=== PATIENT | female | born 1940 | race Caucasian/White ===

== ENCOUNTER 2016-04-27 00:31 | Inpatient (IN) | payer MEDICARE, BC ==
[2016-04-27 01:55] LABS: Anisocytosis Slight; Basophils % (A) 0 %; CH 21.6; CHCM 27.7; Eosinophils % (A) 0 %; HCT 22.9 % (34.0-46.0); HDW 3.64; Hypochromasia Marked; Luc # (Auto) 0.34; Luc % (Auto) 3; Lymphocytes # (A) 1.8 k/uL (1.0-4.8); Lymphocytes % (A) 13 %; MCH 22.4 pg (25.0-35.0); MCHC 28.7 g/dL (31.0-37.0); MCV 78.2 fL (80.0-100.0); Mean Platelet Volume 7.6; Microcytosis Slight; Monocytes # (A) 0.9 k/uL (0-1.0); Monocytes % (A) 7 %; Neutrophils # (A) 10.4 k/uL (1.3-7.7); Neutrophils % (A) 77 %; Poikilocytosis Slight; RBC 2.93 m/uL (3.80-5.40); RDW 16.9 % (11.5-15.5); WBC 13.5 k/uL (3.8-10.6); WBC (Perox) 13.64
[2016-04-27 02:03] LABS: HGB 6.6 gm/dL (11.4-16.0)
[2016-04-27 02:07] LABS: Calcium 8.1 mg/dL (8.4-10.2); Magnesium 1.7 mg/dL (1.6-2.3); Total Bilirubin 0.4 mg/dL (0.2-1.3); Total Protein 6.1 g/dL (6.3-8.2)
[2016-04-27 02:08] LABS: INR 1.9 (<1.1); Prothrombin Time 18.1 sec (9.0-12.0)
[2016-04-27 02:10] LABS: Partial Thromboplastin Time 21.7 sec (22.0-30.0)
[2016-04-27] MEDS ORDERED: NALOXONE 0.4 MG/ML 1 ML VIAL IV PRN (04:56)
[2016-04-27] MEDS ORDERED: ACETAMINOPHEN SUPPOSITORY 650 MG SUPP RECTAL PRN (04:56)
[2016-04-27] MEDS ORDERED: PHYTONADIONE ORAL 5 MG/5 ML ORAL.SYRG PO STA (05:03)
--- NOTE | 2016-04-27 05:03 | ED ---
SOB HPI - General Chief Complaint: Shortness of Breath Stated Complaint: low hemoglobin,ANISHA Time Seen by Provider: 04/27/16 00:47 Source: patient Mode of arrival: EMS Limitations: no limitations - History of Present Illness Initial Comments: This patient is 76-year-old woman who is transferred here from the [facility]. The patient had gone there earlier tonight to be evaluated for worsening shortness of breath and generalized fatigue. The patient had workup there that revealed the presence of some GI bleeding, significant anemia with hemoglobin 6.6, possibly of pneumonia. Patient was transferred here as there are no ICU beds available there. When I interview the patient she reports that she had been having some fevers and chills as well as shortness of breath. She denies chest pain which she did have an occasional nonproductive cough. The workup at the other hospital revealed the some leukocytosis with white count 17, 000, anemia with hemoglobin 6.1, and elevated INR 2.0, and lactic acidosis at 3.3. Case was reportedly discussed with her physician and she was transferred here to be admitted. Patient states that she feels minimally improved. Complaint: shortness of breath -: days(s) - Related Data Home Medications Medication Instructions Recorded Confirmed Atenolol [Tenormin] 25 mg PO DAILY 06/01/14 04/27/16 Benazepril HCl [Lotensin] 20 mg PO DAILY 06/01/14 04/27/16 Clopidogrel Bisulfate [Plavix] 75 mg PO DAILY 06/01/14 04/27/16 Insulin NPH Hum/Reg Insulin Hm 70 unit SQ HS 06/01/14 04/27/16 [NovoLIN 70-30 100 UNIT/ML VIAL] Insulin NPH Hum/Reg Insulin Hm 104 unit SQ AC-BRKFST 06/01/14 04/27/16 [NovoLIN 70-30 100 UNIT/ML VIAL] Simvastatin [Zocor] 20 mg PO DAILY 06/01/14 04/27/16 Verapamil HCl [Calan] 240 mg PO DAILY 06/01/14 04/27/16 Previous Rx's Medication Instructions Recorded Etodolac [Lodine] 400 mg PO BID #14 tablet 06/01/14 Allergies Allergy/AdvReac Type Severity Reaction Status Date / Time Penicillins Allergy Rash/Hives Verified 04/27/16 01:09 Review of Systems ROS Statement: Those systems with pertinent positive or pertinent negative responses have been documented in the HPI. ROS Other: All systems not noted in ROS Statement are negative. Constitutional: Reports: fever, chills ENT: Denies: throat pain Respiratory: Reports: cough, dyspnea. Denies: wheezes, hemoptysis Cardiovascular: Reports: dyspnea on exertion, edema. Denies: chest pain, palpitations, syncope Gastrointestinal: Reports: abdominal pain, melena. Denies: nausea, vomiting, diarrhea, constipation Genitourinary: Denies: dysuria, hematuria Musculoskeletal: Denies: back pain Skin: Denies: rash Neurological: Reports: weakness (Generalized). Denies: headache, numbness Hematological/Lymphatic: Denies: easy bleeding Past Medical History Past Medical History: Asthma, CVA/TIA, Diabetes Mellitus, Hyperlipidemia, Hypertension History of Any Multi-Drug Resistant Organisms: None Reported Past Surgical History: Back Surgery, Hysterectomy Additional Past Surgical History / Comment(s): cyst removed from breast Past Psychological History: No Psychological Hx Reported Smoking Status: Current every day smoker Past Alcohol Use History: None Reported Past Drug Use History: None Reported General Exam Limitations: no limitations General appearance: alert, in no apparent distress, obese Head exam: Present: atraumatic Eye exam: Present: normal appearance, other (Pallor). Absent: scleral icterus, conjunctival injection ENT exam: Present: mucous membranes dry Neck exam: Present: normal inspection Respiratory exam: Present: normal lung sounds bilaterally. Absent: respiratory distress, wheezes, rales, rhonchi Cardiovascular Exam: Present: regular rate, normal rhythm, normal heart sounds. Absent: systolic murmur, diastolic murmur, rubs, gallop GI/Abdominal exam: Present: soft. Absent: distended, tenderness, guarding, rebound, mass Extremities exam: Present: normal inspection, normal capillary refill, pedal edema. Absent: calf tenderness Back exam: Present: normal inspection. Absent: CVA tenderness (R), CVA tenderness (L) Neurological exam: Present: alert Skin exam: Present: warm, dry, intact, pallor. Absent: rash Course Vital Signs 04/27/16 04/27/16 04/27/16 00:35 02:45 03:00 Temperature 99.9 F H 98.7 F Pulse Rate 90 106 H 94 Pulse Rate [ Bilateral Radial] Respiratory 24 24 24 Rate Blood Pressure 138/65 122/49 109/53 Blood Pressure [Right Arm] O2 Sat by Pulse 97 97 96 Oximetry 04/27/16 04/27/16 04/27/16 04:03 04:18 04:33 Temperature 97.6 F 97.4 F L 97.5 F L Pulse Rate 86 92 93 Pulse Rate [ Bilateral Radial] Respiratory 20 24 22 Rate Blood Pressure 112/60 124/71 122/58 Blood Pressure [Right Arm] O2 Sat by Pulse 97 97 Oximetry 04/27/16 04/27/16 04/27/16 04:48 05:18 05:45 Temperature 97.4 F L 97.2 F L 97.7 F Pulse Rate 93 90 101 H Pulse Rate [ Bilateral Radial] Respiratory 22 22 22 Rate Blood Pressure 121/58 123/53 124/60 Blood Pressure [Right Arm] O2 Sat by Pulse 97 97 Oximetry 04/27/16 05:53 Temperature 97.5 F L Pulse Rate Pulse Rate [ 88 Bilateral Radial] Respiratory 16 Rate Blood Pressure Blood Pressure 147/63 [Right Arm] O2 Sat by Pulse 98 Oximetry Medical Decision Making - Medical Decision Making Patient 76-year-old woman transferred from outside hospital to be admitted for GI bleeding, anemia, and lactic acidosis. Case discussed with admitting physician as well as the professional nursing assistant on consultation. Patient to have transfusion. Also GI consultation and PPI. Given patient's GI bleed and anemia Coumadin held and vitamin K administered. - Lab Data Result diagrams: 04/27/16 01:40 04/27/16 01:40 Lab Results 04/27/16 04/27/16 04/27/16 Range/Units 01:40 01:40 01:40 WBC 13.5 H (3.8-10.6) k/uL RBC 2.93 L (3.80-5.40) m/uL Hgb 6.6 L* (11.4-16.0) gm/dL Hct 22.9 L (34.0-46.0) % MCV 78.2 L (80.0-100.0) fL MCH 22.4 L (25.0-35.0) pg MCHC 28.7 L (31.0-37.0) g/dL RDW 16.9 H (11.5-15.5) % Plt Count 279 (150-450) k/uL Neutrophils % 77 % Lymphocytes % 13 % Monocytes % 7 % Eosinophils % 0 % Basophils % 0 % Neutrophils # 10.4 H (1.3-7.7) k/uL Lymphocytes # 1.8 (1.0-4.8) k/uL Monocytes # 0.9 (0-1.0) k/uL Eosinophils # 0.0 (0-0.7) k/uL Basophils # 0.0 (0-0.2) k/uL Hypochromasia Marked Poikilocytosis Slight Anisocytosis Slight Microcytosis Slight PT (9.0-12.0) sec INR (<1.1) APTT (22.0-30.0) sec Sodium 139 (137-145) mmol/L Potassium 4.0 (3.5-5.1) mmol/L Chloride 99 (98-107) mmol/L Carbon Dioxide 28 (22-30) mmol/L Anion Gap 12 mmol/L BUN 20 H (7-17) mg/dL Creatinine 1.30 H (0.52-1.04) mg/dL Est GFR (MDRD) Af Amer 48 (>60 ml/min/1.73 sqM) Est GFR (MDRD) Non-Af 40 (>60 ml/min/1.73 sqM) Glucose 277 H (74-99) mg/dL Plasma Lactic Acid Good (0.7-2.0) mmol/L Calcium 8.1 L (8.4-10.2) mg/dL Magnesium 1.7 (1.6-2.3) mg/dL Total Bilirubin 0.4 (0.2-1.3) mg/dL AST 34 (14-36) U/L ALT 61 H (9-52) U/L Alkaline Phosphatase 67 (38-126) U/L Troponin I (0.000-0.034) ng/mL Total Protein 6.1 L (6.3-8.2) g/dL Albumin 3.1 L (3.5-5.0) g/dL Blood Type A Positive Blood Type Confirm Blood Type Recheck CABO Indicated Antibody Screen NEGATIVE Crossmatch See Detail Spec Expiration Date 04/30/2016 - 233904/27/16 04/27/16 04/27/16 Range/Units 01:40 01:40 01:40 WBC (3.8-10.6) k/uL RBC (3.80-5.40) m/uL Hgb (11.4-16.0) gm/dL Hct (34.0-46.0) % MCV (80.0-100.0) fL MCH (25.0-35.0) pg MCHC (31.0-37.0) g/dL RDW (11.5-15.5) % Plt Count (150-450) k/uL Neutrophils % % Lymphocytes % % Monocytes % % Eosinophils % % Basophils % % Neutrophils # (1.3-7.7) k/uL Lymphocytes # (1.0-4.8) k/uL Monocytes # (0-1.0) k/uL Eosinophils # (0-0.7) k/uL Basophils # (0-0.2) k/uL Hypochromasia Poikilocytosis Anisocytosis Microcytosis PT 18.1 H (9.0-12.0) sec INR 1.9 (<1.1) APTT 21.7 L (22.0-30.0) sec Sodium (137-145) mmol/L Potassium (3.5-5.1) mmol/L Chloride (98-107) mmol/L Carbon Dioxide (22-30) mmol/L Anion Gap mmol/L BUN (7-17) mg/dL Creatinine (0.52-1.04) mg/dL Est GFR (MDRD) Af Amer (>60 ml/min/1.73 sqM) Est GFR (MDRD) Non-Af (>60 ml/min/1.73 sqM) Glucose (74-99) mg/dL Plasma Lactic Acid Good 2.2 H* (0.7-2.0) mmol/L Calcium (8.4-10.2) mg/dL Magnesium (1.6-2.3) mg/dL Total Bilirubin (0.2-1.3) mg/dL AST (14-36) U/L ALT (9-52) U/L Alkaline Phosphatase (38-126) U/L Troponin I <0.012 (0.000-0.034) ng/mL Total Protein (6.3-8.2) g/dL Albumin (3.5-5.0) g/dL Blood Type Blood Type Confirm Blood Type Recheck Antibody Screen Crossmatch Spec Expiration Date 04/27/16 Range/Units 03:02 WBC (3.8-10.6) k/uL RBC (3.80-5.40) m/uL Hgb (11.4-16.0) gm/dL Hct (34.0-46.0) % MCV (80.0-100.0) fL MCH (25.0-35.0) pg MCHC (31.0-37.0) g/dL RDW (11.5-15.5) % Plt Count (150-450) k/uL Neutrophils % % Lymphocytes % % Monocytes % % Eosinophils % % Basophils % % Neutrophils # (1.3-7.7) k/uL Lymphocytes # (1.0-4.8) k/uL Monocytes # (0-1.0) k/uL Eosinophils # (0-0.7) k/uL Basophils # (0-0.2) k/uL Hypochromasia Poikilocytosis Anisocytosis Microcytosis PT (9.0-12.0) sec INR (<1.1) APTT (22.0-30.0) sec Sodium (137-145) mmol/L Potassium (3.5-5.1) mmol/L Chloride (98-107) mmol/L Carbon Dioxide (22-30) mmol/L Anion Gap mmol/L BUN (7-17) mg/dL Creatinine (0.52-1.04) mg/dL Est GFR (MDRD) Af Amer (>60 ml/min/1.73 sqM) Est GFR (MDRD) Non-Af (>60 ml/min/1.73 sqM) Glucose (74-99) mg/dL Plasma Lactic Acid Good (0.7-2.0) mmol/L Calcium (8.4-10.2) mg/dL Magnesium (1.6-2.3) mg/dL Total Bilirubin (0.2-1.3) mg/dL AST (14-36) U/L ALT (9-52) U/L Alkaline Phosphatase (38-126) U/L Troponin I (0.000-0.034) ng/mL Total Protein (6.3-8.2) g/dL Albumin (3.5-5.0) g/dL Blood Type Blood Type Confirm A Positive Blood Type Recheck Antibody Screen Crossmatch Spec Expiration Date - EKG Data -: EKG Interpreted by Me EKG shows normal: axis (Normal), intervals (Normal), QRS complexes (Low voltage QRS complex), ST-T waves When compared to previous EKG there are: other (EKG shows atrial fibrillation with a rate approximately 95 bpm) Disposition Clinical Impression: GI bleeding, Anemia, Lactic acidosis, Elevated INR Disposition: ADMITTED IP TO THIS HOSP Condition: Serious
[2016-04-27 06:06] LABS: Glucose,Whole Blood 222 mg/dL (75-99)
[2016-04-27] MEDS: INSULIN LISPRO (humaLOG) 300 UNIT/3 ML VIAL SQ SCH ×4 (07:03→20:17)
[2016-04-27] MEDS: SODIUM CHLORIDE 0.9% 1,000 ML IV SCH ×3 (07:03→20:17)
[2016-04-27 07:50] LABS: Appearance,Urine Clear (Clear); Bilirubin,Urine Negative (Negative); Glucose,Urine (UA) Negative (Negative); Ketones,Urine Negative (Negative); Leukocyte Esterase,Urine Negative (Negative); Nitrite,Urine Negative (Negative); Protein,Urine Trace (Negative); Specific Gravity,Urine 1.014 (1.001-1.035); UA Billing (MACRO vs. MICRO) CHEM; Urobilinogen,Urine <2.0 mg/dL (<2.0)
[2016-04-27 08:14] LABS: Anisocytosis Slight; CHCM 27.4; HCT 26.3 % (34.0-46.0); HDW 4.44; HGB 7.3 gm/dL (11.4-16.0); Hypochromasia Marked; MCH 22.4 pg (25.0-35.0); MCV 80.9 fL (80.0-100.0); Poikilocytosis Moderate; RBC 3.25 m/uL (3.80-5.40); RDW 16.1 % (11.5-15.5)
[2016-04-27 08:18] LABS: MCHC 27.7 g/dL (31.0-37.0)
[2016-04-27] MEDS ORDERED: LISINOPRIL 20 MG TAB PO SCH (09:00)
[2016-04-27] MEDS ORDERED: ATENOLOL 25 MG TAB PO SCH (09:00)
[2016-04-27] MEDS ORDERED: CLOPIDOGREL 75 MG TAB PO SCH (09:00)
[2016-04-27] MEDS ORDERED: VERAPAMIL SR 240 MG TABLET.ER PO SCH (09:00)
[2016-04-27] MEDS ORDERED: ATORVASTATIN 10 MG TAB PO SCH (09:00)
[2016-04-27] MEDS ORDERED: METOPROLOL SUCCINATE (ER) 100 MG TAB.ER.24H PO SCH (09:30)
--- NOTE | 2016-04-27 09:47 | P.CONS ---
History of Present Illness - Reason for Consult Consult date: 04/27/16 GI bleed anemia Requesting physician: Geoffrey Veliz - History of Present Illness 76-year-old female patient of Dr. Bland with a past medical history of diabetes mellitus, nicotine cigarette dependency, atrial fibrillation Coumadin monitoring , hyperlipidemia, hypertension, COPD O2 dependent 3 L, asthma, left hip stimulator, melanoma, and CVA/TIA. Presents with shortness of breath, mild mid sternal chest discomfort, and generalized fatigue with evidence of anemia hemoglobin 6.6. MCV 78. INR 1.9. BUN 20 creatinine 1.3. About 3 months ago she was advised to follow up with outpatient gastroenterology in regards to positive Hemoccult stool testing and anemia. She was recently evaluated at [facility] about 2 months ago in regards to anemia and underwent an EGD evaluation which she states was unremarkable. Last colonoscopy to her memory was about 4-5 years ago. She denies overt bleeding such as hematemesis, hematochezia, or melena. Denies excessive aspirin or NSAID usage. Intermittent lower crampy abdominal pain over the last few days with occasional dyspepsia. Upon review of previous medical records average hemoglobin range between 10-11 over the last 18 months. Review of Systems Constitutional: Denies fever, chills, sweats, weight gain, or loss. HEENT: Negative for migraines, blurred vision or loss, earaches, drainage, tinnitus, oral mucosal lesions, dysphagia, or odynophagia. CARDIAC: Atrial fibrillation. Cigarette dependency. Hyperlipidemia. Hypertension. Denies palpitations. Chest discomfort see HPI. RESPIRATORY: Asthma. COPD with home O2 dependent 3 L. shortness of breath see HPI, denies hemoptysis, cough, or sputum production. GI: See HPI for pertinent findings. : Negative for hematuria, urgency, frequency, polyuria, or dysuria. GYNc: Denies possibility of . Negative vaginal discharge. MUSCULOSKELETAL: Pain stimulator left hip. Negative for muscle aches, swelling , arthritis, and arthralgias. NEUROLOGIC: CVA-TIA.. ENDOCRINE: Negative for thyroid problems. SKIN: Melanoma 2. itching. PSYCHIATRIC: Negative history for depression and anxiety All systems: negative (See HPI) Past Medical History Past Medical History: Asthma, CVA/TIA, Diabetes Mellitus, Hyperlipidemia, Hypertension Additional Past Medical History / Comment(s): Afib. melanoma x 2. pain stimulator in L. hip. [place]IL[place] History of Any Multi-Drug Resistant Organisms: None Reported Past Surgical History: Back Surgery, Hysterectomy Additional Past Surgical History / Comment(s): cyst removed from breast Past Anesthesia/Blood Transfusion Reactions: No Reported Reaction Past Psychological History: No Psychological Hx Reported Smoking Status: Current every day smoker Past Alcohol Use History: None Reported Past Drug Use History: None Reported Medications and Allergies Home Medications Medication Instructions Recorded Confirmed Type ALPRAZolam [Xanax] 0.25 mg PO BID 04/27/16 04/27/16 History Albuterol Nebulized [Ventolin 2.5 mg INHALATION RT-QID 04/27/16 04/27/16 History Nebulized] Diltiazem Cd [Cardizem Cd] 240 mg PO DAILY 04/27/16 04/27/16 History Furosemide [Lasix] 20 mg PO PC-LUNCH 04/27/16 04/27/16 History Furosemide [Lasix] 40 mg PO DAILY 04/27/16 04/27/16 History Hydrocodone/Acetaminophen [Kennedy 1 tab PO BID PRN 04/27/16 04/27/16 History 10-325] Insulin Aspart [NovoLOG] 14 unit SQ AC-SUPPER 04/27/16 04/27/16 History Insulin Aspart [NovoLOG] 18 unit SQ AC-BID@0900,1300 04/27/16 04/27/16 History Insulin Detemir [Levemir] 23 unit SQ HS 04/27/16 04/27/16 History Insulin Detemir [Levemir] 53 unit SQ DAILY@0900 04/27/16 04/27/16 History Losartan Potassium [Cozaar] 50 mg PO HS 04/27/16 04/27/16 History Metoprolol Succinate [Toprol XL] 200 mg PO BID 04/27/16 04/27/16 History Montelukast Sodium [Singulair] 10 mg PO HS 04/27/16 04/27/16 History Pravastatin Sodium [Pravachol] 20 mg PO HS 04/27/16 04/27/16 History Warfarin Sodium [Coumadin] 2 mg PO HS 04/27/16 04/27/16 History Allergies Allergy/AdvReac Type Severity Reaction Status Date / Time Penicillins Allergy Rash/Hives Verified 04/27/16 01:09 Physical Exam Vitals: Vital Signs Temp Pulse Pulse Resp BP BP Pulse Ox 04/27/16 07:00 88 30 H 140/53 99 04/27/16 06:55 88 20 04/27/16 06:53 97.5 F L 97 20 140/53 04/27/16 06:50 103 H 28 H 140/53 98 04/27/16 06:40 90 18 140/53 98 04/27/16 06:30 88 21 147/63 98 04/27/16 06:20 100 27 H 147/63 99 04/27/16 06:10 147/63 96 04/27/16 06:04 116 H 04/27/16 05:53 97.5 F L 88 16 147/63 98 04/27/16 05:45 97.7 F 101 H 22 124/60 97 04/27/16 05:18 97.2 F L 90 22 123/53 Intake and Output 04/26/16 04/27/16 04/27/16 22:59 06:59 14:59 Intake Total 310 310 Output Total 125 Balance 310 185 Intake: Blood Product 310 310 Rc As-1 Unit 310 [id number] Output: Urine 125 Other: Weight 118.9 kg General appearance: The patient is alert, oriented, in no acute distress. HET: Head is normocephalic and atraumatic. Pupils are equal and reactive. Oropharynx is clear without lesions. Neck: Supple without lymphadenopathy. Trachea midline. Heart: S1 S2. . Lungs: No crackles or wheezes are heard. Diminished bilaterally bases. Abdomen: Soft, very mild bilateral lower abdominal discomfort upon palpation, nondistended with bowel sounds. No peritoneal signs. No palpable organomegaly or masses. Extremities: Normal skin color and turgor. No cyanosis, rash, ulceration, clubbing, or edema. Radial and pedal pulses are 2/4 bilaterally. Neurological: No focal deficits. Strength and sensation are grossly intact. Rectal: Nonthrombosed external tags. No palpable masses or visible blood on finger. Results CBC & Chem 7: 04/27/16 07:42 04/27/16 01:40 Labs: Abnormal Lab Results - Last 24 Hours (Table) 04/27/16 04/27/16 04/27/16 Range/Units 06:04 07:30 07:42 WBC 12.0 H (3.8-10.6) k/uL RBC 3.25 L (3.80-5.40) m/uL Hgb 7.3 L (11.4-16.0) gm/dL Hct 26.3 L (34.0-46.0) % MCH 22.4 L (25.0-35.0) pg MCHC 27.7 L (31.0-37.0) g/dL RDW 16.1 H (11.5-15.5) % POC Glucose (mg/dL) 222 H (75-99) mg/dL Urine Protein Trace H (Negative) Assessment and Plan (1) GI bleed Status: Acute (2) Symptomatic anemia Status: Acute (3) Acute blood loss anemia Narrative/Plan: Reported positive Hemoccult testing in the outpatient setting status post EGD evaluation 2 months ago at outside facility reported as normal. Status: Acute (4) COPD (chronic obstructive pulmonary disease) Status: Acute Plan: 1. Full liquid diet. Repeat PT/INR. Hemoccult testing. 2. We'll proceed with colonoscopy evaluation on , 04/29/2016 pending therapeutic INR. Possible capsule endoscopy based on colonoscopy findings. 3. Request pulmonary clearance for endoscopic evaluation. 4. Continue GI prophylaxis and monitoring of CBC. Thank you for this kind referral and the opportunity to participate in the care of your patient. This consultation was discussed with Dr. Mccarthy. The impression and plan of care have been directed as dictated.
--- NOTE | 2016-04-27 10:01 | XR ---
EXAMINATION TYPE: XR chest 1V portable DATE OF EXAM: 04/27/2016 9:55 AM COMPARISON: 04/26/2016 HISTORY: Shortness of breath TECHNIQUE: Single frontal view of the chest is obtained. FINDINGS: The heart is enlarged. Linear changes involving the lungs are suggestive of scar or atelec tasis. Atherosclerotic change of the aorta. No pneumothorax. Arthropathy of the right shoulder. Coars ened interstitium stable. Device overlying the thoracic spine noted. IMPRESSION: 1. Coarsened interstitium can be seen with chronic interstitial lung disease or pneumonitis. Mild jose ous congestion in the differential. 2. Stable cardiomegaly
[2016-04-27 10:10] LABS: Hemoglobin A1C 7.4 % (4.2-6.1)
[2016-04-27] MEDS ORDERED: Magnesium Replacement Protocol 1 EACH MISC MISCELLANE PRN (10:31)
[2016-04-27] MEDS ORDERED: Potassium Replacement Protocol 1 EACH MISC MISCELLANE PRN (10:31)
[2016-04-27] MEDS: PANTOPRAZOLE 40 MG/10 ML VIAL IV SCH (10:55)
--- NOTE | 2016-04-27 11:58 | P.CNPUL ---
History of Present Illness Consult date: 04/27/16 Requesting physician: Geoffrey Veliz Reason for consult: other (ICU management) Chief complaint: GI bleed and shortness of breath History of present illness: This is a 76-year-old female patient evaluated and examined today in the ICU. The patient was transferred to [facility] from [facility], due to no available ICU beds. The patient was worked up to have a GI bleed with significant anemia and possible pneumonia. The patient's lab at [facility] revealed hemoglobin was 6.1 and an INR of 2.0, lactic acid of 3.3. Upon arrival to [facility] her labs revealed a hemoglobin of 6.6 INR of 1.9 and a lactic acid of 2.2. The patient stated she had been having some subjective fevers, chills, intermittent nonproductive cough and shortness of breath. The patient has a past medical history of diabetes mellitus, nicotine cigarette dependency, atrial fibrillation with Coumadin, hyperlipidemia, hypertension, COPD, oxygen dependent of 3 L at home, asthma, melanoma, and CVA/ TIA. Upon examination the patient is sitting up in bed on 2 L of oxygen. She appears in no significant distress, she does state her coughing is significant and she takes albuterol updrafts at home which have just been restarted. She did receive 1 unit of packed red blood cells overnight and her repeat labs in the morning showed an improvement of her hemoglobin to 7.3. The patient is due for recheck of her labs at noon today. Review of Systems 14 point review of systems was completed and is negative other than what's noted in the HPI. Past Medical History Past Medical History: Asthma, CVA/TIA, Diabetes Mellitus, Hyperlipidemia, Hypertension Additional Past Medical History / Comment(s): Afib. melanoma x 2. pain stimulator in L. hip. [place] History of Any Multi-Drug Resistant Organisms: None Reported Past Surgical History: Back Surgery, Hysterectomy Additional Past Surgical History / Comment(s): cyst removed from breast Past Anesthesia/Blood Transfusion Reactions: No Reported Reaction Past Psychological History: No Psychological Hx Reported Smoking Status: Current every day smoker Past Alcohol Use History: None Reported Past Drug Use History: None Reported Medications and Allergies Home Medications Medication Instructions Recorded Confirmed Type ALPRAZolam [Xanax] 0.25 mg PO BID 04/27/16 04/27/16 History Albuterol Nebulized [Ventolin 2.5 mg INHALATION RT-QID 04/27/16 04/27/16 History Nebulized] Diltiazem Cd [Cardizem Cd] 240 mg PO DAILY 04/27/16 04/27/16 History Furosemide [Lasix] 20 mg PO PC-LUNCH 04/27/16 04/27/16 History Furosemide [Lasix] 40 mg PO DAILY 04/27/16 04/27/16 History Hydrocodone/Acetaminophen [[place] 1 tab PO BID PRN 04/27/16 04/27/16 History 10-325] Insulin Aspart [NovoLOG] 14 unit SQ AC-SUPPER 04/27/16 04/27/16 History Insulin Aspart [NovoLOG] 18 unit SQ AC-BID@0900,1300 04/27/16 04/27/16 History Insulin Detemir [Levemir] 23 unit SQ HS 04/27/16 04/27/16 History Insulin Detemir [Levemir] 53 unit SQ DAILY@0900 04/27/16 04/27/16 History Losartan Potassium [Cozaar] 50 mg PO HS 04/27/16 04/27/16 History Metoprolol Succinate [Toprol XL] 200 mg PO BID 04/27/16 04/27/16 History Montelukast Sodium [Singulair] 10 mg PO HS 04/27/16 04/27/16 History Pravastatin Sodium [Pravachol] 20 mg PO HS 04/27/16 04/27/16 History Warfarin Sodium [Coumadin] 2 mg PO HS 04/27/16 04/27/16 History Allergies Allergy/AdvReac Type Severity Reaction Status Date / Time Penicillins Allergy Rash/Hives Verified 04/27/16 01:09 Physical Exam Vitals: Vital Signs Temp Pulse Pulse Resp BP BP Pulse Ox 04/27/16 11:00 112 H 24 118/56 93 L 04/27/16 10:50 110 H 29 H 118/56 97 04/27/16 10:40 120 H 19 118/56 96 04/27/16 10:30 103 H 19 120/52 96 04/27/16 10:20 98 19 120/52 96 04/27/16 10:10 101 H 19 120/52 94 L 04/27/16 10:00 111 H 23 117/60 96 04/27/16 09:50 106 H 26 H 117/60 97 04/27/16 09:40 99 22 117/60 96 04/27/16 09:30 112 H 30 H 128/60 96 04/27/16 09:20 105 H 20 128/60 04/27/16 09:10 98 20 128/60 96 04/27/16 09:00 117 H 19 113/73 96 04/27/16 08:50 108 H 20 113/73 98 04/27/16 08:40 116 H 28 H 134/63 92 L 04/27/16 08:30 92 18 134/63 96 04/27/16 08:20 93 20 134/63 96 04/27/16 08:10 103 H 20 134/63 97 04/27/16 08:00 97.5 F L 93 24 130/69 93 L 04/27/16 07:50 106 H 23 130/69 96 04/27/16 07:40 98 19 130/69 97 04/27/16 07:30 93 19 119/51 96 04/27/16 07:20 82 19 119/51 97 04/27/16 07:10 95 24 119/51 94 L 04/27/16 07:00 88 30 H 140/53 99 04/27/16 06:55 88 20 04/27/16 06:53 97.5 F L 97 20 140/53 04/27/16 06:50 103 H 28 H 140/53 98 04/27/16 06:40 90 18 140/53 98 04/27/16 06:30 88 21 147/63 98 04/27/16 06:20 100 27 H 147/63 99 04/27/16 06:10 147/63 96 04/27/16 06:04 116 H 04/27/16 05:53 97.5 F L 88 16 147/63 98 04/27/16 05:45 97.7 F 101 H 22 124/60 97 04/27/16 05:18 97.2 F L 90 22 123/53 Intake and Output 04/26/16 04/27/16 04/27/16 22:59 06:59 14:59 Intake Total 310 510 Output Total 375 Balance 310 135 Intake: IV 200 Sodium Chloride 0.9% 1, 200 000 ml @ 125 mls/hr IV . Q8H [facility] Rx#:[id number] Blood Product 310 310 Rc As-1 Unit 310 [id number] Output: Urine 375 Other: Voiding Method Indwelling Catheter Weight 118.9 kg GENERAL EXAM: Alert, active, comfortable in no apparent distress. HEAD: Normocephalic. EYES: Normal reaction of pupils, equal size. NOSE: Clear with pink turbinates. THROAT: No erythema or exudates. NECK: No masses, no JVD. CHEST: No chest wall deformity. LUNGS: Equal air entry with wheezing and rhonchi noted throughout. CVS: S1 and S2 normal with no audible mumurs, regular rhythm. ABDOMEN: No hepatosplenomegaly, normal bowel sounds, no guarding or rigidity. EXTREMITIES: No edema noted, pedal pulses palpable. SKIN: No rashes CENTRAL NERVOUS SYSTEM: No focal deficits, tone is normal in all 4 extremities. Results - Laboratory Findings CBC and BMP: 04/27/16 07:42 04/27/16 01:40 PT/INR, D-dimer PT 18.1 sec (9.0-12.0) H 04/27/16 01:40 INR 1.9 (<1.1) 04/27/16 01:40 Abnormal lab findings: Abnormal Labs 04/27/16 04/27/16 04/27/16 06:04 07:30 07:42 WBC 12.0 H RBC 3.25 L Hgb 7.3 L Hct 26.3 L MCH 22.4 L MCHC 27.7 L RDW 16.1 H POC Glucose (mg/dL) 222 H Urine Protein Trace H Assessment and Plan Plan: Assessment GI bleed Symptomatic Anemia Acute blood loss anemia Lactic acidosis Elevated INR Acute exacerbation of COPD Obesity History of chronic moderate persistent asthma Diabetes mellitus Plan Medications have been reviewed and we will continue with current treatment. We will add budesonide to her aerosol bronchodilators. We will order a chest x- ray. Repeat labs to be drawn at noon. Continue to monitor for any active bleeding. Per staff the patient will undergo a lower endoscopy possibly on . The patient is hemodynamically stable, urine output is good.
[2016-04-27 12:19] LABS: INR 1.9 (<1.1)
[2016-04-27 12:31] LABS: Anisocytosis Slight; CH 22.3; CHCM 28.4; HCT 25.7 % (34.0-46.0); HDW 4.54; HGB 7.4 gm/dL (11.4-16.0); Hypochromasia Marked; MCH 22.8 pg (25.0-35.0); MCHC 28.9 g/dL (31.0-37.0); Mean Platelet Volume 8.5; Microcytosis Slight; Poikilocytosis Moderate; RBC 3.25 m/uL (3.80-5.40); RDW 16.7 % (11.5-15.5); WBC 11.6 k/uL (3.8-10.6)
[2016-04-27 12:56] LABS: Glucose,Whole Blood 227 mg/dL (75-99)
[2016-04-27] MEDS: ALBUTEROL NEBULIZED 2.5 MG/3 ML INHALATION PRN ×3 (13:00→19:14)
--- NOTE | 2016-04-27 16:20 | P.HPIM ---
History of Present Illness H&P Date: 04/27/16 Chief Complaint: Generalized weakness and shortness of breath This is a 76-year-old female with a very complex past medical history noted below who presented initially to an outside emergency room with generalized weakness and shortness of breath. Patient said that for the past couple of weeks she noted that her stool is been dark brown with no evidence of blood in it. She was also having some weakness for the past couple of days associated with shortness of breath. She described a nonproductive cough. She was evaluated in the emergency room and was found to have a fever of 102.0. Initial blood work showed hemoglobin of 6.6. X-ray was unremarkable. Urinalysis was negative. An influenza screen was negative. Patient remained hemodynamically stable. She was transferred to this hospital and was eventually admitted to the intensive care unit. She received 1 unit of blood this morning. She was seen and evaluated by the ferry captain and gastroenterology. Patient is doing fairly well right now. Review of Systems Review of system: 14 points review of systems were obtained and were negative except to what were mentioned in the HPI. Past Medical History Past Medical History: Asthma, CVA/TIA, Diabetes Mellitus, Hyperlipidemia, Hypertension Additional Past Medical History / Comment(s): Afib. melanoma x 2. pain stimulator in L. hip. [place] History of Any Multi-Drug Resistant Organisms: None Reported Past Surgical History: Back Surgery, Hysterectomy Additional Past Surgical History / Comment(s): cyst removed from breast Past Anesthesia/Blood Transfusion Reactions: No Reported Reaction Past Psychological History: No Psychological Hx Reported Smoking Status: Current every day smoker Past Alcohol Use History: None Reported Past Drug Use History: None Reported Medications and Allergies Home Medications Medication Instructions Recorded Confirmed Type ALPRAZolam [Xanax] 0.25 mg PO BID 04/27/16 04/27/16 History Albuterol Nebulized [Ventolin 2.5 mg INHALATION RT-QID 04/27/16 04/27/16 History Nebulized] Diltiazem Cd [Cardizem Cd] 240 mg PO DAILY 04/27/16 04/27/16 History Furosemide [Lasix] 20 mg PO PC-LUNCH 04/27/16 04/27/16 History Furosemide [Lasix] 40 mg PO DAILY 04/27/16 04/27/16 History Hydrocodone/Acetaminophen [[place] 1 tab PO BID PRN 04/27/16 04/27/16 History 10-325] Insulin Aspart [NovoLOG] 14 unit SQ AC-SUPPER 04/27/16 04/27/16 History Insulin Aspart [NovoLOG] 18 unit SQ AC-BID@0900,1300 04/27/16 04/27/16 History Insulin Detemir [Levemir] 23 unit SQ HS 04/27/16 04/27/16 History Insulin Detemir [Levemir] 53 unit SQ DAILY@0900 04/27/16 04/27/16 History Losartan Potassium [Cozaar] 50 mg PO HS 04/27/16 04/27/16 History Metoprolol Succinate [Toprol XL] 200 mg PO BID 04/27/16 04/27/16 History Montelukast Sodium [Singulair] 10 mg PO HS 04/27/16 04/27/16 History Pravastatin Sodium [Pravachol] 20 mg PO HS 04/27/16 04/27/16 History Warfarin Sodium [Coumadin] 2 mg PO HS 04/27/16 04/27/16 History Allergies Allergy/AdvReac Type Severity Reaction Status Date / Time Penicillins Allergy Rash/Hives Verified 04/27/16 01:09 Physical Exam Vitals: Vital Signs Temp Pulse Pulse Resp BP BP Pulse Ox 04/27/16 14:30 68 20 130/72 94 L 04/27/16 14:00 104 H 20 130/72 97 04/27/16 13:30 93 20 130/72 98 04/27/16 13:11 123 H 04/27/16 13:01 118 H 04/27/16 13:00 95 18 113/73 97 04/27/16 12:30 89 17 113/73 96 04/27/16 12:00 98.1 F 120 H 18 109/68 98 04/27/16 11:30 96 21 135/79 97 04/27/16 11:00 112 H 24 118/56 93 L 04/27/16 10:50 110 H 29 H 118/56 97 04/27/16 10:40 120 H 19 118/56 96 04/27/16 10:30 103 H 19 120/52 96 04/27/16 10:20 98 19 120/52 96 04/27/16 10:10 101 H 19 120/52 94 L 04/27/16 10:00 111 H 23 117/60 96 04/27/16 09:50 106 H 26 H 117/60 97 04/27/16 09:40 99 22 117/60 96 04/27/16 09:30 112 H 30 H 128/60 96 04/27/16 09:20 105 H 20 128/60 04/27/16 09:10 98 20 128/60 96 04/27/16 09:00 117 H 19 113/73 96 04/27/16 08:50 108 H 20 113/73 98 04/27/16 08:40 116 H 28 H 134/63 92 L 04/27/16 08:30 92 18 134/63 96 04/27/16 08:20 93 20 134/63 96 04/27/16 08:10 103 H 20 134/63 97 04/27/16 08:00 97.5 F L 93 24 130/69 93 L 04/27/16 07:50 106 H 23 130/69 96 04/27/16 07:40 98 19 130/69 97 04/27/16 07:30 93 19 119/51 96 04/27/16 07:20 82 19 119/51 97 04/27/16 07:10 95 24 119/51 94 L 04/27/16 07:00 88 30 H 140/53 99 04/27/16 06:55 88 20 04/27/16 06:53 97.5 F L 97 20 140/53 04/27/16 06:50 103 H 28 H 140/53 98 04/27/16 06:40 90 18 140/53 98 04/27/16 06:30 88 21 147/63 98 04/27/16 06:20 100 27 H 147/63 99 04/27/16 06:10 147/63 96 04/27/16 06:04 116 H 04/27/16 05:53 97.5 F L 88 16 147/63 98 04/27/16 05:45 97.7 F 101 H 22 124/60 97 04/27/16 05:18 97.2 F L 90 22 123/53 Intake and Output 04/27/16 04/27/16 04/27/16 06:59 14:59 22:59 Intake Total 310 660 Output Total 675 Balance 310 -15 Intake: IV 350 Sodium Chloride 0.9% 1, 350 000 ml @ 125 mls/hr IV . Q8H [facility] Rx#:[id number] Blood Product 310 310 Rc As-1 Unit 310 [id number] Output: Urine 675 Other: Voiding Method Indwelling Catheter Weight 118.9 kg 118.9 kg Patient Weight 04/28/16 06:59 Weight 118.9 kg General: The patient is awake and alert, in no distress, and does not appear acutely ill. Eye: extra-ocular movements are intact; there is normal conjunctiva bilaterally. . Neck: The neck is supple, there is no tenderness or JVD. Cardiovascular: Normal S1-S2, no S3-S4, no murmurs. Respiratory: Lungs are slightly diminished with very mild end expiratory wheezing Gastrointestinal: Abdomen is soft, nontender, nondistended, with no organomegaly. . Musculoskeletal: Normal ROM, no tenderness, There is no pedal edema. Neurological: There are no obvious motor or sensory deficits. Speech is normal. Skin: Skin is warm and dry and no rashes or lesions are noted. Results CBC & Chem 7: 04/27/16 12:00 04/27/16 01:40 Labs: Abnormal Lab Results - Last 24 Hours (Table) 04/27/16 04/27/16 04/27/16 Range/Units 06:04 07:30 07:42 WBC 12.0 H (3.8-10.6) k/uL RBC 3.25 L (3.80-5.40) m/uL Hgb 7.3 L (11.4-16.0) gm/dL Hct 26.3 L (34.0-46.0) % MCV (80.0-100.0) fL MCH 22.4 L (25.0-35.0) pg MCHC 27.7 L (31.0-37.0) g/dL RDW 16.1 H (11.5-15.5) % PT (9.0-12.0) sec POC Glucose (mg/dL) 222 H (75-99) mg/dL Urine Protein Trace H (Negative) 04/27/16 04/27/16 04/27/16 Range/Units 11:36 12:00 12:54 WBC 11.6 H (3.8-10.6) k/uL RBC 3.25 L (3.80-5.40) m/uL Hgb 7.4 L (11.4-16.0) gm/dL Hct 25.7 L (34.0-46.0) % MCV 79.0 L (80.0-100.0) fL MCH 22.8 L (25.0-35.0) pg MCHC 28.9 L (31.0-37.0) g/dL RDW 16.7 H (11.5-15.5) % PT 18.0 H (9.0-12.0) sec POC Glucose (mg/dL) 227 H (75-99) mg/dL Urine Protein (Negative) Microbiology - Last 24 Hours (Table) 04/27/16 07:30 Urine Culture - Preliminary Urine,Catheterized Thrombosis Risk Factor Assmnt - Choose All That Apply Any of the Below Risk Factors Present?: Yes Each Factor Represents 1 point: Abnormal pulmonary function (COPD), Medical pt on bed rest Other Risk Factors: Yes Each Risk Factor Represents 3 Points: Age 75 years or older Other congenital or acquired thrombophilia - If yes, enter type in comment: No Thrombosis Risk Factor Assessment Total Risk Factor Score: 5 Thrombosis Risk Factor Assessment Level: High Risk Assessment and Plan Plan: 1. Acute symptomatic anemia secondary to chronic blood loss and suspected lower GI bleed. Patient received 1 unit of PRBC. She had an EGD last month during her last hospitalization at [facility] that was unremarkable. She was seen and evaluated by gastroenterology. Plan for colonoscopy on . 2. Systemic inflammatory response syndrome with no evidence of underlying infection. We will continue to monitor closely. Continue supportive care. 3. Acute COPD exacerbation seen and evaluated by pulmonology. Continue bronchodilator and inhaled steroids 4. Paroxysmal atrial fibrillation on anticoagulation with Coumadin: Currently on hold awaiting further evaluation of underlying anemia 5. Essential hypertension: Blood pressure well-controlled Continue ICU monitoring. Supportive care. Repeat lab work in the morning. Hemoglobin appears stable. Transfuse as needed for hemoglobin below 7. Repeat lab work in the morning.
[2016-04-27] MEDS: HYDROcodone/APAP 10-325MG 1 EACH TAB PO PRN (16:56)
[2016-04-27 17:04] LABS: Glucose,Whole Blood 311 mg/dL (75-99)
[2016-04-27 17:04] LABS: Glucose,Whole Blood 318 mg/dL (75-99)
[2016-04-27] MEDS: BUDESONIDE 1 MG/2 ML NEBU INHALATION SCH (19:14)
[2016-04-27 20:13] LABS: Glucose,Whole Blood 304 mg/dL (75-99)
[2016-04-27] MEDS: PRAVASTATIN SODIUM 20 MG TAB PO SCH (20:17)
[2016-04-27] MEDS: ALPRAZolam 0.25 MG TAB PO SCH (20:17)
[2016-04-27] MEDS: INSULIN DETEMIR 100 UNIT/ML 10 ML VIAL SQ SCH (20:17)
[2016-04-27 20:43] LABS: Anisocytosis Slight; Basophils % (A) 0 %; CHCM 27.9; Eosinophils % (A) 0 %; HCT 24.4 % (34.0-46.0); HDW 4.55; Hypochromasia Marked; Luc # (Auto) 0.42; Luc % (Auto) 3; Lymphocytes # (A) 2.1 k/uL (1.0-4.8); Lymphocytes % (A) 17 %; MCH 22.5 pg (25.0-35.0); MCHC 28.4 g/dL (31.0-37.0); MCV 79.3 fL (80.0-100.0); Mean Platelet Volume 8.6; Microcytosis Slight; Monocytes # (A) 0.9 k/uL (0-1.0); Monocytes % (A) 7 %; Neutrophils # (A) 9.4 k/uL (1.3-7.7); Neutrophils % (A) 73 %; Poikilocytosis Moderate; RBC 3.07 m/uL (3.80-5.40); RDW 16.7 % (11.5-15.5); WBC 12.9 k/uL (3.8-10.6); WBC (Perox) 12.09
[2016-04-27 20:46] LABS: HGB 6.9 gm/dL (11.4-16.0)
[2016-04-28 04:59] LABS: Anisocytosis Slight; Basophils % (A) 0 %; CH 23.1; CHCM 28.6; Eosinophils % (A) 0 %; HDW 4.87; Hypochromasia Marked; Luc # (Auto) 0.33; Luc % (Auto) 3; Lymphocytes # (A) 1.6 k/uL (1.0-4.8); Lymphocytes % (A) 14 %; MCH 23.2 pg (25.0-35.0); MCHC 28.5 g/dL (31.0-37.0); MCV 81.2 fL (80.0-100.0); Mean Platelet Volume 8.4; Monocytes # (A) 0.7 k/uL (0-1.0); Monocytes % (A) 6 %; Neutrophils # (A) 8.4 k/uL (1.3-7.7); Neutrophils % (A) 76 %; Poikilocytosis Marked; RBC 3.45 m/uL (3.80-5.40); RDW 16.8 % (11.5-15.5); WBC 11.1 k/uL (3.8-10.6); WBC (Perox) 11.82
[2016-04-28 05:05] LABS: ALT 51 U/L (9-52); AST 18 U/L (14-36); Alkaline Phosphatase 67 U/L (38-126); Anion Gap 6 mmol/L; Blood Urea Nitrogen 12 mg/dL (7-17); Calcium 8.5 mg/dL (8.4-10.2); Carbon Dioxide 29 mmol/L (22-30); Chloride 103 mmol/L (98-107); Glucose 246 mg/dL (74-99); Magnesium 1.9 mg/dL (1.6-2.3); Non-African American GFR(MDRD) >60 (>60 ml/min/1.73 sqM); Phosphorous 3.6 mg/dL (2.5-4.5); Potassium 4.5 mmol/L (3.5-5.1); Sodium 138 mmol/L (137-145); Total Bilirubin 0.6 mg/dL (0.2-1.3); Total Protein 5.5 g/dL (6.3-8.2)
[2016-04-28 05:18] LABS: INR 1.5 (<1.1); Prothrombin Time 14.6 sec (9.0-12.0)
[2016-04-28] MEDS: MAGNESIUM SULFATE-D5W PMX 1 GM in DEXTROSE/WATER 1 100ML.BAG IVPB SCH ×2 (06:12→07:43)
[2016-04-28 07:25] LABS: Glucose,Whole Blood 292 mg/dL (75-99)
[2016-04-28] MEDS: INSULIN LISPRO (humaLOG) 300 UNIT/3 ML VIAL SQ SCH ×6 (07:39→21:25)
[2016-04-28] MEDS: DILTIAZEM CD 240 MG CAP.ER.24H PO SCH (07:44)
[2016-04-28] MEDS: PANTOPRAZOLE 40 MG/10 ML VIAL IV SCH (07:44)
[2016-04-28] MEDS: METOPROLOL SUCCINATE (ER) 100 MG TAB.ER.24H PO SCH (07:44)
[2016-04-28] MEDS: ALPRAZolam 0.25 MG TAB PO SCH (07:49)
[2016-04-28] MEDS: BUDESONIDE 1 MG/2 ML NEBU INHALATION SCH ×2 (07:56→21:05)
[2016-04-28] MEDS: ALBUTEROL NEBULIZED 2.5 MG/3 ML INHALATION PRN ×3 (07:56→21:05)
[2016-04-28] MEDS ORDERED: BISACODYL 5 MG TABLET.DR PO STA (08:52)
--- NOTE | 2016-04-28 08:55 | P.PN ---
Subjective Principal diagnosis: GI bleed anemia 76-year-old female with symptomatic anemia. No episodes of hematemesis hematochezia melena since admission. INR 1.5. Coumadin on hold. Recent outpatient Hemoccult testing positive. Recent EGD at outside facility 2 months ago unremarkable. Afebrile. Mild lower abdominal discomfort. Objective - Vital Signs Vital signs: Vital Signs Temp 98.1 F 04/28/16 08:00 Pulse 95 04/28/16 08:06 Resp 22 04/28/16 08:00 BP 139/72 04/28/16 08:00 Pulse Ox 100 04/28/16 08:00 Intake & Output 04/27/16 04/28/16 04/28/16 18:59 06:59 18:59 Intake Total 1410 1560 150 Output Total 1175 1000 80 Balance 235 560 70 Weight 118.9 kg 121.2 kg Intake: IV 600 600 50 Sodium Chloride 0.9% 1, 600 600 000 ml @ 125 mls/hr IV . Q8H [facility] Rx#:[id number] Sodium Chloride 0.9% 1, 50 000 ml @ 50 mls/hr IV . Q20H [facility] Rx#:[id number] Intake, IV Titration 100 100 Amount Magnesium Sulfate-D5w Pmx 100 100 1 gm In Dextrose/Water 1 100ml.bag @ 100 mls/hr IVPB Q1H [facility] Rx#: [id number] Oral 500 240 Blood Product 310 620 Rc As-1 Unit 310 [id number] Output: Urine 1175 1000 80 Other: Voiding Method Indwelling Catheter Indwelling Catheter Indwelling Catheter - Exam General appearance: The patient is alert, oriented, in no acute distress. HET: Head is normocephalic and atraumatic. Pupils are equal and reactive. Oropharynx is clear without lesions. Neck: Supple without lymphadenopathy. Trachea midline. Heart: S1 S2. Lungs: No diminished bases bilaterally heard. Abdomen: Soft, nontender, nondistended with bowel sounds. No peritoneal signs. No palpable organomegaly or masses. Extremities: Normal skin color and turgor. No cyanosis, rash, ulceration, clubbing, or edema. Radial and pedal pulses are 2/4 bilaterally. Neurological: No focal deficits. Strength and sensation are grossly intact. - Labs CBC & Chem 7: 04/28/16 04:32 03/08/17 04:32 Labs: Abnormal Lab Results - Last 24 Hours (Table) 04/27/16 04/27/16 04/27/16 Range/Units 11:36 12:00 12:54 WBC 11.6 H (3.8-10.6) k/uL RBC 3.25 L (3.80-5.40) m/uL Hgb 7.4 L (11.4-16.0) gm/dL Hct 25.7 L (34.0-46.0) % MCV 79.0 L (80.0-100.0) fL MCH 22.8 L (25.0-35.0) pg MCHC 28.9 L (31.0-37.0) g/dL RDW 16.7 H (11.5-15.5) % Neutrophils # (1.3-7.7) k/uL PT 18.0 H (9.0-12.0) sec Glucose (74-99) mg/dL POC Glucose (mg/dL) 227 H (75-99) mg/dL Total Protein (6.3-8.2) g/dL Albumin (3.5-5.0) g/dL 04/27/16 04/27/16 04/27/16 Range/Units 17:00 17:02 20:12 WBC (3.8-10.6) k/uL RBC (3.80-5.40) m/uL Hgb (11.4-16.0) gm/dL Hct (34.0-46.0) % MCV (80.0-100.0) fL MCH (25.0-35.0) pg MCHC (31.0-37.0) g/dL RDW (11.5-15.5) % Neutrophils # (1.3-7.7) k/uL PT (9.0-12.0) sec Glucose (74-99) mg/dL POC Glucose (mg/dL) 311 H 318 H 304 H (75-99) mg/dL Total Protein (6.3-8.2) g/dL Albumin (3.5-5.0) g/dL 04/27/16 04/28/16 04/28/16 Range/Units 20:13 04:32 04:32 WBC 12.9 H 11.1 H (3.8-10.6) k/uL RBC 3.07 L 3.45 L (3.80-5.40) m/uL Hgb 6.9 L* 8.0 L (11.4-16.0) gm/dL Hct 24.4 L 28.0 L (34.0-46.0) % MCV 79.3 L (80.0-100.0) fL MCH 22.5 L 23.2 L (25.0-35.0) pg MCHC 28.4 L 28.5 L (31.0-37.0) g/dL RDW 16.7 H 16.8 H (11.5-15.5) % Neutrophils # 9.4 H 8.4 H (1.3-7.7) k/uL PT 14.6 H (9.0-12.0) sec Glucose (74-99) mg/dL POC Glucose (mg/dL) (75-99) mg/dL Total Protein (6.3-8.2) g/dL Albumin (3.5-5.0) g/dL 04/28/16 04/28/16 Range/Units 04:32 07:23 WBC (3.8-10.6) k/uL RBC (3.80-5.40) m/uL Hgb (11.4-16.0) gm/dL Hct (34.0-46.0) % MCV (80.0-100.0) fL MCH (25.0-35.0) pg MCHC (31.0-37.0) g/dL RDW (11.5-15.5) % Neutrophils # (1.3-7.7) k/uL PT (9.0-12.0) sec Glucose 246 H (74-99) mg/dL POC Glucose (mg/dL) 292 H (75-99) mg/dL Total Protein 5.5 L (6.3-8.2) g/dL Albumin 2.7 L (3.5-5.0) g/dL Microbiology - Last 24 Hours (Table) 04/27/16 07:30 Urine Culture - Preliminary Urine,Catheterized Assessment and Plan (1) GI bleed Status: Acute (2) Symptomatic anemia Status: Acute (3) Acute blood loss anemia Narrative/Plan: Reported positive Hemoccult testing in the outpatient setting status post EGD evaluation 2 months ago at outside facility reported as normal. Status: Acute (4) COPD (chronic obstructive pulmonary disease) Status: Acute Plan: 1. Clear liquid diet. Nothing by mouth after midnight 2. We'll proceed with colonoscopy evaluation on , 04/29/2016. Possible capsule endoscopy based on colonoscopy findings. 3. Continue GI prophylaxis and monitoring of CBC. The book packer has discussed the risks, benefits and alternative therapies for the above-mentioned procedure and for both sedation/analgesia as well as necessary blood product administration, if indicated, as they pertain to this patient. The patient has indicated understanding and acceptance of the risks and procedures discussed. Assessment and plan of care discussed with Dr. Mccarthy
[2016-04-28 10:54] LABS: Anisocytosis Slight; CH 23.2; CHCM 28.5; HCT 29.4 % (34.0-46.0); HDW 4.82; HGB 8.3 gm/dL (11.4-16.0); Hypochromasia Marked; MCH 23.2 pg (25.0-35.0); MCHC 28.4 g/dL (31.0-37.0); MCV 81.9 fL (80.0-100.0); Mean Platelet Volume 8.7; Poikilocytosis Marked; RBC 3.59 m/uL (3.80-5.40); RDW 16.8 % (11.5-15.5); WBC 15.3 k/uL (3.8-10.6)
[2016-04-28 11:53] LABS: Glucose,Whole Blood 340 mg/dL (75-99)
[2016-04-28] MEDS: HYDROcodone/APAP 10-325MG 1 EACH TAB PO PRN ×2 (11:55→21:00)
--- NOTE | 2016-04-28 13:51 | P.PN ---
Subjective This is a 76-year-old female patient evaluated and examined today in the ICU. Patient initially had a hemoglobin of 6.1 and an INR of 2.0 lactic acid of 3.3 at [facility], the patient was then transferred to [facility]. Initial labs upon arrival were hemoglobin of 6.6, INR of 1.9, and a lactic acid of 2.2. The patient stated she had been having some subjective fevers at home with chills and intermittent nonproductive cough with shortness of breath. Since being here [facility] the patient has received 2 units of packed red blood cells for which she has responded well and today's labs reveal a hemoglobin of 8. The patient has never showed any evidence of an active bleed. The patient is supposed to undergo a colonoscopy procedure tomorrow 04/29/16. With a possible capsule endoscopy based on findings. Upon evaluation today the patient is resting up in bed in no distress. The patient is currently using 2 L of oxygen, she states she does have a productive cough with clear to white sputum. Patient states that the [employer] seem to be helping her significantly. The patient does have a diagnosis of obstructive sleep apnea and family has brought in her home BiPAP machine. Objective - Vital Signs Vital signs: Vital Signs Temp 98.1 F 04/28/16 08:00 Pulse 126 H 04/28/16 09:00 Resp 21 04/28/16 09:00 BP 124/52 04/28/16 09:00 Pulse Ox 94 L 04/28/16 09:00 Intake & Output 04/27/16 04/28/16 04/28/16 18:59 06:59 18:59 Intake Total 1410 1560 700 Output Total 1175 1000 160 Balance 235 560 540 Weight 118.9 kg 121.2 kg Intake: IV 600 600 100 Sodium Chloride 0.9% 1, 600 600 000 ml @ 125 mls/hr IV . Q8H SHARONDA Rx#:[id number] Sodium Chloride 0.9% 1, 100 000 ml @ 50 mls/hr IV . Q20H SHARONDA Rx#:[id number] Intake, IV Titration 100 100 Amount Magnesium Sulfate-D5w Pmx 100 100 1 gm In Dextrose/Water 1 100ml.bag @ 100 mls/hr IVPB Q1H SHARONDA Rx#: [id number] Oral 500 240 500 Blood Product 310 620 Rc As-1 Unit 310 [id number] Output: Urine 1175 1000 160 Other: Voiding Method Indwelling Catheter Indwelling Catheter Indwelling Catheter - Exam GENERAL EXAM: Alert, active, comfortable in no apparent distress. HEAD: Normocephalic. EYES: Normal reaction of pupils, equal size. NOSE: Clear with pink turbinates. THROAT: No erythema or exudates. NECK: No masses, no JVD. CHEST: No chest wall deformity. LUNGS: Equal air entry with no crackles, wheeze, rhonchi or dullness. Bases are diminished bilaterally CVS: S1 and S2 normal with no audible mumurs, regular rhythm. ABDOMEN: No hepatosplenomegaly, normal bowel sounds, no guarding or rigidity. EXTREMITIES: No edema noted, pedal pulses palpable. SKIN: No rashes CENTRAL NERVOUS SYSTEM: No focal deficits, tone is normal in all 4 extremities. - Labs CBC & Chem 7: 04/28/16 10:43 04/28/16 04:32 Labs: Abnormal Lab Results - Last 24 Hours (Table) 04/27/16 04/27/16 04/27/16 Range/Units 11:36 12:00 12:54 WBC 11.6 H (3.8-10.6) k/uL RBC 3.25 L (3.80-5.40) m/uL Hgb 7.4 L (11.4-16.0) gm/dL Hct 25.7 L (34.0-46.0) % MCV 79.0 L (80.0-100.0) fL MCH 22.8 L (25.0-35.0) pg MCHC 28.9 L (31.0-37.0) g/dL RDW 16.7 H (11.5-15.5) % Neutrophils # (1.3-7.7) k/uL PT 18.0 H (9.0-12.0) sec Glucose (74-99) mg/dL POC Glucose (mg/dL) 227 H (75-99) mg/dL Total Protein (6.3-8.2) g/dL Albumin (3.5-5.0) g/dL 04/27/16 04/27/16 04/27/16 Range/Units 17:00 17:02 20:12 WBC (3.8-10.6) k/uL RBC (3.80-5.40) m/uL Hgb (11.4-16.0) gm/dL Hct (34.0-46.0) % MCV (80.0-100.0) fL MCH (25.0-35.0) pg MCHC (31.0-37.0) g/dL RDW (11.5-15.5) % Neutrophils # (1.3-7.7) k/uL PT (9.0-12.0) sec Glucose (74-99) mg/dL POC Glucose (mg/dL) 311 H 318 H 304 H (75-99) mg/dL Total Protein (6.3-8.2) g/dL Albumin (3.5-5.0) g/dL 04/27/16 04/28/16 04/28/16 Range/Units 20:13 04:32 04:32 WBC 12.9 H 11.1 H (3.8-10.6) k/uL RBC 3.07 L 3.45 L (3.80-5.40) m/uL Hgb 6.9 L* 8.0 L (11.4-16.0) gm/dL Hct 24.4 L 28.0 L (34.0-46.0) % MCV 79.3 L (80.0-100.0) fL MCH 22.5 L 23.2 L (25.0-35.0) pg MCHC 28.4 L 28.5 L (31.0-37.0) g/dL RDW 16.7 H 16.8 H (11.5-15.5) % Neutrophils # 9.4 H 8.4 H (1.3-7.7) k/uL PT 14.6 H (9.0-12.0) sec Glucose (74-99) mg/dL POC Glucose (mg/dL) (75-99) mg/dL Total Protein (6.3-8.2) g/dL Albumin (3.5-5.0) g/dL 04/28/16 04/28/16 Range/Units 04:32 07:23 WBC (3.8-10.6) k/uL RBC (3.80-5.40) m/uL Hgb (11.4-16.0) gm/dL Hct (34.0-46.0) % MCV (80.0-100.0) fL MCH (25.0-35.0) pg MCHC (31.0-37.0) g/dL RDW (11.5-15.5) % Neutrophils # (1.3-7.7) k/uL PT (9.0-12.0) sec Glucose 246 H (74-99) mg/dL POC Glucose (mg/dL) 292 H (75-99) mg/dL Total Protein 5.5 L (6.3-8.2) g/dL Albumin 2.7 L (3.5-5.0) g/dL Microbiology - Last 24 Hours (Table) 04/27/16 07:30 Urine Culture - Preliminary Urine,Catheterized Assessment and Plan Plan: Assessment GI bleed Symptomatic Anemia Acute blood loss anemia Lactic acidosis sepsis Elevated INR Acute exacerbation of COPD Obesity History of chronic moderate persistent asthma Diabetes mellitus Obstructive sleep apnea Plan Medications have been reviewed and we will continue with current treatment. Patient to use home BiPAP at night. Chest x-ray reviewed, we will obtain a new chest x-ray tomorrow. We'll start the patient on Rocephin for sepsis. Continue with current nebulizer treatments. Continue to monitor for any active bleeding. Patient will undergo a lower endoscopy on . The patient is hemodynamically stable, urine output is good. We will continue to monitor labs and adjust treatment as necessary. I performed an examination of the patient and discussed their management with the nurse practitioner. I have reviewed the nurse practitioner's note and agree with the documented findings and plan of care.
[2016-04-28] MEDS ORDERED: PEG 3350-NA SULF,BICARB,CL/KCL 4,000 ML BOTTLE PO ONE (15:00)
[2016-04-28] MEDS: SODIUM CHLORIDE 0.9% 1,000 ML IV SCH (16:38)
--- NOTE | 2016-04-28 16:42 | P.PN ---
Subjective Patient is having worsening cough and now she said that her cough is productive of clear and yellowish sputum. No documented fever. Worsening leukocytosis. Objective - Vital Signs Vital signs: Vital Signs Temp 99.1 F 04/28/16 15:00 Pulse 100 04/28/16 15:00 Resp 24 04/28/16 15:13 BP 138/76 04/28/16 15:00 Pulse Ox 93 L 04/28/16 15:00 Intake & Output 04/27/16 04/28/16 04/28/16 18:59 06:59 18:59 Intake Total 1410 1560 1140 Output Total 1175 1000 685 Balance 235 560 455 Weight 118.9 kg 121.2 kg Intake: IV 600 600 300 Sodium Chloride 0.9% 1, 600 600 000 ml @ 125 mls/hr IV . Q8H SHARONDA Rx#:[id number] Sodium Chloride 0.9% 1, 300 000 ml @ 50 mls/hr IV . Q20H SHARONDA Rx#:[id number] Intake, IV Titration 100 100 Amount Magnesium Sulfate-D5w Pmx 100 100 1 gm In Dextrose/Water 1 100ml.bag @ 100 mls/hr IVPB Q1H SHARONDA Rx#: [id number] Oral 500 240 740 Blood Product 310 620 Rc As-1 Unit 310 [id number] Output: Urine 1175 1000 685 Other: Voiding Method Indwelling Catheter Indwelling Catheter Bedside Commode # Bowel Movements 0 - Exam General: The patient is awake and alert, in no distress Eye: there is normal conjunctiva bilaterally. Neck: The neck is supple, there is no JVD. Cardiovascular: Normal S1-S2, no S3-S4, no murmurs. Respiratory: Lungs clear to auscultation bilaterally Gastrointestinal: Abdomen is soft, nontender Musculoskeletal: There is no pedal edema. Neurological:. Speech is normal. Skin: Skin is warm and dry - Labs CBC & Chem 7: 04/28/16 10:43 04/28/16 04:32 Labs: Abnormal Lab Results - Last 24 Hours (Table) 04/27/16 04/27/16 04/27/16 Range/Units 17:00 17:02 20:12 WBC (3.8-10.6) k/uL RBC (3.80-5.40) m/uL Hgb (11.4-16.0) gm/dL Hct (34.0-46.0) % MCV (80.0-100.0) fL MCH (25.0-35.0) pg MCHC (31.0-37.0) g/dL RDW (11.5-15.5) % Neutrophils # (1.3-7.7) k/uL PT (9.0-12.0) sec Glucose (74-99) mg/dL POC Glucose (mg/dL) 311 H 318 H 304 H (75-99) mg/dL Total Protein (6.3-8.2) g/dL Albumin (3.5-5.0) g/dL 04/27/16 04/28/16 04/28/16 Range/Units 20:13 04:32 04:32 WBC 12.9 H 11.1 H (3.8-10.6) k/uL RBC 3.07 L 3.45 L (3.80-5.40) m/uL Hgb 6.9 L* 8.0 L (11.4-16.0) gm/dL Hct 24.4 L 28.0 L (34.0-46.0) % MCV 79.3 L (80.0-100.0) fL MCH 22.5 L 23.2 L (25.0-35.0) pg MCHC 28.4 L 28.5 L (31.0-37.0) g/dL RDW 16.7 H 16.8 H (11.5-15.5) % Neutrophils # 9.4 H 8.4 H (1.3-7.7) k/uL PT 14.6 H (9.0-12.0) sec Glucose (74-99) mg/dL POC Glucose (mg/dL) (75-99) mg/dL Total Protein (6.3-8.2) g/dL Albumin (3.5-5.0) g/dL 04/28/16 04/28/16 04/28/16 Range/Units 04:32 07:23 10:43 WBC 15.3 H (3.8-10.6) k/uL RBC 3.59 L (3.80-5.40) m/uL Hgb 8.3 L (11.4-16.0) gm/dL Hct 29.4 L (34.0-46.0) % MCV (80.0-100.0) fL MCH 23.2 L (25.0-35.0) pg MCHC 28.4 L (31.0-37.0) g/dL RDW 16.8 H (11.5-15.5) % Neutrophils # (1.3-7.7) k/uL PT (9.0-12.0) sec Glucose 246 H (74-99) mg/dL POC Glucose (mg/dL) 292 H (75-99) mg/dL Total Protein 5.5 L (6.3-8.2) g/dL Albumin 2.7 L (3.5-5.0) g/dL 04/28/16 Range/Units 11:51 WBC (3.8-10.6) k/uL RBC (3.80-5.40) m/uL Hgb (11.4-16.0) gm/dL Hct (34.0-46.0) % MCV (80.0-100.0) fL MCH (25.0-35.0) pg MCHC (31.0-37.0) g/dL RDW (11.5-15.5) % Neutrophils # (1.3-7.7) k/uL PT (9.0-12.0) sec Glucose (74-99) mg/dL POC Glucose (mg/dL) 340 H (75-99) mg/dL Total Protein (6.3-8.2) g/dL Albumin (3.5-5.0) g/dL Microbiology - Last 24 Hours (Table) 04/27/16 11:36 Blood Culture - Preliminary Blood No Growth after 24 hours 04/27/16 11:43 Blood Culture - Preliminary Blood No Growth after 24 hours 04/27/16 07:30 Urine Culture - Final Urine,Catheterized Assessment and Plan Plan: 1. Acute symptomatic anemia secondary to chronic blood loss and suspected lower GI bleed. Patient received 2 unit of PRBCs since admission. She had an EGD last month during her last hospitalization at [facility] that was unremarkable. She was seen and evaluated by gastroenterology. Plan for colonoscopy on . 2. Underlying pneumonia with sepsis on presentation: On IV ceftriaxone and azithromycin. Will finish a days course of antibiotic. May switch to oral Levaquin 500 mg daily when he clinically improving or prior to discharge to finish 8 days course total 3. Acute COPD exacerbation seen and evaluated by pulmonology. Continue bronchodilator and inhaled steroids 4. Paroxysmal atrial fibrillation on anticoagulation with Coumadin: Currently on hold awaiting further evaluation of underlying anemia 5. Essential hypertension: Blood pressure well-controlled Patient is stable to be transferred outside of the intensive care unit the [facility]. Repeat lab work in the morning. Transfuse as needed for hemoglobin below 7. Repeat lab work in the morning.
[2016-04-28 17:06] LABS: Glucose,Whole Blood 247 mg/dL (75-99)
[2016-04-28] MEDS: AZITHROMYCIN 500 MG in SODIUM CHLORIDE 0.9% 250 ML IVPB SCH (17:18)
[2016-04-28 21:01] LABS: Glucose,Whole Blood 230 mg/dL (75-99)
[2016-04-28] MEDS: PRAVASTATIN SODIUM 20 MG TAB PO SCH (21:21)
[2016-04-28] MEDS: INSULIN DETEMIR 100 UNIT/ML 10 ML VIAL SQ SCH (21:24)
[2016-04-29] MEDS: ALPRAZolam 0.25 MG TAB PO SCH ×3 (03:34→21:19)
[2016-04-29 06:44] LABS: Glucose,Whole Blood 208 mg/dL (75-99)
[2016-04-29] MEDS: ALBUTEROL NEBULIZED 2.5 MG/3 ML INHALATION PRN (06:55)
[2016-04-29] MEDS: BUDESONIDE 1 MG/2 ML NEBU INHALATION SCH ×2 (06:55→20:58)
[2016-04-29] MEDS: INSULIN LISPRO (humaLOG) 300 UNIT/3 ML VIAL SQ SCH ×7 (07:46→21:19)
[2016-04-29 08:15] LABS: Anisocytosis Slight; Basophils % (A) 0 %; CH 22.9; CHCM 27.3; Eosinophils % (A) 0 %; HCT 31.2 % (34.0-46.0); HDW 4.61; HGB 8.4 gm/dL (11.4-16.0); Hypochromasia Marked; Luc # (Auto) 0.34; Luc % (Auto) 2; Lymphocytes # (A) 1.5 k/uL (1.0-4.8); Lymphocytes % (A) 9 %; MCH 22.7 pg (25.0-35.0); Monocytes # (A) 0.8 k/uL (0-1.0); Monocytes % (A) 5 %; Neutrophils # (A) 13.2 k/uL (1.3-7.7); Neutrophils % (A) 83 %; Poikilocytosis Marked; RBC 3.72 m/uL (3.80-5.40); RDW 16.9 % (11.5-15.5); WBC 15.8 k/uL (3.8-10.6); WBC (Perox) 16.77
[2016-04-29 08:20] LABS: INR 1.4 (<1.1); Prothrombin Time 13.3 sec (9.0-12.0)
[2016-04-29 08:30] LABS: ALT 43 U/L (9-52); AST 22 U/L (14-36); Alkaline Phosphatase 72 U/L (38-126); Anion Gap 11 mmol/L; Blood Urea Nitrogen 11 mg/dL (7-17); Calcium 8.5 mg/dL (8.4-10.2); Carbon Dioxide 27 mmol/L (22-30); Chloride 102 mmol/L (98-107); Glucose 236 mg/dL (74-99); Magnesium 2.1 mg/dL (1.6-2.3); Non-African American GFR(MDRD) >60 (>60 ml/min/1.73 sqM); Phosphorous 3.7 mg/dL (2.5-4.5); Potassium 5.2 mmol/L (3.5-5.1); Sodium 140 mmol/L (137-145); Total Bilirubin 0.6 mg/dL (0.2-1.3); Total Protein 6.4 g/dL (6.3-8.2)
--- NOTE | 2016-04-29 09:00 | XR ---
EXAMINATION TYPE: XR chest 2V DATE OF EXAM: 04/29/2016 7:49 AM COMPARISON: 04/27/2016 HISTORY: Shortness of breath FINDINGS: There are bilateral pleural effusions with cardiomegaly and bibasilar infiltrate. There is a diffuse interstitial pattern. Metallic device overlying the thoracic spine. IMPRESSION: 1. Bilateral infiltrate and pleural effusion. Correlate for CHF versus pneumonia.
[2016-04-29] MEDS: AZITHROMYCIN 500 MG in SODIUM CHLORIDE 0.9% 250 ML IVPB SCH (09:05)
[2016-04-29] MEDS: PANTOPRAZOLE 40 MG/10 ML VIAL IV SCH (09:06)
[2016-04-29] MEDS: METOPROLOL SUCCINATE (ER) 100 MG TAB.ER.24H PO SCH ×2 (09:06→20:03)
[2016-04-29] MEDS: DILTIAZEM CD 240 MG CAP.ER.24H PO SCH (09:06)
[2016-04-29] MEDS: ACETAMINOPHEN TAB 325 MG TAB PO PRN (09:14)
[2016-04-29] MEDS: FUROSEMIDE 40 MG TAB PO SCH (10:49)
[2016-04-29] MEDS: INSULIN DETEMIR 100 UNIT/ML 10 ML VIAL SQ SCH ×2 (10:49→21:19)
[2016-04-29] MEDS: SODIUM CHLORIDE 0.9% 1,000 ML IV SCH (10:51)
--- NOTE | 2016-04-29 10:52 | P.PN ---
Subjective Principal diagnosis: GI bleed anemia 76-year-old female with symptomatic anemia. No episodes of GI bleeding. Incomplete bowel prep last night for colonoscopy scheduled today. Heart rate increased to 130s this morning. Objective - Vital Signs Vital signs: Vital Signs Temp 97.7 F 04/29/16 08:28 Pulse 136 H 04/29/16 08:28 Resp 24 04/29/16 08:28 BP 146/65 04/29/16 08:28 Pulse Ox 92 L 04/29/16 08:28 Intake & Output 04/28/16 04/29/16 04/29/16 18:59 06:59 18:59 Intake Total 1140 2500 Output Total 685 Balance 455 2500 Weight 119 kg Intake: IV 300 Sodium Chloride 0.9% 1, 300 000 ml @ 50 mls/hr IV . Q20H SHARONDA Rx#:[id number] Intake, IV Titration 100 Amount Magnesium Sulfate-D5w Pmx 100 1 gm In Dextrose/Water 1 100ml.bag @ 100 mls/hr IVPB Q1H SHARONDA Rx#: [id number] Oral 740 2500 Output: Urine 685 Other: Voiding Method Bedside Commode Bedside Commode # Voids 1 # Bowel Movements 0 1 - Exam General appearance: The patient is alert, oriented, in no acute distress. HET: Head is normocephalic and atraumatic. Pupils are equal and reactive. Oropharynx is clear without lesions. Neck: Supple without lymphadenopathy. Trachea midline. Heart: S1 S2. Lungs: No diminished bases bilaterally heard. Abdomen: Soft, nontender, nondistended with bowel sounds. No peritoneal signs. No palpable organomegaly or masses. Extremities: Normal skin color and turgor. No cyanosis, rash, ulceration, clubbing, or edema. Radial and pedal pulses are 2/4 bilaterally. Neurological: No focal deficits. Strength and sensation are grossly intact. - Labs CBC & Chem 7: 04/29/16 08:04 04/29/16 08:04 Labs: Abnormal Lab Results - Last 24 Hours (Table) 04/28/16 04/28/16 04/28/16 Range/Units 10:43 11:51 17:04 WBC 15.3 H (3.8-10.6) k/uL RBC 3.59 L (3.80-5.40) m/uL Hgb 8.3 L (11.4-16.0) gm/dL Hct 29.4 L (34.0-46.0) % MCH 23.2 L (25.0-35.0) pg MCHC 28.4 L (31.0-37.0) g/dL RDW 16.8 H (11.5-15.5) % Neutrophils # (1.3-7.7) k/uL PT (9.0-12.0) sec Potassium (3.5-5.1) mmol/L Glucose (74-99) mg/dL POC Glucose (mg/dL) 340 H 247 H (75-99) mg/dL Albumin (3.5-5.0) g/dL 04/28/16 04/29/16 04/29/16 Range/Units 20:37 06:43 08:04 WBC 15.8 H (3.8-10.6) k/uL RBC 3.72 L (3.80-5.40) m/uL Hgb 8.4 L (11.4-16.0) gm/dL Hct 31.2 L (34.0-46.0) % MCH 22.7 L (25.0-35.0) pg MCHC 27.0 L (31.0-37.0) g/dL RDW 16.9 H (11.5-15.5) % Neutrophils # 13.2 H (1.3-7.7) k/uL PT (9.0-12.0) sec Potassium (3.5-5.1) mmol/L Glucose (74-99) mg/dL POC Glucose (mg/dL) 230 H 208 H (75-99) mg/dL Albumin (3.5-5.0) g/dL 04/29/16 04/29/16 Range/Units 08:04 08:04 WBC (3.8-10.6) k/uL RBC (3.80-5.40) m/uL Hgb (11.4-16.0) gm/dL Hct (34.0-46.0) % MCH (25.0-35.0) pg MCHC (31.0-37.0) g/dL RDW (11.5-15.5) % Neutrophils # (1.3-7.7) k/uL PT 13.3 H (9.0-12.0) sec Potassium 5.2 H (3.5-5.1) mmol/L Glucose 236 H (74-99) mg/dL POC Glucose (mg/dL) (75-99) mg/dL Albumin 3.1 L (3.5-5.0) g/dL Microbiology - Last 24 Hours (Table) 04/27/16 11:36 Blood Culture - Preliminary Blood No Growth after 24 hours 04/27/16 11:43 Blood Culture - Preliminary Blood No Growth after 24 hours 04/27/16 07:30 Urine Culture - Final Urine,Catheterized Assessment and Plan (1) GI bleed Status: Acute (2) Symptomatic anemia Status: Acute (3) Acute blood loss anemia Status: Acute (4) COPD (chronic obstructive pulmonary disease) Status: Acute (5) Tachycardia Status: Acute Plan: 1. Colonoscopy postponed until tachycardia can be evaluated. Continue clear liquid diet. We'll attempt colonoscopy evaluation tomorrow based on clinical course today. Assessment and plan a care discussed with Dr. Mccarthy.
[2016-04-29] MEDS ORDERED: BISACODYL 5 MG TABLET.DR PO STA (11:06)
--- NOTE | 2016-04-29 11:36 | P.PN ---
Subjective This is a 76-year-old female patient evaluated and examined today in the ICU. Patient initially had a hemoglobin of 6.1 and an INR of 2.0 lactic acid of 3.3 at [facility], the patient was then transferred to [facility]. Initial labs upon arrival were hemoglobin of 6.6, INR of 1.9, and a lactic acid of 2.2. The patient stated she had been having some subjective fevers at home with chills and intermittent nonproductive cough with shortness of breath. Since being here [facility] the patient has received 2 units of packed red blood cells for which she has responded well and today's labs reveal a hemoglobin of 8. The patient has never showed any evidence of an active bleed. The patient is supposed to undergo a colonoscopy procedure tomorrow 04/29/16. With a possible capsule endoscopy based on findings. Upon evaluation today the patient is resting up in bed in no distress. The patient is currently using 2 L of oxygen, she states she does have a productive cough with clear to white sputum. Patient states that the [employer] seem to be helping her significantly. The patient does have a diagnosis of obstructive sleep apnea and family has brought in her home BiPAP machine. Objective - Vital Signs Vital signs: Vital Signs Temp 97.7 F 04/29/16 08:28 Pulse 136 H 04/29/16 08:28 Resp 24 04/29/16 08:28 BP 146/65 04/29/16 08:28 Pulse Ox 92 L 04/29/16 08:28 Intake & Output 04/28/16 04/29/16 04/29/16 18:59 06:59 18:59 Intake Total 1140 2500 Output Total 685 Balance 455 2500 Weight 119 kg Intake: IV 300 Sodium Chloride 0.9% 1, 300 000 ml @ 50 mls/hr IV . Q20H SHARONDA Rx#:[id number] Intake, IV Titration 100 Amount Magnesium Sulfate-D5w Pmx 100 1 gm In Dextrose/Water 1 100ml.bag @ 100 mls/hr IVPB Q1H SHARONDA Rx#: [id number] Oral 740 2500 Output: Urine 685 Other: Voiding Method Bedside Commode Bedside Commode # Voids 1 # Bowel Movements 0 1 - Exam GENERAL EXAM: Alert, active, comfortable in no apparent distress. HEAD: Normocephalic. EYES: Normal reaction of pupils, equal size. NOSE: Clear with pink turbinates. THROAT: No erythema or exudates. NECK: No masses, no JVD. CHEST: No chest wall deformity. LUNGS: Equal air entry. Bases with some crackles bilaterally CVS: S1 and S2 normal with no audible mumurs, regular rhythm. ABDOMEN: No hepatosplenomegaly, normal bowel sounds, no guarding or rigidity. EXTREMITIES: No edema noted, pedal pulses palpable. SKIN: No rashes CENTRAL NERVOUS SYSTEM: No focal deficits, tone is normal in all 4 extremities. - Labs CBC & Chem 7: 04/29/16 08:04 04/29/16 08:04 Labs: Abnormal Lab Results - Last 24 Hours (Table) 04/28/16 04/28/16 04/28/16 Range/Units 11:51 17:04 20:37 WBC (3.8-10.6) k/uL RBC (3.80-5.40) m/uL Hgb (11.4-16.0) gm/dL Hct (34.0-46.0) % MCH (25.0-35.0) pg MCHC (31.0-37.0) g/dL RDW (11.5-15.5) % Neutrophils # (1.3-7.7) k/uL PT (9.0-12.0) sec Potassium (3.5-5.1) mmol/L Glucose (74-99) mg/dL POC Glucose (mg/dL) 340 H 247 H 230 H (75-99) mg/dL Albumin (3.5-5.0) g/dL 04/29/16 04/29/16 04/29/16 Range/Units 06:43 08:04 08:04 WBC 15.8 H (3.8-10.6) k/uL RBC 3.72 L (3.80-5.40) m/uL Hgb 8.4 L (11.4-16.0) gm/dL Hct 31.2 L (34.0-46.0) % MCH 22.7 L (25.0-35.0) pg MCHC 27.0 L (31.0-37.0) g/dL RDW 16.9 H (11.5-15.5) % Neutrophils # 13.2 H (1.3-7.7) k/uL PT 13.3 H (9.0-12.0) sec Potassium (3.5-5.1) mmol/L Glucose (74-99) mg/dL POC Glucose (mg/dL) 208 H (75-99) mg/dL Albumin (3.5-5.0) g/dL 04/29/16 Range/Units 08:04 WBC (3.8-10.6) k/uL RBC (3.80-5.40) m/uL Hgb (11.4-16.0) gm/dL Hct (34.0-46.0) % MCH (25.0-35.0) pg MCHC (31.0-37.0) g/dL RDW (11.5-15.5) % Neutrophils # (1.3-7.7) k/uL PT (9.0-12.0) sec Potassium 5.2 H (3.5-5.1) mmol/L Glucose 236 H (74-99) mg/dL POC Glucose (mg/dL) (75-99) mg/dL Albumin 3.1 L (3.5-5.0) g/dL Microbiology - Last 24 Hours (Table) 04/27/16 11:36 Blood Culture - Preliminary Blood No Growth after 24 hours 04/27/16 11:43 Blood Culture - Preliminary Blood No Growth after 24 hours 04/27/16 07:30 Urine Culture - Final Urine,Catheterized Assessment and Plan Plan: Assessment GI bleed Symptomatic Anemia Acute blood loss anemia Lactic acidosis sepsis Elevated INR Acute exacerbation of COPD Obesity History of chronic moderate persistent asthma Diabetes mellitus Obstructive sleep apnea Plan Medications have been reviewed and we will continue with current treatment. Patient to use home BiPAP at night. Chest x-ray reviewed. One-time dose of Lasix 40 mg IV ordered. Continue with current nebulizer treatments. Continue to monitor for any active bleeding. Patient will undergo a colonoscopy tomorrow. The patient is hemodynamically stable, urine output is good. Decrease IV fluids to KVO. We will continue to monitor labs and adjust treatment as necessary. I performed an examination of the patient and discussed their management with the nurse practitioner. I have reviewed the nurse practitioner's note and agree with the documented findings and plan of care.
[2016-04-29] MEDS ORDERED: LEVALBUTEROL NEB (CONC) 1.25 MG/0.5 ML AMP INHALATION SCH (12:00)
[2016-04-29] MEDS: IPRATROPIUM 0.5 MG/2.5 ML NEBU INHALATION SCH ×3 (12:10→20:59)
[2016-04-29 12:11] LABS: Glucose,Whole Blood 241 mg/dL (75-99)
--- NOTE | 2016-04-29 12:36 | P.PN ---
Subjective Patient presented with generalized weakness and shortness of breath. She is being treated for pneumonia with sepsis. On IV antibiotics. She also was anemic with stool in the outpatient setting positive for Hemoccult blood. She was initially scheduled for colonoscopy today. However patient stools are still not clear. Also she has been tachycardic at times the heart rate all into the 150s. Medications have been adjusted. Albuterol was discontinued and patient was placed on Xopenex. Restarted her home dose of the metoprolol 200 mg twice a day. Pulmonary service gave patient a dose of IV Lasix. There was some evidence of fluid overload which may have contributed to her tachycardia as well. Chest x-ray shows bilateral infiltrate and pleural effusion. Correlate for CHF versus pneumonia. Objective - Vital Signs Vital signs: Vital Signs Temp 97.7 F 04/29/16 08:28 Pulse 92 04/29/16 12:10 Resp 24 04/29/16 08:28 BP 146/65 04/29/16 08:28 Pulse Ox 92 L 04/29/16 08:28 Intake & Output 04/28/16 04/29/16 04/29/16 18:59 06:59 18:59 Intake Total 1140 2500 Output Total 685 Balance 455 2500 Weight 119 kg Intake: IV 300 Sodium Chloride 0.9% 1, 300 000 ml @ 50 mls/hr IV . Q20H SHARONDA Rx#:[id number] Intake, IV Titration 100 Amount Magnesium Sulfate-D5w Pmx 100 1 gm In Dextrose/Water 1 100ml.bag @ 100 mls/hr IVPB Q1H SHARONDA Rx#: [id number] Oral 740 2500 Output: Urine 685 Other: Voiding Method Bedside Commode Bedside Commode # Voids 1 # Bowel Movements 0 1 - Exam Head normocephalic Neck supple Lungs crackles at bases Heart regular rate and rhythm S1-S2, no rub or gallop Abdomen is soft nontender nondistended positive bowel sounds no hepatosplenomegaly Extremities no edema Neuro alert and orientated to 3 - Labs CBC & Chem 7: 04/29/16 08:04 04/29/16 08:04 Labs: Abnormal Lab Results - Last 24 Hours (Table) 04/28/16 04/28/16 04/29/16 Range/Units 17:04 20:37 06:43 WBC (3.8-10.6) k/uL RBC (3.80-5.40) m/uL Hgb (11.4-16.0) gm/dL Hct (34.0-46.0) % MCH (25.0-35.0) pg MCHC (31.0-37.0) g/dL RDW (11.5-15.5) % Neutrophils # (1.3-7.7) k/uL PT (9.0-12.0) sec Potassium (3.5-5.1) mmol/L Glucose (74-99) mg/dL POC Glucose (mg/dL) 247 H 230 H 208 H (75-99) mg/dL Albumin (3.5-5.0) g/dL 04/29/16 04/29/16 04/29/16 Range/Units 08:04 08:04 08:04 WBC 15.8 H (3.8-10.6) k/uL RBC 3.72 L (3.80-5.40) m/uL Hgb 8.4 L (11.4-16.0) gm/dL Hct 31.2 L (34.0-46.0) % MCH 22.7 L (25.0-35.0) pg MCHC 27.0 L (31.0-37.0) g/dL RDW 16.9 H (11.5-15.5) % Neutrophils # 13.2 H (1.3-7.7) k/uL PT 13.3 H (9.0-12.0) sec Potassium 5.2 H (3.5-5.1) mmol/L Glucose 236 H (74-99) mg/dL POC Glucose (mg/dL) (75-99) mg/dL Albumin 3.1 L (3.5-5.0) g/dL 04/29/16 Range/Units 12:09 WBC (3.8-10.6) k/uL RBC (3.80-5.40) m/uL Hgb (11.4-16.0) gm/dL Hct (34.0-46.0) % MCH (25.0-35.0) pg MCHC (31.0-37.0) g/dL RDW (11.5-15.5) % Neutrophils # (1.3-7.7) k/uL PT (9.0-12.0) sec Potassium (3.5-5.1) mmol/L Glucose (74-99) mg/dL POC Glucose (mg/dL) 241 H (75-99) mg/dL Albumin (3.5-5.0) g/dL Microbiology - Last 24 Hours (Table) 04/27/16 11:36 Blood Culture - Preliminary Blood No Growth after 24 hours 04/27/16 11:43 Blood Culture - Preliminary Blood No Growth after 24 hours 04/27/16 07:30 Urine Culture - Final Urine,Catheterized Assessment and Plan Plan: 1. Acute symptomatic anemia secondary to chronic blood loss and suspected lower GI bleed. Patient received 2 unit of PRBCs since admission. She had an EGD last month during her last hospitalization at [facility] that was unremarkable. She was seen and evaluated by gastroenterology. Due to patient' s tachycardia and incomplete bowel prep. Patient is rescheduled for colonoscopy tomorrow 2. Underlying pneumonia with sepsis on presentation: On IV ceftriaxone and azithromycin. Will finish a days course of antibiotic. May switch to oral Levaquin 500 mg daily when he clinically improving or prior to discharge to finish 8 days course total 3. Acute COPD exacerbation seen and evaluated by pulmonology. Continue bronchodilator and inhaled steroids 4. Paroxysmal atrial fibrillation on anticoagulation with Coumadin: Currently on hold awaiting further evaluation of underlying anemia. A. fib with rapid ventricular rate. Patient has been tachycardic with heart rates in the 130s to 150s. Patient did receive her Cardizem. 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 5. 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 Diabetes mellitus insulin-dependent. Resume home insulin. Blood sugars have been in the 200s. 8. Fluid overload. Pulmonary service has ordered 1 dose of IV Lasix. We'll resume her Lasix 40 po daily
[2016-04-29] MEDS: HYDROcodone/APAP 10-325MG 1 EACH TAB PO PRN (15:02)
[2016-04-29] MEDS ORDERED: PEG 3350-NA SULF,BICARB,CL/KCL 4,000 ML BOTTLE PO ONE (16:00)
[2016-04-29] MEDS: LEVALBUTEROL NEB (CONC) 1.25 MG/0.5 ML AMP INHALATION SCH ×2 (16:19→20:59)
[2016-04-29] MEDS: MORPHINE SULFATE 2 MG/ML SYRINGE IVP PRN ×2 (16:48→21:58)
[2016-04-29 17:15] LABS: Glucose,Whole Blood 162 mg/dL (75-99)
--- NOTE | 2016-04-29 17:20 | US ---
EXAMINATION TYPE: US venous doppler duplex LE LT DATE OF EXAM: 04/29/2016 4:10 PM COMPARISON: 06/01/2014 CLINICAL HISTORY: rule out DVT. SIDE PERFORMED: VESSELS IMAGED: External Iliac Vein (EIV) Common Femoral Vein Deep Femoral Vein Greater Saphenous Vein * Femoral Vein Popliteal Vein Small Saphenous Vein * Proximal Calf Veins (* superficial vessels) TECHNOLOGIST IMPRESSION: Morbidly obese patient, technically difficult study. Left Leg: Appears negative for DVT. IMPRESSION: Normal exam. No evidence of deep venous thrombosis in the left leg. No change.
[2016-04-29] MEDS: PRAVASTATIN SODIUM 20 MG TAB PO SCH (20:03)
[2016-04-29] MEDS: MONTELUKAST 10 MG TAB PO SCH (20:03)
[2016-04-29] MEDS: LOSARTAN 50 MG TAB PO SCH (20:03)
[2016-04-29 21:32] LABS: Glucose,Whole Blood 140 mg/dL (75-99)
[2016-04-30] MEDS: ACETAMINOPHEN TAB 325 MG TAB PO PRN (00:50)
[2016-04-30] MEDS: MORPHINE SULFATE 2 MG/ML SYRINGE IVP PRN ×5 (02:46→21:25)
[2016-04-30] MEDS: BUDESONIDE 1 MG/2 ML NEBU INHALATION SCH ×2 (07:10→20:34)
[2016-04-30 07:11] LABS: Glucose,Whole Blood 82 mg/dL (75-99)
[2016-04-30] MEDS: LEVALBUTEROL NEB (CONC) 1.25 MG/0.5 ML AMP INHALATION SCH (07:11)
[2016-04-30] MEDS: IPRATROPIUM 0.5 MG/2.5 ML NEBU INHALATION SCH (07:11)
[2016-04-30] MEDS: INSULIN LISPRO (humaLOG) 300 UNIT/3 ML VIAL SQ SCH ×8 (07:50→20:53)
[2016-04-30] MEDS: AZITHROMYCIN 500 MG TAB PO SCH (08:05)
[2016-04-30] MEDS: FUROSEMIDE 40 MG TAB PO SCH (08:05)
[2016-04-30] MEDS: ALPRAZolam 0.25 MG TAB PO SCH ×2 (08:05→21:01)
[2016-04-30] MEDS: METOPROLOL SUCCINATE (ER) 100 MG TAB.ER.24H PO SCH ×2 (08:05→20:52)
[2016-04-30] MEDS: DILTIAZEM CD 240 MG CAP.ER.24H PO SCH (08:05)
[2016-04-30] MEDS: INSULIN DETEMIR 100 UNIT/ML 10 ML VIAL SQ SCH ×2 (08:06→21:01)
[2016-04-30] MEDS: PANTOPRAZOLE 40 MG/10 ML VIAL IV SCH (08:06)
--- NOTE | 2016-04-30 08:59 | P.PN ---
Subjective Principal diagnosis: GI bleed anemia 76-year-old female with symptomatic anemia. No episodes of GI bleeding. Incomplete bowel prep last night for colonoscopy scheduled today. Objective - Vital Signs Vital signs: Vital Signs Temp 96.9 F L 04/30/16 07:00 Pulse 90 04/30/16 07:21 Resp 20 04/30/16 07:00 BP 153/68 04/30/16 07:00 Pulse Ox 96 04/30/16 07:00 Intake & Output 04/29/16 04/30/16 04/30/16 18:59 06:59 18:59 Weight 118 kg Other: Voiding Method Bedside Commode Bedpan # Voids 4 2 # Bowel Movements 2 0 - Exam General appearance: The patient is alert, oriented, in no acute distress. HET: Head is normocephalic and atraumatic. Pupils are equal and reactive. Oropharynx is clear without lesions. Neck: Supple without lymphadenopathy. Trachea midline. Heart: S1 S2. Lungs: Expiratory wheezes. Bibasilar crackles. Abdomen: Soft, nontender, nondistended with bowel sounds. No peritoneal signs. No palpable organomegaly or masses. Extremities: Normal skin color and turgor. No cyanosis, rash, ulceration, clubbing, or edema. Radial and pedal pulses are 2/4 bilaterally. Neurological: No focal deficits. Strength and sensation are grossly intact. - Labs CBC & Chem 7: 04/29/16 08:04 04/29/16 08:04 Labs: Abnormal Lab Results - Last 24 Hours (Table) 04/29/16 04/29/16 04/29/16 Range/Units 12:09 17:13 21:12 POC Glucose (mg/dL) 241 H 162 H 140 H (75-99) mg/dL Microbiology - Last 24 Hours (Table) 04/27/16 11:36 Blood Culture - Preliminary Blood No Growth after 48 hours 04/27/16 11:43 Blood Culture - Preliminary Blood No Growth after 48 hours Assessment and Plan (1) GI bleed Status: Acute (2) Symptomatic anemia Status: Acute (3) Acute blood loss anemia Narrative/Plan: Reported positive Hemoccult testing in the outpatient setting status post EGD evaluation 2 months ago at outside facility reported as normal. Status: Acute (4) COPD (chronic obstructive pulmonary disease) Status: Acute (5) Tachycardia Status: Acute Plan: 1. Colonoscopy postponed secondary to incomplete prep. Continue clear liquid diet. We'll tentatively attempt colonoscopy evaluation tomorrow based on medicines evaluation/ clinical course today. Plan of care discussed with Tia RUSSO. Assessment and plan a care discussed with Dr. Mccarthy.
[2016-04-30 09:48] LABS: Anisocytosis Slight; Basophils % (A) 0 %; CH 22.9; CHCM 27.3; Eosinophils % (A) 0 %; HCT 28.1 % (34.0-46.0); HDW 4.39; HGB 7.8 gm/dL (11.4-16.0); Hypochromasia Marked; Luc # (Auto) 0.22; Luc % (Auto) 2; Lymphocytes # (A) 0.8 k/uL (1.0-4.8); Lymphocytes % (A) 8 %; MCH 23.2 pg (25.0-35.0); MCV 84.1 fL (80.0-100.0); Mean Platelet Volume 8.1; Monocytes # (A) 0.5 k/uL (0-1.0); Monocytes % (A) 4 %; Neutrophils # (A) 9.3 k/uL (1.3-7.7); Neutrophils % (A) 86 %; Poikilocytosis Moderate; RBC 3.34 m/uL (3.80-5.40); RDW 17.1 % (11.5-15.5); WBC 10.9 k/uL (3.8-10.6); WBC (Perox) 11.57
[2016-04-30] MEDS ORDERED: MAGNESIUM CITRATE 296 ML BOTTLE PO ONE (09:51)
[2016-04-30] MEDS ORDERED: BISACODYL 5 MG TABLET.DR PO STA (09:52)
[2016-04-30 09:54] LABS: INR 1.3 (<1.1); Prothrombin Time 13.1 sec (9.0-12.0)
[2016-04-30 10:05] LABS: ALT 37 U/L (9-52); AST 18 U/L (14-36); Alkaline Phosphatase 61 U/L (38-126); Anion Gap 12 mmol/L; Blood Urea Nitrogen 8 mg/dL (7-17); Calcium 8.4 mg/dL (8.4-10.2); Carbon Dioxide 27 mmol/L (22-30); Chloride 102 mmol/L (98-107); Glucose 79 mg/dL (74-99); MCHC 27.6 g/dL (31.0-37.0); Non-African American GFR(MDRD) >60 (>60 ml/min/1.73 sqM); Phosphorous 3.9 mg/dL (2.5-4.5); Potassium 4.2 mmol/L (3.5-5.1); Sodium 141 mmol/L (137-145); Total Bilirubin 0.4 mg/dL (0.2-1.3); Total Protein 6.1 g/dL (6.3-8.2)
[2016-04-30] MEDS ORDERED: FUROSEMIDE 10 MG/ML 2 ML VIAL IV ONE (10:05)
[2016-04-30] MEDS: SODIUM CHLORIDE 0.9% 1,000 ML IV SCH (10:34)
--- NOTE | 2016-04-30 11:13 | CONS ---
DATE OF CONSULTATION: CHIEF COMPLAINT: Atrial fibrillation with poorly controlled ventricular rate. Maria De Jesus is a 76-year-old lady with history of chronic atrial fibrillation who is admitted to hospital with severe anemia secondary to GI blood loss. She is currently being evaluated and worked up for the same. Her heart rate is poorly controlled for which Cardiology had been consulted. She denies chest pain or difficulty in breathing. Her predominant symptom was in the form of generalized weakness and shortness of breath. At the time of my evaluation this morning, her heart rate is around 100 beats per minute. She is on a large dose of metoprolol and also had been started on Cardizem CD. I am adding digoxin 0.25 mg daily. Past medical history is significant for asthma, CVA, diabetes, hypertension, dyslipidemia, and atrial fibrillation. She has back pain and has a pain stimulator. Past surgical history is significant for hysterectomy and back surgery. SOCIAL HISTORY: Significant for smoking. There is no history of EtOH abuse or drug abuse. Medications at home include Xanax Ventolin, Cardizem CD, Lasix, insulin, Cozaar, Toprol, Singulair, Pravachol and Coumadin. Patient is allergic to PENICILLIN. Family history is negative for premature coronary artery disease. Social history is significant for smoking. There is no history of EtOH abuse or drug abuse. REVIEW OF SYSTEMS: HEENT: Unremarkable. CARDIAC: As described above. RESPIRATORY: As described above. GI: As described above. GENITOURINARY: Negative. ALLERGY/IMMUNOLOGY: Negative. MUSCULOSKELETAL: Significant for arthritis. PSYCHOSOCIAL: Negative. ENDOCRINE: Negative. HEMATOLOGIC: Significant for anemia. DERMATOLOGY: Negative. CONSTITUTIONAL: Negative. On exam, comfortable at rest. Heart rate is elevated. There is no jugular venous distention. Carotid upstroke is normal. Chest exam reveals good air entry bilaterally. Heart exam reveals first and second heart sounds. Systolic murmur in the left lower sternal border. Abdomen is soft. Exam of extremities did not reveal any edema. Peripheral pulses are palpable. Labs show that the hemoglobin is 7.8, platelet count is 190. Creatinine is 0.6. INR is 1.3. ASSESSMENT: 1. Chronic atrial fibrillation with poorly controlled ventricular rate. 2. Severe anemia secondary to gastrointestinal blood loss. PLAN: Patient is not a candidate for anticoagulation at this time. Please hold the Coumadin and other anticoagulants until the GI issue is resolved and this can be readdressed as outpatient. The patient is at increased risk for stroke at this time. She understands it. Next her heart rate is poorly controlled on calcium channel blockers and beta blockers, I am adding digoxin to it. Thank you for allowing me to participate in the care of this pleasant lady.
[2016-04-30 11:46] LABS: Glucose,Whole Blood 217 mg/dL (75-99)
[2016-04-30] MEDS: methylPREDNISolone SOD SUCCI 40 MG/ML 1 ML VIAL IV SCH ×2 (12:01→16:21)
[2016-04-30] MEDS: DIGOXIN 250 MCG TAB PO SCH (12:01)
[2016-04-30] MEDS: IPRATROPIUM-ALBUTEROL 3 ML NEB INHALATION SCH ×3 (12:03→20:34)
--- NOTE | 2016-04-30 12:24 | P.PN ---
Subjective Patient presented with generalized weakness and shortness of breath. She is being treated for pneumonia with sepsis. On IV antibiotics. She also was anemic with stool in the outpatient setting positive for Hemoccult blood. She was initially scheduled for colonoscopy today. However patient stools are still not clear. Also she has been tachycardic at times the heart rate all into the 150s. Medications have been adjusted. Albuterol was discontinued and patient was placed on Xopenex. Restarted her home dose of the metoprolol 200 mg twice a day. Pulmonary service gave patient a dose of IV Lasix. There was some evidence of fluid overload which may have contributed to her tachycardia as well. Chest x-ray shows bilateral infiltrate and pleural effusion. Correlate for CHF versus pneumonia. 04/30/2016 patient was scheduled for colonoscopy today. However due to her worsening respiratory status and poor bowel prep colonoscopy is again canceled. It is technically scheduled for tomorrow. Patient has had some shortness of breath and more congestion in the lungs sounds like fluid overload. a dose of IV Lasix has been ordered. Yesterday she is also been complaining of left leg pain Doppler was negative for DVT. Patient evaluated by cardiology. They have added digoxin to help with better rate control. Patient denies any chest pain. Not reporting any significant shortness of breath. However now she is requiring 4 L of oxygen satting at 96%. Denies any nausea or vomiting. Denies any difficulty urinating. Objective - Vital Signs Vital signs: Vital Signs Temp 96.9 F L 04/30/16 07:00 Pulse 92 04/30/16 12:13 Resp 20 04/30/16 07:00 BP 153/68 04/30/16 07:00 Pulse Ox 96 04/30/16 07:00 Intake & Output 04/29/16 04/30/16 04/30/16 18:59 06:59 18:59 Weight 118 kg Other: Voiding Method Bedside Commode Bedpan Bedpan # Voids 4 2 # Bowel Movements 2 0 1 - Exam Head normocephalic Neck supple Lungs crackles at bases bilaterally Heart regular rate and rhythm S1-S2, no rub or gallop Abdomen is soft nontender nondistended positive bowel sounds no hepatosplenomegaly Extremities no edema Neuro alert and orientated to 3 - Labs CBC & Chem 7: 04/30/16 09:09 04/30/16 09:09 Labs: Abnormal Lab Results - Last 24 Hours (Table) 04/29/16 04/29/16 04/30/16 Range/Units 17:13 21:12 09:09 WBC 10.9 H (3.8-10.6) k/uL RBC 3.34 L (3.80-5.40) m/uL Hgb 7.8 L (11.4-16.0) gm/dL Hct 28.1 L (34.0-46.0) % MCH 23.2 L (25.0-35.0) pg MCHC 27.6 L (31.0-37.0) g/dL RDW 17.1 H (11.5-15.5) % Neutrophils # 9.3 H (1.3-7.7) k/uL Lymphocytes # 0.8 L (1.0-4.8) k/uL PT (9.0-12.0) sec POC Glucose (mg/dL) 162 H 140 H (75-99) mg/dL Total Protein (6.3-8.2) g/dL Albumin (3.5-5.0) g/dL 04/30/16 04/30/16 04/30/16 Range/Units 09:09 09:09 11:43 WBC (3.8-10.6) k/uL RBC (3.80-5.40) m/uL Hgb (11.4-16.0) gm/dL Hct (34.0-46.0) % MCH (25.0-35.0) pg MCHC (31.0-37.0) g/dL RDW (11.5-15.5) % Neutrophils # (1.3-7.7) k/uL Lymphocytes # (1.0-4.8) k/uL PT 13.1 H (9.0-12.0) sec POC Glucose (mg/dL) 217 H (75-99) mg/dL Total Protein 6.1 L (6.3-8.2) g/dL Albumin 2.9 L (3.5-5.0) g/dL Microbiology - Last 24 Hours (Table) 04/27/16 11:36 Blood Culture - Preliminary Blood No Growth after 48 hours 04/27/16 11:43 Blood Culture - Preliminary Blood No Growth after 48 hours Assessment and Plan Plan: 1. Acute symptomatic anemia secondary to chronic blood loss and suspected lower GI bleed. Patient received 2 unit of PRBCs since admission. She had an EGD last month during her last hospitalization at [facility] that was unremarkable. She was seen and evaluated by gastroenterology. Patient's colonoscopy he is scheduled again for tomorrow. Canceled today due to fluid overload and poor bowel prep. Patient will be rescheduled for colonoscopy tomorrow 2. Underlying pneumonia with sepsis on presentation: On IV ceftriaxone and azithromycin. Will finish a days course of antibiotic. May switch to oral Levaquin 500 mg daily when he clinically improving or prior to discharge to finish 8 days course total 3. Acute COPD exacerbation seen and evaluated by pulmonology. Continue bronchodilator and inhaled steroids. Patient had been having wheezing this morning as well. Could be related to some fluid overload as well as her COPD exacerbation pulmonate service has started patient on IV Solu-Medrol 4. Paroxysmal atrial fibrillation on anticoagulation with Coumadin: Currently on hold awaiting further evaluation of underlying anemia. Patient has been having episodes of atrial fibrillation with rapid ventricular response. Evaluated by cardiology. They've added digoxin to her regimen of medications. Appreciate their input 5. 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 Diabetes mellitus insulin-dependent. Continue home insulin. We'll change sliding scale to the steroid scale 8. Fluid overload will give patient another dose of IV Lasix.
--- NOTE | 2016-04-30 12:51 | P.PN ---
Subjective This is a 76-year-old female patient evaluated and examined today on the fourth floor Patient initially had a hemoglobin of 6.1 and an INR of 2.0 lactic acid of 3.3 at [facility], the patient was then transferred to [facility]. Initial labs upon arrival were hemoglobin of 6.6, INR of 1.9 , and a lactic acid of 2.2. The patient stated she had been having some subjective fevers at home with chills and intermittent nonproductive cough with shortness of breath. Since being here [facility] the patient has received 2 units of packed red blood cells for which she has responded well and today's labs reveal a hemoglobin of 8. The patient has never showed any evidence of an active bleed. Upon evaluation today the patient is resting up in bed in no distress. The patient is currently using 2 L of oxygen, she states she does have a productive cough with clear to white sputum. Patient states that the updrafts seem to be helping her significantly. The patient does have a diagnosis of obstructive sleep apnea and family has brought in her home BiPAP machine. The patient scheduled colonoscopy has been postponed again today due to worsening respiratory status. Patient had some shortness of breath and more congestion in the lungs and it sounded like a little bit of fluid overload. Patient received a 1 times dose of Lasix today as well as yesterday. Currently she is using 4 L of oxygen via nasal cannula. Objective - Vital Signs Vital signs: Vital Signs Temp 96.9 F L 04/30/16 07:00 Pulse 92 04/30/16 12:13 Resp 20 04/30/16 07:00 BP 153/68 04/30/16 07:00 Pulse Ox 96 04/30/16 07:00 Intake & Output 04/29/16 04/30/16 04/30/16 18:59 06:59 18:59 Weight 118 kg Other: Voiding Method Bedside Commode Bedpan Bedpan # Voids 4 2 # Bowel Movements 2 0 1 - Exam GENERAL EXAM: Alert, active, comfortable in no apparent distress. HEAD: Normocephalic. EYES: Normal reaction of pupils, equal size. NOSE: Clear with pink turbinates. THROAT: No erythema or exudates. NECK: No masses, no JVD. CHEST: No chest wall deformity. LUNGS: Equal air entry. Bases with some crackles bilaterally CVS: S1 and S2 normal with no audible mumurs, regular rhythm. ABDOMEN: No hepatosplenomegaly, normal bowel sounds, no guarding or rigidity. EXTREMITIES: No edema noted, pedal pulses palpable. SKIN: No rashes CENTRAL NERVOUS SYSTEM: No focal deficits, tone is normal in all 4 extremities. - Labs CBC & Chem 7: 04/30/16 09:09 04/30/16 09:09 Labs: Abnormal Lab Results - Last 24 Hours (Table) 04/29/16 04/29/16 04/30/16 Range/Units 17:13 21:12 09:09 WBC 10.9 H (3.8-10.6) k/uL RBC 3.34 L (3.80-5.40) m/uL Hgb 7.8 L (11.4-16.0) gm/dL Hct 28.1 L (34.0-46.0) % MCH 23.2 L (25.0-35.0) pg MCHC 27.6 L (31.0-37.0) g/dL RDW 17.1 H (11.5-15.5) % Neutrophils # 9.3 H (1.3-7.7) k/uL Lymphocytes # 0.8 L (1.0-4.8) k/uL PT (9.0-12.0) sec POC Glucose (mg/dL) 162 H 140 H (75-99) mg/dL Total Protein (6.3-8.2) g/dL Albumin (3.5-5.0) g/dL 04/30/16 04/30/16 04/30/16 Range/Units 09:09 09:09 11:43 WBC (3.8-10.6) k/uL RBC (3.80-5.40) m/uL Hgb (11.4-16.0) gm/dL Hct (34.0-46.0) % MCH (25.0-35.0) pg MCHC (31.0-37.0) g/dL RDW (11.5-15.5) % Neutrophils # (1.3-7.7) k/uL Lymphocytes # (1.0-4.8) k/uL PT 13.1 H (9.0-12.0) sec POC Glucose (mg/dL) 217 H (75-99) mg/dL Total Protein 6.1 L (6.3-8.2) g/dL Albumin 2.9 L (3.5-5.0) g/dL Microbiology - Last 24 Hours (Table) 04/27/16 11:36 Blood Culture - Preliminary Blood No Growth after 48 hours 04/27/16 11:43 Blood Culture - Preliminary Blood No Growth after 48 hours Assessment and Plan Plan: Assessment GI bleed Symptomatic Anemia Acute blood loss anemia Lactic acidosis sepsis Elevated INR Acute exacerbation of COPD Obesity History of chronic moderate persistent asthma Diabetes mellitus Obstructive sleep apnea Plan Medications have been reviewed and we will continue with current treatment. Patient to use home BiPAP at night. One-time dose of Lasix was ordered again today. Continue with current nebulizer treatments. Continue to monitor for any active bleeding. Patient will undergo a colonoscopy tomorrow. Urine output is good. Due to the faint wheeze we will put the patient back on IV steroids, and will reevaluate tomorrow. We will continue to monitor labs and adjust treatment as necessary. I performed an examination of the patient and discussed their management with the nurse practitioner. I have reviewed the nurse practitioner's note and agree with the documented findings and plan of care.
[2016-04-30] MEDS ORDERED: PEG 3350-NA SULF,BICARB,CL/KCL 4,000 ML BOTTLE PO ONE (15:00)
[2016-04-30] MEDS ORDERED: HEPARIN SODIUM,PORCINE 5,000 UNIT/ML 1 ML VIAL IV STA ×2 (16:01→23:57)
--- NOTE | 2016-04-30 16:09 | P.GSCN ---
History of Present Illness History of present illness: 76-year-old white female I was consulted with the left leg recurrent patient she is having the symptoms since yesterday there is mottling appearance noted of the left lower extremity patient admitted with a low hemoglobin history of A. fib and patient received 1 unit of blood patient has a acute COPD and low- grade fever history of hypertension diabetes On examination patient is very short of breath patient has moderate obesity Neck cyst supple no bruit appreciated chest examination chest has crackles bilateral vascular examination brachial radial pulses are present femorals are 1 + dorsal pedis 1+ on the right side of the left side femoral popliteal segment is not palpable there is no Doppler signal present at the foot the left foot is mottled patient has a patchy discoloration of the lower extremity Patient has ischemic leg left have discussed with the Dr. King patient couldn' t for colonoscopy she had an upper GI bleedingwasnotedIwilldiscusswiththefamilypatienthastobeanticoagulationwithhepari nandangiogram.Discussedwiththefamilyprognosisisguarded Past Medical History Past Medical History: Asthma, Heart Failure, CVA/TIA, Diabetes Mellitus, Hyperlipidemia, Hypertension Additional Past Medical History / Comment(s): Afib. melanoma x 2. pain stimulator in L. hip. [facility] [place] History of Any Multi-Drug Resistant Organisms: None Reported Past Surgical History: Back Surgery, Hysterectomy Additional Past Surgical History / Comment(s): cyst removed from breast Past Anesthesia/Blood Transfusion Reactions: No Reported Reaction Past Psychological History: No Psychological Hx Reported Smoking Status: Current every day smoker Past Alcohol Use History: None Reported Past Drug Use History: None Reported Medications and Allergies Home Medications Medication Instructions Recorded Confirmed Type ALPRAZolam [Xanax] 0.25 mg PO BID 04/27/16 04/27/16 History Albuterol Nebulized [Ventolin 2.5 mg INHALATION RT-QID 04/27/16 04/27/16 History Nebulized] Diltiazem Cd [Cardizem Cd] 240 mg PO DAILY 04/27/16 04/27/16 History Furosemide [Lasix] 20 mg PO PC-LUNCH 04/27/16 04/27/16 History Furosemide [Lasix] 40 mg PO DAILY 04/27/16 04/27/16 History Hydrocodone/Acetaminophen [[place] 1 tab PO BID PRN 04/27/16 04/27/16 History 10-325] Insulin Aspart [NovoLOG] 14 unit SQ AC-SUPPER 04/27/16 04/27/16 History Insulin Aspart [NovoLOG] 18 unit SQ AC-BID@0900,1300 04/27/16 04/27/16 History Insulin Detemir [Levemir] 23 unit SQ HS 04/27/16 04/27/16 History Insulin Detemir [Levemir] 53 unit SQ DAILY@0900 04/27/16 04/27/16 History Losartan Potassium [Cozaar] 50 mg PO HS 04/27/16 04/27/16 History Metoprolol Succinate [Toprol XL] 200 mg PO BID 04/27/16 04/27/16 History Montelukast Sodium [Singulair] 10 mg PO HS 04/27/16 04/27/16 History Pravastatin Sodium [Pravachol] 20 mg PO HS 04/27/16 04/27/16 History Warfarin Sodium [Coumadin] 2 mg PO HS 04/27/16 04/27/16 History Allergies Allergy/AdvReac Type Severity Reaction Status Date / Time Penicillins Allergy Rash/Hives Verified 04/27/16 01:09 Surgical - Exam Vital Signs Temp Pulse Resp BP Pulse Ox 99.9 F H 90 24 138/65 97 04/27/16 00:35 04/27/16 00:35 04/27/16 00:35 04/27/16 00:35 04/27/16 00:35 Results - Labs 04/30/16 09:09 04/30/16 09:09 Abnormal Lab Results - Last 24 Hours (Table) 04/29/16 04/29/16 04/30/16 Range/Units 17:13 21:12 09:09 WBC 10.9 H (3.8-10.6) k/uL RBC 3.34 L (3.80-5.40) m/uL Hgb 7.8 L (11.4-16.0) gm/dL Hct 28.1 L (34.0-46.0) % MCH 23.2 L (25.0-35.0) pg MCHC 27.6 L (31.0-37.0) g/dL RDW 17.1 H (11.5-15.5) % Neutrophils # 9.3 H (1.3-7.7) k/uL Lymphocytes # 0.8 L (1.0-4.8) k/uL PT (9.0-12.0) sec POC Glucose (mg/dL) 162 H 140 H (75-99) mg/dL Total Protein (6.3-8.2) g/dL Albumin (3.5-5.0) g/dL 04/30/16 04/30/16 04/30/16 Range/Units 09:09 09:09 11:43 WBC (3.8-10.6) k/uL RBC (3.80-5.40) m/uL Hgb (11.4-16.0) gm/dL Hct (34.0-46.0) % MCH (25.0-35.0) pg MCHC (31.0-37.0) g/dL RDW (11.5-15.5) % Neutrophils # (1.3-7.7) k/uL Lymphocytes # (1.0-4.8) k/uL PT 13.1 H (9.0-12.0) sec POC Glucose (mg/dL) 217 H (75-99) mg/dL Total Protein 6.1 L (6.3-8.2) g/dL Albumin 2.9 L (3.5-5.0) g/dL Microbiology - Last 24 Hours (Table) 04/27/16 11:36 Blood Culture - Preliminary Blood No Growth after 72 hours 04/27/16 11:43 Blood Culture - Preliminary Blood No Growth after 72 hours Diabetes panel 04/30/16 Range/Units 09:09 Sodium 141 (137-145) mmol/L Potassium 4.2 (3.5-5.1) mmol/L Chloride 102 (98-107) mmol/L Carbon Dioxide 27 (22-30) mmol/L BUN 8 (7-17) mg/dL Creatinine 0.62 (0.52-1.04) mg/dL Glucose 79 (74-99) mg/dL Calcium 8.4 (8.4-10.2) mg/dL AST 18 (14-36) U/L ALT 37 (9-52) U/L Alkaline Phosphatase 61 (38-126) U/L Total Protein 6.1 L (6.3-8.2) g/dL Albumin 2.9 L (3.5-5.0) g/dL Calcium panel 04/30/16 Range/Units 09:09 Calcium 8.4 (8.4-10.2) mg/dL Phosphorus 3.9 (2.5-4.5) mg/dL Albumin 2.9 L (3.5-5.0) g/dL Pituitary panel 04/30/16 Range/Units 09:09 Sodium 141 (137-145) mmol/L Potassium 4.2 (3.5-5.1) mmol/L Chloride 102 (98-107) mmol/L Carbon Dioxide 27 (22-30) mmol/L BUN 8 (7-17) mg/dL Creatinine 0.62 (0.52-1.04) mg/dL Glucose 79 (74-99) mg/dL Calcium 8.4 (8.4-10.2) mg/dL Adrenal panel 04/30/16 Range/Units 09:09 Sodium 141 (137-145) mmol/L Potassium 4.2 (3.5-5.1) mmol/L Chloride 102 (98-107) mmol/L Carbon Dioxide 27 (22-30) mmol/L BUN 8 (7-17) mg/dL Creatinine 0.62 (0.52-1.04) mg/dL Glucose 79 (74-99) mg/dL Calcium 8.4 (8.4-10.2) mg/dL Total Bilirubin 0.4 (0.2-1.3) mg/dL AST 18 (14-36) U/L ALT 37 (9-52) U/L Alkaline Phosphatase 61 (38-126) U/L Total Protein 6.1 L (6.3-8.2) g/dL Albumin 2.9 L (3.5-5.0) g/dL
[2016-04-30] MEDS: HEPARIN SODIUM,PORCINE/D5W PMX 25,000 UNIT in DEXTROSE/WATER 1 500ML.BAG IV SCH (16:20)
--- NOTE | 2016-04-30 16:34 | P.PN ---
Progress Note - Text 76-year-old white female, history of CHF, history of acute COPD, history of atrial fibrillation, history of low hemoglobin, history of 4 DVT bilateral in the past, patient has 5 left lower extremity cold feeling since yesterday today we saw patient had a total appearance of the left lower extremity with no Doppler signal present motor functions are 1+ patient has marked Tenderness Discussed with the daughter about surgical intervention family want conservative management contact daughter she was on went for once when she was at [place] she does not want to go for any major surgical intervention we will start her on heparin and we evaluated her and also does not want any major vascular procedure have discussed with her possibility of amputation and demarcates with you closely
[2016-04-30 17:55] LABS: Glucose,Whole Blood 109 mg/dL (75-99)
[2016-04-30] MEDS: LOSARTAN 50 MG TAB PO SCH (20:52)
[2016-04-30] MEDS: MONTELUKAST 10 MG TAB PO SCH (20:52)
[2016-04-30] MEDS: PRAVASTATIN SODIUM 20 MG TAB PO SCH (20:53)
[2016-04-30 20:57] LABS: Glucose,Whole Blood 213 mg/dL (75-99)
[2016-05-01] MEDS: methylPREDNISolone SOD SUCCI 40 MG/ML 1 ML VIAL IV SCH ×4 (01:15→23:00)
[2016-05-01 06:03] LABS: Anisocytosis Slight; Basophils # (A) 0.2 k/uL (0-0.2); Basophils % (A) 2 %; CH 23.1; CHCM 27.9; Eosinophils % (A) 0 %; HCT 28.1 % (34.0-46.0); HDW 4.08; HGB 7.9 gm/dL (11.4-16.0); Hypochromasia Marked; Luc # (Auto) 0.06; Luc % (Auto) 1; Lymphocytes # (A) 0.4 k/uL (1.0-4.8); Lymphocytes % (A) 4 %; MCH 23.4 pg (25.0-35.0); MCHC 28.2 g/dL (31.0-37.0); Mean Platelet Volume 9.2; Monocytes # (A) 0.2 k/uL (0-1.0); Monocytes % (A) 2 %; Neutrophils # (A) 10.8 k/uL (1.3-7.7); Neutrophils % (A) 92 %; Poikilocytosis Moderate; RBC 3.38 m/uL (3.80-5.40); RDW 17.5 % (11.5-15.5); WBC 11.7 k/uL (3.8-10.6); WBC (Perox) 12.02
[2016-05-01 06:15] LABS: INR 1.4 (<1.1); Partial Thromboplastin Time 46.2 sec (22.0-30.0); Prothrombin Time 13.3 sec (9.0-12.0)
[2016-05-01 06:17] LABS: ALT 44 U/L (9-52); AST 24 U/L (14-36); Alkaline Phosphatase 62 U/L (38-126); Anion Gap 10 mmol/L; Blood Urea Nitrogen 12 mg/dL (7-17); Calcium 8.3 mg/dL (8.4-10.2); Carbon Dioxide 28 mmol/L (22-30); Chloride 97 mmol/L (98-107); Glucose 318 mg/dL (74-99); Magnesium 2.3 mg/dL (1.6-2.3); Non-African American GFR(MDRD) >60 (>60 ml/min/1.73 sqM); Phosphorous 4.5 mg/dL (2.5-4.5); Potassium 4.7 mmol/L (3.5-5.1); Sodium 135 mmol/L (137-145); Total Bilirubin 0.6 mg/dL (0.2-1.3); Total Protein 6.1 g/dL (6.3-8.2)
[2016-05-01] MEDS: MORPHINE SULFATE 2 MG/ML SYRINGE IVP PRN ×2 (06:52→10:30)
[2016-05-01] MEDS: INSULIN LISPRO (humaLOG) 300 UNIT/3 ML VIAL SQ SCH ×7 (07:44→22:52)
[2016-05-01] MEDS: DIGOXIN 250 MCG TAB PO SCH (07:45)
[2016-05-01] MEDS: AZITHROMYCIN 500 MG TAB PO SCH (07:45)
[2016-05-01] MEDS: FUROSEMIDE 40 MG TAB PO SCH (07:46)
[2016-05-01] MEDS: DILTIAZEM CD 240 MG CAP.ER.24H PO SCH (07:46)
[2016-05-01] MEDS: METOPROLOL SUCCINATE (ER) 100 MG TAB.ER.24H PO SCH ×2 (07:46→21:18)
[2016-05-01] MEDS: PANTOPRAZOLE 40 MG/10 ML VIAL IV SCH (07:46)
[2016-05-01 07:53] LABS: Glucose,Whole Blood 341 mg/dL (75-99)
[2016-05-01] MEDS: INSULIN DETEMIR 100 UNIT/ML 10 ML VIAL SQ SCH ×2 (07:53→21:18)
[2016-05-01] MEDS: ALPRAZolam 0.25 MG TAB PO SCH ×2 (07:53→21:18)
[2016-05-01] MEDS: BUDESONIDE 1 MG/2 ML NEBU INHALATION SCH ×3 (09:32→20:02)
[2016-05-01] MEDS: IPRATROPIUM-ALBUTEROL 3 ML NEB INHALATION SCH ×5 (09:32→20:02)
[2016-05-01] MEDS ORDERED: RX INFO: IV CONTRAST WAS GIVEN 1 EACH MISC MISCELLANE PRN (09:41)
--- NOTE | 2016-05-01 09:53 | P.PN ---
Progress Note - Text 76-year-old white female, patient is extremely short of breath when she lays flat she desaturated patient was seen yesterday for ischemic leg we started her on heparin today the color of the leg is better than yesterday but no Doppler signal patient has a Doppler signal and posterior tibial femorals are not palpable there is no calf tenderness noted no GI bleed patient hemoglobin stable We had a long discussion with the family today they do not want any major surgical intervention we will continue with heparin and we will do baseline CT of the abdomen pelvis with reconstruction of both lower extremity follow with you thank you
[2016-05-01] MEDS: SODIUM CHLORIDE 0.9% 1,000 ML IV SCH (11:28)
[2016-05-01 12:05] LABS: Glucose,Whole Blood 349 mg/dL (75-99)
[2016-05-01] MEDS: HEPARIN SODIUM,PORCINE/D5W PMX 25,000 UNIT in DEXTROSE/WATER 1 500ML.BAG IV SCH ×2 (12:13→23:58)
[2016-05-01] MEDS ORDERED: FUROSEMIDE 10 MG/ML 4 ML VIAL IV STA (12:42)
--- NOTE | 2016-05-01 12:52 | P.PN ---
Subjective Principal diagnosis: Anemia Patient is a 76-year-old female with multiple medical problems currently admitted to medical floor. Patient has severe shortness of breath, she has evidence of pneumonia and acute exacerbation of chronic obstructive pulmonary disease and evidence of fluid overload she is followed by pulmonary she is maintained on IV antibiotic IV Lasix and IV steroids and inhaled bronchodilators he has been improving gradually. Patient has chronic anemia which has required red blood cell transfusion during this admission, she had an EGD which was unremarkable 2 month ago, we have been and able to proceed was colonoscopy due to her multiple comorbidities. Yesterday she developed a bluish discoloration with coldness of her left lower extremity, lower extremity Doppler was negative for DVT she was seen by Dr. García vascular surgeon she was started on IV heparin and her leg improved significantly. Objective - Vital Signs Vital signs: Vital Signs Temp 97.1 F L 05/01/16 07:00 Pulse 100 05/01/16 12:28 Resp 20 05/01/16 07:00 BP 134/75 05/01/16 07:00 Pulse Ox 92 L 05/01/16 07:00 Intake & Output 04/30/16 05/01/16 05/01/16 18:59 06:59 18:59 Intake Total 560 839.751 612.993 Balance 560 839.751 612.993 Weight 100.5 kg Intake: Intake, IV Titration 139.751 372.993 Amount Heparin Sodium,Porcine/ 139.751 372.993 D5w Pmx 25,000 unit In Dextrose/Water 1 500ml. bag @ 8.5 UNITS/KG/HR 20. 06 mls/hr IV .Q24H [facility] Rx #:[id number] Oral 560 700 240 Other: Voiding Method Bedpan Bedpan Bedpan # Voids 3 2 # Bowel Movements 5 2 - Exam HEENT head normocephalic and atraumatic Neck is supple no JVD no goiter no lymphadenopathy Chest exam was a scattered crackles bilaterally no wheezing Cardiac exam reveals regular heart sounds no gallops no murmurs Abdomen is soft nontender no organomegaly Extremity exam reveals no edema no cyanosis or clubbing - Labs CBC & Chem 7: 05/01/16 05:35 05/01/16 05:35 Labs: Abnormal Lab Results - Last 24 Hours (Table) 04/30/16 04/30/16 04/30/16 Range/Units 17:00 20:39 22:17 WBC (3.8-10.6) k/uL RBC (3.80-5.40) m/uL Hgb (11.4-16.0) gm/dL Hct (34.0-46.0) % MCH (25.0-35.0) pg MCHC (31.0-37.0) g/dL RDW (11.5-15.5) % Neutrophils # (1.3-7.7) k/uL Lymphocytes # (1.0-4.8) k/uL PT (9.0-12.0) sec APTT 30.4 H (22.0-30.0) sec Sodium (137-145) mmol/L Chloride (98-107) mmol/L Glucose (74-99) mg/dL POC Glucose (mg/dL) 109 H 213 H (75-99) mg/dL Calcium (8.4-10.2) mg/dL Total Protein (6.3-8.2) g/dL Albumin (3.5-5.0) g/dL 05/01/16 05/01/16 05/01/16 Range/Units 05:35 05:35 05:35 WBC 11.7 H (3.8-10.6) k/uL RBC 3.38 L (3.80-5.40) m/uL Hgb 7.9 L (11.4-16.0) gm/dL Hct 28.1 L (34.0-46.0) % MCH 23.4 L (25.0-35.0) pg MCHC 28.2 L (31.0-37.0) g/dL RDW 17.5 H (11.5-15.5) % Neutrophils # 10.8 H (1.3-7.7) k/uL Lymphocytes # 0.4 L (1.0-4.8) k/uL PT 13.3 H (9.0-12.0) sec APTT 46.2 H (22.0-30.0) sec Sodium 135 L (137-145) mmol/L Chloride 97 L (98-107) mmol/L Glucose 318 H (74-99) mg/dL POC Glucose (mg/dL) (75-99) mg/dL Calcium 8.3 L (8.4-10.2) mg/dL Total Protein 6.1 L (6.3-8.2) g/dL Albumin 3.0 L (3.5-5.0) g/dL 05/01/16 05/01/16 05/01/16 Range/Units 07:18 11:04 11:49 WBC (3.8-10.6) k/uL RBC (3.80-5.40) m/uL Hgb (11.4-16.0) gm/dL Hct (34.0-46.0) % MCH (25.0-35.0) pg MCHC (31.0-37.0) g/dL RDW (11.5-15.5) % Neutrophils # (1.3-7.7) k/uL Lymphocytes # (1.0-4.8) k/uL PT (9.0-12.0) sec APTT 42.8 H (22.0-30.0) sec Sodium (137-145) mmol/L Chloride (98-107) mmol/L Glucose (74-99) mg/dL POC Glucose (mg/dL) 341 H 349 H (75-99) mg/dL Calcium (8.4-10.2) mg/dL Total Protein (6.3-8.2) g/dL Albumin (3.5-5.0) g/dL Microbiology - Last 24 Hours (Table) 04/27/16 11:36 Blood Culture - Preliminary Blood No Growth after 72 hours 04/27/16 11:43 Blood Culture - Preliminary Blood No Growth after 72 hours Assessment and Plan Plan: 1. Acute symptomatic anemia secondary to chronic blood loss and suspected lower GI bleed. Patient received 2 unit of PRBCs since admission. She had an EGD last month during her last hospitalization at [facility] that was unremarkable. She was seen and evaluated by gastroenterology. Patient's colonoscopy he is scheduled again for tomorrow. Canceled today due to fluid overload and poor bowel prep. Patient will be rescheduled for colonoscopy tomorrow 2. Underlying pneumonia with sepsis on presentation, continue IV antibiotics 3. Acute COPD exacerbation seen and evaluated by pulmonology. Continue bronchodilator and inhaled steroids. Patient had been having wheezing this morning as well. Could be related to some fluid overload as well as her COPD exacerbation pulmonate service has started patient on IV Solu-Medrol 4. Paroxysmal atrial fibrillation on anticoagulation with Coumadin: Currently on hold awaiting further evaluation of underlying anemia. Patient has been having episodes of atrial fibrillation with rapid ventricular response. Evaluated by cardiology. They've added digoxin to her regimen of medications. Appreciate their input 5. 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 Diabetes mellitus insulin-dependent. Continue home insulin. We'll change sliding scale to the steroid scale 8. Fluid overload will give patient another dose of IV Lasix. 9. Anemia, will give 1 unit of RBCs monitor labs closely 10. 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 Family does not want any extensive surgical intervention, at this time his plan is to proceed with angiogram.
--- NOTE | 2016-05-01 13:12 | PN ---
DATE OF SERVICE: 05/01/2016 HISTORY OF PRESENT ILLNESS: The patient is a 76-year-old female who is admitted with problems with GI bleed, generalized weakness and shortness of breath, where she initially had been being treated with pneumonia and sepsis. The patient has had EGD since she has been here, which showed no bleed. She was to have a colonoscopy, was unable to complete prep due to problems with left lower extremity becoming mottled blue and cold and was seen by Vascular Surgery. She was started on heparin drip. She is seen today. She has had no active bleeding noted. Hemoglobin is 7.9 today. Leg is examined and is warm, appears to be a pulse up in the groin area. She does have a significant history also for atrial fibrillation where it has been controlled and she has been also seen by Cardiology. She has a significant medical history for asthma, CVA, diabetes mellitus, hypertension, dyslipidemia, and chronic back pain where she does have a pain stimulator. She was sent down to have a CT of the abdomen and extremities and unfortunately she was unable to get prep due to her IV. Plans are to attempt this again later today. She is denying any pain at this time. Lung sounds somewhat wet. She has no nausea, vomiting or diarrhea. Family is at bedside. Appears they want no surgical intervention for leg at this point. On physical examination, vital signs show temperature of 97.1, heart rate 97, respiratory rate 20, blood pressure is 134/75, oxygen saturation 92% on 5 L. Labs show WBC is 11.7, hemoglobin 7.9, hematocrit 28.1, platelets are 202. PT 13.3, INR 1.4, PTT 42.8. Sodium is 135, potassium 4.7, chloride 97, carbon dioxide 28, BUN 12, creatinine 0.6. Glucose is 349. Calcium 8.3, phosphorus is 4.5, magnesium 2.3, total bilirubin 0.6, AST is 24, ALT 44, alkaline phosphatase 62, total protein 6.1. Albumin is 3. Blood cultures have been negative. GENERAL: She is a 76-year-old female comfortable at this time. HEENT: Pupils are reactive. Mucous membranes somewhat dry. NECK: Short, supple, thick. LUNG SOUNDS: Rales heard bilaterally, mostly at the bases, somewhat coarse anteriorly. CARDIOVASCULAR: S1 and S2 is heard, irregular. ABDOMEN: Soft, obese. EXTREMITIES: No significant edema. Left foot slightly cooler than right. No palpable pulse felt though nursing staff states she does have pulse noted in groin area. NEUROLOGIC: She is awake, alert. IMPRESSION: 1. Gastrointestinal bleed on admission symptomatic. 2. Pneumonia. 3. Atrial fibrillation. 4. Sepsis. 5. Acute exacerbation of chronic obstructive pulmonary disease. 6. Hypertension. 7. Diabetes mellitus. 8. Left leg ischemia. PLAN: Continue with her medications as ordered, which have been reviewed. Continue with nebulizer treatments. Continue with antibiotics. Continue with heparin, which appears to be helping with left lower extremity ischemia. Continue to monitor for any GI bleed. Colonoscopy has been postponed. They are attempting to redo CAT scan of the abdomen and extremities. Continue with pain medicine as needed. Family states that they want no significant surgical intervention at this time. We will continue to follow patient closely with you and make further changes as necessary. She should have repeat labs in the morning and re-evaluate as needed for blood transfusion.
--- NOTE | 2016-05-01 16:24 | CT ---
EXAMINATION TYPE: CT angio abd aorta wo/w con DATE OF EXAM: 05/01/2016 3:54 PM COMPARISON: NONE HISTORY: Abnormal Doppler CT DLP: 3940 mGycm Automated exposure control for dose reduction was used. TECHNIQUE: Performed with IV Contrast, patient injected with 125 mL of Omnipaque 350. . FINDINGS: There are 3-D post processed images. There are bilateral pleural effusions and larger on the right side. There is basilar pulmonary infilt rate and atelectasis. Heart is enlarged. Abdominal aorta is atheromatous. There is patency of the sup erior mesenteric artery and the celiac artery. There is diffuse atherosclerotic plaque formation. Exa m is limited by metal artifact from the back surgery. There is contrast opacification of the common i nternal and external iliac arteries bilaterally. There is limited contrast opacification of the left femoral artery. There is normal contrast opacification of the right femoral artery. There appears to be complete occlusion of the left femoral artery. There is collateral flow and contrast opacification of the left tibial artery and the tibial artery trifurcation. Liver spleen pancreas appear normal. Bile ducts are not dilated. Kidneys show no hydronephrosis. Ther e is no retroperitoneal adenopathy. There is anterior and posterior tibial artery flow at the ankles. There is bilateral patency of the renal arteries. IMPRESSION: DIFFUSE ATHEROSCLEROTIC VASCULAR DISEASE. THERE IS EVIDENCE OF COMPLETE OCCLUSION OF THE LEFT FEMORAL ARTERY NEAR ITS ORIGIN WITH COLLATERAL FLOW RECONSTITUTING THE TIBIAL ARTERY BELOW THE KNEE. BILATERAL PLEURAL EFFUSIONS AND BASILAR ATELECTASIS APPEARS MUCH WORSE THAN THE RECENT CT SCAN FROM . CARDIOMEGALY. THERE IS SIGNIFICANT PLAQUE SEEN AT THE ORIGINS OF THE CELIAC ARTERY AND SUPER IOR MESENTERIC ARTERY AND THE LUMEN IS NOT WELL DEFINED.
[2016-05-01 17:16] LABS: Glucose,Whole Blood 394 mg/dL (75-99)
[2016-05-01] MEDS: PRAVASTATIN SODIUM 20 MG TAB PO SCH (21:18)
[2016-05-01] MEDS: LOSARTAN 50 MG TAB PO SCH (21:18)
[2016-05-01] MEDS: MONTELUKAST 10 MG TAB PO SCH (21:18)
[2016-05-01 21:22] LABS: Glucose,Whole Blood 350 mg/dL (75-99)
[2016-05-01] MEDS ORDERED: INSULIN LISPRO (humaLOG) 300 UNIT/3 ML VIAL SQ ONE (22:48)
[2016-05-01 22:53] LABS: Glucose,Whole Blood 336 mg/dL (75-99)
[2016-05-02 07:39] LABS: Glucose,Whole Blood 426 mg/dL (75-99)
[2016-05-02] MEDS: INSULIN LISPRO (humaLOG) 300 UNIT/3 ML VIAL SQ SCH ×8 (07:42→20:51)
[2016-05-02] MEDS: methylPREDNISolone SOD SUCCI 40 MG/ML 1 ML VIAL IV SCH ×2 (07:42→20:53)
[2016-05-02] MEDS: AZITHROMYCIN 500 MG TAB PO SCH (07:43)
[2016-05-02] MEDS: DILTIAZEM CD 240 MG CAP.ER.24H PO SCH (07:43)
[2016-05-02] MEDS: ALPRAZolam 0.25 MG TAB PO SCH ×2 (07:43→20:51)
[2016-05-02] MEDS: BUDESONIDE 1 MG/2 ML NEBU INHALATION SCH ×2 (07:43→20:27)
[2016-05-02] MEDS: IPRATROPIUM-ALBUTEROL 3 ML NEB INHALATION SCH ×4 (07:43→20:27)
[2016-05-02] MEDS: DIGOXIN 250 MCG TAB PO SCH (07:43)
[2016-05-02] MEDS: METOPROLOL SUCCINATE (ER) 100 MG TAB.ER.24H PO SCH ×2 (07:44→20:53)
[2016-05-02] MEDS: PANTOPRAZOLE 40 MG/10 ML VIAL IV SCH (07:44)
[2016-05-02] MEDS: FUROSEMIDE 40 MG TAB PO SCH (07:44)
[2016-05-02] MEDS: INSULIN DETEMIR 100 UNIT/ML 10 ML VIAL SQ SCH ×2 (07:44→21:03)
[2016-05-02 09:12] LABS: Anisocytosis Slight; CH 23.8; CHCM 27.7; HDW 4.15; HGB 9.2 gm/dL (11.4-16.0); Hypochromasia Marked; MCH 23.9 pg (25.0-35.0); MCV 85.9 fL (80.0-100.0); Mean Platelet Volume 9.3; Poikilocytosis Moderate; RBC 3.85 m/uL (3.80-5.40); RDW 17.3 % (11.5-15.5); WBC (Perox) 27.46
[2016-05-02 09:18] LABS: INR 1.3 (<1.1); Partial Thromboplastin Time 60.7 sec (22.0-30.0)
[2016-05-02 09:21] LABS: MCHC 27.8 g/dL (31.0-37.0)
[2016-05-02 09:23] LABS: ALT 30 U/L (9-52); AST 12 U/L (14-36); Alkaline Phosphatase 74 U/L (38-126); Anion Gap 15 mmol/L; Blood Urea Nitrogen 22 mg/dL (7-17); Calcium 8.8 mg/dL (8.4-10.2); Carbon Dioxide 27 mmol/L (22-30); Chloride 96 mmol/L (98-107); Glucose 434 mg/dL (74-99); Magnesium 2.3 mg/dL (1.6-2.3); Non-African American GFR(MDRD) >60 (>60 ml/min/1.73 sqM); Phosphorous 4.6 mg/dL (2.5-4.5); Potassium 4.7 mmol/L (3.5-5.1); Sodium 138 mmol/L (137-145); Total Bilirubin 0.4 mg/dL (0.2-1.3); Total Protein 6.6 g/dL (6.3-8.2); WBC 25.7 k/uL (3.8-10.6)
[2016-05-02] MEDS: HYDROcodone/APAP 10-325MG 1 EACH TAB PO PRN (10:07)
--- NOTE | 2016-05-02 10:57 | P.PN ---
Subjective Principal diagnosis: Anemia Patient is a 76-year-old female with multiple medical problems currently admitted to medical floor. Patient has severe shortness of breath, she has evidence of pneumonia and acute exacerbation of chronic obstructive pulmonary disease and evidence of fluid overload she is followed by pulmonary she is maintained on IV antibiotic IV Lasix and IV steroids and inhaled bronchodilators he has been improving gradually. Patient has chronic anemia which has required red blood cell transfusion during this admission, she had an EGD which was unremarkable 2 month ago, we have been and able to proceed was colonoscopy due to her multiple comorbidities. Yesterday she developed a bluish discoloration with coldness of her left lower extremity, lower extremity Doppler was negative for DVT she was seen by Dr. García vascular surgeon she was started on IV heparin and her leg improved significantly. Objective - Vital Signs Vital signs: Vital Signs Temp 97.7 F 05/02/16 07:00 Pulse 88 05/02/16 08:07 Resp 22 05/02/16 07:00 BP 156/72 05/02/16 07:00 Pulse Ox 90 L 05/02/16 07:00 Intake & Output 05/01/16 05/02/16 05/02/16 17:59 06:59 18:59 Intake Total 592.427 Balance 592.427 Weight Intake: Intake, IV Titration 352.427 Amount Heparin Sodium,Porcine/ 352.427 D5w Pmx 25,000 unit In Dextrose/Water 1 500ml. bag @ 8.5 UNITS/KG/HR 20. 06 mls/hr IV .Q24H [facility] Rx #:[id number] Oral 240 Blood Product Rc As-1 Unit [id number] Other: Voiding Method Bedpan # Voids 1 # Bowel Movements 1 - Exam HEENT head normocephalic and atraumatic Neck is supple no JVD no goiter no lymphadenopathy Chest exam was a scattered crackles bilaterally no wheezing Cardiac exam reveals regular heart sounds no gallops no murmurs Abdomen is soft nontender no organomegaly Extremity exam reveals no edema no cyanosis or clubbing - Labs CBC & Chem 7: 05/02/16 08:21 05/02/16 08:21 Labs: Abnormal Lab Results - Last 24 Hours (Table) 05/01/16 05/01/16 05/01/16 Range/Units 11:04 11:49 13:12 WBC (3.8-10.6) k/uL Hgb (11.4-16.0) gm/dL Hct (34.0-46.0) % MCH (25.0-35.0) pg MCHC (31.0-37.0) g/dL RDW (11.5-15.5) % PT (9.0-12.0) sec APTT 42.8 H (22.0-30.0) sec Chloride (98-107) mmol/L BUN (7-17) mg/dL Glucose (74-99) mg/dL POC Glucose (mg/dL) 349 H (75-99) mg/dL Phosphorus (2.5-4.5) mg/dL AST (14-36) U/L Albumin (3.5-5.0) g/dL Crossmatch See Detail 05/01/16 05/01/16 05/01/16 Range/Units 16:44 17:14 21:11 WBC (3.8-10.6) k/uL Hgb (11.4-16.0) gm/dL Hct (34.0-46.0) % MCH (25.0-35.0) pg MCHC (31.0-37.0) g/dL RDW (11.5-15.5) % PT (9.0-12.0) sec APTT 44.9 H (22.0-30.0) sec Chloride (98-107) mmol/L BUN (7-17) mg/dL Glucose (74-99) mg/dL POC Glucose (mg/dL) 394 H 350 H (75-99) mg/dL Phosphorus (2.5-4.5) mg/dL AST (14-36) U/L Albumin (3.5-5.0) g/dL Crossmatch 05/01/16 05/01/16 05/02/16 Range/Units 22:46 23:05 07:27 WBC (3.8-10.6) k/uL Hgb (11.4-16.0) gm/dL Hct (34.0-46.0) % MCH (25.0-35.0) pg MCHC (31.0-37.0) g/dL RDW (11.5-15.5) % PT (9.0-12.0) sec APTT 57.2 H (22.0-30.0) sec Chloride (98-107) mmol/L BUN (7-17) mg/dL Glucose (74-99) mg/dL POC Glucose (mg/dL) 336 H 426 H (75-99) mg/dL Phosphorus (2.5-4.5) mg/dL AST (14-36) U/L Albumin (3.5-5.0) g/dL Crossmatch 05/02/16 05/02/16 05/02/16 Range/Units 08:21 08:21 08:21 WBC 25.7 H* (3.8-10.6) k/uL Hgb 9.2 L (11.4-16.0) gm/dL Hct 33.0 L (34.0-46.0) % MCH 23.9 L (25.0-35.0) pg MCHC 27.8 L (31.0-37.0) g/dL RDW 17.3 H (11.5-15.5) % PT 13.0 H (9.0-12.0) sec APTT 60.7 H (22.0-30.0) sec Chloride 96 L (98-107) mmol/L BUN 22 H (7-17) mg/dL Glucose 434 H (74-99) mg/dL POC Glucose (mg/dL) (75-99) mg/dL Phosphorus 4.6 H (2.5-4.5) mg/dL AST 12 L (14-36) U/L Albumin 3.3 L (3.5-5.0) g/dL Crossmatch Microbiology - Last 24 Hours (Table) 04/27/16 11:36 Blood Culture - Preliminary Blood No Growth after 96 hours 04/27/16 11:43 Blood Culture - Preliminary Blood No Growth after 96 hours Assessment and Plan Plan: 1. Acute symptomatic anemia secondary to chronic blood loss and suspected lower GI bleed. Patient received 2 unit of PRBCs since admission. She had an EGD last month during her last hospitalization at [facility] that was unremarkable. She was seen and evaluated by gastroenterology. Patient's colonoscopy he is scheduled again for tomorrow. Canceled today due to fluid overload and poor bowel prep. Patient will be rescheduled for colonoscopy tomorrow 2. Underlying pneumonia with sepsis on presentation, continue IV antibiotics 3. Acute COPD exacerbation seen and evaluated by pulmonology. Continue bronchodilator and inhaled steroids. Patient had been having wheezing this morning as well. Could be related to some fluid overload as well as her COPD exacerbation pulmonate service has started patient on IV Solu-Medrol 4. Paroxysmal atrial fibrillation on anticoagulation with Coumadin: Currently on hold awaiting further evaluation of underlying anemia. Patient has been having episodes of atrial fibrillation with rapid ventricular response. Evaluated by cardiology. They've added digoxin to her regimen of medications. Appreciate their input 5. 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 Diabetes mellitus insulin-dependent. Continue home insulin. We'll change sliding scale to the steroid scale 8. Fluid overload will give patient another dose of IV Lasix. 9. Anemia, will give 1 unit of RBCs monitor labs closely 10. 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 Family does not want any extensive surgical intervention, at this time his plan is to proceed with angiogram. Input from Dr. García reviewed no surgical intervention planned at this time patient can be restarted on Coumadin.
[2016-05-02] MEDS: SODIUM CHLORIDE 0.9% 1,000 ML IV SCH (10:58)
[2016-05-02] MEDS: HEPARIN SODIUM,PORCINE/D5W PMX 25,000 UNIT in DEXTROSE/WATER 1 500ML.BAG IV SCH (11:30)
[2016-05-02 12:14] LABS: Glucose,Whole Blood 423 mg/dL (75-99)
[2016-05-02 12:15] LABS: Add Differential Manual Differential
[2016-05-02 12:16] LABS: Nucleated Red Blood Cells 0 /100 WBC (0-0); Total Cells Counted 100
[2016-05-02 12:17] LABS: Polychromasia Present; Toxic Vacuolation Present
[2016-05-02 12:18] LABS: Hypersegmented Neutrophils Present
[2016-05-02] MEDS ORDERED: FUROSEMIDE 10 MG/ML 4 ML VIAL IV STA (12:53)
--- NOTE | 2016-05-02 13:10 | PN ---
DATE OF SERVICE: 05/02/2016 HISTORY OF PRESENT ILLNESS: Patient is a 76-year-old female who came in with problems with GI bleed, shortness of breath and weakness and being treated also for sepsis with pneumonia. She did have an EGD, which showed no active bleeding and she initially was to have a colonoscopy where she was unable to complete prep due to problems with left lower extremity developing ischemia. Patient had been started on heparin drip. Her left lower extremity showed some mild improvement today per staff, but appears that she had been doing little bit better yesterday. To me her leg is a little bit more mottled and cooler, though staff states that it comes and goes as far as coldness and mottling. She does remain on Lasix and she would benefit from having colonoscopy to see if she is actively bleeding from anywhere since she most likely would not be a surgical candidate for removing clot which appears to be in femoral area and would continue with anticoagulant. She did receive a unit of packed red blood cells yesterday with Lasix afterwards. She still is short of breath without activity. She still has occasional cough. Her WBCs and glucose are both very elevated, will titrate her steroids down some. She denies any nausea, vomiting at this time. No chest pain. Her status was discussed with her in detail today. On physical examination, vital signs show temperature of 97.7, heart rate 88, respiratory rate 22, blood pressure is 156/72, oxygen saturation on 5 L is 90%. Labs show WBC of 25.7, hemoglobin 9.2, hematocrit 33, platelets are 239, PT 13, INR is 1.3, PTT is 60.7. Sodium is 138, potassium 4.7, chloride 96, CO2 of 27, BUN 22, creatinine is 0.85. Glucose is 423. Calcium is 8.8. Phosphorus is 4.6. Magnesium is 2.3. Total bilirubin 0.4, AST 12, ALT 38, alkaline phosphatase 74, total protein 6.6. Albumin is 3.3. Blood cultures are showing no growth. CT angio that was eventually able to be done yesterday showed diffuse atherosclerotic vascular disease with evidence of complete occlusion of left femoral artery near its origin with collateral flow reconstituting the tibial artery below the knee and bilateral pleural effusions and basilar atelectasis appears much worse than the recent CAT scan from 04/26/2016 with cardiomegaly and significant plaque seen as origins of the celiac artery and superior mesenteric artery in the lumen is not well defined. GENERAL: She is a 76-year-old female who appears short of breath without activity. HEENT: Pupils are reactive. Mucous membranes are very dry. Neck is short, supple, thick. Lung sounds are diminished with wheezes heard on expiration and rales. CARDIOVASCULAR: S1, S2 heard, irregular at times, distant. ABDOMEN: Soft, obese. EXTREMITIES: No edema. Left leg is slightly mottled and cool compared to right leg. NEUROLOGIC: She is easily awakened and alert. IMPRESSION: 1. Pneumonia on admission. 2. Bilateral pleural effusions, worsening. 3. Left ischemic leg with complete occlusion of left femoral artery. 4. Leukocytosis. 5. Diabetes mellitus, uncontrolled. 6. Gastrointestinal bleed, symptomatic on admission. 7. Atrial fibrillation. 8. Sepsis. 9. Acute exacerbation of chronic obstructive pulmonary disease. 10. Hypertension. PLAN: Patient's steroids will be adjusted. She needs repeat labs in the morning. Continue with heparin, continue to monitor for GI bleed. Patient's condition was explained to her again in detail and complications that she could have with any surgical intervention, though it is highly recommend that she still have a colonoscopy to see if she is bleeding anywhere and can be corrected. She has shown some improvement with heparin. Of note, she does have a at home, who is dying from cancer. She did state that all she wanted was to be able to get around to be able to help him. Continue with GI and DVT prophylaxis. Continue with oxygen to keep her sats 88% or better. Continue with antibiotics and nebulizer treatments as ordered. Continue with her Lasix as ordered. Will continue with supportive care. KEREN
[2016-05-02 17:36] LABS: Glucose,Whole Blood 310 mg/dL (75-99)
--- NOTE | 2016-05-02 19:10 | P.PN ---
Subjective Principal diagnosis: Anemia and suspected GI bleeding The patient is a 76-year-old female with anemia and suspected GI bleeding. She had an upper endoscopy around 2 months ago and we were in the process of preparing her for colonoscopy this admission. This is now on hold after she developed ischemic changes in her left foot which has improved while on IV heparin. The patient declined surgical intervention for her vascular disease. She is doing well with no abdominal complaints or overt bleeding at this time. Objective - Vital Signs Vital signs: Vital Signs Temp 97.2 F L 05/02/16 15:00 Pulse 84 05/02/16 16:26 Resp 22 05/02/16 15:00 BP 133/72 05/02/16 15:00 Pulse Ox 95 05/02/16 15:00 Intake & Output 05/02/16 05/02/16 05/03/16 06:59 18:59 06:59 Intake Total 675.027 Balance 675.027 Weight Intake: Intake, IV Titration 435.027 Amount Heparin Sodium,Porcine/ 435.027 D5w Pmx 25,000 unit In Dextrose/Water 1 500ml. bag @ 8.5 UNITS/KG/HR 20. 06 mls/hr IV .Q24H [facility] Rx #:[id number] Oral 240 Other: Voiding Method Bedpan # Voids 3 # Bowel Movements 1 - Exam General appearance: The patient is alert, oriented, in no acute distress. HET: Head is normocephalic and atraumatic. Pupils are equal and reactive. Oropharynx is clear without lesions. Neck: Supple without lymphadenopathy. Trachea midline. Heart: S1 S2. Lungs: Expiratory wheezes. Bibasilar crackles. Abdomen: Soft, nontender, nondistended with bowel sounds. No peritoneal signs. No palpable organomegaly or masses. Extremities: Normal skin color and turgor. No cyanosis, rash, ulceration, clubbing, or edema. Radial and pedal pulses are 2/4 bilaterally. Neurological: No focal deficits. Strength and sensation are grossly intact. - Labs CBC & Chem 7: 05/02/16 08:21 05/02/16 08:21 Labs: Abnormal Lab Results - Last 24 Hours (Table) 05/01/16 05/01/16 05/01/16 Range/Units 21:11 22:46 23:05 WBC (3.8-10.6) k/uL Hgb (11.4-16.0) gm/dL Hct (34.0-46.0) % MCH (25.0-35.0) pg MCHC (31.0-37.0) g/dL RDW (11.5-15.5) % Neutrophils # (Manual) (1.3-7.7) k/uL Lymphocytes # (Manual) (1.0-4.8) k/uL PT (9.0-12.0) sec APTT 57.2 H (22.0-30.0) sec Chloride (98-107) mmol/L BUN (7-17) mg/dL Glucose (74-99) mg/dL POC Glucose (mg/dL) 350 H 336 H (75-99) mg/dL Phosphorus (2.5-4.5) mg/dL AST (14-36) U/L Albumin (3.5-5.0) g/dL 05/02/16 05/02/16 05/02/16 Range/Units 07:27 08:21 08:21 WBC 25.7 H* (3.8-10.6) k/uL Hgb 9.2 L (11.4-16.0) gm/dL Hct 33.0 L (34.0-46.0) % MCH 23.9 L (25.0-35.0) pg MCHC 27.8 L (31.0-37.0) g/dL RDW 17.3 H (11.5-15.5) % Neutrophils # (Manual) 24.4 H (1.3-7.7) k/uL Lymphocytes # (Manual) 0.8 L (1.0-4.8) k/uL PT 13.0 H (9.0-12.0) sec APTT 60.7 H (22.0-30.0) sec Chloride (98-107) mmol/L BUN (7-17) mg/dL Glucose (74-99) mg/dL POC Glucose (mg/dL) 426 H (75-99) mg/dL Phosphorus (2.5-4.5) mg/dL AST (14-36) U/L Albumin (3.5-5.0) g/dL 05/02/16 05/02/16 05/02/16 Range/Units 08:21 12:12 17:34 WBC (3.8-10.6) k/uL Hgb (11.4-16.0) gm/dL Hct (34.0-46.0) % MCH (25.0-35.0) pg MCHC (31.0-37.0) g/dL RDW (11.5-15.5) % Neutrophils # (Manual) (1.3-7.7) k/uL Lymphocytes # (Manual) (1.0-4.8) k/uL PT (9.0-12.0) sec APTT (22.0-30.0) sec Chloride 96 L (98-107) mmol/L BUN 22 H (7-17) mg/dL Glucose 434 H (74-99) mg/dL POC Glucose (mg/dL) 423 H 310 H (75-99) mg/dL Phosphorus 4.6 H (2.5-4.5) mg/dL AST 12 L (14-36) U/L Albumin 3.3 L (3.5-5.0) g/dL Microbiology - Last 24 Hours (Table) 04/27/16 11:36 Blood Culture - Preliminary Blood No Growth after 120 hours 04/27/16 11:43 Blood Culture - Preliminary Blood No Growth after 120 hours Assessment and Plan Plan: Assessment and Plan (1) GI bleed Status: Acute (2) Symptomatic anemia Status: Acute (3) Acute blood loss anemia Narrative/Plan: Reported positive Hemoccult testing in the outpatient setting status post EGD evaluation 2 months ago at outside facility reported as normal. Status: Acute (4) COPD (chronic obstructive pulmonary disease) Status: Acute Plan: Will continue to follow up and monitor monitor closely with you. The patient is now on a regular diet and I have not restarted her colonoscopy prep at this time. I will discuss with you and Dr. García the optimal time of such evaluation.
[2016-05-02 20:29] LABS: Glucose,Whole Blood 313 mg/dL (75-99)
[2016-05-02] MEDS: LOSARTAN 50 MG TAB PO SCH (20:52)
[2016-05-02] MEDS: PRAVASTATIN SODIUM 20 MG TAB PO SCH (20:53)
[2016-05-02] MEDS: MONTELUKAST 10 MG TAB PO SCH (20:53)
[2016-05-03] MEDS: HEPARIN SODIUM,PORCINE/D5W PMX 25,000 UNIT in DEXTROSE/WATER 1 500ML.BAG IV SCH ×2 (00:46→23:38)
[2016-05-03 07:32] LABS: Glucose,Whole Blood 298 mg/dL (75-99)
[2016-05-03] MEDS: BUDESONIDE 1 MG/2 ML NEBU INHALATION SCH ×2 (08:18→20:31)
[2016-05-03] MEDS: IPRATROPIUM-ALBUTEROL 3 ML NEB INHALATION SCH ×4 (08:18→20:31)
[2016-05-03] MEDS: INSULIN LISPRO (humaLOG) 300 UNIT/3 ML VIAL SQ SCH ×5 (08:41→17:51)
[2016-05-03 09:14] LABS: CH 23.4; CHCM 27.3; HCT 33.6 % (34.0-46.0); HGB 9.3 gm/dL (11.4-16.0); MCH 23.6 pg (25.0-35.0); MCV 85.6 fL (80.0-100.0); RBC 3.93 m/uL (3.80-5.40); WBC 20.2 k/uL (3.8-10.6); WBC (Perox) 21.17
[2016-05-03 09:15] LABS: Anisocytosis Slight; Basophils % (A) 0 %; Eosinophils # (A) 0.1 k/uL (0-0.7); Eosinophils % (A) 0 %; Hypochromasia Marked; Luc # (Auto) 0.13; Luc % (Auto) 1; Lymphocytes # (A) 0.7 k/uL (1.0-4.8); Lymphocytes % (A) 4 %; Mean Platelet Volume 8.1; Monocytes # (A) 0.5 k/uL (0-1.0); Monocytes % (A) 3 %; Neutrophils # (A) 18.8 k/uL (1.3-7.7); Neutrophils % (A) 93 %; Poikilocytosis Moderate; RDW 16.8 % (11.5-15.5)
[2016-05-03 09:25] LABS: MCHC 27.5 g/dL (31.0-37.0)
[2016-05-03 09:50] LABS: ALT 34 U/L (9-52); AST 18 U/L (14-36); Alkaline Phosphatase 71 U/L (38-126); Anion Gap 12 mmol/L; Blood Urea Nitrogen 27 mg/dL (7-17); Calcium 9.2 mg/dL (8.4-10.2); Carbon Dioxide 30 mmol/L (22-30); Chloride 100 mmol/L (98-107); Glucose 289 mg/dL (74-99); Non-African American GFR(MDRD) >60 (>60 ml/min/1.73 sqM); Potassium 4.8 mmol/L (3.5-5.1); Sodium 142 mmol/L (137-145); Total Bilirubin 0.4 mg/dL (0.2-1.3); Total Protein 6.5 g/dL (6.3-8.2)
[2016-05-03] MEDS: ALPRAZolam 0.25 MG TAB PO SCH ×2 (10:49→21:31)
[2016-05-03] MEDS: AZITHROMYCIN 500 MG TAB PO SCH (10:56)
[2016-05-03] MEDS: DIGOXIN 250 MCG TAB PO SCH (10:56)
[2016-05-03] MEDS: methylPREDNISolone SOD SUCCI 40 MG/ML 1 ML VIAL IV SCH ×2 (10:57→21:32)
[2016-05-03] MEDS: PANTOPRAZOLE 40 MG/10 ML VIAL IV SCH (10:57)
[2016-05-03] MEDS: DILTIAZEM CD 240 MG CAP.ER.24H PO SCH (10:57)
[2016-05-03] MEDS: METOPROLOL SUCCINATE (ER) 100 MG TAB.ER.24H PO SCH ×2 (10:57→21:32)
[2016-05-03] MEDS: FUROSEMIDE 40 MG TAB PO SCH (10:57)
[2016-05-03] MEDS: HYDROcodone/APAP 10-325MG 1 EACH TAB PO PRN (11:06)
[2016-05-03] MEDS: INSULIN DETEMIR 100 UNIT/ML 10 ML VIAL SQ SCH (11:07)
[2016-05-03] MEDS: SODIUM CHLORIDE 0.9% 1,000 ML IV SCH (11:08)
--- NOTE | 2016-05-03 11:36 | P.PN ---
Progress Note - Text 76 old white female, patient was seen for ischemic of the left leg patient put on heparin she has history of COPD and patient is under the pulmonology patient had a CTA done which showed bilateral pleural effusion more on the right arm than on the left and she also has a marked atelectasis of both lungs he also has history of low hemoglobin and she is been transfused since patient had ischemic leg we put her on heparin today her of her leg feels much warmer than before there is a good capillary refill no Doppler signal noted CTA showed patient has a total occlusion of the femoral superficial femoral artery and popliteal artery reconstitutes discuss with radiology most likely is a chronic occlusion Patient is on nasal oxygen she has been using 3 pillows when she lays flat she desaturates discussed with the family she is high risk for major surgical intervention according to the patient she was on went for 2 months in the past and she does not want to be intubated and long-term ventilation we will discuss with travertine installer Dr. vargas in the meantime we will continue with heparin
--- NOTE | 2016-05-03 11:58 | ECHOF ---
Referral Reason:afib MEASUREMENTS -------- HEIGHT: 172.7 cm WEIGHT: 117.9 kg BP: RVIDd: 2.7 cm (< 3.3) IVSd: 1.1 cm (0.6 - 1.1) LVIDd: 5.2 cm (3.9 - 5.3) LVPWd: 1.6 cm (0.6 - 1.1) IVSs: 1.2 cm LVIDs: 4.3 cm LVPWs: 1.2 cm LA Diam: 5.0 cm (2.7 - 3.8) LAESV Index (A-L): 39.30 ml/m Ao Diam: 3.5 cm (2.0 - 3.7) AV Cusp: 1.4 cm (1.5 - 2.6) LA Diam: 5.5 cm (2.7 - 3.8) MV E Tin: 1.15 m/s MV DecT: 152 ms MV A Tin: 0.03 m/s MV E/A Ratio: 34.12 RAP: 5.00 mmHg RVSP: 35.32 mmHg FINDINGS -------- Atrial fibrillation. Morbid Obesity There is mild concentric left ventricular hypertrophy. Overall left ventricular systolic function is mild-moderately impaired with, an EF between 40 - 45 %. Septal Hypokinesis The right ventricle is normal in size. LA is moderately dilated 34-39 ml/m2 The right atrial size is normal. There is mild aortic valve sclerosis. There is no evidence of aortic regurgitation. Mild mitral annular calcification present. Mild mitral regurgitation is present. Mild tricuspid regurgitation present. There is no evidence of pulmonary hypertension. The right ventricular systolic pressure, as measured by Doppler, is 35.32mmHg. There is no pulmonic regurgitation present. The aortic root size is normal. Echo free space may represent effusion or a pericardial fat pad. CONCLUSIONS -------- 1. There is mild concentric left ventricular hypertrophy. 2. The right ventricular systolic pressure, as measured by Doppler, is 35.32mmHg. 3. Echo free space may represent effusion or a pericardial fat pad. 4. Overall left ventricular systolic function is mild-moderately impaired with, an EF between 40 - 45 %. 5. Septal Hypokinesis 6. LA is moderately dilated 34-39 ml/m2 7. There is mild aortic valve sclerosis. 8. Mild mitral annular calcification present. 9. Mild mitral regurgitation is present. 10. Mild tricuspid regurgitation present. 11. There is no evidence of pulmonary hypertension. GRINDER SET UP OPERATOR CENTERLESS: Connie Walter RDCS
[2016-05-03 12:16] LABS: Glucose,Whole Blood 322 mg/dL (75-99)
[2016-05-03] MEDS ORDERED: INSULIN REGULAR BOLUS (FROM DRIP BAG) IV ONE (13:26)
[2016-05-03 13:28] LABS: Glucose,Whole Blood 341 mg/dL (75-99)
[2016-05-03] MEDS: FUROSEMIDE 20 MG TAB PO SCH (13:35)
[2016-05-03] MEDS: INSULIN REGULAR 100 UNIT in SODIUM CHLORIDE 0.9% 100 ML IV SCH (14:01)
--- NOTE | 2016-05-03 14:04 | P.PN ---
Subjective Patient presented with generalized weakness and shortness of breath. She is being treated for pneumonia with sepsis. On IV antibiotics. She also was anemic with stool in the outpatient setting positive for Hemoccult blood. She was initially scheduled for colonoscopy today. However patient stools are still not clear. Also she has been tachycardic at times the heart rate all into the 150s. Medications have been adjusted. Albuterol was discontinued and patient was placed on Xopenex. Restarted her home dose of the metoprolol 200 mg twice a day. Pulmonary service gave patient a dose of IV Lasix. There was some evidence of fluid overload which may have contributed to her tachycardia as well. Chest x-ray shows bilateral infiltrate and pleural effusion. Correlate for CHF versus pneumonia. 04/30/2016 patient was scheduled for colonoscopy today. However due to her worsening respiratory status and poor bowel prep colonoscopy is again canceled. It is technically scheduled for tomorrow. Patient has had some shortness of breath and more congestion in the lungs sounds like fluid overload. a dose of IV Lasix has been ordered. Yesterday she is also been complaining of left leg pain Doppler was negative for DVT. Patient evaluated by cardiology. They have added digoxin to help with better rate control. Patient denies any chest pain. Not reporting any significant shortness of breath. However now she is requiring 4 L of oxygen satting at 96%. Denies any nausea or vomiting. Denies any difficulty urinating. 05/03/2016 patient is still not been able to have her colonoscopy. She's found have evidence of ischemia of the left leg with occlusion of the left femoral artery. She is currently on IV heparin and followed by vascular surgery. Patient is also been followed by GI service in regards to her anemia. Hemoglobin 9.3. Patient reports having shortness of breath still requiring about 5 L nasal cannula. She did receive another dose of IV Lasix yesterday for some fluid overload. Patient denies any chest pain. Denies any nausea or vomiting. Denies any difficulty with urinating. Objective - Vital Signs Vital signs: Vital Signs Temp 97.5 F L 05/03/16 07:00 Pulse 72 05/03/16 13:20 Resp 20 05/03/16 07:00 BP 140/84 05/03/16 07:00 Pulse Ox 94 L 05/03/16 07:00 Intake & Output 05/02/16 05/03/16 05/03/16 18:59 06:59 18:59 Intake Total 248.389 0231 444.663 Balance 416.004 4825 444.663 Weight 109 kg Intake: Intake, IV Titration 435.027 500 444.663 Amount Heparin Sodium,Porcine/ 435.027 500 444.663 D5w Pmx 25,000 unit In Dextrose/Water 1 500ml. bag @ 8.5 UNITS/KG/HR 20. 06 mls/hr IV .Q24H [facility] Rx #:[id number] Oral 240 675 Other: Voiding Method Bedpan # Voids 3 5 # Bowel Movements 1 1 - Exam Head normocephalic Neck supple Lungs few scattered wheezes bilaterally with some coarse breath sounds Heart regular rate and rhythm S1-S2, no rub or gallop Abdomen is soft nontender nondistended positive bowel sounds no hepatosplenomegaly Extremities no edema Neuro alert and orientated to 3 - Labs CBC & Chem 7: 05/03/16 08:47 05/03/16 08:47 Labs: Abnormal Lab Results - Last 24 Hours (Table) 05/02/16 05/02/16 05/03/16 Range/Units 17:34 20:16 07:31 WBC (3.8-10.6) k/uL Hgb (11.4-16.0) gm/dL Hct (34.0-46.0) % MCH (25.0-35.0) pg MCHC (31.0-37.0) g/dL RDW (11.5-15.5) % Neutrophils # (1.3-7.7) k/uL Lymphocytes # (1.0-4.8) k/uL APTT (22.0-30.0) sec BUN (7-17) mg/dL Glucose (74-99) mg/dL POC Glucose (mg/dL) 310 H 313 H 298 H (75-99) mg/dL Albumin (3.5-5.0) g/dL 05/03/16 05/03/16 05/03/16 Range/Units 08:47 08:47 08:47 WBC 20.2 H (3.8-10.6) k/uL Hgb 9.3 L (11.4-16.0) gm/dL Hct 33.6 L (34.0-46.0) % MCH 23.6 L (25.0-35.0) pg MCHC 27.5 L (31.0-37.0) g/dL RDW 16.8 H (11.5-15.5) % Neutrophils # 18.8 H (1.3-7.7) k/uL Lymphocytes # 0.7 L (1.0-4.8) k/uL APTT 74.9 H (22.0-30.0) sec BUN 27 H (7-17) mg/dL Glucose 289 H (74-99) mg/dL POC Glucose (mg/dL) (75-99) mg/dL Albumin 3.2 L (3.5-5.0) g/dL 05/03/16 05/03/16 Range/Units 12:15 13:27 WBC (3.8-10.6) k/uL Hgb (11.4-16.0) gm/dL Hct (34.0-46.0) % MCH (25.0-35.0) pg MCHC (31.0-37.0) g/dL RDW (11.5-15.5) % Neutrophils # (1.3-7.7) k/uL Lymphocytes # (1.0-4.8) k/uL APTT (22.0-30.0) sec BUN (7-17) mg/dL Glucose (74-99) mg/dL POC Glucose (mg/dL) 322 H 341 H (75-99) mg/dL Albumin (3.5-5.0) g/dL Microbiology - Last 24 Hours (Table) 04/27/16 11:36 Blood Culture - Preliminary Blood No Growth after 120 hours 04/27/16 11:43 Blood Culture - Preliminary Blood No Growth after 120 hours Assessment and Plan Plan: 1. Acute symptomatic anemia secondary to chronic blood loss and suspected lower GI bleed. Patient received 2 unit of PRBCs since admission. She had an EGD last month during her last hospitalization at [facility] that was unremarkable. She was seen and evaluated by gastroenterology. Colonoscopy has not been rescheduled at this point 2. Underlying pneumonia with sepsis on presentation: On IV ceftriaxone and azithromycin. Will finish a days course of antibiotic. May switch to oral Levaquin 500 mg daily when he clinically improving or prior to discharge to finish 8 days course total 3. Acute COPD exacerbation seen and evaluated by pulmonology. Continue bronchodilator and inhaled steroids. Continue IV Solu-Medrol 4. Paroxysmal atrial fibrillation on anticoagulation with Coumadin: Currently on hold awaiting further evaluation of underlying anemia. Patient has been having episodes of atrial fibrillation with rapid ventricular response. Evaluated by cardiology. They've added digoxin to her regimen of medications. Appreciate their input. Heart rate controlled 5. 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 Diabetes mellitus insulin-dependent. With hyperglycemia secondary to steroids. Blood sugars in the 300s. Start insulin drip. 8. Ischemic left leg: Currently on IV heparin. Followed by vascular service. CTA shows complete occlusion of the left femoral artery 9. Bilateral pleural effusions and basilar atelectasis: On CTA it appears worse than the CAT scan from 04/26/2016. Discussed case with pulmonary nurse practitioner. We'll order a chest x-ray and BNP level. Patient did receive 1 dose of IV Lasix yesterday. Patient is usually on Lasix 40 in the morning and 20 mg in the evening. Resume her Lasix 20 mg in the evening. she had not been receiving that dose.
[2016-05-03 14:51] LABS: Glucose,Whole Blood 332 mg/dL (75-99)
[2016-05-03 15:22] LABS: Glucose,Whole Blood 298 mg/dL (75-99)
--- NOTE | 2016-05-03 15:23 | CDI ---
In responding to this query, please exercise your independent professional judgment. The [facility] Coding Staff and Clinical Documentation Specialists appreciate your assistance in clarifying documentation, maintaining compliance with coding guidelines, accurately documenting patients condition and capturing severity of illness. The fact that a question is asked does not imply that any particular answer is desired or expected. Communication forms are a method of clarifying documentation and are not made part of the Legal Health Record. Thank you in advance for your clarification. Last Revision, April 2015 Sophie Soriano [address] [place] [address] Documentation Clarification Form Date: 05/03/2016 3:15:00 PM From: Kat Flores RN, CCDS Admit Date: 04/27/2016 4:56:00 AM Patient Name: Maria De Jesus Bui Visit Number: [id number] Dr. Elda Parrish Correlate for CHF vs. pneumonia is documented in multiple progress notes. History/Risk Factors: Asthma, DM, HTN, A-fib, Hyperlipidemia, smoker Clinical Indicators: VS/Pulse Ox: Temp 99.9, hr 90, RR 24, B/P 138/65, spo2 97% 3l NC BNP: not done 04/30/16 Echocardiogram Results: EF 40-45%, LA is moderately dilated CT Angio: cardiomegly, bilateral pleural effusions, bibasilar atelectasis Treatment: Lasix 40 mg PO QD, Lasix 20mg PO Noon QD, Lasix 40mg IVP x2, 20 mg IVP x1 Consults: Cardiology signed off In your professional opinion, can you please clarify the acuity and type of CHF if known? Acute Chronic Acute on Chronic AND Systolic Diastolic Systolic and Diastolic Cor Pulmonale (Right Sided HF w/ Pulmonary HTN) Unable to determine Other, please specify If known, please specify if Heart Failure is due to: Hypertension Rheumatic Fever Please document in your progress notes and discharge summary in order to capture severity of illness and risk of mortality. Include clinical findings that support your diagnosis. FYI: Press F11 to launch patient chart. Place X here if this finding has no clinical significance, is not applicable or if you are not able to provide any additional documentation. KEREN
[2016-05-03 15:50] LABS: Glucose,Whole Blood 264 mg/dL (75-99)
[2016-05-03 16:24] LABS: Glucose,Whole Blood 258 mg/dL (75-99)
[2016-05-03 16:46] LABS: Glucose,Whole Blood 232 mg/dL (75-99)
--- NOTE | 2016-05-03 18:22 | XR ---
EXAMINATION TYPE: XR chest 2V DATE OF EXAM: 05/03/2016 5:49 PM COMPARISON: Prior chest x-ray from 4 days earlier HISTORY: Bilateral pleural effusions progress study. TECHNIQUE: Frontal and lateral views of the chest are obtained. FINDINGS: There is cardiomegaly with small bilateral pleural effusions still present. Associated bib asilar atelectasis and/or infiltrate is noted. Degree of central vascular congestion is slightly impr lynda. No pneumothorax is seen bilaterally. Atherosclerotic thoracic aorta is redemonstrated. Spinal stimulator lower thoracic spine is redemonstrated IMPRESSION: Persistent cardiomegaly and small bilateral pleural effusions. Suspect CHF exacerbation. Some interval improvement in central vascular congestion is felt present.
[2016-05-03 19:05] LABS: Glucose,Whole Blood 225 mg/dL (75-99)
[2016-05-03 21:07] LABS: Glucose,Whole Blood 198 mg/dL (75-99)
[2016-05-03] MEDS: LOSARTAN 50 MG TAB PO SCH (21:32)
[2016-05-03] MEDS: PRAVASTATIN SODIUM 20 MG TAB PO SCH (21:33)
[2016-05-03] MEDS: MONTELUKAST 10 MG TAB PO SCH (21:33)
--- NOTE | 2016-05-03 22:04 | PN ---
DATE OF SERVICE: 05/03/2016 The patient was seen, evaluated and examined. She has been having issues of severe congestion and shortness of breath. She has been treated with IV heparin for deep venous thrombosis. Vascular Surgery is following for peripheral arterial disease as well. Patient has been on Xopenex breathing treatments The patient did respond to some diuretics in the past. Patient has significant femoral artery occlusion. She appears to be not a candidate for surgical intervention. She remains on 5 L normal saline. Has received Lasix as well. She is putting out urine. Her last set of vitals include blood pressure 140/84, respiratory rate is 20, pulse 72, temperature 98, sating 94%. HEENT: Unremarkable. NECK: Supple. LUNGS: Good air entry with inspiratory and expiratory crackles present. HEART: Regular rate and rhythm. ABDOMEN: Soft. NEUROLOGICAL EXAMINATION: Otherwise, awake and alert. CT angiogram performed 05/01/2016 revealed diffuse atherosclerotic vascular changes with evidence of complete occlusion of the left femoral artery, bilateral pleural effusion is seen with atelectasis, more so on the right side compared to the left side, some worsening compared to prior radiographic examination is seen. IMPRESSION: 1. Increased shortness of breath with component of fluid overload. Agree with diuresis. 2. Pneumonia. 3. Severe anemia related to GI bleed. 4. Chronic atrial fibrillation. 5. Severe chronic obstructive pulmonary disease, emphysema. Continue breathing treatments. 6. Peripheral arterial disease involving the left femoral artery with complete occlusion. PLAN: As above. Agree with diuresis. Continue breathing treatments. Repeat chest x-ray is pending, we will review it. Further recommendations pending. Continue broad-spectrum antibiotics.
[2016-05-03 22:58] LABS: Hemoglobin A1C 9.7 % (4.2-6.1)
[2016-05-03 23:21] LABS: Glucose,Whole Blood 181 mg/dL (75-99)
[2016-05-04 01:08] LABS: Glucose,Whole Blood 174 mg/dL (75-99)
[2016-05-04 02:58] LABS: Glucose,Whole Blood 135 mg/dL (75-99)
[2016-05-04 05:20] LABS: Glucose,Whole Blood 168 mg/dL (75-99)
[2016-05-04 06:43] LABS: Glucose,Whole Blood 137 mg/dL (75-99)
[2016-05-04] MEDS: IPRATROPIUM-ALBUTEROL 3 ML NEB INHALATION SCH ×5 (08:20→19:38)
[2016-05-04] MEDS: BUDESONIDE 1 MG/2 ML NEBU INHALATION SCH ×2 (08:20→19:38)
[2016-05-04 08:47] LABS: Anisocytosis Slight; Basophils % (A) 0 %; CH 23.9; CHCM 27.8; Eosinophils % (A) 0 %; HCT 33.2 % (34.0-46.0); HDW 3.97; Hypochromasia Marked; Luc % (Auto) 1; Lymphocytes # (A) 0.7 k/uL (1.0-4.8); Lymphocytes % (A) 4 %; MCH 23.3 pg (25.0-35.0); MCV 85.9 fL (80.0-100.0); Mean Platelet Volume 7.8; Monocytes # (A) 0.6 k/uL (0-1.0); Monocytes % (A) 3 %; Neutrophils # (A) 15.3 k/uL (1.3-7.7); Neutrophils % (A) 91 %; Poikilocytosis Slight; RBC 3.86 m/uL (3.80-5.40); RDW 16.9 % (11.5-15.5); WBC 16.9 k/uL (3.8-10.6); WBC (Perox) 18.27
[2016-05-04 08:58] LABS: MCHC 27.1 g/dL (31.0-37.0)
[2016-05-04] MEDS: INSULIN LISPRO (humaLOG) 300 UNIT/3 ML VIAL SQ SCH ×3 (08:58→18:21)
[2016-05-04 08:59] LABS: ALT 47 U/L (9-52); AST 35 U/L (14-36); Alkaline Phosphatase 63 U/L (38-126); Anion Gap 8 mmol/L; Blood Urea Nitrogen 29 mg/dL (7-17); Calcium 8.7 mg/dL (8.4-10.2); Carbon Dioxide 32 mmol/L (22-30); Chloride 103 mmol/L (98-107); Glucose 124 mg/dL (74-99); Non-African American GFR(MDRD) >60 (>60 ml/min/1.73 sqM); Potassium 4.4 mmol/L (3.5-5.1); Sodium 143 mmol/L (137-145); Total Bilirubin 0.4 mg/dL (0.2-1.3); Total Protein 6.1 g/dL (6.3-8.2)
[2016-05-04 10:12] LABS: Glucose,Whole Blood 212 mg/dL (75-99)
--- NOTE | 2016-05-04 10:17 | P.PN ---
Subjective Principal diagnosis: GI bleed anemia 76-year-old female admitted with symptomatic anemia. No episodes of GI bleeding since admission. Incomplete bowel prep last week for colonoscopy. Patient developed ischemic vascular changes to her left lower extremity last [place] evening secondary peripheral arterial disease left femoral artery occlusion. Colonoscopy has been postponed. Receiving intravenous heparin. Hemoglobin 9.0. PTT 74.9. Objective - Vital Signs Vital signs: Vital Signs Temp 97.1 F L 05/04/16 07:00 Pulse 76 05/04/16 08:35 Resp 24 05/04/16 07:00 BP 142/69 05/04/16 07:00 Pulse Ox 95 05/04/16 07:00 Intake & Output 05/03/16 05/04/16 05/04/16 18:59 06:59 18:59 Intake Total 550.468 6722.025 38.145 Balance 533.359 3875.025 38.145 Weight 105.5 kg Intake: Intake, IV Titration 546.830 16.025 38.145 Amount Heparin Sodium,Porcine/ 500.000 D5w Pmx 25,000 unit In Dextrose/Water 1 500ml. bag @ 8.5 UNITS/KG/HR 20. 06 mls/hr IV .Q24H [facility] Rx #:[id number] Insulin Regular 100 unit 46.830 16.025 38.145 In Sodium Chloride 0.9% 100 ml @ Titrate IV .Q0M [facility] Rx#:[id number] Oral 1095 Other: # Voids 1 1 1 - Exam General appearance: The patient is alert, oriented, in no acute distress. HET: Head is normocephalic and atraumatic. Pupils are equal and reactive. Oropharynx is clear without lesions. Neck: Supple without lymphadenopathy. Trachea midline. Heart: S1 S2. Lungs: Diminished bilaterally in bases. Abdomen: Soft, nontender, nondistended with bowel sounds. No peritoneal signs. No palpable organomegaly or masses. Extremities: No edema. Skin pink warm. Neurological: No focal deficits. Strength and sensation are grossly intact. - Labs CBC & Chem 7: 05/04/16 08:04 05/04/16 08:04 Labs: Abnormal Lab Results - Last 24 Hours (Table) 05/03/16 05/03/16 05/03/16 Range/Units 08:47 12:15 13:27 WBC (3.8-10.6) k/uL Hgb (11.4-16.0) gm/dL Hct (34.0-46.0) % MCH (25.0-35.0) pg MCHC (31.0-37.0) g/dL RDW (11.5-15.5) % Neutrophils # (1.3-7.7) k/uL Lymphocytes # (1.0-4.8) k/uL Carbon Dioxide (22-30) mmol/L BUN (7-17) mg/dL Glucose (74-99) mg/dL POC Glucose (mg/dL) 322 H 341 H (75-99) mg/dL Hemoglobin A1c 9.7 H (4.2-6.1) % Total Protein (6.3-8.2) g/dL Albumin (3.5-5.0) g/dL 05/03/16 05/03/16 05/03/16 Range/Units 14:49 15:16 15:48 WBC (3.8-10.6) k/uL Hgb (11.4-16.0) gm/dL Hct (34.0-46.0) % MCH (25.0-35.0) pg MCHC (31.0-37.0) g/dL RDW (11.5-15.5) % Neutrophils # (1.3-7.7) k/uL Lymphocytes # (1.0-4.8) k/uL Carbon Dioxide (22-30) mmol/L BUN (7-17) mg/dL Glucose (74-99) mg/dL POC Glucose (mg/dL) 332 H 298 H 264 H (75-99) mg/dL Hemoglobin A1c (4.2-6.1) % Total Protein (6.3-8.2) g/dL Albumin (3.5-5.0) g/dL 05/03/16 05/03/16 05/03/16 Range/Units 16:17 16:44 19:02 WBC (3.8-10.6) k/uL Hgb (11.4-16.0) gm/dL Hct (34.0-46.0) % MCH (25.0-35.0) pg MCHC (31.0-37.0) g/dL RDW (11.5-15.5) % Neutrophils # (1.3-7.7) k/uL Lymphocytes # (1.0-4.8) k/uL Carbon Dioxide (22-30) mmol/L BUN (7-17) mg/dL Glucose (74-99) mg/dL POC Glucose (mg/dL) 258 H 232 H 225 H (75-99) mg/dL Hemoglobin A1c (4.2-6.1) % Total Protein (6.3-8.2) g/dL Albumin (3.5-5.0) g/dL 05/03/16 05/03/16 05/04/16 Range/Units 20:58 23:11 01:04 WBC (3.8-10.6) k/uL Hgb (11.4-16.0) gm/dL Hct (34.0-46.0) % MCH (25.0-35.0) pg MCHC (31.0-37.0) g/dL RDW (11.5-15.5) % Neutrophils # (1.3-7.7) k/uL Lymphocytes # (1.0-4.8) k/uL Carbon Dioxide (22-30) mmol/L BUN (7-17) mg/dL Glucose (74-99) mg/dL POC Glucose (mg/dL) 198 H 181 H 174 H (75-99) mg/dL Hemoglobin A1c (4.2-6.1) % Total Protein (6.3-8.2) g/dL Albumin (3.5-5.0) g/dL 05/04/16 05/04/16 05/04/16 Range/Units 02:49 05:18 06:41 WBC (3.8-10.6) k/uL Hgb (11.4-16.0) gm/dL Hct (34.0-46.0) % MCH (25.0-35.0) pg MCHC (31.0-37.0) g/dL RDW (11.5-15.5) % Neutrophils # (1.3-7.7) k/uL Lymphocytes # (1.0-4.8) k/uL Carbon Dioxide (22-30) mmol/L BUN (7-17) mg/dL Glucose (74-99) mg/dL POC Glucose (mg/dL) 135 H 168 H 137 H (75-99) mg/dL Hemoglobin A1c (4.2-6.1) % Total Protein (6.3-8.2) g/dL Albumin (3.5-5.0) g/dL 05/04/16 05/04/16 Range/Units 08:04 08:04 WBC 16.9 H (3.8-10.6) k/uL Hgb 9.0 L (11.4-16.0) gm/dL Hct 33.2 L (34.0-46.0) % MCH 23.3 L (25.0-35.0) pg MCHC 27.1 L (31.0-37.0) g/dL RDW 16.9 H (11.5-15.5) % Neutrophils # 15.3 H (1.3-7.7) k/uL Lymphocytes # 0.7 L (1.0-4.8) k/uL Carbon Dioxide 32 H (22-30) mmol/L BUN 29 H (7-17) mg/dL Glucose 124 H (74-99) mg/dL POC Glucose (mg/dL) (75-99) mg/dL Hemoglobin A1c (4.2-6.1) % Total Protein 6.1 L (6.3-8.2) g/dL Albumin 2.9 L (3.5-5.0) g/dL Microbiology - Last 24 Hours (Table) 04/27/16 11:36 Blood Culture - Final Blood No Growth after 144 hours 04/27/16 11:43 Blood Culture - Final Blood No Growth after 144 hours Assessment and Plan (1) GI bleed Status: Acute (2) Symptomatic anemia Status: Acute (3) Acute blood loss anemia Narrative/Plan: Reported positive Hemoccult testing in the outpatient setting status post EGD evaluation 2 months ago at outside facility reported as normal. Status: Acute (4) COPD (chronic obstructive pulmonary disease) Status: Acute (5) Peripheral arterial occlusive disease Status: Chronic (6) Ischemia of left lower extremity Status: Acute Plan: 1. Colonoscopy has been postponed. Consideration for outpatient barium enema to rule out colonic neoplasm. Return to GI office in 1-[address] Mccarthy after discharge for reevaluation. Continue with intravenous heparin, restart anticoagulation as advised by vascular surgery. We'll follow as needed. Assessment and plan of care discussed with Dr. Cardona.
[2016-05-04] MEDS: INSULIN REGULAR 100 UNIT in SODIUM CHLORIDE 0.9% 100 ML IV SCH ×2 (10:39→20:30)
[2016-05-04] MEDS: FUROSEMIDE 40 MG TAB PO SCH (11:29)
[2016-05-04] MEDS: AZITHROMYCIN 500 MG TAB PO SCH (11:29)
[2016-05-04] MEDS: DILTIAZEM CD 240 MG CAP.ER.24H PO SCH (11:30)
[2016-05-04] MEDS: ALPRAZolam 0.25 MG TAB PO SCH (11:30)
[2016-05-04] MEDS: methylPREDNISolone SOD SUCCI 40 MG/ML 1 ML VIAL IV SCH ×2 (11:30→20:29)
[2016-05-04] MEDS: DIGOXIN 250 MCG TAB PO SCH (11:30)
[2016-05-04] MEDS: METOPROLOL SUCCINATE (ER) 100 MG TAB.ER.24H PO SCH ×2 (11:30→20:29)
[2016-05-04] MEDS: HYDROcodone/APAP 10-325MG 1 EACH TAB PO PRN ×2 (11:31→17:07)
[2016-05-04] MEDS: SODIUM CHLORIDE 0.9% 1,000 ML IV SCH (11:31)
[2016-05-04] MEDS: PANTOPRAZOLE 40 MG/10 ML VIAL IV SCH (11:31)
--- NOTE | 2016-05-04 11:56 | P.PN ---
Subjective This is a 76-year-old female patient evaluated and examined today on the fourth floor Patient initially had a hemoglobin of 6.1 and an INR of 2.0 lactic acid of 3.3 at [facility], the patient was then transferred to [facility]. Initial labs upon arrival were hemoglobin of 6.6, INR of 1.9 , and a lactic acid of 2.2. The patient stated she had been having some subjective fevers at home with chills and intermittent nonproductive cough with shortness of breath. Since being here [facility] the patient has received 2 units of packed red blood cells. The patient has never showed any evidence of an active bleed. Patient's colonoscopy has been postponed related to an incomplete bowel prep last week. The patient since then also developed ischemic vascular changes to her left lower extremity last Tuesday secondary to her peripheral ALLERGY re-disease and she has a left femoral artery occlusion. The patient is receiving IV heparin at this time. Upon evaluation today the patient is resting up in bed in no distress. The patient is currently using 5 L of oxygen, she states she does have a productive cough with clear to white sputum. Patient states that the updrafts seem to be helping her significantly. The patient does have a diagnosis of obstructive sleep apnea and family has brought in her home BiPAP machine. Objective - Vital Signs Vital signs: Vital Signs Temp 97.1 F L 05/04/16 07:00 Pulse 76 05/04/16 08:35 Resp 24 05/04/16 07:00 BP 142/69 05/04/16 07:00 Pulse Ox 95 05/04/16 07:00 Intake & Output 05/03/16 05/04/16 05/04/16 18:59 06:59 18:59 Intake Total 291.209 7130.025 493.822 Balance 515.821 8505.025 493.822 Weight 105.5 kg Intake: Intake, IV Titration 546.830 16.025 493.822 Amount Heparin Sodium,Porcine/ 500.000 455.677 D5w Pmx 25,000 unit In Dextrose/Water 1 500ml. bag @ 8.5 UNITS/KG/HR 20. 06 mls/hr IV .Q24H [facility] Rx #:[id number] Insulin Regular 100 unit 46.830 16.025 38.145 In Sodium Chloride 0.9% 100 ml @ Titrate IV .Q0M [facility] Rx#:[id number] Oral 1095 Other: # Voids 1 1 1 - Exam GENERAL EXAM: Alert, active, comfortable in no apparent distress. HEAD: Normocephalic. EYES: Normal reaction of pupils, equal size. NOSE: Clear with pink turbinates. THROAT: No erythema or exudates. NECK: No masses, no JVD. CHEST: No chest wall deformity. LUNGS: Lungs noted to the course. Wheezes noted bilaterally on inspiration and expiration. CVS: S1 and S2 normal with no audible mumurs, regular rhythm. ABDOMEN: No hepatosplenomegaly, normal bowel sounds, no guarding or rigidity. EXTREMITIES: No edema noted, pedal pulses palpable. SKIN: No rashes CENTRAL NERVOUS SYSTEM: No focal deficits, tone is normal in all 4 extremities. - Labs CBC & Chem 7: 05/04/16 08:04 05/04/16 08:04 Labs: Abnormal Lab Results - Last 24 Hours (Table) 05/03/16 05/03/16 05/03/16 Range/Units 08:47 12:15 13:27 WBC (3.8-10.6) k/uL Hgb (11.4-16.0) gm/dL Hct (34.0-46.0) % MCH (25.0-35.0) pg MCHC (31.0-37.0) g/dL RDW (11.5-15.5) % Neutrophils # (1.3-7.7) k/uL Lymphocytes # (1.0-4.8) k/uL APTT (22.0-30.0) sec Carbon Dioxide (22-30) mmol/L BUN (7-17) mg/dL Glucose (74-99) mg/dL POC Glucose (mg/dL) 322 H 341 H (75-99) mg/dL Hemoglobin A1c 9.7 H (4.2-6.1) % Total Protein (6.3-8.2) g/dL Albumin (3.5-5.0) g/dL 05/03/16 05/03/16 05/03/16 Range/Units 14:49 15:16 15:48 WBC (3.8-10.6) k/uL Hgb (11.4-16.0) gm/dL Hct (34.0-46.0) % MCH (25.0-35.0) pg MCHC (31.0-37.0) g/dL RDW (11.5-15.5) % Neutrophils # (1.3-7.7) k/uL Lymphocytes # (1.0-4.8) k/uL APTT (22.0-30.0) sec Carbon Dioxide (22-30) mmol/L BUN (7-17) mg/dL Glucose (74-99) mg/dL POC Glucose (mg/dL) 332 H 298 H 264 H (75-99) mg/dL Hemoglobin A1c (4.2-6.1) % Total Protein (6.3-8.2) g/dL Albumin (3.5-5.0) g/dL 05/03/16 05/03/16 05/03/16 Range/Units 16:17 16:44 19:02 WBC (3.8-10.6) k/uL Hgb (11.4-16.0) gm/dL Hct (34.0-46.0) % MCH (25.0-35.0) pg MCHC (31.0-37.0) g/dL RDW (11.5-15.5) % Neutrophils # (1.3-7.7) k/uL Lymphocytes # (1.0-4.8) k/uL APTT (22.0-30.0) sec Carbon Dioxide (22-30) mmol/L BUN (7-17) mg/dL Glucose (74-99) mg/dL POC Glucose (mg/dL) 258 H 232 H 225 H (75-99) mg/dL Hemoglobin A1c (4.2-6.1) % Total Protein (6.3-8.2) g/dL Albumin (3.5-5.0) g/dL 05/03/16 05/03/16 05/04/16 Range/Units 20:58 23:11 01:04 WBC (3.8-10.6) k/uL Hgb (11.4-16.0) gm/dL Hct (34.0-46.0) % MCH (25.0-35.0) pg MCHC (31.0-37.0) g/dL RDW (11.5-15.5) % Neutrophils # (1.3-7.7) k/uL Lymphocytes # (1.0-4.8) k/uL APTT (22.0-30.0) sec Carbon Dioxide (22-30) mmol/L BUN (7-17) mg/dL Glucose (74-99) mg/dL POC Glucose (mg/dL) 198 H 181 H 174 H (75-99) mg/dL Hemoglobin A1c (4.2-6.1) % Total Protein (6.3-8.2) g/dL Albumin (3.5-5.0) g/dL 05/04/16 05/04/16 05/04/16 Range/Units 02:49 05:18 06:41 WBC (3.8-10.6) k/uL Hgb (11.4-16.0) gm/dL Hct (34.0-46.0) % MCH (25.0-35.0) pg MCHC (31.0-37.0) g/dL RDW (11.5-15.5) % Neutrophils # (1.3-7.7) k/uL Lymphocytes # (1.0-4.8) k/uL APTT (22.0-30.0) sec Carbon Dioxide (22-30) mmol/L BUN (7-17) mg/dL Glucose (74-99) mg/dL POC Glucose (mg/dL) 135 H 168 H 137 H (75-99) mg/dL Hemoglobin A1c (4.2-6.1) % Total Protein (6.3-8.2) g/dL Albumin (3.5-5.0) g/dL 05/04/16 05/04/16 05/04/16 Range/Units 08:04 08:04 08:04 WBC 16.9 H (3.8-10.6) k/uL Hgb 9.0 L (11.4-16.0) gm/dL Hct 33.2 L (34.0-46.0) % MCH 23.3 L (25.0-35.0) pg MCHC 27.1 L (31.0-37.0) g/dL RDW 16.9 H (11.5-15.5) % Neutrophils # 15.3 H (1.3-7.7) k/uL Lymphocytes # 0.7 L (1.0-4.8) k/uL APTT 96.0 H* (22.0-30.0) sec Carbon Dioxide 32 H (22-30) mmol/L BUN 29 H (7-17) mg/dL Glucose 124 H (74-99) mg/dL POC Glucose (mg/dL) (75-99) mg/dL Hemoglobin A1c (4.2-6.1) % Total Protein 6.1 L (6.3-8.2) g/dL Albumin 2.9 L (3.5-5.0) g/dL 05/04/16 Range/Units 10:10 WBC (3.8-10.6) k/uL Hgb (11.4-16.0) gm/dL Hct (34.0-46.0) % MCH (25.0-35.0) pg MCHC (31.0-37.0) g/dL RDW (11.5-15.5) % Neutrophils # (1.3-7.7) k/uL Lymphocytes # (1.0-4.8) k/uL APTT (22.0-30.0) sec Carbon Dioxide (22-30) mmol/L BUN (7-17) mg/dL Glucose (74-99) mg/dL POC Glucose (mg/dL) 212 H (75-99) mg/dL Hemoglobin A1c (4.2-6.1) % Total Protein (6.3-8.2) g/dL Albumin (3.5-5.0) g/dL Microbiology - Last 24 Hours (Table) 04/27/16 11:36 Blood Culture - Final Blood No Growth after 144 hours 04/27/16 11:43 Blood Culture - Final Blood No Growth after 144 hours Assessment and Plan Plan: Assessment GI bleed Symptomatic Anemia Acute blood loss anemia Lactic acidosis sepsis Elevated INR Acute exacerbation of COPD Obesity History of chronic moderate persistent asthma Diabetes mellitus Obstructive sleep apnea Ischemic left leg Plan Medications have been reviewed and we will continue with current treatment. Patient to use home BiPAP at night. Continue with IV heparin. Continue with current nebulizer treatments. Continue to monitor for any active bleeding. Patient will undergo a colonoscopy possibly once heparin has been discontinued. Urine output is good. We will continue to monitor labs and adjust treatment as necessary. I performed an examination of the patient and discussed their management with the nurse practitioner. I have reviewed the nurse practitioner's note and agree with the documented findings and plan of care.
[2016-05-04 12:14] LABS: Glucose,Whole Blood 201 mg/dL (75-99)
[2016-05-04 14:06] LABS: Glucose,Whole Blood 172 mg/dL (75-99)
[2016-05-04] MEDS: FUROSEMIDE 20 MG TAB PO SCH (15:26)
[2016-05-04] MEDS: ALPRAZolam 0.25 MG TAB PO PRN ×2 (16:28→20:29)
--- NOTE | 2016-05-04 16:46 | P.PN ---
Progress Note - Text 76-year-old white female, history of GI bleed, history of heart failure, patient also has very shortness of breath patient is on oxygen 3 L x-ray showed a bilateral pleural effusions better than previous and some atelectasis was seen for left femoral artery occlusive disease we put her on heparin we have discussed about the major surgical intervention a cause of her respiratory issues we are waiting if she gets some improvement she may need to have a fem- pop have discussed with the family because of her lung status she may not able to tolerate this procedure and they understand patient was ventilator for 2 month about 2 years ago we will discuss with Shanell tomorrow and also with the family continue with heparin her leg is improving
[2016-05-04 17:01] LABS: Glucose,Whole Blood 228 mg/dL (75-99)
--- NOTE | 2016-05-04 17:31 | P.PN ---
Subjective Principal diagnosis: Anemia Patient is a 76-year-old female with multiple medical problems currently admitted to medical floor. Patient has severe shortness of breath, she has evidence of pneumonia and acute exacerbation of chronic obstructive pulmonary disease and evidence of fluid overload she is followed by pulmonary she is maintained on IV antibiotic IV Lasix and IV steroids and inhaled bronchodilators he has been improving gradually. Patient has chronic anemia which has required red blood cell transfusion during this admission, she had an EGD which was unremarkable 2 month ago, we have been and able to proceed was colonoscopy due to her multiple comorbidities. Yesterday she developed a bluish discoloration with coldness of her left lower extremity, lower extremity Doppler was negative for DVT she was seen by Dr. García vascular surgeon she was started on IV heparin and her leg improved significantly. Objective - Vital Signs Vital signs: Vital Signs Temp 97.2 F L 05/04/16 15:00 Pulse 97 05/04/16 15:00 Resp 20 05/04/16 15:00 BP 141/59 05/04/16 15:00 Pulse Ox 92 L 05/04/16 15:50 Intake & Output 05/03/16 05/04/16 05/04/16 18:59 06:59 18:59 Intake Total 210.791 3297.025 522.709 Balance 777.969 5066.025 522.709 Weight 105.5 kg 105.5 kg Intake: Intake, IV Titration 546.830 16.025 522.709 Amount Heparin Sodium,Porcine/ 500.000 455.677 D5w Pmx 25,000 unit In Dextrose/Water 1 500ml. bag @ 8.5 UNITS/KG/HR 20. 06 mls/hr IV .Q24H [facility] Rx #:[id number] Insulin Regular 100 unit 46.830 16.025 67.032 In Sodium Chloride 0.9% 100 ml @ Titrate IV .Q0M [facility] Rx#:[id number] Oral 1095 Other: # Voids 1 1 5 - Exam HEENT head normocephalic and atraumatic Neck is supple no JVD no goiter no lymphadenopathy Chest exam was a scattered crackles bilaterally no wheezing Cardiac exam reveals regular heart sounds no gallops no murmurs Abdomen is soft nontender no organomegaly Extremity exam reveals no edema no cyanosis or clubbing - Labs CBC & Chem 7: 05/04/16 08:04 03/14/17 08:04 Labs: Abnormal Lab Results - Last 24 Hours (Table) 05/03/16 05/03/16 05/03/16 Range/Units 08:47 19:02 20:58 WBC (3.8-10.6) k/uL Hgb (11.4-16.0) gm/dL Hct (34.0-46.0) % MCH (25.0-35.0) pg MCHC (31.0-37.0) g/dL RDW (11.5-15.5) % Neutrophils # (1.3-7.7) k/uL Lymphocytes # (1.0-4.8) k/uL APTT (22.0-30.0) sec Carbon Dioxide (22-30) mmol/L BUN (7-17) mg/dL Glucose (74-99) mg/dL POC Glucose (mg/dL) 225 H 198 H (75-99) mg/dL Hemoglobin A1c 9.7 H (4.2-6.1) % Total Protein (6.3-8.2) g/dL Albumin (3.5-5.0) g/dL 05/03/16 05/04/16 05/04/16 Range/Units 23:11 01:04 02:49 WBC (3.8-10.6) k/uL Hgb (11.4-16.0) gm/dL Hct (34.0-46.0) % MCH (25.0-35.0) pg MCHC (31.0-37.0) g/dL RDW (11.5-15.5) % Neutrophils # (1.3-7.7) k/uL Lymphocytes # (1.0-4.8) k/uL APTT (22.0-30.0) sec Carbon Dioxide (22-30) mmol/L BUN (7-17) mg/dL Glucose (74-99) mg/dL POC Glucose (mg/dL) 181 H 174 H 135 H (75-99) mg/dL Hemoglobin A1c (4.2-6.1) % Total Protein (6.3-8.2) g/dL Albumin (3.5-5.0) g/dL 05/04/16 05/04/16 05/04/16 Range/Units 05:18 06:41 08:04 WBC 16.9 H (3.8-10.6) k/uL Hgb 9.0 L (11.4-16.0) gm/dL Hct 33.2 L (34.0-46.0) % MCH 23.3 L (25.0-35.0) pg MCHC 27.1 L (31.0-37.0) g/dL RDW 16.9 H (11.5-15.5) % Neutrophils # 15.3 H (1.3-7.7) k/uL Lymphocytes # 0.7 L (1.0-4.8) k/uL APTT (22.0-30.0) sec Carbon Dioxide (22-30) mmol/L BUN (7-17) mg/dL Glucose (74-99) mg/dL POC Glucose (mg/dL) 168 H 137 H (75-99) mg/dL Hemoglobin A1c (4.2-6.1) % Total Protein (6.3-8.2) g/dL Albumin (3.5-5.0) g/dL 05/04/16 05/04/16 05/04/16 Range/Units 08:04 08:04 10:10 WBC (3.8-10.6) k/uL Hgb (11.4-16.0) gm/dL Hct (34.0-46.0) % MCH (25.0-35.0) pg MCHC (31.0-37.0) g/dL RDW (11.5-15.5) % Neutrophils # (1.3-7.7) k/uL Lymphocytes # (1.0-4.8) k/uL APTT 96.0 H* (22.0-30.0) sec Carbon Dioxide 32 H (22-30) mmol/L BUN 29 H (7-17) mg/dL Glucose 124 H (74-99) mg/dL POC Glucose (mg/dL) 212 H (75-99) mg/dL Hemoglobin A1c (4.2-6.1) % Total Protein 6.1 L (6.3-8.2) g/dL Albumin 2.9 L (3.5-5.0) g/dL 05/04/16 05/04/1617 Range/Units 12:12 14:04 17:00 WBC (3.8-10.6) k/uL Hgb (11.4-16.0) gm/dL Hct (34.0-46.0) % MCH (25.0-35.0) pg MCHC (31.0-37.0) g/dL RDW (11.5-15.5) % Neutrophils # (1.3-7.7) k/uL Lymphocytes # (1.0-4.8) k/uL APTT (22.0-30.0) sec Carbon Dioxide (22-30) mmol/L BUN (7-17) mg/dL Glucose (74-99) mg/dL POC Glucose (mg/dL) 201 H 172 H 228 H (75-99) mg/dL Hemoglobin A1c (4.2-6.1) % Total Protein (6.3-8.2) g/dL Albumin (3.5-5.0) g/dL Microbiology - Last 24 Hours (Table) 04/27/16 11:36 Blood Culture - Final Blood No Growth after 144 hours 04/27/16 11:43 Blood Culture - Final Blood No Growth after 144 hours Assessment and Plan Plan: 1. Acute symptomatic anemia secondary to chronic blood loss and suspected lower GI bleed. Patient received 2 unit of PRBCs since admission. She had an EGD last month during her last hospitalization at [facility] that was unremarkable. She was seen and evaluated by gastroenterology. Patient's colonoscopy he is scheduled again for tomorrow. Canceled today due to fluid overload and poor bowel prep. Patient will be rescheduled for colonoscopy tomorrow 2. Underlying pneumonia with sepsis on presentation, continue IV antibiotics 3. Acute COPD exacerbation seen and evaluated by pulmonology. Continue bronchodilator and inhaled steroids. Patient had been having wheezing this morning as well. Could be related to some fluid overload as well as her COPD exacerbation pulmonate service has started patient on IV Solu-Medrol 4. Paroxysmal atrial fibrillation on anticoagulation with Coumadin: Currently on hold awaiting further evaluation of underlying anemia. Patient has been having episodes of atrial fibrillation with rapid ventricular response. Evaluated by cardiology. They've added digoxin to her regimen of medications. Appreciate their input 5. 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 Diabetes mellitus insulin-dependent. Continue home insulin. We'll change sliding scale to the steroid scale 8. Fluid overload will give patient another dose of IV Lasix. 9. Anemia, will give 1 unit of RBCs monitor labs closely 10. 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 Family does not want any extensive surgical intervention, at this time his plan is to proceed with angiogram. Input from Dr. García reviewed no surgical intervention planned at this time patient can be restarted on Coumadin. At this time we are awaiting improvement in her respiratory status to proceed with colonoscopy After that patient may be restarted on Coumadin while on heparin and she can be discharged home when her Coumadin is therapeutic
[2016-05-04 18:20] LABS: Glucose,Whole Blood 235 mg/dL (75-99)
[2016-05-04] MEDS: HEPARIN SODIUM,PORCINE/D5W PMX 25,000 UNIT in DEXTROSE/WATER 1 500ML.BAG IV SCH (19:31)
[2016-05-04 20:20] LABS: Glucose,Whole Blood 225 mg/dL (75-99)
[2016-05-04] MEDS: MONTELUKAST 10 MG TAB PO SCH (20:29)
[2016-05-04] MEDS: LOSARTAN 50 MG TAB PO SCH (20:29)
[2016-05-04] MEDS: PRAVASTATIN SODIUM 20 MG TAB PO SCH (20:29)
[2016-05-04 22:16] LABS: Glucose,Whole Blood 178 mg/dL (75-99)
[2016-05-05 00:07] LABS: Glucose,Whole Blood 177 mg/dL (75-99)
[2016-05-05 02:05] LABS: Glucose,Whole Blood 210 mg/dL (75-99)
[2016-05-05] MEDS: HEPARIN SODIUM,PORCINE/D5W PMX 25,000 UNIT in DEXTROSE/WATER 1 500ML.BAG IV SCH ×2 (02:57→22:31)
[2016-05-05 04:25] LABS: Glucose,Whole Blood 185 mg/dL (75-99)
[2016-05-05 06:13] LABS: Glucose,Whole Blood 187 mg/dL (75-99)
[2016-05-05 07:52] LABS: Glucose,Whole Blood 195 mg/dL (75-99)
[2016-05-05] MEDS: BUDESONIDE 1 MG/2 ML NEBU INHALATION SCH ×2 (08:09→21:16)
[2016-05-05] MEDS: IPRATROPIUM-ALBUTEROL 3 ML NEB INHALATION SCH ×4 (08:09→21:16)
[2016-05-05] MEDS: INSULIN LISPRO (humaLOG) 300 UNIT/3 ML VIAL SQ SCH ×3 (08:16→17:54)
[2016-05-05] MEDS: SODIUM CHLORIDE 0.9% 1,000 ML IV SCH (08:19)
[2016-05-05 09:22] LABS: Anisocytosis Slight; Basophils % (A) 0 %; CH 23.6; CHCM 27.2; Eosinophils % (A) 0 %; HDW 3.81; HGB 9.6 gm/dL (11.4-16.0); Hypochromasia Marked; Luc # (Auto) 0.16; Luc % (Auto) 1; Lymphocytes # (A) 0.8 k/uL (1.0-4.8); Lymphocytes % (A) 5 %; MCH 23.8 pg (25.0-35.0); Monocytes # (A) 0.5 k/uL (0-1.0); Monocytes % (A) 3 %; Neutrophils # (A) 15.4 k/uL (1.3-7.7); Neutrophils % (A) 91 %; Poikilocytosis Slight; RBC 4.03 m/uL (3.80-5.40); RDW 16.9 % (11.5-15.5); WBC 16.9 k/uL (3.8-10.6); WBC (Perox) 17.82
[2016-05-05 09:28] LABS: MCHC 27.3 g/dL (31.0-37.0)
[2016-05-05 09:32] LABS: ALT 52 U/L (9-52); AST 29 U/L (14-36); Alkaline Phosphatase 63 U/L (38-126); Anion Gap 9 mmol/L; Blood Urea Nitrogen 33 mg/dL (7-17); Calcium 8.8 mg/dL (8.4-10.2); Carbon Dioxide 29 mmol/L (22-30); Chloride 102 mmol/L (98-107); Glucose 187 mg/dL (74-99); Non-African American GFR(MDRD) >60 (>60 ml/min/1.73 sqM); Potassium 4.5 mmol/L (3.5-5.1); Sodium 140 mmol/L (137-145); Total Bilirubin 0.5 mg/dL (0.2-1.3); Total Protein 6.3 g/dL (6.3-8.2)
[2016-05-05] MEDS: PANTOPRAZOLE 40 MG/10 ML VIAL IV SCH (09:35)
[2016-05-05] MEDS: methylPREDNISolone SOD SUCCI 40 MG/ML 1 ML VIAL IV SCH ×2 (09:35→20:12)
[2016-05-05] MEDS: METOPROLOL SUCCINATE (ER) 100 MG TAB.ER.24H PO SCH ×2 (09:38→20:12)
[2016-05-05] MEDS: HYDROcodone/APAP 10-325MG 1 EACH TAB PO PRN ×2 (09:38→20:12)
[2016-05-05] MEDS: DIGOXIN 250 MCG TAB PO SCH (09:38)
[2016-05-05] MEDS: AZITHROMYCIN 500 MG TAB PO SCH (09:38)
[2016-05-05] MEDS: DILTIAZEM CD 240 MG CAP.ER.24H PO SCH (09:38)
[2016-05-05] MEDS: FUROSEMIDE 40 MG TAB PO SCH (09:38)
[2016-05-05 10:16] LABS: Glucose,Whole Blood 217 mg/dL (75-99)
[2016-05-05] MEDS ORDERED: guaiFENesin SYRUP 100MG/5ML 200 MG/10 ML CUP PO PRN (11:20)
--- NOTE | 2016-05-05 11:23 | P.PN ---
Subjective This is a 76-year-old female patient evaluated and examined today on the fourth floor Patient initially had a hemoglobin of 6.1 and an INR of 2.0 lactic acid of 3.3 at [facility], the patient was then transferred to [facility]. Initial labs upon arrival were hemoglobin of 6.6, INR of 1.9 , and a lactic acid of 2.2. The patient stated she had been having some subjective fevers at home with chills and intermittent nonproductive cough with shortness of breath. Since being here [facility] the patient has received 2 units of packed red blood cells. The patient has never showed any evidence of an active bleed. Patient's colonoscopy has been postponed related to an incomplete bowel prep last week. The patient since then also developed ischemic vascular changes to her left lower extremity last Tuesday secondary to her peripheral ALLERGY re-disease and she has a left femoral artery occlusion. The patient is receiving IV heparin at this time. Upon evaluation today the patient is resting up in bed in no distress. The patient is currently using 3 L of oxygen, she states she does have a productive cough with clear to white sputum. Patient states that the [employer] seem to be helping her significantly. The patient does have a diagnosis of obstructive sleep apnea and family has brought in her home BiPAP machine. The patient is a bit tearful today. Apparently the patient lost her yesterday he was on hospice. Objective - Vital Signs Vital signs: Vital Signs Temp 97.1 F L 05/05/16 07:00 Pulse 72 05/05/16 08:21 Resp 24 05/05/16 08:00 BP 160/74 05/05/16 07:00 Pulse Ox 92 L 05/05/16 07:00 Intake & Output 05/04/16 05/05/16 05/05/16 18:59 06:59 18:59 Intake Total 576.223 311.619 17.103 Balance 576.223 311.619 17.103 Weight 105.5 kg 107 kg Intake: Intake, IV Titration 576.223 311.619 17.103 Amount Heparin Sodium,Porcine/ 500.000 254.369 D5w Pmx 25,000 unit In Dextrose/Water 1 500ml. bag @ 8.5 UNITS/KG/HR 20. 06 mls/hr IV .Q24H [facility] Rx #:[id number] Insulin Regular 100 unit 76.223 57.250 17.103 In Sodium Chloride 0.9% 100 ml @ Titrate IV .Q0M [facility] Rx#:[id number] Other: Voiding Method Bedpan Bedpan # Voids 5 1 - Exam GENERAL EXAM: Alert, active, comfortable in no apparent distress. HEAD: Normocephalic. EYES: Normal reaction of pupils, equal size. NOSE: Clear with pink turbinates. THROAT: No erythema or exudates. NECK: No masses, no JVD. CHEST: No chest wall deformity. LUNGS: Lungs noted to the course. Wheezes noted bilaterally on inspiration and expiration. CVS: S1 and S2 normal with no audible mumurs, regular rhythm. ABDOMEN: No hepatosplenomegaly, normal bowel sounds, no guarding or rigidity. EXTREMITIES: No edema noted, pedal pulses palpable. SKIN: No rashes CENTRAL NERVOUS SYSTEM: No focal deficits, tone is normal in all 4 extremities. - Labs CBC & Chem 7: 05/05/16 08:47 05/05/16 08:47 Labs: Abnormal Lab Results - Last 24 Hours (Table) 05/04/16 05/04/16 05/04/16 Range/Units 12:12 14:04 17:00 WBC (3.8-10.6) k/uL Hgb (11.4-16.0) gm/dL MCH (25.0-35.0) pg MCHC (31.0-37.0) g/dL RDW (11.5-15.5) % Neutrophils # (1.3-7.7) k/uL Lymphocytes # (1.0-4.8) k/uL APTT (22.0-30.0) sec BUN (7-17) mg/dL Glucose (74-99) mg/dL POC Glucose (mg/dL) 201 H 172 H 228 H (75-99) mg/dL Albumin (3.5-5.0) g/dL 05/04/16 05/04/16 05/04/16 Range/Units 18:19 18:36 20:09 WBC (3.8-10.6) k/uL Hgb (11.4-16.0) gm/dL MCH (25.0-35.0) pg MCHC (31.0-37.0) g/dL RDW (11.5-15.5) % Neutrophils # (1.3-7.7) k/uL Lymphocytes # (1.0-4.8) k/uL APTT 47.3 H (22.0-30.0) sec BUN (7-17) mg/dL Glucose (74-99) mg/dL POC Glucose (mg/dL) 235 H 225 H (75-99) mg/dL Albumin (3.5-5.0) g/dL 05/04/16 05/05/16 05/05/16 Range/Units 22:12 00:04 02:04 WBC (3.8-10.6) k/uL Hgb (11.4-16.0) gm/dL MCH (25.0-35.0) pg MCHC (31.0-37.0) g/dL RDW (11.5-15.5) % Neutrophils # (1.3-7.7) k/uL Lymphocytes # (1.0-4.8) k/uL APTT (22.0-30.0) sec BUN (7-17) mg/dL Glucose (74-99) mg/dL POC Glucose (mg/dL) 178 H 177 H 210 H (75-99) mg/dL Albumin (3.5-5.0) g/dL 05/05/16 05/05/16 05/05/16 Range/Units 04:21 06:01 07:51 WBC (3.8-10.6) k/uL Hgb (11.4-16.0) gm/dL MCH (25.0-35.0) pg MCHC (31.0-37.0) g/dL RDW (11.5-15.5) % Neutrophils # (1.3-7.7) k/uL Lymphocytes # (1.0-4.8) k/uL APTT (22.0-30.0) sec BUN (7-17) mg/dL Glucose (74-99) mg/dL POC Glucose (mg/dL) 185 H 187 H 195 H (75-99) mg/dL Albumin (3.5-5.0) g/dL 05/05/16 05/05/16 05/05/16 Range/Units 08:47 08:47 08:47 WBC 16.9 H (3.8-10.6) k/uL Hgb 9.6 L (11.4-16.0) gm/dL MCH 23.8 L (25.0-35.0) pg MCHC 27.3 L (31.0-37.0) g/dL RDW 16.9 H (11.5-15.5) % Neutrophils # 15.4 H (1.3-7.7) k/uL Lymphocytes # 0.8 L (1.0-4.8) k/uL APTT 66.8 H (22.0-30.0) sec BUN 33 H (7-17) mg/dL Glucose 187 H (74-99) mg/dL POC Glucose (mg/dL) (75-99) mg/dL Albumin 3.2 L (3.5-5.0) g/dL 05/05/16 Range/Units 10:14 WBC (3.8-10.6) k/uL Hgb (11.4-16.0) gm/dL MCH (25.0-35.0) pg MCHC (31.0-37.0) g/dL RDW (11.5-15.5) % Neutrophils # (1.3-7.7) k/uL Lymphocytes # (1.0-4.8) k/uL APTT (22.0-30.0) sec BUN (7-17) mg/dL Glucose (74-99) mg/dL POC Glucose (mg/dL) 217 H (75-99) mg/dL Albumin (3.5-5.0) g/dL Assessment and Plan Plan: Assessment GI bleed Symptomatic Anemia Acute blood loss anemia Lactic acidosis sepsis Elevated INR Acute exacerbation of COPD Obesity History of chronic moderate persistent asthma Diabetes mellitus Obstructive sleep apnea Ischemic left leg Plan Medications have been reviewed and we will continue with current treatment. Patient to use home BiPAP at night. Continue with IV heparin. Continue with current nebulizer treatments. Guaifenesin added for her cough. Continue to monitor for any active bleeding. Patient will undergo a colonoscopy possibly outpatient. We will continue to monitor labs and adjust treatment as necessary. I performed an examination of the patient and discussed their management with the nurse practitioner. I have reviewed the nurse practitioner's note and agree with the documented findings and plan of care.
--- NOTE | 2016-05-05 11:33 | CDI ---
In responding to this query, please exercise your independent professional judgment. The [facility] Coding Staff and Clinical Documentation Specialists appreciate your assistance in clarifying documentation, maintaining compliance with coding guidelines, accurately documenting patients condition and capturing severity of illness. The fact that a question is asked does not imply that any particular answer is desired or expected. Communication forms are a method of clarifying documentation and are not made part of the Legal Health Record. Thank you in advance for your clarification. Last Revision, April 2015 Sophie Soriano [address] [place] [address] Documentation Clarification Form 2nd request (signing the query is not a response, it must be documented in the medical record.) Date: 05/03/2016 3:15:00 PM From: Kat Flores RN, CCDS Admit Date: 04/27/2016 4:56:00 AM Patient Name: Maria De Jesus Bui Visit Number: [id number] Dr. Elda Parrish Correlate for CHF vs. pneumonia is documented in multiple progress notes. History/Risk Factors: Asthma, DM, HTN, A-fib, Hyperlipidemia, smoker Clinical Indicators: VS/Pulse Ox: Temp 99.9, hr 90, RR 24, B/P 138/65, spo2 97% 3l NC BNP: not done 04/30/16 Echocardiogram Results: EF 40-45%, LA is moderately dilated CT Angio: cardiomegly, bilateral pleural effusions, bibasilar atelectasis Treatment: Lasix 40 mg PO QD, Lasix 20mg PO Noon QD, Lasix 40mg IVP x2, 20 mg IVP x1 Consults: Cardiology signed off In your professional opinion, can you please clarify the acuity and type of CHF if known? Acute Chronic Acute on Chronic AND Systolic Diastolic Systolic and Diastolic Cor Pulmonale (Right Sided HF w/ Pulmonary HTN) Unable to determine Other, please specify If known, please specify if Heart Failure is due to: Hypertension Rheumatic Fever Please document in your progress notes and discharge summary in order to capture severity of illness and risk of mortality. Include clinical findings that support your diagnosis. FYI: Press F11 to launch patient chart. Place X here if this finding has no clinical significance, is not applicable or if you are not able to provide any additional documentation. MTDD
[2016-05-05 12:12] LABS: Glucose,Whole Blood 221 mg/dL (75-99)
[2016-05-05] MEDS: FUROSEMIDE 20 MG TAB PO SCH (12:30)
[2016-05-05 14:09] LABS: Glucose,Whole Blood 233 mg/dL (75-99)
[2016-05-05 15:59] LABS: Glucose,Whole Blood 245 mg/dL (75-99)
[2016-05-05 17:48] LABS: Glucose,Whole Blood 205 mg/dL (75-99)
--- NOTE | 2016-05-05 18:23 | P.PN ---
Subjective Principal diagnosis: Anemia Patient is a 76-year-old female with multiple medical problems currently admitted to medical floor. Patient has severe shortness of breath, she has evidence of pneumonia and acute exacerbation of chronic obstructive pulmonary disease and evidence of fluid overload she is followed by pulmonary she is maintained on IV antibiotic IV Lasix and IV steroids and inhaled bronchodilators he has been improving gradually. Patient has chronic anemia which has required red blood cell transfusion during this admission, she had an EGD which was unremarkable 2 month ago, we have been and able to proceed was colonoscopy due to her multiple comorbidities. Yesterday she developed a bluish discoloration with coldness of her left lower extremity, lower extremity Doppler was negative for DVT she was seen by Dr. García vascular surgeon she was started on IV heparin and her leg improved significantly. Objective - Vital Signs Vital signs: Vital Signs Temp 97.3 F L 05/05/16 15:00 Pulse 78 05/05/16 16:33 Resp 20 05/05/16 15:53 BP 147/69 05/05/16 15:00 Pulse Ox 92 L 05/05/16 15:00 Intake & Output 05/04/16 05/05/16 05/05/16 18:59 06:59 18:59 Intake Total 576.223 311.619 578.446 Balance 576.223 311.619 578.446 Weight 105.5 kg 107 kg Intake: IV 520 Heparin Sodium,Porcine/ 270 D5w Pmx 25,000 unit In Dextrose/Water 1 500ml. bag @ 8.5 UNITS/KG/HR 20. 06 mls/hr IV .Q24H [facility] Rx #:[id number] Insulin Regular 100 unit 40 In Sodium Chloride 0.9% 100 ml @ Titrate IV .Q0M [facility] Rx#:[id number] Sodium Chloride 0.9% 1, 160 000 ml @ 20 mls/hr IV . Q24H [facility] Rx#:[id number] cefTRIAXone 1,000 mg In 50 Sodium Chloride 0.9% 50 ml @ 100 mls/hr IVPB Q24HR [facility] Rx#:[id number] Intake, IV Titration 576.223 311.619 58.446 Amount Heparin Sodium,Porcine/ 500.000 254.369 D5w Pmx 25,000 unit In Dextrose/Water 1 500ml. bag @ 8.5 UNITS/KG/HR 20. 06 mls/hr IV .Q24H [facility] Rx #:[id number] Insulin Regular 100 unit 76.223 57.250 58.446 In Sodium Chloride 0.9% 100 ml @ Titrate IV .Q0M [facility] Rx#:[id number] Other: Voiding Method Bedpan Bedpan # Voids 5 1 - Exam HEENT head normocephalic and atraumatic Neck is supple no JVD no goiter no lymphadenopathy Chest exam was a scattered crackles bilaterally no wheezing Cardiac exam reveals regular heart sounds no gallops no murmurs Abdomen is soft nontender no organomegaly Extremity exam reveals no edema no cyanosis or clubbing - Labs CBC & Chem 7: 05/05/16 08:47 05/05/16 08:47 Labs: Abnormal Lab Results - Last 24 Hours (Table) 05/04/16 05/04/16 05/04/16 Range/Units 18:36 20:09 22:12 WBC (3.8-10.6) k/uL Hgb (11.4-16.0) gm/dL MCH (25.0-35.0) pg MCHC (31.0-37.0) g/dL RDW (11.5-15.5) % Neutrophils # (1.3-7.7) k/uL Lymphocytes # (1.0-4.8) k/uL APTT 47.3 H (22.0-30.0) sec BUN (7-17) mg/dL Glucose (74-99) mg/dL POC Glucose (mg/dL) 225 H 178 H (75-99) mg/dL Albumin (3.5-5.0) g/dL 05/05/16 05/05/16 05/05/16 Range/Units 00:04 02:04 04:21 WBC (3.8-10.6) k/uL Hgb (11.4-16.0) gm/dL MCH (25.0-35.0) pg MCHC (31.0-37.0) g/dL RDW (11.5-15.5) % Neutrophils # (1.3-7.7) k/uL Lymphocytes # (1.0-4.8) k/uL APTT (22.0-30.0) sec BUN (7-17) mg/dL Glucose (74-99) mg/dL POC Glucose (mg/dL) 177 H 210 H 185 H (75-99) mg/dL Albumin (3.5-5.0) g/dL 05/05/16 05/05/16 05/05/16 Range/Units 06:01 07:51 08:47 WBC 16.9 H (3.8-10.6) k/uL Hgb 9.6 L (11.4-16.0) gm/dL MCH 23.8 L (25.0-35.0) pg MCHC 27.3 L (31.0-37.0) g/dL RDW 16.9 H (11.5-15.5) % Neutrophils # 15.4 H (1.3-7.7) k/uL Lymphocytes # 0.8 L (1.0-4.8) k/uL APTT (22.0-30.0) sec BUN (7-17) mg/dL Glucose (74-99) mg/dL POC Glucose (mg/dL) 187 H 195 H (75-99) mg/dL Albumin (3.5-5.0) g/dL 05/05/16 05/05/16 05/05/16 Range/Units 08:47 08:47 10:14 WBC (3.8-10.6) k/uL Hgb (11.4-16.0) gm/dL MCH (25.0-35.0) pg MCHC (31.0-37.0) g/dL RDW (11.5-15.5) % Neutrophils # (1.3-7.7) k/uL Lymphocytes # (1.0-4.8) k/uL APTT 66.8 H (22.0-30.0) sec BUN 33 H (7-17) mg/dL Glucose 187 H (74-99) mg/dL POC Glucose (mg/dL) 217 H (75-99) mg/dL Albumin 3.2 L (3.5-5.0) g/dL 05/05/16 05/05/16 05/05/16 Range/Units 12:09 14:08 15:57 WBC (3.8-10.6) k/uL Hgb (11.4-16.0) gm/dL MCH (25.0-35.0) pg MCHC (31.0-37.0) g/dL RDW (11.5-15.5) % Neutrophils # (1.3-7.7) k/uL Lymphocytes # (1.0-4.8) k/uL APTT (22.0-30.0) sec BUN (7-17) mg/dL Glucose (74-99) mg/dL POC Glucose (mg/dL) 221 H 233 H 245 H (75-99) mg/dL Albumin (3.5-5.0) g/dL 05/05/16 Range/Units 17:46 WBC (3.8-10.6) k/uL Hgb (11.4-16.0) gm/dL MCH (25.0-35.0) pg MCHC (31.0-37.0) g/dL RDW (11.5-15.5) % Neutrophils # (1.3-7.7) k/uL Lymphocytes # (1.0-4.8) k/uL APTT (22.0-30.0) sec BUN (7-17) mg/dL Glucose (74-99) mg/dL POC Glucose (mg/dL) 205 H (75-99) mg/dL Albumin (3.5-5.0) g/dL Assessment and Plan Plan: 1. Acute symptomatic anemia secondary to chronic blood loss and suspected lower GI bleed. Patient received 2 unit of PRBCs since admission. She had an EGD last month during her last hospitalization at [facility] that was unremarkable. She was seen and evaluated by gastroenterology. Patient's colonoscopy he is scheduled again for tomorrow. Canceled today due to fluid overload and poor bowel prep. Patient will be rescheduled for colonoscopy tomorrow 2. Underlying pneumonia with sepsis on presentation, continue IV antibiotics 3. Acute COPD exacerbation seen and evaluated by pulmonology. Continue bronchodilator and inhaled steroids. Patient had been having wheezing this morning as well. Could be related to some fluid overload as well as her COPD exacerbation pulmonate service has started patient on IV Solu-Medrol 4. Paroxysmal atrial fibrillation on anticoagulation with Coumadin: Currently on hold awaiting further evaluation of underlying anemia. Patient has been having episodes of atrial fibrillation with rapid ventricular response. Evaluated by cardiology. They've added digoxin to her regimen of medications. Appreciate their input 5. 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 Diabetes mellitus insulin-dependent. Continue home insulin. We'll change sliding scale to the steroid scale 8. Fluid overload will give patient another dose of IV Lasix. 9. Anemia, will give 1 unit of RBCs monitor labs closely 10. 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 Family does not want any extensive surgical intervention, at this time his plan is to proceed with angiogram. Input from Dr. García again today after prolonged discussion, will consider surgery in the next 2-3 days At this time we are awaiting improvement in her respiratory status to proceed with colonoscopy After that patient may be restarted on Coumadin while on heparin and she can be discharged home when her Coumadin is therapeutic
[2016-05-05] MEDS: LOSARTAN 50 MG TAB PO SCH (20:12)
[2016-05-05] MEDS: MONTELUKAST 10 MG TAB PO SCH (20:12)
[2016-05-05] MEDS: PRAVASTATIN SODIUM 20 MG TAB PO SCH (20:12)
[2016-05-05] MEDS: INSULIN REGULAR 100 UNIT in SODIUM CHLORIDE 0.9% 100 ML IV SCH (20:14)
[2016-05-05 20:15] LABS: Glucose,Whole Blood 224 mg/dL (75-99)
[2016-05-05 22:27] LABS: Glucose,Whole Blood 211 mg/dL (75-99)
[2016-05-06 00:03] LABS: Glucose,Whole Blood 236 mg/dL (75-99)
[2016-05-06 02:25] LABS: Glucose,Whole Blood 220 mg/dL (75-99)
[2016-05-06 04:14] LABS: Glucose,Whole Blood 218 mg/dL (75-99)
[2016-05-06 06:22] LABS: Glucose,Whole Blood 216 mg/dL (75-99)
[2016-05-06 08:12] LABS: Glucose,Whole Blood 233 mg/dL (75-99)
[2016-05-06] MEDS: INSULIN LISPRO (humaLOG) 300 UNIT/3 ML VIAL SQ SCH ×3 (08:29→18:29)
[2016-05-06] MEDS: AZITHROMYCIN 500 MG TAB PO SCH (08:30)
[2016-05-06] MEDS: DIGOXIN 250 MCG TAB PO SCH (08:30)
[2016-05-06] MEDS: methylPREDNISolone SOD SUCCI 40 MG/ML 1 ML VIAL IV SCH (08:31)
[2016-05-06] MEDS: PANTOPRAZOLE 40 MG/10 ML VIAL IV SCH (08:31)
[2016-05-06] MEDS: FUROSEMIDE 40 MG TAB PO SCH (08:31)
[2016-05-06] MEDS: METOPROLOL SUCCINATE (ER) 100 MG TAB.ER.24H PO SCH ×2 (08:31→22:05)
[2016-05-06] MEDS: DILTIAZEM CD 240 MG CAP.ER.24H PO SCH (08:31)
[2016-05-06] MEDS: HYDROcodone/APAP 10-325MG 1 EACH TAB PO PRN ×2 (08:40→20:10)
[2016-05-06] MEDS: IPRATROPIUM-ALBUTEROL 3 ML NEB INHALATION SCH ×4 (08:57→21:04)
[2016-05-06] MEDS: BUDESONIDE 1 MG/2 ML NEBU INHALATION SCH ×2 (08:57→21:04)
[2016-05-06 09:58] LABS: Anisocytosis Slight; Basophils % (A) 0 %; CH 23.8; CHCM 27.5; Eosinophils % (A) 0 %; HCT 35.5 % (34.0-46.0); HDW 3.86; HGB 9.7 gm/dL (11.4-16.0); Hypochromasia Marked; Luc # (Auto) 0.19; Luc % (Auto) 1; Lymphocytes # (A) 0.9 k/uL (1.0-4.8); Lymphocytes % (A) 5 %; MCH 23.6 pg (25.0-35.0); MCV 86.5 fL (80.0-100.0); Mean Platelet Volume 9.2; Monocytes # (A) 0.5 k/uL (0-1.0); Monocytes % (A) 3 %; Neutrophils # (A) 16.9 k/uL (1.3-7.7); Neutrophils % (A) 91 %; Poikilocytosis Slight; RBC 4.11 m/uL (3.80-5.40); RDW 17.1 % (11.5-15.5); WBC 18.5 k/uL (3.8-10.6); WBC (Perox) 19.73
[2016-05-06 10:02] LABS: MCHC 27.3 g/dL (31.0-37.0)
[2016-05-06 10:11] LABS: Glucose,Whole Blood 278 mg/dL (75-99)
[2016-05-06 10:15] LABS: ALT 54 U/L (9-52); AST 20 U/L (14-36); Alkaline Phosphatase 73 U/L (38-126); Anion Gap 12 mmol/L; Blood Urea Nitrogen 35 mg/dL (7-17); Calcium 8.6 mg/dL (8.4-10.2); Carbon Dioxide 25 mmol/L (22-30); Chloride 102 mmol/L (98-107); Glucose 258 mg/dL (74-99); Non-African American GFR(MDRD) >60 (>60 ml/min/1.73 sqM); Potassium 4.5 mmol/L (3.5-5.1); Sodium 139 mmol/L (137-145); Total Bilirubin 0.4 mg/dL (0.2-1.3); Total Protein 6.1 g/dL (6.3-8.2)
[2016-05-06] MEDS: SODIUM CHLORIDE 0.9% 1,000 ML IV SCH (10:41)
--- NOTE | 2016-05-06 11:00 | P.PN ---
Subjective Patient presented with generalized weakness and shortness of breath. She is being treated for pneumonia with sepsis. On IV antibiotics. She also was anemic with stool in the outpatient setting positive for Hemoccult blood. She was initially scheduled for colonoscopy today. However patient stools are still not clear. Also she has been tachycardic at times the heart rate all into the 150s. Medications have been adjusted. Albuterol was discontinued and patient was placed on Xopenex. Restarted her home dose of the metoprolol 200 mg twice a day. Pulmonary service gave patient a dose of IV Lasix. There was some evidence of fluid overload which may have contributed to her tachycardia as well. Chest x-ray shows bilateral infiltrate and pleural effusion. Correlate for CHF versus pneumonia. 04/30/2016 patient was scheduled for colonoscopy today. However due to her worsening respiratory status and poor bowel prep colonoscopy is again canceled. It is technically scheduled for tomorrow. Patient has had some shortness of breath and more congestion in the lungs sounds like fluid overload. a dose of IV Lasix has been ordered. Yesterday she is also been complaining of left leg pain Doppler was negative for DVT. Patient evaluated by cardiology. They have added digoxin to help with better rate control. Patient denies any chest pain. Not reporting any significant shortness of breath. However now she is requiring 4 L of oxygen satting at 96%. Denies any nausea or vomiting. Denies any difficulty urinating. 05/03/2016 patient is still not been able to have her colonoscopy. She's found have evidence of ischemia of the left leg with occlusion of the left femoral artery. She is currently on IV heparin and followed by vascular surgery. Patient is also been followed by GI service in regards to her anemia. Hemoglobin 9.3. Patient reports having shortness of breath still requiring about 5 L nasal cannula. She did receive another dose of IV Lasix yesterday for some fluid overload. Patient denies any chest pain. Denies any nausea or vomiting. Denies any difficulty with urinating. 05/06/2016 patient reports that her breathing has shown improvement. She is down to 3 L nasal cannula satting at 92%. She denies any chest pain. Denies any nausea or vomiting. Reports having bowel movements. Denies any difficulty urinating. She reports still having some left leg pain Objective - Vital Signs Vital signs: Vital Signs Temp 96.2 F L 05/06/16 07:00 Pulse 76 05/06/16 10:15 Resp 22 05/06/16 09:00 BP 174/80 05/06/16 07:00 Pulse Ox 92 L 05/06/16 07:00 Intake & Output 05/05/16 05/06/16 05/06/16 18:59 06:59 18:59 Intake Total 1078.446 55.785 435.394 Balance 1078.446 55.785 435.394 Weight 121 kg Intake: IV 520 Heparin Sodium,Porcine/ 270 D5w Pmx 25,000 unit In Dextrose/Water 1 500ml. bag @ 8.5 UNITS/KG/HR 20. 06 mls/hr IV .Q24H [facility] Rx #:[id number] Insulin Regular 100 unit 40 In Sodium Chloride 0.9% 100 ml @ Titrate IV .Q0M [facility] Rx#:[id number] Sodium Chloride 0.9% 1, 160 000 ml @ 20 mls/hr IV . Q24H [facility] Rx#:[id number] cefTRIAXone 1,000 mg In 50 Sodium Chloride 0.9% 50 ml @ 100 mls/hr IVPB Q24HR [facility] Rx#:[id number] Intake, IV Titration 558.446 55.785 435.394 Amount Heparin Sodium,Porcine/ 500 412.351 D5w Pmx 25,000 unit In Dextrose/Water 1 500ml. bag @ 8.5 UNITS/KG/HR 20. 06 mls/hr IV .Q24H [facility] Rx #:[id number] Insulin Regular 100 unit 58.446 55.785 23.043 In Sodium Chloride 0.9% 100 ml @ Titrate IV .Q0M [facility] Rx#:[id number] Other: Voiding Method Bedpan Bedpan # Voids 1 - Exam Head normocephalic Neck supple Lungs few scattered wheezes bilaterally with some coarse breath sounds Heart regular rate and rhythm S1-S2, no rub or gallop Abdomen is soft nontender nondistended positive bowel sounds no hepatosplenomegaly Extremities no edema tenderness with palpation of the left leg Neuro alert and orientated to 3 - Labs CBC & Chem 7: 05/06/16 09:24 05/06/16 09:24 Labs: Abnormal Lab Results - Last 24 Hours (Table) 05/05/16 05/05/16 05/05/16 Range/Units 12:09 14:08 15:57 WBC (3.8-10.6) k/uL Hgb (11.4-16.0) gm/dL MCH (25.0-35.0) pg MCHC (31.0-37.0) g/dL RDW (11.5-15.5) % Neutrophils # (1.3-7.7) k/uL Lymphocytes # (1.0-4.8) k/uL APTT (22.0-30.0) sec BUN (7-17) mg/dL Glucose (74-99) mg/dL POC Glucose (mg/dL) 221 H 233 H 245 H (75-99) mg/dL ALT (9-52) U/L Total Protein (6.3-8.2) g/dL Albumin (3.5-5.0) g/dL 05/05/16 05/05/16 05/05/16 Range/Units 17:46 20:14 22:21 WBC (3.8-10.6) k/uL Hgb (11.4-16.0) gm/dL MCH (25.0-35.0) pg MCHC (31.0-37.0) g/dL RDW (11.5-15.5) % Neutrophils # (1.3-7.7) k/uL Lymphocytes # (1.0-4.8) k/uL APTT (22.0-30.0) sec BUN (7-17) mg/dL Glucose (74-99) mg/dL POC Glucose (mg/dL) 205 H 224 H 211 H (75-99) mg/dL ALT (9-52) U/L Total Protein (6.3-8.2) g/dL Albumin (3.5-5.0) g/dL 05/05/16 05/06/16 05/06/16 Range/Units 23:58 02:19 04:11 WBC (3.8-10.6) k/uL Hgb (11.4-16.0) gm/dL MCH (25.0-35.0) pg MCHC (31.0-37.0) g/dL RDW (11.5-15.5) % Neutrophils # (1.3-7.7) k/uL Lymphocytes # (1.0-4.8) k/uL APTT (22.0-30.0) sec BUN (7-17) mg/dL Glucose (74-99) mg/dL POC Glucose (mg/dL) 236 H 220 H 218 H (75-99) mg/dL ALT (9-52) U/L Total Protein (6.3-8.2) g/dL Albumin (3.5-5.0) g/dL 05/06/16 05/06/16 05/06/16 Range/Units 06:18 08:11 09:24 WBC 18.5 H (3.8-10.6) k/uL Hgb 9.7 L (11.4-16.0) gm/dL MCH 23.6 L (25.0-35.0) pg MCHC 27.3 L (31.0-37.0) g/dL RDW 17.1 H (11.5-15.5) % Neutrophils # 16.9 H (1.3-7.7) k/uL Lymphocytes # 0.9 L (1.0-4.8) k/uL APTT (22.0-30.0) sec BUN (7-17) mg/dL Glucose (74-99) mg/dL POC Glucose (mg/dL) 216 H 233 H (75-99) mg/dL ALT (9-52) U/L Total Protein (6.3-8.2) g/dL Albumin (3.5-5.0) g/dL 05/06/16 05/06/16 05/06/16 Range/Units 09:24 09:24 10:08 WBC (3.8-10.6) k/uL Hgb (11.4-16.0) gm/dL MCH (25.0-35.0) pg MCHC (31.0-37.0) g/dL RDW (11.5-15.5) % Neutrophils # (1.3-7.7) k/uL Lymphocytes # (1.0-4.8) k/uL APTT 76.1 H (22.0-30.0) sec BUN 35 H (7-17) mg/dL Glucose 258 H (74-99) mg/dL POC Glucose (mg/dL) 278 H (75-99) mg/dL ALT 54 H (9-52) U/L Total Protein 6.1 L (6.3-8.2) g/dL Albumin 3.1 L (3.5-5.0) g/dL Assessment and Plan Plan: 1. Acute symptomatic anemia secondary to chronic blood loss and suspected lower GI bleed. Patient received 2 unit of PRBCs since admission. She had an EGD last month during her last hospitalization at [facility] that was unremarkable. She was seen and evaluated by gastroenterology. colonoscopy was canceled during this admission. GI service has signed off. The recommending outpatient evaluation in one to 2 weeks with barium enema. 2. Underlying pneumonia with sepsis on presentation: On IV ceftriaxone and azithromycin. 3. Acute COPD exacerbation seen and evaluated by pulmonology. Continue bronchodilator and inhaled steroids. Continue IV Solu-Medrol 4. Paroxysmal atrial fibrillation on anticoagulation with Coumadin: Currently on hold awaiting further evaluation of underlying anemia. Patient has been having episodes of atrial fibrillation with rapid ventricular response. Evaluated by cardiology. They've added digoxin to her regimen of medications. Appreciate their input. Heart rate controlled 5. 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 Diabetes mellitus insulin-dependent. With hyperglycemia secondary to steroids. continue insulin drip. 8. Ischemic left leg: Currently on IV heparin. CTA shows complete occlusion of the left femoral artery. awaiting pulmonary and vascular surgery recommendations regarding proceeding with surgical intervention on patient's leg 9. acute on chronic systolic CHF with exacerbation. Improved with IV Lasix. She is now on her home dose of oral Lasix. Echo shows an EF of 40-45%
[2016-05-06 12:04] LABS: Glucose,Whole Blood 247 mg/dL (75-99)
[2016-05-06] MEDS: INSULIN REGULAR 100 UNIT in SODIUM CHLORIDE 0.9% 100 ML IV SCH ×2 (12:10→23:02)
[2016-05-06] MEDS: FUROSEMIDE 10 MG/ML 4 ML VIAL IV SCH ×2 (12:10→22:22)
--- NOTE | 2016-05-06 12:32 | PN ---
DATE OF SERVICE: 05/06/2016 Ms. Maria De Jesus Bui is seen, evaluated, and examined. This patient has been hospitalized with GI bleed, has been found to have a pneumonia as well. In addition to that, patient has a component of congestive heart failure, responded well to furosemide. Patient has chronic atrial fibrillation, was on Coumadin which has been due to GI bleed. He is status post upper endoscopy which is negative for any active source of bleeding. Colonoscopy could not be performed due to in instability of patient. In the meantime, patient developed left femoral artery thrombosis. Patient is on heparin, hemoglobin; however, has been stable as per discussion with Vascular Surgery. Surgical procedure is being contemplated for thrombectomy. She is awake. She has open eyes. Follow simple commands. No obvious distress present. Her hemodynamic status is marginal, but stable, respiratory rate in high teens to low 20s, heart rate 71, temperature 97, saturation 92% on 3 L oxygen. This is down from 5 L. Her blood pressure 170/80. HEENT: Unremarkable. NECK: Supple without lymphadenopathy, jugular venous distention or carotid bruit. LUNGS: Bilateral good air entry is present with basal crackles. HEART: Regular rate and rhythm, S1 and S2 audible. Abdomen is soft. No rebound or rigidity. EXTREMITIES: +1 peripheral pulses. NEUROLOGICAL EXAMINATION: Otherwise, awake and alert. Labs reviewed. Medications reviewed as well. Tylenol is as needed, hydrocodone APAP as needed, DuoNeb unit dose updraft 4 times a day, Xanax as needed, Zithromax 500 mg daily, Pulmicort 2 times a day, Rocephin 1 gm daily, digoxin 250 mg, diltiazem 240 mg daily, Lasix 40 mg p.o. daily, also on 20 mg at nighttime, Guaifenesin, heparin drip as per protocol, sliding scale insulin, Solu-Medrol 40 q.12, metoprolol 200 mg daily. The latest chest x-ray performed on 05/03/2016 revealed cardiomegaly, interstitial edema, bilateral pleural effusion; however some improvement has been noted. The other laboratory data reviewed. White cell count 18,500, hemoglobin 9.7, hematocrit 35, platelet count of 253,000. Sodium is 139, potassium 4.5, BUN and creatinine 35 and 0.85. LFTs are noted. AST and ALT are 20 and 54. Glucose 278. IMPRESSION: 1. Pneumonia. 2. Acute exacerbation of congestive heart failure, acute on chronic diastolic heart failure. The echocardiogram performed revealed ejection fraction of 40% to 45% though with septal hypokinesia. 3. As dictated above. Acute on chronic hypoxic respiratory failure, congestive heart failure, likely acute on chronic diastolic and systolic heart failure, thrombosis of the left lower extremity. Plan and recommendation is continue heparin. May proceed with surgery as planned. Would recommend to put patient on Lasix 40 mg IV q.12, monitor renal functions closely. Will repeat chest x-ray tomorrow as well.
[2016-05-06 14:54] LABS: Glucose,Whole Blood 202 mg/dL (75-99)
[2016-05-06 16:14] LABS: Glucose,Whole Blood 214 mg/dL (75-99)
--- NOTE | 2016-05-06 16:51 | P.PN ---
Progress Note - Text 76 white female, patient came with pneumonia and bronchitis and GI bleed patient was on Coumadin vision developed ischemic left leg CT showed occlusion of the femoral artery we put her on heparin her lungs are getting better discuss with pollution control technician and a she is improving from her lung status I have discussed with the family we will attempt to do the thrombectomy possible fem- pop and she's been scheduled for tomorrow patient does not want any prolonged operation we'll try to do the thrombectomy and bring some blood to the [facility] risk and complication discussed they want us to proceed
[2016-05-06 17:41] LABS: Glucose,Whole Blood 299 mg/dL (75-99)
[2016-05-06 20:06] LABS: Glucose,Whole Blood 170 mg/dL (75-99)
[2016-05-06 22:01] LABS: Glucose,Whole Blood 166 mg/dL (75-99)
[2016-05-06] MEDS: PRAVASTATIN SODIUM 20 MG TAB PO SCH (22:05)
[2016-05-06] MEDS: MONTELUKAST 10 MG TAB PO SCH (22:05)
[2016-05-06] MEDS: LOSARTAN 50 MG TAB PO SCH (22:05)
[2016-05-07] MEDS: INSULIN REGULAR 100 UNIT in SODIUM CHLORIDE 0.9% 100 ML IV SCH (00:07)
[2016-05-07 00:15] LABS: Glucose,Whole Blood 279 mg/dL (75-99)
[2016-05-07 02:10] LABS: Glucose,Whole Blood 180 mg/dL (75-99)
[2016-05-07 04:13] LABS: Glucose,Whole Blood 96 mg/dL (75-99)
[2016-05-07] MEDS ORDERED: INSULIN DETEMIR 100 UNIT/ML 10 ML VIAL SQ ONE (06:00)
[2016-05-07 06:11] LABS: Glucose,Whole Blood 180 mg/dL (75-99)
[2016-05-07] MEDS: INSULIN LISPRO (humaLOG) 300 UNIT/3 ML VIAL SQ SCH ×3 (07:40→18:17)
[2016-05-07] MEDS: AZITHROMYCIN 500 MG TAB PO SCH (07:58)
[2016-05-07] MEDS: DILTIAZEM CD 240 MG CAP.ER.24H PO SCH (07:59)
[2016-05-07] MEDS: DIGOXIN 250 MCG TAB PO SCH (07:59)
[2016-05-07 08:02] LABS: Glucose,Whole Blood 264 mg/dL (75-99)
[2016-05-07] MEDS: METOPROLOL SUCCINATE (ER) 100 MG TAB.ER.24H PO SCH ×2 (08:02→21:16)
[2016-05-07] MEDS: PANTOPRAZOLE 40 MG/10 ML VIAL IV SCH (08:02)
[2016-05-07] MEDS: FUROSEMIDE 10 MG/ML 4 ML VIAL IV SCH ×2 (08:02→21:16)
[2016-05-07 08:13] LABS: Anisocytosis Slight; Basophils % (A) 0 %; CHCM 28.4; Eosinophils % (A) 0 %; HCT 35.3 % (34.0-46.0); HDW 3.91; HGB 9.9 gm/dL (11.4-16.0); Hypochromasia Marked; Luc # (Auto) 0.31; Luc % (Auto) 2; Lymphocytes % (A) 5 %; MCH 23.6 pg (25.0-35.0); MCHC 28.1 g/dL (31.0-37.0); MCV 84.2 fL (80.0-100.0); Mean Platelet Volume 8.8; Monocytes # (A) 0.8 k/uL (0-1.0); Monocytes % (A) 4 %; Neutrophils # (A) 17.4 k/uL (1.3-7.7); Neutrophils % (A) 89 %; Poikilocytosis Slight; RBC 4.19 m/uL (3.80-5.40); RDW 17.3 % (11.5-15.5); WBC 19.5 k/uL (3.8-10.6); WBC (Perox) 20.13
[2016-05-07] MEDS ORDERED: IV FLUID CONTINUATION 1,000 ML IV ONE (08:19)
[2016-05-07 08:27] LABS: ALT 54 U/L (9-52); AST 25 U/L (14-36); Alkaline Phosphatase 62 U/L (38-126); Anion Gap 10 mmol/L; Blood Urea Nitrogen 40 mg/dL (7-17); Calcium 8.5 mg/dL (8.4-10.2); Carbon Dioxide 33 mmol/L (22-30); Chloride 99 mmol/L (98-107); Glucose 259 mg/dL (74-99); Non-African American GFR(MDRD) >60 (>60 ml/min/1.73 sqM); Potassium 4.7 mmol/L (3.5-5.1); Sodium 142 mmol/L (137-145); Total Bilirubin 0.5 mg/dL (0.2-1.3)
[2016-05-07] MEDS: BUDESONIDE 1 MG/2 ML NEBU INHALATION SCH ×2 (08:27→19:29)
[2016-05-07] MEDS: IPRATROPIUM-ALBUTEROL 3 ML NEB INHALATION SCH ×4 (08:27→19:29)
--- NOTE | 2016-05-07 08:29 | XR ---
EXAMINATION TYPE: XR chest 1V portable DATE OF EXAM: 05/07/2016 7:07 AM COMPARISON: 05/03/2016 HISTORY: Shortness of breath TECHNIQUE: Single frontal view of the chest is obtained. FINDINGS: The heart is enlarged and there is atherosclerotic change aorta. No pneumothorax. Intersti tium is slightly prominent. Subsegmental changes at the left lung base. Metallic device overlying the thoracic spine may represent a stimulator device. IMPRESSION: 1. Cardiomegaly and bilateral pleural effusion. Mild central venous congestion in the differential di agnosis. Basilar infiltrate not excluded. Correlate clinically. Findings stable.
[2016-05-07 08:44] LABS: INR 1.3 (<1.1); Prothrombin Time 12.6 sec (9.0-12.0)
[2016-05-07 08:46] LABS: Partial Thromboplastin Time 21.6 sec (22.0-30.0)
[2016-05-07] MEDS ORDERED: methylPREDNISolone SOD SUCCI 40 MG/ML 1 ML VIAL IV SCH (09:00)
[2016-05-07 10:09] LABS: Glucose,Whole Blood 258 mg/dL (75-99)
[2016-05-07] MEDS ORDERED: ONDANSETRON 4 MG/2 ML VIAL IVP ONE (10:12)
[2016-05-07] MEDS ORDERED: DEXAMETHASONE SOD PHOSPHATE 10 MG/ML 1 ML VIAL IV ONE (10:12)
[2016-05-07] MEDS ORDERED: INSULIN LISPRO (humaLOG) 300 UNIT/3 ML VIAL SQ ONE (10:14)
[2016-05-07] MEDS ORDERED: LACTATED RINGERS 1,000 ML IV ONE (10:15)
[2016-05-07] MEDS: SODIUM CHLORIDE 0.9% 1,000 ML IV SCH (10:47)
[2016-05-07] MEDS ORDERED: SODIUM CHLORIDE 0.9% 50 ML with CLINDAMYCIN 600 MG IV ONE ×2 (10:53)
--- NOTE | 2016-05-07 10:57 | P.PN ---
Subjective This is a 76-year-old female patient evaluated and examined today on the fourth floor Patient initially had a hemoglobin of 6.1 and an INR of 2.0 lactic acid of 3.3 at [facility], the patient was then transferred to [facility]. Initial labs upon arrival were hemoglobin of 6.6, INR of 1.9 , and a lactic acid of 2.2. The patient stated she had been having some subjective fevers at home with chills and intermittent nonproductive cough with shortness of breath. Since being here [facility] the patient has received 2 units of packed red blood cells. The patient has never showed any evidence of an active bleed. Patient's colonoscopy has been postponed related to an incomplete bowel prep last week. The patient since then also developed ischemic vascular changes to her left lower extremity last Tuesday secondary to her peripheral artery disease and she has a left femoral artery occlusion. Upon evaluation today the patient is resting up in bed in no distress. The patient is currently using 3 L of oxygen, she states she does have a productive cough with clear to white sputum. [facility]. The patient does have a diagnosis of obstructive sleep apnea and family has brought in her home BiPAP machine. Patient will be going for thrombectomy today for left femoral artery occlusion. Patient appears optimistic and in better spirits today. Objective - Vital Signs Vital signs: Vital Signs Temp 97.7 F 05/07/16 09:38 Pulse 67 05/07/16 09:38 Resp 16 05/07/16 09:38 BP 172/75 05/07/16 09:38 Pulse Ox 94 L 05/07/16 09:38 Intake & Output 05/06/16 05/07/16 05/07/16 18:59 06:59 18:59 Intake Total 486.479 581.576 108.08 Output Total 2900 Balance 486.479 -2318.424 108.08 Weight 101.5 kg Intake: IV 100 Intake, IV Titration 486.479 156.576 8.08 Amount Heparin Sodium,Porcine/ 412.351 D5w Pmx 25,000 unit In Dextrose/Water 1 500ml. bag @ 8.5 UNITS/KG/HR 20. 06 mls/hr IV .Q24H [facility] Rx #:[id number] Insulin Regular 100 unit 74.128 68.927 8.08 In Sodium Chloride 0.9% 100 ml @ Titrate IV .Q0M [facility] Rx#:[id number] Oral 425 Output: Urine 2900 Other: Voiding Method Bedpan # Voids 3 8 # Bowel Movements 1 0 - Exam GENERAL EXAM: Alert, active, comfortable in no apparent distress. HEAD: Normocephalic. EYES: Normal reaction of pupils, equal size. NOSE: Clear with pink turbinates. THROAT: No erythema or exudates. NECK: No masses, no JVD. CHEST: No chest wall deformity. LUNGS: Lungs noted to the course. Wheezes noted bilaterally on inspiration and expiration. CVS: S1 and S2 normal with no audible mumurs, regular rhythm. ABDOMEN: No hepatosplenomegaly, normal bowel sounds, no guarding or rigidity. EXTREMITIES: No edema noted, pedal pulses palpable. SKIN: No rashes CENTRAL NERVOUS SYSTEM: No focal deficits, tone is normal in all 4 extremities. - Labs CBC & Chem 7: 05/07/16 07:52 05/07/16 07:52 Labs: Abnormal Lab Results - Last 24 Hours (Table) 05/06/16 05/06/16 05/06/16 Range/Units 12:02 14:29 16:11 WBC (3.8-10.6) k/uL Hgb (11.4-16.0) gm/dL MCH (25.0-35.0) pg MCHC (31.0-37.0) g/dL RDW (11.5-15.5) % Neutrophils # (1.3-7.7) k/uL PT (9.0-12.0) sec APTT (22.0-30.0) sec Carbon Dioxide (22-30) mmol/L BUN (7-17) mg/dL Glucose (74-99) mg/dL POC Glucose (mg/dL) 247 H 202 H 214 H (75-99) mg/dL ALT (9-52) U/L Total Protein (6.3-8.2) g/dL Albumin (3.5-5.0) g/dL 05/06/16 05/06/16 05/06/16 Range/Units 16:16 17:40 20:02 WBC (3.8-10.6) k/uL Hgb (11.4-16.0) gm/dL MCH (25.0-35.0) pg MCHC (31.0-37.0) g/dL RDW (11.5-15.5) % Neutrophils # (1.3-7.7) k/uL PT (9.0-12.0) sec APTT 55.2 H (22.0-30.0) sec Carbon Dioxide (22-30) mmol/L BUN (7-17) mg/dL Glucose (74-99) mg/dL POC Glucose (mg/dL) 299 H 170 H (75-99) mg/dL ALT (9-52) U/L Total Protein (6.3-8.2) g/dL Albumin (3.5-5.0) g/dL 05/06/16 05/06/16 05/07/16 Range/Units 21:57 23:52 02:01 WBC (3.8-10.6) k/uL Hgb (11.4-16.0) gm/dL MCH (25.0-35.0) pg MCHC (31.0-37.0) g/dL RDW (11.5-15.5) % Neutrophils # (1.3-7.7) k/uL PT (9.0-12.0) sec APTT (22.0-30.0) sec Carbon Dioxide (22-30) mmol/L BUN (7-17) mg/dL Glucose (74-99) mg/dL POC Glucose (mg/dL) 166 H 279 H 180 H (75-99) mg/dL ALT (9-52) U/L Total Protein (6.3-8.2) g/dL Albumin (3.5-5.0) g/dL 05/07/16 05/07/16 05/07/16 Range/Units 06:02 07:52 07:52 WBC 19.5 H (3.8-10.6) k/uL Hgb 9.9 L (11.4-16.0) gm/dL MCH 23.6 L (25.0-35.0) pg MCHC 28.1 L (31.0-37.0) g/dL RDW 17.3 H (11.5-15.5) % Neutrophils # 17.4 H (1.3-7.7) k/uL PT (9.0-12.0) sec APTT (22.0-30.0) sec Carbon Dioxide 33 H (22-30) mmol/L BUN 40 H (7-17) mg/dL Glucose 259 H (74-99) mg/dL POC Glucose (mg/dL) 180 H (75-99) mg/dL ALT 54 H (9-52) U/L Total Protein 6.0 L (6.3-8.2) g/dL Albumin 3.1 L (3.5-5.0) g/dL 05/07/16 05/07/16 05/07/16 Range/Units 07:52 08:00 10:06 WBC (3.8-10.6) k/uL Hgb (11.4-16.0) gm/dL MCH (25.0-35.0) pg MCHC (31.0-37.0) g/dL RDW (11.5-15.5) % Neutrophils # (1.3-7.7) k/uL PT 12.6 H (9.0-12.0) sec APTT 21.6 L (22.0-30.0) sec Carbon Dioxide (22-30) mmol/L BUN (7-17) mg/dL Glucose (74-99) mg/dL POC Glucose (mg/dL) 264 H 258 H (75-99) mg/dL ALT (9-52) U/L Total Protein (6.3-8.2) g/dL Albumin (3.5-5.0) g/dL - Imaging and Cardiology Chest x-ray: report reviewed, image reviewed Assessment and Plan Plan: Assessment GI bleed Symptomatic Anemia Acute blood loss anemia Lactic acidosis sepsis Elevated INR Acute exacerbation of COPD Obesity History of chronic moderate persistent asthma Diabetes mellitus Obstructive sleep apnea Ischemic left leg Plan She will undergo thrombectomy today. Medications have been reviewed and we will continue with current treatment. Chest x-ray is reviewed and remain relatively unchanged and stable. Patient to use home BiPAP at night. Continue with current nebulizer treatments. Continue to monitor for any active bleeding. Patient will undergo a colonoscopy possibly outpatient. We will continue to monitor labs and adjust treatment as necessary. I performed an examination of the patient and discussed their management with the nurse practitioner. I have reviewed the nurse practitioner's note and agree with the documented findings and plan of care.
[2016-05-07] MEDS ORDERED: IOHEXOL 350 MG/ML 50ML BOTTLE MISCELLANE ONE (11:51)
[2016-05-07] MEDS ORDERED: THROMBIN (BOVINE) 5,000 UNIT VIAL MISCELLANE ONE (12:10)
[2016-05-07] MEDS ORDERED: HEPARIN SODIUM 1,000 UNIT/ML VIAL ONE (12:13)
[2016-05-07] MEDS ORDERED: diphenhydrAMINE 50 MG/ML 1 ML VIAL ONE (12:13)
[2016-05-07] MEDS ORDERED: fentaNYL (PF) 50 MCG/ML 2 ML AMP ONE (12:13)
[2016-05-07] MEDS ORDERED: MIDAZOLAM 2 MG/2 ML VIAL ONE (12:13)
[2016-05-07] MEDS ORDERED: PROPOFOL 10 MG/ML 20 ML VIAL IV ONE (12:13)
[2016-05-07] MEDS ORDERED: HEPARIN SODIUM,PORCINE 5,000 UNIT/ML 1 ML VIAL ONE (12:13)
[2016-05-07 12:18] LABS: Glucose,Whole Blood 144 mg/dL (75-99)
[2016-05-07] MEDS ORDERED: SODIUM CHLORIDE 0.9% 500 ML IV ONE ×2 (13:15)
[2016-05-07] MEDS ORDERED: INSULIN REGULAR 100 UNIT/ML VIAL IV ONE ×2 (13:15→13:30)
[2016-05-07 13:52] LABS: Glucose,Whole Blood 118 mg/dL (75-99)
[2016-05-07 14:34] LABS: Glucose,Whole Blood 121 mg/dL (75-99)
[2016-05-07 15:09] LABS: Glucose,Whole Blood 135 mg/dL (75-99)
--- NOTE | 2016-05-07 15:38 | P.PN ---
Subjective Patient presented with generalized weakness and shortness of breath. She is being treated for pneumonia with sepsis. On IV antibiotics. She also was anemic with stool in the outpatient setting positive for Hemoccult blood. She was initially scheduled for colonoscopy today. However patient stools are still not clear. Also she has been tachycardic at times the heart rate all into the 150s. Medications have been adjusted. Albuterol was discontinued and patient was placed on Xopenex. Restarted her home dose of the metoprolol 200 mg twice a day. Pulmonary service gave patient a dose of IV Lasix. There was some evidence of fluid overload which may have contributed to her tachycardia as well. Chest x-ray shows bilateral infiltrate and pleural effusion. Correlate for CHF versus pneumonia. 04/30/2016 patient was scheduled for colonoscopy today. However due to her worsening respiratory status and poor bowel prep colonoscopy is again canceled. It is technically scheduled for tomorrow. Patient has had some shortness of breath and more congestion in the lungs sounds like fluid overload. a dose of IV Lasix has been ordered. Yesterday she is also been complaining of left leg pain Doppler was negative for DVT. Patient evaluated by cardiology. They have added digoxin to help with better rate control. Patient denies any chest pain. Not reporting any significant shortness of breath. However now she is requiring 4 L of oxygen satting at 96%. Denies any nausea or vomiting. Denies any difficulty urinating. 05/03/2016 patient is still not been able to have her colonoscopy. She's found have evidence of ischemia of the left leg with occlusion of the left femoral artery. She is currently on IV heparin and followed by vascular surgery. Patient is also been followed by GI service in regards to her anemia. Hemoglobin 9.3. Patient reports having shortness of breath still requiring about 5 L nasal cannula. She did receive another dose of IV Lasix yesterday for some fluid overload. Patient denies any chest pain. Denies any nausea or vomiting. Denies any difficulty with urinating. 05/06/2016 patient reports that her breathing has shown improvement. She is down to 3 L nasal cannula satting at 92%. She denies any chest pain. Denies any nausea or vomiting. Reports having bowel movements. Denies any difficulty urinating. She reports still having some left leg pain 05/07/2016 patient is seen and examined in the ICU after her thrombectomy to the left leg. Patient tolerated surgery well. She is resting comfortably. She is arousable. Reports no pain. Denies any chest pain or shortness of breath. Denies any nausea or vomiting. Objective - Vital Signs Vital signs: Vital Signs Temp 97.1 F L 05/07/16 15:15 Pulse 56 L 05/07/16 15:15 Resp 12 05/07/16 15:15 BP 138/53 05/07/16 15:15 Pulse Ox 94 L 05/07/16 15:15 Intake & Output 05/06/16 05/07/16 05/07/16 18:59 06:59 18:59 Intake Total 486.479 581.576 772.08 Output Total 2900 850 Balance 486.479 -2318.424 -77.92 Weight 101.5 kg Intake: IV 764 Intake, IV Titration 486.479 156.576 8.08 Amount Heparin Sodium,Porcine/ 412.351 D5w Pmx 25,000 unit In Dextrose/Water 1 500ml. bag @ 8.5 UNITS/KG/HR 20. 06 mls/hr IV .Q24H [facility] Rx #:[id number] Insulin Regular 100 unit 74.128 68.927 8.08 In Sodium Chloride 0.9% 100 ml @ Titrate IV .Q0M [facility] Rx#:[id number] Oral 425 Output: Urine 2900 700 Estimated Blood Loss 150 Other: Voiding Method Bedpan # Voids 3 8 # Bowel Movements 1 0 - Exam Head normocephalic Neck supple Lungs few scattered wheezes bilaterally with some coarse breath sounds Heart regular rate and rhythm S1-S2, no rub or gallop Abdomen is soft nontender nondistended positive bowel sounds no hepatosplenomegaly Extremities left leg is warm no tenderness with palpation. Dressing at the left groin is clean dry and intact. Patient is able to wiggle her toes. Neuro alert and orientated to 3 - Labs CBC & Chem 7: 05/07/16 07:52 05/07/16 07:52 Labs: Abnormal Lab Results - Last 24 Hours (Table) 05/06/16 05/06/16 05/06/16 Range/Units 16:11 16:16 17:40 WBC (3.8-10.6) k/uL Hgb (11.4-16.0) gm/dL MCH (25.0-35.0) pg MCHC (31.0-37.0) g/dL RDW (11.5-15.5) % Neutrophils # (1.3-7.7) k/uL PT (9.0-12.0) sec APTT 55.2 H (22.0-30.0) sec Carbon Dioxide (22-30) mmol/L BUN (7-17) mg/dL Glucose (74-99) mg/dL POC Glucose (mg/dL) 214 H 299 H (75-99) mg/dL ALT (9-52) U/L Total Protein (6.3-8.2) g/dL Albumin (3.5-5.0) g/dL Crossmatch 05/06/16 05/06/16 05/06/16 Range/Units 20:02 21:57 23:52 WBC (3.8-10.6) k/uL Hgb (11.4-16.0) gm/dL MCH (25.0-35.0) pg MCHC (31.0-37.0) g/dL RDW (11.5-15.5) % Neutrophils # (1.3-7.7) k/uL PT (9.0-12.0) sec APTT (22.0-30.0) sec Carbon Dioxide (22-30) mmol/L BUN (7-17) mg/dL Glucose (74-99) mg/dL POC Glucose (mg/dL) 170 H 166 H 279 H (75-99) mg/dL ALT (9-52) U/L Total Protein (6.3-8.2) g/dL Albumin (3.5-5.0) g/dL Crossmatch 05/07/16 05/07/16 05/07/16 Range/Units 02:01 06:02 07:52 WBC 19.5 H (3.8-10.6) k/uL Hgb 9.9 L (11.4-16.0) gm/dL MCH 23.6 L (25.0-35.0) pg MCHC 28.1 L (31.0-37.0) g/dL RDW 17.3 H (11.5-15.5) % Neutrophils # 17.4 H (1.3-7.7) k/uL PT (9.0-12.0) sec APTT (22.0-30.0) sec Carbon Dioxide (22-30) mmol/L BUN (7-17) mg/dL Glucose (74-99) mg/dL POC Glucose (mg/dL) 180 H 180 H (75-99) mg/dL ALT (9-52) U/L Total Protein (6.3-8.2) g/dL Albumin (3.5-5.0) g/dL Crossmatch 05/07/16 05/07/16 05/07/16 Range/Units 07:52 07:52 07:52 WBC (3.8-10.6) k/uL Hgb (11.4-16.0) gm/dL MCH (25.0-35.0) pg MCHC (31.0-37.0) g/dL RDW (11.5-15.5) % Neutrophils # (1.3-7.7) k/uL PT 12.6 H (9.0-12.0) sec APTT 21.6 L (22.0-30.0) sec Carbon Dioxide 33 H (22-30) mmol/L BUN 40 H (7-17) mg/dL Glucose 259 H (74-99) mg/dL POC Glucose (mg/dL) (75-99) mg/dL ALT 54 H (9-52) U/L Total Protein 6.0 L (6.3-8.2) g/dL Albumin 3.1 L (3.5-5.0) g/dL Crossmatch See Detail 05/07/16 05/07/16 05/07/16 Range/Units 08:00 10:06 12:07 WBC (3.8-10.6) k/uL Hgb (11.4-16.0) gm/dL MCH (25.0-35.0) pg MCHC (31.0-37.0) g/dL RDW (11.5-15.5) % Neutrophils # (1.3-7.7) k/uL PT (9.0-12.0) sec APTT (22.0-30.0) sec Carbon Dioxide (22-30) mmol/L BUN (7-17) mg/dL Glucose (74-99) mg/dL POC Glucose (mg/dL) 264 H 258 H 144 H (75-99) mg/dL ALT (9-52) U/L Total Protein (6.3-8.2) g/dL Albumin (3.5-5.0) g/dL Crossmatch 05/07/16 05/07/16 05/07/16 Range/Units 13:32 14:23 15:05 WBC (3.8-10.6) k/uL Hgb (11.4-16.0) gm/dL MCH (25.0-35.0) pg MCHC (31.0-37.0) g/dL RDW (11.5-15.5) % Neutrophils # (1.3-7.7) k/uL PT (9.0-12.0) sec APTT (22.0-30.0) sec Carbon Dioxide (22-30) mmol/L BUN (7-17) mg/dL Glucose (74-99) mg/dL POC Glucose (mg/dL) 118 H 121 H 135 H (75-99) mg/dL ALT (9-52) U/L Total Protein (6.3-8.2) g/dL Albumin (3.5-5.0) g/dL Crossmatch Assessment and Plan Plan: 1. Left leg ischemia: Status post thrombectomy with Dr. García. 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 Continue IV heparin drip 2. Acute symptomatic anemia secondary to chronic blood loss and suspected lower GI bleed. Patient received 2 unit of PRBCs since admission. She had an EGD last month during her last hospitalization at [facility] that was unremarkable. She was seen and evaluated by gastroenterology. colonoscopy was canceled during this admission. GI service has signed off. The recommending outpatient evaluation in one to 2 weeks with barium enema. 3. Underlying pneumonia with sepsis on presentation: On IV ceftriaxone and azithromycin. 4. Acute COPD exacerbation seen and evaluated by pulmonology. Continue bronchodilator and inhaled steroids. IV steroids were discontinued yesterday 5. Paroxysmal atrial fibrillation on anticoagulation with Coumadin: Currently on hold awaiting further evaluation of underlying anemia. Patient has been having episodes of atrial fibrillation with rapid ventricular response. Evaluated by cardiology. They've added digoxin to her regimen of medications. Appreciate their input. Heart rate controlled 6. 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 Diabetes mellitus insulin-dependent. With hyperglycemia secondary to steroids. continue insulin drip. 9. acute on chronic systolic CHF with exacerbation. Pulmonary started IV Lasix yesterday. Echo shows an EF of 40-45%
[2016-05-07 16:58] LABS: Glucose,Whole Blood 181 mg/dL (75-99)
[2016-05-07] MEDS: HEPARIN SODIUM,PORCINE/D5W PMX 25,000 UNIT in DEXTROSE/WATER 1 500ML.BAG IV SCH (19:25)
[2016-05-07] MEDS: HYDROcodone/APAP 10-325MG 1 EACH TAB PO PRN (21:15)
[2016-05-07] MEDS: MONTELUKAST 10 MG TAB PO SCH (21:16)
[2016-05-07] MEDS: PRAVASTATIN SODIUM 20 MG TAB PO SCH (21:16)
[2016-05-07] MEDS: LOSARTAN 50 MG TAB PO SCH (21:16)
[2016-05-07 21:20] LABS: Glucose,Whole Blood 229 mg/dL (75-99)
[2016-05-07] MEDS: INSULIN DETEMIR 100 UNIT/ML 10 ML VIAL SQ SCH (21:20)
[2016-05-08] MEDS ORDERED: HEPARIN SODIUM,PORCINE 5,000 UNIT/ML 1 ML VIAL IV ONE (01:40)
[2016-05-08] MEDS: HEPARIN SODIUM,PORCINE/D5W PMX 25,000 UNIT in DEXTROSE/WATER 1 500ML.BAG IV SCH (03:33)
--- NOTE | 2016-05-08 07:04 | XR ---
EXAMINATION TYPE: XR chest 1V portable DATE OF EXAM: 05/08/2016 6:35 AM CLINICAL HISTORY: Difficulty breathing and CHF progress study. TECHNIQUE: Single AP portable upright view of the chest is obtained. COMPARISON: Chest x-ray from one day earlier FINDINGS: There is persistent cardiomegaly with atherosclerotic thoracic aorta. There is improving c entral vascular congestion is present. There is new right basilar opacity consistent with developing atelectasis and/or infiltrate. Upper lungs remain clear without pneumothorax. Osseous structures are intact. Stimulator device is redemonstrated overlying the lower thoracic spine. IMPRESSION: New right basilar infiltrate and/or atelectasis noted. There is redemonstration of cardio megaly with improving central vascular congestion however present.
[2016-05-08] MEDS: BUDESONIDE 1 MG/2 ML NEBU INHALATION SCH ×2 (07:34→19:32)
[2016-05-08] MEDS: IPRATROPIUM-ALBUTEROL 3 ML NEB INHALATION SCH ×4 (07:34→19:32)
[2016-05-08 07:52] LABS: Glucose,Whole Blood 283 mg/dL (75-99)
[2016-05-08 08:06] LABS: Anisocytosis Slight; Basophils % (A) 0 %; CH 23.3; CHCM 27.6; Eosinophils % (A) 0 %; HCT 35.1 % (34.0-46.0); HDW 4.05; HGB 9.8 gm/dL (11.4-16.0); Hypochromasia Marked; Luc # (Auto) 0.24; Luc % (Auto) 1; Lymphocytes # (A) 0.8 k/uL (1.0-4.8); Lymphocytes % (A) 4 %; MCH 23.6 pg (25.0-35.0); MCV 84.4 fL (80.0-100.0); Mean Platelet Volume 9.4; Monocytes # (A) 1.1 k/uL (0-1.0); Monocytes % (A) 5 %; Neutrophils # (A) 20.5 k/uL (1.3-7.7); Neutrophils % (A) 90 %; Poikilocytosis Moderate; RBC 4.16 m/uL (3.80-5.40); RDW 16.7 % (11.5-15.5); WBC 22.7 k/uL (3.8-10.6); WBC (Perox) 22.66
[2016-05-08] MEDS: INSULIN LISPRO (humaLOG) 300 UNIT/3 ML VIAL SQ SCH ×3 (08:06→17:16)
[2016-05-08] MEDS: AZITHROMYCIN 500 MG TAB PO SCH (08:09)
[2016-05-08] MEDS: HYDROcodone/APAP 10-325MG 1 EACH TAB PO PRN ×2 (08:09→17:15)
[2016-05-08] MEDS: FUROSEMIDE 10 MG/ML 4 ML VIAL IV SCH ×2 (08:11→21:33)
[2016-05-08] MEDS: DIGOXIN 250 MCG TAB PO SCH (08:11)
[2016-05-08] MEDS: DILTIAZEM CD 240 MG CAP.ER.24H PO SCH (08:11)
[2016-05-08 08:12] LABS: ALT 50 U/L (9-52); AST 29 U/L (14-36); Alkaline Phosphatase 56 U/L (38-126); Anion Gap 10 mmol/L; Blood Urea Nitrogen 45 mg/dL (7-17); Calcium 8.4 mg/dL (8.4-10.2); Carbon Dioxide 32 mmol/L (22-30); Chloride 97 mmol/L (98-107); Glucose 310 mg/dL (74-99); Non-African American GFR(MDRD) >60 (>60 ml/min/1.73 sqM); Sodium 139 mmol/L (137-145); Total Bilirubin 0.5 mg/dL (0.2-1.3); Total Protein 5.9 g/dL (6.3-8.2)
[2016-05-08] MEDS: PANTOPRAZOLE 40 MG/10 ML VIAL IV SCH (08:12)
[2016-05-08] MEDS: METOPROLOL SUCCINATE (ER) 100 MG TAB.ER.24H PO SCH ×2 (08:12→21:34)
[2016-05-08 08:14] LABS: Potassium 5.2 mmol/L (3.5-5.1)
--- NOTE | 2016-05-08 08:21 | OP ---
DATE OF SERVICE: SURGEON: ANETTE BOCANEGRA MD FIRST PRESS OPERATOR: Dr. 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 POSTOPERATIVE DIAGNOSIS: OPERATION: 1. Thrombectomy of the femoral artery, profunda and superficial femoral artery. 2. Endarterectomy of the left common femoral artery and patch angioplasty using bovine patch. ANESTHESIA: Spinal. ESTIMATED BLOOD LOSS: SPECIMENS REMOVED: COMPLICATIONS: OPERATIVE FINDINGS: DESCRIPTION OF PROCEDURE: This patient has history of atrial fibrillation. The patient came in with GI bleed. Her Coumadin was stopped. She developed ischemic left leg. CTA done which showed an occlusion of the common femoral, superficial femoral artery with reconstitution of the infrapopliteal vessels. Patient also has a history of severe COPD, under the care of natural remedy consultant Dr. Pittman. Patient was brought to the operating room. Under anesthesia, left groin was prepped and drapes were placed manner. Transverse incision was made in the left groin deepened through the skin, fat, and fascia. The dissection was carried out. We identified the inguinal ligament and then femoral artery was dissected. There was some posterior plaque noted in the common femoral artery. Then the profunda was dissected and vessel loop was placed around it and superficial femoral artery was dissected and vessel loop was placed around it. There was some plaque formation noted of the common and superficial femoral artery. 8000 systemic heparin was given. Common external iliac, superficial femoral artery and profunda were clamped. Arteriotomy incision was made to the common femoral artery and found to have plaque noted and there was a thrombus present. A #4 Chilo was passed to the superficial femoral artery down to the popliteal and thrombectomy was performed removing a long segment of the thrombus. After that Chilo catheter was passed to the profunda and some clot was removed. There was decent flow noted from the profunda. We passed the catheter through the iliac artery, but no clot was appreciated. After that, we did the endarterectomy of the common femoral artery and superficial femoral artery proximally and plaque was removed. Flushed with heparin and saline. After that, we used a pericardial patch, using 5-0 Prolene and did the patch angioplasty of the common femoral artery and superficial femoral artery. Artery was flushed and profunda was flushed and hemostasis was well controlled. There was good Doppler signal present in the common femoral, profunda and superficial femoral arteries and patient had a Doppler signal for the anterior tibial. Incision was closed in layers using 3-0 Vicryl and skin was closed with 4-0 nylon with mattress interrupted suture. Dressing applied. The patient was transferred to recovery room. The patient will be going to the intensive care unit. Blood loss was 150 mL.
[2016-05-08] MEDS: INSULIN DETEMIR 100 UNIT/ML 10 ML VIAL SQ SCH ×2 (08:24→21:33)
--- NOTE | 2016-05-08 10:15 | P.PN ---
Progress Note - Text no adverse events overnight patient tolerating diet; feels OK AF VSS lungs; crackles left lobe 1/2 way up posteriorly Left leg; groin dressing is C/D/I; FROM left foot, sensation remains intact; monophasic to biphasic anterior tibial pulse; foot is viable Labs; reviewed impression/plan 1. s/p left femoral thromboembolectomy/left common femoral enarterectomy with patch continue IV heparin for now continue supportive care DISCOURAGE use of NOAC in early post-operative period and favor warfarin since it is easier to reverse if patient requires urgent/emergent operative procedure will change dressing in am OT/PT OOB to chair
--- NOTE | 2016-05-08 12:11 | P.PN ---
Subjective Patient is doing well today. No events overnight. She was cleared by vascular surgery to get out of intensive care. Objective - Vital Signs Vital signs: Vital Signs Temp 99.5 F 05/08/16 08:00 Pulse 69 05/08/16 11:35 Resp 20 05/08/16 10:00 BP 130/51 05/08/16 10:00 Pulse Ox 91 L 05/08/16 10:00 Intake & Output 05/07/16 05/08/16 05/08/16 18:59 06:59 18:59 Intake Total 922.08 425.61 303.262 Output Total 1220 1815 635 Balance -297.92 -1389.39 -331.738 Weight 120.2 kg Intake: IV 764 250 140 Sodium Chloride 0.9% 1, 250 40 000 ml @ 20 mls/hr IV . Q24H SHARONDA Rx#:[id number] cefTRIAXone 1,000 mg In 100 Sodium Chloride 0.9% 50 ml @ 100 mls/hr IVPB Q24HR SHARONDA Rx#:[id number] Intake, IV Titration 8.08 175.61 163.262 Amount Heparin Sodium,Porcine/ 175.61 163.262 D5w Pmx 25,000 unit In Dextrose/Water 1 500ml. bag @ 8.5 UNITS/KG/HR 20. 06 mls/hr IV .Q24H SHARONDA Rx #:[id number] Insulin Regular 100 unit 8.08 In Sodium Chloride 0.9% 100 ml @ Titrate IV .Q0M SHARONDA Rx#:[id number] Oral 150 Output: Urine 1070 1815 635 Estimated Blood Loss 150 Other: Voiding Method Bedpan Bedpan Indwelling Catheter - Exam General: The patient is awake and alert, in no distress Eye: there is normal conjunctiva bilaterally. Neck: The neck is supple, there is no JVD. Cardiovascular: Normal S1-S2, no S3-S4, no murmurs. Respiratory: Lungs clear to auscultation bilaterally Gastrointestinal: Abdomen is soft, nontender Musculoskeletal: There is no pedal edema. Neurological:. Speech is normal. Skin: Skin is warm and dry - Labs CBC & Chem 7: 05/08/16 07:24 05/08/16 07:24 Labs: Abnormal Lab Results - Last 24 Hours (Table) 05/07/16 05/07/16 05/07/16 Range/Units 07:52 12:07 13:32 WBC (3.8-10.6) k/uL Hgb (11.4-16.0) gm/dL MCH (25.0-35.0) pg MCHC (31.0-37.0) g/dL RDW (11.5-15.5) % Neutrophils # (1.3-7.7) k/uL Lymphocytes # (1.0-4.8) k/uL Monocytes # (0-1.0) k/uL APTT (22.0-30.0) sec Potassium (3.5-5.1) mmol/L Chloride (98-107) mmol/L Carbon Dioxide (22-30) mmol/L BUN (7-17) mg/dL Glucose (74-99) mg/dL POC Glucose (mg/dL) 144 H 118 H (75-99) mg/dL Total Protein (6.3-8.2) g/dL Albumin (3.5-5.0) g/dL Crossmatch See Detail 05/07/16 05/07/16 05/07/16 Range/Units 14:23 15:05 16:56 WBC (3.8-10.6) k/uL Hgb (11.4-16.0) gm/dL MCH (25.0-35.0) pg MCHC (31.0-37.0) g/dL RDW (11.5-15.5) % Neutrophils # (1.3-7.7) k/uL Lymphocytes # (1.0-4.8) k/uL Monocytes # (0-1.0) k/uL APTT (22.0-30.0) sec Potassium (3.5-5.1) mmol/L Chloride (98-107) mmol/L Carbon Dioxide (22-30) mmol/L BUN (7-17) mg/dL Glucose (74-99) mg/dL POC Glucose (mg/dL) 121 H 135 H 181 H (75-99) mg/dL Total Protein (6.3-8.2) g/dL Albumin (3.5-5.0) g/dL Crossmatch 05/07/16 05/08/16 05/08/16 Range/Units 21:18 00:34 07:24 WBC (3.8-10.6) k/uL Hgb (11.4-16.0) gm/dL MCH (25.0-35.0) pg MCHC (31.0-37.0) g/dL RDW (11.5-15.5) % Neutrophils # (1.3-7.7) k/uL Lymphocytes # (1.0-4.8) k/uL Monocytes # (0-1.0) k/uL APTT 30.1 H (22.0-30.0) sec Potassium 5.2 H (3.5-5.1) mmol/L Chloride 97 L (98-107) mmol/L Carbon Dioxide 32 H (22-30) mmol/L BUN 45 H (7-17) mg/dL Glucose 310 H (74-99) mg/dL POC Glucose (mg/dL) 229 H (75-99) mg/dL Total Protein 5.9 L (6.3-8.2) g/dL Albumin 3.1 L (3.5-5.0) g/dL Crossmatch 05/08/16 05/08/16 05/08/16 Range/Units 07:24 07:24 07:49 WBC 22.7 H (3.8-10.6) k/uL Hgb 9.8 L (11.4-16.0) gm/dL MCH 23.6 L (25.0-35.0) pg MCHC 28.0 L (31.0-37.0) g/dL RDW 16.7 H (11.5-15.5) % Neutrophils # 20.5 H (1.3-7.7) k/uL Lymphocytes # 0.8 L (1.0-4.8) k/uL Monocytes # 1.1 H (0-1.0) k/uL APTT 81.1 H (22.0-30.0) sec Potassium (3.5-5.1) mmol/L Chloride (98-107) mmol/L Carbon Dioxide (22-30) mmol/L BUN (7-17) mg/dL Glucose (74-99) mg/dL POC Glucose (mg/dL) 283 H (75-99) mg/dL Total Protein (6.3-8.2) g/dL Albumin (3.5-5.0) g/dL Crossmatch Assessment and Plan Plan: 1. Left leg ischemia: Status post thrombectomy with Dr. García. 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 IV heparin managed by vascular surgery 2. Acute symptomatic anemia secondary to chronic blood loss and suspected lower GI bleed. Patient received 2 unit of PRBCs since admission. She had an EGD last month during her last hospitalization at [facility] that was unremarkable. She was seen and evaluated by gastroenterology. colonoscopy was canceled during this admission. GI service has signed off. The recommending outpatient evaluation in one to 2 weeks with barium enema. 3. Underlying pneumonia with sepsis on presentation: On IV ceftriaxone and azithromycin. 4. Acute COPD exacerbation seen and evaluated by pulmonology. Continue bronchodilator and inhaled steroids. IV steroids were discontinued yesterday 5. Paroxysmal atrial fibrillation on anticoagulation with Coumadin: Patient has been having episodes of atrial fibrillation with rapid ventricular response. Evaluated by cardiology. They've added digoxin to her regimen of medications. Appreciate their input. Heart rate controlled 6. 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 Diabetes mellitus insulin-dependent. With hyperglycemia secondary to steroids. 9. acute on chronic systolic CHF with exacerbation. Pulmonary started IV Lasix yesterday. Echo shows an EF of 40-45%
[2016-05-08] MEDS: MORPHINE SULFATE 2 MG/ML SYRINGE IVP PRN (12:13)
[2016-05-08] MEDS: SODIUM CHLORIDE 0.9% 1,000 ML IV SCH (12:14)
[2016-05-08 12:24] LABS: Glucose,Whole Blood 265 mg/dL (75-99)
[2016-05-08 16:47] LABS: Glucose,Whole Blood 183 mg/dL (75-99)
--- NOTE | 2016-05-08 18:20 | XR ---
EXAMINATION TYPE: XR chest 1V portable DATE OF EXAM: 05/08/2016 5:35 PM COMPARISON: Prior chest x-ray AP April 2016 at earlier time HISTORY: Shortness of breath TECHNIQUE: Single frontal view of the chest is obtained. FINDINGS: The heart is markedly enlarged, thoracic cord stimulator is stable. No evident pneumothora x. Difficult to exclude retrocardiac density, basilar increased density. Central vascularity appears prominently. IMPRESSION: Similar findings. Cardiomegaly. Probable basilar atelectasis, difficult to exclude pneum onia, effusion. There may be a component of pulmonary venous hypertension and interstitial edema, fol low-up recommended
[2016-05-08] MEDS ORDERED: WARFARIN 5 MG TAB PO ONE (21:00)
[2016-05-08] MEDS ORDERED: ENOXAPARIN 80 MG/0.8 ML SYRINGE SQ SCH (21:00)
[2016-05-08] MEDS ORDERED: ENOXAPARIN 100 MG/ML SYRINGE SQ SCH (21:30)
[2016-05-08] MEDS: LOSARTAN 50 MG TAB PO SCH (21:33)
[2016-05-08] MEDS: MONTELUKAST 10 MG TAB PO SCH (21:34)
[2016-05-08] MEDS: PRAVASTATIN SODIUM 20 MG TAB PO SCH (21:34)
[2016-05-08 21:42] LABS: Glucose,Whole Blood 174 mg/dL (75-99)
[2016-05-08] MEDS: ENOXAPARIN 100 MG/ML SYRINGE SQ SCH (23:09)
[2016-05-09] MEDS: MORPHINE SULFATE 2 MG/ML SYRINGE IVP PRN (00:51)
[2016-05-09 02:01] LABS: Glucose,Whole Blood 122 mg/dL (75-99)
[2016-05-09] MEDS: HYDROcodone/APAP 10-325MG 1 EACH TAB PO PRN (05:13)
[2016-05-09 07:43] LABS: Glucose,Whole Blood 87 mg/dL (75-99)
[2016-05-09] MEDS: BUDESONIDE 1 MG/2 ML NEBU INHALATION SCH ×2 (08:09→20:52)
[2016-05-09] MEDS: IPRATROPIUM-ALBUTEROL 3 ML NEB INHALATION SCH ×4 (08:10→20:52)
[2016-05-09] MEDS: DILTIAZEM CD 240 MG CAP.ER.24H PO SCH (08:29)
[2016-05-09] MEDS: METOPROLOL SUCCINATE (ER) 100 MG TAB.ER.24H PO SCH ×2 (08:29→21:28)
[2016-05-09] MEDS: AZITHROMYCIN 500 MG TAB PO SCH (08:29)
[2016-05-09] MEDS: INSULIN LISPRO (humaLOG) 300 UNIT/3 ML VIAL SQ SCH ×3 (08:30→17:28)
[2016-05-09] MEDS: ENOXAPARIN 100 MG/ML SYRINGE SQ SCH ×2 (08:30→21:27)
[2016-05-09] MEDS: FUROSEMIDE 10 MG/ML 4 ML VIAL IV SCH (08:31)
[2016-05-09] MEDS: DIGOXIN 250 MCG TAB PO SCH (08:31)
[2016-05-09] MEDS: PANTOPRAZOLE 40 MG/10 ML VIAL IV SCH (08:31)
[2016-05-09] MEDS: SODIUM CHLORIDE 0.9% 1,000 ML IV SCH (08:31)
[2016-05-09] MEDS: INSULIN DETEMIR 100 UNIT/ML 10 ML VIAL SQ SCH ×2 (08:40→21:27)
[2016-05-09] MEDS: ACETAMINOPHEN TAB 325 MG TAB PO PRN (08:42)
[2016-05-09 10:08] LABS: ALT 37 U/L (9-52); AST 15 U/L (14-36); Alkaline Phosphatase 54 U/L (38-126); Anion Gap 9 mmol/L; Blood Urea Nitrogen 50 mg/dL (7-17); Calcium 8.4 mg/dL (8.4-10.2); Carbon Dioxide 33 mmol/L (22-30); Chloride 97 mmol/L (98-107); Glucose 180 mg/dL (74-99); Non-African American GFR(MDRD) >60 (>60 ml/min/1.73 sqM); Potassium 4.3 mmol/L (3.5-5.1); Sodium 139 mmol/L (137-145); Total Bilirubin 0.5 mg/dL (0.2-1.3); Total Protein 5.5 g/dL (6.3-8.2)
[2016-05-09 10:14] LABS: INR 1.2 (<1.1); Prothrombin Time 11.6 sec (9.0-12.0)
[2016-05-09 10:21] LABS: Anisocytosis Slight; Basophils % (A) 0 %; CH 23.7; CHCM 27.8; Eosinophils % (A) 0 %; HDW 3.69; HGB 9.2 gm/dL (11.4-16.0); Hypochromasia Marked; Luc # (Auto) 0.26; Luc % (Auto) 1; Lymphocytes % (A) 5 %; MCH 23.8 pg (25.0-35.0); MCV 85.1 fL (80.0-100.0); Mean Platelet Volume 9.5; Monocytes # (A) 0.9 k/uL (0-1.0); Monocytes % (A) 4 %; Neutrophils # (A) 17.2 k/uL (1.3-7.7); Neutrophils % (A) 89 %; Poikilocytosis Slight; RBC 3.88 m/uL (3.80-5.40); RDW 17.2 % (11.5-15.5); WBC 19.3 k/uL (3.8-10.6); WBC (Perox) 19.82
--- NOTE | 2016-05-09 10:42 | P.PN ---
Progress Note - Text complaints of pain at incision site; feels that breathing is improving AF VSS EXTR; left groin incision is clean without evidence of hematoma or infection biphasic anterior tibial signal noted; foot is viable; FROM impression/plan 1. s/p left femoral embolectomy stable from vascular surgery standpoint continue current medical regimen following
--- NOTE | 2016-05-09 10:55 | PN ---
DATE OF SERVICE: 05/08/2016 Ms. Maria De Jesus Bui is seen evaluated, examined on the 4th floor. Clinically, patient is doing well. She is status post left lower extremity thrombectomy, tolerated the surgery well. Her respiratory status is better. No evidence of GI bleed is seen. Patient remains on heparin drip. She is tolerating p.o. well. Mild degree of pain is present, but is manageable with current medications. Her last set of vitals include blood pressure is 134/76, respiratory rate 20, pulse 78, temperature 98, saturation of 90% on 4L oxygen. HEENT: Unremarkable. NECK: Supple. LUNGS: Good air entry bilaterally without significant rales, rhonchi or rub. HEART: Regular rate and rhythm. S1 and S2 audible. ABDOMEN: Soft. No rebound or rigidity. EXTREMITIES: +1. NEUROLOGICAL: Otherwise, awake and alert. Nice, warm left lower extremity is noted with pulses. The labs are reviewed. X-rays revealed basal subsegmental atelectasis. Interstitial edema is seen; however, is somewhat improved compared to prior exam. X-ray was performed today. Other laboratory data reviewed as well. The white cell count is 22,700, hemoglobin 9.8, hematocrit is 35, which remains stable, platelet count 203,000. PTT is 38. Sodium 139, potassium 5.2. BUN and creatinine 45 and 0.7. The rest of the chemistry is within normal limits. Current medications reviewed and include: 1. Tylenol as needed along with 2. Hydrocodone. 3. DuoNeb unit dose updraft 4 times a day. 4. Xanax as needed. 5. Zithromax 500 mg daily. 6. Pulmicort 2 times a day 1 mg. 7. Rocephin 1 g daily. 8. Digoxin 250 mcg. 9. Cardizem 240 mg daily. 10. Lasix 40 mg IV q.12. 11. Guaifenesin subcu. 12. Heparin drip as per protocol. 13. Also on Levemir. 14. Sliding scale insulin. 15. Losartan. 16. Toprol. 17. K-Mag-Phos replacement protocol. 18. Singulair as well. IMPRESSION: 1. Pneumonia. 2. Acute thrombosis of the left lower extremity requiring thrombectomy, postoperative day #1, doing well. 3. Severe chronic obstructive pulmonary disease. 4. Gastrointestinal bleed; however, patient's hemoglobin has been stable, even on heparin drip. 5. Chronic atrial fibrillation. Patient is currently on heparin. Once relatively more stable, will initiate Coumadin. Colonoscopy is being planned on an outpatient basis. 6. Other issues include diabetes mellitus. Patient is tolerating p.o. well. Sugars are relatively more stable. 7. Acute on chronic hypoxic respiratory failure secondary to multifactorial process. Continue gentle diuresis. Monitor renal function closely. 8. Continue to maintain patient on potassium, magnesium, phosphorus replacement protocol.
[2016-05-09 11:37] LABS: Glucose,Whole Blood 282 mg/dL (75-99)
[2016-05-09] MEDS ORDERED: HYDROcodone/APAP 10-325MG 1 EACH TAB PO PRN (13:07)
--- NOTE | 2016-05-09 13:09 | P.PN ---
Subjective Patient IV came out last night and multiple nurses have as well as anesthesia a 2 acute and new IV in her. She is doing well otherwise. Objective - Vital Signs Vital signs: Vital Signs Temp 96.8 F L 05/09/16 07:00 Pulse 76 05/09/16 11:18 Resp 16 05/09/16 08:00 BP 138/58 05/09/16 07:00 Pulse Ox 88 L 05/09/16 07:00 Intake & Output 05/08/16 05/09/16 05/09/16 18:59 06:59 18:59 Intake Total 451.131 Output Total 1010 Balance -558.869 Weight 112 kg Intake: IV 130 Sodium Chloride 0.9% 1, 80 000 ml @ 20 mls/hr IV . Q24H SHARONDA Rx#:[id number] cefTRIAXone 1,000 mg In 50 Sodium Chloride 0.9% 50 ml @ 100 mls/hr IVPB Q24HR SHARONDA Rx#:[id number] Intake, IV Titration 321.131 Amount Heparin Sodium,Porcine/ 321.131 D5w Pmx 25,000 unit In Dextrose/Water 1 500ml. bag @ 8.5 UNITS/KG/HR 20. 06 mls/hr IV .Q24H SHARONDA Rx #:[id number] Output: Urine 1010 Other: Voiding Method Indwelling Catheter Bedpan # Voids 1 3 - Exam General: The patient is awake and alert, in no distress Eye: there is normal conjunctiva bilaterally. Neck: The neck is supple, there is no JVD. Cardiovascular: Normal S1-S2, no S3-S4, no murmurs. Respiratory: Lungs with diffuse rhonchi and rales Gastrointestinal: Abdomen is soft, nontender Musculoskeletal: There is no pedal edema. Neurological:. Speech is normal. Skin: Skin is warm and dry - Labs CBC & Chem 7: 05/09/16 09:35 05/09/16 09:35 Labs: Abnormal Lab Results - Last 24 Hours (Table) 05/08/16 05/08/16 05/08/16 Range/Units 15:29 16:45 21:14 WBC (3.8-10.6) k/uL Hgb (11.4-16.0) gm/dL Hct (34.0-46.0) % MCH (25.0-35.0) pg MCHC (31.0-37.0) g/dL RDW (11.5-15.5) % Neutrophils # (1.3-7.7) k/uL APTT 38.4 H (22.0-30.0) sec Chloride (98-107) mmol/L Carbon Dioxide (22-30) mmol/L BUN (7-17) mg/dL Glucose (74-99) mg/dL POC Glucose (mg/dL) 183 H 174 H (75-99) mg/dL Total Protein (6.3-8.2) g/dL Albumin (3.5-5.0) g/dL 05/09/16 05/09/16 05/09/16 Range/Units 01:59 09:35 09:35 WBC 19.3 H (3.8-10.6) k/uL Hgb 9.2 L (11.4-16.0) gm/dL Hct 33.0 L (34.0-46.0) % MCH 23.8 L (25.0-35.0) pg MCHC 28.0 L (31.0-37.0) g/dL RDW 17.2 H (11.5-15.5) % Neutrophils # 17.2 H (1.3-7.7) k/uL APTT (22.0-30.0) sec Chloride 97 L (98-107) mmol/L Carbon Dioxide 33 H (22-30) mmol/L BUN 50 H (7-17) mg/dL Glucose 180 H (74-99) mg/dL POC Glucose (mg/dL) 122 H (75-99) mg/dL Total Protein 5.5 L (6.3-8.2) g/dL Albumin 2.8 L (3.5-5.0) g/dL 05/09/16 Range/Units 11:30 WBC (3.8-10.6) k/uL Hgb (11.4-16.0) gm/dL Hct (34.0-46.0) % MCH (25.0-35.0) pg MCHC (31.0-37.0) g/dL RDW (11.5-15.5) % Neutrophils # (1.3-7.7) k/uL APTT (22.0-30.0) sec Chloride (98-107) mmol/L Carbon Dioxide (22-30) mmol/L BUN (7-17) mg/dL Glucose (74-99) mg/dL POC Glucose (mg/dL) 282 H (75-99) mg/dL Total Protein (6.3-8.2) g/dL Albumin (3.5-5.0) g/dL Assessment and Plan Plan: 1. Left leg ischemia: Status post thrombectomy with Dr. García. 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 2. Acute symptomatic anemia secondary to chronic blood loss and suspected lower GI bleed. Patient received 2 unit of PRBCs since admission. She had an EGD last month during her last hospitalization at [facility] that was unremarkable. She was seen and evaluated by gastroenterology. colonoscopy was canceled during this admission. GI service has signed off. The recommending outpatient evaluation in one to 2 weeks with barium enema. 3. Underlying pneumonia with sepsis on presentation: Finished 8 days course of antibiotic with ceftriaxone and azithromycin 4. Acute COPD exacerbation seen and evaluated by pulmonology. Continue bronchodilator and inhaled steroids. IV steroids were discontinued yesterday 5. Paroxysmal atrial fibrillation on anticoagulation with Coumadin and bridging with Lovenox. Patient has been having episodes of atrial fibrillation with rapid ventricular response. Evaluated by cardiology. They've added digoxin to her regimen of medications. Heart rate controlled 6. 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 Diabetes mellitus insulin-dependent. With hyperglycemia secondary to steroids. 9. acute on chronic systolic CHF with exacerbation. Echo shows an EF of 40-45 % Switch IV Lasix and IV Protonix to oral. Increased [place] frequency to every 6 hours for better control of chronic low back pain. Encouraged ambulation with assistance. Incentive spirometer at bedside.
[2016-05-09] MEDS: predniSONE 20 MG TAB PO SCH (14:53)
[2016-05-09 16:48] LABS: Glucose,Whole Blood 191 mg/dL (75-99)
[2016-05-09] MEDS ORDERED: WARFARIN 5 MG TAB PO SCH (18:00)
[2016-05-09 21:20] LABS: Glucose,Whole Blood 213 mg/dL (75-99)
[2016-05-09] MEDS: PRAVASTATIN SODIUM 20 MG TAB PO SCH (21:28)
[2016-05-09] MEDS: LOSARTAN 50 MG TAB PO SCH (21:28)
[2016-05-09] MEDS: MONTELUKAST 10 MG TAB PO SCH (21:28)
[2016-05-10 06:59] LABS: Glucose,Whole Blood 133 mg/dL (75-99)
[2016-05-10] MEDS: IPRATROPIUM-ALBUTEROL 3 ML NEB INHALATION SCH ×4 (07:50→19:45)
[2016-05-10] MEDS: BUDESONIDE 1 MG/2 ML NEBU INHALATION SCH ×2 (07:50→19:46)
[2016-05-10] MEDS: PANTOPRAZOLE 40 MG TABLET PO SCH (08:02)
[2016-05-10] MEDS: HYDROcodone/APAP 10-325MG 1 EACH TAB PO PRN ×3 (08:02→20:35)
[2016-05-10] MEDS: ENOXAPARIN 100 MG/ML SYRINGE SQ SCH ×2 (08:03→20:37)
[2016-05-10] MEDS: METOPROLOL SUCCINATE (ER) 100 MG TAB.ER.24H PO SCH ×2 (08:03→20:37)
[2016-05-10] MEDS: DILTIAZEM CD 240 MG CAP.ER.24H PO SCH (08:03)
[2016-05-10] MEDS: DIGOXIN 250 MCG TAB PO SCH (08:03)
[2016-05-10] MEDS: FUROSEMIDE 40 MG TAB PO SCH (08:03)
[2016-05-10] MEDS: predniSONE 20 MG TAB PO SCH (08:03)
[2016-05-10] MEDS: INSULIN LISPRO (humaLOG) 300 UNIT/3 ML VIAL SQ SCH ×3 (08:25→17:54)
[2016-05-10] MEDS: INSULIN DETEMIR 100 UNIT/ML 10 ML VIAL SQ SCH ×2 (08:27→21:33)
--- NOTE | 2016-05-10 08:49 | PN ---
Maria De Jesus Bui is seen, evaluated, evaluated, examined. Clinically patient is doing well. She is postoperative day number two of left femoral artery surgery for left leg ischemia status post thrombectomy with Dr. García and endarterectomy. Clinically patient is doing well, awake and alert, breathing comfortably, mild pain is present. Patient also being treated for pneumonia as well as chronic obstructive pulmonary disease exacerbation. Other issues include paroxysmal atrial fibrillation has been better under control now. Her last set of vitals include blood pressure is 132/68, respiratory rate 18, pulse 81, temperature 98.7, pulse ox 92% on 4 liters oxygen. HEENT: Unremarkable. NECK: Supple. LUNGS: Good air entry bilaterally. A few crackles at bases cannot be excluded. HEART: Regular rate and rhythm. ABDOMEN: Soft. NEUROLOGICAL EXAMINATION: Awake and alert. Chest x-ray 05/08/2016 reviewed, basal atelectasis versus pneumonia cannot be excluded. Other laboratory data reviewed. White cell count 19,300, hemoglobin 9, hematocrit 33. Platelet count 198,000. Sodium ( ), potassium 4.3. BUN and creatinine 15 and 0.9. Current medications reviewed and include: 1. Tylenol with Codeine. 2. DuoNeb. 3. Xanax. 4. Pulmicort. 5. Lanoxin. 6. Cardizem. 7. Lovenox 100 mg q.12. 8. Lasix. 9. Guaifenesin. 10. Sliding scale insulin. 11. Losartan. 12. K-Mag-Phos replacement protocol. 13. Patient is on prednisone as well, just changed to 40. 14. Along with Coumadin is just being started. IMPRESSION: 1. Thrombosis of the left superficial femoral artery status post endarterectomy and thrombectomy. 2. Severe chronic obstructive pulmonary disease. 3. Paroxysmal atrial fibrillation. 4. Right lower lobe pneumonia. 5. Leukocytosis. 6. Prerenal azotemia and leukocytosis likely may be related to steroids with stress for ongoing issues. Would recommend a quick taper of the steroids. Continue other supportive care. Follow clinical course closely. Increase activity as tolerated. Jes with anticoagulation. Will follow.
[2016-05-10 10:25] LABS: Anisocytosis Slight; Basophils # (A) 0.1 k/uL (0-0.2); Basophils % (A) 1 %; CH 23.7; CHCM 27.8; Eosinophils % (A) 0 %; HDW 3.67; HGB 8.9 gm/dL (11.4-16.0); Hypochromasia Marked; Luc # (Auto) 0.27; Luc % (Auto) 1; Lymphocytes # (A) 1.2 k/uL (1.0-4.8); Lymphocytes % (A) 6 %; MCH 23.8 pg (25.0-35.0); Mean Platelet Volume 9.5; Monocytes # (A) 0.8 k/uL (0-1.0); Monocytes % (A) 4 %; Neutrophils # (A) 17.6 k/uL (1.3-7.7); Neutrophils % (A) 88 %; Poikilocytosis Slight; RBC 3.77 m/uL (3.80-5.40); RDW 17.3 % (11.5-15.5); WBC (Perox) 21.44
[2016-05-10 10:42] LABS: INR 1.6 (<1.1); Prothrombin Time 15.7 sec (9.0-12.0)
[2016-05-10] MEDS: SODIUM CHLORIDE 0.9% 1,000 ML IV SCH (10:45)
--- NOTE | 2016-05-10 10:45 | P.PN ---
Subjective This is a 76-year-old female patient evaluated and examined today on the fourth floor Patient initially had a hemoglobin of 6.1 and an INR of 2.0 lactic acid of 3.3 at [facility], the patient was then transferred to [facility]. Initial labs upon arrival were hemoglobin of 6.6, INR of 1.9 , and a lactic acid of 2.2. The patient stated she had been having some subjective fevers at home with chills and intermittent nonproductive cough with shortness of breath. Since being here [facility] the patient has received 2 units of packed red blood cells. The patient has never showed any evidence of an active bleed. Patient's colonoscopy has been postponed related to an incomplete bowel prep last week. The patient since then also developed ischemic vascular changes to her left lower extremity last Tuesday secondary to her peripheral artery disease and she has a left femoral artery occlusion. Patient underwent a thrombectomy on Tuesday and is recovering well. Upon evaluation today the patient is resting up in bed in no distress. The patient is currently using 3 L of oxygen, she states she does have a productive cough with clear to white sputum. Patient states that the [employer] (MM)rafts seem to be helping her significantly. The patient does have a diagnosis of obstructive sleep apnea and family has brought in her home BiPAP machine. Patient is using her incentive spirometer and pulling volumes of 1250. She is also utilizing her flutter valve. Objective - Vital Signs Vital signs: Vital Signs Temp 97.9 F 05/10/16 07:00 Pulse 60 05/10/16 08:04 Resp 20 05/10/16 07:00 BP 150/67 05/10/16 07:00 Pulse Ox 91 L 05/10/16 07:00 Intake & Output 05/09/16 05/10/16 05/10/16 18:59 06:59 18:59 Weight 111.5 kg Other: Voiding Method Bedpan # Voids 1 - Exam GENERAL EXAM: Alert, active, comfortable in no apparent distress. HEAD: Normocephalic. EYES: Normal reaction of pupils, equal size. NOSE: Clear with pink turbinates. THROAT: No erythema or exudates. NECK: No masses, no JVD. CHEST: No chest wall deformity. LUNGS: Lungs noted to the course. Wheezes noted bilaterally on inspiration and expiration. CVS: S1 and S2 normal with no audible mumurs, regular rhythm. ABDOMEN: No hepatosplenomegaly, normal bowel sounds, no guarding or rigidity. EXTREMITIES: No edema noted, pedal pulses palpable. SKIN: No rashes CENTRAL NERVOUS SYSTEM: No focal deficits, tone is normal in all 4 extremities. - Labs CBC & Chem 7: 05/10/16 08:44 05/09/16 09:35 Labs: Abnormal Lab Results - Last 24 Hours (Table) 05/09/16 05/09/16 05/09/16 Range/Units 11:30 16:44 21:16 WBC (3.8-10.6) k/uL RBC (3.80-5.40) m/uL Hgb (11.4-16.0) gm/dL Hct (34.0-46.0) % MCH (25.0-35.0) pg MCHC (31.0-37.0) g/dL RDW (11.5-15.5) % Neutrophils # (1.3-7.7) k/uL POC Glucose (mg/dL) 282 H 191 H 213 H (75-99) mg/dL 05/10/16 05/10/16 Range/Units 06:57 08:44 WBC 20.0 H (3.8-10.6) k/uL RBC 3.77 L (3.80-5.40) m/uL Hgb 8.9 L (11.4-16.0) gm/dL Hct 32.0 L (34.0-46.0) % MCH 23.8 L (25.0-35.0) pg MCHC 28.0 L (31.0-37.0) g/dL RDW 17.3 H (11.5-15.5) % Neutrophils # 17.6 H (1.3-7.7) k/uL POC Glucose (mg/dL) 133 H (75-99) mg/dL Assessment and Plan Plan: Assessment GI bleed Symptomatic Anemia Acute blood loss anemia Lactic acidosis sepsis Elevated INR Acute exacerbation of COPD Obesity History of chronic moderate persistent asthma Diabetes mellitus Obstructive sleep apnea Ischemic left leg Plan Medications have been reviewed and we will continue with current treatment. Chest x-ray is reviewed and remain relatively unchanged and stable. Patient to use home BiPAP at night. Continue with current nebulizer treatments. Continue to monitor for any active bleeding. Continue to monitor any vascular changes 2 left leg. Patient will undergo a colonoscopy possibly outpatient. We will continue to monitor labs and adjust treatment as necessary. I performed an examination of the patient and discussed their management with the nurse practitioner. I have reviewed the nurse practitioner's note and agree with the documented findings and plan of care.
--- NOTE | 2016-05-10 11:38 | P.PN ---
Subjective Patient presented with generalized weakness and shortness of breath. She is being treated for pneumonia with sepsis. On IV antibiotics. She also was anemic with stool in the outpatient setting positive for Hemoccult blood. She was initially scheduled for colonoscopy today. However patient stools are still not clear. Also she has been tachycardic at times the heart rate all into the 150s. Medications have been adjusted. Albuterol was discontinued and patient was placed on Xopenex. Restarted her home dose of the metoprolol 200 mg twice a day. Pulmonary service gave patient a dose of IV Lasix. There was some evidence of fluid overload which may have contributed to her tachycardia as well. Chest x-ray shows bilateral infiltrate and pleural effusion. Correlate for CHF versus pneumonia. 04/30/2016 patient was scheduled for colonoscopy today. However due to her worsening respiratory status and poor bowel prep colonoscopy is again canceled. It is technically scheduled for tomorrow. Patient has had some shortness of breath and more congestion in the lungs sounds like fluid overload. a dose of IV Lasix has been ordered. Yesterday she is also been complaining of left leg pain Doppler was negative for DVT. Patient evaluated by cardiology. They have added digoxin to help with better rate control. Patient denies any chest pain. Not reporting any significant shortness of breath. However now she is requiring 4 L of oxygen satting at 96%. Denies any nausea or vomiting. Denies any difficulty urinating. 05/03/2016 patient is still not been able to have her colonoscopy. She's found have evidence of ischemia of the left leg with occlusion of the left femoral artery. She is currently on IV heparin and followed by vascular surgery. Patient is also been followed by GI service in regards to her anemia. Hemoglobin 9.3. Patient reports having shortness of breath still requiring about 5 L nasal cannula. She did receive another dose of IV Lasix yesterday for some fluid overload. Patient denies any chest pain. Denies any nausea or vomiting. Denies any difficulty with urinating. 05/06/2016 patient reports that her breathing has shown improvement. She is down to 3 L nasal cannula satting at 92%. She denies any chest pain. Denies any nausea or vomiting. Reports having bowel movements. Denies any difficulty urinating. She reports still having some left leg pain 05/07/2016 patient is seen and examined in the ICU after her thrombectomy to the left leg. Patient tolerated surgery well. She is resting comfortably. She is arousable. Reports no pain. Denies any chest pain or shortness of breath. Denies any nausea or vomiting. 05/10/2016 patient lying in bed comfortably. Patient reports that her breathing is better. Her left leg pain has also shown improvement after the thrombectomy. Awaiting her INR to be therapeutic. She denies any chest pain or shortness of breath. She did have a bowel movement yesterday. Denies any difficulty urinating. Objective - Vital Signs Vital signs: Vital Signs Temp 97.9 F 05/10/16 07:00 Pulse 60 05/10/16 08:04 Resp 20 05/10/16 07:00 BP 150/67 05/10/16 07:00 Pulse Ox 91 L 05/10/16 07:00 Intake & Output 05/09/16 05/10/16 05/10/16 18:59 06:59 18:59 Weight 111.5 kg Other: Voiding Method Bedpan # Voids 1 - Exam Head normocephalic Neck supple Lungs few scattered wheezes bilaterally with some coarse breath sounds Heart regular rate and rhythm S1-S2, no rub or gallop Abdomen is soft nontender nondistended positive bowel sounds no hepatosplenomegaly Extremities left leg is warm mild tenderness with palpation. Dressing at the left groin is clean dry and intact. Neuro alert and orientated to 3 - Labs CBC & Chem 7: 05/10/16 08:44 05/09/16 09:35 Labs: Abnormal Lab Results - Last 24 Hours (Table) 05/09/16 05/09/16 05/09/16 Range/Units 11:30 16:44 21:16 WBC (3.8-10.6) k/uL RBC (3.80-5.40) m/uL Hgb (11.4-16.0) gm/dL Hct (34.0-46.0) % MCH (25.0-35.0) pg MCHC (31.0-37.0) g/dL RDW (11.5-15.5) % Neutrophils # (1.3-7.7) k/uL PT (9.0-12.0) sec POC Glucose (mg/dL) 282 H 191 H 213 H (75-99) mg/dL 05/10/16 05/10/16 05/10/16 Range/Units 06:57 08:44 08:44 WBC 20.0 H (3.8-10.6) k/uL RBC 3.77 L (3.80-5.40) m/uL Hgb 8.9 L (11.4-16.0) gm/dL Hct 32.0 L (34.0-46.0) % MCH 23.8 L (25.0-35.0) pg MCHC 28.0 L (31.0-37.0) g/dL RDW 17.3 H (11.5-15.5) % Neutrophils # 17.6 H (1.3-7.7) k/uL PT 15.7 H (9.0-12.0) sec POC Glucose (mg/dL) 133 H (75-99) mg/dL Assessment and Plan Plan: 1. Left leg ischemia: Status post thrombectomy with Dr. García. 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 Patient currently on Lovenox 100 mg subcu every 12 hours until INR is therapeutic. INR is 1.6. She will receive Coumadin 7.5 mg tonight. IV heparin was discontinued the other day due to her IV falling out. 2. Acute symptomatic anemia secondary to chronic blood loss and suspected lower GI bleed. Patient received 2 unit of PRBCs since admission. She had an EGD last month during her last hospitalization at [facility] that was unremarkable. She was seen and evaluated by gastroenterology. colonoscopy was canceled during this admission. GI service has signed off. The recommending outpatient evaluation in one to 2 weeks with barium enema. 3. Underlying pneumonia with sepsis on presentation: Completed antibiotic treatment during this admission 4. Acute COPD exacerbation seen and evaluated by pulmonology. Continue bronchodilator and inhaled steroids. Continue oral prednisone 5. Paroxysmal atrial fibrillation on anticoagulation with Coumadin: Patient has been having episodes of atrial fibrillation with rapid ventricular response. Evaluated by cardiology. They've added digoxin to her regimen of medications. Appreciate their input. Heart rate controlled 6. 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 Diabetes mellitus insulin-dependent. Continue the Levemir and scheduled NovoLog. Continue sliding scale coverage. Continue to monitor 9. acute on chronic systolic CHF with exacerbation. Echo shows an EF of 40-45 %. Continue the oral Lasix 40 mg by mouth daily. 10. Medical debility. Continue physical therapy and occupational therapy. Consult Dr. Rosas for possible inpatient rehab. Patient most likely will need placement after discharge
[2016-05-10 12:15] LABS: Glucose,Whole Blood 220 mg/dL (75-99)
--- NOTE | 2016-05-10 12:51 | P.PN ---
Progress Note - Text 76 old white female, patient is post left femoral-popliteal thrombectomy and patch angioplasty patient has history of COPD atrial fibrillation she is on Lovenox and Coumadin INR is not therapeutic discussed with medicine to increase the Coumadin when INR is therapeutic and patient is stable from a vascular point of view her incision site is healing good and has a decent circulation in the left leg patient will be going to the [place] [facility] and we will follow in my office
--- NOTE | 2016-05-10 13:36 | P.CONS ---
History of Present Illness - Chief Complaint Medical debility - History of Present Illness I had the opportunity to see patient for inpatient rehab consultation with regard to medical debility. She was admitted to [facility] April 27 with anemia and possible GI bleed as well as shortness of breath and possible pneumonia. Seen by pulmonary for the pneumonia and shortness of breath. Seen by vascular surgery for left leg discomfort. Did undergo left femoral thrombectomy May 07 , Dr. García. Workup still ongoing with regard to the GI bleed. Patient reports colonoscopy may be upcoming. PT and OT ordered. OT reports total assistance for toileting and moderate assistance for toileting mobility. Note serial chest x-rays followed and most recent x-ray demonstrates cardiomegaly and at least atelectasis. Previous functional history, as elicited from patient incredibly by son: 76-year -old right-handed white female who is a recent lives in a first-floor with 3 floor home. One of her sons does live with her and does the cooking and laundry. The kids share the driving. Patient has a history smoking but doesn' t smoke or drink currently. Describes independent with own sitdown shower and mobility with 4 wheeled walker. Review of Systems Review of systems: ENT: Denies sneezes or discharge. Eyes: Denies discharge or photophobia. Cardiac: Denies chest pain or palpitation. Pulmonary: Moderate shortness of breath with my exam. Breast: Denies discharge or lumps. Gastrointestinal: Denies nausea, emesis, constipation, diarrhea. Genitourinary: Denies discharge or frequency. Musculoskeletal: Some discomfort in left leg related to recent surgery. Neurologic: At least mild generalized weakness. Endocrine: Denies shakes or sweats. Oncology: Denies cancers. Dermatologic: Denies rash, itching, pruritus. ALLERGY/immunology: Denies sneezes, rashes. Past Medical History Past Medical History: Asthma, Heart Failure, CVA/TIA, Diabetes Mellitus, Hyperlipidemia, Hypertension Additional Past Medical History / Comment(s): Afib. melanoma x 2. pain stimulator in L. hip. [place] History of Any Multi-Drug Resistant Organisms: None Reported Past Surgical History: Back Surgery, Hysterectomy Additional Past Surgical History / Comment(s): cyst removed from breast Past Anesthesia/Blood Transfusion Reactions: No Reported Reaction Past Psychological History: No Psychological Hx Reported Smoking Status: Current every day smoker Past Alcohol Use History: None Reported Past Drug Use History: None Reported Medications and Allergies Home Medications Medication Instructions Recorded Confirmed Type ALPRAZolam [Xanax] 0.25 mg PO BID 04/27/16 04/27/16 History Albuterol Nebulized [Ventolin 2.5 mg INHALATION RT-QID 04/27/16 04/27/16 History Nebulized] Diltiazem Cd [Cardizem Cd] 240 mg PO DAILY 04/27/16 04/27/16 History Furosemide [Lasix] 20 mg PO PC-LUNCH 04/27/16 04/27/16 History Furosemide [Lasix] 40 mg PO DAILY 04/27/16 04/27/16 History Hydrocodone/Acetaminophen [[place] 1 tab PO BID PRN 04/27/16 04/27/16 History 10-325] Insulin Aspart [NovoLOG] 14 unit SQ AC-SUPPER 04/27/16 04/27/16 History Insulin Aspart [NovoLOG] 18 unit SQ AC-BID@0900,1300 04/27/16 04/27/16 History Insulin Detemir [Levemir] 23 unit SQ HS 04/27/16 04/27/16 History Insulin Detemir [Levemir] 53 unit SQ DAILY@0900 04/27/16 04/27/16 History Losartan Potassium [Cozaar] 50 mg PO HS 04/27/16 04/27/16 History Metoprolol Succinate [Toprol XL] 200 mg PO BID 04/27/16 04/27/16 History Montelukast Sodium [Singulair] 10 mg PO HS 04/27/16 04/27/16 History Pravastatin Sodium [Pravachol] 20 mg PO HS 04/27/16 04/27/16 History Warfarin Sodium [Coumadin] 2 mg PO HS 04/27/16 04/27/16 History Allergies Allergy/AdvReac Type Severity Reaction Status Date / Time Penicillins Allergy Rash/Hives Verified 04/27/16 01:09 Physical Exam Vitals: Vital Signs Temp Pulse Pulse Resp BP Pulse Ox 05/10/16 12:10 60 05/10/16 11:56 60 05/10/16 08:04 60 05/10/16 07:50 56 L 05/10/16 07:00 97.9 F 67 20 150/67 91 L 05/10/16 00:00 81 18 05/09/16 23:00 98.4 F 79 20 163/62 94 L 05/09/16 21:02 86 05/09/16 20:52 84 05/09/16 16:00 18 05/09/16 15:20 80 05/09/16 15:07 78 05/09/16 15:02 98.5 F 81 18 132/64 92 L Intake and Output 05/09/16 05/10/16 05/10/16 22:59 06:59 14:59 Other: Voiding Method Bedpan # Voids 1 Weight 111.5 kg Skin: Good color, texture, turgor. General: Obese and comfortable appearance when sitting still. Head: Normocephalic, atraumatic. Eyes: Symmetric. Pupils equal round. Ears: Symmetric. Hearing within normal limits. Mouth: Clear. Neck: Supple. Carotid without bruit. Cardiac: Regular rate and rhythm. Lungs: Clear anteriorly and posteriorly. Abdomen: Soft active nontender obese. Extremities: Normal tone. Overweight. Did not examine surgical scar closely is being followed by surgeon. Neurological: Mental status: Alert, cooperative, pleasant. Cranial nerves: Symmetric facial tone and trapezius. Motor: Active movement all 4 limbs but definitely less than antigravity left leg. Sensation: Intact throughout. DTRs: Symmetric and equal throughout. Mobility: Patient examined in Miguelina chair. I am unable to stand her up on my own , her but remained on the chair. Despite this, this activity caused shortness of breath. Nurse was made aware. Results CBC & Chem 7: 05/10/16 08:44 05/09/16 09:35 Labs: Abnormal Lab Results - Last 24 Hours (Table) 05/09/16 05/09/16 05/10/16 Range/Units 16:44 21:16 06:57 WBC (3.8-10.6) k/uL RBC (3.80-5.40) m/uL Hgb (11.4-16.0) gm/dL Hct (34.0-46.0) % MCH (25.0-35.0) pg MCHC (31.0-37.0) g/dL RDW (11.5-15.5) % Neutrophils # (1.3-7.7) k/uL PT (9.0-12.0) sec POC Glucose (mg/dL) 191 H 213 H 133 H (75-99) mg/dL 05/10/16 05/10/16 05/10/16 Range/Units 08:44 08:44 12:13 WBC 20.0 H (3.8-10.6) k/uL RBC 3.77 L (3.80-5.40) m/uL Hgb 8.9 L (11.4-16.0) gm/dL Hct 32.0 L (34.0-46.0) % MCH 23.8 L (25.0-35.0) pg MCHC 28.0 L (31.0-37.0) g/dL RDW 17.3 H (11.5-15.5) % Neutrophils # 17.6 H (1.3-7.7) k/uL PT 15.7 H (9.0-12.0) sec POC Glucose (mg/dL) 220 H (75-99) mg/dL Chest x-ray: report reviewed (Cardiomegaly and at least atelectasis.) Assessment and Plan (1) Ischemia of left lower extremity Status: Acute Plan: Impression: 1. Medical debility, multifactorial. 2. Left leg claudication, status post left femoral thrombectomy. 3. COPD. 4. GI bleeding with anemia. 5. Possible pneumonia. 6. Obese. 7. History asthma. 8. Diabetes. 9. Hypertension. 10. History of stroke. 11. Hyperlipidemia. 12. History of CHF. Comments and plan: At this time physical and occupational therapy are ordered. We'll follow therapy benefit with yourself. Endurance currently appears to be quite limited and unsure would be able tolerate a full rehab program, currently.
[2016-05-10 17:04] LABS: Glucose,Whole Blood 273 mg/dL (75-99)
[2016-05-10] MEDS ORDERED: WARFARIN 7.5 MG TAB PO ONE (18:00)
[2016-05-10 20:29] LABS: Glucose,Whole Blood 199 mg/dL (75-99)
[2016-05-10] MEDS: PRAVASTATIN SODIUM 20 MG TAB PO SCH (20:37)
[2016-05-10] MEDS: MONTELUKAST 10 MG TAB PO SCH (20:37)
[2016-05-10] MEDS: LOSARTAN 50 MG TAB PO SCH (21:33)
[2016-05-11] MEDS: HYDROcodone/APAP 10-325MG 1 EACH TAB PO PRN ×5 (01:41→21:44)
[2016-05-11 07:26] LABS: Glucose,Whole Blood 141 mg/dL (75-99)
[2016-05-11] MEDS: DILTIAZEM CD 240 MG CAP.ER.24H PO SCH (07:51)
[2016-05-11] MEDS: INSULIN LISPRO (humaLOG) 300 UNIT/3 ML VIAL SQ SCH ×3 (07:51→17:54)
[2016-05-11] MEDS: PANTOPRAZOLE 40 MG TABLET PO SCH (07:51)
[2016-05-11] MEDS: ENOXAPARIN 100 MG/ML SYRINGE SQ SCH ×2 (07:51→21:40)
[2016-05-11] MEDS: DIGOXIN 250 MCG TAB PO SCH (07:51)
[2016-05-11] MEDS: METOPROLOL SUCCINATE (ER) 100 MG TAB.ER.24H PO SCH ×2 (07:52→21:40)
[2016-05-11] MEDS: FUROSEMIDE 40 MG TAB PO SCH (07:52)
[2016-05-11] MEDS: predniSONE 20 MG TAB PO SCH (07:52)
[2016-05-11] MEDS: INSULIN DETEMIR 100 UNIT/ML 10 ML VIAL SQ SCH ×2 (07:52→21:44)
[2016-05-11] MEDS: BUDESONIDE 1 MG/2 ML NEBU INHALATION SCH ×2 (08:09→19:27)
[2016-05-11] MEDS: IPRATROPIUM-ALBUTEROL 3 ML NEB INHALATION SCH ×4 (08:09→19:27)
[2016-05-11 08:58] LABS: Anisocytosis Slight; Basophils % (A) 0 %; CH 23.1; CHCM 27.1; Eosinophils % (A) 0 %; HCT 30.4 % (34.0-46.0); HDW 3.79; HGB 8.3 gm/dL (11.4-16.0); Hypochromasia Marked; Luc # (Auto) 0.38; Luc % (Auto) 2; Lymphocytes # (A) 1.8 k/uL (1.0-4.8); Lymphocytes % (A) 11 %; MCH 23.4 pg (25.0-35.0); MCV 85.3 fL (80.0-100.0); Mean Platelet Volume 7.5; Monocytes # (A) 1.1 k/uL (0-1.0); Monocytes % (A) 7 %; Neutrophils # (A) 12.9 k/uL (1.3-7.7); Neutrophils % (A) 80 %; Poikilocytosis Slight; RBC 3.56 m/uL (3.80-5.40); RDW 16.7 % (11.5-15.5); WBC 16.2 k/uL (3.8-10.6); WBC (Perox) 18.17
[2016-05-11 09:05] LABS: MCHC 27.4 g/dL (31.0-37.0); Prothrombin Time 29.4 sec (9.0-12.0)
[2016-05-11 09:14] LABS: ALT 32 U/L (9-52); AST 17 U/L (14-36); Alkaline Phosphatase 61 U/L (38-126); Anion Gap 11 mmol/L; Blood Urea Nitrogen 35 mg/dL (7-17); Calcium 8.2 mg/dL (8.4-10.2); Carbon Dioxide 29 mmol/L (22-30); Chloride 100 mmol/L (98-107); Glucose 167 mg/dL (74-99); Non-African American GFR(MDRD) >60 (>60 ml/min/1.73 sqM); Potassium 4.5 mmol/L (3.5-5.1); Sodium 140 mmol/L (137-145); Total Bilirubin 0.4 mg/dL (0.2-1.3); Total Protein 5.4 g/dL (6.3-8.2)
[2016-05-11] MEDS: SODIUM CHLORIDE 0.9% 1,000 ML IV SCH (11:09)
[2016-05-11 11:59] LABS: Glucose,Whole Blood 199 mg/dL (75-99)
[2016-05-11 13:45] VITALS: BMI 36.8
--- NOTE | 2016-05-11 13:54 | XR ---
EXAMINATION TYPE: XR foot complete LT DATE OF EXAM: 05/11/2016 1:47 PM COMPARISON: NONE HISTORY: Pain TECHNIQUE: Three views are submitted. FINDINGS: Mild diffuse osteopenia. Soft tissue calcification along the PIP joint vascular calcifications and pl marek calcaneal spur noted. IMPRESSION: 1. No acute fracture or dislocation. If symptoms persist, follow-up exam in 7 to 10 days could be ob tained.
[2016-05-11 17:16] LABS: Glucose,Whole Blood 203 mg/dL (75-99)
--- NOTE | 2016-05-11 17:19 | P.PN ---
Subjective This is a 76-year-old female patient evaluated and examined today on the fourth floor Patient initially had a hemoglobin of 6.1 and an INR of 2.0 lactic acid of 3.3 at [facility], the patient was then transferred to [facility]. Initial labs upon arrival were hemoglobin of 6.6, INR of 1.9 , and a lactic acid of 2.2. The patient stated she had been having some subjective fevers at home with chills and intermittent nonproductive cough with shortness of breath. Since being here [facility] the patient has received 2 units of packed red blood cells. The patient has never showed any evidence of an active bleed. Patient's colonoscopy has been postponed related to an incomplete bowel prep last week. The patient since then also developed ischemic vascular changes to her left lower extremity last Tuesday secondary to her peripheral artery disease and she has a left femoral artery occlusion. Patient underwent a thrombectomy on Tuesday and is recovering well. Upon evaluation today the patient is resting up in bed in no distress. The patient is currently using 3 L of oxygen, she states she does have a productive cough with clear to white sputum, however it is decreasing.. Patient states that the updrafts seem to be helping her significantly. The patient does have a diagnosis of obstructive sleep apnea and family has brought in her home BiPAP machine. Patient is using her incentive spirometer and pulling volumes of 1250. She is also utilizing her flutter valve. Patient also states that her left leg pain has significantly improved after her thrombectomy. Objective - Vital Signs Vital signs: Vital Signs Temp 97.7 F 05/11/16 15:09 Pulse 67 05/11/16 16:03 Resp 18 05/11/16 15:09 BP 145/64 05/11/16 15:09 Pulse Ox 93 L 05/11/16 15:09 Intake & Output 05/10/16 05/11/16 05/11/16 18:59 06:59 18:59 Intake Total 300 Balance 300 Weight 110 kg 110 kg Intake: Oral 300 Other: Voiding Method Bedpan # Voids 2 1 1 - Exam GENERAL EXAM: Alert, active, comfortable in no apparent distress. HEAD: Normocephalic. EYES: Normal reaction of pupils, equal size. NOSE: Clear with pink turbinates. THROAT: No erythema or exudates. NECK: No masses, no JVD. CHEST: No chest wall deformity. LUNGS: Lungs noted to the course. Wheezes noted bilaterally on inspiration and expiration. CVS: S1 and S2 normal with no audible mumurs, regular rhythm. ABDOMEN: No hepatosplenomegaly, normal bowel sounds, no guarding or rigidity. EXTREMITIES: No edema noted, pedal pulses palpable. SKIN: No rashes CENTRAL NERVOUS SYSTEM: No focal deficits, tone is normal in all 4 extremities. - Labs CBC & Chem 7: 05/11/16 08:22 05/11/16 08:22 Labs: Abnormal Lab Results - Last 24 Hours (Table) 05/10/16 05/11/16 05/11/16 Range/Units 20:02 07:22 08:22 WBC 16.2 H (3.8-10.6) k/uL RBC 3.56 L (3.80-5.40) m/uL Hgb 8.3 L (11.4-16.0) gm/dL Hct 30.4 L (34.0-46.0) % MCH 23.4 L (25.0-35.0) pg MCHC 27.4 L (31.0-37.0) g/dL RDW 16.7 H (11.5-15.5) % Neutrophils # 12.9 H (1.3-7.7) k/uL Monocytes # 1.1 H (0-1.0) k/uL PT (9.0-12.0) sec BUN (7-17) mg/dL Glucose (74-99) mg/dL POC Glucose (mg/dL) 199 H 141 H (75-99) mg/dL Calcium (8.4-10.2) mg/dL Total Protein (6.3-8.2) g/dL Albumin (3.5-5.0) g/dL 05/11/16 05/11/16 05/11/16 Range/Units 08:22 08:22 11:58 WBC (3.8-10.6) k/uL RBC (3.80-5.40) m/uL Hgb (11.4-16.0) gm/dL Hct (34.0-46.0) % MCH (25.0-35.0) pg MCHC (31.0-37.0) g/dL RDW (11.5-15.5) % Neutrophils # (1.3-7.7) k/uL Monocytes # (0-1.0) k/uL PT 29.4 H (9.0-12.0) sec BUN 35 H (7-17) mg/dL Glucose 167 H (74-99) mg/dL POC Glucose (mg/dL) 199 H (75-99) mg/dL Calcium 8.2 L (8.4-10.2) mg/dL Total Protein 5.4 L (6.3-8.2) g/dL Albumin 2.7 L (3.5-5.0) g/dL 05/11/16 Range/Units 17:14 WBC (3.8-10.6) k/uL RBC (3.80-5.40) m/uL Hgb (11.4-16.0) gm/dL Hct (34.0-46.0) % MCH (25.0-35.0) pg MCHC (31.0-37.0) g/dL RDW (11.5-15.5) % Neutrophils # (1.3-7.7) k/uL Monocytes # (0-1.0) k/uL PT (9.0-12.0) sec BUN (7-17) mg/dL Glucose (74-99) mg/dL POC Glucose (mg/dL) 203 H (75-99) mg/dL Calcium (8.4-10.2) mg/dL Total Protein (6.3-8.2) g/dL Albumin (3.5-5.0) g/dL Assessment and Plan Plan: Assessment GI bleed Symptomatic Anemia Acute blood loss anemia Lactic acidosis sepsis Elevated INR Acute exacerbation of COPD Obesity History of chronic moderate persistent asthma Diabetes mellitus Obstructive sleep apnea Ischemic left leg Plan Medications have been reviewed and we will continue with current treatment. Chest x-ray is reviewed and remain relatively unchanged and stable. Patient to use home BiPAP at night. Continue with current nebulizer treatments. Continue to monitor for any active bleeding. Continue to monitor any vascular changes 2 left leg. Patient will undergo a colonoscopy possibly outpatient. We will continue to monitor labs and adjust treatment as necessary. We agree the patient will need placement after discharge. I performed an examination of the patient and discussed their management with the nurse practitioner. I have reviewed the nurse practitioner's note and agree with the documented findings and plan of care.
[2016-05-11] MEDS ORDERED: WARFARIN 2.5 MG TAB PO ONE (18:00)
[2016-05-11 20:23] LABS: Glucose,Whole Blood 186 mg/dL (75-99)
[2016-05-11] MEDS: PRAVASTATIN SODIUM 20 MG TAB PO SCH (21:40)
[2016-05-11] MEDS: MONTELUKAST 10 MG TAB PO SCH (21:40)
[2016-05-11] MEDS: LOSARTAN 50 MG TAB PO SCH (21:40)
[2016-05-12 07:32] LABS: Glucose,Whole Blood 124 mg/dL (75-99)
[2016-05-12 07:56] LABS: Anisocytosis Slight; Basophils # (A) 0.1 k/uL (0-0.2); Basophils % (A) 0 %; CH 23.6; CHCM 27.9; Eosinophils % (A) 0 %; HCT 28.8 % (34.0-46.0); HGB 8.1 gm/dL (11.4-16.0); Hypochromasia Marked; Luc # (Auto) 0.35; Luc % (Auto) 2; Lymphocytes % (A) 12 %; MCH 23.8 pg (25.0-35.0); MCHC 28.1 g/dL (31.0-37.0); MCV 84.6 fL (80.0-100.0); Mean Platelet Volume 8.2; Monocytes # (A) 0.9 k/uL (0-1.0); Monocytes % (A) 5 %; Neutrophils % (A) 80 %; Poikilocytosis Slight; RDW 17.7 % (11.5-15.5); WBC 16.3 k/uL (3.8-10.6); WBC (Perox) 17.03
[2016-05-12 08:12] LABS: Prothrombin Time 55.8 sec (9.0-12.0)
[2016-05-12] MEDS: predniSONE 20 MG TAB PO SCH (08:17)
[2016-05-12] MEDS: INSULIN LISPRO (humaLOG) 300 UNIT/3 ML VIAL SQ SCH ×3 (08:17→17:45)
[2016-05-12] MEDS: PANTOPRAZOLE 40 MG TABLET PO SCH (08:17)
[2016-05-12] MEDS: HYDROcodone/APAP 10-325MG 1 EACH TAB PO PRN ×3 (08:17→20:14)
[2016-05-12] MEDS: DIGOXIN 250 MCG TAB PO SCH (08:17)
[2016-05-12] MEDS: FUROSEMIDE 40 MG TAB PO SCH (08:17)
[2016-05-12] MEDS: DILTIAZEM CD 240 MG CAP.ER.24H PO SCH (08:17)
[2016-05-12] MEDS: INSULIN DETEMIR 100 UNIT/ML 10 ML VIAL SQ SCH ×2 (08:18→20:14)
[2016-05-12] MEDS: ENOXAPARIN 100 MG/ML SYRINGE SQ SCH (08:18)
[2016-05-12] MEDS: METOPROLOL SUCCINATE (ER) 100 MG TAB.ER.24H PO SCH ×2 (08:18→20:15)
[2016-05-12 08:20] LABS: ALT 27 U/L (9-52); AST 20 U/L (14-36); Alkaline Phosphatase 58 U/L (38-126); Anion Gap 6 mmol/L; Blood Urea Nitrogen 36 mg/dL (7-17); Calcium 8.3 mg/dL (8.4-10.2); Carbon Dioxide 33 mmol/L (22-30); Chloride 102 mmol/L (98-107); Glucose 111 mg/dL (74-99); Non-African American GFR(MDRD) >60 (>60 ml/min/1.73 sqM); Potassium 4.3 mmol/L (3.5-5.1); Sodium 141 mmol/L (137-145); Total Bilirubin 0.4 mg/dL (0.2-1.3); Total Protein 5.3 g/dL (6.3-8.2)
[2016-05-12 08:23] LABS: INR 5.6 (<1.1)
[2016-05-12] MEDS: IPRATROPIUM-ALBUTEROL 3 ML NEB INHALATION SCH ×4 (09:30→20:09)
[2016-05-12] MEDS: BUDESONIDE 1 MG/2 ML NEBU INHALATION SCH ×2 (09:30→20:09)
[2016-05-12 11:50] LABS: Glucose,Whole Blood 106 mg/dL (75-99)
[2016-05-12] MEDS: SODIUM CHLORIDE 0.9% 1,000 ML IV SCH (13:58)
[2016-05-12 17:13] LABS: Glucose,Whole Blood 179 mg/dL (75-99)
--- NOTE | 2016-05-12 19:00 | PN ---
This patient is a 76-year-old female, seen, evaluated, examined; clinically doing well. Awake, alert, breathing comfortably. Cough, congestion, shortness of breath have significantly improved. Patient is recovering from the surgery as well. Her last set of vitals includes blood pressure 145/63, respiratory rate 18, pulse 78, temperature 97. Saturation 92% on 4 L oxygen. HEENT: Unremarkable. NECK: Supple. LUNGS: Good air entry bilaterally. HEART: Regular rate, rhythm. S1, S2 audible. ABDOMEN: Soft. No rebound or rigidity. EXTREMITIES: Plus one peripheral pulses. NEUROLOGICAL EXAMINATION: Otherwise awake and alert. Laboratory data reviewed. Medications reviewed as well. Currently patient is on: 1. Tylenol as needed along with hydrocodone. 2. DuoNeb updraft 4 times a day. 3. Xanax. 4. Pulmicort. 5. Digoxin. 6. Diltiazem. 7. Lasix. 8. Guaifenesin. 9. Levemir. 10. Humalog. 11. Cozaar. 12. Metoprolol. 13. Singulair. 14. IV fluid normal saline KVO. 15. Prednisone 40 mg. Laboratory data reviewed as well. The white cell count is 16,300, down from 20,000 48 hours ago. Hemoglobin 8.1, hematocrit 28.8, platelet count 204,000. PT and INR are 55.8 and 5.6. Rest of the chemistry is normal. IMPRESSION: 1. Ischemia, left foot, status post thrombectomy by Vascular Surgery. 2. Chronic atrial fibrillation. 3. Pneumonia. 4. Coagulopathy. PLAN AND RECOMMENDATION: As above. Continue supportive care. Would recommend holding anticoagulation. Repeat chest x-ray tomorrow.
--- NOTE | 2016-05-12 19:17 | P.PN ---
Subjective Principal diagnosis: Anemia Patient is a 76-year-old female with multiple medical problems currently admitted to medical floor. Patient has severe shortness of breath, she has evidence of pneumonia and acute exacerbation of chronic obstructive pulmonary disease and evidence of fluid overload she is followed by pulmonary she is maintained on IV antibiotic IV Lasix and IV steroids and inhaled bronchodilators he has been improving gradually. Patient has chronic anemia which has required red blood cell transfusion during this admission, she had an EGD which was unremarkable 2 month ago, we have been and able to proceed was colonoscopy due to her multiple comorbidities. Yesterday she developed a bluish discoloration with coldness of her left lower extremity, lower extremity Doppler was negative for DVT she was seen by Dr. García vascular surgeon she was started on IV heparin and her leg improved significantly. Objective - Vital Signs Vital signs: Vital Signs Temp 97.0 F L 05/12/16 15:00 Pulse 76 05/12/16 16:01 Resp 18 05/12/16 15:00 BP 124/86 05/12/16 15:00 Pulse Ox 92 L 05/12/16 15:00 Intake & Output 05/12/16 05/12/16 05/13/16 06:59 18:59 06:59 Weight 113 kg Other: # Voids 1 2 - Exam HEENT head normocephalic and atraumatic Neck is supple no JVD no goiter no lymphadenopathy Chest exam was a scattered crackles bilaterally no wheezing Cardiac exam reveals regular heart sounds no gallops no murmurs Abdomen is soft nontender no organomegaly Extremity exam reveals no edema no cyanosis or clubbing - Labs CBC & Chem 7: 05/12/16 07:23 05/12/16 07:23 Labs: Abnormal Lab Results - Last 24 Hours (Table) 05/11/16 05/12/16 05/12/16 Range/Units 20:21 07:17 07:23 WBC (3.8-10.6) k/uL RBC (3.80-5.40) m/uL Hgb (11.4-16.0) gm/dL Hct (34.0-46.0) % MCH (25.0-35.0) pg MCHC (31.0-37.0) g/dL RDW (11.5-15.5) % Neutrophils # (1.3-7.7) k/uL PT 55.8 H (9.0-12.0) sec INR 5.6 H* (<1.1) Carbon Dioxide (22-30) mmol/L BUN (7-17) mg/dL Glucose (74-99) mg/dL POC Glucose (mg/dL) 186 H 124 H (75-99) mg/dL Calcium (8.4-10.2) mg/dL Total Protein (6.3-8.2) g/dL Albumin (3.5-5.0) g/dL 05/12/16 05/12/16 05/12/16 Range/Units 07:23 07:23 11:34 WBC 16.3 H (3.8-10.6) k/uL RBC 3.40 L (3.80-5.40) m/uL Hgb 8.1 L (11.4-16.0) gm/dL Hct 28.8 L (34.0-46.0) % MCH 23.8 L (25.0-35.0) pg MCHC 28.1 L (31.0-37.0) g/dL RDW 17.7 H (11.5-15.5) % Neutrophils # 13.0 H (1.3-7.7) k/uL PT (9.0-12.0) sec INR (<1.1) Carbon Dioxide 33 H (22-30) mmol/L BUN 36 H (7-17) mg/dL Glucose 111 H (74-99) mg/dL POC Glucose (mg/dL) 106 H (75-99) mg/dL Calcium 8.3 L (8.4-10.2) mg/dL Total Protein 5.3 L (6.3-8.2) g/dL Albumin 2.6 L (3.5-5.0) g/dL 05/12/16 Range/Units 17:11 WBC (3.8-10.6) k/uL RBC (3.80-5.40) m/uL Hgb (11.4-16.0) gm/dL Hct (34.0-46.0) % MCH (25.0-35.0) pg MCHC (31.0-37.0) g/dL RDW (11.5-15.5) % Neutrophils # (1.3-7.7) k/uL PT (9.0-12.0) sec INR (<1.1) Carbon Dioxide (22-30) mmol/L BUN (7-17) mg/dL Glucose (74-99) mg/dL POC Glucose (mg/dL) 179 H (75-99) mg/dL Calcium (8.4-10.2) mg/dL Total Protein (6.3-8.2) g/dL Albumin (3.5-5.0) g/dL Assessment and Plan Plan: 1. Acute symptomatic anemia secondary to chronic blood loss and suspected lower GI bleed. Patient received 2 unit of PRBCs since admission. She had an EGD last month during her last hospitalization at [facility] that was unremarkable. She was seen and evaluated by gastroenterology. Patient's colonoscopy he is scheduled again for tomorrow. Canceled today due to fluid overload and poor bowel prep. Patient will be rescheduled for colonoscopy tomorrow 2. Underlying pneumonia with sepsis on presentation, continue IV antibiotics 3. Acute COPD exacerbation seen and evaluated by pulmonology. Continue bronchodilator and inhaled steroids. Patient had been having wheezing this morning as well. Could be related to some fluid overload as well as her COPD exacerbation pulmonate service has started patient on IV Solu-Medrol 4. Paroxysmal atrial fibrillation on anticoagulation with Coumadin: Currently on hold awaiting further evaluation of underlying anemia. Patient has been having episodes of atrial fibrillation with rapid ventricular response. Evaluated by cardiology. They've added digoxin to her regimen of medications. Appreciate their input 5. 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 Diabetes mellitus insulin-dependent. Continue home insulin. We'll change sliding scale to the steroid scale 8. Fluid overload will give patient another dose of IV Lasix. 9. Anemia, will give 1 unit of RBCs monitor labs closely 10. Left lower extremity peripheral arterial occlusive disease Possible discharge to home tomorrow so she can attend her 's Patient may need readmission for rehab afterwards
[2016-05-12] MEDS: LOSARTAN 50 MG TAB PO SCH (20:14)
[2016-05-12] MEDS: PRAVASTATIN SODIUM 20 MG TAB PO SCH (20:15)
[2016-05-12] MEDS: MONTELUKAST 10 MG TAB PO SCH (20:15)
[2016-05-12 20:48] LABS: Glucose,Whole Blood 240 mg/dL (75-99)
[2016-05-13] MEDS: HYDROcodone/APAP 10-325MG 1 EACH TAB PO PRN ×2 (00:37→09:10)
[2016-05-13 07:24] LABS: Glucose,Whole Blood 109 mg/dL (75-99)
[2016-05-13] MEDS: BUDESONIDE 1 MG/2 ML NEBU INHALATION SCH (07:25)
[2016-05-13] MEDS: IPRATROPIUM-ALBUTEROL 3 ML NEB INHALATION SCH ×2 (07:25→12:23)
[2016-05-13 07:59] VITALS: BP 135/105; RESP 19; TEMP 97.4
[2016-05-13] MEDS: predniSONE 20 MG TAB PO SCH (07:59)
[2016-05-13] MEDS: DILTIAZEM CD 240 MG CAP.ER.24H PO SCH (07:59)
[2016-05-13] MEDS: INSULIN LISPRO (humaLOG) 300 UNIT/3 ML VIAL SQ SCH (07:59)
[2016-05-13] MEDS: PANTOPRAZOLE 40 MG TABLET PO SCH (07:59)
[2016-05-13] MEDS: DIGOXIN 250 MCG TAB PO SCH (07:59)
[2016-05-13] MEDS: FUROSEMIDE 40 MG TAB PO SCH (07:59)
[2016-05-13] MEDS: METOPROLOL SUCCINATE (ER) 100 MG TAB.ER.24H PO SCH (07:59)
[2016-05-13] MEDS: INSULIN DETEMIR 100 UNIT/ML 10 ML VIAL SQ SCH (07:59)
[2016-05-13 09:06] LABS: Anisocytosis Slight; Basophils % (A) 0 %; CH 23.3; CHCM 27.2; Eosinophils % (A) 0 %; HCT 29.3 % (34.0-46.0); HDW 3.81; HGB 8.2 gm/dL (11.4-16.0); Hypochromasia Marked; Luc # (Auto) 0.24; Luc % (Auto) 2; Lymphocytes # (A) 2.3 k/uL (1.0-4.8); Lymphocytes % (A) 15 %; MCH 23.9 pg (25.0-35.0); MCV 85.4 fL (80.0-100.0); Mean Platelet Volume 7.1; Monocytes # (A) 0.8 k/uL (0-1.0); Monocytes % (A) 5 %; Neutrophils # (A) 11.8 k/uL (1.3-7.7); Neutrophils % (A) 78 %; Poikilocytosis Slight; RBC 3.43 m/uL (3.80-5.40); RDW 17.3 % (11.5-15.5); WBC 15.2 k/uL (3.8-10.6); WBC (Perox) 15.76
[2016-05-13 09:10] LABS: MCHC 27.9 g/dL (31.0-37.0)
[2016-05-13] MEDS: ALPRAZolam 0.25 MG TAB PO PRN (09:10)
[2016-05-13 09:11] LABS: INR 4.4 (<1.1); Prothrombin Time 43.3 sec (9.0-12.0)
[2016-05-13 09:21] LABS: ALT 32 U/L (9-52); AST 17 U/L (14-36); Alkaline Phosphatase 53 U/L (38-126); Anion Gap 9 mmol/L; Blood Urea Nitrogen 35 mg/dL (7-17); Calcium 8.3 mg/dL (8.4-10.2); Carbon Dioxide 29 mmol/L (22-30); Chloride 103 mmol/L (98-107); Glucose 147 mg/dL (74-99); Non-African American GFR(MDRD) >60 (>60 ml/min/1.73 sqM); Potassium 4.6 mmol/L (3.5-5.1); Sodium 141 mmol/L (137-145); Total Bilirubin 0.3 mg/dL (0.2-1.3); Total Protein 5.4 g/dL (6.3-8.2)
[2016-05-13 09:36] VITALS: PULSE 72
--- NOTE | 2016-05-13 12:04 | P.DS ---
Providers Date of admission: 04/27/16 04:56 Expected date of discharge: 05/13/16 Attending physician: Geoffrey Veliz Consults: 04/29/16 14:34 Consult Physician Urgent Consulting Provider: Alfred Bajwa Consult Reason/Comments: afib/rvr Do you want consulting provider notified?: Yes 04/30/16 14:12 Consult Physician Routine Consulting Provider: Hoang García Consult Reason/Comments: left leg pain and discoloration Do you want consulting provider notified?: Yes 05/10/16 11:29 Consult Physician Routine Consulting Provider: Milind Rosas Consult Reason/Comments: inpatient rehab placement Do you want consulting provider notified?: Yes Dr. Pittman [facility] Course: Discharge diagnosis 1. Left leg ischemia: Status post thrombectomy with Dr. García. 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 INR 4.4. No Coumadin at tonight. Restart Coumadin 05/14/2016 with 2 mg at bedtime 2. Acute symptomatic anemia secondary to chronic blood loss and suspected lower GI bleed. Patient received 2 unit of PRBCs since admission. She had an EGD last month during her last hospitalization at [facility] that was unremarkable. She was seen and evaluated by gastroenterology. colonoscopy was canceled during this admission. GI service has signed off. The recommending outpatient evaluation in one to 2 weeks with barium enema. 3. Underlying pneumonia with sepsis on presentation: Completed antibiotic treatment during this admission 4. Acute COPD exacerbation seen and evaluated by pulmonology. Continue bronchodilator and inhaled steroids. Continue prednisone taper and follow-up with pulmonary service in the office 5. Paroxysmal atrial fibrillation on anticoagulation with Coumadin: Patient has been having episodes of atrial fibrillation with rapid ventricular response. Evaluated by cardiology. They've added digoxin to her regimen of medications. Appreciate their input. Heart rate controlled 6. 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 Diabetes mellitus insulin-dependent. Continue the Levemir and scheduled NovoLog. Continue sliding scale coverage. Continue to monitor 9. acute on chronic systolic CHF with exacerbation. Echo shows an EF of 40-45 %. 10. Medical debility. Hospital course This is a 76-year-old female who presented with generalized weakness and shortness of breath. She was found have pneumonia with sepsis. She was started on IV antibiotics and bronchodilators. She also was found to be anemic with a stool that was positive for occult blood as outpatient. GI service was following she had 3 attempts to proceed with colonoscopy. I each attempt there was an issue one-time she will went to atrial fibrillation with rapid ventricular response. Another was a poor bowel prep. And then she developed ischemia of the left leg. Therefore canal colonoscopy has been postponed until 2 weeks she'll be seen by GI service and possibly do a barium enema in the outpatient setting. 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 She underwent a thrombectomy. She tolerated that well. She was maintained on IV heparin and then her IV went bad. And was had to be placed on Lovenox. She is on Lovenox until the INR was therapeutic. She has been on Coumadin. INR at discharge is 4.4. Hold Coumadin tonight and restart Coumadin tomorrow evening at 2 mg at bedtime. I will check PT/INR on Tuesday. Patient will follow-up with Dr. García in the office. Patient was also treated for COPD exacerbation and his been on oral prednisone will continue a slow prednisone taper. She'll follow-up with pulmonary service in the office. Patient was also evaluated by cardiology they did add digoxin for better heart rate control. Since then her heart rate has been controlled she' ll continue with her metoprolol and Cardizem as well. Insulin was also adjusted during this admission she had a couple episodes of hypoglycemia. We will continue with the insulin that she has been receiving here with the Levemir and NovoLog scheduled with meals. Patient should blood sugars are better controlled. She also had episodes of fluid overload. And was treated for CHF exacerbation. She received a few doses of IV Lasix. And will continue with her home dose of oral Lasix 40 mg in the morning and 20 mg in the evening. Patient left this morning to attend her 's . She is given a leave of absence. When she returns back to the hospital she will be discharged to [facility]. Patient's symptoms have improved. She's been cleared by consulting physicians for discharge. She will need further rehabilitation. Please refer to chart for any further details. Patient Condition at Discharge: Stable Plan - Discharge Summary New Discharge Prescriptions: predniSONE 10 mg PO DIRECTED #50 tab Discharge Medication List ALPRAZolam [Xanax] 0.25 mg PO BID 04/27/16 [History] Diltiazem Cd [Cardizem CD] 240 mg PO DAILY 04/27/16 [History] Furosemide [Lasix] 20 mg PO PC-LUNCH 04/27/16 [History] Furosemide [Lasix] 40 mg PO DAILY 04/27/16 [History] Insulin Detemir [Levemir] 23 unit SQ HS 04/27/16 [History] Insulin Detemir [Levemir] 53 unit SQ DAILY@0900 04/27/16 [History] Losartan Potassium [Cozaar] 50 mg PO HS 04/27/16 [History] Metoprolol Succinate [Toprol XL] 200 mg PO BID 04/27/16 [History] Montelukast Sodium [Singulair] 10 mg PO HS 04/27/16 [History] Pravastatin Sodium [Pravachol] 20 mg PO HS 04/27/16 [History] Budesonide [Pulmicort] 1 mg INHALATION RT-BID nebu 05/13/16 [Rx] Digoxin [Lanoxin] 250 mcg PO DAILY tab 05/13/16 [Rx] HYDROcodone/APAP 10-325MG [[place] 10-325] 1 each PO Q4H PRN #0 tab 05/13/16 [Rx] INSULIN LISPRO (humaLOG) [humaLOG (formulary)] 8 unit SQ AC-SUPPER vial [Rx] INSULIN LISPRO (humaLOG) [humaLOG (formulary)] 12 unit SQ BID@0730,1230 vial [Rx] Ipratropium-Albuterol Nebulize [Duoneb 0.5 mg-3 mg/3 ml Soln] 3 ml INHALATION RT -QID ampul.neb 05/13/16 [Rx] Warfarin Sodium [Coumadin] 2 mg PO HS #0 05/13/16 [Rx] predniSONE 10 mg PO DIRECTED #50 tab 05/13/16 [Rx] Follow up Appointment(s)/Referral(s): Gustavo Mccarthy MD [STAFF PHYSICIAN] - 1 Week Kaisergeovanni Soriano, [NON-STAFF] - 1 Week Felipe Pittman MD [STAFF PHYSICIAN] - 1 Week Hoang García MD [STAFF PHYSICIAN] - 1 Week Maria Luisa Bland MD [Primary Care Provider] - 1-2 days Patient Instructions/Handouts: Heart Failure (DC), Gastrointestinal Bleeding ( DC), Type 2 Diabetes in Adults (DC) Activity/Diet/Wound Care/Special Instructions: Cardiac, diabetic diet. Discharge to [facility] of . Dr. Veliz will follow her at [facility]. Check CBC, PT/INR on tuesday
== END 2016-05-13 13:39 | DRG 853 ==
LOC: EC 00:31 → 6ICU 04:56 → 4MS4W 04-28 13:49 → 6ICU 05-07 13:45 → 4MS4W 05-08 13:15
PROVIDERS: ADMIT Internal Medicine; ATTEND Internal Medicine
PROC: 30233N1 Transfusion of Nonautologous Red Blood Cells into Peripheral Vein, Percutaneous Approach (ICD-10-PCS; 2016-04-27)
PROC: 04CL0ZZ Extirpation of Matter from Left Femoral Artery, Open Approach (ICD-10-PCS; principal; 2016-05-07 10:00)
PROC: 04UL0JZ Supplement Left Femoral Artery with Synthetic Substitute, Open Approach (ICD-10-PCS; principal; 2016-05-07 10:00)
DX: A41.9 Sepsis, unspecified organism (principal); I50.43 Acute on chronic combined systolic (congestive) and diastolic (congestive) heart failure; J96.21 Acute and chronic respiratory failure with hypoxia; J18.9 Pneumonia, unspecified organism; I74.3 Embolism and thrombosis of arteries of the lower extremities; E87.2 Acidosis; D68.9 Coagulation defect, unspecified; I11.0 Hypertensive heart disease with heart failure; J44.0 Chronic obstructive pulmonary disease with (acute) lower respiratory infection; D62 Acute posthemorrhagic anemia; I70.92 Chronic total occlusion of artery of the extremities; J44.1 Chronic obstructive pulmonary disease with (acute) exacerbation; J98.11 Atelectasis; K92.2 Gastrointestinal hemorrhage, unspecified; E11.51 Type 2 diabetes mellitus with diabetic peripheral angiopathy without gangrene; E11.649 Type 2 diabetes mellitus with hypoglycemia without coma; E11.65 Type 2 diabetes mellitus with hyperglycemia; E66.9 Obesity, unspecified; E78.5 Hyperlipidemia, unspecified; F17.200 Nicotine dependence, unspecified, uncomplicated; F19.959 Other psychoactive substance use, unspecified with psychoactive substance-induced psychotic disorder, unspecified; G47.33 Obstructive sleep apnea (adult) (pediatric); I48.0 Paroxysmal atrial fibrillation; I48.2 Chronic atrial fibrillation; I70.202 Unspecified atherosclerosis of native arteries of extremities, left leg; J45.40 Moderate persistent asthma, uncomplicated; T38.0X5A Adverse effect of glucocorticoids and synthetic analogues, initial encounter; Z79.01 Long term (current) use of anticoagulants; Z79.4 Long term (current) use of insulin; Z79.899 Other long term (current) drug therapy; Z85.820 Personal history of malignant melanoma of skin; Z86.73 Personal history of transient ischemic attack (TIA), and cerebral infarction without residual deficits; Z88.0 Allergy status to penicillin; Z99.81 Dependence on supplemental oxygen
CPT/HCPCS: 36415; 36430; 71010; 71020; 75635; 80053; 81003; 82272; 83036; 83605; 83735; 83880; 84100; 84484; 85025; 85027; 85610; 85730; 86850; 86900; 86901; 86920; 87040; 87070; 87077; 87086; 87186; 87205; 87502; 88304; 88311; 93005; 93306; 94640; 94660; 94667; 94760; 99285

== ENCOUNTER 2016-05-19 10:01 | Inpatient (IN) | payer MEDICARE, BC ==
[2016-05-19] MEDS ORDERED: SODIUM CHLORIDE 0.9% 1,000 ML IV STA ×2 (10:06→11:44)
--- NOTE | 2016-05-19 10:10 | ED ---
Weakness HPI - General Stated complaint: Pneumonia Symptoms Time Seen by Provider: 05/19/16 10:01 Source: patient, EMS, RN notes reviewed, old records reviewed Mode of arrival: EMS - History of Present Illness Initial comments: This is a 76-year-old female who is brought in from a [place] [facility] [place] with complaints of feeling lethargic and weak more so than usual. She does have a history of chronic atrial fibrillation. She was noted per paramedics the feel warm though no reported temperature was given. Her vital signs appeared be stable she did have a 92% saturation on 4 L of oxygen she does use CPAP she states. She states she had a procedure done her left lower extremity yesterday to remove a blood clot. She denies any cough she has any overt fevers chills or sweats. She states her mouth is always dry from his CPAP machine. MD Complaint: generalized weakness - Related Data Home Medications Medication Instructions Recorded Confirmed ALPRAZolam [Xanax] 0.25 mg PO BID 04/27/16 05/19/16 Diltiazem Cd [Cardizem CD] 240 mg PO DAILY 04/27/16 05/19/16 Furosemide [Lasix] 20 mg PO DAILY@1300 04/27/16 05/19/16 Furosemide [Lasix] 40 mg PO DAILY 04/27/16 05/19/16 Insulin Detemir [Levemir] 23 unit SQ HS 04/27/16 05/19/16 Insulin Detemir [Levemir] 53 unit SQ DAILY 04/27/16 05/19/16 Losartan Potassium [Cozaar] 50 mg PO HS 04/27/16 05/19/16 Metoprolol Succinate [Toprol XL] 200 mg PO BID 04/27/16 05/19/16 Montelukast Sodium [Singulair] 10 mg PO HS 04/27/16 05/19/16 Pravastatin Sodium [Pravachol] 20 mg PO HS 04/27/16 05/19/16 HYDROcodone/APAP 10-325MG [[place] 1 tab PO BID@0800,2000 05/19/16 05/19/16 10-325] HYDROcodone/APAP 10-325MG [[place] 1 tab PO Q4HR PRN 05/19/16 05/19/16 10-325] INSULIN LISPRO (humaLOG) [humaLOG 8 unit SQ DAILY@1630 05/19/16 05/19/16 (formulary)] INSULIN LISPRO (humaLOG) [humaLOG 12 unit SQ BID@0730,1230 05/19/16 05/19/16 (formulary)] predniSONE 30 mg PO DIRECTED 05/19/16 05/19/16 Previous Rx's Medication Instructions Recorded Budesonide [Pulmicort] 1 mg INHALATION RT-BID nebu 05/13/16 Digoxin [Lanoxin] 250 mcg PO DAILY tab 05/13/16 Ipratropium-Albuterol Nebulize 3 ml INHALATION RT-QID ampul.neb 05/13/16 [Duoneb 0.5 mg-3 mg/3 ml Soln] Allergies Allergy/AdvReac Type Severity Reaction Status Date / Time Penicillins Allergy Rash/Hives Verified 04/27/16 01:09 Review of Systems ROS Statement: Those systems with pertinent positive or pertinent negative responses have been documented in the HPI. ROS Other: All systems not noted in ROS Statement are negative. Past Medical History Past Medical History: Asthma, Heart Failure, CVA/TIA, Diabetes Mellitus, Hyperlipidemia, Hypertension Additional Past Medical History / Comment(s): Afib. melanoma x 2. pain stimulator in L. hip. [employer] [place] History of Any Multi-Drug Resistant Organisms: MRSA Date of last positivie culture/infection: 05/12/16 MDRO Source:: sputum Past Surgical History: Back Surgery, Hysterectomy Additional Past Surgical History / Comment(s): cyst removed from breast Past Anesthesia/Blood Transfusion Reactions: No Reported Reaction Past Psychological History: No Psychological Hx Reported Smoking Status: Current every day smoker Past Alcohol Use History: None Reported Past Drug Use History: None Reported General Exam - General Exam Comments Initial Comments: This is a well-developed well-nourished awake alert oriented 3 female General appearance: alert, lethargic Head exam: Present: atraumatic, normocephalic, normal inspection Eye exam: Present: normal appearance, PERRL, EOMI. Absent: scleral icterus, conjunctival injection, periorbital swelling ENT exam: Present: mucous membranes dry Neck exam: Present: normal inspection. Absent: tenderness, meningismus, lymphadenopathy Respiratory exam: Present: rhonchi (Of lower lobe rhonchi), decreased breath sounds Cardiovascular Exam: Present: regular rate, normal rhythm, normal heart sounds. Absent: systolic murmur, diastolic murmur, rubs, gallop, clicks GI/Abdominal exam: Present: soft, normal bowel sounds. Absent: distended, tenderness, guarding, rebound, rigid Extremities exam: Present: normal inspection, full ROM, normal capillary refill. Absent: tenderness, pedal edema, joint swelling, calf tenderness Back exam: Present: normal inspection Neurological exam: Present: alert, oriented X3, CN II-XII intact Psychiatric exam: Present: normal affect, normal mood Skin exam: Present: warm, dry, intact, normal color. Absent: rash Course Vital Signs 05/19/16 05/19/16 10:03 10:51 Temperature 102 F H 98.0 F Pulse Rate 72 63 Respiratory 92 H Rate Blood Pressure 146/78 O2 Sat by Pulse 90 L Oximetry EKG Findings - EKG Results: EKG: interpreted by [facility] (Atrial fibrillation with a rate of 55 QRS of 98 daily since QTC of 374/[address] configuration.) Medical Decision Making - Medical Decision Making Patient is feeling slightly better she still demonstrates some dyspnea. I long discussion with her family regarding the findings. Patient does demonstrate pneumonia bronchospasm chronic anemia. She is a failed outpatient treatment it appears. I did discuss case with Dr. Parrish patient will be admitted with continued treatment inpatient. Her hemoglobin does appear to be stable. The patient is mildly elevated serum lactic acid is likely secondary to dehydration. - Lab Data Result diagrams: 05/19/16 10:05 05/19/16 10:05 Lab Results 05/19/16 05/19/16 05/19/16 Range/Units 10:05 10:05 10:05 WBC 16.4 H (3.8-10.6) k/uL RBC 3.33 L (3.80-5.40) m/uL Hgb 7.9 L (11.4-16.0) gm/dL Hct 27.8 L (34.0-46.0) % MCV 83.5 (80.0-100.0) fL MCH 23.7 L (25.0-35.0) pg MCHC 28.4 L (31.0-37.0) g/dL RDW 18.0 H (11.5-15.5) % Plt Count 197 (150-450) k/uL Neutrophils % 94 % Lymphocytes % 2 % Monocytes % 3 % Eosinophils % 0 % Basophils % 0 % Neutrophils # 15.4 H (1.3-7.7) k/uL Lymphocytes # 0.3 L (1.0-4.8) k/uL Monocytes # 0.5 (0-1.0) k/uL Eosinophils # 0.0 (0-0.7) k/uL Basophils # 0.0 (0-0.2) k/uL Hypochromasia Marked Poikilocytosis Slight Anisocytosis Slight PT (9.0-12.0) sec INR (<1.1) APTT (22.0-30.0) sec Sodium 138 (137-145) mmol/L Potassium 4.6 (3.5-5.1) mmol/L Chloride 102 (98-107) mmol/L Carbon Dioxide 28 (22-30) mmol/L Anion Gap 8 mmol/L BUN 30 H (7-17) mg/dL Creatinine 0.73 (0.52-1.04) mg/dL Est GFR (MDRD) Af Amer >60 (>60 ml/min/1.73 sqM) Est GFR (MDRD) Non-Af >60 (>60 ml/min/1.73 sqM) Glucose 147 H (74-99) mg/dL Plasma Lactic Acid Good (0.7-2.0) mmol/L Calcium 8.3 L (8.4-10.2) mg/dL Magnesium 1.7 (1.6-2.3) mg/dL Total Bilirubin 0.5 (0.2-1.3) mg/dL AST 19 (14-36) U/L ALT 30 (9-52) U/L Alkaline Phosphatase 53 (38-126) U/L Total Creatine Kinase <20 L (30-135) U/L CK-MB (CK-2) <0.2 (0.0-2.4) ng/mL CK-MB (CK-2) Rel Index Troponin I 0.071 H* (0.000-0.034) ng/mL Total Protein 5.7 L (6.3-8.2) g/dL Albumin 2.8 L (3.5-5.0) g/dL Urine Color Urine Appearance (Clear) Urine pH (5.0-8.0) Ur Specific [place] (1.001-1.035) Urine Protein (Negative) Urine Glucose (UA) (Negative) Urine Ketones (Negative) Urine Blood (Negative) Urine Nitrite (Negative) Urine Bilirubin (Negative) Urine Urobilinogen (<2.0) mg/dL Ur Leukocyte Esterase (Negative) Influenza Type A RNA (Not Detectd) Influenza Type B (PCR) (Not Detectd) 05/19/16 05/19/16 05/19/16 Range/Units 10:05 10:05 10:05 WBC (3.8-10.6) k/uL RBC (3.80-5.40) m/uL Hgb (11.4-16.0) gm/dL Hct (34.0-46.0) % MCV (80.0-100.0) fL MCH (25.0-35.0) pg MCHC (31.0-37.0) g/dL RDW (11.5-15.5) % Plt Count (150-450) k/uL Neutrophils % % Lymphocytes % % Monocytes % % Eosinophils % % Basophils % % Neutrophils # (1.3-7.7) k/uL Lymphocytes # (1.0-4.8) k/uL Monocytes # (0-1.0) k/uL Eosinophils # (0-0.7) k/uL Basophils # (0-0.2) k/uL Hypochromasia Poikilocytosis Anisocytosis PT 26.5 H (9.0-12.0) sec INR 2.8 (<1.1) APTT 27.1 (22.0-30.0) sec Sodium (137-145) mmol/L Potassium (3.5-5.1) mmol/L Chloride (98-107) mmol/L Carbon Dioxide (22-30) mmol/L Anion Gap mmol/L BUN (7-17) mg/dL Creatinine (0.52-1.04) mg/dL Est GFR (MDRD) Af Amer (>60 ml/min/1.73 sqM) Est GFR (MDRD) Non-Af (>60 ml/min/1.73 sqM) Glucose (74-99) mg/dL Plasma Lactic Acid Good 2.1 H (0.7-2.0) mmol/L Calcium (8.4-10.2) mg/dL Magnesium (1.6-2.3) mg/dL Total Bilirubin (0.2-1.3) mg/dL AST (14-36) U/L ALT (9-52) U/L Alkaline Phosphatase (38-126) U/L Total Creatine Kinase (30-135) U/L CK-MB (CK-2) (0.0-2.4) ng/mL CK-MB (CK-2) Rel Index Troponin I (0.000-0.034) ng/mL Total Protein (6.3-8.2) g/dL Albumin (3.5-5.0) g/dL Urine Color Urine Appearance (Clear) Urine pH (5.0-8.0) Ur Specific [place] (1.001-1.035) Urine Protein (Negative) Urine Glucose (UA) (Negative) Urine Ketones (Negative) Urine Blood (Negative) Urine Nitrite (Negative) Urine Bilirubin (Negative) Urine Urobilinogen (<2.0) mg/dL Ur Leukocyte Esterase (Negative) Influenza Type A RNA Not Detected (Not Detectd) Influenza Type B (PCR) Not Detected (Not Detectd) 05/19/16 Range/Units 10:25 WBC (3.8-10.6) k/uL RBC (3.80-5.40) m/uL Hgb (11.4-16.0) gm/dL Hct (34.0-46.0) % MCV (80.0-100.0) fL MCH (25.0-35.0) pg MCHC (31.0-37.0) g/dL RDW (11.5-15.5) % Plt Count (150-450) k/uL Neutrophils % % Lymphocytes % % Monocytes % % Eosinophils % % Basophils % % Neutrophils # (1.3-7.7) k/uL Lymphocytes # (1.0-4.8) k/uL Monocytes # (0-1.0) k/uL Eosinophils # (0-0.7) k/uL Basophils # (0-0.2) k/uL Hypochromasia Poikilocytosis Anisocytosis PT (9.0-12.0) sec INR (<1.1) APTT (22.0-30.0) sec Sodium (137-145) mmol/L Potassium (3.5-5.1) mmol/L Chloride (98-107) mmol/L Carbon Dioxide (22-30) mmol/L Anion Gap mmol/L BUN (7-17) mg/dL Creatinine (0.52-1.04) mg/dL Est GFR (MDRD) Af Amer (>60 ml/min/1.73 sqM) Est GFR (MDRD) Non-Af (>60 ml/min/1.73 sqM) Glucose (74-99) mg/dL Plasma Lactic Acid Good (0.7-2.0) mmol/L Calcium (8.4-10.2) mg/dL Magnesium (1.6-2.3) mg/dL Total Bilirubin (0.2-1.3) mg/dL AST (14-36) U/L ALT (9-52) U/L Alkaline Phosphatase (38-126) U/L Total Creatine Kinase (30-135) U/L CK-MB (CK-2) (0.0-2.4) ng/mL CK-MB (CK-2) Rel Index Troponin I (0.000-0.034) ng/mL Total Protein (6.3-8.2) g/dL Albumin (3.5-5.0) g/dL Urine Color Light Yellow Urine Appearance Clear (Clear) Urine pH 6.5 (5.0-8.0) Ur Specific [place] 1.011 (1.001-1.035) Urine Protein Trace H (Negative) Urine Glucose (UA) Negative (Negative) Urine Ketones Negative (Negative) Urine Blood Negative (Negative) Urine Nitrite Negative (Negative) Urine Bilirubin Negative (Negative) Urine Urobilinogen <2.0 (<2.0) mg/dL Ur Leukocyte Esterase Negative (Negative) Influenza Type A RNA (Not Detectd) Influenza Type B (PCR) (Not Detectd) - Radiology Data Radiology results: report reviewed (X-ray does show evidence a right lower lobe infiltrate.), image reviewed Disposition Clinical Impression: Pneumonia, Bronchospasm, acute, Hypoxemia, Chronic anemia, Febrile illness, acute, Elevated troponin, Failure of outpatient treatment Disposition: ADMITTED IP TO THIS HOSP Condition: Stable
[2016-05-19 10:46] LABS: Anisocytosis Slight; Basophils % (A) 0 %; CH 23.4; CHCM 28.1; Eosinophils % (A) 0 %; HCT 27.8 % (34.0-46.0); HDW 3.89; HGB 7.9 gm/dL (11.4-16.0); Hypochromasia Marked; Luc # (Auto) 0.11; Luc % (Auto) 1; Lymphocytes # (A) 0.3 k/uL (1.0-4.8); Lymphocytes % (A) 2 %; MCH 23.7 pg (25.0-35.0); MCHC 28.4 g/dL (31.0-37.0); MCV 83.5 fL (80.0-100.0); Mean Platelet Volume 8.7; Monocytes # (A) 0.5 k/uL (0-1.0); Monocytes % (A) 3 %; Neutrophils # (A) 15.4 k/uL (1.3-7.7); Neutrophils % (A) 94 %; Poikilocytosis Slight; RBC 3.33 m/uL (3.80-5.40); WBC 16.4 k/uL (3.8-10.6)
[2016-05-19 10:49] LABS: INR 2.8 (<1.1); Partial Thromboplastin Time 27.1 sec (22.0-30.0); Prothrombin Time 26.5 sec (9.0-12.0)
[2016-05-19 10:55] LABS: ALT 30 U/L (9-52); AST 19 U/L (14-36); Alkaline Phosphatase 53 U/L (38-126); Anion Gap 8 mmol/L; Blood Urea Nitrogen 30 mg/dL (7-17); Calcium 8.3 mg/dL (8.4-10.2); Carbon Dioxide 28 mmol/L (22-30); Chloride 102 mmol/L (98-107); Glucose 147 mg/dL (74-99); Magnesium 1.7 mg/dL (1.6-2.3); Non-African American GFR(MDRD) >60 (>60 ml/min/1.73 sqM); Potassium 4.6 mmol/L (3.5-5.1); Sodium 138 mmol/L (137-145); Total Bilirubin 0.5 mg/dL (0.2-1.3); Total Protein 5.7 g/dL (6.3-8.2)
[2016-05-19] MEDS ORDERED: HYDROcodone/APAP 7.5-325MG 1 EACH TAB PO ONE (11:00)
[2016-05-19 11:03] LABS: Creatine Kinase <20 U/L (30-135)
[2016-05-19 11:07] LABS: Appearance,Urine Clear (Clear); Bilirubin,Urine Negative (Negative); Glucose,Urine (UA) Negative (Negative); Ketones,Urine Negative (Negative); Leukocyte Esterase,Urine Negative (Negative); Nitrite,Urine Negative (Negative); PH, Urine 6.5 (5.0-8.0); Protein,Urine Trace (Negative); Specific Gravity,Urine 1.011 (1.001-1.035); UA Billing (MACRO vs. MICRO) CHEM; Urobilinogen,Urine <2.0 mg/dL (<2.0)
[2016-05-19 11:14] LABS: Creatine Kinase MB <0.2 ng/mL (0.0-2.4)
[2016-05-19 11:18] LABS: Troponin I 0.071 ng/mL (0.000-0.034)
--- NOTE | 2016-05-19 11:26 | XR ---
EXAMINATION TYPE: XR chest 2V DATE OF EXAM: 05/19/2016 11:16 AM COMPARISON: 05/08/2016 HISTORY: Shortness of breath TECHNIQUE: Frontal and lateral views of the chest are obtained. FINDINGS: Scattered senescent parenchymal changes noted. Hyperinflation compatible with COPD. There is cardiomegaly with pulmonary venous congestion. Patchy density right lower lobe may reflect d eveloping infiltrate. Mediastinal structures are stable and grossly unremarkable. No evidence for hilar prominence. Degenerative changes dorsal spine. IMPRESSION: 1. There is cardiomegaly with pulmonary venous congestion. Patchy density right lower lobe may reflec t developing infiltrate.
[2016-05-19] MEDS ORDERED: LEVOFLOXACIN 750MG-D5W PMX 750 MG in DEXTROSE/WATER 1 150ML.BAG IVPB STA (11:44)
[2016-05-19] MEDS ORDERED: PNEUMONIA PROTOCOL UTILIZED 1 EACH MISC PO PRN (12:22)
[2016-05-19 13:35] LABS: Hemoglobin A1C 7.2 % (4.2-6.1)
[2016-05-19] MEDS ORDERED: HYDROcodone/APAP 10-325MG 1 EACH TAB PO STA (14:33)
[2016-05-19] MEDS: IPRATROPIUM-ALBUTEROL 3 ML NEB INHALATION SCH ×3 (15:21→23:57)
[2016-05-19] MEDS: INSULIN LISPRO (humaLOG) 300 UNIT/3 ML VIAL SQ SCH ×5 (16:27→20:34)
[2016-05-19] MEDS: SODIUM CHLORIDE 0.9% 1,000 ML IV SCH (16:27)
[2016-05-19] MEDS: FUROSEMIDE 40 MG TAB PO SCH (16:51)
[2016-05-19 17:13] LABS: Glucose,Whole Blood 105 mg/dL (75-99)
[2016-05-19] MEDS: LOSARTAN 50 MG TAB PO SCH (20:02)
[2016-05-19] MEDS: ALPRAZolam 0.25 MG TAB PO SCH (20:02)
[2016-05-19] MEDS: METOPROLOL SUCCINATE (ER) 100 MG TAB.ER.24H PO SCH (20:02)
[2016-05-19] MEDS: PRAVASTATIN SODIUM 20 MG TAB PO SCH (20:03)
[2016-05-19] MEDS: MONTELUKAST 10 MG TAB PO SCH (20:03)
[2016-05-19] MEDS: INSULIN DETEMIR 100 UNIT/ML 10 ML VIAL SQ SCH (20:33)
[2016-05-19 20:35] LABS: Glucose,Whole Blood 265 mg/dL (75-99)
[2016-05-19] MEDS: HYDROcodone/APAP 10-325MG 1 EACH TAB PO PRN (22:22)
[2016-05-20] MEDS: IPRATROPIUM-ALBUTEROL 3 ML NEB INHALATION SCH ×5 (04:13→19:59)
[2016-05-20] MEDS: SODIUM CHLORIDE 0.9% 1,000 ML IV SCH (04:19)
[2016-05-20 06:18] LABS: Glucose,Whole Blood 103 mg/dL (75-99)
[2016-05-20] MEDS ORDERED: SODIUM CHLORIDE 0.9% 1,000 ML IV SCH (06:45)
[2016-05-20] MEDS: HYDROcodone/APAP 10-325MG 1 EACH TAB PO PRN ×4 (07:18→21:40)
[2016-05-20] MEDS: INSULIN LISPRO (humaLOG) 300 UNIT/3 ML VIAL SQ SCH ×7 (07:19→21:36)
[2016-05-20] MEDS: ALPRAZolam 0.25 MG TAB PO SCH ×2 (08:32→21:41)
[2016-05-20] MEDS: INSULIN DETEMIR 100 UNIT/ML 10 ML VIAL SQ SCH ×2 (08:33→21:36)
[2016-05-20] MEDS: METOPROLOL SUCCINATE (ER) 100 MG TAB.ER.24H PO SCH ×2 (08:33→21:42)
[2016-05-20] MEDS: FUROSEMIDE 40 MG TAB PO SCH ×2 (08:33→14:36)
[2016-05-20] MEDS ORDERED: DIGOXIN 250 MCG TAB PO SCH (09:00)
[2016-05-20] MEDS ORDERED: DILTIAZEM CD 240 MG CAP.ER.24H PO SCH (09:00)
[2016-05-20 09:13] LABS: Anisocytosis Slight; Basophils % (A) 0 %; CH 23.6; Eosinophils % (A) 0 %; HCT 27.6 % (34.0-46.0); HDW 3.69; HGB 7.6 gm/dL (11.4-16.0); Hypochromasia Marked; Luc # (Auto) 0.15; Luc % (Auto) 1; Lymphocytes # (A) 0.5 k/uL (1.0-4.8); Lymphocytes % (A) 4 %; MCH 23.3 pg (25.0-35.0); MCV 84.5 fL (80.0-100.0); Mean Platelet Volume 9.2; Monocytes # (A) 0.3 k/uL (0-1.0); Monocytes % (A) 3 %; Neutrophils # (A) 11.1 k/uL (1.3-7.7); Neutrophils % (A) 92 %; Poikilocytosis Slight; RBC 3.26 m/uL (3.80-5.40); RDW 18.4 % (11.5-15.5); WBC 12.1 k/uL (3.8-10.6); WBC (Perox) 12.37
[2016-05-20 09:18] LABS: INR 2.1 (<1.1); Prothrombin Time 20.2 sec (9.0-12.0)
[2016-05-20 09:25] LABS: MCHC 27.6 g/dL (31.0-37.0)
[2016-05-20 09:28] LABS: ALT 29 U/L (9-52); AST 11 U/L (14-36); Alkaline Phosphatase 52 U/L (38-126); Anion Gap 8 mmol/L; Blood Urea Nitrogen 25 mg/dL (7-17); Calcium 8.1 mg/dL (8.4-10.2); Carbon Dioxide 29 mmol/L (22-30); Chloride 104 mmol/L (98-107); Glucose 78 mg/dL (74-99); Non-African American GFR(MDRD) >60 (>60 ml/min/1.73 sqM); Potassium 4.2 mmol/L (3.5-5.1); Sodium 141 mmol/L (137-145); Total Bilirubin 0.4 mg/dL (0.2-1.3); Total Protein 5.2 g/dL (6.3-8.2)
[2016-05-20] MEDS ORDERED: FUROSEMIDE 10 MG/ML 2 ML VIAL IV ONE (10:01)
--- NOTE | 2016-05-20 10:38 | P.HPIM ---
History of Present Illness H&P Date: 05/20/16 Chief Complaint: Cough with fever This is a 76-year-old female with a known past medical history of chronic atrial fibrillation, diabetes mellitus, congestive heart failure. Patient had recent hospitalization in the beginning of April with left leg ischemia status post thrombectomy, pneumonia, COPD exacerbation, GI bleed and CHF exacerbation. Patient was discharged to [facility]. She returns to the hospital with complaints of cough, fever, generalized weakness and lethargy. She also complains and decrease in appetite. Patient also reports having difficulty urinating with burning with urination. Urinalysis is negative. Post-voids have been ordered. Patient had a chest x-ray showing cardiomegaly with peripheral vascular congestion and patchy density in the right lower lobe. She was started on Levaquin. Pulmonary service has been consulted. She was found have evidence of sepsis with a temp of 102, white count 16.4 and a lactic acid of 2.1. She was given IV fluid bolus in the emergency room. Cardiology was consulted for cardiac causes. Her EKG shows atrial fibrillation with a heart rate of 55. Telemetry has shown 2 second to 3 second cardiac causes. Also she had a troponin elevated at 0.071. Patient reports productive cough with yellowish sputum. She denies any chest pain. Does have some shortness of breath. Denies any nausea or vomiting. Denies any bowel movement changes. Review of Systems Please refer to HPI otherwise unremarkable. Patient reports no blood in her stools. Past Medical History Past Medical History: Atrial Fibrillation, Asthma, Heart Failure, CVA/TIA, Diabetes Mellitus, Deep Vein Thrombosis (DVT), GI Bleed, Hyperlipidemia, Hypertension, Pneumonia Additional Past Medical History / Comment(s): Pt was recently admitted 04/27/16 with L leg ischemia, aucte blood loss anemia-suspect lower GI bleed, acute on chronic CHF, pneumonia with sepsis, exacerbation COPD. Other hx; CVAs-if tired will have slight speech change and chokes easily, chronic CHF, IDDM type II, bilateral cataracts, chronic anemia, 2015 vented for 3 months. History of Any Multi-Drug Resistant Organisms: MRSA Date of last positivie culture/infection: 05/12/16 MDRO Source:: sputum Past Surgical History: Back Surgery, Breast Surgery, Hysterectomy Additional Past Surgical History / Comment(s): 05/18/16 thrombectomy/ endartectomy L common femoral artery, thoracic surgery in which a drainage tube was placed in her R lung due to pneumothorax, cyst removed from breast, L hip pain stimulator, EGD 03/2016 at [facility], melanoma removals. Past Anesthesia/Blood Transfusion Reactions: No Reported Reaction Additional Past Anesthesia/Blood Transfusion Reaction / Comment(s): Pt received blood with last admission without reaction. Past Psychological History: No Psychological Hx Reported Additional Psychological History / Comment(s): Pt currently living at [facility]. She just started standing with rails and assist. She is very weak. Smoking Status: Former smoker Past Alcohol Use History: None Reported Additional Past Alcohol Use History / Comment(s): Pt started smoking in 1961 and quit in 2014 Past Drug Use History: None Reported - Past Family History Mother Family Medical History: Diabetes Mellitus Father Additional Family Medical History / Comment(s): Father had heart problems. Medications and Allergies Home Medications Medication Instructions Recorded Confirmed Type ALPRAZolam [Xanax] 0.25 mg PO BID 04/27/16 05/19/16 History Diltiazem Cd [Cardizem CD] 240 mg PO DAILY 04/27/16 05/19/16 History Furosemide [Lasix] 20 mg PO DAILY@1300 04/27/16 05/19/16 History Furosemide [Lasix] 40 mg PO DAILY 04/27/16 05/19/16 History Insulin Detemir [Levemir] 23 unit SQ HS 04/27/16 05/19/16 History Insulin Detemir [Levemir] 53 unit SQ DAILY 04/27/16 05/19/16 History Losartan Potassium [Cozaar] 50 mg PO HS 04/27/16 05/19/16 History Metoprolol Succinate [Toprol XL] 200 mg PO BID 04/27/16 05/19/16 History Montelukast Sodium [Singulair] 10 mg PO HS 04/27/16 05/19/16 History Pravastatin Sodium [Pravachol] 20 mg PO HS 04/27/16 05/19/16 History HYDROcodone/APAP 10-325MG [[place] 1 tab PO BID@0800,2000 05/19/16 05/19/16 History 10-325] HYDROcodone/APAP 10-325MG [[place] 1 tab PO Q4HR PRN 05/19/16 05/19/16 History 10-325] INSULIN LISPRO (humaLOG) [humaLOG 8 unit SQ DAILY@1630 05/19/16 05/19/16 History (formulary)] INSULIN LISPRO (humaLOG) [humaLOG 12 unit SQ BID@0730,1230 05/19/16 05/19/16 History (formulary)] predniSONE 30 mg PO DIRECTED 05/19/16 05/19/16 History Allergies Allergy/AdvReac Type Severity Reaction Status Date / Time Penicillins Allergy Rash/Hives Verified 04/27/16 01:09 Physical Exam Vitals: Vital Signs Temp Pulse Pulse Pulse Resp BP BP 05/20/16 09:08 72 05/20/16 08:58 70 05/20/16 08:00 97 F L 79 18 05/20/16 04:22 59 L 05/20/16 04:13 62 05/20/16 04:00 97.1 F L 64 18 05/20/16 00:17 54 L 05/20/16 00:00 79 18 125/70 05/19/16 23:57 50 L 05/19/16 20:18 65 05/19/16 20:03 65 05/19/16 20:00 97 F L 64 18 05/19/16 17:00 98.0 F 64 52 L 18 105/46 05/19/16 16:07 97.1 F L 50 L 20 159/60 05/19/16 15:31 40 L 05/19/16 15:22 43 L 05/19/16 14:35 98.0 F 54 L 18 116/53 05/19/16 13:22 60 18 116/53 05/19/16 12:27 97.8 F 52 L 18 116/53 BP Pulse Ox 05/20/16 09:08 05/20/16 08:58 05/20/16 08:00 150/61 95 05/20/16 04:22 05/20/16 04:13 05/20/16 04:00 128/52 92 L 05/20/16 00:17 05/20/16 00:00 95 05/19/16 23:57 05/19/16 20:18 05/19/16 20:03 05/19/16 20:00 117/53 95 05/19/16 17:00 94 L 05/19/16 16:07 05/19/16 15:31 05/19/16 15:22 05/19/16 14:35 98 05/19/16 13:22 92 L 05/19/16 12:27 94 L Intake and Output 05/19/16 05/20/16 05/20/16 22:59 06:59 14:59 Intake Total 1905 Balance 190 Intake: Intake, IV Titration 1905 Amount Levofloxacin 750Mg-D5w 150 Pmx 750 mg In Dextrose/ Water 1 150ml.bag @ 100 mls/hr IVPB ONCE STA Rx#: [id number] Sodium Chloride 0.9% 1, 755 000 ml @ 100 mls/hr IV . Q10H SHARONDA Rx#:[id number] Sodium Chloride 0.9% 1, 1000 000 ml @ 999 mls/hr IV . Q1H1M STA Rx#:[id number] Other: Voiding Method Bedpan Bedpan Bedpan Diaper Diaper Diaper # Voids 2 2 Weight 117.5 kg Head normocephalic Neck supple Lungs coarse breath sounds bilaterally with crackles upper airway congestion noted Heart regular rate and rhythm S1-S2, no rub or gallop Abdomen is soft tender in suprapubic area. Positive bowel sounds Extremities no edema bilateral lower extremities. Tenderness to palpation of legs Neuro alert and orientated to 3 Results CBC & Chem 7: 05/20/16 09:00 05/20/16 09:00 Labs: Abnormal Lab Results - Last 24 Hours (Table) 05/19/16 05/19/16 05/19/16 Range/Units 12:26 17:08 20:34 WBC (3.8-10.6) k/uL RBC (3.80-5.40) m/uL Hgb (11.4-16.0) gm/dL Hct (34.0-46.0) % MCH (25.0-35.0) pg MCHC (31.0-37.0) g/dL RDW (11.5-15.5) % Neutrophils # (1.3-7.7) k/uL Lymphocytes # (1.0-4.8) k/uL PT (9.0-12.0) sec BUN (7-17) mg/dL POC Glucose (mg/dL) 105 H 265 H (75-99) mg/dL Hemoglobin A1c 7.2 H (4.2-6.1) % Calcium (8.4-10.2) mg/dL AST (14-36) U/L Total Protein (6.3-8.2) g/dL Albumin (3.5-5.0) g/dL 05/20/16 05/20/16 05/20/16 Range/Units 06:18 09:00 09:00 WBC 12.1 H (3.8-10.6) k/uL RBC 3.26 L (3.80-5.40) m/uL Hgb 7.6 L (11.4-16.0) gm/dL Hct 27.6 L (34.0-46.0) % MCH 23.3 L (25.0-35.0) pg MCHC 27.6 L (31.0-37.0) g/dL RDW 18.4 H (11.5-15.5) % Neutrophils # 11.1 H (1.3-7.7) k/uL Lymphocytes # 0.5 L (1.0-4.8) k/uL PT 20.2 H (9.0-12.0) sec BUN (7-17) mg/dL POC Glucose (mg/dL) 103 H (75-99) mg/dL Hemoglobin A1c (4.2-6.1) % Calcium (8.4-10.2) mg/dL AST (14-36) U/L Total Protein (6.3-8.2) g/dL Albumin (3.5-5.0) g/dL 05/20/16 Range/Units 09:00 WBC (3.8-10.6) k/uL RBC (3.80-5.40) m/uL Hgb (11.4-16.0) gm/dL Hct (34.0-46.0) % MCH (25.0-35.0) pg MCHC (31.0-37.0) g/dL RDW (11.5-15.5) % Neutrophils # (1.3-7.7) k/uL Lymphocytes # (1.0-4.8) k/uL PT (9.0-12.0) sec BUN 25 H (7-17) mg/dL POC Glucose (mg/dL) (75-99) mg/dL Hemoglobin A1c (4.2-6.1) % Calcium 8.1 L (8.4-10.2) mg/dL AST 11 L (14-36) U/L Total Protein 5.2 L (6.3-8.2) g/dL Albumin 2.5 L (3.5-5.0) g/dL Thrombosis Risk Factor Assmnt - Choose All That Apply Any of the Below Risk Factors Present?: Yes Each Factor Represents 1 point: Heart failure (<1month), Medical pt on bed rest , Serious lung disease incl. pneumonia (< 1month) Other Risk Factors: Yes Each Risk Factor Represents 2 Points: Malignancy Each Risk Factor Represents 3 Points: Age 75 years or older, History of DVT/PE Other congenital or acquired thrombophilia - If yes, enter type in comment: No Thrombosis Risk Factor Assessment Total Risk Factor Score: 11 Thrombosis Risk Factor Assessment Level: High Risk Assessment and Plan Plan: 1. Pneumonia with sepsis: Chest x-ray showing cardiomegaly with peripheral vascular congestion and patchy density in the right lower lobe. Also elevated temp of 102, white count 16.4 and lactic acid of 2.1. Patient is on Levaquin. Pulmonary service consulted. Influenza screen negative 2. Acute on chronic systolic CHF exacerbation. Most recent echo shows an EF of 40-45%. BNP elevated in the 3000's. Chest x-ray showing peripheral vascular congestion. We'll give patient 1 dose of IV Lasix 20 mg. We'll await evaluation by cardiology and pulmonary service 3. Cardiac causes. Continue with telemetry monitoring. Cardiology has been consulted. 4. Possible urinary retention. Check bladder scan. Urinalysis is negative. 5. Elevated troponin with no chest pain. Will await cardiology evaluation. 6. Acute anemia secondary to chronic blood loss and suspected lower GI bleed. Hemoglobin is 7.9. Was unable to have a colonoscopy during last admission due to multiple complications. She had a EGD last month at [facility] [place] that was unremarkable. We'll continue to monitor hemoglobin. 7. Chronic atrial fibrillation maintained on Coumadin for anticoagulation. INR is therapeutic. Monitor PT/INRs closely due to Coumadin and Levaquin interaction. 8. History of COPD: Continue with nebulizer treatments. 9. Diabetes mellitus insulin-dependent: Resume her Levemir and NovoLog. Continue sliding scale coverage. Hemoglobin A1c of 7.2 GI prophylaxis Protonix and DVT prophylaxis Coumadin Time with Patient: Greater than 30 (Greater than 50% of the total time spent in counseling and coordination of care.I performed an examination of the patient and discussed their management with the physician Game Artist. I have reviewed the Physician Game Artist's notes and agree with the documented findings and plan of care)
[2016-05-20] MEDS: PANTOPRAZOLE 40 MG TABLET PO SCH (11:10)
[2016-05-20] MEDS: LEVOFLOXACIN 750 MG TAB PO SCH (11:10)
--- NOTE | 2016-05-20 11:29 | P.CNPUL ---
History of Present Illness Consult date: 05/20/16 Requesting physician: Elda Parrish Reason for consult: pneumonia Chief complaint: shortness of breath History of present illness: this is a 76-year-old female patient who is being evaluated and examined today on the sixth floor. This patient is well known to our service. This patient recently was hospitalized in April with a left leg ischemia status post thrombectomy, pneumonia, COPD exacerbation, GI bleed, and CHF exacerbation. The patient was subsequently discharged to [facility]. She came back to the emergency room with some shortness of breath, cough, fever, generalized weakness and lethargy. She also states she has been having some difficulty with urination. the patient's chest x-ray has been reviewed and does show cardiomegaly with peripheral vascular congestion and patchy density in the right lower lobe. The patient was admitted with pneumonia, bronchospasms, acute hypoxemia, chronic anemia, febrile illness and elevated troponins. This patient is known to have chronic hypoxia and uses 3 L of oxygen at the rehab facility as well as she wears CPAP for obstructive sleep apnea. upon examination the patient is resting up in bed on 4 L of oxygen via nasal cannula she continues to have shortness of breath with any exertion or extensive conversation. She denies any productive cough at this time. Review of Systems 14 point review of systems was completed and is negative other than what is noted in the HPI. Past Medical History Past Medical History: Atrial Fibrillation, Asthma, Heart Failure, CVA/TIA, Diabetes Mellitus, Deep Vein Thrombosis (DVT), GI Bleed, Hyperlipidemia, Hypertension, Pneumonia Additional Past Medical History / Comment(s): Pt was recently admitted 04/27/16 with L leg ischemia, aucte blood loss anemia-suspect lower GI bleed, acute on chronic CHF, pneumonia with sepsis, exacerbation COPD. Other hx; CVAs-if tired will have slight speech change and chokes easily, chronic CHF, IDDM type II, bilateral cataracts, chronic anemia, 2015 vented for 3 months. History of Any Multi-Drug Resistant Organisms: MRSA Date of last positivie culture/infection: 05/12/16 MDRO Source:: sputum Past Surgical History: Back Surgery, Breast Surgery, Hysterectomy Additional Past Surgical History / Comment(s): 05/18/16 thrombectomy/ endartectomy L common femoral artery, thoracic surgery in which a drainage tube was placed in her R lung due to pneumothorax, cyst removed from breast, L hip pain stimulator, EGD 03/2016 at [facility], melanoma removals. Past Anesthesia/Blood Transfusion Reactions: No Reported Reaction Additional Past Anesthesia/Blood Transfusion Reaction / Comment(s): Pt received blood with last admission without reaction. Past Psychological History: No Psychological Hx Reported Additional Psychological History / Comment(s): Pt currently living at [facility]. She just started standing with rails and assist. She is very weak. Smoking Status: Former smoker Past Alcohol Use History: None Reported Additional Past Alcohol Use History / Comment(s): Pt started smoking in 1961 and quit in 2014 Past Drug Use History: None Reported - Past Family History Mother Family Medical History: Diabetes Mellitus Father Additional Family Medical History / Comment(s): Father had heart problems. Medications and Allergies Home Medications Medication Instructions Recorded Confirmed Type ALPRAZolam [Xanax] 0.25 mg PO BID 04/27/16 05/19/16 History Diltiazem Cd [Cardizem CD] 240 mg PO DAILY 04/27/16 05/19/16 History Furosemide [Lasix] 20 mg PO DAILY@1300 04/27/16 05/19/16 History Furosemide [Lasix] 40 mg PO DAILY 04/27/16 05/19/16 History Insulin Detemir [Levemir] 23 unit SQ HS 04/27/16 05/19/16 History Insulin Detemir [Levemir] 53 unit SQ DAILY 04/27/16 05/19/16 History Losartan Potassium [Cozaar] 50 mg PO HS 04/27/16 05/19/16 History Metoprolol Succinate [Toprol XL] 200 mg PO BID 04/27/16 05/19/16 History Montelukast Sodium [Singulair] 10 mg PO HS 04/27/16 05/19/16 History Pravastatin Sodium [Pravachol] 20 mg PO HS 04/27/16 05/19/16 History HYDROcodone/APAP 10-325MG [[place] 1 tab PO BID@0800,2000 05/19/16 05/19/16 History 10-325] HYDROcodone/APAP 10-325MG [[place] 1 tab PO Q4HR PRN 05/19/16 05/19/16 History 10-325] INSULIN LISPRO (humaLOG) [humaLOG 8 unit SQ DAILY@1630 05/19/16 05/19/16 History (formulary)] INSULIN LISPRO (humaLOG) [humaLOG 12 unit SQ BID@0730,1230 05/19/16 05/19/16 History (formulary)] predniSONE 30 mg PO DIRECTED 05/19/16 05/19/16 History Warfarin Sodium [Coumadin] 2 mg PO 05/20/16 History Allergies Allergy/AdvReac Type Severity Reaction Status Date / Time Penicillins Allergy Rash/Hives Verified 04/27/16 01:09 Physical Exam Vitals: Vital Signs Temp Pulse Pulse Pulse Resp BP BP 05/20/16 11:06 77 18 05/20/16 09:08 72 05/20/16 08:58 70 05/20/16 08:00 97 F L 79 18 05/20/16 04:22 59 L 05/20/16 04:13 62 05/20/16 04:00 97.1 F L 64 18 05/20/16 00:17 54 L 05/20/16 00:00 79 18 125/70 05/19/16 23:57 50 L 05/19/16 20:18 65 05/19/16 20:03 65 05/19/16 20:00 97 F L 64 18 05/19/16 17:00 98.0 F 64 52 L 18 105/46 05/19/16 16:07 97.1 F L 50 L 20 159/60 05/19/16 15:31 40 L 05/19/16 15:22 43 L 05/19/16 14:35 98.0 F 54 L 18 116/53 05/19/16 13:22 60 18 116/53 05/19/16 12:27 97.8 F 52 L 18 116/53 BP Pulse Ox 05/20/16 11:06 148/50 96 05/20/16 09:08 05/20/16 08:58 05/20/16 08:00 150/61 95 05/20/16 04:22 05/20/16 04:13 05/20/16 04:00 128/52 92 L 05/20/16 00:17 05/20/16 00:00 95 05/19/16 23:57 05/19/16 20:18 05/19/16 20:03 05/19/16 20:00 117/53 95 05/19/16 17:00 94 L 05/19/16 16:07 05/19/16 15:31 05/19/16 15:22 05/19/16 14:35 98 05/19/16 13:22 92 L 05/19/16 12:27 94 L Intake and Output 05/19/16 05/20/16 05/20/16 22:59 06:59 14:59 Intake Total 1904 Balance 1904 Intake: Intake, IV Titration 1904 Amount Levofloxacin 750Mg-D5w 150 Pmx 750 mg In Dextrose/ Water 1 150ml.bag @ 100 mls/hr IVPB ONCE STA Rx#: [id number] Sodium Chloride 0.9% 1, 755 000 ml @ 100 mls/hr IV . Q10H SHARONDA Rx#:[id number] Sodium Chloride 0.9% 1, 1000 000 ml @ 999 mls/hr IV . Q1H1M STA Rx#:[id number] Other: Voiding Method Bedpan Bedpan Bedpan Diaper Diaper Diaper # Voids 2 2 Weight 117.5 kg GENERAL EXAM: Alert, active, comfortable in no apparent distress. HEAD: Normocephalic. EYES: Normal reaction of pupils, equal size. NOSE: Clear with pink turbinates. THROAT: No erythema or exudates. NECK: No masses, no JVD. CHEST: No chest wall deformity. LUNGS: lungs noted to be bilateral Shorty coarse, with scattered rhonchi and crackles. CVS: S1 and S2 normal with no audible mumurs, regular rhythm. ABDOMEN: No hepatosplenomegaly, normal bowel sounds, no guarding or rigidity. EXTREMITIES: trace edema noted, pedal pulses palpable. SKIN: No rashes CENTRAL NERVOUS SYSTEM: No focal deficits, tone is normal in all 4 extremities. Results - Laboratory Findings CBC and BMP: 05/20/16 09:00 05/20/16 09:00 PT/INR, D-dimer PT 20.2 sec (9.0-12.0) H 05/20/16 09:00 INR 2.1 (<1.1) 05/20/16 09:00 Abnormal lab findings: Abnormal Labs 05/19/16 05/19/16 05/19/16 12:26 17:08 20:34 WBC RBC Hgb Hct MCH MCHC RDW Neutrophils # Lymphocytes # PT BUN POC Glucose (mg/dL) 105 H 265 H Hemoglobin A1c 7.2 H Calcium AST Total Protein Albumin 05/20/16 05/20/16 05/20/16 06:18 09:00 09:00 WBC 12.1 H RBC 3.26 L Hgb 7.6 L Hct 27.6 L MCH 23.3 L MCHC 27.6 L RDW 18.4 H Neutrophils # 11.1 H Lymphocytes # 0.5 L PT 20.2 H BUN POC Glucose (mg/dL) 103 H Hemoglobin A1c Calcium AST Total Protein Albumin 05/20/16 09:00 WBC RBC Hgb Hct MCH MCHC RDW Neutrophils # Lymphocytes # PT BUN 25 H POC Glucose (mg/dL) Hemoglobin A1c Calcium 8.1 L AST 11 L Total Protein 5.2 L Albumin 2.5 L Assessment and Plan Plan: assessment Pneumonia with sepsis Acute exacerbation of chronic obstructive pulmonary disease Acute on chronic systolic congestive heart failure exacerbation Elevated troponins Acute anemia secondary to chronic blood loss and suspected lower GI bleed Chronic atrial fibrillation Diabetes mellitus insulin-dependent Plan Medications have been reviewed and will be continued as ordered. We will add IV steroids. Cardiology is also on consult. Continue with supportive care. We will continue to monitor labs and adjust treatment as necessary. I performed an examination of the patient and discussed their management with the nurse practitioner. I have reviewed the nurse practitioner's note and agree with the documented findings and plan of care.
[2016-05-20 12:08] LABS: Glucose,Whole Blood 56 mg/dL (75-99)
[2016-05-20 12:33] LABS: Glucose,Whole Blood 63 mg/dL (75-99)
--- NOTE | 2016-05-20 12:33 | CONS ---
DATE OF CONSULTATION: CHIEF COMPLAINT: Shortness of breath and atrial fibrillation with slow ventricular rate. This is a 76-year-old lady with history of chronic atrial fibrillation, peripheral vascular disease, status post thrombectomy, cardiomyopathy, with moderate LV systolic dysfunction, severe COPD, hypertension, who is admitted to hospital with shortness of breath, fever, thought to be secondary to pneumonia with COPD exacerbation. Cardiology had been consulted because of episodes of sinus pauses. Patient has chronic atrial fibrillation, on this admission, has well controlled heart rate with a 2 to 3 seconds pauses. She is on multiple AV cristina blockers including digoxin, Cardizem, Toprol-XL, both Cardizem and Toprol are in large doses. Patient had an echo done at her last admission and had moderate LV systolic dysfunction. She is adequately anticoagulated with an INR that is therapeutic on Coumadin. I am going to stop the digoxin and Cardizem because of the bradycardia and if she behaves as a tachybrady syndrome, then she will need a permanent pacemaker. Past medical history is significant for cardiomyopathy, COPD, hypertension, dyslipidemia, and chronic atrial fibrillation and diabetes. Medications at home include Lasix, Cardizem, Lanoxin, Coumadin, Levemir, Cozaar, Pravachol, Singular, Xanax, Toprol, Pulmicort, DuoNeb, [place]. ALLERGIES: Allergic to PENICILLIN. Family history is negative for premature coronary artery disease. Social history is negative for current smoking, EtOH abuse, or drug abuse. REVIEW OF SYSTEMS: HEENT is unremarkable. CARDIAC: As described above. RESPIRATORY: As described above. GI: Negative. GENITOURINARY: Negative. MUSCULOSKELETAL: Significant for arthritis. PSYCHOSOCIAL: Negative. ENDOCRINE: Negative. DERMATOLOGY: Negative. CONSTITUTIONAL: Negative. ONCOLOGICAL: Negative. The rest of the system review is not relevant. On exam, comfortable at rest. Heart rate is 72 beats per minute, blood pressure is 148/50, respiratory rate is 18. Chest exam reveals occasional rhonchi with diminished air entry. Heart exam reveals first and second heart sounds, irregular rhythm, and a systolic murmur at the apex. Abdomen is soft. Exam of the extremities did not reveal any edema. Peripheral pulses are felt. Labs show a hemoglobin of 7.6, INR is 2.1, potassium is 4.2, creatinine is 0.7, BNP is 3920. Chest x-ray showed mild pulmonary congestion. ASSESSMENT: 1. Chronic atrial fibrillation with slow ventricular rate. 2. Chronic obstructive pulmonary disease exacerbation. 3. Acute exacerbation of chronic systolic heart failure. PLAN: I am going to stop the Cardizem and Lanoxin and will watch her on telemetry. She is already on diuretics, GAGE inhibitors and beta blockers. She is being treated with antibiotics, on Coumadin and maintain the INR of around 2 to 2.5.
[2016-05-20 13:05] LABS: Glucose,Whole Blood 101 mg/dL (75-99)
[2016-05-20 13:23] LABS: Glucose,Whole Blood 116 mg/dL (75-99)
--- NOTE | 2016-05-20 14:21 | XR ---
EXAMINATION TYPE: XR chest 2V DATE OF EXAM: 05/20/2016 2:10 PM HISTORY: pneumonia. REFERENCE: Previous study dated 05/19/2016. FINDINGS: There is increasing right lower lobe infiltrate. The heart is enlarged. There is blunting o f both CP angles. I could not exclude small effusions. IMPRESSION: 1. WORSENING RIGHT LOWER LOBE PNEUMONIA. 2. CARDIOMEGALY. 3. I CANNOT EXCLUDE SMALL, BILATERAL EFFUSIONS.
[2016-05-20 16:53] LABS: Glucose,Whole Blood 87 mg/dL (75-99)
[2016-05-20] MEDS: methylPREDNISolone SOD SUCCI 125 MG/2 ML VIAL IV SCH (17:16)
[2016-05-20] MEDS: WARFARIN 2 MG TAB PO SCH (17:17)
[2016-05-20] MEDS: BUDESONIDE 1 MG/2 ML NEBU INHALATION SCH (19:59)
[2016-05-20 21:30] LABS: Glucose,Whole Blood 177 mg/dL (75-99)
[2016-05-20] MEDS: LOSARTAN 50 MG TAB PO SCH (21:42)
[2016-05-20] MEDS: PRAVASTATIN SODIUM 20 MG TAB PO SCH (21:42)
[2016-05-20] MEDS: MONTELUKAST 10 MG TAB PO SCH (21:43)
[2016-05-21] MEDS: IPRATROPIUM-ALBUTEROL 3 ML NEB INHALATION SCH ×6 (00:45→20:10)
[2016-05-21 06:25] LABS: Glucose,Whole Blood 228 mg/dL (75-99)
[2016-05-21] MEDS: methylPREDNISolone SOD SUCCI 125 MG/2 ML VIAL IV SCH ×3 (06:33→17:00)
[2016-05-21] MEDS: PANTOPRAZOLE 40 MG TABLET PO SCH (06:37)
[2016-05-21 07:33] LABS: Anisocytosis Slight; Basophils % (A) 0 %; CH 23.7; CHCM 27.7; Eosinophils % (A) 0 %; HCT 28.6 % (34.0-46.0); HDW 3.63; HGB 7.8 gm/dL (11.4-16.0); Hypochromasia Marked; Luc # (Auto) 0.08; Luc % (Auto) 1; Lymphocytes # (A) 0.4 k/uL (1.0-4.8); Lymphocytes % (A) 3 %; MCH 23.2 pg (25.0-35.0); MCV 85.7 fL (80.0-100.0); Mean Platelet Volume 8.1; Monocytes # (A) 0.3 k/uL (0-1.0); Monocytes % (A) 2 %; Neutrophils # (A) 10.7 k/uL (1.3-7.7); Neutrophils % (A) 94 %; Poikilocytosis Slight; RBC 3.34 m/uL (3.80-5.40); RDW 18.3 % (11.5-15.5); WBC 11.4 k/uL (3.8-10.6); WBC (Perox) 12.23
[2016-05-21] MEDS: BUDESONIDE 1 MG/2 ML NEBU INHALATION SCH ×2 (07:38→20:10)
[2016-05-21 07:40] LABS: ALT 29 U/L (9-52); AST 17 U/L (14-36); Alkaline Phosphatase 54 U/L (38-126); Anion Gap 10 mmol/L; Blood Urea Nitrogen 32 mg/dL (7-17); Calcium 8.4 mg/dL (8.4-10.2); Carbon Dioxide 26 mmol/L (22-30); Chloride 101 mmol/L (98-107); Glucose 216 mg/dL (74-99); Non-African American GFR(MDRD) >60 (>60 ml/min/1.73 sqM); Potassium 4.8 mmol/L (3.5-5.1); Sodium 137 mmol/L (137-145); Total Bilirubin 0.5 mg/dL (0.2-1.3); Total Protein 5.5 g/dL (6.3-8.2)
[2016-05-21 07:48] LABS: MCHC 27.1 g/dL (31.0-37.0)
[2016-05-21 07:56] LABS: INR 1.7 (<1.1); Prothrombin Time 16.6 sec (9.0-12.0)
[2016-05-21] MEDS: INSULIN LISPRO (humaLOG) 300 UNIT/3 ML VIAL SQ SCH ×6 (07:57→20:52)
[2016-05-21] MEDS: INSULIN DETEMIR 100 UNIT/ML 10 ML VIAL SQ SCH ×2 (07:57→20:53)
[2016-05-21] MEDS: METOPROLOL SUCCINATE (ER) 100 MG TAB.ER.24H PO SCH ×2 (07:58→20:42)
[2016-05-21] MEDS: LEVOFLOXACIN 750 MG TAB PO SCH (07:58)
[2016-05-21] MEDS: ALPRAZolam 0.25 MG TAB PO SCH ×2 (07:59→20:41)
[2016-05-21] MEDS: FUROSEMIDE 40 MG TAB PO SCH ×2 (07:59→12:36)
--- NOTE | 2016-05-21 09:55 | P.PN ---
Subjective Principal diagnosis: A. fib with slow ventricular response This is a 76-year-old female with known history of chronic persistent atrial fibrillation, peripheral vascular disease, status post thrombectomy, COPD , hypertension, who was admitted to the hospital with symptoms of shortness of breath and associated fever thought to be secondary to pneumonia with COPD exacerbation. Cardiology consultation was requested because of episodes of pauses. Patient has known chronic persistent atrial fibrillation. Patient was on Lanoxin, Cardizem, Toprol. Patient did have an echo performed her last admission which revealed moderate LV systolic dysfunction. Patient was anticoagulated with a therapeutic INR and Coumadin. Cardizem and Lanoxin were discontinued yesterday. Patient continues to be on metoprolol tartrate 100 mg one tablet by mouth twice a day. Patient's heart rate this morning in the 50s, he continues to have mild intermittent pauses. Blood pressure this morning 150/ 60. We will add Norvasc to her medication regime for more optimal blood pressure control. Continue to monitor to see if the heart rate picks up now that she is off the Cardizem and dig. Objective - Vital Signs Vital signs: Vital Signs Temp 96.4 F L 05/21/16 08:00 Pulse 61 05/21/16 08:00 Resp 16 05/21/16 08:00 BP 150/60 05/21/16 08:00 Pulse Ox 95 05/21/16 08:00 Intake & Output 05/20/16 05/21/16 05/21/16 18:59 06:59 18:59 Intake Total 220 0 298 Balance 220 0 298 Weight 109.5 kg Intake: IV 0 Sodium Chloride 0.9% 1, 0 000 ml @ 20 mls/hr IV . Q24H SHARONDA Rx#:[id number] Intake, IV Titration 0 Amount Sodium Chloride 0.9% 1, 0 000 ml @ 20 mls/hr IV . Q24H SHARONDA Rx#:[id number] Oral 220 298 Other: Voiding Method Bedpan Bedpan Diaper Diaper # Voids 1 - Exam PHYSICAL EXAMINATION: HEENT: Head is atraumatic, normocephalic. Pupils equal, round. Neck is supple. There is no elevated jugular venous pressure. HEART EXAMINATION: Heart S1 and S2 irregularly irregular with systolic murmur. CHEST EXAMINATION: Lungs reveal scattered coarse rhonchi throughout. ABDOMEN: Soft, obese, nontender. Bowel sounds are heard. No organomegaly noted. EXTREMITIES: 1+ peripheral pulses with no evidence of peripheral edema and no calf tenderness noted. NEUROLOGIC patient is awake, alert and oriented -3. . - Labs CBC & Chem 7: 05/21/16 06:30 05/21/16 06:30 Labs: Abnormal Lab Results - Last 24 Hours (Table) 05/20/16 05/20/16 05/20/16 Range/Units 12:07 12:32 12:56 WBC (3.8-10.6) k/uL RBC (3.80-5.40) m/uL Hgb (11.4-16.0) gm/dL Hct (34.0-46.0) % MCH (25.0-35.0) pg MCHC (31.0-37.0) g/dL RDW (11.5-15.5) % Plt Count (150-450) k/uL Neutrophils # (1.3-7.7) k/uL Lymphocytes # (1.0-4.8) k/uL PT (9.0-12.0) sec BUN (7-17) mg/dL Glucose (74-99) mg/dL POC Glucose (mg/dL) 56 L 63 L 101 H (75-99) mg/dL Total Protein (6.3-8.2) g/dL Albumin (3.5-5.0) g/dL 05/20/16 05/20/16 05/21/16 Range/Units 13:17 21:26 06:17 WBC (3.8-10.6) k/uL RBC (3.80-5.40) m/uL Hgb (11.4-16.0) gm/dL Hct (34.0-46.0) % MCH (25.0-35.0) pg MCHC (31.0-37.0) g/dL RDW (11.5-15.5) % Plt Count (150-450) k/uL Neutrophils # (1.3-7.7) k/uL Lymphocytes # (1.0-4.8) k/uL PT (9.0-12.0) sec BUN (7-17) mg/dL Glucose (74-99) mg/dL POC Glucose (mg/dL) 116 H 177 H 228 H (75-99) mg/dL Total Protein (6.3-8.2) g/dL Albumin (3.5-5.0) g/dL 05/21/16 05/21/16 05/21/16 Range/Units 06:30 06:30 06:30 WBC 11.4 H (3.8-10.6) k/uL RBC 3.34 L (3.80-5.40) m/uL Hgb 7.8 L (11.4-16.0) gm/dL Hct 28.6 L (34.0-46.0) % MCH 23.2 L (25.0-35.0) pg MCHC 27.1 L (31.0-37.0) g/dL RDW 18.3 H (11.5-15.5) % Plt Count 146 L (150-450) k/uL Neutrophils # 10.7 H (1.3-7.7) k/uL Lymphocytes # 0.4 L (1.0-4.8) k/uL PT 16.6 H (9.0-12.0) sec BUN 32 H (7-17) mg/dL Glucose 216 H (74-99) mg/dL POC Glucose (mg/dL) (75-99) mg/dL Total Protein 5.5 L (6.3-8.2) g/dL Albumin 2.7 L (3.5-5.0) g/dL Assessment and Plan (1) Chronic a-fib Status: Acute (2) Sinus pause Status: Acute (3) Chronic anemia Status: Acute (4) Pneumonia Status: Acute (5) COPD (chronic obstructive pulmonary disease) Status: Acute (6) Peripheral arterial occlusive disease Status: Chronic (7) HTN (hypertension) Status: Acute Plan: From cardiology's perspective, we will continue to hold the patient's Lanoxin and Cardizem. We will add Norvasc for more optimal blood pressure control. We' ll also check patient's free T4 and TSH level. Continue to monitor to see if the heart rate picks up now that the patient is off the Cardizem and Lanoxin. DNP note has been reviewed, I agree with a documented findings and plan of care. Patient was seen and examined.
[2016-05-21] MEDS: HYDROcodone/APAP 10-325MG 1 EACH TAB PO PRN ×2 (10:27→15:02)
[2016-05-21 11:53] LABS: Glucose,Whole Blood 444 mg/dL (75-99)
--- NOTE | 2016-05-21 14:04 | P.PN ---
Subjective Principal diagnosis: Pneumonia with sepsis Patient is a 76-year-old female who was readmitted to [facility] due to fever cough and worsening shortness of breath She had evidence of pneumonia with sepsis, she also had evidence of anemia was hemoglobin of 7.8, evidence of acute congestive heart failure exacerbation, she has known history of atrial fibrillation. Since yesterday patient reports some improvement in her cough and her shortness of breath, she remains very weak and fatigued. Objective - Vital Signs Vital signs: Vital Signs Temp 96.4 F L 05/21/16 08:00 Pulse 68 05/21/16 12:00 Resp 18 05/21/16 12:00 BP 144/72 05/21/16 12:00 Pulse Ox 96 05/21/16 12:00 Intake & Output 05/20/16 05/21/16 05/21/16 18:59 06:59 18:59 Intake Total 220 0 653 Balance 220 0 653 Weight 109.5 kg Intake: IV 0 Sodium Chloride 0.9% 1, 0 000 ml @ 20 mls/hr IV . Q24H SHARONDA Rx#:[id number] Intake, IV Titration 0 Amount Sodium Chloride 0.9% 1, 0 000 ml @ 20 mls/hr IV . Q24H SHARONDA Rx#:[id number] Oral 220 653 Other: Voiding Method Bedpan Bedpan Bedpan Diaper Diaper Diaper # Voids 1 - Exam In general patient is alert and oriented 3 in no apparent distress HEENT head normocephalic and atraumatic Neck is supple no JVD no goiter no lymphadenopathy Chest exam reveals a scattered crackles in both lung olivares no wheezing Cardiac exam reveals regular heart sounds no murmurs Abdomen is soft nontender no organomegaly Extremity exam reveals no edema no cyanosis or clubbing - Labs CBC & Chem 7: 05/21/16 06:30 05/21/16 06:30 Labs: Abnormal Lab Results - Last 24 Hours (Table) 05/20/16 05/21/16 05/21/16 Range/Units 21:26 06:17 06:30 WBC 11.4 H (3.8-10.6) k/uL RBC 3.34 L (3.80-5.40) m/uL Hgb 7.8 L (11.4-16.0) gm/dL Hct 28.6 L (34.0-46.0) % MCH 23.2 L (25.0-35.0) pg MCHC 27.1 L (31.0-37.0) g/dL RDW 18.3 H (11.5-15.5) % Plt Count 146 L (150-450) k/uL Neutrophils # 10.7 H (1.3-7.7) k/uL Lymphocytes # 0.4 L (1.0-4.8) k/uL PT (9.0-12.0) sec BUN (7-17) mg/dL Glucose (74-99) mg/dL POC Glucose (mg/dL) 177 H 228 H (75-99) mg/dL Total Protein (6.3-8.2) g/dL Albumin (3.5-5.0) g/dL Free T4 (0.78-2.19) ng/dL 05/21/16 05/21/16 05/21/16 Range/Units 06:30 06:30 06:30 WBC (3.8-10.6) k/uL RBC (3.80-5.40) m/uL Hgb (11.4-16.0) gm/dL Hct (34.0-46.0) % MCH (25.0-35.0) pg MCHC (31.0-37.0) g/dL RDW (11.5-15.5) % Plt Count (150-450) k/uL Neutrophils # (1.3-7.7) k/uL Lymphocytes # (1.0-4.8) k/uL PT 16.6 H (9.0-12.0) sec BUN 32 H (7-17) mg/dL Glucose 216 H (74-99) mg/dL POC Glucose (mg/dL) (75-99) mg/dL Total Protein 5.5 L (6.3-8.2) g/dL Albumin 2.7 L (3.5-5.0) g/dL Free T4 0.76 L (0.78-2.19) ng/dL 05/21/16 Range/Units 11:52 WBC (3.8-10.6) k/uL RBC (3.80-5.40) m/uL Hgb (11.4-16.0) gm/dL Hct (34.0-46.0) % MCH (25.0-35.0) pg MCHC (31.0-37.0) g/dL RDW (11.5-15.5) % Plt Count (150-450) k/uL Neutrophils # (1.3-7.7) k/uL Lymphocytes # (1.0-4.8) k/uL PT (9.0-12.0) sec BUN (7-17) mg/dL Glucose (74-99) mg/dL POC Glucose (mg/dL) 444 H (75-99) mg/dL Total Protein (6.3-8.2) g/dL Albumin (3.5-5.0) g/dL Free T4 (0.78-2.19) ng/dL Assessment and Plan Plan: 1. Pneumonia with sepsis: Chest x-ray showing cardiomegaly with peripheral vascular congestion and patchy density in the right lower lobe. Also elevated temp of 102, white count 16.4 and lactic acid of 2.1. Patient is on Levaquin. Pulmonary service consulted. Influenza screen negative 2. Acute on chronic systolic CHF exacerbation. Most recent echo shows an EF of 40-45%. BNP elevated in the 3000's. Chest x-ray showing peripheral vascular congestion. 3. Cardiac pauses. Continue with telemetry monitoring. Cardiology has been consulted. 4. Insulin-dependent diabetes mellitus, A1c is 7.2 continue was Levemir and NovoLog 5. Elevated troponin with no chest pain. Will await cardiology evaluation. 6. Acute anemia secondary to chronic blood loss and suspected lower GI bleed. Hemoglobin is 7.9. Was unable to have a colonoscopy during last admission due to multiple complications. She had a EGD last month at [facility] that was unremarkable. We'll continue to monitor hemoglobin. 7. Chronic atrial fibrillation maintained on Coumadin for anticoagulation. INR is therapeutic. Monitor PT/INRs closely due to Coumadin and Levaquin interaction. 8. History of COPD: Continue with nebulizer treatments.
[2016-05-21] MEDS ORDERED: SODIUM FERRIC GLUCONAT-SUCROSE 125 MG in SODIUM CHLORIDE 0.9% 100 ML IVPB ONE (14:15)
--- NOTE | 2016-05-21 16:03 | P.PN ---
Subjective This is a 76-year-old female patient who is being evaluated and examined today on the sixth floor. This patient is well-known to our service. This patient recently was hospitalized in April with a left leg ischemia status post thrombectomy, pneumonia, COPD exacerbation, GI bleed, and CHF exacerbation. The patient was subsequently discharged to [facility]. She came back to the emergency room with some shortness of breath, cough, fever, generalized weakness and lethargy. She also states that she had been having some difficulty with urination. The patient's chest x-ray has been reviewed and does show cardiomegaly and peripheral vascular congestion and patchy density in the right lower lobe. The patient was admitted with pneumonia, bronchospasms, acute hypoxia, chronic anemia, free bilateral illness and elevated troponins. The patient is known to have chronic hypoxia and uses 3 L of oxygen at the rehab facility as well and she wears CPAP for obstructive sleep apnea. Upon examination the patient is resting in bed up on 4 L of oxygen via nasal cannula she continues to have shortness of breath with exertion or extensive conversation. She denies any productive cough at this time Objective - Vital Signs Vital signs: Vital Signs Temp 96.4 F L 05/21/16 08:00 Pulse 68 05/21/16 12:00 Resp 18 05/21/16 12:00 BP 144/72 05/21/16 12:00 Pulse Ox 96 05/21/16 12:00 Intake & Output 05/20/16 05/21/16 05/21/16 18:59 06:59 18:59 Intake Total 220 0 653 Balance 220 0 653 Weight 109.5 kg Intake: IV 0 Sodium Chloride 0.9% 1, 0 000 ml @ 20 mls/hr IV . Q24H SHARONDA Rx#:[id number] Intake, IV Titration 0 Amount Sodium Chloride 0.9% 1, 0 000 ml @ 20 mls/hr IV . Q24H SHARONDA Rx#:[id number] Oral 220 653 Other: Voiding Method Bedpan Bedpan Bedpan Diaper Diaper Diaper # Voids 1 3 - Exam GENERAL EXAM: Alert, active, comfortable in no apparent distress. HEAD: Normocephalic. EYES: Normal reaction of pupils, equal size. NOSE: Clear with pink turbinates. THROAT: No erythema or exudates. NECK: No masses, no JVD. CHEST: No chest wall deformity. LUNGS: Lungs noted to be bilaterally coarse, with scattered rhonchi and crackles. CVS: S1 and S2 normal with no audible mumurs, regular rhythm. ABDOMEN: No hepatosplenomegaly, normal bowel sounds, no guarding or rigidity. EXTREMITIES: Trace edema noted, pedal pulses palpable. SKIN: No rashes CENTRAL NERVOUS SYSTEM: No focal deficits, tone is normal in all 4 extremities. - Labs CBC & Chem 7: 05/21/16 06:30 05/21/16 06:30 Labs: Abnormal Lab Results - Last 24 Hours (Table) 05/20/16 05/21/16 05/21/16 Range/Units 21:26 06: 06:30 WBC 11.4 H (3.8-10.6) k/uL RBC 3.34 L (3.80-5.40) m/uL Hgb 7.8 L (11.4-16.0) gm/dL Hct 28.6 L (34.0-46.0) % MCH 23.2 L (25.0-35.0) pg MCHC 27.1 L (31.0-37.0) g/dL RDW 18.3 H (11.5-15.5) % Plt Count 146 L (150-450) k/uL Neutrophils # 10.7 H (1.3-7.7) k/uL Lymphocytes # 0.4 L (1.0-4.8) k/uL PT (9.0-12.0) sec BUN (7-17) mg/dL Glucose (74-99) mg/dL POC Glucose (mg/dL) 177 H 228 H (75-99) mg/dL Total Protein (6.3-8.2) g/dL Albumin (3.5-5.0) g/dL Free T4 (0.78-2.19) ng/dL 05/21/16 05/21/16 05/21/16 Range/Units 06:30 06:30 06:30 WBC (3.8-10.6) k/uL RBC (3.80-5.40) m/uL Hgb (11.4-16.0) gm/dL Hct (34.0-46.0) % MCH (25.0-35.0) pg MCHC (31.0-37.0) g/dL RDW (11.5-15.5) % Plt Count (150-450) k/uL Neutrophils # (1.3-7.7) k/uL Lymphocytes # (1.0-4.8) k/uL PT 16.6 H (9.0-12.0) sec BUN 32 H (7-17) mg/dL Glucose 216 H (74-99) mg/dL POC Glucose (mg/dL) (75-99) mg/dL Total Protein 5.5 L (6.3-8.2) g/dL Albumin 2.7 L (3.5-5.0) g/dL Free T4 0.76 L (0.78-2.19) ng/dL 05/21/16 Range/Units 11:52 WBC (3.8-10.6) k/uL RBC (3.80-5.40) m/uL Hgb (11.4-16.0) gm/dL Hct (34.0-46.0) % MCH (25.0-35.0) pg MCHC (31.0-37.0) g/dL RDW (11.5-15.5) % Plt Count (150-450) k/uL Neutrophils # (1.3-7.7) k/uL Lymphocytes # (1.0-4.8) k/uL PT (9.0-12.0) sec BUN (7-17) mg/dL Glucose (74-99) mg/dL POC Glucose (mg/dL) 444 H (75-99) mg/dL Total Protein (6.3-8.2) g/dL Albumin (3.5-5.0) g/dL Free T4 (0.78-2.19) ng/dL Assessment and Plan Plan: assessment Pneumonia with sepsis Acute exacerbation of chronic obstructive pulmonary disease Acute on chronic systolic congestive heart failure exacerbation Elevated troponins Acute anemia secondary to chronic blood loss and suspected lower GI bleed Chronic atrial fibrillation Diabetes mellitus insulin-dependent Plan Medications have been reviewed and will be continued as ordered. Cardiology is also on consult. Depending on how the patient does overnight we will consider switching her by mouth Lasix back to IV if needed. Repeat chest x-ray in the morning. Continue with supportive care. We will continue to monitor labs and adjust treatment as necessary. I performed an examination of the patient and discussed their management with the nurse practitioner. I have reviewed the nurse practitioner's note and agree with the documented findings and plan of care.
[2016-05-21 17:27] LABS: Glucose,Whole Blood 384 mg/dL (75-99)
[2016-05-21] MEDS: WARFARIN 2 MG TAB PO SCH (17:32)
[2016-05-21] MEDS ORDERED: WARFARIN 2 MG TAB PO ONE (18:00)
[2016-05-21] MEDS: LOSARTAN 50 MG TAB PO SCH (20:41)
[2016-05-21 20:43] LABS: Glucose,Whole Blood 338 mg/dL (75-99)
[2016-05-21] MEDS: PRAVASTATIN SODIUM 20 MG TAB PO SCH (20:43)
[2016-05-21] MEDS: MONTELUKAST 10 MG TAB PO SCH (20:43)
[2016-05-21 22:00] LABS: Glucose,Whole Blood 332 mg/dL (75-99)
[2016-05-22] MEDS: methylPREDNISolone SOD SUCCI 125 MG/2 ML VIAL IV SCH ×2 (00:03→08:28)
[2016-05-22] MEDS: HYDROcodone/APAP 10-325MG 1 EACH TAB PO PRN ×4 (00:05→18:06)
[2016-05-22 06:34] LABS: Glucose,Whole Blood 308 mg/dL (75-99)
[2016-05-22 06:50] LABS: INR 2.5 (<1.1); Prothrombin Time 24.1 sec (9.0-12.0)
[2016-05-22] MEDS: PANTOPRAZOLE 40 MG TABLET PO SCH (06:51)
[2016-05-22] MEDS: INSULIN LISPRO (humaLOG) 300 UNIT/3 ML VIAL SQ SCH ×7 (07:01→21:01)
[2016-05-22 07:06] LABS: ALT 29 U/L (9-52); AST 17 U/L (14-36); Alkaline Phosphatase 53 U/L (38-126); Anion Gap 7 mmol/L; Blood Urea Nitrogen 39 mg/dL (7-17); Calcium 8.3 mg/dL (8.4-10.2); Carbon Dioxide 29 mmol/L (22-30); Chloride 99 mmol/L (98-107); Glucose 271 mg/dL (74-99); Potassium 4.7 mmol/L (3.5-5.1); Sodium 135 mmol/L (137-145); Total Bilirubin 0.3 mg/dL (0.2-1.3); Total Protein 5.3 g/dL (6.3-8.2)
[2016-05-22 07:13] LABS: Anisocytosis Slight; Basophils % (A) 0 %; CH 23.8; Eosinophils % (A) 0 %; HCT 26.9 % (34.0-46.0); HDW 3.62; HGB 7.8 gm/dL (11.4-16.0); Hypochromasia Marked; Luc # (Auto) 0.06; Luc % (Auto) 1; Lymphocytes # (A) 0.4 k/uL (1.0-4.8); Lymphocytes % (A) 3 %; MCH 24.7 pg (25.0-35.0); MCHC 29.1 g/dL (31.0-37.0); MCV 84.9 fL (80.0-100.0); Mean Platelet Volume 9.5; Monocytes # (A) 0.4 k/uL (0-1.0); Monocytes % (A) 3 %; Neutrophils # (A) 11.9 k/uL (1.3-7.7); Neutrophils % (A) 93 %; Poikilocytosis Slight; RBC 3.17 m/uL (3.80-5.40); RDW 18.1 % (11.5-15.5); WBC 12.8 k/uL (3.8-10.6); WBC (Perox) 12.94
[2016-05-22 07:21] LABS: Non-African American GFR(MDRD) >60 (>60 ml/min/1.73 sqM)
[2016-05-22] MEDS: ALPRAZolam 0.25 MG TAB PO SCH ×2 (08:26→21:04)
[2016-05-22] MEDS: METOPROLOL SUCCINATE (ER) 100 MG TAB.ER.24H PO SCH ×2 (08:27→21:02)
[2016-05-22] MEDS: LEVOFLOXACIN 750 MG TAB PO SCH (08:27)
[2016-05-22] MEDS: FUROSEMIDE 40 MG TAB PO SCH ×2 (08:28→12:18)
[2016-05-22] MEDS: INSULIN DETEMIR 100 UNIT/ML 10 ML VIAL SQ SCH ×2 (08:28→21:04)
[2016-05-22] MEDS: BUDESONIDE 1 MG/2 ML NEBU INHALATION SCH ×2 (08:47→20:14)
[2016-05-22] MEDS: IPRATROPIUM-ALBUTEROL 3 ML NEB INHALATION SCH ×4 (08:47→20:14)
--- NOTE | 2016-05-22 10:06 | XR ---
EXAMINATION TYPE: XR chest 2V DATE OF EXAM: 05/22/2016 10:01 AM HISTORY: shortness of breath. REFERENCE: Previous study dated 05/20/2016. FINDINGS: A pain stimulator projects over the dorsal spine. The lungs are overinflated. The heart is enlarged. There is improved aeration of the right lower lobe . Both CP angles are blunted. I cannot exclude small effusions. IMPRESSION: 1. COPD. 2. CARDIOMEGALY. 3. IMPROVING RIGHT LOWER LOBE PNEUMONIA.
--- NOTE | 2016-05-22 10:29 | P.PN ---
Subjective Principal diagnosis: Pneumonia with sepsis Patient is a 76-year-old female who was readmitted to [facility] due to fever cough and worsening shortness of breath She had evidence of pneumonia with sepsis, she also had evidence of anemia was hemoglobin of 7.8, evidence of acute congestive heart failure exacerbation, she has known history of atrial fibrillation. Since yesterday patient reports some improvement in her cough and her shortness of breath, she remains very weak and fatigued. Objective - Vital Signs Vital signs: Vital Signs Temp 97.4 F L 05/22/16 03:35 Pulse 76 05/22/16 09:04 Resp 20 05/22/16 03:35 BP 139/60 05/22/16 03:35 Pulse Ox 92 L 05/22/16 03:35 Intake & Output 05/21/16 05/22/16 05/22/16 18:59 06:59 18:59 Intake Total 773 20 180 Balance 773 20 180 Weight 111 kg Intake: IV 20 0.9% NS FLUSH 20 Oral 773 180 Other: Voiding Method Bedpan Bedpan Diaper Diaper Incontinent # Voids 3 - Exam In general patient is alert and oriented 3 in no apparent distress HEENT head normocephalic and atraumatic Neck is supple no JVD no goiter no lymphadenopathy Chest exam reveals a scattered crackles in both lung olivares no wheezing Cardiac exam reveals regular heart sounds no murmurs Abdomen is soft nontender no organomegaly Extremity exam reveals no edema no cyanosis or clubbing - Labs CBC & Chem 7: 05/22/16 06:11 05/22/16 06:11 Labs: Abnormal Lab Results - Last 24 Hours (Table) 05/21/16 05/21/16 05/21/16 Range/Units 06:30 11:52 17:23 WBC (3.8-10.6) k/uL RBC (3.80-5.40) m/uL Hgb (11.4-16.0) gm/dL Hct (34.0-46.0) % MCH (25.0-35.0) pg MCHC (31.0-37.0) g/dL RDW (11.5-15.5) % Plt Count (150-450) k/uL Neutrophils # (1.3-7.7) k/uL Lymphocytes # (1.0-4.8) k/uL PT (9.0-12.0) sec Sodium (137-145) mmol/L BUN (7-17) mg/dL Glucose (74-99) mg/dL POC Glucose (mg/dL) 444 H 384 H (75-99) mg/dL Calcium (8.4-10.2) mg/dL Total Protein (6.3-8.2) g/dL Albumin (3.5-5.0) g/dL Free T4 0.76 L (0.78-2.19) ng/dL 05/21/16 05/21/16 05/22/16 Range/Units 20:41 21:19 06:11 WBC 12.8 H (3.8-10.6) k/uL RBC 3.17 L (3.80-5.40) m/uL Hgb 7.8 L (11.4-16.0) gm/dL Hct 26.9 L (34.0-46.0) % MCH 24.7 L (25.0-35.0) pg MCHC 29.1 L (31.0-37.0) g/dL RDW 18.1 H (11.5-15.5) % Plt Count 124 L (150-450) k/uL Neutrophils # 11.9 H (1.3-7.7) k/uL Lymphocytes # 0.4 L (1.0-4.8) k/uL PT (9.0-12.0) sec Sodium (137-145) mmol/L BUN (7-17) mg/dL Glucose (74-99) mg/dL POC Glucose (mg/dL) 338 H 332 H (75-99) mg/dL Calcium (8.4-10.2) mg/dL Total Protein (6.3-8.2) g/dL Albumin (3.5-5.0) g/dL Free T4 (0.78-2.19) ng/dL 05/22/16 05/22/16 05/22/16 Range/Units 06:11 06:11 06:15 WBC (3.8-10.6) k/uL RBC (3.80-5.40) m/uL Hgb (11.4-16.0) gm/dL Hct (34.0-46.0) % MCH (25.0-35.0) pg MCHC (31.0-37.0) g/dL RDW (11.5-15.5) % Plt Count (150-450) k/uL Neutrophils # (1.3-7.7) k/uL Lymphocytes # (1.0-4.8) k/uL PT 24.1 H (9.0-12.0) sec Sodium 135 L (137-145) mmol/L BUN 39 H (7-17) mg/dL Glucose 271 H (74-99) mg/dL POC Glucose (mg/dL) 308 H (75-99) mg/dL Calcium 8.3 L (8.4-10.2) mg/dL Total Protein 5.3 L (6.3-8.2) g/dL Albumin 2.7 L (3.5-5.0) g/dL Free T4 (0.78-2.19) ng/dL Assessment and Plan Plan: 1. Pneumonia with sepsis: Chest x-ray showing cardiomegaly with peripheral vascular congestion and patchy density in the right lower lobe. P chest x-ray showing improvement in right lower lobe infiltrate 2. Acute on chronic systolic CHF exacerbation. Most recent echo shows an EF of 40-45%. BNP elevated in the 3000's. Chest x-ray showing peripheral vascular congestion. 3. Cardiac pauses. Continue with telemetry monitoring. Cardiology has been consulted. 4. Insulin-dependent diabetes mellitus, A1c is 7.2 continue was Levemir and NovoLog 5. Elevated troponin with no chest pain. Cardiology following 6. Acute anemia secondary to chronic blood loss and suspected lower GI bleed. Hemoglobin is 7.9. Was unable to have a colonoscopy during last admission due to multiple complications. She had a EGD last month. We will continue to give IV iron supplements 7. Chronic atrial fibrillation maintained on Coumadin for anticoagulation. INR is therapeutic. Monitor PT/INRs closely due to Coumadin and Levaquin interaction. 8. History of COPD: Continue with nebulizer treatments.
[2016-05-22] MEDS ORDERED: SODIUM FERRIC GLUCONAT-SUCROSE 125 MG in SODIUM CHLORIDE 0.9% 100 ML IVPB ONE (11:00)
[2016-05-22 11:36] LABS: Glucose,Whole Blood 359 mg/dL (75-99)
--- NOTE | 2016-05-22 14:27 | P.PN ---
Subjective Principal diagnosis: A. fib with slow ventricular response This is a 76-year-old female with known history of chronic persistent atrial fibrillation, peripheral vascular disease, status post thrombectomy, COPD , hypertension, who was admitted to the hospital with symptoms of shortness of breath and associated fever thought to be secondary to pneumonia with COPD exacerbation. Cardiology consultation was requested because of episodes of pauses. Patient has known chronic persistent atrial fibrillation. Patient was on Lanoxin, Cardizem, Toprol. Patient did have an echo performed her last admission which revealed moderate LV systolic dysfunction. Patient was anticoagulated with a therapeutic INR and Coumadin. Cardizem and Lanoxin were discontinued. Patient continues to be on metoprolol tartrate 100 mg one tablet by mouth twice a day. Patient's heart rate this morning in the 60s, Blood pressure this morning 158/60. Objective - Vital Signs Vital signs: Vital Signs Temp 97.0 F L 05/22/16 12:00 Pulse 68 05/22/16 12:00 Resp 20 05/22/16 12:00 BP 164/72 05/22/16 12:00 Pulse Ox 95 05/22/16 12:00 Intake & Output 05/21/16 05/22/16 05/22/16 18:59 06:59 18:59 Intake Total 773 20 591 Balance 773 20 591 Weight 111 kg Intake: IV 20 10 0.9% NS FLUSH 20 Invasive Line 1 10 Intake, IV Titration 103 Amount Sodium Ferric Gluconat- 103 Sucrose 125 mg In Sodium Chloride 0.9% 100 ml @ 100 mls/hr IVPB ONCE ONE Rx#:[id number] Oral 773 478 Other: Voiding Method Bedpan Bedpan Bedpan Diaper Diaper Diaper Incontinent Incontinent # Voids 3 - Exam PHYSICAL EXAMINATION: HEENT: Head is atraumatic, normocephalic. Pupils equal, round. Neck is supple. There is no elevated jugular venous pressure. HEART EXAMINATION: Heart S1 and S2 irregularly irregular with systolic murmur. CHEST EXAMINATION: Lungs reveal scattered coarse rhonchi throughout. ABDOMEN: Soft, obese, nontender. Bowel sounds are heard. No organomegaly noted. EXTREMITIES: 1+ peripheral pulses with no evidence of peripheral edema and no calf tenderness noted. NEUROLOGIC patient is awake, alert and oriented -3. . - Labs CBC & Chem 7: 05/22/16 06:11 05/22/16 06:11 Labs: Abnormal Lab Results - Last 24 Hours (Table) 05/21/16 05/21/16 05/21/16 Range/Units 17:23 20:41 21:19 WBC (3.8-10.6) k/uL RBC (3.80-5.40) m/uL Hgb (11.4-16.0) gm/dL Hct (34.0-46.0) % MCH (25.0-35.0) pg MCHC (31.0-37.0) g/dL RDW (11.5-15.5) % Plt Count (150-450) k/uL Neutrophils # (1.3-7.7) k/uL Lymphocytes # (1.0-4.8) k/uL PT (9.0-12.0) sec Sodium (137-145) mmol/L BUN (7-17) mg/dL Glucose (74-99) mg/dL POC Glucose (mg/dL) 384 H 338 H 332 H (75-99) mg/dL Calcium (8.4-10.2) mg/dL Total Protein (6.3-8.2) g/dL Albumin (3.5-5.0) g/dL 05/22/16 05/22/16 05/22/16 Range/Units 06:11 06:11 06:11 WBC 12.8 H (3.8-10.6) k/uL RBC 3.17 L (3.80-5.40) m/uL Hgb 7.8 L (11.4-16.0) gm/dL Hct 26.9 L (34.0-46.0) % MCH 24.7 L (25.0-35.0) pg MCHC 29.1 L (31.0-37.0) g/dL RDW 18.1 H (11.5-15.5) % Plt Count 124 L (150-450) k/uL Neutrophils # 11.9 H (1.3-7.7) k/uL Lymphocytes # 0.4 L (1.0-4.8) k/uL PT 24.1 H (9.0-12.0) sec Sodium 135 L (137-145) mmol/L BUN 39 H (7-17) mg/dL Glucose 271 H (74-99) mg/dL POC Glucose (mg/dL) (75-99) mg/dL Calcium 8.3 L (8.4-10.2) mg/dL Total Protein 5.3 L (6.3-8.2) g/dL Albumin 2.7 L (3.5-5.0) g/dL 05/22/16 05/22/16 Range/Units 06:15 11:27 WBC (3.8-10.6) k/uL RBC (3.80-5.40) m/uL Hgb (11.4-16.0) gm/dL Hct (34.0-46.0) % MCH (25.0-35.0) pg MCHC (31.0-37.0) g/dL RDW (11.5-15.5) % Plt Count (150-450) k/uL Neutrophils # (1.3-7.7) k/uL Lymphocytes # (1.0-4.8) k/uL PT (9.0-12.0) sec Sodium (137-145) mmol/L BUN (7-17) mg/dL Glucose (74-99) mg/dL POC Glucose (mg/dL) 308 H 359 H (75-99) mg/dL Calcium (8.4-10.2) mg/dL Total Protein (6.3-8.2) g/dL Albumin (3.5-5.0) g/dL Assessment and Plan (1) Chronic a-fib Status: Acute (2) Sinus pause Status: Acute (3) Chronic anemia Status: Acute (4) Pneumonia Status: Acute (5) COPD (chronic obstructive pulmonary disease) Status: Acute (6) Peripheral arterial occlusive disease Status: Chronic (7) HTN (hypertension) Status: Acute Plan: From cardiology's perspective, we will continue to hold the patient's Lanoxin and Cardizem. Continue Norvasc. Any beta mel. From cardiology's perspective, we'll follow this patient with you now on a PRN basis please don't hesitate to call with any questions. DNP note has been reviewed, I agree with a documented findings and plan of care. Patient was seen and examined.
--- NOTE | 2016-05-22 14:50 | P.PN ---
Subjective Principal diagnosis: Pneumonia Patient seen and examined covering for Dr. Pittman. The patient states that she is feeling better today. She states her cough is improving. She does wear oxygen at baseline at 3 L nasal cannula. She is currently on 4 L. She did state she worked with physical therapy and was able to stand at the bedside for about 20 seconds. Objective - Vital Signs Vital signs: Vital Signs Temp 97.0 F L 05/22/16 12:00 Pulse 68 05/22/16 12:00 Resp 20 05/22/16 12:00 BP 164/72 05/22/16 12:00 Pulse Ox 95 05/22/16 12:00 Intake & Output 05/21/16 05/22/16 05/22/16 18:59 06:59 18:59 Intake Total 773 20 591 Balance 773 20 591 Weight 111 kg Intake: IV 20 10 0.9% NS FLUSH 20 Invasive Line 1 10 Intake, IV Titration 103 Amount Sodium Ferric Gluconat- 103 Sucrose 125 mg In Sodium Chloride 0.9% 100 ml @ 100 mls/hr IVPB ONCE ONE Rx#:[id number] Oral 773 478 Other: Voiding Method Bedpan Bedpan Bedpan Diaper Diaper Diaper Incontinent Incontinent # Voids 3 - Exam Gen.: Patient is alert and oriented 3, no acute distress, obese Cardiovascular: Regular rate and rhythm, S1/S2 Lungs: Diminished breath sounds bilaterally Abdomen: Soft nontender nondistended positive bowel sounds Extremities: Trace to 1+ pitting edema - Labs CBC & Chem 7: 05/22/16 06:11 05/22/16 06:11 Labs: Abnormal Lab Results - Last 24 Hours (Table) 05/21/16 05/21/16 05/21/16 Range/Units 17:23 20:41 21:19 WBC (3.8-10.6) k/uL RBC (3.80-5.40) m/uL Hgb (11.4-16.0) gm/dL Hct (34.0-46.0) % MCH (25.0-35.0) pg MCHC (31.0-37.0) g/dL RDW (11.5-15.5) % Plt Count (150-450) k/uL Neutrophils # (1.3-7.7) k/uL Lymphocytes # (1.0-4.8) k/uL PT (9.0-12.0) sec Sodium (137-145) mmol/L BUN (7-17) mg/dL Glucose (74-99) mg/dL POC Glucose (mg/dL) 384 H 338 H 332 H (75-99) mg/dL Calcium (8.4-10.2) mg/dL Total Protein (6.3-8.2) g/dL Albumin (3.5-5.0) g/dL 05/22/16 05/22/16 05/22/16 Range/Units 06:11 06:11 06:11 WBC 12.8 H (3.8-10.6) k/uL RBC 3.17 L (3.80-5.40) m/uL Hgb 7.8 L (11.4-16.0) gm/dL Hct 26.9 L (34.0-46.0) % MCH 24.7 L (25.0-35.0) pg MCHC 29.1 L (31.0-37.0) g/dL RDW 18.1 H (11.5-15.5) % Plt Count 124 L (150-450) k/uL Neutrophils # 11.9 H (1.3-7.7) k/uL Lymphocytes # 0.4 L (1.0-4.8) k/uL PT 24.1 H (9.0-12.0) sec Sodium 135 L (137-145) mmol/L BUN 39 H (7-17) mg/dL Glucose 271 H (74-99) mg/dL POC Glucose (mg/dL) (75-99) mg/dL Calcium 8.3 L (8.4-10.2) mg/dL Total Protein 5.3 L (6.3-8.2) g/dL Albumin 2.7 L (3.5-5.0) g/dL 05/22/16 05/22/16 Range/Units 06:15 11:27 WBC (3.8-10.6) k/uL RBC (3.80-5.40) m/uL Hgb (11.4-16.0) gm/dL Hct (34.0-46.0) % MCH (25.0-35.0) pg MCHC (31.0-37.0) g/dL RDW (11.5-15.5) % Plt Count (150-450) k/uL Neutrophils # (1.3-7.7) k/uL Lymphocytes # (1.0-4.8) k/uL PT (9.0-12.0) sec Sodium (137-145) mmol/L BUN (7-17) mg/dL Glucose (74-99) mg/dL POC Glucose (mg/dL) 308 H 359 H (75-99) mg/dL Calcium (8.4-10.2) mg/dL Total Protein (6.3-8.2) g/dL Albumin (3.5-5.0) g/dL Assessment and Plan Plan: Pneumonia with sepsis, right lower lobe Acute exacerbation of chronic obstructive pulmonary disease Acute on chronic systolic congestive heart failure exacerbation Elevated troponins Acute anemia secondary to chronic blood loss and suspected lower GI bleed Chronic atrial fibrillation with sinus pauses Diabetes mellitus insulin-dependent Plan O2 to maintain saturation greater than or equal to 88% Pulmicort Bronchodilators Cardiology is also on consult. Antibiotics: Levaquin Chest x-rays reviewed and is improving Diuresis Singulair GI and DVT prophylaxis Steroid taper PT and OT
[2016-05-22] MEDS: methylPREDNISolone SOD SUCCI 40 MG/ML 1 ML VIAL IV SCH ×2 (16:05→23:40)
[2016-05-22 16:45] LABS: Glucose,Whole Blood 309 mg/dL (75-99)
[2016-05-22] MEDS: WARFARIN 2 MG TAB PO SCH (17:25)
[2016-05-22 20:57] LABS: Glucose,Whole Blood 259 mg/dL (75-99)
[2016-05-22] MEDS: LOSARTAN 50 MG TAB PO SCH (21:01)
[2016-05-22] MEDS: PRAVASTATIN SODIUM 20 MG TAB PO SCH (21:02)
[2016-05-22] MEDS: MONTELUKAST 10 MG TAB PO SCH (21:02)
[2016-05-23 06:55] LABS: Glucose,Whole Blood 304 mg/dL (75-99)
[2016-05-23] MEDS: INSULIN LISPRO (humaLOG) 300 UNIT/3 ML VIAL SQ SCH ×6 (06:56→17:08)
[2016-05-23] MEDS: PANTOPRAZOLE 40 MG TABLET PO SCH (06:56)
[2016-05-23 07:17] LABS: Anisocytosis Slight; Basophils % (A) 0 %; CH 23.3; Eosinophils % (A) 0 %; HCT 26.9 % (34.0-46.0); HGB 7.7 gm/dL (11.4-16.0); Hypochromasia Marked; Luc % (Auto) 1; Lymphocytes # (A) 0.4 k/uL (1.0-4.8); Lymphocytes % (A) 3 %; MCH 24.5 pg (25.0-35.0); MCHC 28.4 g/dL (31.0-37.0); MCV 86.1 fL (80.0-100.0); Mean Platelet Volume 8.1; Monocytes # (A) 0.3 k/uL (0-1.0); Monocytes % (A) 2 %; Neutrophils # (A) 10.8 k/uL (1.3-7.7); Neutrophils % (A) 93 %; Poikilocytosis Slight; RBC 3.13 m/uL (3.80-5.40); RDW 17.4 % (11.5-15.5); WBC 11.6 k/uL (3.8-10.6); WBC (Perox) 12.32
[2016-05-23 07:32] LABS: Prothrombin Time 57.4 sec (9.0-12.0)
[2016-05-23 07:33] LABS: ALT 31 U/L (9-52); AST 18 U/L (14-36); Alkaline Phosphatase 55 U/L (38-126); Anion Gap 8 mmol/L; Blood Urea Nitrogen 39 mg/dL (7-17); Calcium 8.5 mg/dL (8.4-10.2); Carbon Dioxide 27 mmol/L (22-30); Chloride 101 mmol/L (98-107); Glucose 299 mg/dL (74-99); Non-African American GFR(MDRD) >60 (>60 ml/min/1.73 sqM); Potassium 4.6 mmol/L (3.5-5.1); Sodium 136 mmol/L (137-145); Total Bilirubin 0.3 mg/dL (0.2-1.3); Total Protein 5.4 g/dL (6.3-8.2)
[2016-05-23 07:57] LABS: INR 5.7 (<1.1)
[2016-05-23] MEDS: HYDROcodone/APAP 10-325MG 1 EACH TAB PO PRN ×3 (08:09→21:20)
[2016-05-23] MEDS: methylPREDNISolone SOD SUCCI 40 MG/ML 1 ML VIAL IV SCH ×3 (08:12→23:04)
[2016-05-23] MEDS: ALPRAZolam 0.25 MG TAB PO SCH ×2 (08:13→20:38)
[2016-05-23] MEDS: FUROSEMIDE 40 MG TAB PO SCH ×2 (08:13→12:40)
[2016-05-23] MEDS: LEVOFLOXACIN 750 MG TAB PO SCH (08:14)
[2016-05-23] MEDS: METOPROLOL SUCCINATE (ER) 100 MG TAB.ER.24H PO SCH ×2 (08:14→20:37)
[2016-05-23] MEDS: INSULIN DETEMIR 100 UNIT/ML 10 ML VIAL SQ SCH (08:17)
[2016-05-23] MEDS: BUDESONIDE 1 MG/2 ML NEBU INHALATION SCH ×2 (08:26→20:14)
[2016-05-23] MEDS: IPRATROPIUM-ALBUTEROL 3 ML NEB INHALATION SCH ×4 (08:26→20:14)
--- NOTE | 2016-05-23 09:30 | P.PN ---
Subjective Principal diagnosis: Pneumonia with sepsis Patient is a 76-year-old female who was readmitted to [facility] due to fever cough and worsening shortness of breath She had evidence of pneumonia with sepsis, she also had evidence of anemia was hemoglobin of 7.8, evidence of acute congestive heart failure exacerbation, she has known history of atrial fibrillation. Since yesterday patient reports some improvement in her cough and her shortness of breath, she remains very weak and fatigued. Objective - Vital Signs Vital signs: Vital Signs Temp 97.3 F L 05/23/16 08:00 Pulse 74 05/23/16 08:40 Resp 20 05/23/16 08:00 BP 127/58 05/23/16 08:00 Pulse Ox 95 05/23/16 08:00 Intake & Output 05/22/16 05/23/16 05/23/16 18:59 06:59 18:59 Intake Total 827 20 14 Output Total 300 Balance 827 -280 14 Weight 112.5 kg Intake: IV 10 20 14 0.9% NS FLUSH 20 Invasive Line 1 10 14 Intake, IV Titration 103 Amount Sodium Ferric Gluconat- 103 Sucrose 125 mg In Sodium Chloride 0.9% 100 ml @ 100 mls/hr IVPB ONCE ONE Rx#:[id number] Oral 714 Output: Urine 300 Other: Voiding Method Bedpan Bedpan Bedpan Diaper Incontinent # Bowel Movements 1 - Exam In general patient is alert and oriented 3 in no apparent distress HEENT head normocephalic and atraumatic Neck is supple no JVD no goiter no lymphadenopathy Chest exam reveals a scattered crackles in both lung olivares no wheezing Cardiac exam reveals regular heart sounds no murmurs Abdomen is soft nontender no organomegaly Extremity exam reveals no edema no cyanosis or clubbing - Labs CBC & Chem 7: 05/23/16 07:03 05/23/16 07:03 Labs: Abnormal Lab Results - Last 24 Hours (Table) 05/22/16 05/22/16 05/22/16 Range/Units 11:27 16:42 20:55 WBC (3.8-10.6) k/uL RBC (3.80-5.40) m/uL Hgb (11.4-16.0) gm/dL Hct (34.0-46.0) % MCH (25.0-35.0) pg MCHC (31.0-37.0) g/dL RDW (11.5-15.5) % Neutrophils # (1.3-7.7) k/uL Lymphocytes # (1.0-4.8) k/uL PT (9.0-12.0) sec INR (<1.1) Sodium (137-145) mmol/L BUN (7-17) mg/dL Glucose (74-99) mg/dL POC Glucose (mg/dL) 359 H 309 H 259 H (75-99) mg/dL Total Protein (6.3-8.2) g/dL Albumin (3.5-5.0) g/dL 05/23/16 05/23/16 05/23/16 Range/Units 06:45 07:03 07:03 WBC 11.6 H (3.8-10.6) k/uL RBC 3.13 L (3.80-5.40) m/uL Hgb 7.7 L (11.4-16.0) gm/dL Hct 26.9 L (34.0-46.0) % MCH 24.5 L (25.0-35.0) pg MCHC 28.4 L (31.0-37.0) g/dL RDW 17.4 H (11.5-15.5) % Neutrophils # 10.8 H (1.3-7.7) k/uL Lymphocytes # 0.4 L (1.0-4.8) k/uL PT 57.4 H (9.0-12.0) sec INR 5.7 H* (<1.1) Sodium (137-145) mmol/L BUN (7-17) mg/dL Glucose (74-99) mg/dL POC Glucose (mg/dL) 304 H (75-99) mg/dL Total Protein (6.3-8.2) g/dL Albumin (3.5-5.0) g/dL 05/23/16 Range/Units 07:03 WBC (3.8-10.6) k/uL RBC (3.80-5.40) m/uL Hgb (11.4-16.0) gm/dL Hct (34.0-46.0) % MCH (25.0-35.0) pg MCHC (31.0-37.0) g/dL RDW (11.5-15.5) % Neutrophils # (1.3-7.7) k/uL Lymphocytes # (1.0-4.8) k/uL PT (9.0-12.0) sec INR (<1.1) Sodium 136 L (137-145) mmol/L BUN 39 H (7-17) mg/dL Glucose 299 H (74-99) mg/dL POC Glucose (mg/dL) (75-99) mg/dL Total Protein 5.4 L (6.3-8.2) g/dL Albumin 2.7 L (3.5-5.0) g/dL Microbiology - Last 24 Hours (Table) 05/21/16 12:55 Blood Culture - Preliminary Blood No Growth after 24 hours Assessment and Plan Plan: 1. Pneumonia with sepsis: Chest x-ray showing cardiomegaly with peripheral vascular congestion and patchy density in the right lower lobe. P chest x-ray showing improvement in right lower lobe infiltrate 2. Acute on chronic systolic CHF exacerbation. Most recent echo shows an EF of 40-45%. BNP elevated in the 3000's. Chest x-ray showing peripheral vascular congestion. 3. Cardiac pauses. Continue with telemetry monitoring. Cardiology has been consulted. 4. Insulin-dependent diabetes mellitus, A1c is 7.2 continue was Levemir and NovoLog 5. Elevated troponin with no chest pain. Cardiology following 6. Acute anemia secondary to chronic blood loss and suspected lower GI bleed. Hemoglobin is 7.7. Was unable to have a colonoscopy during last admission due to multiple complications. She had a EGD last month. Hemoglobin is dropping despite multiple IV iron infusion at this time will proceed was 1 unit of red blood cell transfusion 7. Chronic atrial fibrillation maintained on Coumadin for anticoagulation. Monitor PT/INRs closely due to Coumadin and Levaquin interaction. 8. History of COPD: Continue with nebulizer treatments. 9. Coagulopathy elevated INR of 5.6 today Will hold Coumadin and monitor INR
[2016-05-23 11:42] LABS: Glucose,Whole Blood 420 mg/dL (75-99)
[2016-05-23] MEDS ORDERED: INSULIN LISPRO (humaLOG) 300 UNIT/3 ML VIAL SQ ONE (12:22)
--- NOTE | 2016-05-23 14:06 | PN ---
DATE OF SERVICE: 05/23/2016 Ms. Maria De Jesus Bui is a 76-year-old female, seen, evaluated, examined. Clinically patient remains on supplemental oxygen at 4 liters. She is short of breath on activity and exertion. Hemodynamic status is marginal, but stable. Her last set of vitals include blood pressure is 127/60, respiratory rate 20, pulse 75, temperature is 98, saturation of 95% on 4 liters oxygen. HEENT EXAMINATION: Otherwise unremarkable. NECK: Supple. LUNGS: Good air entry bilaterally. HEART: Regular rate and rhythm. ABDOMEN: Soft. NEUROLOGICAL EXAMINATION: Examination not much change. Labs reviewed. Medications reviewed as well. The white cell count is 11,600, hemoglobin is 7.7, hematocrit 26, platelet count of 171,000. PT and INR is 57.4 and 5.7. The rest of the chemistry is within normal limits. Current medications reviewed and include Tylenol with Codeine, DuoNeb updraft 4 times a day. Xanax, Pulmicort, Lasix 20 mg daily, 20 mg in the evening and 40 mg morning. Sliding scale insulin, also on Levaquin, Solu-Medrol 40 q.8, metoprolol, pravastatin. Coumadin is on hold at this point in time. Last chest x-ray performed 05/22/2016 reviewed and compared to prior x-ray revealed resolving right lower lobe pneumonia, cardiomegaly, and chronic obstructive pulmonary disease. IMPRESSION: 1. Right lower lobe pneumonia, acute on chronic hypoxic respiratory failure. 2. Sepsis associated with pneumonia. 3. Chronic renal failure. 4. Coagulopathy related to Coumadin which is on hold. 5. Patient has chronic atrial fibrillation, overall stable. 6. Diabetes mellitus. 7. Hyperglycemia. 8. Morbid obesity. PLAN AND RECOMMENDATIONS: As above. Continue supportive care. Follow clinical course closely. Increase activity as tolerated. Will follow.
--- NOTE | 2016-05-23 15:18 | PN ---
Mrs. Bui is a 76-year-old female with known history of chronic permanent atrial fibrillation, history of peripheral vascular disease, chronic obstructive lung disease, who presented with symptoms of dyspnea and pneumonia with exacerbation of chronic obstructive pulmonary disease. She had no further pauses. She is feeling slightly better. She has continued to have some dyspnea, but no chest pain. No dizziness. No palpitation. Hemodynamically she has been stable. She continues to be on furosemide 40 mg in the morning and 20 in the afternoon. Insulin. Losartan 50 mg daily, pravastatin, methylprednisolone. PHYSICAL EXAMINATION: Blood pressure 127/50 with a heart rate in the 70s, lungs with scattered rhonchi. HEART: Irregularly irregular. S1, S2, no S3, no rub. ABDOMEN: Soft, obese, nontender. EXTREMITIES: Trace to 1+ edema. Lab data revealed BUN and creatinine 39 and 0.76. Her INR 5.7. Hemoglobin of 7.7. IMPRESSION: 1. Pneumonia with exacerbation of chronic obstructive pulmonary disease. 2. Chronic atrial fibrillation with no further pauses. 3. Coagulopathy. 4. Severe anemia. 5. Peripheral vascular disease. RECOMMENDATIONS: We will continue current therapy. Continue to follow her INR and follow her hemoglobin. Depending on her progress, further recommendation will be made. Depending on the rhythm and her ventricular response, further adjustment of her regimen can be made.
[2016-05-23] MEDS ORDERED: FUROSEMIDE 10 MG/ML 2 ML VIAL IV STA (16:11)
[2016-05-23 16:36] LABS: Glucose,Whole Blood 422 mg/dL (75-99)
[2016-05-23] MEDS: INSULIN REGULAR 100 UNIT in SODIUM CHLORIDE 0.9% 100 ML IV SCH (17:22)
[2016-05-23] MEDS ORDERED: INSULIN LISPRO (humaLOG) 300 UNIT/3 ML VIAL SQ SCH (17:30)
[2016-05-23 18:02] LABS: Glucose,Whole Blood 390 mg/dL (75-99)
[2016-05-23 18:43] LABS: Glucose,Whole Blood 344 mg/dL (75-99)
[2016-05-23 19:14] LABS: Glucose,Whole Blood 320 mg/dL (75-99)
[2016-05-23 19:35] LABS: Glucose,Whole Blood 293 mg/dL (75-99)
[2016-05-23 20:07] LABS: Glucose,Whole Blood 269 mg/dL (75-99)
[2016-05-23 20:37] LABS: Glucose,Whole Blood 263 mg/dL (75-99)
[2016-05-23] MEDS: LOSARTAN 50 MG TAB PO SCH (20:37)
[2016-05-23] MEDS: PRAVASTATIN SODIUM 20 MG TAB PO SCH (20:37)
[2016-05-23] MEDS: MONTELUKAST 10 MG TAB PO SCH (20:37)
[2016-05-23 21:04] LABS: Hemoglobin A1C 7.4 % (4.2-6.1)
[2016-05-23 21:17] LABS: Glucose,Whole Blood 215 mg/dL (75-99)
[2016-05-23 23:07] LABS: Glucose,Whole Blood 166 mg/dL (75-99)
[2016-05-24 01:26] LABS: Glucose,Whole Blood 127 mg/dL (75-99)
[2016-05-24 02:06] LABS: Glucose,Whole Blood 129 mg/dL (75-99)
[2016-05-24 03:02] LABS: Glucose,Whole Blood 129 mg/dL (75-99)
[2016-05-24 04:10] LABS: Glucose,Whole Blood 150 mg/dL (75-99)
[2016-05-24 06:00] LABS: Glucose,Whole Blood 130 mg/dL (75-99)
[2016-05-24 06:36] LABS: Anisocytosis Slight; Basophils # (A) 0.1 k/uL (0-0.2); Basophils % (A) 0 %; CH 24.4; CHCM 28.5; Eosinophils % (A) 0 %; HCT 33.2 % (34.0-46.0); HDW 4.68; Hypochromasia Marked; Luc # (Auto) 0.13; Luc % (Auto) 1; Lymphocytes # (A) 0.5 k/uL (1.0-4.8); Lymphocytes % (A) 4 %; MCH 25.2 pg (25.0-35.0); MCHC 29.4 g/dL (31.0-37.0); MCV 85.7 fL (80.0-100.0); Mean Platelet Volume 7.9; Monocytes # (A) 0.4 k/uL (0-1.0); Monocytes % (A) 4 %; Neutrophils # (A) 10.3 k/uL (1.3-7.7); Neutrophils % (A) 91 %; Poikilocytosis Marked; RBC 3.88 m/uL (3.80-5.40); RDW 17.5 % (11.5-15.5); WBC 11.4 k/uL (3.8-10.6); WBC (Perox) 12.16
[2016-05-24 06:48] LABS: HGB 9.8 gm/dL (11.4-16.0)
[2016-05-24] MEDS: PANTOPRAZOLE 40 MG TABLET PO SCH (06:50)
[2016-05-24 06:52] LABS: ALT 42 U/L (9-52); AST 25 U/L (14-36); Alkaline Phosphatase 53 U/L (38-126); Anion Gap 9 mmol/L; Blood Urea Nitrogen 42 mg/dL (7-17); Calcium 8.6 mg/dL (8.4-10.2); Carbon Dioxide 29 mmol/L (22-30); Chloride 102 mmol/L (98-107); Glucose 124 mg/dL (74-99); Non-African American GFR(MDRD) >60 (>60 ml/min/1.73 sqM); Potassium 4.1 mmol/L (3.5-5.1); Sodium 140 mmol/L (137-145); Total Bilirubin 0.5 mg/dL (0.2-1.3); Total Protein 5.6 g/dL (6.3-8.2)
[2016-05-24 07:05] LABS: Prothrombin Time 67.8 sec (9.0-12.0)
[2016-05-24] MEDS: BUDESONIDE 1 MG/2 ML NEBU INHALATION SCH ×2 (08:26→19:50)
[2016-05-24] MEDS: IPRATROPIUM-ALBUTEROL 3 ML NEB INHALATION SCH ×4 (08:26→19:50)
[2016-05-24] MEDS: methylPREDNISolone SOD SUCCI 40 MG/ML 1 ML VIAL IV SCH ×3 (08:27→23:15)
[2016-05-24] MEDS: METOPROLOL SUCCINATE (ER) 100 MG TAB.ER.24H PO SCH ×2 (08:27→21:11)
[2016-05-24] MEDS: ALPRAZolam 0.25 MG TAB PO SCH ×2 (08:27→21:08)
[2016-05-24] MEDS: LEVOFLOXACIN 750 MG TAB PO SCH (08:27)
[2016-05-24] MEDS: FUROSEMIDE 40 MG TAB PO SCH ×2 (08:27→12:28)
[2016-05-24] MEDS: INSULIN LISPRO (humaLOG) 300 UNIT/3 ML VIAL SQ SCH ×5 (08:36→21:10)
[2016-05-24 08:45] LABS: Glucose,Whole Blood 258 mg/dL (75-99)
[2016-05-24 08:55] LABS: INR 6.6 (<1.1)
[2016-05-24] MEDS ORDERED: PHYTONADIONE ORAL 5 MG/5 ML ORAL.SYRG PO STA (09:45)
[2016-05-24] MEDS ORDERED: FUROSEMIDE 10 MG/ML 2 ML VIAL IV STA (09:46)
[2016-05-24] MEDS ORDERED: ALBUMIN HUMAN 25% 50 ML in EMPTY BAG 1 BAG IVPB ONE (09:46)
[2016-05-24 10:30] LABS: Glucose,Whole Blood 201 mg/dL (75-99)
[2016-05-24] MEDS: HYDROcodone/APAP 10-325MG 1 EACH TAB PO PRN ×2 (10:30→15:58)
[2016-05-24 11:08] LABS: Glucose,Whole Blood 202 mg/dL (75-99)
[2016-05-24 11:44] LABS: Anisocytosis Slight; CH 24.8; CHCM 29.3; HCT 30.7 % (34.0-46.0); Hypochromasia Marked; MCH 24.7 pg (25.0-35.0); MCHC 29.2 g/dL (31.0-37.0); MCV 84.5 fL (80.0-100.0); Mean Platelet Volume 7.7; Poikilocytosis Marked; RBC 3.63 m/uL (3.80-5.40); RDW 17.9 % (11.5-15.5); WBC 12.5 k/uL (3.8-10.6)
[2016-05-24 12:00] LABS: Glucose,Whole Blood 185 mg/dL (75-99)
[2016-05-24] MEDS: INSULIN REGULAR 100 UNIT in SODIUM CHLORIDE 0.9% 100 ML IV SCH (12:24)
--- NOTE | 2016-05-24 13:02 | P.PN ---
Subjective This is a 76-year-old female patient who is being evaluated and examined today on the sixth floor. This patient is well-known to our service. This patient recently was hospitalized in April with a left leg ischemia status post thrombectomy, pneumonia, COPD exacerbation, GI bleed, and CHF exacerbation. The patient was subsequently discharged to [facility]. She came back to the emergency room with some shortness of breath, cough, fever, generalized weakness and lethargy. She also states that she had been having some difficulty with urination. The patient's chest x-ray has been reviewed and does show cardiomegaly and peripheral vascular congestion and patchy density in the right lower lobe. The patient was admitted with pneumonia, bronchospasms, acute hypoxia, chronic anemia, free bilateral illness and elevated troponins. The patient is known to have chronic hypoxia and uses 3 L of oxygen at the rehab facility as well and she wears CPAP for obstructive sleep apnea. Upon examination the patient is resting in bed up on 6 L of oxygen via nasal cannula she continues to have shortness of breath with exertion or extensive conversation. She denies any productive cough at this time. Patient was noted to have increased and her INR which was 6.6 and her PTT is 67.8 patient will be receiving vitamin K and albumin today. Hemoglobin is stable today at 9.8, she has received 1 unit of packed red blood cells this admission. Objective - Vital Signs Vital signs: Vital Signs Temp 97.0 F L 05/24/16 08:00 Pulse 96 05/24/16 08:43 Resp 22 05/24/16 08:00 BP 151/55 05/24/16 08:00 Pulse Ox 86 L 05/24/16 08:30 Intake & Output 05/23/16 05/24/16 05/24/16 18:59 06:59 18:59 Intake Total 1205.567 273.358 242.433 Output Total 1400 240 Balance 1205.567 -1126.642 2.433 Weight 112.5 kg 112.5 kg Intake: IV 29 210 0.9% NS FLUSH 15 10 Insulin Regular 100 unit 40 In Sodium Chloride 0.9% 100 ml @ Titrate IV .Q0M SHARONDA Rx#:[id number] Invasive Line 1 14 Sodium Chloride 0.9% 1, 160 000 ml @ 20 mls/hr IV . Q24H SHARONDA Rx#:[id number] Intake, IV Titration 33.567 63.358 2.433 Amount Insulin Regular 100 unit 33.567 63.358 2.433 In Sodium Chloride 0.9% 100 ml @ Titrate IV .Q0M SHARONDA Rx#:[id number] Oral 833 240 Blood Product 310 Rc As-1 Unit 310 [id number] Output: Urine 1400 240 Other: Voiding Method Bedpan Bedpan Bedpan # Voids 1 1 - Exam GENERAL EXAM: Alert, active, comfortable in no apparent distress. HEAD: Normocephalic. EYES: Normal reaction of pupils, equal size. NOSE: Clear with pink turbinates. THROAT: No erythema or exudates. NECK: No masses, no JVD. CHEST: No chest wall deformity. LUNGS: Lungs noted to be bilaterally coarse, with scattered rhonchi and crackles. CVS: S1 and S2 normal with no audible mumurs, regular rhythm. ABDOMEN: No hepatosplenomegaly, normal bowel sounds, no guarding or rigidity. EXTREMITIES: Trace edema noted, pedal pulses palpable. SKIN: No rashes CENTRAL NERVOUS SYSTEM: No focal deficits, tone is normal in all 4 extremities. - Labs CBC & Chem 7: 05/24/16 11:16 05/24/16 06:02 Labs: Abnormal Lab Results - Last 24 Hours (Table) 05/23/16 05/23/16 05/23/16 Range/Units 07:03 09:33 11:41 WBC (3.8-10.6) k/uL Hgb (11.4-16.0) gm/dL Hct (34.0-46.0) % MCHC (31.0-37.0) g/dL RDW (11.5-15.5) % Neutrophils # (1.3-7.7) k/uL Lymphocytes # (1.0-4.8) k/uL PT (9.0-12.0) sec INR (<1.1) BUN (7-17) mg/dL Glucose (74-99) mg/dL POC Glucose (mg/dL) 420 H (75-99) mg/dL Hemoglobin A1c 7.4 H (4.2-6.1) % Total Protein (6.3-8.2) g/dL Albumin (3.5-5.0) g/dL Crossmatch See Detail 04/02/17 04/02/17 04/02/17 Range/Units 16:33 17:50 18:31 WBC (3.8-10.6) k/uL Hgb (11.4-16.0) gm/dL Hct (34.0-46.0) % MCHC (31.0-37.0) g/dL RDW (11.5-15.5) % Neutrophils # (1.3-7.7) k/uL Lymphocytes # (1.0-4.8) k/uL PT (9.0-12.0) sec INR (<1.1) BUN (7-17) mg/dL Glucose (74-99) mg/dL POC Glucose (mg/dL) 422 H 390 H 344 H (75-99) mg/dL Hemoglobin A1c (4.2-6.1) % Total Protein (6.3-8.2) g/dL Albumin (3.5-5.0) g/dL Crossmatch 05/23/16 05/23/16 05/23/16 Range/Units 19:02 19:33 20:05 WBC (3.8-10.6) k/uL Hgb (11.4-16.0) gm/dL Hct (34.0-46.0) % MCHC (31.0-37.0) g/dL RDW (11.5-15.5) % Neutrophils # (1.3-7.7) k/uL Lymphocytes # (1.0-4.8) k/uL PT (9.0-12.0) sec INR (<1.1) BUN (7-17) mg/dL Glucose (74-99) mg/dL POC Glucose (mg/dL) 320 H 293 H 269 H (75-99) mg/dL Hemoglobin A1c (4.2-6.1) % Total Protein (6.3-8.2) g/dL Albumin (3.5-5.0) g/dL Crossmatch 05/23/16 05/23/16 05/23/16 Range/Units 20:36 21:17 23:04 WBC (3.8-10.6) k/uL Hgb (11.4-16.0) gm/dL Hct (34.0-46.0) % MCHC (31.0-37.0) g/dL RDW (11.5-15.5) % Neutrophils # (1.3-7.7) k/uL Lymphocytes # (1.0-4.8) k/uL PT (9.0-12.0) sec INR (<1.1) BUN (7-17) mg/dL Glucose (74-99) mg/dL POC Glucose (mg/dL) 263 H 215 H 166 H (75-99) mg/dL Hemoglobin A1c (4.2-6.1) % Total Protein (6.3-8.2) g/dL Albumin (3.5-5.0) g/dL Crossmatch 05/24/16 05/24/16 05/24/16 Range/Units 01:15 02:04 03:01 WBC (3.8-10.6) k/uL Hgb (11.4-16.0) gm/dL Hct (34.0-46.0) % MCHC (31.0-37.0) g/dL RDW (11.5-15.5) % Neutrophils # (1.3-7.7) k/uL Lymphocytes # (1.0-4.8) k/uL PT (9.0-12.0) sec INR (<1.1) BUN (7-17) mg/dL Glucose (74-99) mg/dL POC Glucose (mg/dL) 127 H 129 H 129 H (75-99) mg/dL Hemoglobin A1c (4.2-6.1) % Total Protein (6.3-8.2) g/dL Albumin (3.5-5.0) g/dL Crossmatch 05/24/16 05/24/16 05/24/16 Range/Units 04:08 05:59 06:02 WBC 11.4 H (3.8-10.6) k/uL Hgb 9.8 L D (11.4-16.0) gm/dL Hct 33.2 L (34.0-46.0) % MCHC 29.4 L (31.0-37.0) g/dL RDW 17.5 H (11.5-15.5) % Neutrophils # 10.3 H (1.3-7.7) k/uL Lymphocytes # 0.5 L (1.0-4.8) k/uL PT (9.0-12.0) sec INR (<1.1) BUN (7-17) mg/dL Glucose (74-99) mg/dL POC Glucose (mg/dL) 150 H 130 H (75-99) mg/dL Hemoglobin A1c (4.2-6.1) % Total Protein (6.3-8.2) g/dL Albumin (3.5-5.0) g/dL Crossmatch 05/24/16 05/24/16 05/24/16 Range/Units 06:02 06:02 08:33 WBC (3.8-10.6) k/uL Hgb (11.4-16.0) gm/dL Hct (34.0-46.0) % MCHC (31.0-37.0) g/dL RDW (11.5-15.5) % Neutrophils # (1.3-7.7) k/uL Lymphocytes # (1.0-4.8) k/uL PT 67.8 H (9.0-12.0) sec INR 6.6 H* (<1.1) BUN 42 H (7-17) mg/dL Glucose 124 H (74-99) mg/dL POC Glucose (mg/dL) 258 H (75-99) mg/dL Hemoglobin A1c (4.2-6.1) % Total Protein 5.6 L (6.3-8.2) g/dL Albumin 2.8 L (3.5-5.0) g/dL Crossmatch 05/24/16 Range/Units 10:19 WBC (3.8-10.6) k/uL Hgb (11.4-16.0) gm/dL Hct (34.0-46.0) % MCHC (31.0-37.0) g/dL RDW (11.5-15.5) % Neutrophils # (1.3-7.7) k/uL Lymphocytes # (1.0-4.8) k/uL PT (9.0-12.0) sec INR (<1.1) BUN (7-17) mg/dL Glucose (74-99) mg/dL POC Glucose (mg/dL) 201 H (75-99) mg/dL Hemoglobin A1c (4.2-6.1) % Total Protein (6.3-8.2) g/dL Albumin (3.5-5.0) g/dL Crossmatch Microbiology - Last 24 Hours (Table) 05/21/16 12:55 Blood Culture - Preliminary Blood No Growth after 48 hours Assessment and Plan Plan: assessment Pneumonia with sepsis Acute exacerbation of chronic obstructive pulmonary disease Acute on chronic systolic congestive heart failure exacerbation Elevated troponins Acute anemia secondary to chronic blood loss and suspected lower GI bleed Chronic atrial fibrillation Diabetes mellitus insulin-dependent Plan Medications have been reviewed and will be continued as ordered. Cardiology is also on consult. Oral Lasix has been held, IV Lasix will be started. Stool for occult blood have been ordered. We would decrease the Levaquin from 750 mg to 500 mg daily. Repeat chest x-ray in the morning. Continue with supportive care. We will continue to monitor labs and adjust treatment as necessary. I performed an examination of the patient and discussed their management with the nurse practitioner. I have reviewed the nurse practitioner's note and agree with the documented findings and plan of care.
[2016-05-24 14:08] LABS: Glucose,Whole Blood 162 mg/dL (75-99)
[2016-05-24] MEDS: FUROSEMIDE 10 MG/ML 4 ML VIAL IV SCH ×2 (14:13→21:08)
--- NOTE | 2016-05-24 14:42 | P.PN ---
Subjective Principal diagnosis: A. fib with slow ventricular response This is a 76-year-old female with known history of chronic persistent atrial fibrillation, peripheral vascular disease, status post thrombectomy, COPD , hypertension, who was admitted to the hospital with symptoms of shortness of breath and associated fever thought to be secondary to pneumonia with COPD exacerbation. Cardiology consultation was requested because of episodes of pauses. Patient has known chronic persistent atrial fibrillation. Patient was on Lanoxin, Cardizem, Toprol. Patient did have an echo performed her last admission which revealed moderate LV systolic dysfunction. Cardizem and Lanoxin were discontinued. Patient continues to be on metoprolol tartrate 100 mg one tablet by mouth twice a day. Heart rate maintaining in the 60s, no further pauses noted. Patient states she started to cough up significant amounts of sputum. Overall her lungs are clear. INR today 6.6. Objective - Vital Signs Vital signs: Vital Signs Temp 97 F L 05/24/16 11:32 Pulse 92 05/24/16 13:35 Resp 22 05/24/16 11:32 BP 146/65 05/24/16 11:32 Pulse Ox 93 L 05/24/16 11:32 Intake & Output 05/23/16 05/24/16 05/24/16 18:59 06:59 18:59 Intake Total 1205.567 273.358 492.475 Output Total 1400 540 Balance 1205.567 -1126.642 -47.525 Weight 112.5 kg 112.5 kg Intake: IV 29 210 0.9% NS FLUSH 15 10 Insulin Regular 100 unit 40 In Sodium Chloride 0.9% 100 ml @ Titrate IV .Q0M [facility] Rx#:[id number] Invasive Line 1 14 Sodium Chloride 0.9% 1, 160 000 ml @ 20 mls/hr IV . Q24H [facility] Rx#:[id number] Intake, IV Titration 33.567 63.358 12.475 Amount Insulin Regular 100 unit 33.567 63.358 12.475 In Sodium Chloride 0.9% 100 ml @ Titrate IV .Q0M [facility] Rx#:[id number] Oral 833 480 Blood Product 310 Rc As-1 Unit 310 [id number] Output: Urine 1400 540 Other: Voiding Method Bedpan Bedpan Bedpan # Voids 1 1 - Exam PHYSICAL EXAMINATION: HEENT: Head is atraumatic, normocephalic. Pupils equal, round. Neck is supple. There is no elevated jugular venous pressure. HEART EXAMINATION: Heart S1 and S2 irregularly irregular with systolic murmur. CHEST EXAMINATION: Lungs reveal scattered coarse rhonchi that clear with cough. ABDOMEN: Soft, obese, nontender. Bowel sounds are heard. No organomegaly noted. EXTREMITIES: 1+ peripheral pulses with no evidence of peripheral edema and no calf tenderness noted. NEUROLOGIC patient is awake, alert and oriented -3. . - Labs CBC & Chem 7: 05/24/16 11:16 05/24/16 06:02 Labs: Abnormal Lab Results - Last 24 Hours (Table) 05/23/16 05/23/16 05/23/16 Range/Units 07:03 09:33 16:33 WBC (3.8-10.6) k/uL RBC (3.80-5.40) m/uL Hgb (11.4-16.0) gm/dL Hct (34.0-46.0) % MCH (25.0-35.0) pg MCHC (31.0-37.0) g/dL RDW (11.5-15.5) % Neutrophils # (1.3-7.7) k/uL Lymphocytes # (1.0-4.8) k/uL PT (9.0-12.0) sec INR (<1.1) BUN (7-17) mg/dL Glucose (74-99) mg/dL POC Glucose (mg/dL) 422 H (75-99) mg/dL Hemoglobin A1c 7.4 H (4.2-6.1) % Total Protein (6.3-8.2) g/dL Albumin (3.5-5.0) g/dL Crossmatch See Detail 05/23/16 05/23/16 05/23/16 Range/Units 17:50 18:31 19:02 WBC (3.8-10.6) k/uL RBC (3.80-5.40) m/uL Hgb (11.4-16.0) gm/dL Hct (34.0-46.0) % MCH (25.0-35.0) pg MCHC (31.0-37.0) g/dL RDW (11.5-15.5) % Neutrophils # (1.3-7.7) k/uL Lymphocytes # (1.0-4.8) k/uL PT (9.0-12.0) sec INR (<1.1) BUN (7-17) mg/dL Glucose (74-99) mg/dL POC Glucose (mg/dL) 390 H 344 H 320 H (75-99) mg/dL Hemoglobin A1c (4.2-6.1) % Total Protein (6.3-8.2) g/dL Albumin (3.5-5.0) g/dL Crossmatch 05/23/16 05/23/16 05/23/16 Range/Units 19:33 20:05 20:36 WBC (3.8-10.6) k/uL RBC (3.80-5.40) m/uL Hgb (11.4-16.0) gm/dL Hct (34.0-46.0) % MCH (25.0-35.0) pg MCHC (31.0-37.0) g/dL RDW (11.5-15.5) % Neutrophils # (1.3-7.7) k/uL Lymphocytes # (1.0-4.8) k/uL PT (9.0-12.0) sec INR (<1.1) BUN (7-17) mg/dL Glucose (74-99) mg/dL POC Glucose (mg/dL) 293 H 269 H 263 H (75-99) mg/dL Hemoglobin A1c (4.2-6.1) % Total Protein (6.3-8.2) g/dL Albumin (3.5-5.0) g/dL Crossmatch 05/23/16 05/23/16 05/24/16 Range/Units 21:17 23:04 01:15 WBC (3.8-10.6) k/uL RBC (3.80-5.40) m/uL Hgb (11.4-16.0) gm/dL Hct (34.0-46.0) % MCH (25.0-35.0) pg MCHC (31.0-37.0) g/dL RDW (11.5-15.5) % Neutrophils # (1.3-7.7) k/uL Lymphocytes # (1.0-4.8) k/uL PT (9.0-12.0) sec INR (<1.1) BUN (7-17) mg/dL Glucose (74-99) mg/dL POC Glucose (mg/dL) 215 H 166 H 127 H (75-99) mg/dL Hemoglobin A1c (4.2-6.1) % Total Protein (6.3-8.2) g/dL Albumin (3.5-5.0) g/dL Crossmatch 05/24/16 05/24/16 05/24/16 Range/Units 02:04 03:01 04:08 WBC (3.8-10.6) k/uL RBC (3.80-5.40) m/uL Hgb (11.4-16.0) gm/dL Hct (34.0-46.0) % MCH (25.0-35.0) pg MCHC (31.0-37.0) g/dL RDW (11.5-15.5) % Neutrophils # (1.3-7.7) k/uL Lymphocytes # (1.0-4.8) k/uL PT (9.0-12.0) sec INR (<1.1) BUN (7-17) mg/dL Glucose (74-99) mg/dL POC Glucose (mg/dL) 129 H 129 H 150 H (75-99) mg/dL Hemoglobin A1c (4.2-6.1) % Total Protein (6.3-8.2) g/dL Albumin (3.5-5.0) g/dL Crossmatch 05/24/16 05/24/16 05/24/16 Range/Units 05:59 06:02 06:02 WBC 11.4 H (3.8-10.6) k/uL RBC (3.80-5.40) m/uL Hgb 9.8 L D (11.4-16.0) gm/dL Hct 33.2 L (34.0-46.0) % MCH (25.0-35.0) pg MCHC 29.4 L (31.0-37.0) g/dL RDW 17.5 H (11.5-15.5) % Neutrophils # 10.3 H (1.3-7.7) k/uL Lymphocytes # 0.5 L (1.0-4.8) k/uL PT 67.8 H (9.0-12.0) sec INR 6.6 H* (<1.1) BUN (7-17) mg/dL Glucose (74-99) mg/dL POC Glucose (mg/dL) 130 H (75-99) mg/dL Hemoglobin A1c (4.2-6.1) % Total Protein (6.3-8.2) g/dL Albumin (3.5-5.0) g/dL Crossmatch 05/24/16 05/24/16 05/24/16 Range/Units 06:02 08:33 10:19 WBC (3.8-10.6) k/uL RBC (3.80-5.40) m/uL Hgb (11.4-16.0) gm/dL Hct (34.0-46.0) % MCH (25.0-35.0) pg MCHC (31.0-37.0) g/dL RDW (11.5-15.5) % Neutrophils # (1.3-7.7) k/uL Lymphocytes # (1.0-4.8) k/uL PT (9.0-12.0) sec INR (<1.1) BUN 42 H (7-17) mg/dL Glucose 124 H (74-99) mg/dL POC Glucose (mg/dL) 258 H 201 H (75-99) mg/dL Hemoglobin A1c (4.2-6.1) % Total Protein 5.6 L (6.3-8.2) g/dL Albumin 2.8 L (3.5-5.0) g/dL Crossmatch 05/24/16 05/24/16 05/24/16 Range/Units 11:08 11:16 11:44 WBC 12.5 H (3.8-10.6) k/uL RBC 3.63 L (3.80-5.40) m/uL Hgb 9.0 L (11.4-16.0) gm/dL Hct 30.7 L (34.0-46.0) % MCH 24.7 L (25.0-35.0) pg MCHC 29.2 L (31.0-37.0) g/dL RDW 17.9 H (11.5-15.5) % Neutrophils # (1.3-7.7) k/uL Lymphocytes # (1.0-4.8) k/uL PT (9.0-12.0) sec INR (<1.1) BUN (7-17) mg/dL Glucose (74-99) mg/dL POC Glucose (mg/dL) 202 H 185 H (75-99) mg/dL Hemoglobin A1c (4.2-6.1) % Total Protein (6.3-8.2) g/dL Albumin (3.5-5.0) g/dL Crossmatch 05/24/16 Range/Units 13:57 WBC (3.8-10.6) k/uL RBC (3.80-5.40) m/uL Hgb (11.4-16.0) gm/dL Hct (34.0-46.0) % MCH (25.0-35.0) pg MCHC (31.0-37.0) g/dL RDW (11.5-15.5) % Neutrophils # (1.3-7.7) k/uL Lymphocytes # (1.0-4.8) k/uL PT (9.0-12.0) sec INR (<1.1) BUN (7-17) mg/dL Glucose (74-99) mg/dL POC Glucose (mg/dL) 162 H (75-99) mg/dL Hemoglobin A1c (4.2-6.1) % Total Protein (6.3-8.2) g/dL Albumin (3.5-5.0) g/dL Crossmatch Microbiology - Last 24 Hours (Table) 05/21/16 12:55 Blood Culture - Preliminary Blood No Growth after 48 hours Assessment and Plan (1) Chronic a-fib Status: Acute (2) Sinus pause Status: Acute (3) Chronic anemia Status: Acute (4) Pneumonia Status: Acute (5) COPD (chronic obstructive pulmonary disease) Status: Acute (6) Peripheral arterial occlusive disease Status: Chronic (7) HTN (hypertension) Status: Acute Plan: From cardiology's perspective, we will continue to hold the patient's Lanoxin and Cardizem. Continue Norvasc and beta mel. We will request a repeat chest x-ray tomorrow. Continue current medications. Check lytes BUN and creatinine, PT/INR in the morning. DNP note has been reviewed, I agree with a documented findings and plan of care. Patient was seen and examined.
[2016-05-24 16:08] LABS: Glucose,Whole Blood 108 mg/dL (75-99)
[2016-05-24 17:19] LABS: Glucose,Whole Blood 89 mg/dL (75-99)
--- NOTE | 2016-05-24 17:29 | P.PN ---
Subjective Principal diagnosis: Pneumonia with sepsis Patient is a 76-year-old female who was readmitted to [facility] due to fever cough and worsening shortness of breath She had evidence of pneumonia with sepsis, she also had evidence of anemia was hemoglobin of 7.8, evidence of acute congestive heart failure exacerbation, she has known history of atrial fibrillation. Today patient was feeling worse she was having significant shortness of breath, O2 sat duration was down to 85% on 2 L nasal cannula She received extra doses of Lasix She also received 1 dose of IV albumin 25 g followed by Lasix 20 mg IV Objective - Vital Signs Vital signs: Vital Signs Temp 97 F L 05/24/16 16:00 Pulse 94 05/24/16 16:51 Resp 20 05/24/16 16:00 BP 150/80 05/24/16 16:00 Pulse Ox 93 L 05/24/16 16:00 Intake & Output 05/23/16 05/24/16 05/24/16 18:59 06:59 18:59 Intake Total 1205.567 273.358 548.367 Output Total 1400 1140 Balance 1205.567 -1126.642 -591.633 Weight 112.5 kg 112.5 kg Intake: IV 29 210 0.9% NS FLUSH 15 10 Insulin Regular 100 unit 40 In Sodium Chloride 0.9% 100 ml @ Titrate IV .Q0M [facility] Rx#:[id number] Invasive Line 1 14 Sodium Chloride 0.9% 1, 160 000 ml @ 20 mls/hr IV . Q24H [facility] Rx#:[id number] Intake, IV Titration 33.567 63.358 68.367 Amount Albumin Human 25% 50 ml 50 In Empty Bag 1 bag @ 100 mls/hr IVPB ONCE ONE Rx#: [id number] Insulin Regular 100 unit 33.567 63.358 18.367 In Sodium Chloride 0.9% 100 ml @ Titrate IV .Q0M [facility] Rx#:[id number] Oral 833 480 Blood Product 310 Rc As-1 Unit 310 [id number] Output: Urine 1400 1140 Other: Voiding Method Bedpan Bedpan Bedpan # Voids 1 1 - Exam In general patient is alert and oriented 3 in no apparent distress HEENT head normocephalic and atraumatic Neck is supple no JVD no goiter no lymphadenopathy Chest exam reveals a scattered crackles in both lung olivares no wheezing Cardiac exam reveals regular heart sounds no murmurs Abdomen is soft nontender no organomegaly Extremity exam reveals no edema no cyanosis or clubbing - Labs CBC & Chem 7: 05/24/16 11:16 05/24/16 06:02 Labs: Abnormal Lab Results - Last 24 Hours (Table) 05/23/16 05/23/16 05/23/16 Range/Units 07:03 17:50 18:31 WBC (3.8-10.6) k/uL RBC (3.80-5.40) m/uL Hgb (11.4-16.0) gm/dL Hct (34.0-46.0) % MCH (25.0-35.0) pg MCHC (31.0-37.0) g/dL RDW (11.5-15.5) % Neutrophils # (1.3-7.7) k/uL Lymphocytes # (1.0-4.8) k/uL PT (9.0-12.0) sec INR (<1.1) BUN (7-17) mg/dL Glucose (74-99) mg/dL POC Glucose (mg/dL) 390 H 344 H (75-99) mg/dL Hemoglobin A1c 7.4 H (4.2-6.1) % Total Protein (6.3-8.2) g/dL Albumin (3.5-5.0) g/dL 05/23/16 05/23/16 05/23/16 Range/Units 19:02 19:33 20:05 WBC (3.8-10.6) k/uL RBC (3.80-5.40) m/uL Hgb (11.4-16.0) gm/dL Hct (34.0-46.0) % MCH (25.0-35.0) pg MCHC (31.0-37.0) g/dL RDW (11.5-15.5) % Neutrophils # (1.3-7.7) k/uL Lymphocytes # (1.0-4.8) k/uL PT (9.0-12.0) sec INR (<1.1) BUN (7-17) mg/dL Glucose (74-99) mg/dL POC Glucose (mg/dL) 320 H 293 H 269 H (75-99) mg/dL Hemoglobin A1c (4.2-6.1) % Total Protein (6.3-8.2) g/dL Albumin (3.5-5.0) g/dL 05/23/16 05/23/16 05/23/16 Range/Units 20:36 21:17 23:04 WBC (3.8-10.6) k/uL RBC (3.80-5.40) m/uL Hgb (11.4-16.0) gm/dL Hct (34.0-46.0) % MCH (25.0-35.0) pg MCHC (31.0-37.0) g/dL RDW (11.5-15.5) % Neutrophils # (1.3-7.7) k/uL Lymphocytes # (1.0-4.8) k/uL PT (9.0-12.0) sec INR (<1.1) BUN (7-17) mg/dL Glucose (74-99) mg/dL POC Glucose (mg/dL) 263 H 215 H 166 H (75-99) mg/dL Hemoglobin A1c (4.2-6.1) % Total Protein (6.3-8.2) g/dL Albumin (3.5-5.0) g/dL 05/24/16 05/24/16 05/24/16 Range/Units 01:15 02:04 03:01 WBC (3.8-10.6) k/uL RBC (3.80-5.40) m/uL Hgb (11.4-16.0) gm/dL Hct (34.0-46.0) % MCH (25.0-35.0) pg MCHC (31.0-37.0) g/dL RDW (11.5-15.5) % Neutrophils # (1.3-7.7) k/uL Lymphocytes # (1.0-4.8) k/uL PT (9.0-12.0) sec INR (<1.1) BUN (7-17) mg/dL Glucose (74-99) mg/dL POC Glucose (mg/dL) 127 H 129 H 129 H (75-99) mg/dL Hemoglobin A1c (4.2-6.1) % Total Protein (6.3-8.2) g/dL Albumin (3.5-5.0) g/dL 05/24/16 05/24/16 05/24/16 Range/Units 04:08 05:59 06:02 WBC 11.4 H (3.8-10.6) k/uL RBC (3.80-5.40) m/uL Hgb 9.8 L D (11.4-16.0) gm/dL Hct 33.2 L (34.0-46.0) % MCH (25.0-35.0) pg MCHC 29.4 L (31.0-37.0) g/dL RDW 17.5 H (11.5-15.5) % Neutrophils # 10.3 H (1.3-7.7) k/uL Lymphocytes # 0.5 L (1.0-4.8) k/uL PT (9.0-12.0) sec INR (<1.1) BUN (7-17) mg/dL Glucose (74-99) mg/dL POC Glucose (mg/dL) 150 H 130 H (75-99) mg/dL Hemoglobin A1c (4.2-6.1) % Total Protein (6.3-8.2) g/dL Albumin (3.5-5.0) g/dL 05/24/16 05/24/16 05/24/16 Range/Units 06:02 06:02 08:33 WBC (3.8-10.6) k/uL RBC (3.80-5.40) m/uL Hgb (11.4-16.0) gm/dL Hct (34.0-46.0) % MCH (25.0-35.0) pg MCHC (31.0-37.0) g/dL RDW (11.5-15.5) % Neutrophils # (1.3-7.7) k/uL Lymphocytes # (1.0-4.8) k/uL PT 67.8 H (9.0-12.0) sec INR 6.6 H* (<1.1) BUN 42 H (7-17) mg/dL Glucose 124 H (74-99) mg/dL POC Glucose (mg/dL) 258 H (75-99) mg/dL Hemoglobin A1c (4.2-6.1) % Total Protein 5.6 L (6.3-8.2) g/dL Albumin 2.8 L (3.5-5.0) g/dL 05/24/16 05/24/16 05/24/16 Range/Units 10:19 11:08 11:16 WBC 12.5 H (3.8-10.6) k/uL RBC 3.63 L (3.80-5.40) m/uL Hgb 9.0 L (11.4-16.0) gm/dL Hct 30.7 L (34.0-46.0) % MCH 24.7 L (25.0-35.0) pg MCHC 29.2 L (31.0-37.0) g/dL RDW 17.9 H (11.5-15.5) % Neutrophils # (1.3-7.7) k/uL Lymphocytes # (1.0-4.8) k/uL PT (9.0-12.0) sec INR (<1.1) BUN (7-17) mg/dL Glucose (74-99) mg/dL POC Glucose (mg/dL) 201 H 202 H (75-99) mg/dL Hemoglobin A1c (4.2-6.1) % Total Protein (6.3-8.2) g/dL Albumin (3.5-5.0) g/dL 05/24/16 05/24/16 05/24/16 Range/Units 11:44 13:57 15:56 WBC (3.8-10.6) k/uL RBC (3.80-5.40) m/uL Hgb (11.4-16.0) gm/dL Hct (34.0-46.0) % MCH (25.0-35.0) pg MCHC (31.0-37.0) g/dL RDW (11.5-15.5) % Neutrophils # (1.3-7.7) k/uL Lymphocytes # (1.0-4.8) k/uL PT (9.0-12.0) sec INR (<1.1) BUN (7-17) mg/dL Glucose (74-99) mg/dL POC Glucose (mg/dL) 185 H 162 H 108 H (75-99) mg/dL Hemoglobin A1c (4.2-6.1) % Total Protein (6.3-8.2) g/dL Albumin (3.5-5.0) g/dL Microbiology - Last 24 Hours (Table) 05/21/16 12:55 Blood Culture - Preliminary Blood No Growth after 72 hours Assessment and Plan Plan: 1. Pneumonia with sepsis: Chest x-ray showing cardiomegaly with peripheral vascular congestion and patchy density in the right lower lobe. P chest x-ray showing improvement in right lower lobe infiltrate 2. Acute on chronic systolic CHF exacerbation. Most recent echo shows an EF of 40-45%. BNP elevated in the 3000's. Chest x-ray showing peripheral vascular congestion. Patient received multiple extra doses of IV Lasix due to worsening shortness of breath and O2 desaturations this morning 3. Cardiac pauses. Continue with telemetry monitoring. Cardiology has been consulted. 4. Insulin-dependent diabetes mellitus, A1c is 7.2 continue was Levemir and NovoLog 5. Elevated troponin with no chest pain. Cardiology following 6. Acute anemia secondary to chronic blood loss and suspected lower GI bleed. Hemoglobin is 7.7. Was unable to have a colonoscopy during last admission due to multiple complications. She had a EGD last month. Hemoglobin is dropping despite multiple IV iron infusion at this time will proceed was 1 unit of red blood cell transfusion 7. Chronic atrial fibrillation maintained on Coumadin for anticoagulation. Monitor PT/INRs closely due to Coumadin and Levaquin interaction. 8. History of COPD: Continue with nebulizer treatments. 9. Coagulopathy elevated INR of 5.6 today Will hold Coumadin and monitor INR 10. Poor nutritional status with the moderate to severe protein calorie malnutrition received 1 dose of IV albumin today, nutrition consult was initiated
[2016-05-24 21:01] LABS: Glucose,Whole Blood 255 mg/dL (75-99)
[2016-05-24] MEDS: INSULIN DETEMIR 100 UNIT/ML 10 ML VIAL SQ SCH (21:09)
[2016-05-24] MEDS: LOSARTAN 50 MG TAB PO SCH (21:11)
[2016-05-24] MEDS: PRAVASTATIN SODIUM 20 MG TAB PO SCH (21:12)
[2016-05-24] MEDS: MONTELUKAST 10 MG TAB PO SCH (21:12)
[2016-05-25] MEDS: HYDROcodone/APAP 10-325MG 1 EACH TAB PO PRN (03:30)
[2016-05-25 06:11] LABS: Glucose,Whole Blood 346 mg/dL (75-99)
[2016-05-25 06:49] LABS: Anisocytosis Slight; Basophils % (A) 0 %; CH 24.7; CHCM 28.4; Eosinophils % (A) 0 %; HCT 32.3 % (34.0-46.0); HGB 9.3 gm/dL (11.4-16.0); Hypochromasia Marked; INR 1.8 (<1.1); Luc # (Auto) 0.11; Luc % (Auto) 1; Lymphocytes # (A) 0.3 k/uL (1.0-4.8); Lymphocytes % (A) 3 %; MCH 25.1 pg (25.0-35.0); MCV 86.6 fL (80.0-100.0); Mean Platelet Volume 8.1; Monocytes # (A) 0.4 k/uL (0-1.0); Monocytes % (A) 4 %; Neutrophils # (A) 8.4 k/uL (1.3-7.7); Neutrophils % (A) 92 %; Poikilocytosis Moderate; Prothrombin Time 16.9 sec (9.0-12.0); RBC 3.73 m/uL (3.80-5.40); RDW 18.2 % (11.5-15.5); WBC 9.2 k/uL (3.8-10.6); WBC (Perox) 9.89
[2016-05-25] MEDS: PANTOPRAZOLE 40 MG TABLET PO SCH (06:53)
[2016-05-25 06:54] LABS: ALT 41 U/L (9-52); AST 19 U/L (14-36); Alkaline Phosphatase 62 U/L (38-126); Anion Gap 13 mmol/L; Blood Urea Nitrogen 42 mg/dL (7-17); Calcium 8.4 mg/dL (8.4-10.2); Carbon Dioxide 32 mmol/L (22-30); Chloride 96 mmol/L (98-107); Glucose 333 mg/dL (74-99); Non-African American GFR(MDRD) >60 (>60 ml/min/1.73 sqM); Potassium 4.5 mmol/L (3.5-5.1); Sodium 141 mmol/L (137-145); Total Bilirubin 0.6 mg/dL (0.2-1.3); Total Protein 5.8 g/dL (6.3-8.2)
[2016-05-25] MEDS ORDERED: INSULIN LISPRO (humaLOG) 300 UNIT/3 ML VIAL SQ ONE ×2 (07:07→11:59)
[2016-05-25] MEDS: INSULIN LISPRO (humaLOG) 300 UNIT/3 ML VIAL SQ SCH ×4 (07:16→21:01)
[2016-05-25] MEDS: IPRATROPIUM-ALBUTEROL 3 ML NEB INHALATION SCH ×4 (08:24→21:14)
[2016-05-25] MEDS: BUDESONIDE 1 MG/2 ML NEBU INHALATION SCH ×2 (08:24→21:14)
[2016-05-25] MEDS: INSULIN DETEMIR 100 UNIT/ML 10 ML VIAL SQ SCH ×2 (08:50→21:02)
[2016-05-25] MEDS: ALPRAZolam 0.25 MG TAB PO SCH ×2 (08:51→20:45)
[2016-05-25] MEDS: LEVOFLOXACIN 500 MG TAB PO SCH (08:51)
[2016-05-25] MEDS: METOPROLOL SUCCINATE (ER) 100 MG TAB.ER.24H PO SCH ×2 (08:51→20:46)
[2016-05-25] MEDS: FUROSEMIDE 10 MG/ML 4 ML VIAL IV SCH ×2 (08:51→20:46)
[2016-05-25 11:56] LABS: Glucose,Whole Blood 469 mg/dL (75-99)
--- NOTE | 2016-05-25 11:56 | PN ---
DATE OF SERVICE: 05/25/2016 She is less short of breath, slept well with the CPAP on. On physical examination, her blood pressure 161/64, respiratory rate of 18, pulse rate of 80, temperature 97.8, O2 sat on CPAP is 91%. HEENT with CPAP mask in place. Chest reveals occasional wheeze. Cardiovascular system reveals an S1 and S2. Abdomen is soft. There is 1+ to 2+ pedal edema. White count is 9.2, hemoglobin of 9.3. Sodium 141, potassium 4.5, chloride 96, bicarb 32, BUN 42, creatinine 0.82, blood cultures have shown no growth. IMPRESSION: 1. Pneumonia. 2. Chronic obstructive pulmonary disease with exacerbation. 3. Cor pulmonale. 4. Chronic anemia with an acute component as well. Continue Levaquin, bronchodilators, aerosolized steroids, montelukast, and oral prednisone. Increase her activity level. Her prognosis at this time is guarded.
[2016-05-25] MEDS ORDERED: ENOXAPARIN 80 MG/0.8 ML SYRINGE SQ STA (12:16)
[2016-05-25 13:46] LABS: Anisocytosis Slight; CH 24.5; HDW 4.37; HGB 9.6 gm/dL (11.4-16.0); Hypochromasia Marked; MCH 25.3 pg (25.0-35.0); MCV 84.4 fL (80.0-100.0); Mean Platelet Volume 8.7; Poikilocytosis Moderate; RBC 3.79 m/uL (3.80-5.40); RDW 18.2 % (11.5-15.5); WBC 10.1 k/uL (3.8-10.6)
--- NOTE | 2016-05-25 14:25 | P.PN ---
Subjective Principal diagnosis: A. fib with slow ventricular response This is a 76-year-old female with known history of chronic persistent atrial fibrillation, peripheral vascular disease, status post thrombectomy, COPD , hypertension, who was admitted to the hospital with symptoms of shortness of breath and associated fever thought to be secondary to pneumonia with COPD exacerbation. Cardiology consultation was requested because of episodes of pauses. Patient has known chronic persistent atrial fibrillation. Patient was on Lanoxin, Cardizem, Toprol. Patient did have an echo performed her last admission which revealed moderate LV systolic dysfunction. Cardizem and Lanoxin were discontinued. Patient continues to be on metoprolol tartrate 100 mg one tablet by mouth twice a day. Heart rate maintaining in the 60s, no further pauses noted. A shunt seen and examined today, was to have productive cough however much improved overall. She was encouraged regarding the use of her incentive spirometry. INR today 1.8. Objective - Vital Signs Vital signs: Vital Signs Temp 97 F L 05/25/16 09:00 Pulse 80 05/25/16 13:35 Resp 18 05/25/16 11:30 BP 151/66 05/25/16 11:30 Pulse Ox 94 L 05/25/16 11:30 Intake & Output 05/24/16 05/25/16 05/25/16 18:59 06:59 18:59 Intake Total 788.367 360 Output Total 1140 1150 700 Balance -351.633 -1150 -340 Weight 112.5 kg 113 kg Intake: Intake, IV Titration 68.367 Amount Albumin Human 25% 50 ml 50 In Empty Bag 1 bag @ 100 mls/hr IVPB ONCE ONE Rx#: [id number] Insulin Regular 100 unit 18.367 In Sodium Chloride 0.9% 100 ml @ Titrate IV .Q0M [facility] Rx#:[id number] Oral 720 360 Output: Urine 1140 1150 700 Other: Voiding Method Bedpan Bedpan Bedpan # Voids 1 1 1 # Bowel Movements 2 - Exam PHYSICAL EXAMINATION: HEENT: Head is atraumatic, normocephalic. Pupils equal, round. Neck is supple. There is no elevated jugular venous pressure. HEART EXAMINATION: Heart S1 and S2 irregularly irregular with systolic murmur. CHEST EXAMINATION: Lungs reveal scattered coarse rhonchi that clear with cough. ABDOMEN: Soft, obese, nontender. Bowel sounds are heard. No organomegaly noted. EXTREMITIES: 1+ peripheral pulses with no evidence of peripheral edema and no calf tenderness noted. NEUROLOGIC patient is awake, alert and oriented -3. . - Labs CBC & Chem 7: 05/25/16 12:22 05/25/16 05:47 Labs: Abnormal Lab Results - Last 24 Hours (Table) 05/24/16 05/24/16 05/25/16 Range/Units 15:56 21:01 05:47 RBC 3.73 L (3.80-5.40) m/uL Hgb 9.3 L (11.4-16.0) gm/dL Hct 32.3 L (34.0-46.0) % MCHC 29.0 L (31.0-37.0) g/dL RDW 18.2 H (11.5-15.5) % Neutrophils # 8.4 H (1.3-7.7) k/uL Lymphocytes # 0.3 L (1.0-4.8) k/uL PT (9.0-12.0) sec Chloride (98-107) mmol/L Carbon Dioxide (22-30) mmol/L BUN (7-17) mg/dL Glucose (74-99) mg/dL POC Glucose (mg/dL) 108 H 255 H (75-99) mg/dL Total Protein (6.3-8.2) g/dL Albumin (3.5-5.0) g/dL 05/25/16 05/25/16 05/25/16 Range/Units 05:47 05:47 06:10 RBC (3.80-5.40) m/uL Hgb (11.4-16.0) gm/dL Hct (34.0-46.0) % MCHC (31.0-37.0) g/dL RDW (11.5-15.5) % Neutrophils # (1.3-7.7) k/uL Lymphocytes # (1.0-4.8) k/uL PT 16.9 H (9.0-12.0) sec Chloride 96 L (98-107) mmol/L Carbon Dioxide 32 H (22-30) mmol/L BUN 42 H (7-17) mg/dL Glucose 333 H (74-99) mg/dL POC Glucose (mg/dL) 346 H (75-99) mg/dL Total Protein 5.8 L (6.3-8.2) g/dL Albumin 3.0 L (3.5-5.0) g/dL 05/25/16 05/25/16 Range/Units 11:36 12:22 RBC 3.79 L (3.80-5.40) m/uL Hgb 9.6 L (11.4-16.0) gm/dL Hct 32.0 L (34.0-46.0) % MCHC 30.0 L (31.0-37.0) g/dL RDW 18.2 H (11.5-15.5) % Neutrophils # (1.3-7.7) k/uL Lymphocytes # (1.0-4.8) k/uL PT (9.0-12.0) sec Chloride (98-107) mmol/L Carbon Dioxide (22-30) mmol/L BUN (7-17) mg/dL Glucose (74-99) mg/dL POC Glucose (mg/dL) 469 H (75-99) mg/dL Total Protein (6.3-8.2) g/dL Albumin (3.5-5.0) g/dL Microbiology - Last 24 Hours (Table) 05/21/16 12:55 Blood Culture - Preliminary Blood No Growth after 72 hours Assessment and Plan (1) Chronic a-fib Status: Acute (2) Sinus pause Status: Acute (3) Chronic anemia Status: Acute (4) Pneumonia Status: Acute (5) COPD (chronic obstructive pulmonary disease) Status: Acute (6) Peripheral arterial occlusive disease Status: Chronic (7) HTN (hypertension) Status: Acute Plan: From cardiology's perspective, we will continue to hold the patient's Lanoxin and Cardizem. Continue Norvasc and beta mel. We will follow this patient with you now on an as-needed basis only, please hesitate to call with any questions. DNP note has been reviewed, I agree with a documented findings and plan of care. Patient was seen and examined.
[2016-05-25 16:35] LABS: Glucose,Whole Blood 300 mg/dL (75-99)
--- NOTE | 2016-05-25 17:12 | XR ---
EXAMINATION TYPE: XR chest 2V DATE OF EXAM: 05/25/2016 4:58 PM COMPARISON: 05/22/2016 HISTORY: Chest pain. Pneumonia. TECHNIQUE: Frontal and lateral views of the chest are obtained. FINDINGS: Heart is enlarged. There is mild pulmonary vascular congestion. There is slight blunting o f costophrenic angles. There is neural stimulator in the mid thoracic spine. There are chest leads. T here is coarsening of interstitial pulmonary markings. IMPRESSION: There are changes consistent with pulmonary fibrosis and mild heart failure without hassan ge compared to last exam. Cardiomegaly.
[2016-05-25] MEDS ORDERED: WARFARIN 2 MG TAB PO ONE (18:00)
[2016-05-25] MEDS: IPRATROPIUM-ALBUTEROL 3 ML NEB INHALATION PRN (18:03)
[2016-05-25] MEDS ORDERED: FUROSEMIDE 10 MG/ML 2 ML VIAL IV ONE (18:27)
--- NOTE | 2016-05-25 18:56 | P.PN ---
Subjective Principal diagnosis: Pneumonia with sepsis Patient is a 76-year-old female who was readmitted to [facility] due to fever cough and worsening shortness of breath She had evidence of pneumonia with sepsis, she also had evidence of anemia was hemoglobin of 7.8, evidence of acute congestive heart failure exacerbation, she has known history of atrial fibrillation. Today patient was feeling worse she was having significant shortness of breath, O2 sat duration was down to 85% on 2 L nasal cannula She received extra doses of Lasix She also received 1 dose of IV albumin 25 g followed by Lasix 20 mg IV Objective - Vital Signs Vital signs: Vital Signs Temp 97.7 F 05/25/16 17:05 Pulse 80 05/25/16 18:14 Resp 20 05/25/16 18:31 BP 149/69 05/25/16 17:05 Pulse Ox 90 L 05/25/16 18:31 Intake & Output 05/24/16 05/25/16 05/25/16 18:59 06:59 18:59 Intake Total 951.448 1822 Output Total 1140 1150 1050 Balance -351.633 -1150 310 Weight 112.5 kg 113 kg Intake: Intake, IV Titration 68.367 Amount Albumin Human 25% 50 ml 50 In Empty Bag 1 bag @ 100 mls/hr IVPB ONCE ONE Rx#: [id number] Insulin Regular 100 unit 18.367 In Sodium Chloride 0.9% 100 ml @ Titrate IV .Q0M [facility] Rx#:[id number] Oral 720 1360 Output: Urine 1140 1150 1050 Other: Voiding Method Bedpan Bedpan Bedpan # Voids 1 1 2 # Bowel Movements 2 - Exam In general patient is alert and oriented 3 in no apparent distress HEENT head normocephalic and atraumatic Neck is supple no JVD no goiter no lymphadenopathy Chest exam reveals a scattered crackles in both lung olivares no wheezing Cardiac exam reveals regular heart sounds no murmurs Abdomen is soft nontender no organomegaly Extremity exam reveals no edema no cyanosis or clubbing - Labs CBC & Chem 7: 05/25/16 12:22 05/25/16 05:47 Labs: Abnormal Lab Results - Last 24 Hours (Table) 05/24/16 05/25/16 05/25/16 Range/Units 21:01 05:47 05:47 RBC 3.73 L (3.80-5.40) m/uL Hgb 9.3 L (11.4-16.0) gm/dL Hct 32.3 L (34.0-46.0) % MCHC 29.0 L (31.0-37.0) g/dL RDW 18.2 H (11.5-15.5) % Neutrophils # 8.4 H (1.3-7.7) k/uL Lymphocytes # 0.3 L (1.0-4.8) k/uL PT 16.9 H (9.0-12.0) sec Chloride (98-107) mmol/L Carbon Dioxide (22-30) mmol/L BUN (7-17) mg/dL Glucose (74-99) mg/dL POC Glucose (mg/dL) 255 H (75-99) mg/dL Total Protein (6.3-8.2) g/dL Albumin (3.5-5.0) g/dL 05/25/16 05/25/16 05/25/16 Range/Units 05:47 06:10 11:36 RBC (3.80-5.40) m/uL Hgb (11.4-16.0) gm/dL Hct (34.0-46.0) % MCHC (31.0-37.0) g/dL RDW (11.5-15.5) % Neutrophils # (1.3-7.7) k/uL Lymphocytes # (1.0-4.8) k/uL PT (9.0-12.0) sec Chloride 96 L (98-107) mmol/L Carbon Dioxide 32 H (22-30) mmol/L BUN 42 H (7-17) mg/dL Glucose 333 H (74-99) mg/dL POC Glucose (mg/dL) 346 H 469 H (75-99) mg/dL Total Protein 5.8 L (6.3-8.2) g/dL Albumin 3.0 L (3.5-5.0) g/dL 05/25/16 05/25/16 Range/Units 12:22 16:29 RBC 3.79 L (3.80-5.40) m/uL Hgb 9.6 L (11.4-16.0) gm/dL Hct 32.0 L (34.0-46.0) % MCHC 30.0 L (31.0-37.0) g/dL RDW 18.2 H (11.5-15.5) % Neutrophils # (1.3-7.7) k/uL Lymphocytes # (1.0-4.8) k/uL PT (9.0-12.0) sec Chloride (98-107) mmol/L Carbon Dioxide (22-30) mmol/L BUN (7-17) mg/dL Glucose (74-99) mg/dL POC Glucose (mg/dL) 300 H (75-99) mg/dL Total Protein (6.3-8.2) g/dL Albumin (3.5-5.0) g/dL Microbiology - Last 24 Hours (Table) 05/21/16 12:55 Blood Culture - Preliminary Blood No Growth after 96 hours Assessment and Plan Plan: 1. Pneumonia with sepsis: Chest x-ray showing cardiomegaly with peripheral vascular congestion and patchy density in the right lower lobe. P chest x-ray showing improvement in right lower lobe infiltrate maintained on Levaquin 2. Acute on chronic systolic CHF exacerbation. Most recent echo shows an EF of 40-45%. BNP elevated in the 3000's. Chest x-ray showing peripheral vascular congestion. Patient received multiple extra doses of IV Lasix due to worsening shortness of breath and O2 desaturations this morning 3. Cardiac pauses. Continue with telemetry monitoring. Cardiology has been consulted. 4. Insulin-dependent diabetes mellitus, A1c is 7.2 continue was Levemir and NovoLog 5. Elevated troponin with no chest pain. Cardiology following 6. Acute anemia secondary to chronic blood loss and suspected lower GI bleed. Hemoglobin is 7.7. Was unable to have a colonoscopy during last admission due to multiple complications. She had a EGD last month. Hemoglobin is dropping despite multiple IV iron infusion at this time will proceed was 1 unit of red blood cell transfusion 7. Chronic atrial fibrillation maintained on Coumadin for anticoagulation. Monitor PT/INRs closely due to Coumadin and Levaquin interaction. 8. History of COPD: Continue with nebulizer treatments. 9. Coagulopathy elevated INR of 1.8 , she will be given 2 mg of Coumadin today she was also given a subcu injection of Lovenox will monitor INR 10. Poor nutritional status nutrition consult was initiated
[2016-05-25] MEDS: LOSARTAN 50 MG TAB PO SCH (20:46)
[2016-05-25] MEDS: DOCUSATE 100 MG CAP PO SCH (20:46)
[2016-05-25] MEDS: MONTELUKAST 10 MG TAB PO SCH (20:47)
[2016-05-25] MEDS: PRAVASTATIN SODIUM 20 MG TAB PO SCH (20:47)
[2016-05-25 20:58] LABS: Glucose,Whole Blood 192 mg/dL (75-99)
[2016-05-26] MEDS: HYDROcodone/APAP 10-325MG 1 EACH TAB PO PRN ×2 (03:57→17:37)
[2016-05-26 06:00] LABS: Glucose,Whole Blood 118 mg/dL (75-99)
[2016-05-26] MEDS: INSULIN LISPRO (humaLOG) 300 UNIT/3 ML VIAL SQ SCH ×4 (06:09→20:53)
[2016-05-26] MEDS: PANTOPRAZOLE 40 MG TABLET PO SCH (06:15)
[2016-05-26 07:18] LABS: Anisocytosis Slight; Basophils % (A) 0 %; CH 24.3; CHCM 28.4; Eosinophils % (A) 0 %; HCT 32.7 % (34.0-46.0); HDW 4.27; HGB 9.5 gm/dL (11.4-16.0); Hypochromasia Marked; Luc # (Auto) 0.12; Luc % (Auto) 1; Lymphocytes # (A) 0.9 k/uL (1.0-4.8); Lymphocytes % (A) 9 %; MCH 24.9 pg (25.0-35.0); MCHC 29.2 g/dL (31.0-37.0); MCV 85.5 fL (80.0-100.0); Mean Platelet Volume 8.6; Monocytes # (A) 0.4 k/uL (0-1.0); Monocytes % (A) 4 %; Neutrophils # (A) 8.2 k/uL (1.3-7.7); Neutrophils % (A) 85 %; Poikilocytosis Moderate; RBC 3.82 m/uL (3.80-5.40); RDW 18.5 % (11.5-15.5); WBC 9.7 k/uL (3.8-10.6); WBC (Perox) 10.28
[2016-05-26 07:24] LABS: INR 1.6 (<1.1); Prothrombin Time 15.6 sec (9.0-12.0)
[2016-05-26 07:26] LABS: ALT 42 U/L (9-52); AST 20 U/L (14-36); Alkaline Phosphatase 60 U/L (38-126); Anion Gap 10 mmol/L; Blood Urea Nitrogen 39 mg/dL (7-17); Calcium 8.5 mg/dL (8.4-10.2); Carbon Dioxide 36 mmol/L (22-30); Chloride 97 mmol/L (98-107); Glucose 101 mg/dL (74-99); Non-African American GFR(MDRD) >60 (>60 ml/min/1.73 sqM); Potassium 3.9 mmol/L (3.5-5.1); Sodium 143 mmol/L (137-145); Total Bilirubin 0.6 mg/dL (0.2-1.3); Total Protein 5.7 g/dL (6.3-8.2)
[2016-05-26] MEDS: IPRATROPIUM-ALBUTEROL 3 ML NEB INHALATION SCH ×4 (07:47→21:00)
[2016-05-26] MEDS: BUDESONIDE 1 MG/2 ML NEBU INHALATION SCH ×2 (07:47→21:00)
[2016-05-26] MEDS: METOPROLOL SUCCINATE (ER) 100 MG TAB.ER.24H PO SCH ×2 (07:52→20:18)
[2016-05-26] MEDS: ALPRAZolam 0.25 MG TAB PO SCH ×2 (07:53→20:17)
[2016-05-26] MEDS: FUROSEMIDE 10 MG/ML 4 ML VIAL IV SCH ×2 (07:53→20:17)
[2016-05-26] MEDS: DOCUSATE 100 MG CAP PO SCH ×2 (07:53→20:17)
[2016-05-26] MEDS: predniSONE 20 MG TAB PO SCH (07:53)
[2016-05-26] MEDS: INSULIN DETEMIR 100 UNIT/ML 10 ML VIAL SQ SCH ×2 (07:53→20:53)
[2016-05-26] MEDS: LEVOFLOXACIN 500 MG TAB PO SCH (07:53)
[2016-05-26 11:41] LABS: Glucose,Whole Blood 186 mg/dL (75-99)
[2016-05-26 11:43] LABS: Glucose,Whole Blood 242 mg/dL (75-99)
--- NOTE | 2016-05-26 13:25 | P.PN ---
Subjective This is a 76-year-old female patient who is being evaluated and examined today on the sixth floor. This patient is well-known to our service. This patient recently was hospitalized in April with a left leg ischemia status post thrombectomy, pneumonia, COPD exacerbation, GI bleed, and CHF exacerbation. The patient was subsequently discharged to [facility]. She came back to the emergency room with some shortness of breath, cough, fever, generalized weakness and lethargy. She also states that she had been having some difficulty with urination. The patient's chest x-ray has been reviewed. The patient was admitted with pneumonia, bronchospasms, acute hypoxia, chronic anemia, free bilateral illness and elevated troponins. The patient is known to have chronic hypoxia and uses 3 L of oxygen at the rehab facility as well and she wears CPAP for obstructive sleep apnea. Upon examination the patient is resting in bed up on 6 L of oxygen via nasal cannula she continues to have shortness of breath with exertion or extensive conversation. Objective - Vital Signs Vital signs: Vital Signs Temp 98.1 F 05/26/16 07:51 Pulse 88 05/26/16 08:06 Resp 18 05/26/16 08:00 BP 131/79 05/26/16 07:51 Pulse Ox 93 L 05/26/16 07:55 Intake & Output 05/25/16 05/26/16 05/26/16 18:59 06:59 18:59 Intake Total 1360 Output Total 1050 750 Balance 310 -750 Weight 112 kg Intake: Oral 1360 Output: Urine 1050 750 Other: Voiding Method Bedpan Bedpan Bedpan # Voids 2 1 # Bowel Movements 2 - Exam GENERAL EXAM: Alert, active, comfortable in no apparent distress. HEAD: Normocephalic. EYES: Normal reaction of pupils, equal size. NOSE: Clear with pink turbinates. THROAT: No erythema or exudates. NECK: No masses, no JVD. CHEST: No chest wall deformity. LUNGS: Lungs noted to be bilaterally coarse, with scattered rhonchi and crackles. CVS: S1 and S2 normal with no audible mumurs, regular rhythm. ABDOMEN: No hepatosplenomegaly, normal bowel sounds, no guarding or rigidity. EXTREMITIES: Trace edema noted, pedal pulses palpable. SKIN: No rashes CENTRAL NERVOUS SYSTEM: No focal deficits, tone is normal in all 4 extremities. - Labs CBC & Chem 7: 05/26/16 06:41 05/26/16 06:41 Labs: Abnormal Lab Results - Last 24 Hours (Table) 05/25/16 05/25/16 05/25/16 Range/Units 11:36 12:22 16:29 RBC 3.79 L (3.80-5.40) m/uL Hgb 9.6 L (11.4-16.0) gm/dL Hct 32.0 L (34.0-46.0) % MCH (25.0-35.0) pg MCHC 30.0 L (31.0-37.0) g/dL RDW 18.2 H (11.5-15.5) % Neutrophils # (1.3-7.7) k/uL Lymphocytes # (1.0-4.8) k/uL PT (9.0-12.0) sec Chloride (98-107) mmol/L Carbon Dioxide (22-30) mmol/L BUN (7-17) mg/dL Glucose (74-99) mg/dL POC Glucose (mg/dL) 469 H 300 H (75-99) mg/dL Total Protein (6.3-8.2) g/dL Albumin (3.5-5.0) g/dL 05/25/16 05/26/16 05/26/16 Range/Units 20:57 05:59 06:41 RBC (3.80-5.40) m/uL Hgb 9.5 L (11.4-16.0) gm/dL Hct 32.7 L (34.0-46.0) % MCH 24.9 L (25.0-35.0) pg MCHC 29.2 L (31.0-37.0) g/dL RDW 18.5 H (11.5-15.5) % Neutrophils # 8.2 H (1.3-7.7) k/uL Lymphocytes # 0.9 L (1.0-4.8) k/uL PT (9.0-12.0) sec Chloride (98-107) mmol/L Carbon Dioxide (22-30) mmol/L BUN (7-17) mg/dL Glucose (74-99) mg/dL POC Glucose (mg/dL) 192 H 118 H (75-99) mg/dL Total Protein (6.3-8.2) g/dL Albumin (3.5-5.0) g/dL 05/26/16 05/26/16 Range/Units 06:41 06:41 RBC (3.80-5.40) m/uL Hgb (11.4-16.0) gm/dL Hct (34.0-46.0) % MCH (25.0-35.0) pg MCHC (31.0-37.0) g/dL RDW (11.5-15.5) % Neutrophils # (1.3-7.7) k/uL Lymphocytes # (1.0-4.8) k/uL PT 15.6 H (9.0-12.0) sec Chloride 97 L (98-107) mmol/L Carbon Dioxide 36 H (22-30) mmol/L BUN 39 H (7-17) mg/dL Glucose 101 H (74-99) mg/dL POC Glucose (mg/dL) (75-99) mg/dL Total Protein 5.7 L (6.3-8.2) g/dL Albumin 2.7 L (3.5-5.0) g/dL Microbiology - Last 24 Hours (Table) 05/21/16 12:55 Blood Culture - Preliminary Blood No Growth after 96 hours Assessment and Plan Plan: assessment Pneumonia with sepsis Acute exacerbation of chronic obstructive pulmonary disease Acute on chronic systolic congestive heart failure exacerbation Elevated troponins Acute anemia secondary to chronic blood loss and suspected lower GI bleed Chronic atrial fibrillation Diabetes mellitus insulin-dependent Plan Medications have been reviewed and will be continued as ordered. The patient could benefit for 1 more day of IV Lasix before switching to oral. Cardiology is also on consult. Repeat chest x-ray in the morning. Continue with supportive care. We will continue to monitor labs and adjust treatment as necessary. I performed an examination of the patient and discussed their management with the nurse practitioner. I have reviewed the nurse practitioner's note and agree with the documented findings and plan of care.
[2016-05-26] MEDS: guaiFENesin 600 MG TABLET.ER PO SCH ×2 (14:02→20:18)
[2016-05-26 16:49] LABS: Glucose,Whole Blood 255 mg/dL (75-99)
--- NOTE | 2016-05-26 16:56 | P.PN ---
Subjective Principal diagnosis: Pneumonia with sepsis Patient is a 76-year-old female who was readmitted to [facility] due to fever cough and worsening shortness of breath She had evidence of pneumonia with sepsis, she also had evidence of anemia was hemoglobin of 7.8, evidence of acute congestive heart failure exacerbation, she has known history of atrial fibrillation. Today patient was feeling worse she was having significant shortness of breath, She received extra doses of Lasix i am ordering now 1 dose of IV albumin 25 g followed by Lasix 20 mg IV Objective - Vital Signs Vital signs: Vital Signs Temp 97 F L 05/26/16 15:38 Pulse 96 05/26/16 15:42 Resp 22 05/26/16 15:40 BP 149/71 05/26/16 15:38 Pulse Ox 95 05/26/16 15:38 Intake & Output 05/25/16 05/26/16 05/26/16 18:59 06:59 18:59 Intake Total 1360 Output Total 1050 750 400 Balance 310 -750 -400 Weight 112 kg Intake: Oral 1360 Output: Urine 1050 750 400 Other: Voiding Method Bedpan Bedpan Bedpan # Voids 2 1 2 # Bowel Movements 2 - Exam In general patient is alert and oriented 3 in no apparent distress HEENT head normocephalic and atraumatic Neck is supple no JVD no goiter no lymphadenopathy Chest exam reveals coarse crackles in both lung olivares no wheezing Cardiac exam reveals regular heart sounds no murmurs Abdomen is soft nontender no organomegaly Extremity exam reveals no edema no cyanosis or clubbing - Labs CBC & Chem 7: 05/26/16 06:41 05/26/16 06:41 Labs: Abnormal Lab Results - Last 24 Hours (Table) 05/25/16 05/26/16 05/26/16 Range/Units 20:57 05:59 06:41 Hgb 9.5 L (11.4-16.0) gm/dL Hct 32.7 L (34.0-46.0) % MCH 24.9 L (25.0-35.0) pg MCHC 29.2 L (31.0-37.0) g/dL RDW 18.5 H (11.5-15.5) % Neutrophils # 8.2 H (1.3-7.7) k/uL Lymphocytes # 0.9 L (1.0-4.8) k/uL PT (9.0-12.0) sec Chloride (98-107) mmol/L Carbon Dioxide (22-30) mmol/L BUN (7-17) mg/dL Glucose (74-99) mg/dL POC Glucose (mg/dL) 192 H 118 H (75-99) mg/dL Total Protein (6.3-8.2) g/dL Albumin (3.5-5.0) g/dL 05/26/16 05/26/16 05/26/16 Range/Units 06:41 06:41 11:39 Hgb (11.4-16.0) gm/dL Hct (34.0-46.0) % MCH (25.0-35.0) pg MCHC (31.0-37.0) g/dL RDW (11.5-15.5) % Neutrophils # (1.3-7.7) k/uL Lymphocytes # (1.0-4.8) k/uL PT 15.6 H (9.0-12.0) sec Chloride 97 L (98-107) mmol/L Carbon Dioxide 36 H (22-30) mmol/L BUN 39 H (7-17) mg/dL Glucose 101 H (74-99) mg/dL POC Glucose (mg/dL) 186 H (75-99) mg/dL Total Protein 5.7 L (6.3-8.2) g/dL Albumin 2.7 L (3.5-5.0) g/dL 05/26/16 05/26/16 Range/Units 11:42 16:47 Hgb (11.4-16.0) gm/dL Hct (34.0-46.0) % MCH (25.0-35.0) pg MCHC (31.0-37.0) g/dL RDW (11.5-15.5) % Neutrophils # (1.3-7.7) k/uL Lymphocytes # (1.0-4.8) k/uL PT (9.0-12.0) sec Chloride (98-107) mmol/L Carbon Dioxide (22-30) mmol/L BUN (7-17) mg/dL Glucose (74-99) mg/dL POC Glucose (mg/dL) 242 H 255 H (75-99) mg/dL Total Protein (6.3-8.2) g/dL Albumin (3.5-5.0) g/dL Microbiology - Last 24 Hours (Table) 05/21/16 12:55 Blood Culture - Preliminary Blood No Growth after 120 hours Assessment and Plan Plan: 1. Pneumonia with sepsis: Chest x-ray showing cardiomegaly with peripheral vascular congestion and patchy density in the right lower lobe. P chest x-ray showing improvement in right lower lobe infiltrate maintained on Levaquin 2. Acute on chronic systolic CHF exacerbation. Most recent echo shows an EF of 40-45%. BNP elevated in the 3000's. Chest x-ray showing peripheral vascular congestion. Patient received multiple extra doses of IV Lasix due to worsening shortness of breath and O2 desaturations this morning 3. Cardiac pauses. Continue with telemetry monitoring. Cardiology has been consulted. 4. Insulin-dependent diabetes mellitus, A1c is 7.2 continue was Levemir and NovoLog 5. Elevated troponin with no chest pain. Cardiology following 6. Acute anemia secondary to chronic blood loss and suspected lower GI bleed. Hemoglobin is 7.7. Was unable to have a colonoscopy during last admission due to multiple complications. She had a EGD last month. Hemoglobin is dropping despite multiple IV iron infusion at this time will proceed was 1 unit of red blood cell transfusion 7. Chronic atrial fibrillation maintained on Coumadin for anticoagulation. Monitor PT/INRs closely due to Coumadin and Levaquin interaction. 8. History of COPD: Continue with nebulizer treatments. 9. Coagulopathy elevated INR of 1.8 , she will be given 2 mg of Coumadin today she was also given a subcu injection of Lovenox will monitor INR 10. Poor nutritional status nutrition consult was initiated
[2016-05-26] MEDS ORDERED: FUROSEMIDE 10 MG/ML 2 ML VIAL IV ONE (17:30)
[2016-05-26] MEDS ORDERED: ALBUMIN HUMAN 25% 50 ML in EMPTY BAG 1 BAG IVPB ONE (17:30)
[2016-05-26] MEDS ORDERED: WARFARIN 5 MG TAB PO ONE (18:00)
[2016-05-26] MEDS: ENOXAPARIN 80 MG/0.8 ML SYRINGE SQ SCH (20:17)
[2016-05-26] MEDS: PRAVASTATIN SODIUM 20 MG TAB PO SCH (20:18)
[2016-05-26] MEDS: LOSARTAN 50 MG TAB PO SCH (20:18)
[2016-05-26] MEDS: MONTELUKAST 10 MG TAB PO SCH (20:18)
[2016-05-26 20:36] LABS: Glucose,Whole Blood 327 mg/dL (75-99)
[2016-05-26] MEDS ORDERED: IV VANCOMYCIN PER PHARMACY 1 EACH MISC MISCELLANE PRN (22:07)
--- NOTE | 2016-05-26 22:07 | P.CONS ---
History of Present Illness - Reason for Consult Consult date: 05/26/16 - Chief Complaint Shortness of breath - History of Present Illness 76-year-old female who has an extensive hospitalization currently at 7 days of admission but actually it's been longer than that due to her short hiatus out of the hospital. She was deemed medically stable to be to leave the hospital to attend her 's this occurred while she has been so ill. The patient was admitted with severe shortness of breath from the extended care facility she was being cared for after her gastrointestinal bleeding and worsening of her underlying pulmonary disease. The patient does have severe underlying pulmonary disease and wears oxygen at all times and does use a CPAP at night because of her sleep apnea. Recently this has definitely been worse and because of concerns to ongoing pneumonia the infectious diseases consultation was requested This patient relates she just feeling slightly better than when she was first admitted. She was having difficulties that time also with her lower extremity and the left. She was seen by vascular surgery and a large clot was noted and a thrombectomy , endarterectomy and patch angioplasty was performed of the left arterial system, large clot was seen. Fortunately the leg is improving but the patient continues to have ongoing difficulties with shortness of breath. Review of Systems 76-year-old woman who is sitting upright she seems short of breath but states she feels better than earlier HEENT:Denies headache or acute visual change. Denies sinus or mouth discomforts. Denies neck stiffness or pain. Denies significant oral cavity pain. Denies difficulty on swallowing. Lungs: Shortness of breath is improved, has cough with minimal sputum production or hemoptysis Cardiovascular: Currently without chest pain shortness of breath is improved has orthopnea, she's had no mobility to see if she has much dyspnea on exertion and has had no syncope Gastrointestinal:Denies nausea, vomiting, diarrhea, constipation, she's had no hematemesis. She has had lower gastrointestinal bleeding and has had a recent endoscopy. No acute lower gastrointestinal bleeding is noted at this time Musculoskeletal: Has chronic arthritis no acute joint flares this time and his lower extremity edema Skin: Denies new rash or lesions. No new ulcers or wounds are related.. Neuro: Generalized weakness no recent falls or seizures Psychiatric: Has appropriate situational depression with loss of her while she has been ill fortunately she was able to attend his Endocrine: Significant fatigue and ongoing weight gain Past Medical History Past Medical History: Atrial Fibrillation, Asthma, Heart Failure, CVA/TIA, Diabetes Mellitus, Deep Vein Thrombosis (DVT), GI Bleed, Hyperlipidemia, Hypertension, Pneumonia Additional Past Medical History / Comment(s): Pt was recently admitted 04/27/16 with L leg ischemia, aucte blood loss anemia-suspect lower GI bleed, acute on chronic CHF, pneumonia with sepsis, exacerbation COPD. Other hx; CVAs-if tired will have slight speech change and chokes easily, chronic CHF, IDDM type II, bilateral cataracts, chronic anemia, 2015 vented for 3 months. History of Any Multi-Drug Resistant Organisms: MRSA Year Discovered:: 05/12/16 MDRO Source:: sputum Past Surgical History: Back Surgery, Breast Surgery, Hysterectomy Additional Past Surgical History / Comment(s): 05/18/16 thrombectomy/ endartectomy L common femoral artery, thoracic surgery in which a drainage tube was placed in her R lung due to pneumothorax, cyst removed from breast, L hip pain stimulator, EGD 03/2016 at [facility], melanoma removals. Past Anesthesia/Blood Transfusion Reactions: No Reported Reaction Additional Past Anesthesia/Blood Transfusion Reaction / Comm: Pt received blood with last admission without reaction. Past Psychological History: No Psychological Hx Reported Additional Psychological History / Comment(s): Pt currently living at [facility]. She just started standing with rails and assist. She is very weak. Has become during this hospital stay. Tobacco smoker until 3 years ago. No experience. No travel history. No animal exposures Smoking Status: Former smoker Past Alcohol Use History: None Reported Additional Past Alcohol Use History / Comment(s): Pt started smoking in 1961 and quit in 2014 Past Drug Use History: None Reported - Past Family History Mother Family Medical History: Diabetes Mellitus Father Additional Family Medical History / Comment(s): Father had heart problems. Medications and Allergies Home Medications and Allergies Comment(s): Current Medications Hydrocodone Bitart/Acetaminophen ([place] 10) 1 each PO Q4HR PRN PRN Reason: Pain Last Admin: 05/26/16 17:37 Dose: 1 each Albuterol/Ipratropium (Duoneb 0.5 Mg-3 Mg/3 Ml Soln) 3 ml INHALATION RT-QID PRN PRN Reason: Shortness Of Breath Or Wheezing Last Admin: 05/25/16 18:03 Dose: 3 ml Albuterol/Ipratropium (Duoneb 0.5 Mg-3 Mg/3 Ml Soln) 3 ml INHALATION RT-QID [facility] Last Admin: 05/26/16 21:00 Dose: 3 ml Alprazolam (Xanax) 0.25 mg PO BID [facility] Last Admin: 05/26/16 20:17 Dose: 0.25 mg Budesonide (Pulmicort) 1 mg INHALATION RT-BID [facility] Last Admin: 05/26/16 21:00 Dose: 1 mg Docusate Sodium (Colace) 100 mg PO BID [facility] Last Admin: 05/26/16 20:17 Dose: 100 mg Enoxaparin Sodium (Lovenox) 80 mg SQ Q12HR [facility] Last Admin: 05/26/16 20:17 Dose: 80 mg Furosemide (Lasix) 40 mg IV Q12HR [facility] Last Admin: 05/26/16 20:17 Dose: 40 mg Guaifenesin (Mucinex) 600 mg PO Q12HR [facility] Last Admin: 05/26/16 20:18 Dose: 600 mg Insulin Detemir (Levemir) 23 unit SQ [facility] Last Admin: 05/26/16 20:53 Dose: 23 unit Insulin Detemir (Levemir) 50 unit SQ DAILY [facility] Last Admin: 05/26/16 07:53 Dose: 50 unit Insulin Human Lispro (Humalog) 0 unit SQ [facility] PRN Reason: Protocol Last Admin: 05/26/16 20:53 Dose: 9 unit Levofloxacin (Levaquin) 500 mg PO DAILY [facility] Stop: 05/29/16 09:01 Last Admin: 05/26/16 07:53 Dose: 500 mg Losartan Potassium (Cozaar) 50 mg PO [facility] Last Admin: 05/26/16 20:18 Dose: 50 mg Metoprolol Succinate (Toprol Xl) 200 mg PO BID [facility] Last Admin: 05/26/16 20:18 Dose: 200 mg Miscellaneous Information (Pneumonia Protocol Utilized) 1 each PO ONCE PRN PRN Reason: Per Protocol Montelukast Sodium (Singulair) 10 mg PO [facility] Last Admin: 05/26/16 20:18 Dose: 10 mg Pantoprazole Sodium (Protonix) 40 mg PO AC-BRKFST [facility] Last Admin: 05/26/16 06:15 Dose: 40 mg Pravastatin Sodium (Pravachol) 20 mg PO [facility] Last Admin: 05/26/16 20:18 Dose: 20 mg Prednisone () 40 mg PO DAILY [facility] Last Admin: 05/26/16 07:53 Dose: 40 mg Home Medications Medication Instructions Recorded Confirmed Type ALPRAZolam [Xanax] 0.25 mg PO BID 04/27/16 05/19/16 History Diltiazem Cd [Cardizem CD] 240 mg PO DAILY 04/27/16 05/19/16 History Furosemide [Lasix] 20 mg PO DAILY@1300 04/27/16 05/19/16 History Furosemide [Lasix] 40 mg PO DAILY 04/27/16 05/19/16 History Insulin Detemir [Levemir] 23 unit SQ HS 04/27/16 05/19/16 History Insulin Detemir [Levemir] 53 unit SQ DAILY 04/27/16 05/19/16 History Losartan Potassium [Cozaar] 50 mg PO 04/27/16 05/19/16 History Metoprolol Succinate [Toprol XL] 200 mg PO BID 04/27/16 05/19/16 History Montelukast Sodium [Singulair] 10 mg PO 04/27/16 05/19/16 History Pravastatin Sodium [Pravachol] 20 mg PO 04/27/16 05/19/16 History HYDROcodone/APAP 10-325MG [[place] 1 tab PO BID@0800,2000 05/19/16 05/19/16 History 10-325] HYDROcodone/APAP 10-325MG [[place] 1 tab PO Q4HR PRN 05/19/16 05/19/16 History 10-325] INSULIN LISPRO (humaLOG) [humaLOG 8 unit SQ DAILY@1630 05/19/16 05/19/16 History (formulary)] INSULIN LISPRO (humaLOG) [humaLOG 12 unit SQ BID@0730,1230 05/19/16 05/19/16 History (formulary)] predniSONE 30 mg PO DIRECTED 05/19/16 05/19/16 History Warfarin Sodium [Coumadin] 2 mg PO 05/20/16 History Allergies Allergy/AdvReac Type Severity Reaction Status Date / Time Penicillins Allergy Rash/Hives Verified 04/27/16 01:09 Physical Exam Vitals: Vital Signs Temp Pulse Pulse Resp BP BP Pulse Ox 05/26/16 21:21 78 05/26/16 21:00 78 05/26/16 20:00 97.3 F L 78 22 139/51 90 L 05/26/16 15:42 96 05/26/16 15:40 22 05/26/16 15:38 97 F L 92 22 149/71 95 05/26/16 15:28 96 05/26/16 11:27 20 05/26/16 11:25 82 20 129/61 93 L 05/26/16 11:20 88 05/26/16 11:10 84 05/26/16 08:06 88 05/26/16 08:00 18 05/26/16 07:55 93 L 05/26/16 07:51 98.1 F 85 87 18 131/79 94 L 05/26/16 03:40 97.4 F L 85 18 117/61 90 L 05/26/16 00:00 84 18 144/89 93 L Intake and Output 05/26/16 05/26/16 05/26/16 06:59 14:59 22:59 Intake Total 100 Output Total 350 400 Balance -350 -400 100 Intake: Oral 100 Output: Urine 350 400 Other: Voiding Method Bedpan Bedpan Bedpan # Voids 1 2 Weight 112 kg 76-year-old woman who relates she is feeling less short of breath but appears to still be short of breath HEENT: Anicteric conjunctiva are pink and moist nasal mucosa grossly intact without significant lesions, there is no thrush. Worn dentition Neck: The neck is supple without significant lymphadenopathy or thyromegaly. Lungs: Symmetrical air entry is noted. Wheezes throughout the lung olivares are noted. Bibasilar crackles are heard right greater than left no dullness is noted minimal egophony to the right base is noted Heart: Regular rate and rhythm with an audible S1-S2, no S3 no S4. There is no significant murmur click or rub, PMI was nondisplaced. Abdomen: Obese, Positive bowel sounds soft and nontender without palpable masses or organomegaly. There was no guarding or rebound. Extremities: The upper and lower extremity is have some generalized edema. However no open ulcerations are seen. The entry site for the thrombectomy is without bleeding drainage or evidence of infection or tenderness Neuro: Awake alert oriented to person place and time. There are no acute new gross focal sensory motor deficits. She has significant generalized weakness though Results CBC & Chem 7: 05/26/16 06:41 05/26/16 06:41 Labs: Abnormal Lab Results - Last 24 Hours (Table) 05/26/16 05/26/16 05/26/16 Range/Units 05:59 06:41 06:41 Hgb 9.5 L (11.4-16.0) gm/dL Hct 32.7 L (34.0-46.0) % MCH 24.9 L (25.0-35.0) pg MCHC 29.2 L (31.0-37.0) g/dL RDW 18.5 H (11.5-15.5) % Neutrophils # 8.2 H (1.3-7.7) k/uL Lymphocytes # 0.9 L (1.0-4.8) k/uL PT 15.6 H (9.0-12.0) sec Chloride (98-107) mmol/L Carbon Dioxide (22-30) mmol/L BUN (7-17) mg/dL Glucose (74-99) mg/dL POC Glucose (mg/dL) 118 H (75-99) mg/dL Total Protein (6.3-8.2) g/dL Albumin (3.5-5.0) g/dL 05/26/16 05/26/16 05/26/16 Range/Units 06:41 11:39 11:42 Hgb (11.4-16.0) gm/dL Hct (34.0-46.0) % MCH (25.0-35.0) pg MCHC (31.0-37.0) g/dL RDW (11.5-15.5) % Neutrophils # (1.3-7.7) k/uL Lymphocytes # (1.0-4.8) k/uL PT (9.0-12.0) sec Chloride 97 L (98-107) mmol/L Carbon Dioxide 36 H (22-30) mmol/L BUN 39 H (7-17) mg/dL Glucose 101 H (74-99) mg/dL POC Glucose (mg/dL) 186 H 242 H (75-99) mg/dL Total Protein 5.7 L (6.3-8.2) g/dL Albumin 2.7 L (3.5-5.0) g/dL 05/26/16 05/26/16 Range/Units 16:47 20:35 Hgb (11.4-16.0) gm/dL Hct (34.0-46.0) % MCH (25.0-35.0) pg MCHC (31.0-37.0) g/dL RDW (11.5-15.5) % Neutrophils # (1.3-7.7) k/uL Lymphocytes # (1.0-4.8) k/uL PT (9.0-12.0) sec Chloride (98-107) mmol/L Carbon Dioxide (22-30) mmol/L BUN (7-17) mg/dL Glucose (74-99) mg/dL POC Glucose (mg/dL) 255 H 327 H (75-99) mg/dL Total Protein (6.3-8.2) g/dL Albumin (3.5-5.0) g/dL Microbiology - Last 24 Hours (Table) 05/21/16 12:55 Blood Culture - Preliminary Blood No Growth after 120 hours Laboratory Results WBC 9.7 k/uL (3.8-10.6) 05/26/16 06:41 RBC 3.82 m/uL (3.80-5.40) 05/26/16 06:41 Hgb 9.5 gm/dL (11.4-16.0) L 05/26/16 06:41 Hct 32.7 % (34.0-46.0) L 05/26/16 06:41 MCV 85.5 fL (80.0-100.0) 05/26/16 06:41 MCH 24.9 pg (25.0-35.0) L 05/26/16 06:41 MCHC 29.2 g/dL (31.0-37.0) L 05/26/16 06:41 RDW 18.5 % (11.5-15.5) H 05/26/16 06:41 Plt Count 199 k/uL (150-450) 05/26/16 06:41 Neutrophils % 85 % 05/26/16 06:41 Lymphocytes % 9 % 05/26/16 06:41 Monocytes % 4 % 05/26/16 06:41 Eosinophils % 0 % 05/26/16 06:41 Basophils % 0 % 05/26/16 06:41 Neutrophils # 8.2 k/uL (1.3-7.7) H 05/26/16 06:41 Lymphocytes # 0.9 k/uL (1.0-4.8) L 05/26/16 06:41 Monocytes # 0.4 k/uL (0-1.0) 05/26/16 06:41 Eosinophils # 0.0 k/uL (0-0.7) 05/26/16 06:41 Basophils # 0.0 k/uL (0-0.2) 05/26/16 06:41 Hypochromasia Marked 05/26/16 06:41 Poikilocytosis Moderate 05/26/16 06:41 Anisocytosis Slight 05/26/16 06:41 PT 15.6 sec (9.0-12.0) H 05/26/16 06:41 INR 1.6 (<1.1) 05/26/16 06:41 APTT 27.1 sec (22.0-30.0) 05/19/16 10:05 Sodium 143 mmol/L (137-145) 05/26/16 06:41 Potassium 3.9 mmol/L (3.5-5.1) 05/26/16 06:41 Chloride 97 mmol/L (98-107) L 05/26/16 06:41 Carbon Dioxide 36 mmol/L (22-30) H 05/26/16 06:41 Anion Gap 10 mmol/L 05/26/16 06:41 BUN 39 mg/dL (7-17) H 05/26/16 06:41 Creatinine 0.72 mg/dL (0.52-1.04) 05/26/16 06:41 Est GFR (MDRD) Af Amer >60 (>60 ml/min/1.73 sqM) 05/26/16 06:41 Est GFR (MDRD) Non-Af >60 (>60 ml/min/1.73 sqM) 05/26/16 06:41 Glucose 101 mg/dL (74-99) H 05/26/16 06:41 POC Glucose (mg/dL) 327 mg/dL (75-99) H 05/26/16 20:35 POC Glu [employer] ID Torrie Holguin 05/26/16 20:[address] Glu mg/dL 166 mg/dL 05/23/16 07:03 Hemoglobin A1c 7.4 % (4.2-6.1) H 05/23/16 07:03 Plasma Lactic Acid Good 1.4 mmol/L (0.7-2.0) 05/19/16 13:51 Calcium 8.5 mg/dL (8.4-10.2) 05/26/16 06:41 Magnesium 1.7 mg/dL (1.6-2.3) 05/19/16 10:05 Total Bilirubin 0.6 mg/dL (0.2-1.3) 05/26/16 06:41 AST 20 U/L (14-36) 05/26/16 06:41 ALT 42 U/L (9-52) 05/26/16 06:41 Alkaline Phosphatase 60 U/L (38-126) 05/26/16 06:41 Total Creatine Kinase <20 U/L (30-135) L 05/19/16 10:05 CK-MB (CK-2) <0.2 ng/mL (0.0-2.4) 05/19/16 10:05 CK-MB (CK-2) Rel Index 05/19/16 10:05 Troponin I 0.071 ng/mL (0.000-0.034) H* 05/19/16 10:05 NT-Pro-B Natriuret Pep 3920 pg/mL 05/20/16 09:00 Total Protein 5.7 g/dL (6.3-8.2) L 05/26/16 06:41 Albumin 2.7 g/dL (3.5-5.0) L 05/26/16 06:41 TSH 2.550 mIU/L (0.465-4.680) 05/21/16 06:30 Free T4 0.76 ng/dL (0.78-2.19) L 05/21/16 06:30 Urine Color Light Yellow 05/19/16 10:25 Urine Appearance Clear (Clear) 05/19/16 10:25 Urine pH 6.5 (5.0-8.0) 05/19/16 10:25 Ur Specific Vera 1.011 (1.001-1.035) 05/19/16 10:25 Urine Protein Trace (Negative) H 05/19/16 10:25 Urine Glucose (UA) Negative (Negative) 05/19/16 10:25 Urine Ketones Negative (Negative) 05/19/16 10:25 Urine Blood Negative (Negative) 05/19/16 10:25 Urine Nitrite Negative (Negative) 05/19/16 10:25 Urine Bilirubin Negative (Negative) 05/19/16 10:25 Urine Urobilinogen <2.0 mg/dL (<2.0) 05/19/16 10:25 Ur Leukocyte Esterase Negative (Negative) 05/19/16 10:25 Influenza Type A RNA Not Detected (Not Detectd) 05/19/16 10:05 Influenza Type B (PCR) Not Detected (Not Detectd) 05/19/16 10:05 Blood Type A Positive 05/23/16 09:33 Blood Type Recheck No 05/23/16 09:33 Antibody Screen NEGATIVE 05/23/16 09:33 Crossmatch See Detail 05/23/16 09:33 Spec Expiration Date 05/26/2016233205/23/16 09:33 Laboratory Results WBC 9.7 k/uL (3.8-10.6) 05/26/16 06:41 RBC 3.82 m/uL (3.80-5.40) 05/26/16 06:41 Hgb 9.5 gm/dL (11.4-16.0) L 05/26/16 06:41 Hct 32.7 % (34.0-46.0) L 05/26/16 06:41 MCV 85.5 fL (80.0-100.0) 05/26/16 06:41 MCH 24.9 pg (25.0-35.0) L 05/26/16 06:41 MCHC 29.2 g/dL (31.0-37.0) L 05/26/16 06:41 RDW 18.5 % (11.5-15.5) H 05/26/16 06:41 Plt Count 199 k/uL (150-450) 05/26/16 06:41 Neutrophils % 85 % 05/26/16 06:41 Lymphocytes % 9 % 05/26/16 06:41 Monocytes % 4 % 05/26/16 06:41 Eosinophils % 0 % 05/26/16 06:41 Basophils % 0 % 05/26/16 06:41 Neutrophils # 8.2 k/uL (1.3-7.7) H 05/26/16 06:41 Lymphocytes # 0.9 k/uL (1.0-4.8) L 05/26/16 06:41 Monocytes # 0.4 k/uL (0-1.0) 05/26/16 06:41 Eosinophils # 0.0 k/uL (0-0.7) 05/26/16 06:41 Basophils # 0.0 k/uL (0-0.2) 05/26/16 06:41 Hypochromasia Marked 05/26/16 06:41 Poikilocytosis Moderate 05/26/16 06:41 Anisocytosis Slight 05/26/16 06:41 PT 15.6 sec (9.0-12.0) H 05/26/16 06:41 INR 1.6 (<1.1) 05/26/16 06:41 APTT 27.1 sec (22.0-30.0) 05/19/16 10:05 Sodium 143 mmol/L (137-145) 05/26/16 06:41 Potassium 3.9 mmol/L (3.5-5.1) 05/26/16 06:41 Chloride 97 mmol/L (98-107) L 05/26/16 06:41 Carbon Dioxide 36 mmol/L (22-30) H 05/26/16 06:41 Anion Gap 10 mmol/L 05/26/16 06:41 BUN 39 mg/dL (7-17) H 05/26/16 06:41 Creatinine 0.72 mg/dL (0.52-1.04) 05/26/16 06:41 Est GFR (MDRD) Af Amer >60 (>60 ml/min/1.73 sqM) 05/26/16 06:41 Est GFR (MDRD) Non-Af >60 (>60 ml/min/1.73 sqM) 05/26/16 06:41 Glucose 101 mg/dL (74-99) H 05/26/16 06:41 POC Glucose (mg/dL) 327 mg/dL (75-99) H 05/26/16 20:35 POC Glu [employer] ID Ezio, Torrie 05/26/16 20:[address] Glu mg/dL 166 mg/dL 05/23/16 07:03 Hemoglobin A1c 7.4 % (4.2-6.1) H 05/23/16 07:03 Plasma Lactic Acid Good 1.4 mmol/L (0.7-2.0) 05/19/16 13:51 Calcium 8.5 mg/dL (8.4-10.2) 05/26/16 06:41 Magnesium 1.7 mg/dL (1.6-2.3) 05/19/16 10:05 Total Bilirubin 0.6 mg/dL (0.2-1.3) 05/26/16 06:41 AST 20 U/L (14-36) 05/26/16 06:41 ALT 42 U/L (9-52) 05/26/16 06:41 Alkaline Phosphatase 60 U/L (38-126) 05/26/16 06:41 Total Creatine Kinase <20 U/L (30-135) L 05/19/16 10:05 CK-MB (CK-2) <0.2 ng/mL (0.0-2.4) 05/19/16 10:05 CK-MB (CK-2) Rel Index 05/19/16 10:05 Troponin I 0.071 ng/mL (0.000-0.034) H* 05/19/16 10:05 NT-Pro-B Natriuret Pep 3920 pg/mL 05/20/16 09:00 Total Protein 5.7 g/dL (6.3-8.2) L 05/26/16 06:41 Albumin 2.7 g/dL (3.5-5.0) L 05/26/16 06:41 TSH 2.550 mIU/L (0.465-4.680) 05/21/16 06:30 Free T4 0.76 ng/dL (0.78-2.19) L 05/21/16 06:30 Urine Color Light Yellow 05/19/16 10:25 Urine Appearance Clear (Clear) 05/19/16 10:25 Urine pH 6.5 (5.0-8.0) 05/19/16 10:25 Ur Specific Vera 1.011 (1.001-1.035) 05/19/16 10:25 Urine Protein Trace (Negative) H 05/19/16 10:25 Urine Glucose (UA) Negative (Negative) 05/19/16 10:25 Urine Ketones Negative (Negative) 05/19/16 10:25 Urine Blood Negative (Negative) 05/19/16 10:25 Urine Nitrite Negative (Negative) 05/19/16 10:25 Urine Bilirubin Negative (Negative) 05/19/16 10:25 Urine Urobilinogen <2.0 mg/dL (<2.0) 05/19/16 10:25 Ur Leukocyte Esterase Negative (Negative) 05/19/16 10:25 Influenza Type A RNA Not Detected (Not Detectd) 05/19/16 10:05 Influenza Type B (PCR) Not Detected (Not Detectd) 05/19/16 10:05 Blood Type A Positive 05/23/16 09:33 Blood Type Recheck No 05/23/16 09:33 Antibody Screen NEGATIVE 05/23/16 09:33 Crossmatch See Detail 05/23/16 09:33 Spec Expiration Date 05/26/2016233205/23/16 09:33 Microbiology 05/21/16 12:55 Blood Blood Culture - Preliminary No Growth after 120 hours 05/19/16 10:05 Blood Blood Culture - Final No Growth after 144 hours Assessment and Plan (1) MRSA pneumonia Narrative/Plan: 76-year-old female who has multiple medical troubles occluding underlying significant cardiovascular disease, chronic pulmonary disease with oxygen dependence as well as sleep apnea presents to Hospital profoundly ill from the [facility]. Apparently hospitalized for she had difficulties with gastrointestinal bleeding. During this stay she's had difficulties with congestive heart failure, exacerbation of COPD, extensive thrombus to the left leg requiring thrombectomy and endarterectomy. Patient relates is feeling just slightly better today. Review of the day reveals evidence she does have evidence of the sputum culture with evidence of MRSA present. It does appear to be levofloxacin resistant. Consequently since she is on anticoagulation therapy would like to discontinue levofloxacin therapy will initiate vancomycin therapy. She fortunately does not have acute renal failure at this time. We'll monitor response to current antibiotic therapy. We'll likely need to complete a course of this time of her transfer back to [facility]. Does not appear to have any acute infection to the left leg after the above interventions. She does not have any significant urinary symptoms. Status: Acute (2) Chronic a-fib Status: Acute (3) Acute blood loss anemia Status: Acute (4) Leukocytosis Status: Acute
[2016-05-26] MEDS ORDERED: VANCOMYCIN 2,250 MG in SODIUM CHLORIDE 0.9% 500 ML IVPB ONE (23:00)
[2016-05-27 05:53] LABS: Glucose,Whole Blood 89 mg/dL (75-99)
[2016-05-27] MEDS: INSULIN LISPRO (humaLOG) 300 UNIT/3 ML VIAL SQ SCH ×4 (06:09→21:14)
[2016-05-27] MEDS: PANTOPRAZOLE 40 MG TABLET PO SCH (06:33)
[2016-05-27 06:43] LABS: Anisocytosis Slight; Basophils % (A) 0 %; CH 24.3; CHCM 28.2; Eosinophils % (A) 1 %; HCT 32.1 % (34.0-46.0); HDW 4.09; HGB 9.5 gm/dL (11.4-16.0); Hypochromasia Marked; Luc # (Auto) 0.09; Luc % (Auto) 1; Lymphocytes # (A) 0.9 k/uL (1.0-4.8); Lymphocytes % (A) 9 %; MCH 25.5 pg (25.0-35.0); MCHC 29.7 g/dL (31.0-37.0); Mean Platelet Volume 8.1; Monocytes # (A) 0.3 k/uL (0-1.0); Monocytes % (A) 4 %; Neutrophils % (A) 86 %; Poikilocytosis Moderate; RBC 3.74 m/uL (3.80-5.40); RDW 18.4 % (11.5-15.5); WBC 9.4 k/uL (3.8-10.6); WBC (Perox) 9.89
[2016-05-27 06:46] LABS: INR 2.5 (<1.1); Prothrombin Time 23.9 sec (9.0-12.0)
[2016-05-27] MEDS: IPRATROPIUM-ALBUTEROL 3 ML NEB INHALATION SCH ×4 (07:02→20:58)
[2016-05-27] MEDS: BUDESONIDE 1 MG/2 ML NEBU INHALATION SCH ×2 (07:02→20:58)
[2016-05-27 07:06] LABS: ALT 36 U/L (9-52); AST 21 U/L (14-36); Alkaline Phosphatase 52 U/L (38-126); Anion Gap 9 mmol/L; Blood Urea Nitrogen 37 mg/dL (7-17); Calcium 8.2 mg/dL (8.4-10.2); Carbon Dioxide 37 mmol/L (22-30); Chloride 97 mmol/L (98-107); Glucose 84 mg/dL (74-99); Non-African American GFR(MDRD) >60 (>60 ml/min/1.73 sqM); Potassium 3.6 mmol/L (3.5-5.1); Sodium 143 mmol/L (137-145); Total Bilirubin 0.5 mg/dL (0.2-1.3); Total Protein 5.6 g/dL (6.3-8.2)
[2016-05-27] MEDS: guaiFENesin 600 MG TABLET.ER PO SCH ×2 (09:12→21:13)
[2016-05-27] MEDS: predniSONE 20 MG TAB PO SCH (09:12)
[2016-05-27] MEDS: ALPRAZolam 0.25 MG TAB PO SCH ×2 (09:12→21:13)
[2016-05-27] MEDS: INSULIN DETEMIR 100 UNIT/ML 10 ML VIAL SQ SCH ×2 (09:12→21:14)
[2016-05-27] MEDS: DOCUSATE 100 MG CAP PO SCH ×2 (09:12→21:14)
[2016-05-27] MEDS: ENOXAPARIN 80 MG/0.8 ML SYRINGE SQ SCH (09:13)
[2016-05-27] MEDS: FUROSEMIDE 10 MG/ML 4 ML VIAL IV SCH ×2 (09:13→21:13)
[2016-05-27] MEDS: METOPROLOL SUCCINATE (ER) 100 MG TAB.ER.24H PO SCH ×2 (09:13→21:14)
[2016-05-27] MEDS ORDERED: Potassium Replacement Protocol 1 EACH MISC MISCELLANE PRN (10:33)
[2016-05-27] MEDS ORDERED: POTASSIUM CHLORIDE ER 20 MEQ TAB.ER PO SCH (11:00)
[2016-05-27 11:35] LABS: Glucose,Whole Blood 228 mg/dL (75-99)
[2016-05-27] MEDS: VANCOMYCIN 1,750 MG in SODIUM CHLORIDE 0.9% 250 ML IVPB SCH (11:41)
--- NOTE | 2016-05-27 11:59 | P.PN ---
Subjective This is a 76-year-old female patient who is being evaluated and examined today on the sixth floor. This patient is well-known to our service. This patient recently was hospitalized in April with a left leg ischemia status post thrombectomy, pneumonia, COPD exacerbation, GI bleed, and CHF exacerbation. The patient was subsequently discharged to [facility]. She came back to the emergency room with some shortness of breath, cough, fever, generalized weakness and lethargy. She also states that she had been having some difficulty with urination. The patient was admitted with pneumonia, bronchospasms, acute hypoxia, chronic anemia, free bilateral illness and elevated troponins. The patient is known to have chronic hypoxia and uses 3 L of oxygen at the rehab facility as well and she wears CPAP for obstructive sleep apnea. Upon examination the patient is resting in bed up on 5 L of oxygen via nasal cannula she continues to have shortness of breath with exertion or extensive conversation. Current chest x-ray from this morning is pending. Objective - Vital Signs Vital signs: Vital Signs Temp 97 F L 05/27/16 04:00 Pulse 80 05/27/16 07:25 Resp 22 05/27/16 04:00 BP 151/64 05/27/16 04:00 Pulse Ox 94 L 05/27/16 04:00 Intake & Output 05/26/16 05/27/16 05/27/16 18:59 06:59 18:59 Intake Total 100 700 Output Total 400 1000 Balance -300 -300 Weight 111.8 kg Intake: Intake, IV Titration 500 Amount Vancomycin 2,250 mg In 500 Sodium Chloride 0.9% 500 ml @ 167 mls/hr IVPB ONCE ONE Rx#:[id number] Oral 100 200 Output: Urine 400 1000 Other: Voiding Method Bedpan Bedpan # Voids 2 - Exam GENERAL EXAM: Alert, active, comfortable in no apparent distress. HEAD: Normocephalic. EYES: Normal reaction of pupils, equal size. NOSE: Clear with pink turbinates. THROAT: No erythema or exudates. NECK: No masses, no JVD. CHEST: No chest wall deformity. LUNGS: Lungs noted to be bilaterally coarse, with scattered rhonchi and crackles. CVS: S1 and S2 normal with no audible mumurs, regular rhythm. ABDOMEN: No hepatosplenomegaly, normal bowel sounds, no guarding or rigidity. EXTREMITIES: Trace edema noted, pedal pulses palpable. SKIN: No rashes CENTRAL NERVOUS SYSTEM: No focal deficits, tone is normal in all 4 extremities. - Labs CBC & Chem 7: 05/27/16 06:01 05/27/16 06:01 Labs: Abnormal Lab Results - Last 24 Hours (Table) 05/26/16 05/26/16 05/26/16 Range/Units 11:39 11:42 16:47 RBC (3.80-5.40) m/uL Hgb (11.4-16.0) gm/dL Hct (34.0-46.0) % MCHC (31.0-37.0) g/dL RDW (11.5-15.5) % Neutrophils # (1.3-7.7) k/uL Lymphocytes # (1.0-4.8) k/uL PT (9.0-12.0) sec Chloride (98-107) mmol/L Carbon Dioxide (22-30) mmol/L BUN (7-17) mg/dL POC Glucose (mg/dL) 186 H 242 H 255 H (75-99) mg/dL Calcium (8.4-10.2) mg/dL Total Protein (6.3-8.2) g/dL Albumin (3.5-5.0) g/dL 05/26/16 05/27/16 05/27/16 Range/Units 20:35 06:01 06:01 RBC 3.74 L (3.80-5.40) m/uL Hgb 9.5 L (11.4-16.0) gm/dL Hct 32.1 L (34.0-46.0) % MCHC 29.7 L (31.0-37.0) g/dL RDW 18.4 H (11.5-15.5) % Neutrophils # 8.0 H (1.3-7.7) k/uL Lymphocytes # 0.9 L (1.0-4.8) k/uL PT 23.9 H (9.0-12.0) sec Chloride (98-107) mmol/L Carbon Dioxide (22-30) mmol/L BUN (7-17) mg/dL POC Glucose (mg/dL) 327 H (75-99) mg/dL Calcium (8.4-10.2) mg/dL Total Protein (6.3-8.2) g/dL Albumin (3.5-5.0) g/dL 05/27/16 Range/Units 06:01 RBC (3.80-5.40) m/uL Hgb (11.4-16.0) gm/dL Hct (34.0-46.0) % MCHC (31.0-37.0) g/dL RDW (11.5-15.5) % Neutrophils # (1.3-7.7) k/uL Lymphocytes # (1.0-4.8) k/uL PT (9.0-12.0) sec Chloride 97 L (98-107) mmol/L Carbon Dioxide 37 H (22-30) mmol/L BUN 37 H (7-17) mg/dL POC Glucose (mg/dL) (75-99) mg/dL Calcium 8.2 L (8.4-10.2) mg/dL Total Protein 5.6 L (6.3-8.2) g/dL Albumin 2.6 L (3.5-5.0) g/dL Microbiology - Last 24 Hours (Table) 05/21/16 12:55 Blood Culture - Preliminary Blood No Growth after 120 hours Assessment and Plan Plan: assessment Pneumonia with sepsis Acute exacerbation of chronic obstructive pulmonary disease Acute on chronic systolic congestive heart failure exacerbation Elevated troponins Acute anemia secondary to chronic blood loss and suspected lower GI bleed Chronic atrial fibrillation Diabetes mellitus insulin-dependent Plan Medications have been reviewed and will be continued as ordered. Cardiology is also on consult. Currently awaiting chest x-ray results. Patient has been switched from Levaquin to vancomycin for positive MRSA in the sputum. We will see how she does over the next few days and will schedule a possible bronchoscopy on Tuesday depending on her presentation at that time. Continue with supportive care. We will continue to monitor labs/results and adjust treatment as necessary. I performed an examination of the patient and discussed their management with the nurse practitioner. I have reviewed the nurse practitioner's note and agree with the documented findings and plan of care.
--- NOTE | 2016-05-27 12:03 | XR ---
EXAMINATION TYPE: XR chest 2V DATE OF EXAM: 05/27/2016 11:59 AM COMPARISON: 05/25/2016 TECHNIQUE: PA and lateral views submitted. HISTORY: Pneumonia FINDINGS: Heart is enlarged and there is atherosclerotic change aorta. Diffuse interstitial pattern seen with b ilateral infiltrate and small effusion. Stimulator device overlying the thoracic spine. IMPRESSION: 1. Appears to be increased patchy density posteriorly on the lateral view. Differential diagnosis wou ld include CHF. Superimposed lower lobe pneumonia or infiltrate in the differential.
--- NOTE | 2016-05-27 13:02 | P.PN ---
Subjective Principal diagnosis: Pneumonia with sepsis Patient is a 76-year-old female who was readmitted to [facility] due to fever cough and worsening shortness of breath She had evidence of pneumonia with sepsis, she also had evidence of anemia was hemoglobin of 7.8, evidence of acute congestive heart failure exacerbation, she has known history of atrial fibrillation. Today patient was feeling worse she was having significant shortness of breath, She received extra doses of Lasix i am ordering now 1 dose of IV albumin 25 g followed by Lasix 20 mg IV Objective - Vital Signs Vital signs: Vital Signs Temp 97.1 F L 05/27/16 08:25 Pulse 88 05/27/16 11:45 Resp 22 05/27/16 11:45 BP 149/59 05/27/16 11:45 Pulse Ox 97 05/27/16 11:45 Intake & Output 05/26/16 05/27/16 05/27/16 18:59 06:59 18:59 Intake Total 100 700 Output Total 400 1000 450 Balance -300 -300 -450 Weight 111.8 kg Intake: Intake, IV Titration 500 Amount Vancomycin 2,250 mg In 500 Sodium Chloride 0.9% 500 ml @ 167 mls/hr IVPB ONCE ONE Rx#:[id number] Oral 100 200 Output: Urine 400 1000 450 Other: Voiding Method Bedpan Bedpan Bedpan # Voids 2 - Exam In general patient is alert and oriented 3 in no apparent distress HEENT head normocephalic and atraumatic Neck is supple no JVD no goiter no lymphadenopathy Chest exam reveals coarse crackles in both lung olivares no wheezing Cardiac exam reveals regular heart sounds no murmurs Abdomen is soft nontender no organomegaly Extremity exam reveals no edema no cyanosis or clubbing - Labs CBC & Chem 7: 05/27/16 06:01 05/27/16 06:01 Labs: Abnormal Lab Results - Last 24 Hours (Table) 05/26/16 05/26/16 05/27/16 Range/Units 16:47 20:35 06:01 RBC 3.74 L (3.80-5.40) m/uL Hgb 9.5 L (11.4-16.0) gm/dL Hct 32.1 L (34.0-46.0) % MCHC 29.7 L (31.0-37.0) g/dL RDW 18.4 H (11.5-15.5) % Neutrophils # 8.0 H (1.3-7.7) k/uL Lymphocytes # 0.9 L (1.0-4.8) k/uL PT (9.0-12.0) sec Chloride (98-107) mmol/L Carbon Dioxide (22-30) mmol/L BUN (7-17) mg/dL POC Glucose (mg/dL) 255 H 327 H (75-99) mg/dL Calcium (8.4-10.2) mg/dL Total Protein (6.3-8.2) g/dL Albumin (3.5-5.0) g/dL 05/27/16 05/27/16 05/27/16 Range/Units 06:01 06:01 11:26 RBC (3.80-5.40) m/uL Hgb (11.4-16.0) gm/dL Hct (34.0-46.0) % MCHC (31.0-37.0) g/dL RDW (11.5-15.5) % Neutrophils # (1.3-7.7) k/uL Lymphocytes # (1.0-4.8) k/uL PT 23.9 H (9.0-12.0) sec Chloride 97 L (98-107) mmol/L Carbon Dioxide 37 H (22-30) mmol/L BUN 37 H (7-17) mg/dL POC Glucose (mg/dL) 228 H (75-99) mg/dL Calcium 8.2 L (8.4-10.2) mg/dL Total Protein 5.6 L (6.3-8.2) g/dL Albumin 2.6 L (3.5-5.0) g/dL Microbiology - Last 24 Hours (Table) 05/21/16 12:55 Blood Culture - Preliminary Blood No Growth after 120 hours Assessment and Plan Plan: 1. Pneumonia with sepsis: Chest x-ray showing cardiomegaly with peripheral vascular congestion and patchy density in the right lower lobe. P chest x-ray showing improvement in right lower lobe infiltrate, patient has not been improving she was evaluated by Dr. Wild, antibiotic were switched to IV vancomycin 2. Acute on chronic systolic CHF exacerbation. Most recent echo shows an EF of 40-45%. BNP elevated in the 3000's. Chest x-ray showing peripheral vascular congestion. Patient received multiple extra doses of IV Lasix due to worsening shortness of breath and O2 desaturations this morning 3. Cardiac pauses. Continue with telemetry monitoring. Cardiology has been consulted. 4. Insulin-dependent diabetes mellitus, A1c is 7.2 continue was Levemir and NovoLog 5. Elevated troponin with no chest pain. Cardiology following 6. Acute anemia secondary to chronic blood loss and suspected lower GI bleed. Hemoglobin is 7.7. Was unable to have a colonoscopy during last admission due to multiple complications. She had a EGD last month. Hemoglobin is dropping despite multiple IV iron infusion at this time will proceed was 1 unit of red blood cell transfusion 7. Chronic atrial fibrillation maintained on Coumadin for anticoagulation. Monitor PT/INRs closely due to Coumadin and Levaquin interaction. 8. History of COPD: Continue with nebulizer treatments. 9. Coagulopathy elevated INR of 2.5 today , will discontinue Lovenox and give Coumadin 2.5 mg today will monitor INR 10. Poor nutritional status nutrition consult was initiated
[2016-05-27] MEDS ORDERED: VANCOMYCIN 1,750 MG in SODIUM CHLORIDE 0.9% 250 ML IVPB SCH (14:00)
[2016-05-27] MEDS: HYDROcodone/APAP 10-325MG 1 EACH TAB PO PRN ×2 (15:20→21:13)
[2016-05-27 17:17] LABS: Glucose,Whole Blood 319 mg/dL (75-99)
[2016-05-27] MEDS ORDERED: WARFARIN 2.5 MG TAB PO ONE (18:00)
[2016-05-27 20:30] LABS: Glucose,Whole Blood 336 mg/dL (75-99)
[2016-05-27] MEDS: PRAVASTATIN SODIUM 20 MG TAB PO SCH (21:14)
[2016-05-27] MEDS: MONTELUKAST 10 MG TAB PO SCH (21:14)
[2016-05-27] MEDS: LOSARTAN 50 MG TAB PO SCH (21:14)
--- NOTE | 2016-05-27 22:13 | P.PN ---
Subjective Principal diagnosis: Shortness of breath 76-year-old female who has an extensive hospitalization currently at 7 days of admission but actually it's been longer than that due to her short hiatus out of the hospital. She was deemed medically stable to be to leave the hospital to attend her 's this occurred while she has been so ill. The patient was admitted with severe shortness of breath from the extended care facility she was being cared for after her gastrointestinal bleeding and worsening of her underlying pulmonary disease. The patient does have severe underlying pulmonary disease and wears oxygen at all times and does use a CPAP at night because of her sleep apnea. Recently this has definitely been worse and because of concerns to ongoing pneumonia the infectious diseases consultation was requested This patient relates she just feeling slightly better than when she was first admitted. She was having difficulties that time also with her lower extremity and the left. She was seen by vascular surgery and a large clot was noted and a thrombectomy , endarterectomy and patch angioplasty was performed of the left arterial system, large clot was seen. Patient relates that her leg continues to feel okay. She's having improved shortness of breath today. Choice of the best she has felt in weeks. She is having less cough and sputum production is able to speak in sentences because she is so less short of breath. Objective acute visit and were pleased that she was showing some improvement Objective - Vital Signs Vital signs: Vital Signs Temp 97.8 F 05/27/16 20:57 Pulse 80 05/27/16 21:03 Resp 22 05/27/16 20:57 BP 129/69 05/27/16 20:57 Pulse Ox 95 05/27/16 20:57 Intake & Output 05/27/16 05/27/16 05/28/16 06:59 18:59 06:59 Intake Total 700 200 100 Output Total 1000 650 350 Balance -300 -450 -250 Weight 111.8 kg Intake: Intake, IV Titration 500 Amount Vancomycin 2,250 mg In 500 Sodium Chloride 0.9% 500 ml @ 167 mls/hr IVPB ONCE ONE Rx#:[id number] Oral 200 200 100 Output: Urine 1000 650 350 Other: Voiding Method Bedpan Bedpan Bedpan # Voids 2 - Exam 76-year-old woman who relates she is feeling less short of breath but appears to still be short of breath HEENT: Anicteric conjunctiva are pink and moist nasal mucosa grossly intact without significant lesions, there is no thrush. Worn dentition Neck: The neck is supple without significant lymphadenopathy or thyromegaly. Lungs: Symmetrical air entry is noted. Wheezes throughout the lung olivares are noted. Bibasilar crackles are heard right greater than left no dullness is noted minimal egophony to the right base is noted Heart: Regular rate and rhythm with an audible S1-S2, no S3 no S4. There is no significant murmur click or rub, PMI was nondisplaced. Abdomen: Obese, Positive bowel sounds soft and nontender without palpable masses or organomegaly. There was no guarding or rebound. Extremities: The upper and lower extremity is have some generalized edema. However no open ulcerations are seen. The entry site for the thrombectomy is without bleeding drainage or evidence of infection or tenderness Neuro: Awake alert oriented to person place and time. There are no acute new gross focal sensory motor deficits. She has significant generalized weakness though - Labs CBC & Chem 7: 05/27/16 06:01 05/27/16 06:01 Labs: Abnormal Lab Results - Last 24 Hours (Table) 05/27/16 05/27/16 05/27/16 Range/Units 06:01 06:01 06:01 RBC 3.74 L (3.80-5.40) m/uL Hgb 9.5 L (11.4-16.0) gm/dL Hct 32.1 L (34.0-46.0) % MCHC 29.7 L (31.0-37.0) g/dL RDW 18.4 H (11.5-15.5) % Neutrophils # 8.0 H (1.3-7.7) k/uL Lymphocytes # 0.9 L (1.0-4.8) k/uL PT 23.9 H (9.0-12.0) sec Chloride 97 L (98-107) mmol/L Carbon Dioxide 37 H (22-30) mmol/L BUN 37 H (7-17) mg/dL POC Glucose (mg/dL) (75-99) mg/dL Calcium 8.2 L (8.4-10.2) mg/dL Total Protein 5.6 L (6.3-8.2) g/dL Albumin 2.6 L (3.5-5.0) g/dL 05/27/16 05/27/16 05/27/16 Range/Units 11:26 17:06 20:29 RBC (3.80-5.40) m/uL Hgb (11.4-16.0) gm/dL Hct (34.0-46.0) % MCHC (31.0-37.0) g/dL RDW (11.5-15.5) % Neutrophils # (1.3-7.7) k/uL Lymphocytes # (1.0-4.8) k/uL PT (9.0-12.0) sec Chloride (98-107) mmol/L Carbon Dioxide (22-30) mmol/L BUN (7-17) mg/dL POC Glucose (mg/dL) 228 H 319 H 336 H (75-99) mg/dL Calcium (8.4-10.2) mg/dL Total Protein (6.3-8.2) g/dL Albumin (3.5-5.0) g/dL Microbiology - Last 24 Hours (Table) 05/21/16 12:55 Blood Culture - Final Blood No Growth after 144 hours Laboratory Results WBC 9.4 k/uL (3.8-10.6) 05/27/16 06:01 RBC 3.74 m/uL (3.80-5.40) L 05/27/16 06:01 Hgb 9.5 gm/dL (11.4-16.0) L 05/27/16 06:01 Hct 32.1 % (34.0-46.0) L 05/27/16 06:01 MCV 86.0 fL (80.0-100.0) 05/27/16 06:01 MCH 25.5 pg (25.0-35.0) 05/27/16 06:01 MCHC 29.7 g/dL (31.0-37.0) L 05/27/16 06:01 RDW 18.4 % (11.5-15.5) H 05/27/16 06:01 Plt Count 174 k/uL (150-450) 05/27/16 06:01 Neutrophils % 86 % 05/27/16 06:01 Lymphocytes % 9 % 05/27/16 06:01 Monocytes % 4 % 05/27/16 06:01 Eosinophils % 1 % 05/27/16 06:01 Basophils % 0 % 05/27/16 06:01 Neutrophils # 8.0 k/uL (1.3-7.7) H 05/27/16 06:01 Lymphocytes # 0.9 k/uL (1.0-4.8) L 05/27/16 06:01 Monocytes # 0.3 k/uL (0-1.0) 05/27/16 06:01 Eosinophils # 0.0 k/uL (0-0.7) 05/27/16 06:01 Basophils # 0.0 k/uL (0-0.2) 05/27/16 06:01 Hypochromasia Marked 05/27/16 06:01 Poikilocytosis Moderate 05/27/16 06:01 Anisocytosis Slight 05/27/16 06:01 PT 23.9 sec (9.0-12.0) H 05/27/16 06:01 INR 2.5 (<1.1) 05/27/16 06:01 APTT 27.1 sec (22.0-30.0) 05/19/16 10:05 Sodium 143 mmol/L (137-145) 05/27/16 06:01 Potassium 3.6 mmol/L (3.5-5.1) 05/27/16 06:01 Chloride 97 mmol/L (98-107) L 05/27/16 06:01 Carbon Dioxide 37 mmol/L (22-30) H 05/27/16 06:01 Anion Gap 9 mmol/L 05/27/16 06:01 BUN 37 mg/dL (7-17) H 05/27/16 06:01 Creatinine 0.60 mg/dL (0.52-1.04) 05/27/16 06:01 Est GFR (MDRD) Af Amer >60 (>60 ml/min/1.73 sqM) 05/27/16 06:01 Est GFR (MDRD) Non-Af >60 (>60 ml/min/1.73 sqM) 05/27/16 06:01 Glucose 84 mg/dL (74-99) 05/27/16 06:01 POC Glucose (mg/dL) 336 mg/dL (75-99) H 05/27/16 20:29 POC Glu Breaker Up Machine Operator Torrie Mayes 05/27/16 20:[address] Glu mg/dL 166 mg/dL 05/23/16 07:03 Hemoglobin A1c 7.4 % (4.2-6.1) H 05/23/16 07:03 Plasma Lactic Acid Good 1.4 mmol/L (0.7-2.0) 05/19/16 13:51 Calcium 8.2 mg/dL (8.4-10.2) L 05/27/16 06:01 Magnesium 1.7 mg/dL (1.6-2.3) 05/19/16 10:05 Total Bilirubin 0.5 mg/dL (0.2-1.3) 05/27/16 06:01 AST 21 U/L (14-36) 05/27/16 06:01 ALT 36 U/L (9-52) 05/27/16 06:01 Alkaline Phosphatase 52 U/L (38-126) 05/27/16 06:01 Total Creatine Kinase <20 U/L (30-135) L 05/19/16 10:05 CK-MB (CK-2) <0.2 ng/mL (0.0-2.4) 05/19/16 10:05 CK-MB (CK-2) Rel Index 05/19/16 10:05 Troponin I 0.071 ng/mL (0.000-0.034) H* 05/19/16 10:05 NT-Pro-B Natriuret Pep 3920 pg/mL 05/20/16 09:00 Total Protein 5.6 g/dL (6.3-8.2) L 05/27/16 06:01 Albumin 2.6 g/dL (3.5-5.0) L 05/27/16 06:01 TSH 2.550 mIU/L (0.465-4.680) 05/21/16 06:30 Free T4 0.76 ng/dL (0.78-2.19) L 05/21/16 06:30 Urine Color Light Yellow 05/19/16 10:25 Urine Appearance Clear (Clear) 05/19/16 10:25 Urine pH 6.5 (5.0-8.0) 05/19/16 10:25 Ur Specific Joy 1.011 (1.001-1.035) 05/19/16 10:25 Urine Protein Trace (Negative) H 05/19/16 10:25 Urine Glucose (UA) Negative (Negative) 05/19/16 10:25 Urine Ketones Negative (Negative) 05/19/16 10:25 Urine Blood Negative (Negative) 05/19/16 10:25 Urine Nitrite Negative (Negative) 05/19/16 10:25 Urine Bilirubin Negative (Negative) 05/19/16 10:25 Urine Urobilinogen <2.0 mg/dL (<2.0) 05/19/16 10:25 Ur Leukocyte Esterase Negative (Negative) 05/19/16 10:25 Influenza Type A RNA Not Detected (Not Detectd) 05/19/16 10:05 Influenza Type B (PCR) Not Detected (Not Detectd) 05/19/16 10:05 Blood Type A Positive 05/23/16 09:33 Blood Type Recheck No 05/23/16 09:33 Antibody Screen NEGATIVE 05/23/16 09:33 Crossmatch See Detail 05/23/16 09:33 Spec Expiration Date 05/26/2016233205/23/16 09:33 Microbiology 05/21/16 12:55 Blood Blood Culture - Final No Growth after 144 hours 05/19/16 10:05 Blood Blood Culture - Final No Growth after 144 hours Assessment and Plan (1) MRSA pneumonia Narrative/Plan: 76-year-old female who has multiple medical troubles occluding underlying significant cardiovascular disease, chronic pulmonary disease with oxygen dependence as well as sleep apnea presents to Hospital profoundly ill from the [facility]. Apparently hospitalized for she had difficulties with gastrointestinal bleeding. During this stay she's had difficulties with congestive heart failure, exacerbation of COPD, extensive thrombus to the left leg requiring thrombectomy and endarterectomy. Patient relates is feeling just slightly better today. Review of the previous culture reveals evidence she does have evidence of the sputum culture with evidence of MRSA present. It does appear to be levofloxacin resistant. She was initiated vancomycin therapy. Is now having a nice improvement within the last day. Vancomycin therapy will continue. Likely would treat her for the next 10-14 days. We'll request her vascular surgeon for IV access, or PICC line if he agrees. We'll monitor response to current antibiotic therapy. We'll likely need to complete a course of this time of her transfer back to extended care. Does not appear to have any acute infection to the left leg after the above interventions. She does not have any significant urinary symptoms. Status: Acute (2) Chronic a-fib Status: Acute (3) Acute blood loss anemia Status: Acute (4) Leukocytosis Status: Acute
[2016-05-28] MEDS: VANCOMYCIN 1,750 MG in SODIUM CHLORIDE 0.9% 250 ML IVPB SCH ×2 (00:44→11:50)
[2016-05-28] MEDS: HYDROcodone/APAP 10-325MG 1 EACH TAB PO PRN ×4 (04:47→21:26)
[2016-05-28 05:35] LABS: Glucose,Whole Blood 90 mg/dL (75-99)
[2016-05-28] MEDS: PANTOPRAZOLE 40 MG TABLET PO SCH (06:30)
[2016-05-28] MEDS: INSULIN LISPRO (humaLOG) 300 UNIT/3 ML VIAL SQ SCH ×4 (06:30→21:27)
[2016-05-28 06:55] LABS: Anisocytosis Slight; Basophils % (A) 0 %; CHCM 28.4; Eosinophils % (A) 0 %; HCT 30.4 % (34.0-46.0); HDW 3.86; HGB 8.7 gm/dL (11.4-16.0); Hypochromasia Marked; Luc # (Auto) 0.15; Luc % (Auto) 1; Lymphocytes # (A) 1.2 k/uL (1.0-4.8); Lymphocytes % (A) 11 %; MCHC 28.5 g/dL (31.0-37.0); MCV 87.8 fL (80.0-100.0); Mean Platelet Volume 8.3; Monocytes # (A) 0.5 k/uL (0-1.0); Monocytes % (A) 5 %; Neutrophils # (A) 8.8 k/uL (1.3-7.7); Neutrophils % (A) 82 %; Poikilocytosis Slight; RBC 3.46 m/uL (3.80-5.40); RDW 18.7 % (11.5-15.5); WBC 10.7 k/uL (3.8-10.6)
[2016-05-28 07:01] LABS: Prothrombin Time 48.6 sec (9.0-12.0)
[2016-05-28 07:20] LABS: ALT 34 U/L (9-52); AST 15 U/L (14-36); Alkaline Phosphatase 56 U/L (38-126); Anion Gap 8 mmol/L; Blood Urea Nitrogen 31 mg/dL (7-17); Calcium 7.7 mg/dL (8.4-10.2); Carbon Dioxide 37 mmol/L (22-30); Chloride 96 mmol/L (98-107); Glucose 70 mg/dL (74-99); Non-African American GFR(MDRD) >60 (>60 ml/min/1.73 sqM); Potassium 3.6 mmol/L (3.5-5.1); Sodium 141 mmol/L (137-145); Total Bilirubin 0.4 mg/dL (0.2-1.3); Total Protein 5.5 g/dL (6.3-8.2)
[2016-05-28 07:26] LABS: INR 4.9 (<1.1)
[2016-05-28] MEDS: BUDESONIDE 1 MG/2 ML NEBU INHALATION SCH ×2 (08:24→19:29)
[2016-05-28] MEDS: IPRATROPIUM-ALBUTEROL 3 ML NEB INHALATION SCH ×4 (08:24→19:29)
[2016-05-28] MEDS: METOPROLOL SUCCINATE (ER) 100 MG TAB.ER.24H PO SCH ×2 (08:45→21:26)
[2016-05-28] MEDS: predniSONE 20 MG TAB PO SCH (08:45)
[2016-05-28] MEDS: FUROSEMIDE 10 MG/ML 4 ML VIAL IV SCH ×2 (08:45→21:25)
[2016-05-28] MEDS: guaiFENesin 600 MG TABLET.ER PO SCH ×2 (08:46→21:25)
[2016-05-28] MEDS: DOCUSATE 100 MG CAP PO SCH ×2 (08:46→21:25)
[2016-05-28] MEDS: INSULIN DETEMIR 100 UNIT/ML 10 ML VIAL SQ SCH ×2 (08:47→21:27)
[2016-05-28] MEDS: ALPRAZolam 0.25 MG TAB PO SCH ×2 (08:49→21:29)
[2016-05-28 11:27] LABS: Glucose,Whole Blood 144 mg/dL (75-99)
--- NOTE | 2016-05-28 13:30 | P.PN ---
Subjective This is a 76-year-old female patient who is being evaluated and examined today on the sixth floor. This patient is well-known to our service. This patient recently was hospitalized in April with a left leg ischemia status post thrombectomy, pneumonia, COPD exacerbation, GI bleed, and CHF exacerbation. The patient was subsequently discharged to [facility]. She came back to the emergency room with some shortness of breath, cough, fever, generalized weakness and lethargy. She also states that she had been having some difficulty with urination. The patient was admitted with pneumonia, bronchospasms, acute hypoxia, chronic anemia, free bilateral illness and elevated troponins. The patient is known to have chronic hypoxia and uses 3 L of oxygen at the rehab facility as well and she wears CPAP for obstructive sleep apnea. Upon examination the patient is resting in bed up on 4 L of oxygen via nasal cannula she continues to have shortness of breath with exertion or extensive conversation. Continues with chronic cough, non productive today. She feels her breathing is better today compared to previous. Objective - Vital Signs Vital signs: Vital Signs Temp 97.7 F 05/28/16 11:02 Pulse 77 05/28/16 11:49 Resp 18 05/28/16 11:02 BP 127/59 05/28/16 11:02 Pulse Ox 96 05/28/16 11:02 Intake & Output 05/27/16 05/28/16 05/28/16 18:59 06:59 18:59 Intake Total 200 200 240 Output Total 650 1150 300 Balance -450 -950 -60 Weight 111.5 kg Intake: Oral 200 200 240 Output: Urine 650 1150 300 Other: Voiding Method Bedpan Bedpan Bedpan # Voids 2 1 - Exam GENERAL EXAM: Alert, active, comfortable in no apparent distress. HEAD: Normocephalic. EYES: Normal reaction of pupils, equal size. NOSE: Clear with pink turbinates. THROAT: No erythema or exudates. NECK: No masses, no JVD. CHEST: No chest wall deformity. LUNGS: Lungs noted to be bilaterally coarse, with scattered rhonchi and crackles. CVS: S1 and S2 normal with no audible mumurs, regular rhythm. ABDOMEN: No hepatosplenomegaly, normal bowel sounds, no guarding or rigidity. EXTREMITIES: Trace edema noted, pedal pulses palpable. SKIN: No rashes CENTRAL NERVOUS SYSTEM: No focal deficits, tone is normal in all 4 extremities. - Labs CBC & Chem 7: 05/28/16 06:02 05/28/16 06:02 Labs: Abnormal Lab Results - Last 24 Hours (Table) 05/27/16 05/27/16 05/28/16 Range/Units 17:06 20:29 06:02 WBC 10.7 H (3.8-10.6) k/uL RBC 3.46 L (3.80-5.40) m/uL Hgb 8.7 L (11.4-16.0) gm/dL Hct 30.4 L (34.0-46.0) % MCHC 28.5 L (31.0-37.0) g/dL RDW 18.7 H (11.5-15.5) % Neutrophils # 8.8 H (1.3-7.7) k/uL PT (9.0-12.0) sec Chloride (98-107) mmol/L Carbon Dioxide (22-30) mmol/L BUN (7-17) mg/dL Glucose (74-99) mg/dL POC Glucose (mg/dL) 319 H 336 H (75-99) mg/dL Calcium (8.4-10.2) mg/dL Total Protein (6.3-8.2) g/dL Albumin (3.5-5.0) g/dL 05/28/16 05/28/16 05/28/16 Range/Units 06:02 06:02 11:21 WBC (3.8-10.6) k/uL RBC (3.80-5.40) m/uL Hgb (11.4-16.0) gm/dL Hct (34.0-46.0) % MCHC (31.0-37.0) g/dL RDW (11.5-15.5) % Neutrophils # (1.3-7.7) k/uL PT 48.6 H (9.0-12.0) sec Chloride 96 L (98-107) mmol/L Carbon Dioxide 37 H (22-30) mmol/L BUN 31 H (7-17) mg/dL Glucose 70 L (74-99) mg/dL POC Glucose (mg/dL) 144 H (75-99) mg/dL Calcium 7.7 L (8.4-10.2) mg/dL Total Protein 5.5 L (6.3-8.2) g/dL Albumin 2.5 L (3.5-5.0) g/dL Microbiology - Last 24 Hours (Table) 05/21/16 12:55 Blood Culture - Final Blood No Growth after 144 hours Assessment and Plan Plan: assessment Pneumonia with sepsis Acute exacerbation of chronic obstructive pulmonary disease Acute on chronic systolic congestive heart failure exacerbation Elevated troponins Acute anemia secondary to chronic blood loss and suspected lower GI bleed Chronic atrial fibrillation Diabetes mellitus insulin-dependent Plan Medications have been reviewed and will be continued as ordered. Cardiology and ID is also on consult. Currently awaiting chest x-ray results. Patient has been switched from Levaquin to vancomycin for positive MRSA in the sputum. Potassium replacement per protocol. We will see how she does over the next few days and will schedule a possible bronchoscopy on Tuesday depending on her presentation at that time. Continue with supportive care. We will continue to monitor labs/results and adjust treatment as necessary. I performed an examination of the patient and discussed their management with the nurse practitioner. I have reviewed the nurse practitioner's note and agree with the documented findings and plan of care.
[2016-05-28] MEDS ORDERED: Magnesium Replacement Protocol 1 EACH MISC MISCELLANE PRN (14:43)
[2016-05-28] MEDS ORDERED: Potassium Replacement Protocol 1 EACH MISC MISCELLANE PRN (14:43)
--- NOTE | 2016-05-28 14:44 | P.PN ---
Subjective Patient is being seen by me today for the first time. I'm covering for Dr. Parrish. Patient has a complex medical history noted below. She has been in the hospital for approximately 10 days. Patient said that she is doing a lot better today. Her shortness of breath has improved. She does not have any complaints at this time. Objective - Vital Signs Vital signs: Vital Signs Temp 97.7 F 05/28/16 11:02 Pulse 77 05/28/16 11:49 Resp 18 05/28/16 11:02 BP 127/59 05/28/16 11:02 Pulse Ox 96 05/28/16 11:02 Intake & Output 05/27/16 05/28/16 05/28/16 18:59 06:59 18:59 Intake Total 200 200 730 Output Total 650 1150 300 Balance -450 -950 430 Weight 111.5 kg Intake: IV 250 Vancomycin 1,750 mg In 250 Sodium Chloride 0.9% 250 ml @ 125 mls/hr IVPB Q12H [facility] Rx#:[id number] Oral 200 200 480 Output: Urine 650 1150 300 Other: Voiding Method Bedpan Bedpan Bedpan # Voids 2 1 - Exam General: The patient is awake and alert, in no distress Eye: there is normal conjunctiva bilaterally. Neck: The neck is supple, there is no JVD. Cardiovascular: Normal S1-S2, no S3-S4, no murmurs. Respiratory: Lungs clear to auscultation bilaterally Gastrointestinal: Abdomen is soft, nontender Musculoskeletal: There is no pedal edema. Neurological:. Speech is normal. Skin: Skin is warm and dry - Labs CBC & Chem 7: 05/28/16 06:02 05/28/16 06:02 Labs: Abnormal Lab Results - Last 24 Hours (Table) 05/27/16 05/27/16 05/28/16 Range/Units 17:06 20:29 06:02 WBC 10.7 H (3.8-10.6) k/uL RBC 3.46 L (3.80-5.40) m/uL Hgb 8.7 L (11.4-16.0) gm/dL Hct 30.4 L (34.0-46.0) % MCHC 28.5 L (31.0-37.0) g/dL RDW 18.7 H (11.5-15.5) % Neutrophils # 8.8 H (1.3-7.7) k/uL PT (9.0-12.0) sec Chloride (98-107) mmol/L Carbon Dioxide (22-30) mmol/L BUN (7-17) mg/dL Glucose (74-99) mg/dL POC Glucose (mg/dL) 319 H 336 H (75-99) mg/dL Calcium (8.4-10.2) mg/dL Total Protein (6.3-8.2) g/dL Albumin (3.5-5.0) g/dL 05/28/16 05/28/16 05/28/16 Range/Units 06:02 06:02 11:21 WBC (3.8-10.6) k/uL RBC (3.80-5.40) m/uL Hgb (11.4-16.0) gm/dL Hct (34.0-46.0) % MCHC (31.0-37.0) g/dL RDW (11.5-15.5) % Neutrophils # (1.3-7.7) k/uL PT 48.6 H (9.0-12.0) sec Chloride 96 L (98-107) mmol/L Carbon Dioxide 37 H (22-30) mmol/L BUN 31 H (7-17) mg/dL Glucose 70 L (74-99) mg/dL POC Glucose (mg/dL) 144 H (75-99) mg/dL Calcium 7.7 L (8.4-10.2) mg/dL Total Protein 5.5 L (6.3-8.2) g/dL Albumin 2.5 L (3.5-5.0) g/dL Microbiology - Last 24 Hours (Table) 05/21/16 12:55 Blood Culture - Final Blood No Growth after 144 hours Assessment and Plan Plan: 1. Pneumonia with sepsis: Chest x-ray showing cardiomegaly with peripheral vascular congestion and patchy density in the right lower lobe. Evaluated by Dr. Wild, antibiotic were switched to IV vancomycin 2. Acute on chronic systolic CHF exacerbation. Most recent echo shows an EF of 40-45%, Chest x-ray showing peripheral vascular congestion. 3. Cardiac pauses. Continue with telemetry monitoring. Cardiology following 4. Insulin-dependent diabetes mellitus, A1c is 7.2 continue was Levemir and NovoLog 5. Elevated troponin with no chest pain. Cardiology following 6. Acute anemia secondary to chronic blood loss and suspected lower GI bleed. Was unable to have a colonoscopy during last admission due to multiple complications. She had a EGD last month. 7. Chronic atrial fibrillation maintained on Coumadin for anticoagulation. Monitor PT/INRs closely 8. History of COPD: Continue with nebulizer treatments.
--- NOTE | 2016-05-28 15:39 | P.PN ---
Progress Note - Text COURTESY Known to service Underwent left femoral embolectomy 05/07/2016 Feels much better and now participating in physical therpay PE: left groin incision is healing without incident; left foot is viable; left foot drop is present with 4/5 motor strength in extensor groups left leg all sutures were removed today f/u office in 1 month or sooner if problems
[2016-05-28 16:35] LABS: Glucose,Whole Blood 167 mg/dL (75-99)
--- NOTE | 2016-05-28 18:14 | P.PN ---
Subjective Principal diagnosis: Shortness of breath 76-year-old female who has an extensive hospitalization currently at 7 days of admission but actually it's been longer than that due to her short hiatus out of the hospital. She was deemed medically stable to be to leave the hospital to attend her 's this occurred while she has been so ill. The patient was admitted with severe shortness of breath from the extended care facility she was being cared for after her gastrointestinal bleeding and worsening of her underlying pulmonary disease. The patient does have severe underlying pulmonary disease and wears oxygen at all times and does use a CPAP at night because of her sleep apnea. Recently this has definitely been worse and because of concerns to ongoing pneumonia the infectious diseases consultation was requested This patient relates she just feeling slightly better than when she was first admitted. She was having difficulties that time also with her lower extremity and the left. She was seen by vascular surgery and a large clot was noted and a thrombectomy , endarterectomy and patch angioplasty was performed of the left arterial system, large clot was seen. Patient relates that her leg continues to feel okay. She's having improved shortness of breath today. Choice of the best she has felt in weeks. She is having less cough and sputum production is able to speak in sentences because she is so less short of breath. Patient continues to have further improvement of her status. Much less short of breath today. Objective - Vital Signs Vital signs: Vital Signs Temp 97.7 F 05/28/16 11:02 Pulse 72 05/28/16 16:01 Resp 18 05/28/16 15:49 BP 137/78 05/28/16 15:49 Pulse Ox 94 L 05/28/16 15:49 Intake & Output 05/27/16 05/28/16 05/28/16 18:59 06:59 18:59 Intake Total 200 200 970 Output Total 650 1150 300 Balance -450 -950 670 Weight 111.5 kg Intake: IV 250 Vancomycin 1,750 mg In 250 Sodium Chloride 0.9% 250 ml @ 125 mls/hr IVPB Q12H [facility] [place] Rx#:[id number] Oral 200 200 720 Output: Urine 650 1150 300 Other: Voiding Method Bedpan Bedpan Bedpan # Voids 2 1 - Exam 76-year-old woman who relates she is feeling less short of breath but appears to still be short of breath HEENT: Anicteric conjunctiva are pink and moist nasal mucosa grossly intact without significant lesions, there is no thrush. Worn dentition Neck: The neck is supple without significant lymphadenopathy or thyromegaly. Lungs: Symmetrical air entry is noted. Wheezes throughout the lung olivares are noted. Bibasilar crackles are heard right greater than left no dullness is noted minimal egophony to the right base is noted Heart: Regular rate and rhythm with an audible S1-S2, no S3 no S4. There is no significant murmur click or rub, PMI was nondisplaced. Abdomen: Obese, Positive bowel sounds soft and nontender without palpable masses or organomegaly. There was no guarding or rebound. Extremities: The upper and lower extremity is have some generalized edema. However no open ulcerations are seen. The entry site for the thrombectomy is without bleeding drainage or evidence of infection or tenderness Neuro: Awake alert oriented to person place and time. There are no acute new gross focal sensory motor deficits. She has significant generalized weakness though - Labs CBC & Chem 7: 05/28/16 06:02 05/28/16 06:02 Labs: Abnormal Lab Results - Last 24 Hours (Table) 05/27/16 05/28/16 05/28/16 Range/Units 20:29 06:02 06:02 WBC 10.7 H (3.8-10.6) k/uL RBC 3.46 L (3.80-5.40) m/uL Hgb 8.7 L (11.4-16.0) gm/dL Hct 30.4 L (34.0-46.0) % MCHC 28.5 L (31.0-37.0) g/dL RDW 18.7 H (11.5-15.5) % Neutrophils # 8.8 H (1.3-7.7) k/uL PT 48.6 H (9.0-12.0) sec Chloride (98-107) mmol/L Carbon Dioxide (22-30) mmol/L BUN (7-17) mg/dL Glucose (74-99) mg/dL POC Glucose (mg/dL) 336 H (75-99) mg/dL Calcium (8.4-10.2) mg/dL Total Protein (6.3-8.2) g/dL Albumin (3.5-5.0) g/dL 05/28/16 05/28/16 05/28/16 Range/Units 06:02 11:21 16:21 WBC (3.8-10.6) k/uL RBC (3.80-5.40) m/uL Hgb (11.4-16.0) gm/dL Hct (34.0-46.0) % MCHC (31.0-37.0) g/dL RDW (11.5-15.5) % Neutrophils # (1.3-7.7) k/uL PT (9.0-12.0) sec Chloride 96 L (98-107) mmol/L Carbon Dioxide 37 H (22-30) mmol/L BUN 31 H (7-17) mg/dL Glucose 70 L (74-99) mg/dL POC Glucose (mg/dL) 144 H 167 H (75-99) mg/dL Calcium 7.7 L (8.4-10.2) mg/dL Total Protein 5.5 L (6.3-8.2) g/dL Albumin 2.5 L (3.5-5.0) g/dL Microbiology - Last 24 Hours (Table) 05/21/16 12:55 Blood Culture - Final Blood No Growth after 144 hours Laboratory Results WBC 10.7 k/uL (3.8-10.6) H 05/28/16 06:02 RBC 3.46 m/uL (3.80-5.40) L 05/28/16 06:02 Hgb 8.7 gm/dL (11.4-16.0) L 05/28/16 06:02 Hct 30.4 % (34.0-46.0) L 05/28/16 06:02 MCV 87.8 fL (80.0-100.0) 05/28/16 06:02 MCH 25.0 pg (25.0-35.0) 05/28/16 06:02 MCHC 28.5 g/dL (31.0-37.0) L 05/28/16 06:02 RDW 18.7 % (11.5-15.5) H 05/28/16 06:02 Plt Count 193 k/uL (150-450) 05/28/16 06:02 Neutrophils % 82 % 05/28/16 06:02 Lymphocytes % 11 % 04/07/17 06:02 Monocytes % 5 % 05/28/16 06:02 Eosinophils % 0 % 05/28/16 06:02 Basophils % 0 % 05/28/16 06:02 Neutrophils # 8.8 k/uL (1.3-7.7) H 05/28/16 06:02 Lymphocytes # 1.2 k/uL (1.0-4.8) 05/28/16 06:02 Monocytes # 0.5 k/uL (0-1.0) 05/28/16 06:02 Eosinophils # 0.0 k/uL (0-0.7) 05/28/16 06:02 Basophils # 0.0 k/uL (0-0.2) 05/28/16 06:02 Hypochromasia Marked 05/28/16 06:02 Poikilocytosis Slight 05/28/16 06:02 Anisocytosis Slight 05/28/16 06:02 PT 48.6 sec (9.0-12.0) H 05/28/16 06:02 INR 4.9 (<1.1) 05/28/16 06:02 APTT 27.1 sec (22.0-30.0) 05/19/16 10:05 Sodium 141 mmol/L (137-145) 05/28/16 06:02 Potassium 3.6 mmol/L (3.5-5.1) 05/28/16 06:02 Chloride 96 mmol/L (98-107) L 05/28/16 06:02 Carbon Dioxide 37 mmol/L (22-30) H 05/28/16 06:02 Anion Gap 8 mmol/L 05/28/16 06:02 BUN 31 mg/dL (7-17) H 05/28/16 06:02 Creatinine 0.65 mg/dL (0.52-1.04) 05/28/16 06:02 Est GFR (MDRD) Af Amer >60 (>60 ml/min/1.73 sqM) 05/28/16 06:02 Est GFR (MDRD) Non-Af >60 (>60 ml/min/1.73 sqM) 05/28/16 06:02 Glucose 70 mg/dL (74-99) L 05/28/16 06:02 POC Glucose (mg/dL) 167 mg/dL (75-99) H 05/28/16 16:21 POC Glu Director It Project ID Rula Ham 05/28/16 16:[address] Glu mg/dL 166 mg/dL 05/23/16 07:03 Hemoglobin A1c 7.4 % (4.2-6.1) H 05/23/16 07:03 Plasma Lactic Acid Good 1.4 mmol/L (0.7-2.0) 05/19/16 13:51 Calcium 7.7 mg/dL (8.4-10.2) L 05/28/16 06:02 Magnesium 1.9 mg/dL (1.6-2.3) 05/28/16 06:02 Total Bilirubin 0.4 mg/dL (0.2-1.3) 05/28/16 06:02 AST 15 U/L (14-36) 05/28/16 06:02 ALT 34 U/L (9-52) 05/28/16 06:02 Alkaline Phosphatase 56 U/L (38-126) 05/28/16 06:02 Total Creatine Kinase <20 U/L (30-135) L 05/19/16 10:05 CK-MB (CK-2) <0.2 ng/mL (0.0-2.4) 05/19/16 10:05 CK-MB (CK-2) Rel Index 05/19/16 10:05 Troponin I 0.071 ng/mL (0.000-0.034) H* 05/19/16 10:05 NT-Pro-B Natriuret Pep 3920 pg/mL 05/20/16 09:00 Total Protein 5.5 g/dL (6.3-8.2) L 05/28/16 06:02 Albumin 2.5 g/dL (3.5-5.0) L 05/28/16 06:02 TSH 2.550 mIU/L (0.465-4.680) 05/21/16 06:30 Free T4 0.76 ng/dL (0.78-2.19) L 05/21/16 06:30 Urine Color Light Yellow 05/19/16 10:25 Urine Appearance Clear (Clear) 05/19/16 10:25 Urine pH 6.5 (5.0-8.0) 05/19/16 10:25 Ur Specific [place] 1.011 (1.001-1.035) 05/19/16 10:25 Urine Protein Trace (Negative) H 05/19/16 10:25 Urine Glucose (UA) Negative (Negative) 05/19/16 10:25 Urine Ketones Negative (Negative) 05/19/16 10:25 Urine Blood Negative (Negative) 05/19/16 10:25 Urine Nitrite Negative (Negative) 05/19/16 10:25 Urine Bilirubin Negative (Negative) 05/19/16 10:25 Urine Urobilinogen <2.0 mg/dL (<2.0) 05/19/16 10:25 Ur Leukocyte Esterase Negative (Negative) 05/19/16 10:25 Influenza Type A RNA Not Detected (Not Detectd) 05/19/16 10:05 Influenza Type B (PCR) Not Detected (Not Detectd) 05/19/16 10:05 Blood Type A Positive 05/23/16 09:33 Blood Type Recheck No 05/23/16 09:33 Antibody Screen NEGATIVE 05/23/16 09:33 Crossmatch See Detail 05/23/16 09:33 Spec Expiration Date 05/26/2016 - 2333 05/23/16 09:33 Microbiology 05/21/16 12:55 Blood Blood Culture - Final No Growth after 144 hours 05/19/16 10:05 Blood Blood Culture - Final No Growth after 144 hours Assessment and Plan (1) MRSA pneumonia Narrative/Plan: 76-year-old female who has multiple medical troubles occluding underlying significant cardiovascular disease, chronic pulmonary disease with oxygen dependence as well as sleep apnea presents to Hospital profoundly ill from the extended care facility. Apparently hospitalized for she had difficulties with gastrointestinal bleeding. During this stay she's had difficulties with congestive heart failure, exacerbation of COPD, extensive thrombus to the left leg requiring thrombectomy and endarterectomy. Patient relates is feeling just slightly better today. Review of the previous culture reveals evidence she does have evidence of the sputum culture with evidence of MRSA present. It does appear to be levofloxacin resistant. She was initiated vancomycin therapy. Is now having a nice improvement within the last day. Vancomycin therapy will continue. Likely would treat her for the next 14 days. We'll request her vascular surgeon for IV access, or PICC line if he agrees. We'll monitor response to current antibiotic therapy. We'll likely need to complete a course of this time of her transfer back to extended care. Does not appear to have any acute infection to the left leg after the above interventions. She does not have any significant urinary symptoms. Status: Acute (2) Chronic a-fib Status: Acute (3) Acute blood loss anemia Status: Acute (4) Leukocytosis Status: Acute
[2016-05-28 20:58] LABS: Glucose,Whole Blood 257 mg/dL (75-99)
[2016-05-28] MEDS: LOSARTAN 50 MG TAB PO SCH (21:25)
[2016-05-28] MEDS: MONTELUKAST 10 MG TAB PO SCH (21:26)
[2016-05-28] MEDS: PRAVASTATIN SODIUM 20 MG TAB PO SCH (21:26)
[2016-05-28] MEDS ORDERED: VANCOMYCIN TROUGH DUE 1 EACH MISC MISCELLANE ONE (23:00)
[2016-05-29] MEDS: VANCOMYCIN 1,750 MG in SODIUM CHLORIDE 0.9% 250 ML IVPB SCH ×2 (01:00→16:04)
[2016-05-29] MEDS: HYDROcodone/APAP 10-325MG 1 EACH TAB PO PRN ×3 (04:11→18:56)
[2016-05-29 06:50] LABS: Glucose,Whole Blood 222 mg/dL (75-99)
[2016-05-29] MEDS: INSULIN LISPRO (humaLOG) 300 UNIT/3 ML VIAL SQ SCH ×4 (06:58→21:57)
[2016-05-29] MEDS: PANTOPRAZOLE 40 MG TABLET PO SCH (06:59)
[2016-05-29 07:06] LABS: ALT 34 U/L (9-52); AST 18 U/L (14-36); Alkaline Phosphatase 58 U/L (38-126); Anion Gap 6 mmol/L; Blood Urea Nitrogen 27 mg/dL (7-17); Calcium 7.8 mg/dL (8.4-10.2); Carbon Dioxide 39 mmol/L (22-30); Chloride 95 mmol/L (98-107); Glucose 192 mg/dL (74-99); Magnesium 1.9 mg/dL (1.6-2.3); Non-African American GFR(MDRD) >60 (>60 ml/min/1.73 sqM); Phosphorous 3.4 mg/dL (2.5-4.5); Potassium 3.6 mmol/L (3.5-5.1); Sodium 140 mmol/L (137-145); Total Bilirubin 0.2 mg/dL (0.2-1.3); Total Protein 5.2 g/dL (6.3-8.2)
[2016-05-29 07:08] LABS: Prothrombin Time 55.6 sec (9.0-12.0)
[2016-05-29 07:17] LABS: INR 5.5 (<1.1)
[2016-05-29] MEDS: BUDESONIDE 1 MG/2 ML NEBU INHALATION SCH ×2 (07:44→20:52)
[2016-05-29] MEDS: IPRATROPIUM-ALBUTEROL 3 ML NEB INHALATION SCH ×4 (07:44→20:54)
[2016-05-29] MEDS: INSULIN DETEMIR 100 UNIT/ML 10 ML VIAL SQ SCH ×2 (08:51→22:06)
[2016-05-29] MEDS: ALPRAZolam 0.25 MG TAB PO SCH ×2 (08:51→22:06)
[2016-05-29] MEDS: FUROSEMIDE 10 MG/ML 4 ML VIAL IV SCH ×2 (08:51→21:56)
[2016-05-29] MEDS: METOPROLOL SUCCINATE (ER) 100 MG TAB.ER.24H PO SCH ×2 (08:52→21:57)
[2016-05-29] MEDS: guaiFENesin 600 MG TABLET.ER PO SCH ×2 (08:52→21:56)
[2016-05-29] MEDS: predniSONE 20 MG TAB PO SCH (08:53)
[2016-05-29] MEDS: DOCUSATE 100 MG CAP PO SCH ×2 (08:53→21:57)
[2016-05-29 11:40] LABS: Glucose,Whole Blood 224 mg/dL (75-99)
[2016-05-29] MEDS ORDERED: PHYTONADIONE ORAL 5 MG/5 ML ORAL.SYRG PO STA (13:11)
[2016-05-29] MEDS: IPRATROPIUM-ALBUTEROL 3 ML NEB INHALATION PRN (14:07)
--- NOTE | 2016-05-29 14:16 | P.PN ---
Subjective Patient was seen and evaluated today. She denies any significant shortness of breath. She had mild bibasilar crackles. She denies any cough. No wheezing. Objective - Vital Signs Vital signs: Vital Signs Temp 97.1 F L 05/29/16 08:00 Pulse 84 05/29/16 14:08 Resp 18 05/29/16 11:36 BP 136/51 05/29/16 11:36 Pulse Ox 94 L 05/29/16 11:36 Intake & Output 05/28/16 05/29/16 05/29/16 18:59 06:59 18:59 Intake Total 970 472 Output Total 300 300 Balance 670 172 Weight 111 kg Intake: IV 250 Vancomycin 1,750 mg In 250 Sodium Chloride 0.9% 250 ml @ 125 mls/hr IVPB Q12H [facility] Rx#:[id number] Oral 720 472 Output: Urine 300 300 Other: Voiding Method Bedpan Bedpan Bedpan # Voids 1 2 1 - Exam General: The patient is awake and alert, in no distress Eye: there is normal conjunctiva bilaterally. Neck: The neck is supple, there is no JVD. Cardiovascular: Normal S1-S2, no S3-S4, no murmurs. Respiratory: Lungs with scattered bibasilar crackles Gastrointestinal: Abdomen is soft, nontender Musculoskeletal: There is no pedal edema. Neurological:. Speech is normal. Skin: Skin is warm and dry - Labs CBC & Chem 7: 05/28/16 06:02 05/29/16 06:00 Labs: Abnormal Lab Results - Last 24 Hours (Table) 05/28/16 05/28/16 05/29/16 Range/Units 16:21 20:55 06:00 PT 55.6 H (9.0-12.0) sec INR 5.5 H* (<1.1) Chloride (98-107) mmol/L Carbon Dioxide (22-30) mmol/L BUN (7-17) mg/dL Glucose (74-99) mg/dL POC Glucose (mg/dL) 167 H 257 H (75-99) mg/dL Calcium (8.4-10.2) mg/dL Total Protein (6.3-8.2) g/dL Albumin (3.5-5.0) g/dL 05/29/16 05/29/16 05/29/16 Range/Units 06:00 06:34 11:38 PT (9.0-12.0) sec INR (<1.1) Chloride 95 L (98-107) mmol/L Carbon Dioxide 39 H (22-30) mmol/L BUN 27 H (7-17) mg/dL Glucose 192 H (74-99) mg/dL POC Glucose (mg/dL) 222 H 224 H (75-99) mg/dL Calcium 7.8 L (8.4-10.2) mg/dL Total Protein 5.2 L (6.3-8.2) g/dL Albumin 2.4 L (3.5-5.0) g/dL Assessment and Plan Plan: 1. Pneumonia with sepsis: Chest x-ray showing cardiomegaly with peripheral vascular congestion and patchy density in the right lower lobe. Evaluated by Dr. Wild, antibiotic were switched to IV vancomycin 2. Acute on chronic systolic CHF exacerbation. Most recent echo shows an EF of 40-45%, Chest x-ray showing peripheral vascular congestion. 3. Cardiac pauses. Continue with telemetry monitoring. Cardiology following 4. Insulin-dependent diabetes mellitus, A1c is 7.2 continue was Levemir and NovoLog 5. Elevated troponin with no chest pain. Cardiology following 6. Acute anemia secondary to chronic blood loss and suspected lower GI bleed. Was unable to have a colonoscopy during last admission due to multiple complications. She had a EGD last month. 7. Chronic atrial fibrillation maintained on Coumadin for anticoagulation. Monitor PT/INRs closely 8. History of COPD: Continue with nebulizer treatments. Today, I reviewed her medication list and lab work results. We will give 2.5 mg of vitamin K orally and repeat INR in the morning. Plan for PICC line placement on Tuesday. Return to ECF possibly Tuesday to finish 10 days course of IV antibiotic.
--- NOTE | 2016-05-29 14:49 | PN ---
Maria De Jesus Bui is a 76-year-old female, seen, evaluated and examined. The patient is currently on 4 L oxygen. She is breathing comfortably. Her cough, congestion, shortness of breath has been improving progressively. However, she still has a component of anasarca. She uses CPAP machine each night and p.r.n. during the day. Her blood pressure is 128/56, respiratory rate 18, pulse 75, temperature 98, satting 97%. HEENT: Unremarkable. NECK: Supple. LUNGS: Good air entry is present with a few crackles at bases. HEART: Regular rate and rhythm. S1 and S2 audible. ABDOMEN: Soft. No rebound or rigidity. EXTREMITIES: +1 peripheral pulses. NEUROLOGICAL EXAMINATION: Otherwise, awake and alert. IMPRESSION: 1. Bilateral pneumonia with fever, sepsis, clinically ( ) is slowly improving. Continue oxygen. Continue breathing treatments, steroids, antibiotics. Continue supportive care. The patient is being placed on vancomycin for methicillin-resistant Staphylococcus aureus in the urine. Will monitor and observe. If continued to have issues with intermittent respiratory difficulty, may need a bronchoscopy and pulmonary toilet. 2. Chronic atrial fibrillation. 3. Congestive heart failure, acute on chronic systolic heart failure. Would recommend continue gentle diuresis. 4. Other issues include hyperglycemia, uncontrolled diabetes. We will monitor and observe closely. Increase activity as tolerated. 5. Cardiomyopathy related to chronic systolic failure with ejection fraction of 40%, optimize cardiac medications. Continue supportive care. Continue gentle diuresis. 6. Anemia related to intermittent gastrointestinal bleed but, however, has been stable. Patient has a negative EGD a month ago. Colonoscopy is pending. Will follow.
[2016-05-29 16:39] LABS: Glucose,Whole Blood 207 mg/dL (75-99)
--- NOTE | 2016-05-29 17:58 | P.PN ---
Subjective Principal diagnosis: Shortness of breath 76-year-old female who has an extensive hospitalization currently at 7 days of admission but actually it's been longer than that due to her short hiatus out of the hospital. She was deemed medically stable to be to leave the hospital to attend her 's this occurred while she has been so ill. The patient was admitted with severe shortness of breath from the extended care facility she was being cared for after her gastrointestinal bleeding and worsening of her underlying pulmonary disease. The patient does have severe underlying pulmonary disease and wears oxygen at all times and does use a CPAP at night because of her sleep apnea. Recently this has definitely been worse and because of concerns to ongoing pneumonia the infectious diseases consultation was requested This patient relates she just feeling slightly better than when she was first admitted. She was having difficulties that time also with her lower extremity and the left. She was seen by vascular surgery and a large clot was noted and a thrombectomy , endarterectomy and patch angioplasty was performed of the left arterial system, large clot was seen. Patient relates that her leg continues to feel okay. She's having improved shortness of breath today. Choice of the best she has felt in weeks. She is having less cough and sputum production is able to speak in sentences because she is so less short of breath. Patient continues to have further improvement of her status. Much less short of breath today. Objective - Vital Signs Vital signs: Vital Signs Temp 97.1 F L 05/29/16 08:00 Pulse 80 05/29/16 16:00 Resp 18 05/29/16 16:00 BP 131/55 05/29/16 16:00 Pulse Ox 96 05/29/16 16:00 Intake & Output 05/28/16 05/29/16 05/29/16 18:59 06:59 18:59 Intake Total 970 472 Output Total 300 300 Balance 670 172 Weight 111 kg Intake: IV 250 Vancomycin 1,750 mg In 250 Sodium Chloride 0.9% 250 ml @ 125 mls/hr IVPB Q12H [facility] Rx#:[id number] Oral 720 472 Output: Urine 300 300 Other: Voiding Method Bedpan Bedpan Bedpan # Voids 1 2 1 - Exam 76-year-old woman who relates she is feeling less short of breath but appears to still be short of breath HEENT: Anicteric conjunctiva are pink and moist nasal mucosa grossly intact without significant lesions, there is no thrush. Worn dentition Neck: The neck is supple without significant lymphadenopathy or thyromegaly. Lungs: Symmetrical air entry is noted. Wheezes throughout the lung olivares are noted. Bibasilar crackles are heard right greater than left no dullness is noted minimal egophony to the right base is noted Heart: Regular rate and rhythm with an audible S1-S2, no S3 no S4. There is no significant murmur click or rub, PMI was nondisplaced. Abdomen: Obese, Positive bowel sounds soft and nontender without palpable masses or organomegaly. There was no guarding or rebound. Extremities: The upper and lower extremity is have some generalized edema. However no open ulcerations are seen. The entry site for the thrombectomy is without bleeding drainage or evidence of infection or tenderness Neuro: Awake alert oriented to person place and time. There are no acute new gross focal sensory motor deficits. She has significant generalized weakness though - Labs CBC & Chem 7: 05/28/16 06:02 05/29/16 06:00 Labs: Abnormal Lab Results - Last 24 Hours (Table) 05/28/16 05/29/16 05/29/16 Range/Units 20:55 06:00 06:00 PT 55.6 H (9.0-12.0) sec INR 5.5 H* (<1.1) Chloride 95 L (98-107) mmol/L Carbon Dioxide 39 H (22-30) mmol/L BUN 27 H (7-17) mg/dL Glucose 192 H (74-99) mg/dL POC Glucose (mg/dL) 257 H (75-99) mg/dL Calcium 7.8 L (8.4-10.2) mg/dL Total Protein 5.2 L (6.3-8.2) g/dL Albumin 2.4 L (3.5-5.0) g/dL 05/29/16 05/29/16 05/29/16 Range/Units 06:34 11:38 16:37 PT (9.0-12.0) sec INR (<1.1) Chloride (98-107) mmol/L Carbon Dioxide (22-30) mmol/L BUN (7-17) mg/dL Glucose (74-99) mg/dL POC Glucose (mg/dL) 222 H 224 H 207 H (75-99) mg/dL Calcium (8.4-10.2) mg/dL Total Protein (6.3-8.2) g/dL Albumin (3.5-5.0) g/dL Laboratory Results WBC 10.7 k/uL (3.8-10.6) H 05/28/16 06:02 RBC 3.46 m/uL (3.80-5.40) L 05/28/16 06:02 Hgb 8.7 gm/dL (11.4-16.0) L 05/28/16 06:02 Hct 30.4 % (34.0-46.0) L 05/28/16 06:02 MCV 87.8 fL (80.0-100.0) 05/28/16 06:02 MCH 25.0 pg (25.0-35.0) 05/28/16 06:02 MCHC 28.5 g/dL (31.0-37.0) L 05/28/16 06:02 RDW 18.7 % (11.5-15.5) H 05/28/16 06:02 Plt Count 193 k/uL (150-450) 05/28/16 06:02 Neutrophils % 82 % 05/28/16 06:02 Lymphocytes % 11 % 05/28/16 06:02 Monocytes % 5 % 05/28/16 06:02 Eosinophils % 0 % 05/28/16 06:02 Basophils % 0 % 05/28/16 06:02 Neutrophils # 8.8 k/uL (1.3-7.7) H 05/28/16 06:02 Lymphocytes # 1.2 k/uL (1.0-4.8) 05/28/16 06:02 Monocytes # 0.5 k/uL (0-1.0) 05/28/16 06:02 Eosinophils # 0.0 k/uL (0-0.7) 05/28/16 06:02 Basophils # 0.0 k/uL (0-0.2) 05/28/16 06:02 Hypochromasia Marked 05/28/16 06:02 Poikilocytosis Slight 05/28/16 06:02 Anisocytosis Slight 05/28/16 06:02 PT 55.6 sec (9.0-12.0) H 05/29/16 06:00 INR 5.5 (<1.1) H* 05/29/16 06:00 APTT 27.1 sec (22.0-30.0) 05/19/16 10:05 Sodium 140 mmol/L (137-145) 05/29/16 06:00 Potassium 3.6 mmol/L (3.5-5.1) 05/29/16 06:00 Chloride 95 mmol/L (98-107) L 05/29/16 06:00 Carbon Dioxide 39 mmol/L (22-30) H 05/29/16 06:00 Anion Gap 6 mmol/L 05/29/16 06:00 BUN 27 mg/dL (7-17) H 05/29/16 06:00 Creatinine 0.65 mg/dL (0.52-1.04) 05/29/16 06:00 Est GFR (MDRD) Af Amer >60 (>60 ml/min/1.73 sqM) 05/29/16 06:00 Est GFR (MDRD) Non-Af >60 (>60 ml/min/1.73 sqM) 05/29/16 06:00 Glucose 192 mg/dL (74-99) H 05/29/16 06:00 POC Glucose (mg/dL) 207 mg/dL (75-99) H 05/29/16 16:37 POC Glu [employer] Marcial 05/29/16 16:[address] Glu mg/dL 166 mg/dL 05/23/16 07:03 Hemoglobin A1c 7.4 % (4.2-6.1) H 05/23/16 07:03 Plasma Lactic Acid Good 1.4 mmol/L (0.7-2.0) 05/19/16 13:51 Calcium 7.8 mg/dL (8.4-10.2) L 05/29/16 06:00 Phosphorus 3.4 mg/dL (2.5-4.5) 05/29/16 06:00 Magnesium 1.9 mg/dL (1.6-2.3) 05/29/16 06:00 Total Bilirubin 0.2 mg/dL (0.2-1.3) 05/29/16 06:00 AST 18 U/L (14-36) 05/29/16 06:00 ALT 34 U/L (9-52) 05/29/16 06:00 Alkaline Phosphatase 58 U/L (38-126) 05/29/16 06:00 Total Creatine Kinase <20 U/L (30-135) L 05/19/16 10:05 CK-MB (CK-2) <0.2 ng/mL (0.0-2.4) 05/19/16 10:05 CK-MB (CK-2) Rel Index 05/19/16 10:05 Troponin I 0.071 ng/mL (0.000-0.034) H* 05/19/16 10:05 NT-Pro-B Natriuret Pep 3920 pg/mL 05/20/16 09:00 Total Protein 5.2 g/dL (6.3-8.2) L 05/29/16 06:00 Albumin 2.4 g/dL (3.5-5.0) L 05/29/16 06:00 TSH 2.550 mIU/L (0.465-4.680) 05/21/16 06:30 Free T4 0.76 ng/dL (0.78-2.19) L 05/21/16 06:30 Urine Color Light Yellow 05/19/16 10:25 Urine Appearance Clear (Clear) 05/19/16 10:25 Urine pH 6.5 (5.0-8.0) 05/19/16 10:25 Ur Specific [place] 1.011 (1.001-1.035) 05/19/16 10:25 Urine Protein Trace (Negative) H 05/19/16 10:25 Urine Glucose (UA) Negative (Negative) 05/19/16 10:25 Urine Ketones Negative (Negative) 05/19/16 10:25 Urine Blood Negative (Negative) 05/19/16 10:25 Urine Nitrite Negative (Negative) 05/19/16 10:25 Urine Bilirubin Negative (Negative) 05/19/16 10:25 Urine Urobilinogen <2.0 mg/dL (<2.0) 05/19/16 10:25 Ur Leukocyte Esterase Negative (Negative) 05/19/16 10:25 Vancomycin Trough 26.1 ug/mL 05/28/16 22:24 Influenza Type A RNA Not Detected (Not Detectd) 05/19/16 10:05 Influenza Type B (PCR) Not Detected (Not Detectd) 05/19/16 10:05 Blood Type A Positive 05/23/16 09:33 Blood Type Recheck No 05/23/16 09:33 Antibody Screen NEGATIVE 05/23/16 09:33 Crossmatch See Detail 05/23/16 09:33 Spec Expiration Date 05/26/2016 - 2333 05/23/16 09:33 Microbiology 05/21/16 12:55 Blood Blood Culture - Final No Growth after 144 hours 05/19/16 10:05 Blood Blood Culture - Final No Growth after 144 hours MRSA of sputum Assessment and Plan (1) MRSA pneumonia Narrative/Plan: 76-year-old female who has multiple medical troubles occluding underlying significant cardiovascular disease, chronic pulmonary disease with oxygen dependence as well as sleep apnea presents to Hospital profoundly ill from the extended care facility. Apparently hospitalized for she had difficulties with gastrointestinal bleeding. During this stay she's had difficulties with congestive heart failure, exacerbation of COPD, extensive thrombus to the left leg requiring thrombectomy and endarterectomy. Patient relates is feeling just slightly better today. Review of the previous culture reveals evidence she does have evidence of the sputum culture with evidence of MRSA present. It does appear to be levofloxacin resistant. She was initiated vancomycin therapy. Is now having a nice improvement within the last day. Vancomycin therapy will continue. Likely would treat her for the next 14 days. We'll request her vascular surgeon for IV access, or PICC line if he agrees. We'll monitor response to current antibiotic therapy. We'll likely need to complete a course of this time of her transfer back to [facility]. Does not appear to have any acute infection to the left leg after the above interventions. She does not have any significant urinary symptoms. Status: Acute (2) Chronic a-fib Status: Acute (3) Acute blood loss anemia Status: Acute (4) Leukocytosis Status: Acute
[2016-05-29 20:32] LABS: Glucose,Whole Blood 279 mg/dL (75-99)
[2016-05-29] MEDS: PRAVASTATIN SODIUM 20 MG TAB PO SCH (21:56)
[2016-05-29] MEDS: LOSARTAN 50 MG TAB PO SCH (21:56)
[2016-05-29] MEDS: MONTELUKAST 10 MG TAB PO SCH (21:57)
[2016-05-30] MEDS: HYDROcodone/APAP 10-325MG 1 EACH TAB PO PRN ×3 (00:04→17:35)
[2016-05-30 05:44] LABS: Glucose,Whole Blood 214 mg/dL (75-99)
[2016-05-30] MEDS: INSULIN LISPRO (humaLOG) 300 UNIT/3 ML VIAL SQ SCH ×4 (06:36→21:41)
[2016-05-30] MEDS: PANTOPRAZOLE 40 MG TABLET PO SCH (06:36)
[2016-05-30 06:55] LABS: INR 2.3 (<1.1); Prothrombin Time 22.6 sec (9.0-12.0)
[2016-05-30 07:17] LABS: ALT 36 U/L (9-52); AST 17 U/L (14-36); Alkaline Phosphatase 60 U/L (38-126); Anion Gap 8 mmol/L; Blood Urea Nitrogen 29 mg/dL (7-17); Calcium 8.2 mg/dL (8.4-10.2); Carbon Dioxide 33 mmol/L (22-30); Chloride 97 mmol/L (98-107); Glucose 194 mg/dL (74-99); Magnesium 1.8 mg/dL (1.6-2.3); Non-African American GFR(MDRD) >60 (>60 ml/min/1.73 sqM); Phosphorous 3.5 mg/dL (2.5-4.5); Potassium 3.9 mmol/L (3.5-5.1); Sodium 138 mmol/L (137-145); Total Bilirubin 0.4 mg/dL (0.2-1.3); Total Protein 5.5 g/dL (6.3-8.2)
[2016-05-30] MEDS: BUDESONIDE 1 MG/2 ML NEBU INHALATION SCH ×2 (08:38→21:21)
[2016-05-30] MEDS: IPRATROPIUM-ALBUTEROL 3 ML NEB INHALATION SCH ×4 (08:38→21:21)
[2016-05-30] MEDS: VANCOMYCIN 1,750 MG in SODIUM CHLORIDE 0.9% 250 ML IVPB SCH (08:41)
[2016-05-30] MEDS: DOCUSATE 100 MG CAP PO SCH ×2 (08:42→21:40)
[2016-05-30] MEDS: FUROSEMIDE 10 MG/ML 4 ML VIAL IV SCH (08:42)
[2016-05-30] MEDS: ALPRAZolam 0.25 MG TAB PO SCH ×2 (08:42→21:40)
[2016-05-30] MEDS: INSULIN DETEMIR 100 UNIT/ML 10 ML VIAL SQ SCH ×2 (08:43→21:42)
[2016-05-30] MEDS: predniSONE 20 MG TAB PO SCH (08:43)
[2016-05-30] MEDS: METOPROLOL SUCCINATE (ER) 100 MG TAB.ER.24H PO SCH ×2 (08:43→21:41)
[2016-05-30] MEDS: guaiFENesin 600 MG TABLET.ER PO SCH ×2 (08:43→21:40)
--- NOTE | 2016-05-30 09:02 | P.PN ---
Progress Note - Text called for drainage from the left groin incision that appeared purulent AF VSS left groin; serous fluid from wound depths with some necrotic fat noted; no reuben purulence; no erythema around incision, no evidence of abscess formation wound explored and is in areas approximately 5cm depth; impression/plan 1. seroma left groin incision that has spontaneously drained after removal of sutures on POD # 21 culture pending pack with 1 inch iodoform gauze TID for now continue IV antibiotics await culture results
[2016-05-30 11:50] LABS: Glucose,Whole Blood 152 mg/dL (75-99)
[2016-05-30] MEDS ORDERED: PHYTONADIONE ORAL 5 MG/5 ML ORAL.SYRG PO STA (12:33)
--- NOTE | 2016-05-30 14:12 | P.PN ---
Subjective Patient was seen and evaluated today. She denies any significant shortness of breath. She is scheduled for PICC line placement in the morning. Objective - Vital Signs Vital signs: Vital Signs Temp 97.1 F L 05/30/16 08:00 Pulse 80 05/30/16 12:28 Resp 18 05/30/16 12:00 BP 137/66 05/30/16 12:00 Pulse Ox 95 05/30/16 12:00 Intake & Output 05/29/16 05/30/16 05/30/16 18:59 06:59 18:59 Intake Total 1202 330 60 Output Total 300 1000 350 Balance 902 -670 -290 Weight 114.5 kg Intake: IV 250 330 0.9 NS @ 10cc/hr 80 Vancomycin 1,750 mg In 250 250 Sodium Chloride 0.9% 250 ml @ 125 mls/hr IVPB Q12H [facility] Rx#:[id number] Oral 952 60 Output: Urine 300 1000 350 Other: Voiding Method Bedpan Bedpan # Voids 1 - Exam General: The patient is awake and alert, in no distress Eye: there is normal conjunctiva bilaterally. Neck: The neck is supple, there is no JVD. Cardiovascular: Normal S1-S2, no S3-S4, no murmurs. Respiratory: Lungs with scattered bibasilar crackles Gastrointestinal: Abdomen is soft, nontender Musculoskeletal: There is no pedal edema. Neurological:. Speech is normal. Skin: Skin is warm and dry - Labs CBC & Chem 7: 05/28/16 06:02 05/30/16 06:36 Labs: Abnormal Lab Results - Last 24 Hours (Table) 05/29/16 05/29/16 05/30/16 Range/Units 16:37 20:31 05:42 PT (9.0-12.0) sec Chloride (98-107) mmol/L Carbon Dioxide (22-30) mmol/L BUN (7-17) mg/dL Glucose (74-99) mg/dL POC Glucose (mg/dL) 207 H 279 H 214 H (75-99) mg/dL Calcium (8.4-10.2) mg/dL Total Protein (6.3-8.2) g/dL Albumin (3.5-5.0) g/dL 05/30/16 05/30/16 05/30/16 Range/Units 06:36 06:36 11:49 PT 22.6 H (9.0-12.0) sec Chloride 97 L (98-107) mmol/L Carbon Dioxide 33 H (22-30) mmol/L BUN 29 H (7-17) mg/dL Glucose 194 H (74-99) mg/dL POC Glucose (mg/dL) 152 H (75-99) mg/dL Calcium 8.2 L (8.4-10.2) mg/dL Total Protein 5.5 L (6.3-8.2) g/dL Albumin 2.6 L (3.5-5.0) g/dL Microbiology - Last 24 Hours (Table) 05/30/16 00:30 Wound Culture - Preliminary Groin 05/30/16 00:30 Anaerobic Culture - Preliminary Groin Assessment and Plan Plan: 1. Pneumonia with sepsis: Chest x-ray showing cardiomegaly with peripheral vascular congestion and patchy density in the right lower lobe. Evaluated by Dr. Wild, antibiotic were switched to IV vancomycin 2. Acute on chronic systolic CHF exacerbation. Most recent echo shows an EF of 40-45%, Chest x-ray showing peripheral vascular congestion. 3. Cardiac pauses. Continue with telemetry monitoring. Cardiology following 4. Insulin-dependent diabetes mellitus, A1c is 7.2 continue was Levemir and NovoLog 5. Elevated troponin with no chest pain. Cardiology following 6. Acute anemia secondary to chronic blood loss and suspected lower GI bleed. Was unable to have a colonoscopy during last admission due to multiple complications. She had a EGD last month. 7. Chronic atrial fibrillation maintained on Coumadin for anticoagulation. Monitor PT/INRs closely 8. History of COPD: Continue with nebulizer treatments. Today, I reviewed her medication list and lab work results. We will give an additional 2.5 mg of vitamin K orally and repeat INR in the morning. Plan for PICC line placement on Tuesday. Return to ECF possibly Tuesday to finish 10 days course of IV antibiotic.
--- NOTE | 2016-05-30 14:26 | PN ---
Maria De Jesus is a 76-year-old female, seen, evaluated, examined. Patient is on currently 5 liters oxygen. She is still slightly short of breath, but severity has improved, though. Has independent cough, which is dry and nonproductive. Her last set of vitals include blood pressure 160/70, respiratory rate 20, pulse 70, temperature 98, saturation 97% on 5 liters. Patient has been using BiPAP each night and p.r.n. during the day as well. She feels more comfortable with that with better quality of sleep, more awake and alert during the day. Her current medications reviewed and include Tylenol with codeine 4 times a day, DuoNeb updraft 4 times a day, also on Xanax as needed, Pulmicort 2 times a day, Colace, Lasix 40 mg IV q.12, guaifenesin, sliding scale insulin, Levemir, Losartan, Toprol, K-mag-phos replacement protocol, pravastatin and vancomycin. Patient is also on Singulair. Culture results and reports are reviewed. Blood cultures x2. No growth so far. Patient has been noted to have some purulent discharge from the left groin incision. Seroma has been seen and drained. Vascular Surgery has been following this patient closely. Last chest x-ray performed 05/27/2016 has been reviewed as well with patchy bilateral infiltrate. On examination, HEENT: Otherwise unremarkable. NECK: Supple without lymphadenopathy, jugular venous distention or carotid bruit. LUNGS: Bilateral good air entry. A few crackles at bases. HEART: Regular rate and rhythm. S1 and S2 audible. ABDOMEN: Soft. No rebound or rigidity. EXTREMITIES: +1 peripheral pulses. NEUROLOGICAL EXAMINATION: Otherwise, awake and alert. IMPRESSION: 1. Methicillin-resistant Staphylococcus aureus pneumonia. 2. Purulent tracheobronchitis. 3. Severe chronic obstructive pulmonary disease. 4. Acute on chronic hypoxic hypercapnic respiratory failure with component of obesity hypoventilation. 5. Peripheral vascular disease, postop for left endarterectomy for thrombosis. 6. Diabetes mellitus, severe anemia and chronic atrial fibrillation. PLAN: As above. Continue antibiotics, supportive care. Increase activity as tolerated. Continue deep breathing and incentive spirometry. Continue empiric antibiotics. The patient has been asked to continue using breathing treatments. Will follow.
[2016-05-30] MEDS: FUROSEMIDE 40 MG TAB PO SCH (15:56)
[2016-05-30 16:39] LABS: Glucose,Whole Blood 280 mg/dL (75-99)
[2016-05-30 21:07] LABS: Glucose,Whole Blood 429 mg/dL (75-99)
[2016-05-30 21:18] LABS: Glucose,Whole Blood 373 mg/dL (75-99)
[2016-05-30 21:23] LABS: Glucose,Whole Blood 368 mg/dL (75-99)
[2016-05-30] MEDS: PRAVASTATIN SODIUM 20 MG TAB PO SCH (21:41)
[2016-05-30] MEDS: MONTELUKAST 10 MG TAB PO SCH (21:41)
[2016-05-30] MEDS: LOSARTAN 50 MG TAB PO SCH (21:41)
[2016-05-31] MEDS: VANCOMYCIN 1,750 MG in SODIUM CHLORIDE 0.9% 250 ML IVPB SCH ×2 (00:26→16:57)
[2016-05-31] MEDS: HYDROcodone/APAP 10-325MG 1 EACH TAB PO PRN ×3 (03:39→16:59)
[2016-05-31 06:21] LABS: Glucose,Whole Blood 164 mg/dL (75-99)
[2016-05-31 06:40] LABS: INR 1.4 (<1.1); Prothrombin Time 13.4 sec (9.0-12.0)
[2016-05-31] MEDS: PANTOPRAZOLE 40 MG TABLET PO SCH (06:41)
[2016-05-31] MEDS: INSULIN LISPRO (humaLOG) 300 UNIT/3 ML VIAL SQ SCH ×4 (06:41→22:02)
[2016-05-31] MEDS: IPRATROPIUM-ALBUTEROL 3 ML NEB INHALATION SCH ×4 (07:01→20:33)
[2016-05-31] MEDS: BUDESONIDE 1 MG/2 ML NEBU INHALATION SCH ×2 (07:01→20:33)
[2016-05-31 07:02] LABS: ALT 37 U/L (9-52); AST 20 U/L (14-36); Alkaline Phosphatase 55 U/L (38-126); Anion Gap 8 mmol/L; Blood Urea Nitrogen 31 mg/dL (7-17); Calcium 8.3 mg/dL (8.4-10.2); Carbon Dioxide 34 mmol/L (22-30); Chloride 98 mmol/L (98-107); Magnesium 1.8 mg/dL (1.6-2.3); Non-African American GFR(MDRD) >60 (>60 ml/min/1.73 sqM); Phosphorous 3.3 mg/dL (2.5-4.5); Potassium 3.9 mmol/L (3.5-5.1); Sodium 140 mmol/L (137-145); Total Bilirubin 0.3 mg/dL (0.2-1.3); Total Protein 5.7 g/dL (6.3-8.2)
[2016-05-31 07:26] LABS: Glucose 163 mg/dL (74-99)
[2016-05-31] MEDS: METOPROLOL SUCCINATE (ER) 100 MG TAB.ER.24H PO SCH ×2 (08:53→22:02)
[2016-05-31] MEDS: ALPRAZolam 0.25 MG TAB PO SCH ×2 (08:53→22:13)
[2016-05-31] MEDS: FUROSEMIDE 40 MG TAB PO SCH ×2 (08:54→15:47)
[2016-05-31] MEDS: guaiFENesin 600 MG TABLET.ER PO SCH ×2 (08:54→22:02)
[2016-05-31] MEDS: DOCUSATE 100 MG CAP PO SCH ×2 (08:54→22:02)
[2016-05-31] MEDS: predniSONE 20 MG TAB PO SCH (08:55)
[2016-05-31] MEDS: INSULIN DETEMIR 100 UNIT/ML 10 ML VIAL SQ SCH ×2 (09:02→22:13)
[2016-05-31 10:15] LABS: Anisocytosis Slight; CH 24.5; HCT 31.2 % (34.0-46.0); HDW 3.83; HGB 9.3 gm/dL (11.4-16.0); Hypochromasia Marked; MCH 25.9 pg (25.0-35.0); MCV 86.7 fL (80.0-100.0); Mean Platelet Volume 11.9; Poikilocytosis Slight; RDW 18.6 % (11.5-15.5); WBC 11.2 k/uL (3.8-10.6); WBC (Perox) 12.82
[2016-05-31 10:19] LABS: CHCM 28.2; MCHC 29.8 g/dL (31.0-37.0)
--- NOTE | 2016-05-31 10:50 | P.PN ---
Subjective Patient being treated for pneumonia with sepsis and CHF exacerbation. Symptoms have shown improvement. Patient being treated for MRSA pneumonia. Patient has a previous sputum sample growing MRSA. Also had some drainage from the left groin incision site. Followed by basilar surgery. Sutures have been removed. Awaiting wound culture results. Patient scheduled for PICC line placement today. Patient had an IV in the left arm that went subcu. The area around the old IV site is very firm and tender with palpation. She has significant bruising. Doppler ultrasound has been ordered of the left arm. Last BM 2 days ago. No difficulty with urinating. Objective - Vital Signs Vital signs: Vital Signs Temp 96.9 F L 05/31/16 09:14 Pulse 80 05/31/16 09:14 Resp 22 05/31/16 09:14 BP 136/63 05/31/16 09:14 Pulse Ox 93 L 05/31/16 09:14 Intake & Output 05/30/16 05/31/16 05/31/16 18:59 06:59 18:59 Intake Total 340 Output Total 350 450 200 Balance -10 -450 -200 Weight 113.5 kg Intake: Oral 340 Output: Urine 350 450 200 Other: Voiding Method Bedpan # Voids 1 1 - Exam Head normocephalic Neck supple Lungs clear to auscultation bilaterally no wheezing or crackles Heart regular rate and rhythm S1-S2, no rub or gallop Abdomen is soft nontender nondistended positive bowel sounds no hepatosplenomegaly Extremities no edema Neuro alert and orientated to 3 - Labs CBC & Chem 7: 05/31/16 06:08 05/31/16 06:08 Labs: Abnormal Lab Results - Last 24 Hours (Table) 05/30/16 05/30/16 05/30/16 Range/Units 11:49 16:38 21:05 WBC (3.8-10.6) k/uL RBC (3.80-5.40) m/uL Hgb (11.4-16.0) gm/dL Hct (34.0-46.0) % MCHC (31.0-37.0) g/dL RDW (11.5-15.5) % Plt Count (150-450) k/uL PT (9.0-12.0) sec Carbon Dioxide (22-30) mmol/L BUN (7-17) mg/dL Glucose (74-99) mg/dL POC Glucose (mg/dL) 152 H 280 H 429 H (75-99) mg/dL Calcium (8.4-10.2) mg/dL Total Protein (6.3-8.2) g/dL Albumin (3.5-5.0) g/dL 05/30/16 05/30/16 05/31/16 Range/Units 21:17 21:21 06:08 WBC (3.8-10.6) k/uL RBC (3.80-5.40) m/uL Hgb (11.4-16.0) gm/dL Hct (34.0-46.0) % MCHC (31.0-37.0) g/dL RDW (11.5-15.5) % Plt Count (150-450) k/uL PT (9.0-12.0) sec Carbon Dioxide 34 H (22-30) mmol/L BUN 31 H (7-17) mg/dL Glucose 163 H (74-99) mg/dL POC Glucose (mg/dL) 373 H 368 H (75-99) mg/dL Calcium 8.3 L (8.4-10.2) mg/dL Total Protein 5.7 L (6.3-8.2) g/dL Albumin 2.6 L (3.5-5.0) g/dL 05/31/16 05/31/16 05/31/16 Range/Units 06:08 06:16 06:19 WBC 11.2 H (3.8-10.6) k/uL RBC 3.60 L (3.80-5.40) m/uL Hgb 9.3 L (11.4-16.0) gm/dL Hct 31.2 L (34.0-46.0) % MCHC 29.8 L (31.0-37.0) g/dL RDW 18.6 H (11.5-15.5) % Plt Count 120 L (150-450) k/uL PT 13.4 H (9.0-12.0) sec Carbon Dioxide (22-30) mmol/L BUN (7-17) mg/dL Glucose (74-99) mg/dL POC Glucose (mg/dL) 164 H (75-99) mg/dL Calcium (8.4-10.2) mg/dL Total Protein (6.3-8.2) g/dL Albumin (3.5-5.0) g/dL Microbiology - Last 24 Hours (Table) 05/30/16 00:30 Gram Stain - Preliminary Groin Wound Culture - Preliminary Presumptive MRSA 05/30/16 01:40 Gram Stain - Preliminary Sputum 05/30/16 00:30 Anaerobic Culture - Preliminary Groin Assessment and Plan Plan: 1. MRSA Pneumonia with sepsis: Chest x-ray showing cardiomegaly with peripheral vascular congestion and patchy density in the right lower lobe. Also elevated temp of 102, white count 16.4 and lactic acid of 2.1. Patient followed by infectious disease and pulmonary. Continue IV vancomycin for 14 days per infectious disease. Patient receiving a PICC line placement today 2. Acute on chronic systolic CHF exacerbation. Most recent echo shows an EF of 40-45%. BNP elevated in the 3000's. Chest x-ray showing peripheral vascular congestion. Evaluated by cardiology service. Continue Lasix 40 mg by mouth twice a day 3. Cardiac causes. Continue with telemetry monitoring. Evaluated by cardiology and medications adjusted 4. Possible phlebitis of the left arm: Left arm pain and swelling bruising and firmness at old IV site. Keep arm elevated. Place heat pad to left arm. Also check Doppler ultrasound 5. Elevated troponin with no chest pain. Evaluated by cardiology 6. Acute anemia secondary to chronic blood loss and suspected lower GI bleed. Hemoglobin is 7.9. Was unable to have a colonoscopy during last admission due to multiple complications. She had a EGD last month at [facility] that was unremarkable. We'll continue to monitor hemoglobin. 7. Chronic atrial fibrillation maintained on Coumadin for anticoagulation. Coumadin held and patient given vitamin K yesterday to proceed with PICC line 8. History of COPD: Continue with nebulizer treatments. 9. Diabetes mellitus insulin-dependent: Resume her Levemir and NovoLog. Continue sliding scale coverage. Hemoglobin A1c of 7.2 GI prophylaxis Protonix and DVT prophylaxis Coumadin Awaiting cultures to finalize. Anticipate discharge back to [facility] possibly tomorrow
[2016-05-31 11:45] LABS: Add Differential Manual Differential
--- NOTE | 2016-05-31 11:45 | P.PN ---
Progress Note - Text 76 female, patient had a left femoral and popliteal and infrapopliteal thrombectomy and patch angioplasty of the left common femoral artery for ischemic left leg about the 3 weeks ago has a history of pneumonia, history of COPD, history of congestive heart failure, the left groin sutures removed and there is some seroma noted in the left groin area and there she has symptoms since his drainage culture has been done which showed percent of MRSA patient is on Vanco under care of Dr. Wild there is no sign of pusand of redness noted today we have changed the dressing there was some fibrinous material which was removed and we did the change of dressing and her wound was packed with gauze patient is extremely short of breath because of her COPD and congestive heart failure we will hold the discharge and I'll continue with the local wound care patient needs change of dressing twice a day and continue with IV antibiotic I'll discuss with Dr. Mohan Wild the pulses are present foot is viable patient has some foot drop
[2016-05-31 11:53] LABS: Nucleated Red Blood Cells 0 /100 WBC (0-0); Total Cells Counted 200
[2016-05-31 11:55] LABS: Manual Review Performed
[2016-05-31 12:30] LABS: Glucose,Whole Blood 252 mg/dL (75-99)
--- NOTE | 2016-05-31 12:41 | IR ---
PICC LINE PLACEMENT: HISTORY: Infection requiring long-term antibiotic therapy PROCEDURE: Ultrasound and fluoroscopic guidance of PICC line placement. COMPLICATIONS: None ANESTHESIA: 1. 1% Lidocaine locally. FINDINGS/TECHNIQUE: The procedure was explained to the patient. The risks, complications, benefits and alternatives were discussed and any questions were answered. Informed consent was obtained. The patient was placed supine on the fluoroscopic table and prepped and draped in the usual sterile [facility] ion. Utilizing a 21 gauge needle and sonographic and fluoroscopic guidance, access in the vein was achieved and there is placement of a 0.018 guidewire. The vein is patent. A 4-F sheath was placed o ari the guidewire. The guidewire and dilator were removed and a 4-F. PICC line was placed through th e sheath with the tip at the level of the SVC. The sheath was removed, the catheter was flushed and sutured into position. The patient was stable throughout the procedure and remained stable upon disc harge from the Department of Radiology. The vein puncture was patent under ultrasound. A yeager scale image was obtained to document patency of the vein punctured. All elements of the maximal barrier technique were utilized. FLUOROSCOPY TIME: 0.2 minute IMPRESSION: Successful PICC line placement under ultrasound and fluoroscopic guidance.
[2016-05-31] MEDS ORDERED: ENOXAPARIN 80 MG/0.8 ML SYRINGE SQ SCH (13:00)
--- NOTE | 2016-05-31 13:21 | US ---
EXAMINATION TYPE: US venous doppler duplex UE LT DATE OF EXAM: 05/31/2016 1:11 PM COMPARISON: NONE CLINICAL HISTORY: left arm pain. Hematoma. Bruising left lower arm, recent IV in that area that was removed yesterday. PICC line placement left upper arm today Left Arm: No evidence of DVT as visualized. PICC line visualized within Subclavian vein and Basilic v ein. Superficial thrombus noted left lower arm within area of bruising IMPRESSION: No diagnostic evidence of DVT, however, low the level the elbow within the superficial venous system there is evidence of superficial venous thrombosis.
[2016-05-31] MEDS ORDERED: VANCOMYCIN TROUGH DUE 1 EACH MISC MISCELLANE ONE (15:00)
[2016-05-31] MEDS: ENOXAPARIN 100 MG/ML SYRINGE SQ SCH ×2 (15:46→22:01)
[2016-05-31 16:34] LABS: Glucose,Whole Blood 301 mg/dL (75-99)
[2016-05-31] MEDS ORDERED: WARFARIN 5 MG TAB PO ONE (18:00)
--- NOTE | 2016-05-31 18:22 | PN ---
This patient is seen, evaluated, examined. She is a 76-year-old female with MRSA pneumonia. Patient is being planned for PICC line today. She is breathing comfortably but continues to require a significant amount of oxygen. Hemodynamic status is stable. On 4 L, saturations are 93%. Blood pressure 136/63, respiratory rate 22, pulse 72, temperature 97. HEENT: Unremarkable. NECK: Supple. LUNGS: Good air entry bilaterally without any significant rales, rhonchi or rub. HEART: Regular rate, rhythm. S1, S2 audible. ABDOMEN: Soft. No rebound or rigidity. EXTREMITIES: Plus one peripheral pulses. NEUROLOGICAL EXAMINATION: Otherwise awake and alert. Patient's medications are reviewed. Laboratory data reviewed as well. PT and INR are 13.4 and 1.4. BUN and creatinine are 31 and 0.6. Sodium is 140. IMPRESSION: 1. Methicillin-resistant Staphylococcus aureus pneumonia. 2. Acute on chronic hypoxic respiratory failure. 3. Obesity hypoventilation. 4. Generalized weakness, medical debility, protein-calorie malnourishment. 5. Peripheral arterial disease. PLAN AND RECOMMENDATIONS: As above. Would recommend continued BiPAP each night and p.r.n. during the day. Continue IV vancomycin. Proceed with PICC line placement. Will repeat chest x-ray tomorrow. If she continues to have significant issues, she may be a candidate for bronchoscopy for pulmonary toilet and suctioning. Will follow.
[2016-05-31 21:11] LABS: Glucose,Whole Blood 346 mg/dL (75-99)
[2016-05-31] MEDS: PRAVASTATIN SODIUM 20 MG TAB PO SCH (22:02)
[2016-05-31] MEDS: MONTELUKAST 10 MG TAB PO SCH (22:02)
[2016-05-31] MEDS: LOSARTAN 50 MG TAB PO SCH (22:27)
[2016-06-01 06:10] LABS: Glucose,Whole Blood 158 mg/dL (75-99)
[2016-06-01] MEDS: PANTOPRAZOLE 40 MG TABLET PO SCH (07:04)
[2016-06-01] MEDS: INSULIN LISPRO (humaLOG) 300 UNIT/3 ML VIAL SQ SCH ×4 (07:04→21:39)
[2016-06-01 08:15] LABS: INR 1.4 (<1.1); Prothrombin Time 14.1 sec (9.0-12.0)
[2016-06-01 08:16] LABS: ALT 35 U/L (9-52); AST 14 U/L (14-36); Alkaline Phosphatase 58 U/L (38-126); Anion Gap 7 mmol/L; Blood Urea Nitrogen 27 mg/dL (7-17); Calcium 8.2 mg/dL (8.4-10.2); Carbon Dioxide 36 mmol/L (22-30); Chloride 98 mmol/L (98-107); Glucose 121 mg/dL (74-99); Magnesium 1.8 mg/dL (1.6-2.3); Non-African American GFR(MDRD) >60 (>60 ml/min/1.73 sqM); Phosphorous 3.3 mg/dL (2.5-4.5); Potassium 3.7 mmol/L (3.5-5.1); Sodium 141 mmol/L (137-145); Total Bilirubin 0.3 mg/dL (0.2-1.3); Total Protein 5.6 g/dL (6.3-8.2)
[2016-06-01 08:20] LABS: Anisocytosis Slight; Basophils % (A) 0 %; CH 24.6; Eosinophils % (A) 0 %; HCT 29.9 % (34.0-46.0); HGB 8.9 gm/dL (11.4-16.0); Hypochromasia Marked; Luc # (Auto) 0.15; Luc % (Auto) 1; Lymphocytes # (A) 1.9 k/uL (1.0-4.8); Lymphocytes % (A) 15 %; MCH 26.1 pg (25.0-35.0); MCHC 29.9 g/dL (31.0-37.0); MCV 87.4 fL (80.0-100.0); Monocytes # (A) 0.7 k/uL (0-1.0); Monocytes % (A) 5 %; Neutrophils # (A) 10.4 k/uL (1.3-7.7); Neutrophils % (A) 79 %; Poikilocytosis Slight; RBC 3.42 m/uL (3.80-5.40); RDW 18.5 % (11.5-15.5); WBC 13.2 k/uL (3.8-10.6); WBC (Perox) 14.04
[2016-06-01] MEDS: IPRATROPIUM-ALBUTEROL 3 ML NEB INHALATION SCH ×4 (08:27→19:46)
[2016-06-01] MEDS: BUDESONIDE 1 MG/2 ML NEBU INHALATION SCH ×2 (08:27→19:46)
[2016-06-01] MEDS: FUROSEMIDE 40 MG TAB PO SCH ×2 (08:36→15:40)
[2016-06-01] MEDS: HYDROcodone/APAP 10-325MG 1 EACH TAB PO PRN ×3 (08:36→16:31)
[2016-06-01] MEDS: DOCUSATE 100 MG CAP PO SCH ×2 (08:36→21:33)
[2016-06-01] MEDS: INSULIN DETEMIR 100 UNIT/ML 10 ML VIAL SQ SCH ×2 (08:36→21:39)
[2016-06-01] MEDS: ALPRAZolam 0.25 MG TAB PO SCH ×3 (08:36→23:10)
[2016-06-01] MEDS: ENOXAPARIN 100 MG/ML SYRINGE SQ SCH ×2 (08:36→21:32)
[2016-06-01] MEDS: guaiFENesin 600 MG TABLET.ER PO SCH ×2 (08:37→21:33)
[2016-06-01] MEDS: predniSONE 20 MG TAB PO SCH (08:37)
[2016-06-01] MEDS: METOPROLOL SUCCINATE (ER) 100 MG TAB.ER.24H PO SCH ×2 (08:37→21:34)
--- NOTE | 2016-06-01 09:09 | PN ---
Ms. Bui is the 76-year-old woman who presented to the hospital 12 days ago with evidence of significant respiratory failure. She also had anemia and elevated troponins. She is now feeling considerably better. She is being treated for MRSA pneumonia and respiratory status is improved. She has been able to eat her complete dinner with no difficulties. She is much less short of breath, has increasing energy and has no other new acute complaints. However, the patient did have the significant clot to the left leg and did undergo intervention and a patch angioplasty. The left site is now opened a bit and she is having some copious serous drainage. She has been seen by Vascular Surgery and dressings are being utilized and the site is being packed. There is no purulence at this point in time, but apparently a culture showing evidence of MRSA as she has in her sputum. The exam reveals to be in no acute distress. She has no significant fever and please see the nursing notes for temperature and vital signs. She is nonicteric without thrush. The lungs have coarse crackles and wheezing but has improved air exchange. No reuben bronchial sounds at this time. The heart is regular with an audible S1, S2. No S3, loud S4. No distinct murmur, click or rub. PMI is nondisplaced without heave or thrill. The abdomen is obese, but soft, nontender, without palpable masses or organomegaly. No guarding, ( ) are intact. Lower extremities show evidence of the chronic edema. The left leg shows evidence of the prior intervention at the abdominal fold with a large amount of pannus. There is evidence of the opening and dehiscences that has occurred and large amounts of serous material is draining. It is not purulent nor is it malodorous. The rest of the limb is showing improvement and the edema is improved. Right leg without acute changes but edema. Skin is with dryness, but no new rashes and neurologically, she is much more bright, awake, alert, interactive, and has no new acute gross focal sensory or motor deficits. The laboratories are reviewed and noted. Wound culture shows evidence of MRSA as has her sputum, consequently at this point in time she will have PICC line that has been placed, which hopefully will be very helpful for her IV access and we will plan at least 14 more days of intravenous antibiotic therapy for the treatment of MRSA and pneumonia as well as for the seroma that seems to be secondarily infected to the left thigh area where the patch angioplasty occurred. Although, it does not appear to have any significant depth at the artery. A wound VAC at this point in time, has been discussed with the vascular surgeon. This will be held with his dressings for now, until we have further data. We will monitor.
[2016-06-01] MEDS: VANCOMYCIN 1,750 MG in SODIUM CHLORIDE 0.9% 250 ML IVPB SCH (10:23)
--- NOTE | 2016-06-01 10:59 | XR ---
EXAMINATION TYPE: XR chest 1V portable DATE OF EXAM: 06/01/2016 6:46 AM COMPARISON: Prior chest x-ray May 2016 HISTORY: Right lower lobe pneumonia TECHNIQUE: Single frontal view of the chest is obtained. FINDINGS: Patient is rotated. There are overlying cardiac leads. No interval change is evident. IMPRESSION: Similar findings to prior exam. Correlate for lower lobe pneumonia. Follow-up PA and lat eral chest x-ray recommended.
--- NOTE | 2016-06-01 11:04 | P.PN ---
Subjective This is a 76-year-old female patient who is being evaluated and examined today on the sixth floor. This patient is well-known to our service. This patient recently was hospitalized in April with a left leg ischemia status post thrombectomy, pneumonia, COPD exacerbation, GI bleed, and CHF exacerbation. The patient was subsequently discharged to [facility]. She came back to the emergency room with some shortness of breath, cough, fever, generalized weakness and lethargy. She also states that she had been having some difficulty with urination. The patient was admitted with pneumonia, bronchospasms, acute hypoxia, chronic anemia, free bilateral illness and elevated troponins. The patient is known to have chronic hypoxia and uses 3 L of oxygen at the rehab facility as well and she wears CPAP for obstructive sleep apnea. Upon examination the patient is resting in bed up on 4 L of oxygen via nasal cannula she continues to have shortness of breath with exertion or extensive conversation. Continues with chronic cough, occasionally productive with clear phlegm. She feels her breathing is better today compared to previous. Objective - Vital Signs Vital signs: Vital Signs Temp 97.9 F 06/01/16 04:00 Pulse 80 06/01/16 08:45 Resp 18 06/01/16 08:20 BP 137/66 06/01/16 08:20 Pulse Ox 90 L 06/01/16 08:20 Intake & Output 05/31/16 06/01/16 06/01/16 18:59 06:59 18:59 Intake Total 600 Output Total 200 1250 200 Balance 400 -1250 -200 Weight 113.5 kg 114 kg Intake: Oral 600 Output: Urine 200 1250 200 Other: Voiding Method Bedpan Bedpan # Voids 1 1 - Exam GENERAL EXAM: Alert, active, comfortable in no apparent distress. HEAD: Normocephalic. EYES: Normal reaction of pupils, equal size. NOSE: Clear with pink turbinates. THROAT: No erythema or exudates. NECK: No masses, no JVD. CHEST: No chest wall deformity. LUNGS: Lungs noted to be bilaterally coarse, with scattered rhonchi and crackles. CVS: S1 and S2 normal with no audible mumurs, regular rhythm. ABDOMEN: No hepatosplenomegaly, normal bowel sounds, no guarding or rigidity. EXTREMITIES: Trace edema noted, pedal pulses palpable. SKIN: No rashes CENTRAL NERVOUS SYSTEM: No focal deficits, tone is normal in all 4 extremities. - Labs CBC & Chem 7: 06/01/16 06:46 06/01/16 06:46 Labs: Abnormal Lab Results - Last 24 Hours (Table) 05/31/16 05/31/16 05/31/16 Range/Units 06:08 11:46 16:32 WBC 11.2 H (3.8-10.6) k/uL RBC 3.60 L (3.80-5.40) m/uL Hgb 9.3 L (11.4-16.0) gm/dL Hct 31.2 L (34.0-46.0) % MCHC 29.8 L (31.0-37.0) g/dL RDW 18.6 H (11.5-15.5) % Plt Count 120 L (150-450) k/uL Neutrophils # (1.3-7.7) k/uL Neutrophils # (Manual) 8.8 H (1.3-7.7) k/uL PT (9.0-12.0) sec Carbon Dioxide (22-30) mmol/L BUN (7-17) mg/dL Glucose (74-99) mg/dL POC Glucose (mg/dL) 252 H 301 H (75-99) mg/dL Calcium (8.4-10.2) mg/dL Total Protein (6.3-8.2) g/dL Albumin (3.5-5.0) g/dL 05/31/16 06/01/16 06/01/16 Range/Units 21:06 06:09 06:46 WBC (3.8-10.6) k/uL RBC (3.80-5.40) m/uL Hgb (11.4-16.0) gm/dL Hct (34.0-46.0) % MCHC (31.0-37.0) g/dL RDW (11.5-15.5) % Plt Count (150-450) k/uL Neutrophils # (1.3-7.7) k/uL Neutrophils # (Manual) (1.3-7.7) k/uL PT 14.1 H (9.0-12.0) sec Carbon Dioxide (22-30) mmol/L BUN (7-17) mg/dL Glucose (74-99) mg/dL POC Glucose (mg/dL) 346 H 158 H (75-99) mg/dL Calcium (8.4-10.2) mg/dL Total Protein (6.3-8.2) g/dL Albumin (3.5-5.0) g/dL 06/01/16 06/01/16 Range/Units 06:46 06:46 WBC 13.2 H (3.8-10.6) k/uL RBC 3.42 L (3.80-5.40) m/uL Hgb 8.9 L (11.4-16.0) gm/dL Hct 29.9 L (34.0-46.0) % MCHC 29.9 L (31.0-37.0) g/dL RDW 18.5 H (11.5-15.5) % Plt Count (150-450) k/uL Neutrophils # 10.4 H (1.3-7.7) k/uL Neutrophils # (Manual) (1.3-7.7) k/uL PT (9.0-12.0) sec Carbon Dioxide 36 H (22-30) mmol/L BUN 27 H (7-17) mg/dL Glucose 121 H (74-99) mg/dL POC Glucose (mg/dL) (75-99) mg/dL Calcium 8.2 L (8.4-10.2) mg/dL Total Protein 5.6 L (6.3-8.2) g/dL Albumin 2.6 L (3.5-5.0) g/dL Microbiology - Last 24 Hours (Table) 05/30/16 01:40 Gram Stain - Preliminary Sputum Sputum Culture - Preliminary Presumptive Staph aureus 05/30/16 00:30 Gram Stain - Preliminary Groin Wound Culture - Preliminary Presumptive MRSA Assessment and Plan Plan: assessment MRSA Pneumonia with sepsis Acute exacerbation of chronic obstructive pulmonary disease Acute on chronic systolic congestive heart failure exacerbation Elevated troponins Acute anemia secondary to chronic blood loss and suspected lower GI bleed Chronic atrial fibrillation Diabetes mellitus insulin-dependent Acute on chronic hypoxic respiratory failure Obesity hypoventilation Plan Medications have been reviewed and will be continued as ordered. Cardiology and ID is also on consult. Currently awaiting chest x-ray results. Patient has been switched from Levaquin to vancomycin for positive MRSA in the sputum. Potassium replacement per protocol. Chest x-ray results pending. Patient will undergo bronchoscopy tomorrow with Dr. Pittman. Lovenox will be held today and tomorrow. Continue with supportive care. We will continue to monitor labs/ results and adjust treatment as necessary. I performed an examination of the patient and discussed their management with the nurse practitioner. I have reviewed the nurse practitioner's note and agree with the documented findings and plan of care.
[2016-06-01 11:53] LABS: Glucose,Whole Blood 294 mg/dL (75-99)
[2016-06-01] MEDS: LACTATED RINGERS 1,000 ML IV SCH (12:02)
[2016-06-01] MEDS: VANCOMYCIN 1,500 MG in SODIUM CHLORIDE 0.9% 250 ML IVPB SCH (12:21)
--- NOTE | 2016-06-01 13:22 | P.PN ---
Subjective Principal diagnosis: Pneumonia with sepsis Patient is a 76-year-old female who was readmitted to [facility] due to fever cough and worsening shortness of breath She had evidence of pneumonia with sepsis, she also had evidence of anemia was hemoglobin of 7.8, evidence of acute congestive heart failure exacerbation, she has known history of atrial fibrillation. Today patient was feeling worse she was having significant shortness of breath, She received extra doses of Lasix i am ordering now 1 dose of IV albumin 25 g followed by Lasix 20 mg IV Objective - Vital Signs Vital signs: Vital Signs Temp 97.8 F 06/01/16 12:00 Pulse 86 06/01/16 13:05 Resp 24 06/01/16 12:00 BP 117/51 06/01/16 12:00 Pulse Ox 91 L 06/01/16 12:00 Intake & Output 05/31/16 06/01/16 06/01/16 18:59 06:59 18:59 Intake Total 600 600 Output Total 200 1250 400 Balance 400 -1250 200 Weight 113.5 kg 114 kg 114 kg Intake: Oral 600 600 Output: Urine 200 1250 400 Other: Voiding Method Bedpan Bedpan # Voids 1 1 1 - Exam In general patient is alert and oriented 3 in no apparent distress HEENT head normocephalic and atraumatic Neck is supple no JVD no goiter no lymphadenopathy Chest exam reveals coarse crackles in both lung olivares no wheezing Cardiac exam reveals regular heart sounds no murmurs Abdomen is soft nontender no organomegaly Extremity exam reveals no edema no cyanosis or clubbing - Labs CBC & Chem 7: 06/01/16 06:46 06/01/16 06:46 Labs: Abnormal Lab Results - Last 24 Hours (Table) 05/31/16 05/31/16 06/01/16 Range/Units 16:32 21:06 06:09 WBC (3.8-10.6) k/uL RBC (3.80-5.40) m/uL Hgb (11.4-16.0) gm/dL Hct (34.0-46.0) % MCHC (31.0-37.0) g/dL RDW (11.5-15.5) % Neutrophils # (1.3-7.7) k/uL PT (9.0-12.0) sec Carbon Dioxide (22-30) mmol/L BUN (7-17) mg/dL Glucose (74-99) mg/dL POC Glucose (mg/dL) 301 H 346 H 158 H (75-99) mg/dL Calcium (8.4-10.2) mg/dL Total Protein (6.3-8.2) g/dL Albumin (3.5-5.0) g/dL 06/01/16 06/01/16 06/01/16 Range/Units 06:46 06:46 06:46 WBC 13.2 H (3.8-10.6) k/uL RBC 3.42 L (3.80-5.40) m/uL Hgb 8.9 L (11.4-16.0) gm/dL Hct 29.9 L (34.0-46.0) % MCHC 29.9 L (31.0-37.0) g/dL RDW 18.5 H (11.5-15.5) % Neutrophils # 10.4 H (1.3-7.7) k/uL PT 14.1 H (9.0-12.0) sec Carbon Dioxide 36 H (22-30) mmol/L BUN 27 H (7-17) mg/dL Glucose 121 H (74-99) mg/dL POC Glucose (mg/dL) (75-99) mg/dL Calcium 8.2 L (8.4-10.2) mg/dL Total Protein 5.6 L (6.3-8.2) g/dL Albumin 2.6 L (3.5-5.0) g/dL 06/01/16 Range/Units 11:51 WBC (3.8-10.6) k/uL RBC (3.80-5.40) m/uL Hgb (11.4-16.0) gm/dL Hct (34.0-46.0) % MCHC (31.0-37.0) g/dL RDW (11.5-15.5) % Neutrophils # (1.3-7.7) k/uL PT (9.0-12.0) sec Carbon Dioxide (22-30) mmol/L BUN (7-17) mg/dL Glucose (74-99) mg/dL POC Glucose (mg/dL) 294 H (75-99) mg/dL Calcium (8.4-10.2) mg/dL Total Protein (6.3-8.2) g/dL Albumin (3.5-5.0) g/dL Microbiology - Last 24 Hours (Table) 05/30/16 01:40 Gram Stain - Final Sputum Sputum Culture - Final Methicillin resist S. aureus Assessment and Plan Plan: 1. Pneumonia with MRSA: antibiotic were switched to IV vancomycin patient improving 2. Acute on chronic systolic CHF exacerbation. Most recent echo shows an EF of 40-45%. BNP elevated in the 3000's. Chest x-ray showing peripheral vascular congestion. Patient received multiple extra doses of IV Lasix due to worsening shortness of breath and O2 desaturations this morning 3. Cardiac pauses. Continue with telemetry monitoring. Cardiology has been consulted. 4. Insulin-dependent diabetes mellitus, A1c is 7.2 continue was Levemir and NovoLog 5. Elevated troponin with no chest pain. Cardiology following 6. Acute anemia secondary to chronic blood loss and suspected lower GI bleed. Hemoglobin is 7.7. Was unable to have a colonoscopy during last admission due to multiple complications. She had a EGD last month. Hemoglobin is dropping despite multiple IV iron infusion at this time will proceed was 1 unit of red blood cell transfusion 7. Chronic atrial fibrillation maintained on Coumadin for anticoagulation. Monitor PT/INRs closely due to Coumadin and Levaquin interaction. 8. History of COPD: Continue with nebulizer treatments. 9. Coagulopathy INR 1.5 today, will give coumadin 5 mg continue with lovenox until coumadin is therapeutic 10. Poor nutritional status, on protein supplements
--- NOTE | 2016-06-01 13:50 | P.PN ---
Progress Note - Text 76 old white female, history of COPD, post left femoral popliteal thrombectomy with patch angioplasty patient has developed a seroma in the groin and the stitches were removed some serous fluid drainage noted culture has been done patient is on on vancomycin and care of Dr. Mohan Wild today have checked the wound base of the wound is clean and there is still serous fluid noted plan is continue with Xeroform gauze packing and change of dressing twice a day and continue the IV antibiotic
[2016-06-01 16:47] LABS: Glucose,Whole Blood 356 mg/dL (75-99)
[2016-06-01] MEDS ORDERED: WARFARIN 5 MG TAB PO ONE (18:00)
[2016-06-01 20:45] LABS: Glucose,Whole Blood 289 mg/dL (75-99)
[2016-06-01] MEDS: MONTELUKAST 10 MG TAB PO SCH (21:33)
[2016-06-01] MEDS: LOSARTAN 50 MG TAB PO SCH (21:33)
[2016-06-01] MEDS: PRAVASTATIN SODIUM 20 MG TAB PO SCH (21:34)
[2016-06-02] MEDS: HYDROcodone/APAP 10-325MG 1 EACH TAB PO PRN ×4 (04:32→21:36)
[2016-06-02] MEDS: VANCOMYCIN 1,500 MG in SODIUM CHLORIDE 0.9% 250 ML IVPB SCH ×2 (04:36→21:35)
[2016-06-02 06:32] LABS: Glucose,Whole Blood 74 mg/dL (75-99)
[2016-06-02] MEDS: BUDESONIDE 1 MG/2 ML NEBU INHALATION SCH ×2 (07:23→20:17)
[2016-06-02] MEDS: IPRATROPIUM-ALBUTEROL 3 ML NEB INHALATION SCH ×4 (07:23→20:20)
[2016-06-02] MEDS ORDERED: GLYCOPYRROLATE 0.2 MG/ML 2 ML VIAL ONE (08:23)
[2016-06-02] MEDS ORDERED: fentaNYL (PF) 50 MCG/ML 2 ML AMP ONE (08:23)
[2016-06-02] MEDS ORDERED: IV FLUID CONTINUATION 1,000 ML IV ONE (08:23)
[2016-06-02] MEDS ORDERED: PROPOFOL 10 MG/ML 20 ML VIAL IV ONE (08:23)
[2016-06-02] MEDS ORDERED: KETAMINE 10 MG/ML 20 ML VIAL ONE (08:23)
[2016-06-02] MEDS ORDERED: MIDAZOLAM 2 MG/2 ML VIAL ONE (08:23)
[2016-06-02] MEDS: PANTOPRAZOLE 40 MG TABLET PO SCH (10:28)
[2016-06-02] MEDS: predniSONE 20 MG TAB PO SCH (10:28)
[2016-06-02] MEDS: DOCUSATE 100 MG CAP PO SCH ×2 (10:29→21:37)
[2016-06-02] MEDS: METOPROLOL SUCCINATE (ER) 100 MG TAB.ER.24H PO SCH ×2 (10:29→21:37)
[2016-06-02] MEDS: ALPRAZolam 0.25 MG TAB PO SCH ×2 (10:29→21:35)
[2016-06-02] MEDS: ENOXAPARIN 100 MG/ML SYRINGE SQ SCH (10:29)
[2016-06-02] MEDS: FUROSEMIDE 40 MG TAB PO SCH ×2 (10:29→17:15)
[2016-06-02] MEDS: guaiFENesin 600 MG TABLET.ER PO SCH ×2 (10:29→21:37)
[2016-06-02] MEDS: INSULIN DETEMIR 100 UNIT/ML 10 ML VIAL SQ SCH ×2 (10:30→21:37)
--- NOTE | 2016-06-02 10:43 | P.PN ---
Subjective This is a 76-year-old female patient who is being evaluated and examined today on the sixth floor. This patient is well-known to our service. This patient recently was hospitalized in April with a left leg ischemia status post thrombectomy, pneumonia, COPD exacerbation, GI bleed, and CHF exacerbation. The patient was subsequently discharged to [facility]. She came back to the emergency room with some shortness of breath, cough, fever, generalized weakness and lethargy. She also states that she had been having some difficulty with urination. The patient was admitted with pneumonia, bronchospasms, acute hypoxia, chronic anemia, free bilateral illness and elevated troponins. The patient is known to have chronic hypoxia and uses 3 L of oxygen at the rehab facility as well and she wears CPAP for obstructive sleep apnea. The patient underwent a bronchoscopy this morning with Dr. Pittman. The patient had extensive amount of purulent secretions that were aspirated from both lungs, and both lungs appear to be plugged, patient tolerated procedure well. Patient states she feels significantly better post procedure. Upon examination the patient is resting in bed up on 4 L of oxygen via nasal cannula she continues to have shortness of breath with exertion or extensive conversation, however this has improved. Continues with chronic cough, occasionally productive with clear phlegm. She feels her breathing is better today compared to previous. Objective - Vital Signs Vital signs: Vital Signs Temp 97.7 F 06/02/16 09:30 Pulse 86 06/02/16 09:30 Resp 20 06/02/16 09:30 BP 132/66 06/02/16 09:30 Pulse Ox 93 L 06/02/16 09:30 Intake & Output 06/01/16 06/02/16 06/02/16 18:59 06:59 18:59 Intake Total 1200 150 100 Output Total 600 225 Balance 600 -75 100 Weight 114 kg 107 kg Intake: IV 100 Oral 1200 150 Output: Urine 600 225 Other: Voiding Method Bedpan Bedpan Bedpan # Voids 1 1 1 # Bowel Movements 1 0 - Exam GENERAL EXAM: Alert, active, comfortable in no apparent distress. HEAD: Normocephalic. EYES: Normal reaction of pupils, equal size. NOSE: Clear with pink turbinates. THROAT: No erythema or exudates. NECK: No masses, no JVD. CHEST: No chest wall deformity. LUNGS: Lungs noted to be bilaterally coarse, with few faint rhonchi. Significantly improved CVS: S1 and S2 normal with no audible mumurs, regular rhythm. ABDOMEN: No hepatosplenomegaly, normal bowel sounds, no guarding or rigidity. EXTREMITIES: Trace edema noted, pedal pulses palpable. SKIN: No rashes CENTRAL NERVOUS SYSTEM: No focal deficits, tone is normal in all 4 extremities. - Labs CBC & Chem 7: 06/01/16 06:46 06/01/16 06:46 Labs: Abnormal Lab Results - Last 24 Hours (Table) 06/01/16 06/01/16 06/01/16 Range/Units 11:51 16:46 20:43 POC Glucose (mg/dL) 294 H 356 H 289 H (75-99) mg/dL 06/02/16 Range/Units 06:29 POC Glucose (mg/dL) 74 L (75-99) mg/dL Microbiology - Last 24 Hours (Table) 05/30/16 00:30 Gram Stain - Final Groin Wound Culture - Final Methicillin resist S. aureus 05/30/16 00:30 Anaerobic Culture - Preliminary Groin 05/30/16 01:40 Gram Stain - Final Sputum Sputum Culture - Final Methicillin resist S. aureus Assessment and Plan Plan: assessment MRSA Pneumonia with sepsis Acute exacerbation of chronic obstructive pulmonary disease Acute on chronic systolic congestive heart failure exacerbation Elevated troponins Acute anemia secondary to chronic blood loss and suspected lower GI bleed Chronic atrial fibrillation Diabetes mellitus insulin-dependent Acute on chronic hypoxic respiratory failure Obesity hypoventilation Plan Medications have been reviewed and will be continued as ordered. Cardiology and ID is also on consult. Continues in contact per cautioned her MRSA in the sputum. Potassium replacement per protocol. Chest x-ray results pending. Bronchoscopy results pending. Continue with supportive care. We will continue to monitor labs/results and adjust treatment as necessary. I performed an examination of the patient and discussed their management with the nurse practitioner. I have reviewed the nurse practitioner's note and agree with the documented findings and plan of care.
[2016-06-02] MEDS: INSULIN LISPRO (humaLOG) 300 UNIT/3 ML VIAL SQ SCH ×4 (10:51→21:38)
[2016-06-02] MEDS: LACTATED RINGERS 1,000 ML IV SCH (11:34)
[2016-06-02 12:23] LABS: Glucose,Whole Blood 124 mg/dL (75-99)
[2016-06-02 13:41] LABS: Anisocytosis Slight; Basophils % (A) 0 %; CH 25.1; CHCM 27.9; Eosinophils % (A) 0 %; HCT 30.9 % (34.0-46.0); HDW 3.67; HGB 8.7 gm/dL (11.4-16.0); Hypochromasia Marked; Luc # (Auto) 0.13; Luc % (Auto) 1; Lymphocytes # (A) 0.9 k/uL (1.0-4.8); Lymphocytes % (A) 5 %; MCH 25.3 pg (25.0-35.0); MCHC 28.1 g/dL (31.0-37.0); MCV 89.9 fL (80.0-100.0); Mean Platelet Volume 8.1; Monocytes # (A) 0.5 k/uL (0-1.0); Monocytes % (A) 2 %; Neutrophils # (A) 17.1 k/uL (1.3-7.7); Neutrophils % (A) 92 %; Poikilocytosis Slight; RBC 3.44 m/uL (3.80-5.40); RDW 19.4 % (11.5-15.5); WBC 18.6 k/uL (3.8-10.6); WBC (Perox) 19.75
[2016-06-02 13:44] LABS: ALT 29 U/L (9-52); AST 16 U/L (14-36); Alkaline Phosphatase 61 U/L (38-126); Anion Gap 10 mmol/L; Blood Urea Nitrogen 27 mg/dL (7-17); Calcium 8.3 mg/dL (8.4-10.2); Carbon Dioxide 30 mmol/L (22-30); Chloride 101 mmol/L (98-107); Glucose 141 mg/dL (74-99); Magnesium 1.7 mg/dL (1.6-2.3); Non-African American GFR(MDRD) >60 (>60 ml/min/1.73 sqM); Potassium 4.3 mmol/L (3.5-5.1); Sodium 141 mmol/L (137-145); Total Bilirubin 0.3 mg/dL (0.2-1.3); Total Protein 5.8 g/dL (6.3-8.2)
[2016-06-02 13:56] LABS: INR 2.1 (<1.1); Prothrombin Time 20.5 sec (9.0-12.0)
--- NOTE | 2016-06-02 15:47 | PCN ---
DATE OF PROCEDURE: PROCEDURE: 1. Bronchoscopy. 2. Bronchoalveolar lavage. DIAGNOSES: 1. Bilateral pneumonia and mucus plugging. 2. Acute on chronic hypoxic respiratory failure. OPERATIVE DETAIL: The patient was prepared and draped in the usual fashion. Informed consent was obtained from the patient as well as her daughter. The procedure was explained to the patient and her daughter at length. For anesthesia, please refer to anesthesia report and detail. Under conscious sedation. fiberoptic bronchoscope was passed through the right naris without any difficulty. Vocal cords were inspected. They were normal in structure and function. Tip of the scope was passed beyond the vocal cords into the trachea. Extensive amount of purulent bilateral secretions was present which was filling up the lungs. The tip of the scope was passed on the right side. Right upper lobe, right middle lobe, right lower lobe were lavaged followed by the left side. Very thick purulent secretions were clogging. The bronchoscope was removed, but overall patient tolerated the procedure well besides having mild transient desaturation. After doing pulmonary toilet, detailed inspection of both sides along with subsegmental level bilaterally was performed. No endobronchial mass lesion was identified. The lavage was predominantly performed in the right upper lobe, right lower lobe and left lower lobe. Patient tolerated the procedure well. No complication noted. Fluid is being sent for Gram stain, culture and cytology.
--- NOTE | 2016-06-02 17:03 | P.PN ---
Subjective Principal diagnosis: Pneumonia with sepsis Patient is a 76-year-old female who was readmitted to [facility] due to fever cough and worsening shortness of breath She had evidence of pneumonia with sepsis, she also had evidence of anemia was hemoglobin of 7.8, evidence of acute congestive heart failure exacerbation, she has known history of atrial fibrillation. Today patient was feeling worse she was having significant shortness of breath, She received extra doses of Lasix i am ordering now 1 dose of IV albumin 25 g followed by Lasix 20 mg IV Objective - Vital Signs Vital signs: Vital Signs Temp 97.5 F L 06/02/16 10:40 Pulse 96 06/02/16 16:13 Resp 14 06/02/16 10:40 BP 128/64 06/02/16 10:40 Pulse Ox 95 06/02/16 10:40 Intake & Output 06/01/16 06/02/16 06/02/16 18:59 06:59 18:59 Intake Total 1200 150 220 Output Total 600 225 500 Balance 600 -75 -280 Weight 114 kg 107 kg Intake: IV 100 Oral 1200 150 120 Output: Urine 600 225 500 Other: Voiding Method Bedpan Bedpan Bedpan # Voids 1 1 1 # Bowel Movements 1 0 - Exam In general patient is alert and oriented 3 in no apparent distress HEENT head normocephalic and atraumatic Neck is supple no JVD no goiter no lymphadenopathy Chest exam reveals coarse crackles in both lung olivares no wheezing Cardiac exam reveals regular heart sounds no murmurs Abdomen is soft nontender no organomegaly Extremity exam reveals no edema no cyanosis or clubbing - Labs CBC & Chem 7: 06/02/16 13:22 06/02/16 13:22 Labs: Abnormal Lab Results - Last 24 Hours (Table) 06/01/16 06/02/16 06/02/16 Range/Units 20:43 06:29 12:21 WBC (3.8-10.6) k/uL RBC (3.80-5.40) m/uL Hgb (11.4-16.0) gm/dL Hct (34.0-46.0) % MCHC (31.0-37.0) g/dL RDW (11.5-15.5) % Neutrophils # (1.3-7.7) k/uL Lymphocytes # (1.0-4.8) k/uL PT (9.0-12.0) sec BUN (7-17) mg/dL Glucose (74-99) mg/dL POC Glucose (mg/dL) 289 H 74 L 124 H (75-99) mg/dL Calcium (8.4-10.2) mg/dL Total Protein (6.3-8.2) g/dL Albumin (3.5-5.0) g/dL 06/02/16 06/02/16 06/02/16 Range/Units 13:22 13:22 13:22 WBC 18.6 H (3.8-10.6) k/uL RBC 3.44 L (3.80-5.40) m/uL Hgb 8.7 L (11.4-16.0) gm/dL Hct 30.9 L (34.0-46.0) % MCHC 28.1 L (31.0-37.0) g/dL RDW 19.4 H (11.5-15.5) % Neutrophils # 17.1 H (1.3-7.7) k/uL Lymphocytes # 0.9 L (1.0-4.8) k/uL PT 20.5 H (9.0-12.0) sec BUN 27 H (7-17) mg/dL Glucose 141 H (74-99) mg/dL POC Glucose (mg/dL) (75-99) mg/dL Calcium 8.3 L (8.4-10.2) mg/dL Total Protein 5.8 L (6.3-8.2) g/dL Albumin 2.6 L (3.5-5.0) g/dL Microbiology - Last 24 Hours (Table) 05/30/16 00:30 Gram Stain - Final Groin Wound Culture - Final Methicillin resist S. aureus 05/30/16 00:30 Anaerobic Culture - Preliminary Groin Assessment and Plan Plan: 1. Pneumonia with MRSA: on to IV vancomycin patient improving, pulmonary and infectious disease following 2. Acute on chronic systolic CHF exacerbation. Most recent echo shows an EF of 40-45%. BNP elevated in the 3000's. Chest x-ray showing peripheral vascular congestion. Patient received multiple extra doses of IV Lasix due to worsening shortness of breath and O2 desaturations this morning 3. Cardiac pauses. Continue with telemetry monitoring. Cardiology has been consulted. 4. Insulin-dependent diabetes mellitus, A1c is 7.2 continue was Levemir and NovoLog 5. Elevated troponin with no chest pain. Cardiology following 6. Acute anemia secondary to chronic blood loss and suspected lower GI bleed. 7. Chronic atrial fibrillation maintained on Coumadin for anticoagulation. Monitor PT/INRs closely due to Coumadin and Levaquin interaction. 8. History of COPD: Continue with nebulizer treatments. 9. Coagulopathy INR 2.1 today, will give coumadin 4 mg discontinue Lovenox 10. Poor nutritional status, on protein supplements
[2016-06-02 17:06] LABS: Glucose,Whole Blood 186 mg/dL (75-99)
[2016-06-02] MEDS ORDERED: WARFARIN 2 MG TAB PO ONE (18:00)
[2016-06-02 21:10] LABS: Glucose,Whole Blood 198 mg/dL (75-99)
[2016-06-02] MEDS: MONTELUKAST 10 MG TAB PO SCH (21:37)
[2016-06-02] MEDS: LOSARTAN 50 MG TAB PO SCH (21:37)
[2016-06-02] MEDS: PRAVASTATIN SODIUM 20 MG TAB PO SCH (21:37)
--- NOTE | 2016-06-02 22:21 | P.PN ---
Subjective Principal diagnosis: Shortness of breath 76-year-old female who has an extensive hospitalization currently at 7 days of admission but actually it's been longer than that due to her short hiatus out of the hospital. She was deemed medically stable to be to leave the hospital to attend her 's this occurred while she has been so ill. The patient was admitted with severe shortness of breath from the extended care facility she was being cared for after her gastrointestinal bleeding and worsening of her underlying pulmonary disease. The patient does have severe underlying pulmonary disease and wears oxygen at all times and does use a CPAP at night because of her sleep apnea. Recently this has definitely been worse and because of concerns to ongoing pneumonia the infectious diseases consultation was requested This patient relates she just feeling slightly better than when she was first admitted. She was having difficulties that time also with her lower extremity and the left. She was seen by vascular surgery and a large clot was noted and a thrombectomy , endarterectomy and patch angioplasty was performed of the left arterial system, large clot was seen. Patient relates that her leg continues to feel okay. She's having improved shortness of breath today. She is having less cough and sputum production is able to speak in sentences because she is so less short of breath. Patient had bronchoscopy today. She found this is deftly helping her breathing. She is less short of breath. She's felt in a while. Objective - Vital Signs Vital signs: Vital Signs Temp 97.5 F L 06/02/16 10:40 Pulse 94 06/02/16 20:34 Resp 14 06/02/16 10:40 BP 120/55 06/02/16 16:00 Pulse Ox 93 L 06/02/16 16:00 Intake & Output 06/02/16 06/02/16 06/03/16 06:59 18:59 06:59 Intake Total 150 310 Output Total 225 500 Balance -75 -190 Weight 107 kg Intake: IV 100 Oral 150 210 Output: Urine 225 500 Other: Voiding Method Bedpan Bedpan # Voids 1 1 # Bowel Movements 0 - Exam 76-year-old woman who relates she is feeling less short of breath but appears to still be short of breath HEENT: Anicteric conjunctiva are pink and moist nasal mucosa grossly intact without significant lesions, there is no thrush. Worn dentition Neck: The neck is supple without significant lymphadenopathy or thyromegaly. Lungs: Symmetrical air entry is noted. Wheezes throughout the lung olivares are noted. Bibasilar crackles are heard right greater than left no dullness is noted minimal egophony to the right base is noted Heart: Regular rate and rhythm with an audible S1-S2, no S3 no S4. There is no significant murmur click or rub, PMI was nondisplaced. Abdomen: Obese, Positive bowel sounds soft and nontender without palpable masses or organomegaly. There was no guarding or rebound. Extremities: The upper and lower extremity is have some generalized edema. However no open ulcerations are seen. The entry site for the thrombectomy is without bleeding drainage or evidence of infection or tenderness Neuro: Awake alert oriented to person place and time. There are no acute new gross focal sensory motor deficits. She has significant generalized weakness though - Labs CBC & Chem 7: 06/02/16 13:22 06/02/16 13:22 Labs: Abnormal Lab Results - Last 24 Hours (Table) 06/02/16 06/02/16 06/02/16 Range/Units 06:29 12:21 13:22 WBC (3.8-10.6) k/uL RBC (3.80-5.40) m/uL Hgb (11.4-16.0) gm/dL Hct (34.0-46.0) % MCHC (31.0-37.0) g/dL RDW (11.5-15.5) % Neutrophils # (1.3-7.7) k/uL Lymphocytes # (1.0-4.8) k/uL PT 20.5 H (9.0-12.0) sec BUN (7-17) mg/dL Glucose (74-99) mg/dL POC Glucose (mg/dL) 74 L 124 H (75-99) mg/dL Calcium (8.4-10.2) mg/dL Total Protein (6.3-8.2) g/dL Albumin (3.5-5.0) g/dL 06/02/16 06/02/16 06/02/16 Range/Units 13:22 13:22 17:05 WBC 18.6 H (3.8-10.6) k/uL RBC 3.44 L (3.80-5.40) m/uL Hgb 8.7 L (11.4-16.0) gm/dL Hct 30.9 L (34.0-46.0) % MCHC 28.1 L (31.0-37.0) g/dL RDW 19.4 H (11.5-15.5) % Neutrophils # 17.1 H (1.3-7.7) k/uL Lymphocytes # 0.9 L (1.0-4.8) k/uL PT (9.0-12.0) sec BUN 27 H (7-17) mg/dL Glucose 141 H (74-99) mg/dL POC Glucose (mg/dL) 186 H (75-99) mg/dL Calcium 8.3 L (8.4-10.2) mg/dL Total Protein 5.8 L (6.3-8.2) g/dL Albumin 2.6 L (3.5-5.0) g/dL 06/02/16 Range/Units 21:09 WBC (3.8-10.6) k/uL RBC (3.80-5.40) m/uL Hgb (11.4-16.0) gm/dL Hct (34.0-46.0) % MCHC (31.0-37.0) g/dL RDW (11.5-15.5) % Neutrophils # (1.3-7.7) k/uL Lymphocytes # (1.0-4.8) k/uL PT (9.0-12.0) sec BUN (7-17) mg/dL Glucose (74-99) mg/dL POC Glucose (mg/dL) 198 H (75-99) mg/dL Calcium (8.4-10.2) mg/dL Total Protein (6.3-8.2) g/dL Albumin (3.5-5.0) g/dL Laboratory Results WBC 18.6 k/uL (3.8-10.6) H 06/02/16 13:22 RBC 3.44 m/uL (3.80-5.40) L 06/02/16 13:22 Hgb 8.7 gm/dL (11.4-16.0) L 06/02/16 13:22 Hct 30.9 % (34.0-46.0) L 06/02/16 13:22 MCV 89.9 fL (80.0-100.0) 06/02/16 13:22 MCH 25.3 pg (25.0-35.0) 06/02/16 13: MCHC 28.1 g/dL (31.0-37.0) L 06/02/16 13:22 RDW 19.4 % (11.5-15.5) H 06/02/16 13:22 Plt Count 266 k/uL (150-450) 06/02/16 13:22 Neutrophils % 92 % 06/02/16 13: Neutrophils % (Manual) 78.5 % 05/31/16 06:08 Lymphocytes % 5 % 06/02/16 13: Lymphocytes % (Manual) 13.5 % 05/31/16 06:08 Monocytes % 2 % 06/02/16 13: Monocytes % (Manual) 4.5 % 05/31/16 06:08 Eosinophils % 0 % 06/02/16 13: Eosinophils % (Manual) 0.5 % 05/31/16 06:08 Basophils % 0 % 06/02/16 13: Metamyelocytes % 2.0 % 05/31/16 06:08 Myelocytes % 1.0 % 05/31/16 06:08 Neutrophils # 17.1 k/uL (1.3-7.7) H 06/02/16 13: Neutrophils # (Manual) 8.8 k/uL (1.3-7.7) H 05/31/16 06:08 Lymphocytes # 0.9 k/uL (1.0-4.8) L 06/02/16 13:22 Lymphocytes # (Manual) 1.5 k/uL (1.0-4.8) 05/31/16 06:08 Monocytes # 0.5 k/uL (0-1.0) 06/02/16 13:22 Monocytes # (Manual) 0.5 k/uL (0-1.0) 05/31/16 06:08 Eosinophils # 0.0 k/uL (0-0.7) 06/02/16 13:22 Eosinophils # (Manual) 0.1 k/uL (0-0.7) 05/31/16 06:08 Basophils # 0.0 k/uL (0-0.2) 06/02/16 13:22 Nucleated RBCs 0 /100 WBC (0-0) 05/31/16 06:08 Manual Slide Review Performed 05/31/16 06:08 Hypochromasia Marked 06/02/16 13:22 Poikilocytosis Slight 06/02/16 13:22 Anisocytosis Slight 06/02/16 13:22 PT 20.5 sec (9.0-12.0) H 06/02/16 13:22 INR 2.1 (<1.1) 06/02/16 13:22 APTT 27.1 sec (22.0-30.0) 05/19/16 10:05 Sodium 141 mmol/L (137-145) 06/02/16 13:22 Potassium 4.3 mmol/L (3.5-5.1) 06/02/16 13:22 Chloride 101 mmol/L (98-107) 06/02/16 13:22 Carbon Dioxide 30 mmol/L (22-30) 06/02/16 13:22 Anion Gap 10 mmol/L 06/02/16 13:22 BUN 27 mg/dL (7-17) H 06/02/16 13:22 Creatinine 0.58 mg/dL (0.52-1.04) 06/02/16 13:22 Est GFR (MDRD) Af Amer >60 (>60 ml/min/1.73 sqM) 06/02/16 13:22 Est GFR (MDRD) Non-Af >60 (>60 ml/min/1.73 sqM) 06/02/16 13:22 Glucose 141 mg/dL (74-99) H 06/02/16 13:22 POC Glucose (mg/dL) 198 mg/dL (75-99) H 06/02/16 21:09 POC Glu [employer] Set Up Operator ID Raoul [email or web address] 06/02/16 21:[address] Glu mg/dL 166 mg/dL 05/23/16 07:03 Hemoglobin A1c 7.4 % (4.2-6.1) H 05/23/16 07:03 Plasma Lactic Acid Good 1.4 mmol/L (0.7-2.0) 05/19/16 13:51 Calcium 8.3 mg/dL (8.4-10.2) L 06/02/16 13:22 Phosphorus 4.0 mg/dL (2.5-4.5) 06/02/16 13:22 Magnesium 1.7 mg/dL (1.6-2.3) 06/02/16 13:22 Total Bilirubin 0.3 mg/dL (0.2-1.3) 06/02/16 13:22 AST 16 U/L (14-36) 06/02/16 13:22 ALT 29 U/L (9-52) 06/02/16 13:22 Alkaline Phosphatase 61 U/L (38-126) 06/02/16 13:22 Total Creatine Kinase <20 U/L (30-135) L 05/19/16 10:05 CK-MB (CK-2) <0.2 ng/mL (0.0-2.4) 05/19/16 10:05 CK-MB (CK-2) Rel Index 05/19/16 10:05 Troponin I 0.071 ng/mL (0.000-0.034) H* 05/19/16 10:05 NT-Pro-B Natriuret Pep 3920 pg/mL 05/20/16 09:00 Total Protein 5.8 g/dL (6.3-8.2) L 06/02/16 13:22 Albumin 2.6 g/dL (3.5-5.0) L 06/02/16 13:22 TSH 2.550 mIU/L (0.465-4.680) 05/21/16 06:30 Free T4 0.76 ng/dL (0.78-2.19) L 05/21/16 06:30 Urine Color Light Yellow 05/19/16 10:25 Urine Appearance Clear (Clear) 05/19/16 10:25 Urine pH 6.5 (5.0-8.0) 05/19/16 10:25 Ur Specific [place] 1.011 (1.001-1.035) 05/19/16 10:25 Urine Protein Trace (Negative) H 05/19/16 10:25 Urine Glucose (UA) Negative (Negative) 05/19/16 10:25 Urine Ketones Negative (Negative) 05/19/16 10:25 Urine Blood Negative (Negative) 05/19/16 10:25 Urine Nitrite Negative (Negative) 05/19/16 10:25 Urine Bilirubin Negative (Negative) 05/19/16 10:25 Urine Urobilinogen <2.0 mg/dL (<2.0) 05/19/16 10:25 Ur Leukocyte Esterase Negative (Negative) 05/19/16 10:25 Vancomycin Trough 21.4 ug/mL 05/31/16 15:56 Influenza Type A RNA Not Detected (Not Detectd) 05/19/16 10:05 Influenza Type B (PCR) Not Detected (Not Detectd) 05/19/16 10:05 Blood Type A Positive 05/23/16 09:33 Blood Type Recheck No 05/23/16 09:33 Antibody Screen NEGATIVE 05/23/16 09:33 Crossmatch See Detail 05/23/16 09:33 Spec Expiration Date 05/26/2016233205/23/16 09:33 Microbiology 05/30/16 00:30 Groin Gram Stain - Final 05/30/16 00:30 Groin Wound Culture - Final Methicillin resist S. aureus 05/30/16 00:30 Groin Anaerobic Culture - Preliminary 05/30/16 01:40 Sputum Gram Stain - Final 05/30/16 01:40 Sputum Sputum Culture - Final Methicillin resist S. aureus 05/21/16 12:55 Blood Blood Culture - Final No Growth after 144 hours 05/19/16 10:05 Blood Blood Culture - Final No Growth after 144 hours Assessment and Plan (1) MRSA pneumonia Narrative/Plan: 76-year-old female who has multiple medical troubles occluding underlying significant cardiovascular disease, chronic pulmonary disease with oxygen dependence as well as sleep apnea presents to Hospital profoundly ill from the [facility] facility. Apparently hospitalized for she had difficulties with gastrointestinal bleeding. During this stay she's had difficulties with congestive heart failure, exacerbation of COPD, extensive thrombus to the left leg requiring thrombectomy and endarterectomy. Patient relates is feeling just slightly better today. Review of the previous culture reveals evidence she does have evidence of the sputum culture with evidence of MRSA present. It does appear to be levofloxacin resistant. She was initiated vancomycin therapy. Is now having improvement within the last day. Vancomycin therapy will continue. Likely would treat her for the next 14 days. We'll request her vascular surgeon for IV access, or PICC line if he agrees. We'll monitor response to current antibiotic therapy. We'll likely need to complete a course of this time of her transfer back to [facility]. A bronchoscopy today with further improvement. The left leg is improving with antibiotic therapy and local care She does not have any significant urinary symptoms. Status: Acute (2) Chronic a-fib Status: Acute (3) Acute blood loss anemia Status: Acute (4) Leukocytosis Status: Acute
[2016-06-03] MEDS: HYDROcodone/APAP 10-325MG 1 EACH TAB PO PRN ×4 (03:21→20:14)
[2016-06-03 06:13] LABS: Glucose,Whole Blood 111 mg/dL (75-99)
[2016-06-03 06:38] LABS: Anisocytosis Moderate; Basophils % (A) 0 %; CH 25.4; CHCM 28.4; Eosinophils % (A) 0 %; HCT 28.3 % (34.0-46.0); HDW 3.61; HGB 7.9 gm/dL (11.4-16.0); Hypochromasia Marked; Luc # (Auto) 0.22; Luc % (Auto) 2; Lymphocytes # (A) 1.7 k/uL (1.0-4.8); Lymphocytes % (A) 11 %; MCV 89.2 fL (80.0-100.0); Monocytes # (A) 0.5 k/uL (0-1.0); Monocytes % (A) 3 %; Neutrophils # (A) 12.6 k/uL (1.3-7.7); Neutrophils % (A) 84 %; Poikilocytosis Slight; RBC 3.17 m/uL (3.80-5.40); WBC (Perox) 15.63
[2016-06-03] MEDS: INSULIN LISPRO (humaLOG) 300 UNIT/3 ML VIAL SQ SCH ×4 (06:42→21:16)
[2016-06-03] MEDS: PANTOPRAZOLE 40 MG TABLET PO SCH (06:43)
[2016-06-03 06:49] LABS: INR 2.3 (<1.1); Prothrombin Time 22.4 sec (9.0-12.0)
[2016-06-03 07:03] LABS: ALT 30 U/L (9-52); AST 16 U/L (14-36); Alkaline Phosphatase 54 U/L (38-126); Anion Gap 9 mmol/L; Blood Urea Nitrogen 32 mg/dL (7-17); Calcium 8.3 mg/dL (8.4-10.2); Carbon Dioxide 32 mmol/L (22-30); Chloride 100 mmol/L (98-107); Glucose 100 mg/dL (74-99); Non-African American GFR(MDRD) >60 (>60 ml/min/1.73 sqM); Potassium 3.9 mmol/L (3.5-5.1); Sodium 141 mmol/L (137-145); Total Bilirubin 0.2 mg/dL (0.2-1.3); Total Protein 5.2 g/dL (6.3-8.2)
[2016-06-03] MEDS: DOCUSATE 100 MG CAP PO SCH ×2 (09:34→20:14)
[2016-06-03] MEDS: ALPRAZolam 0.25 MG TAB PO SCH ×2 (09:34→20:14)
[2016-06-03] MEDS: guaiFENesin 600 MG TABLET.ER PO SCH ×2 (09:35→20:15)
[2016-06-03] MEDS: FUROSEMIDE 40 MG TAB PO SCH ×2 (09:35→15:42)
[2016-06-03] MEDS: INSULIN DETEMIR 100 UNIT/ML 10 ML VIAL SQ SCH ×2 (09:35→21:16)
[2016-06-03] MEDS: METOPROLOL SUCCINATE (ER) 100 MG TAB.ER.24H PO SCH ×2 (09:36→20:15)
[2016-06-03] MEDS: predniSONE 20 MG TAB PO SCH (09:37)
--- NOTE | 2016-06-03 09:56 | P.PN ---
Subjective This is a 76-year-old female patient who is being evaluated and examined today on the sixth floor. This patient is well-known to our service. This patient recently was hospitalized in April with a left leg ischemia status post thrombectomy, pneumonia, COPD exacerbation, GI bleed, and CHF exacerbation. The patient was subsequently discharged to [facility]. She came back to the emergency room with some shortness of breath, cough, fever, generalized weakness and lethargy. She also states that she had been having some difficulty with urination. The patient was admitted with pneumonia, bronchospasms, acute hypoxia, chronic anemia, free bilateral illness and elevated troponins. The patient is known to have chronic hypoxia and uses 3 L of oxygen at the rehab facility as well and she wears CPAP for obstructive sleep apnea. The patient underwent a bronchoscopy yesterday with Dr. Pittman. The patient had extensive amount of purulent secretions that were aspirated from both lungs, and both lungs appear to be plugged, patient tolerated procedure well. Patient states she feels significantly better post procedure. Upon examination the patient is resting in bed up on 4 L of oxygen via nasal cannula she continues to have shortness of breath with exertion or extensive conversation, however this has improved. Continues with chronic cough, occasionally productive with clear phlegm. She feels her breathing is better today compared to previous. Patient states it is also easier to cough up any secreations. Objective - Vital Signs Vital signs: Vital Signs Temp 98.3 F 06/03/16 08:30 Pulse 93 06/03/16 08:30 Resp 20 06/03/16 08:30 BP 130/75 06/03/16 08:30 Pulse Ox 93 L 06/03/16 08:30 Intake & Output 06/02/16 06/03/16 06/03/16 18:59 06:59 18:59 Intake Total 310 240 Output Total 500 700 Balance -190 -700 240 Weight 112 kg Intake: IV 100 Oral 210 240 Output: Urine 500 700 Other: Voiding Method Bedpan Bedpan # Voids 1 1 # Bowel Movements 0 - Exam GENERAL EXAM: Alert, active, comfortable in no apparent distress. HEAD: Normocephalic. EYES: Normal reaction of pupils, equal size. NOSE: Clear with pink turbinates. THROAT: No erythema or exudates. NECK: No masses, no JVD. CHEST: No chest wall deformity. LUNGS: Lungs noted to be bilaterally coarse, with few faint rhonchi. Significantly improved CVS: S1 and S2 normal with no audible mumurs, regular rhythm. ABDOMEN: No hepatosplenomegaly, normal bowel sounds, no guarding or rigidity. EXTREMITIES: Trace edema noted, pedal pulses palpable. SKIN: No rashes CENTRAL NERVOUS SYSTEM: No focal deficits, tone is normal in all 4 extremities. - Labs CBC & Chem 7: 06/03/16 05:50 06/03/16 05:50 Labs: Abnormal Lab Results - Last 24 Hours (Table) 06/02/16 06/02/16 06/02/16 Range/Units 12:21 13:22 13:22 WBC (3.8-10.6) k/uL RBC (3.80-5.40) m/uL Hgb (11.4-16.0) gm/dL Hct (34.0-46.0) % MCHC (31.0-37.0) g/dL RDW (11.5-15.5) % Neutrophils # (1.3-7.7) k/uL Lymphocytes # (1.0-4.8) k/uL PT 20.5 H (9.0-12.0) sec Carbon Dioxide (22-30) mmol/L BUN 27 H (7-17) mg/dL Glucose 141 H (74-99) mg/dL POC Glucose (mg/dL) 124 H (75-99) mg/dL Calcium 8.3 L (8.4-10.2) mg/dL Total Protein 5.8 L (6.3-8.2) g/dL Albumin 2.6 L (3.5-5.0) g/dL 06/02/16 06/02/16 06/02/16 Range/Units 13:22 17:05 21:09 WBC 18.6 H (3.8-10.6) k/uL RBC 3.44 L (3.80-5.40) m/uL Hgb 8.7 L (11.4-16.0) gm/dL Hct 30.9 L (34.0-46.0) % MCHC 28.1 L (31.0-37.0) g/dL RDW 19.4 H (11.5-15.5) % Neutrophils # 17.1 H (1.3-7.7) k/uL Lymphocytes # 0.9 L (1.0-4.8) k/uL PT (9.0-12.0) sec Carbon Dioxide (22-30) mmol/L BUN (7-17) mg/dL Glucose (74-99) mg/dL POC Glucose (mg/dL) 186 H 198 H (75-99) mg/dL Calcium (8.4-10.2) mg/dL Total Protein (6.3-8.2) g/dL Albumin (3.5-5.0) g/dL 06/03/16 06/03/16 06/03/16 Range/Units 05:50 05:50 05:50 WBC 15.0 H (3.8-10.6) k/uL RBC 3.17 L (3.80-5.40) m/uL Hgb 7.9 L (11.4-16.0) gm/dL Hct 28.3 L (34.0-46.0) % MCHC 28.0 L (31.0-37.0) g/dL RDW 20.0 H (11.5-15.5) % Neutrophils # 12.6 H (1.3-7.7) k/uL Lymphocytes # (1.0-4.8) k/uL PT 22.4 H (9.0-12.0) sec Carbon Dioxide 32 H (22-30) mmol/L BUN 32 H (7-17) mg/dL Glucose 100 H (74-99) mg/dL POC Glucose (mg/dL) (75-99) mg/dL Calcium 8.3 L (8.4-10.2) mg/dL Total Protein 5.2 L (6.3-8.2) g/dL Albumin 2.4 L (3.5-5.0) g/dL 06/03/16 Range/Units 06:12 WBC (3.8-10.6) k/uL RBC (3.80-5.40) m/uL Hgb (11.4-16.0) gm/dL Hct (34.0-46.0) % MCHC (31.0-37.0) g/dL RDW (11.5-15.5) % Neutrophils # (1.3-7.7) k/uL Lymphocytes # (1.0-4.8) k/uL PT (9.0-12.0) sec Carbon Dioxide (22-30) mmol/L BUN (7-17) mg/dL Glucose (74-99) mg/dL POC Glucose (mg/dL) 111 H (75-99) mg/dL Calcium (8.4-10.2) mg/dL Total Protein (6.3-8.2) g/dL Albumin (3.5-5.0) g/dL Microbiology - Last 24 Hours (Table) 06/02/16 14:30 Gram Stain - Preliminary Bronchial Washings - Right Bronchial Washings Culture - Preliminary 06/02/16 14:30 Fungal Culture - Preliminary Bronchial Washings - Right 06/02/16 14:30 Acid Fast Bacilli Culture - Preliminary Bronchial Washings - Right Assessment and Plan Plan: assessment MRSA Pneumonia with sepsis Acute exacerbation of chronic obstructive pulmonary disease Acute on chronic systolic congestive heart failure exacerbation Elevated troponins Acute anemia secondary to chronic blood loss and suspected lower GI bleed Chronic atrial fibrillation Diabetes mellitus insulin-dependent Acute on chronic hypoxic respiratory failure Obesity hypoventilation Plan Medications have been reviewed and will be continued as ordered. Cardiology and ID is also on consult. Continues in contact per cautioned her MRSA in the sputum. Potassium replacement per protocol. Chest xray ordered. Continue with supportive care. We will continue to monitor labs/results and adjust treatment as necessary. I performed an examination of the patient and discussed their management with the nurse practitioner. I have reviewed the nurse practitioner's note and agree with the documented findings and plan of care.
[2016-06-03] MEDS: IPRATROPIUM-ALBUTEROL 3 ML NEB INHALATION SCH ×4 (09:59→20:35)
[2016-06-03] MEDS: BUDESONIDE 1 MG/2 ML NEBU INHALATION SCH ×2 (09:59→20:35)
--- NOTE | 2016-06-03 10:21 | P.PN ---
Subjective Patient being treated for pneumonia with sepsis and CHF exacerbation. Patient also has a left groin seroma. Both sputum culture and wound culture growing MRSA. Currently on IV vancomycin. Underwent bronchoscopy yesterday. Reports improvement in her shortness of breath. Denies any chest pain. Denies any nausea or vomiting. Last bowel movement about 3 days ago. Denies any difficulty urinating. Patient is very weak and having difficulty with ambulating. Was working with physical therapy and did slide to the floor. No loss of consciousness. She is complaining of pain in the left leg which is slightly worse. Pain medication does help. Objective - Vital Signs Vital signs: Vital Signs Temp 98.3 F 06/03/16 08:30 Pulse 92 06/03/16 09:59 Resp 20 06/03/16 08:30 BP 130/75 06/03/16 08:30 Pulse Ox 93 L 06/03/16 08:30 Intake & Output 06/02/16 06/03/16 06/03/16 18:59 06:59 18:59 Intake Total 310 240 Output Total 500 700 Balance -190 -700 240 Weight 112 kg Intake: IV 100 Oral 210 240 Output: Urine 500 700 Other: Voiding Method Bedpan Bedpan # Voids 1 1 # Bowel Movements 0 - Exam Head normocephalic Neck supple Lungs coarse breath sounds with crackles on the right. Heart regular rate and rhythm S1-S2, no rub or gallop Abdomen is soft nontender nondistended positive bowel sounds no hepatosplenomegaly Extremities no edema Neuro alert and orientated to 3 - Labs CBC & Chem 7: 06/03/16 05:50 06/03/16 05:50 Labs: Abnormal Lab Results - Last 24 Hours (Table) 06/02/16 06/02/16 06/02/16 Range/Units 12:21 13:22 13:22 WBC (3.8-10.6) k/uL RBC (3.80-5.40) m/uL Hgb (11.4-16.0) gm/dL Hct (34.0-46.0) % MCHC (31.0-37.0) g/dL RDW (11.5-15.5) % Neutrophils # (1.3-7.7) k/uL Lymphocytes # (1.0-4.8) k/uL PT 20.5 H (9.0-12.0) sec Carbon Dioxide (22-30) mmol/L BUN 27 H (7-17) mg/dL Glucose 141 H (74-99) mg/dL POC Glucose (mg/dL) 124 H (75-99) mg/dL Calcium 8.3 L (8.4-10.2) mg/dL Total Protein 5.8 L (6.3-8.2) g/dL Albumin 2.6 L (3.5-5.0) g/dL 06/02/16 06/02/16 06/02/16 Range/Units 13:22 17:05 21:09 WBC 18.6 H (3.8-10.6) k/uL RBC 3.44 L (3.80-5.40) m/uL Hgb 8.7 L (11.4-16.0) gm/dL Hct 30.9 L (34.0-46.0) % MCHC 28.1 L (31.0-37.0) g/dL RDW 19.4 H (11.5-15.5) % Neutrophils # 17.1 H (1.3-7.7) k/uL Lymphocytes # 0.9 L (1.0-4.8) k/uL PT (9.0-12.0) sec Carbon Dioxide (22-30) mmol/L BUN (7-17) mg/dL Glucose (74-99) mg/dL POC Glucose (mg/dL) 186 H 198 H (75-99) mg/dL Calcium (8.4-10.2) mg/dL Total Protein (6.3-8.2) g/dL Albumin (3.5-5.0) g/dL 06/03/16 06/03/16 06/03/16 Range/Units 05:50 05:50 05:50 WBC 15.0 H (3.8-10.6) k/uL RBC 3.17 L (3.80-5.40) m/uL Hgb 7.9 L (11.4-16.0) gm/dL Hct 28.3 L (34.0-46.0) % MCHC 28.0 L (31.0-37.0) g/dL RDW 20.0 H (11.5-15.5) % Neutrophils # 12.6 H (1.3-7.7) k/uL Lymphocytes # (1.0-4.8) k/uL PT 22.4 H (9.0-12.0) sec Carbon Dioxide 32 H (22-30) mmol/L BUN 32 H (7-17) mg/dL Glucose 100 H (74-99) mg/dL POC Glucose (mg/dL) (75-99) mg/dL Calcium 8.3 L (8.4-10.2) mg/dL Total Protein 5.2 L (6.3-8.2) g/dL Albumin 2.4 L (3.5-5.0) g/dL 06/03/16 Range/Units 06:12 WBC (3.8-10.6) k/uL RBC (3.80-5.40) m/uL Hgb (11.4-16.0) gm/dL Hct (34.0-46.0) % MCHC (31.0-37.0) g/dL RDW (11.5-15.5) % Neutrophils # (1.3-7.7) k/uL Lymphocytes # (1.0-4.8) k/uL PT (9.0-12.0) sec Carbon Dioxide (22-30) mmol/L BUN (7-17) mg/dL Glucose (74-99) mg/dL POC Glucose (mg/dL) 111 H (75-99) mg/dL Calcium (8.4-10.2) mg/dL Total Protein (6.3-8.2) g/dL Albumin (3.5-5.0) g/dL Microbiology - Last 24 Hours (Table) 06/02/16 14:30 Gram Stain - Preliminary Bronchial Washings - Right Bronchial Washings Culture - Preliminary 06/02/16 14:30 Fungal Culture - Preliminary Bronchial Washings - Right 06/02/16 14:30 Acid Fast Bacilli Culture - Preliminary Bronchial Washings - Right Assessment and Plan Plan: 1. MRSA Pneumonia with sepsis: Chest x-ray showing cardiomegaly with peripheral vascular congestion and patchy density in the right lower lobe. Also elevated temp of 102, white count 16.4 and lactic acid of 2.1. Patient followed by infectious disease and pulmonary. Patient has PICC line. Continue with IV vancomycin. Patient is status post bronchoscopy. Awaiting final bronchorrhea results. 2. Acute on chronic systolic CHF exacerbation. Most recent echo shows an EF of 40-45%. BNP elevated in the 3000's. Chest x-ray showing peripheral vascular congestion. Evaluated by cardiology service. Continue Lasix 40 mg by mouth twice a day 3. Cardiac causes. Continue with telemetry monitoring. Evaluated by cardiology and medications adjusted 4. Possible phlebitis of the left arm: Left arm pain and swelling bruising and firmness at old IV site. Showed improvement. Doppler shows no evidence of DVT. There was evidence of SVT. Keep arm elevated 5. Elevated troponin with no chest pain. Evaluated by cardiology 6. Acute anemia secondary to chronic blood loss and suspected lower GI bleed. Hemoglobin is 7.9. Was unable to have a colonoscopy during last admission due to multiple complications. She had a EGD last month at [facility] that was unremarkable. We'll continue to monitor hemoglobin. 7. Chronic atrial fibrillation maintained on Coumadin for anticoagulation. INR therapeutic. We'll start Coumadin 2 mg daily. 8. History of COPD: Continue with nebulizer treatments. 9. Diabetes mellitus insulin-dependent: Resume her Levemir and NovoLog. Continue sliding scale coverage. Hemoglobin A1c of 7.2 10. Left groin seroma: Wound culture growing MRSA. Continue vancomycin. Continue wound care. 11. Severe protein calorie malnutrition: Continue with protein supplements GI prophylaxis Protonix and DVT prophylaxis Coumadin When patient is medically stable she'll be discharged back to [facility] Transfer patient to regular medical floor
[2016-06-03] MEDS ORDERED: LACTULOSE 20 GM/30 ML CUP PO ONE (10:45)
[2016-06-03 12:00] LABS: Glucose,Whole Blood 196 mg/dL (75-99)
--- NOTE | 2016-06-03 12:11 | XR ---
EXAMINATION TYPE: XR chest 2V DATE OF EXAM: 06/03/2016 12:04 PM COMPARISON: 06/01/2016 HISTORY: Shortness of breath FINDINGS: There are bilateral pleural effusions with cardiomegaly and bibasilar infiltrate. There is a diffuse interstitial pattern. Left-sided PICC line seen. Calcified granuloma left upper lobe. Atheroscleroti c change aorta. Stimulator device noted. Correlate for underlying COPD IMPRESSION: 1. Findings most typical of CHF. Underlying pneumonia at the lung bases not excluded correlate clinic ally. Mild progression of the right lung base.
[2016-06-03] MEDS: VANCOMYCIN 1,500 MG in SODIUM CHLORIDE 0.9% 250 ML IVPB SCH (12:58)
[2016-06-03] MEDS: LACTATED RINGERS 1,000 ML IV SCH (12:59)
[2016-06-03 15:11] LABS: % Iron Saturation 12.2 % (20-50)
[2016-06-03 17:04] LABS: Glucose,Whole Blood 287 mg/dL (75-99)
[2016-06-03] MEDS: WARFARIN 2 MG TAB PO SCH (18:45)
[2016-06-03] MEDS: PRAVASTATIN SODIUM 20 MG TAB PO SCH (20:15)
[2016-06-03] MEDS: LOSARTAN 50 MG TAB PO SCH (20:15)
[2016-06-03] MEDS: MONTELUKAST 10 MG TAB PO SCH (20:15)
[2016-06-03 20:47] LABS: Glucose,Whole Blood 305 mg/dL (75-99)
--- NOTE | 2016-06-03 21:51 | P.PN ---
Subjective Principal diagnosis: Shortness of breath 76-year-old female who has an extensive hospitalization currently at 7 days of admission but actually it's been longer than that due to her short hiatus out of the hospital. She was deemed medically stable to be to leave the hospital to attend her 's this occurred while she has been so ill. The patient was admitted with severe shortness of breath from the extended care facility she was being cared for after her gastrointestinal bleeding and worsening of her underlying pulmonary disease. The patient does have severe underlying pulmonary disease and wears oxygen at all times and does use a CPAP at night because of her sleep apnea. Recently this has definitely been worse and because of concerns to ongoing pneumonia the infectious diseases consultation was requested This patient relates she just feeling slightly better than when she was first admitted. She was having difficulties that time also with her lower extremity and the left. She was seen by vascular surgery and a large clot was noted and a thrombectomy , endarterectomy and patch angioplasty was performed of the left arterial system, large clot was seen. Patient relates that her leg continues to feel okay. She's having improved shortness of breath today. She is having less cough and sputum production is able to speak in sentences because she is so less short of breath. Patient had bronchoscopy today. She found this is deftly helping her breathing. She is less short of breath. She's felt in a while. Objective - Vital Signs Vital signs: Vital Signs Temp 97.7 F 06/03/16 20:00 Pulse 92 06/03/16 20:55 Resp 19 06/03/16 20:00 BP 130/79 06/03/16 20:00 Pulse Ox 95 06/03/16 20:00 Intake & Output 06/03/16 06/03/16 06/04/16 06:59 18:59 06:59 Intake Total 1020 Output Total 700 325 Balance -700 695 Weight 112 kg Intake: IV 60 0.9 NS @ 10cc/hr 60 Intake, IV Titration 240 Amount Vancomycin 1,500 mg In 240 Sodium Chloride 0.9% 250 ml @ 125 mls/hr IVPB Q16H [facility] Rx#:[id number] Oral 720 Output: Urine 700 325 Other: Voiding Method Bedpan Bedpan Bedpan # Voids 1 2 # Emeses 0 - Exam 76-year-old woman who relates she is feeling less short of breath but appears to still be short of breath HEENT: Anicteric conjunctiva are pink and moist nasal mucosa grossly intact without significant lesions, there is no thrush. Worn dentition Neck: The neck is supple without significant lymphadenopathy or thyromegaly. Lungs: Symmetrical air entry is noted. Wheezes throughout the lung olivares are noted. Bibasilar crackles are heard right greater than left no dullness is noted minimal egophony to the right base is noted Heart: Regular rate and rhythm with an audible S1-S2, no S3 no S4. There is no significant murmur click or rub, PMI was nondisplaced. Abdomen: Obese, Positive bowel sounds soft and nontender without palpable masses or organomegaly. There was no guarding or rebound. Extremities: The upper and lower extremity is have some generalized edema. However no open ulcerations are seen. The entry site for the thrombectomy is without bleeding drainage or evidence of infection or tenderness Neuro: Awake alert oriented to person place and time. There are no acute new gross focal sensory motor deficits. She has significant generalized weakness though - Labs CBC & Chem 7: 06/03/16 05:50 06/03/16 05:50 Labs: Abnormal Lab Results - Last 24 Hours (Table) 06/03/16 06/03/16 06/03/16 Range/Units 05:50 05:50 05:50 WBC 15.0 H (3.8-10.6) k/uL RBC 3.17 L (3.80-5.40) m/uL Hgb 7.9 L (11.4-16.0) gm/dL Hct 28.3 L (34.0-46.0) % MCHC 28.0 L (31.0-37.0) g/dL RDW 20.0 H (11.5-15.5) % Neutrophils # 12.6 H (1.3-7.7) k/uL PT 22.4 H (9.0-12.0) sec Carbon Dioxide 32 H (22-30) mmol/L BUN 32 H (7-17) mg/dL Glucose 100 H (74-99) mg/dL POC Glucose (mg/dL) (75-99) mg/dL Calcium 8.3 L (8.4-10.2) mg/dL Iron (37-170) ug/dL TIBC (265-497) ug/dL % Saturation (20-50) % Total Protein 5.2 L (6.3-8.2) g/dL Albumin 2.4 L (3.5-5.0) g/dL 06/03/16 06/03/16 06/03/16 Range/Units 05:50 06:12 11:58 WBC (3.8-10.6) k/uL RBC (3.80-5.40) m/uL Hgb (11.4-16.0) gm/dL Hct (34.0-46.0) % MCHC (31.0-37.0) g/dL RDW (11.5-15.5) % Neutrophils # (1.3-7.7) k/uL PT (9.0-12.0) sec Carbon Dioxide (22-30) mmol/L BUN (7-17) mg/dL Glucose (74-99) mg/dL POC Glucose (mg/dL) 111 H 196 H (75-99) mg/dL Calcium (8.4-10.2) mg/dL Iron 29 L (37-170) ug/dL TIBC 238 L (265-497) ug/dL % Saturation 12.2 L (20-50) % Total Protein (6.3-8.2) g/dL Albumin (3.5-5.0) g/dL 06/03/16 06/03/16 Range/Units 16:59 20:46 WBC (3.8-10.6) k/uL RBC (3.80-5.40) m/uL Hgb (11.4-16.0) gm/dL Hct (34.0-46.0) % MCHC (31.0-37.0) g/dL RDW (11.5-15.5) % Neutrophils # (1.3-7.7) k/uL PT (9.0-12.0) sec Carbon Dioxide (22-30) mmol/L BUN (7-17) mg/dL Glucose (74-99) mg/dL POC Glucose (mg/dL) 287 H 305 H (75-99) mg/dL Calcium (8.4-10.2) mg/dL Iron (37-170) ug/dL TIBC (265-497) ug/dL % Saturation (20-50) % Total Protein (6.3-8.2) g/dL Albumin (3.5-5.0) g/dL Microbiology - Last 24 Hours (Table) 05/30/16 00:30 Anaerobic Culture - Final Groin 06/02/16 14:30 Gram Stain - Preliminary Bronchial Washings - Right Bronchial Washings Culture - Preliminary 06/02/16 14:30 Fungal Culture - Preliminary Bronchial Washings - Right 06/02/16 14:30 Acid Fast Bacilli Culture - Preliminary Bronchial Washings - Right Assessment and Plan (1) MRSA pneumonia Narrative/Plan: 76-year-old female who has multiple medical troubles occluding underlying significant cardiovascular disease, chronic pulmonary disease with oxygen dependence as well as sleep apnea presents to Hospital profoundly ill from the extended care facility. Apparently hospitalized for she had difficulties with gastrointestinal bleeding. During this stay she's had difficulties with congestive heart failure, exacerbation of COPD, extensive thrombus to the left leg requiring thrombectomy and endarterectomy. Patient relates is feeling just slightly better today. Review of the previous culture reveals evidence she does have evidence of the sputum culture with evidence of MRSA present. It does appear to be levofloxacin resistant. She was initiated vancomycin therapy. Is now having improvement within the last day. Vancomycin therapy will continue. Likely would treat her for the next 14 days. We'll request her vascular surgeon for IV access, or PICC line if he agrees. We'll monitor response to current antibiotic therapy. We'll likely need to complete a course of this time of her transfer back to [facility]. A bronchoscopy today with further improvement. The left leg is improving with antibiotic therapy and local care She does not have any significant urinary symptoms. Status: Acute (2) Chronic a-fib Status: Acute (3) Acute blood loss anemia Status: Acute (4) Leukocytosis Status: Acute
[2016-06-04] MEDS ORDERED: VANCOMYCIN TROUGH DUE 1 EACH MISC MISCELLANE ONE (03:00)
[2016-06-04] MEDS: VANCOMYCIN 1,500 MG in SODIUM CHLORIDE 0.9% 250 ML IVPB SCH (05:37)
[2016-06-04 05:56] LABS: Glucose,Whole Blood 87 mg/dL (75-99)
[2016-06-04] MEDS: INSULIN LISPRO (humaLOG) 300 UNIT/3 ML VIAL SQ SCH ×4 (06:21→21:15)
[2016-06-04] MEDS: PANTOPRAZOLE 40 MG TABLET PO SCH (06:22)
[2016-06-04 06:52] LABS: Anisocytosis Slight; Basophils % (A) 0 %; CHCM 27.8; Eosinophils % (A) 0 %; HGB 7.9 gm/dL (11.4-16.0); Hypochromasia Marked; Luc # (Auto) 0.18; Luc % (Auto) 1; Lymphocytes # (A) 1.5 k/uL (1.0-4.8); Lymphocytes % (A) 12 %; MCH 25.5 pg (25.0-35.0); MCHC 28.3 g/dL (31.0-37.0); MCV 89.9 fL (80.0-100.0); Mean Platelet Volume 7.2; Monocytes # (A) 0.3 k/uL (0-1.0); Monocytes % (A) 3 %; Neutrophils # (A) 10.8 k/uL (1.3-7.7); Neutrophils % (A) 84 %; Poikilocytosis Slight; RBC 3.11 m/uL (3.80-5.40); RDW 19.9 % (11.5-15.5); WBC 12.9 k/uL (3.8-10.6); WBC (Perox) 13.45
[2016-06-04 06:59] LABS: INR 3.3 (<1.1); Prothrombin Time 31.8 sec (9.0-12.0)
[2016-06-04 07:10] LABS: ALT 31 U/L (9-52); AST 16 U/L (14-36); Alkaline Phosphatase 51 U/L (38-126); Anion Gap 9 mmol/L; Blood Urea Nitrogen 43 mg/dL (7-17); Calcium 8.2 mg/dL (8.4-10.2); Carbon Dioxide 29 mmol/L (22-30); Chloride 103 mmol/L (98-107); Glucose 71 mg/dL (74-99); Non-African American GFR(MDRD) >60 (>60 ml/min/1.73 sqM); Potassium 3.8 mmol/L (3.5-5.1); Sodium 141 mmol/L (137-145); Total Bilirubin 0.2 mg/dL (0.2-1.3); Total Protein 5.5 g/dL (6.3-8.2)
[2016-06-04] MEDS: HYDROcodone/APAP 10-325MG 1 EACH TAB PO PRN ×4 (08:11→22:34)
[2016-06-04] MEDS: IPRATROPIUM-ALBUTEROL 3 ML NEB INHALATION SCH ×4 (08:28→20:24)
[2016-06-04] MEDS: BUDESONIDE 1 MG/2 ML NEBU INHALATION SCH ×2 (08:28→20:24)
--- NOTE | 2016-06-04 09:23 | P.PN ---
Subjective This is a 76-year-old female patient who is being evaluated and examined today on the sixth floor. This patient is well-known to our service. This patient recently was hospitalized in April with a left leg ischemia status post thrombectomy, pneumonia, COPD exacerbation, GI bleed, and CHF exacerbation. The patient was subsequently discharged to [facility]. She came back to the emergency room with some shortness of breath, cough, fever, generalized weakness and lethargy. She also states that she had been having some difficulty with urination. The patient was admitted with pneumonia, bronchospasms, acute hypoxia, chronic anemia, free bilateral illness and elevated troponins. The patient is known to have chronic hypoxia and uses 3 L of oxygen at the rehab facility as well and she wears CPAP for obstructive sleep apnea. The patient underwent a bronchoscopy yesterday with Dr. Pittman. The patient had extensive amount of purulent secretions that were aspirated from both lungs, and both lungs appear to be plugged, patient tolerated procedure well. Patient states she feels significantly better post procedure. Upon examination the patient is resting in bed up on 3 L of oxygen via nasal cannula, which is her baseline. She continues to have shortness of breath with exertion, however this has improved. Continues with chronic cough, occasionally productive with clear phlegm. She feels her breathing is better today compared to previous. Patient states it is also easier to cough up any secreations. She continues to use both her flutter valve and her incentive spirometer regularly. Objective - Vital Signs Vital signs: Vital Signs Temp 97.6 F 06/04/16 08:51 Pulse 100 06/04/16 08:51 Resp 18 06/04/16 08:51 BP 152/64 06/04/16 08:51 Pulse Ox 88 L 06/04/16 08:51 Intake & Output 06/03/16 06/04/16 06/04/16 18:59 06:59 18:59 Intake Total 1020 Output Total 325 300 Balance 695 -300 Weight 114 kg Intake: IV 60 0.9 NS @ 10cc/hr 60 Intake, IV Titration 240 Amount Vancomycin 1,500 mg In 240 Sodium Chloride 0.9% 250 ml @ 125 mls/hr IVPB Q16H [facility] Rx#:[id number] Oral 720 Output: Urine 325 300 Other: Voiding Method Bedpan Bedpan Bedpan # Voids 2 1 # Emeses 0 - Exam GENERAL EXAM: Alert, active, comfortable in no apparent distress. HEAD: Normocephalic. EYES: Normal reaction of pupils, equal size. NOSE: Clear with pink turbinates. THROAT: No erythema or exudates. NECK: No masses, no JVD. CHEST: No chest wall deformity. LUNGS: Lungs noted to be bilaterally coarse, with few faint rhonchi. Significantly improved CVS: S1 and S2 normal with no audible mumurs, regular rhythm. ABDOMEN: No hepatosplenomegaly, normal bowel sounds, no guarding or rigidity. EXTREMITIES: Trace edema noted, pedal pulses palpable. SKIN: No rashes CENTRAL NERVOUS SYSTEM: No focal deficits, tone is normal in all 4 extremities. - Labs CBC & Chem 7: 06/04/16 05:56 06/04/16 05:56 Labs: Abnormal Lab Results - Last 24 Hours (Table) 06/03/16 06/03/16 06/03/16 Range/Units 05:50 11:58 16:59 WBC (3.8-10.6) k/uL RBC (3.80-5.40) m/uL Hgb (11.4-16.0) gm/dL Hct (34.0-46.0) % MCHC (31.0-37.0) g/dL RDW (11.5-15.5) % Neutrophils # (1.3-7.7) k/uL PT (9.0-12.0) sec BUN (7-17) mg/dL Glucose (74-99) mg/dL POC Glucose (mg/dL) 196 H 287 H (75-99) mg/dL Calcium (8.4-10.2) mg/dL Iron 29 L (37-170) ug/dL TIBC 238 L (265-497) ug/dL % Saturation 12.2 L (20-50) % Total Protein (6.3-8.2) g/dL Albumin (3.5-5.0) g/dL 06/03/16 06/04/16 06/04/16 Range/Units 20:46 05:56 05:56 WBC 12.9 H (3.8-10.6) k/uL RBC 3.11 L (3.80-5.40) m/uL Hgb 7.9 L (11.4-16.0) gm/dL Hct 28.0 L (34.0-46.0) % MCHC 28.3 L (31.0-37.0) g/dL RDW 19.9 H (11.5-15.5) % Neutrophils # 10.8 H (1.3-7.7) k/uL PT 31.8 H (9.0-12.0) sec BUN (7-17) mg/dL Glucose (74-99) mg/dL POC Glucose (mg/dL) 305 H (75-99) mg/dL Calcium (8.4-10.2) mg/dL Iron (37-170) ug/dL TIBC (265-497) ug/dL % Saturation (20-50) % Total Protein (6.3-8.2) g/dL Albumin (3.5-5.0) g/dL 06/04/16 Range/Units 05:56 WBC (3.8-10.6) k/uL RBC (3.80-5.40) m/uL Hgb (11.4-16.0) gm/dL Hct (34.0-46.0) % MCHC (31.0-37.0) g/dL RDW (11.5-15.5) % Neutrophils # (1.3-7.7) k/uL PT (9.0-12.0) sec BUN 43 H (7-17) mg/dL Glucose 71 L (74-99) mg/dL POC Glucose (mg/dL) (75-99) mg/dL Calcium 8.2 L (8.4-10.2) mg/dL Iron (37-170) ug/dL TIBC (265-497) ug/dL % Saturation (20-50) % Total Protein 5.5 L (6.3-8.2) g/dL Albumin 2.5 L (3.5-5.0) g/dL Microbiology - Last 24 Hours (Table) 06/02/16 14:30 Acid Fast Bacilli Smear - Final Bronchial Washings - Right Acid Fast Bacilli Culture - Preliminary 05/30/16 00:30 Anaerobic Culture - Final Groin Assessment and Plan Plan: assessment MRSA Pneumonia with sepsis Acute exacerbation of chronic obstructive pulmonary disease Acute on chronic systolic congestive heart failure exacerbation Elevated troponins Acute anemia secondary to chronic blood loss and suspected lower GI bleed Chronic atrial fibrillation Diabetes mellitus insulin-dependent Acute on chronic hypoxic respiratory failure Obesity hypoventilation Plan From pulmonology standpoint we do agree with discharge back to the rehabilitation center in the near future. Medications have been reviewed and will be continued as ordered. Cardiology and ID is also on consult. Continues in contact per cautioned her MRSA in the sputum. Potassium replacement per protocol. Continue with supportive care. We will continue to monitor labs/ results and adjust treatment as necessary. I performed an examination of the patient and discussed their management with the nurse practitioner. I have reviewed the nurse practitioner's note and agree with the documented findings and plan of care.
[2016-06-04] MEDS: ALPRAZolam 0.25 MG TAB PO SCH ×2 (10:03→21:05)
[2016-06-04] MEDS: FERROUS SULFATE 325 MG TAB PO SCH ×2 (10:04→21:05)
[2016-06-04] MEDS: FUROSEMIDE 40 MG TAB PO SCH ×2 (10:04→16:13)
[2016-06-04] MEDS: guaiFENesin 600 MG TABLET.ER PO SCH ×2 (10:04→21:06)
[2016-06-04] MEDS: DOCUSATE 100 MG CAP PO SCH ×2 (10:04→21:05)
[2016-06-04] MEDS: INSULIN DETEMIR 100 UNIT/ML 10 ML VIAL SQ SCH ×2 (10:05→21:15)
[2016-06-04] MEDS: predniSONE 20 MG TAB PO SCH (10:06)
[2016-06-04] MEDS: METOPROLOL SUCCINATE (ER) 100 MG TAB.ER.24H PO SCH ×2 (10:06→21:06)
[2016-06-04] MEDS ORDERED: SODIUM FERRIC GLUCONAT-SUCROSE 125 MG in SODIUM CHLORIDE 0.9% 100 ML IVPB ONE (12:00)
[2016-06-04 12:13] LABS: Glucose,Whole Blood 148 mg/dL (75-99)
[2016-06-04] MEDS ORDERED: LACTULOSE 20 GM/30 ML CUP PO ONE (12:14)
[2016-06-04] MEDS: LACTATED RINGERS 1,000 ML IV SCH (12:17)
--- NOTE | 2016-06-04 12:20 | P.PN ---
Subjective Patient being treated for pneumonia with sepsis and CHF exacerbation. Patient also has a left groin seroma. Both sputum culture and wound culture growing MRSA. Currently on IV vancomycin. Had bronchoscopy during this admission. Reports improvement in her shortness of breath. Denies any chest pain. Denies any nausea or vomiting. Last bowel movement about 3 days ago. Denies any difficulty urinating. Patient is very weak and having difficulty with ambulating. Patient hemoglobin 7.9. She will receive a dose of IV Venofer. Patient shouldn 't does not feel ready for discharge yet. She'll be transferred to a regular medical floor. Objective - Vital Signs Vital signs: Vital Signs Temp 97.6 F 06/04/16 08:51 Pulse 88 06/04/16 11:57 Resp 18 06/04/16 08:51 BP 152/64 06/04/16 08:51 Pulse Ox 92 L 06/04/16 09:29 Intake & Output 06/03/16 06/04/16 06/04/16 18:59 06:59 18:59 Intake Total 1020 40 Output Total 325 300 Balance 695 -300 40 Weight 114 kg Intake: IV 60 40 0.9 NS @ 10cc/hr 60 40 Intake, IV Titration 240 Amount Vancomycin 1,500 mg In 240 Sodium Chloride 0.9% 250 ml @ 125 mls/hr IVPB Q16H [facility] Rx#:[id number] Oral 720 Output: Urine 325 300 Other: Voiding Method Bedpan Bedpan Bedpan # Voids 2 1 # Emeses 0 - Exam Head normocephalic Neck supple Lungs coarse breath sounds with crackles on the right. Heart regular rate and rhythm S1-S2, no rub or gallop Abdomen is soft nontender nondistended positive bowel sounds no hepatosplenomegaly Extremities no edema Neuro alert and orientated to 3 - Labs CBC & Chem 7: 06/04/16 05:56 06/04/16 05:56 Labs: Abnormal Lab Results - Last 24 Hours (Table) 06/03/16 06/03/16 06/03/16 Range/Units 05:50 16:59 20:46 WBC (3.8-10.6) k/uL RBC (3.80-5.40) m/uL Hgb (11.4-16.0) gm/dL Hct (34.0-46.0) % MCHC (31.0-37.0) g/dL RDW (11.5-15.5) % Neutrophils # (1.3-7.7) k/uL PT (9.0-12.0) sec BUN (7-17) mg/dL Glucose (74-99) mg/dL POC Glucose (mg/dL) 287 H 305 H (75-99) mg/dL Calcium (8.4-10.2) mg/dL Iron 29 L (37-170) ug/dL TIBC 238 L (265-497) ug/dL % Saturation 12.2 L (20-50) % Total Protein (6.3-8.2) g/dL Albumin (3.5-5.0) g/dL 06/04/16 06/04/16 06/04/16 Range/Units 05:56 05:56 05:56 WBC 12.9 H (3.8-10.6) k/uL RBC 3.11 L (3.80-5.40) m/uL Hgb 7.9 L (11.4-16.0) gm/dL Hct 28.0 L (34.0-46.0) % MCHC 28.3 L (31.0-37.0) g/dL RDW 19.9 H (11.5-15.5) % Neutrophils # 10.8 H (1.3-7.7) k/uL PT 31.8 H (9.0-12.0) sec BUN 43 H (7-17) mg/dL Glucose 71 L (74-99) mg/dL POC Glucose (mg/dL) (75-99) mg/dL Calcium 8.2 L (8.4-10.2) mg/dL Iron (37-170) ug/dL TIBC (265-497) ug/dL % Saturation (20-50) % Total Protein 5.5 L (6.3-8.2) g/dL Albumin 2.5 L (3.5-5.0) g/dL 06/04/16 Range/Units 12:05 WBC (3.8-10.6) k/uL RBC (3.80-5.40) m/uL Hgb (11.4-16.0) gm/dL Hct (34.0-46.0) % MCHC (31.0-37.0) g/dL RDW (11.5-15.5) % Neutrophils # (1.3-7.7) k/uL PT (9.0-12.0) sec BUN (7-17) mg/dL Glucose (74-99) mg/dL POC Glucose (mg/dL) 148 H (75-99) mg/dL Calcium (8.4-10.2) mg/dL Iron (37-170) ug/dL TIBC (265-497) ug/dL % Saturation (20-50) % Total Protein (6.3-8.2) g/dL Albumin (3.5-5.0) g/dL Microbiology - Last 24 Hours (Table) 06/02/16 14:30 Gram Stain - Preliminary Bronchial Washings - Right Bronchial Washings Culture - Preliminary Presumptive Staph aureus Gram Neg Bacilli 06/02/16 14:30 Acid Fast Bacilli Smear - Final Bronchial Washings - Right Acid Fast Bacilli Culture - Preliminary 05/30/16 00:30 Anaerobic Culture - Final Groin Assessment and Plan Plan: 1. MRSA Pneumonia with sepsis: Chest x-ray showing cardiomegaly with peripheral vascular congestion and patchy density in the right lower lobe. Also elevated temp of 102, white count 16.4 and lactic acid of 2.1. Patient followed by infectious disease and pulmonary. Patient has PICC line. Continue with IV vancomycin. Patient is status post bronchoscopy. Awaiting final bronchorrhea results. 2. Acute on chronic systolic CHF exacerbation. Most recent echo shows an EF of 40-45%. BNP elevated in the 3000's. Chest x-ray showing peripheral vascular congestion. Evaluated by cardiology service. Continue Lasix 40 mg by mouth twice a day 3. Cardiac causes. Continue with telemetry monitoring. Evaluated by cardiology and medications adjusted 4. Possible phlebitis of the left arm: Left arm pain and swelling bruising and firmness at old IV site. Showed improvement. Doppler shows no evidence of DVT. There was evidence of SVT. Keep arm elevated 5. Elevated troponin with no chest pain. Evaluated by cardiology 6. Acute anemia secondary to chronic blood loss and suspected lower GI bleed as well as iron deficiency anemia. Hemoglobin is 7.9. Patient received 1 dose of IV iron. And then will start ferrous sulfate urine 25 mg twice a day. Iron level low at 29. Was unable to have a colonoscopy during last admission due to multiple complications. She had a EGD last month at [facility] that was unremarkable. We'll continue to monitor hemoglobin. 7. Chronic atrial fibrillation maintained on Coumadin for anticoagulation. INR elevated at 3.3. Hold Coumadin today. Restart Coumadin tomorrow at 2 mg daily 8. History of COPD: Continue with nebulizer treatments. 9. Diabetes mellitus insulin-dependent: Resume her Levemir and NovoLog. Continue sliding scale coverage. Hemoglobin A1c of 7.2. Patient did have hypoglycemia this morning with a blood sugar of 71. We'll decrease her evening Levemir to 20 units at bedtime 10. Left groin seroma: Wound culture growing MRSA. Continue vancomycin. Continue wound care. 11. Severe protein calorie malnutrition: Continue with protein supplements 12. Constipation: Continue Colace. We'll give 1 dose of lactulose and add MiraLAX. Last BM 3 days ago. GI prophylaxis Protonix and DVT prophylaxis Coumadin [facility].
[2016-06-04 17:06] LABS: Glucose,Whole Blood 259 mg/dL (75-99)
--- NOTE | 2016-06-04 17:48 | P.PN ---
Subjective Principal diagnosis: Shortness of breath 76-year-old female who has an extensive hospitalization currently at 7 days of admission but actually it's been longer than that due to her short hiatus out of the hospital. She was deemed medically stable to be to leave the hospital to attend her 's this occurred while she has been so ill. The patient was admitted with severe shortness of breath from the extended care facility she was being cared for after her gastrointestinal bleeding and worsening of her underlying pulmonary disease. The patient does have severe underlying pulmonary disease and wears oxygen at all times and does use a CPAP at night because of her sleep apnea. Recently this has definitely been worse and because of concerns to ongoing pneumonia the infectious diseases consultation was requested This patient relates she just feeling slightly better than when she was first admitted. She was having difficulties that time also with her lower extremity and the left. She was seen by vascular surgery and a large clot was noted and a thrombectomy , endarterectomy and patch angioplasty was performed of the left arterial system, large clot was seen. Patient relates that her leg continues to feel okay. She's having improved shortness of breath today. She is having less cough and sputum production is able to speak in sentences because she is so less short of breath. Patient had bronchoscopy. She found this is deftly helping her breathing. She is less short of breath. But is still making a large amount of sputum. Eating well. Objective - Vital Signs Vital signs: Vital Signs Temp 97.7 F 06/04/16 16:00 Pulse 90 06/04/16 16:27 Resp 16 06/04/16 16:00 BP 137/85 06/04/16 16:00 Pulse Ox 90 L 06/04/16 16:00 Intake & Output 06/03/16 06/04/16 06/04/16 18:59 06:59 18:59 Intake Total 1020 320 Output Total 325 300 400 Balance 695 -300 -80 Weight 114 kg Intake: IV 60 40 0.9 NS @ 10cc/hr 60 40 Intake, IV Titration 240 Amount Vancomycin 1,500 mg In 240 Sodium Chloride 0.9% 250 ml @ 125 mls/hr IVPB Q16H [facility] Rx#:[id number] Oral 720 280 Output: Urine 325 300 400 Other: Voiding Method Bedpan Bedpan Bedpan # Voids 2 1 # Emeses 0 - Exam 76-year-old woman who relates she is feeling less short of breath but appears to still be short of breath HEENT: Anicteric conjunctiva are pink and moist nasal mucosa grossly intact without significant lesions, there is no thrush. Worn dentition Neck: The neck is supple without significant lymphadenopathy or thyromegaly. Lungs: Symmetrical air entry is noted. Wheezes throughout the lung olivares are noted. Bibasilar crackles are heard right greater than left no dullness is noted minimal egophony to the right base is noted Heart: Regular rate and rhythm with an audible S1-S2, no S3 no S4. There is no significant murmur click or rub, PMI was nondisplaced. Abdomen: Obese, Positive bowel sounds soft and nontender without palpable masses or organomegaly. There was no guarding or rebound. Extremities: The upper and lower extremity is have some generalized edema. However no open ulcerations are seen. The entry site for the thrombectomy is without bleeding drainage or tenderness Neuro: Awake alert oriented to person place and time. There are no acute new gross focal sensory motor deficits. She has significant generalized weakness though - Labs CBC & Chem 7: 06/04/16 05:56 06/04/16 05:56 Labs: Abnormal Lab Results - Last 24 Hours (Table) 06/03/16 06/04/16 06/04/16 Range/Units 20:46 05:56 05:56 WBC 12.9 H (3.8-10.6) k/uL RBC 3.11 L (3.80-5.40) m/uL Hgb 7.9 L (11.4-16.0) gm/dL Hct 28.0 L (34.0-46.0) % MCHC 28.3 L (31.0-37.0) g/dL RDW 19.9 H (11.5-15.5) % Neutrophils # 10.8 H (1.3-7.7) k/uL PT 31.8 H (9.0-12.0) sec BUN (7-17) mg/dL Glucose (74-99) mg/dL POC Glucose (mg/dL) 305 H (75-99) mg/dL Calcium (8.4-10.2) mg/dL Total Protein (6.3-8.2) g/dL Albumin (3.5-5.0) g/dL 06/04/16 06/04/16 06/04/16 Range/Units 05:56 12:05 17:03 WBC (3.8-10.6) k/uL RBC (3.80-5.40) m/uL Hgb (11.4-16.0) gm/dL Hct (34.0-46.0) % MCHC (31.0-37.0) g/dL RDW (11.5-15.5) % Neutrophils # (1.3-7.7) k/uL PT (9.0-12.0) sec BUN 43 H (7-17) mg/dL Glucose 71 L (74-99) mg/dL POC Glucose (mg/dL) 148 H 259 H (75-99) mg/dL Calcium 8.2 L (8.4-10.2) mg/dL Total Protein 5.5 L (6.3-8.2) g/dL Albumin 2.5 L (3.5-5.0) g/dL Microbiology - Last 24 Hours (Table) 06/02/16 14:30 Gram Stain - Preliminary Bronchial Washings - Right Bronchial Washings Culture - Preliminary Presumptive Staph aureus Gram Neg Bacilli 06/02/16 14:30 Acid Fast Bacilli Smear - Final Bronchial Washings - Right Acid Fast Bacilli Culture - Preliminary Laboratory Results WBC 12.9 k/uL (3.8-10.6) H 06/04/16 05:56 RBC 3.11 m/uL (3.80-5.40) L 06/04/16 05:56 Hgb 7.9 gm/dL (11.4-16.0) L 06/04/16 05:56 Hct 28.0 % (34.0-46.0) L 06/04/16 05:56 MCV 89.9 fL (80.0-100.0) 06/04/16 05:56 MCH 25.5 pg (25.0-35.0) 06/04/16 05:56 MCHC 28.3 g/dL (31.0-37.0) L 06/04/16 05:56 RDW 19.9 % (11.5-15.5) H 06/04/16 05:56 Plt Count 237 k/uL (150-450) 06/04/16 05:56 Neutrophils % 84 % 06/04/16 05:56 Neutrophils % (Manual) 78.5 % 05/31/16 06:08 Lymphocytes % 12 % 06/04/16 05:56 Lymphocytes % (Manual) 13.5 % 05/31/16 06:08 Monocytes % 3 % 06/04/16 05:56 Monocytes % (Manual) 4.5 % 05/31/16 06:08 Eosinophils % 0 % 06/04/16 05:56 Eosinophils % (Manual) 0.5 % 05/31/16 06:08 Basophils % 0 % 06/04/16 05:56 Metamyelocytes % 2.0 % 05/31/16 06:08 Myelocytes % 1.0 % 05/31/16 06:08 Neutrophils # 10.8 k/uL (1.3-7.7) H 06/04/16 05:56 Neutrophils # (Manual) 8.8 k/uL (1.3-7.7) H 05/31/16 06:08 Lymphocytes # 1.5 k/uL (1.0-4.8) 06/04/16 05:56 Lymphocytes # (Manual) 1.5 k/uL (1.0-4.8) 05/31/16 06:08 Monocytes # 0.3 k/uL (0-1.0) 06/04/16 05:56 Monocytes # (Manual) 0.5 k/uL (0-1.0) 05/31/16 06:08 Eosinophils # 0.0 k/uL (0-0.7) 06/04/16 05:56 Eosinophils # (Manual) 0.1 k/uL (0-0.7) 05/31/16 06:08 Basophils # 0.0 k/uL (0-0.2) 06/04/16 05:56 Nucleated RBCs 0 /100 WBC (0-0) 05/31/16 06:08 Manual Slide Review Performed 05/31/16 06:08 Hypochromasia Marked 06/04/16 05:56 Poikilocytosis Slight 06/04/16 05:56 Anisocytosis Slight 06/04/16 05:56 PT 31.8 sec (9.0-12.0) H 06/04/16 05:56 INR 3.3 (<1.1) 06/04/16 05:56 APTT 27.1 sec (22.0-30.0) 05/19/16 10:05 Sodium 141 mmol/L (137-145) 06/04/16 05:56 Potassium 3.8 mmol/L (3.5-5.1) 06/04/16 05:56 Chloride 103 mmol/L (98-107) 06/04/16 05:56 Carbon Dioxide 29 mmol/L (22-30) 06/04/16 05:56 Anion Gap 9 mmol/L 06/04/16 05:56 BUN 43 mg/dL (7-17) H 06/04/16 05:56 Creatinine 0.90 mg/dL (0.52-1.04) 06/04/16 05:56 Est GFR (MDRD) Af Amer >60 (>60 ml/min/1.73 sqM) 06/04/16 05:56 Est GFR (MDRD) Non-Af >60 (>60 ml/min/1.73 sqM) 06/04/16 05:56 Glucose 71 mg/dL (74-99) L 06/04/16 05:56 POC Glucose (mg/dL) 259 mg/dL (75-99) H 06/04/16 17:03 POC Glu [employer] ID Gifty Esparza 06/04/16 17:[address] Glu mg/dL 166 mg/dL 05/23/16 07:03 Hemoglobin A1c 7.4 % (4.2-6.1) H 05/23/16 07:03 Plasma Lactic Acid Good 1.4 mmol/L (0.7-2.0) 05/19/16 13:51 Calcium 8.2 mg/dL (8.4-10.2) L 06/04/16 05:56 Phosphorus 4.0 mg/dL (2.5-4.5) 06/02/16 13:22 Magnesium 1.7 mg/dL (1.6-2.3) 06/02/16 13:22 Iron 29 ug/dL (37-170) L 06/03/16 05:50 TIBC 238 ug/dL (265-497) L 06/03/16 05:50 % Saturation 12.2 % (20-50) L 06/03/16 05:50 Ferritin 90 ng/mL (11-264) 06/03/16 05:50 Total Bilirubin 0.2 mg/dL (0.2-1.3) 06/04/16 05:56 AST 16 U/L (14-36) 06/04/16 05:56 ALT 31 U/L (9-52) 06/04/16 05:56 Alkaline Phosphatase 51 U/L (38-126) 06/04/16 05:56 Total Creatine Kinase <20 U/L (30-135) L 05/19/16 10:05 CK-MB (CK-2) <0.2 ng/mL (0.0-2.4) 05/19/16 10:05 CK-MB (CK-2) Rel Index 05/19/16 10:05 Troponin I 0.071 ng/mL (0.000-0.034) H* 05/19/16 10:05 NT-Pro-B Natriuret Pep 3920 pg/mL 05/20/16 09:00 Total Protein 5.5 g/dL (6.3-8.2) L 06/04/16 05:56 Albumin 2.5 g/dL (3.5-5.0) L 06/04/16 05:56 TSH 2.550 mIU/L (0.465-4.680) 05/21/16 06:30 Free T4 0.76 ng/dL (0.78-2.19) L 05/21/16 06:30 Urine Color Light Yellow 05/19/16 10:25 Urine Appearance Clear (Clear) 05/19/16 10:25 Urine pH 6.5 (5.0-8.0) 05/19/16 10:25 Ur Specific Plato 1.011 (1.001-1.035) 05/19/16 10:25 Urine Protein Trace (Negative) H 05/19/16 10:25 Urine Glucose (UA) Negative (Negative) 05/19/16 10:25 Urine Ketones Negative (Negative) 05/19/16 10:25 Urine Blood Negative (Negative) 05/19/16 10:25 Urine Nitrite Negative (Negative) 05/19/16 10:25 Urine Bilirubin Negative (Negative) 05/19/16 10:25 Urine Urobilinogen <2.0 mg/dL (<2.0) 05/19/16 10:25 Ur Leukocyte Esterase Negative (Negative) 05/19/16 10:25 Vancomycin Trough 27.6 ug/mL 06/04/16 02:45 Influenza Type A RNA Not Detected (Not Detectd) 05/19/16 10:05 Influenza Type B (PCR) Not Detected (Not Detectd) 05/19/16 10:05 Blood Type A Positive 05/23/16 09:33 Blood Type Recheck No 05/23/16 09:33 Antibody Screen NEGATIVE 05/23/16 09:33 Crossmatch See Detail 05/23/16 09:33 Spec Expiration Date 05/26/2016 - 2333 05/23/16 09:33 Microbiology 06/02/16 14:30 Bronchial Washings - Right Gram Stain - Preliminary 06/02/16 14:30 Bronchial Washings - Right Bronchial Washings Culture - Preliminary Presumptive Staph aureus Gram Neg Bacilli 06/02/16 14:30 Bronchial Washings - Right Acid Fast Bacilli Smear - Final 06/02/16 14:30 Bronchial Washings - Right Acid Fast Bacilli Culture - Preliminary 05/30/16 00:30 Groin Anaerobic Culture - Final 06/02/16 14:30 Bronchial Washings - Right Fungal Culture - Preliminary 05/30/16 00:30 Groin Gram Stain - Final 05/30/16 00:30 Groin Wound Culture - Final Methicillin resist S. aureus 05/30/16 01:40 Sputum Gram Stain - Final 05/30/16 01:40 Sputum Sputum Culture - Final Methicillin resist S. aureus 05/21/16 12:55 Blood Blood Culture - Final No Growth after 144 hours 05/19/16 10:05 Blood Blood Culture - Final No Growth after 144 hours Assessment and Plan (1) MRSA pneumonia Narrative/Plan: 76-year-old female who has multiple medical troubles occluding underlying significant cardiovascular disease, chronic pulmonary disease with oxygen dependence as well as sleep apnea presents to Hospital profoundly ill from the extended care facility. Apparently hospitalized for she had difficulties with gastrointestinal bleeding. During this stay she's had difficulties with congestive heart failure, exacerbation of COPD, extensive thrombus to the left leg requiring thrombectomy and endarterectomy. Patient relates is feeling just slightly better today. Review of the previous culture reveals evidence she does have evidence of the sputum culture with evidence of MRSA present. It does appear to be levofloxacin resistant. She was initiated vancomycin therapy. Is now having improvement within the last day. Vancomycin therapy will continue. Likely would treat her for the next 14 days. We'll request her vascular surgeon for IV access, or PICC line if he agrees. We'll monitor response to current antibiotic therapy. We'll likely need to complete a course of this time of her transfer back [facility]. A bronchoscopy was performed and is allowed her to have an improvement by pulmonary toileting. Still has a large amount of sputum but feels better. Culture is showing evidence of staph aureus likely the same MRSA she's had before. But now gram-negative bacilli is being found. With this we'll add an ceftaz into the vancomycin until we have final culture data. Went to the extended care facility for at least 2 weeks of antibiotic therapy The left leg is improving with antibiotic therapy and local care She does not have any significant urinary symptoms. Status: Acute (2) Chronic a-fib Status: Acute (3) Acute blood loss anemia Status: Acute (4) Leukocytosis Status: Acute
[2016-06-04] MEDS: MONTELUKAST 10 MG TAB PO SCH (21:06)
[2016-06-04] MEDS: PRAVASTATIN SODIUM 20 MG TAB PO SCH (21:06)
[2016-06-04] MEDS: LOSARTAN 50 MG TAB PO SCH (21:06)
[2016-06-04] MEDS: POLYETHYLENE GLYCOL 3350 17 GM POWD.PACK PO SCH (21:07)
[2016-06-04 21:35] LABS: Glucose,Whole Blood 294 mg/dL (75-99)
[2016-06-04] MEDS ORDERED: INSULIN LISPRO (humaLOG) 300 UNIT/3 ML VIAL SQ ONE (23:29)
[2016-06-05 07:31] LABS: Glucose,Whole Blood 110 mg/dL (75-99)
[2016-06-05] MEDS: INSULIN LISPRO (humaLOG) 300 UNIT/3 ML VIAL SQ SCH ×4 (07:45→22:47)
[2016-06-05] MEDS: predniSONE 20 MG TAB PO SCH (07:46)
[2016-06-05] MEDS: FUROSEMIDE 40 MG TAB PO SCH ×2 (07:46→17:03)
[2016-06-05] MEDS: METOPROLOL SUCCINATE (ER) 100 MG TAB.ER.24H PO SCH ×2 (07:46→20:46)
[2016-06-05] MEDS: guaiFENesin 600 MG TABLET.ER PO SCH ×2 (07:47→20:45)
[2016-06-05] MEDS: PANTOPRAZOLE 40 MG TABLET PO SCH (07:47)
[2016-06-05] MEDS: DOCUSATE 100 MG CAP PO SCH ×2 (07:47→20:45)
[2016-06-05] MEDS: INSULIN DETEMIR 100 UNIT/ML 10 ML VIAL SQ SCH ×2 (07:54→20:54)
[2016-06-05] MEDS: ALPRAZolam 0.25 MG TAB PO SCH ×2 (07:55→20:45)
[2016-06-05] MEDS: IPRATROPIUM-ALBUTEROL 3 ML NEB INHALATION SCH ×4 (08:18→19:55)
[2016-06-05] MEDS: BUDESONIDE 1 MG/2 ML NEBU INHALATION SCH ×2 (08:18→19:55)
[2016-06-05 08:33] LABS: INR 3.4 (<1.1); Prothrombin Time 33.1 sec (9.0-12.0)
[2016-06-05 08:41] LABS: ALT 27 U/L (9-52); AST 16 U/L (14-36); Alkaline Phosphatase 59 U/L (38-126); Anion Gap 11 mmol/L; Blood Urea Nitrogen 57 mg/dL (7-17); Calcium 8.3 mg/dL (8.4-10.2); Carbon Dioxide 27 mmol/L (22-30); Chloride 104 mmol/L (98-107); Glucose 85 mg/dL (74-99); Non-African American GFR(MDRD) 51 (>60 ml/min/1.73 sqM); Potassium 4.2 mmol/L (3.5-5.1); Sodium 142 mmol/L (137-145); Total Bilirubin 0.4 mg/dL (0.2-1.3); Total Protein 5.9 g/dL (6.3-8.2)
[2016-06-05] MEDS: HYDROcodone/APAP 10-325MG 1 EACH TAB PO PRN ×3 (09:00→20:53)
[2016-06-05] MEDS: FERROUS SULFATE 325 MG TAB PO SCH ×2 (11:26→20:45)
[2016-06-05 12:27] LABS: Glucose,Whole Blood 176 mg/dL (75-99)
[2016-06-05] MEDS: LACTATED RINGERS 1,000 ML IV SCH (13:06)
[2016-06-05] MEDS ORDERED: DIGOXIN 125 MCG TAB PO SCH (13:30)
[2016-06-05] MEDS ORDERED: FUROSEMIDE 10 MG/ML 2 ML VIAL IV ONE (14:26)
--- NOTE | 2016-06-05 15:39 | P.PN ---
Subjective No issues overnight. Heart rate not well controlled. Evaluated by cardiology. Digoxin added. Objective - Vital Signs Vital signs: Vital Signs Temp 96.9 F L 06/05/16 15:00 Pulse 104 H 06/05/16 15:00 Resp 20 06/05/16 15:00 BP 148/78 06/05/16 15:00 Pulse Ox 93 L 06/05/16 15:00 Intake & Output 06/04/16 06/05/16 06/05/16 18:59 06:59 18:59 Intake Total 320 240 Output Total 400 Balance -80 240 Intake: IV 40 0.9 NS @ 10cc/hr 40 Oral 280 240 Output: Urine 400 Other: Voiding Method Bedpan Bedpan Incontinent # Voids 0 2 - Exam General: The patient is awake and alert, in no distress Eye: there is normal conjunctiva bilaterally. Neck: The neck is supple, there is no JVD. Cardiovascular: Normal S1-S2, no S3-S4, no murmurs. Respiratory: Lungs clear to auscultation bilaterally Gastrointestinal: Abdomen is soft, nontender Musculoskeletal: There is no pedal edema. Neurological:. Speech is normal. Skin: Skin is warm and dry - Labs CBC & Chem 7: 06/04/16 05:56 06/05/16 08:11 Labs: Abnormal Lab Results - Last 24 Hours (Table) 06/04/16 06/04/16 06/05/16 Range/Units 17:03 21:15 06:49 PT (9.0-12.0) sec BUN (7-17) mg/dL Creatinine (0.52-1.04) mg/dL POC Glucose (mg/dL) 259 H 294 H 110 H (75-99) mg/dL Calcium (8.4-10.2) mg/dL Total Protein (6.3-8.2) g/dL Albumin (3.5-5.0) g/dL 06/05/16 06/05/16 06/05/16 Range/Units 08:11 08:11 12:25 PT 33.1 H (9.0-12.0) sec BUN 57 H (7-17) mg/dL Creatinine 1.05 H (0.52-1.04) mg/dL POC Glucose (mg/dL) 176 H (75-99) mg/dL Calcium 8.3 L (8.4-10.2) mg/dL Total Protein 5.9 L (6.3-8.2) g/dL Albumin 2.6 L (3.5-5.0) g/dL Microbiology - Last 24 Hours (Table) 06/02/16 14:30 Gram Stain - Final Bronchial Washings - Right Bronchial Washings Culture - Final Methicillin resist S. aureus Stenotrophomonas maltophilia Assessment and Plan Plan: 1. MRSA Pneumonia with sepsis: Chest x-ray showing cardiomegaly with peripheral vascular congestion and patchy density in the right lower lobe. Also elevated temp of 102, white count 16.4 and lactic acid of 2.1. Patient followed by infectious disease and pulmonary. Patient has PICC line. Continue with IV vancomycin. Patient is status post bronchoscopy. Awaiting final bronchorrhea results. 2. Acute on chronic systolic CHF exacerbation. Most recent echo shows an EF of 40-45%. BNP elevated in the 3000's. Chest x-ray showing peripheral vascular congestion. Evaluated by cardiology service. Continue Lasix 40 mg by mouth twice a day 3. Cardiac causes. Continue with telemetry monitoring. Evaluated by cardiology and medications adjusted 4. Possible phlebitis of the left arm: Left arm pain and swelling bruising and firmness at old IV site. Showed improvement. Doppler shows no evidence of DVT. There was evidence of SVT. Keep arm elevated 5. Elevated troponin with no chest pain. Evaluated by cardiology 6. Acute anemia secondary to chronic blood loss and suspected lower GI bleed as well as iron deficiency anemia. Patient received 1 dose of IV iron. And then will start ferrous sulfate urine 25 mg twice a day. Was unable to have a colonoscopy during last admission due to multiple complications. She had a EGD last month at [facility] that was unremarkable. We'll continue to monitor hemoglobin. 7. Chronic atrial fibrillation maintained on Coumadin for anticoagulation. INR elevated at 3.3. Hold Coumadin today. Restart Coumadin tomorrow at 2 mg daily 8. History of COPD: Continue with nebulizer treatments. 9. Diabetes mellitus insulin-dependent: Resume her Levemir and NovoLog. Continue sliding scale coverage. Hemoglobin A1c of 7.2. 10. Left groin seroma: Wound culture growing MRSA. Continue vancomycin. Continue wound care. 11. Severe protein calorie malnutrition: Continue with protein supplements 12. Constipation: continue current bowel regimen GI prophylaxis Protonix and DVT prophylaxis Coumadin Heart rate not well controlled. Evaluated by cardiology. Digoxin added to her regimen. Continue telemetry monitoring. Anticipate discharge to ECF on Tuesday.
--- NOTE | 2016-06-05 16:36 | P.PN ---
Subjective This is a 76-year-old female patient who is being evaluated and examined today on the sixth floor. This patient is well-known to our service. This patient recently was hospitalized in April with a left leg ischemia status post thrombectomy, pneumonia, COPD exacerbation, GI bleed, and CHF exacerbation. The patient was subsequently discharged to [facility]. She came back to the emergency room with some shortness of breath, cough, fever, generalized weakness and lethargy. She also states that she had been having some difficulty with urination. The patient was admitted with pneumonia, bronchospasms, acute hypoxia, chronic anemia, free bilateral illness and elevated troponins. The patient is known to have chronic hypoxia and uses 3 L of oxygen at the rehab facility as well and she wears CPAP for obstructive sleep apnea. The patient underwent a bronchoscopy yesterday with Dr. Pittman. The patient had extensive amount of purulent secretions that were aspirated from both lungs, and both lungs appear to be plugged, patient tolerated procedure well. Patient states she feels significantly better post procedure. Upon examination the patient is resting in bed up on 5 L of oxygen via nasal cannula. She continues to have shortness of breath with exertion, however this has improved. Continues with chronic cough, occasionally productive with clear phlegm. She feels her breathing is better today compared to previous. Patient states it is also easier to cough up any secreations. She continues to use both her flutter valve and her incentive spirometer regularly. Objective - Vital Signs Vital signs: Vital Signs Temp 96.9 F L 06/05/16 15:00 Pulse 100 06/05/16 16:14 Resp 20 06/05/16 15:00 BP 148/78 06/05/16 15:00 Pulse Ox 93 L 06/05/16 15:00 Intake & Output 06/04/16 06/05/16 06/05/16 18:59 06:59 18:59 Intake Total 320 240 Output Total 400 Balance -80 240 Intake: IV 40 0.9 NS @ 10cc/hr 40 Oral 280 240 Output: Urine 400 Other: Voiding Method Bedpan Bedpan Incontinent # Voids 0 2 - Exam GENERAL EXAM: Alert, active, comfortable in no apparent distress. HEAD: Normocephalic. EYES: Normal reaction of pupils, equal size. NOSE: Clear with pink turbinates. THROAT: No erythema or exudates. NECK: No masses, no JVD. CHEST: No chest wall deformity. LUNGS: Lungs noted to be bilaterally coarse, with few faint rhonchi. Some fine crackles at the bases. CVS: S1 and S2 normal with no audible mumurs, regular rhythm. ABDOMEN: No hepatosplenomegaly, normal bowel sounds, no guarding or rigidity. EXTREMITIES: Trace edema noted, pedal pulses palpable. SKIN: No rashes CENTRAL NERVOUS SYSTEM: No focal deficits, tone is normal in all 4 extremities. - Labs CBC & Chem 7: 06/04/16 05:56 06/05/16 08:11 Labs: Abnormal Lab Results - Last 24 Hours (Table) 06/04/16 06/04/16 06/05/16 Range/Units 17:03 21:15 06:49 PT (9.0-12.0) sec BUN (7-17) mg/dL Creatinine (0.52-1.04) mg/dL POC Glucose (mg/dL) 259 H 294 H 110 H (75-99) mg/dL Calcium (8.4-10.2) mg/dL Total Protein (6.3-8.2) g/dL Albumin (3.5-5.0) g/dL 06/05/16 06/05/16 06/05/16 Range/Units 08:11 08:11 12:25 PT 33.1 H (9.0-12.0) sec BUN 57 H (7-17) mg/dL Creatinine 1.05 H (0.52-1.04) mg/dL POC Glucose (mg/dL) 176 H (75-99) mg/dL Calcium 8.3 L (8.4-10.2) mg/dL Total Protein 5.9 L (6.3-8.2) g/dL Albumin 2.6 L (3.5-5.0) g/dL Microbiology - Last 24 Hours (Table) 06/02/16 14:30 Gram Stain - Final Bronchial Washings - Right Bronchial Washings Culture - Final Methicillin resist S. aureus Stenotrophomonas maltophilia Assessment and Plan Plan: assessment MRSA Pneumonia with sepsis Acute exacerbation of chronic obstructive pulmonary disease Acute on chronic systolic congestive heart failure exacerbation Elevated troponins Acute anemia secondary to chronic blood loss and suspected lower GI bleed Chronic atrial fibrillation Diabetes mellitus insulin-dependent Acute on chronic hypoxic respiratory failure Obesity hypoventilation Plan From pulmonology standpoint we do agree with discharge back to the rehabilitation center in the near future. Medications have been reviewed and will be continued as ordered. Cardiology and ID is also on consult. Continues in contact per cautioned her MRSA in the sputum. One-time dose of IV Lasix ordered. Continue with supportive care. We will continue to monitor labs/ results and adjust treatment as necessary. I performed an examination of the patient and discussed their management with the nurse practitioner. I have reviewed the nurse practitioner's note and agree with the documented findings and plan of care.
[2016-06-05 16:49] LABS: Glucose,Whole Blood 206 mg/dL (75-99)
[2016-06-05] MEDS: WARFARIN 2 MG TAB PO SCH (17:03)
[2016-06-05] MEDS: VANCOMYCIN 1,250 MG in SODIUM CHLORIDE 0.9% 250 ML IVPB SCH (18:16)
[2016-06-05] MEDS: POLYETHYLENE GLYCOL 3350 17 GM POWD.PACK PO SCH (20:45)
[2016-06-05] MEDS: LOSARTAN 50 MG TAB PO SCH (20:45)
[2016-06-05] MEDS: MONTELUKAST 10 MG TAB PO SCH (20:45)
[2016-06-05] MEDS: PRAVASTATIN SODIUM 20 MG TAB PO SCH (20:45)
[2016-06-05 21:15] LABS: Glucose,Whole Blood 303 mg/dL (75-99)
[2016-06-06] MEDS: HYDROcodone/APAP 10-325MG 1 EACH TAB PO PRN ×2 (06:27→18:35)
[2016-06-06 07:05] LABS: Glucose,Whole Blood 196 mg/dL (75-99)
[2016-06-06 07:44] LABS: Prothrombin Time 28.8 sec (9.0-12.0)
[2016-06-06 07:53] LABS: Calcium 8.5 mg/dL (8.4-10.2); Potassium 4.8 mmol/L (3.5-5.1); Total Bilirubin 0.4 mg/dL (0.2-1.3); Total Protein 5.9 g/dL (6.3-8.2)
[2016-06-06] MEDS: BUDESONIDE 1 MG/2 ML NEBU INHALATION SCH ×2 (07:55→19:42)
[2016-06-06] MEDS: IPRATROPIUM-ALBUTEROL 3 ML NEB INHALATION SCH ×4 (07:58→19:42)
[2016-06-06] MEDS: DOCUSATE 100 MG CAP PO SCH ×2 (08:48→20:35)
[2016-06-06] MEDS: ALPRAZolam 0.25 MG TAB PO SCH ×2 (08:48→20:34)
[2016-06-06] MEDS: INSULIN DETEMIR 100 UNIT/ML 10 ML VIAL SQ SCH ×2 (08:48→22:18)
[2016-06-06] MEDS: INSULIN LISPRO (humaLOG) 300 UNIT/3 ML VIAL SQ SCH ×4 (08:51→22:13)
[2016-06-06] MEDS: FUROSEMIDE 40 MG TAB PO SCH ×2 (08:52→16:06)
[2016-06-06] MEDS: METOPROLOL SUCCINATE (ER) 100 MG TAB.ER.24H PO SCH ×2 (08:52→20:36)
[2016-06-06] MEDS: predniSONE 20 MG TAB PO SCH (08:52)
[2016-06-06] MEDS: guaiFENesin 600 MG TABLET.ER PO SCH ×2 (08:52→20:35)
[2016-06-06] MEDS: PANTOPRAZOLE 40 MG TABLET PO SCH (08:52)
[2016-06-06] MEDS: FERROUS SULFATE 325 MG TAB PO SCH ×2 (08:52→20:35)
[2016-06-06] MEDS: DIGOXIN 125 MCG TAB PO SCH (08:56)
[2016-06-06 11:31] LABS: Glucose,Whole Blood 263 mg/dL (75-99)
[2016-06-06 11:31] LABS: Glucose,Whole Blood 464 mg/dL (75-99)
[2016-06-06] MEDS: LACTATED RINGERS 1,000 ML IV SCH (13:00)
--- NOTE | 2016-06-06 13:09 | P.PN ---
Subjective Patient is feeling dyspneic today. No events overnight. Objective - Vital Signs Vital signs: Vital Signs Temp 96.4 F L 06/06/16 07:00 Pulse 104 H 06/06/16 11:22 Resp 20 06/06/16 07:00 BP 157/69 06/06/16 07:00 Pulse Ox 94 L 06/06/16 07:58 Intake & Output 06/05/16 06/06/16 06/06/16 18:59 06:59 18:59 Intake Total 600 100 Balance 600 100 Weight 114.5 kg Intake: Oral 600 100 Other: Voiding Method Bedpan Bedpan Bedpan Incontinent Incontinent Incontinent # Voids 1 1 - Exam General: The patient is awake and alert, in no distress Eye: there is normal conjunctiva bilaterally. Neck: The neck is supple, there is no JVD. Cardiovascular: Normal S1-S2, no S3-S4, no murmurs. Respiratory: Lungs clear to auscultation bilaterally Gastrointestinal: Abdomen is soft, nontender Musculoskeletal: There is no pedal edema. Neurological:. Speech is normal. Skin: Skin is warm and dry - Labs CBC & Chem 7: 06/04/16 05:56 06/06/16 07:13 Labs: Abnormal Lab Results - Last 24 Hours (Table) 06/05/16 06/05/16 06/06/16 Range/Units 16:47 21:09 06:51 PT (9.0-12.0) sec BUN (7-17) mg/dL Creatinine (0.52-1.04) mg/dL Glucose (74-99) mg/dL POC Glucose (mg/dL) 206 H 303 H 196 H (75-99) mg/dL Total Protein (6.3-8.2) g/dL Albumin (3.5-5.0) g/dL 06/06/16 06/06/16 06/06/16 Range/Units 07:13 07:20 11:25 PT 28.8 H (9.0-12.0) sec BUN 70 H (7-17) mg/dL Creatinine 1.21 H (0.52-1.04) mg/dL Glucose 153 H (74-99) mg/dL POC Glucose (mg/dL) 464 H (75-99) mg/dL Total Protein 5.9 L (6.3-8.2) g/dL Albumin 2.6 L (3.5-5.0) g/dL 06/06/16 Range/Units 11:26 PT (9.0-12.0) sec BUN (7-17) mg/dL Creatinine (0.52-1.04) mg/dL Glucose (74-99) mg/dL POC Glucose (mg/dL) 263 H (75-99) mg/dL Total Protein (6.3-8.2) g/dL Albumin (3.5-5.0) g/dL Microbiology - Last 24 Hours (Table) 06/02/16 14:30 Gram Stain - Final Bronchial Washings - Right Bronchial Washings Culture - Final Methicillin resist S. aureus Stenotrophomonas maltophilia Assessment and Plan Plan: 1. MRSA Pneumonia with sepsis: Chest x-ray showing cardiomegaly with peripheral vascular congestion and patchy density in the right lower lobe. Also elevated temp of 102, white count 16.4 and lactic acid of 2.1. Patient followed by infectious disease and pulmonary. Patient has PICC line. Continue with IV vancomycin. Patient is status post bronchoscopy. Awaiting final bronchorrhea results. 2. Acute on chronic systolic CHF exacerbation. Most recent echo shows an EF of 40-45%. BNP elevated in the 3000's. Chest x-ray showing peripheral vascular congestion. Evaluated by cardiology service. Continue Lasix 40 mg by mouth twice a day 3. Cardiac causes. Continue with telemetry monitoring. Evaluated by cardiology and medications adjusted 4. Possible phlebitis of the left arm: Left arm pain and swelling bruising and firmness at old IV site. Showed improvement. Doppler shows no evidence of DVT. There was evidence of SVT. Keep arm elevated 5. Elevated troponin with no chest pain. Evaluated by cardiology 6. Acute anemia secondary to chronic blood loss and suspected lower GI bleed as well as iron deficiency anemia. Patient received 1 dose of IV iron. And then will start ferrous sulfate urine 25 mg twice a day. Was unable to have a colonoscopy during last admission due to multiple complications. She had a EGD last month at [facility] that was unremarkable. We'll continue to monitor hemoglobin. 7. Chronic atrial fibrillation maintained on Coumadin for anticoagulation. INR elevated at 3.3. Hold Coumadin today. Restart Coumadin tomorrow at 2 mg daily 8. History of COPD: Continue with nebulizer treatments. 9. Diabetes mellitus insulin-dependent: Resume her Levemir and NovoLog. Continue sliding scale coverage. Hemoglobin A1c of 7.2. 10. Left groin seroma: Wound culture growing MRSA. Continue vancomycin. Continue wound care. 11. Severe protein calorie malnutrition: Continue with protein supplements 12. Constipation: continue current bowel regimen GI prophylaxis Protonix and DVT prophylaxis Coumadin Heart rate not well controlled. Evaluated by cardiology. Digoxin added to her regimen. Continue telemetry monitoring. Patient did not get any Coumadin last night on the night before. We will order Coumadin 1 mg tonight for INR of 3.0. Antibiotic adjusted by infectious disease Anticipate discharge to ECF on Tuesday.
[2016-06-06] MEDS: IPRATROPIUM-ALBUTEROL 3 ML NEB INHALATION PRN (13:14)
--- NOTE | 2016-06-06 13:53 | P.PN ---
Subjective This is a 76-year-old female patient who is being evaluated and examined today on the sixth floor. This patient is well-known to our service. This patient recently was hospitalized in April with a left leg ischemia status post thrombectomy, pneumonia, COPD exacerbation, GI bleed, and CHF exacerbation. The patient was subsequently discharged to [facility]. She came back to the emergency room with some shortness of breath, cough, fever, generalized weakness and lethargy. She also states that she had been having some difficulty with urination. The patient was admitted with pneumonia, bronchospasms, acute hypoxia, chronic anemia, free bilateral illness and elevated troponins. The patient is known to have chronic hypoxia and uses 3 L of oxygen at the rehab facility as well and she wears CPAP for obstructive sleep apnea. The patient underwent a bronchoscopy yesterday with Dr. Pittman. The patient had extensive amount of purulent secretions that were aspirated from both lungs, and both lungs appear to be plugged, patient tolerated procedure well. Patient states she feels significantly better post procedure. Upon examination the patient is resting in bed up on 5 L of oxygen via nasal cannula. She continues to have shortness of breath, more so today than yesterday. Continues with chronic cough, occasionally productive with clear phlegm. Patient states it is also easier to cough up any secreations. She continues to use both her flutter valve and her incentive spirometer regularly. Objective - Vital Signs Vital signs: Vital Signs Temp 96.4 F L 06/06/16 07:00 Pulse 104 H 06/06/16 13:24 Resp 20 06/06/16 07:00 BP 157/69 06/06/16 07:00 Pulse Ox 94 L 06/06/16 07:58 Intake & Output 06/05/16 06/06/16 06/06/16 18:59 06:59 18:59 Intake Total 600 100 Balance 600 100 Weight 114.5 kg Intake: Oral 600 100 Other: Voiding Method Bedpan Bedpan Bedpan Incontinent Incontinent Incontinent # Voids 1 1 - Exam GENERAL EXAM: Alert, active, comfortable in no apparent distress. HEAD: Normocephalic. EYES: Normal reaction of pupils, equal size. NOSE: Clear with pink turbinates. THROAT: No erythema or exudates. NECK: No masses, no JVD. CHEST: No chest wall deformity. LUNGS: Lungs noted to be bilaterally coarse, with few faint rhonchi. Some fine crackles at the bases. CVS: S1 and S2 normal with no audible mumurs, regular rhythm. ABDOMEN: No hepatosplenomegaly, normal bowel sounds, no guarding or rigidity. EXTREMITIES: Trace edema noted, pedal pulses palpable. SKIN: No rashes CENTRAL NERVOUS SYSTEM: No focal deficits, tone is normal in all 4 extremities. - Labs CBC & Chem 7: 06/04/16 05:56 06/06/16 07:13 Labs: Abnormal Lab Results - Last 24 Hours (Table) 06/05/16 06/05/16 06/06/16 Range/Units 16:47 21:09 06:51 PT (9.0-12.0) sec BUN (7-17) mg/dL Creatinine (0.52-1.04) mg/dL Glucose (74-99) mg/dL POC Glucose (mg/dL) 206 H 303 H 196 H (75-99) mg/dL Total Protein (6.3-8.2) g/dL Albumin (3.5-5.0) g/dL 06/06/16 06/06/16 06/06/16 Range/Units 07:13 07:20 11:25 PT 28.8 H (9.0-12.0) sec BUN 70 H (7-17) mg/dL Creatinine 1.21 H (0.52-1.04) mg/dL Glucose 153 H (74-99) mg/dL POC Glucose (mg/dL) 464 H (75-99) mg/dL Total Protein 5.9 L (6.3-8.2) g/dL Albumin 2.6 L (3.5-5.0) g/dL 06/06/16 Range/Units 11:26 PT (9.0-12.0) sec BUN (7-17) mg/dL Creatinine (0.52-1.04) mg/dL Glucose (74-99) mg/dL POC Glucose (mg/dL) 263 H (75-99) mg/dL Total Protein (6.3-8.2) g/dL Albumin (3.5-5.0) g/dL Microbiology - Last 24 Hours (Table) 06/02/16 14:30 Gram Stain - Final Bronchial Washings - Right Bronchial Washings Culture - Final Methicillin resist S. aureus Stenotrophomonas maltophilia Assessment and Plan Plan: assessment MRSA Pneumonia with sepsis Acute exacerbation of chronic obstructive pulmonary disease Acute on chronic systolic congestive heart failure exacerbation Elevated troponins Acute anemia secondary to chronic blood loss and suspected lower GI bleed Chronic atrial fibrillation Diabetes mellitus insulin-dependent Acute on chronic hypoxic respiratory failure Obesity hypoventilation Plan From pulmonology standpoint we do agree with discharge back to the rehabilitation center in the near future. Medications have been reviewed and will be continued as ordered. Cardiology and ID is also on consult. Continues in contact per cautioned her MRSA in the sputum. Patient feels that she needs to take a nap and go on her CPAP machine because she is feeling slightly short of breath today. She is also about to have PRN updraft treatment and we will monitor outcome. Continue with supportive care. We will continue to monitor labs/results and adjust treatment as necessary. I performed an examination of the patient and discussed their management with the nurse practitioner. I have reviewed the nurse practitioner's note and agree with the documented findings and plan of care.
[2016-06-06 17:02] LABS: Glucose,Whole Blood 217 mg/dL (75-99)
[2016-06-06] MEDS: VANCOMYCIN 1,250 MG in SODIUM CHLORIDE 0.9% 250 ML IVPB SCH (17:08)
[2016-06-06] MEDS ORDERED: WARFARIN 1 MG TAB PO ONE (18:00)
[2016-06-06] MEDS: LOSARTAN 50 MG TAB PO SCH (20:35)
[2016-06-06] MEDS: PRAVASTATIN SODIUM 20 MG TAB PO SCH (20:35)
[2016-06-06] MEDS: MONTELUKAST 10 MG TAB PO SCH (20:36)
[2016-06-06] MEDS: POLYETHYLENE GLYCOL 3350 17 GM POWD.PACK PO SCH (20:36)
[2016-06-06 21:50] LABS: Glucose,Whole Blood 205 mg/dL (75-99)
[2016-06-07] MEDS: BUDESONIDE 1 MG/2 ML NEBU INHALATION SCH ×2 (07:13→19:43)
[2016-06-07] MEDS: IPRATROPIUM-ALBUTEROL 3 ML NEB INHALATION SCH ×4 (07:13→19:43)
[2016-06-07 07:54] LABS: Glucose,Whole Blood 129 mg/dL (75-99)
[2016-06-07] MEDS: INSULIN LISPRO (humaLOG) 300 UNIT/3 ML VIAL SQ SCH ×4 (08:47→21:01)
[2016-06-07] MEDS: HYDROcodone/APAP 10-325MG 1 EACH TAB PO PRN ×3 (08:53→18:47)
[2016-06-07] MEDS: METOPROLOL SUCCINATE (ER) 100 MG TAB.ER.24H PO SCH ×2 (08:53→21:02)
[2016-06-07] MEDS: guaiFENesin 600 MG TABLET.ER PO SCH ×2 (08:53→21:01)
[2016-06-07] MEDS: DOCUSATE 100 MG CAP PO SCH ×2 (08:53→21:01)
[2016-06-07] MEDS: predniSONE 20 MG TAB PO SCH (08:53)
[2016-06-07] MEDS: ALPRAZolam 0.25 MG TAB PO SCH ×2 (08:54→21:01)
[2016-06-07] MEDS: FERROUS SULFATE 325 MG TAB PO SCH ×2 (08:54→21:01)
[2016-06-07] MEDS: INSULIN DETEMIR 100 UNIT/ML 10 ML VIAL SQ SCH ×2 (08:54→21:01)
[2016-06-07] MEDS: FUROSEMIDE 40 MG TAB PO SCH ×2 (08:54→16:14)
[2016-06-07] MEDS: DIGOXIN 125 MCG TAB PO SCH (08:54)
[2016-06-07] MEDS: PANTOPRAZOLE 40 MG TABLET PO SCH (08:54)
[2016-06-07 09:29] LABS: INR 2.2 (<1.1); Prothrombin Time 21.2 sec (9.0-12.0)
[2016-06-07 09:38] LABS: Calcium 8.5 mg/dL (8.4-10.2); Potassium 4.8 mmol/L (3.5-5.1)
[2016-06-07 09:40] LABS: Anisocytosis Moderate; Basophils % (A) 0 %; CH 25.9; CHCM 27.8; Eosinophils % (A) 0 %; HCT 29.2 % (34.0-46.0); HDW 3.54; HGB 8.4 gm/dL (11.4-16.0); Hypochromasia Marked; Luc # (Auto) 0.21; Luc % (Auto) 2; Lymphocytes # (A) 1.4 k/uL (1.0-4.8); Lymphocytes % (A) 11 %; MCH 26.7 pg (25.0-35.0); MCHC 28.8 g/dL (31.0-37.0); Macrocytosis Slight; Mean Platelet Volume 7.3; Monocytes # (A) 0.5 k/uL (0-1.0); Monocytes % (A) 4 %; Neutrophils # (A) 11.1 k/uL (1.3-7.7); Neutrophils % (A) 84 %; Poikilocytosis Slight; RBC 3.14 m/uL (3.80-5.40); RDW 21.1 % (11.5-15.5); WBC 13.3 k/uL (3.8-10.6); WBC (Perox) 13.81
[2016-06-07] MEDS ORDERED: OSELTAMIVIR 75 MG CAP PO SCH (11:00)
[2016-06-07] MEDS: LACTATED RINGERS 1,000 ML IV SCH (11:22)
--- NOTE | 2016-06-07 11:51 | P.PN ---
Progress Note - Text 76 her old white female, and had an ischemic leg for that she went for thrombectomy and she also has a history of severe COPD patient developed some seroma in the groin and his stitches were removed there was about 2-3 cm in opening of the incision including with the local wound care base of the wound is granulating. Patient still has some serous drainage and patient is under care of Dr. Mohan Wild for infectious disease patient is planning to go to group home we will follow in the wound clinic and recommend continue with local wound care we've been packing this wound with the with the gauze and pressure dressing if patient goes home we will follow in 2 weeks in the wound clinic
[2016-06-07 12:37] LABS: Glucose,Whole Blood 245 mg/dL (75-99)
--- NOTE | 2016-06-07 12:47 | P.PN ---
Subjective Patient being treated for pneumonia with sepsis and CHF exacerbation. Patient also has a left groin seroma. Both sputum culture and wound culture growing MRSA. Currently on IV vancomycin. Had bronchoscopy during this admission. Per report showing influenza B positive. Patient started on Tamiflu. Bronchial washings growing MRSA and stenotrophomonas maltophilia. Infectious disease added Fortaz antibiotic regimen. Patient reports some improvement. However she did require extra dose of IV Lasix over the weekend. She was up to 5 L nasal cannula. This morning the area of the titrated down to 3 L stating and 92%. Chest x-ray pending. Case discussed with pulmonary service they are ordering a computed tomography scan of the chest Objective - Vital Signs Vital signs: Vital Signs Temp 96.4 F L 06/07/16 07:00 Pulse 100 06/07/16 11:32 Resp 21 06/07/16 07:00 BP 154/87 06/07/16 10:32 Pulse Ox 92 L 06/07/16 10:32 Intake & Output 06/06/16 06/07/16 06/07/16 18:59 06:59 18:59 Intake Total 1200 700 Output Total 4 Balance 1200 696 Weight 121 kg Intake: Oral 1200 700 Output: Urine 4 Other: Voiding Method Bedpan Bedpan Incontinent Incontinent # Voids 4 2 # Bowel Movements 0 - Exam Head normocephalic Neck supple Lungs coarse breath sounds with wheeze. Did show some improvement with cough Heart regular rate and rhythm S1-S2, no rub or gallop Abdomen is soft nontender nondistended positive bowel sounds no hepatosplenomegaly Extremities no edema Neuro alert and orientated to 3 - Labs CBC & Chem 7: 06/07/16 08:24 06/07/16 08:24 Labs: Abnormal Lab Results - Last 24 Hours (Table) 06/02/16 06/06/16 06/06/16 Range/Units 14:30 17:00 21:43 WBC (3.8-10.6) k/uL RBC (3.80-5.40) m/uL Hgb (11.4-16.0) gm/dL Hct (34.0-46.0) % MCHC (31.0-37.0) g/dL RDW (11.5-15.5) % Neutrophils # (1.3-7.7) k/uL PT (9.0-12.0) sec BUN (7-17) mg/dL Creatinine (0.52-1.04) mg/dL Glucose (74-99) mg/dL POC Glucose (mg/dL) 217 H 205 H (75-99) mg/dL Viral Test See Below H 06/07/16 06/07/16 06/07/16 Range/Units 07:34 08:24 08:24 WBC 13.3 H (3.8-10.6) k/uL RBC 3.14 L (3.80-5.40) m/uL Hgb 8.4 L (11.4-16.0) gm/dL Hct 29.2 L (34.0-46.0) % MCHC 28.8 L (31.0-37.0) g/dL RDW 21.1 H (11.5-15.5) % Neutrophils # 11.1 H (1.3-7.7) k/uL PT 21.2 H (9.0-12.0) sec BUN (7-17) mg/dL Creatinine (0.52-1.04) mg/dL Glucose (74-99) mg/dL POC Glucose (mg/dL) 129 H (75-99) mg/dL Viral Test 06/07/16 Range/Units 08:24 WBC (3.8-10.6) k/uL RBC (3.80-5.40) m/uL Hgb (11.4-16.0) gm/dL Hct (34.0-46.0) % MCHC (31.0-37.0) g/dL RDW (11.5-15.5) % Neutrophils # (1.3-7.7) k/uL PT (9.0-12.0) sec BUN 69 H (7-17) mg/dL Creatinine 1.17 H (0.52-1.04) mg/dL Glucose 130 H (74-99) mg/dL POC Glucose (mg/dL) (75-99) mg/dL Viral Test Assessment and Plan Plan: 1. MRSA Pneumonia with sepsis: Chest x-ray showing cardiomegaly with peripheral vascular congestion and patchy density in the right lower lobe. Also elevated temp of 102, white count 16.4 and lactic acid of 2.1. Patient followed by infectious disease and pulmonary. Patient has PICC line. Continue with IV vancomycin and Fortaz. Patient is status post bronchoscopy. Bronch cultures positive for influenza B. Patient started on Tamiflu. bronch cultures also growing MRSA and stenotrophomonas maltophilia. Bronchoscopy pathology shows no evidence of malignant cells. Pulmonary service is ordering a computed tomography scan of chest 2. Acute on chronic systolic CHF exacerbation. Most recent echo shows an EF of 40-45%. BNP elevated in the 3000's. Chest x-ray showing peripheral vascular congestion. Evaluated by cardiology service. Continue Lasix 40 mg by mouth twice a day 3. Cardiac pauses. Continue with telemetry monitoring. Evaluated by cardiology and medications adjusted 4. Possible phlebitis of the left arm: Left arm pain and swelling bruising and firmness at old IV site. Showed improvement. Doppler shows no evidence of DVT. There was evidence of SVT. Keep arm elevated 5. Elevated troponin with no chest pain. Evaluated by cardiology 6. Acute anemia secondary to chronic blood loss and suspected lower GI bleed as well as iron deficiency anemia. Hemoglobin is up to 8.4. Patient received 1 dose of IV iron. And then will start ferrous sulfate 325 mg twice a day. Iron level low at 29. Was unable to have a colonoscopy during last admission due to multiple complications. She had a EGD last month at [facility] that was unremarkable. We'll continue to monitor hemoglobin. 7. Chronic atrial fibrillation maintained on Coumadin for anticoagulation. INR 2.2. Start Coumadin 2 mg daily. Patient did have elevated heart rate over the weekend and which cardiology did restart digoxin. Heart rate has shown improvement. 8. History of COPD: Continue with nebulizer treatments. 9. Diabetes mellitus insulin-dependent: Continue Levemir and sliding scale coverage. Continue sliding scale coverage. Hemoglobin A1c of 7.2. 10. Left groin seroma: Wound culture growing MRSA. Continue vancomycin. Continue wound care. Followed by Dr. García. At discharge patient will follow -up with Dr. García in 2 weeks wound care center 11. Severe protein calorie malnutrition: Continue with protein supplements 12. Constipation: Patient had a bowel movement yesterday. Continue with current bowel regimen. GI prophylaxis Protonix and DVT prophylaxis Coumadin Patient is to return to [facility] when cleared for discharge
[2016-06-07] MEDS: IPRATROPIUM-ALBUTEROL 3 ML NEB INHALATION PRN ×2 (13:55→23:11)
--- NOTE | 2016-06-07 14:47 | P.PN ---
Subjective This is a 76-year-old female patient who is being evaluated and examined today on the sixth floor. This patient is well-known to our service. This patient recently was hospitalized in April with a left leg ischemia status post thrombectomy, pneumonia, COPD exacerbation, GI bleed, and CHF exacerbation. The patient was subsequently discharged to [facility]. She came back to the emergency room with some shortness of breath, cough, fever, generalized weakness and lethargy. She also states that she had been having some difficulty with urination. The patient was admitted with pneumonia, bronchospasms, acute hypoxia, chronic anemia, free bilateral illness and elevated troponins. The patient is known to have chronic hypoxia and uses 3 L of oxygen at the rehab facility as well and she wears CPAP for obstructive sleep apnea. The patient underwent a bronchoscopy with Dr. Pittman. The patient had extensive amount of purulent secretions that were aspirated from both lungs , and both lungs appear to be plugged, patient tolerated procedure well. Patient states she feels significantly better post procedure. Upon examination the patient is resting in bed up on 5 L of oxygen via nasal cannula. She continues to have shortness of breath, more so today than yesterday. Continues with chronic cough which has been greater than a six- month minimum, occasionally productive with clear phlegm. She continues to use both her flutter valve, however the patient has insufficient expiratory force therefore her flutter valve is a tried and failed alternative therapy to her bronchiectasis. Chest x-ray and CT were reviewed and are consistent with bronchiectasis. Physical percussion therapy has been tried however the patient cannot tolerate the positioning due to her physical limitations. Objective - Vital Signs Vital signs: Vital Signs Temp 96.4 F L 06/07/16 07:00 Pulse 104 H 06/07/16 14:10 Resp 21 06/07/16 07:00 BP 154/87 06/07/16 10:32 Pulse Ox 92 L 06/07/16 10:32 Intake & Output 06/06/16 06/07/16 06/07/16 18:59 06:59 18:59 Intake Total 1200 700 Output Total 4 Balance 1200 696 Weight 121 kg Intake: Oral 1200 700 Output: Urine 4 Other: Voiding Method Bedpan Bedpan Incontinent Incontinent # Voids 4 2 # Bowel Movements 0 - Exam GENERAL EXAM: Alert, active, comfortable in no apparent distress. HEAD: Normocephalic. EYES: Normal reaction of pupils, equal size. NOSE: Clear with pink turbinates. THROAT: No erythema or exudates. NECK: No masses, no JVD. CHEST: No chest wall deformity. LUNGS: Lungs noted to be bilaterally coarse and congested, with few faint rhonchi. Some fine crackles at the bases. CVS: S1 and S2 normal with no audible mumurs, regular rhythm. ABDOMEN: No hepatosplenomegaly, normal bowel sounds, no guarding or rigidity. EXTREMITIES: Trace edema noted, pedal pulses palpable. SKIN: No rashes CENTRAL NERVOUS SYSTEM: No focal deficits, tone is normal in all 4 extremities. - Labs CBC & Chem 7: 06/07/16 08:24 06/07/16 08:24 Labs: Abnormal Lab Results - Last 24 Hours (Table) 06/02/16 06/06/16 06/06/16 Range/Units 14:30 17:00 21:43 WBC (3.8-10.6) k/uL RBC (3.80-5.40) m/uL Hgb (11.4-16.0) gm/dL Hct (34.0-46.0) % MCHC (31.0-37.0) g/dL RDW (11.5-15.5) % Neutrophils # (1.3-7.7) k/uL PT (9.0-12.0) sec BUN (7-17) mg/dL Creatinine (0.52-1.04) mg/dL Glucose (74-99) mg/dL POC Glucose (mg/dL) 217 H 205 H (75-99) mg/dL Viral Test See Below H 06/07/16 06/07/16 06/07/16 Range/Units 07:34 08:24 08:24 WBC 13.3 H (3.8-10.6) k/uL RBC 3.14 L (3.80-5.40) m/uL Hgb 8.4 L (11.4-16.0) gm/dL Hct 29.2 L (34.0-46.0) % MCHC 28.8 L (31.0-37.0) g/dL RDW 21.1 H (11.5-15.5) % Neutrophils # 11.1 H (1.3-7.7) k/uL PT 21.2 H (9.0-12.0) sec BUN (7-17) mg/dL Creatinine (0.52-1.04) mg/dL Glucose (74-99) mg/dL POC Glucose (mg/dL) 129 H (75-99) mg/dL Viral Test 06/07/16 06/07/16 Range/Units 08:24 12:25 WBC (3.8-10.6) k/uL RBC (3.80-5.40) m/uL Hgb (11.4-16.0) gm/dL Hct (34.0-46.0) % MCHC (31.0-37.0) g/dL RDW (11.5-15.5) % Neutrophils # (1.3-7.7) k/uL PT (9.0-12.0) sec BUN 69 H (7-17) mg/dL Creatinine 1.17 H (0.52-1.04) mg/dL Glucose 130 H (74-99) mg/dL POC Glucose (mg/dL) 245 H (75-99) mg/dL Viral Test Microbiology - Last 24 Hours (Table) 06/02/16 14:30 Fungal Culture - Preliminary Bronchial Washings - Right Gabriela albicans Assessment and Plan Plan: Assessment MRSA Pneumonia with sepsis Acute exacerbation of chronic obstructive pulmonary disease Acute on chronic systolic congestive heart failure exacerbation Elevated troponins Acute anemia secondary to chronic blood loss and suspected lower GI bleed Chronic atrial fibrillation Diabetes mellitus insulin-dependent Acute on chronic hypoxic respiratory failure Obesity hypoventilation Bronchiectasis Chronic cough lasting longer than 6 months Plan Medications have been reviewed and will be continued as ordered. Cardiology and ID is also on consult. Continues in contact per cautioned her MRSA in the sputum. Physical percussion is noted to be a failed therapy due to the patient being unable to tolerate positioning as well as the physical limitations of her body. The flutter therapy is ineffective as well due to the patient having an insufficient expiratory force. Both chest x-ray and CT results reviewed and are consistent with her bronchiectasis. Continue with supportive care. This patient would best benefit with an airway clearance vest therapy, which we will provide a prescription for her. We will continue to monitor labs/results and adjust treatment as necessary. I performed an examination of the patient and discussed their management with the nurse practitioner. I have reviewed the nurse practitioner's note and agree with the documented findings and plan of care.
--- NOTE | 2016-06-07 14:59 | XR ---
EXAMINATION TYPE: XR chest 2V DATE OF EXAM: 06/07/2016 11:06 AM COMPARISON: Prior chest x-ray 03 June 2016 HISTORY: Evaluate for congestive heart failure TECHNIQUE: Frontal and lateral views of the chest are obtained. FINDINGS: Thoracic cord stimulator is in place as on prior exam. Prominent lung volumes are again no jose. The heart remains enlarged. Patchy basilar density persists. Left-sided PICC line is present, di stal tip is overlying the superior vena cava. There is no evident pneumothorax. Pulmonary vascularity and de not significant IMPRESSION: Emphysema. Basilar atelectasis, correlate to exclude pneumonia versus edema.
[2016-06-07] MEDS ORDERED: VANCOMYCIN TROUGH DUE 1 EACH MISC MISCELLANE ONE (15:00)
--- NOTE | 2016-06-07 15:10 | CT ---
EXAMINATION TYPE: CT chest wo con DATE OF EXAM: 06/07/2016 1:45 PM COMPARISON: 05/01/2016 HISTORY: shortness of breath CT DLP: 750.6 mGycm, Automated exposure control for dose reduction was used. CONTRAST: Performed injected with 0 mL of Omnipaque 300. TECHNIQUE: Axial images were obtained at 5 mm thick sections. Reconstructed images are reviewed on [employer] computer in the coronal plane. FINDINGS: Portion of the thyroid visualized is normal. Emphysematous changes are present. Some minimal compressive atelectasis is within the dependent porti on of the left lung base. Some infiltrate is in the dependent portions of the lung bases bilaterally. Correlate for atelectasis or pneumonia. Subglottic airway is normal. Thyroid is slightly prominent. There is a 1.0 cm pretracheal lymph node. Additional shotty lymphadenopathy is present. The ascendin g aorta diameter at the level of the main pulmonary artery is 3.5 cm. The main pulmonary artery diam eter at the bifurcation is 3.5 cm. Coronary artery calcification is present. Very minimal pericardial effusion may be present. Limited CT sections are obtained through the upper abdomen. There is a 2.1 cm left adrenal mass. Boone shaq is within the differential. IMPRESSIONS: 1. Bibasilar infiltrates. Correlate for atelectasis and pneumonia. 2. Very minimal pericardial effusion. Small pleural effusions may be present. 3. 1.0 cm borderline size lymph node in the pretracheal space. Additional shotty lymphadenopathy is p resent. 4. Infiltrates at the lung bases as well as small pleural effusions were present previously
[2016-06-07] MEDS: VANCOMYCIN 1,250 MG in SODIUM CHLORIDE 0.9% 250 ML IVPB SCH (16:13)
[2016-06-07 17:33] LABS: Glucose,Whole Blood 259 mg/dL (75-99)
[2016-06-07] MEDS: WARFARIN 2 MG TAB PO SCH (18:39)
[2016-06-07 20:40] LABS: Glucose,Whole Blood 280 mg/dL (75-99)
[2016-06-07] MEDS: POLYETHYLENE GLYCOL 3350 17 GM POWD.PACK PO SCH (21:00)
[2016-06-07] MEDS: MONTELUKAST 10 MG TAB PO SCH (21:01)
[2016-06-07] MEDS: PRAVASTATIN SODIUM 20 MG TAB PO SCH (21:01)
[2016-06-07] MEDS: LOSARTAN 50 MG TAB PO SCH (21:02)
[2016-06-07] MEDS: OSELTAMIVIR 60 MG/10 ML ORAL SYRINGE PO SCH (21:03)
[2016-06-08] MEDS: HYDROcodone/APAP 10-325MG 1 EACH TAB PO PRN ×5 (02:54→21:56)
[2016-06-08 07:14] LABS: Glucose,Whole Blood 142 mg/dL (75-99)
[2016-06-08] MEDS: INSULIN LISPRO (humaLOG) 300 UNIT/3 ML VIAL SQ SCH ×4 (08:16→21:53)
[2016-06-08] MEDS: INSULIN DETEMIR 100 UNIT/ML 10 ML VIAL SQ SCH ×2 (08:16→21:53)
[2016-06-08] MEDS: ALPRAZolam 0.25 MG TAB PO SCH ×2 (08:17→21:52)
[2016-06-08] MEDS: predniSONE 20 MG TAB PO SCH (08:17)
[2016-06-08] MEDS: METOPROLOL SUCCINATE (ER) 100 MG TAB.ER.24H PO SCH ×2 (08:17→21:52)
[2016-06-08] MEDS: DIGOXIN 125 MCG TAB PO SCH (08:17)
[2016-06-08] MEDS: SULFAMETHOX-TMP 400-80MG 1 EACH TAB PO SCH ×2 (08:17→21:56)
[2016-06-08] MEDS: FUROSEMIDE 40 MG TAB PO SCH ×2 (08:18→17:22)
[2016-06-08] MEDS: guaiFENesin 600 MG TABLET.ER PO SCH ×2 (08:18→21:53)
[2016-06-08] MEDS: FERROUS SULFATE 325 MG TAB PO SCH ×2 (08:18→21:53)
[2016-06-08] MEDS: PANTOPRAZOLE 40 MG TABLET PO SCH (08:18)
[2016-06-08] MEDS: DOCUSATE 100 MG CAP PO SCH ×2 (08:24→21:52)
[2016-06-08] MEDS: OSELTAMIVIR 60 MG/10 ML ORAL SYRINGE PO SCH ×2 (08:29→21:59)
[2016-06-08] MEDS: BUDESONIDE 1 MG/2 ML NEBU INHALATION SCH ×2 (08:33→20:58)
[2016-06-08] MEDS: IPRATROPIUM-ALBUTEROL 3 ML NEB INHALATION SCH ×4 (08:33→20:58)
[2016-06-08 09:42] LABS: Anisocytosis Moderate; Basophils % (A) 0 %; CH 26.4; CHCM 28.5; Eosinophils % (A) 0 %; HDW 3.59; HGB 8.5 gm/dL (11.4-16.0); Hypochromasia Marked; Luc # (Auto) 0.15; Luc % (Auto) 1; Lymphocytes % (A) 8 %; MCH 27.1 pg (25.0-35.0); MCHC 29.4 g/dL (31.0-37.0); MCV 92.4 fL (80.0-100.0); Macrocytosis Slight; Mean Platelet Volume 7.6; Monocytes # (A) 0.6 k/uL (0-1.0); Monocytes % (A) 5 %; Neutrophils # (A) 10.8 k/uL (1.3-7.7); Neutrophils % (A) 87 %; Poikilocytosis Slight; RBC 3.13 m/uL (3.80-5.40); RDW 21.8 % (11.5-15.5); WBC 12.5 k/uL (3.8-10.6); WBC (Perox) 13.11
[2016-06-08 09:48] LABS: INR 2.2 (<1.1)
[2016-06-08 10:02] LABS: Anion Gap 7 mmol/L; Blood Urea Nitrogen 67 mg/dL (7-17); Calcium 8.4 mg/dL (8.4-10.2); Carbon Dioxide 29 mmol/L (22-30); Chloride 105 mmol/L (98-107); Glucose 169 mg/dL (74-99); Non-African American GFR(MDRD) 50 (>60 ml/min/1.73 sqM); Potassium 4.7 mmol/L (3.5-5.1); Sodium 141 mmol/L (137-145)
--- NOTE | 2016-06-08 10:37 | P.PN ---
Subjective This is a 76-year-old female patient who is being evaluated and examined today on the sixth floor. This patient is well-known to our service. This patient recently was hospitalized in April with a left leg ischemia status post thrombectomy, pneumonia, COPD exacerbation, GI bleed, and CHF exacerbation. The patient was subsequently discharged to [facility]. She came back to the emergency room with some shortness of breath, cough, fever, generalized weakness and lethargy. Patient has multiple readdmissions to the hospital due to her respiratory status and develops reoccuring pnemonia with her bronchiectasis. The patient was admitted with stay with pneumonia, bronchospasms, acute hypoxia, chronic anemia, febrile illness and elevated troponins. The patient is known to have chronic hypoxia and uses 3 L of oxygen at the rehab facility as well and she wears CPAP for obstructive sleep apnea. The patient underwent a bronchoscopy with Dr. Pittman. The patient had extensive amount of purulent secretions that were aspirated from both lungs, and both lungs appear to be plugged, patient tolerated procedure well. Patient states she feels significantly better post procedure. Upon examination the patient is resting in bed up on 4 L of oxygen via nasal cannula. She continues to have shortness of breath. Continues with chronic cough which has been greater than a six-month minimum, occasionally productive with clear phlegm. She continues to use her flutter valve, however the patient has insufficient expiratory force therefore her flutter valve is a tried and failed alternative therapy to her bronchiectasis. Chest x-ray and CT were both reviewed and are consistent with bronchiectasis. Physical manual percussion therapy has been tried however the patient cannot tolerate the positioning due to her physical limitations. Objective - Vital Signs Vital signs: Vital Signs Temp 96.7 F L 06/08/16 07:00 Pulse 81 06/08/16 07:00 Resp 16 06/08/16 08:41 BP 168/84 06/08/16 07:00 Pulse Ox 94 L 06/08/16 07:00 Intake & Output 06/07/16 06/08/16 06/08/16 18:59 06:59 18:59 Weight 121 kg 111 kg Other: Voiding Method Bedpan Bedpan Bedpan Incontinent Incontinent Incontinent # Voids 6 2 - Exam GENERAL EXAM: Alert, active, comfortable in no apparent distress. HEAD: Normocephalic. EYES: Normal reaction of pupils, equal size. NOSE: Clear with pink turbinates. THROAT: No erythema or exudates. NECK: No masses, no JVD. CHEST: No chest wall deformity. LUNGS: Lungs noted to be bilaterally coarse and congested, with few faint rhonchi. Some fine crackles at the bases. CVS: S1 and S2 normal with no audible mumurs, regular rhythm. ABDOMEN: No hepatosplenomegaly, normal bowel sounds, no guarding or rigidity. EXTREMITIES: Trace edema noted, pedal pulses palpable. SKIN: No rashes CENTRAL NERVOUS SYSTEM: No focal deficits, tone is normal in all 4 extremities. - Labs CBC & Chem 7: 06/08/16 09:24 06/08/16 09:24 Labs: Abnormal Lab Results - Last 24 Hours (Table) 06/02/16 06/07/16 06/07/16 Range/Units 14:30 12:25 17:25 WBC (3.8-10.6) k/uL RBC (3.80-5.40) m/uL Hgb (11.4-16.0) gm/dL Hct (34.0-46.0) % MCHC (31.0-37.0) g/dL RDW (11.5-15.5) % Neutrophils # (1.3-7.7) k/uL PT (9.0-12.0) sec BUN (7-17) mg/dL Creatinine (0.52-1.04) mg/dL Glucose (74-99) mg/dL POC Glucose (mg/dL) 245 H 259 H (75-99) mg/dL Viral Test See Below H 06/07/16 06/08/16 06/08/16 Range/Units 20:37 07:13 09:24 WBC 12.5 H (3.8-10.6) k/uL RBC 3.13 L (3.80-5.40) m/uL Hgb 8.5 L (11.4-16.0) gm/dL Hct 29.0 L (34.0-46.0) % MCHC 29.4 L (31.0-37.0) g/dL RDW 21.8 H (11.5-15.5) % Neutrophils # 10.8 H (1.3-7.7) k/uL PT (9.0-12.0) sec BUN (7-17) mg/dL Creatinine (0.52-1.04) mg/dL Glucose (74-99) mg/dL POC Glucose (mg/dL) 280 H 142 H (75-99) mg/dL Viral Test 06/08/16 06/08/16 Range/Units 09:24 09:24 WBC (3.8-10.6) k/uL RBC (3.80-5.40) m/uL Hgb (11.4-16.0) gm/dL Hct (34.0-46.0) % MCHC (31.0-37.0) g/dL RDW (11.5-15.5) % Neutrophils # (1.3-7.7) k/uL PT 21.0 H (9.0-12.0) sec BUN 67 H (7-17) mg/dL Creatinine 1.07 H (0.52-1.04) mg/dL Glucose 169 H (74-99) mg/dL POC Glucose (mg/dL) (75-99) mg/dL Viral Test Microbiology - Last 24 Hours (Table) 06/02/16 14:30 Fungal Culture - Preliminary Bronchial Washings - Right Gabriela albicans Assessment and Plan Plan: Assessment MRSA Pneumonia with sepsis Acute exacerbation of chronic obstructive pulmonary disease Acute on chronic systolic congestive heart failure exacerbation Elevated troponins Acute anemia secondary to chronic blood loss and suspected lower GI bleed Chronic atrial fibrillation Diabetes mellitus insulin-dependent Acute on chronic hypoxic respiratory failure Obesity hypoventilation Bronchiectasis Chronic cough lasting longer than 6 months Plan Medications have been reviewed and will be continued as ordered. Cardiology and ID is also on consult. Continues in contact per cautioned her MRSA in the sputum. Physical percussion is noted to be a failed therapy due to the patient being unable to tolerate positioning as well as the physical limitations of her body. The flutter therapy is ineffective as well due to the patient having an insufficient expiratory force. Both chest x-ray and CT results reviewed and are consistent with her bronchiectasis. Continue with supportive care. This patient would best benefit with an airway clearance vest therapy, which we will provide a prescription for her. We will continue to monitor labs/results and adjust treatment as necessary. I performed an examination of the patient and discussed their management with the nurse practitioner. I have reviewed the nurse practitioner's note and agree with the documented findings and plan of care.
[2016-06-08 11:48] LABS: Glucose,Whole Blood 166 mg/dL (75-99)
[2016-06-08] MEDS: LACTATED RINGERS 1,000 ML IV SCH (13:00)
[2016-06-08 16:53] LABS: Glucose,Whole Blood 263 mg/dL (75-99)
[2016-06-08] MEDS: VANCOMYCIN 1,000 MG in SODIUM CHLORIDE 0.9% 250 ML IVPB SCH (17:22)
[2016-06-08] MEDS: WARFARIN 2 MG TAB PO SCH (17:22)
--- NOTE | 2016-06-08 17:45 | P.PN ---
Subjective Principal diagnosis: Pneumonia with sepsis Patient is a 76-year-old female who was readmitted to [facility] due to fever cough and worsening shortness of breath She had evidence of pneumonia with sepsis, she also had evidence of anemia was hemoglobin of 7.8, evidence of acute congestive heart failure exacerbation, she has known history of atrial fibrillation. Today patient was feeling worse she was having significant shortness of breath, She received extra doses of Lasix i am ordering now 1 dose of IV albumin 25 g followed by Lasix 20 mg IV Objective - Vital Signs Vital signs: Vital Signs Temp 98 F 06/08/16 15:00 Pulse 88 06/08/16 16:19 Resp 22 06/08/16 15:00 BP 142/75 06/08/16 15:00 Pulse Ox 90 L 06/08/16 15:00 Intake & Output 06/07/16 06/08/16 06/08/16 18:59 06:59 18:59 Weight 121 kg 111 kg Other: Voiding Method Bedpan Bedpan Bedpan Incontinent Incontinent Incontinent # Voids 6 2 - Exam In general patient is alert and oriented 3 in no apparent distress HEENT head normocephalic and atraumatic Neck is supple no JVD no goiter no lymphadenopathy Chest exam reveals coarse crackles in both lung olivares no wheezing Cardiac exam reveals regular heart sounds no murmurs Abdomen is soft nontender no organomegaly Extremity exam reveals no edema no cyanosis or clubbing - Labs CBC & Chem 7: 06/08/16 09:24 06/08/16 09:24 Labs: Abnormal Lab Results - Last 24 Hours (Table) 06/07/16 06/08/16 06/08/16 Range/Units 20:37 07:13 09:24 WBC 12.5 H (3.8-10.6) k/uL RBC 3.13 L (3.80-5.40) m/uL Hgb 8.5 L (11.4-16.0) gm/dL Hct 29.0 L (34.0-46.0) % MCHC 29.4 L (31.0-37.0) g/dL RDW 21.8 H (11.5-15.5) % Neutrophils # 10.8 H (1.3-7.7) k/uL PT (9.0-12.0) sec BUN (7-17) mg/dL Creatinine (0.52-1.04) mg/dL Glucose (74-99) mg/dL POC Glucose (mg/dL) 280 H 142 H (75-99) mg/dL 06/08/16 06/08/16 06/08/16 Range/Units 09:24 09:24 11:43 WBC (3.8-10.6) k/uL RBC (3.80-5.40) m/uL Hgb (11.4-16.0) gm/dL Hct (34.0-46.0) % MCHC (31.0-37.0) g/dL RDW (11.5-15.5) % Neutrophils # (1.3-7.7) k/uL PT 21.0 H (9.0-12.0) sec BUN 67 H (7-17) mg/dL Creatinine 1.07 H (0.52-1.04) mg/dL Glucose 169 H (74-99) mg/dL POC Glucose (mg/dL) 166 H (75-99) mg/dL 06/08/16 Range/Units 16:51 WBC (3.8-10.6) k/uL RBC (3.80-5.40) m/uL Hgb (11.4-16.0) gm/dL Hct (34.0-46.0) % MCHC (31.0-37.0) g/dL RDW (11.5-15.5) % Neutrophils # (1.3-7.7) k/uL PT (9.0-12.0) sec BUN (7-17) mg/dL Creatinine (0.52-1.04) mg/dL Glucose (74-99) mg/dL POC Glucose (mg/dL) 263 H (75-99) mg/dL Microbiology - Last 24 Hours (Table) 06/02/16 14:30 Fungal Culture - Preliminary Bronchial Washings - Right Gabriela albicans Assessment and Plan Plan: 1. Pneumonia with MRSA: on to IV vancomycin patient improving, pulmonary and infectious disease following Patient is having difficulty bringing up sputum 2. Acute on chronic systolic CHF exacerbation. Most recent echo shows an EF of 40-45%. BNP elevated in the 3000's. Chest x-ray showing peripheral vascular congestion. Patient received multiple extra doses of IV Lasix due to worsening shortness of breath and O2 desaturations this morning 3. Cardiac pauses. Continue with telemetry monitoring. Cardiology has been consulted. 4. Insulin-dependent diabetes mellitus, A1c is 7.2 continue was Levemir and NovoLog 5. Elevated troponin with no chest pain. Cardiology following 6. Acute anemia secondary to chronic blood loss and suspected lower GI bleed. 7. Chronic atrial fibrillation maintained on Coumadin for anticoagulation. Monitor PT/INRs closely due to Coumadin and Levaquin interaction. 8. History of COPD: Continue with nebulizer treatments. 9. Coagulopathy INR 2.2 today, will give coumadin 4 mg 10. Poor nutritional status, on protein supplements
[2016-06-08 20:33] LABS: Glucose,Whole Blood 339 mg/dL (75-99)
[2016-06-08] MEDS: PRAVASTATIN SODIUM 20 MG TAB PO SCH (21:52)
[2016-06-08] MEDS: MONTELUKAST 10 MG TAB PO SCH (21:53)
[2016-06-08] MEDS: LOSARTAN 50 MG TAB PO SCH (21:53)
[2016-06-08] MEDS: POLYETHYLENE GLYCOL 3350 17 GM POWD.PACK PO SCH (21:56)
[2016-06-09] MEDS: IPRATROPIUM-ALBUTEROL 3 ML NEB INHALATION PRN (03:55)
[2016-06-09 07:38] LABS: Mis test requested (Non-blood) Pneumocys. jirovecii
[2016-06-09 07:47] LABS: Glucose,Whole Blood 147 mg/dL (75-99)
[2016-06-09] MEDS: BUDESONIDE 1 MG/2 ML NEBU INHALATION SCH ×2 (08:11→20:42)
[2016-06-09] MEDS: IPRATROPIUM-ALBUTEROL 3 ML NEB INHALATION SCH ×4 (08:11→20:43)
[2016-06-09] MEDS: INSULIN LISPRO (humaLOG) 300 UNIT/3 ML VIAL SQ SCH ×4 (08:52→21:50)
[2016-06-09] MEDS: PANTOPRAZOLE 40 MG TABLET PO SCH (08:53)
[2016-06-09] MEDS: FUROSEMIDE 40 MG TAB PO SCH ×2 (08:54→17:33)
[2016-06-09] MEDS: SULFAMETHOX-TMP 400-80MG 1 EACH TAB PO SCH ×2 (08:54→20:54)
[2016-06-09] MEDS: DOCUSATE 100 MG CAP PO SCH ×2 (08:55→20:56)
[2016-06-09] MEDS: guaiFENesin 600 MG TABLET.ER PO SCH ×2 (08:55→20:56)
[2016-06-09] MEDS: METOPROLOL SUCCINATE (ER) 100 MG TAB.ER.24H PO SCH ×2 (08:56→20:55)
[2016-06-09] MEDS: FERROUS SULFATE 325 MG TAB PO SCH ×2 (08:56→20:56)
[2016-06-09] MEDS: DIGOXIN 125 MCG TAB PO SCH (08:57)
[2016-06-09] MEDS: OSELTAMIVIR 60 MG/10 ML ORAL SYRINGE PO SCH ×2 (08:57→20:54)
[2016-06-09] MEDS: predniSONE 20 MG TAB PO SCH (08:59)
[2016-06-09] MEDS: INSULIN DETEMIR 100 UNIT/ML 10 ML VIAL SQ SCH ×2 (09:17→21:50)
[2016-06-09] MEDS: ALPRAZolam 0.25 MG TAB PO SCH ×2 (09:17→20:56)
[2016-06-09 09:23] LABS: Anisocytosis Moderate; Basophils % (A) 0 %; CH 25.9; CHCM 27.8; Eosinophils % (A) 0 %; HDW 3.37; HGB 8.6 gm/dL (11.4-16.0); Hypochromasia Marked; Luc # (Auto) 0.17; Luc % (Auto) 1; Lymphocytes # (A) 1.2 k/uL (1.0-4.8); Lymphocytes % (A) 10 %; MCH 26.7 pg (25.0-35.0); MCHC 28.7 g/dL (31.0-37.0); MCV 93.1 fL (80.0-100.0); Macrocytosis Slight; Monocytes # (A) 0.6 k/uL (0-1.0); Monocytes % (A) 5 %; Neutrophils # (A) 10.3 k/uL (1.3-7.7); Neutrophils % (A) 83 %; RBC 3.22 m/uL (3.80-5.40); RDW 21.6 % (11.5-15.5); WBC 12.3 k/uL (3.8-10.6); WBC (Perox) 12.55
[2016-06-09 09:31] LABS: INR 2.5 (<1.1); Prothrombin Time 23.6 sec (9.0-12.0)
[2016-06-09 09:44] LABS: Calcium 8.6 mg/dL (8.4-10.2); Potassium 5.1 mmol/L (3.5-5.1); Total Bilirubin 0.3 mg/dL (0.2-1.3)
[2016-06-09 12:07] LABS: Glucose,Whole Blood 217 mg/dL (75-99)
[2016-06-09] MEDS: HYDROcodone/APAP 10-325MG 1 EACH TAB PO PRN ×2 (13:45→17:35)
[2016-06-09] MEDS: LACTATED RINGERS 1,000 ML IV SCH (13:46)
--- NOTE | 2016-06-09 17:17 | PN ---
Patient is seen, evaluated, examined. She is still having intermittent cough, but cough has been very weak. She is breathing comfortably. Gets short of breath and remains on supplemental oxygen. Hemodynamic status is stable. Her last set of vitals includes blood pressure 143/74, respiratory rate 24, heart rate 82. Temperature is 97, saturation 91% on 2 L oxygen. HEENT EXAMINATION: Otherwise unremarkable. Atraumatic, normocephalic. Pharynx is clear. Narrow pharyngeal opening is present. NECK: Supple without lymphadenopathy, jugular venous distention or carotid bruit. LUNGS: Bilateral good air entry with decreased air entry at bases. Some bronchial breath sounds are present. HEART: Regular rate, rhythm. S1, S2 audible. ABDOMEN: Soft. EXTREMITIES: Plus one peripheral pulses. NEUROLOGICAL EXAMINATION: Otherwise awake and alert. The culture results and report from bronchial washing have been reviewed. It is positive for MRSA as well as Stenotrophomonas maltophilia. Sensitivities reviewed. Maltophilia is sensitive to Levaquin as well as Bactrim. The CT scan of the chest which was performed yesterday has been reviewed as well. Patient does have some evidence of bronchiectasis in the right mid lung field area as well as right lower lobe with basilar infiltrate, predominantly on the right side. Small reactive lymph nodes cannot be excluded. IMPRESSION: 1. Polymicrobial pneumonia involving methicillin-resistant Staphylococcus aureus as well as Stenotrophomonas maltophilia. ID Service is following, adjusting the antibiotics. 2. Acute bronchiectasis, likely related to pneumonia. Given that patient has a poor cough, would recommend Vest therapy as planned. That will help in getting rid of the respiratory secretions and prevent recurrence of pneumonia and improve respiratory status. 3. Peripheral arterial disease. Vascular Surgery has been following. 4. Generalized weakness and medical debility. 5. Protein-calorie malnourishment. 6. Severe chronic obstructive pulmonary disease, emphysema. 7. History of gastrointestinal bleed. 8. Diabetes mellitus. PLAN AND RECOMMENDATIONS: As above. Continue supportive care. Follow clinical course closely. Further recommendations pending. Plan of care as per clinical response of the patient. Would maintain antibiotics, breathing treatments, pulmonary toilet and suctioning. Optimize medical therapy. Increase activity as tolerated. Continue to monitor sugars closely. Anticoagulation as per recommendation. Patient is on 40 mg of prednisone. Will titrate, lower down to 30 mg. Will follow.
[2016-06-09 17:28] LABS: Glucose,Whole Blood 240 mg/dL (75-99)
[2016-06-09] MEDS: VANCOMYCIN 1,000 MG in SODIUM CHLORIDE 0.9% 250 ML IVPB SCH (17:33)
[2016-06-09] MEDS: WARFARIN 2 MG TAB PO SCH (17:34)
--- NOTE | 2016-06-09 18:41 | P.PN ---
Subjective Principal diagnosis: Pneumonia with sepsis Patient is a 76-year-old female who was readmitted to [facility] due to fever cough and worsening shortness of breath She had evidence of pneumonia with sepsis, she also had evidence of anemia was hemoglobin of 7.8, evidence of acute congestive heart failure exacerbation, she has known history of atrial fibrillation. Today patient was feeling worse she was having significant shortness of breath, She received extra doses of Lasix i am ordering now 1 dose of IV albumin 25 g followed by Lasix 20 mg IV Objective - Vital Signs Vital signs: Vital Signs Temp 98.3 F 06/09/16 15:00 Pulse 106 H 06/09/16 15:00 Resp 24 06/09/16 15:00 BP 129/84 06/09/16 15:00 Pulse Ox 93 L 06/09/16 15:00 Intake & Output 06/08/16 06/09/16 06/09/16 18:59 06:59 18:59 Intake Total 480 Balance 480 Weight 118 kg Intake: Oral 480 Other: Voiding Method Bedpan Bedpan Incontinent Incontinent # Voids 2 4 # Bowel Movements 1 - Exam In general patient is alert and oriented 3 in no apparent distress HEENT head normocephalic and atraumatic Neck is supple no JVD no goiter no lymphadenopathy Chest exam reveals coarse crackles in both lung olivares no wheezing Cardiac exam reveals regular heart sounds no murmurs Abdomen is soft nontender no organomegaly Extremity exam reveals no edema no cyanosis or clubbing - Labs CBC & Chem 7: 06/09/16 09:00 06/09/16 09:00 Labs: Abnormal Lab Results - Last 24 Hours (Table) 06/02/16 06/08/16 06/09/16 Range/Units 14:30 20:29 07:33 WBC (3.8-10.6) k/uL RBC (3.80-5.40) m/uL Hgb (11.4-16.0) gm/dL Hct (34.0-46.0) % MCHC (31.0-37.0) g/dL RDW (11.5-15.5) % Neutrophils # (1.3-7.7) k/uL PT (9.0-12.0) sec BUN (7-17) mg/dL Creatinine (0.52-1.04) mg/dL Glucose (74-99) mg/dL POC Glucose (mg/dL) 339 H 147 H (75-99) mg/dL AST (14-36) U/L Total Protein (6.3-8.2) g/dL Albumin (3.5-5.0) g/dL Viral Test See Below H 06/09/16 06/09/16 06/09/16 Range/Units 09:00 09:00 09:00 WBC 12.3 H (3.8-10.6) k/uL RBC 3.22 L (3.80-5.40) m/uL Hgb 8.6 L (11.4-16.0) gm/dL Hct 30.0 L (34.0-46.0) % MCHC 28.7 L (31.0-37.0) g/dL RDW 21.6 H (11.5-15.5) % Neutrophils # 10.3 H (1.3-7.7) k/uL PT 23.6 H (9.0-12.0) sec BUN 64 H (7-17) mg/dL Creatinine 1.12 H (0.52-1.04) mg/dL Glucose 164 H (74-99) mg/dL POC Glucose (mg/dL) (75-99) mg/dL AST 12 L (14-36) U/L Total Protein 6.0 L (6.3-8.2) g/dL Albumin 2.7 L (3.5-5.0) g/dL Viral Test 06/09/16 06/09/16 Range/Units 11:56 17:07 WBC (3.8-10.6) k/uL RBC (3.80-5.40) m/uL Hgb (11.4-16.0) gm/dL Hct (34.0-46.0) % MCHC (31.0-37.0) g/dL RDW (11.5-15.5) % Neutrophils # (1.3-7.7) k/uL PT (9.0-12.0) sec BUN (7-17) mg/dL Creatinine (0.52-1.04) mg/dL Glucose (74-99) mg/dL POC Glucose (mg/dL) 217 H 240 H (75-99) mg/dL AST (14-36) U/L Total Protein (6.3-8.2) g/dL Albumin (3.5-5.0) g/dL Viral Test Assessment and Plan Plan: 1. Pneumonia with MRSA: on to IV vancomycin patient improving, pulmonary and infectious disease following Patient is having difficulty bringing up sputum 2. Acute on chronic systolic CHF exacerbation. Most recent echo shows an EF of 40-45%. BNP elevated in the 3000's. Chest x-ray showing peripheral vascular congestion. Patient received multiple extra doses of IV Lasix due to worsening shortness of breath and O2 desaturations this morning 3. Cardiac pauses. Continue with telemetry monitoring. Cardiology has been consulted. 4. Insulin-dependent diabetes mellitus, A1c is 7.2 continue was Levemir and NovoLog continue was current insulin treatment 5. Elevated troponin with no chest pain. Cardiology following no intervention recommended at this time 6. Acute anemia secondary to chronic blood loss and suspected lower GI bleed. 7. Chronic atrial fibrillation maintained on Coumadin for anticoagulation. Monitor PT/INRs closely due to Coumadin and Levaquin interaction. 8. History of COPD: Continue with nebulizer treatments. 9. Continue was current Coumadin treatment 10. Poor nutritional status, on protein supplements
[2016-06-09] MEDS: POLYETHYLENE GLYCOL 3350 17 GM POWD.PACK PO SCH (20:54)
[2016-06-09] MEDS: PRAVASTATIN SODIUM 20 MG TAB PO SCH (20:55)
[2016-06-09] MEDS: MONTELUKAST 10 MG TAB PO SCH (20:55)
[2016-06-09] MEDS: LOSARTAN 50 MG TAB PO SCH (20:56)
[2016-06-09 21:15] LABS: Glucose,Whole Blood 228 mg/dL (75-99)
[2016-06-10 07:20] LABS: Glucose,Whole Blood 156 mg/dL (75-99)
[2016-06-10] MEDS: IPRATROPIUM-ALBUTEROL 3 ML NEB INHALATION SCH ×4 (07:25→18:59)
[2016-06-10] MEDS: BUDESONIDE 1 MG/2 ML NEBU INHALATION SCH ×2 (07:26→18:59)
[2016-06-10 08:03] LABS: INR 2.6 (<1.1); Prothrombin Time 24.6 sec (9.0-12.0)
[2016-06-10] MEDS: INSULIN LISPRO (humaLOG) 300 UNIT/3 ML VIAL SQ SCH ×4 (08:03→21:09)
[2016-06-10 08:05] LABS: Anisocytosis Moderate; Basophils % (A) 0 %; CH 26.5; CHCM 28.3; Eosinophils % (A) 0 %; HCT 29.7 % (34.0-46.0); HDW 3.36; HGB 8.3 gm/dL (11.4-16.0); Hypochromasia Marked; Luc # (Auto) 0.15; Luc % (Auto) 1; Lymphocytes % (A) 10 %; MCV 93.6 fL (80.0-100.0); Macrocytosis Slight; Mean Platelet Volume 7.8; Monocytes # (A) 0.6 k/uL (0-1.0); Monocytes % (A) 5 %; Neutrophils # (A) 8.5 k/uL (1.3-7.7); Neutrophils % (A) 83 %; RBC 3.18 m/uL (3.80-5.40); RDW 22.3 % (11.5-15.5); WBC 10.3 k/uL (3.8-10.6); WBC (Perox) 11.16
[2016-06-10] MEDS: DIGOXIN 125 MCG TAB PO SCH (08:05)
[2016-06-10] MEDS: FERROUS SULFATE 325 MG TAB PO SCH ×2 (08:05→20:04)
[2016-06-10] MEDS: PANTOPRAZOLE 40 MG TABLET PO SCH (08:05)
[2016-06-10] MEDS: DOCUSATE 100 MG CAP PO SCH ×2 (08:05→20:04)
[2016-06-10] MEDS: ALPRAZolam 0.25 MG TAB PO SCH ×2 (08:05→21:09)
[2016-06-10] MEDS: INSULIN DETEMIR 100 UNIT/ML 10 ML VIAL SQ SCH ×2 (08:06→21:15)
[2016-06-10] MEDS: FUROSEMIDE 40 MG TAB PO SCH ×2 (08:06→17:49)
[2016-06-10] MEDS: guaiFENesin 600 MG TABLET.ER PO SCH ×2 (08:06→20:04)
[2016-06-10] MEDS: METOPROLOL SUCCINATE (ER) 100 MG TAB.ER.24H PO SCH ×2 (08:07→20:04)
[2016-06-10] MEDS: predniSONE 10 MG TAB PO SCH (08:08)
[2016-06-10] MEDS: SULFAMETHOX-TMP 400-80MG 1 EACH TAB PO SCH ×2 (08:08→20:06)
[2016-06-10] MEDS: OSELTAMIVIR 60 MG/10 ML ORAL SYRINGE PO SCH ×2 (08:08→21:15)
[2016-06-10 08:12] LABS: MCHC 27.8 g/dL (31.0-37.0)
[2016-06-10 08:28] LABS: ALT 27 U/L (9-52); AST 15 U/L (14-36); Alkaline Phosphatase 52 U/L (38-126); Anion Gap 7 mmol/L; Blood Urea Nitrogen 63 mg/dL (7-17); Calcium 8.8 mg/dL (8.4-10.2); Carbon Dioxide 28 mmol/L (22-30); Chloride 106 mmol/L (98-107); Glucose 149 mg/dL (74-99); Non-African American GFR(MDRD) 56 (>60 ml/min/1.73 sqM); Potassium 5.1 mmol/L (3.5-5.1); Sodium 141 mmol/L (137-145); Total Bilirubin 0.3 mg/dL (0.2-1.3); Total Protein 5.9 g/dL (6.3-8.2)
--- NOTE | 2016-06-10 11:59 | P.PN ---
Subjective Patient being treated for pneumonia with sepsis and CHF exacerbation. Patient also has a left groin seroma. Both sputum culture and wound culture growing MRSA. Currently on IV vancomycin. Had bronchoscopy during this admission. Per report showing influenza B positive. Patient started on Tamiflu. Bronchial washings growing MRSA and stenotrophomonas maltophilia. Antibiotics have been adjusted by infectious disease. Patient still having some congestion but does improve with coughing. Still feeling very weak. Denies any chest pain or shortness of breath. Denies any nausea or vomiting. Having bowel movements. Denies any difficulty urinating. Now on 3 L nasal cannula satting at 93%. Objective - Vital Signs Vital signs: Vital Signs Temp 96.9 F L 06/10/16 07:00 Pulse 86 06/10/16 11:48 Resp 20 06/10/16 07:00 BP 137/59 06/10/16 10:52 Pulse Ox 93 L 06/10/16 07:26 Intake & Output 06/09/16 06/10/16 06/10/16 18:59 06:59 18:59 Intake Total 480 Balance 480 Weight 123.5 kg Intake: Oral 480 Other: Voiding Method Bedpan Incontinent # Voids 4 2 # Bowel Movements 1 - Exam Head normocephalic Neck supple Lungs coarse breath sounds with wheeze. Did show some improvement with cough Heart regular rate and rhythm S1-S2, no rub or gallop Abdomen is soft nontender nondistended positive bowel sounds no hepatosplenomegaly Extremities no edema Neuro alert and orientated to 3 - Labs CBC & Chem 7: 06/10/16 06:00 06/10/16 06:00 Labs: Abnormal Lab Results - Last 24 Hours (Table) 06/09/16 06/09/16 06/09/16 Range/Units 11:56 17:07 21:13 RBC (3.80-5.40) m/uL Hgb (11.4-16.0) gm/dL Hct (34.0-46.0) % MCHC (31.0-37.0) g/dL RDW (11.5-15.5) % Neutrophils # (1.3-7.7) k/uL PT (9.0-12.0) sec BUN (7-17) mg/dL Glucose (74-99) mg/dL POC Glucose (mg/dL) 217 H 240 H 228 H (75-99) mg/dL Total Protein (6.3-8.2) g/dL Albumin (3.5-5.0) g/dL 06/10/16 06/10/16 06/10/16 Range/Units 06:00 06:00 06:00 RBC 3.18 L (3.80-5.40) m/uL Hgb 8.3 L (11.4-16.0) gm/dL Hct 29.7 L (34.0-46.0) % MCHC 27.8 L (31.0-37.0) g/dL RDW 22.3 H (11.5-15.5) % Neutrophils # 8.5 H (1.3-7.7) k/uL PT 24.6 H (9.0-12.0) sec BUN 63 H (7-17) mg/dL Glucose 149 H (74-99) mg/dL POC Glucose (mg/dL) (75-99) mg/dL Total Protein 5.9 L (6.3-8.2) g/dL Albumin 2.7 L (3.5-5.0) g/dL 06/10/16 Range/Units 07:00 RBC (3.80-5.40) m/uL Hgb (11.4-16.0) gm/dL Hct (34.0-46.0) % MCHC (31.0-37.0) g/dL RDW (11.5-15.5) % Neutrophils # (1.3-7.7) k/uL PT (9.0-12.0) sec BUN (7-17) mg/dL Glucose (74-99) mg/dL POC Glucose (mg/dL) 156 H (75-99) mg/dL Total Protein (6.3-8.2) g/dL Albumin (3.5-5.0) g/dL Assessment and Plan Plan: 1. Polymicrobial pneumonia with MRSA and stenotrophomonas maltophilia with sepsis: Chest x-ray showing cardiomegaly with peripheral vascular congestion and patchy density in the right lower lobe. Also elevated temp of 102, white count 16.4 and lactic acid of 2.1. Patient followed by infectious disease and pulmonary. Patient has PICC line. Continue with IV vancomycin and Fortaz. Patient is status post bronchoscopy. Bronch cultures positive for influenza B. Patient started on Tamiflu. bronch cultures also growing MRSA and stenotrophomonas maltophilia. Bronchoscopy pathology shows no evidence of malignant cells. Pulmonary service is ordering a computed tomography scan of chest. Infectious disease following. Currently on vancomycin and Bactrim 2. Acute on chronic systolic CHF exacerbation. Most recent echo shows an EF of 40-45%. BNP elevated in the 3000's. Chest x-ray showing peripheral vascular congestion. Evaluated by cardiology service. Continue Lasix 40 mg by mouth twice a day 3. Cardiac pauses. Continue with telemetry monitoring. Evaluated by cardiology and medications adjusted 4. Possible phlebitis of the left arm: Left arm pain and swelling bruising and firmness at old IV site. Showed improvement. Doppler shows no evidence of DVT. There was evidence of SVT. Keep arm elevated 5. Elevated troponin with no chest pain. Evaluated by cardiology 6. Acute anemia secondary to chronic blood loss and suspected lower GI bleed as well as iron deficiency anemia. Hemoglobin is up to 8.4. Patient received 1 dose of IV iron. And then will start ferrous sulfate 325 mg twice a day. Iron level low at 29. Was unable to have a colonoscopy during last admission due to multiple complications. She had a EGD last month at [facility] that was unremarkable. We'll continue to monitor hemoglobin. 7. Chronic atrial fibrillation maintained on Coumadin for anticoagulation. INR 2.6. Start Coumadin 2 mg daily. 8. History of COPD: Continue with nebulizer treatments. 9. Diabetes mellitus insulin-dependent: Continue Levemir and sliding scale coverage. Continue sliding scale coverage. Hemoglobin A1c of 7.2. 10. Left groin seroma: Wound culture growing MRSA. Continue vancomycin. Continue wound care. Followed by Dr. García. At discharge patient will follow -up with Dr. García in 2 weeks wound care center 11. Severe protein calorie malnutrition: Continue with protein supplements 12. Constipation: Improved 13. Acute bronchiectasis likely related to pneumonia. Pulmonary following in the recommending vest therapy. GI prophylaxis Protonix and DVT prophylaxis Coumadin Anticipate discharge possibly to [facility] tomorrow
[2016-06-10] MEDS: LACTATED RINGERS 1,000 ML IV SCH (12:28)
[2016-06-10] MEDS: HYDROcodone/APAP 10-325MG 1 EACH TAB PO PRN ×2 (12:29→20:03)
[2016-06-10 12:35] LABS: Glucose,Whole Blood 213 mg/dL (75-99)
[2016-06-10 16:32] LABS: Glucose,Whole Blood 280 mg/dL (75-99)
[2016-06-10] MEDS: WARFARIN 2 MG TAB PO SCH (17:51)
--- NOTE | 2016-06-10 17:57 | P.PN ---
Subjective This is a 76-year-old female patient who is being evaluated and examined today on the sixth floor. This patient is well-known to our service. This patient recently was hospitalized in April with a left leg ischemia status post thrombectomy, pneumonia, COPD exacerbation, GI bleed, and CHF exacerbation. The patient was subsequently discharged to [facility]. She came back to the emergency room with some shortness of breath, cough, fever, generalized weakness and lethargy. Patient has multiple readdmissions to the hospital due to her respiratory status and develops reoccuring pnemonia with her bronchiectasis. The patient was admitted with stay with pneumonia, bronchospasms, acute hypoxia, chronic anemia, febrile illness and elevated troponins. The patient is known to have chronic hypoxia and uses 3 L of oxygen at the rehab facility as well and she wears CPAP for obstructive sleep apnea. The patient underwent a bronchoscopy with Dr. Pittman. The patient had extensive amount of purulent secretions that were aspirated from both lungs, and both lungs appear to be plugged, patient tolerated procedure well. Patient states she feels significantly better post procedure. Upon examination the patient is resting in bed up on 4 L of oxygen via nasal cannula. She continues to have shortness of breath, however slighlty improved. Continues with chronic cough which has been greater than a six-month minimum , occasionally productive with clear phlegm. She continues to use her flutter valve, however the patient has insufficient expiratory force therefore her flutter valve is a tried and failed alternative therapy to her bronchiectasis. Chest x-ray and CT were both reviewed and are consistent with bronchiectasis. Physical manual percussion therapy has been tried however the patient cannot tolerate the positioning due to her physical limitations. Objective - Vital Signs Vital signs: Vital Signs Temp 96.9 F L 06/10/16 15:00 Pulse 84 06/10/16 15:47 Resp 19 06/10/16 15:00 BP 148/72 06/10/16 15:00 Pulse Ox 90 L 06/10/16 15:00 Intake & Output 06/09/16 06/10/16 06/10/16 18:59 06:59 18:59 Intake Total 480 Balance 480 Weight 123.5 kg Intake: Oral 480 Other: Voiding Method Bedpan Incontinent # Voids 4 2 5 # Bowel Movements 1 - Exam GENERAL EXAM: Alert, active, comfortable in no apparent distress. HEAD: Normocephalic. EYES: Normal reaction of pupils, equal size. NOSE: Clear with pink turbinates. THROAT: No erythema or exudates. NECK: No masses, no JVD. CHEST: No chest wall deformity. LUNGS: Lungs noted to be bilaterally coarse and congested, with few faint rhonchi. Some fine crackles at the bases. CVS: S1 and S2 normal with no audible mumurs, regular rhythm. ABDOMEN: No hepatosplenomegaly, normal bowel sounds, no guarding or rigidity. EXTREMITIES: Trace edema noted, pedal pulses palpable. SKIN: No rashes CENTRAL NERVOUS SYSTEM: No focal deficits, tone is normal in all 4 extremities. - Labs CBC & Chem 7: 06/10/16 06:00 06/10/16 06:00 Labs: Abnormal Lab Results - Last 24 Hours (Table) 06/09/16 06/10/16 06/10/16 Range/Units 21:13 06:00 06:00 RBC 3.18 L (3.80-5.40) m/uL Hgb 8.3 L (11.4-16.0) gm/dL Hct 29.7 L (34.0-46.0) % MCHC 27.8 L (31.0-37.0) g/dL RDW 22.3 H (11.5-15.5) % Neutrophils # 8.5 H (1.3-7.7) k/uL PT 24.6 H (9.0-12.0) sec BUN (7-17) mg/dL Glucose (74-99) mg/dL POC Glucose (mg/dL) 228 H (75-99) mg/dL Total Protein (6.3-8.2) g/dL Albumin (3.5-5.0) g/dL 06/10/16 06/10/16 06/10/16 Range/Units 06:00 07:00 12:29 RBC (3.80-5.40) m/uL Hgb (11.4-16.0) gm/dL Hct (34.0-46.0) % MCHC (31.0-37.0) g/dL RDW (11.5-15.5) % Neutrophils # (1.3-7.7) k/uL PT (9.0-12.0) sec BUN 63 H (7-17) mg/dL Glucose 149 H (74-99) mg/dL POC Glucose (mg/dL) 156 H 213 H (75-99) mg/dL Total Protein 5.9 L (6.3-8.2) g/dL Albumin 2.7 L (3.5-5.0) g/dL 06/10/16 Range/Units 16:30 RBC (3.80-5.40) m/uL Hgb (11.4-16.0) gm/dL Hct (34.0-46.0) % MCHC (31.0-37.0) g/dL RDW (11.5-15.5) % Neutrophils # (1.3-7.7) k/uL PT (9.0-12.0) sec BUN (7-17) mg/dL Glucose (74-99) mg/dL POC Glucose (mg/dL) 280 H (75-99) mg/dL Total Protein (6.3-8.2) g/dL Albumin (3.5-5.0) g/dL Assessment and Plan Plan: Assessment MRSA Pneumonia with sepsis Acute exacerbation of chronic obstructive pulmonary disease Acute on chronic systolic congestive heart failure exacerbation Elevated troponins Acute anemia secondary to chronic blood loss and suspected lower GI bleed Chronic atrial fibrillation Diabetes mellitus insulin-dependent Acute on chronic hypoxic respiratory failure Obesity hypoventilation Bronchiectasis Chronic cough lasting longer than 6 months Plan Patient can be cleared from a pulmonary standpoint tomorrow. Medications have been reviewed and will be continued as ordered. Cardiology and ID is also on consult. Continues in contact per cautioned her MRSA in the sputum. Physical percussion is noted to be a failed therapy due to the patient being unable to tolerate positioning as well as the physical limitations of her body. The flutter therapy is ineffective as well due to the patient having an insufficient expiratory force. Both chest x-ray and CT results reviewed and are consistent with her bronchiectasis. Continue with supportive care. This patient would best benefit with an airway clearance vest therapy, which we will provide a prescription for her. We will continue to monitor labs/results and adjust treatment as necessary. I performed an examination of the patient and discussed their management with the nurse practitioner. I have reviewed the nurse practitioner's note and agree with the documented findings and plan of care.
[2016-06-10] MEDS: VANCOMYCIN 1,000 MG in SODIUM CHLORIDE 0.9% 250 ML IVPB SCH (18:35)
[2016-06-10] MEDS: MONTELUKAST 10 MG TAB PO SCH (20:04)
[2016-06-10] MEDS: POLYETHYLENE GLYCOL 3350 17 GM POWD.PACK PO SCH (20:05)
[2016-06-10] MEDS: LOSARTAN 50 MG TAB PO SCH (20:05)
[2016-06-10] MEDS: PRAVASTATIN SODIUM 20 MG TAB PO SCH (20:05)
[2016-06-10 20:51] LABS: Glucose,Whole Blood 264 mg/dL (75-99)
[2016-06-11 06:00] LABS: Anisocytosis Moderate; Basophils % (A) 0 %; CH 26.5; CHCM 29.1; Eosinophils % (A) 0 %; HCT 30.4 % (34.0-46.0); HDW 3.55; HGB 9.1 gm/dL (11.4-16.0); Hypochromasia Marked; Luc # (Auto) 0.13; Luc % (Auto) 1; Lymphocytes # (A) 1.1 k/uL (1.0-4.8); Lymphocytes % (A) 10 %; MCH 27.4 pg (25.0-35.0); MCHC 30.1 g/dL (31.0-37.0); Macrocytosis Slight; Mean Platelet Volume 7.5; Monocytes # (A) 0.7 k/uL (0-1.0); Monocytes % (A) 6 %; Neutrophils # (A) 9.3 k/uL (1.3-7.7); Neutrophils % (A) 82 %; Poikilocytosis Slight; RBC 3.34 m/uL (3.80-5.40); RDW 22.1 % (11.5-15.5); WBC 11.3 k/uL (3.8-10.6)
[2016-06-11 06:05] LABS: INR 2.3 (<1.1); Prothrombin Time 21.9 sec (9.0-12.0)
[2016-06-11 06:18] LABS: Calcium 8.8 mg/dL (8.4-10.2); Potassium 5.1 mmol/L (3.5-5.1)
[2016-06-11] MEDS: BUDESONIDE 1 MG/2 ML NEBU INHALATION SCH ×2 (07:13→21:07)
[2016-06-11] MEDS: IPRATROPIUM-ALBUTEROL 3 ML NEB INHALATION SCH ×4 (07:13→21:07)
[2016-06-11 07:26] LABS: Glucose,Whole Blood 152 mg/dL (75-99)
[2016-06-11] MEDS: INSULIN DETEMIR 100 UNIT/ML 10 ML VIAL SQ SCH ×2 (08:01→21:37)
[2016-06-11] MEDS: guaiFENesin 600 MG TABLET.ER PO SCH ×2 (08:01→20:14)
[2016-06-11] MEDS: predniSONE 10 MG TAB PO SCH (08:02)
[2016-06-11] MEDS: FUROSEMIDE 40 MG TAB PO SCH ×2 (08:02→16:06)
[2016-06-11] MEDS: OSELTAMIVIR 60 MG/10 ML ORAL SYRINGE PO SCH ×2 (08:02→21:37)
[2016-06-11] MEDS: HYDROcodone/APAP 10-325MG 1 EACH TAB PO PRN ×2 (08:02→15:42)
[2016-06-11] MEDS: ALPRAZolam 0.25 MG TAB PO SCH ×2 (08:02→20:14)
[2016-06-11] MEDS: DOCUSATE 100 MG CAP PO SCH ×2 (08:03→20:14)
[2016-06-11] MEDS: METOPROLOL SUCCINATE (ER) 100 MG TAB.ER.24H PO SCH ×2 (08:03→20:14)
[2016-06-11] MEDS: SULFAMETHOX-TMP 400-80MG 1 EACH TAB PO SCH ×2 (08:03→20:15)
[2016-06-11] MEDS: FERROUS SULFATE 325 MG TAB PO SCH ×2 (08:03→20:14)
[2016-06-11] MEDS: PANTOPRAZOLE 40 MG TABLET PO SCH (08:03)
[2016-06-11] MEDS: INSULIN LISPRO (humaLOG) 300 UNIT/3 ML VIAL SQ SCH ×4 (08:04→21:38)
[2016-06-11] MEDS: DIGOXIN 125 MCG TAB PO SCH (08:04)
[2016-06-11 12:15] LABS: Glucose,Whole Blood 172 mg/dL (75-99)
[2016-06-11] MEDS: LACTATED RINGERS 1,000 ML IV SCH (12:17)
--- NOTE | 2016-06-11 13:11 | P.PN ---
Subjective This is a 76-year-old female patient who is being evaluated and examined today on the sixth floor. This patient is well-known to our service. This patient recently was hospitalized in April with a left leg ischemia status post thrombectomy, pneumonia, COPD exacerbation, GI bleed, and CHF exacerbation. The patient was subsequently discharged to [facility]. She came back to the emergency room with some shortness of breath, cough, fever, generalized weakness and lethargy. Patient has multiple readdmissions to the hospital due to her respiratory status and develops reoccuring pnemonia with her bronchiectasis. The patient was admitted with stay with pneumonia, bronchospasms, acute hypoxia, chronic anemia, febrile illness and elevated troponins. The patient is known to have chronic hypoxia and uses 3 L of oxygen at the rehab facility as well and she wears CPAP for obstructive sleep apnea. The patient underwent a bronchoscopy with Dr. Pittman. The patient had extensive amount of purulent secretions that were aspirated from both lungs, and both lungs appear to be plugged, patient tolerated procedure well. Patient states she feels significantly better post procedure. Upon examination the patient is resting in bed up on 3-4 L of oxygen via nasal cannula. She continues to have shortness of breath, however slighlty improved. Continues with chronic cough which has been greater than a six-month minimum , occasionally productive with clear phlegm. She continues to use her flutter valve, however the patient has insufficient expiratory force therefore her flutter valve is a tried and failed alternative therapy to her bronchiectasis. Chest x-ray and CT were both reviewed and are consistent with bronchiectasis. Physical manual percussion therapy has been tried however the patient cannot tolerate the positioning due to her physical limitations. Objective - Vital Signs Vital signs: Vital Signs Temp 96.9 F L 06/11/16 07:00 Pulse 96 06/11/16 12:30 Resp 20 06/11/16 08:00 BP 140/73 06/11/16 07:00 Pulse Ox 95 06/11/16 07:00 Intake & Output 06/10/16 06/11/16 06/11/16 18:59 06:59 18:59 Intake Total 200 Balance 200 Weight 115.5 kg 115.5 kg Intake: Oral 200 Other: Voiding Method Bedpan Bedpan Bedpan Incontinent # Voids 5 2 - Exam GENERAL EXAM: Alert, active, comfortable in no apparent distress. HEAD: Normocephalic. EYES: Normal reaction of pupils, equal size. NOSE: Clear with pink turbinates. THROAT: No erythema or exudates. NECK: No masses, no JVD. CHEST: No chest wall deformity. LUNGS: Lungs noted to be bilaterally coarse and congested, with few faint rhonchi. Some fine crackles at the bases. CVS: S1 and S2 normal with no audible mumurs, regular rhythm. ABDOMEN: No hepatosplenomegaly, normal bowel sounds, no guarding or rigidity. EXTREMITIES: Trace edema noted, pedal pulses palpable. SKIN: No rashes CENTRAL NERVOUS SYSTEM: No focal deficits, tone is normal in all 4 extremities. - Labs CBC & Chem 7: 06/11/16 05:45 06/11/16 05:45 Labs: Abnormal Lab Results - Last 24 Hours (Table) 06/10/16 06/10/16 06/11/16 Range/Units 16:30 20:49 05:45 WBC 11.3 H (3.8-10.6) k/uL RBC 3.34 L (3.80-5.40) m/uL Hgb 9.1 L (11.4-16.0) gm/dL Hct 30.4 L (34.0-46.0) % MCHC 30.1 L (31.0-37.0) g/dL RDW 22.1 H (11.5-15.5) % Neutrophils # 9.3 H (1.3-7.7) k/uL PT (9.0-12.0) sec BUN (7-17) mg/dL Creatinine (0.52-1.04) mg/dL Glucose (74-99) mg/dL POC Glucose (mg/dL) 280 H 264 H (75-99) mg/dL 06/11/16 06/11/16 06/11/16 Range/Units 05:45 05:45 07:25 WBC (3.8-10.6) k/uL RBC (3.80-5.40) m/uL Hgb (11.4-16.0) gm/dL Hct (34.0-46.0) % MCHC (31.0-37.0) g/dL RDW (11.5-15.5) % Neutrophils # (1.3-7.7) k/uL PT 21.9 H (9.0-12.0) sec BUN 56 H (7-17) mg/dL Creatinine 1.10 H (0.52-1.04) mg/dL Glucose 163 H (74-99) mg/dL POC Glucose (mg/dL) 152 H (75-99) mg/dL 06/11/16 Range/Units 12:13 WBC (3.8-10.6) k/uL RBC (3.80-5.40) m/uL Hgb (11.4-16.0) gm/dL Hct (34.0-46.0) % MCHC (31.0-37.0) g/dL RDW (11.5-15.5) % Neutrophils # (1.3-7.7) k/uL PT (9.0-12.0) sec BUN (7-17) mg/dL Creatinine (0.52-1.04) mg/dL Glucose (74-99) mg/dL POC Glucose (mg/dL) 172 H (75-99) mg/dL Assessment and Plan Plan: Assessment MRSA Pneumonia with sepsis Acute exacerbation of chronic obstructive pulmonary disease Acute on chronic systolic congestive heart failure exacerbation Elevated troponins Acute anemia secondary to chronic blood loss and suspected lower GI bleed Chronic atrial fibrillation Diabetes mellitus insulin-dependent Acute on chronic hypoxic respiratory failure Obesity hypoventilation Bronchiectasis Chronic cough lasting longer than 6 months Plan Patient can be cleared from a pulmonary standpoint for discharge. Medications have been reviewed and will be continued as ordered. Cardiology and ID is also on consult. Continues in contact per cautioned her MRSA in the sputum. Physical percussion is noted to be a failed therapy due to the patient being unable to tolerate positioning as well as the physical limitations of her body. The flutter therapy is ineffective as well due to the patient having an insufficient expiratory force. Both chest x-ray and CT results reviewed and are consistent with her bronchiectasis. Continue with supportive care. This patient would best benefit with an airway clearance vest therapy, which we will provide a prescription for her. We will continue to monitor labs/results and adjust treatment as necessary. I performed an examination of the patient and discussed their management with the nurse practitioner. I have reviewed the nurse practitioner's note and agree with the documented findings and plan of care.
--- NOTE | 2016-06-11 13:28 | P.PN ---
Subjective Principal diagnosis: Pneumonia with sepsis Patient is a 76-year-old female who was readmitted to [facility] due to fever cough and worsening shortness of breath She had evidence of pneumonia with sepsis, she also had evidence of anemia was hemoglobin of 7.8, evidence of acute congestive heart failure exacerbation, she has known history of atrial fibrillation. Today patient is complaining of abdominal pain, and constipation, she is feeling weak and she states she is not ready to be discharged at this time. Objective - Vital Signs Vital signs: Vital Signs Temp 96.9 F L 06/11/16 07:00 Pulse 96 06/11/16 12:30 Resp 20 06/11/16 08:00 BP 140/73 06/11/16 07:00 Pulse Ox 95 06/11/16 07:00 Intake & Output 06/10/16 06/11/16 06/11/16 18:59 06:59 18:59 Intake Total 200 Balance 200 Weight 115.5 kg 115.5 kg Intake: Oral 200 Other: Voiding Method Bedpan Bedpan Bedpan Incontinent # Voids 5 2 - Exam In general patient is alert and oriented 3 in no apparent distress HEENT head normocephalic and atraumatic Neck is supple no JVD no goiter no lymphadenopathy Chest exam reveals coarse crackles in both lung olivares no wheezing Cardiac exam reveals regular heart sounds no murmurs Abdomen is soft with mild diffuse tenderness no organomegaly Extremity exam reveals no edema no cyanosis or clubbing - Labs CBC & Chem 7: 06/11/16 05:45 06/11/16 05:45 Labs: Abnormal Lab Results - Last 24 Hours (Table) 06/10/16 06/10/16 06/11/16 Range/Units 16:30 20:49 05:45 WBC 11.3 H (3.8-10.6) k/uL RBC 3.34 L (3.80-5.40) m/uL Hgb 9.1 L (11.4-16.0) gm/dL Hct 30.4 L (34.0-46.0) % MCHC 30.1 L (31.0-37.0) g/dL RDW 22.1 H (11.5-15.5) % Neutrophils # 9.3 H (1.3-7.7) k/uL PT (9.0-12.0) sec BUN (7-17) mg/dL Creatinine (0.52-1.04) mg/dL Glucose (74-99) mg/dL POC Glucose (mg/dL) 280 H 264 H (75-99) mg/dL 06/11/16 06/11/16 06/11/16 Range/Units 05:45 05:45 07:25 WBC (3.8-10.6) k/uL RBC (3.80-5.40) m/uL Hgb (11.4-16.0) gm/dL Hct (34.0-46.0) % MCHC (31.0-37.0) g/dL RDW (11.5-15.5) % Neutrophils # (1.3-7.7) k/uL PT 21.9 H (9.0-12.0) sec BUN 56 H (7-17) mg/dL Creatinine 1.10 H (0.52-1.04) mg/dL Glucose 163 H (74-99) mg/dL POC Glucose (mg/dL) 152 H (75-99) mg/dL 06/11/16 Range/Units 12:13 WBC (3.8-10.6) k/uL RBC (3.80-5.40) m/uL Hgb (11.4-16.0) gm/dL Hct (34.0-46.0) % MCHC (31.0-37.0) g/dL RDW (11.5-15.5) % Neutrophils # (1.3-7.7) k/uL PT (9.0-12.0) sec BUN (7-17) mg/dL Creatinine (0.52-1.04) mg/dL Glucose (74-99) mg/dL POC Glucose (mg/dL) 172 H (75-99) mg/dL Assessment and Plan Plan: 1. Pneumonia with MRSA: on to IV vancomycin patient improving, pulmonary and infectious disease following Patient is having difficulty bringing up sputum 2. Acute on chronic systolic CHF exacerbation. Most recent echo shows an EF of 40-45%. BNP elevated in the 3000's. Chest x-ray showing peripheral vascular congestion. Patient received multiple extra doses of IV Lasix due to worsening shortness of breath and O2 desaturations this morning 3. Cardiac pauses. Continue with telemetry monitoring. Cardiology has been consulted. 4. Insulin-dependent diabetes mellitus, A1c is 7.2 continue was Levemir and NovoLog continue was current insulin treatment 5. Elevated troponin with no chest pain. Cardiology following no intervention recommended at this time 6. Acute anemia secondary to chronic blood loss and suspected lower GI bleed. 7. Chronic atrial fibrillation maintained on Coumadin for anticoagulation. Monitor PT/INRs closely due to Coumadin and Levaquin interaction. 8. History of COPD: Continue with nebulizer treatments. 9. Continue with current Coumadin treatment 10. Abdominal pain was constipation patient received Colace and MiraLAX will monitor at this time if abdominal pain is not improving will check computed tomography scan of the abdomen 11. Poor nutritional status, on protein supplements
[2016-06-11] MEDS ORDERED: VANCOMYCIN TROUGH DUE 1 EACH MISC MISCELLANE ONE (15:00)
[2016-06-11] MEDS: VANCOMYCIN 1,000 MG in SODIUM CHLORIDE 0.9% 250 ML IVPB SCH (15:37)
[2016-06-11 17:26] LABS: Glucose,Whole Blood 136 mg/dL (75-99)
[2016-06-11] MEDS ORDERED: ONDANSETRON 4 MG/2 ML VIAL IVP PRN (18:15)
[2016-06-11] MEDS: WARFARIN 2 MG TAB PO SCH (18:29)
[2016-06-11] MEDS: LOSARTAN 50 MG TAB PO SCH (20:14)
[2016-06-11] MEDS: PRAVASTATIN SODIUM 20 MG TAB PO SCH (20:14)
[2016-06-11] MEDS: MONTELUKAST 10 MG TAB PO SCH (20:14)
[2016-06-11] MEDS: POLYETHYLENE GLYCOL 3350 17 GM POWD.PACK PO SCH (20:15)
[2016-06-11 21:11] LABS: Glucose,Whole Blood 143 mg/dL (75-99)
[2016-06-12 06:56] LABS: Glucose,Whole Blood 107 mg/dL (75-99)
[2016-06-12] MEDS: INSULIN LISPRO (humaLOG) 300 UNIT/3 ML VIAL SQ SCH ×4 (08:02→22:20)
[2016-06-12] MEDS: LACTATED RINGERS 1,000 ML IV SCH (09:03)
[2016-06-12] MEDS: SULFAMETHOX-TMP 400-80MG 1 EACH TAB PO SCH ×2 (09:04→22:19)
[2016-06-12] MEDS: ALPRAZolam 0.25 MG TAB PO SCH ×2 (09:04→22:17)
[2016-06-12] MEDS: METOPROLOL SUCCINATE (ER) 100 MG TAB.ER.24H PO SCH ×2 (09:04→22:19)
[2016-06-12] MEDS: PANTOPRAZOLE 40 MG TABLET PO SCH (09:05)
[2016-06-12] MEDS: guaiFENesin 600 MG TABLET.ER PO SCH ×2 (09:05→22:18)
[2016-06-12] MEDS: predniSONE 10 MG TAB PO SCH (09:05)
[2016-06-12] MEDS: DOCUSATE 100 MG CAP PO SCH ×2 (09:05→22:18)
[2016-06-12] MEDS: FUROSEMIDE 40 MG TAB PO SCH ×2 (09:05→15:22)
[2016-06-12] MEDS: FERROUS SULFATE 325 MG TAB PO SCH ×2 (09:05→22:18)
[2016-06-12] MEDS: INSULIN DETEMIR 100 UNIT/ML 10 ML VIAL SQ SCH ×2 (09:06→22:17)
[2016-06-12] MEDS: DIGOXIN 125 MCG TAB PO SCH (09:06)
[2016-06-12] MEDS: BUDESONIDE 1 MG/2 ML NEBU INHALATION SCH ×2 (10:19→20:42)
[2016-06-12] MEDS: IPRATROPIUM-ALBUTEROL 3 ML NEB INHALATION SCH ×4 (10:20→20:42)
[2016-06-12 11:56] LABS: Glucose,Whole Blood 156 mg/dL (75-99)
--- NOTE | 2016-06-12 12:04 | PN ---
Maria De Jesus Bui is seen, evaluated and examined on fourth floor. Patient is down to 3 liters of oxygen now, breathing more comfortably. Still has shortness of breath. The patient is being followed by vascular surgery as well. Clinically patient is slowly recovering. CT scan of the chest has been reviewed and revealed presence of right mid lung field as well as right lower lobe localized bronchiectasis. The patient is being arranged for vest therapy as well. Her blood pressure is 140/80, respiratory rate 18, pulse 120, temperature 97, saturation 94% on CPAP. HEENT EXAMINATION: Otherwise unremarkable. ( ) opening is present. NECK: Supple. No lymphadenopathy, jugular venous distention or carotid bruit. LUNGS: Bilateral good air entry is present without any significant rales, rhonchi. HEART: Regular rate and rhythm. S1 and S2 audible. ABDOMEN: Soft. NEUROLOGICAL EXAMINATION: Awake. IMPRESSION: 1. Sleep-disordered breathing and sleep apnea. Recommend to continue his CPAP machine. Patient to be evaluated with a sleep study on outpatient basis. 2. Severe chronic obstructive pulmonary disease, emphysema. 3. Methicillin-resistant Staphylococcus aureus pneumonia. 4. Chronic atrial fibrillation. 5. Peripheral arterial disease. 6. Bronchiectasis. PLAN: As above. Continue supportive care. Continue deep breathing and incentive spirometry. The patient is being arranged for vest therapy. Will continue BiPAP. Will follow the patient closely in outpatient setting. If patient is discharged, we will follow.
[2016-06-12 12:14] LABS: Anisocytosis Moderate; Basophils % (A) 0 %; CH 26.9; CHCM 29.3; Eosinophils % (A) 0 %; HCT 32.9 % (34.0-46.0); HDW 3.55; HGB 9.9 gm/dL (11.4-16.0); Hypochromasia Marked; Luc % (Auto) 2; Lymphocytes # (A) 0.4 k/uL (1.0-4.8); Lymphocytes % (A) 3 %; MCH 27.5 pg (25.0-35.0); MCV 91.6 fL (80.0-100.0); Macrocytosis Slight; Mean Platelet Volume 7.6; Monocytes # (A) 0.8 k/uL (0-1.0); Monocytes % (A) 6 %; Neutrophils # (A) 12.1 k/uL (1.3-7.7); Neutrophils % (A) 89 %; Poikilocytosis Slight; RBC 3.59 m/uL (3.80-5.40); RDW 22.2 % (11.5-15.5); WBC 13.6 k/uL (3.8-10.6); WBC (Perox) 14.04
--- NOTE | 2016-06-12 12:14 | P.PN ---
Subjective Principal diagnosis: Pneumonia with sepsis Patient is a 76-year-old female who was readmitted to [facility] due to fever cough and worsening shortness of breath She had evidence of pneumonia with sepsis, she also had evidence of anemia was hemoglobin of 7.8, evidence of acute congestive heart failure exacerbation, she has known history of atrial fibrillation. Today patient is complaining of abdominal pain, and constipation, she is feeling weak and she states she is not ready to be discharged at this time. patient is still complaining of abdominal pain and constipation Objective - Vital Signs Vital signs: Vital Signs Temp 97.7 F 06/12/16 07:00 Pulse 100 06/12/16 12:00 Resp 18 06/12/16 08:00 BP 145/88 06/12/16 07:00 Pulse Ox 94 L 06/12/16 07:00 Intake & Output 06/11/16 06/12/16 06/12/16 18:59 06:59 18:59 Intake Total 400 Balance 400 Weight 115.5 kg 117.5 kg Intake: Oral 400 Other: Voiding Method Bedpan Bedpan # Voids 0 2 1 # Bowel Movements 0 0 - Exam In general patient is alert and oriented 3 in no apparent distress HEENT head normocephalic and atraumatic Neck is supple no JVD no goiter no lymphadenopathy Chest exam reveals coarse crackles in both lung olivares no wheezing Cardiac exam reveals regular heart sounds no murmurs Abdomen is soft with mild diffuse tenderness no organomegaly Extremity exam reveals no edema no cyanosis or clubbing - Labs CBC & Chem 7: 06/11/16 05:45 06/11/16 05:45 Labs: Abnormal Lab Results - Last 24 Hours (Table) 06/11/16 06/11/16 06/11/16 Range/Units 12:13 17:24 21:08 POC Glucose (mg/dL) 172 H 136 H 143 H (75-99) mg/dL 06/12/16 06/12/16 Range/Units 06:54 11:54 POC Glucose (mg/dL) 107 H 156 H (75-99) mg/dL Assessment and Plan Plan: 1. Pneumonia with MRSA: on to IV vancomycin patient improving, pulmonary and infectious disease following Patient is having difficulty bringing up sputum 2. Acute on chronic systolic CHF exacerbation. Most recent echo shows an EF of 40-45%. BNP elevated in the 3000's. Chest x-ray showing peripheral vascular congestion. Patient received multiple extra doses of IV Lasix due to worsening shortness of breath and O2 desaturations this morning 3. Cardiac pauses. Continue with telemetry monitoring. Cardiology has been consulted. 4. Insulin-dependent diabetes mellitus, A1c is 7.2 continue was Levemir and NovoLog continue was current insulin treatment 5. Elevated troponin with no chest pain. Cardiology following no intervention recommended at this time 6. Acute anemia secondary to chronic blood loss and suspected lower GI bleed. 7. Chronic atrial fibrillation maintained on Coumadin for anticoagulation. Monitor PT/INRs closely due to Coumadin and Levaquin interaction. 8. History of COPD: Continue with nebulizer treatments. 9. Continue with current Coumadin treatment 10. Abdominal pain was constipation patient received Colace and MiraLAX, will add milk of magnesia will check computed tomography scan of the abdomen and pelvis without contrast will check amylase and lipase 11. Poor nutritional status, on protein supplements
[2016-06-12] MEDS ORDERED: MAGNESIUM HYDROXIDE 2,400 MG/10 ML CUP PO PRN (12:15)
[2016-06-12 12:27] LABS: INR 2.2 (<1.1); Prothrombin Time 21.3 sec (9.0-12.0)
[2016-06-12 12:32] LABS: ALT 30 U/L (9-52); AST 16 U/L (14-36); Alkaline Phosphatase 53 U/L (38-126); Amylase 40 U/L (30-110); Anion Gap 5 mmol/L; Blood Urea Nitrogen 50 mg/dL (7-17); Carbon Dioxide 32 mmol/L (22-30); Chloride 101 mmol/L (98-107); Glucose 141 mg/dL (74-99); Non-African American GFR(MDRD) 56 (>60 ml/min/1.73 sqM); Potassium 5.7 mmol/L (3.5-5.1); Sodium 138 mmol/L (137-145); Total Bilirubin 0.5 mg/dL (0.2-1.3)
[2016-06-12] MEDS: HYDROcodone/APAP 10-325MG 1 EACH TAB PO PRN (13:35)
--- NOTE | 2016-06-12 14:23 | CT ---
EXAMINATION TYPE: CT abdomen pelvis wo con DATE OF EXAM: 06/12/2016 12:52 PM COMPARISON: 04/26/2016 INDICATION: Abdominal pains DLP: 2166.9 mGycm, Automated exposure control for dose reduction was used. CONTRAST: 0 mL of Omnipaque 300. Study performed without Oral Contrast TECHNIQUE: Axial images were obtained from above the diaphragm to the pubic rami in the axial plane a t 5 mm thick sections. Reconstructed images are reviewed on the computer in the coronal plane. FINDINGS: Limited CT sections are obtained the lung bases. There is a consolidation at the left base. Correlat e for atelectasis. Pneumonia could be considered. Milder infiltrate is at the right base. Correlate f or atelectasis or pneumonia.. Minimal pericardial effusion is present. CT ABDOMEN: There is a large slightly dense area within the subcutaneous tissues along the left flank . Findings could be related to hematoma and bruising. This extends out of the [id number]. Underlyi ng loculated collection is not identified. Periumbilical hernia is present. This contains mesenteric fat without loops of bowel. Liver: Normal Spleen: Normal Pancreas: Slightly atrophic. Adrenal glands: Left adrenal gland is enlarged at 2.1 cm. Right adrenal gland is normal. Gallbladder: Normal Kidneys: Some left perinephric stranding is present.. No hydronephrosis is present. No cysts are pr esent. No renal stones are identified. Aorta: Vascular calcification is within the aorta. Inferior vena cava: Normal. CT PELVIS: Some minimal fluid is within the pelvis. There may be fluid within the left inguinal herni a as well. Loops of bowel within the abdomen and pelvis are normal. There are loops of bowel which are incom pletely distended or lack oral contrast limiting their evaluation. Appendix: Normal as visualized. Urinary bladder: Normal. Genitourinary structures: Uterus is not identified. Adnexal regions appear clear. Osseous structures: No suspicious lytic or sclerotic lesions. IMPRESSIONS: 1. There appears be a large hematoma along the lateral left flank. Clinical correlation is recommend ed. Finding is new from 04/26/2016. 2. Enlarged left adrenal gland. 3. Bibasilar infiltrates. Correlate for atelectasis versus pneumonia. 4. Mild free fluid within the pelvis.
[2016-06-12] MEDS: VANCOMYCIN 1,000 MG in SODIUM CHLORIDE 0.9% 250 ML IVPB SCH (15:22)
[2016-06-12 16:56] LABS: Glucose,Whole Blood 173 mg/dL (75-99)
[2016-06-12] MEDS: WARFARIN 2 MG TAB PO SCH (17:39)
--- NOTE | 2016-06-12 17:43 | P.PN ---
Subjective Principal diagnosis: Shortness of breath 76-year-old female who has an extensive hospitalization currently at 7 days of admission but actually it's been longer than that due to her short hiatus out of the hospital. She was deemed medically stable to be to leave the hospital to attend her 's this occurred while she has been so ill. The patient was admitted with severe shortness of breath from the extended care facility she was being cared for after her gastrointestinal bleeding and worsening of her underlying pulmonary disease. The patient does have severe underlying pulmonary disease and wears oxygen at all times and does use a CPAP at night because of her sleep apnea. Recently this has definitely been worse and because of concerns to ongoing pneumonia the infectious diseases consultation was requested This patient relates she just feeling slightly better than when she was first admitted. She was having difficulties that time also with her lower extremity and the left. She was seen by vascular surgery and a large clot was noted and a thrombectomy , endarterectomy and patch angioplasty was performed of the left arterial system, large clot was seen. Patient relates that her leg continues to feel okay. She is less short of breath. She did have bronchoscopy. Evidence of influenza B was found. Also evidence of MRSA as well as Stenotrophomonas maltophilia. She is now completed her course of Tamiflu. Is being treated with vancomycin and Bactrim for the isolate pathogens. She is feeling better. Appetite is still poor. Objective - Vital Signs Vital signs: Vital Signs Temp 99.2 F 06/12/16 15:00 Pulse 98 06/12/16 16:17 Resp 18 06/12/16 15:50 BP 131/79 06/12/16 15:00 Pulse Ox 92 L 06/12/16 15:00 Intake & Output 06/11/16 06/12/16 06/12/16 18:59 06:59 18:59 Intake Total 400 160 Balance 400 160 Weight 115.5 kg 117.5 kg Intake: IV 160 Lactated Ringers 1,000 ml 160 @ 20 mls/hr IV .Q24H [facility] Rx#:[id number] Oral 400 Other: Voiding Method Bedpan Bedpan # Voids 0 2 3 # Bowel Movements 0 0 - Exam 76-year-old woman who relates she is feeling less short of breath but appears to still be short of breath HEENT: Anicteric conjunctiva are pink and moist nasal mucosa grossly intact without significant lesions, there is no thrush. Worn dentition Neck: The neck is supple without significant lymphadenopathy or thyromegaly. Lungs: Symmetrical air entry is noted. Wheezes throughout the lung olivares are noted. Bibasilar crackles are heard right greater than left no dullness is noted minimal egophony to the right base is noted Heart: Regular rate and rhythm with an audible S1-S2, no S3 no S4. There is no significant murmur click or rub, PMI was nondisplaced. Abdomen: Obese, Positive bowel sounds soft and nontender without palpable masses or organomegaly. There was no guarding or rebound. Extremities: The upper and lower extremity is have some generalized edema. However no open ulcerations are seen. The entry site for the thrombectomy is without bleeding drainage or tenderness Neuro: Awake alert oriented to person place and time. There are no acute new gross focal sensory motor deficits. She has significant generalized weakness though - Labs CBC & Chem 7: 06/12/16 12:00 06/12/16 12:00 Labs: Abnormal Lab Results - Last 24 Hours (Table) 06/11/16 06/12/16 06/12/16 Range/Units 21:08 06:54 11:54 WBC (3.8-10.6) k/uL RBC (3.80-5.40) m/uL Hgb (11.4-16.0) gm/dL Hct (34.0-46.0) % MCHC (31.0-37.0) g/dL RDW (11.5-15.5) % Neutrophils # (1.3-7.7) k/uL Lymphocytes # (1.0-4.8) k/uL PT (9.0-12.0) sec Potassium (3.5-5.1) mmol/L Carbon Dioxide (22-30) mmol/L BUN (7-17) mg/dL Glucose (74-99) mg/dL POC Glucose (mg/dL) 143 H 107 H 156 H (75-99) mg/dL Total Protein (6.3-8.2) g/dL Albumin (3.5-5.0) g/dL Lipase (23-300) U/L 06/12/16 06/12/16 06/12/16 Range/Units 12:00 12:00 12:00 WBC 13.6 H (3.8-10.6) k/uL RBC 3.59 L (3.80-5.40) m/uL Hgb 9.9 L (11.4-16.0) gm/dL Hct 32.9 L (34.0-46.0) % MCHC 30.0 L (31.0-37.0) g/dL RDW 22.2 H (11.5-15.5) % Neutrophils # 12.1 H (1.3-7.7) k/uL Lymphocytes # 0.4 L (1.0-4.8) k/uL PT 21.3 H (9.0-12.0) sec Potassium 5.7 H (3.5-5.1) mmol/L Carbon Dioxide 32 H (22-30) mmol/L BUN 50 H (7-17) mg/dL Glucose 141 H (74-99) mg/dL POC Glucose (mg/dL) (75-99) mg/dL Total Protein 6.0 L (6.3-8.2) g/dL Albumin 2.8 L (3.5-5.0) g/dL Lipase (23-300) U/L 06/12/16 06/12/16 Range/Units 12:00 16:54 WBC (3.8-10.6) k/uL RBC (3.80-5.40) m/uL Hgb (11.4-16.0) gm/dL Hct (34.0-46.0) % MCHC (31.0-37.0) g/dL RDW (11.5-15.5) % Neutrophils # (1.3-7.7) k/uL Lymphocytes # (1.0-4.8) k/uL PT (9.0-12.0) sec Potassium (3.5-5.1) mmol/L Carbon Dioxide (22-30) mmol/L BUN (7-17) mg/dL Glucose (74-99) mg/dL POC Glucose (mg/dL) 173 H (75-99) mg/dL Total Protein (6.3-8.2) g/dL Albumin (3.5-5.0) g/dL Lipase 15 L (23-300) U/L Laboratory Results WBC 13.6 k/uL (3.8-10.6) H 06/12/16 12:00 RBC 3.59 m/uL (3.80-5.40) L 06/12/16 12:00 Hgb 9.9 gm/dL (11.4-16.0) L 06/12/16 12:00 Hct 32.9 % (34.0-46.0) L 06/12/16 12:00 MCV 91.6 fL (80.0-100.0) 06/12/16 12:00 MCH 27.5 pg (25.0-35.0) 06/12/16 12:00 MCHC 30.0 g/dL (31.0-37.0) L 06/12/16 12:00 RDW 22.2 % (11.5-15.5) H 06/12/16 12:00 Plt Count 231 k/uL (150-450) 06/12/16 12:00 Neutrophils % 89 % 06/12/16 12:00 Neutrophils % (Manual) 78.5 % 05/31/16 06:08 Lymphocytes % 3 % 06/12/16 12:00 Lymphocytes % (Manual) 13.5 % 05/31/16 06:08 Monocytes % 6 % 06/12/16 12:00 Monocytes % (Manual) 4.5 % 05/31/16 06:08 Eosinophils % 0 % 06/12/16 12:00 Eosinophils % (Manual) 0.5 % 05/31/16 06:08 Basophils % 0 % 06/12/16 12:00 Metamyelocytes % 2.0 % 05/31/16 06:08 Myelocytes % 1.0 % 05/31/16 06:08 Neutrophils # 12.1 k/uL (1.3-7.7) H 06/12/16 12:00 Neutrophils # (Manual) 8.8 k/uL (1.3-7.7) H 05/31/16 06:08 Lymphocytes # 0.4 k/uL (1.0-4.8) L 06/12/16 12:00 Lymphocytes # (Manual) 1.5 k/uL (1.0-4.8) 05/31/16 06:08 Monocytes # 0.8 k/uL (0-1.0) 06/12/16 12:00 Monocytes # (Manual) 0.5 k/uL (0-1.0) 05/31/16 06:08 Eosinophils # 0.0 k/uL (0-0.7) 06/12/16 12:00 Eosinophils # (Manual) 0.1 k/uL (0-0.7) 05/31/16 06:08 Basophils # 0.0 k/uL (0-0.2) 06/12/16 12:00 Nucleated RBCs 0 /100 WBC (0-0) 05/31/16 06:08 Manual Slide Review Performed 05/31/16 06:08 Hypochromasia Marked 06/12/16 12:00 Poikilocytosis Slight 06/12/16 12:00 Anisocytosis Moderate 06/12/16 12:00 Macrocytosis Slight 06/12/16 12:00 PT 21.3 sec (9.0-12.0) H 06/12/16 12:00 INR 2.2 (<1.1) 06/12/16 12:00 APTT 27.1 sec (22.0-30.0) 05/19/16 10:05 Sodium 138 mmol/L (137-145) 06/12/16 12:00 Potassium 5.7 mmol/L (3.5-5.1) H 06/12/16 12:00 Chloride 101 mmol/L (98-107) 06/12/16 12:00 Carbon Dioxide 32 mmol/L (22-30) H 06/12/16 12:00 Anion Gap 5 mmol/L 06/12/16 12:00 BUN 50 mg/dL (7-17) H 06/12/16 12:00 Creatinine 0.96 mg/dL (0.52-1.04) 06/12/16 12:00 Est GFR (MDRD) Af Amer >60 (>60 ml/min/1.73 sqM) 06/12/16 12:00 Est GFR (MDRD) Non-Af 56 (>60 ml/min/1.73 sqM) 06/12/16 12:00 Glucose 141 mg/dL (74-99) H 06/12/16 12:00 POC Glucose (mg/dL) 173 mg/dL (75-99) H 06/12/16 16:54 POC Glu Mixer Blender ID Shannan High 06/12/16 16:[address] Glu mg/dL 166 mg/dL 05/23/16 07:03 Hemoglobin A1c 7.4 % (4.2-6.1) H 05/23/16 07:03 Plasma Lactic Acid Good 1.4 mmol/L (0.7-2.0) 05/19/16 13:51 Calcium 9.0 mg/dL (8.4-10.2) 06/12/16 12:00 Phosphorus 4.0 mg/dL (2.5-4.5) 06/02/16 13:22 Magnesium 1.7 mg/dL (1.6-2.3) 06/02/16 13:22 Iron 29 ug/dL (37-170) L 06/03/16 05:50 TIBC 238 ug/dL (265-497) L 06/03/16 05:50 % Saturation 12.2 % (20-50) L 06/03/16 05:50 Ferritin 90 ng/mL (11-264) 06/03/16 05:50 Total Bilirubin 0.5 mg/dL (0.2-1.3) 06/12/16 12:00 AST 16 U/L (14-36) 06/12/16 12:00 ALT 30 U/L (9-52) 06/12/16 12:00 Alkaline Phosphatase 53 U/L (38-126) 06/12/16 12:00 Total Creatine Kinase <20 U/L (30-135) L 05/19/16 10:05 CK-MB (CK-2) <0.2 ng/mL (0.0-2.4) 05/19/16 10:05 CK-MB (CK-2) Rel Index 05/19/16 10:05 Troponin I 0.071 ng/mL (0.000-0.034) H* 05/19/16 10:05 NT-Pro-B Natriuret Pep 3920 pg/mL 05/20/16 09:00 Total Protein 6.0 g/dL (6.3-8.2) L 06/12/16 12:00 Albumin 2.8 g/dL (3.5-5.0) L 06/12/16 12:00 Amylase 40 U/L (30-110) 06/12/16 12:00 Lipase 15 U/L (23-300) L 06/12/16 12:00 TSH 2.550 mIU/L (0.465-4.680) 05/21/16 06:30 Free T4 0.76 ng/dL (0.78-2.19) L 05/21/16 06:30 Urine Color Light Yellow 05/19/16 10:25 Urine Appearance Clear (Clear) 05/19/16 10:25 Urine pH 6.5 (5.0-8.0) 05/19/16 10:25 Ur Specific [place] 1.011 (1.001-1.035) 05/19/16 10:25 Urine Protein Trace (Negative) H 05/19/16 10:25 Urine Glucose (UA) Negative (Negative) 05/19/16 10:25 Urine Ketones Negative (Negative) 05/19/16 10:25 Urine Blood Negative (Negative) 05/19/16 10:25 Urine Nitrite Negative (Negative) 05/19/16 10:25 Urine Bilirubin Negative (Negative) 05/19/16 10:25 Urine Urobilinogen <2.0 mg/dL (<2.0) 05/19/16 10:25 Ur Leukocyte Esterase Negative (Negative) 05/19/16 10:25 Vancomycin Trough 16.4 ug/mL 06/11/16 15:15 Random Vancomycin 19.6 ug/mL 06/05/16 08:11 Influenza Type A RNA Not Detected (Not Detectd) 05/19/16 10:05 Influenza Type B (PCR) Not Detected (Not Detectd) 05/19/16 10:05 Virus Source See Below 06/02/16 14:30 Viral Test See Below H 06/02/16 14:30 Virus Analysis Interp See Below 06/02/16 14:30 Miscellaneous Test Legionella, PCR 06/02/16 15:30 Misc Test Result See comment 06/02/16 15:30 Blood Type A Positive 05/23/16 09:33 Blood Type Recheck No 05/23/16 09:33 Antibody Screen NEGATIVE 05/23/16 09:33 Crossmatch See Detail 05/23/16 09:33 Spec Expiration Date 05/26/2016 - 233205/23/16 09:33 Microbiology 06/02/16 14:30 Bronchial Washings - Right Fungal Culture - Preliminary Gabriela albicans 06/02/16 14:30 Bronchial Washings - Right Gram Stain - Final 06/02/16 14:30 Bronchial Washings - Right Bronchial Washings Culture - Final Methicillin resist S. aureus Stenotrophomonas maltophilia 06/02/16 14:30 Bronchial Washings - Right Acid Fast Bacilli Smear - Final 06/02/16 14:30 Bronchial Washings - Right Acid Fast Bacilli Culture - Preliminary 05/30/16 00:30 Groin Anaerobic Culture - Final 05/30/16 00:30 Groin Gram Stain - Final 05/30/16 00:30 Groin Wound Culture - Final Methicillin resist S. aureus 05/30/16 01:40 Sputum Gram Stain - Final 05/30/16 01:40 Sputum Sputum Culture - Final Methicillin resist S. aureus 05/21/16 12:55 Blood Blood Culture - Final No Growth after 144 hours 05/19/16 10:05 Blood Blood Culture - Final No Growth after 144 hours Assessment and Plan (1) MRSA pneumonia Narrative/Plan: 76-year-old female who has multiple medical troubles occluding underlying significant cardiovascular disease, chronic pulmonary disease with oxygen dependence as well as sleep apnea presents to Hospital profoundly ill from the extended care facility. Apparently hospitalized for she had difficulties with gastrointestinal bleeding. During this stay she's had difficulties with congestive heart failure, exacerbation of COPD, extensive thrombus to the left leg requiring thrombectomy and endarterectomy. Patient relates is feeling just slightly better today. Review of the previous culture reveals evidence she does have evidence of the sputum culture with evidence of MRSA present. It does appear to be levofloxacin resistant. She was initiated vancomycin therapy. Is now having improvement within the last day. Vancomycin therapy will continue. Likely would treat her for the next 14 days. We'll request her vascular surgeon for IV access, or PICC line if he agrees. We'll monitor response to current antibiotic therapy. We'll likely need to complete a course of this time of her transfer back to [facility]. A bronchoscopy was performed and is allowed her to have an improvement by pulmonary toileting. As noted influenza B was found she's now completed her 5 day course of Tamiflu. We will plan on continuing isolation through at least Tuesday hopefully she'll be transferred at that time. As far as the MRSA and stenotrophomonas maltophilia. Continue vancomycin and Bactrim at this time. Plan 14 days. Monitor her INR closely Her creatinine is stable at this time. Status: Acute (2) Chronic a-fib Status: Acute (3) Acute blood loss anemia Status: Acute (4) Leukocytosis Status: Acute
[2016-06-12 21:00] LABS: Glucose,Whole Blood 161 mg/dL (75-99)
[2016-06-12] MEDS: PRAVASTATIN SODIUM 20 MG TAB PO SCH (22:18)
[2016-06-12] MEDS: POLYETHYLENE GLYCOL 3350 17 GM POWD.PACK PO SCH (22:19)
[2016-06-12] MEDS: MONTELUKAST 10 MG TAB PO SCH (22:19)
[2016-06-12] MEDS: LOSARTAN 50 MG TAB PO SCH (22:19)
[2016-06-13 07:28] LABS: Glucose,Whole Blood 69 mg/dL (75-99)
[2016-06-13 07:54] LABS: Glucose,Whole Blood 84 mg/dL (75-99)
[2016-06-13] MEDS: HYDROcodone/APAP 10-325MG 1 EACH TAB PO PRN ×4 (08:01→21:41)
[2016-06-13] MEDS: SULFAMETHOX-TMP 400-80MG 1 EACH TAB PO SCH ×2 (08:02→21:45)
[2016-06-13] MEDS: predniSONE 10 MG TAB PO SCH (08:02)
[2016-06-13] MEDS: ALPRAZolam 0.25 MG TAB PO SCH ×2 (08:02→21:41)
[2016-06-13] MEDS: METOPROLOL SUCCINATE (ER) 100 MG TAB.ER.24H PO SCH ×2 (08:02→21:45)
[2016-06-13] MEDS: FUROSEMIDE 40 MG TAB PO SCH ×2 (08:02→16:37)
[2016-06-13] MEDS: guaiFENesin 600 MG TABLET.ER PO SCH ×2 (08:03→21:44)
[2016-06-13] MEDS: DIGOXIN 125 MCG TAB PO SCH (08:03)
[2016-06-13] MEDS: DOCUSATE 100 MG CAP PO SCH ×2 (08:03→21:46)
[2016-06-13] MEDS: PANTOPRAZOLE 40 MG TABLET PO SCH (08:03)
[2016-06-13] MEDS: INSULIN DETEMIR 100 UNIT/ML 10 ML VIAL SQ SCH ×2 (08:03→21:43)
[2016-06-13] MEDS: FERROUS SULFATE 325 MG TAB PO SCH ×2 (08:03→21:46)
[2016-06-13] MEDS: INSULIN LISPRO (humaLOG) 300 UNIT/3 ML VIAL SQ SCH ×4 (08:04→21:48)
[2016-06-13] MEDS: IPRATROPIUM-ALBUTEROL 3 ML NEB INHALATION SCH ×4 (08:53→20:17)
[2016-06-13] MEDS: BUDESONIDE 1 MG/2 ML NEBU INHALATION SCH ×2 (08:53→20:17)
[2016-06-13 11:31] LABS: Anisocytosis Moderate; Basophils % (A) 0 %; CH 27.2; CHCM 29.1; Eosinophils % (A) 0 %; HCT 31.1 % (34.0-46.0); HDW 3.42; HGB 9.2 gm/dL (11.4-16.0); Hypochromasia Marked; Luc # (Auto) 0.19; Luc % (Auto) 2; Lymphocytes # (A) 0.6 k/uL (1.0-4.8); Lymphocytes % (A) 5 %; MCH 27.7 pg (25.0-35.0); MCHC 29.6 g/dL (31.0-37.0); MCV 93.4 fL (80.0-100.0); Macrocytosis Slight; Mean Platelet Volume 7.7; Monocytes # (A) 0.8 k/uL (0-1.0); Monocytes % (A) 7 %; Neutrophils # (A) 9.6 k/uL (1.3-7.7); Neutrophils % (A) 86 %; Poikilocytosis Slight; RBC 3.33 m/uL (3.80-5.40); RDW 22.6 % (11.5-15.5); WBC 11.2 k/uL (3.8-10.6); WBC (Perox) 11.44
[2016-06-13 11:47] LABS: INR 2.6 (<1.1); Prothrombin Time 25.4 sec (9.0-12.0)
[2016-06-13 11:48] LABS: ALT 28 U/L (9-52); AST 15 U/L (14-36); Alkaline Phosphatase 50 U/L (38-126); Anion Gap 6 mmol/L; Blood Urea Nitrogen 47 mg/dL (7-17); Calcium 8.6 mg/dL (8.4-10.2); Carbon Dioxide 30 mmol/L (22-30); Chloride 102 mmol/L (98-107); Glucose 186 mg/dL (74-99); Non-African American GFR(MDRD) 58 (>60 ml/min/1.73 sqM); Potassium 5.3 mmol/L (3.5-5.1); Sodium 138 mmol/L (137-145); Total Bilirubin 0.3 mg/dL (0.2-1.3); Total Protein 5.4 g/dL (6.3-8.2)
[2016-06-13 11:52] LABS: Glucose,Whole Blood 249 mg/dL (75-99)
[2016-06-13] MEDS: LACTATED RINGERS 1,000 ML IV SCH (12:30)
--- NOTE | 2016-06-13 12:58 | P.PN ---
Subjective Principal diagnosis: Pneumonia with sepsis Patient is a 76-year-old female who was readmitted to [facility] due to fever cough and worsening shortness of breath She had evidence of pneumonia with sepsis, she also had evidence of anemia was hemoglobin of 7.8, evidence of acute congestive heart failure exacerbation, she has known history of atrial fibrillation. Today patient is complaining of abdominal pain, and constipation, she is feeling weak and she states she is not ready to be discharged at this time. patient is still complaining of abdominal pain and constipation Objective - Vital Signs Vital signs: Vital Signs Temp 96.3 F L 06/13/16 07:00 Pulse 98 06/13/16 09:09 Resp 18 06/13/16 07:00 BP 152/68 06/13/16 07:00 Pulse Ox 93 L 06/13/16 07:00 Intake & Output 06/12/16 06/13/16 06/13/16 18:59 06:59 18:59 Intake Total 160 300 Output Total 700 Balance 160 -400 Weight 112 kg Intake: IV 160 Lactated Ringers 1,000 ml 160 @ 20 mls/hr IV .Q24H [facility] Rx#:[id number] Oral 300 Output: Urine 700 Other: Voiding Method Bedpan Bedpan # Voids 1 4 1 # Bowel Movements 0 1 - Exam In general patient is alert and oriented 3 in no apparent distress HEENT head normocephalic and atraumatic Neck is supple no JVD no goiter no lymphadenopathy Chest exam reveals coarse crackles in both lung olivares no wheezing Cardiac exam reveals regular heart sounds no murmurs Abdomen is soft with mild diffuse tenderness no organomegaly Extremity exam reveals no edema no cyanosis or clubbing - Labs CBC & Chem 7: 06/13/16 11:20 06/13/16 11:20 Labs: Abnormal Lab Results - Last 24 Hours (Table) 06/12/16 06/12/16 06/13/16 Range/Units 16:54 20:46 07:27 WBC (3.8-10.6) k/uL RBC (3.80-5.40) m/uL Hgb (11.4-16.0) gm/dL Hct (34.0-46.0) % MCHC (31.0-37.0) g/dL RDW (11.5-15.5) % Neutrophils # (1.3-7.7) k/uL Lymphocytes # (1.0-4.8) k/uL PT (9.0-12.0) sec Potassium (3.5-5.1) mmol/L BUN (7-17) mg/dL Glucose (74-99) mg/dL POC Glucose (mg/dL) 173 H 161 H 69 L (75-99) mg/dL Total Protein (6.3-8.2) g/dL Albumin (3.5-5.0) g/dL 06/13/16 06/13/16 06/13/16 Range/Units 11:20 11:20 11:20 WBC 11.2 H (3.8-10.6) k/uL RBC 3.33 L (3.80-5.40) m/uL Hgb 9.2 L (11.4-16.0) gm/dL Hct 31.1 L (34.0-46.0) % MCHC 29.6 L (31.0-37.0) g/dL RDW 22.6 H (11.5-15.5) % Neutrophils # 9.6 H (1.3-7.7) k/uL Lymphocytes # 0.6 L (1.0-4.8) k/uL PT 25.4 H (9.0-12.0) sec Potassium 5.3 H (3.5-5.1) mmol/L BUN 47 H (7-17) mg/dL Glucose 186 H (74-99) mg/dL POC Glucose (mg/dL) (75-99) mg/dL Total Protein 5.4 L (6.3-8.2) g/dL Albumin 2.5 L (3.5-5.0) g/dL 06/13/16 Range/Units 11:50 WBC (3.8-10.6) k/uL RBC (3.80-5.40) m/uL Hgb (11.4-16.0) gm/dL Hct (34.0-46.0) % MCHC (31.0-37.0) g/dL RDW (11.5-15.5) % Neutrophils # (1.3-7.7) k/uL Lymphocytes # (1.0-4.8) k/uL PT (9.0-12.0) sec Potassium (3.5-5.1) mmol/L BUN (7-17) mg/dL Glucose (74-99) mg/dL POC Glucose (mg/dL) 249 H (75-99) mg/dL Total Protein (6.3-8.2) g/dL Albumin (3.5-5.0) g/dL Assessment and Plan Plan: 1. Pneumonia with MRSA: on to IV vancomycin patient improving, pulmonary and infectious disease following Patient is having difficulty bringing up sputum 2. Acute on chronic systolic CHF exacerbation. Most recent echo shows an EF of 40-45%. BNP elevated in the 3000's. Chest x-ray showing peripheral vascular congestion. Patient received multiple extra doses of IV Lasix due to worsening shortness of breath and O2 desaturations this morning 3. Cardiac pauses. Continue with telemetry monitoring. Cardiology has been consulted. 4. Insulin-dependent diabetes mellitus, A1c is 7.2 continue was Levemir and NovoLog continue was current insulin treatment 5. Elevated troponin with no chest pain. Cardiology following no intervention recommended at this time 6. Acute anemia secondary to chronic blood loss and suspected lower GI bleed. 7. Chronic atrial fibrillation maintained on Coumadin for anticoagulation. Monitor PT/INRs closely due to Coumadin and Levaquin interaction. 8. History of COPD: Continue with nebulizer treatments. 9. Continue with current Coumadin treatment 10. Abdominal pain, computed tomography scan of the abdomen and pelvis was done and revealed evidence of left flank hematoma Case was discussed was multiple specialist on the case, recommendation were to continue with Coumadin due to recent arterial blood clot on the left lower extremity requiring surgery. Continue monitoring hemoglobin and continue to keep INR in the lower therapeutic area will follow closely. Case was discussed in details with patient and family. 11. Poor nutritional status, on protein supplements
--- NOTE | 2016-06-13 14:41 | P.PN ---
Subjective Principal diagnosis: Shortness of breath 76-year-old female who has an extensive hospitalization currently at 7 days of admission but actually it's been longer than that due to her short hiatus out of the hospital. She was deemed medically stable to be to leave the hospital to attend her 's this occurred while she has been so ill. The patient was admitted with severe shortness of breath from the extended care facility she was being cared for after her gastrointestinal bleeding and worsening of her underlying pulmonary disease. The patient does have severe underlying pulmonary disease and wears oxygen at all times and does use a CPAP at night because of her sleep apnea. Recently this has definitely been worse and because of concerns to ongoing pneumonia the infectious diseases consultation was requested This patient relates she just feeling slightly better than when she was first admitted. She was having difficulties that time also with her lower extremity and the left. She was seen by vascular surgery and a large clot was noted and a thrombectomy , endarterectomy and patch angioplasty was performed of the left arterial system, large clot was seen. Patient relates that her leg continues to feel okay. She is less short of breath. She did have bronchoscopy. Evidence of influenza B was found. Also evidence of MRSA as well as Stenotrophomonas maltophilia. She is now completed her course of Tamiflu. Is being treated with vancomycin and Bactrim for the isolate pathogens. She is feeling better. Appetite is still poor but is using some of her lunch today. She is encouraged to eat as much of the protein as she can Objective - Vital Signs Vital signs: Vital Signs Temp 96.3 F L 06/13/16 07:00 Pulse 102 H 06/13/16 14:08 Resp 18 06/13/16 07:00 BP 152/68 06/13/16 07:00 Pulse Ox 93 L 06/13/16 07:00 Intake & Output 06/12/16 06/13/16 06/13/16 18:59 06:59 18:59 Intake Total 160 300 Output Total 700 Balance 160 -400 Weight 112 kg Intake: IV 160 Lactated Ringers 1,000 ml 160 @ 20 mls/hr IV .Q24H [facility] Rx#:[id number] Oral 300 Output: Urine 700 Other: Voiding Method Bedpan Bedpan # Voids 1 4 1 # Bowel Movements 0 1 - Exam 76-year-old woman who relates she is feeling less short of breath but appears to still be short of breath HEENT: Anicteric conjunctiva are pink and moist nasal mucosa grossly intact without significant lesions, there is no thrush. Worn dentition Neck: The neck is supple without significant lymphadenopathy or thyromegaly. Lungs: Symmetrical air entry is noted. Wheezes throughout the lung olivares are noted. Bibasilar crackles are heard right greater than left no dullness is noted minimal egophony to the right base is noted Heart: Regular rate and rhythm with an audible S1-S2, no S3 no S4. There is no significant murmur click or rub, PMI was nondisplaced. Abdomen: Obese, Positive bowel sounds soft and nontender without palpable masses or organomegaly. There was no guarding or rebound. Extremities: The upper and lower extremity is have some generalized edema. However no open ulcerations are seen. The entry site for the thrombectomy is without bleeding drainage or tenderness Neuro: Awake alert oriented to person place and time. There are no acute new gross focal sensory motor deficits. She has significant generalized weakness though - Labs CBC & Chem 7: 06/13/16 11:20 06/13/16 11:20 Labs: Abnormal Lab Results - Last 24 Hours (Table) 06/12/16 06/12/16 06/13/16 Range/Units 16:54 20:46 07:27 WBC (3.8-10.6) k/uL RBC (3.80-5.40) m/uL Hgb (11.4-16.0) gm/dL Hct (34.0-46.0) % MCHC (31.0-37.0) g/dL RDW (11.5-15.5) % Neutrophils # (1.3-7.7) k/uL Lymphocytes # (1.0-4.8) k/uL PT (9.0-12.0) sec Potassium (3.5-5.1) mmol/L BUN (7-17) mg/dL Glucose (74-99) mg/dL POC Glucose (mg/dL) 173 H 161 H 69 L (75-99) mg/dL Total Protein (6.3-8.2) g/dL Albumin (3.5-5.0) g/dL 06/13/16 06/13/16 06/13/16 Range/Units 11:20 11:20 11:20 WBC 11.2 H (3.8-10.6) k/uL RBC 3.33 L (3.80-5.40) m/uL Hgb 9.2 L (11.4-16.0) gm/dL Hct 31.1 L (34.0-46.0) % MCHC 29.6 L (31.0-37.0) g/dL RDW 22.6 H (11.5-15.5) % Neutrophils # 9.6 H (1.3-7.7) k/uL Lymphocytes # 0.6 L (1.0-4.8) k/uL PT 25.4 H (9.0-12.0) sec Potassium 5.3 H (3.5-5.1) mmol/L BUN 47 H (7-17) mg/dL Glucose 186 H (74-99) mg/dL POC Glucose (mg/dL) (75-99) mg/dL Total Protein 5.4 L (6.3-8.2) g/dL Albumin 2.5 L (3.5-5.0) g/dL 06/13/16 Range/Units 11:50 WBC (3.8-10.6) k/uL RBC (3.80-5.40) m/uL Hgb (11.4-16.0) gm/dL Hct (34.0-46.0) % MCHC (31.0-37.0) g/dL RDW (11.5-15.5) % Neutrophils # (1.3-7.7) k/uL Lymphocytes # (1.0-4.8) k/uL PT (9.0-12.0) sec Potassium (3.5-5.1) mmol/L BUN (7-17) mg/dL Glucose (74-99) mg/dL POC Glucose (mg/dL) 249 H (75-99) mg/dL Total Protein (6.3-8.2) g/dL Albumin (3.5-5.0) g/dL Laboratory Results WBC 11.2 k/uL (3.8-10.6) H 06/13/16 11:20 RBC 3.33 m/uL (3.80-5.40) L 06/13/16 11:20 Hgb 9.2 gm/dL (11.4-16.0) L 06/13/16 11:20 Hct 31.1 % (34.0-46.0) L 06/13/16 11:20 MCV 93.4 fL (80.0-100.0) 06/13/16 11:20 MCH 27.7 pg (25.0-35.0) 06/13/16 11:20 MCHC 29.6 g/dL (31.0-37.0) L 06/13/16 11:20 RDW 22.6 % (11.5-15.5) H 06/13/16 11:20 Plt Count 202 k/uL (150-450) 06/13/16 11:20 Neutrophils % 86 % 06/13/16 11:20 Neutrophils % (Manual) 78.5 % 05/31/16 06:08 Lymphocytes % 5 % 06/13/16 11:20 Lymphocytes % (Manual) 13.5 % 05/31/16 06:08 Monocytes % 7 % 06/13/16 11:20 Monocytes % (Manual) 4.5 % 05/31/16 06:08 Eosinophils % 0 % 06/13/16 11:20 Eosinophils % (Manual) 0.5 % 05/31/16 06:08 Basophils % 0 % 06/13/16 11:20 Metamyelocytes % 2.0 % 05/31/16 06:08 Myelocytes % 1.0 % 05/31/16 06:08 Neutrophils # 9.6 k/uL (1.3-7.7) H 06/13/16 11:20 Neutrophils # (Manual) 8.8 k/uL (1.3-7.7) H 05/31/16 06:08 Lymphocytes # 0.6 k/uL (1.0-4.8) L 06/13/16 11:20 Lymphocytes # (Manual) 1.5 k/uL (1.0-4.8) 05/31/16 06:08 Monocytes # 0.8 k/uL (0-1.0) 06/13/16 11:20 Monocytes # (Manual) 0.5 k/uL (0-1.0) 05/31/16 06:08 Eosinophils # 0.0 k/uL (0-0.7) 06/13/16 11:20 Eosinophils # (Manual) 0.1 k/uL (0-0.7) 05/31/16 06:08 Basophils # 0.0 k/uL (0-0.2) 06/13/16 11:20 Nucleated RBCs 0 /100 WBC (0-0) 05/31/16 06:08 Manual Slide Review Performed 05/31/16 06:08 Hypochromasia Marked 06/13/16 11:20 Poikilocytosis Slight 06/13/16 11:20 Anisocytosis Moderate 06/13/16 11:20 Macrocytosis Slight 06/13/16 11:20 PT 25.4 sec (9.0-12.0) H 06/13/16 11:20 INR 2.6 (<1.1) 06/13/16 11:20 APTT 27.1 sec (22.0-30.0) 05/19/16 10:05 Sodium 138 mmol/L (137-145) 06/13/16 11:20 Potassium 5.3 mmol/L (3.5-5.1) H 06/13/16 11:20 Chloride 102 mmol/L (98-107) 06/13/16 11:20 Carbon Dioxide 30 mmol/L (22-30) 06/13/16 11:20 Anion Gap 6 mmol/L 06/13/16 11:20 BUN 47 mg/dL (7-17) H 06/13/16 11:20 Creatinine 0.94 mg/dL (0.52-1.04) 06/13/16 11:20 Est GFR (MDRD) Af Amer >60 (>60 ml/min/1.73 sqM) 06/13/16 11:20 Est GFR (MDRD) Non-Af 58 (>60 ml/min/1.73 sqM) 06/13/16 11:20 Glucose 186 mg/dL (74-99) H 06/13/16 11:20 POC Glucose (mg/dL) 249 mg/dL (75-99) H 06/13/16 11:50 POC Glu Seafood Team Member ID Shannan High 06/13/16 11:[address] Glu mg/dL 166 mg/dL 05/23/16 07:03 Hemoglobin A1c 7.4 % (4.2-6.1) H 05/23/16 07:03 Plasma Lactic Acid Good 1.4 mmol/L (0.7-2.0) 05/19/16 13:51 Calcium 8.6 mg/dL (8.4-10.2) 06/13/16 11:20 Phosphorus 4.0 mg/dL (2.5-4.5) 06/02/16 13:22 Magnesium 1.7 mg/dL (1.6-2.3) 06/02/16 13:22 Iron 29 ug/dL (37-170) L 06/03/16 05:50 TIBC 238 ug/dL (265-497) L 06/03/16 05:50 % Saturation 12.2 % (20-50) L 06/03/16 05:50 Ferritin 90 ng/mL (11-264) 06/03/16 05:50 Total Bilirubin 0.3 mg/dL (0.2-1.3) 06/13/16 11:20 AST 15 U/L (14-36) 06/13/16 11:20 ALT 28 U/L (9-52) 06/13/16 11:20 Alkaline Phosphatase 50 U/L (38-126) 06/13/16 11:20 Total Creatine Kinase <20 U/L (30-135) L 05/19/16 10:05 CK-MB (CK-2) <0.2 ng/mL (0.0-2.4) 05/19/16 10:05 CK-MB (CK-2) Rel Index 05/19/16 10:05 Troponin I 0.071 ng/mL (0.000-0.034) H* 05/19/16 10:05 NT-Pro-B Natriuret Pep 3920 pg/mL 05/20/16 09:00 Total Protein 5.4 g/dL (6.3-8.2) L 06/13/16 11:20 Albumin 2.5 g/dL (3.5-5.0) L 06/13/16 11:20 Amylase 40 U/L (30-110) 06/12/16 12:00 Lipase 15 U/L (23-300) L 06/12/16 12:00 TSH 2.550 mIU/L (0.465-4.680) 05/21/16 06:30 Free T4 0.76 ng/dL (0.78-2.19) L 05/21/16 06:30 Urine Color Light Yellow 05/19/16 10:25 Urine Appearance Clear (Clear) 05/19/16 10:25 Urine pH 6.5 (5.0-8.0) 05/19/16 10:25 Ur Specific [place] 1.011 (1.001-1.035) 05/19/16 10:25 Urine Protein Trace (Negative) H 05/19/16 10:25 Urine Glucose (UA) Negative (Negative) 05/19/16 10:25 Urine Ketones Negative (Negative) 05/19/16 10:25 Urine Blood Negative (Negative) 05/19/16 10:25 Urine Nitrite Negative (Negative) 05/19/16 10:25 Urine Bilirubin Negative (Negative) 05/19/16 10:25 Urine Urobilinogen <2.0 mg/dL (<2.0) 05/19/16 10:25 Ur Leukocyte Esterase Negative (Negative) 05/19/16 10:25 Vancomycin Trough 16.4 ug/mL 06/11/16 15:15 Random Vancomycin 19.6 ug/mL 06/05/16 08:11 Influenza Type A RNA Not Detected (Not Detectd) 05/19/16 10:05 Influenza Type B (PCR) Not Detected (Not Detectd) 05/19/16 10:05 Virus Source See Below 06/02/16 14:30 Viral Test See Below H 06/02/16 14:30 Virus Analysis Interp See Below 06/02/16 14:30 Miscellaneous Test Legionella, PCR 06/02/16 15:30 Misc Test Result See comment 06/02/16 15:30 Blood Type A Positive 05/23/16 09:33 Blood Type Recheck No 05/23/16 09:33 Antibody Screen NEGATIVE 05/23/16 09:33 Crossmatch See Detail 05/23/16 09:33 Spec Expiration Date 05/26/2016233205/23/16 09:33 Microbiology 06/02/16 14:30 Bronchial Washings - Right Fungal Culture - Preliminary Gabriela albicans 06/02/16 14:30 Bronchial Washings - Right Gram Stain - Final 06/02/16 14:30 Bronchial Washings - Right Bronchial Washings Culture - Final Methicillin resist S. aureus Stenotrophomonas maltophilia 06/02/16 14:30 Bronchial Washings - Right Acid Fast Bacilli Smear - Final 06/02/16 14:30 Bronchial Washings - Right Acid Fast Bacilli Culture - Preliminary 05/30/16 00:30 Groin Anaerobic Culture - Final 05/30/16 00:30 Groin Gram Stain - Final 05/30/16 00:30 Groin Wound Culture - Final Methicillin resist S. aureus 05/30/16 01:40 Sputum Gram Stain - Final 05/30/16 01:40 Sputum Sputum Culture - Final Methicillin resist S. aureus 05/21/16 12:55 Blood Blood Culture - Final No Growth after 144 hours 05/19/16 10:05 Blood Blood Culture - Final No Growth after 144 hours Assessment and Plan (1) MRSA pneumonia Narrative/Plan: 76-year-old female who has multiple medical troubles occluding underlying significant cardiovascular disease, chronic pulmonary disease with oxygen dependence as well as sleep apnea presents to Hospital profoundly ill from the [facility] care facility. Apparently hospitalized for she had difficulties with gastrointestinal bleeding. During this stay she's had difficulties with congestive heart failure, exacerbation of COPD, extensive thrombus to the left leg requiring thrombectomy and endarterectomy. Patient relates is feeling just slightly better today. Review of the previous culture reveals evidence she does have evidence of the sputum culture with evidence of MRSA present. It does appear to be levofloxacin resistant. She was initiated vancomycin therapy. Is now having improvement within the last day. Vancomycin therapy will continue. Likely would treat her for the next 14 days. We'll request her vascular surgeon for IV access, or PICC line if he agrees. We'll monitor response to current antibiotic therapy. We'll likely need to complete a course of this time of [facility] A bronchoscopy was performed and is allowed her to have an improvement by pulmonary toileting. As noted influenza B was found she's now completed her 5 day course of Tamiflu. We will plan on continuing isolation through at least Tuesday hopefully she'll be transferred at that time. As far as the MRSA and stenotrophomonas maltophilia. Continue vancomycin and Bactrim at this time. Plan 14 days. Monitor her INR closely Her creatinine is stable at this time. The patient did have evidence of the hematoma the abdominal wall. She's had a bowel movement is feeling considerably better. She is not having significant discomfort related to the hematoma. Hemoglobin is stable at this time. Status: Acute (2) Chronic a-fib Status: Acute (3) Acute blood loss anemia Status: Acute (4) Leukocytosis Status: Acute
[2016-06-13] MEDS: VANCOMYCIN 1,000 MG in SODIUM CHLORIDE 0.9% 250 ML IVPB SCH (16:37)
--- NOTE | 2016-06-13 16:54 | PN ---
DATE OF SERVICE: 06/13/2016 Mr. Bui is seen, evaluated, examined. She is now on 3 liters oxygen. She is being treated for pneumonia on the right lower lobe. Her respiratory status is slightly stable. Her respiratory status relatively more stable now. Last set of vitals include blood pressure is 150/70, respiratory rate 18, pulse 76, temperature 98, sating 93% on 4 liters oxygen. HEENT: Unremarkable. NECK: Supple. LUNGS: Good air entry bilaterally. HEART: Regular rate and rhythm. ABDOMEN: Soft. NEUROLOGICAL EXAMINATION: Not much change. Otherwise, the glucose is 249, PT/INR 25.4 and 2.6. ID service is following. Patient did have a CT scan of the abdomen and pelvis performed yesterday and found to have left flank hematoma. The medications are reviewed and include: 1. Tylenol with Codeine. 2. DuoNeb. 3. Xanax. 4. Pulmicort. 5. Digoxin. 6. Colace. 7. Ferrous sulfate. 8. Levemir. 9. Sliding scale insulin. 10. Also on K-Mag-Phos replacement protocol. 11. Zofran. 12. Protonix. 13. Pravastatin. 14. Trimethoprim. 15. Vancomycin. 16. Coumadin, which we would recommend to hold that at this point of time. IMPRESSION: 1. Large hematoma left flank. Patient is well anticoagulated. 2. Left lower lobe pneumonia. 3. Chronic atrial fibrillation. 4. Methicillin-resistant Staphylococcus aureus pneumonia. 5. Cardiomyopathy acute on chronic systolic heart failure. 6. Arrhythmia 7. A new problem of large left flank hematoma and extensive skin bruising. PLAN AND RECOMMENDATIONS: As above. Continue antibiotics. Continue pulmonary toilet. Would hold Coumadin as dictated above. Will follow. Lower down the prednisone as well to 20 mg daily.
[2016-06-13 17:08] LABS: Glucose,Whole Blood 186 mg/dL (75-99)
[2016-06-13 20:56] LABS: Glucose,Whole Blood 217 mg/dL (75-99)
[2016-06-13] MEDS: MONTELUKAST 10 MG TAB PO SCH (21:44)
[2016-06-13] MEDS: LOSARTAN 50 MG TAB PO SCH (21:45)
[2016-06-13] MEDS: PRAVASTATIN SODIUM 20 MG TAB PO SCH (21:45)
[2016-06-13] MEDS: POLYETHYLENE GLYCOL 3350 17 GM POWD.PACK PO SCH (21:49)
[2016-06-14 07:15] LABS: Glucose,Whole Blood 104 mg/dL (75-99)
[2016-06-14] MEDS: INSULIN LISPRO (humaLOG) 300 UNIT/3 ML VIAL SQ SCH ×4 (07:36→21:56)
[2016-06-14] MEDS: HYDROcodone/APAP 10-325MG 1 EACH TAB PO PRN ×3 (07:58→20:57)
[2016-06-14] MEDS: ALPRAZolam 0.25 MG TAB PO SCH ×2 (07:58→20:57)
[2016-06-14] MEDS: guaiFENesin 600 MG TABLET.ER PO SCH ×2 (07:59→20:53)
[2016-06-14] MEDS: SULFAMETHOX-TMP 400-80MG 1 EACH TAB PO SCH ×2 (07:59→20:53)
[2016-06-14] MEDS: FUROSEMIDE 40 MG TAB PO SCH ×2 (07:59→16:40)
[2016-06-14] MEDS: DOCUSATE 100 MG CAP PO SCH ×2 (07:59→20:53)
[2016-06-14] MEDS: DIGOXIN 125 MCG TAB PO SCH (07:59)
[2016-06-14] MEDS: METOPROLOL SUCCINATE (ER) 100 MG TAB.ER.24H PO SCH ×2 (07:59→20:53)
[2016-06-14] MEDS: FERROUS SULFATE 325 MG TAB PO SCH ×2 (07:59→20:53)
[2016-06-14] MEDS: predniSONE 20 MG TAB PO SCH (08:00)
[2016-06-14] MEDS: PANTOPRAZOLE 40 MG TABLET PO SCH (08:00)
[2016-06-14] MEDS: IPRATROPIUM-ALBUTEROL 3 ML NEB INHALATION SCH ×4 (08:05→20:20)
[2016-06-14 08:29] LABS: Anisocytosis Moderate; Basophils % (A) 0 %; CH 27.1; CHCM 29.2; Eosinophils % (A) 0 %; HCT 29.1 % (34.0-46.0); HGB 8.7 gm/dL (11.4-16.0); Hypochromasia Marked; Luc # (Auto) 0.16; Luc % (Auto) 2; Lymphocytes # (A) 1.1 k/uL (1.0-4.8); Lymphocytes % (A) 12 %; MCH 27.6 pg (25.0-35.0); MCHC 29.8 g/dL (31.0-37.0); MCV 92.7 fL (80.0-100.0); Macrocytosis Slight; Mean Platelet Volume 6.9; Monocytes # (A) 0.7 k/uL (0-1.0); Monocytes % (A) 8 %; Neutrophils % (A) 78 %; RBC 3.14 m/uL (3.80-5.40); RDW 22.1 % (11.5-15.5); WBC (Perox) 8.99
[2016-06-14 08:31] LABS: INR 2.5 (<1.1); Prothrombin Time 24.4 sec (9.0-12.0)
[2016-06-14] MEDS: INSULIN DETEMIR 100 UNIT/ML 10 ML VIAL SQ SCH ×2 (08:36→21:56)
[2016-06-14 08:54] LABS: Calcium 8.2 mg/dL (8.4-10.2); Potassium 4.9 mmol/L (3.5-5.1); Total Bilirubin 0.3 mg/dL (0.2-1.3); Total Protein 5.3 g/dL (6.3-8.2)
[2016-06-14] MEDS: BUDESONIDE 1 MG/2 ML NEBU INHALATION SCH ×2 (11:20→20:21)
[2016-06-14] MEDS ORDERED: MINERAL OIL-WHITE PETROLATUM 120 GM JAR TOPICAL PRN (11:42)
--- NOTE | 2016-06-14 11:49 | P.PN ---
Subjective Patient being treated for pneumonia with sepsis and CHF exacerbation. Patient also has a left groin seroma. Both sputum culture and wound culture growing MRSA. Currently on IV vancomycin. Had bronchoscopy during this admission. Per report showing influenza B positive. Patient started on Tamiflu. Bronchial washings growing MRSA and stenotrophomonas maltophilia. Patient's abdominal pain has improved. She has been having bowel movements. Computed tomography scan of the weekend had shown a left flank hematoma. Continue to monitor closely. Patient denies any left flank pain. Denies any chest pain or shortness of breath. Denies any nausea or vomiting. Denies any difficulty urinating. Objective - Vital Signs Vital signs: Vital Signs Temp 97.5 F L 06/14/16 07:00 Pulse 80 06/14/16 11:38 Resp 18 06/14/16 08:00 BP 150/64 06/14/16 07:00 Pulse Ox 92 L 06/14/16 11:00 Intake & Output 06/13/16 06/14/16 06/14/16 18:59 06:59 18:59 Output Total 350 350 Balance -350 -350 Weight 113 kg 113 kg Output: Urine 350 350 Other: Voiding Method Bedpan Bedpan Bedpan # Voids 1 2 2 # Bowel Movements 1 0 - Exam Head normocephalic Neck supple Lungs coarse breath sounds with wheeze. Did show some improvement with cough Heart regular rate and rhythm S1-S2, no rub or gallop Abdomen is soft nontender nondistended positive bowel sounds no hepatosplenomegaly. No bruising or discoloration noted along the left flank Extremities no edema Neuro alert and orientated to 3 Skin: Dry skin with excoriation noted along the left side. - Labs CBC & Chem 7: 06/14/16 08:12 06/14/16 08:12 Labs: Abnormal Lab Results - Last 24 Hours (Table) 06/13/16 06/13/16 06/13/16 Range/Units 11:20 11:20 11:50 RBC (3.80-5.40) m/uL Hgb (11.4-16.0) gm/dL Hct (34.0-46.0) % MCHC (31.0-37.0) g/dL RDW (11.5-15.5) % PT 25.4 H (9.0-12.0) sec Potassium 5.3 H (3.5-5.1) mmol/L Carbon Dioxide (22-30) mmol/L BUN 47 H (7-17) mg/dL Creatinine (0.52-1.04) mg/dL Glucose 186 H (74-99) mg/dL POC Glucose (mg/dL) 249 H (75-99) mg/dL Calcium (8.4-10.2) mg/dL AST (14-36) U/L Total Protein 5.4 L (6.3-8.2) g/dL Albumin 2.5 L (3.5-5.0) g/dL 06/13/16 06/13/16 06/14/16 Range/Units 17:03 20:53 07:13 RBC (3.80-5.40) m/uL Hgb (11.4-16.0) gm/dL Hct (34.0-46.0) % MCHC (31.0-37.0) g/dL RDW (11.5-15.5) % PT (9.0-12.0) sec Potassium (3.5-5.1) mmol/L Carbon Dioxide (22-30) mmol/L BUN (7-17) mg/dL Creatinine (0.52-1.04) mg/dL Glucose (74-99) mg/dL POC Glucose (mg/dL) 186 H 217 H 104 H (75-99) mg/dL Calcium (8.4-10.2) mg/dL AST (14-36) U/L Total Protein (6.3-8.2) g/dL Albumin (3.5-5.0) g/dL 06/14/16 06/14/16 06/14/16 Range/Units 08:12 08:12 08:12 RBC 3.14 L (3.80-5.40) m/uL Hgb 8.7 L (11.4-16.0) gm/dL Hct 29.1 L (34.0-46.0) % MCHC 29.8 L (31.0-37.0) g/dL RDW 22.1 H (11.5-15.5) % PT 24.4 H (9.0-12.0) sec Potassium (3.5-5.1) mmol/L Carbon Dioxide 31 H (22-30) mmol/L BUN 46 H (7-17) mg/dL Creatinine 1.16 H (0.52-1.04) mg/dL Glucose 109 H (74-99) mg/dL POC Glucose (mg/dL) (75-99) mg/dL Calcium 8.2 L (8.4-10.2) mg/dL AST 13 L (14-36) U/L Total Protein 5.3 L (6.3-8.2) g/dL Albumin 2.5 L (3.5-5.0) g/dL Assessment and Plan Plan: 1. Polymicrobial pneumonia with MRSA and stenotrophomonas maltophilia with sepsis: Chest x-ray showing cardiomegaly with peripheral vascular congestion and patchy density in the right lower lobe. Also elevated temp of 102, white count 16.4 and lactic acid of 2.1. Patient followed by infectious disease and pulmonary. Patient has PICC line. Patient is status post bronchoscopy. Bronch cultures positive for influenza B. Patient started on Tamiflu. bronch cultures also growing MRSA and stenotrophomonas maltophilia. Bronchoscopy pathology shows no evidence of malignant cells. Followed by both pulmonary and infectious disease. Patient has completed the Tamiflu treatment. She's currently on vancomycin and Bactrim. 2. Acute on chronic systolic CHF exacerbation. Most recent echo shows an EF of 40-45%. BNP elevated in the 3000's. Chest x-ray showing peripheral vascular congestion. Evaluated by cardiology service. Continue Lasix 40 mg by mouth twice a day 3. Cardiac pauses. Continue with telemetry monitoring. Evaluated by cardiology and medications adjusted 4. Possible phlebitis of the left arm: Left arm pain and swelling bruising and firmness at old IV site. Showed improvement. Doppler shows no evidence of DVT. There was evidence of SVT. Keep arm elevated 5. Elevated troponin with no chest pain. Evaluated by cardiology 6. Acute anemia secondary to chronic blood loss and suspected lower GI bleed as well as iron deficiency anemia. Hemoglobin is up to 8.4. Patient received 1 dose of IV iron. And then will start ferrous sulfate 325 mg twice a day. Iron level low at 29. Was unable to have a colonoscopy during last admission due to multiple complications. She had a EGD last month at [facility] that was unremarkable. We'll continue to monitor hemoglobin. 7. Chronic atrial fibrillation maintained on Coumadin for anticoagulation. INR 2.5 8. History of COPD: Continue with nebulizer treatments. 9. Diabetes mellitus insulin-dependent: Continue Levemir and sliding scale coverage. Continue sliding scale coverage. Hemoglobin A1c of 7.2. 10. Left groin seroma: Wound culture growing MRSA. Continue vancomycin. Continue wound care. Followed by Dr. García. At discharge patient will follow -up with Dr. García in 2 weeks wound care center 11. Severe protein calorie malnutrition: Continue with protein supplements 12. Constipation: Improved 13. Acute bronchiectasis likely related to pneumonia. Pulmonary following in the recommending vest therapy. 14. Left flank hematoma: Continue to monitor closely. Dr. Parrish discussed case with multiple specialist on the case, recommendation were to continue with Coumadin due to recent arterial blood clot on the left lower extremity requiring surgery. Continue monitoring hemoglobin and continue to keep INR in the lower therapeutic area will follow closely. Case was discussed in details with patient and family. GI prophylaxis Protonix and DVT prophylaxis Coumadin
--- NOTE | 2016-06-14 12:10 | P.PN ---
Subjective This is a 76-year-old female patient who is being evaluated and examined today on the sixth floor. This patient is well-known to our service. This patient recently was hospitalized in April with a left leg ischemia status post thrombectomy, pneumonia, COPD exacerbation, GI bleed, and CHF exacerbation. The patient was subsequently discharged to [facility]. She came back to the emergency room with some shortness of breath, cough, fever, generalized weakness and lethargy. Patient has multiple readdmissions to the hospital due to her respiratory status and develops reoccuring pnemonia with her bronchiectasis. The patient was admitted with stay with pneumonia, bronchospasms, acute hypoxia, chronic anemia, febrile illness and elevated troponins. The patient is known to have chronic hypoxia and uses 3 L of oxygen at the rehab facility as well and she wears CPAP for obstructive sleep apnea. The patient underwent a bronchoscopy with Dr. Pittman. The patient had extensive amount of purulent secretions that were aspirated from both lungs, and both lungs appear to be plugged, patient tolerated procedure well. Patient states she feels significantly better post procedure. He was also known to have a left flank hematoma and will be started on Coumadin due to her recent arterial blood clot on the left lower extremity requiring surgery. Upon examination the patient is resting in bed up on 3-4 L of oxygen via nasal cannula. She continues to have shortness of breath, however slighlty improved. Continues with chronic cough which has been greater than a six-month minimum , occasionally productive with clear phlegm. She continues to use her flutter valve, however the patient has insufficient expiratory force therefore her flutter valve is a tried and failed alternative therapy to her bronchiectasis. Chest x-ray and CT were both reviewed and are consistent with bronchiectasis. Physical manual percussion therapy has been tried however the patient cannot tolerate the positioning due to her physical limitations. Objective - Vital Signs Vital signs: Vital Signs Temp 97.5 F L 06/14/16 07:00 Pulse 80 06/14/16 11:38 Resp 18 06/14/16 08:00 BP 150/64 06/14/16 07:00 Pulse Ox 92 L 06/14/16 11:00 Intake & Output 06/13/16 06/14/16 06/14/16 18:59 06:59 18:59 Output Total 350 350 Balance -350 -350 Weight 113 kg 113 kg Output: Urine 350 350 Other: Voiding Method Bedpan Bedpan Bedpan # Voids 1 2 2 # Bowel Movements 1 0 - Exam GENERAL EXAM: Alert, active, comfortable in no apparent distress. HEAD: Normocephalic. EYES: Normal reaction of pupils, equal size. NOSE: Clear with pink turbinates. THROAT: No erythema or exudates. NECK: No masses, no JVD. CHEST: No chest wall deformity. LUNGS: Lungs noted to be bilaterally coarse and congested, with few faint rhonchi. Some fine crackles at the bases. CVS: S1 and S2 normal with no audible mumurs, regular rhythm. ABDOMEN: No hepatosplenomegaly, normal bowel sounds, no guarding or rigidity. There is no left flank bruising or discoloration noted. EXTREMITIES: Trace edema noted, pedal pulses palpable. SKIN: No rashes CENTRAL NERVOUS SYSTEM: No focal deficits, tone is normal in all 4 extremities. - Labs CBC & Chem 7: 06/14/16 08:12 06/14/16 08:12 Labs: Abnormal Lab Results - Last 24 Hours (Table) 06/13/16 06/13/16 06/14/16 Range/Units 17:03 20:53 07:13 RBC (3.80-5.40) m/uL Hgb (11.4-16.0) gm/dL Hct (34.0-46.0) % MCHC (31.0-37.0) g/dL RDW (11.5-15.5) % PT (9.0-12.0) sec Carbon Dioxide (22-30) mmol/L BUN (7-17) mg/dL Creatinine (0.52-1.04) mg/dL Glucose (74-99) mg/dL POC Glucose (mg/dL) 186 H 217 H 104 H (75-99) mg/dL Calcium (8.4-10.2) mg/dL AST (14-36) U/L Total Protein (6.3-8.2) g/dL Albumin (3.5-5.0) g/dL 06/14/16 06/14/16 06/14/16 Range/Units 08:12 08:12 08:12 RBC 3.14 L (3.80-5.40) m/uL Hgb 8.7 L (11.4-16.0) gm/dL Hct 29.1 L (34.0-46.0) % MCHC 29.8 L (31.0-37.0) g/dL RDW 22.1 H (11.5-15.5) % PT 24.4 H (9.0-12.0) sec Carbon Dioxide 31 H (22-30) mmol/L BUN 46 H (7-17) mg/dL Creatinine 1.16 H (0.52-1.04) mg/dL Glucose 109 H (74-99) mg/dL POC Glucose (mg/dL) (75-99) mg/dL Calcium 8.2 L (8.4-10.2) mg/dL AST 13 L (14-36) U/L Total Protein 5.3 L (6.3-8.2) g/dL Albumin 2.5 L (3.5-5.0) g/dL Assessment and Plan Plan: Assessment MRSA Pneumonia with sepsis Acute exacerbation of chronic obstructive pulmonary disease Acute on chronic systolic congestive heart failure exacerbation Elevated troponins Acute anemia secondary to chronic blood loss and suspected lower GI bleed Chronic atrial fibrillation Diabetes mellitus insulin-dependent Acute on chronic hypoxic respiratory failure Obesity hypoventilation Bronchiectasis Chronic cough lasting longer than 6 months Flank hematoma Plan Patient can be cleared from a pulmonary standpoint for discharge. Medications have been reviewed and will be continued as ordered. Cardiology and ID is also on consult. Continues in contact per cautions for her MRSA in the sputum. Physical percussion is noted to be a failed therapy due to the patient being unable to tolerate positioning as well as the physical limitations of her body. The flutter therapy is ineffective as well due to the patient having an insufficient expiratory force. Both chest x-ray and CT results reviewed and are consistent with her bronchiectasis. Continue with supportive care. This patient would best benefit with an airway clearance vest therapy, which we will provide a prescription for her. Despite there evidence of flank hematoma the patient will continue with Coumadin for anticoagulation therapy per suggestion from Dr. García, due to her recent occlusion of her leg requiring surgery. We will continue to monitor labs/results and adjust treatment as necessary. I performed an examination of the patient and discussed their management with the nurse practitioner. I have reviewed the nurse practitioner's note and agree with the documented findings and plan of care.
[2016-06-14 12:15] LABS: Glucose,Whole Blood 139 mg/dL (75-99)
[2016-06-14] MEDS: LACTATED RINGERS 1,000 ML IV SCH (14:04)
[2016-06-14 14:09] VITALS: BMI 37.8
[2016-06-14] MEDS: VANCOMYCIN 1,000 MG in SODIUM CHLORIDE 0.9% 250 ML IVPB SCH (16:40)
[2016-06-14 17:18] LABS: Glucose,Whole Blood 186 mg/dL (75-99)
[2016-06-14] MEDS: WARFARIN 1 MG TAB PO SCH (17:53)
[2016-06-14 20:41] LABS: Glucose,Whole Blood 196 mg/dL (75-99)
[2016-06-14] MEDS: PRAVASTATIN SODIUM 20 MG TAB PO SCH (20:53)
[2016-06-14] MEDS: POLYETHYLENE GLYCOL 3350 17 GM POWD.PACK PO SCH ×2 (20:53→21:55)
[2016-06-14] MEDS: LOSARTAN 50 MG TAB PO SCH (20:53)
[2016-06-14] MEDS: MONTELUKAST 10 MG TAB PO SCH (20:53)
--- NOTE | 2016-06-14 21:22 | P.PN ---
Subjective Principal diagnosis: Shortness of breath 76-year-old female who has an extensive hospitalization currently at 7 days of admission but actually it's been longer than that due to her short hiatus out of the hospital. She was deemed medically stable to be to leave the hospital to attend her 's this occurred while she has been so ill. The patient was admitted with severe shortness of breath from the extended care facility she was being cared for after her gastrointestinal bleeding and worsening of her underlying pulmonary disease. The patient does have severe underlying pulmonary disease and wears oxygen at all times and does use a CPAP at night because of her sleep apnea. Recently this has definitely been worse and because of concerns to ongoing pneumonia the infectious diseases consultation was requested This patient relates she just feeling slightly better than when she was first admitted. She was having difficulties that time also with her lower extremity and the left. She was seen by vascular surgery and a large clot was noted and a thrombectomy , endarterectomy and patch angioplasty was performed of the left arterial system, large clot was seen. Patient relates that her leg continues to feel okay. She is less short of breath. She did have bronchoscopy. Evidence of influenza B was found. Also evidence of MRSA as well as Stenotrophomonas maltophilia. She is now completed her course of Tamiflu. Is being treated with vancomycin and Bactrim for the isolate pathogens. She is feeling better. Appetite is still poor but is using some of her lunch today. She is encouraged to eat as much of the protein as she can Objective - Vital Signs Vital signs: Vital Signs Temp 96.5 F L 06/14/16 15:00 Pulse 90 06/14/16 20:52 Resp 16 06/14/16 17:13 BP 126/78 06/14/16 15:00 Pulse Ox 91 L 06/14/16 15:00 Intake & Output 06/14/16 06/14/16 06/15/16 06:59 18:59 06:59 Intake Total 200 Output Total 350 700 Balance -350 -500 Weight 113 kg 113 kg Intake: Oral 200 Output: Urine 350 700 Other: Voiding Method Bedpan Bedpan # Voids 2 3 # Bowel Movements 0 - Exam 76-year-old woman who relates she is feeling less short of breath but appears to still be short of breath HEENT: Anicteric conjunctiva are pink and moist nasal mucosa grossly intact without significant lesions, there is no thrush. Worn dentition Neck: The neck is supple without significant lymphadenopathy or thyromegaly. Lungs: Symmetrical air entry is noted. Wheezes throughout the lung olivares are noted. Bibasilar crackles are heard right greater than left no dullness is noted minimal egophony to the right base is noted Heart: Regular rate and rhythm with an audible S1-S2, no S3 no S4. There is no significant murmur click or rub, PMI was nondisplaced. Abdomen: Obese, Positive bowel sounds soft and nontender without palpable masses or organomegaly. There was no guarding or rebound. The left lateral flank with hematomas been present is less tender. Extremities: The upper and lower extremity is have some generalized edema. However no open ulcerations are seen. The entry site for the thrombectomy is without bleeding drainage or tenderness Neuro: Awake alert oriented to person place and time. There are no acute new gross focal sensory motor deficits. She has significant generalized weakness though - Labs CBC & Chem 7: 06/14/16 08:12 06/14/16 08:12 Labs: Abnormal Lab Results - Last 24 Hours (Table) 06/14/16 06/14/16 06/14/16 Range/Units 07:13 08:12 08:12 RBC 3.14 L (3.80-5.40) m/uL Hgb 8.7 L (11.4-16.0) gm/dL Hct 29.1 L (34.0-46.0) % MCHC 29.8 L (31.0-37.0) g/dL RDW 22.1 H (11.5-15.5) % PT 24.4 H (9.0-12.0) sec Carbon Dioxide (22-30) mmol/L BUN (7-17) mg/dL Creatinine (0.52-1.04) mg/dL Glucose (74-99) mg/dL POC Glucose (mg/dL) 104 H (75-99) mg/dL Calcium (8.4-10.2) mg/dL AST (14-36) U/L Total Protein (6.3-8.2) g/dL Albumin (3.5-5.0) g/dL 06/14/16 06/14/16 06/14/16 Range/Units 08:12 12:13 17:11 RBC (3.80-5.40) m/uL Hgb (11.4-16.0) gm/dL Hct (34.0-46.0) % MCHC (31.0-37.0) g/dL RDW (11.5-15.5) % PT (9.0-12.0) sec Carbon Dioxide 31 H (22-30) mmol/L BUN 46 H (7-17) mg/dL Creatinine 1.16 H (0.52-1.04) mg/dL Glucose 109 H (74-99) mg/dL POC Glucose (mg/dL) 139 H 186 H (75-99) mg/dL Calcium 8.2 L (8.4-10.2) mg/dL AST 13 L (14-36) U/L Total Protein 5.3 L (6.3-8.2) g/dL Albumin 2.5 L (3.5-5.0) g/dL 06/14/16 Range/Units 20:40 RBC (3.80-5.40) m/uL Hgb (11.4-16.0) gm/dL Hct (34.0-46.0) % MCHC (31.0-37.0) g/dL RDW (11.5-15.5) % PT (9.0-12.0) sec Carbon Dioxide (22-30) mmol/L BUN (7-17) mg/dL Creatinine (0.52-1.04) mg/dL Glucose (74-99) mg/dL POC Glucose (mg/dL) 196 H (75-99) mg/dL Calcium (8.4-10.2) mg/dL AST (14-36) U/L Total Protein (6.3-8.2) g/dL Albumin (3.5-5.0) g/dL Laboratory Results WBC 9.0 k/uL (3.8-10.6) 06/14/16 08:12 RBC 3.14 m/uL (3.80-5.40) L 06/14/16 08:12 Hgb 8.7 gm/dL (11.4-16.0) L 06/14/16 08:12 Hct 29.1 % (34.0-46.0) L 06/14/16 08:12 MCV 92.7 fL (80.0-100.0) 06/14/16 08:12 MCH 27.6 pg (25.0-35.0) 06/14/16 08:12 MCHC 29.8 g/dL (31.0-37.0) L 06/14/16 08:12 RDW 22.1 % (11.5-15.5) H 06/14/16 08:12 Plt Count 191 k/uL (150-450) 06/14/16 08:12 Neutrophils % 78 % 06/14/16 08:12 Neutrophils % (Manual) 78.5 % 05/31/16 06:08 Lymphocytes % 12 % 06/14/16 08:12 Lymphocytes % (Manual) 13.5 % 05/31/16 06:08 Monocytes % 8 % 06/14/16 08:12 Monocytes % (Manual) 4.5 % 05/31/16 06:08 Eosinophils % 0 % 06/14/16 08:12 Eosinophils % (Manual) 0.5 % 05/31/16 06:08 Basophils % 0 % 06/14/16 08:12 Metamyelocytes % 2.0 % 05/31/16 06:08 Myelocytes % 1.0 % 05/31/16 06:08 Neutrophils # 7.0 k/uL (1.3-7.7) 06/14/16 08:12 Neutrophils # (Manual) 8.8 k/uL (1.3-7.7) H 05/31/16 06:08 Lymphocytes # 1.1 k/uL (1.0-4.8) 06/14/16 08:12 Lymphocytes # (Manual) 1.5 k/uL (1.0-4.8) 05/31/16 06:08 Monocytes # 0.7 k/uL (0-1.0) 06/14/16 08:12 Monocytes # (Manual) 0.5 k/uL (0-1.0) 05/31/16 06:08 Eosinophils # 0.0 k/uL (0-0.7) 06/14/16 08:12 Eosinophils # (Manual) 0.1 k/uL (0-0.7) 05/31/16 06:08 Basophils # 0.0 k/uL (0-0.2) 06/14/16 08:12 Nucleated RBCs 0 /100 WBC (0-0) 05/31/16 06:08 Manual Slide Review Performed 05/31/16 06:08 Hypochromasia Marked 06/14/16 08:12 Poikilocytosis Slight 06/13/16 11:20 Anisocytosis Moderate 06/14/16 08:12 Macrocytosis Slight 06/14/16 08:12 PT 24.4 sec (9.0-12.0) H 06/14/16 08:12 INR 2.5 (<1.1) 06/14/16 08:12 APTT 27.1 sec (22.0-30.0) 05/19/16 10:05 Sodium 140 mmol/L (137-145) 06/14/16 08:12 Potassium 4.9 mmol/L (3.5-5.1) 06/14/16 08:12 Chloride 104 mmol/L (98-107) 06/14/16 08:12 Carbon Dioxide 31 mmol/L (22-30) H 06/14/16 08:12 Anion Gap 5 mmol/L 06/14/16 08:12 BUN 46 mg/dL (7-17) H 06/14/16 08:12 Creatinine 1.16 mg/dL (0.52-1.04) H 06/14/16 08:12 Est GFR (MDRD) Af Amer 55 (>60 ml/min/1.73 sqM) 06/14/16 08:12 Est GFR (MDRD) Non-Af 45 (>60 ml/min/1.73 sqM) 06/14/16 08:12 Glucose 109 mg/dL (74-99) H 06/14/16 08:12 POC Glucose (mg/dL) 196 mg/dL (75-99) H 06/14/16 20:40 POC Glu Micro Photographer Joi Otero 06/14/16 20:[address] Glu mg/dL 166 mg/dL 05/23/16 07:03 Hemoglobin A1c 7.4 % (4.2-6.1) H 05/23/16 07:03 Plasma Lactic Acid Good 1.4 mmol/L (0.7-2.0) 05/19/16 13:51 Calcium 8.2 mg/dL (8.4-10.2) L 06/14/16 08:12 Phosphorus 4.0 mg/dL (2.5-4.5) 06/02/16 13:22 Magnesium 1.7 mg/dL (1.6-2.3) 06/02/16 13:22 Iron 29 ug/dL (37-170) L 06/03/16 05:50 TIBC 238 ug/dL (265-497) L 06/03/16 05:50 % Saturation 12.2 % (20-50) L 06/03/16 05:50 Ferritin 90 ng/mL (11-264) 06/03/16 05:50 Total Bilirubin 0.3 mg/dL (0.2-1.3) 06/14/16 08:12 AST 13 U/L (14-36) L 06/14/16 08:12 ALT 27 U/L (9-52) 06/14/16 08:12 Alkaline Phosphatase 46 U/L (38-126) 06/14/16 08:12 Total Creatine Kinase <20 U/L (30-135) L 05/19/16 10:05 CK-MB (CK-2) <0.2 ng/mL (0.0-2.4) 05/19/16 10:05 CK-MB (CK-2) Rel Index 05/19/16 10:05 Troponin I 0.071 ng/mL (0.000-0.034) H* 05/19/16 10:05 NT-Pro-B Natriuret Pep 3920 pg/mL 05/20/16 09:00 Total Protein 5.3 g/dL (6.3-8.2) L 06/14/16 08:12 Albumin 2.5 g/dL (3.5-5.0) L 06/14/16 08:12 Amylase 40 U/L (30-110) 06/12/16 12:00 Lipase 15 U/L (23-300) L 06/12/16 12:00 TSH 2.550 mIU/L (0.465-4.680) 05/21/16 06:30 Free T4 0.76 ng/dL (0.78-2.19) L 05/21/16 06:30 Urine Color Light Yellow 05/19/16 10:25 Urine Appearance Clear (Clear) 05/19/16 10:25 Urine pH 6.5 (5.0-8.0) 05/19/16 10:25 Ur Specific [place] 1.011 (1.001-1.035) 05/19/16 10:25 Urine Protein Trace (Negative) H 05/19/16 10:25 Urine Glucose (UA) Negative (Negative) 05/19/16 10:25 Urine Ketones Negative (Negative) 05/19/16 10:25 Urine Blood Negative (Negative) 05/19/16 10:25 Urine Nitrite Negative (Negative) 05/19/16 10:25 Urine Bilirubin Negative (Negative) 05/19/16 10:25 Urine Urobilinogen <2.0 mg/dL (<2.0) 05/19/16 10:25 Ur Leukocyte Esterase Negative (Negative) 05/19/16 10:25 Vancomycin Trough 16.4 ug/mL 06/11/16 15:15 Random Vancomycin 19.6 ug/mL 06/05/16 08:11 Influenza Type A RNA Not Detected (Not Detectd) 05/19/16 10:05 Influenza Type B (PCR) Not Detected (Not Detectd) 05/19/16 10:05 Virus Source See Below 06/02/16 14:30 Viral Test See Below H 06/02/16 14:30 Virus Analysis Interp See Below 06/02/16 14:30 Miscellaneous Test Legionella, PCR 06/02/16 15:30 Misc Test Result See comment 06/02/16 15:30 Blood Type A Positive 05/23/16 09:33 Blood Type Recheck No 05/23/16 09:33 Antibody Screen NEGATIVE 05/23/16 09:33 Crossmatch See Detail 05/23/16 09:33 Spec Expiration Date 05/26/2016233205/23/16 09:33 Laboratory Results WBC 9.0 k/uL (3.8-10.6) 06/14/16 08:12 RBC 3.14 m/uL (3.80-5.40) L 06/14/16 08:12 Hgb 8.7 gm/dL (11.4-16.0) L 06/14/16 08:12 Hct 29.1 % (34.0-46.0) L 06/14/16 08:12 MCV 92.7 fL (80.0-100.0) 06/14/16 08:12 MCH 27.6 pg (25.0-35.0) 06/14/16 08:12 MCHC 29.8 g/dL (31.0-37.0) L 06/14/16 08:12 RDW 22.1 % (11.5-15.5) H 06/14/16 08:12 Plt Count 191 k/uL (150-450) 06/14/16 08:12 Neutrophils % 78 % 06/14/16 08:12 Neutrophils % (Manual) 78.5 % 05/31/16 06:08 Lymphocytes % 12 % 06/14/16 08:12 Lymphocytes % (Manual) 13.5 % 05/31/16 06:08 Monocytes % 8 % 06/14/16 08:12 Monocytes % (Manual) 4.5 % 05/31/16 06:08 Eosinophils % 0 % 06/14/16 08:12 Eosinophils % (Manual) 0.5 % 05/31/16 06:08 Basophils % 0 % 06/14/16 08:12 Metamyelocytes % 2.0 % 05/31/16 06:08 Myelocytes % 1.0 % 05/31/16 06:08 Neutrophils # 7.0 k/uL (1.3-7.7) 06/14/16 08:12 Neutrophils # (Manual) 8.8 k/uL (1.3-7.7) H 05/31/16 06:08 Lymphocytes # 1.1 k/uL (1.0-4.8) 06/14/16 08:12 Lymphocytes # (Manual) 1.5 k/uL (1.0-4.8) 05/31/16 06:08 Monocytes # 0.7 k/uL (0-1.0) 06/14/16 08:12 Monocytes # (Manual) 0.5 k/uL (0-1.0) 05/31/16 06:08 Eosinophils # 0.0 k/uL (0-0.7) 06/14/16 08:12 Eosinophils # (Manual) 0.1 k/uL (0-0.7) 05/31/16 06:08 Basophils # 0.0 k/uL (0-0.2) 06/14/16 08:12 Nucleated RBCs 0 /100 WBC (0-0) 05/31/16 06:08 Manual Slide Review Performed 05/31/16 06:08 Hypochromasia Marked 06/14/16 08:12 Poikilocytosis Slight 06/13/16 11:20 Anisocytosis Moderate 06/14/16 08:12 Macrocytosis Slight 06/14/16 08:12 PT 24.4 sec (9.0-12.0) H 06/14/16 08:12 INR 2.5 (<1.1) 06/14/16 08:12 APTT 27.1 sec (22.0-30.0) 05/19/16 10:05 Sodium 140 mmol/L (137-145) 06/14/16 08:12 Potassium 4.9 mmol/L (3.5-5.1) 06/14/16 08:12 Chloride 104 mmol/L (98-107) 06/14/16 08:12 Carbon Dioxide 31 mmol/L (22-30) H 06/14/16 08:12 Anion Gap 5 mmol/L 06/14/16 08:12 BUN 46 mg/dL (7-17) H 06/14/16 08:12 Creatinine 1.16 mg/dL (0.52-1.04) H 06/14/16 08:12 Est GFR (MDRD) Af Amer 55 (>60 ml/min/1.73 sqM) 06/14/16 08:12 Est GFR (MDRD) Non-Af 45 (>60 ml/min/1.73 sqM) 06/14/16 08:12 Glucose 109 mg/dL (74-99) H 06/14/16 08:12 POC Glucose (mg/dL) 196 mg/dL (75-99) H 06/14/16 20:40 POC Glu Micro Photographer ID Joi Meyer 06/14/16 20:[address] Glu mg/dL 166 mg/dL 05/23/16 07:03 Hemoglobin A1c 7.4 % (4.2-6.1) H 05/23/16 07:03 Plasma Lactic Acid Good 1.4 mmol/L (0.7-2.0) 05/19/16 13:51 Calcium 8.2 mg/dL (8.4-10.2) L 06/14/16 08:12 Phosphorus 4.0 mg/dL (2.5-4.5) 06/02/16 13:22 Magnesium 1.7 mg/dL (1.6-2.3) 06/02/16 13:22 Iron 29 ug/dL (37-170) L 06/03/16 05:50 TIBC 238 ug/dL (265-497) L 06/03/16 05:50 % Saturation 12.2 % (20-50) L 06/03/16 05:50 Ferritin 90 ng/mL (11-264) 06/03/16 05:50 Total Bilirubin 0.3 mg/dL (0.2-1.3) 06/14/16 08:12 AST 13 U/L (14-36) L 06/14/16 08:12 ALT 27 U/L (9-52) 06/14/16 08:12 Alkaline Phosphatase 46 U/L (38-126) 06/14/16 08:12 Total Creatine Kinase <20 U/L (30-135) L 05/19/16 10:05 CK-MB (CK-2) <0.2 ng/mL (0.0-2.4) 05/19/16 10:05 CK-MB (CK-2) Rel Index 05/19/16 10:05 Troponin I 0.071 ng/mL (0.000-0.034) H* 05/19/16 10:05 NT-Pro-B Natriuret Pep 3920 pg/mL 05/20/16 09:00 Total Protein 5.3 g/dL (6.3-8.2) L 06/14/16 08:12 Albumin 2.5 g/dL (3.5-5.0) L 06/14/16 08:12 Amylase 40 U/L (30-110) 06/12/16 12:00 Lipase 15 U/L (23-300) L 06/12/16 12:00 TSH 2.550 mIU/L (0.465-4.680) 05/21/16 06:30 Free T4 0.76 ng/dL (0.78-2.19) L 05/21/16 06:30 Urine Color Light Yellow 05/19/16 10:25 Urine Appearance Clear (Clear) 05/19/16 10:25 Urine pH 6.5 (5.0-8.0) 05/19/16 10:25 Ur Specific [place] 1.011 (1.001-1.035) 05/19/16 10:25 Urine Protein Trace (Negative) H 05/19/16 10:25 Urine Glucose (UA) Negative (Negative) 05/19/16 10:25 Urine Ketones Negative (Negative) 05/19/16 10:25 Urine Blood Negative (Negative) 05/19/16 10:25 Urine Nitrite Negative (Negative) 05/19/16 10:25 Urine Bilirubin Negative (Negative) 05/19/16 10:25 Urine Urobilinogen <2.0 mg/dL (<2.0) 05/19/16 10:25 Ur Leukocyte Esterase Negative (Negative) 05/19/16 10:25 Vancomycin Trough 16.4 ug/mL 06/11/16 15:15 Random Vancomycin 19.6 ug/mL 06/05/16 08:11 Influenza Type A RNA Not Detected (Not Detectd) 05/19/16 10:05 Influenza Type B (PCR) Not Detected (Not Detectd) 05/19/16 10:05 Virus Source See Below 06/02/16 14:30 Viral Test See Below H 06/02/16 14:30 Virus Analysis Interp See Below 06/02/16 14:30 Miscellaneous Test Legionella, PCR 06/02/16 15:30 Misc Test Result See comment 06/02/16 15:30 Blood Type A Positive 05/23/16 09:33 Blood Type Recheck No 05/23/16 09:33 Antibody Screen NEGATIVE 05/23/16 09:33 Crossmatch See Detail 05/23/16 09:33 Spec Expiration Date 05/26/2016 - 233205/23/16 09:33 Microbiology 06/02/16 14:30 Bronchial Washings - Right Fungal Culture - Preliminary Gabriela albicans 06/02/16 14:30 Bronchial Washings - Right Gram Stain - Final 06/02/16 14:30 Bronchial Washings - Right Bronchial Washings Culture - Final Methicillin resist S. aureus Stenotrophomonas maltophilia 06/02/16 14:30 Bronchial Washings - Right Acid Fast Bacilli Smear - Final 06/02/16 14:30 Bronchial Washings - Right Acid Fast Bacilli Culture - Preliminary 05/30/16 00:30 Groin Anaerobic Culture - Final 05/30/16 00:30 Groin Gram Stain - Final 05/30/16 00:30 Groin Wound Culture - Final Methicillin resist S. aureus 05/30/16 01:40 Sputum Gram Stain - Final 05/30/16 01:40 Sputum Sputum Culture - Final Methicillin resist S. aureus 05/21/16 12:55 Blood Blood Culture - Final No Growth after 144 hours 05/19/16 10:05 Blood Blood Culture - Final No Growth after 144 hours Assessment and Plan (1) MRSA pneumonia Narrative/Plan: 76-year-old female who has multiple medical troubles occluding underlying significant cardiovascular disease, chronic pulmonary disease with oxygen dependence as well as sleep apnea presents to Hospital profoundly ill from the [facility]. Apparently hospitalized for she had difficulties with gastrointestinal bleeding. During this stay she's had difficulties with congestive heart failure, exacerbation of COPD, extensive thrombus to the left leg requiring thrombectomy and endarterectomy. Patient relates is feeling just slightly better today. Review of the previous culture reveals evidence she does have evidence of the sputum culture with evidence of MRSA present. It does appear to be levofloxacin resistant. She was initiated vancomycin therapy. Is now having improvement within the last day. Vancomycin therapy will continue. Likely would treat her for the next 14 days. We'll request her vascular surgeon for IV access, or PICC line if he agrees. We need to have her INR closer to 2 We'll monitor response to current antibiotic therapy. We'll likely need to complete a course of this time of her transfer back to [facility]. A bronchoscopy was performed and is allowed her to have an improvement by pulmonary toileting. As noted influenza B was found she's now completed her 5 day course of Tamiflu. We will plan on continuing isolation through at least Tuesday hopefully she'll be transferred at that time. As far as the MRSA and stenotrophomonas maltophilia. Continue vancomycin and Bactrim at this time. Plan 14 days. Monitor her INR closely The pneumocystis and Legionella testing is negative. Her creatinine is stable at this time. The patient did have evidence of the hematoma the abdominal wall. She's had a bowel movement is feeling considerably better. She is not having significant discomfort related to the hematoma. Hemoglobin is stable at this time. Would avoid IV iron therapy while she is being treated for her pneumonia. Status: Acute (2) Chronic a-fib Status: Acute (3) Acute blood loss anemia Status: Acute (4) Leukocytosis Status: Acute
[2016-06-15] MEDS: HYDROcodone/APAP 10-325MG 1 EACH TAB PO PRN ×4 (05:35→23:23)
[2016-06-15 06:47] LABS: Anisocytosis Moderate; Basophils % (A) 0 %; CH 27.1; CHCM 29.1; Eosinophils % (A) 0 %; HCT 29.6 % (34.0-46.0); HDW 3.31; HGB 8.9 gm/dL (11.4-16.0); Hypochromasia Marked; Luc # (Auto) 0.18; Luc % (Auto) 2; Lymphocytes # (A) 1.5 k/uL (1.0-4.8); Lymphocytes % (A) 16 %; MCH 27.7 pg (25.0-35.0); MCHC 29.9 g/dL (31.0-37.0); MCV 92.7 fL (80.0-100.0); Macrocytosis Slight; Mean Platelet Volume 7.7; Monocytes # (A) 0.7 k/uL (0-1.0); Monocytes % (A) 8 %; Neutrophils # (A) 7.2 k/uL (1.3-7.7); Neutrophils % (A) 74 %; RBC 3.19 m/uL (3.80-5.40); RDW 21.5 % (11.5-15.5); WBC 9.7 k/uL (3.8-10.6)
[2016-06-15 06:53] LABS: Glucose,Whole Blood 59 mg/dL (75-99)
[2016-06-15 06:54] LABS: INR 1.8 (<1.1); Prothrombin Time 17.2 sec (9.0-12.0)
[2016-06-15 07:03] LABS: ALT 29 U/L (9-52); AST 16 U/L (14-36); Alkaline Phosphatase 43 U/L (38-126); Anion Gap 6 mmol/L; Blood Urea Nitrogen 42 mg/dL (7-17); Calcium 8.3 mg/dL (8.4-10.2); Carbon Dioxide 30 mmol/L (22-30); Chloride 104 mmol/L (98-107); Non-African American GFR(MDRD) 51 (>60 ml/min/1.73 sqM); Potassium 4.6 mmol/L (3.5-5.1); Sodium 140 mmol/L (137-145); Total Bilirubin 0.3 mg/dL (0.2-1.3); Total Protein 5.3 g/dL (6.3-8.2)
[2016-06-15 07:16] LABS: Glucose,Whole Blood 88 mg/dL (75-99)
[2016-06-15 07:18] LABS: Glucose 47 mg/dL (74-99)
[2016-06-15] MEDS: INSULIN LISPRO (humaLOG) 300 UNIT/3 ML VIAL SQ SCH ×4 (08:14→21:34)
[2016-06-15] MEDS: BUDESONIDE 1 MG/2 ML NEBU INHALATION SCH ×2 (08:41→21:01)
[2016-06-15] MEDS: IPRATROPIUM-ALBUTEROL 3 ML NEB INHALATION SCH ×4 (08:41→21:01)
[2016-06-15] MEDS: DOCUSATE 100 MG CAP PO SCH ×2 (09:23→21:33)
[2016-06-15] MEDS: FUROSEMIDE 40 MG TAB PO SCH ×2 (09:24→15:43)
[2016-06-15] MEDS: SULFAMETHOX-TMP 400-80MG 1 EACH TAB PO SCH ×2 (09:24→21:34)
[2016-06-15] MEDS: PANTOPRAZOLE 40 MG TABLET PO SCH (09:24)
[2016-06-15] MEDS: predniSONE 20 MG TAB PO SCH (09:24)
[2016-06-15] MEDS: FERROUS SULFATE 325 MG TAB PO SCH ×2 (09:24→21:33)
[2016-06-15] MEDS: METOPROLOL SUCCINATE (ER) 100 MG TAB.ER.24H PO SCH ×2 (09:25→21:33)
[2016-06-15] MEDS: guaiFENesin 600 MG TABLET.ER PO SCH ×2 (09:25→21:33)
[2016-06-15] MEDS: DIGOXIN 125 MCG TAB PO SCH (09:25)
[2016-06-15] MEDS: ALPRAZolam 0.25 MG TAB PO SCH ×2 (09:29→21:33)
[2016-06-15 11:36] LABS: Glucose,Whole Blood 215 mg/dL (75-99)
[2016-06-15] MEDS: INSULIN DETEMIR 100 UNIT/ML 10 ML VIAL SQ SCH ×2 (11:53→21:33)
[2016-06-15] MEDS: LACTATED RINGERS 1,000 ML IV SCH (12:22)
[2016-06-15] MEDS ORDERED: VANCOMYCIN TROUGH DUE 1 EACH MISC MISCELLANE ONE (15:00)
[2016-06-15] MEDS: VANCOMYCIN 1,000 MG in SODIUM CHLORIDE 0.9% 250 ML IVPB SCH (15:42)
--- NOTE | 2016-06-15 16:03 | P.PN ---
Subjective This is a 76-year-old female patient who is being evaluated and examined today on the sixth floor. This patient is well-known to our service. This patient recently was hospitalized in April with a left leg ischemia status post thrombectomy, pneumonia, COPD exacerbation, GI bleed, and CHF exacerbation. The patient was subsequently discharged to [facility] [place]. She came back to the emergency room with some shortness of breath, cough, fever, generalized weakness and lethargy. Patient has multiple readdmissions to the hospital due to her respiratory status and develops reoccuring pnemonia with her bronchiectasis. The patient was admitted with stay with pneumonia, bronchospasms, acute hypoxia, chronic anemia, febrile illness and elevated troponins. The patient is known to have chronic hypoxia and uses 3 L of oxygen at the rehab facility as well and she wears CPAP for obstructive sleep apnea. The patient underwent a bronchoscopy with Dr. Pittman. The patient had extensive amount of purulent secretions that were aspirated from both lungs, and both lungs appear to be plugged, patient tolerated procedure well. Patient states she feels significantly better post procedure. He was also known to have a left flank hematoma and will be started on Coumadin due to her recent arterial blood clot on the left lower extremity requiring surgery. Upon examination the patient is resting in bed up on 3-4 L of oxygen via nasal cannula. She continues to have shortness of breath, however slighlty improved. Continues with chronic cough which has been greater than a six-month minimum , occasionally productive with clear phlegm. She continues to use her flutter valve, however the patient has insufficient expiratory force therefore her flutter valve is a tried and failed alternative therapy to her bronchiectasis. Chest x-ray and CT were both reviewed and are consistent with bronchiectasis. Physical manual percussion therapy has been tried however the patient cannot tolerate the positioning due to her physical limitations. Patients discharge was held previously due to a hematoma, Coumadin being addressed with primary and vascular services. Objective - Vital Signs Vital signs: Vital Signs Temp 97.3 F L 06/15/16 15:00 Pulse 94 06/15/16 15:00 Resp 16 06/15/16 15:00 BP 141/93 06/15/16 15:00 Pulse Ox 91 L 06/15/16 15:00 Intake & Output 06/14/16 06/15/16 06/15/16 18:59 06:59 18:59 Intake Total 200 360 Output Total 700 Balance -500 360 Weight 113 kg 122 kg 122 kg Intake: IV 160 Lactated Ringers 1,000 ml 160 @ 20 mls/hr IV .Q24H [facility] Rx#:[id number] Oral 200 200 Output: Urine 700 Other: Voiding Method Bedpan Bedpan Bedpan # Voids 3 3 5 - Exam GENERAL EXAM: Alert, active, comfortable in no apparent distress. HEAD: Normocephalic. EYES: Normal reaction of pupils, equal size. NOSE: Clear with pink turbinates. THROAT: No erythema or exudates. NECK: No masses, no JVD. CHEST: No chest wall deformity. LUNGS: Lungs noted to be bilaterally coarse and congested, with few faint rhonchi. Some fine crackles at the bases. CVS: S1 and S2 normal with no audible mumurs, regular rhythm. ABDOMEN: No hepatosplenomegaly, normal bowel sounds, no guarding or rigidity. There is no left flank bruising or discoloration noted. EXTREMITIES: Trace edema noted, pedal pulses palpable. SKIN: No rashes CENTRAL NERVOUS SYSTEM: No focal deficits, tone is normal in all 4 extremities. - Labs CBC & Chem 7: 06/15/16 06:30 06/15/16 06:30 Labs: Abnormal Lab Results - Last 24 Hours (Table) 06/14/16 06/14/16 06/15/16 Range/Units 17:11 20:40 06:30 RBC 3.19 L (3.80-5.40) m/uL Hgb 8.9 L (11.4-16.0) gm/dL Hct 29.6 L (34.0-46.0) % MCHC 29.9 L (31.0-37.0) g/dL RDW 21.5 H (11.5-15.5) % PT (9.0-12.0) sec BUN (7-17) mg/dL Creatinine (0.52-1.04) mg/dL Glucose (74-99) mg/dL POC Glucose (mg/dL) 186 H 196 H (75-99) mg/dL Calcium (8.4-10.2) mg/dL Total Protein (6.3-8.2) g/dL Albumin (3.5-5.0) g/dL 06/15/16 06/15/16 06/15/16 Range/Units 06:30 06:30 06:49 RBC (3.80-5.40) m/uL Hgb (11.4-16.0) gm/dL Hct (34.0-46.0) % MCHC (31.0-37.0) g/dL RDW (11.5-15.5) % PT 17.2 H (9.0-12.0) sec BUN 42 H (7-17) mg/dL Creatinine 1.05 H (0.52-1.04) mg/dL Glucose 47 L* (74-99) mg/dL POC Glucose (mg/dL) 59 L (75-99) mg/dL Calcium 8.3 L (8.4-10.2) mg/dL Total Protein 5.3 L (6.3-8.2) g/dL Albumin 2.5 L (3.5-5.0) g/dL 06/15/16 Range/Units 11:31 RBC (3.80-5.40) m/uL Hgb (11.4-16.0) gm/dL Hct (34.0-46.0) % MCHC (31.0-37.0) g/dL RDW (11.5-15.5) % PT (9.0-12.0) sec BUN (7-17) mg/dL Creatinine (0.52-1.04) mg/dL Glucose (74-99) mg/dL POC Glucose (mg/dL) 215 H (75-99) mg/dL Calcium (8.4-10.2) mg/dL Total Protein (6.3-8.2) g/dL Albumin (3.5-5.0) g/dL Assessment and Plan Plan: Assessment MRSA Pneumonia with sepsis Acute exacerbation of chronic obstructive pulmonary disease Acute on chronic systolic congestive heart failure exacerbation Elevated troponins Acute anemia secondary to chronic blood loss and suspected lower GI bleed Chronic atrial fibrillation Diabetes mellitus insulin-dependent Acute on chronic hypoxic respiratory failure Obesity hypoventilation Bronchiectasis Chronic cough lasting longer than 6 months Flank hematoma Plan Patient can be cleared from a pulmonary standpoint for discharge. Medications have been reviewed and will be continued as ordered. Cardiology and ID is also on consult. Continues in contact per cautions for her MRSA in the sputum. Physical percussion is noted to be a failed therapy due to the patient being unable to tolerate positioning as well as the physical limitations of her body. The flutter therapy is ineffective as well due to the patient having an insufficient expiratory force. Both chest x-ray and CT results reviewed and are consistent with her bronchiectasis. Continue with supportive care. This patient would best benefit with an airway clearance vest therapy, which we will provide a prescription for her. Despite there evidence of flank hematoma the patient will continue with Coumadin for anticoagulation therapy per suggestion from Dr. García, due to her recent occlusion of her leg requiring surgery. INR monitored daily and treatment being adjusted by primary and vascular services. We will continue to monitor labs/results and adjust treatment as necessary. I performed an examination of the patient and discussed their management with the nurse practitioner. I have reviewed the nurse practitioner's note and agree with the documented findings and plan of care.
[2016-06-15 16:44] LABS: Glucose,Whole Blood 292 mg/dL (75-99)
[2016-06-15] MEDS: WARFARIN 1 MG TAB PO SCH (17:24)
--- NOTE | 2016-06-15 17:46 | P.PN ---
Subjective Principal diagnosis: Pneumonia with sepsis Patient is a 76-year-old female who was readmitted to [facility] due to fever cough and worsening shortness of breath She had evidence of pneumonia with sepsis, she also had evidence of anemia was hemoglobin of 7.8, evidence of acute congestive heart failure exacerbation, she has known history of atrial fibrillation. Today patient is complaining of abdominal pain, and constipation, she is feeling weak and she states she is not ready to be discharged at this time. patient is still complaining of abdominal pain and constipation Objective - Vital Signs Vital signs: Vital Signs Temp 97.3 F L 06/15/16 15:00 Pulse 66 06/15/16 16:41 Resp 16 06/15/16 16:41 BP 141/93 06/15/16 15:00 Pulse Ox 91 L 06/15/16 15:00 Intake & Output 06/14/16 06/15/16 06/15/16 18:59 06:59 18:59 Intake Total 200 360 Output Total 700 Balance -500 360 Weight 113 kg 122 kg 122 kg Intake: IV 160 Lactated Ringers 1,000 ml 160 @ 20 mls/hr IV .Q24H [facility] Rx#:[id number] Oral 200 200 Output: Urine 700 Other: Voiding Method Bedpan Bedpan Bedpan # Voids 3 3 5 - Exam In general patient is alert and oriented 3 in no apparent distress HEENT head normocephalic and atraumatic Neck is supple no JVD no goiter no lymphadenopathy Chest exam reveals coarse crackles in both lung olivares no wheezing Cardiac exam reveals regular heart sounds no murmurs Abdomen is soft with mild diffuse tenderness no organomegaly Extremity exam reveals no edema no cyanosis or clubbing - Labs CBC & Chem 7: 06/15/16 06:30 06/15/16 06:30 Labs: Abnormal Lab Results - Last 24 Hours (Table) 06/14/16 06/15/16 06/15/16 Range/Units 20:40 06:30 06:30 RBC 3.19 L (3.80-5.40) m/uL Hgb 8.9 L (11.4-16.0) gm/dL Hct 29.6 L (34.0-46.0) % MCHC 29.9 L (31.0-37.0) g/dL RDW 21.5 H (11.5-15.5) % PT 17.2 H (9.0-12.0) sec BUN (7-17) mg/dL Creatinine (0.52-1.04) mg/dL Glucose (74-99) mg/dL POC Glucose (mg/dL) 196 H (75-99) mg/dL Calcium (8.4-10.2) mg/dL Total Protein (6.3-8.2) g/dL Albumin (3.5-5.0) g/dL 06/15/16 06/15/16 06/15/16 Range/Units 06:30 06:49 11:31 RBC (3.80-5.40) m/uL Hgb (11.4-16.0) gm/dL Hct (34.0-46.0) % MCHC (31.0-37.0) g/dL RDW (11.5-15.5) % PT (9.0-12.0) sec BUN 42 H (7-17) mg/dL Creatinine 1.05 H (0.52-1.04) mg/dL Glucose 47 L* (74-99) mg/dL POC Glucose (mg/dL) 59 L 215 H (75-99) mg/dL Calcium 8.3 L (8.4-10.2) mg/dL Total Protein 5.3 L (6.3-8.2) g/dL Albumin 2.5 L (3.5-5.0) g/dL 06/15/16 Range/Units 16:41 RBC (3.80-5.40) m/uL Hgb (11.4-16.0) gm/dL Hct (34.0-46.0) % MCHC (31.0-37.0) g/dL RDW (11.5-15.5) % PT (9.0-12.0) sec BUN (7-17) mg/dL Creatinine (0.52-1.04) mg/dL Glucose (74-99) mg/dL POC Glucose (mg/dL) 292 H (75-99) mg/dL Calcium (8.4-10.2) mg/dL Total Protein (6.3-8.2) g/dL Albumin (3.5-5.0) g/dL Assessment and Plan Plan: 1. Pneumonia with MRSA: on to IV vancomycin patient improving, pulmonary and infectious disease following Patient is having difficulty bringing up sputum 2. Acute on chronic systolic CHF exacerbation. Most recent echo shows an EF of 40-45%. BNP elevated in the 3000's. Chest x-ray showing peripheral vascular congestion. Patient received multiple extra doses of IV Lasix due to worsening shortness of breath and O2 desaturations this morning 3. Cardiac pauses. Continue with telemetry monitoring. Cardiology has been consulted. 4. Insulin-dependent diabetes mellitus, A1c is 7.2 continue was Levemir and NovoLog continue was current insulin treatment 5. Elevated troponin with no chest pain. Cardiology following no intervention recommended at this time 6. Acute anemia secondary to chronic blood loss and suspected lower GI bleed. 7. Chronic atrial fibrillation maintained on Coumadin for anticoagulation. Monitor PT/INRs closely due to Coumadin and Levaquin interaction. 8. History of COPD: Continue with nebulizer treatments. 9. Continue with current Coumadin treatment 10. Abdominal pain, computed tomography scan of the abdomen and pelvis was done and revealed evidence of left flank hematoma Case was discussed was multiple specialist on the case, recommendation were to continue with Coumadin due to recent arterial blood clot on the left lower extremity requiring surgery. Continue monitoring hemoglobin and continue to keep INR in the lower therapeutic area will follow closely. Case was discussed in details with patient and family. 11. Poor nutritional status, on protein supplements
[2016-06-15] MEDS ORDERED: WARFARIN 2 MG TAB PO ONE (18:00)
[2016-06-15 21:25] LABS: Glucose,Whole Blood 319 mg/dL (75-99)
[2016-06-15] MEDS: LOSARTAN 50 MG TAB PO SCH (21:33)
[2016-06-15] MEDS: MONTELUKAST 10 MG TAB PO SCH (21:33)
[2016-06-15] MEDS: PRAVASTATIN SODIUM 20 MG TAB PO SCH (21:33)
[2016-06-15] MEDS: POLYETHYLENE GLYCOL 3350 17 GM POWD.PACK PO SCH (21:34)
[2016-06-15] MEDS ORDERED: INSULIN LISPRO (humaLOG) 300 UNIT/3 ML VIAL SQ ONE (21:43)
--- NOTE | 2016-06-15 22:21 | P.PN ---
Subjective Principal diagnosis: Shortness of breath 76-year-old female who has an extensive hospitalization currently at 7 days of admission but actually it's been longer than that due to her short hiatus out of the hospital. She was deemed medically stable to be to leave the hospital to attend her 's this occurred while she has been so ill. The patient was admitted with severe shortness of breath from the extended care facility she was being cared for after her gastrointestinal bleeding and worsening of her underlying pulmonary disease. The patient does have severe underlying pulmonary disease and wears oxygen at all times and does use a CPAP at night because of her sleep apnea. Recently this has definitely been worse and because of concerns to ongoing pneumonia the infectious diseases consultation was requested This patient relates she just feeling slightly better than when she was first admitted. She was having difficulties that time also with her lower extremity and the left. She was seen by vascular surgery and a large clot was noted and a thrombectomy , endarterectomy and patch angioplasty was performed of the left arterial system, large clot was seen. Patient relates that her leg continues to feel okay. She is less short of breath. She did have bronchoscopy. Evidence of influenza B was found. Also evidence of MRSA as well as Stenotrophomonas maltophilia. She is now completed her course of Tamiflu. Is being treated with vancomycin and Bactrim for the isolate pathogens. She is feeling better. Appetite is still poor but is using some of her lunch today. She is encouraged to eat as much of the protein as she can Objective - Vital Signs Vital signs: Vital Signs Temp 97.3 F L 06/15/16 15:00 Pulse 80 06/15/16 21:05 Resp 16 06/15/16 16:41 BP 141/93 06/15/16 15:00 Pulse Ox 91 L 06/15/16 15:00 Intake & Output 06/15/16 06/15/16 06/16/16 06:59 18:59 06:59 Intake Total 360 Balance 360 Weight 122 kg 122 kg Intake: IV 160 Lactated Ringers 1,000 ml 160 @ 20 mls/hr IV .Q24H [facility] Rx#:[id number] Oral 200 Other: Voiding Method Bedpan Bedpan Bedpan # Voids 3 5 1 - Exam 76-year-old woman who relates she is feeling less short of breath but appears to still be short of breath HEENT: Anicteric conjunctiva are pink and moist nasal mucosa grossly intact without significant lesions, there is no thrush. Worn dentition Neck: The neck is supple without significant lymphadenopathy or thyromegaly. Lungs: Symmetrical air entry is noted. Wheezes throughout the lung olivares are noted. Bibasilar crackles are heard right greater than left no dullness is noted minimal egophony to the right base is noted Heart: Regular rate and rhythm with an audible S1-S2, no S3 no S4. There is no significant murmur click or rub, PMI was nondisplaced. Abdomen: Obese, Positive bowel sounds soft and nontender without palpable masses or organomegaly. There was no guarding or rebound. The left lateral flank with hematomas been present is less tender. Extremities: The upper and lower extremity is have some generalized edema. However no open ulcerations are seen. The entry site for the thrombectomy is without bleeding drainage or tenderness Neuro: Awake alert oriented to person place and time. There are no acute new gross focal sensory motor deficits. She has significant generalized weakness though - Labs CBC & Chem 7: 06/15/16 06:30 06/15/16 06:30 Labs: Abnormal Lab Results - Last 24 Hours (Table) 06/15/16 06/15/16 06/15/16 Range/Units 06:30 06:30 06:30 RBC 3.19 L (3.80-5.40) m/uL Hgb 8.9 L (11.4-16.0) gm/dL Hct 29.6 L (34.0-46.0) % MCHC 29.9 L (31.0-37.0) g/dL RDW 21.5 H (11.5-15.5) % PT 17.2 H (9.0-12.0) sec BUN 42 H (7-17) mg/dL Creatinine 1.05 H (0.52-1.04) mg/dL Glucose 47 L* (74-99) mg/dL POC Glucose (mg/dL) (75-99) mg/dL Calcium 8.3 L (8.4-10.2) mg/dL Total Protein 5.3 L (6.3-8.2) g/dL Albumin 2.5 L (3.5-5.0) g/dL 06/15/16 06/15/16 06/15/16 Range/Units 06:49 11:31 16:41 RBC (3.80-5.40) m/uL Hgb (11.4-16.0) gm/dL Hct (34.0-46.0) % MCHC (31.0-37.0) g/dL RDW (11.5-15.5) % PT (9.0-12.0) sec BUN (7-17) mg/dL Creatinine (0.52-1.04) mg/dL Glucose (74-99) mg/dL POC Glucose (mg/dL) 59 L 215 H 292 H (75-99) mg/dL Calcium (8.4-10.2) mg/dL Total Protein (6.3-8.2) g/dL Albumin (3.5-5.0) g/dL 06/15/16 Range/Units 21:17 RBC (3.80-5.40) m/uL Hgb (11.4-16.0) gm/dL Hct (34.0-46.0) % MCHC (31.0-37.0) g/dL RDW (11.5-15.5) % PT (9.0-12.0) sec BUN (7-17) mg/dL Creatinine (0.52-1.04) mg/dL Glucose (74-99) mg/dL POC Glucose (mg/dL) 319 H (75-99) mg/dL Calcium (8.4-10.2) mg/dL Total Protein (6.3-8.2) g/dL Albumin (3.5-5.0) g/dL Laboratory Results WBC 9.7 k/uL (3.8-10.6) 06/15/16 06:30 RBC 3.19 m/uL (3.80-5.40) L 06/15/16 06:30 Hgb 8.9 gm/dL (11.4-16.0) L 06/15/16 06:30 Hct 29.6 % (34.0-46.0) L 06/15/16 06:30 MCV 92.7 fL (80.0-100.0) 06/15/16 06:30 MCH 27.7 pg (25.0-35.0) 06/15/16 06:30 MCHC 29.9 g/dL (31.0-37.0) L 06/15/16 06:30 RDW 21.5 % (11.5-15.5) H 06/15/16 06:30 Plt Count 215 k/uL (150-450) 06/15/16 06:30 Neutrophils % 74 % 06/15/16 06:30 Neutrophils % (Manual) 78.5 % 05/31/16 06:08 Lymphocytes % 16 % 06/15/16 06:30 Lymphocytes % (Manual) 13.5 % 05/31/16 06:08 Monocytes % 8 % 06/15/16 06:30 Monocytes % (Manual) 4.5 % 05/31/16 06:08 Eosinophils % 0 % 06/15/16 06:30 Eosinophils % (Manual) 0.5 % 05/31/16 06:08 Basophils % 0 % 06/15/16 06:30 Metamyelocytes % 2.0 % 05/31/16 06:08 Myelocytes % 1.0 % 05/31/16 06:08 Neutrophils # 7.2 k/uL (1.3-7.7) 06/15/16 06:30 Neutrophils # (Manual) 8.8 k/uL (1.3-7.7) H 05/31/16 06:08 Lymphocytes # 1.5 k/uL (1.0-4.8) 06/15/16 06:30 Lymphocytes # (Manual) 1.5 k/uL (1.0-4.8) 05/31/16 06:08 Monocytes # 0.7 k/uL (0-1.0) 06/15/16 06:30 Monocytes # (Manual) 0.5 k/uL (0-1.0) 05/31/16 06:08 Eosinophils # 0.0 k/uL (0-0.7) 06/15/16 06:30 Eosinophils # (Manual) 0.1 k/uL (0-0.7) 05/31/16 06:08 Basophils # 0.0 k/uL (0-0.2) 06/15/16 06:30 Nucleated RBCs 0 /100 WBC (0-0) 05/31/16 06:08 Manual Slide Review Performed 05/31/16 06:08 Hypochromasia Marked 06/15/16 06:30 Poikilocytosis Slight 06/13/16 11:20 Anisocytosis Moderate 06/15/16 06:30 Macrocytosis Slight 06/15/16 06:30 PT 17.2 sec (9.0-12.0) H 06/15/16 06:30 INR 1.8 (<1.1) 06/15/16 06:30 APTT 27.1 sec (22.0-30.0) 05/19/16 10:05 Sodium 140 mmol/L (137-145) 06/15/16 06:30 Potassium 4.6 mmol/L (3.5-5.1) 06/15/16 06:30 Chloride 104 mmol/L (98-107) 06/15/16 06:30 Carbon Dioxide 30 mmol/L (22-30) 06/15/16 06:30 Anion Gap 6 mmol/L 06/15/16 06:30 BUN 42 mg/dL (7-17) H 06/15/16 06:30 Creatinine 1.05 mg/dL (0.52-1.04) H 06/15/16 06:30 Est GFR (MDRD) Af Amer >60 (>60 ml/min/1.73 sqM) 06/15/16 06:30 Est GFR (MDRD) Non-Af 51 (>60 ml/min/1.73 sqM) 06/15/16 06:30 Glucose 47 mg/dL (74-99) L* 06/15/16 06:30 POC Glucose (mg/dL) 319 mg/dL (75-99) H 06/15/16 21:17 POC Glu [employer] RAJESH Audelia Roldan 06/15/16 21:[address] Glu mg/dL 166 mg/dL 05/23/16 07:03 Hemoglobin A1c 7.4 % (4.2-6.1) H 05/23/16 07:03 Plasma Lactic Acid Good 1.4 mmol/L (0.7-2.0) 05/19/16 13:51 Calcium 8.3 mg/dL (8.4-10.2) L 06/15/16 06:30 Phosphorus 4.0 mg/dL (2.5-4.5) 06/02/16 13:22 Magnesium 1.7 mg/dL (1.6-2.3) 06/02/16 13:22 Iron 29 ug/dL (37-170) L 06/03/16 05:50 TIBC 238 ug/dL (265-497) L 06/03/16 05:50 % Saturation 12.2 % (20-50) L 06/03/16 05:50 Ferritin 90 ng/mL (11-264) 06/03/16 05:50 Total Bilirubin 0.3 mg/dL (0.2-1.3) 06/15/16 06:30 AST 16 U/L (14-36) 06/15/16 06:30 ALT 29 U/L (9-52) 06/15/16 06:30 Alkaline Phosphatase 43 U/L (38-126) 06/15/16 06:30 Total Creatine Kinase <20 U/L (30-135) L 05/19/16 10:05 CK-MB (CK-2) <0.2 ng/mL (0.0-2.4) 05/19/16 10:05 CK-MB (CK-2) Rel Index 05/19/16 10:05 Troponin I 0.071 ng/mL (0.000-0.034) H* 05/19/16 10:05 NT-Pro-B Natriuret Pep 3920 pg/mL 05/20/16 09:00 Total Protein 5.3 g/dL (6.3-8.2) L 06/15/16 06:30 Albumin 2.5 g/dL (3.5-5.0) L 06/15/16 06:30 Amylase 40 U/L (30-110) 06/12/16 12:00 Lipase 15 U/L (23-300) L 06/12/16 12:00 TSH 2.550 mIU/L (0.465-4.680) 05/21/16 06:30 Free T4 0.76 ng/dL (0.78-2.19) L 05/21/16 06:30 Urine Color Light Yellow 05/19/16 10:25 Urine Appearance Clear (Clear) 05/19/16 10:25 Urine pH 6.5 (5.0-8.0) 05/19/16 10:25 Ur Specific Slater 1.011 (1.001-1.035) 05/19/16 10:25 Urine Protein Trace (Negative) H 05/19/16 10:25 Urine Glucose (UA) Negative (Negative) 05/19/16 10:25 Urine Ketones Negative (Negative) 05/19/16 10:25 Urine Blood Negative (Negative) 05/19/16 10:25 Urine Nitrite Negative (Negative) 05/19/16 10:25 Urine Bilirubin Negative (Negative) 05/19/16 10:25 Urine Urobilinogen <2.0 mg/dL (<2.0) 05/19/16 10:25 Ur Leukocyte Esterase Negative (Negative) 05/19/16 10:25 Vancomycin Trough 13.8 ug/mL 06/15/16 14:55 Random Vancomycin 19.6 ug/mL 06/05/16 08:11 Influenza Type A RNA Not Detected (Not Detectd) 05/19/16 10:05 Influenza Type B (PCR) Not Detected (Not Detectd) 05/19/16 10:05 Virus Source See Below 06/02/16 14:30 Viral Test See Below H 06/02/16 14:30 Virus Analysis Interp See Below 06/02/16 14:30 Miscellaneous Test Legionella, PCR 06/02/16 15:30 Misc Test Result See comment 06/02/16 15:30 Blood Type A Positive 05/23/16 09:33 Blood Type Recheck No 05/23/16 09:33 Antibody Screen NEGATIVE 05/23/16 09:33 Crossmatch See Detail 05/23/16 09:33 Spec Expiration Date 05/26/2016 - 2333 05/23/16 09:33 Microbiology 06/02/16 14:30 Bronchial Washings - Right Fungal Culture - Preliminary Gabriela albicans 06/02/16 14:30 Bronchial Washings - Right Gram Stain - Final 06/02/16 14:30 Bronchial Washings - Right Bronchial Washings Culture - Final Methicillin resist S. aureus Stenotrophomonas maltophilia 06/02/16 14:30 Bronchial Washings - Right Acid Fast Bacilli Smear - Final 06/02/16 14:30 Bronchial Washings - Right Acid Fast Bacilli Culture - Preliminary 05/30/16 00:30 Groin Anaerobic Culture - Final 05/30/16 00:30 Groin Gram Stain - Final 05/30/16 00:30 Groin Wound Culture - Final Methicillin resist S. aureus 05/30/16 01:40 Sputum Gram Stain - Final 05/30/16 01:40 Sputum Sputum Culture - Final Methicillin resist S. aureus 05/21/16 12:55 Blood Blood Culture - Final No Growth after 144 hours 05/19/16 10:05 Blood Blood Culture - Final No Growth after 144 hours Assessment and Plan (1) MRSA pneumonia Narrative/Plan: 76-year-old female who has multiple medical troubles occluding underlying significant cardiovascular disease, chronic pulmonary disease with oxygen dependence as well as sleep apnea presents to Hospital profoundly ill from the extended care facility. Apparently hospitalized for she had difficulties with gastrointestinal bleeding. During this stay she's had difficulties with congestive heart failure, exacerbation of COPD, extensive thrombus to the left leg requiring thrombectomy and endarterectomy. Patient relates is feeling just slightly better today. Review of the previous culture reveals evidence she does have evidence of the sputum culture with evidence of MRSA present. It does appear to be levofloxacin resistant. She was initiated vancomycin therapy. Is now having improvement within the last day. Vancomycin therapy will continue. Likely would treat her for the next 14 days. We'll request her vascular surgeon for IV access, or PICC line if he agrees. We need to have her INR closer to 2 We'll monitor response to current antibiotic therapy. We'll likely need to complete a course of this time of her transfer [facility]. A bronchoscopy was performed and is allowed her to have an improvement by pulmonary toileting. As noted influenza B was found she's now completed her 5 day course of Tamiflu. We will plan on continuing isolation through at least Tuesday hopefully she'll be transferred at that time. As far as the MRSA and stenotrophomonas maltophilia. Continue vancomycin and Bactrim at this time. Plan 14 days. Monitor her INR closely The pneumocystis and Legionella testing is negative. Her creatinine is stable at this time. The patient did have evidence of the hematoma the abdominal wall. She's had a bowel movement is feeling considerably better. She is not having significant discomfort related to the hematoma. Hemoglobin is stable at this time. Would avoid IV iron therapy while she is being treated for her pneumonia. Status: Acute (2) Chronic a-fib Status: Acute (3) Acute blood loss anemia Status: Acute (4) Leukocytosis Status: Acute
[2016-06-16 07:33] LABS: Glucose,Whole Blood 234 mg/dL (75-99)
[2016-06-16] MEDS: INSULIN DETEMIR 100 UNIT/ML 10 ML VIAL SQ SCH ×2 (07:58→21:28)
[2016-06-16] MEDS: INSULIN LISPRO (humaLOG) 300 UNIT/3 ML VIAL SQ SCH ×4 (07:58→22:23)
[2016-06-16] MEDS: DOCUSATE 100 MG CAP PO SCH ×2 (07:59→21:28)
[2016-06-16] MEDS: ALPRAZolam 0.25 MG TAB PO SCH ×2 (07:59→21:28)
[2016-06-16] MEDS: HYDROcodone/APAP 10-325MG 1 EACH TAB PO PRN ×3 (07:59→19:11)
[2016-06-16] MEDS: FUROSEMIDE 40 MG TAB PO SCH ×2 (08:00→15:18)
[2016-06-16] MEDS: SULFAMETHOX-TMP 400-80MG 1 EACH TAB PO SCH ×2 (08:00→21:30)
[2016-06-16] MEDS: PANTOPRAZOLE 40 MG TABLET PO SCH (08:00)
[2016-06-16] MEDS: DIGOXIN 125 MCG TAB PO SCH (08:01)
[2016-06-16] MEDS: guaiFENesin 600 MG TABLET.ER PO SCH ×2 (08:01→21:29)
[2016-06-16] MEDS: METOPROLOL SUCCINATE (ER) 100 MG TAB.ER.24H PO SCH ×2 (08:01→21:30)
[2016-06-16] MEDS: FERROUS SULFATE 325 MG TAB PO SCH ×2 (08:01→21:29)
[2016-06-16] MEDS: predniSONE 20 MG TAB PO SCH (08:02)
[2016-06-16] MEDS: IPRATROPIUM-ALBUTEROL 3 ML NEB INHALATION SCH ×4 (08:37→20:36)
[2016-06-16] MEDS: BUDESONIDE 1 MG/2 ML NEBU INHALATION SCH ×2 (08:37→20:36)
[2016-06-16 10:15] LABS: Anisocytosis Moderate; Basophils % (A) 0 %; CH 26.8; CHCM 28.3; Eosinophils % (A) 0 %; HCT 28.5 % (34.0-46.0); HDW 3.13; HGB 8.3 gm/dL (11.4-16.0); Hypochromasia Marked; Luc # (Auto) 0.09; Luc % (Auto) 1; Lymphocytes # (A) 0.6 k/uL (1.0-4.8); Lymphocytes % (A) 6 %; MCH 27.4 pg (25.0-35.0); MCV 94.5 fL (80.0-100.0); Macrocytosis Slight; Mean Platelet Volume 7.6; Monocytes # (A) 0.6 k/uL (0-1.0); Monocytes % (A) 6 %; Neutrophils # (A) 9.7 k/uL (1.3-7.7); Neutrophils % (A) 88 %; RBC 3.02 m/uL (3.80-5.40); RDW 21.4 % (11.5-15.5); WBC (Perox) 11.32
[2016-06-16 10:18] LABS: INR 1.5 (<1.1); Prothrombin Time 14.5 sec (9.0-12.0)
[2016-06-16 10:19] LABS: ALT 24 U/L (9-52); AST 16 U/L (14-36); Alkaline Phosphatase 45 U/L (38-126); Anion Gap 8 mmol/L; Blood Urea Nitrogen 39 mg/dL (7-17); Calcium 8.3 mg/dL (8.4-10.2); Carbon Dioxide 24 mmol/L (22-30); Chloride 103 mmol/L (98-107); Glucose 223 mg/dL (74-99); Non-African American GFR(MDRD) >60 (>60 ml/min/1.73 sqM); Sodium 135 mmol/L (137-145); Total Bilirubin 0.4 mg/dL (0.2-1.3); Total Protein 5.4 g/dL (6.3-8.2)
[2016-06-16] MEDS ORDERED: ALTEPLASE 2 MG VIAL (CATHFLO) IV STA (10:59)
[2016-06-16] MEDS: MAG HYDROX/AL HYDROX/SIMETH 30 ML CUP PO PRN ×2 (11:24→19:12)
[2016-06-16] MEDS: LACTATED RINGERS 1,000 ML IV SCH (11:53)
[2016-06-16 12:03] LABS: Glucose,Whole Blood 199 mg/dL (75-99)
[2016-06-16] MEDS: VANCOMYCIN 1,250 MG in SODIUM CHLORIDE 0.9% 250 ML IVPB SCH (13:20)
--- NOTE | 2016-06-16 15:52 | PN ---
DATE OF SERVICE: 06/16/2016 Ms. Bui is sitting upright on the bed, breathing comfortably. No obvious distress present. She is on supplemental oxygen. She has been using BiPAP off and on. Her hemodynamic status is stable. Blood pressure is 134/58, respiratory rate 18, pulse 80, temperature 97, sating 92% on 3 liters. HEENT: Unremarkable. NECK: Supple. LUNGS: Good air entry bilaterally without significant rales, rhonchi or rub. HEART: Regular rate and rhythm. ABDOMEN: Soft. NEUROLOGICAL EXAMINATION: Awake and alert. Infectious disease service has been following, given that patient has a graft and has been continued on Coumadin with adjustment of the doses, the patient has significant thrombocytopenia as well. IMPRESSION: 1. Methicillin-resistant Staphylococcus aureus pneumonia on IV vancomycin. 2. Acute on chronic congestive heart failure related to chronic systolic heart failure with baseline ejection fraction of 40%. 3. Uncontrolled diabetes mellitus. 4. Acute on chronic anemia. 5. Chronic atrial fibrillation. 6. Left flank hematoma. 7. Protein calorie malnourishment. PLAN: As above. Continue antibiotics and supportive care. Monitor Coags very closely. Will follow.
[2016-06-16 16:48] LABS: Glucose,Whole Blood 332 mg/dL (75-99)
[2016-06-16] MEDS ORDERED: WARFARIN 2 MG TAB PO ONE (18:00)
[2016-06-16] MEDS ORDERED: INSULIN LISPRO (humaLOG) 300 UNIT/3 ML VIAL SQ ONE (18:28)
--- NOTE | 2016-06-16 18:35 | P.PN ---
Subjective Principal diagnosis: Pneumonia with sepsis Patient is a 76-year-old female who was readmitted to [facility] due to fever cough and worsening shortness of breath She had evidence of pneumonia with sepsis, she also had evidence of anemia was hemoglobin of 7.8, evidence of acute congestive heart failure exacerbation, she has known history of atrial fibrillation. Today patient is complaining of abdominal pain, and constipation, she is feeling weak and she states she is not ready to be discharged at this time. patient is still complaining of abdominal pain and constipation Objective - Vital Signs Vital signs: Vital Signs Temp 98.6 F 06/16/16 15:00 Pulse 72 06/16/16 16:23 Resp 18 06/16/16 15:00 BP 150/62 06/16/16 15:00 Pulse Ox 91 L 06/16/16 15:00 Intake & Output 06/15/16 06/16/16 06/16/16 18:59 06:59 18:59 Intake Total 360 100 490 Balance 360 100 490 Weight 122 kg 122 kg Intake: IV 160 Lactated Ringers 1,000 ml 160 @ 20 mls/hr IV .Q24H [facility] Rx#:[id number] Intake, IV Titration 250 Amount Vancomycin 1,250 mg In 250 Sodium Chloride 0.9% 250 ml @ 125 mls/hr IVPB Q24H [facility] Rx#:[id number] Oral 200 100 240 Other: Voiding Method Bedpan Bedpan Bedpan # Voids 5 1 1 - Exam In general patient is alert and oriented 3 in no apparent distress HEENT head normocephalic and atraumatic Neck is supple no JVD no goiter no lymphadenopathy Chest exam reveals coarse crackles in both lung olivares no wheezing Cardiac exam reveals regular heart sounds no murmurs Abdomen is soft with mild diffuse tenderness no organomegaly Extremity exam reveals no edema no cyanosis or clubbing - Labs CBC & Chem 7: 06/16/16 09:46 06/16/16 09:46 Labs: Abnormal Lab Results - Last 24 Hours (Table) 06/15/16 06/16/16 06/16/16 Range/Units 21:17 07:20 09:46 WBC 11.0 H (3.8-10.6) k/uL RBC 3.02 L (3.80-5.40) m/uL Hgb 8.3 L (11.4-16.0) gm/dL Hct 28.5 L (34.0-46.0) % MCHC 29.0 L (31.0-37.0) g/dL RDW 21.4 H (11.5-15.5) % Neutrophils # 9.7 H (1.3-7.7) k/uL Lymphocytes # 0.6 L (1.0-4.8) k/uL PT (9.0-12.0) sec Sodium (137-145) mmol/L BUN (7-17) mg/dL Glucose (74-99) mg/dL POC Glucose (mg/dL) 319 H 234 H (75-99) mg/dL Calcium (8.4-10.2) mg/dL Total Protein (6.3-8.2) g/dL Albumin (3.5-5.0) g/dL 06/16/16 06/16/16 06/16/16 Range/Units 09:46 09:46 11:58 WBC (3.8-10.6) k/uL RBC (3.80-5.40) m/uL Hgb (11.4-16.0) gm/dL Hct (34.0-46.0) % MCHC (31.0-37.0) g/dL RDW (11.5-15.5) % Neutrophils # (1.3-7.7) k/uL Lymphocytes # (1.0-4.8) k/uL PT 14.5 H (9.0-12.0) sec Sodium 135 L (137-145) mmol/L BUN 39 H (7-17) mg/dL Glucose 223 H (74-99) mg/dL POC Glucose (mg/dL) 199 H (75-99) mg/dL Calcium 8.3 L (8.4-10.2) mg/dL Total Protein 5.4 L (6.3-8.2) g/dL Albumin 2.5 L (3.5-5.0) g/dL 06/16/16 Range/Units 16:44 WBC (3.8-10.6) k/uL RBC (3.80-5.40) m/uL Hgb (11.4-16.0) gm/dL Hct (34.0-46.0) % MCHC (31.0-37.0) g/dL RDW (11.5-15.5) % Neutrophils # (1.3-7.7) k/uL Lymphocytes # (1.0-4.8) k/uL PT (9.0-12.0) sec Sodium (137-145) mmol/L BUN (7-17) mg/dL Glucose (74-99) mg/dL POC Glucose (mg/dL) 332 H (75-99) mg/dL Calcium (8.4-10.2) mg/dL Total Protein (6.3-8.2) g/dL Albumin (3.5-5.0) g/dL Assessment and Plan Plan: 1. Pneumonia with MRSA: on to IV vancomycin patient improving, pulmonary and infectious disease following Patient is having difficulty bringing up sputum 2. Acute on chronic systolic CHF exacerbation. Most recent echo shows an EF of 40-45%. BNP elevated in the 3000's. Chest x-ray showing peripheral vascular congestion. Patient received multiple extra doses of IV Lasix due to worsening shortness of breath and O2 desaturations this morning 3. Cardiac pauses. Continue with telemetry monitoring. Cardiology has been consulted. 4. Insulin-dependent diabetes mellitus, A1c is 7.2 continue was Levemir and NovoLog continue was current insulin treatment 5. Elevated troponin with no chest pain. Cardiology following no intervention recommended at this time 6. Acute anemia secondary to chronic blood loss and suspected lower GI bleed. 7. Chronic atrial fibrillation maintained on Coumadin for anticoagulation. Monitor PT/INRs closely due to Coumadin and Levaquin interaction. 8. History of COPD: Continue with nebulizer treatments. 9. Continue with current Coumadin treatment 10. Abdominal pain, computed tomography scan of the abdomen and pelvis was done and revealed evidence of left flank hematoma Case was discussed was multiple specialist on the case, recommendation were to continue with Coumadin due to recent arterial blood clot on the left lower extremity requiring surgery. Continue monitoring hemoglobin and continue to keep INR in the lower therapeutic area will follow closely. Case was discussed in details with patient and family. 11. Poor nutritional status, on protein supplements continue to monitor closely possible transfer to a [facility] on Tuesday if stable
[2016-06-16] MEDS: POLYETHYLENE GLYCOL 3350 17 GM POWD.PACK PO SCH (21:30)
[2016-06-16] MEDS: LOSARTAN 50 MG TAB PO SCH (21:30)
[2016-06-16] MEDS: PRAVASTATIN SODIUM 20 MG TAB PO SCH (21:30)
[2016-06-16] MEDS: MONTELUKAST 10 MG TAB PO SCH (21:30)
[2016-06-16 22:21] LABS: Glucose,Whole Blood 306 mg/dL (75-99)
--- NOTE | 2016-06-16 23:03 | P.PN ---
Subjective Principal diagnosis: Shortness of breath 76-year-old female who has an extensive hospitalization currently at 7 days of admission but actually it's been longer than that due to her short hiatus out of the hospital. She was deemed medically stable to be to leave the hospital to attend her 's this occurred while she has been so ill. The patient was admitted with severe shortness of breath from the extended care facility she was being cared for after her gastrointestinal bleeding and worsening of her underlying pulmonary disease. The patient does have severe underlying pulmonary disease and wears oxygen at all times and does use a CPAP at night because of her sleep apnea. Recently this has definitely been worse and because of concerns to ongoing pneumonia the infectious diseases consultation was requested This patient relates she just feeling slightly better than when she was first admitted. She was having difficulties that time also with her lower extremity and the left. She was seen by vascular surgery and a large clot was noted and a thrombectomy , endarterectomy and patch angioplasty was performed of the left arterial system, large clot was seen. Patient relates that her leg continues to feel okay. She is less short of breath. She did have bronchoscopy. Evidence of influenza B was found. Also evidence of MRSA as well as Stenotrophomonas maltophilia. She is now completed her course of Tamiflu. Is being treated with vancomycin and Bactrim for the isolate pathogens. She is feeling better. Appetite is improving. She is encouraged to eat as much of the protein as she can Objective - Vital Signs Vital signs: Vital Signs Temp 98.6 F 06/16/16 15:00 Pulse 76 06/16/16 20:56 Resp 18 06/16/16 16:00 BP 150/62 06/16/16 15:00 Pulse Ox 91 L 06/16/16 15:00 Intake & Output 06/16/16 06/16/16 06/17/16 06:59 18:59 06:59 Intake Total 100 490 Output Total 350 Balance 100 140 Weight 122 kg 122 kg Intake: Intake, IV Titration 250 Amount Vancomycin 1,250 mg In 250 Sodium Chloride 0.9% 250 ml @ 125 mls/hr IVPB Q24H [facility] Rx#:[id number] Oral 100 240 Output: Urine 350 Other: Voiding Method Bedpan Bedpan # Voids 1 1 - Exam 76-year-old woman who relates she is feeling less short of breath but appears to still be short of breath HEENT: Anicteric conjunctiva are pink and moist nasal mucosa grossly intact without significant lesions, there is no thrush. Worn dentition Neck: The neck is supple without significant lymphadenopathy or thyromegaly. Lungs: Symmetrical air entry is noted. Wheezes throughout the lung olivares are noted. Bibasilar crackles are heard right greater than left no dullness is noted minimal egophony to the right base is noted Heart: Regular rate and rhythm with an audible S1-S2, no S3 no S4. There is no significant murmur click or rub, PMI was nondisplaced. Abdomen: Obese, Positive bowel sounds soft and nontender without palpable masses or organomegaly. There was no guarding or rebound. The left lateral flank with hematomas been present is less tender. Extremities: The upper and lower extremity is have some generalized edema. However no open ulcerations are seen. The entry site for the thrombectomy is without bleeding drainage or tenderness Neuro: Awake alert oriented to person place and time. There are no acute new gross focal sensory motor deficits. She has significant generalized weakness though - Labs CBC & Chem 7: 06/16/16 09:46 06/16/16 09:46 Labs: Abnormal Lab Results - Last 24 Hours (Table) 06/16/16 06/16/16 06/16/16 Range/Units 07:20 09:46 09:46 WBC 11.0 H (3.8-10.6) k/uL RBC 3.02 L (3.80-5.40) m/uL Hgb 8.3 L (11.4-16.0) gm/dL Hct 28.5 L (34.0-46.0) % MCHC 29.0 L (31.0-37.0) g/dL RDW 21.4 H (11.5-15.5) % Neutrophils # 9.7 H (1.3-7.7) k/uL Lymphocytes # 0.6 L (1.0-4.8) k/uL PT (9.0-12.0) sec Sodium 135 L (137-145) mmol/L BUN 39 H (7-17) mg/dL Glucose 223 H (74-99) mg/dL POC Glucose (mg/dL) 234 H (75-99) mg/dL Calcium 8.3 L (8.4-10.2) mg/dL Total Protein 5.4 L (6.3-8.2) g/dL Albumin 2.5 L (3.5-5.0) g/dL 06/16/16 06/16/16 06/16/16 Range/Units 09:46 11:58 16:44 WBC (3.8-10.6) k/uL RBC (3.80-5.40) m/uL Hgb (11.4-16.0) gm/dL Hct (34.0-46.0) % MCHC (31.0-37.0) g/dL RDW (11.5-15.5) % Neutrophils # (1.3-7.7) k/uL Lymphocytes # (1.0-4.8) k/uL PT 14.5 H (9.0-12.0) sec Sodium (137-145) mmol/L BUN (7-17) mg/dL Glucose (74-99) mg/dL POC Glucose (mg/dL) 199 H 332 H (75-99) mg/dL Calcium (8.4-10.2) mg/dL Total Protein (6.3-8.2) g/dL Albumin (3.5-5.0) g/dL 06/16/16 Range/Units 22:18 WBC (3.8-10.6) k/uL RBC (3.80-5.40) m/uL Hgb (11.4-16.0) gm/dL Hct (34.0-46.0) % MCHC (31.0-37.0) g/dL RDW (11.5-15.5) % Neutrophils # (1.3-7.7) k/uL Lymphocytes # (1.0-4.8) k/uL PT (9.0-12.0) sec Sodium (137-145) mmol/L BUN (7-17) mg/dL Glucose (74-99) mg/dL POC Glucose (mg/dL) 306 H (75-99) mg/dL Calcium (8.4-10.2) mg/dL Total Protein (6.3-8.2) g/dL Albumin (3.5-5.0) g/dL Laboratory Results WBC 11.0 k/uL (3.8-10.6) H 04/26/17 09:46 RBC 3.02 m/uL (3.80-5.40) L 06/16/16 09:46 Hgb 8.3 gm/dL (11.4-16.0) L 06/16/16 09:46 Hct 28.5 % (34.0-46.0) L 06/16/16 09:46 MCV 94.5 fL (80.0-100.0) 06/16/16 09:46 MCH 27.4 pg (25.0-35.0) 06/16/16 09:46 MCHC 29.0 g/dL (31.0-37.0) L 06/16/16 09:46 RDW 21.4 % (11.5-15.5) H 06/16/16 09:46 Plt Count 182 k/uL (150-450) 06/16/16 09:46 Neutrophils % 88 % 06/16/16 09:46 Neutrophils % (Manual) 78.5 % 05/31/16 06:08 Lymphocytes % 6 % 06/16/16 09:46 Lymphocytes % (Manual) 13.5 % 05/31/16 06:08 Monocytes % 6 % 06/16/16 09:46 Monocytes % (Manual) 4.5 % 05/31/16 06:08 Eosinophils % 0 % 06/16/16 09:46 Eosinophils % (Manual) 0.5 % 05/31/16 06:08 Basophils % 0 % 06/16/16 09:46 Metamyelocytes % 2.0 % 05/31/16 06:08 Myelocytes % 1.0 % 05/31/16 06:08 Neutrophils # 9.7 k/uL (1.3-7.7) H 06/16/16 09:46 Neutrophils # (Manual) 8.8 k/uL (1.3-7.7) H 05/31/16 06:08 Lymphocytes # 0.6 k/uL (1.0-4.8) L 06/16/16 09:46 Lymphocytes # (Manual) 1.5 k/uL (1.0-4.8) 05/31/16 06:08 Monocytes # 0.6 k/uL (0-1.0) 06/16/16 09:46 Monocytes # (Manual) 0.5 k/uL (0-1.0) 05/31/16 06:08 Eosinophils # 0.0 k/uL (0-0.7) 06/16/16 09:46 Eosinophils # (Manual) 0.1 k/uL (0-0.7) 05/31/16 06:08 Basophils # 0.0 k/uL (0-0.2) 06/16/16 09:46 Nucleated RBCs 0 /100 WBC (0-0) 05/31/16 06:08 Manual Slide Review Performed 05/31/16 06:08 Hypochromasia Marked 06/16/16 09:46 Poikilocytosis Slight 06/13/16 11:20 Anisocytosis Moderate 06/16/16 09:46 Macrocytosis Slight 06/16/16 09:46 PT 14.5 sec (9.0-12.0) H 06/16/16 09:46 INR 1.5 (<1.1) 06/16/16 09:46 APTT 27.1 sec (22.0-30.0) 05/19/16 10:05 Sodium 135 mmol/L (137-145) L 06/16/16 09:46 Potassium 5.0 mmol/L (3.5-5.1) 06/16/16 09:46 Chloride 103 mmol/L (98-107) 06/16/16 09:46 Carbon Dioxide 24 mmol/L (22-30) 06/16/16 09:46 Anion Gap 8 mmol/L 06/16/16 09:46 BUN 39 mg/dL (7-17) H 06/16/16 09:46 Creatinine 0.88 mg/dL (0.52-1.04) 06/16/16 09:46 Est GFR (MDRD) Af Amer >60 (>60 ml/min/1.73 sqM) 06/16/16 09:46 Est GFR (MDRD) Non-Af >60 (>60 ml/min/1.73 sqM) 06/16/16 09:46 Glucose 223 mg/dL (74-99) H 06/16/16 09:46 POC Glucose (mg/dL) 306 mg/dL (75-99) H 06/16/16 22:18 POC Glu [employer] RAJESH Angy Arnold 06/16/16 22:[address] Glu mg/dL 166 mg/dL 05/23/16 07:03 Hemoglobin A1c 7.4 % (4.2-6.1) H 05/23/16 07:03 Plasma Lactic Acid Good 1.4 mmol/L (0.7-2.0) 05/19/16 13:51 Calcium 8.3 mg/dL (8.4-10.2) L 06/16/16 09:46 Phosphorus 4.0 mg/dL (2.5-4.5) 06/02/16 13:22 Magnesium 1.7 mg/dL (1.6-2.3) 06/02/16 13:22 Iron 29 ug/dL (37-170) L 06/03/16 05:50 TIBC 238 ug/dL (265-497) L 06/03/16 05:50 % Saturation 12.2 % (20-50) L 06/03/16 05:50 Ferritin 90 ng/mL (11-264) 06/03/16 05:50 Total Bilirubin 0.4 mg/dL (0.2-1.3) 06/16/16 09:46 AST 16 U/L (14-36) 06/16/16 09:46 ALT 24 U/L (9-52) 06/16/16 09:46 Alkaline Phosphatase 45 U/L (38-126) 06/16/16 09:46 Total Creatine Kinase <20 U/L (30-135) L 05/19/16 10:05 CK-MB (CK-2) <0.2 ng/mL (0.0-2.4) 05/19/16 10:05 CK-MB (CK-2) Rel Index 05/19/16 10:05 Troponin I 0.071 ng/mL (0.000-0.034) H* 05/19/16 10:05 NT-Pro-B Natriuret Pep 3920 pg/mL 05/20/16 09:00 Total Protein 5.4 g/dL (6.3-8.2) L 06/16/16 09:46 Albumin 2.5 g/dL (3.5-5.0) L 06/16/16 09:46 Amylase 40 U/L (30-110) 06/12/16 12:00 Lipase 15 U/L (23-300) L 06/12/16 12:00 TSH 2.550 mIU/L (0.465-4.680) 05/21/16 06:30 Free T4 0.76 ng/dL (0.78-2.19) L 05/21/16 06:30 Urine Color Light Yellow 05/19/16 10:25 Urine Appearance Clear (Clear) 05/19/16 10:25 Urine pH 6.5 (5.0-8.0) 05/19/16 10:25 Ur Specific [place] 1.011 (1.001-1.035) 05/19/16 10:25 Urine Protein Trace (Negative) H 05/19/16 10:25 Urine Glucose (UA) Negative (Negative) 05/19/16 10:25 Urine Ketones Negative (Negative) 05/19/16 10:25 Urine Blood Negative (Negative) 05/19/16 10:25 Urine Nitrite Negative (Negative) 05/19/16 10:25 Urine Bilirubin Negative (Negative) 05/19/16 10:25 Urine Urobilinogen <2.0 mg/dL (<2.0) 05/19/16 10:25 Ur Leukocyte Esterase Negative (Negative) 05/19/16 10:25 Vancomycin Trough 13.8 ug/mL 06/15/16 14:55 Random Vancomycin 19.6 ug/mL 06/05/16 08:11 Influenza Type A RNA Not Detected (Not Detectd) 05/19/16 10:05 Influenza Type B (PCR) Not Detected (Not Detectd) 05/19/16 10:05 Virus Source See Below 06/02/16 14:30 Viral Test See Below H 06/02/16 14:30 Virus Analysis Interp See Below 06/02/16 14:30 Miscellaneous Test Legionella, PCR 06/02/16 15:30 Misc Test Result See comment 06/02/16 15:30 Blood Type A Positive 05/23/16 09:33 Blood Type Recheck No 05/23/16 09:33 Antibody Screen NEGATIVE 05/23/16 09:33 Crossmatch See Detail 05/23/16 09:33 Spec Expiration Date 05/26/2016 - 2333 05/23/16 09:33 Microbiology 06/02/16 14:30 Bronchial Washings - Right Fungal Culture - Preliminary Gabriela albicans 06/02/16 14:30 Bronchial Washings - Right Gram Stain - Final 06/02/16 14:30 Bronchial Washings - Right Bronchial Washings Culture - Final Methicillin resist S. aureus Stenotrophomonas maltophilia 06/02/16 14:30 Bronchial Washings - Right Acid Fast Bacilli Smear - Final 06/02/16 14:30 Bronchial Washings - Right Acid Fast Bacilli Culture - Preliminary 05/30/16 00:30 Groin Anaerobic Culture - Final 05/30/16 00:30 Groin Gram Stain - Final 05/30/16 00:30 Groin Wound Culture - Final Methicillin resist S. aureus 05/30/16 01:40 Sputum Gram Stain - Final 05/30/16 01:40 Sputum Sputum Culture - Final Methicillin resist S. aureus 05/21/16 12:55 Blood Blood Culture - Final No Growth after 144 hours 05/19/16 10:05 Blood Blood Culture - Final No Growth after 144 hours Assessment and Plan (1) MRSA pneumonia Narrative/Plan: 76-year-old female who has multiple medical troubles occluding underlying significant cardiovascular disease, chronic pulmonary disease with oxygen dependence as well as sleep apnea presents to Hospital profoundly ill from the extended care facility. Apparently hospitalized for she had difficulties with gastrointestinal bleeding. During this stay she's had difficulties with congestive heart failure, exacerbation of COPD, extensive thrombus to the left leg requiring thrombectomy and endarterectomy. Patient relates is feeling just slightly better today. Review of the previous culture reveals evidence she does have evidence of the sputum culture with evidence of MRSA present. It does appear to be levofloxacin resistant. She was initiated vancomycin therapy. Is now having improvement within the last day. Vancomycin therapy will continue. Likely would treat her for the next 14 days. We'll request her vascular surgeon for IV access, or PICC line if he agrees. We need to have her INR closer to 2 We'll monitor response to current antibiotic therapy. We'll likely need to complete a course of this time of her transfer back to [facility]. A bronchoscopy was performed and is allowed her to have an improvement by pulmonary toileting. As noted influenza B was found she's now completed her 5 day course of Tamiflu. We will plan on continuing isolation through at least Tuesday hopefully she'll be transferred at that time. As far as the MRSA and stenotrophomonas maltophilia. Continue vancomycin and Bactrim at this time. Plan 14 days. Monitor her INR closely The pneumocystis and Legionella testing is negative. Her creatinine is stable at this time. The patient did have evidence of the hematoma the abdominal wall. She's had a bowel movement is feeling considerably better. She is not having significant discomfort related to the hematoma. Hemoglobin is stable at this time. Would avoid IV iron therapy while she is being treated for her pneumonia. Status: Acute (2) Chronic a-fib Status: Acute (3) Acute blood loss anemia Status: Acute (4) Leukocytosis Status: Acute
[2016-06-17 06:35] LABS: INR 1.4 (<1.1); Prothrombin Time 13.4 sec (9.0-12.0)
[2016-06-17 06:38] LABS: ALT 23 U/L (9-52); AST 18 U/L (14-36); Alkaline Phosphatase 50 U/L (38-126); Anion Gap 5 mmol/L; Blood Urea Nitrogen 45 mg/dL (7-17); Calcium 8.2 mg/dL (8.4-10.2); Carbon Dioxide 30 mmol/L (22-30); Chloride 103 mmol/L (98-107); Glucose 143 mg/dL (74-99); Non-African American GFR(MDRD) 54 (>60 ml/min/1.73 sqM); Potassium 4.8 mmol/L (3.5-5.1); Sodium 138 mmol/L (137-145); Total Bilirubin 0.3 mg/dL (0.2-1.3); Total Protein 5.3 g/dL (6.3-8.2)
[2016-06-17 06:50] LABS: Anisocytosis Moderate; Basophils % (A) 0 %; CH 27.2; CHCM 28.9; Eosinophils % (A) 0 %; HCT 28.1 % (34.0-46.0); HDW 3.07; HGB 8.2 gm/dL (11.4-16.0); Hypochromasia Marked; Luc # (Auto) 0.15; Luc % (Auto) 2; Lymphocytes # (A) 1.4 k/uL (1.0-4.8); Lymphocytes % (A) 14 %; MCH 27.4 pg (25.0-35.0); MCHC 29.1 g/dL (31.0-37.0); MCV 94.2 fL (80.0-100.0); Macrocytosis Slight; Mean Platelet Volume 8.1; Monocytes # (A) 0.8 k/uL (0-1.0); Monocytes % (A) 8 %; Neutrophils # (A) 7.4 k/uL (1.3-7.7); Neutrophils % (A) 76 %; RBC 2.98 m/uL (3.80-5.40); RDW 21.5 % (11.5-15.5); WBC 9.7 k/uL (3.8-10.6); WBC (Perox) 9.98
[2016-06-17 07:29] LABS: Glucose,Whole Blood 136 mg/dL (75-99)
[2016-06-17] MEDS: INSULIN DETEMIR 100 UNIT/ML 10 ML VIAL SQ SCH ×2 (07:47→21:48)
[2016-06-17] MEDS: predniSONE 20 MG TAB PO SCH (07:47)
[2016-06-17] MEDS: INSULIN LISPRO (humaLOG) 300 UNIT/3 ML VIAL SQ SCH ×4 (07:47→21:50)
[2016-06-17] MEDS: PANTOPRAZOLE 40 MG TABLET PO SCH (07:47)
[2016-06-17] MEDS: FERROUS SULFATE 325 MG TAB PO SCH ×2 (07:48→21:48)
[2016-06-17] MEDS: HYDROcodone/APAP 10-325MG 1 EACH TAB PO PRN ×4 (07:48→23:14)
[2016-06-17] MEDS: DOCUSATE 100 MG CAP PO SCH ×2 (07:48→21:48)
[2016-06-17] MEDS: FUROSEMIDE 40 MG TAB PO SCH ×2 (07:48→16:34)
[2016-06-17] MEDS: DIGOXIN 125 MCG TAB PO SCH (07:48)
[2016-06-17] MEDS: guaiFENesin 600 MG TABLET.ER PO SCH ×2 (07:49→21:48)
[2016-06-17] MEDS: METOPROLOL SUCCINATE (ER) 100 MG TAB.ER.24H PO SCH ×2 (07:49→21:49)
[2016-06-17] MEDS: SULFAMETHOX-TMP 400-80MG 1 EACH TAB PO SCH ×2 (07:50→21:49)
[2016-06-17] MEDS: ALPRAZolam 0.25 MG TAB PO SCH ×2 (07:57→21:48)
[2016-06-17] MEDS: IPRATROPIUM-ALBUTEROL 3 ML NEB INHALATION SCH ×4 (09:22→19:42)
[2016-06-17] MEDS: BUDESONIDE 1 MG/2 ML NEBU INHALATION SCH ×2 (09:22→19:42)
[2016-06-17] MEDS: LACTATED RINGERS 1,000 ML IV SCH (11:33)
[2016-06-17] MEDS: VANCOMYCIN 1,250 MG in SODIUM CHLORIDE 0.9% 250 ML IVPB SCH (11:33)
--- NOTE | 2016-06-17 11:52 | P.PN ---
Subjective Patient being treated for pneumonia with sepsis and CHF exacerbation. Patient also has a left groin seroma. Both sputum culture and wound culture growing MRSA. Currently on IV vancomycin. Had bronchoscopy during this admission. Per report showing influenza B positive. Patient started on Tamiflu. Bronchial washings growing MRSA and stenotrophomonas maltophilia. Patient's abdominal pain has improved. She has been having bowel movements. Computed tomography scan of the weekend had shown a left flank hematoma. Continue to monitor closely. Patient denies any left flank pain. Denies any chest pain or shortness of breath. Denies any nausea or vomiting. Denies any difficulty urinating. 06/17/2016 Patient reports feeling better today. She denies any chest pain or shortness breath. Denies abdominal pain. Reports having a bowel movement last night and this morning. Denies any nausea or vomiting. Denies any difficulty urinating Objective - Vital Signs Vital signs: Vital Signs Temp 98.1 F 06/17/16 07:00 Pulse 80 06/17/16 09:41 Resp 22 06/17/16 07:00 BP 159/64 06/17/16 07:00 Pulse Ox 92 L 06/17/16 07:00 Intake & Output 06/16/16 06/17/16 06/17/16 18:59 06:59 18:59 Intake Total 490 850 250 Output Total 350 Balance 140 850 250 Weight 122 kg 107.5 kg Intake: Intake, IV Titration 250 250 Amount Vancomycin 1,250 mg In 250 250 Sodium Chloride 0.9% 250 ml @ 125 mls/hr IVPB Q24H [facility] Rx#:[id number] Oral 240 850 Output: Urine 350 Other: Voiding Method Bedpan # Voids 1 3 1 # Bowel Movements 1 - Exam Head normocephalic Neck supple Lungs coarse breath sounds with wheeze. Did show some improvement with cough Heart regular rate and rhythm S1-S2, no rub or gallop Abdomen is soft nontender nondistended positive bowel sounds no hepatosplenomegaly. No bruising or discoloration noted along the left flank Extremities no edema Neuro alert and orientated to 3 - Labs CBC & Chem 7: 06/17/16 06:05 06/17/16 06:05 Labs: Abnormal Lab Results - Last 24 Hours (Table) 06/16/16 06/16/16 06/16/16 Range/Units 11:58 16:44 22:18 RBC (3.80-5.40) m/uL Hgb (11.4-16.0) gm/dL Hct (34.0-46.0) % MCHC (31.0-37.0) g/dL RDW (11.5-15.5) % PT (9.0-12.0) sec BUN (7-17) mg/dL Glucose (74-99) mg/dL POC Glucose (mg/dL) 199 H 332 H 306 H (75-99) mg/dL Calcium (8.4-10.2) mg/dL Total Protein (6.3-8.2) g/dL Albumin (3.5-5.0) g/dL 06/17/16 06/17/16 06/17/16 Range/Units 06:05 06:05 06:05 RBC 2.98 L (3.80-5.40) m/uL Hgb 8.2 L (11.4-16.0) gm/dL Hct 28.1 L (34.0-46.0) % MCHC 29.1 L (31.0-37.0) g/dL RDW 21.5 H (11.5-15.5) % PT 13.4 H (9.0-12.0) sec BUN 45 H (7-17) mg/dL Glucose 143 H (74-99) mg/dL POC Glucose (mg/dL) (75-99) mg/dL Calcium 8.2 L (8.4-10.2) mg/dL Total Protein 5.3 L (6.3-8.2) g/dL Albumin 2.5 L (3.5-5.0) g/dL 06/17/16 Range/Units 07:25 RBC (3.80-5.40) m/uL Hgb (11.4-16.0) gm/dL Hct (34.0-46.0) % MCHC (31.0-37.0) g/dL RDW (11.5-15.5) % PT (9.0-12.0) sec BUN (7-17) mg/dL Glucose (74-99) mg/dL POC Glucose (mg/dL) 136 H (75-99) mg/dL Calcium (8.4-10.2) mg/dL Total Protein (6.3-8.2) g/dL Albumin (3.5-5.0) g/dL Microbiology - Last 24 Hours (Table) 06/02/16 14:30 Acid Fast Bacilli Smear - Final Bronchial Washings - Right Acid Fast Bacilli Culture - Preliminary Assessment and Plan Plan: 1. Polymicrobial pneumonia with MRSA and stenotrophomonas maltophilia with sepsis: Chest x-ray showing cardiomegaly with peripheral vascular congestion and patchy density in the right lower lobe. Also elevated temp of 102, white count 16.4 and lactic acid of 2.1. Patient followed by infectious disease and pulmonary. Patient has PICC line. Patient is status post bronchoscopy. Bronch cultures positive for influenza B. Patient started on Tamiflu. bronch cultures also growing MRSA and stenotrophomonas maltophilia. Bronchoscopy pathology shows no evidence of malignant cells. Followed by both pulmonary and infectious disease. Patient has completed the Tamiflu treatment. She's currently on vancomycin and Bactrim. 2. Acute on chronic systolic CHF exacerbation. Most recent echo shows an EF of 40-45%. BNP elevated in the 3000's. Chest x-ray showing peripheral vascular congestion. Evaluated by cardiology service. Continue Lasix 40 mg by mouth twice a day 3. Cardiac pauses. Continue with telemetry monitoring. Evaluated by cardiology and medications adjusted 4. Possible phlebitis of the left arm: Left arm pain and swelling bruising and firmness at old IV site. Showed improvement. Doppler shows no evidence of DVT. There was evidence of SVT. Keep arm elevated 5. Elevated troponin with no chest pain. Evaluated by cardiology 6. Acute anemia secondary to chronic blood loss and suspected lower GI bleed as well as iron deficiency anemia. Hemoglobin is up to 8.4. Patient received 1 dose of IV iron. And then will start ferrous sulfate 325 mg twice a day. Iron level low at 29. Was unable to have a colonoscopy during last admission due to multiple complications. She had a EGD last month at [facility] that was unremarkable. We'll continue to monitor hemoglobin. 7. Chronic atrial fibrillation maintained on Coumadin for anticoagulation. INR 2.5 8. History of COPD: Continue with nebulizer treatments. 9. Diabetes mellitus insulin-dependent: Continue Levemir and sliding scale coverage. Continue sliding scale coverage. Hemoglobin A1c of 7.2. 10. Left groin seroma: Wound culture growing MRSA. Continue vancomycin. Continue wound care. Followed by Dr. García. At discharge patient will follow -up with Dr. García in 2 weeks wound care center 11. Severe protein calorie malnutrition: Continue with protein supplements 12. Constipation: Improved 13. Acute bronchiectasis likely related to pneumonia. Pulmonary following in the recommending vest therapy. 14. Left flank hematoma: Continue to monitor closely. Dr. Parrish discussed case with multiple specialist on the case, recommendation were to continue with Coumadin due to recent arterial blood clot on the left lower extremity requiring surgery. Continue monitoring hemoglobin and continue to keep INR in the lower therapeutic area will follow closely. We'll adjust dose of Coumadin for INR of 1.4 Case was discussed in details with patient and family. GI prophylaxis Protonix and DVT prophylaxis Coumadin Anticipate discharge to [facility] tomorrow I performed an examination of the patient and discussed their management with the physician Medical Screener. I have reviewed the Physician Medical Screener's notes and agree with the documented findings and plan of care
[2016-06-17 12:22] LABS: Glucose,Whole Blood 202 mg/dL (75-99)
--- NOTE | 2016-06-17 13:46 | P.PN ---
Subjective This is a 76-year-old female patient who is being evaluated and examined today on the sixth floor. This patient is well-known to our service. This patient recently was hospitalized in April with a left leg ischemia status post thrombectomy, pneumonia, COPD exacerbation, GI bleed, and CHF exacerbation. The patient was subsequently discharged to [facility]. She came back to the emergency room with some shortness of breath, cough, fever, generalized weakness and lethargy. Patient has multiple readdmissions to the hospital due to her respiratory status and develops reoccuring pnemonia with her bronchiectasis. The patient was admitted with stay with pneumonia, bronchospasms, acute hypoxia, chronic anemia, febrile illness and elevated troponins. The patient is known to have chronic hypoxia and uses 3 L of oxygen at the rehab facility as well and she wears CPAP for obstructive sleep apnea. The patient underwent a bronchoscopy with Dr. Pittman. The patient had extensive amount of purulent secretions that were aspirated from both lungs, and both lungs appear to be plugged, patient tolerated procedure well. Patient states she feels significantly better post procedure. He was also known to have a left flank hematoma and will be started on Coumadin due to her recent arterial blood clot on the left lower extremity requiring surgery. Upon examination the patient is resting in bed up on 3-4 L of oxygen via nasal cannula. She continues to have shortness of breath, however slighlty improved. Continues with chronic cough which has been greater than a six-month minimum , occasionally productive with clear phlegm. She continues to use her flutter valve, however the patient has insufficient expiratory force therefore her flutter valve is a tried and failed alternative therapy to her bronchiectasis. Chest x-ray and CT were both reviewed and are consistent with bronchiectasis. Physical manual percussion therapy has been tried however the patient cannot tolerate the positioning due to her physical limitations. Patient is being worked up for potential discharge tomorrow, to a rehabilitation facility.. Objective - Vital Signs Vital signs: Vital Signs Temp 98.1 F 06/17/16 07:00 Pulse 84 06/17/16 13:28 Resp 22 06/17/16 07:00 BP 159/64 06/17/16 07:00 Pulse Ox 92 L 06/17/16 07:00 Intake & Output 06/16/16 06/17/16 06/17/16 18:59 06:59 18:59 Intake Total 490 850 490 Output Total 350 Balance 140 850 490 Weight 122 kg 107.5 kg Intake: Intake, IV Titration 250 250 Amount Vancomycin 1,250 mg In 250 250 Sodium Chloride 0.9% 250 ml @ 125 mls/hr IVPB Q24H [facility] Rx#:[id number] Oral 240 850 240 Output: Urine 350 Other: Voiding Method Bedpan # Voids 1 3 1 # Bowel Movements 1 - Exam GENERAL EXAM: Alert, active, comfortable in no apparent distress. HEAD: Normocephalic. EYES: Normal reaction of pupils, equal size. NOSE: Clear with pink turbinates. THROAT: No erythema or exudates. NECK: No masses, no JVD. CHEST: No chest wall deformity. LUNGS: Lungs noted to be bilaterally coarse and congested, with few faint rhonchi. Some fine crackles at the bases. CVS: S1 and S2 normal with no audible mumurs, regular rhythm. ABDOMEN: No hepatosplenomegaly, normal bowel sounds, no guarding or rigidity. There is no left flank bruising or discoloration noted. EXTREMITIES: Trace edema noted, pedal pulses palpable. SKIN: No rashes CENTRAL NERVOUS SYSTEM: No focal deficits, tone is normal in all 4 extremities. - Labs CBC & Chem 7: 06/17/16 06:05 06/17/16 06:05 Labs: Abnormal Lab Results - Last 24 Hours (Table) 06/16/16 06/16/16 06/17/16 Range/Units 16:44 22:18 06:05 RBC (3.80-5.40) m/uL Hgb (11.4-16.0) gm/dL Hct (34.0-46.0) % MCHC (31.0-37.0) g/dL RDW (11.5-15.5) % PT (9.0-12.0) sec BUN 45 H (7-17) mg/dL Glucose 143 H (74-99) mg/dL POC Glucose (mg/dL) 332 H 306 H (75-99) mg/dL Calcium 8.2 L (8.4-10.2) mg/dL Total Protein 5.3 L (6.3-8.2) g/dL Albumin 2.5 L (3.5-5.0) g/dL 06/17/16 06/17/16 06/17/16 Range/Units 06:05 06:05 07:25 RBC 2.98 L (3.80-5.40) m/uL Hgb 8.2 L (11.4-16.0) gm/dL Hct 28.1 L (34.0-46.0) % MCHC 29.1 L (31.0-37.0) g/dL RDW 21.5 H (11.5-15.5) % PT 13.4 H (9.0-12.0) sec BUN (7-17) mg/dL Glucose (74-99) mg/dL POC Glucose (mg/dL) 136 H (75-99) mg/dL Calcium (8.4-10.2) mg/dL Total Protein (6.3-8.2) g/dL Albumin (3.5-5.0) g/dL 06/17/16 Range/Units 12:02 RBC (3.80-5.40) m/uL Hgb (11.4-16.0) gm/dL Hct (34.0-46.0) % MCHC (31.0-37.0) g/dL RDW (11.5-15.5) % PT (9.0-12.0) sec BUN (7-17) mg/dL Glucose (74-99) mg/dL POC Glucose (mg/dL) 202 H (75-99) mg/dL Calcium (8.4-10.2) mg/dL Total Protein (6.3-8.2) g/dL Albumin (3.5-5.0) g/dL Microbiology - Last 24 Hours (Table) 06/02/16 14:30 Acid Fast Bacilli Smear - Final Bronchial Washings - Right Acid Fast Bacilli Culture - Preliminary Assessment and Plan Plan: Assessment MRSA Pneumonia with sepsis Acute exacerbation of chronic obstructive pulmonary disease Acute on chronic systolic congestive heart failure exacerbation Elevated troponins Acute anemia secondary to chronic blood loss and suspected lower GI bleed Chronic atrial fibrillation Diabetes mellitus insulin-dependent Acute on chronic hypoxic respiratory failure Obesity hypoventilation Bronchiectasis Chronic cough lasting longer than 6 months Flank hematoma Plan Patient can be cleared from a pulmonary standpoint for discharge, to a rehabilitation facility.. Medications have been reviewed and will be continued as ordered. Cardiology and ID is also on consult. Continues in contact per cautions for her MRSA in the sputum. Physical percussion is noted to be a failed therapy due to the patient being unable to tolerate positioning as well as the physical limitations of her body. The flutter therapy is ineffective as well due to the patient having an insufficient expiratory force. Both chest x- ray and CT results reviewed and are consistent with her bronchiectasis. Continue with supportive care. This patient would best benefit with an airway clearance vest therapy, which we will provide a prescription for her. . We will continue to monitor labs/results and adjust treatment as necessary. I performed an examination of the patient and discussed their management with the nurse practitioner. I have reviewed the nurse practitioner's note and agree with the documented findings and plan of care.
[2016-06-17] MEDS ORDERED: FUROSEMIDE 10 MG/ML 2 ML VIAL IV STA (15:45)
[2016-06-17 17:21] LABS: Glucose,Whole Blood 290 mg/dL (75-99)
[2016-06-17] MEDS ORDERED: INSULIN LISPRO (humaLOG) 300 UNIT/3 ML VIAL SQ SCH (17:45)
[2016-06-17] MEDS ORDERED: WARFARIN 3 MG TAB PO ONE (18:00)
[2016-06-17 20:50] LABS: Glucose,Whole Blood 301 mg/dL (75-99)
[2016-06-17] MEDS: LOSARTAN 50 MG TAB PO SCH (21:49)
[2016-06-17] MEDS: POLYETHYLENE GLYCOL 3350 17 GM POWD.PACK PO SCH (21:49)
[2016-06-17] MEDS: PRAVASTATIN SODIUM 20 MG TAB PO SCH (21:49)
[2016-06-17] MEDS: MONTELUKAST 10 MG TAB PO SCH (21:49)
[2016-06-18 06:08] LABS: Anisocytosis Moderate; Basophils % (A) 0 %; CHCM 30.6; Eosinophils % (A) 0 %; HGB 9.5 gm/dL (11.4-16.0); Hypochromasia Marked; Luc # (Auto) 0.27; Luc % (Auto) 3; Lymphocytes # (A) 1.3 k/uL (1.0-4.8); Lymphocytes % (A) 12 %; MCHC 31.6 g/dL (31.0-37.0); MCV 91.9 fL (80.0-100.0); Macrocytosis Slight; Mean Platelet Volume 7.4; Monocytes # (A) 0.8 k/uL (0-1.0); Monocytes % (A) 8 %; Neutrophils # (A) 8.3 k/uL (1.3-7.7); Neutrophils % (A) 77 %; Poikilocytosis Moderate; RBC 3.26 m/uL (3.80-5.40); RDW 21.2 % (11.5-15.5); WBC 10.7 k/uL (3.8-10.6); WBC (Perox) 11.11
[2016-06-18 06:10] LABS: INR 1.6 (<1.1); Prothrombin Time 15.4 sec (9.0-12.0)
[2016-06-18 06:23] LABS: Anion Gap 5 mmol/L; Blood Urea Nitrogen 44 mg/dL (7-17); Carbon Dioxide 29 mmol/L (22-30); Chloride 102 mmol/L (98-107); Glucose 112 mg/dL (74-99); Non-African American GFR(MDRD) 54 (>60 ml/min/1.73 sqM); Potassium 4.5 mmol/L (3.5-5.1); Sodium 136 mmol/L (137-145)
[2016-06-18] MEDS ORDERED: INSULIN LISPRO (humaLOG) 300 UNIT/3 ML VIAL SQ SCH ×2 (07:30→12:30)
[2016-06-18 07:44] LABS: Glucose,Whole Blood 109 mg/dL (75-99)
[2016-06-18] MEDS: IPRATROPIUM-ALBUTEROL 3 ML NEB INHALATION SCH ×2 (08:41→12:02)
[2016-06-18] MEDS: BUDESONIDE 1 MG/2 ML NEBU INHALATION SCH (08:41)
[2016-06-18] MEDS: INSULIN LISPRO (humaLOG) 300 UNIT/3 ML VIAL SQ SCH ×2 (08:46→12:30)
[2016-06-18] MEDS: PANTOPRAZOLE 40 MG TABLET PO SCH (08:46)
[2016-06-18] MEDS: ALPRAZolam 0.25 MG TAB PO SCH (08:46)
[2016-06-18] MEDS: DOCUSATE 100 MG CAP PO SCH (08:47)
[2016-06-18] MEDS: DIGOXIN 125 MCG TAB PO SCH (08:47)
[2016-06-18] MEDS: guaiFENesin 600 MG TABLET.ER PO SCH (08:47)
[2016-06-18] MEDS: INSULIN DETEMIR 100 UNIT/ML 10 ML VIAL SQ SCH (08:47)
[2016-06-18] MEDS: FUROSEMIDE 40 MG TAB PO SCH ×2 (08:47→16:39)
[2016-06-18] MEDS: FERROUS SULFATE 325 MG TAB PO SCH (08:47)
[2016-06-18] MEDS: SULFAMETHOX-TMP 400-80MG 1 EACH TAB PO SCH (08:48)
[2016-06-18] MEDS: METOPROLOL SUCCINATE (ER) 100 MG TAB.ER.24H PO SCH (08:48)
[2016-06-18] MEDS: predniSONE 20 MG TAB PO SCH (08:48)
[2016-06-18] MEDS: HYDROcodone/APAP 10-325MG 1 EACH TAB PO PRN ×3 (08:50→16:39)
[2016-06-18 12:29] LABS: Glucose,Whole Blood 153 mg/dL (75-99)
[2016-06-18] MEDS: VANCOMYCIN 1,250 MG in SODIUM CHLORIDE 0.9% 250 ML IVPB SCH (12:30)
--- NOTE | 2016-06-18 12:35 | P.DS ---
Providers Date of admission: 05/19/16 12:22 Expected date of discharge: 06/18/16 Attending physician: Elda Parrish Consults: 05/20/16 06:41 Consult Physician Routine Consulting Provider: [facility] Consult Reason/Comments: Cardiac pause Do you want consulting provider notified?: Yes, Notify in am 05/20/16 10:00 Consult Physician Routine Consulting Provider: Felipe Pittman Consult Reason/Comments: pneumonia Do you want consulting provider notified?: Yes 05/20/16 16:23 Consult Physician Routine Consulting Provider: Hoang García Consult Reason/Comments: Recent procedure Do you want consulting provider notified?: Yes 05/26/16 16:56 Consult Physician Routine Consulting Provider: Mohan Wild Consult Reason/Comments: pneumonia Do you want consulting provider notified?: Yes Primary care physician: Maria Luisa Bland [facility] Course: Discharge diagnosis 1. Polymicrobial pneumonia with MRSA and stenotrophomonas maltophilia with sepsis: Chest x-ray showing cardiomegaly with peripheral vascular congestion and patchy density in the right lower lobe. Also elevated temp of 102, white count 16.4 and lactic acid of 2.1. Patient followed by infectious disease and pulmonary. Patient has PICC line. Patient is status post bronchoscopy. Bronch cultures positive for influenza B. Patient started on Tamiflu. bronch cultures also growing MRSA and stenotrophomonas maltophilia. Bronchoscopy pathology shows no evidence of malignant cells. Followed by both pulmonary and infectious disease. Patient has completed the Tamiflu treatment. She's currently on vancomycin and Bactrim. She is to continue vancomycin and Bactrim until June 22 2. Acute on chronic systolic CHF exacerbation. Most recent echo shows an EF of 40-45%. BNP elevated in the 3000's. Chest x-ray showing peripheral vascular congestion. Evaluated by cardiology service. Continue Lasix 40 mg by mouth twice a day 3. Cardiac pauses. Continue with telemetry monitoring. Evaluated by cardiology and medications adjusted 4. Possible phlebitis of the left arm: Left arm pain and swelling bruising and firmness at old IV site. Showed improvement. Doppler shows no evidence of DVT. There was evidence of SVT. Keep arm elevated 5. Elevated troponin with no chest pain. Evaluated by cardiology 6. Acute anemia secondary to chronic blood loss and suspected lower GI bleed as well as iron deficiency anemia. Hemoglobin is up to 8.4. Patient received 1 dose of IV iron. And then will start ferrous sulfate 325 mg twice a day. Iron level low at 29. Was unable to have a colonoscopy during last admission due to multiple complications. She had a EGD last month at [facility] that was unremarkable. We'll continue to monitor hemoglobin. Acute anemia also related to the left flank hematoma. 7. Chronic atrial fibrillation maintained on Coumadin for anticoagulation. 8. History of COPD: Continue with nebulizer treatments. 9. Diabetes mellitus insulin-dependent: Continue Levemir and scheduled insulin with meals. Continue sliding scale coverage. Hemoglobin A1c of 7.2. 10. Left groin seroma: Wound culture growing MRSA. Continue vancomycin. Continue wound care. Followed by Dr. García. At discharge patient will follow -up with Dr. García in 2 weeks wound care center 11. Severe protein calorie malnutrition: Continue with protein supplements 12. Constipation: Improved 13. Acute bronchiectasis likely related to pneumonia. Pulmonary following in the recommending vest therapy. 14. Left flank hematoma: Continue to monitor closely. Dr. Parrish discussed case with multiple specialist on the case, recommendation were to continue with Coumadin due to recent arterial blood clot on the left lower extremity requiring surgery. Continue monitoring hemoglobin and continue to keep INR in the lower therapeutic area will follow closely. INR 1.6. She will receive Coumadin 3 mg before discharge today. And then resume Coumadin 2 mg daily Hospital course This is a 76-year-old female who had a prolonged hospitalization with multiple medical issues. She initially presented to the hospital on 05/20/2016 with cough and fever. She had evidence of sepsis and pneumonia. Temp of 102, white count 16.4 and lactic acid 2.1. She was given IV fluids and started on IV antibiotics. She also had evidence of cardiac positive. Her EKG had shown atrial fibrillation with a heart rate of 55. Telemetry was showing 2 seconds to 3 second cardiac positive. Cardiology consulted. They did adjust medications her Cardizem was discontinued and initially digoxin as well. Digoxin was readmitted at a lower dose due to some tachycardia. Pulmonary and infectious disease were following in regards to patient's pneumonia. Her pneumonia initially grew MRSA in her sputum culture. She was on IV vancomycin. However her symptoms did not improve and she did require bronchoscopy. Her pneumonia was polymicrobial with MRSA and stenotrophomonas maltophilia growing in the bronchial washings. Infectious disease adjusted antibiotics again and she was on vancomycin and Bactrim. Blood cultures remain negative. Infectious disease is recommending to continue the vancomycin and Bactrim until June 22. She also had evidence of some congestive heart failure and required IV Lasix. Cardiology has been following closely. And she is currently on Lasix 40 mg by mouth twice a day. Pulmonary service continue to follow as well if concerns about bronchiectasis related to pneumonia and the recommending vest therapy. They have written a prescription for this therapy. Also during this admission patient developed a left groin seroma at the surgical site. Wound culture had grown MRSA as well. She was on the vancomycin she was evaluated again by the vascular surgeon Dr. García. She'll follow-up with Dr. García in the wound care center in 2 weeks. Patient had started doing well and then became nauseous and having abdominal discomfort. She was treated for constipation. However the abdominal discomfort remained. She had a computed tomography scan of the abdomen completed that had shown a left flank hematoma. It was decided to continue the Coumadin due to her recent arterial blood clot on the left leg requiring surgery. She did a total of 2 units of blood during this admission. She did receive 1 unit of blood yesterday hemoglobin is up to 9.5. We'll have a CBC checked on Tuesday to continue to follow her anemia. Her INR is 1.6 at discharge. She'll receive 3 mg of Coumadin before discharge today and then continue 2 mg of Coumadin daily. We'll check a PT/INR on Tuesday and then continue checking twice a week for close monitoring 4 weeks. Patient's symptoms have improved. And she is currently medically stable and has been cleared by consulting physicians for discharge to [facility] for further rehabilitation. Dr. Veliz we'll follow patient at the group home. Please refer to chart for any further details. Patient Condition at Discharge: Stable Plan - Discharge Summary New Discharge Prescriptions: ALPRAZolam [Xanax] 0.25 mg PO BID #30 tablet HYDROcodone/APAP 10-325MG [[place] 10-325] 1 tab PO Q4HR PRN #60 tab PRN Reason: Pain predniSONE 10 mg PO DAILY #3 tab Discharge Medication List Losartan Potassium [Cozaar] 50 mg PO HS 04/27/16 [History] Metoprolol Succinate [Toprol XL] 200 mg PO BID 04/27/16 [History] Montelukast Sodium [Singulair] 10 mg PO HS 04/27/16 [History] Pravastatin Sodium [Pravachol] 20 mg PO HS 04/27/16 [History] Budesonide [Pulmicort] 1 mg INHALATION RT-BID nebu 05/13/16 [Rx] Ipratropium-Albuterol Nebulize [Duoneb 0.5 mg-3 mg/3 ml Soln] 3 ml INHALATION RT -QID ampul.neb 05/13/16 [Rx] Sulfamethox-Tmp 400-80Mg [Bactrim SS 400-80 mg] 1 each PO BID #28 tab 06/08/16 [ Rx] Vancomycin 1,000 mg IVPB Q24H #14 vial 06/08/16 [Rx] ALPRAZolam [Xanax] 0.25 mg PO BID #30 tablet 06/18/16 [Rx] Digoxin [Lanoxin] 125 mcg PO DAILY tab 06/18/16 [Rx] Docusate [Colace] 100 mg PO BID cap 06/18/16 [Rx] Ferrous Sulfate [Iron (65 MG Elemental)] 325 mg PO BID tab 06/18/16 [Rx] Furosemide [Lasix] 40 mg PO BID@0900,1600 tab 06/18/16 [Rx] HYDROcodone/APAP 10-325MG [[place] 10-325] 1 tab PO Q4HR PRN #60 tab 06/18/16 [Rx] INSULIN LISPRO (humaLOG) [humaLOG (formulary)] 4 unit SQ AC-SUPPER vial [Rx] INSULIN LISPRO (humaLOG) [humaLOG (formulary)] 7 unit SQ AC-BRKFST vial [Rx] INSULIN LISPRO (humaLOG) [humaLOG (formulary)] 7 unit SQ AC-LUNCH vial [Rx] Insulin Detemir [Levemir] 20 unit SQ HS vial 06/18/16 [Rx] Insulin Detemir [Levemir] 50 unit SQ DAILY vial 06/18/16 [Rx] Polyethylene Glycol 3350 [Miralax] 17 gm PO HS powd.pack 06/18/16 [Rx] Warfarin Sodium [Coumadin] 2 mg PO DAILY #0 06/18/16 [Rx] guaiFENesin [Mucinex] 600 mg PO Q12HR tablet.er 06/18/16 [Rx] predniSONE 10 mg PO DAILY #3 tab 06/18/16 [Rx] Follow up Appointment(s)/Referral(s): Felipe Pittman MD [STAFF PHYSICIAN] - 1 Week Hoang García MD [STAFF PHYSICIAN] - 2 Weeks () Elda Parrish MD [STAFF PHYSICIAN] - 1 Week Ambulatory/Diagnostic Orders: Basic Metabolic Panel [LAB.AMB] Location: Determined By Patient Complete Blood Count w/diff [LAB.AMB] Location: Determined By Patient Prothrombin Time INR [LAB.AMB] Location: Determined By Patient Activity/Diet/Wound Care/Special Instructions: Diet: diabetic, cardiac Activity: as tolerated Check CBC, BMP PT/INR on Tuesday Ok to discharge to [facility] Discharge Disposition: TRANSFER TO SNF/ECF
[2016-06-18] MEDS: LACTATED RINGERS 1,000 ML IV SCH (12:58)
[2016-06-18] MEDS ORDERED: WARFARIN 3 MG TAB PO ONE (13:00)
[2016-06-18 15:04] VITALS: BP 135/67; PULSE 65; RESP 18; TEMP 97
--- NOTE | 2016-06-18 20:11 | P.PN ---
Subjective Principal diagnosis: Shortness of breath 76-year-old female who has an extensive hospitalization currently at 7 days of admission but actually it's been longer than that due to her short hiatus out of the hospital. She was deemed medically stable to be to leave the hospital to attend her 's this occurred while she has been so ill. The patient was admitted with severe shortness of breath from the extended care facility she was being cared for after her gastrointestinal bleeding and worsening of her underlying pulmonary disease. The patient does have severe underlying pulmonary disease and wears oxygen at all times and does use a CPAP at night because of her sleep apnea. Recently this has definitely been worse and because of concerns to ongoing pneumonia the infectious diseases consultation was requested This patient relates she just feeling slightly better than when she was first admitted. She was having difficulties that time also with her lower extremity and the left. She was seen by vascular surgery and a large clot was noted and a thrombectomy , endarterectomy and patch angioplasty was performed of the left arterial system, large clot was seen. Patient relates that her leg continues to feel okay. She is less short of breath. She did have bronchoscopy. Evidence of influenza B was found. Also evidence of MRSA as well as Stenotrophomonas maltophilia. She is now completed her course of Tamiflu. Is being treated with vancomycin and Bactrim for the isolate pathogens. She is feeling better. Appetite is improving. She is encouraged to eat as much of the protein as she can Objective - Vital Signs Vital signs: Vital Signs Temp 97.0 F L 06/18/16 15:00 Pulse 65 06/18/16 15:00 Resp 18 06/18/16 15:00 BP 135/67 06/18/16 15:00 Pulse Ox 91 L 06/18/16 15:00 Intake & Output 06/18/16 06/18/16 06/19/16 06:59 18:59 06:59 Intake Total 870 Balance 870 Weight 111 kg Intake: Oral 870 Blood Product 0 Rc As-3 Unit 0 [id number] Other: Voiding Method Bedpan # Voids 4 5 # Bowel Movements 0 - Exam 76-year-old woman who relates she is feeling less short of breath but appears to still be short of breath HEENT: Anicteric conjunctiva are pink and moist nasal mucosa grossly intact without significant lesions, there is no thrush. Worn dentition Neck: The neck is supple without significant lymphadenopathy or thyromegaly. Lungs: Symmetrical air entry is noted. Wheezes throughout the lung olivares are noted. Bibasilar crackles are heard right greater than left no dullness is noted minimal egophony to the right base is noted Heart: Regular rate and rhythm with an audible S1-S2, no S3 no S4. There is no significant murmur click or rub, PMI was nondisplaced. Abdomen: Obese, Positive bowel sounds soft and nontender without palpable masses or organomegaly. There was no guarding or rebound. The left lateral flank with hematomas been present is less tender. Extremities: The upper and lower extremity is have some generalized edema. However no open ulcerations are seen. The entry site for the thrombectomy is without bleeding drainage or tenderness Neuro: Awake alert oriented to person place and time. There are no acute new gross focal sensory motor deficits. She has significant generalized weakness though - Labs CBC & Chem 7: 06/18/16 05:40 06/18/16 05:40 Labs: Abnormal Lab Results - Last 24 Hours (Table) 06/17/16 06/17/16 06/18/16 Range/Units 15:00 20:44 05:40 WBC (3.8-10.6) k/uL RBC (3.80-5.40) m/uL Hgb (11.4-16.0) gm/dL Hct (34.0-46.0) % RDW (11.5-15.5) % Neutrophils # (1.3-7.7) k/uL PT (9.0-12.0) sec Sodium 136 L (137-145) mmol/L BUN 44 H (7-17) mg/dL Glucose 112 H (74-99) mg/dL POC Glucose (mg/dL) 301 H (75-99) mg/dL Calcium 8.0 L (8.4-10.2) mg/dL Crossmatch See Detail 06/18/16 06/18/16 06/18/16 Range/Units 05:40 05:40 07:20 WBC 10.7 H (3.8-10.6) k/uL RBC 3.26 L (3.80-5.40) m/uL Hgb 9.5 L (11.4-16.0) gm/dL Hct 30.0 L (34.0-46.0) % RDW 21.2 H (11.5-15.5) % Neutrophils # 8.3 H (1.3-7.7) k/uL PT 15.4 H (9.0-12.0) sec Sodium (137-145) mmol/L BUN (7-17) mg/dL Glucose (74-99) mg/dL POC Glucose (mg/dL) 109 H (75-99) mg/dL Calcium (8.4-10.2) mg/dL Crossmatch 06/18/16 Range/Units 12:27 WBC (3.8-10.6) k/uL RBC (3.80-5.40) m/uL Hgb (11.4-16.0) gm/dL Hct (34.0-46.0) % RDW (11.5-15.5) % Neutrophils # (1.3-7.7) k/uL PT (9.0-12.0) sec Sodium (137-145) mmol/L BUN (7-17) mg/dL Glucose (74-99) mg/dL POC Glucose (mg/dL) 153 H (75-99) mg/dL Calcium (8.4-10.2) mg/dL Crossmatch Laboratory Results WBC 10.7 k/uL (3.8-10.6) H 06/18/16 05:40 RBC 3.26 m/uL (3.80-5.40) L 06/18/16 05:40 Hgb 9.5 gm/dL (11.4-16.0) L 06/18/16 05:40 Hct 30.0 % (34.0-46.0) L 06/18/16 05:40 MCV 91.9 fL (80.0-100.0) 06/18/16 05:40 MCH 29.0 pg (25.0-35.0) 06/18/16 05:40 MCHC 31.6 g/dL (31.0-37.0) 06/18/16 05:40 RDW 21.2 % (11.5-15.5) H 06/18/16 05:40 Plt Count 154 k/uL (150-450) 06/18/16 05:40 Neutrophils % 77 % 06/18/16 05:40 Neutrophils % (Manual) 78.5 % 05/31/16 06:08 Lymphocytes % 12 % 06/18/16 05:40 Lymphocytes % (Manual) 13.5 % 05/31/16 06:08 Monocytes % 8 % 06/18/16 05:40 Monocytes % (Manual) 4.5 % 05/31/16 06:08 Eosinophils % 0 % 06/18/16 05:40 Eosinophils % (Manual) 0.5 % 05/31/16 06:08 Basophils % 0 % 06/18/16 05:40 Metamyelocytes % 2.0 % 05/31/16 06:08 Myelocytes % 1.0 % 05/31/16 06:08 Neutrophils # 8.3 k/uL (1.3-7.7) H 06/18/16 05:40 Neutrophils # (Manual) 8.8 k/uL (1.3-7.7) H 05/31/16 06:08 Lymphocytes # 1.3 k/uL (1.0-4.8) 06/18/16 05:40 Lymphocytes # (Manual) 1.5 k/uL (1.0-4.8) 05/31/16 06:08 Monocytes # 0.8 k/uL (0-1.0) 06/18/16 05:40 Monocytes # (Manual) 0.5 k/uL (0-1.0) 05/31/16 06:08 Eosinophils # 0.0 k/uL (0-0.7) 06/18/16 05:40 Eosinophils # (Manual) 0.1 k/uL (0-0.7) 05/31/16 06:08 Basophils # 0.0 k/uL (0-0.2) 06/18/16 05:40 Nucleated RBCs 0 /100 WBC (0-0) 05/31/16 06:08 Manual Slide Review Performed 05/31/16 06:08 Hypochromasia Marked 06/18/16 05:40 Poikilocytosis Moderate 06/18/16 05:40 Anisocytosis Moderate 06/18/16 05:40 Macrocytosis Slight 06/18/16 05:40 PT 15.4 sec (9.0-12.0) H 06/18/16 05:40 INR 1.6 (<1.1) 06/18/16 05:40 APTT 27.1 sec (22.0-30.0) 05/19/16 10:05 Sodium 136 mmol/L (137-145) L 06/18/16 05:40 Potassium 4.5 mmol/L (3.5-5.1) 06/18/16 05:40 Chloride 102 mmol/L (98-107) 06/18/16 05:40 Carbon Dioxide 29 mmol/L (22-30) 06/18/16 05:40 Anion Gap 5 mmol/L 06/18/16 05:40 BUN 44 mg/dL (7-17) H 06/18/16 05:40 Creatinine 1.00 mg/dL (0.52-1.04) 06/18/16 05:40 Est GFR (MDRD) Af Amer >60 (>60 ml/min/1.73 sqM) 06/18/16 05:40 Est GFR (MDRD) Non-Af 54 (>60 ml/min/1.73 sqM) 06/18/16 05:40 Glucose 112 mg/dL (74-99) H 06/18/16 05:40 POC Glucose (mg/dL) 153 mg/dL (75-99) H 06/18/16 12:27 POC Glu Planner ID Cherri Mccall 06/18/16 12:[address] Glu mg/dL 166 mg/dL 05/23/16 07:03 Hemoglobin A1c 7.4 % (4.2-6.1) H 05/23/16 07:03 Plasma Lactic Acid Good 1.4 mmol/L (0.7-2.0) 05/19/16 13:51 Calcium 8.0 mg/dL (8.4-10.2) L 06/18/16 05:40 Phosphorus 4.0 mg/dL (2.5-4.5) 06/02/16 13:22 Magnesium 1.7 mg/dL (1.6-2.3) 06/02/16 13:22 Iron 29 ug/dL (37-170) L 06/03/16 05:50 TIBC 238 ug/dL (265-497) L 06/03/16 05:50 % Saturation 12.2 % (20-50) L 06/03/16 05:50 Ferritin 90 ng/mL (11-264) 06/03/16 05:50 Total Bilirubin 0.3 mg/dL (0.2-1.3) 06/17/16 06:05 AST 18 U/L (14-36) 06/17/16 06:05 ALT 23 U/L (9-52) 06/17/16 06:05 Alkaline Phosphatase 50 U/L (38-126) 06/17/16 06:05 Total Creatine Kinase <20 U/L (30-135) L 05/19/16 10:05 CK-MB (CK-2) <0.2 ng/mL (0.0-2.4) 05/19/16 10:05 CK-MB (CK-2) Rel Index 05/19/16 10:05 Troponin I 0.071 ng/mL (0.000-0.034) H* 05/19/16 10:05 NT-Pro-B Natriuret Pep 3920 pg/mL 05/20/16 09:00 Total Protein 5.3 g/dL (6.3-8.2) L 06/17/16 06:05 Albumin 2.5 g/dL (3.5-5.0) L 06/17/16 06:05 Amylase 40 U/L (30-110) 06/12/16 12:00 Lipase 15 U/L (23-300) L 06/12/16 12:00 TSH 2.550 mIU/L (0.465-4.680) 05/21/16 06:30 Free T4 0.76 ng/dL (0.78-2.19) L 05/21/16 06:30 Urine Color Light Yellow 05/19/16 10:25 Urine Appearance Clear (Clear) 05/19/16 10:25 Urine pH 6.5 (5.0-8.0) 05/19/16 10:25 Ur Specific [place] 1.011 (1.001-1.035) 05/19/16 10:25 Urine Protein Trace (Negative) H 05/19/16 10:25 Urine Glucose (UA) Negative (Negative) 05/19/16 10:25 Urine Ketones Negative (Negative) 05/19/16 10:25 Urine Blood Negative (Negative) 05/19/16 10:25 Urine Nitrite Negative (Negative) 05/19/16 10:25 Urine Bilirubin Negative (Negative) 05/19/16 10:25 Urine Urobilinogen <2.0 mg/dL (<2.0) 05/19/16 10:25 Ur Leukocyte Esterase Negative (Negative) 05/19/16 10:25 Vancomycin Trough 13.8 ug/mL 06/15/16 14:55 Random Vancomycin 19.6 ug/mL 06/05/16 08:11 Influenza Type A RNA Not Detected (Not Detectd) 05/19/16 10:05 Influenza Type B (PCR) Not Detected (Not Detectd) 05/19/16 10:05 Virus Source See Below 06/02/16 14:30 Viral Test See Below H 06/02/16 14:30 Virus Analysis Interp See Below 06/02/16 14:30 Miscellaneous Test Legionella, PCR 06/02/16 15:30 Misc Test Result See comment 06/02/16 15:30 Blood Type A Positive 06/17/16 15:00 Blood Type Recheck No 06/17/16 15:00 Antibody Screen NEGATIVE 06/17/16 15:00 Crossmatch See Detail 06/17/16 15:00 Spec Expiration Date 06/20/2016 - 2300 06/17/16 15:00 Microbiology 06/02/16 14:30 Bronchial Washings - Right Acid Fast Bacilli Smear - Final 06/02/16 14:30 Bronchial Washings - Right Acid Fast Bacilli Culture - Preliminary 06/02/16 14:30 Bronchial Washings - Right Fungal Culture - Preliminary Gabriela albicans 06/02/16 14:30 Bronchial Washings - Right Gram Stain - Final 06/02/16 14:30 Bronchial Washings - Right Bronchial Washings Culture - Final Methicillin resist S. aureus Stenotrophomonas maltophilia 05/30/16 00:30 Groin Anaerobic Culture - Final 05/30/16 00:30 Groin Gram Stain - Final 05/30/16 00:30 Groin Wound Culture - Final Methicillin resist S. aureus 05/30/16 01:40 Sputum Gram Stain - Final 05/30/16 01:40 Sputum Sputum Culture - Final Methicillin resist S. aureus 05/21/16 12:55 Blood Blood Culture - Final No Growth after 144 hours 05/19/16 10:05 Blood Blood Culture - Final No Growth after 144 hours Assessment and Plan (1) MRSA pneumonia Narrative/Plan: 76-year-old female who has multiple medical troubles occluding underlying significant cardiovascular disease, chronic pulmonary disease with oxygen dependence as well as sleep apnea presents to Hospital profoundly ill from the extended care facility. Apparently hospitalized for she had difficulties with gastrointestinal bleeding. During this stay she's had difficulties with congestive heart failure, exacerbation of COPD, extensive thrombus to the left leg requiring thrombectomy and endarterectomy. Patient relates is feeling just slightly better today. Review of the previous culture reveals evidence she does have evidence of the sputum culture with evidence of MRSA present. It does appear to be levofloxacin resistant. She was initiated vancomycin therapy. Is now having improvement within the last day. We'll need to complete a course of this time of her transfer back to [facility]. A bronchoscopy was performed and is allowed her to have an improvement by pulmonary toileting. As noted influenza B was found she's now completed her 5 day course of Tamiflu. We will plan on continuing isolation through at least Tuesday hopefully she'll be transferred at that time. As far as the MRSA and stenotrophomonas maltophilia. Continue vancomycin and Bactrim at this time. Plan 14 days. Monitor her INR closely The pneumocystis and Legionella testing is negative. Her creatinine is stable at this time. The patient did have evidence of the hematoma the abdominal wall. She's had a bowel movement is feeling considerably better. She is not having significant discomfort related to the hematoma. Hemoglobin is stable at this time. Would avoid IV iron therapy while she is being treated for her pneumonia. Status: Acute (2) Chronic a-fib Status: Acute (3) Acute blood loss anemia Status: Acute (4) Leukocytosis Status: Acute
--- NOTE | 2016-06-18 21:35 | PN ---
DATE OF SERVICE: 06/18/2016 Ms. Maria De Jesus Bui was seen, evaluated, examined. She is a 76-year-old female with complex issues and problems. She remains on supplemental oxygen. Her hemodynamic status is stable. Patient likely is being considered for placement in an extended-care facility. Her last set of vitals includes blood pressure 135/67, regular rate and rhythm 18, pulse 65. Temperature is 97. Her saturations are 91% to 92% on 3 L oxygen. Patient has been using CPAP machine at nighttime and as needed during the day as well. Her last chest x-ray performed, which was in fact a CT scan, continued to show some infiltrates at the bases. IMPRESSION: 1. Bilateral pneumonia, mixed bacterial, Gram-negative, with a component of methicillin-resistant Staphylococcus aureus, on IV vancomycin. Infectious Disease Service is adjusting antibiotics. 2. Severe degree of cardiomyopathy with chronic systolic heart failure; baseline ejection fraction 40%. 3. Diabetes mellitus. 4. Chronic anemia. 5. Peripheral arterial disease. 6. Left flank hematoma. PLAN: As above. Continue antibiotics as per Infectious Disease. Increase activity as tolerated. Agree with discharge planning. Will continue to follow closely in outpatient setting.
== END 2016-06-18 17:39 | DRG 853 ==
LOC: EC 10:01 → 6SEL 12:22 → 4MS4W 06-04 14:58
PROVIDERS: ADMIT Internal Medicine; ATTEND Internal Medicine
PROC: 30233N1 Transfusion of Nonautologous Red Blood Cells into Peripheral Vein, Percutaneous Approach (ICD-10-PCS; 2016-05-23)
PROC: 02HV33Z Insertion of Infusion Device into Superior Vena Cava, Percutaneous Approach (ICD-10-PCS; 2016-05-31)
PROC: 0B9C8ZX Drainage of Right Upper Lung Lobe, Via Natural or Artificial Opening Endoscopic, Diagnostic (ICD-10-PCS; 2016-06-02)
PROC: 0B9D8ZX Drainage of Right Middle Lung Lobe, Via Natural or Artificial Opening Endoscopic, Diagnostic (ICD-10-PCS; 2016-06-02)
PROC: 0BBF8ZX Excision of Right Lower Lung Lobe, Via Natural or Artificial Opening Endoscopic, Diagnostic (ICD-10-PCS; 2016-06-02)
PROC: 0BBC8ZX Excision of Right Upper Lung Lobe, Via Natural or Artificial Opening Endoscopic, Diagnostic (ICD-10-PCS; 2016-06-02)
PROC: 0BBD8ZX Excision of Right Middle Lung Lobe, Via Natural or Artificial Opening Endoscopic, Diagnostic (ICD-10-PCS; 2016-06-02)
PROC: 0B9F8ZX Drainage of Right Lower Lung Lobe, Via Natural or Artificial Opening Endoscopic, Diagnostic (ICD-10-PCS; principal; 2016-06-02 08:15)
DX: A41.9 Sepsis, unspecified organism (principal); E43 Unspecified severe protein-calorie malnutrition; J96.21 Acute and chronic respiratory failure with hypoxia; I50.23 Acute on chronic systolic (congestive) heart failure; J15.212 Pneumonia due to Methicillin resistant Staphylococcus aureus; K92.2 Gastrointestinal hemorrhage, unspecified; J44.0 Chronic obstructive pulmonary disease with (acute) lower respiratory infection; I42.9 Cardiomyopathy, unspecified; I13.0 Hypertensive heart and chronic kidney disease with heart failure and stage 1 through stage 4 chronic kidney disease, or unspecified chronic kidney disease; E11.22 Type 2 diabetes mellitus with diabetic chronic kidney disease; E11.51 Type 2 diabetes mellitus with diabetic peripheral angiopathy without gangrene; J96.22 Acute and chronic respiratory failure with hypercapnia; I48.1 Persistent atrial fibrillation; D62 Acute posthemorrhagic anemia; J44.1 Chronic obstructive pulmonary disease with (acute) exacerbation; E66.2 Morbid (severe) obesity with alveolar hypoventilation; T80.1XXA Vascular complications following infusion, transfusion and therapeutic injection, initial encounter; E11.65 Type 2 diabetes mellitus with hyperglycemia; Z99.81 Dependence on supplemental oxygen; I48.2 Chronic atrial fibrillation; D50.0 Iron deficiency anemia secondary to blood loss (chronic); K59.00 Constipation, unspecified; E78.5 Hyperlipidemia, unspecified; J45.909 Unspecified asthma, uncomplicated; E86.0 Dehydration; N18.9 Chronic kidney disease, unspecified; I25.10 Atherosclerotic heart disease of native coronary artery without angina pectoris; R74.8 Abnormal levels of other serum enzymes; B96.89 Other specified bacterial agents as the cause of diseases classified elsewhere; I99.8 Other disorder of circulatory system; T17.990A Other foreign object in respiratory tract, part unspecified in causing asphyxiation, initial encounter; T45.515A Adverse effect of anticoagulants, initial encounter; R32 Unspecified urinary incontinence; M21.372 Foot drop, left foot; I80.02 Phlebitis and thrombophlebitis of superficial vessels of left lower extremity; J10.1 Influenza due to other identified influenza virus with other respiratory manifestations; R33.9 Retention of urine, unspecified; I69.398 Other sequelae of cerebral infarction; E65 Localized adiposity; I49.5 Sick sinus syndrome; R11.0 Nausea; L92.9 Granulomatous disorder of the skin and subcutaneous tissue, unspecified; R53.1 Weakness; S30.1XXA Contusion of abdominal wall, initial encounter; R79.1 Abnormal coagulation profile; Z88.0 Allergy status to penicillin; Z86.718 Personal history of other venous thrombosis and embolism; Z79.4 Long term (current) use of insulin; Z83.3 Family history of diabetes mellitus; Z79.899 Other long term (current) drug therapy; Z85.820 Personal history of malignant melanoma of skin; Z87.01 Personal history of pneumonia (recurrent); Z79.01 Long term (current) use of anticoagulants; Z87.891 Personal history of nicotine dependence; Z71.3 Dietary counseling and surveillance; Z68.37 Body mass index [BMI] 37.0-37.9, adult; Z86.14 Personal history of Methicillin resistant Staphylococcus aureus infection; Z87.09 Personal history of other diseases of the respiratory system; Z87.19 Personal history of other diseases of the digestive system; Z90.710 Acquired absence of both cervix and uterus; Z79.891 Long term (current) use of opiate analgesic; Z79.52 Long term (current) use of systemic steroids
CPT/HCPCS: 31624; 36415; 36569; 71010; 71020; 71250; 74176; 76937; 77001; 80048; 80053; 80202; 81003; 82150; 82550; 82553; 82728; 83036; 83540; 83550; 83605; 83690; 83735; 83880; 84100; 84439; 84443; 84484; 85025; 85027; 85610; 85730; 86850; 86900; 86901; 86920; 87040; 87070; 87075; 87077; 87102; 87116; 87186; 87205; 87206; 87252; 87299; 87496; 87498; 87502; 87529; 87541; 87798; 88108; 88305; 93005; 94640; 94660; 94667; 94760; 96361; 96365; 96366; 99285

== ENCOUNTER 2016-07-13 14:54 | Inpatient (IN) | payer MEDICARE, BC ==
[2016-07-13] MEDS ORDERED: ACETAMINOPHEN TAB 500 MG TAB PO STA (15:24)
[2016-07-13] MEDS ORDERED: IPRATROPIUM-ALBUTEROL 3 ML NEB INHALATION STA (15:24)
--- NOTE | 2016-07-13 15:34 | ED ---
General Adult HPI - General Chief complaint: Shortness of Breath Stated complaint: SOB Time Seen by Provider: 07/13/16 15:14 Source: patient, family, RN notes reviewed Mode of arrival: EMS Limitations: physical limitation - History of Present Illness Initial comments: Patient is a pleasant 76-year-old female presenting to the emergency department with weakness and cough. Patient was discharged from the hospital a month ago with GI bleed and coagulation problems. Patient is on Coumadin with history of blood clots in her leg. Patient has been more sick over the past 10 days. Patient has cough with productive clear sputum. No chest pain. Patient is weak and fatigued. - Related Data Home Medications Medication Instructions Recorded Confirmed Losartan Potassium [Cozaar] 50 mg PO HS 04/27/16 07/13/16 Metoprolol Succinate [Toprol XL] 200 mg PO BID 04/27/16 07/13/16 Montelukast Sodium [Singulair] 10 mg PO HS 04/27/16 07/13/16 Pravastatin Sodium [Pravachol] 20 mg PO HS 04/27/16 07/13/16 ALPRAZolam [Xanax] 0.25 mg PO Q12HR 07/13/16 07/13/16 Budesonide [Pulmicort] 1 mg INHALATION RT-BID 07/13/16 07/13/16 Furosemide [Lasix] 40 mg PO BID 07/13/16 07/13/16 INSULIN LISPRO (humaLOG) [humaLOG 8 unit SQ AC-SUPPER 07/13/16 07/13/16 (formulary)] INSULIN LISPRO (humaLOG) [humaLOG 10 unit SQ AC-BRKFST 07/13/16 07/13/16 (formulary)] INSULIN LISPRO (humaLOG) [humaLOG 10 unit SQ AC-LUNCH 07/13/16 07/13/16 (formulary)] Insulin Detemir [Levemir] 25 unit SQ HS 07/13/16 07/13/16 Milk Of Magnesia 1200mg/15ml 2,400 mg PO Q72H PRN 07/13/16 07/13/16 Previous Rx's Medication Instructions Recorded Ipratropium-Albuterol Nebulize 3 ml INHALATION RT-QID ampul.neb 05/13/16 [Duoneb 0.5 mg-3 mg/3 ml Soln] Digoxin [Lanoxin] 125 mcg PO DAILY tab 06/18/16 Docusate [Colace] 100 mg PO BID cap 06/18/16 Ferrous Sulfate [Iron (65 MG 325 mg PO BID tab 06/18/16 Elemental)] HYDROcodone/APAP 10-325MG [[place] 1 tab PO Q4HR PRN #60 tab 06/18/16 10-325] Insulin Detemir [Levemir] 50 unit SQ DAILY vial 06/18/16 Polyethylene Glycol 3350 [Miralax] 17 gm PO HS powd.pack 06/18/16 Allergies Allergy/AdvReac Type Severity Reaction Status Date / Time Penicillins Allergy Rash/Hives Verified 07/13/16 16:46 Review of Systems ROS Statement: Those systems with pertinent positive or pertinent negative responses have been documented in the HPI. ROS Other: All systems not noted in ROS Statement are negative. Constitutional: Denies: fever, chills Eyes: Denies: eye pain ENT: Denies: ear pain Respiratory: Reports: cough, dyspnea Cardiovascular: Denies: chest pain Endocrine: Reports: fatigue Gastrointestinal: Denies: abdominal pain, hematemesis, melena, hematochezia Genitourinary: Denies: urgency Musculoskeletal: Denies: back pain Skin: Denies: rash Neurological: Denies: headache Past Medical History Past Medical History: Atrial Fibrillation, Asthma, Heart Failure, CVA/TIA, Diabetes Mellitus, Deep Vein Thrombosis (DVT), GI Bleed, Hyperlipidemia, Hypertension, Pneumonia Additional Past Medical History / Comment(s): Pt was recently admitted 04/27/16 with L leg ischemia, aucte blood loss anemia-suspect lower GI bleed, acute on chronic CHF, pneumonia with sepsis, exacerbation COPD. Other hx; CVAs-if tired will have slight speech change and chokes easily, chronic CHF, IDDM type II, bilateral cataracts, chronic anemia, 2015 vented for 3 months. History of Any Multi-Drug Resistant Organisms: MRSA Date of last positivie culture/infection: 06/02/16 MDRO Source:: BRONCH WASH Past Surgical History: Back Surgery, Breast Surgery, Hysterectomy Additional Past Surgical History / Comment(s): 05/18/16 thrombectomy/ endartectomy L common femoral artery, thoracic surgery in which a drainage tube was placed in her R lung due to pneumothorax, cyst removed from breast, L hip pain stimulator, EGD 03/2016 at [facility], melanoma removals. Past Anesthesia/Blood Transfusion Reactions: No Reported Reaction Additional Past Anesthesia/Blood Transfusion Reaction / Comment(s): Pt received blood with last admission without reaction. Past Psychological History: No Psychological Hx Reported Additional Psychological History / Comment(s): Pt currently living at [facility]. She just started standing with rails and assist. She is very weak. Has become during this hospital stay. Tobacco smoker until 3 years ago. No experience. No travel history. No animal exposures Smoking Status: Former smoker Past Alcohol Use History: None Reported Additional Past Alcohol Use History / Comment(s): Pt started smoking in 196 and quit in 2014 Past Drug Use History: None Reported - Past Family History Mother Family Medical History: Diabetes Mellitus Father Additional Family Medical History / Comment(s): Father had heart problems. General Exam Limitations: physical limitation General appearance: alert, other (Appears somewhat uncomfortable) Head exam: Present: atraumatic Eye exam: Present: normal appearance, PERRL ENT exam: Present: mucous membranes dry Neck exam: Present: normal inspection Respiratory exam: Present: rales Cardiovascular Exam: Present: tachycardia, irregular rhythm GI/Abdominal exam: Present: soft. Absent: distended, tenderness, guarding, rebound, rigid Extremities exam: Present: normal inspection. Absent: calf tenderness Neurological exam: Present: alert Psychiatric exam: Present: normal affect, normal mood Skin exam: Present: other (Left lower abdomen ulcer which is reported is chronic. No signs of infection) Course Vital Signs 07/13/16 07/13/16 07/13/16 14:56 15:42 15:46 Temperature 101.3 F H 101.6 F H Pulse Rate 121 H 85 Respiratory 28 H 22 24 Rate Blood Pressure 152/66 160/70 O2 Sat by Pulse 88 L 93 L Oximetry 07/13/16 07/13/16 16:12 16:27 Temperature 100.3 F H Pulse Rate 91 91 Respiratory 24 Rate Blood Pressure 148/68 O2 Sat by Pulse 96 Oximetry - Reevaluation(s) Reevaluation #1: 07/13/16 16:38 Patient improved with nebulizer. Patient does meet sepsis criteria diagnosed at 1638. EKG Findings - EKG Comments: EKG Findings:: A. fib with rate of 90. QRS 88. QT 326. QTc 398. Normal axis. Low QRS voltage. Septal Q waves. No acute ST change. Medical Decision Making - Medical Decision Making Patient reevaluated. Patient and family updated. Case discussed in detail with Dr. Nguyen who will admit for Dr. White. - Lab Data Result diagrams: 07/13/16 15:10 07/13/16 15:10 Lab Results 07/13/16 07/13/16 07/13/16 Range/Units 15:10 15:10 15:10 WBC 16.8 H (3.8-10.6) k/uL RBC 3.12 L (3.80-5.40) m/uL Hgb 8.9 L (11.4-16.0) gm/dL Hct 29.5 L (34.0-46.0) % MCV 94.3 (80.0-100.0) fL MCH 28.6 (25.0-35.0) pg MCHC 30.3 L (31.0-37.0) g/dL RDW 18.2 H (11.5-15.5) % Plt Count 191 (150-450) k/uL Neutrophils % 84 % Lymphocytes % 7 % Monocytes % 7 % Eosinophils % 0 % Basophils % 0 % Neutrophils # 14.1 H (1.3-7.7) k/uL Lymphocytes # 1.1 (1.0-4.8) k/uL Monocytes # 1.1 H (0-1.0) k/uL Eosinophils # 0.0 (0-0.7) k/uL Basophils # 0.1 (0-0.2) k/uL Hypochromasia Marked Anisocytosis Slight PT (9.0-12.0) sec INR (<1.1) APTT (22.0-30.0) sec Sodium 136 L (137-145) mmol/L Potassium 4.6 (3.5-5.1) mmol/L Chloride 101 (98-107) mmol/L Carbon Dioxide 26 (22-30) mmol/L Anion Gap 9 mmol/L BUN 38 H (7-17) mg/dL Creatinine 1.43 H (0.52-1.04) mg/dL Est GFR (MDRD) Af Amer 43 (>60 ml/min/1.73 sqM) Est GFR (MDRD) Non-Af 35 (>60 ml/min/1.73 sqM) Glucose 168 H (74-99) mg/dL Plasma Lactic Acid Good 1.3 (0.7-2.0) mmol/L Calcium 8.3 L (8.4-10.2) mg/dL Total Bilirubin 0.4 (0.2-1.3) mg/dL AST 20 (14-36) U/L ALT 26 (9-52) U/L Alkaline Phosphatase 68 (38-126) U/L Total Protein 5.7 L (6.3-8.2) g/dL Albumin 2.6 L (3.5-5.0) g/dL Urine Color Urine Appearance (Clear) Urine pH (5.0-8.0) Ur Specific [place] (1.001-1.035) Urine Protein (Negative) Urine Glucose (UA) (Negative) Urine Ketones (Negative) Urine Blood (Negative) Urine Nitrite (Negative) Urine Bilirubin (Negative) Urine Urobilinogen (<2.0) mg/dL Ur Leukocyte Esterase (Negative) Urine RBC (0-5) /hpf Urine WBC (0-5) /hpf Urine WBC Clumps (None) /hpf Ur Squamous Epith Cells (0-4) /hpf Urine Bacteria (None) /hpf Urine Yeast (Budding) (None) /hpf 07/13/16 07/13/16 Range/Units 15:10 15:10 WBC (3.8-10.6) k/uL RBC (3.80-5.40) m/uL Hgb (11.4-16.0) gm/dL Hct (34.0-46.0) % MCV (80.0-100.0) fL MCH (25.0-35.0) pg MCHC (31.0-37.0) g/dL RDW (11.5-15.5) % Plt Count (150-450) k/uL Neutrophils % % Lymphocytes % % Monocytes % % Eosinophils % % Basophils % % Neutrophils # (1.3-7.7) k/uL Lymphocytes # (1.0-4.8) k/uL Monocytes # (0-1.0) k/uL Eosinophils # (0-0.7) k/uL Basophils # (0-0.2) k/uL Hypochromasia Anisocytosis PT 12.1 H (9.0-12.0) sec INR 1.2 (<1.1) APTT 23.0 (22.0-30.0) sec Sodium (137-145) mmol/L Potassium (3.5-5.1) mmol/L Chloride (98-107) mmol/L Carbon Dioxide (22-30) mmol/L Anion Gap mmol/L BUN (7-17) mg/dL Creatinine (0.52-1.04) mg/dL Est GFR (MDRD) Af Amer (>60 ml/min/1.73 sqM) Est GFR (MDRD) Non-Af (>60 ml/min/1.73 sqM) Glucose (74-99) mg/dL Plasma Lactic Acid Good (0.7-2.0) mmol/L Calcium (8.4-10.2) mg/dL Total Bilirubin (0.2-1.3) mg/dL AST (14-36) U/L ALT (9-52) U/L Alkaline Phosphatase (38-126) U/L Total Protein (6.3-8.2) g/dL Albumin (3.5-5.0) g/dL Urine Color Yellow Urine Appearance Turbid H (Clear) Urine pH 5.5 (5.0-8.0) Ur Specific [place] 1.014 (1.001-1.035) Urine Protein 2+ H (Negative) Urine Glucose (UA) Negative (Negative) Urine Ketones Negative (Negative) Urine Blood Large H (Negative) Urine Nitrite Negative (Negative) Urine Bilirubin Negative (Negative) Urine Urobilinogen <2.0 (<2.0) mg/dL Ur Leukocyte Esterase Large H (Negative) Urine RBC 80 H (0-5) /hpf Urine WBC >182 H (0-5) /hpf Urine WBC Clumps Few H (None) /hpf Ur Squamous Epith Cells 4 (0-4) /hpf Urine Bacteria Many H (None) /hpf Urine Yeast (Budding) Many H (None) /hpf - Radiology Data Radiology results: image reviewed (Chest x-ray shows possible basilar infiltrate. Difficult to exclude interstitial edema or component of pulmonary hypertension) Critical Care Time Critical Care Time: Yes Total Critical Care Time: 31 Disposition Clinical Impression: Sepsis, Urinary tract infection, Pneumonia Disposition: ADMITTED IP TO THIS HOSP Condition: Serious Referrals: Maria Luisa Bland MD [Primary Care Provider] - 1-2 days Decision Time: 17:12
[2016-07-13 15:36] LABS: INR 1.2 (<1.1); Prothrombin Time 12.1 sec (9.0-12.0)
[2016-07-13 15:39] LABS: Anisocytosis Slight; Basophils # (A) 0.1 k/uL (0-0.2); Basophils % (A) 0 %; CH 28.6; CHCM 30.4; Eosinophils % (A) 0 %; HCT 29.5 % (34.0-46.0); HGB 8.9 gm/dL (11.4-16.0); Hypochromasia Marked; Luc # (Auto) 0.35; Luc % (Auto) 2; Lymphocytes # (A) 1.1 k/uL (1.0-4.8); Lymphocytes % (A) 7 %; MCH 28.6 pg (25.0-35.0); MCHC 30.3 g/dL (31.0-37.0); MCV 94.3 fL (80.0-100.0); Mean Platelet Volume 7.8; Monocytes # (A) 1.1 k/uL (0-1.0); Monocytes % (A) 7 %; Neutrophils # (A) 14.1 k/uL (1.3-7.7); Neutrophils % (A) 84 %; RBC 3.12 m/uL (3.80-5.40); RDW 18.2 % (11.5-15.5); WBC 16.8 k/uL (3.8-10.6); WBC (Perox) 17.87
[2016-07-13 15:40] LABS: Calcium 8.3 mg/dL (8.4-10.2); Potassium 4.6 mmol/L (3.5-5.1); Total Bilirubin 0.4 mg/dL (0.2-1.3); Total Protein 5.7 g/dL (6.3-8.2)
[2016-07-13 15:58] LABS: Appearance,Urine Turbid (Clear); Bacteria,Urine Many /hpf; Bilirubin,Urine Negative (Negative); Glucose,Urine (UA) Negative (Negative); Ketones,Urine Negative (Negative); Leukocyte Esterase,Urine Large (Negative); Nitrite,Urine Negative (Negative); PH, Urine 5.5 (5.0-8.0); Particle Count 11938; Protein,Urine 2+ (Negative); RBC,Urine 80 /hpf (0-5); Specific Gravity,Urine 1.014 (1.001-1.035); Squamous Epithelial Cell,Urine 4 /hpf (0-4); UA Billing (MACRO vs. MICRO) MICRO; Urobilinogen,Urine <2.0 mg/dL (<2.0); WBC,Urine >182 /hpf (0-5)
[2016-07-13] MEDS ORDERED: LEVOFLOXACIN 750MG-D5W PMX 750 MG in DEXTROSE/WATER 1 150ML.BAG IVPB STA (16:38)
[2016-07-13] MEDS ORDERED: MORPHINE SULFATE 4 MG/ML SYRINGE IVP STA (16:50)
--- NOTE | 2016-07-13 16:52 | XR ---
EXAMINATION TYPE: XR chest 2V DATE OF EXAM: 07/13/2016 4:42 PM COMPARISON: Prior chest x-ray May HISTORY: Congestive heart failure TECHNIQUE: Frontal and lateral views of the chest are obtained. FINDINGS: The patient is rotated. The heart is enlarged. Central vascularity and interstitium are in creased. No evident pneumothorax. Thoracic stimulator lead is stable. There are overlying cardiac andrew ds. Left-sided PICC line is present, distal tip coursing towards the level of the superior vena cava. Underlying emphysematous changes are present. There are coronary artery calcifications. The aorta is dense. Patchy basilar density again noted. IMPRESSION: Emphysema, correlate to exclude pulmonary venous hypertension and interstitial edema. Di fficult to exclude basilar pneumonia. Follow-up recommended. Additional findings above.
[2016-07-13] MEDS ORDERED: PNEUMONIA PROTOCOL UTILIZED 1 EACH MISC PO PRN (17:12)
[2016-07-13] MEDS ORDERED: PIPERACILLIN-TAZOBACTAM 3.375 GM in DEXTROSE/WATER 1 50ML.BAG IVPB STA (17:12)
[2016-07-13] MEDS ORDERED: IPRATROPIUM-ALBUTEROL 3 ML NEB INHALATION PRN (17:12)
[2016-07-13] MEDS ORDERED: AZTREONAM 2 GM in SODIUM CHLORIDE 0.9% 100 ML IVPB STA (17:25)
[2016-07-13] MEDS ORDERED: methylPREDNISolone SOD SUCCI 125 MG/2 ML VIAL IV STA (17:26)
[2016-07-13] MEDS: SODIUM CHLORIDE 0.9% 1,000 ML IV SCH (17:29)
[2016-07-13] MEDS: IPRATROPIUM-ALBUTEROL 3 ML NEB INHALATION SCH (19:45)
[2016-07-13] MEDS ORDERED: MAGNESIUM HYDROXIDE 2,400 MG/10 ML CUP PO PRN (19:46)
[2016-07-13] MEDS ORDERED: INSULIN DETEMIR 100 UNIT/ML 10 ML VIAL SQ SCH (21:00)
[2016-07-13 21:27] LABS: Glucose,Whole Blood 265 mg/dL (75-99)
[2016-07-13] MEDS: ALPRAZolam 0.25 MG TAB PO SCH (21:44)
[2016-07-13] MEDS: LOSARTAN 50 MG TAB PO SCH (21:44)
[2016-07-13] MEDS: METOPROLOL SUCCINATE (ER) 50 MG TAB.ER.24H PO SCH (21:44)
[2016-07-13] MEDS: FERROUS SULFATE 325 MG TAB PO SCH (21:44)
[2016-07-13] MEDS: DOCUSATE 100 MG CAP PO SCH (21:44)
[2016-07-13] MEDS: INSULIN LISPRO (humaLOG) 300 UNIT/3 ML VIAL SQ SCH (21:45)
[2016-07-13] MEDS: MONTELUKAST 10 MG TAB PO SCH (21:45)
[2016-07-13] MEDS: POLYETHYLENE GLYCOL 3350 17 GM POWD.PACK PO SCH (21:45)
[2016-07-13] MEDS: PRAVASTATIN SODIUM 20 MG TAB PO SCH (21:45)
[2016-07-14] MEDS ORDERED: PIPERACILLIN-TAZOBACTAM 3.375 GM in DEXTROSE/WATER 1 50ML.BAG IVPB SCH
[2016-07-14] MEDS: AZTREONAM 2 GM in SODIUM CHLORIDE 0.9% 100 ML IVPB SCH ×4 (00:16→23:34)
[2016-07-14] MEDS: methylPREDNISolone SOD SUCCI 125 MG/2 ML VIAL IV SCH ×5 (00:16→23:34)
[2016-07-14] MEDS: SODIUM CHLORIDE 0.9% 1,000 ML IV SCH ×3 (02:20→21:52)
[2016-07-14] MEDS ORDERED: INSULIN LISPRO (humaLOG) 300 UNIT/3 ML VIAL SQ SCH ×3 (07:30→17:30)
[2016-07-14 08:02] LABS: Glucose,Whole Blood 450 mg/dL (75-99)
[2016-07-14 08:02] LABS: Glucose,Whole Blood 468 mg/dL (75-99)
[2016-07-14] MEDS: INSULIN LISPRO (humaLOG) 300 UNIT/3 ML VIAL SQ SCH ×3 (08:09→18:23)
[2016-07-14] MEDS: FUROSEMIDE 40 MG TAB PO SCH ×2 (08:11→17:12)
[2016-07-14] MEDS: DIGOXIN 125 MCG TAB PO SCH (08:11)
[2016-07-14] MEDS: DOCUSATE 100 MG CAP PO SCH ×2 (08:11→21:52)
[2016-07-14] MEDS: METOPROLOL SUCCINATE (ER) 50 MG TAB.ER.24H PO SCH ×2 (08:11→21:52)
[2016-07-14] MEDS: FERROUS SULFATE 325 MG TAB PO SCH ×2 (08:11→21:52)
[2016-07-14] MEDS: ALPRAZolam 0.25 MG TAB PO SCH ×2 (08:14→21:52)
[2016-07-14] MEDS: IPRATROPIUM-ALBUTEROL 3 ML NEB INHALATION SCH ×4 (08:20→20:15)
[2016-07-14] MEDS ORDERED: INSULIN DETEMIR 100 UNIT/ML 10 ML VIAL SQ SCH (09:00)
[2016-07-14 11:50] LABS: Glucose,Whole Blood 514 mg/dL (75-99)
[2016-07-14 11:50] LABS: Glucose,Whole Blood 501 mg/dL (75-99)
[2016-07-14] MEDS ORDERED: INSULIN REGULAR BOLUS (FROM DRIP BAG) IV ONE (11:58)
[2016-07-14] MEDS: INSULIN REGULAR 100 UNIT in SODIUM CHLORIDE 0.9% 100 ML IV SCH ×3 (12:22→22:38)
[2016-07-14 13:07] LABS: Glucose,Whole Blood 498 mg/dL (75-99)
[2016-07-14 13:43] LABS: Glucose,Whole Blood 455 mg/dL (75-99)
[2016-07-14 14:06] LABS: Glucose,Whole Blood 440 mg/dL (75-99)
[2016-07-14 14:59] LABS: Glucose,Whole Blood 435 mg/dL (75-99)
[2016-07-14 15:07] LABS: Glucose,Whole Blood 455 mg/dL (75-99)
--- NOTE | 2016-07-14 15:34 | XR ---
EXAMINATION TYPE: XR chest 1V portable DATE OF EXAM: 07/14/2016 2:35 PM COMPARISON: Prior chest x-ray 13 Jul 2016 HISTORY: Pneumonia TECHNIQUE: Single frontal view of the chest is obtained. FINDINGS: The patient is rotated, heart remains enlarged. Interstitium is increased, patchy basilar density is noted. Central venous catheter shows the distal tip, PICC line is positioned such that the tip is near the superior vena cava level. Thoracic stimulator lead is present. IMPRESSION: Findings are similar to prior exam. There may be basilar atelectasis, correlate to exclu de pneumonia.
[2016-07-14 15:36] LABS: Glucose,Whole Blood 369 mg/dL (75-99)
[2016-07-14 16:11] LABS: Glucose,Whole Blood 346 mg/dL (75-99)
[2016-07-14 16:58] LABS: Glucose,Whole Blood 349 mg/dL (75-99)
--- NOTE | 2016-07-14 17:23 | P.HPIM ---
History of Present Illness H&P Date: 07/14/16 Chief Complaint: cough, shortness of breath and weakness Patient is a pleasant 76-year-old female presenting to the emergency department with weakness and cough. Patient was discharged from the hospital a month ago with GI bleed and coagulation problems. Patient is on Coumadin with history of blood clots in her leg. She was admitted to [facility], she was maintained on oral Bactrim and IV vancomycin, patient condition started to worsen. Patient has been more sick over the past 10 days. Patient has cough with productive clear sputum. No chest pain. Patient is weak and fatigued. Last admission patient had evidence of pneumonia, she also had infected surgical wound in the left groin area Past Medical History Past Medical History: Atrial Fibrillation, Asthma, Heart Failure, CVA/TIA, Diabetes Mellitus, Deep Vein Thrombosis (DVT), GI Bleed, Hyperlipidemia, Hypertension, Pneumonia Additional Past Medical History / Comment(s): Pt was recently admitted 04/27/16 with L leg ischemia, aucte blood loss anemia-suspect lower GI bleed, acute on chronic CHF, pneumonia with sepsis, exacerbation COPD. Other hx; CVAs-if tired will have slight speech change and chokes easily, chronic CHF, IDDM type II, bilateral cataracts, chronic anemia, 2015 vented for 3 months. Was discharged on to the [facility]. Re-admitted to hospital with pneumonia and groin infection was d/c back to [facility] 06/18/2016. History of Any Multi-Drug Resistant Organisms: MRSA Date of last positivie culture/infection: 06/02/16 MDRO Source:: BRONCH WASH Past Surgical History: Back Surgery, Breast Surgery, Hysterectomy Additional Past Surgical History / Comment(s): 05/18/16 thrombectomy/ endartectomy L common femoral artery, thoracic surgery in which a drainage tube was placed in her R lung due to pneumothorax, cyst removed from breast, L hip pain stimulator, EGD 03/2016 at [facility], melanoma removals. Past Anesthesia/Blood Transfusion Reactions: No Reported Reaction Additional Past Anesthesia/Blood Transfusion Reaction / Comment(s): Pt received blood with last admission without reaction. Past Psychological History: No Psychological Hx Reported Additional Psychological History / Comment(s): Pt currently living at [facility]. She just started standing with rails and assist. She is very weak. Has become during previous hospital stay. Tobacco smoker until 3 years ago. No experience. No travel history. No animal exposures Smoking Status: Former smoker Past Alcohol Use History: None Reported Additional Past Alcohol Use History / Comment(s): Pt started smoking in 1960 and quit in 2014 Past Drug Use History: None Reported - Past Family History Mother Family Medical History: Diabetes Mellitus Father Additional Family Medical History / Comment(s): Father had heart problems. Medications and Allergies Home Medications Medication Instructions Recorded Confirmed Type Losartan Potassium [Cozaar] 50 mg PO HS 04/27/16 07/13/16 History Metoprolol Succinate [Toprol XL] 200 mg PO BID 04/27/16 07/13/16 History Montelukast Sodium [Singulair] 10 mg PO HS 04/27/16 07/13/16 History Pravastatin Sodium [Pravachol] 20 mg PO HS 04/27/16 07/13/16 History ALPRAZolam [Xanax] 0.25 mg PO Q12HR 07/13/16 07/13/16 History Budesonide [Pulmicort] 1 mg INHALATION RT-BID 07/13/16 07/13/16 History Furosemide [Lasix] 40 mg PO BID 07/13/16 07/13/16 History INSULIN LISPRO (humaLOG) [humaLOG 8 unit SQ AC-SUPPER 07/13/16 07/13/16 History (formulary)] INSULIN LISPRO (humaLOG) [humaLOG 10 unit SQ AC-BRKFST 07/13/16 07/13/16 History (formulary)] INSULIN LISPRO (humaLOG) [humaLOG 10 unit SQ AC-LUNCH 07/13/16 07/13/16 History (formulary)] Insulin Detemir [Levemir] 25 unit SQ HS 07/13/16 07/13/16 History Milk Of Magnesia 1200mg/15ml 2,400 mg PO Q72H PRN 07/13/16 07/13/16 History Allergies Allergy/AdvReac Type Severity Reaction Status Date / Time Penicillins Allergy Rash/Hives Verified 07/13/16 16:46 Physical Exam Vitals: Vital Signs Temp Pulse Pulse Resp BP BP Pulse Ox 07/14/16 16:30 88 07/14/16 16:21 88 07/14/16 15:00 97.5 F L 80 18 94/57 91 L 07/14/16 11:43 88 07/14/16 11:28 84 07/14/16 07:00 97.2 F L 67 18 141/63 90 L 07/14/16 03:00 89 07/13/16 22:00 96.9 F L 95 20 144/59 89 L 07/13/16 21:35 94 07/13/16 19:55 84 07/13/16 19:46 80 07/13/16 19:00 99.2 F 93 22 165/63 90 L 07/13/16 17:32 99.0 F 98 20 133/57 93 L Intake and Output 07/14/16 07/14/16 07/14/16 06:59 14:59 22:59 Intake Total 400 690 50.116 Balance 400 690 50.116 Intake: Intake, IV Titration 90 50.116 Amount Insulin Regular 100 unit 90 50.116 In Sodium Chloride 0.9% 100 ml @ Titrate IV .Q0M [facility] Rx#:[id number] Oral 400 600 Other: Voiding Method Bedpan Bedpan # Voids 1 4 # Bowel Movements 1 In general patient is alert and oriented 3 in no apparent distress HEENT head normocephalic and atraumatic Neck is supple no JVD no goiter no lymphadenopathy Cardiac exam reveals regular heart sounds S1 and S2 no gallops no murmurs Chest exam reveals coarse crackles in both lung olivares, no wheezing Abdomen is soft nontender no organomegaly with normal bowel sounds Extremity exam reveals no edema no cyanosis or clubbing Neurological examination reveals no gross deficit Results CBC & Chem 7: 07/13/16 15:10 07/13/16 15:10 Labs: Abnormal Lab Results - Last 24 Hours (Table) 07/13/16 07/13/16 07/14/16 Range/Units 15:10 21:08 07:53 POC Glucose (mg/dL) 265 H 468 H (75-99) mg/dL Hemoglobin A1c 7.0 H (4.2-6.1) % 07/14/16 07/14/16 07/14/16 Range/Units 07:54 11:47 11:48 POC Glucose (mg/dL) 450 H 514 H 501 H (75-99) mg/dL Hemoglobin A1c (4.2-6.1) % 07/14/16 07/14/16 07/14/16 Range/Units 12:56 13:34 14:04 POC Glucose (mg/dL) 498 H 455 H 440 H (75-99) mg/dL Hemoglobin A1c (4.2-6.1) % 07/14/16 07/14/16 07/14/16 Range/Units 14:39 15:05 15:32 POC Glucose (mg/dL) 435 H 455 H 369 H (75-99) mg/dL Hemoglobin A1c (4.2-6.1) % 07/14/16 07/14/16 Range/Units 16:05 16:37 POC Glucose (mg/dL) 346 H 349 H (75-99) mg/dL Hemoglobin A1c (4.2-6.1) % Microbiology - Last 24 Hours (Table) 07/13/16 15:10 Blood Culture Gram Stain - Preliminary Blood 07/13/16 15:10 Urine Culture - Preliminary Urine,Voided Thrombosis Risk Factor Assmnt - Choose All That Apply Any of the Below Risk Factors Present?: Yes Each Factor Represents 1 point: Obesity (BMI >25) Other Risk Factors: Yes Each Risk Factor Represents 2 Points: Patient confined to bed Each Risk Factor Represents 3 Points: Age 75 years or older Thrombosis Risk Factor Assessment Total Risk Factor Score: 6 Thrombosis Risk Factor Assessment Level: High Risk Assessment and Plan Plan: #1 acute systolic congestive heart failure exacerbation #2 bibasilar infiltrate suggestive of pneumonia #3 urinary tract infection #4 left groin surgical wound infection #5 atrial fibrillation #6 recent left lower extremity arterial occlusion requiring surgical intervention by vascular surgery Dr. García #7 diabetes mellitus type 2 #8 poor nutritional status was decreased albumin 2.6 will have a nutrition consult #9 anemia hemoglobin 8.9 will monitor #10 acute exacerbation of chronic obstructive pulmonary disease At this time patient was started on aztreonam and Levaquin in the emergency room will continue Will consult Dr. Wild Patient was also started on IV Solu-Medrol for COPD exacerbation, patient is well known to Dr. Pittman Will consult him for follow-up Will recheck labs in a.m. Will follow closely Prognosis is guarded due to multiple medical problems
[2016-07-14 17:33] LABS: Glucose,Whole Blood 296 mg/dL (75-99)
[2016-07-14 17:59] LABS: Glucose,Whole Blood 290 mg/dL (75-99)
[2016-07-14] MEDS ORDERED: LEVOFLOXACIN 750MG-D5W PMX 750 MG in DEXTROSE/WATER 1 150ML.BAG IVPB SCH (18:00)
[2016-07-14] MEDS ORDERED: WARFARIN 5 MG TAB PO ONE (18:00)
[2016-07-14 18:03] LABS: Glucose,Whole Blood 254 mg/dL (75-99)
[2016-07-14 18:43] LABS: Glucose,Whole Blood 240 mg/dL (75-99)
[2016-07-14 20:39] LABS: Glucose,Whole Blood 202 mg/dL (75-99)
[2016-07-14] MEDS: POLYETHYLENE GLYCOL 3350 17 GM POWD.PACK PO SCH (21:52)
[2016-07-14] MEDS: MONTELUKAST 10 MG TAB PO SCH (21:52)
[2016-07-14] MEDS: LOSARTAN 50 MG TAB PO SCH (21:52)
[2016-07-14] MEDS: ENOXAPARIN 100 MG/ML SYRINGE SQ SCH (21:52)
[2016-07-14] MEDS: PRAVASTATIN SODIUM 20 MG TAB PO SCH (21:52)
[2016-07-14 22:29] LABS: Glucose,Whole Blood 207 mg/dL (75-99)
[2016-07-15 00:56] LABS: Glucose,Whole Blood 198 mg/dL (75-99)
[2016-07-15 02:51] LABS: Glucose,Whole Blood 199 mg/dL (75-99)
[2016-07-15 04:45] LABS: Glucose,Whole Blood 196 mg/dL (75-99)
[2016-07-15] MEDS: SODIUM CHLORIDE 0.9% 1,000 ML IV SCH ×3 (05:27→23:15)
[2016-07-15] MEDS: methylPREDNISolone SOD SUCCI 125 MG/2 ML VIAL IV SCH ×4 (06:32→23:13)
[2016-07-15 06:33] LABS: Glucose,Whole Blood 198 mg/dL (75-99)
[2016-07-15] MEDS: IPRATROPIUM-ALBUTEROL 3 ML NEB INHALATION SCH ×4 (07:45→20:06)
[2016-07-15] MEDS: AZTREONAM 2 GM in SODIUM CHLORIDE 0.9% 100 ML IVPB SCH ×2 (07:56→15:45)
[2016-07-15] MEDS: INSULIN LISPRO (humaLOG) 300 UNIT/3 ML VIAL SQ SCH ×3 (07:56→17:39)
[2016-07-15] MEDS: METOPROLOL SUCCINATE (ER) 50 MG TAB.ER.24H PO SCH ×2 (08:32→21:40)
[2016-07-15] MEDS: FUROSEMIDE 40 MG TAB PO SCH (08:32)
[2016-07-15] MEDS: ENOXAPARIN 100 MG/ML SYRINGE SQ SCH (08:32)
[2016-07-15] MEDS: DIGOXIN 125 MCG TAB PO SCH (08:32)
[2016-07-15] MEDS: FERROUS SULFATE 325 MG TAB PO SCH ×2 (08:32→21:40)
[2016-07-15] MEDS: ALPRAZolam 0.25 MG TAB PO SCH ×2 (08:32→21:40)
[2016-07-15] MEDS: DOCUSATE 100 MG CAP PO SCH ×2 (08:32→21:40)
[2016-07-15 08:33] LABS: Glucose,Whole Blood 204 mg/dL (75-99)
[2016-07-15 10:27] LABS: Anisocytosis Slight; Basophils % (A) 0 %; CH 28.2; CHCM 29.4; Eosinophils % (A) 0 %; HDW 3.37; HGB 8.9 gm/dL (11.4-16.0); Hypochromasia Marked; Luc # (Auto) 0.07; Luc % (Auto) 0; Lymphocytes # (A) 0.7 k/uL (1.0-4.8); Lymphocytes % (A) 3 %; MCH 30.5 pg (25.0-35.0); MCHC 31.6 g/dL (31.0-37.0); MCV 96.3 fL (80.0-100.0); Macrocytosis Slight; Mean Platelet Volume 8.1; Monocytes # (A) 0.5 k/uL (0-1.0); Monocytes % (A) 2 %; Neutrophils # (A) 20.7 k/uL (1.3-7.7); Neutrophils % (A) 94 %; RBC 2.91 m/uL (3.80-5.40); RDW 17.8 % (11.5-15.5); WBC (Perox) 22.21
[2016-07-15 10:28] LABS: Calcium 7.8 mg/dL (8.4-10.2); Potassium 4.4 mmol/L (3.5-5.1); Total Bilirubin 0.3 mg/dL (0.2-1.3); Total Protein 5.7 g/dL (6.3-8.2)
[2016-07-15 10:30] LABS: INR 1.3 (<1.1); Prothrombin Time 13.2 sec (9.0-12.0)
[2016-07-15 10:32] LABS: Glucose,Whole Blood 330 mg/dL (75-99)
--- NOTE | 2016-07-15 11:49 | P.CNPUL ---
History of Present Illness Consult date: 07/15/16 Requesting physician: Elda Parrish Reason for consult: pneumonia Chief complaint: Shortness of breath History of present illness: This is a 76-year-old female patient is being evaluated and examined today on the fourth floor. This patient is well-known to our services. This patient was recently hospitalized multiple times over the last few months with pneumonia , significant bronchiectasis, COPD exacerbation, GI bleed, CHF exacerbation and left leg ischemia status post thrombectomy. Patient was recently admitted to [facility] after discharge from hospital. Patient was currently on 3 L of oxygen at the [facility]. The patient was transferred here from the [facility] with increasing weakness, increasing shortness of breath, productive cough and decreased oral intake. The patient has had this going on for about 10 days. The patient was admitted with sepsis, urinary tract infection and pneumonia. Chest x-ray was reviewed. Upon examination the patient's resting up in bed on 4 L of supplemental oxygen via nasal cannula. She continues to sound congested and has a cough that is productive with white sputum. Review of Systems 14 point review of systems was completed and is negative other than what's noted in the HPI. Past Medical History Past Medical History: Atrial Fibrillation, Asthma, Heart Failure, CVA/TIA, Diabetes Mellitus, Deep Vein Thrombosis (DVT), GI Bleed, Hyperlipidemia, Hypertension, Pneumonia Additional Past Medical History / Comment(s): Pt was recently admitted 04/27/16 with L leg ischemia, aucte blood loss anemia-suspect lower GI bleed, acute on chronic CHF, pneumonia with sepsis, exacerbation COPD. Other hx; CVAs-if tired will have slight speech change and chokes easily, chronic CHF, IDDM type II, bilateral cataracts, chronic anemia, 2015 vented for 3 months. Was discharged on to the [facility]. Re-admitted to hospital with pneumonia and groin infection was d/c back [facility] 06/18/2016. History of Any Multi-Drug Resistant Organisms: MRSA Date of last positivie culture/infection: 06/02/16 MDRO Source:: BRONCH WASH Past Surgical History: Back Surgery, Breast Surgery, Hysterectomy Additional Past Surgical History / Comment(s): 05/18/16 thrombectomy/ endartectomy L common femoral artery, thoracic surgery in which a drainage tube was placed in her R lung due to pneumothorax, cyst removed from breast, L hip pain stimulator, EGD 03/2016 at [facility], melanoma removals. Past Anesthesia/Blood Transfusion Reactions: No Reported Reaction Additional Past Anesthesia/Blood Transfusion Reaction / Comment(s): Pt received blood with last admission without reaction. Past Psychological History: No Psychological Hx Reported Additional Psychological History / Comment(s): Pt currently living at [facility]. She just started standing with rails and assist. She is very weak. Has become during previous hospital stay. Tobacco smoker until 3 years ago. No experience. No travel history. No animal exposures Smoking Status: Former smoker Past Alcohol Use History: None Reported Additional Past Alcohol Use History / Comment(s): Pt started smoking in 196 and quit in 2014 Past Drug Use History: None Reported - Past Family History Mother Family Medical History: Diabetes Mellitus Father Additional Family Medical History / Comment(s): Father had heart problems. Medications and Allergies Home Medications Medication Instructions Recorded Confirmed Type Losartan Potassium [Cozaar] 50 mg PO HS 04/27/16 07/13/16 History Metoprolol Succinate [Toprol XL] 200 mg PO BID 04/27/16 07/13/16 History Montelukast Sodium [Singulair] 10 mg PO HS 04/27/16 07/13/16 History Pravastatin Sodium [Pravachol] 20 mg PO HS 04/27/16 07/13/16 History ALPRAZolam [Xanax] 0.25 mg PO Q12HR 07/13/16 07/13/16 History Budesonide [Pulmicort] 1 mg INHALATION RT-BID 07/13/16 07/13/16 History Furosemide [Lasix] 40 mg PO BID 07/13/16 07/13/16 History INSULIN LISPRO (humaLOG) [humaLOG 8 unit SQ AC-SUPPER 07/13/16 07/13/16 History (formulary)] INSULIN LISPRO (humaLOG) [humaLOG 10 unit SQ AC-BRKFST 07/13/16 07/13/16 History (formulary)] INSULIN LISPRO (humaLOG) [humaLOG 10 unit SQ AC-LUNCH 07/13/16 07/13/16 History (formulary)] Insulin Detemir [Levemir] 25 unit SQ HS 07/13/16 07/13/16 History Milk Of Magnesia 1200mg/15ml 2,400 mg PO Q72H PRN 07/13/16 07/13/16 History Allergies Allergy/AdvReac Type Severity Reaction Status Date / Time Penicillins Allergy Rash/Hives Verified 07/13/16 16:46 Physical Exam Vitals: Vital Signs Temp Pulse Pulse Resp BP Pulse Ox 07/15/16 07:57 60 07/15/16 07:45 60 96 07/15/16 07:00 96.5 F L 64 18 132/78 93 L 07/14/16 23:00 97.6 F 92 20 132/64 89 L 07/14/16 20:30 87 07/14/16 20:16 87 07/14/16 16:30 88 07/14/16 16:21 88 07/14/16 15:00 97.5 F L 80 18 94/57 91 L 07/14/16 11:43 88 Intake and Output 07/14/16 07/15/16 07/15/16 22:59 06:59 14:59 Intake Total 1141.000 341.483 22.033 Balance 1141.000 341.483 22.033 Intake: Intake, IV Titration 101.000 41.483 22.033 Amount Insulin Regular 100 unit 101.000 41.483 22.033 In Sodium Chloride 0.9% 100 ml @ Titrate IV .Q0M [facility] Rx#:[id number] Oral 1040 300 Other: Voiding Method Bedpan # Voids 2 1 # Bowel Movements 1 GENERAL EXAM: Alert, active, comfortable in no apparent distress. HEAD: Normocephalic. EYES: Normal reaction of pupils, equal size. NOSE: Clear with pink turbinates. THROAT: No erythema or exudates. NECK: No masses, no JVD. CHEST: No chest wall deformity. LUNGS: Lung sounds noted to be bilaterally coarse and congested, scattered rhonchi and crackles. Basis diminished. CVS: S1 and S2 normal with no audible mumurs, regular rhythm. ABDOMEN: No hepatosplenomegaly, normal bowel sounds, no guarding or rigidity. EXTREMITIES: +1-2 edema noted, pedal pulses palpable. SKIN: No rashes CENTRAL NERVOUS SYSTEM: No focal deficits, tone is normal in all 4 extremities. Results - Laboratory Findings CBC and BMP: 07/15/16 10:00 07/15/16 10:00 PT/INR, D-dimer PT 13.2 sec (9.0-12.0) H 07/15/16 10:00 INR 1.3 (<1.1) 07/15/16 10:00 Abnormal lab findings: Abnormal Labs 07/13/16 07/13/16 07/13/16 15:10 15:10 15:10 WBC 16.8 H RBC 3.12 L Hgb 8.9 L Hct 29.5 L MCHC 30.3 L RDW 18.2 H Neutrophils # 14.1 H Lymphocytes # Monocytes # 1.1 H PT 12.1 H Sodium 136 L BUN 38 H Creatinine 1.43 H Glucose 168 H POC Glucose (mg/dL) Hemoglobin A1c Calcium 8.3 L Total Protein 5.7 L Albumin 2.6 L Urine Appearance Urine Protein Urine Blood Ur Leukocyte Esterase Urine RBC Urine WBC Urine WBC Clumps Urine Bacteria Urine Yeast (Budding) 07/13/16 07/13/16 07/13/16 15:10 15:10 21:08 WBC RBC Hgb Hct MCHC RDW Neutrophils # Lymphocytes # Monocytes # PT Sodium BUN Creatinine Glucose POC Glucose (mg/dL) 265 H Hemoglobin A1c 7.0 H Calcium Total Protein Albumin Urine Appearance Turbid H Urine Protein 2+ H Urine Blood Large H Ur Leukocyte Esterase Large H Urine RBC 80 H Urine WBC >182 H Urine WBC Clumps Few H Urine Bacteria Many H Urine Yeast (Budding) Many H 07/14/16 07/14/16 07/14/16 07:53 07:54 11:47 WBC RBC Hgb Hct MCHC RDW Neutrophils # Lymphocytes # Monocytes # PT Sodium BUN Creatinine Glucose POC Glucose (mg/dL) 468 H 450 H 514 H Hemoglobin A1c Calcium Total Protein Albumin Urine Appearance Urine Protein Urine Blood Ur Leukocyte Esterase Urine RBC Urine WBC Urine WBC Clumps Urine Bacteria Urine Yeast (Budding) 07/14/16 07/14/16 07/14/16 11:48 12:56 13:34 WBC RBC Hgb Hct MCHC RDW Neutrophils # Lymphocytes # Monocytes # PT Sodium BUN Creatinine Glucose POC Glucose (mg/dL) 501 H 498 H 455 H Hemoglobin A1c Calcium Total Protein Albumin Urine Appearance Urine Protein Urine Blood Ur Leukocyte Esterase Urine RBC Urine WBC Urine WBC Clumps Urine Bacteria Urine Yeast (Budding) 07/14/16 07/14/16 07/14/16 14:04 14:39 15:05 WBC RBC Hgb Hct MCHC RDW Neutrophils # Lymphocytes # Monocytes # PT Sodium BUN Creatinine Glucose POC Glucose (mg/dL) 440 H 435 H 455 H Hemoglobin A1c Calcium Total Protein Albumin Urine Appearance Urine Protein Urine Blood Ur Leukocyte Esterase Urine RBC Urine WBC Urine WBC Clumps Urine Bacteria Urine Yeast (Budding) 07/14/16 07/14/16 07/14/16 15:32 16:05 16:37 WBC RBC Hgb Hct MCHC RDW Neutrophils # Lymphocytes # Monocytes # PT Sodium BUN Creatinine Glucose POC Glucose (mg/dL) 369 H 346 H 349 H Hemoglobin A1c Calcium Total Protein Albumin Urine Appearance Urine Protein Urine Blood Ur Leukocyte Esterase Urine RBC Urine WBC Urine WBC Clumps Urine Bacteria Urine Yeast (Budding) 07/14/16 07/14/16 07/14/16 17:07 17:37 18:00 WBC RBC Hgb Hct MCHC RDW Neutrophils # Lymphocytes # Monocytes # PT Sodium BUN Creatinine Glucose POC Glucose (mg/dL) 296 H 290 H 254 H Hemoglobin A1c Calcium Total Protein Albumin Urine Appearance Urine Protein Urine Blood Ur Leukocyte Esterase Urine RBC Urine WBC Urine WBC Clumps Urine Bacteria Urine Yeast (Budding) 07/14/16 07/14/16 07/14/16 18:41 20:38 22:25 WBC RBC Hgb Hct MCHC RDW Neutrophils # Lymphocytes # Monocytes # PT Sodium BUN Creatinine Glucose POC Glucose (mg/dL) 240 H 202 H 207 H Hemoglobin A1c Calcium Total Protein Albumin Urine Appearance Urine Protein Urine Blood Ur Leukocyte Esterase Urine RBC Urine WBC Urine WBC Clumps Urine Bacteria Urine Yeast (Budding) 07/15/16 07/15/16 07/15/16 00:46 02:41 04:35 WBC RBC Hgb Hct MCHC RDW Neutrophils # Lymphocytes # Monocytes # PT Sodium BUN Creatinine Glucose POC Glucose (mg/dL) 198 H 199 H 196 H Hemoglobin A1c Calcium Total Protein Albumin Urine Appearance Urine Protein Urine Blood Ur Leukocyte Esterase Urine RBC Urine WBC Urine WBC Clumps Urine Bacteria Urine Yeast (Budding) 07/15/16 07/15/16 07/15/16 06:29 08:30 10:00 WBC 22.0 H RBC 2.91 L Hgb 8.9 L Hct 28.0 L MCHC RDW 17.8 H Neutrophils # 20.7 H Lymphocytes # 0.7 L Monocytes # PT Sodium BUN Creatinine Glucose POC Glucose (mg/dL) 198 H 204 H Hemoglobin A1c Calcium Total Protein Albumin Urine Appearance Urine Protein Urine Blood Ur Leukocyte Esterase Urine RBC Urine WBC Urine WBC Clumps Urine Bacteria Urine Yeast (Budding) 07/15/16 07/15/16 07/15/16 10:00 10:00 10:28 WBC RBC Hgb Hct MCHC RDW Neutrophils # Lymphocytes # Monocytes # PT 13.2 H Sodium 134 L BUN 53 H Creatinine 1.60 H Glucose 309 H POC Glucose (mg/dL) 330 H Hemoglobin A1c Calcium 7.8 L Total Protein 5.7 L Albumin 2.6 L Urine Appearance Urine Protein Urine Blood Ur Leukocyte Esterase Urine RBC Urine WBC Urine WBC Clumps Urine Bacteria Urine Yeast (Budding) - Diagnostic Findings Chest x-ray: report reviewed, image reviewed Assessment and Plan Plan: Assessment Pneumonia with sepsis Acute exacerbation of chronic obstructive pulmonary disease Acute on chronic hypoxic respiratory failure Acute on chronic systolic congestive heart failure Chronic atrial fibrillation Diabetes mellitus insulin-dependent Left groin Wound/infection Plan Medications have been reviewed and will be continued as ordered. Continue with pulmonary hygiene, coughing and deep breathing exercises, and supportive care. Supplemental oxygen to maintain oxygen saturations of 92% or better. Continue with IV antibiotics and IV steroids. Continue nebulizer treatments. GI and DVT prophylaxis. We will obtain a sputum culture. Infectious disease also on consult. We will continue to monitor labs/results and adjust treatment as necessary. Further recommendations pending. I performed an examination of the patient and discussed their management with the nurse practitioner. I have reviewed the nurse practitioner's note and agree with the documented findings and plan of care.
[2016-07-15 12:43] LABS: Glucose,Whole Blood 306 mg/dL (75-99)
[2016-07-15] MEDS: guaiFENesin 600 MG TABLET.ER PO SCH ×2 (12:54→21:40)
[2016-07-15] MEDS: INSULIN REGULAR 100 UNIT in SODIUM CHLORIDE 0.9% 100 ML IV SCH (13:14)
[2016-07-15] MEDS: HYDROcodone/APAP 10-325MG 1 EACH TAB PO PRN (14:05)
--- NOTE | 2016-07-15 14:30 | P.PN ---
Subjective Patient presented to the hospital with worsening shortness of breath with productive cough and weakness. She is being treated for pneumonia and COPD exacerbation. Pulmonary service is following in planning bronchoscopy for tomorrow. Patient still reporting regarding a productive cough. Denies any chest pain. Denies any nausea or vomiting. Denies any bowel movement changes or urinary symptoms. Objective - Vital Signs Vital signs: Vital Signs Temp 96.5 F L 07/15/16 07:00 Pulse 68 07/15/16 12:09 Resp 18 07/15/16 07:00 BP 132/78 07/15/16 07:00 Pulse Ox 96 07/15/16 07:45 Intake & Output 07/14/16 07/15/16 07/15/16 18:59 06:59 18:59 Intake Total 1374.949 797.534 59.517 Balance 1374.949 797.534 59.517 Intake: Intake, IV Titration 174.949 57.534 59.517 Amount Insulin Regular 100 unit 174.949 57.534 59.517 In Sodium Chloride 0.9% 100 ml @ Titrate IV .Q0M [facility] Rx#:[id number] Oral 1200 740 Other: Voiding Method Bedpan Bedpan # Voids 2 1 # Bowel Movements 1 - Exam Head normocephalic Neck supple Lungs coarse breath sounds noted bilaterally Heart regular rate and rhythm S1-S2, no rub or gallop Abdomen is soft nontender nondistended positive bowel sounds no hepatosplenomegaly Extremities no edema. Left groin wound site packing in place there is no redness or drainage noted Neuro alert and orientated to 3 - Labs CBC & Chem 7: 07/15/16 10:00 07/15/16 10:00 Labs: Abnormal Lab Results - Last 24 Hours (Table) 07/14/16 07/14/16 07/14/16 Range/Units 14:39 15:05 15:32 WBC (3.8-10.6) k/uL RBC (3.80-5.40) m/uL Hgb (11.4-16.0) gm/dL Hct (34.0-46.0) % RDW (11.5-15.5) % Neutrophils # (1.3-7.7) k/uL Lymphocytes # (1.0-4.8) k/uL PT (9.0-12.0) sec Sodium (137-145) mmol/L BUN (7-17) mg/dL Creatinine (0.52-1.04) mg/dL Glucose (74-99) mg/dL POC Glucose (mg/dL) 435 H 455 H 369 H (75-99) mg/dL Calcium (8.4-10.2) mg/dL Total Protein (6.3-8.2) g/dL Albumin (3.5-5.0) g/dL 07/14/16 07/14/16 07/14/16 Range/Units 16:05 16:37 17:07 WBC (3.8-10.6) k/uL RBC (3.80-5.40) m/uL Hgb (11.4-16.0) gm/dL Hct (34.0-46.0) % RDW (11.5-15.5) % Neutrophils # (1.3-7.7) k/uL Lymphocytes # (1.0-4.8) k/uL PT (9.0-12.0) sec Sodium (137-145) mmol/L BUN (7-17) mg/dL Creatinine (0.52-1.04) mg/dL Glucose (74-99) mg/dL POC Glucose (mg/dL) 346 H 349 H 296 H (75-99) mg/dL Calcium (8.4-10.2) mg/dL Total Protein (6.3-8.2) g/dL Albumin (3.5-5.0) g/dL 07/14/16 07/14/16 07/14/16 Range/Units 17:37 18:00 18:41 WBC (3.8-10.6) k/uL RBC (3.80-5.40) m/uL Hgb (11.4-16.0) gm/dL Hct (34.0-46.0) % RDW (11.5-15.5) % Neutrophils # (1.3-7.7) k/uL Lymphocytes # (1.0-4.8) k/uL PT (9.0-12.0) sec Sodium (137-145) mmol/L BUN (7-17) mg/dL Creatinine (0.52-1.04) mg/dL Glucose (74-99) mg/dL POC Glucose (mg/dL) 290 H 254 H 240 H (75-99) mg/dL Calcium (8.4-10.2) mg/dL Total Protein (6.3-8.2) g/dL Albumin (3.5-5.0) g/dL 07/14/16 07/14/16 07/15/16 Range/Units 20:38 22:25 00:46 WBC (3.8-10.6) k/uL RBC (3.80-5.40) m/uL Hgb (11.4-16.0) gm/dL Hct (34.0-46.0) % RDW (11.5-15.5) % Neutrophils # (1.3-7.7) k/uL Lymphocytes # (1.0-4.8) k/uL PT (9.0-12.0) sec Sodium (137-145) mmol/L BUN (7-17) mg/dL Creatinine (0.52-1.04) mg/dL Glucose (74-99) mg/dL POC Glucose (mg/dL) 202 H 207 H 198 H (75-99) mg/dL Calcium (8.4-10.2) mg/dL Total Protein (6.3-8.2) g/dL Albumin (3.5-5.0) g/dL 07/15/16 07/15/16 07/15/16 Range/Units 02:41 04:35 06:29 WBC (3.8-10.6) k/uL RBC (3.80-5.40) m/uL Hgb (11.4-16.0) gm/dL Hct (34.0-46.0) % RDW (11.5-15.5) % Neutrophils # (1.3-7.7) k/uL Lymphocytes # (1.0-4.8) k/uL PT (9.0-12.0) sec Sodium (137-145) mmol/L BUN (7-17) mg/dL Creatinine (0.52-1.04) mg/dL Glucose (74-99) mg/dL POC Glucose (mg/dL) 199 H 196 H 198 H (75-99) mg/dL Calcium (8.4-10.2) mg/dL Total Protein (6.3-8.2) g/dL Albumin (3.5-5.0) g/dL 07/15/16 07/15/16 07/15/16 Range/Units 08:30 10:00 10:00 WBC 22.0 H (3.8-10.6) k/uL RBC 2.91 L (3.80-5.40) m/uL Hgb 8.9 L (11.4-16.0) gm/dL Hct 28.0 L (34.0-46.0) % RDW 17.8 H (11.5-15.5) % Neutrophils # 20.7 H (1.3-7.7) k/uL Lymphocytes # 0.7 L (1.0-4.8) k/uL PT (9.0-12.0) sec Sodium 134 L (137-145) mmol/L BUN 53 H (7-17) mg/dL Creatinine 1.60 H (0.52-1.04) mg/dL Glucose 309 H (74-99) mg/dL POC Glucose (mg/dL) 204 H (75-99) mg/dL Calcium 7.8 L (8.4-10.2) mg/dL Total Protein 5.7 L (6.3-8.2) g/dL Albumin 2.6 L (3.5-5.0) g/dL 07/15/16 07/15/16 07/15/16 Range/Units 10:00 10:28 12:35 WBC (3.8-10.6) k/uL RBC (3.80-5.40) m/uL Hgb (11.4-16.0) gm/dL Hct (34.0-46.0) % RDW (11.5-15.5) % Neutrophils # (1.3-7.7) k/uL Lymphocytes # (1.0-4.8) k/uL PT 13.2 H (9.0-12.0) sec Sodium (137-145) mmol/L BUN (7-17) mg/dL Creatinine (0.52-1.04) mg/dL Glucose (74-99) mg/dL POC Glucose (mg/dL) 330 H 306 H (75-99) mg/dL Calcium (8.4-10.2) mg/dL Total Protein (6.3-8.2) g/dL Albumin (3.5-5.0) g/dL Microbiology - Last 24 Hours (Table) 07/13/16 15:10 Blood Culture Gram Stain - Preliminary Blood Blood Culture - Preliminary Coagulase Negative Staph 07/13/16 15:10 Blood Culture - Preliminary Blood No Growth after 24 hours Assessment and Plan Plan: #1 acute systolic congestive heart failure exacerbation: Elevated BNP level on admission. Patient receiving oral Lasix. #2 bibasilar infiltrate suggestive of pneumonia patient undergoing bronchoscopy tomorrow. Hold Coumadin and Lovenox #3 urinary tract infection urine culture pending continue antibiotics. Dr. Wild following #4 left groin surgical wound infection with known history of seroma consult Dr. García #5 chronic atrial fibrillation Coumadin on hold for bronchoscopy #6 recent left lower extremity arterial occlusion requiring surgical intervention by vascular surgery Dr. García #7 diabetes mellitus type 2 on insulin drip secondary to steroids #8 severe protein calorie malnutrition: Start protein supplement poor nutritional status was decreased albumin 2.6 will have a nutrition consult #9 iron deficiency anemia : With history of GI bleed and unable to proceed with colonoscopy due to multiple complications had EGD at [facility] a few months ago that was unremarkable #10 acute exacerbation of chronic obstructive pulmonary disease continue steroids and bronchodilators #11 acute kidney injury: Hold evening dose of Lasix. Repeat labs in a.m. I performed an examination of the patient and discussed their management with the physician [facility]. I have reviewed the Physician [facility]'s notes and agree with the documented findings and plan of care
[2016-07-15 14:33] LABS: Glucose,Whole Blood 275 mg/dL (75-99)
[2016-07-15 16:40] LABS: Glucose,Whole Blood 247 mg/dL (75-99)
[2016-07-15] MEDS: LEVOFLOXACIN 750MG-D5W PMX 750 MG in DEXTROSE/WATER 1 150ML.BAG IVPB SCH (17:39)
[2016-07-15 18:43] LABS: Glucose,Whole Blood 220 mg/dL (75-99)
[2016-07-15] MEDS: BUDESONIDE 1 MG/2 ML NEBU INHALATION SCH (20:06)
[2016-07-15 20:51] LABS: Glucose,Whole Blood 230 mg/dL (75-99)
[2016-07-15] MEDS ORDERED: IV VANCOMYCIN PER PHARMACY 1 EACH MISC MISCELLANE PRN (21:39)
[2016-07-15] MEDS: PRAVASTATIN SODIUM 20 MG TAB PO SCH (21:40)
[2016-07-15] MEDS: MONTELUKAST 10 MG TAB PO SCH (21:40)
[2016-07-15] MEDS: LOSARTAN 50 MG TAB PO SCH (21:40)
[2016-07-15] MEDS: POLYETHYLENE GLYCOL 3350 17 GM POWD.PACK PO SCH (21:40)
--- NOTE | 2016-07-15 21:41 | P.CONS ---
History of Present Illness - Reason for Consult Consult date: 07/15/16 - Chief Complaint Shortness of breath - History of Present Illness 76-year-old female who has a history of extensive hospitalizations earlier this year. She is evidence of the extensive lung disease. 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 She has sleep apnea. Her most recent stay she had evidence of extensive illness including the large clot from the left leg that required endarterectomy with patch angioplasty. She has significant difficulties at that site. She had pneumonia and infection at the left leg site. See the long course of antibiotic therapy. During that last day she have a short hiatus to her 's . Now presenting with increasing shortness of breath as well as concerns to sepsis and urinary tract infection. Patient has extensive congestion to her chest, pulmonary has seen and plans bronchoscopy tomorrow. Review of Systems Patient is very short of breath. Histolytic and fatigue. HEENT:Denies headache or acute visual change. Denies sinus or mouth discomforts. Denies neck stiffness or pain. Denies significant oral cavity pain. Denies difficulty on swallowing. Lungs: Very short of breath positive sputum production no hemoptysis Cardiovascular: Significant shortness of breath with any activity. She does have orthopnea. She is not having chest pain. No syncope. Gastrointestinal:Denies nausea, vomiting, diarrhea, constipation, hematemesis, melena, hematochezia. No no significant change of bowel habit noticed. Musculoskeletal: denies significant myalgias or arthralgias. No new joint swelling. Denies new back pain. Skin: Denies new rash or lesions. No new ulcers or wounds are related.. Neuro: Denies headache or visual change. Denies any new onset weakness or difficulty with ambulation. Denies falls or seizures. Psychiatric: Chronic anxiety and depression Endocrine: Chronic fatigue and some weight gain recently Past Medical History Past Medical History: Atrial Fibrillation, Asthma, Heart Failure, CVA/TIA, Diabetes Mellitus, Deep Vein Thrombosis (DVT), GI Bleed, Hyperlipidemia, Hypertension, Pneumonia Additional Past Medical History / Comment(s): Pt was recently admitted 04/27/16 with L leg ischemia, aucte blood loss anemia-suspect lower GI bleed, acute on chronic CHF, pneumonia with sepsis, exacerbation COPD. Other hx; CVAs-if tired will have slight speech change and chokes easily, chronic CHF, IDDM type II, bilateral cataracts, chronic anemia, 2015 vented for 3 months. Was discharged on to the [facility]. Re-admitted to hospital with pneumonia and groin infection was [facility]. History of Any Multi-Drug Resistant Organisms: MRSA Year Discovered:: 06/02/16 MDRO Source:: BRONCH WASH Past Surgical History: Back Surgery, Breast Surgery, Hysterectomy Additional Past Surgical History / Comment(s): 05/18/16 thrombectomy/ endartectomy L common femoral artery, thoracic surgery in which a drainage tube was placed in her R lung due to pneumothorax, cyst removed from breast, L hip pain stimulator, EGD 03/2016 at [facility], melanoma removals. Past Anesthesia/Blood Transfusion Reactions: No Reported Reaction Additional Past Anesthesia/Blood Transfusion Reaction / Comm: Pt received blood with last admission without reaction. Past Psychological History: No Psychological Hx Reported Additional Psychological History / Comment(s): Pt currently living at [facility]. She just started standing with rails and assist. She is very weak. Has become during previous hospital stay. Tobacco smoker until 3 years ago. No experience. No travel history. No animal exposures Smoking Status: Former smoker Past Alcohol Use History: None Reported Additional Past Alcohol Use History / Comment(s): Pt started smoking in 1960 and quit in 2014 Past Drug Use History: None Reported - Past Family History Mother Family Medical History: Diabetes Mellitus Father Additional Family Medical History / Comment(s): Father had heart problems. Medications and Allergies Home Medications and Allergies Comment(s): Current Medications Hydrocodone Bitart/Acetaminophen ([place] 10) 1 each PO Q4HR PRN PRN Reason: Pain Last Admin: 07/15/16 14:05 Dose: 1 each Albuterol/Ipratropium (Duoneb 0.5 Mg-3 Mg/3 Ml Soln) 3 ml INHALATION RT-QID [facility] Last Admin: 07/15/16 20:06 Dose: 3 ml Albuterol/Ipratropium (Duoneb 0.5 Mg-3 Mg/3 Ml Soln) 3 ml INHALATION RT-Q4H PRN PRN Reason: shortness of breath Alprazolam (Xanax) 0.25 mg PO Q12HR [facility] Last Admin: 07/15/16 08:32 Dose: 0.25 mg Budesonide (Pulmicort) 1 mg INHALATION RT-BID [facility] Last Admin: 07/15/16 20:06 Dose: 1 mg Digoxin (Lanoxin) 125 mcg PO DAILY [facility] Last Admin: 07/15/16 08:32 Dose: 125 mcg Docusate Sodium (Colace) 100 mg PO BID [facility] Last Admin: 07/15/16 08:32 Dose: 100 mg Ferrous Sulfate (Feosol) 325 mg PO BID [facility] Last Admin: 07/15/16 08:32 Dose: 325 mg Furosemide (Lasix) 40 mg PO BID@0900,1600 [facility] Last Admin: 07/15/16 08:32 Dose: 40 mg Guaifenesin (Mucinex) 1,200 mg PO Q12HR [facility] Last Admin: 07/15/16 12:54 Dose: 1,200 mg Sodium Chloride (Saline 0.9%) 1,000 mls @ 110 mls/hr IV .Q9H6M [facility] Last Admin: 07/15/16 13:14 Dose: 110 mls/hr Aztreonam 2 gm/ Sodium (Chloride) 100 mls @ 100 mls/hr IVPB Q8HR [facility] Last Admin: 07/15/16 15:45 Dose: 100 mls/hr Levofloxacin 750 mg/ IV (Solution) 150 mls @ 100 mls/hr IVPB Q48H [facility] Last Admin: 07/15/16 17:39 Dose: 100 mls/hr Insulin Human Regular 100 unit (/ Sodium Chloride) 101 mls @ 0 mls/hr IV .Q0M [facility]; Titrate PRN Reason: Protocol Last Titration: 07/15/16 20:44 Dose: 8 mls/hr, 8 mls/hr Insulin Human Lispro (Humalog) 15 unit 0.13 unit/kg (15 unit) SQ AC-TID [facility] Last Admin: 07/15/16 17:39 Dose: 15 unit Losartan Potassium (Cozaar) 50 mg PO HS [facility] Last Admin: 07/14/16 21:52 Dose: 50 mg Magnesium Hydroxide (Milk Of Magnesia) 2,400 mg PO Q72H PRN PRN Reason: Constipation Methylprednisolone Sodium Succinate (Solu-Medrol) 60 mg IV Q6HR [facility] Last Admin: 07/15/16 17:39 Dose: 60 mg Metoprolol Succinate (Toprol Xl) 200 mg PO BID [facility] Last Admin: 07/15/16 08:32 Dose: 200 mg Miscellaneous Information (Pneumonia Protocol Utilized) 1 each PO ONCE PRN PRN Reason: Per Protocol Montelukast Sodium (Singulair) 10 mg PO [facility] Last Admin: 07/14/16 21:52 Dose: 10 mg Polyethylene Glycol (Miralax) 17 gm PO [facility] Last Admin: 07/14/16 21:52 Dose: 17 gm Pravastatin Sodium (Pravachol) 20 mg PO [facility] Last Admin: 07/14/16 21:52 Dose: 20 mg Home Medications Medication Instructions Recorded Confirmed Type Losartan Potassium [Cozaar] 50 mg PO 04/27/16 07/13/16 History Metoprolol Succinate [Toprol XL] 200 mg PO BID 04/27/16 07/13/16 History Montelukast Sodium [Singulair] 10 mg PO 04/27/16 07/13/16 History Pravastatin Sodium [Pravachol] 20 mg PO 04/27/16 07/13/16 History ALPRAZolam [Xanax] 0.25 mg PO Q12HR 07/13/16 07/13/16 History Budesonide [Pulmicort] 1 mg INHALATION RT-BID 07/13/16 07/13/16 History Furosemide [Lasix] 40 mg PO BID 07/13/16 07/13/16 History INSULIN LISPRO (humaLOG) [humaLOG 8 unit SQ AC-SUPPER 07/13/16 07/13/16 History (formulary)] INSULIN LISPRO (humaLOG) [humaLOG 10 unit SQ AC-BRKFST 07/13/16 07/13/16 History (formulary)] INSULIN LISPRO (humaLOG) [humaLOG 10 unit SQ AC-LUNCH 07/13/16 07/13/16 History (formulary)] Insulin Detemir [Levemir] 25 unit SQ 07/13/16 07/13/16 History Milk Of Magnesia 1200mg/15ml 2,400 mg PO Q72H PRN 07/13/16 07/13/16 History Allergies Allergy/AdvReac Type Severity Reaction Status Date / Time Penicillins Allergy Rash/Hives Verified 07/13/16 16:46 Physical Exam Vitals: Vital Signs Temp Pulse Pulse Resp BP Pulse Ox 07/15/16 20:21 68 07/15/16 20:07 68 07/15/16 15:56 64 07/15/16 15:18 60 07/15/16 15:00 96.9 F L 70 18 120/45 95 07/15/16 12:09 68 07/15/16 11:57 72 07/15/16 07:57 60 07/15/16 07:45 60 96 07/15/16 07:00 96.5 F L 64 18 132/78 93 L 07/14/16 23:00 97.6 F 92 20 132/64 89 L Intake and Output 07/15/16 07/15/16 07/15/16 06:59 14:59 22:59 Intake Total 341.483 77.742 49.234 Balance 341.483 77.742 49.234 Intake: Intake, IV Titration 41.483 77.742 49.234 Amount Insulin Regular 100 unit 41.483 77.742 49.234 In Sodium Chloride 0.9% 100 ml @ Titrate IV .Q0M [facility] Rx#:[id number] Oral 300 Other: # Voids 1 1 6-year-old woman who relates she is feeling less short of breath but appears to still be short of breath HEENT: Anicteric conjunctiva are pink and moist nasal mucosa grossly intact without significant lesions, there is no thrush. Worn dentition Neck: The neck is supple without significant lymphadenopathy or thyromegaly. Lungs: Symmetrical air entry is noted. Wheezes throughout the lung olivares are noted. Bibasilar crackles are heard right greater than left no dullness is noted minimal egophony to the right base is noted Heart: Regular rate and rhythm with an audible S1-S2, no S3 soft S4, There is no significant murmur click or rub, PMI was nondisplaced. Abdomen: Obese, Positive bowel sounds soft and nontender without palpable masses or organomegaly. There was no guarding or rebound. Extremities: The upper and lower extremity is have some generalized edema. However no open ulcerations are seen. The entry site for the thrombectomy is without bleeding drainage or evidence of infection or tenderness Neuro: Awake alert oriented to person place and time. There are no acute new gross focal sensory motor deficits. She has significant generalized weakness though Results CBC & Chem 7: 07/15/16 10:00 07/15/16 10:00 Labs: Abnormal Lab Results - Last 24 Hours (Table) 07/14/16 07/15/16 07/15/16 Range/Units 22:25 00:46 02:41 WBC (3.8-10.6) k/uL RBC (3.80-5.40) m/uL Hgb (11.4-16.0) gm/dL Hct (34.0-46.0) % RDW (11.5-15.5) % Neutrophils # (1.3-7.7) k/uL Lymphocytes # (1.0-4.8) k/uL PT (9.0-12.0) sec Sodium (137-145) mmol/L BUN (7-17) mg/dL Creatinine (0.52-1.04) mg/dL Glucose (74-99) mg/dL POC Glucose (mg/dL) 207 H 198 H 199 H (75-99) mg/dL Calcium (8.4-10.2) mg/dL Total Protein (6.3-8.2) g/dL Albumin (3.5-5.0) g/dL 07/15/16 07/15/16 07/15/16 Range/Units 04:35 06:29 08:30 WBC (3.8-10.6) k/uL RBC (3.80-5.40) m/uL Hgb (11.4-16.0) gm/dL Hct (34.0-46.0) % RDW (11.5-15.5) % Neutrophils # (1.3-7.7) k/uL Lymphocytes # (1.0-4.8) k/uL PT (9.0-12.0) sec Sodium (137-145) mmol/L BUN (7-17) mg/dL Creatinine (0.52-1.04) mg/dL Glucose (74-99) mg/dL POC Glucose (mg/dL) 196 H 198 H 204 H (75-99) mg/dL Calcium (8.4-10.2) mg/dL Total Protein (6.3-8.2) g/dL Albumin (3.5-5.0) g/dL 07/15/16 07/15/1617 Range/Units 10:00 10:00 10:00 WBC 22.0 H (3.8-10.6) k/uL RBC 2.91 L (3.80-5.40) m/uL Hgb 8.9 L (11.4-16.0) gm/dL Hct 28.0 L (34.0-46.0) % RDW 17.8 H (11.5-15.5) % Neutrophils # 20.7 H (1.3-7.7) k/uL Lymphocytes # 0.7 L (1.0-4.8) k/uL PT 13.2 H (9.0-12.0) sec Sodium 134 L (137-145) mmol/L BUN 53 H (7-17) mg/dL Creatinine 1.60 H (0.52-1.04) mg/dL Glucose 309 H (74-99) mg/dL POC Glucose (mg/dL) (75-99) mg/dL Calcium 7.8 L (8.4-10.2) mg/dL Total Protein 5.7 L (6.3-8.2) g/dL Albumin 2.6 L (3.5-5.0) g/dL 07/15/16 07/15/16 07/15/16 Range/Units 10:28 12:35 14:31 WBC (3.8-10.6) k/uL RBC (3.80-5.40) m/uL Hgb (11.4-16.0) gm/dL Hct (34.0-46.0) % RDW (11.5-15.5) % Neutrophils # (1.3-7.7) k/uL Lymphocytes # (1.0-4.8) k/uL PT (9.0-12.0) sec Sodium (137-145) mmol/L BUN (7-17) mg/dL Creatinine (0.52-1.04) mg/dL Glucose (74-99) mg/dL POC Glucose (mg/dL) 330 H 306 H 275 H (75-99) mg/dL Calcium (8.4-10.2) mg/dL Total Protein (6.3-8.2) g/dL Albumin (3.5-5.0) g/dL 07/15/16 07/15/16 07/15/16 Range/Units 16:32 18:32 20:41 WBC (3.8-10.6) k/uL RBC (3.80-5.40) m/uL Hgb (11.4-16.0) gm/dL Hct (34.0-46.0) % RDW (11.5-15.5) % Neutrophils # (1.3-7.7) k/uL Lymphocytes # (1.0-4.8) k/uL PT (9.0-12.0) sec Sodium (137-145) mmol/L BUN (7-17) mg/dL Creatinine (0.52-1.04) mg/dL Glucose (74-99) mg/dL POC Glucose (mg/dL) 247 H 220 H 230 H (75-99) mg/dL Calcium (8.4-10.2) mg/dL Total Protein (6.3-8.2) g/dL Albumin (3.5-5.0) g/dL Microbiology - Last 24 Hours (Table) 07/13/16 15:10 Blood Culture - Preliminary Blood No Growth after 48 hours 07/13/16 15:10 Blood Culture Gram Stain - Preliminary Blood Blood Culture - Preliminary Coagulase Negative Staph Laboratory Results WBC 22.0 k/uL (3.8-10.6) H 07/15/16 10:00 RBC 2.91 m/uL (3.80-5.40) L 07/15/16 10:00 Hgb 8.9 gm/dL (11.4-16.0) L 07/15/16 10:00 Hct 28.0 % (34.0-46.0) L 07/15/16 10:00 MCV 96.3 fL (80.0-100.0) 07/15/16 10:00 MCH 30.5 pg (25.0-35.0) 07/15/16 10:00 MCHC 31.6 g/dL (31.0-37.0) 07/15/16 10:00 RDW 17.8 % (11.5-15.5) H 07/15/16 10:00 Plt Count 215 k/uL (150-450) 07/15/16 10:00 Neutrophils % 94 % 07/15/16 10:00 Lymphocytes % 3 % 07/15/16 10:00 Monocytes % 2 % 07/15/16 10:00 Eosinophils % 0 % 07/15/16 10:00 Basophils % 0 % 07/15/16 10:00 Neutrophils # 20.7 k/uL (1.3-7.7) H 07/15/16 10:00 Lymphocytes # 0.7 k/uL (1.0-4.8) L 07/15/16 10:00 Monocytes # 0.5 k/uL (0-1.0) 07/15/16 10:00 Eosinophils # 0.0 k/uL (0-0.7) 07/15/16 10:00 Basophils # 0.0 k/uL (0-0.2) 07/15/16 10:00 Hypochromasia Marked 07/15/16 10:00 Anisocytosis Slight 07/15/16 10:00 Macrocytosis Slight 07/15/16 10:00 PT 13.2 sec (9.0-12.0) H 07/15/16 10:00 INR 1.3 (<1.1) 07/15/16 10:00 APTT 23.0 sec (22.0-30.0) 07/13/16 15:10 Sodium 134 mmol/L (137-145) L 07/15/16 10:00 Potassium 4.4 mmol/L (3.5-5.1) 07/15/16 10:00 Chloride 101 mmol/L (98-107) 07/15/16 10:00 Carbon Dioxide 24 mmol/L (22-30) 07/15/16 10:00 Anion Gap 9 mmol/L 07/15/16 10:00 BUN 53 mg/dL (7-17) H 07/15/16 10:00 Creatinine 1.60 mg/dL (0.52-1.04) H 07/15/16 10:00 Est GFR (MDRD) Af Amer 38 (>60 ml/min/1.73 sqM) 07/15/16 10:00 Est GFR (MDRD) Non-Af 31 (>60 ml/min/1.73 sqM) 07/15/16 10:00 Glucose 309 mg/dL (74-99) H 07/15/16 10:00 POC Glucose (mg/dL) 230 mg/dL (75-99) H 07/15/16 20:41 POC Glu Membership Correspondent ID Angy Arnold 07/15/16 20:[address] Glu mg/dL 154 mg/dL 07/13/16 15:10 Hemoglobin A1c 7.0 % (4.2-6.1) H 07/13/16 15:10 Plasma Lactic Acid Good 1.3 mmol/L (0.7-2.0) 07/13/16 15:10 Calcium 7.8 mg/dL (8.4-10.2) L 07/15/16 10:00 Total Bilirubin 0.3 mg/dL (0.2-1.3) 07/15/16 10:00 AST 14 U/L (14-36) 07/15/16 10:00 ALT 22 U/L (9-52) 07/15/16 10:00 Alkaline Phosphatase 68 U/L (38-126) 07/15/16 10:00 NT-Pro-B Natriuret Pep 33414 pg/mL 07/13/16 15:10 Total Protein 5.7 g/dL (6.3-8.2) L 07/15/16 10:00 Albumin 2.6 g/dL (3.5-5.0) L 07/15/16 10:00 Urine Color Yellow 07/13/16 15:10 Urine Appearance Turbid (Clear) H 07/13/16 15:10 Urine pH 5.5 (5.0-8.0) 07/13/16 15:10 Ur Specific [place] 1.014 (1.001-1.035) 07/13/16 15:10 Urine Protein 2+ (Negative) H 07/13/16 15:10 Urine Glucose (UA) Negative (Negative) 07/13/16 15:10 Urine Ketones Negative (Negative) 07/13/16 15:10 Urine Blood Large (Negative) H 07/13/16 15:10 Urine Nitrite Negative (Negative) 07/13/16 15:10 Urine Bilirubin Negative (Negative) 07/13/16 15:10 Urine Urobilinogen <2.0 mg/dL (<2.0) 07/13/16 15:10 Ur Leukocyte Esterase Large (Negative) H 07/13/16 15:10 Urine RBC 80 /hpf (0-5) H 07/13/16 15:10 Urine WBC >182 /hpf (0-5) H 07/13/16 15:10 Urine WBC Clumps Few /hpf (None) H 07/13/16 15:10 Ur Squamous Epith Cells 4 /hpf (0-4) 07/13/16 15:10 Urine Bacteria Many /hpf (None) H 07/13/16 15:10 Urine Yeast (Budding) Many /hpf (None) H 07/13/16 15:10 Microbiology 07/13/16 15:10 Blood Blood Culture - Preliminary No Growth after 48 hours 07/13/16 15:10 Blood Blood Culture Gram Stain - Preliminary 07/13/16 15:10 Blood Blood Culture - Preliminary Coagulase Negative Staph 07/13/16 15:10 Urine,Voided Urine Culture - Preliminary Assessment and Plan (1) Sepsis Narrative/Plan: 76-year-old woman presents hospital feeling very poorly. Having increasing shortness of breath cough sputum production without hemoptysis. Generalized malaise. Fevers of also occurred. On evidence of extensive leukocytosis. Possible culture is been called in [place] was requested. There is evidence of 1 blood culture with coag was negative staph. Urine culture is positive and pending. The patient doesn't history of prior bronchoscopy with MRSA and stenotrophomonas maltophilia being isolated. Consequently antibiotic therapy with vancomycin and levofloxacin will be utilized. She is anticoagulant with Coumadin and this must be watched closely because of utilization of Levaquin. Cultures in process now. Bronchoscopy will also give further cultures which may further help direct antibiotic therapy. Continue supportive care with oxygen, respiratory treatments and CPAP as needed.. Status: Acute (2) Pneumonia Status: Acute (3) Leukocytosis Status: Acute (4) Peripheral arterial occlusive disease Status: Chronic (5) Diabetes mellitus type 2, uncontrolled, with complications Status: Acute
[2016-07-15] MEDS ORDERED: VANCOMYCIN 1,750 MG in SODIUM CHLORIDE 0.9% 250 ML IVPB SCH (22:30)
[2016-07-15 22:42] LABS: Glucose,Whole Blood 244 mg/dL (75-99)
[2016-07-16] MEDS: INSULIN REGULAR 100 UNIT in SODIUM CHLORIDE 0.9% 100 ML IV SCH ×2 (00:19→22:07)
[2016-07-16 00:42] LABS: Glucose,Whole Blood 222 mg/dL (75-99)
[2016-07-16 02:45] LABS: Glucose,Whole Blood 207 mg/dL (75-99)
[2016-07-16 04:39] LABS: Glucose,Whole Blood 201 mg/dL (75-99)
[2016-07-16 06:18] LABS: Glucose,Whole Blood 190 mg/dL (75-99)
[2016-07-16] MEDS: methylPREDNISolone SOD SUCCI 125 MG/2 ML VIAL IV SCH ×3 (06:40→18:08)
--- NOTE | 2016-07-16 06:41 | P.GSCN ---
History of Present Illness History of present illness: 76-year-old white female, patient's noted to me from the past she has history of COPD sleep apnea obesity patient had a left femoral thrombectomy in the past and she developed open wound to the left groin which we have been treating for local wound care Medical history history of COPD, history of obesity, history of atrial fibrillation, Patient was seen in the room she has a stay of systems sleep apnea, history of diabetes, history of atrial fibrillation, Surgical history patient had a thrombectomy of the left femoral and popliteal artery in the past she has this wound in the left groin we've been treating with local wound care at this point does not discharge or redness noted José Miguel is continue with local wound care wet to dry dressing with the left groin on daily basis patient is under care of Dr. Mohan Wild for IV antibiotic Past Medical History Past Medical History: Atrial Fibrillation, Asthma, Heart Failure, CVA/TIA, Diabetes Mellitus, Deep Vein Thrombosis (DVT), GI Bleed, Hyperlipidemia, Hypertension, Pneumonia Additional Past Medical History / Comment(s): Pt was recently admitted 04/27/16 with L leg ischemia, aucte blood loss anemia-suspect lower GI bleed, acute on chronic CHF, pneumonia with sepsis, exacerbation COPD. Other hx; CVAs-if tired will have slight speech change and chokes easily, chronic CHF, IDDM type II, bilateral cataracts, chronic anemia, 2015 vented for 3 months. Was discharged on to the [facility]. Re-admitted to hospital with pneumonia and groin infection was d/c back to [facility] 06/18/2016. History of Any Multi-Drug Resistant Organisms: MRSA Year Discovered:: 06/02/16 MDRO Source:: BRONCH WASH Past Surgical History: Back Surgery, Breast Surgery, Hysterectomy Additional Past Surgical History / Comment(s): 05/18/16 thrombectomy/ endartectomy L common femoral artery, thoracic surgery in which a drainage tube was placed in her R lung due to pneumothorax, cyst removed from breast, L hip pain stimulator, EGD 03/2016 at [facility], melanoma removals. Past Anesthesia/Blood Transfusion Reactions: No Reported Reaction Additional Past Anesthesia/Blood Transfusion Reaction / Comm: Pt received blood with last admission without reaction. Past Psychological History: No Psychological Hx Reported Additional Psychological History / Comment(s): Pt currently living at [facility]. She just started standing with rails and assist. She is very weak. Has become during previous hospital stay. Tobacco smoker until 3 years ago. No experience. No travel history. No animal exposures Smoking Status: Former smoker Past Alcohol Use History: None Reported Additional Past Alcohol Use History / Comment(s): Pt started smoking in 1960 and quit in 2014 Past Drug Use History: None Reported - Past Family History Mother Family Medical History: Diabetes Mellitus Father Additional Family Medical History / Comment(s): Father had heart problems. Medications and Allergies Home Medications Medication Instructions Recorded Confirmed Type Losartan Potassium [Cozaar] 50 mg PO HS 04/27/16 07/13/16 History Metoprolol Succinate [Toprol XL] 200 mg PO BID 04/27/16 07/13/16 History Montelukast Sodium [Singulair] 10 mg PO HS 04/27/16 07/13/16 History Pravastatin Sodium [Pravachol] 20 mg PO HS 04/27/16 07/13/16 History ALPRAZolam [Xanax] 0.25 mg PO Q12HR 07/13/16 07/13/16 History Budesonide [Pulmicort] 1 mg INHALATION RT-BID 07/13/16 07/13/16 History Furosemide [Lasix] 40 mg PO BID 07/13/16 07/13/16 History INSULIN LISPRO (humaLOG) [humaLOG 8 unit SQ AC-SUPPER 07/13/16 07/13/16 History (formulary)] INSULIN LISPRO (humaLOG) [humaLOG 10 unit SQ AC-BRKFST 07/13/16 07/13/16 History (formulary)] INSULIN LISPRO (humaLOG) [humaLOG 10 unit SQ AC-LUNCH 07/13/16 07/13/16 History (formulary)] Insulin Detemir [Levemir] 25 unit SQ HS 07/13/16 07/13/16 History Milk Of Magnesia 1200mg/15ml 2,400 mg PO Q72H PRN 07/13/16 07/13/16 History Allergies Allergy/AdvReac Type Severity Reaction Status Date / Time Penicillins Allergy Rash/Hives Verified 07/13/16 16:46 Surgical - Exam Vital Signs Temp Pulse Resp BP Pulse Ox 101.3 F H 121 H 28 H 152/66 88 L 07/13/16 14:56 07/13/16 14:56 07/13/16 14:56 07/13/16 14:56 07/13/16 14:56 Results - Labs 07/15/16 10:00 07/15/16 10:00 Abnormal Lab Results - Last 24 Hours (Table) 07/15/16 07/15/16 07/15/16 Range/Units 08:30 10:00 10:00 WBC 22.0 H (3.8-10.6) k/uL RBC 2.91 L (3.80-5.40) m/uL Hgb 8.9 L (11.4-16.0) gm/dL Hct 28.0 L (34.0-46.0) % RDW 17.8 H (11.5-15.5) % Neutrophils # 20.7 H (1.3-7.7) k/uL Lymphocytes # 0.7 L (1.0-4.8) k/uL PT (9.0-12.0) sec Sodium 134 L (137-145) mmol/L BUN 53 H (7-17) mg/dL Creatinine 1.60 H (0.52-1.04) mg/dL Glucose 309 H (74-99) mg/dL POC Glucose (mg/dL) 204 H (75-99) mg/dL Calcium 7.8 L (8.4-10.2) mg/dL Total Protein 5.7 L (6.3-8.2) g/dL Albumin 2.6 L (3.5-5.0) g/dL 07/15/16 07/15/16 07/15/16 Range/Units 10:00 10:28 12:35 WBC (3.8-10.6) k/uL RBC (3.80-5.40) m/uL Hgb (11.4-16.0) gm/dL Hct (34.0-46.0) % RDW (11.5-15.5) % Neutrophils # (1.3-7.7) k/uL Lymphocytes # (1.0-4.8) k/uL PT 13.2 H (9.0-12.0) sec Sodium (137-145) mmol/L BUN (7-17) mg/dL Creatinine (0.52-1.04) mg/dL Glucose (74-99) mg/dL POC Glucose (mg/dL) 330 H 306 H (75-99) mg/dL Calcium (8.4-10.2) mg/dL Total Protein (6.3-8.2) g/dL Albumin (3.5-5.0) g/dL 07/15/16 07/15/16 07/15/16 Range/Units 14:31 16:32 18:32 WBC (3.8-10.6) k/uL RBC (3.80-5.40) m/uL Hgb (11.4-16.0) gm/dL Hct (34.0-46.0) % RDW (11.5-15.5) % Neutrophils # (1.3-7.7) k/uL Lymphocytes # (1.0-4.8) k/uL PT (9.0-12.0) sec Sodium (137-145) mmol/L BUN (7-17) mg/dL Creatinine (0.52-1.04) mg/dL Glucose (74-99) mg/dL POC Glucose (mg/dL) 275 H 247 H 220 H (75-99) mg/dL Calcium (8.4-10.2) mg/dL Total Protein (6.3-8.2) g/dL Albumin (3.5-5.0) g/dL 07/15/16 07/15/16 07/16/16 Range/Units 20:41 22:33 00:33 WBC (3.8-10.6) k/uL RBC (3.80-5.40) m/uL Hgb (11.4-16.0) gm/dL Hct (34.0-46.0) % RDW (11.5-15.5) % Neutrophils # (1.3-7.7) k/uL Lymphocytes # (1.0-4.8) k/uL PT (9.0-12.0) sec Sodium (137-145) mmol/L BUN (7-17) mg/dL Creatinine (0.52-1.04) mg/dL Glucose (74-99) mg/dL POC Glucose (mg/dL) 230 H 244 H 222 H (75-99) mg/dL Calcium (8.4-10.2) mg/dL Total Protein (6.3-8.2) g/dL Albumin (3.5-5.0) g/dL 07/16/16 07/16/16 07/16/16 Range/Units 02:41 04:37 06:16 WBC (3.8-10.6) k/uL RBC (3.80-5.40) m/uL Hgb (11.4-16.0) gm/dL Hct (34.0-46.0) % RDW (11.5-15.5) % Neutrophils # (1.3-7.7) k/uL Lymphocytes # (1.0-4.8) k/uL PT (9.0-12.0) sec Sodium (137-145) mmol/L BUN (7-17) mg/dL Creatinine (0.52-1.04) mg/dL Glucose (74-99) mg/dL POC Glucose (mg/dL) 207 H 201 H 190 H (75-99) mg/dL Calcium (8.4-10.2) mg/dL Total Protein (6.3-8.2) g/dL Albumin (3.5-5.0) g/dL Microbiology - Last 24 Hours (Table) 07/13/16 15:10 Urine Culture - Final Urine,Voided Enterobacter cloacae Pseudomonas aeruginosa 07/13/16 15:10 Blood Culture - Preliminary Blood No Growth after 48 hours Diabetes panel 07/15/16 Range/Units 10:00 Sodium 134 L (137-145) mmol/L Potassium 4.4 (3.5-5.1) mmol/L Chloride 101 (98-107) mmol/L Carbon Dioxide 24 (22-30) mmol/L BUN 53 H (7-17) mg/dL Creatinine 1.60 H (0.52-1.04) mg/dL Glucose 309 H (74-99) mg/dL Calcium 7.8 L (8.4-10.2) mg/dL AST 14 (14-36) U/L ALT 22 (9-52) U/L Alkaline Phosphatase 68 (38-126) U/L Total Protein 5.7 L (6.3-8.2) g/dL Albumin 2.6 L (3.5-5.0) g/dL Calcium panel 07/15/16 Range/Units 10:00 Calcium 7.8 L (8.4-10.2) mg/dL Albumin 2.6 L (3.5-5.0) g/dL Pituitary panel 07/15/16 Range/Units 10:00 Sodium 134 L (137-145) mmol/L Potassium 4.4 (3.5-5.1) mmol/L Chloride 101 (98-107) mmol/L Carbon Dioxide 24 (22-30) mmol/L BUN 53 H (7-17) mg/dL Creatinine 1.60 H (0.52-1.04) mg/dL Glucose 309 H (74-99) mg/dL Calcium 7.8 L (8.4-10.2) mg/dL Adrenal panel 07/15/16 Range/Units 10:00 Sodium 134 L (137-145) mmol/L Potassium 4.4 (3.5-5.1) mmol/L Chloride 101 (98-107) mmol/L Carbon Dioxide 24 (22-30) mmol/L BUN 53 H (7-17) mg/dL Creatinine 1.60 H (0.52-1.04) mg/dL Glucose 309 H (74-99) mg/dL Calcium 7.8 L (8.4-10.2) mg/dL Total Bilirubin 0.3 (0.2-1.3) mg/dL AST 14 (14-36) U/L ALT 22 (9-52) U/L Alkaline Phosphatase 68 (38-126) U/L Total Protein 5.7 L (6.3-8.2) g/dL Albumin 2.6 L (3.5-5.0) g/dL
[2016-07-16] MEDS: INSULIN LISPRO (humaLOG) 300 UNIT/3 ML VIAL SQ SCH ×3 (07:12→18:21)
[2016-07-16] MEDS: METOPROLOL SUCCINATE (ER) 50 MG TAB.ER.24H PO SCH ×2 (08:07→20:44)
[2016-07-16 08:24] LABS: Anisocytosis Slight; Basophils % (A) 0 %; CHCM 28.8; Eosinophils % (A) 0 %; HCT 26.5 % (34.0-46.0); HDW 3.33; HGB 7.6 gm/dL (11.4-16.0); Hypochromasia Marked; Luc # (Auto) 0.16; Luc % (Auto) 1; Lymphocytes # (A) 0.8 k/uL (1.0-4.8); Lymphocytes % (A) 4 %; MCH 27.8 pg (25.0-35.0); MCHC 28.6 g/dL (31.0-37.0); MCV 97.1 fL (80.0-100.0); Macrocytosis Slight; Mean Platelet Volume 8.2; Monocytes # (A) 0.6 k/uL (0-1.0); Monocytes % (A) 3 %; Neutrophils # (A) 18.1 k/uL (1.3-7.7); Neutrophils % (A) 92 %; RBC 2.73 m/uL (3.80-5.40); RDW 17.8 % (11.5-15.5); WBC 19.6 k/uL (3.8-10.6); WBC (Perox) 20.43
[2016-07-16 08:26] LABS: Glucose,Whole Blood 197 mg/dL (75-99)
[2016-07-16 08:45] LABS: Calcium 7.6 mg/dL (8.4-10.2); INR 1.6 (<1.1); Magnesium 1.9 mg/dL (1.6-2.3); Potassium 4.4 mmol/L (3.5-5.1); Prothrombin Time 15.3 sec (9.0-12.0); Total Bilirubin 0.3 mg/dL (0.2-1.3); Total Protein 5.5 g/dL (6.3-8.2)
[2016-07-16] MEDS: BUDESONIDE 1 MG/2 ML NEBU INHALATION SCH ×2 (08:54→20:01)
[2016-07-16] MEDS: IPRATROPIUM-ALBUTEROL 3 ML NEB INHALATION SCH ×4 (08:54→20:01)
[2016-07-16] MEDS ORDERED: VANCOMYCIN 1,750 MG in SODIUM CHLORIDE 0.9% 250 ML IVPB SCH (09:00)
[2016-07-16] MEDS ORDERED: IV FLUID CONTINUATION 400 ML IV ONE (09:30)
[2016-07-16] MEDS ORDERED: LIDOCAINE 1% INJ 10MG/ML (20 ML MDV) ONE (09:35)
[2016-07-16] MEDS ORDERED: GLYCOPYRROLATE 0.2 MG/ML 2 ML VIAL ONE (09:35)
[2016-07-16] MEDS ORDERED: PROPOFOL 10 MG/ML 20 ML VIAL IV ONE (09:35)
[2016-07-16] MEDS ORDERED: LIDOCAINE 2% INJ 20 MG/ML INTRATRACH ONE (09:42)
[2016-07-16] MEDS ORDERED: ACETYLCYSTEINE 800 MG/4 ML VIAL INHALATION ONE (09:44)
[2016-07-16 10:21] LABS: Glucose,Whole Blood 212 mg/dL (75-99)
[2016-07-16] MEDS: FUROSEMIDE 40 MG TAB PO SCH ×2 (10:22→16:05)
[2016-07-16] MEDS: DOCUSATE 100 MG CAP PO SCH ×2 (10:22→20:45)
[2016-07-16] MEDS: guaiFENesin 600 MG TABLET.ER PO SCH ×2 (10:22→20:45)
[2016-07-16] MEDS: ALPRAZolam 0.25 MG TAB PO SCH ×2 (10:22→22:14)
[2016-07-16] MEDS: DIGOXIN 125 MCG TAB PO SCH (10:22)
[2016-07-16] MEDS: FERROUS SULFATE 325 MG TAB PO SCH ×2 (10:22→20:45)
[2016-07-16] MEDS: HYDROcodone/APAP 10-325MG 1 EACH TAB PO PRN ×2 (10:32→20:43)
--- NOTE | 2016-07-16 10:47 | PN ---
DATE OF SERVICE: 07/16/2016 Ms. Bui is seen, evaluated, and examined. She is still having congestion, shortness of breath and audible wheezing are present. She is very weak, unable to produce and expectorate the phlegm and congested extensively. She has marginal saturation, gets short of breath on minimal activity and exertion. Her last set of vitals include blood pressure is 140/60, respiratory rate 16, pulse 56, temperature 96.8, saturation 96% on 4 L oxygen. HEENT EXAMINATION: Otherwise unremarkable. Oral mucosa is moist, very narrow, pharyngeal opening is present, Mallampati grade 4. NECK: Supple without lymphadenopathy, jugular venous distention or carotid bruit. Neck veins are prominent. LUNGS: Bilateral coarse inspiratory and expiratory crackles are present with inspiration. HEART: Regular rate and rhythm. S1 and S2 audible. Abdomen is distended, but soft. No rebound or rigidity. EXTREMITIES: +1 edema, +1 peripheral pulses. NEUROLOGICAL EXAMINATION: Awake and alert. Moving all 4 extremities, but is very weak though. Last chest x-ray performed 07/14/2016 reviewed, bibasilar atelectasis are present along with bibasilar pneumonia, prominent interstitium, the PICC line is stable. The laboratory data reviewed. White cell count is 19,600, hemoglobin and hematocrit 7.6 and 26, platelet count 214,000. PT, INR 15.3 and 1.6. Sodium is 130, potassium 4.4. BUN and creatinine 66 and 1.64. LFTs are within normal limits. Albumin is only 2.5. Culture results and reports are reviewed. The urine culture is positive for Pseudomonas and Enterobacter. The blood culture preliminary guaiac-negative staph though. IMPRESSION: 1. Bilateral pneumonia with acute hypoxic respiratory failure, likely related to acute on chronic hypoxic hypercapnic respiratory failure and related to intermittent aspiration pneumonia, mixed bacterial. 2. Urinary tract infection related to polymicrobial organism. 3. Congestive heart failure. 4. History of cerebrovascular accident. 5. Generalized weakness and medical debility. 6. Protein calorie malnourishment. 7. Chronic systolic heart failure. 8. Chronic atrial fibrillation. 9. Diabetes mellitus. 10. History of peripheral arterial disease. Plan and recommendation is to continue to hold anticoagulation transiently for now, proceed with bronchoscopy and pulmonary toilet. Continue broad-spectrum antibiotics. Continue breathing treatments. Patient has been encouraged to expectorate. Maintain patient on peptic ulcer disease prophylaxis. Will follow clinical course closely. Patient is being planned for bronchoscopy later on today for pulmonary toilet for followup.
--- NOTE | 2016-07-16 10:56 | PCN ---
DATE OF PROCEDURE: 07/16/2016 PROCEDURE DONE: 1. Bronchoscopy. 2. Bronchoalveolar lavage of the right lower lobe and left lower lobe. INDICATIONS: Bilateral mixed bacterial pneumonia, recurrent aspiration, severe COPD, and bilateral basal atelectasis and mucous plugging. OPERATIVE DETAIL: Patient was prepared and draped in the usual fashion. For anesthesia, please reference the anesthesia detail. The tip of the scope was passed through the normal structure and function'; however, extensive amount of phlegm was noted in prelaryngeal area as well as around the vocal cords as well, which was cleaned. The tip of the scope was passed beyond the vocal cords, extensive amount of mucous plugging and phlegm was present which was clogging the tube; 10 mL of Mucomyst was instilled in both right lower lobe and left lower lobe, prior to that noted that patient had episodes of desaturation as well. The scope was withdrawn. Patient was monitored and observed, slowly oxygen saturation improved from the lowest of 60 to 70 transiently to mid 90s. The scope was reintroduced into the right nares and again passed through the tracheobronchial tree. A diffuse right edema was noted bilaterally with extensive amount of mucous plugging. Tip of the scope was passed on the left side where most of the mucous plugging was seen. The plugs were cleaned and suctioned followed by BAL on the left lower lobe. Subsequently, the right side was inspected. Right upper lobe, right middle lobe and right lower lobe mucous plugging again was seen, predominantly in the right lower lobe where BAL was performed. Patient tolerated the procedure well. The lavage was performed from the left lower lobe as well. No endobronchial mass or lesion was seen, but; however, mucosa was extremely erythematous, edematous with extensive mucus plugging. Patient tolerated the procedure well. No complication noted besides transient desaturation noted earlier. Patient transferred from the endoscopy to recovery area in stable condition. BAL is being sent for Gram stain, culture and cytology for viral culture and fungal culture.
[2016-07-16 12:00] LABS: Glucose,Whole Blood 178 mg/dL (75-99)
--- NOTE | 2016-07-16 12:30 | P.PN ---
Subjective Patient presented to the hospital with worsening shortness of breath with productive cough and weakness. She is being treated for pneumonia and COPD exacerbation. Pulmonary service is following in planning bronchoscopy for tomorrow. Patient still reporting regarding a productive cough. Patient underwent bronchoscopy this morning. Denies any chest pain. Denies any nausea or vomiting. Last bowel movement 2 days ago. Denies any difficulty urinating. Objective - Vital Signs Vital signs: Vital Signs Temp 96.7 F L 07/16/16 10:28 Pulse 69 07/16/16 11:09 Resp 16 07/16/16 11:51 BP 167/76 07/16/16 11:09 Pulse Ox 98 07/16/16 11:51 Intake & Output 07/15/16 07/16/16 07/16/16 18:59 06:59 18:59 Intake Total 114.676 327.267 80.033 Balance 114.676 327.267 80.033 Intake: IV 50 Intake, IV Titration 114.676 77.267 30.033 Amount Insulin Regular 100 unit 114.676 77.267 30.033 In Sodium Chloride 0.9% 100 ml @ Titrate IV .Q0M [facility] Rx#:[id number] Oral 250 Other: Voiding Method Bedpan # Voids 1 2 1 - Exam Head normocephalic Neck supple Lungs few coarse breath sounds. Improved since bronchoscopy Heart regular rate and rhythm S1-S2, no rub or gallop Abdomen is soft nontender nondistended positive bowel sounds no hepatosplenomegaly Extremities no edema. Left groin wound site packing in place there is no redness or drainage noted Neuro alert and orientated to 3 - Labs CBC & Chem 7: 07/16/16 07:44 07/16/16 07:44 Labs: Abnormal Lab Results - Last 24 Hours (Table) 07/15/16 07/15/16 07/15/16 Range/Units 12:35 14:31 16:32 WBC (3.8-10.6) k/uL RBC (3.80-5.40) m/uL Hgb (11.4-16.0) gm/dL Hct (34.0-46.0) % MCHC (31.0-37.0) g/dL RDW (11.5-15.5) % Neutrophils # (1.3-7.7) k/uL Lymphocytes # (1.0-4.8) k/uL PT (9.0-12.0) sec Carbon Dioxide (22-30) mmol/L BUN (7-17) mg/dL Creatinine (0.52-1.04) mg/dL Glucose (74-99) mg/dL POC Glucose (mg/dL) 306 H 275 H 247 H (75-99) mg/dL Calcium (8.4-10.2) mg/dL Total Protein (6.3-8.2) g/dL Albumin (3.5-5.0) g/dL 07/15/16 07/15/16 07/15/16 Range/Units 18:32 20:41 22:33 WBC (3.8-10.6) k/uL RBC (3.80-5.40) m/uL Hgb (11.4-16.0) gm/dL Hct (34.0-46.0) % MCHC (31.0-37.0) g/dL RDW (11.5-15.5) % Neutrophils # (1.3-7.7) k/uL Lymphocytes # (1.0-4.8) k/uL PT (9.0-12.0) sec Carbon Dioxide (22-30) mmol/L BUN (7-17) mg/dL Creatinine (0.52-1.04) mg/dL Glucose (74-99) mg/dL POC Glucose (mg/dL) 220 H 230 H 244 H (75-99) mg/dL Calcium (8.4-10.2) mg/dL Total Protein (6.3-8.2) g/dL Albumin (3.5-5.0) g/dL 07/16/16 07/16/16 07/16/16 Range/Units 00:33 02:41 04:37 WBC (3.8-10.6) k/uL RBC (3.80-5.40) m/uL Hgb (11.4-16.0) gm/dL Hct (34.0-46.0) % MCHC (31.0-37.0) g/dL RDW (11.5-15.5) % Neutrophils # (1.3-7.7) k/uL Lymphocytes # (1.0-4.8) k/uL PT (9.0-12.0) sec Carbon Dioxide (22-30) mmol/L BUN (7-17) mg/dL Creatinine (0.52-1.04) mg/dL Glucose (74-99) mg/dL POC Glucose (mg/dL) 222 H 207 H 201 H (75-99) mg/dL Calcium (8.4-10.2) mg/dL Total Protein (6.3-8.2) g/dL Albumin (3.5-5.0) g/dL 07/16/16 07/16/16 07/16/16 Range/Units 06:16 07:44 07:44 WBC 19.6 H (3.8-10.6) k/uL RBC 2.73 L (3.80-5.40) m/uL Hgb 7.6 L (11.4-16.0) gm/dL Hct 26.5 L (34.0-46.0) % MCHC 28.6 L (31.0-37.0) g/dL RDW 17.8 H (11.5-15.5) % Neutrophils # 18.1 H (1.3-7.7) k/uL Lymphocytes # 0.8 L (1.0-4.8) k/uL PT 15.3 H (9.0-12.0) sec Carbon Dioxide (22-30) mmol/L BUN (7-17) mg/dL Creatinine (0.52-1.04) mg/dL Glucose (74-99) mg/dL POC Glucose (mg/dL) 190 H (75-99) mg/dL Calcium (8.4-10.2) mg/dL Total Protein (6.3-8.2) g/dL Albumin (3.5-5.0) g/dL 07/16/16 07/16/16 07/16/16 Range/Units 07:44 08:06 10:20 WBC (3.8-10.6) k/uL RBC (3.80-5.40) m/uL Hgb (11.4-16.0) gm/dL Hct (34.0-46.0) % MCHC (31.0-37.0) g/dL RDW (11.5-15.5) % Neutrophils # (1.3-7.7) k/uL Lymphocytes # (1.0-4.8) k/uL PT (9.0-12.0) sec Carbon Dioxide 20 L (22-30) mmol/L BUN 66 H (7-17) mg/dL Creatinine 1.64 H (0.52-1.04) mg/dL Glucose 166 H (74-99) mg/dL POC Glucose (mg/dL) 197 H 212 H (75-99) mg/dL Calcium 7.6 L (8.4-10.2) mg/dL Total Protein 5.5 L (6.3-8.2) g/dL Albumin 2.5 L (3.5-5.0) g/dL 07/16/16 Range/Units 11:52 WBC (3.8-10.6) k/uL RBC (3.80-5.40) m/uL Hgb (11.4-16.0) gm/dL Hct (34.0-46.0) % MCHC (31.0-37.0) g/dL RDW (11.5-15.5) % Neutrophils # (1.3-7.7) k/uL Lymphocytes # (1.0-4.8) k/uL PT (9.0-12.0) sec Carbon Dioxide (22-30) mmol/L BUN (7-17) mg/dL Creatinine (0.52-1.04) mg/dL Glucose (74-99) mg/dL POC Glucose (mg/dL) 178 H (75-99) mg/dL Calcium (8.4-10.2) mg/dL Total Protein (6.3-8.2) g/dL Albumin (3.5-5.0) g/dL Microbiology - Last 24 Hours (Table) 07/13/16 15:10 Urine Culture - Final Urine,Voided Enterobacter cloacae Pseudomonas aeruginosa 07/13/16 15:10 Blood Culture - Preliminary Blood No Growth after 48 hours Assessment and Plan Plan: #1 bacterial pneumonia with sepsis present on admission: Patient underwent bronchoscopy today. Currently on Levaquin and vancomycin. Followed by both pulmonary service and infectious disease. Await bronchial culture results #2 acute systolic congestive heart failure exacerbation: Elevated BNP level on admission. Patient receiving oral Lasix. #3 urinary tract infection : Urine culture Enterobacter cloacae and pseudomonas aeruginosa. Continue current antibiotics. Dr. Wild following. Continue Levaquin #4 left groin surgical wound infection with known history of seroma. Evaluated by Dr. García. Continue current wound care #5 chronic atrial fibrillation : We will resume Lovenox 100 mg subcu every 12 hours until INR is therapeutic. Give Coumadin 5 mg tonight. Repeat PT/INR in a.m. #6 recent left lower extremity arterial occlusion requiring surgical intervention by vascular surgery Dr. García #7 diabetes mellitus type 2 on insulin drip secondary to steroids #8 severe protein calorie malnutrition: Start protein supplement poor nutritional status was decreased albumin 2.6 will have a nutrition consult #9 iron deficiency anemia : With history of GI bleed and unable to proceed with colonoscopy due to multiple complications had EGD at [facility] a few months ago that was unremarkable. Check iron studies. Check stool for occult blood. Hemoglobin has dropped to 7.6. #10 acute exacerbation of chronic obstructive pulmonary disease continue steroids and bronchodilators #11 acute kidney injury: Creatinine is up to 1.64. Lasix held yesterday evening. Continue to monitor #12 bacteremia with one blood culture positive coagulase negative staph. I performed an examination of the patient and discussed their management with the physician Cupola Liner Helper. I have reviewed the Physician Cupola Liner Helper's notes and agree with the documented findings and plan of care
[2016-07-16 13:16] LABS: % Iron Saturation 40.4 % (20-50)
[2016-07-16] MEDS: ENOXAPARIN 100 MG/ML SYRINGE SQ SCH ×2 (14:05→20:44)
[2016-07-16 14:10] LABS: Glucose,Whole Blood 213 mg/dL (75-99)
[2016-07-16] MEDS: SODIUM CHLORIDE 0.9% 1,000 ML IV SCH ×2 (15:09→16:05)
--- NOTE | 2016-07-16 16:02 | XR ---
EXAMINATION TYPE: XR chest 2V DATE OF EXAM: 07/16/2016 1:29 PM COMPARISON: 07/14/2016 TECHNIQUE: PA and lateral views submitted. HISTORY: Shortness of breath FINDINGS: Cardiomegaly and diffuse interstitial pattern seen with bilateral lower lobe consolidation and tiny e ffusion. Stimulator device within the spinal canal. No pneumothorax. Left-sided PICC line noted. Find ings are stable. IMPRESSION: 1. Findings are stable with bilateral lower lobe atelectasis and tiny effusion. Infiltrate not exclud ed. 2. Correlate for mild central venous congestion.
[2016-07-16] MEDS: PANTOPRAZOLE 40 MG/10 ML VIAL IVP SCH (16:17)
[2016-07-16 16:39] LABS: Glucose,Whole Blood 194 mg/dL (75-99)
[2016-07-16] MEDS ORDERED: WARFARIN 5 MG TAB PO ONE (18:00)
[2016-07-16 18:36] LABS: Glucose,Whole Blood 194 mg/dL (75-99)
[2016-07-16 20:14] LABS: Glucose,Whole Blood 237 mg/dL (75-99)
[2016-07-16] MEDS: MONTELUKAST 10 MG TAB PO SCH (20:44)
[2016-07-16] MEDS: LOSARTAN 50 MG TAB PO SCH (20:44)
[2016-07-16] MEDS: POLYETHYLENE GLYCOL 3350 17 GM POWD.PACK PO SCH (20:45)
[2016-07-16] MEDS: PRAVASTATIN SODIUM 20 MG TAB PO SCH (20:45)
[2016-07-16 22:01] LABS: Glucose,Whole Blood 257 mg/dL (75-99)
[2016-07-17 00:18] LABS: Glucose,Whole Blood 266 mg/dL (75-99)
[2016-07-17] MEDS: methylPREDNISolone SOD SUCCI 125 MG/2 ML VIAL IV SCH ×2 (00:18→06:26)
[2016-07-17 02:20] LABS: Glucose,Whole Blood 223 mg/dL (75-99)
[2016-07-17] MEDS: SODIUM CHLORIDE 0.9% 1,000 ML IV SCH ×3 (04:07→20:57)
[2016-07-17 04:12] LABS: Glucose,Whole Blood 194 mg/dL (75-99)
[2016-07-17 06:11] LABS: Glucose,Whole Blood 180 mg/dL (75-99)
[2016-07-17 07:05] LABS: Anisocytosis Slight; Basophils % (A) 0 %; CH 28.5; CHCM 31.2; Eosinophils % (A) 0 %; HCT 27.5 % (34.0-46.0); HDW 3.71; HGB 8.7 gm/dL (11.4-16.0); Hypochromasia Marked; Luc # (Auto) 0.18; Luc % (Auto) 1; Lymphocytes % (A) 4 %; MCH 28.9 pg (25.0-35.0); MCHC 31.4 g/dL (31.0-37.0); Mean Platelet Volume 7.8; Monocytes # (A) 0.9 k/uL (0-1.0); Monocytes % (A) 4 %; Neutrophils # (A) 20.7 k/uL (1.3-7.7); Neutrophils % (A) 91 %; Poikilocytosis Slight; RDW 17.9 % (11.5-15.5); WBC 22.8 k/uL (3.8-10.6); WBC (Perox) 24.17
[2016-07-17 07:09] LABS: MCV 91.9 fL (80.0-100.0)
[2016-07-17 07:10] LABS: INR 1.8 (<1.1); Prothrombin Time 17.2 sec (9.0-12.0)
[2016-07-17 07:16] LABS: Calcium 7.6 mg/dL (8.4-10.2); Potassium 4.3 mmol/L (3.5-5.1); Total Bilirubin 0.4 mg/dL (0.2-1.3); Total Protein 5.6 g/dL (6.3-8.2)
[2016-07-17 08:05] LABS: Glucose,Whole Blood 172 mg/dL (75-99)
[2016-07-17] MEDS: METOPROLOL SUCCINATE (ER) 50 MG TAB.ER.24H PO SCH (08:25)
[2016-07-17] MEDS: PANTOPRAZOLE 40 MG/10 ML VIAL IVP SCH (08:26)
[2016-07-17] MEDS: BUDESONIDE 1 MG/2 ML NEBU INHALATION SCH ×2 (08:28→19:27)
[2016-07-17] MEDS: ENOXAPARIN 100 MG/ML SYRINGE SQ SCH (08:28)
[2016-07-17] MEDS: IPRATROPIUM-ALBUTEROL 3 ML NEB INHALATION SCH ×4 (08:28→19:28)
[2016-07-17] MEDS: FERROUS SULFATE 325 MG TAB PO SCH ×2 (08:29→20:54)
[2016-07-17] MEDS: DIGOXIN 125 MCG TAB PO SCH (08:29)
[2016-07-17] MEDS: ALPRAZolam 0.25 MG TAB PO SCH ×2 (08:30→20:54)
[2016-07-17] MEDS: DOCUSATE 100 MG CAP PO SCH ×2 (08:30→20:54)
[2016-07-17] MEDS: INSULIN LISPRO (humaLOG) 300 UNIT/3 ML VIAL SQ SCH ×3 (08:30→18:10)
[2016-07-17] MEDS: guaiFENesin 600 MG TABLET.ER PO SCH ×2 (08:31→20:54)
[2016-07-17] MEDS: FUROSEMIDE 40 MG TAB PO SCH ×2 (08:31→17:01)
[2016-07-17 10:01] LABS: Glucose,Whole Blood 245 mg/dL (75-99)
[2016-07-17 12:03] LABS: Glucose,Whole Blood 278 mg/dL (75-99)
[2016-07-17] MEDS: INSULIN REGULAR 100 UNIT in SODIUM CHLORIDE 0.9% 100 ML IV SCH (12:03)
--- NOTE | 2016-07-17 12:08 | P.PN ---
Subjective Patient is doing fairly well today. No events overnight. Objective - Vital Signs Vital signs: Vital Signs Temp 97.1 F L 07/17/16 07:00 Pulse 76 07/17/16 11:55 Resp 18 07/17/16 07:00 BP 145/67 07/17/16 07:00 Pulse Ox 95 07/17/16 08:30 Intake & Output 07/16/16 07/17/16 07/17/16 18:59 06:59 18:59 Intake Total 364.700 374.383 30.433 Balance 364.700 374.383 30.433 Intake: IV 50 Intake, IV Titration 64.700 64.383 30.433 Amount Insulin Regular 100 unit 64.700 64.383 30.433 In Sodium Chloride 0.9% 100 ml @ Titrate IV .Q0M [facility] Rx#:[id number] Oral 250 Blood Product 0 310 Rc As-1 Unit 0 310 [id number] Other: Voiding Method Bedpan Bedpan # Voids 2 2 - Exam General: The patient is awake and alert, in no distress Eye: there is normal conjunctiva bilaterally. Neck: The neck is supple, there is no JVD. Cardiovascular: Normal S1-S2, no S3-S4, no murmurs. Respiratory: Lungs clear to a anterior chest uscultation bilaterally Gastrointestinal: Abdomen is soft, nontender Musculoskeletal: There is no pedal edema. Neurological:. Speech is normal. Skin: Skin is warm and dry - Labs CBC & Chem 7: 07/17/16 06:50 07/17/16 06:50 Labs: Abnormal Lab Results - Last 24 Hours (Table) 07/16/16 07/16/16 07/16/16 Range/Units 07:44 14:05 15:20 WBC (3.8-10.6) k/uL RBC (3.80-5.40) m/uL Hgb (11.4-16.0) gm/dL Hct (34.0-46.0) % RDW (11.5-15.5) % Neutrophils # (1.3-7.7) k/uL PT (9.0-12.0) sec BUN (7-17) mg/dL Creatinine (0.52-1.04) mg/dL Glucose (74-99) mg/dL POC Glucose (mg/dL) 213 H (75-99) mg/dL Calcium (8.4-10.2) mg/dL TIBC 240 L (265-497) ug/dL Total Protein (6.3-8.2) g/dL Albumin (3.5-5.0) g/dL Crossmatch See Detail 07/16/16 07/16/16 07/16/16 Range/Units 16:26 18:34 20:13 WBC (3.8-10.6) k/uL RBC (3.80-5.40) m/uL Hgb (11.4-16.0) gm/dL Hct (34.0-46.0) % RDW (11.5-15.5) % Neutrophils # (1.3-7.7) k/uL PT (9.0-12.0) sec BUN (7-17) mg/dL Creatinine (0.52-1.04) mg/dL Glucose (74-99) mg/dL POC Glucose (mg/dL) 194 H 194 H 237 H (75-99) mg/dL Calcium (8.4-10.2) mg/dL TIBC (265-497) ug/dL Total Protein (6.3-8.2) g/dL Albumin (3.5-5.0) g/dL Crossmatch 07/16/16 07/17/16 07/17/16 Range/Units 21:59 00:14 02:15 WBC (3.8-10.6) k/uL RBC (3.80-5.40) m/uL Hgb (11.4-16.0) gm/dL Hct (34.0-46.0) % RDW (11.5-15.5) % Neutrophils # (1.3-7.7) k/uL PT (9.0-12.0) sec BUN (7-17) mg/dL Creatinine (0.52-1.04) mg/dL Glucose (74-99) mg/dL POC Glucose (mg/dL) 257 H 266 H 223 H (75-99) mg/dL Calcium (8.4-10.2) mg/dL TIBC (265-497) ug/dL Total Protein (6.3-8.2) g/dL Albumin (3.5-5.0) g/dL Crossmatch 07/17/16 07/17/16 07/17/16 Range/Units 04:10 06:08 06:50 WBC 22.8 H (3.8-10.6) k/uL RBC 3.00 L (3.80-5.40) m/uL Hgb 8.7 L (11.4-16.0) gm/dL Hct 27.5 L (34.0-46.0) % RDW 17.9 H (11.5-15.5) % Neutrophils # 20.7 H (1.3-7.7) k/uL PT (9.0-12.0) sec BUN (7-17) mg/dL Creatinine (0.52-1.04) mg/dL Glucose (74-99) mg/dL POC Glucose (mg/dL) 194 H 180 H (75-99) mg/dL Calcium (8.4-10.2) mg/dL TIBC (265-497) ug/dL Total Protein (6.3-8.2) g/dL Albumin (3.5-5.0) g/dL Crossmatch 07/17/16 07/17/16 07/17/16 Range/Units 06:50 06:50 08:00 WBC (3.8-10.6) k/uL RBC (3.80-5.40) m/uL Hgb (11.4-16.0) gm/dL Hct (34.0-46.0) % RDW (11.5-15.5) % Neutrophils # (1.3-7.7) k/uL PT 17.2 H (9.0-12.0) sec BUN 68 H (7-17) mg/dL Creatinine 1.39 H (0.52-1.04) mg/dL Glucose 161 H (74-99) mg/dL POC Glucose (mg/dL) 172 H (75-99) mg/dL Calcium 7.6 L (8.4-10.2) mg/dL TIBC (265-497) ug/dL Total Protein 5.6 L (6.3-8.2) g/dL Albumin 2.6 L (3.5-5.0) g/dL Crossmatch 07/17/16 07/17/16 Range/Units 09:59 12:01 WBC (3.8-10.6) k/uL RBC (3.80-5.40) m/uL Hgb (11.4-16.0) gm/dL Hct (34.0-46.0) % RDW (11.5-15.5) % Neutrophils # (1.3-7.7) k/uL PT (9.0-12.0) sec BUN (7-17) mg/dL Creatinine (0.52-1.04) mg/dL Glucose (74-99) mg/dL POC Glucose (mg/dL) 245 H 278 H (75-99) mg/dL Calcium (8.4-10.2) mg/dL TIBC (265-497) ug/dL Total Protein (6.3-8.2) g/dL Albumin (3.5-5.0) g/dL Crossmatch Microbiology - Last 24 Hours (Table) 07/13/16 15:10 Blood Culture - Final Blood 07/16/16 09:30 Gram Stain - Preliminary Bronchial Washings - Left Bronchial Washings Culture - Preliminary 07/13/16 15:10 Blood Culture Gram Stain - Final Blood Blood Culture - Final Staphylococcus epidermidis 07/16/16 09:30 Acid Fast Bacilli Culture - Preliminary Bronchial Washings - Left 07/16/16 09:30 Fungal Culture - Preliminary Bronchial Washings - Left Assessment and Plan Plan: #1 bacterial pneumonia with sepsis present on admission: Patient underwent bronchoscopy with BAL. Currently on Levaquin and vancomycin. Followed by both pulmonary and infectious disease. Await bronchial culture results #2 acute systolic congestive heart failure exacerbation: Elevated BNP level on admission. Patient receiving oral Lasix. #3 urinary tract infection : Urine culture Enterobacter cloacae and pseudomonas aeruginosa. Continue current antibiotics. Dr. Wild following. #4 left groin surgical wound infection with known history of seroma. Evaluated by Dr. García. Continue current wound care #5 chronic atrial fibrillation #6 recent left lower extremity arterial occlusion requiring surgical intervention by vascular surgery Dr. García #7 diabetes mellitus type 2 on insulin drip secondary to steroids #8 severe protein calorie malnutrition: Start protein supplement poor nutritional status was decreased albumin 2.6 will have a nutrition consult #9 iron deficiency anemia : With history of GI bleed and unable to proceed with colonoscopy due to multiple complications had EGD at [facility] a few months ago that was unremarkable. Check iron studies. Check stool for occult blood. Hemoglobin has dropped to 7.6. #10 acute exacerbation of chronic obstructive pulmonary disease continue steroids and bronchodilators #11 acute kidney injury: Creatinine is up to 1.64. Lasix held yesterday evening. Continue to monitor Today, I had a prolonged discussion with the patient's and her family about anticoagulation. We discussed risks and benefits. We also discussed her ongoing and recurrent GI bleed and her requiring blood transfusion almost every 2-3 weeks. We discussed that sometimes the risks outweigh the benefits in terms of anticoagulation. I advised her to discontinue Coumadin and continue with antiplatelet such as aspirin or possibly Plavix given her underlying A. 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 Patient would like to discuss with her family further. We will continue Coumadin for now. Patient and her daughter verbalized understanding.
[2016-07-17 14:07] LABS: Glucose,Whole Blood 210 mg/dL (75-99)
[2016-07-17] MEDS: HYDROcodone/APAP 10-325MG 1 EACH TAB PO PRN (14:19)
[2016-07-17 16:09] LABS: Glucose,Whole Blood 203 mg/dL (75-99)
--- NOTE | 2016-07-17 16:50 | PN ---
Ms. Maria De Jesus Bui is a 76-year-old female, seen, evaluated, examined on the fourth floor. Clinically patient is doing well, has been having issues associated with shortness of breath. Patient is status post bronchoscopy and pulmonary toilet postoperative day #1. Feels much better. She had episode of left foot pain yesterday, transient; however, resolved now. She denies any pain at this point of time. Her hemodynamic status is stable. Her last set of vitals include blood pressure is 145/67, respiratory rate 18, pulse 61, temperature 98, saturation on 95% on 4 L oxygen. HEENT EXAMINATION: Otherwise atraumatic, normocephalic. Pharynx is clear. Narrow pharyngeal opening is present. NECK: Supple without lymphadenopathy, jugular venous distention or carotid bruit. LUNGS: Bilateral good air entry is present with basal bronchial breath sounds. HEART: Regular rate and rhythm. S1 and S2 audible. ABDOMEN: Soft. No rebound or rigidity. EXTREMITIES: +1 peripheral pulses. NEUROLOGICAL EXAMINATION: Awake and alert. Good color of the foot has been noted. The laboratory data and medications reviewed. The white cell count is 22,800, hemoglobin 8.7, hematocrit 27, platelet count 232,000. PT and INR are 17.2 and 1.8. Sodium 141, potassium 4.3. BUN and creatinine 68 and 1.39. Glucose 161. The medications reviewed and include Tylenol with Codeine 4 times a day, DuoNeb unit dose updraft 4 times a day and as needed, Xanax 0.25 two times a day, Pulmicort 2 times a day, Lanoxin 125 mcg daily, ferrous sulfate, Lasix 40 mg p.o. daily, Mucinex, Humalog sliding scale insulin, Levaquin 750 mg ( ), Cozaar 50 mg daily, milk of magnesia, Solu-Medrol 40 q.12 hourly, metoprolol. Also on Singulair Protonix, Pravachol, IV fluid normal saline and vancomycin. Coumadin is 5 mg daily. IMPRESSION: 1. Bilateral pneumonia likely mixed bacterial gram-negative with acute on chronic hypoxic respiratory failure with extensive mucus plugging, status post bronchoscopy and pulmonary toilet. 2. Morbid obesity with component of obesity hypoventilation and obstructive sleep apnea. She has been using her CPAP machine. 3. Chronic renal failure stage III, being monitored and observed. 4. Severe chronic obstructive pulmonary disease and emphysema with component of chronic persistent asthma, worsening with the recent pneumonia and respiratory issues. Continue with steroids, breathing treatments and pulmonary toilet. 5. Hyperglycemia and diabetes mellitus. 6. Peripheral arterial disease. 7. Heart failure, likely chronic diastolic heart failure. Will follow.
[2016-07-17 18:01] LABS: Glucose,Whole Blood 171 mg/dL (75-99)
[2016-07-17] MEDS: LEVOFLOXACIN 750MG-D5W PMX 750 MG in DEXTROSE/WATER 1 150ML.BAG IVPB SCH (18:11)
[2016-07-17] MEDS: WARFARIN 5 MG TAB PO SCH (18:14)
[2016-07-17 20:10] LABS: Glucose,Whole Blood 178 mg/dL (75-99)
[2016-07-17] MEDS: LOSARTAN 50 MG TAB PO SCH (20:54)
[2016-07-17] MEDS: METOPROLOL SUCCINATE (ER) 100 MG TAB.ER.24H PO SCH (20:55)
[2016-07-17] MEDS: methylPREDNISolone SOD SUCCI 40 MG/ML 1 ML VIAL IV SCH (20:55)
[2016-07-17] MEDS: MONTELUKAST 10 MG TAB PO SCH (20:55)
[2016-07-17] MEDS: POLYETHYLENE GLYCOL 3350 17 GM POWD.PACK PO SCH (20:56)
[2016-07-17] MEDS: VANCOMYCIN 2,250 MG in SODIUM CHLORIDE 0.9% 500 ML IVPB SCH (20:56)
[2016-07-17] MEDS: PRAVASTATIN SODIUM 20 MG TAB PO SCH (20:56)
[2016-07-17 22:05] LABS: Glucose,Whole Blood 193 mg/dL (75-99)
[2016-07-18 00:12] LABS: Glucose,Whole Blood 189 mg/dL (75-99)
[2016-07-18] MEDS: HYDROcodone/APAP 10-325MG 1 EACH TAB PO PRN ×2 (01:56→13:01)
[2016-07-18 02:12] LABS: Glucose,Whole Blood 176 mg/dL (75-99)
[2016-07-18 04:03] LABS: Glucose,Whole Blood 165 mg/dL (75-99)
[2016-07-18] MEDS: INSULIN REGULAR 100 UNIT in SODIUM CHLORIDE 0.9% 100 ML IV SCH ×2 (04:45→23:51)
[2016-07-18] MEDS: SODIUM CHLORIDE 0.9% 1,000 ML IV SCH (05:38)
[2016-07-18 06:09] LABS: Glucose,Whole Blood 203 mg/dL (75-99)
[2016-07-18 07:35] LABS: INR 1.8 (<1.1)
[2016-07-18 07:42] LABS: Anisocytosis Slight; Basophils % (A) 0 %; CH 28.3; CHCM 29.9; Eosinophils # (A) 0.1 k/uL (0-0.7); Eosinophils % (A) 1 %; HCT 26.9 % (34.0-46.0); HDW 3.45; HGB 8.1 gm/dL (11.4-16.0); Hypochromasia Marked; Luc % (Auto) 1; Lymphocytes # (A) 1.3 k/uL (1.0-4.8); Lymphocytes % (A) 7 %; MCH 28.7 pg (25.0-35.0); MCHC 30.2 g/dL (31.0-37.0); MCV 95.2 fL (80.0-100.0); Macrocytosis Slight; Mean Platelet Volume 8.1; Monocytes # (A) 0.9 k/uL (0-1.0); Monocytes % (A) 5 %; Neutrophils # (A) 16.7 k/uL (1.3-7.7); Neutrophils % (A) 87 %; Poikilocytosis Slight; RBC 2.82 m/uL (3.80-5.40); RDW 18.5 % (11.5-15.5); WBC 19.2 k/uL (3.8-10.6); WBC (Perox) 19.47
[2016-07-18 07:53] LABS: Calcium 7.5 mg/dL (8.4-10.2); Potassium 4.9 mmol/L (3.5-5.1); Total Bilirubin 0.4 mg/dL (0.2-1.3); Total Protein 4.9 g/dL (6.3-8.2)
[2016-07-18] MEDS: INSULIN LISPRO (humaLOG) 300 UNIT/3 ML VIAL SQ SCH ×3 (08:04→18:00)
[2016-07-18] MEDS: ALPRAZolam 0.25 MG TAB PO SCH ×2 (08:05→21:57)
[2016-07-18] MEDS: FERROUS SULFATE 325 MG TAB PO SCH ×2 (08:05→20:52)
[2016-07-18] MEDS: PANTOPRAZOLE 40 MG/10 ML VIAL IVP SCH (08:05)
[2016-07-18] MEDS: DIGOXIN 125 MCG TAB PO SCH (08:05)
[2016-07-18] MEDS: methylPREDNISolone SOD SUCCI 40 MG/ML 1 ML VIAL IV SCH ×2 (08:05→20:52)
[2016-07-18] MEDS: DOCUSATE 100 MG CAP PO SCH ×2 (08:05→20:52)
[2016-07-18] MEDS: guaiFENesin 600 MG TABLET.ER PO SCH ×2 (08:06→20:51)
[2016-07-18] MEDS: METOPROLOL SUCCINATE (ER) 100 MG TAB.ER.24H PO SCH ×2 (08:06→20:52)
[2016-07-18] MEDS: FUROSEMIDE 40 MG TAB PO SCH ×2 (08:06→16:13)
[2016-07-18 08:07] LABS: Glucose,Whole Blood 192 mg/dL (75-99)
[2016-07-18] MEDS: BUDESONIDE 1 MG/2 ML NEBU INHALATION SCH ×2 (08:51→19:12)
[2016-07-18] MEDS: IPRATROPIUM-ALBUTEROL 3 ML NEB INHALATION SCH ×4 (08:51→19:12)
[2016-07-18 09:50] LABS: Glucose,Whole Blood 245 mg/dL (75-99)
[2016-07-18 11:59] LABS: Glucose,Whole Blood 191 mg/dL (75-99)
[2016-07-18 14:12] LABS: Glucose,Whole Blood 217 mg/dL (75-99)
--- NOTE | 2016-07-18 14:24 | P.PN ---
Subjective Patient is doing fairly well today. No events overnight. Objective - Vital Signs Vital signs: Vital Signs Temp 96.8 F L 07/18/16 07:00 Pulse 76 07/18/16 12:07 Resp 24 07/18/16 08:00 BP 141/59 07/18/16 07:00 Pulse Ox 96 07/18/16 07:00 Intake & Output 07/17/16 07/18/16 07/18/16 18:59 06:59 18:59 Intake Total 1279.083 55.768 47.583 Balance 1279.083 55.768 47.583 Weight 117.934 kg Intake: Intake, IV Titration 79.083 55.768 47.583 Amount Insulin Regular 100 unit 79.083 55.768 47.583 In Sodium Chloride 0.9% 100 ml @ Titrate IV .Q0M [facility] Rx#:[id number] Oral 1200 Other: Voiding Method Bedpan Bedpan Bedpan # Voids 2 2 3 # Bowel Movements 1 1 - Exam General: The patient is awake and alert, in no distress Eye: there is normal conjunctiva bilaterally. Neck: The neck is supple, there is no JVD. Cardiovascular: Normal S1-S2, no S3-S4, no murmurs. Respiratory: Lungs clear to a anterior chest uscultation bilaterally Gastrointestinal: Abdomen is soft, nontender Musculoskeletal: There is no pedal edema. Neurological:. Speech is normal. Skin: Skin is warm and dry - Labs CBC & Chem 7: 07/18/16 07:30 07/18/16 07:10 Labs: Abnormal Lab Results - Last 24 Hours (Table) 07/17/16 07/17/16 07/17/16 Range/Units 16:07 17:58 20:08 WBC (3.8-10.6) k/uL RBC (3.80-5.40) m/uL Hgb (11.4-16.0) gm/dL Hct (34.0-46.0) % MCHC (31.0-37.0) g/dL RDW (11.5-15.5) % Neutrophils # (1.3-7.7) k/uL PT (9.0-12.0) sec Chloride (98-107) mmol/L BUN (7-17) mg/dL Creatinine (0.52-1.04) mg/dL Glucose (74-99) mg/dL POC Glucose (mg/dL) 203 H 171 H 178 H (75-99) mg/dL Calcium (8.4-10.2) mg/dL AST (14-36) U/L Alkaline Phosphatase (38-126) U/L Total Protein (6.3-8.2) g/dL Albumin (3.5-5.0) g/dL 07/17/16 07/18/16 07/18/16 Range/Units 22:01 00:10 02:09 WBC (3.8-10.6) k/uL RBC (3.80-5.40) m/uL Hgb (11.4-16.0) gm/dL Hct (34.0-46.0) % MCHC (31.0-37.0) g/dL RDW (11.5-15.5) % Neutrophils # (1.3-7.7) k/uL PT (9.0-12.0) sec Chloride (98-107) mmol/L BUN (7-17) mg/dL Creatinine (0.52-1.04) mg/dL Glucose (74-99) mg/dL POC Glucose (mg/dL) 193 H 189 H 176 H (75-99) mg/dL Calcium (8.4-10.2) mg/dL AST (14-36) U/L Alkaline Phosphatase (38-126) U/L Total Protein (6.3-8.2) g/dL Albumin (3.5-5.0) g/dL 07/18/16 07/18/16 07/18/16 Range/Units 04:00 06:04 07:10 WBC (3.8-10.6) k/uL RBC (3.80-5.40) m/uL Hgb (11.4-16.0) gm/dL Hct (34.0-46.0) % MCHC (31.0-37.0) g/dL RDW (11.5-15.5) % Neutrophils # (1.3-7.7) k/uL PT 17.0 H (9.0-12.0) sec Chloride (98-107) mmol/L BUN (7-17) mg/dL Creatinine (0.52-1.04) mg/dL Glucose (74-99) mg/dL POC Glucose (mg/dL) 165 H 203 H (75-99) mg/dL Calcium (8.4-10.2) mg/dL AST (14-36) U/L Alkaline Phosphatase (38-126) U/L Total Protein (6.3-8.2) g/dL Albumin (3.5-5.0) g/dL 07/18/16 07/18/16 07/18/16 Range/Units 07:10 07:30 08:03 WBC 19.2 H (3.8-10.6) k/uL RBC 2.82 L (3.80-5.40) m/uL Hgb 8.1 L (11.4-16.0) gm/dL Hct 26.9 L (34.0-46.0) % MCHC 30.2 L (31.0-37.0) g/dL RDW 18.5 H (11.5-15.5) % Neutrophils # 16.7 H (1.3-7.7) k/uL PT (9.0-12.0) sec Chloride 109 H (98-107) mmol/L BUN 76 H (7-17) mg/dL Creatinine 1.28 H (0.52-1.04) mg/dL Glucose 166 H (74-99) mg/dL POC Glucose (mg/dL) 192 H (75-99) mg/dL Calcium 7.5 L (8.4-10.2) mg/dL AST 46 H (14-36) U/L Alkaline Phosphatase 37 L (38-126) U/L Total Protein 4.9 L (6.3-8.2) g/dL Albumin 2.3 L (3.5-5.0) g/dL 07/18/16 07/18/16 07/18/16 Range/Units 09:48 11:54 14:09 WBC (3.8-10.6) k/uL RBC (3.80-5.40) m/uL Hgb (11.4-16.0) gm/dL Hct (34.0-46.0) % MCHC (31.0-37.0) g/dL RDW (11.5-15.5) % Neutrophils # (1.3-7.7) k/uL PT (9.0-12.0) sec Chloride (98-107) mmol/L BUN (7-17) mg/dL Creatinine (0.52-1.04) mg/dL Glucose (74-99) mg/dL POC Glucose (mg/dL) 245 H 191 H 217 H (75-99) mg/dL Calcium (8.4-10.2) mg/dL AST (14-36) U/L Alkaline Phosphatase (38-126) U/L Total Protein (6.3-8.2) g/dL Albumin (3.5-5.0) g/dL Microbiology - Last 24 Hours (Table) 07/16/16 09:30 Gram Stain - Preliminary Bronchial Washings - Left Bronchial Washings Culture - Preliminary Presumptive Staph aureus Gabriela albicans 07/17/16 11:50 Gram Stain - Preliminary Sputum 07/16/16 09:30 Acid Fast Bacilli Smear - Final Bronchial Washings - Left Acid Fast Bacilli Culture - Preliminary Assessment and Plan Plan: #1 bacterial pneumonia with sepsis present on admission: Patient underwent bronchoscopy with BAL,awaiting cultures to finalize. Followed by both pulmonary and infectious disease. #2 acute systolic congestive heart failure exacerbation: Elevated BNP level on admission. Patient receiving oral Lasix. #3 urinary tract infection : Urine culture Enterobacter cloacae and pseudomonas aeruginosa. Continue current antibiotics. Dr. Wild following. #4 left groin surgical wound infection with known history of seroma. Evaluated by Dr. García. Continue current wound care #5 chronic atrial fibrillation #6 recent left lower extremity arterial occlusion requiring surgical intervention by vascular surgery Dr. García #7 diabetes mellitus type 2 on insulin drip secondary to steroids #8 severe protein calorie malnutrition: Start protein supplement poor nutritional status was decreased albumin 2.6 will have a nutrition consult #9 iron deficiency anemia : With history of GI bleed and unable to proceed with colonoscopy due to multiple complications had EGD at [facility] a few months ago that was unremarkable. Check iron studies. Check stool for occult blood. Hemoglobin has dropped to 7.6. #10 acute exacerbation of chronic obstructive pulmonary disease continue steroids and bronchodilators #11 acute kidney injury: Creatinine is up to 1.64. Lasix held yesterday evening. Continue to monitor I had a prolonged discussion with the patient's and her family about anticoagulation. We discussed risks and benefits. We also discussed her ongoing and recurrent GI bleed and her requiring blood transfusion almost every 2-3 weeks. We discussed that sometimes the risks outweigh the benefits in terms of anticoagulation. I advised her to discontinue Coumadin and continue with antiplatelet such as aspirin or possibly Plavix given her underlying A. 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 Patient would like to discuss with her family further. We will continue Coumadin for now. Patient and her daughter verbalized understanding.
--- NOTE | 2016-07-18 14:28 | P.PN ---
Subjective This is a 76-year-old female patient is being evaluated and examined today on the fourth floor. This patient is well-known to our services. This patient was recently hospitalized multiple times over the last few months with pneumonia , significant bronchiectasis, COPD exacerbation, GI bleed, CHF exacerbation and left leg ischemia status post thrombectomy. Patient was recently admitted to [facility] after discharge from hospital. Patient was currently on 3 L of oxygen at the [facility]. The patient was transferred here from the [facility] with increasing weakness, increasing shortness of breath, productive cough and decreased oral intake. The patient has had this going on for about 10 days. The patient was admitted with sepsis, urinary tract infection and pneumonia. Chest x-ray was reviewed. Upon examination the patient's resting up in bed on 4 L of supplemental oxygen via nasal cannula. She continues to sound congested and has a cough that is productive with white sputum. Objective - Vital Signs Vital signs: Vital Signs Temp 96.8 F L 07/18/16 07:00 Pulse 76 07/18/16 12:07 Resp 24 07/18/16 08:00 BP 141/59 07/18/16 07:00 Pulse Ox 96 07/18/16 07:00 Intake & Output 07/17/16 07/18/16 07/18/16 18:59 06:59 18:59 Intake Total 1279.083 55.768 47.583 Balance 1279.083 55.768 47.583 Weight 117.934 kg Intake: Intake, IV Titration 79.083 55.768 47.583 Amount Insulin Regular 100 unit 79.083 55.768 47.583 In Sodium Chloride 0.9% 100 ml @ Titrate IV .Q0M [facility] Rx#:[id number] Oral 1200 Other: Voiding Method Bedpan Bedpan Bedpan # Voids 2 2 3 # Bowel Movements 1 1 - Exam GENERAL EXAM: Alert, active, comfortable in no apparent distress. HEAD: Normocephalic. EYES: Normal reaction of pupils, equal size. NOSE: Clear with pink turbinates. THROAT: No erythema or exudates. NECK: No masses, no JVD. CHEST: No chest wall deformity. LUNGS: Lung sounds noted to be bilaterally coarse and congested, scattered rhonchi and crackles. Basis diminished. CVS: S1 and S2 normal with no audible mumurs, regular rhythm. ABDOMEN: No hepatosplenomegaly, normal bowel sounds, no guarding or rigidity. EXTREMITIES: +1-2 edema noted, pedal pulses palpable. SKIN: No rashes CENTRAL NERVOUS SYSTEM: No focal deficits, tone is normal in all 4 extremities. - Labs CBC & Chem 7: 07/18/16 07:30 07/18/16 07:10 Labs: Abnormal Lab Results - Last 24 Hours (Table) 07/17/16 07/17/16 07/17/16 Range/Units 16:07 17:58 20:08 WBC (3.8-10.6) k/uL RBC (3.80-5.40) m/uL Hgb (11.4-16.0) gm/dL Hct (34.0-46.0) % MCHC (31.0-37.0) g/dL RDW (11.5-15.5) % Neutrophils # (1.3-7.7) k/uL PT (9.0-12.0) sec Chloride (98-107) mmol/L BUN (7-17) mg/dL Creatinine (0.52-1.04) mg/dL Glucose (74-99) mg/dL POC Glucose (mg/dL) 203 H 171 H 178 H (75-99) mg/dL Calcium (8.4-10.2) mg/dL AST (14-36) U/L Alkaline Phosphatase (38-126) U/L Total Protein (6.3-8.2) g/dL Albumin (3.5-5.0) g/dL 07/17/16 07/18/16 07/18/16 Range/Units 22:01 00:10 02:09 WBC (3.8-10.6) k/uL RBC (3.80-5.40) m/uL Hgb (11.4-16.0) gm/dL Hct (34.0-46.0) % MCHC (31.0-37.0) g/dL RDW (11.5-15.5) % Neutrophils # (1.3-7.7) k/uL PT (9.0-12.0) sec Chloride (98-107) mmol/L BUN (7-17) mg/dL Creatinine (0.52-1.04) mg/dL Glucose (74-99) mg/dL POC Glucose (mg/dL) 193 H 189 H 176 H (75-99) mg/dL Calcium (8.4-10.2) mg/dL AST (14-36) U/L Alkaline Phosphatase (38-126) U/L Total Protein (6.3-8.2) g/dL Albumin (3.5-5.0) g/dL 07/18/16 07/18/16 07/18/16 Range/Units 04:00 06:04 07:10 WBC (3.8-10.6) k/uL RBC (3.80-5.40) m/uL Hgb (11.4-16.0) gm/dL Hct (34.0-46.0) % MCHC (31.0-37.0) g/dL RDW (11.5-15.5) % Neutrophils # (1.3-7.7) k/uL PT 17.0 H (9.0-12.0) sec Chloride (98-107) mmol/L BUN (7-17) mg/dL Creatinine (0.52-1.04) mg/dL Glucose (74-99) mg/dL POC Glucose (mg/dL) 165 H 203 H (75-99) mg/dL Calcium (8.4-10.2) mg/dL AST (14-36) U/L Alkaline Phosphatase (38-126) U/L Total Protein (6.3-8.2) g/dL Albumin (3.5-5.0) g/dL 07/18/16 07/18/16 07/18/16 Range/Units 07:10 07:30 08:03 WBC 19.2 H (3.8-10.6) k/uL RBC 2.82 L (3.80-5.40) m/uL Hgb 8.1 L (11.4-16.0) gm/dL Hct 26.9 L (34.0-46.0) % MCHC 30.2 L (31.0-37.0) g/dL RDW 18.5 H (11.5-15.5) % Neutrophils # 16.7 H (1.3-7.7) k/uL PT (9.0-12.0) sec Chloride 109 H (98-107) mmol/L BUN 76 H (7-17) mg/dL Creatinine 1.28 H (0.52-1.04) mg/dL Glucose 166 H (74-99) mg/dL POC Glucose (mg/dL) 192 H (75-99) mg/dL Calcium 7.5 L (8.4-10.2) mg/dL AST 46 H (14-36) U/L Alkaline Phosphatase 37 L (38-126) U/L Total Protein 4.9 L (6.3-8.2) g/dL Albumin 2.3 L (3.5-5.0) g/dL 07/18/16 07/18/16 07/18/16 Range/Units 09:48 11:54 14:09 WBC (3.8-10.6) k/uL RBC (3.80-5.40) m/uL Hgb (11.4-16.0) gm/dL Hct (34.0-46.0) % MCHC (31.0-37.0) g/dL RDW (11.5-15.5) % Neutrophils # (1.3-7.7) k/uL PT (9.0-12.0) sec Chloride (98-107) mmol/L BUN (7-17) mg/dL Creatinine (0.52-1.04) mg/dL Glucose (74-99) mg/dL POC Glucose (mg/dL) 245 H 191 H 217 H (75-99) mg/dL Calcium (8.4-10.2) mg/dL AST (14-36) U/L Alkaline Phosphatase (38-126) U/L Total Protein (6.3-8.2) g/dL Albumin (3.5-5.0) g/dL Microbiology - Last 24 Hours (Table) 07/16/16 09:30 Gram Stain - Preliminary Bronchial Washings - Left Bronchial Washings Culture - Preliminary Presumptive Staph aureus Gabriela albicans 07/17/16 11:50 Gram Stain - Preliminary Sputum 07/16/16 09:30 Acid Fast Bacilli Smear - Final Bronchial Washings - Left Acid Fast Bacilli Culture - Preliminary Assessment and Plan Plan: Assessment Pneumonia with sepsis Acute exacerbation of chronic obstructive pulmonary disease Acute on chronic hypoxic respiratory failure Acute on chronic systolic congestive heart failure Chronic atrial fibrillation Diabetes mellitus insulin-dependent Left groin Wound/infection Plan Medications have been reviewed and will be continued as ordered. Continue with pulmonary hygiene, coughing and deep breathing exercises, and supportive care. Supplemental oxygen to maintain oxygen saturations of 92% or better. Continue with IV antibiotics and IV steroids. Continue to wean down steroids. Continue nebulizer treatments. GI and DVT prophylaxis. We will obtain a sputum culture. Infectious disease also on consult. We will continue to monitor labs/results and adjust treatment as necessary. Further recommendations pending. I performed an examination of the patient and discussed their management with the nurse practitioner. I have reviewed the nurse practitioner's note and agree with the documented findings and plan of care.
[2016-07-18 16:04] LABS: Glucose,Whole Blood 209 mg/dL (75-99)
[2016-07-18] MEDS: WARFARIN 5 MG TAB PO SCH (18:00)
[2016-07-18 18:09] LABS: Glucose,Whole Blood 173 mg/dL (75-99)
[2016-07-18 20:14] LABS: Glucose,Whole Blood 166 mg/dL (75-99)
[2016-07-18] MEDS: LOSARTAN 50 MG TAB PO SCH (20:52)
[2016-07-18] MEDS: PRAVASTATIN SODIUM 20 MG TAB PO SCH (20:53)
[2016-07-18] MEDS: MONTELUKAST 10 MG TAB PO SCH (20:53)
[2016-07-18] MEDS: POLYETHYLENE GLYCOL 3350 17 GM POWD.PACK PO SCH (20:53)
[2016-07-18 22:24] LABS: Glucose,Whole Blood 181 mg/dL (75-99)
[2016-07-19 00:02] LABS: Glucose,Whole Blood 177 mg/dL (75-99)
[2016-07-19 02:19] LABS: Glucose,Whole Blood 152 mg/dL (75-99)
[2016-07-19 04:12] LABS: Glucose,Whole Blood 186 mg/dL (75-99)
[2016-07-19 06:11] LABS: Glucose,Whole Blood 169 mg/dL (75-99)
[2016-07-19 06:41] LABS: Anisocytosis Slight; Basophils # (A) 0.1 k/uL (0-0.2); Basophils % (A) 0 %; CH 28.1; CHCM 30.2; Eosinophils # (A) 0.1 k/uL (0-0.7); Eosinophils % (A) 1 %; HCT 25.9 % (34.0-46.0); HDW 3.39; HGB 7.9 gm/dL (11.4-16.0); Hypochromasia Marked; Luc % (Auto) 1; Lymphocytes # (A) 1.2 k/uL (1.0-4.8); Lymphocytes % (A) 6 %; MCH 28.6 pg (25.0-35.0); MCHC 30.6 g/dL (31.0-37.0); MCV 93.5 fL (80.0-100.0); Mean Platelet Volume 8.2; Monocytes # (A) 0.8 k/uL (0-1.0); Monocytes % (A) 4 %; Neutrophils # (A) 17.5 k/uL (1.3-7.7); Neutrophils % (A) 88 %; RBC 2.77 m/uL (3.80-5.40); RDW 18.7 % (11.5-15.5); WBC 19.8 k/uL (3.8-10.6); WBC (Perox) 19.42
[2016-07-19 06:50] LABS: Calcium 7.7 mg/dL (8.4-10.2); Potassium 4.7 mmol/L (3.5-5.1)
[2016-07-19] MEDS: IPRATROPIUM-ALBUTEROL 3 ML NEB INHALATION SCH ×4 (07:48→20:52)
[2016-07-19] MEDS: BUDESONIDE 1 MG/2 ML NEBU INHALATION SCH ×2 (07:48→20:52)
[2016-07-19 08:08] LABS: Glucose,Whole Blood 178 mg/dL (75-99)
[2016-07-19] MEDS: INSULIN LISPRO (humaLOG) 300 UNIT/3 ML VIAL SQ SCH ×3 (08:12→17:48)
[2016-07-19] MEDS: DIGOXIN 125 MCG TAB PO SCH (08:14)
[2016-07-19] MEDS: FERROUS SULFATE 325 MG TAB PO SCH ×2 (08:14→20:12)
[2016-07-19] MEDS: FUROSEMIDE 40 MG TAB PO SCH ×2 (08:14→15:37)
[2016-07-19] MEDS: guaiFENesin 600 MG TABLET.ER PO SCH ×2 (08:14→20:11)
[2016-07-19] MEDS: DOCUSATE 100 MG CAP PO SCH ×2 (08:14→20:12)
[2016-07-19] MEDS: METOPROLOL SUCCINATE (ER) 100 MG TAB.ER.24H PO SCH ×2 (08:14→20:11)
[2016-07-19] MEDS: PANTOPRAZOLE 40 MG/10 ML VIAL IVP SCH (08:14)
[2016-07-19] MEDS: methylPREDNISolone SOD SUCCI 40 MG/ML 1 ML VIAL IV SCH ×2 (08:15→20:12)
[2016-07-19] MEDS: ALPRAZolam 0.25 MG TAB PO SCH ×2 (08:17→21:50)
[2016-07-19] MEDS: VANCOMYCIN 2,250 MG in SODIUM CHLORIDE 0.9% 500 ML IVPB SCH (08:17)
[2016-07-19 09:54] LABS: Glucose,Whole Blood 212 mg/dL (75-99)
[2016-07-19 11:22] LABS: INR 2.1 (<1.1); Prothrombin Time 20.3 sec (9.0-12.0)
[2016-07-19 12:02] LABS: Glucose,Whole Blood 230 mg/dL (75-99)
[2016-07-19 14:06] LABS: Glucose,Whole Blood 211 mg/dL (75-99)
--- NOTE | 2016-07-19 14:39 | P.PN ---
Subjective Patient is resting comfortably. No events overnight. Objective - Vital Signs Vital signs: Vital Signs Temp 96.9 F L 07/19/16 07:00 Pulse 84 07/19/16 11:39 Resp 18 07/19/16 07:00 BP 154/78 07/19/16 07:00 Pulse Ox 97 07/19/16 07:50 Intake & Output 07/18/16 07/19/16 07/19/16 18:59 06:59 18:59 Intake Total 70.683 901.934 46.133 Output Total 1000 Balance 70.683 -98.066 46.133 Weight 117.934 kg Intake: Intake, IV Titration 70.683 51.934 46.133 Amount Insulin Regular 100 unit 70.683 51.934 46.133 In Sodium Chloride 0.9% 100 ml @ Titrate IV .Q0M [facility] Rx#:[id number] Oral 850 Output: Urine 1000 Other: Voiding Method Bedpan Bedpan Bedpan # Voids 3 1 1 # Bowel Movements 1 1 - Exam General: The patient is awake and alert, in no distress Eye: there is normal conjunctiva bilaterally. Neck: The neck is supple, there is no JVD. Cardiovascular: Normal S1-S2, no S3-S4, no murmurs. Respiratory: Lungs clear to a anterior chest uscultation bilaterally Gastrointestinal: Abdomen is soft, nontender Musculoskeletal: There is no pedal edema. Neurological:. Speech is normal. Skin: Skin is warm and dry - Labs CBC & Chem 7: 07/19/16 06:30 07/19/16 06:30 Labs: Abnormal Lab Results - Last 24 Hours (Table) 07/18/16 07/18/16 07/18/16 Range/Units 15:59 18:01 20:11 WBC (3.8-10.6) k/uL RBC (3.80-5.40) m/uL Hgb (11.4-16.0) gm/dL Hct (34.0-46.0) % MCHC (31.0-37.0) g/dL RDW (11.5-15.5) % Neutrophils # (1.3-7.7) k/uL PT (9.0-12.0) sec BUN (7-17) mg/dL Creatinine (0.52-1.04) mg/dL Glucose (74-99) mg/dL POC Glucose (mg/dL) 209 H 173 H 166 H (75-99) mg/dL Calcium (8.4-10.2) mg/dL 07/18/16 07/18/16 07/19/16 Range/Units 22:17 23:58 02:05 WBC (3.8-10.6) k/uL RBC (3.80-5.40) m/uL Hgb (11.4-16.0) gm/dL Hct (34.0-46.0) % MCHC (31.0-37.0) g/dL RDW (11.5-15.5) % Neutrophils # (1.3-7.7) k/uL PT (9.0-12.0) sec BUN (7-17) mg/dL Creatinine (0.52-1.04) mg/dL Glucose (74-99) mg/dL POC Glucose (mg/dL) 181 H 177 H 152 H (75-99) mg/dL Calcium (8.4-10.2) mg/dL 07/19/16 07/19/16 07/19/16 Range/Units 04:09 06:07 06:30 WBC 19.8 H (3.8-10.6) k/uL RBC 2.77 L (3.80-5.40) m/uL Hgb 7.9 L (11.4-16.0) gm/dL Hct 25.9 L (34.0-46.0) % MCHC 30.6 L (31.0-37.0) g/dL RDW 18.7 H (11.5-15.5) % Neutrophils # 17.5 H (1.3-7.7) k/uL PT (9.0-12.0) sec BUN (7-17) mg/dL Creatinine (0.52-1.04) mg/dL Glucose (74-99) mg/dL POC Glucose (mg/dL) 186 H 169 H (75-99) mg/dL Calcium (8.4-10.2) mg/dL 07/19/16 07/19/16 07/19/16 Range/Units 06:30 06:30 08:01 WBC (3.8-10.6) k/uL RBC (3.80-5.40) m/uL Hgb (11.4-16.0) gm/dL Hct (34.0-46.0) % MCHC (31.0-37.0) g/dL RDW (11.5-15.5) % Neutrophils # (1.3-7.7) k/uL PT 20.3 H (9.0-12.0) sec BUN 72 H (7-17) mg/dL Creatinine 1.28 H (0.52-1.04) mg/dL Glucose 152 H (74-99) mg/dL POC Glucose (mg/dL) 178 H (75-99) mg/dL Calcium 7.7 L (8.4-10.2) mg/dL 07/19/16 07/19/16 07/19/16 Range/Units 09:50 11:58 14:04 WBC (3.8-10.6) k/uL RBC (3.80-5.40) m/uL Hgb (11.4-16.0) gm/dL Hct (34.0-46.0) % MCHC (31.0-37.0) g/dL RDW (11.5-15.5) % Neutrophils # (1.3-7.7) k/uL PT (9.0-12.0) sec BUN (7-17) mg/dL Creatinine (0.52-1.04) mg/dL Glucose (74-99) mg/dL POC Glucose (mg/dL) 212 H 230 H 211 H (75-99) mg/dL Calcium (8.4-10.2) mg/dL Microbiology - Last 24 Hours (Table) 07/16/16 09:30 Fungal Culture - Preliminary Bronchial Washings - Left Gabriela albicans 07/17/16 11:50 Gram Stain - Preliminary Sputum Sputum Culture - Preliminary Presumptive Staph aureus Gabriela albicans 07/16/16 09:30 Gram Stain - Final Bronchial Washings - Left Bronchial Washings Culture - Final Methicillin resist S. aureus Gabriela albicans Assessment and Plan Plan: #1 bacterial pneumonia with sepsis present on admission: Patient underwent bronchoscopy with BAL, culture growing MRSA. Followed by both pulmonary and infectious disease. #2 acute systolic congestive heart failure exacerbation: Elevated BNP level on admission. Patient receiving oral Lasix. #3 urinary tract infection : Urine culture Enterobacter cloacae and pseudomonas aeruginosa. Continue current antibiotics. Dr. Wild following. #4 left groin surgical wound infection with known history of seroma. Evaluated by Dr. García. Continue current wound care #5 chronic atrial fibrillation #6 recent left lower extremity arterial occlusion requiring surgical intervention by vascular surgery Dr. García #7 diabetes mellitus type 2 on insulin drip secondary to steroids #8 severe protein calorie malnutrition: Start protein supplement poor nutritional status was decreased albumin 2.6 will have a nutrition consult #9 iron deficiency anemia : With history of GI bleed and unable to proceed with colonoscopy due to multiple complications had EGD at [facility] a few months ago that was unremarkable. Check iron studies. Check stool for occult blood. Hemoglobin has dropped to 7.6. #10 acute exacerbation of chronic obstructive pulmonary disease continue steroids and bronchodilators #11 acute kidney injury: Creatinine is up to 1.64. Lasix held yesterday evening. Continue to monitor I had a prolonged discussion with the patient's and her family about anticoagulation. We discussed risks and benefits. We also discussed her ongoing and recurrent GI bleed and her requiring blood transfusion almost every 2-3 weeks. We discussed that sometimes the risks outweigh the benefits in terms of anticoagulation. I advised her to discontinue Coumadin and continue with antiplatelet such as aspirin or possibly Plavix given her underlying A. 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 Patient would like to discuss with her family further. We will continue Coumadin for now. Patient and her daughter verbalized understanding.
--- NOTE | 2016-07-19 15:10 | P.PN ---
Subjective This is a 76-year-old female patient is being evaluated and examined today on the fourth floor. This patient is well-known to our services. This patient was recently hospitalized multiple times over the last few months with pneumonia , significant bronchiectasis, COPD exacerbation, GI bleed, CHF exacerbation and left leg ischemia status post thrombectomy. Patient was recently admitted to [facility] after discharge from hospital. Patient was currently on 3 L of oxygen at the [facility]. The patient was transferred here from the [facility] with increasing weakness, increasing shortness of breath, productive cough and decreased oral intake. The patient has had this going on for about 10 days. The patient was admitted with sepsis, urinary tract infection and pneumonia. Chest x-ray was reviewed. Upon examination the patient's resting up in bed on 4 L of supplemental oxygen via nasal cannula. She continues to sound congested and has a cough that is productive with white sputum. She has been using her incentive spirometer and flutter valve frequently throughout the day. Objective - Vital Signs Vital signs: Vital Signs Temp 96.9 F L 07/19/16 07:00 Pulse 84 07/19/16 11:39 Resp 18 07/19/16 07:00 BP 154/78 07/19/16 07:00 Pulse Ox 97 07/19/16 07:50 Intake & Output 07/18/16 07/19/16 07/19/16 18:59 06:59 18:59 Intake Total 70.683 901.934 46.133 Output Total 1000 Balance 70.683 -98.066 46.133 Weight 117.934 kg Intake: Intake, IV Titration 70.683 51.934 46.133 Amount Insulin Regular 100 unit 70.683 51.934 46.133 In Sodium Chloride 0.9% 100 ml @ Titrate IV .Q0M [facility] Rx#:[id number] Oral 850 Output: Urine 1000 Other: Voiding Method Bedpan Bedpan Bedpan # Voids 3 1 1 # Bowel Movements 1 1 - Exam GENERAL EXAM: Alert, active, comfortable in no apparent distress. HEAD: Normocephalic. EYES: Normal reaction of pupils, equal size. NOSE: Clear with pink turbinates. THROAT: No erythema or exudates. NECK: No masses, no JVD. CHEST: No chest wall deformity. LUNGS: Lung sounds noted to be bilaterally coarse and congested, scattered rhonchi and crackles. Basis diminished. CVS: S1 and S2 normal with no audible mumurs, regular rhythm. ABDOMEN: No hepatosplenomegaly, normal bowel sounds, no guarding or rigidity. EXTREMITIES: +1-2 edema noted, pedal pulses palpable. SKIN: No rashes CENTRAL NERVOUS SYSTEM: No focal deficits, tone is normal in all 4 extremities. - Labs CBC & Chem 7: 07/19/16 06:30 07/19/16 06:30 Labs: Abnormal Lab Results - Last 24 Hours (Table) 07/18/16 07/18/16 07/18/16 Range/Units 15:59 18:01 20:11 WBC (3.8-10.6) k/uL RBC (3.80-5.40) m/uL Hgb (11.4-16.0) gm/dL Hct (34.0-46.0) % MCHC (31.0-37.0) g/dL RDW (11.5-15.5) % Neutrophils # (1.3-7.7) k/uL PT (9.0-12.0) sec BUN (7-17) mg/dL Creatinine (0.52-1.04) mg/dL Glucose (74-99) mg/dL POC Glucose (mg/dL) 209 H 173 H 166 H (75-99) mg/dL Calcium (8.4-10.2) mg/dL 07/18/16 07/18/16 07/19/16 Range/Units 22:17 23:58 02:05 WBC (3.8-10.6) k/uL RBC (3.80-5.40) m/uL Hgb (11.4-16.0) gm/dL Hct (34.0-46.0) % MCHC (31.0-37.0) g/dL RDW (11.5-15.5) % Neutrophils # (1.3-7.7) k/uL PT (9.0-12.0) sec BUN (7-17) mg/dL Creatinine (0.52-1.04) mg/dL Glucose (74-99) mg/dL POC Glucose (mg/dL) 181 H 177 H 152 H (75-99) mg/dL Calcium (8.4-10.2) mg/dL 07/19/16 07/19/16 07/19/16 Range/Units 04:09 06:07 06:30 WBC 19.8 H (3.8-10.6) k/uL RBC 2.77 L (3.80-5.40) m/uL Hgb 7.9 L (11.4-16.0) gm/dL Hct 25.9 L (34.0-46.0) % MCHC 30.6 L (31.0-37.0) g/dL RDW 18.7 H (11.5-15.5) % Neutrophils # 17.5 H (1.3-7.7) k/uL PT (9.0-12.0) sec BUN (7-17) mg/dL Creatinine (0.52-1.04) mg/dL Glucose (74-99) mg/dL POC Glucose (mg/dL) 186 H 169 H (75-99) mg/dL Calcium (8.4-10.2) mg/dL 07/19/16 07/19/16 07/19/16 Range/Units 06:30 06:30 08:01 WBC (3.8-10.6) k/uL RBC (3.80-5.40) m/uL Hgb (11.4-16.0) gm/dL Hct (34.0-46.0) % MCHC (31.0-37.0) g/dL RDW (11.5-15.5) % Neutrophils # (1.3-7.7) k/uL PT 20.3 H (9.0-12.0) sec BUN 72 H (7-17) mg/dL Creatinine 1.28 H (0.52-1.04) mg/dL Glucose 152 H (74-99) mg/dL POC Glucose (mg/dL) 178 H (75-99) mg/dL Calcium 7.7 L (8.4-10.2) mg/dL 07/19/16 07/19/16 07/19/16 Range/Units 09:50 11:58 14:04 WBC (3.8-10.6) k/uL RBC (3.80-5.40) m/uL Hgb (11.4-16.0) gm/dL Hct (34.0-46.0) % MCHC (31.0-37.0) g/dL RDW (11.5-15.5) % Neutrophils # (1.3-7.7) k/uL PT (9.0-12.0) sec BUN (7-17) mg/dL Creatinine (0.52-1.04) mg/dL Glucose (74-99) mg/dL POC Glucose (mg/dL) 212 H 230 H 211 H (75-99) mg/dL Calcium (8.4-10.2) mg/dL Microbiology - Last 24 Hours (Table) 07/16/16 09:30 Fungal Culture - Preliminary Bronchial Washings - Left Gabriela albicans 07/17/16 11:50 Gram Stain - Preliminary Sputum Sputum Culture - Preliminary Presumptive Staph aureus Gabriela albicans 07/16/16 09:30 Gram Stain - Final Bronchial Washings - Left Bronchial Washings Culture - Final Methicillin resist S. aureus Gabriela albicans Assessment and Plan Plan: Assessment Pneumonia with sepsis Acute exacerbation of chronic obstructive pulmonary disease Acute on chronic hypoxic respiratory failure Acute on chronic systolic congestive heart failure Chronic atrial fibrillation Diabetes mellitus insulin-dependent Left groin Wound/infection Plan Medications have been reviewed and will be continued as ordered. Continue with pulmonary hygiene, coughing and deep breathing exercises, and supportive care. Supplemental oxygen to maintain oxygen saturations of 92% or better. Continue with IV antibiotics and IV steroids. Continue to wean down steroids. Continue nebulizer treatments. GI and DVT prophylaxis. We will obtain a sputum culture. Infectious disease also on consult. We will continue to monitor labs/results and adjust treatment as necessary. Further recommendations pending. I performed an examination of the patient and discussed their management with the nurse practitioner. I have reviewed the nurse practitioner's note and agree with the documented findings and plan of care.
[2016-07-19 16:01] LABS: Glucose,Whole Blood 154 mg/dL (75-99)
[2016-07-19] MEDS: WARFARIN 5 MG TAB PO SCH (17:24)
[2016-07-19] MEDS: LEVOFLOXACIN 750MG-D5W PMX 750 MG in DEXTROSE/WATER 1 150ML.BAG IVPB SCH (17:24)
[2016-07-19 18:03] LABS: Glucose,Whole Blood 167 mg/dL (75-99)
[2016-07-19] MEDS: HYDROcodone/APAP 10-325MG 1 EACH TAB PO PRN (18:58)
[2016-07-19 20:07] LABS: Glucose,Whole Blood 191 mg/dL (75-99)
[2016-07-19] MEDS: PRAVASTATIN SODIUM 20 MG TAB PO SCH (20:10)
[2016-07-19] MEDS: MONTELUKAST 10 MG TAB PO SCH (20:10)
[2016-07-19] MEDS: LOSARTAN 50 MG TAB PO SCH (20:10)
[2016-07-19] MEDS: POLYETHYLENE GLYCOL 3350 17 GM POWD.PACK PO SCH (20:12)
[2016-07-19] MEDS: INSULIN REGULAR 100 UNIT in SODIUM CHLORIDE 0.9% 100 ML IV SCH ×2 (20:22→20:26)
[2016-07-19 22:08] LABS: Glucose,Whole Blood 182 mg/dL (75-99)
[2016-07-20 00:07] LABS: Glucose,Whole Blood 178 mg/dL (75-99)
[2016-07-20 02:17] LABS: Glucose,Whole Blood 180 mg/dL (75-99)
[2016-07-20 04:23] LABS: Glucose,Whole Blood 174 mg/dL (75-99)
[2016-07-20 06:01] LABS: Glucose,Whole Blood 188 mg/dL (75-99)
[2016-07-20 07:23] LABS: Calcium 7.9 mg/dL (8.4-10.2); Potassium 4.5 mmol/L (3.5-5.1)
[2016-07-20] MEDS: INSULIN LISPRO (humaLOG) 300 UNIT/3 ML VIAL SQ SCH ×3 (07:27→17:34)
[2016-07-20 07:35] LABS: Mis test requested (Non-blood) Pneumocytis DFA
[2016-07-20 08:05] LABS: Glucose,Whole Blood 162 mg/dL (75-99)
[2016-07-20] MEDS: methylPREDNISolone SOD SUCCI 40 MG/ML 1 ML VIAL IV SCH ×2 (08:22→21:07)
[2016-07-20] MEDS: DOCUSATE 100 MG CAP PO SCH ×2 (08:22→21:07)
[2016-07-20] MEDS: METOPROLOL SUCCINATE (ER) 100 MG TAB.ER.24H PO SCH ×2 (08:22→21:06)
[2016-07-20] MEDS: ALPRAZolam 0.25 MG TAB PO SCH ×2 (08:22→21:11)
[2016-07-20] MEDS: FERROUS SULFATE 325 MG TAB PO SCH ×2 (08:22→21:06)
[2016-07-20] MEDS: DIGOXIN 125 MCG TAB PO SCH (08:22)
[2016-07-20] MEDS: PANTOPRAZOLE 40 MG TABLET PO SCH (08:22)
[2016-07-20] MEDS: guaiFENesin 600 MG TABLET.ER PO SCH ×2 (08:22→21:06)
[2016-07-20] MEDS: FUROSEMIDE 40 MG TAB PO SCH ×2 (08:22→17:34)
[2016-07-20] MEDS: IPRATROPIUM-ALBUTEROL 3 ML NEB INHALATION SCH ×4 (08:49→20:24)
[2016-07-20] MEDS: BUDESONIDE 1 MG/2 ML NEBU INHALATION SCH ×2 (08:49→20:24)
[2016-07-20 09:52] LABS: Glucose,Whole Blood 161 mg/dL (75-99)
[2016-07-20] MEDS: HYDROcodone/APAP 10-325MG 1 EACH TAB PO PRN ×2 (11:47→21:19)
[2016-07-20 12:01] LABS: Glucose,Whole Blood 149 mg/dL (75-99)
[2016-07-20 14:12] LABS: Glucose,Whole Blood 198 mg/dL (75-99)
[2016-07-20 16:08] LABS: Glucose,Whole Blood 197 mg/dL (75-99)
--- NOTE | 2016-07-20 16:31 | PN ---
DATE OF SERVICE: 07/20/2016 Maria De Jesus Bui is a 76-year-old female who is seen, evaluated, examined. She is still having intermittent shortness of breath and cough, but severity is slightly better. Patient has been using a CPAP machine. There are still issues associated with intermittent GI bleed. Patient remains on anticoagulation related to chronic atrial fibrillation. Her last set of vitals includes blood pressure 147/70, respiratory rate 16, pulse 77, temperature 98, saturation 95% on 4 L oxygen. HEENT: Atraumatic, normocephalic. Pharynx is clear. Narrow pharyngeal opening is present. NECK: Supple without lymphadenopathy, jugular venous distention or carotid bruit. LUNGS: Bilateral good air entry. Decreased ( ) bases. HEART: Regular rate, rhythm. S1, S2 audible. ABDOMEN: Soft. NEUROLOGICAL EXAMINATION: Otherwise awake and alert. Labs reviewed. Medications reviewed. Currently patient is on: 1. Tylenol with codeine 4 times a day. 2. DuoNeb 4 times a day. 3. Xanax as needed. 4. Pulmicort 2 times a day. 5. Lanoxin 125 mcg daily. 6. Ferrous sulfate. 7. Lasix. 8. Mucinex. 9. Humalog sliding scale. 10. Levaquin. 11. Cozaar. 12. Milk of magnesia. 13. Solu-Medrol. 14. Vancomycin. 15. Singulair. 16. Protonix. 17. Coumadin 5 mg daily. Laboratory data reviewed. The last set includes white cell count 19,800, hemoglobin 7.9, hematocrit 25. Platelet count of 247,000. Sodium 140, potassium 4.5. BUN and creatinine are 66 and 1.25, which are slowly coming down. Further results and reports of cultures are reviewed. PCP is negative. Legionella is negative as well. Sputum is positive for MRSA; so is the bronchial washing. AFBs are negative. IMPRESSION: 1. Methicillin-resistant Staphylococcus aureus pneumonia 2. Polymicrobial urinary tract infection ( ) enterococcus and pseudomonas. 3. Obesity hypoventilation and sleep apnea. 4. Morbid obesity. 5. Peripheral arterial disease. 6. Chronic intermittent atrial fibrillation with history of intermittent gastrointestinal bleed and severe anemia. Will monitor and observe clinical course closely. Continue supportive care. Would recommend checking PT and INR as well, and adjust the Coumadin accordingly. Keep INR around 2. Will follow.
--- NOTE | 2016-07-20 17:16 | P.PN ---
Objective - Vital Signs Vital signs: Vital Signs Temp 97.1 F L 07/20/16 15:00 Pulse 84 07/20/16 15:41 Resp 18 07/20/16 15:00 BP 131/50 07/20/16 15:00 Pulse Ox 97 07/20/16 15:00 Intake & Output 07/19/16 07/20/16 07/20/16 18:59 06:59 18:59 Intake Total 63.633 557.350 640.332 Balance 63.633 557.350 640.332 Weight 108.5 kg Intake: Intake, IV Titration 63.633 57.350 40.332 Amount Insulin Regular 100 unit 63.633 57.350 40.332 In Sodium Chloride 0.9% 100 ml @ Titrate IV .Q0M [facility] Rx#:[id number] Oral 500 600 Other: Voiding Method Bedpan Bedpan # Voids 2 2 4 # Bowel Movements 1 - Labs CBC & Chem 7: 07/19/16 06:30 07/20/16 07:00 Labs: Abnormal Lab Results - Last 24 Hours (Table) 07/19/16 07/19/16 07/19/16 Range/Units 18:01 20:03 21:58 Chloride (98-107) mmol/L BUN (7-17) mg/dL Creatinine (0.52-1.04) mg/dL Glucose (74-99) mg/dL POC Glucose (mg/dL) 167 H 191 H 182 H (75-99) mg/dL Calcium (8.4-10.2) mg/dL 07/19/16 07/20/16 07/20/16 Range/Units 23:55 02:08 04:14 Chloride (98-107) mmol/L BUN (7-17) mg/dL Creatinine (0.52-1.04) mg/dL Glucose (74-99) mg/dL POC Glucose (mg/dL) 178 H 180 H 174 H (75-99) mg/dL Calcium (8.4-10.2) mg/dL 07/20/16 07/20/16 07/20/16 Range/Units 05:56 07:00 08:03 Chloride 109 H (98-107) mmol/L BUN 66 H (7-17) mg/dL Creatinine 1.25 H (0.52-1.04) mg/dL Glucose 154 H (74-99) mg/dL POC Glucose (mg/dL) 188 H 162 H (75-99) mg/dL Calcium 7.9 L (8.4-10.2) mg/dL 07/20/16 07/20/16 07/20/16 Range/Units 09:49 11:57 14:03 Chloride (98-107) mmol/L BUN (7-17) mg/dL Creatinine (0.52-1.04) mg/dL Glucose (74-99) mg/dL POC Glucose (mg/dL) 161 H 149 H 198 H (75-99) mg/dL Calcium (8.4-10.2) mg/dL 07/20/16 Range/Units 16:05 Chloride (98-107) mmol/L BUN (7-17) mg/dL Creatinine (0.52-1.04) mg/dL Glucose (74-99) mg/dL POC Glucose (mg/dL) 197 H (75-99) mg/dL Calcium (8.4-10.2) mg/dL Microbiology - Last 24 Hours (Table) 07/17/16 11:50 Gram Stain - Final Sputum Sputum Culture - Final Methicillin resist S. aureus Gabriela albicans Assessment and Plan Plan: #1 bacterial pneumonia with sepsis present on admission: Patient underwent bronchoscopy today. Continue with current IV antibiotics Followed by pulmonary service and infectious disease. Await bronchial culture results #2 acute systolic congestive heart failure exacerbation: Elevated BNP level on admission. Patient receiving oral Lasix. #3 urinary tract infection : Urine culture Enterobacter cloacae and pseudomonas aeruginosa. Continue current antibiotics. #4 left groin surgical wound infection with known history of seroma. Evaluated by Dr. García. Continue current wound care #5 chronic atrial fibrillation : We will resume Lovenox 100 mg subcu every 12 hours until INR is therapeutic. Give Coumadin 5 mg tonight. Repeat PT/INR in a.m. #6 recent left lower extremity arterial occlusion requiring surgical intervention by vascular surgery Dr. García #7 diabetes mellitus type 2 on insulin drip secondary to steroids #8 severe protein calorie malnutrition: Start protein supplement poor nutritional status was decreased albumin 2.6 will have a nutrition consult #9 iron deficiency anemia : With history of GI bleed and unable to proceed with colonoscopy due to multiple complications had EGD at [facility] a few months ago that was unremarkable. Check iron studies. Check stool for occult blood. Hemoglobin has dropped to 7.6. #10 acute exacerbation of chronic obstructive pulmonary disease continue steroids and bronchodilators #11 acute kidney injury: Creatinine is up to 1.64. Lasix held yesterday evening. Continue to monitor #12 bacteremia with one blood culture positive coagulase negative staph. At this time patient is followed by Dr. Wild for IV antibiotic management Patient was also started on IV Solu-Medrol for COPD exacerbation, patient is well known to Dr. Pittman Will consult him for follow-up Will recheck labs in a.m. Will follow closely Prognosis is guarded due to multiple medical problems
[2016-07-20 18:04] LABS: INR 4.2 (<1.1); Prothrombin Time 41.6 sec (9.0-12.0)
[2016-07-20 18:15] LABS: Glucose,Whole Blood 147 mg/dL (75-99)
[2016-07-20] MEDS: WARFARIN 5 MG TAB PO SCH (18:18)
[2016-07-20] MEDS: INSULIN REGULAR 100 UNIT in SODIUM CHLORIDE 0.9% 100 ML IV SCH (19:44)
[2016-07-20] MEDS ORDERED: VANCOMYCIN TROUGH DUE 1 EACH MISC MISCELLANE ONE (20:00)
[2016-07-20 20:14] LABS: Glucose,Whole Blood 125 mg/dL (75-99)
[2016-07-20 21:02] LABS: Glucose,Whole Blood 123 mg/dL (75-99)
[2016-07-20] MEDS: PRAVASTATIN SODIUM 20 MG TAB PO SCH (21:06)
[2016-07-20] MEDS: MONTELUKAST 10 MG TAB PO SCH (21:06)
[2016-07-20] MEDS: POLYETHYLENE GLYCOL 3350 17 GM POWD.PACK PO SCH (21:06)
[2016-07-20] MEDS: LOSARTAN 50 MG TAB PO SCH (21:07)
[2016-07-20] MEDS: VANCOMYCIN 2,250 MG in SODIUM CHLORIDE 0.9% 500 ML IVPB SCH (21:11)
[2016-07-20 22:15] LABS: Glucose,Whole Blood 135 mg/dL (75-99)
--- NOTE | 2016-07-20 23:44 | P.PN ---
Subjective Principal diagnosis: Shortness of breath 76-year-old female who has a history of extensive hospitalizations earlier this year. She is evidence of the extensive lung disease. 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 She has sleep apnea. Her most recent stay she had evidence of extensive illness including the large clot from the left leg that required endarterectomy with patch angioplasty. She has significant difficulties at that site. She had pneumonia and infection at the left leg site. See the long course of antibiotic therapy. During that last day she have a short hiatus to her 's . Now presenting with increasing shortness of breath as well as concerns to sepsis and urinary tract infection. Patient has extensive congestion to her chest, pulmonary has seen bronchoscopies been performed showing evidence of MRSA. Seems to responding modestly well to current antibiotic therapy with vancomycin and Levaquin. Patient still quite short of breath but improved from admission. Denies high- grade fevers, chills or rigors. Objective - Vital Signs Vital signs: Vital Signs Temp 97.1 F L 07/20/16 15:00 Pulse 74 07/20/16 20:49 Resp 18 07/20/16 15:00 BP 131/50 07/20/16 15:00 Pulse Ox 97 07/20/16 15:00 Intake & Output 07/20/16 07/20/16 07/21/16 06:59 18:59 06:59 Intake Total 557.350 653.050 1.35 Balance 557.350 653.050 1.35 Weight 108.5 kg Intake: Intake, IV Titration 57.350 53.050 1.35 Amount Insulin Regular 100 unit 57.350 53.050 1.35 In Sodium Chloride 0.9% 100 ml @ Titrate IV .Q0M [facility] Rx#:[id number] Oral 500 600 Other: Voiding Method Bedpan # Voids 2 1 - Exam 76-year-old woman who relates she is feeling less short of breath but appears to still be short of breath HEENT: Anicteric conjunctiva are pink and moist nasal mucosa grossly intact without significant lesions, there is no thrush. Worn dentition Neck: The neck is supple without significant lymphadenopathy or thyromegaly. Lungs: Symmetrical air entry is noted. Wheezes throughout the left lung is noted Bibasilar crackles are heard right greater than left no dullness is noted minimal egophony to the right base is noted Heart: Regular rate and rhythm with an audible S1-S2, no S3 soft S4, There is no significant murmur click or rub, PMI was nondisplaced. Abdomen: Obese, Positive bowel sounds soft and nontender without palpable masses or organomegaly. There was no guarding or rebound. Extremities: The upper and lower extremity is have some generalized edema. However no open ulcerations are seen. The entry site for the thrombectomy is without bleeding drainage or evidence of infection or tenderness Neuro: Awake alert oriented to person place and time. There are no acute new gross focal sensory motor deficits. She has significant generalized weakness though - Labs CBC & Chem 7: 07/19/16 06:30 07/20/16 07:00 Labs: Abnormal Lab Results - Last 24 Hours (Table) 07/19/16 07/20/16 07/20/16 Range/Units 23:55 02:08 04:14 PT (9.0-12.0) sec Chloride (98-107) mmol/L BUN (7-17) mg/dL Creatinine (0.52-1.04) mg/dL Glucose (74-99) mg/dL POC Glucose (mg/dL) 178 H 180 H 174 H (75-99) mg/dL Calcium (8.4-10.2) mg/dL 07/20/16 07/20/16 07/20/16 Range/Units 05:56 07:00 08:03 PT (9.0-12.0) sec Chloride 109 H (98-107) mmol/L BUN 66 H (7-17) mg/dL Creatinine 1.25 H (0.52-1.04) mg/dL Glucose 154 H (74-99) mg/dL POC Glucose (mg/dL) 188 H 162 H (75-99) mg/dL Calcium 7.9 L (8.4-10.2) mg/dL 07/20/16 07/20/16 07/20/16 Range/Units 09:49 11:57 14:03 PT (9.0-12.0) sec Chloride (98-107) mmol/L BUN (7-17) mg/dL Creatinine (0.52-1.04) mg/dL Glucose (74-99) mg/dL POC Glucose (mg/dL) 161 H 149 H 198 H (75-99) mg/dL Calcium (8.4-10.2) mg/dL 07/20/16 07/20/16 07/20/16 Range/Units 16:05 17:51 18:00 PT 41.6 H (9.0-12.0) sec Chloride (98-107) mmol/L BUN (7-17) mg/dL Creatinine (0.52-1.04) mg/dL Glucose (74-99) mg/dL POC Glucose (mg/dL) 197 H 147 H (75-99) mg/dL Calcium (8.4-10.2) mg/dL 07/20/16 07/20/16 07/20/16 Range/Units 20:04 20:55 22:05 PT (9.0-12.0) sec Chloride (98-107) mmol/L BUN (7-17) mg/dL Creatinine (0.52-1.04) mg/dL Glucose (74-99) mg/dL POC Glucose (mg/dL) 125 H 123 H 135 H (75-99) mg/dL Calcium (8.4-10.2) mg/dL Microbiology - Last 24 Hours (Table) 07/17/16 11:50 Gram Stain - Final Sputum Sputum Culture - Final Methicillin resist S. aureus Gabriela albicans Laboratory Results WBC 19.8 k/uL (3.8-10.6) H 07/19/16 06:30 RBC 2.77 m/uL (3.80-5.40) L 07/19/16 06:30 Hgb 7.9 gm/dL (11.4-16.0) L 07/19/16 06:30 Hct 25.9 % (34.0-46.0) L 07/19/16 06:30 MCV 93.5 fL (80.0-100.0) 07/19/16 06:30 MCH 28.6 pg (25.0-35.0) 07/19/16 06:30 MCHC 30.6 g/dL (31.0-37.0) L 07/19/16 06:30 RDW 18.7 % (11.5-15.5) H 07/19/16 06:30 Plt Count 247 k/uL (150-450) 07/19/16 06:30 Neutrophils % 88 % 07/19/16 06:30 Lymphocytes % 6 % 07/19/16 06:30 Monocytes % 4 % 07/19/16 06:30 Eosinophils % 1 % 07/19/16 06:30 Basophils % 0 % 07/19/16 06:30 Neutrophils # 17.5 k/uL (1.3-7.7) H 07/19/16 06:30 Lymphocytes # 1.2 k/uL (1.0-4.8) 07/19/16 06:30 Monocytes # 0.8 k/uL (0-1.0) 07/19/16 06:30 Eosinophils # 0.1 k/uL (0-0.7) 07/19/16 06:30 Basophils # 0.1 k/uL (0-0.2) 07/19/16 06:30 Hypochromasia Marked 07/19/16 06:30 Poikilocytosis Slight 07/18/16 07:30 Anisocytosis Slight 07/19/16 06:30 Macrocytosis Slight 07/18/16 07:30 PT 41.6 sec (9.0-12.0) H 07/20/16 17:51 INR 4.2 (<1.1) 07/20/16 17:51 APTT 23.0 sec (22.0-30.0) 07/13/16 15:10 Sodium 140 mmol/L (137-145) 07/20/16 07:00 Potassium 4.5 mmol/L (3.5-5.1) 07/20/16 07:00 Chloride 109 mmol/L (98-107) H 07/20/16 07:00 Carbon Dioxide 24 mmol/L (22-30) 07/20/16 07:00 Anion Gap 7 mmol/L 07/20/16 07:00 BUN 66 mg/dL (7-17) H 07/20/16 07:00 Creatinine 1.25 mg/dL (0.52-1.04) H 07/20/16 07:00 Est GFR (MDRD) Af Amer 50 (>60 ml/min/1.73 sqM) 07/20/16 07:00 Est GFR (MDRD) Non-Af 41 (>60 ml/min/1.73 sqM) 07/20/16 07:00 Glucose 154 mg/dL (74-99) H 07/20/16 07:00 POC Glucose (mg/dL) 135 mg/dL (75-99) H 07/20/16 22:05 POC Glu Extrusion Operator ID Angy Arnold 07/20/16 22:[address] Glu mg/dL 154 mg/dL 07/13/16 15:10 Hemoglobin A1c 7.0 % (4.2-6.1) H 07/13/16 15:10 Plasma Lactic Acid Good 1.3 mmol/L (0.7-2.0) 07/13/16 15:10 Calcium 7.9 mg/dL (8.4-10.2) L 07/20/16 07:00 Magnesium 1.9 mg/dL (1.6-2.3) 07/16/16 07:44 Iron 97 ug/dL (37-170) 07/16/16 07:44 TIBC 240 ug/dL (265-497) L 07/16/16 07:44 % Saturation 40.4 % (20-50) 07/16/16 07:44 Ferritin 108 ng/mL (11-264) 07/16/16 07:44 Total Bilirubin 0.4 mg/dL (0.2-1.3) 07/18/16 07:10 AST 46 U/L (14-36) H 07/18/16 07:10 ALT 42 U/L (9-52) 07/18/16 07:10 Alkaline Phosphatase 37 U/L (38-126) L 07/18/16 07:10 NT-Pro-B Natriuret Pep 61858 pg/mL 07/13/16 15:10 Total Protein 4.9 g/dL (6.3-8.2) L 07/18/16 07:10 Albumin 2.3 g/dL (3.5-5.0) L 07/18/16 07:10 Urine Color Yellow 07/13/16 15:10 Urine Appearance Turbid (Clear) H 07/13/16 15:10 Urine pH 5.5 (5.0-8.0) 07/13/16 15:10 Ur Specific [place] 1.014 (1.001-1.035) 07/13/16 15:10 Urine Protein 2+ (Negative) H 07/13/16 15:10 Urine Glucose (UA) Negative (Negative) 07/13/16 15:10 Urine Ketones Negative (Negative) 07/13/16 15:10 Urine Blood Large (Negative) H 07/13/16 15:10 Urine Nitrite Negative (Negative) 07/13/16 15:10 Urine Bilirubin Negative (Negative) 07/13/16 15:10 Urine Urobilinogen <2.0 mg/dL (<2.0) 07/13/16 15:10 Ur Leukocyte Esterase Large (Negative) H 07/13/16 15:10 Urine RBC 80 /hpf (0-5) H 07/13/16 15:10 Urine WBC >182 /hpf (0-5) H 07/13/16 15:10 Urine WBC Clumps Few /hpf (None) H 07/13/16 15:10 Ur Squamous Epith Cells 4 /hpf (0-4) 07/13/16 15:10 Urine Bacteria Many /hpf (None) H 07/13/16 15:10 Urine Yeast (Budding) Many /hpf (None) H 07/13/16 15:10 Stool Occult Blood Negative (Negative) 07/16/16 19:00 Vancomycin Trough 22.6 ug/mL 07/20/16 19:21 Virus Source See Below 07/16/16 09:30 Viral Test See Below 07/16/16 09:30 Virus Analysis Interp See Below 07/16/16 09:30 Miscellaneous Test Pneumocytis DFA 07/16/16 09:30 Misc Test Result See comment 07/16/16 09:30 Blood Type A Positive 07/16/16 15:20 Blood Type Recheck No 07/16/16 15:20 Antibody Screen NEGATIVE 07/16/16 15:20 Crossmatch See Detail 07/16/16 15:20 Spec Expiration Date 07/19/2016231907/16/16 15:20 Microbiology 07/17/16 11:50 Sputum Gram Stain - Final 07/17/16 11:50 Sputum Sputum Culture - Final Methicillin resist S. aureus Gabriela albicans 07/16/16 09:30 Bronchial Washings - Left Fungal Culture - Preliminary Gabriela albicans 07/16/16 09:30 Bronchial Washings - Left Gram Stain - Final 07/16/16 09:30 Bronchial Washings - Left Bronchial Washings Culture - Final Methicillin resist S. aureus Gabriela albicans 07/16/16 09:30 Bronchial Washings - Left Acid Fast Bacilli Smear - Final 07/16/16 09:30 Bronchial Washings - Left Acid Fast Bacilli Culture - Preliminary 07/13/16 15:10 Blood Blood Culture - Final 07/13/16 15:10 Blood Blood Culture Gram Stain - Final 07/13/16 15:10 Blood Blood Culture - Final Staphylococcus epidermidis 07/13/16 15:10 Urine,Voided Urine Culture - Final Enterobacter cloacae Pseudomonas aeruginosa Assessment and Plan (1) Sepsis Narrative/Plan: 76-year-old woman presents hospital feeling very poorly. Having increasing shortness of breath cough sputum production without hemoptysis. Generalized malaise. Fevers of also occurred. On evidence of extensive leukocytosis. There is evidence of 1 blood culture with coag was negative staph. Other blood cultures are negative. Urine culture is positive with evidence of Enterobacter and Pseudomonas fortunately both susceptible to Levaquin. Prior cultures did show evidence of the bronchoscopy with MRSA. Again seen with the most recent bronchoscopy. Consequently antibiotic therapy with vancomycin and levofloxacin will be utilized. She is anticoagulant with Coumadin and this must be watched closely because of utilization of Levaquin. Cultures in process now. Bronchoscopy bronchoscopy has shown evidence of ongoing MRSA. Continue supportive care with oxygen, respiratory treatments and CPAP as needed.. Status: Acute (2) Pneumonia Status: Acute (3) Leukocytosis Status: Acute (4) Peripheral arterial occlusive disease Status: Chronic (5) Diabetes mellitus type 2, uncontrolled, with complications Status: Acute
[2016-07-21 00:12] LABS: Glucose,Whole Blood 207 mg/dL (75-99)
[2016-07-21 02:09] LABS: Glucose,Whole Blood 228 mg/dL (75-99)
[2016-07-21 04:12] LABS: Glucose,Whole Blood 231 mg/dL (75-99)
[2016-07-21 06:11] LABS: Glucose,Whole Blood 202 mg/dL (75-99)
[2016-07-21] MEDS: BUDESONIDE 1 MG/2 ML NEBU INHALATION SCH ×2 (07:36→20:04)
[2016-07-21] MEDS: IPRATROPIUM-ALBUTEROL 3 ML NEB INHALATION SCH ×4 (07:36→20:04)
[2016-07-21 07:57] LABS: Glucose,Whole Blood 183 mg/dL (75-99)
[2016-07-21] MEDS: INSULIN LISPRO (humaLOG) 300 UNIT/3 ML VIAL SQ SCH ×3 (08:21→17:40)
[2016-07-21] MEDS: ALPRAZolam 0.25 MG TAB PO SCH ×2 (08:21→20:14)
[2016-07-21 09:13] LABS: INR 4.2 (<1.1); Prothrombin Time 41.3 sec (9.0-12.0)
[2016-07-21] MEDS: methylPREDNISolone SOD SUCCI 40 MG/ML 1 ML VIAL IV SCH ×2 (09:14→20:13)
[2016-07-21] MEDS: METOPROLOL SUCCINATE (ER) 100 MG TAB.ER.24H PO SCH ×2 (09:15→20:13)
[2016-07-21] MEDS: DOCUSATE 100 MG CAP PO SCH ×2 (09:15→20:13)
[2016-07-21] MEDS: DIGOXIN 125 MCG TAB PO SCH (09:15)
[2016-07-21] MEDS: FUROSEMIDE 40 MG TAB PO SCH ×2 (09:15→15:39)
[2016-07-21] MEDS: PANTOPRAZOLE 40 MG TABLET PO SCH (09:15)
[2016-07-21] MEDS: guaiFENesin 600 MG TABLET.ER PO SCH ×2 (09:15→20:14)
[2016-07-21] MEDS: FERROUS SULFATE 325 MG TAB PO SCH ×2 (09:16→20:13)
[2016-07-21 09:18] LABS: ALT 57 U/L (9-52); AST 31 U/L (14-36); Alkaline Phosphatase 43 U/L (38-126); Anion Gap 9 mmol/L; Blood Urea Nitrogen 66 mg/dL (7-17); Calcium 8.2 mg/dL (8.4-10.2); Carbon Dioxide 20 mmol/L (22-30); Chloride 111 mmol/L (98-107); Glucose 166 mg/dL (74-99); Non-African American GFR(MDRD) 51 (>60 ml/min/1.73 sqM); Potassium 4.8 mmol/L (3.5-5.1); Sodium 140 mmol/L (137-145); Total Bilirubin 0.3 mg/dL (0.2-1.3); Total Protein 5.3 g/dL (6.3-8.2)
[2016-07-21 09:54] LABS: Glucose,Whole Blood 199 mg/dL (75-99)
[2016-07-21 10:06] LABS: Anisocytosis Slight; Basophils # (A) 0.1 k/uL (0-0.2); Basophils % (A) 0 %; CH 28.9; CHCM 30.3; Eosinophils % (A) 0 %; HCT 26.8 % (34.0-46.0); HDW 3.26; HGB 8.2 gm/dL (11.4-16.0); Hypochromasia Marked; Luc # (Auto) 0.25; Luc % (Auto) 1; Lymphocytes % (A) 4 %; MCH 29.3 pg (25.0-35.0); MCHC 30.6 g/dL (31.0-37.0); MCV 95.8 fL (80.0-100.0); Macrocytosis Slight; Mean Platelet Volume 8.9; Monocytes % (A) 4 %; Neutrophils # (A) 20.9 k/uL (1.3-7.7); Neutrophils % (A) 90 %; RBC 2.79 m/uL (3.80-5.40); RDW 19.2 % (11.5-15.5); WBC 23.3 k/uL (3.8-10.6); WBC (Perox) 22.77
[2016-07-21] MEDS: HYDROcodone/APAP 10-325MG 1 EACH TAB PO PRN ×2 (10:50→20:16)
[2016-07-21 11:59] LABS: Glucose,Whole Blood 145 mg/dL (75-99)
--- NOTE | 2016-07-21 13:54 | P.PN ---
Subjective Principal diagnosis: Pneumonia with sepsis Patient is doing better today she is still complaining of cough and shortness of breath She is complaining of weakness with inability to stand or walk, she was able to sit on the edge of the bed for an hour and a half today Otherwise she denies any complaints at this time Objective - Vital Signs Vital signs: Vital Signs Temp 96.9 F L 07/21/16 07:00 Pulse 78 07/21/16 11:42 Resp 18 07/21/16 08:00 BP 128/58 07/21/16 07:00 Pulse Ox 95 07/21/16 07:39 Intake & Output 07/20/16 07/21/16 07/21/16 18:59 06:59 18:59 Intake Total 653.050 584.750 29.900 Balance 653.050 584.750 29.900 Weight 108 kg Intake: Intake, IV Titration 53.050 34.750 29.900 Amount Insulin Regular 100 unit 53.050 34.750 29.900 In Sodium Chloride 0.9% 100 ml @ Titrate IV .Q0M [facility] Rx#:[id number] Oral 600 550 Other: Voiding Method Bedpan Bedpan # Voids 1 3 - Exam In general patient is alert and oriented 3 in no apparent distress HEENT head normocephalic and atraumatic Neck is supple no JVD no goiter no lymphadenopathy Chest exam reveals bilateral coarse crackles no wheezing Cardiac exam reveals regular heart sounds no gallops no murmurs Abdomen is soft nontender no organomegaly Extremity exam reveals 2+ edema no cyanosis or clubbing - Labs CBC & Chem 7: 07/21/16 08:30 07/21/16 08:30 Labs: Abnormal Lab Results - Last 24 Hours (Table) 07/20/16 07/20/16 07/20/16 Range/Units 14:03 16:05 17:51 WBC (3.8-10.6) k/uL RBC (3.80-5.40) m/uL Hgb (11.4-16.0) gm/dL Hct (34.0-46.0) % MCHC (31.0-37.0) g/dL RDW (11.5-15.5) % Neutrophils # (1.3-7.7) k/uL PT 41.6 H (9.0-12.0) sec Chloride (98-107) mmol/L Carbon Dioxide (22-30) mmol/L BUN (7-17) mg/dL Glucose (74-99) mg/dL POC Glucose (mg/dL) 198 H 197 H (75-99) mg/dL Calcium (8.4-10.2) mg/dL ALT (9-52) U/L Total Protein (6.3-8.2) g/dL Albumin (3.5-5.0) g/dL 07/20/16 07/20/16 07/20/16 Range/Units 18:00 20:04 20:55 WBC (3.8-10.6) k/uL RBC (3.80-5.40) m/uL Hgb (11.4-16.0) gm/dL Hct (34.0-46.0) % MCHC (31.0-37.0) g/dL RDW (11.5-15.5) % Neutrophils # (1.3-7.7) k/uL PT (9.0-12.0) sec Chloride (98-107) mmol/L Carbon Dioxide (22-30) mmol/L BUN (7-17) mg/dL Glucose (74-99) mg/dL POC Glucose (mg/dL) 147 H 125 H 123 H (75-99) mg/dL Calcium (8.4-10.2) mg/dL ALT (9-52) U/L Total Protein (6.3-8.2) g/dL Albumin (3.5-5.0) g/dL 07/20/16 07/21/16 07/21/16 Range/Units 22:05 00:03 02:00 WBC (3.8-10.6) k/uL RBC (3.80-5.40) m/uL Hgb (11.4-16.0) gm/dL Hct (34.0-46.0) % MCHC (31.0-37.0) g/dL RDW (11.5-15.5) % Neutrophils # (1.3-7.7) k/uL PT (9.0-12.0) sec Chloride (98-107) mmol/L Carbon Dioxide (22-30) mmol/L BUN (7-17) mg/dL Glucose (74-99) mg/dL POC Glucose (mg/dL) 135 H 207 H 228 H (75-99) mg/dL Calcium (8.4-10.2) mg/dL ALT (9-52) U/L Total Protein (6.3-8.2) g/dL Albumin (3.5-5.0) g/dL 07/21/16 07/21/16 07/21/16 Range/Units 04:01 06:07 07:55 WBC (3.8-10.6) k/uL RBC (3.80-5.40) m/uL Hgb (11.4-16.0) gm/dL Hct (34.0-46.0) % MCHC (31.0-37.0) g/dL RDW (11.5-15.5) % Neutrophils # (1.3-7.7) k/uL PT (9.0-12.0) sec Chloride (98-107) mmol/L Carbon Dioxide (22-30) mmol/L BUN (7-17) mg/dL Glucose (74-99) mg/dL POC Glucose (mg/dL) 231 H 202 H 183 H (75-99) mg/dL Calcium (8.4-10.2) mg/dL ALT (9-52) U/L Total Protein (6.3-8.2) g/dL Albumin (3.5-5.0) g/dL 07/21/16 07/21/16 07/21/16 Range/Units 08:30 08:30 08:30 WBC 23.3 H (3.8-10.6) k/uL RBC 2.79 L (3.80-5.40) m/uL Hgb 8.2 L (11.4-16.0) gm/dL Hct 26.8 L (34.0-46.0) % MCHC 30.6 L (31.0-37.0) g/dL RDW 19.2 H (11.5-15.5) % Neutrophils # 20.9 H (1.3-7.7) k/uL PT 41.3 H (9.0-12.0) sec Chloride 111 H (98-107) mmol/L Carbon Dioxide 20 L (22-30) mmol/L BUN 66 H (7-17) mg/dL Glucose 166 H (74-99) mg/dL POC Glucose (mg/dL) (75-99) mg/dL Calcium 8.2 L (8.4-10.2) mg/dL ALT 57 H (9-52) U/L Total Protein 5.3 L (6.3-8.2) g/dL Albumin 2.6 L (3.5-5.0) g/dL 07/21/16 07/21/16 Range/Units 09:49 11:57 WBC (3.8-10.6) k/uL RBC (3.80-5.40) m/uL Hgb (11.4-16.0) gm/dL Hct (34.0-46.0) % MCHC (31.0-37.0) g/dL RDW (11.5-15.5) % Neutrophils # (1.3-7.7) k/uL PT (9.0-12.0) sec Chloride (98-107) mmol/L Carbon Dioxide (22-30) mmol/L BUN (7-17) mg/dL Glucose (74-99) mg/dL POC Glucose (mg/dL) 199 H 145 H (75-99) mg/dL Calcium (8.4-10.2) mg/dL ALT (9-52) U/L Total Protein (6.3-8.2) g/dL Albumin (3.5-5.0) g/dL Microbiology - Last 24 Hours (Table) 07/17/16 11:50 Gram Stain - Final Sputum Sputum Culture - Final Methicillin resist S. aureus Gabriela albicans Assessment and Plan Plan: #1 bacterial pneumonia with sepsis present on admission: Patient underwent bronchoscopy today. Continue with current IV antibiotics Followed by pulmonary service and infectious disease. Await bronchial culture results #2 acute systolic congestive heart failure exacerbation: Elevated BNP level on admission. Patient receiving oral Lasix. #3 urinary tract infection : Urine culture Enterobacter cloacae and pseudomonas aeruginosa. Continue current antibiotics. #4 left groin surgical wound infection with known history of seroma. Evaluated by Dr. García. Continue current wound care #5 chronic atrial fibrillation : We will resume Lovenox 100 mg subcu every 12 hours until INR is therapeutic. Give Coumadin 5 mg tonight. Repeat PT/INR in a.m. #6 recent left lower extremity arterial occlusion requiring surgical intervention by vascular surgery Dr. García #7 diabetes mellitus type 2 on insulin drip secondary to steroids #8 severe protein calorie malnutrition: Start protein supplement poor nutritional status was decreased albumin 2.6 will have a nutrition consult #9 iron deficiency anemia : With history of GI bleed and unable to proceed with colonoscopy due to multiple complications had EGD at [facility] a few months ago that was unremarkable. Check iron studies. Check stool for occult blood. Hemoglobin has dropped to 7.6. #10 acute exacerbation of chronic obstructive pulmonary disease continue steroids and bronchodilators #11 acute kidney injury: Creatinine is up to 1.64. Lasix held yesterday evening. Continue to monitor #12 bacteremia with one blood culture positive coagulase negative staph. At this time patient is followed by Dr. Wild for IV antibiotic management Patient was also started on IV Solu-Medrol for COPD exacerbation, patient is well known to Dr. Pittman Will consult him for follow-up Will recheck labs in a.m. Will follow closely Prognosis is guarded due to multiple medical problems
[2016-07-21 14:03] LABS: Glucose,Whole Blood 208 mg/dL (75-99)
[2016-07-21 16:00] LABS: Glucose,Whole Blood 216 mg/dL (75-99)
--- NOTE | 2016-07-21 16:23 | PN ---
DATE OF SERVICE: 07/21/2016 Ms. Maria De Jesus Bui is seen, evaluated, examined. Patient has less shortness of breath but a component is still present. Her hemodynamic status is stable. Blood pressure is now 130/60. Respiratory rate is 20, heart rate 73, saturation 95% on 4 L oxygen. She has been using CPAP machine on a regular basis. HEENT EXAMINATION: Otherwise unremarkable. NECK: Supple without lymphadenopathy, jugular venous distention or carotid bruit. LUNGS: Bilateral good air entry with a few crackles at bases. HEART: Regular rate, rhythm. S1, S2 audible. ABDOMEN: Soft. No rebound or rigidity. EXTREMITIES: Plus one edema. NEUROLOGICAL EXAMINATION: Awake and alert. IMPRESSION: 1. Methicillin-resistant Staphylococcus aureus pneumonia. 2. Congestive heart failure with acute on chronic systolic heart failure. 3. Urinary tract infection. 4. Left groin surgical wound. PLAN: As above. Continue vancomycin. Continue breathing exercises. Supplemental oxygen. Increase activity as tolerated. Patient has been advised to continue incentive spirometry and deep breathing exercises and cough. Will follow. ,
[2016-07-21] MEDS: LEVOFLOXACIN 750 MG TAB PO SCH (17:40)
[2016-07-21 17:48] LABS: Glucose,Whole Blood 160 mg/dL (75-99)
[2016-07-21] MEDS: INSULIN REGULAR 100 UNIT in SODIUM CHLORIDE 0.9% 100 ML IV SCH (18:11)
[2016-07-21 19:54] LABS: Glucose,Whole Blood 207 mg/dL (75-99)
[2016-07-21] MEDS: PRAVASTATIN SODIUM 20 MG TAB PO SCH (20:13)
[2016-07-21] MEDS: POLYETHYLENE GLYCOL 3350 17 GM POWD.PACK PO SCH (20:14)
[2016-07-21] MEDS: LOSARTAN 50 MG TAB PO SCH (20:14)
[2016-07-21] MEDS: MONTELUKAST 10 MG TAB PO SCH (20:14)
[2016-07-21 21:49] LABS: Glucose,Whole Blood 181 mg/dL (75-99)
[2016-07-21 23:59] LABS: Glucose,Whole Blood 185 mg/dL (75-99)
[2016-07-22 01:59] LABS: Glucose,Whole Blood 153 mg/dL (75-99)
[2016-07-22 04:11] LABS: Glucose,Whole Blood 194 mg/dL (75-99)
[2016-07-22 06:01] LABS: Glucose,Whole Blood 208 mg/dL (75-99)
[2016-07-22] MEDS: IPRATROPIUM-ALBUTEROL 3 ML NEB INHALATION SCH ×4 (07:45→19:54)
[2016-07-22] MEDS: BUDESONIDE 1 MG/2 ML NEBU INHALATION SCH ×2 (07:45→19:54)
[2016-07-22 07:56] LABS: Glucose,Whole Blood 204 mg/dL (75-99)
[2016-07-22] MEDS: methylPREDNISolone SOD SUCCI 40 MG/ML 1 ML VIAL IV SCH ×2 (08:12→21:43)
[2016-07-22] MEDS: guaiFENesin 600 MG TABLET.ER PO SCH ×2 (08:13→21:43)
[2016-07-22] MEDS: INSULIN LISPRO (humaLOG) 300 UNIT/3 ML VIAL SQ SCH ×3 (08:13→17:57)
[2016-07-22] MEDS: METOPROLOL SUCCINATE (ER) 100 MG TAB.ER.24H PO SCH ×2 (08:13→21:43)
[2016-07-22] MEDS: DOCUSATE 100 MG CAP PO SCH ×2 (08:13→21:42)
[2016-07-22] MEDS: FUROSEMIDE 40 MG TAB PO SCH ×2 (08:13→15:57)
[2016-07-22] MEDS: FERROUS SULFATE 325 MG TAB PO SCH ×2 (08:13→21:43)
[2016-07-22] MEDS: ALPRAZolam 0.25 MG TAB PO SCH ×2 (08:13→21:43)
[2016-07-22] MEDS: DIGOXIN 125 MCG TAB PO SCH (08:13)
[2016-07-22] MEDS: PANTOPRAZOLE 40 MG TABLET PO SCH (08:13)
[2016-07-22] MEDS: VANCOMYCIN 2,000 MG in SODIUM CHLORIDE 0.9% 500 ML IVPB SCH (08:14)
[2016-07-22] MEDS: HYDROcodone/APAP 10-325MG 1 EACH TAB PO PRN ×2 (08:45→15:57)
[2016-07-22 09:24] LABS: Anisocytosis Slight; Basophils % (A) 0 %; CH 28.8; CHCM 30.3; Eosinophils % (A) 0 %; HCT 25.4 % (34.0-46.0); HDW 3.29; HGB 7.8 gm/dL (11.4-16.0); Hypochromasia Marked; Luc % (Auto) 1; Lymphocytes # (A) 0.7 k/uL (1.0-4.8); Lymphocytes % (A) 4 %; MCH 29.4 pg (25.0-35.0); MCHC 30.9 g/dL (31.0-37.0); MCV 95.2 fL (80.0-100.0); Macrocytosis Slight; Mean Platelet Volume 7.9; Monocytes # (A) 0.5 k/uL (0-1.0); Monocytes % (A) 3 %; Neutrophils # (A) 15.9 k/uL (1.3-7.7); Neutrophils % (A) 92 %; RBC 2.67 m/uL (3.80-5.40); RDW 18.8 % (11.5-15.5); WBC 17.3 k/uL (3.8-10.6); WBC (Perox) 18.37
[2016-07-22 09:29] LABS: Calcium 8.3 mg/dL (8.4-10.2); INR 3.5 (<1.1); Potassium 4.4 mmol/L (3.5-5.1); Prothrombin Time 33.7 sec (9.0-12.0); Total Bilirubin 0.3 mg/dL (0.2-1.3); Total Protein 5.2 g/dL (6.3-8.2)
[2016-07-22 10:29] LABS: Glucose,Whole Blood 150 mg/dL (75-99)
--- NOTE | 2016-07-22 10:46 | P.PN ---
Subjective Patient presented to the hospital with worsening shortness of breath with productive cough and weakness. She is being treated for pneumonia and COPD exacerbation. Patient underwent bronchoscopy during this admission. Bronchial wash showing MRSA with yeast and fungal hyphae. Diflucan will be added. Patient is still reporting leg pain in her left leg. She worked with physical therapy was able to us to some exercises at the bedside. She denies any chest pain or shortness of breath. I she still reporting a cough. Denies any nausea or vomiting. Reports having bowel movements. Denies any difficulty urinating. Denies any blood or black stools. Objective - Vital Signs Vital signs: Vital Signs Temp 97.0 F L 07/22/16 07:00 Pulse 72 07/22/16 07:54 Resp 18 07/22/16 07:00 BP 173/70 07/22/16 07:00 Pulse Ox 97 07/22/16 07:00 Intake & Output 07/21/16 07/22/16 07/22/16 18:59 06:59 18:59 Intake Total 250.791 50.466 9.625 Output Total 4 Balance 246.791 50.466 9.625 Intake: IV 194 Insulin Regular 100 unit 34 In Sodium Chloride 0.9% 100 ml @ Titrate IV .Q0M SHARONDA Rx#:[id number] Normal Saline at 20ml/hr 160 Intake, IV Titration 56.791 50.466 9.625 Amount Insulin Regular 100 unit 56.791 50.466 9.625 In Sodium Chloride 0.9% 100 ml @ Titrate IV .Q0M SHARONDA Rx#:[id number] Output: Urine 4 Other: Voiding Method Bedpan # Voids 5 - Exam Head normocephalic Neck supple Lungs few coarse breath sounds. I Heart regular rate and rhythm S1-S2, no rub or gallop Abdomen is soft nontender nondistended positive bowel sounds no hepatosplenomegaly Extremities no edema. Left groin wound site packing in place there is no redness or drainage noted Neuro alert and orientated to 3 - Labs CBC & Chem 7: 07/22/16 08:16 07/22/16 08:16 Labs: Abnormal Lab Results - Last 24 Hours (Table) 07/21/16 07/21/16 07/21/16 Range/Units 08:30 11:57 14:01 WBC 23.3 H (3.8-10.6) k/uL RBC 2.79 L (3.80-5.40) m/uL Hgb 8.2 L (11.4-16.0) gm/dL Hct 26.8 L (34.0-46.0) % MCHC 30.6 L (31.0-37.0) g/dL RDW 19.2 H (11.5-15.5) % Neutrophils # 20.9 H (1.3-7.7) k/uL Lymphocytes # (1.0-4.8) k/uL PT (9.0-12.0) sec BUN (7-17) mg/dL Creatinine (0.52-1.04) mg/dL Glucose (74-99) mg/dL POC Glucose (mg/dL) 145 H 208 H (75-99) mg/dL Calcium (8.4-10.2) mg/dL Total Protein (6.3-8.2) g/dL Albumin (3.5-5.0) g/dL 07/21/16 07/21/16 07/21/16 Range/Units 15:58 17:45 19:53 WBC (3.8-10.6) k/uL RBC (3.80-5.40) m/uL Hgb (11.4-16.0) gm/dL Hct (34.0-46.0) % MCHC (31.0-37.0) g/dL RDW (11.5-15.5) % Neutrophils # (1.3-7.7) k/uL Lymphocytes # (1.0-4.8) k/uL PT (9.0-12.0) sec BUN (7-17) mg/dL Creatinine (0.52-1.04) mg/dL Glucose (74-99) mg/dL POC Glucose (mg/dL) 216 H 160 H 207 H (75-99) mg/dL Calcium (8.4-10.2) mg/dL Total Protein (6.3-8.2) g/dL Albumin (3.5-5.0) g/dL 07/21/16 07/21/16 07/22/16 Range/Units 21:48 23:58 01:58 WBC (3.8-10.6) k/uL RBC (3.80-5.40) m/uL Hgb (11.4-16.0) gm/dL Hct (34.0-46.0) % MCHC (31.0-37.0) g/dL RDW (11.5-15.5) % Neutrophils # (1.3-7.7) k/uL Lymphocytes # (1.0-4.8) k/uL PT (9.0-12.0) sec BUN (7-17) mg/dL Creatinine (0.52-1.04) mg/dL Glucose (74-99) mg/dL POC Glucose (mg/dL) 181 H 185 H 153 H (75-99) mg/dL Calcium (8.4-10.2) mg/dL Total Protein (6.3-8.2) g/dL Albumin (3.5-5.0) g/dL 07/22/16 07/22/16 07/22/16 Range/Units 04:10 05:56 07:52 WBC (3.8-10.6) k/uL RBC (3.80-5.40) m/uL Hgb (11.4-16.0) gm/dL Hct (34.0-46.0) % MCHC (31.0-37.0) g/dL RDW (11.5-15.5) % Neutrophils # (1.3-7.7) k/uL Lymphocytes # (1.0-4.8) k/uL PT (9.0-12.0) sec BUN (7-17) mg/dL Creatinine (0.52-1.04) mg/dL Glucose (74-99) mg/dL POC Glucose (mg/dL) 194 H 208 H 204 H (75-99) mg/dL Calcium (8.4-10.2) mg/dL Total Protein (6.3-8.2) g/dL Albumin (3.5-5.0) g/dL 07/22/16 07/22/16 07/22/16 Range/Units 08:16 08:16 08:16 WBC 17.3 H (3.8-10.6) k/uL RBC 2.67 L (3.80-5.40) m/uL Hgb 7.8 L (11.4-16.0) gm/dL Hct 25.4 L (34.0-46.0) % MCHC 30.9 L (31.0-37.0) g/dL RDW 18.8 H (11.5-15.5) % Neutrophils # 15.9 H (1.3-7.7) k/uL Lymphocytes # 0.7 L (1.0-4.8) k/uL PT 33.7 H (9.0-12.0) sec BUN 61 H (7-17) mg/dL Creatinine 1.15 H (0.52-1.04) mg/dL Glucose 161 H (74-99) mg/dL POC Glucose (mg/dL) (75-99) mg/dL Calcium 8.3 L (8.4-10.2) mg/dL Total Protein 5.2 L (6.3-8.2) g/dL Albumin 2.6 L (3.5-5.0) g/dL Assessment and Plan Plan: #1 bacterial pneumonia with sepsis present on admission: Normal bronchoscopy during this admission. Pulmonary infectious disease following. Bronchial culture growing MRSA with yeast and fungal hyphae. Patient is currently on vancomycin. Also adding Diflucan and nystatin swish and swallow to cover the yeast. #2 acute systolic congestive heart failure exacerbation: Elevated BNP level on admission. Patient receiving oral Lasix. #3 urinary tract infection : Urine culture Enterobacter cloacae and pseudomonas aeruginosa. Continue current antibiotics. Dr. Wild following. Continue Levaquin #4 left groin surgical wound infection with known history of seroma. Evaluated by Dr. García. Continue current wound care #5 chronic atrial fibrillation : INR 3.5. Likely related to interaction between Coumadin and Levaquin. Repeat PT/INR in a.m. #6 recent left lower extremity arterial occlusion requiring surgical intervention by vascular surgery Dr. García #7 diabetes mellitus type 2 on insulin drip secondary to steroids #8 severe protein calorie malnutrition: Start protein supplement poor nutritional status was decreased albumin 2.6 will have a nutrition consult #9 iron deficiency anemia : With history of GI bleed and unable to proceed with colonoscopy due to multiple complications had EGD at [facility] a few months ago that was unremarkable. Iron normal at 97. Continue with her ferrous sulfate. Patient did receive a unit of blood during this admission. Hemoglobin 7.8. Stool for occult blood negative #10 acute exacerbation of chronic obstructive pulmonary disease continue steroids and bronchodilators #11 acute kidney injury: Showing improvement continue to monitor #12 bacteremia with one blood culture positive coagulase negative staph repeat blood cultures negative 13 essential hypertension with elevated blood pressure this morning. Patient received her home meds will blood pressure repeated. Make further adjustments if needed I performed an examination of the patient and discussed their management with the physician Pst Supervisor. I have reviewed the Physician Pst Supervisor's notes and agree with the documented findings and plan of care
--- NOTE | 2016-07-22 11:27 | P.PN ---
Subjective This is a 76-year-old female patient is being evaluated and examined today on the fourth floor. This patient is well-known to our services. This patient was recently hospitalized multiple times over the last few months with pneumonia , significant bronchiectasis, COPD exacerbation, GI bleed, CHF exacerbation and left leg ischemia status post thrombectomy. Patient was recently admitted to [facility] after discharge from hospital. Patient was currently on 3 L of oxygen at the [facility]. The patient was transferred here from the [facility] with increasing weakness, increasing shortness of breath, productive cough and decreased oral intake. The patient has had this going on for about 10 days. The patient was admitted with sepsis, urinary tract infection and pneumonia. Chest x-ray was reviewed. Upon examination the patient's resting up in bed on 4 L of supplemental oxygen via nasal cannula. She continues to sound congested and has a cough that is productive with white sputum, however this has been decreasing in severity. She has been using her incentive spirometer and flutter valve frequently throughout the day. Patient continues to work with therapy. Objective - Vital Signs Vital signs: Vital Signs Temp 97.0 F L 07/22/16 07:00 Pulse 76 07/22/16 11:23 Resp 18 07/22/16 07:00 BP 173/70 07/22/16 07:00 Pulse Ox 97 07/22/16 07:00 Intake & Output 07/21/16 07/22/16 07/22/16 18:59 06:59 18:59 Intake Total 250.791 50.466 23.100 Output Total 4 Balance 246.791 50.466 23.100 Intake: IV 194 Insulin Regular 100 unit 34 In Sodium Chloride 0.9% 100 ml @ Titrate IV .Q0M SHARONDA Rx#:[id number] Normal Saline at 20ml/hr 160 Intake, IV Titration 56.791 50.466 23.100 Amount Insulin Regular 100 unit 56.791 50.466 23.100 In Sodium Chloride 0.9% 100 ml @ Titrate IV .Q0M SHARONDA Rx#:[id number] Output: Urine 4 Other: Voiding Method Bedpan # Voids 5 - Exam GENERAL EXAM: Alert, active, comfortable in no apparent distress. HEAD: Normocephalic. EYES: Normal reaction of pupils, equal size. NOSE: Clear with pink turbinates. THROAT: No erythema or exudates. NECK: No masses, no JVD. CHEST: No chest wall deformity. LUNGS: Lung sounds noted to be bilaterally coarse , scattered rhonchi . Basis diminished. CVS: S1 and S2 normal with no audible mumurs, regular rhythm. ABDOMEN: No hepatosplenomegaly, normal bowel sounds, no guarding or rigidity. EXTREMITIES: +1-2 edema noted, pedal pulses palpable. SKIN: No rashes CENTRAL NERVOUS SYSTEM: No focal deficits, tone is normal in all 4 extremities. - Labs CBC & Chem 7: 07/22/16 08:16 07/22/16 08:16 Labs: Abnormal Lab Results - Last 24 Hours (Table) 07/21/16 07/21/16 07/21/16 Range/Units 11:57 14:01 15:58 WBC (3.8-10.6) k/uL RBC (3.80-5.40) m/uL Hgb (11.4-16.0) gm/dL Hct (34.0-46.0) % MCHC (31.0-37.0) g/dL RDW (11.5-15.5) % Neutrophils # (1.3-7.7) k/uL Lymphocytes # (1.0-4.8) k/uL PT (9.0-12.0) sec BUN (7-17) mg/dL Creatinine (0.52-1.04) mg/dL Glucose (74-99) mg/dL POC Glucose (mg/dL) 145 H 208 H 216 H (75-99) mg/dL Calcium (8.4-10.2) mg/dL Total Protein (6.3-8.2) g/dL Albumin (3.5-5.0) g/dL 07/21/16 07/21/16 07/21/16 Range/Units 17:45 19:53 21:48 WBC (3.8-10.6) k/uL RBC (3.80-5.40) m/uL Hgb (11.4-16.0) gm/dL Hct (34.0-46.0) % MCHC (31.0-37.0) g/dL RDW (11.5-15.5) % Neutrophils # (1.3-7.7) k/uL Lymphocytes # (1.0-4.8) k/uL PT (9.0-12.0) sec BUN (7-17) mg/dL Creatinine (0.52-1.04) mg/dL Glucose (74-99) mg/dL POC Glucose (mg/dL) 160 H 207 H 181 H (75-99) mg/dL Calcium (8.4-10.2) mg/dL Total Protein (6.3-8.2) g/dL Albumin (3.5-5.0) g/dL 07/21/16 07/22/16 07/22/16 Range/Units 23:58 01:58 04:10 WBC (3.8-10.6) k/uL RBC (3.80-5.40) m/uL Hgb (11.4-16.0) gm/dL Hct (34.0-46.0) % MCHC (31.0-37.0) g/dL RDW (11.5-15.5) % Neutrophils # (1.3-7.7) k/uL Lymphocytes # (1.0-4.8) k/uL PT (9.0-12.0) sec BUN (7-17) mg/dL Creatinine (0.52-1.04) mg/dL Glucose (74-99) mg/dL POC Glucose (mg/dL) 185 H 153 H 194 H (75-99) mg/dL Calcium (8.4-10.2) mg/dL Total Protein (6.3-8.2) g/dL Albumin (3.5-5.0) g/dL 07/22/16 07/22/16 07/22/16 Range/Units 05:56 07:52 08:16 WBC (3.8-10.6) k/uL RBC (3.80-5.40) m/uL Hgb (11.4-16.0) gm/dL Hct (34.0-46.0) % MCHC (31.0-37.0) g/dL RDW (11.5-15.5) % Neutrophils # (1.3-7.7) k/uL Lymphocytes # (1.0-4.8) k/uL PT (9.0-12.0) sec BUN 61 H (7-17) mg/dL Creatinine 1.15 H (0.52-1.04) mg/dL Glucose 161 H (74-99) mg/dL POC Glucose (mg/dL) 208 H 204 H (75-99) mg/dL Calcium 8.3 L (8.4-10.2) mg/dL Total Protein 5.2 L (6.3-8.2) g/dL Albumin 2.6 L (3.5-5.0) g/dL 07/22/16 07/22/16 07/22/16 Range/Units 08:16 08:16 10:25 WBC 17.3 H (3.8-10.6) k/uL RBC 2.67 L (3.80-5.40) m/uL Hgb 7.8 L (11.4-16.0) gm/dL Hct 25.4 L (34.0-46.0) % MCHC 30.9 L (31.0-37.0) g/dL RDW 18.8 H (11.5-15.5) % Neutrophils # 15.9 H (1.3-7.7) k/uL Lymphocytes # 0.7 L (1.0-4.8) k/uL PT 33.7 H (9.0-12.0) sec BUN (7-17) mg/dL Creatinine (0.52-1.04) mg/dL Glucose (74-99) mg/dL POC Glucose (mg/dL) 150 H (75-99) mg/dL Calcium (8.4-10.2) mg/dL Total Protein (6.3-8.2) g/dL Albumin (3.5-5.0) g/dL Assessment and Plan Plan: Assessment MRSA Pneumonia with sepsis Acute exacerbation of chronic obstructive pulmonary disease Acute on chronic hypoxic respiratory failure Acute on chronic systolic congestive heart failure Chronic atrial fibrillation Diabetes mellitus insulin-dependent Left groin Wound/infection Urinary Tract infection Plan Medications have been reviewed and will be continued as ordered. Continue with pulmonary hygiene, coughing and deep breathing exercises, and supportive care. Supplemental oxygen to maintain oxygen saturations of 92% or better. Continue with IV antibiotics and IV steroids. Continue to wean down steroids. Continue nebulizer treatments. GI and DVT prophylaxis. We will obtain a sputum culture. Infectious disease also on consult. We will continue to monitor labs/results and adjust treatment as necessary. Further recommendations pending. I performed an examination of the patient and discussed their management with the nurse practitioner. I have reviewed the nurse practitioner's note and agree with the documented findings and plan of care.
[2016-07-22 11:50] LABS: Glucose,Whole Blood 160 mg/dL (75-99)
[2016-07-22] MEDS: INSULIN REGULAR 100 UNIT in SODIUM CHLORIDE 0.9% 100 ML IV SCH ×2 (11:59→17:58)
[2016-07-22] MEDS: FLUCONAZOLE ORAL SUSP 1,400 MG/35 ML BOTTLE PO SCH (12:07)
[2016-07-22] MEDS: NYSTATIN 100,000 UNIT/ML SUSP 500,000 UNIT/5 ML CUP PO SCH ×3 (13:00→21:42)
[2016-07-22 14:14] LABS: Glucose,Whole Blood 212 mg/dL (75-99)
[2016-07-22 16:12] LABS: Glucose,Whole Blood 169 mg/dL (75-99)
[2016-07-22 18:01] LABS: Glucose,Whole Blood 177 mg/dL (75-99)
[2016-07-22 20:06] LABS: Glucose,Whole Blood 171 mg/dL (75-99)
[2016-07-22] MEDS: LOSARTAN 50 MG TAB PO SCH (21:43)
[2016-07-22] MEDS: MONTELUKAST 10 MG TAB PO SCH (21:43)
[2016-07-22] MEDS: PRAVASTATIN SODIUM 20 MG TAB PO SCH (21:43)
[2016-07-22] MEDS: POLYETHYLENE GLYCOL 3350 17 GM POWD.PACK PO SCH (21:44)
[2016-07-22 22:18] LABS: Glucose,Whole Blood 140 mg/dL (75-99)
[2016-07-23 00:03] LABS: Glucose,Whole Blood 145 mg/dL (75-99)
[2016-07-23 02:10] LABS: Glucose,Whole Blood 156 mg/dL (75-99)
[2016-07-23 04:12] LABS: Glucose,Whole Blood 191 mg/dL (75-99)
[2016-07-23 05:57] LABS: Glucose,Whole Blood 217 mg/dL (75-99)
[2016-07-23 07:53] LABS: Glucose,Whole Blood 204 mg/dL (75-99)
[2016-07-23] MEDS: BUDESONIDE 1 MG/2 ML NEBU INHALATION SCH ×2 (07:59→20:31)
[2016-07-23] MEDS: IPRATROPIUM-ALBUTEROL 3 ML NEB INHALATION SCH ×4 (07:59→20:31)
[2016-07-23] MEDS: FERROUS SULFATE 325 MG TAB PO SCH ×2 (08:06→22:10)
[2016-07-23] MEDS: INSULIN LISPRO (humaLOG) 300 UNIT/3 ML VIAL SQ SCH ×3 (08:06→17:46)
[2016-07-23] MEDS: DOCUSATE 100 MG CAP PO SCH ×2 (08:06→22:10)
[2016-07-23] MEDS: ALPRAZolam 0.25 MG TAB PO SCH ×2 (08:06→22:10)
[2016-07-23] MEDS: DIGOXIN 125 MCG TAB PO SCH (08:06)
[2016-07-23] MEDS: FLUCONAZOLE ORAL SUSP 1,400 MG/35 ML BOTTLE PO SCH (08:06)
[2016-07-23] MEDS: PANTOPRAZOLE 40 MG TABLET PO SCH (08:07)
[2016-07-23] MEDS: guaiFENesin 600 MG TABLET.ER PO SCH ×2 (08:07→22:10)
[2016-07-23] MEDS: methylPREDNISolone SOD SUCCI 40 MG/ML 1 ML VIAL IV SCH ×2 (08:07→22:11)
[2016-07-23] MEDS: FUROSEMIDE 40 MG TAB PO SCH ×2 (08:07→16:13)
[2016-07-23] MEDS: NYSTATIN 100,000 UNIT/ML SUSP 500,000 UNIT/5 ML CUP PO SCH ×4 (08:07→22:11)
[2016-07-23] MEDS: METOPROLOL SUCCINATE (ER) 100 MG TAB.ER.24H PO SCH ×2 (08:07→22:11)
[2016-07-23 09:02] LABS: Anisocytosis Slight; Basophils % (A) 0 %; CH 28.8; CHCM 29.5; Eosinophils % (A) 0 %; HCT 26.7 % (34.0-46.0); HDW 3.06; HGB 7.9 gm/dL (11.4-16.0); Hypochromasia Marked; Luc # (Auto) 0.11; Luc % (Auto) 1; Lymphocytes # (A) 0.5 k/uL (1.0-4.8); Lymphocytes % (A) 3 %; MCHC 29.7 g/dL (31.0-37.0); MCV 97.7 fL (80.0-100.0); Macrocytosis Slight; Mean Platelet Volume 8.1; Monocytes # (A) 0.5 k/uL (0-1.0); Monocytes % (A) 3 %; Neutrophils # (A) 16.8 k/uL (1.3-7.7); Neutrophils % (A) 93 %; RBC 2.73 m/uL (3.80-5.40); RDW 18.8 % (11.5-15.5)
[2016-07-23 09:10] LABS: Calcium 8.2 mg/dL (8.4-10.2); Potassium 4.5 mmol/L (3.5-5.1)
[2016-07-23 09:11] LABS: INR 2.7 (<1.1); Prothrombin Time 25.8 sec (9.0-12.0)
--- NOTE | 2016-07-23 09:26 | P.PN ---
Subjective This is a 76-year-old female patient is being evaluated and examined today on the fourth floor. This patient is well-known to our services. This patient was recently hospitalized multiple times over the last few months with pneumonia , significant bronchiectasis, COPD exacerbation, GI bleed, CHF exacerbation and left leg ischemia status post thrombectomy. Patient was recently admitted to [facility] after discharge from hospital. Patient was currently on 3 L of oxygen at the [facility]. The patient was transferred here from the [facility] with increasing weakness, increasing shortness of breath, productive cough and decreased oral intake. The patient has had this going on for about 10 days. The patient was admitted with sepsis, urinary tract infection and pneumonia. Chest x-ray was reviewed. Upon examination the patient's resting up in bed on 4 L of supplemental oxygen via nasal cannula. She continues to sound congested and has a cough that is productive with white sputum, however this has been decreasing in severity. Patient is still not at baseline. She has been using her incentive spirometer and flutter valve frequently throughout the day. Patient continues to work with therapy. Infectious disease on consult, patient was afebrile overnight. Patient does wear her CPAP every night. Objective - Vital Signs Vital signs: Vital Signs Temp 96.9 F L 07/23/16 07:00 Pulse 76 07/23/16 08:00 Resp 22 07/23/16 07:00 BP 155/79 07/23/16 07:00 Pulse Ox 98 07/23/16 07:00 Intake & Output 07/22/16 07/23/16 07/23/16 18:59 06:59 18:59 Intake Total 51.375 42.583 9.35 Balance 51.375 42.583 9.35 Intake: Intake, IV Titration 51.375 42.583 9.35 Amount Insulin Regular 100 unit 51.375 42.583 9.35 In Sodium Chloride 0.9% 100 ml @ Titrate IV .Q0M SHARONDA Rx#:[id number] Other: # Voids 4 5 - Exam GENERAL EXAM: Alert, active, comfortable in no apparent distress. HEAD: Normocephalic. EYES: Normal reaction of pupils, equal size. NOSE: Clear with pink turbinates. THROAT: No erythema or exudates. NECK: No masses, no JVD. CHEST: No chest wall deformity. LUNGS: Lung sounds noted to be bilaterally coarse , scattered rhonchi . Basis diminished. CVS: S1 and S2 normal with no audible mumurs, regular rhythm. ABDOMEN: No hepatosplenomegaly, normal bowel sounds, no guarding or rigidity. EXTREMITIES: +1-2 edema noted, pedal pulses palpable. SKIN: No rashes CENTRAL NERVOUS SYSTEM: No focal deficits, tone is normal in all 4 extremities. - Labs CBC & Chem 7: 07/23/16 08:50 07/23/16 08:50 Labs: Abnormal Lab Results - Last 24 Hours (Table) 07/22/16 07/22/16 07/22/16 Range/Units 08:16 08:16 08:16 WBC 17.3 H (3.8-10.6) k/uL RBC 2.67 L (3.80-5.40) m/uL Hgb 7.8 L (11.4-16.0) gm/dL Hct 25.4 L (34.0-46.0) % MCHC 30.9 L (31.0-37.0) g/dL RDW 18.8 H (11.5-15.5) % Neutrophils # 15.9 H (1.3-7.7) k/uL Lymphocytes # 0.7 L (1.0-4.8) k/uL PT 33.7 H (9.0-12.0) sec Chloride (98-107) mmol/L BUN 61 H (7-17) mg/dL Creatinine 1.15 H (0.52-1.04) mg/dL Glucose 161 H (74-99) mg/dL POC Glucose (mg/dL) (75-99) mg/dL Calcium 8.3 L (8.4-10.2) mg/dL Total Protein 5.2 L (6.3-8.2) g/dL Albumin 2.6 L (3.5-5.0) g/dL 07/22/16 07/22/16 07/22/16 Range/Units 10:25 11:48 14:05 WBC (3.8-10.6) k/uL RBC (3.80-5.40) m/uL Hgb (11.4-16.0) gm/dL Hct (34.0-46.0) % MCHC (31.0-37.0) g/dL RDW (11.5-15.5) % Neutrophils # (1.3-7.7) k/uL Lymphocytes # (1.0-4.8) k/uL PT (9.0-12.0) sec Chloride (98-107) mmol/L BUN (7-17) mg/dL Creatinine (0.52-1.04) mg/dL Glucose (74-99) mg/dL POC Glucose (mg/dL) 150 H 160 H 212 H (75-99) mg/dL Calcium (8.4-10.2) mg/dL Total Protein (6.3-8.2) g/dL Albumin (3.5-5.0) g/dL 07/22/16 07/22/16 07/22/16 Range/Units 16:09 17:58 20:05 WBC (3.8-10.6) k/uL RBC (3.80-5.40) m/uL Hgb (11.4-16.0) gm/dL Hct (34.0-46.0) % MCHC (31.0-37.0) g/dL RDW (11.5-15.5) % Neutrophils # (1.3-7.7) k/uL Lymphocytes # (1.0-4.8) k/uL PT (9.0-12.0) sec Chloride (98-107) mmol/L BUN (7-17) mg/dL Creatinine (0.52-1.04) mg/dL Glucose (74-99) mg/dL POC Glucose (mg/dL) 169 H 177 H 171 H (75-99) mg/dL Calcium (8.4-10.2) mg/dL Total Protein (6.3-8.2) g/dL Albumin (3.5-5.0) g/dL 07/22/16 07/23/16 07/23/16 Range/Units 21:56 00:02 02:08 WBC (3.8-10.6) k/uL RBC (3.80-5.40) m/uL Hgb (11.4-16.0) gm/dL Hct (34.0-46.0) % MCHC (31.0-37.0) g/dL RDW (11.5-15.5) % Neutrophils # (1.3-7.7) k/uL Lymphocytes # (1.0-4.8) k/uL PT (9.0-12.0) sec Chloride (98-107) mmol/L BUN (7-17) mg/dL Creatinine (0.52-1.04) mg/dL Glucose (74-99) mg/dL POC Glucose (mg/dL) 140 H 145 H 156 H (75-99) mg/dL Calcium (8.4-10.2) mg/dL Total Protein (6.3-8.2) g/dL Albumin (3.5-5.0) g/dL 07/23/16 07/23/16 07/23/16 Range/Units 04:10 05:56 07:47 WBC (3.8-10.6) k/uL RBC (3.80-5.40) m/uL Hgb (11.4-16.0) gm/dL Hct (34.0-46.0) % MCHC (31.0-37.0) g/dL RDW (11.5-15.5) % Neutrophils # (1.3-7.7) k/uL Lymphocytes # (1.0-4.8) k/uL PT (9.0-12.0) sec Chloride (98-107) mmol/L BUN (7-17) mg/dL Creatinine (0.52-1.04) mg/dL Glucose (74-99) mg/dL POC Glucose (mg/dL) 191 H 217 H 204 H (75-99) mg/dL Calcium (8.4-10.2) mg/dL Total Protein (6.3-8.2) g/dL Albumin (3.5-5.0) g/dL 07/23/16 07/23/16 07/23/16 Range/Units 08:50 08:50 08:50 WBC 18.0 H (3.8-10.6) k/uL RBC 2.73 L (3.80-5.40) m/uL Hgb 7.9 L (11.4-16.0) gm/dL Hct 26.7 L (34.0-46.0) % MCHC 29.7 L (31.0-37.0) g/dL RDW 18.8 H (11.5-15.5) % Neutrophils # 16.8 H (1.3-7.7) k/uL Lymphocytes # 0.5 L (1.0-4.8) k/uL PT 25.8 H (9.0-12.0) sec Chloride 108 H (98-107) mmol/L BUN 63 H (7-17) mg/dL Creatinine 1.13 H (0.52-1.04) mg/dL Glucose 212 H (74-99) mg/dL POC Glucose (mg/dL) (75-99) mg/dL Calcium 8.2 L (8.4-10.2) mg/dL Total Protein (6.3-8.2) g/dL Albumin (3.5-5.0) g/dL Assessment and Plan Plan: Assessment MRSA Pneumonia with sepsis Acute exacerbation of chronic obstructive pulmonary disease Acute on chronic hypoxic respiratory failure Acute on chronic systolic congestive heart failure Chronic atrial fibrillation Diabetes mellitus insulin-dependent Left groin Wound/infection Urinary Tract infection Plan Medications have been reviewed and will be continued as ordered. Continue with pulmonary hygiene, coughing and deep breathing exercises, and supportive care. Supplemental oxygen to maintain oxygen saturations of 92% or better. Continue with IV antibiotics and IV steroids. Continue to wean down steroids. Continue nebulizer treatments. GI and DVT prophylaxis. Continue with incentive spirometer and flutter valve. Continue with CPAP at at bedtime, patient uses her home CPAP machine. Infectious disease also on consult. We will continue to monitor labs/results and adjust treatment as necessary. Further recommendations pending. I performed an examination of the patient and discussed their management with the nurse practitioner. I have reviewed the nurse practitioner's note and agree with the documented findings and plan of care.
[2016-07-23] MEDS: HYDROcodone/APAP 10-325MG 1 EACH TAB PO PRN (10:08)
[2016-07-23 10:12] LABS: Glucose,Whole Blood 242 mg/dL (75-99)
[2016-07-23 11:20] VITALS: BMI 36.1
[2016-07-23] MEDS: INSULIN REGULAR 100 UNIT in SODIUM CHLORIDE 0.9% 100 ML IV SCH (12:01)
[2016-07-23 12:02] LABS: Glucose,Whole Blood 239 mg/dL (75-99)
[2016-07-23 14:28] LABS: Glucose,Whole Blood 194 mg/dL (75-99)
--- NOTE | 2016-07-23 15:53 | P.PN ---
Subjective Principal diagnosis: Pneumonia with sepsis Patient is doing better today she is still complaining of cough and shortness of breath She is complaining of weakness with inability to stand or walk She was able to sit on the edge of the bed. Otherwise she denies any complaints at this time Objective - Vital Signs Vital signs: Vital Signs Temp 96.9 F L 07/23/16 07:00 Pulse 80 07/23/16 11:56 Resp 22 07/23/16 07:00 BP 155/79 07/23/16 07:00 Pulse Ox 98 07/23/16 07:00 Intake & Output 07/22/16 07/23/16 07/23/16 18:59 06:59 18:59 Intake Total 51.375 42.583 1092.325 Balance 51.375 42.583 1092.325 Weight 108 kg Intake: Intake, IV Titration 51.375 42.583 52.325 Amount Insulin Regular 100 unit 51.375 42.583 52.325 In Sodium Chloride 0.9% 100 ml @ Titrate IV .Q0M [facility] Rx#:[id number] Oral 1040 Other: # Voids 4 5 3 - Exam In general patient is alert and oriented 3 in no apparent distress HEENT head normocephalic and atraumatic Neck is supple no JVD no goiter no lymphadenopathy Chest exam reveals bilateral coarse crackles no wheezing Cardiac exam reveals regular heart sounds no gallops no murmurs Abdomen is soft nontender no organomegaly Extremity exam reveals 2+ edema no cyanosis or clubbing - Labs CBC & Chem 7: 07/23/16 08:50 07/23/16 08:50 Labs: Abnormal Lab Results - Last 24 Hours (Table) 07/22/16 07/22/16 07/22/16 Range/Units 16:09 17:58 20:05 WBC (3.8-10.6) k/uL RBC (3.80-5.40) m/uL Hgb (11.4-16.0) gm/dL Hct (34.0-46.0) % MCHC (31.0-37.0) g/dL RDW (11.5-15.5) % Neutrophils # (1.3-7.7) k/uL Lymphocytes # (1.0-4.8) k/uL PT (9.0-12.0) sec Chloride (98-107) mmol/L BUN (7-17) mg/dL Creatinine (0.52-1.04) mg/dL Glucose (74-99) mg/dL POC Glucose (mg/dL) 169 H 177 H 171 H (75-99) mg/dL Calcium (8.4-10.2) mg/dL 07/22/16 07/23/16 07/23/16 Range/Units 21:56 00:02 02:08 WBC (3.8-10.6) k/uL RBC (3.80-5.40) m/uL Hgb (11.4-16.0) gm/dL Hct (34.0-46.0) % MCHC (31.0-37.0) g/dL RDW (11.5-15.5) % Neutrophils # (1.3-7.7) k/uL Lymphocytes # (1.0-4.8) k/uL PT (9.0-12.0) sec Chloride (98-107) mmol/L BUN (7-17) mg/dL Creatinine (0.52-1.04) mg/dL Glucose (74-99) mg/dL POC Glucose (mg/dL) 140 H 145 H 156 H (75-99) mg/dL Calcium (8.4-10.2) mg/dL 07/23/16 07/23/16 07/23/16 Range/Units 04:10 05:56 07:47 WBC (3.8-10.6) k/uL RBC (3.80-5.40) m/uL Hgb (11.4-16.0) gm/dL Hct (34.0-46.0) % MCHC (31.0-37.0) g/dL RDW (11.5-15.5) % Neutrophils # (1.3-7.7) k/uL Lymphocytes # (1.0-4.8) k/uL PT (9.0-12.0) sec Chloride (98-107) mmol/L BUN (7-17) mg/dL Creatinine (0.52-1.04) mg/dL Glucose (74-99) mg/dL POC Glucose (mg/dL) 191 H 217 H 204 H (75-99) mg/dL Calcium (8.4-10.2) mg/dL 07/23/16 07/23/16 07/23/16 Range/Units 08:50 08:50 08:50 WBC 18.0 H (3.8-10.6) k/uL RBC 2.73 L (3.80-5.40) m/uL Hgb 7.9 L (11.4-16.0) gm/dL Hct 26.7 L (34.0-46.0) % MCHC 29.7 L (31.0-37.0) g/dL RDW 18.8 H (11.5-15.5) % Neutrophils # 16.8 H (1.3-7.7) k/uL Lymphocytes # 0.5 L (1.0-4.8) k/uL PT 25.8 H (9.0-12.0) sec Chloride 108 H (98-107) mmol/L BUN 63 H (7-17) mg/dL Creatinine 1.13 H (0.52-1.04) mg/dL Glucose 212 H (74-99) mg/dL POC Glucose (mg/dL) (75-99) mg/dL Calcium 8.2 L (8.4-10.2) mg/dL 07/23/16 07/23/16 07/23/16 Range/Units 10:04 11:59 14:24 WBC (3.8-10.6) k/uL RBC (3.80-5.40) m/uL Hgb (11.4-16.0) gm/dL Hct (34.0-46.0) % MCHC (31.0-37.0) g/dL RDW (11.5-15.5) % Neutrophils # (1.3-7.7) k/uL Lymphocytes # (1.0-4.8) k/uL PT (9.0-12.0) sec Chloride (98-107) mmol/L BUN (7-17) mg/dL Creatinine (0.52-1.04) mg/dL Glucose (74-99) mg/dL POC Glucose (mg/dL) 242 H 239 H 194 H (75-99) mg/dL Calcium (8.4-10.2) mg/dL Assessment and Plan Plan: #1 bacterial pneumonia with sepsis present on admission: Known history of sputum positive culture for MRSA Continue with current IV antibiotics Followed by pulmonary service and infectious disease. #2 acute systolic congestive heart failure exacerbation: Elevated BNP level on admission. Patient receiving oral Lasix. #3 urinary tract infection : Urine culture Enterobacter cloacae and pseudomonas aeruginosa. Continue current antibiotics. #4 left groin surgical wound infection with known history of seroma. Evaluated by Dr. García. Continue current wound care #5 chronic atrial fibrillation. Continue with Coumadin therapy #6 recent left lower extremity arterial occlusion requiring surgical intervention by vascular surgery Dr. García #7 diabetes mellitus type 2 on insulin drip secondary to steroids #8 severe protein calorie malnutrition: Start protein supplement poor nutritional status was decreased albumin 2.6 will have a nutrition consult #9 iron deficiency anemia : With history of GI bleed and unable to proceed with colonoscopy due to multiple complications had EGD at [facility] a few months ago that was unremarkable. Check iron studies. Check stool for occult blood. Hemoglobin has dropped to 7.6. #10 acute exacerbation of chronic obstructive pulmonary disease continue steroids and bronchodilators #11 acute kidney injury: Creatinine is up to 1.64. Lasix held yesterday evening. Continue to monitor #12 bacteremia with one blood culture positive coagulase negative staph. At this time patient is followed by Dr. Wild for IV antibiotic management Patient was also started on IV Solu-Medrol for COPD exacerbation, patient is well known to Dr. Pittman Will consult him for follow-up Will recheck labs in a.m. Will follow closely Prognosis is guarded due to multiple medical problems
[2016-07-23 16:04] LABS: Glucose,Whole Blood 155 mg/dL (75-99)
[2016-07-23] MEDS: LEVOFLOXACIN 750 MG TAB PO SCH (16:13)
[2016-07-23 17:56] LABS: Glucose,Whole Blood 154 mg/dL (75-99)
[2016-07-23] MEDS ORDERED: WARFARIN 2.5 MG TAB PO ONE (18:00)
[2016-07-23 20:12] LABS: Glucose,Whole Blood 195 mg/dL (75-99)
[2016-07-23] MEDS: VANCOMYCIN 2,000 MG in SODIUM CHLORIDE 0.9% 500 ML IVPB SCH (22:10)
[2016-07-23] MEDS: POLYETHYLENE GLYCOL 3350 17 GM POWD.PACK PO SCH (22:11)
[2016-07-23] MEDS: PRAVASTATIN SODIUM 20 MG TAB PO SCH (22:11)
[2016-07-23] MEDS: LOSARTAN 50 MG TAB PO SCH (22:11)
[2016-07-23] MEDS: MONTELUKAST 10 MG TAB PO SCH (22:11)
[2016-07-23 22:13] LABS: Glucose,Whole Blood 194 mg/dL (75-99)
--- NOTE | 2016-07-23 23:28 | P.PN ---
Subjective Principal diagnosis: Shortness of breath 76-year-old female who has a history of extensive hospitalizations earlier this year. She is evidence of the extensive lung disease. 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 She has sleep apnea. Her most recent stay she had evidence of extensive illness including the large clot from the left leg that required endarterectomy with patch angioplasty. She has significant difficulties at that site. She had pneumonia and infection at the left leg site. See the long course of antibiotic therapy. During that last day she have a short hiatus to her 's . Now presenting with increasing shortness of breath as well as concerns to sepsis and urinary tract infection. Patient has extensive congestion to her chest, pulmonary has seen bronchoscopies been performed showing evidence of MRSA. Seems to responding modestly well to current antibiotic therapy with vancomycin and Levaquin. Patient still quite short of breath but improved from admission. Denies high- grade fevers, chills or rigors. Objective - Vital Signs Vital signs: Vital Signs Temp 97.7 F 07/23/16 15:00 Pulse 76 07/23/16 20:49 Resp 16 07/23/16 15:00 BP 130/71 07/23/16 15:00 Pulse Ox 98 07/23/16 15:00 Intake & Output 07/23/16 07/23/16 07/24/16 06:59 18:59 06:59 Intake Total 42.583 1104.467 14.733 Balance 42.583 1104.467 14.733 Weight 108 kg Intake: Intake, IV Titration 42.583 64.467 14.733 Amount Insulin Regular 100 unit 42.583 64.467 14.733 In Sodium Chloride 0.9% 100 ml @ Titrate IV .Q0M [facility] Rx#:[id number] Oral 1040 Other: # Voids 5 3 - Exam 76-year-old woman who relates she is feeling less short of breath but appears to still be short of breath HEENT: Anicteric conjunctiva are pink and moist nasal mucosa grossly intact without significant lesions, there is no thrush. Worn dentition Neck: The neck is supple without significant lymphadenopathy or thyromegaly. Lungs: Symmetrical air entry is noted. Wheezes throughout the left lung is noted Bibasilar crackles are heard right greater than left no dullness is noted minimal egophony to the right base is noted Heart: Regular rate and rhythm with an audible S1-S2, no S3 soft S4, There is no significant murmur click or rub, PMI was nondisplaced. Abdomen: Obese, Positive bowel sounds soft and nontender without palpable masses or organomegaly. There was no guarding or rebound. Extremities: The upper and lower extremity is have some generalized edema. However no open ulcerations are seen. The entry site for the thrombectomy is without bleeding drainage or evidence of infection or tenderness Neuro: Awake alert oriented to person place and time. There are no acute new gross focal sensory motor deficits. She has significant generalized weakness though - Labs CBC & Chem 7: 07/23/16 08:50 07/23/16 08:50 Labs: Abnormal Lab Results - Last 24 Hours (Table) 07/23/16 07/23/16 07/23/16 Range/Units 00:02 02:08 04:10 WBC (3.8-10.6) k/uL RBC (3.80-5.40) m/uL Hgb (11.4-16.0) gm/dL Hct (34.0-46.0) % MCHC (31.0-37.0) g/dL RDW (11.5-15.5) % Neutrophils # (1.3-7.7) k/uL Lymphocytes # (1.0-4.8) k/uL PT (9.0-12.0) sec Chloride (98-107) mmol/L BUN (7-17) mg/dL Creatinine (0.52-1.04) mg/dL Glucose (74-99) mg/dL POC Glucose (mg/dL) 145 H 156 H 191 H (75-99) mg/dL Calcium (8.4-10.2) mg/dL 07/23/16 07/23/16 07/23/16 Range/Units 05:56 07:47 08:50 WBC (3.8-10.6) k/uL RBC (3.80-5.40) m/uL Hgb (11.4-16.0) gm/dL Hct (34.0-46.0) % MCHC (31.0-37.0) g/dL RDW (11.5-15.5) % Neutrophils # (1.3-7.7) k/uL Lymphocytes # (1.0-4.8) k/uL PT (9.0-12.0) sec Chloride 108 H (98-107) mmol/L BUN 63 H (7-17) mg/dL Creatinine 1.13 H (0.52-1.04) mg/dL Glucose 212 H (74-99) mg/dL POC Glucose (mg/dL) 217 H 204 H (75-99) mg/dL Calcium 8.2 L (8.4-10.2) mg/dL 07/23/16 07/23/16 07/23/16 Range/Units 08:50 08:50 10:04 WBC 18.0 H (3.8-10.6) k/uL RBC 2.73 L (3.80-5.40) m/uL Hgb 7.9 L (11.4-16.0) gm/dL Hct 26.7 L (34.0-46.0) % MCHC 29.7 L (31.0-37.0) g/dL RDW 18.8 H (11.5-15.5) % Neutrophils # 16.8 H (1.3-7.7) k/uL Lymphocytes # 0.5 L (1.0-4.8) k/uL PT 25.8 H (9.0-12.0) sec Chloride (98-107) mmol/L BUN (7-17) mg/dL Creatinine (0.52-1.04) mg/dL Glucose (74-99) mg/dL POC Glucose (mg/dL) 242 H (75-99) mg/dL Calcium (8.4-10.2) mg/dL 07/23/16 07/23/16 07/23/16 Range/Units 11:59 14:24 16:00 WBC (3.8-10.6) k/uL RBC (3.80-5.40) m/uL Hgb (11.4-16.0) gm/dL Hct (34.0-46.0) % MCHC (31.0-37.0) g/dL RDW (11.5-15.5) % Neutrophils # (1.3-7.7) k/uL Lymphocytes # (1.0-4.8) k/uL PT (9.0-12.0) sec Chloride (98-107) mmol/L BUN (7-17) mg/dL Creatinine (0.52-1.04) mg/dL Glucose (74-99) mg/dL POC Glucose (mg/dL) 239 H 194 H 155 H (75-99) mg/dL Calcium (8.4-10.2) mg/dL 07/23/16 07/23/16 07/23/16 Range/Units 17:46 20:07 22:09 WBC (3.8-10.6) k/uL RBC (3.80-5.40) m/uL Hgb (11.4-16.0) gm/dL Hct (34.0-46.0) % MCHC (31.0-37.0) g/dL RDW (11.5-15.5) % Neutrophils # (1.3-7.7) k/uL Lymphocytes # (1.0-4.8) k/uL PT (9.0-12.0) sec Chloride (98-107) mmol/L BUN (7-17) mg/dL Creatinine (0.52-1.04) mg/dL Glucose (74-99) mg/dL POC Glucose (mg/dL) 154 H 195 H 194 H (75-99) mg/dL Calcium (8.4-10.2) mg/dL Laboratory Results WBC 18.0 k/uL (3.8-10.6) H 07/23/16 08:50 RBC 2.73 m/uL (3.80-5.40) L 07/23/16 08:50 Hgb 7.9 gm/dL (11.4-16.0) L 07/23/16 08:50 Hct 26.7 % (34.0-46.0) L 07/23/16 08:50 MCV 97.7 fL (80.0-100.0) 07/23/16 08:50 MCH 29.0 pg (25.0-35.0) 07/23/16 08:50 MCHC 29.7 g/dL (31.0-37.0) L 07/23/16 08:50 RDW 18.8 % (11.5-15.5) H 07/23/16 08:50 Plt Count 265 k/uL (150-450) 07/23/16 08:50 Neutrophils % 93 % 07/23/16 08:50 Lymphocytes % 3 % 07/23/16 08:50 Monocytes % 3 % 07/23/16 08:50 Eosinophils % 0 % 07/23/16 08:50 Basophils % 0 % 07/23/16 08:50 Neutrophils # 16.8 k/uL (1.3-7.7) H 07/23/16 08:50 Lymphocytes # 0.5 k/uL (1.0-4.8) L 07/23/16 08:50 Monocytes # 0.5 k/uL (0-1.0) 07/23/16 08:50 Eosinophils # 0.0 k/uL (0-0.7) 07/23/16 08:50 Basophils # 0.0 k/uL (0-0.2) 07/23/16 08:50 Hypochromasia Marked 07/23/16 08:50 Poikilocytosis Slight 07/18/16 07:30 Anisocytosis Slight 07/23/16 08:50 Macrocytosis Slight 07/23/16 08:50 PT 25.8 sec (9.0-12.0) H 07/23/16 08:50 INR 2.7 (<1.1) 07/23/16 08:50 APTT 23.0 sec (22.0-30.0) 07/13/16 15:10 Sodium 139 mmol/L (137-145) 07/23/16 08:50 Potassium 4.5 mmol/L (3.5-5.1) 07/23/16 08:50 Chloride 108 mmol/L (98-107) H 07/23/16 08:50 Carbon Dioxide 23 mmol/L (22-30) 07/23/16 08:50 Anion Gap 8 mmol/L 07/23/16 08:50 BUN 63 mg/dL (7-17) H 07/23/16 08:50 Creatinine 1.13 mg/dL (0.52-1.04) H 07/23/16 08:50 Est GFR (MDRD) Af Amer 56 (>60 ml/min/1.73 sqM) 07/23/16 08:50 Est GFR (MDRD) Non-Af 47 (>60 ml/min/1.73 sqM) 07/23/16 08:50 Glucose 212 mg/dL (74-99) H 07/23/16 08:50 POC Glucose (mg/dL) 194 mg/dL (75-99) H 07/23/16 22:09 POC Glu Staff Certified Nurse Midwife ID Divina Galdamez 07/23/16 22:[address] Glu mg/dL 154 mg/dL 07/13/16 15:10 Hemoglobin A1c 7.0 % (4.2-6.1) H 07/13/16 15:10 Plasma Lactic Acid Good 1.3 mmol/L (0.7-2.0) 07/13/16 15:10 Calcium 8.2 mg/dL (8.4-10.2) L 07/23/16 08:50 Magnesium 1.9 mg/dL (1.6-2.3) 07/16/16 07:44 Iron 97 ug/dL (37-170) 07/16/16 07:44 TIBC 240 ug/dL (265-497) L 07/16/16 07:44 % Saturation 40.4 % (20-50) 07/16/16 07:44 Ferritin 108 ng/mL (11-264) 07/16/16 07:44 Total Bilirubin 0.3 mg/dL (0.2-1.3) 07/22/16 08:16 AST 22 U/L (14-36) 07/22/16 08:16 ALT 48 U/L (9-52) 07/22/16 08:16 Alkaline Phosphatase 42 U/L (38-126) 07/22/16 08:16 NT-Pro-B Natriuret Pep 72493 pg/mL 07/13/16 15:10 Total Protein 5.2 g/dL (6.3-8.2) L 07/22/16 08:16 Albumin 2.6 g/dL (3.5-5.0) L 07/22/16 08:16 Urine Color Yellow 07/13/16 15:10 Urine Appearance Turbid (Clear) H 07/13/16 15:10 Urine pH 5.5 (5.0-8.0) 07/13/16 15:10 Ur Specific Caroline 1.014 (1.001-1.035) 07/13/16 15:10 Urine Protein 2+ (Negative) H 07/13/16 15:10 Urine Glucose (UA) Negative (Negative) 07/13/16 15:10 Urine Ketones Negative (Negative) 07/13/16 15:10 Urine Blood Large (Negative) H 07/13/16 15:10 Urine Nitrite Negative (Negative) 07/13/16 15:10 Urine Bilirubin Negative (Negative) 07/13/16 15:10 Urine Urobilinogen <2.0 mg/dL (<2.0) 07/13/16 15:10 Ur Leukocyte Esterase Large (Negative) H 07/13/16 15:10 Urine RBC 80 /hpf (0-5) H 07/13/16 15:10 Urine WBC >182 /hpf (0-5) H 07/13/16 15:10 Urine WBC Clumps Few /hpf (None) H 07/13/16 15:10 Ur Squamous Epith Cells 4 /hpf (0-4) 07/13/16 15:10 Urine Bacteria Many /hpf (None) H 07/13/16 15:10 Urine Yeast (Budding) Many /hpf (None) H 07/13/16 15:10 Stool Occult Blood Negative (Negative) 07/16/16 19:00 Vancomycin Trough 22.6 ug/mL 07/20/16 19:21 Virus Source See Below 07/16/16 09:30 Viral Test See Below 07/16/16 09:30 Virus Analysis Interp See Below 07/16/16 09:30 Miscellaneous Test Pneumocytis DFA 07/16/16 09:30 Misc Test Result See comment 07/16/16 09:30 Blood Type A Positive 07/16/16 15:20 Blood Type Recheck No 07/16/16 15:20 Antibody Screen NEGATIVE 07/16/16 15:20 Crossmatch See Detail 07/16/16 15:20 Spec Expiration Date 07/19/2016231907/16/16 15:20 Microbiology 07/17/16 11:50 Sputum Gram Stain - Final 07/17/16 11:50 Sputum Sputum Culture - Final Methicillin resist S. aureus Alicja albicans 07/16/16 09:30 Bronchial Washings - Left Fungal Culture - Preliminary Alicja albicans 07/16/16 09:30 Bronchial Washings - Left Gram Stain - Final 07/16/16 09:30 Bronchial Washings - Left Bronchial Washings Culture - Final Methicillin resist S. aureus Alicja albicans 07/16/16 09:30 Bronchial Washings - Left Acid Fast Bacilli Smear - Final 07/16/16 09:30 Bronchial Washings - Left Acid Fast Bacilli Culture - Preliminary 07/13/16 15:10 Blood Blood Culture - Final 07/13/16 15:10 Blood Blood Culture Gram Stain - Final 07/13/16 15:10 Blood Blood Culture - Final Staphylococcus epidermidis 07/13/16 15:10 Urine,Voided Urine Culture - Final Enterobacter cloacae Pseudomonas aeruginosa Assessment and Plan (1) Sepsis Narrative/Plan: 76-year-old woman presents hospital feeling very poorly. Having increasing shortness of breath cough sputum production without hemoptysis. Generalized malaise. Fevers of also occurred. On evidence of extensive leukocytosis. There is evidence of 1 blood culture with coag was negative staph. Other blood cultures are negative. Urine culture is positive with evidence of Enterobacter and Pseudomonas fortunately both susceptible to Levaquin. Prior cultures did show evidence of the bronchoscopy with MRSA. Again seen with the most recent bronchoscopy. Consequently antibiotic therapy with vancomycin and levofloxacin will be utilized. She is anticoagulant with Coumadin and this must be watched closely because of utilization of Levaquin. Cultures in process now. Bronchoscopy cultures have shown evidence of ongoing MRSA. Continue supportive care with oxygen, respiratory treatments and CPAP as needed. the alicja does not require therapy. Prognosis is poor, patient depressed with the loss of her . Status: Acute (2) Pneumonia Status: Acute (3) Leukocytosis Status: Acute (4) Peripheral arterial occlusive disease Status: Chronic (5) Diabetes mellitus type 2, uncontrolled, with complications Status: Acute
[2016-07-24 01:12] LABS: Glucose,Whole Blood 145 mg/dL (75-99)
[2016-07-24 02:36] LABS: Glucose,Whole Blood 128 mg/dL (75-99)
[2016-07-24 03:36] LABS: Glucose,Whole Blood 192 mg/dL (75-99)
[2016-07-24 06:14] LABS: Glucose,Whole Blood 214 mg/dL (75-99)
[2016-07-24] MEDS: HYDROcodone/APAP 10-325MG 1 EACH TAB PO PRN (06:35)
[2016-07-24 07:54] LABS: Glucose,Whole Blood 222 mg/dL (75-99)
[2016-07-24] MEDS: FLUCONAZOLE ORAL SUSP 1,400 MG/35 ML BOTTLE PO SCH (07:58)
[2016-07-24] MEDS: INSULIN LISPRO (humaLOG) 300 UNIT/3 ML VIAL SQ SCH ×3 (08:01→19:24)
[2016-07-24] MEDS: ALPRAZolam 0.25 MG TAB PO SCH ×2 (08:02→20:40)
[2016-07-24] MEDS: METOPROLOL SUCCINATE (ER) 100 MG TAB.ER.24H PO SCH ×2 (08:02→20:42)
[2016-07-24] MEDS: FUROSEMIDE 40 MG TAB PO SCH ×2 (08:02→16:06)
[2016-07-24] MEDS: DOCUSATE 100 MG CAP PO SCH ×2 (08:02→20:41)
[2016-07-24] MEDS: methylPREDNISolone SOD SUCCI 40 MG/ML 1 ML VIAL IV SCH (08:02)
[2016-07-24] MEDS: PANTOPRAZOLE 40 MG TABLET PO SCH (08:02)
[2016-07-24] MEDS: DIGOXIN 125 MCG TAB PO SCH (08:02)
[2016-07-24] MEDS: FERROUS SULFATE 325 MG TAB PO SCH ×2 (08:02→20:41)
[2016-07-24] MEDS: guaiFENesin 600 MG TABLET.ER PO SCH ×2 (08:02→21:44)
[2016-07-24] MEDS: NYSTATIN 100,000 UNIT/ML SUSP 500,000 UNIT/5 ML CUP PO SCH ×4 (08:03→20:42)
[2016-07-24 08:19] LABS: Anisocytosis Slight; Basophils % (A) 0 %; CH 28.5; CHCM 29.1; Eosinophils % (A) 0 %; HCT 26.2 % (34.0-46.0); HDW 3.02; HGB 7.8 gm/dL (11.4-16.0); Hypochromasia Marked; Luc % (Auto) 1; Lymphocytes # (A) 0.4 k/uL (1.0-4.8); Lymphocytes % (A) 2 %; MCH 29.3 pg (25.0-35.0); MCHC 29.8 g/dL (31.0-37.0); MCV 98.3 fL (80.0-100.0); Macrocytosis Slight; Mean Platelet Volume 8.1; Monocytes # (A) 0.6 k/uL (0-1.0); Monocytes % (A) 4 %; Neutrophils % (A) 94 %; RBC 2.67 m/uL (3.80-5.40); RDW 18.5 % (11.5-15.5); WBC 18.1 k/uL (3.8-10.6)
[2016-07-24 08:26] LABS: INR 2.8 (<1.1); Prothrombin Time 26.9 sec (9.0-12.0)
[2016-07-24 08:36] LABS: Calcium 8.2 mg/dL (8.4-10.2); Total Bilirubin 0.3 mg/dL (0.2-1.3); Total Protein 5.1 g/dL (6.3-8.2)
[2016-07-24] MEDS: BUDESONIDE 1 MG/2 ML NEBU INHALATION SCH ×2 (09:00→20:03)
[2016-07-24] MEDS: IPRATROPIUM-ALBUTEROL 3 ML NEB INHALATION SCH ×4 (09:00→20:05)
--- NOTE | 2016-07-24 09:31 | P.PN ---
Subjective 76-year-old female being seen on rounds this morning. Patient's chief complaint this morning is a very painful left foot increased swelling. Patient states she felt like she kept hitting on the side rail and the bed last night patient states the left foot woke her up in the middle of the night with the pain patient states "was not painful the day before currently is sitting up in bed taking a diet does not appear in any acute distress . Currently patients being followed by pulmonology and infectious disease. Patient has recently been hospitalized multiple times over the last several months being treated for pneumonia, COPD exacerbation, significant bronchiectasis , GI bleed in the left ischemic leg status post thrombectomy. Patient recently was admitted to [facility] in [place] after the discharge from the previous hospitalization. Patient is status post bronchoscopy Done on July 16 Objective - Vital Signs Vital signs: Vital Signs Temp 97.2 F L 07/24/16 07:00 Pulse 72 07/24/16 09:00 Resp 22 07/24/16 07:00 BP 134/62 07/24/16 07:00 Pulse Ox 98 07/24/16 07:00 Intake & Output 07/23/16 07/24/16 07/24/16 18:59 06:59 18:59 Intake Total 1104.467 341.392 206.167 Balance 1104.467 341.392 206.167 Weight 108 kg 104 kg Intake: Intake, IV Titration 64.467 41.392 6.167 Amount Insulin Regular 100 unit 64.467 41.392 6.167 In Sodium Chloride 0.9% 100 ml @ Titrate IV .Q0M [facility] Rx#:[id number] Oral 1040 300 200 Other: Voiding Method Bedpan # Voids 3 3 - Exam Physical exam 76-year-old female sitting up in bed taking a diet chief complaint is left foot painful" Lungs diminished at the bases otherwise adequate air movement did wear the BiPAP last night currently has 4 L nasal cannula in place Heart S1-S2 audible regular denying chest pain Abdomen soft nontender not distended states urinating no difficulty no stool Extremities the left foot nonpitting edema noted warm to touch adequate sensation states is tender - Labs CBC & Chem 7: 07/24/16 07:46 07/24/16 07:46 Labs: Abnormal Lab Results - Last 24 Hours (Table) 07/23/16 07/23/16 07/23/16 Range/Units 08:50 10:04 11:59 WBC (3.8-10.6) k/uL RBC (3.80-5.40) m/uL Hgb (11.4-16.0) gm/dL Hct (34.0-46.0) % MCHC (31.0-37.0) g/dL RDW (11.5-15.5) % Neutrophils # (1.3-7.7) k/uL Lymphocytes # (1.0-4.8) k/uL PT (9.0-12.0) sec Chloride 108 H (98-107) mmol/L BUN 63 H (7-17) mg/dL Creatinine 1.13 H (0.52-1.04) mg/dL Glucose 212 H (74-99) mg/dL POC Glucose (mg/dL) 242 H 239 H (75-99) mg/dL Calcium 8.2 L (8.4-10.2) mg/dL Total Protein (6.3-8.2) g/dL Albumin (3.5-5.0) g/dL 07/23/16 07/23/16 07/23/16 Range/Units 14:24 16:00 17:46 WBC (3.8-10.6) k/uL RBC (3.80-5.40) m/uL Hgb (11.4-16.0) gm/dL Hct (34.0-46.0) % MCHC (31.0-37.0) g/dL RDW (11.5-15.5) % Neutrophils # (1.3-7.7) k/uL Lymphocytes # (1.0-4.8) k/uL PT (9.0-12.0) sec Chloride (98-107) mmol/L BUN (7-17) mg/dL Creatinine (0.52-1.04) mg/dL Glucose (74-99) mg/dL POC Glucose (mg/dL) 194 H 155 H 154 H (75-99) mg/dL Calcium (8.4-10.2) mg/dL Total Protein (6.3-8.2) g/dL Albumin (3.5-5.0) g/dL 07/23/16 07/23/16 07/24/16 Range/Units 20:07 22:09 00:56 WBC (3.8-10.6) k/uL RBC (3.80-5.40) m/uL Hgb (11.4-16.0) gm/dL Hct (34.0-46.0) % MCHC (31.0-37.0) g/dL RDW (11.5-15.5) % Neutrophils # (1.3-7.7) k/uL Lymphocytes # (1.0-4.8) k/uL PT (9.0-12.0) sec Chloride (98-107) mmol/L BUN (7-17) mg/dL Creatinine (0.52-1.04) mg/dL Glucose (74-99) mg/dL POC Glucose (mg/dL) 195 H 194 H 145 H (75-99) mg/dL Calcium (8.4-10.2) mg/dL Total Protein (6.3-8.2) g/dL Albumin (3.5-5.0) g/dL 07/24/16 07/24/16 07/24/16 Range/Units 02:30 03:32 06:09 WBC (3.8-10.6) k/uL RBC (3.80-5.40) m/uL Hgb (11.4-16.0) gm/dL Hct (34.0-46.0) % MCHC (31.0-37.0) g/dL RDW (11.5-15.5) % Neutrophils # (1.3-7.7) k/uL Lymphocytes # (1.0-4.8) k/uL PT (9.0-12.0) sec Chloride (98-107) mmol/L BUN (7-17) mg/dL Creatinine (0.52-1.04) mg/dL Glucose (74-99) mg/dL POC Glucose (mg/dL) 128 H 192 H 214 H (75-99) mg/dL Calcium (8.4-10.2) mg/dL Total Protein (6.3-8.2) g/dL Albumin (3.5-5.0) g/dL 07/24/16 07/24/16 07/24/16 Range/Units 07:31 07:46 07:46 WBC 18.1 H (3.8-10.6) k/uL RBC 2.67 L (3.80-5.40) m/uL Hgb 7.8 L (11.4-16.0) gm/dL Hct 26.2 L (34.0-46.0) % MCHC 29.8 L (31.0-37.0) g/dL RDW 18.5 H (11.5-15.5) % Neutrophils # 17.0 H (1.3-7.7) k/uL Lymphocytes # 0.4 L (1.0-4.8) k/uL PT 26.9 H (9.0-12.0) sec Chloride (98-107) mmol/L BUN (7-17) mg/dL Creatinine (0.52-1.04) mg/dL Glucose (74-99) mg/dL POC Glucose (mg/dL) 222 H (75-99) mg/dL Calcium (8.4-10.2) mg/dL Total Protein (6.3-8.2) g/dL Albumin (3.5-5.0) g/dL 07/24/16 Range/Units 07:46 WBC (3.8-10.6) k/uL RBC (3.80-5.40) m/uL Hgb (11.4-16.0) gm/dL Hct (34.0-46.0) % MCHC (31.0-37.0) g/dL RDW (11.5-15.5) % Neutrophils # (1.3-7.7) k/uL Lymphocytes # (1.0-4.8) k/uL PT (9.0-12.0) sec Chloride (98-107) mmol/L BUN 64 H (7-17) mg/dL Creatinine 1.10 H (0.52-1.04) mg/dL Glucose 192 H (74-99) mg/dL POC Glucose (mg/dL) (75-99) mg/dL Calcium 8.2 L (8.4-10.2) mg/dL Total Protein 5.1 L (6.3-8.2) g/dL Albumin 2.6 L (3.5-5.0) g/dL Assessment and Plan Plan: Assessment and Plan #1 bacterial pneumonia with sepsis present on admission: Known history of sputum positive culture for MRSA Continue with current IV antibiotics Followed by pulmonary service and infectious disease. #2 acute systolic congestive heart failure exacerbation: Elevated BNP level on admission. Patient receiving oral Lasix. #3 urinary tract infection : Urine culture Enterobacter cloacae and pseudomonas aeruginosa. Continue current antibiotics. #4 left groin surgical wound infection with known history of seroma. Evaluated by Dr. García. Continue current wound care #5 chronic atrial fibrillation. Continue with Coumadin therapy #6 recent left lower extremity arterial occlusion requiring surgical intervention by vascular surgery Dr. García #7 diabetes mellitus type 2 on insulin drip secondary to steroids #8 severe protein calorie malnutrition: Start protein supplement poor nutritional status was decreased albumin 2.6 will have a nutrition consult #9 iron deficiency anemia : With history of GI bleed and unable to proceed with colonoscopy due to multiple complications had EGD at [facility] a few months ago that was unremarkable. Check iron studies. Check stool for occult blood. Hemoglobin has dropped to 7.6. #10 acute exacerbation of chronic obstructive pulmonary disease continue steroids and bronchodilators #11 acute kidney injury: Creatinine is up to 1.64. Lasix held yesterday evening. Continue to monitor #12 bacteremia with one blood culture positive coagulase negative staph. Continue recommendations per Dr. Wild for IV antibiotic management on Levaquin and vancomycin started on IV Solu-Medrol for COPD exacerbation, pulmonary's recommendations Will recheck labs in a.m. Will follow closely New onset swelling left foot painful unclear etiology Prognosis is guarded due to multiple medical problems The above dictated assessment and findings were discussed with dr yuri Cramer and the plan of care have been dictated as directed. Muriel Goodman nurse practitioner acting as a scribe for dr welch
[2016-07-24 09:45] LABS: Glucose,Whole Blood 225 mg/dL (75-99)
--- NOTE | 2016-07-24 11:58 | XR ---
EXAMINATION TYPE: XR foot complete LT DATE OF EXAM: 07/24/2016 CLINICAL HISTORY: pain TECHNIQUE: Frontal, lateral and oblique images of the left foot are obtained. COMPARISON: None. FINDINGS: There is no acute fracture/dislocation evident. The joint spaces appear within normal kovacs its. Mild soft tissue swelling and vascular calcifications noted. No bony destructive process to sugg est osteomyelitis. IMPRESSION: There is no acute fracture or dislocation. ICD 10 NO FRACTURE, INITIAL EVALUATION
[2016-07-24] MEDS: methylPREDNISolone SOD SUCCI 125 MG/2 ML VIAL IV SCH ×2 (11:59→17:29)
[2016-07-24 12:20] LABS: Glucose,Whole Blood 178 mg/dL (75-99)
[2016-07-24] MEDS: INSULIN REGULAR 100 UNIT in SODIUM CHLORIDE 0.9% 100 ML IV SCH (12:22)
[2016-07-24 14:18] LABS: Glucose,Whole Blood 155 mg/dL (75-99)
--- NOTE | 2016-07-24 16:15 | PN ---
DATE OF SERVICE: 07/24/2016. She continues to have shortness of breath, and is coughing, not bringing up much phlegm. Her last temperature which was elevated was on 07/13/2016. She denies any chest pain. She continues to wear BiPAP while asleep and is on nasal cannula oxygen at 4 liters at this time. On physical examination, her blood pressure is 134/62, respiratory rate 22, pulse rate of 75, temperature 97.2. O2 sat on 4 liters by nasal cannula is 98%. HEENT is unremarkable. Chest reveals decreased breath sounds with prolonged expiration, bilateral expiratory wheeze. Cardiovascular system reveals S1 and S2. No S3, no S4, no murmurs. ABDOMEN: Soft. There is trace to 1+ pedal edema. Chest x-ray shows bilateral lower lobe atelectatic changes with tiny effusions and possible infiltrate. White count is 18,000, hemoglobin 7.8. PT, INR of 2.8, sodium 138, potassium 5, chloride 107, bicarb 24, BUN 64, creatinine of 1.1. Microbiological cultures from her blood have shown epidermidis from the from sputum and bronchial washings, from the the patient is showing Gabriela albicans from the sputum. The patient is showing Gabriela albicans as well MRSA. IMPRESSION: 1. Acute on chronic respiratory failure. 2. Tracheobronchitis versus pneumonia. 3. MRSA in the sputum, colonization versus pathogen. 4. Significant bronchospasm. 5. Diabetes mellitus. 6. Obesity with possible JILLIAN. 7. Recent left lower extremity arterial occlusion. At this point in time, continue Coumadin for her atrial fibrillation. Increase her activity level. Increase IV steroids and hopefully switch her to oral prednisone at least 60 mg with a slow taper. Continue antibiotics per ID. increase her activity level if able to. Her prognosis at this time is guarded.
[2016-07-24 16:24] LABS: Glucose,Whole Blood 146 mg/dL (75-99)
[2016-07-24 17:41] LABS: Glucose,Whole Blood 149 mg/dL (75-99)
[2016-07-24 20:05] LABS: Glucose,Whole Blood 221 mg/dL (75-99)
[2016-07-24] MEDS: POLYETHYLENE GLYCOL 3350 17 GM POWD.PACK PO SCH (20:39)
[2016-07-24] MEDS: PRAVASTATIN SODIUM 20 MG TAB PO SCH (20:42)
[2016-07-24] MEDS: LOSARTAN 50 MG TAB PO SCH (20:42)
[2016-07-24] MEDS: MONTELUKAST 10 MG TAB PO SCH (20:43)
[2016-07-24 22:00] LABS: Glucose,Whole Blood 202 mg/dL (75-99)
[2016-07-24 23:57] LABS: Glucose,Whole Blood 176 mg/dL (75-99)
[2016-07-25] MEDS: methylPREDNISolone SOD SUCCI 125 MG/2 ML VIAL IV SCH ×4 (00:24→17:29)
[2016-07-25 01:59] LABS: Glucose,Whole Blood 244 mg/dL (75-99)
[2016-07-25 04:16] LABS: Glucose,Whole Blood 182 mg/dL (75-99)
[2016-07-25 05:57] LABS: Glucose,Whole Blood 173 mg/dL (75-99)
[2016-07-25 06:29] LABS: Anisocytosis Slight; Basophils % (A) 0 %; CH 29.1; Eosinophils % (A) 0 %; HCT 25.1 % (34.0-46.0); HDW 3.01; HGB 7.5 gm/dL (11.4-16.0); Hypochromasia Marked; Luc # (Auto) 0.05; Luc % (Auto) 0; Lymphocytes # (A) 0.3 k/uL (1.0-4.8); Lymphocytes % (A) 2 %; MCHC 29.8 g/dL (31.0-37.0); MCV 97.4 fL (80.0-100.0); Macrocytosis Slight; Mean Platelet Volume 7.9; Monocytes # (A) 0.5 k/uL (0-1.0); Monocytes % (A) 3 %; Neutrophils # (A) 17.8 k/uL (1.3-7.7); Neutrophils % (A) 95 %; RBC 2.58 m/uL (3.80-5.40); RDW 18.6 % (11.5-15.5); WBC 18.7 k/uL (3.8-10.6); WBC (Perox) 18.73
[2016-07-25 06:34] LABS: INR 3.2 (<1.1); Prothrombin Time 31.5 sec (9.0-12.0)
[2016-07-25 07:56] LABS: Glucose,Whole Blood 203 mg/dL (75-99)
[2016-07-25] MEDS: VANCOMYCIN 2,000 MG in SODIUM CHLORIDE 0.9% 500 ML IVPB SCH (07:57)
[2016-07-25] MEDS: NYSTATIN 100,000 UNIT/ML SUSP 500,000 UNIT/5 ML CUP PO SCH ×4 (07:57→21:02)
[2016-07-25] MEDS: INSULIN LISPRO (humaLOG) 300 UNIT/3 ML VIAL SQ SCH ×3 (07:58→17:51)
[2016-07-25] MEDS: FLUCONAZOLE ORAL SUSP 1,400 MG/35 ML BOTTLE PO SCH (07:58)
[2016-07-25] MEDS: ALPRAZolam 0.25 MG TAB PO SCH ×2 (07:58→21:00)
[2016-07-25] MEDS: PANTOPRAZOLE 40 MG TABLET PO SCH (07:58)
[2016-07-25] MEDS: DIGOXIN 125 MCG TAB PO SCH (07:59)
[2016-07-25] MEDS: METOPROLOL SUCCINATE (ER) 100 MG TAB.ER.24H PO SCH ×2 (07:59→21:02)
[2016-07-25] MEDS: guaiFENesin 600 MG TABLET.ER PO SCH ×2 (07:59→21:01)
[2016-07-25] MEDS: FUROSEMIDE 40 MG TAB PO SCH ×2 (07:59→15:38)
[2016-07-25] MEDS: DOCUSATE 100 MG CAP PO SCH ×2 (07:59→21:01)
[2016-07-25] MEDS: FERROUS SULFATE 325 MG TAB PO SCH ×2 (07:59→21:01)
[2016-07-25] MEDS ORDERED: VANCOMYCIN TROUGH DUE 1 EACH MISC MISCELLANE ONE (08:00)
[2016-07-25] MEDS: BUDESONIDE 1 MG/2 ML NEBU INHALATION SCH ×2 (08:26→19:52)
[2016-07-25] MEDS: IPRATROPIUM-ALBUTEROL 3 ML NEB INHALATION SCH ×4 (08:26→19:52)
[2016-07-25] MEDS: INSULIN REGULAR 100 UNIT in SODIUM CHLORIDE 0.9% 100 ML IV SCH (09:15)
--- NOTE | 2016-07-25 09:34 | P.PN ---
Subjective A 76-year-old female sitting up in bed taking a diet this morning. Patient reports is less pain in the left foot this morning. Patient this morning is significantly more awake and alert oriented times to. Patient states when she is to be discharged plans on going to [facility] in [place] for rehab. Did discuss with the patient CODE STATUS patient indicates she wishes to be a full code including vent support does state "if I can not get off the vent after 5-7 days that I don't want vent support Currently patients being followed by pulmonology and infectious disease. Patient has recently been hospitalized multiple times over the last several months being treated for pneumonia, COPD exacerbation, significant bronchiectasis , GI bleed in the left ischemic leg status post thrombectomy. Patient recently was admitted to [facility] in [place] after the discharge from the previous hospitalization. Patient is status post bronchoscopy Done on July 16 The INR this morning is 3.2. The INR the day before was 2.8. Labs were reviewed white count 18.7 the hemoglobin 7.5 blood sugar 203 173 182 Objective - Vital Signs Vital signs: Vital Signs Temp 96.7 F L 07/25/16 07:00 Pulse 84 07/25/16 08:46 Resp 20 07/25/16 07:00 BP 164/64 07/25/16 07:00 Pulse Ox 98 07/25/16 07:00 Intake & Output 07/24/16 07/25/16 07/25/16 18:59 06:59 18:59 Intake Total 723.416 349.133 12.583 Balance 723.416 349.133 12.583 Intake: IV 160 Normal Saline at 20ml/hr 160 Intake, IV Titration 43.416 49.133 12.583 Amount Insulin Regular 100 unit 43.416 49.133 12.583 In Sodium Chloride 0.9% 100 ml @ Titrate IV .Q0M [facility] Rx#:[id number] Oral 520 300 Other: Voiding Method Bedpan # Voids 3 1 - Exam Physical exam 76-year-old female sitting up in bed taking a diet awake and alert oriented times 2 Lungs bilateral expiratory wheezing noted dry cough noted nasal cannula 4 L sats are 95% Heart S1-S2 audible regular Abdomen soft nontender reports no nausea vomiting no difficulty in urinating no frequent stooling Extremities decrease edema to the left foot noted left foot warm to touch adequate sensation pink color no duskiness noted the right extremity unremarkable - Labs CBC & Chem 7: 07/25/16 06:10 07/24/16 07:46 Labs: Abnormal Lab Results - Last 24 Hours (Table) 07/24/16 07/24/16 07/24/16 Range/Units 09:41 12:09 14:08 WBC (3.8-10.6) k/uL RBC (3.80-5.40) m/uL Hgb (11.4-16.0) gm/dL Hct (34.0-46.0) % MCHC (31.0-37.0) g/dL RDW (11.5-15.5) % Neutrophils # (1.3-7.7) k/uL Lymphocytes # (1.0-4.8) k/uL PT (9.0-12.0) sec POC Glucose (mg/dL) 225 H 178 H 155 H (75-99) mg/dL 07/24/16 07/24/16 07/24/16 Range/Units 16:03 17:14 20:01 WBC (3.8-10.6) k/uL RBC (3.80-5.40) m/uL Hgb (11.4-16.0) gm/dL Hct (34.0-46.0) % MCHC (31.0-37.0) g/dL RDW (11.5-15.5) % Neutrophils # (1.3-7.7) k/uL Lymphocytes # (1.0-4.8) k/uL PT (9.0-12.0) sec POC Glucose (mg/dL) 146 H 149 H 221 H (75-99) mg/dL 07/24/16 07/24/16 07/25/16 Range/Units 21:57 23:53 01:54 WBC (3.8-10.6) k/uL RBC (3.80-5.40) m/uL Hgb (11.4-16.0) gm/dL Hct (34.0-46.0) % MCHC (31.0-37.0) g/dL RDW (11.5-15.5) % Neutrophils # (1.3-7.7) k/uL Lymphocytes # (1.0-4.8) k/uL PT (9.0-12.0) sec POC Glucose (mg/dL) 202 H 176 H 244 H (75-99) mg/dL 07/25/16 07/25/16 07/25/16 Range/Units 04:10 05:54 06:10 WBC 18.7 H (3.8-10.6) k/uL RBC 2.58 L (3.80-5.40) m/uL Hgb 7.5 L (11.4-16.0) gm/dL Hct 25.1 L (34.0-46.0) % MCHC 29.8 L (31.0-37.0) g/dL RDW 18.6 H (11.5-15.5) % Neutrophils # 17.8 H (1.3-7.7) k/uL Lymphocytes # 0.3 L (1.0-4.8) k/uL PT (9.0-12.0) sec POC Glucose (mg/dL) 182 H 173 H (75-99) mg/dL 07/25/16 07/25/16 Range/Units 06:10 07:51 WBC (3.8-10.6) k/uL RBC (3.80-5.40) m/uL Hgb (11.4-16.0) gm/dL Hct (34.0-46.0) % MCHC (31.0-37.0) g/dL RDW (11.5-15.5) % Neutrophils # (1.3-7.7) k/uL Lymphocytes # (1.0-4.8) k/uL PT 31.5 H (9.0-12.0) sec POC Glucose (mg/dL) 203 H (75-99) mg/dL Assessment and Plan Plan: Assessment and Plan #1 bacterial pneumonia with sepsis present on admission: Known history of sputum positive culture for MRSA Continue with current IV antibiotics Followed by pulmonary service and infectious disease. #2 acute systolic congestive heart failure exacerbation: Elevated BNP level on admission. Patient receiving oral Lasix. #3 urinary tract infection : Urine culture Enterobacter cloacae and pseudomonas aeruginosa. Continue current antibiotics. #4 left groin surgical wound infection with known history of seroma. Evaluated by Dr. García. Continue current wound care #5 chronic atrial fibrillation. Coumadin therapy per INR currently on hold INR 3.2 #6 recent left lower extremity arterial occlusion requiring surgical intervention by vascular surgery Dr. García #7 diabetes mellitus type 2 on insulin drip secondary to steroids #8 severe protein calorie malnutrition: Start protein supplement poor nutritional status was decreased albumin 2.6 will have a nutrition consult #9 iron deficiency anemia : With history of GI bleed and unable to proceed with colonoscopy due to multiple complications had EGD at [facility] a few months ago that was unremarkable. Check iron studies. Check stool for occult blood. Hemoglobin has dropped to 7.6. #10 acute exacerbation of chronic obstructive pulmonary disease continue steroids and bronchodilators #11 acute kidney injury: Creatinine is up to 1.64. Lasix held yesterday evening. Continue to monitor #12 bacteremia with one blood culture positive coagulase negative staph. Obesity suspect obstructive sleep apnea use of BiPAP while asleep Continue recommendations per Dr. Wild for IV antibiotic management on Levaquin and vancomycin started on IV Solu-Medrol for COPD exacerbation, pulmonary's recommendations Will recheck labs in a.m. Will follow closely New onset July 24 swelling left foot painful x-ray left foot no acute fracture or dislocation unclear etiology Prognosis is guarded due to multiple medical problems The above dictated assessment and findings were discussed with dr yuri Cramer and the plan of care have been dictated as directed. Muriel Goodman nurse practitioner acting as a scribe for dr welch
[2016-07-25 10:36] LABS: Glucose,Whole Blood 234 mg/dL (75-99)
[2016-07-25] MEDS: HYDROcodone/APAP 10-325MG 1 EACH TAB PO PRN ×2 (12:14→21:00)
[2016-07-25 12:21] LABS: Glucose,Whole Blood 238 mg/dL (75-99)
[2016-07-25 14:10] LABS: Glucose,Whole Blood 226 mg/dL (75-99)
[2016-07-25 15:58] LABS: Glucose,Whole Blood 179 mg/dL (75-99)
[2016-07-25] MEDS: LEVOFLOXACIN 750 MG TAB PO SCH (17:29)
[2016-07-25 17:44] LABS: Glucose,Whole Blood 153 mg/dL (75-99)
--- NOTE | 2016-07-25 19:15 | PN ---
DATE OF SERVICE: 07/25/2016. She was seen on 07/25/2016. She has improved slightly compared to yesterday. On physical examination, respiratory rate is 20, pulse rate is 78, temperature 96.7, blood pressure 164/64, O2 sat on 4 liters by nasal cannula is 98%. HEENT is unremarkable. Chest reveals wheeze on forced expiration. Cardiovascular system reveals an S1, S2 with abdomen is soft. There is no pedal edema. IMPRESSION: 1. Acute on chronic respiratory failure. 2. Bronchospasm secondary to asthma with acute exacerbation. 3. Tracheobronchitis versus pneumonia. 4. Methicillin-resistant Staph aureus in the sputum. 5. Obesity with possible obstructive sleep apnea. 6. Diabetes mellitus. At this point in time, continue high-dose IV steroids. Increase her activity level. Depending on how she does, we shall make further changes to her care.
[2016-07-25 20:03] LABS: Glucose,Whole Blood 136 mg/dL (75-99)
[2016-07-25] MEDS: POLYETHYLENE GLYCOL 3350 17 GM POWD.PACK PO SCH (21:00)
[2016-07-25] MEDS: LOSARTAN 50 MG TAB PO SCH (21:01)
[2016-07-25] MEDS: PRAVASTATIN SODIUM 20 MG TAB PO SCH (21:02)
[2016-07-25] MEDS: MONTELUKAST 10 MG TAB PO SCH (21:02)
[2016-07-25 21:58] LABS: Glucose,Whole Blood 180 mg/dL (75-99)
[2016-07-26] MEDS: methylPREDNISolone SOD SUCCI 125 MG/2 ML VIAL IV SCH ×2 (00:09→05:31)
[2016-07-26 00:12] LABS: Glucose,Whole Blood 216 mg/dL (75-99)
[2016-07-26 02:33] LABS: Glucose,Whole Blood 225 mg/dL (75-99)
[2016-07-26 04:35] LABS: Glucose,Whole Blood 255 mg/dL (75-99)
[2016-07-26] MEDS: INSULIN REGULAR 100 UNIT in SODIUM CHLORIDE 0.9% 100 ML IV SCH (06:01)
[2016-07-26 06:12] LABS: Glucose,Whole Blood 246 mg/dL (75-99)
[2016-07-26 06:53] LABS: Anisocytosis Slight; Basophils % (A) 0 %; CH 28.8; CHCM 29.5; Eosinophils % (A) 0 %; HCT 24.6 % (34.0-46.0); HDW 2.95; HGB 7.7 gm/dL (11.4-16.0); Hypochromasia Marked; Luc # (Auto) 0.05; Luc % (Auto) 0; Lymphocytes # (A) 0.3 k/uL (1.0-4.8); Lymphocytes % (A) 2 %; MCH 30.4 pg (25.0-35.0); MCHC 31.1 g/dL (31.0-37.0); MCV 97.7 fL (80.0-100.0); Macrocytosis Slight; Mean Platelet Volume 7.9; Monocytes # (A) 0.5 k/uL (0-1.0); Monocytes % (A) 3 %; Neutrophils % (A) 95 %; RBC 2.52 m/uL (3.80-5.40); RDW 18.6 % (11.5-15.5); WBC 18.8 k/uL (3.8-10.6); WBC (Perox) 19.46
[2016-07-26 07:02] LABS: INR 2.7 (<1.1); Prothrombin Time 26.5 sec (9.0-12.0)
[2016-07-26 07:16] LABS: Calcium 8.3 mg/dL (8.4-10.2); Potassium 4.7 mmol/L (3.5-5.1); Total Bilirubin 0.3 mg/dL (0.2-1.3); Total Protein 5.1 g/dL (6.3-8.2)
[2016-07-26 08:21] LABS: Glucose,Whole Blood 218 mg/dL (75-99)
[2016-07-26] MEDS: INSULIN LISPRO (humaLOG) 300 UNIT/3 ML VIAL SQ SCH ×3 (08:42→18:11)
[2016-07-26] MEDS: guaiFENesin 600 MG TABLET.ER PO SCH ×2 (08:44→22:11)
[2016-07-26] MEDS: FERROUS SULFATE 325 MG TAB PO SCH ×2 (08:44→22:11)
[2016-07-26] MEDS: FUROSEMIDE 40 MG TAB PO SCH ×2 (08:44→17:27)
[2016-07-26] MEDS: PANTOPRAZOLE 40 MG TABLET PO SCH (08:44)
[2016-07-26] MEDS: DOCUSATE 100 MG CAP PO SCH ×2 (08:44→22:11)
[2016-07-26] MEDS: METOPROLOL SUCCINATE (ER) 100 MG TAB.ER.24H PO SCH ×2 (08:45→22:12)
[2016-07-26] MEDS: FLUCONAZOLE ORAL SUSP 1,400 MG/35 ML BOTTLE PO SCH (08:45)
[2016-07-26] MEDS: NYSTATIN 100,000 UNIT/ML SUSP 500,000 UNIT/5 ML CUP PO SCH ×4 (08:46→22:13)
[2016-07-26] MEDS: DIGOXIN 125 MCG TAB PO SCH (08:46)
[2016-07-26] MEDS: ALPRAZolam 0.25 MG TAB PO SCH ×2 (08:49→22:10)
[2016-07-26] MEDS: IPRATROPIUM-ALBUTEROL 3 ML NEB INHALATION SCH ×4 (09:11→20:04)
[2016-07-26] MEDS: BUDESONIDE 1 MG/2 ML NEBU INHALATION SCH ×2 (09:11→20:04)
[2016-07-26 10:05] LABS: Glucose,Whole Blood 252 mg/dL (75-99)
[2016-07-26] MEDS: HYDROcodone/APAP 10-325MG 1 EACH TAB PO PRN ×3 (11:28→22:10)
[2016-07-26 12:06] LABS: Glucose,Whole Blood 240 mg/dL (75-99)
--- NOTE | 2016-07-26 12:48 | P.PN ---
Subjective Patient presented to the hospital with worsening shortness of breath with productive cough and weakness. She is being treated for pneumonia and COPD exacerbation. Patient underwent bronchoscopy during this admission. Bronchial wash showing MRSA with yeast and fungal hyphae. Diflucan and nystatin swish and swallow were added. She's also on IV vancomycin for the MRSA.. Patient still reports some pain in that left leg. She reports some improvement in her breathing. Still having some upper airway congestion. She's been working with her flutter valve. Pulmonary service has decreased the Solu- Medrol to 40 every 12. She still had required an insulin drip. Patient denies any chest pain. Denies any nausea or vomiting. Reports having bowel movements. Denies any black stool or blood in stool. Denies any difficulty urinating. Objective - Vital Signs Vital signs: Vital Signs Temp 97.6 F 07/26/16 07:00 Pulse 88 07/26/16 12:09 Resp 20 07/26/16 07:00 BP 164/74 07/26/16 11:09 Pulse Ox 94 L 07/26/16 09:12 Intake & Output 07/25/16 07/26/16 07/26/16 18:59 06:59 18:59 Intake Total 1246.749 46.834 42.667 Balance 1246.749 46.834 42.667 Weight 110 kg Intake: Intake, IV Titration 566.749 46.834 42.667 Amount Insulin Regular 100 unit 66.749 46.834 42.667 In Sodium Chloride 0.9% 100 ml @ Titrate IV .Q0M [facility] Rx#:[id number] Vancomycin 2,000 mg In 500 Sodium Chloride 0.9% 500 ml @ 167 mls/hr IVPB Q36H [facility] Rx#:[id number] Oral 680 Other: # Voids 1 3 - Exam Head normocephalic Neck supple Lungs upper airway coarse breath sounds Heart regular rate and rhythm S1-S2, no rub or gallop Abdomen is soft nontender nondistended positive bowel sounds no hepatosplenomegaly Extremities no edema. Left groin wound site packing in place there is no redness or drainage noted Neuro alert and orientated to 3 - Labs CBC & Chem 7: 07/26/16 06:40 07/26/16 06:40 Labs: Abnormal Lab Results - Last 24 Hours (Table) 07/25/16 07/25/16 07/25/16 Range/Units 14:06 15:54 17:42 WBC (3.8-10.6) k/uL RBC (3.80-5.40) m/uL Hgb (11.4-16.0) gm/dL Hct (34.0-46.0) % RDW (11.5-15.5) % Neutrophils # (1.3-7.7) k/uL Lymphocytes # (1.0-4.8) k/uL PT (9.0-12.0) sec Chloride (98-107) mmol/L BUN (7-17) mg/dL Creatinine (0.52-1.04) mg/dL Glucose (74-99) mg/dL POC Glucose (mg/dL) 226 H 179 H 153 H (75-99) mg/dL Calcium (8.4-10.2) mg/dL Alkaline Phosphatase (38-126) U/L Total Protein (6.3-8.2) g/dL Albumin (3.5-5.0) g/dL 07/25/16 07/25/16 07/26/16 Range/Units 20:01 21:57 00:10 WBC (3.8-10.6) k/uL RBC (3.80-5.40) m/uL Hgb (11.4-16.0) gm/dL Hct (34.0-46.0) % RDW (11.5-15.5) % Neutrophils # (1.3-7.7) k/uL Lymphocytes # (1.0-4.8) k/uL PT (9.0-12.0) sec Chloride (98-107) mmol/L BUN (7-17) mg/dL Creatinine (0.52-1.04) mg/dL Glucose (74-99) mg/dL POC Glucose (mg/dL) 136 H 180 H 216 H (75-99) mg/dL Calcium (8.4-10.2) mg/dL Alkaline Phosphatase (38-126) U/L Total Protein (6.3-8.2) g/dL Albumin (3.5-5.0) g/dL 07/26/16 07/26/16 07/26/16 Range/Units 02:15 04:22 05:59 WBC (3.8-10.6) k/uL RBC (3.80-5.40) m/uL Hgb (11.4-16.0) gm/dL Hct (34.0-46.0) % RDW (11.5-15.5) % Neutrophils # (1.3-7.7) k/uL Lymphocytes # (1.0-4.8) k/uL PT (9.0-12.0) sec Chloride (98-107) mmol/L BUN (7-17) mg/dL Creatinine (0.52-1.04) mg/dL Glucose (74-99) mg/dL POC Glucose (mg/dL) 225 H 255 H 246 H (75-99) mg/dL Calcium (8.4-10.2) mg/dL Alkaline Phosphatase (38-126) U/L Total Protein (6.3-8.2) g/dL Albumin (3.5-5.0) g/dL 07/26/16 07/26/16 07/26/16 Range/Units 06:40 06:40 06:40 WBC 18.8 H (3.8-10.6) k/uL RBC 2.52 L (3.80-5.40) m/uL Hgb 7.7 L (11.4-16.0) gm/dL Hct 24.6 L (34.0-46.0) % RDW 18.6 H (11.5-15.5) % Neutrophils # 18.0 H (1.3-7.7) k/uL Lymphocytes # 0.3 L (1.0-4.8) k/uL PT 26.5 H (9.0-12.0) sec Chloride 109 H (98-107) mmol/L BUN 71 H (7-17) mg/dL Creatinine 1.42 H (0.52-1.04) mg/dL Glucose 206 H (74-99) mg/dL POC Glucose (mg/dL) (75-99) mg/dL Calcium 8.3 L (8.4-10.2) mg/dL Alkaline Phosphatase 37 L (38-126) U/L Total Protein 5.1 L (6.3-8.2) g/dL Albumin 2.5 L (3.5-5.0) g/dL 07/26/16 07/26/16 07/26/16 Range/Units 08:01 09:54 11:59 WBC (3.8-10.6) k/uL RBC (3.80-5.40) m/uL Hgb (11.4-16.0) gm/dL Hct (34.0-46.0) % RDW (11.5-15.5) % Neutrophils # (1.3-7.7) k/uL Lymphocytes # (1.0-4.8) k/uL PT (9.0-12.0) sec Chloride (98-107) mmol/L BUN (7-17) mg/dL Creatinine (0.52-1.04) mg/dL Glucose (74-99) mg/dL POC Glucose (mg/dL) 218 H 252 H 240 H (75-99) mg/dL Calcium (8.4-10.2) mg/dL Alkaline Phosphatase (38-126) U/L Total Protein (6.3-8.2) g/dL Albumin (3.5-5.0) g/dL Assessment and Plan Plan: #1 MRSA bacterial pneumonia with sepsis present on admission: bronchoscopy during this admission. Pulmonary infectious disease following. Bronchial culture growing MRSA with yeast and fungal hyphae. Patient is currently on vancomycin. Continue Diflucan and nystatin swish and swallow to cover the yeast. Await further antibiotic recommendations for discharge per infectious disease #2 acute systolic congestive heart failure exacerbation: Elevated BNP level on admission. Patient receiving oral Lasix. #3 urinary tract infection : Urine culture Enterobacter cloacae and pseudomonas aeruginosa. Continue current antibiotics. Dr. Wild following. Continue Levaquin. Await discharge recommendations for antibiotics per infectious disease #4 left groin surgical wound infection with known history of seroma. Evaluated by Dr. García. Continue current wound care #5 chronic atrial fibrillation : INR 2.7. No Coumadin tonight. Check PT/INR in a.m. with further Coumadin dosing tomorrow #6 recent left lower extremity arterial occlusion requiring surgical intervention by vascular surgery Dr. García #7 diabetes mellitus type 2 on insulin drip secondary to steroids. Steroids have been tapered down anticipate improvement in sugars. We'll make further adjustments in insulin at that time. #8 severe protein calorie malnutrition: Start protein supplement poor nutritional status was decreased albumin 2.6 will have a nutrition consult #9 iron deficiency anemia : With history of GI bleed and unable to proceed with colonoscopy due to multiple complications had EGD at [facility] a few months ago that was unremarkable. Iron normal at 97. Continue with her ferrous sulfate. Patient did receive a unit of blood during this admission. Hemoglobin 7.7. Stool for occult blood negative. Monitor daily CBC #10 acute exacerbation of chronic obstructive pulmonary disease continue steroids and bronchodilators. Pulmonary service tapered Solu-Medrol to 40 mg IV every 12 #11 acute kidney injury: Continue to monitor #12 bacteremia with one blood culture positive coagulase negative staph repeat blood cultures negative 13 essential hypertension with elevated blood pressure this morning. Patient received her home meds will blood pressure repeated. Make further adjustments if needed. Repeat blood pressure is 164/74. Continue to monitor 14. When patient is stable for discharge she is to return to [facility] I performed an examination of the patient and discussed their management with the physician Microbiology Lab Analyst. I have reviewed the Physician Microbiology Lab Analyst's notes and agree with the documented findings and plan of care
--- NOTE | 2016-07-26 13:10 | PN ---
Ms. Bui is seen, evaluated and examined. Clinically patient is doing well, was noted to have severe hyperglycemia. Of note that patient has a very high dose IV steroids as well. Shortness of breath is better. She continues to get breathing treatments though. She is on 4 L of oxygen. She has a CPAP machine which she uses on a regular basis. Last set of vitals include blood pressure is 164/74, respiratory rate 20, pulse 68, temperature 97.6, saturation of 94% on 4 L oxygen. HEENT: Unremarkable. NECK: Supple. LUNGS: Good air entry bilaterally with fine expiratory rhonchi. HEART: Regular rate and rhythm. ABDOMEN: Soft. NEUROLOGICAL EXAMINATION: ( ). White cell count 18,800, hemoglobin 7.7, hematocrit 24, platelet count 269,000. PT, INR 26.5 and 2.7. BUN and creatinine 71 and 1.42. Glucose is 206. IMPRESSION: 1. Chronic hypoxic respiratory failure. 2. Chronic persistent asthma and severe chronic obstructive pulmonary disease. 3. Purulent tracheobronchitis along with methicillin-resistant Staphylococcus aureus pneumonia. 4. Obstructive sleep apnea with a component of obesity hypoventilation. 5. Diabetes mellitus and hyperglycemia, uncontrolled requiring insulin with worsening on the steroids. 6. Severe chronic anemia. PLAN AND RECOMMENDATIONS: Will lower down the Solu-Medrol. Continue breathing treatment. Monitor hemoglobin closely. Continue deep breathing exercises and incentive spirometry. We will follow clinical course closely. Further recommendations pending.
[2016-07-26] MEDS ORDERED: FUROSEMIDE 10 MG/ML 2 ML VIAL IV ONE (13:38)
[2016-07-26 14:35] LABS: Glucose,Whole Blood 213 mg/dL (75-99)
--- NOTE | 2016-07-26 14:36 | XR ---
Left ankle HISTORY: Left ankle pain 3 views of the left ankle correlated to left foot 07/24/2016, left leg 06/01/2014 There is joint space loss at the tibiotalar joint, marginal spurring. Alignment is maintained. Bone m ineralization is reduced. There is a plantar calcaneal spur. Enthesophyte present at the insertion of the Achilles tendon. There are vascular calcifications. IMPRESSION: Soft tissue swelling. Mild osteoarthritic change suspected
[2016-07-26 18:48] LABS: Glucose,Whole Blood 225 mg/dL (75-99)
[2016-07-26] MEDS ORDERED: methylPREDNISolone SOD SUCCI 40 MG/ML 1 ML VIAL IV SCH (21:00)
[2016-07-26 21:04] LABS: Glucose,Whole Blood 193 mg/dL (75-99)
--- NOTE | 2016-07-26 21:07 | P.PN ---
Subjective Principal diagnosis: Shortness of breath 76-year-old female who has a history of extensive hospitalizations earlier this year. She is evidence of the extensive lung disease. 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 She has sleep apnea. Her most recent stay she had evidence of extensive illness including the large clot from the left leg that required endarterectomy with patch angioplasty. She has significant difficulties at that site. She had pneumonia and infection at the left leg site. See the long course of antibiotic therapy. During that last day she have a short hiatus to her 's . Now presenting with increasing shortness of breath as well as concerns to sepsis and urinary tract infection. Patient has extensive congestion to her chest, pulmonary has seen bronchoscopies been performed showing evidence of MRSA. Seems to responding modestly well to current antibiotic therapy with vancomycin and Levaquin. Patient still quite short of breath but improved from admission. Denies high-grade fevers, chills or rigors. Continues to have a somewhat poor mood, with her poor health and the of her . Objective - Vital Signs Vital signs: Vital Signs Temp 97.0 F L 07/26/16 19:01 Pulse 82 07/26/16 20:22 Resp 16 07/26/16 19:01 BP 156/92 07/26/16 19:01 Pulse Ox 98 07/26/16 16:24 Intake & Output 07/26/16 07/26/16 07/27/16 06:59 18:59 06:59 Intake Total 46.834 70.300 310 Balance 46.834 70.300 310 Weight 110 kg Intake: Intake, IV Titration 46.834 70.300 Amount Insulin Regular 100 unit 46.834 70.300 In Sodium Chloride 0.9% 100 ml @ Titrate IV .Q0M [facility] Rx#:[id number] Blood Product 0 310 Rc As-1 Unit 0 310 [id number] Other: # Voids 3 3 - Exam 76-year-old woman who relates she is feeling less short of breath but appears to still be short of breath HEENT: Anicteric conjunctiva are pink and moist nasal mucosa grossly intact without significant lesions, there is no thrush. Worn dentition Neck: The neck is supple without significant lymphadenopathy or thyromegaly. Lungs: Symmetrical air entry is noted. Wheezes throughout the left lung is noted Bibasilar crackles are heard right greater than left no dullness is noted minimal egophony to the right base is noted Heart: Regular rate and rhythm with an audible S1-S2, no S3 soft S4, There is no significant murmur click or rub, PMI was nondisplaced. Abdomen: Obese, Positive bowel sounds soft and nontender without palpable masses or organomegaly. There was no guarding or rebound. Extremities: The upper and lower extremity is have some generalized edema. However no open ulcerations are seen. The entry site for the thrombectomy is without bleeding drainage or evidence of infection or tenderness Neuro: Awake alert oriented to person place and time. There are no acute new gross focal sensory motor deficits. She has significant generalized weakness though - Labs CBC & Chem 7: 07/26/16 06:40 07/26/16 06:40 Labs: Abnormal Lab Results - Last 24 Hours (Table) 07/25/16 07/26/16 07/26/16 Range/Units 21:57 00:10 02:15 WBC (3.8-10.6) k/uL RBC (3.80-5.40) m/uL Hgb (11.4-16.0) gm/dL Hct (34.0-46.0) % RDW (11.5-15.5) % Neutrophils # (1.3-7.7) k/uL Lymphocytes # (1.0-4.8) k/uL PT (9.0-12.0) sec Chloride (98-107) mmol/L BUN (7-17) mg/dL Creatinine (0.52-1.04) mg/dL Glucose (74-99) mg/dL POC Glucose (mg/dL) 180 H 216 H 225 H (75-99) mg/dL Calcium (8.4-10.2) mg/dL Alkaline Phosphatase (38-126) U/L Total Protein (6.3-8.2) g/dL Albumin (3.5-5.0) g/dL Crossmatch 07/26/16 07/26/16 07/26/16 Range/Units 04:22 05:59 06:40 WBC 18.8 H (3.8-10.6) k/uL RBC 2.52 L (3.80-5.40) m/uL Hgb 7.7 L (11.4-16.0) gm/dL Hct 24.6 L (34.0-46.0) % RDW 18.6 H (11.5-15.5) % Neutrophils # 18.0 H (1.3-7.7) k/uL Lymphocytes # 0.3 L (1.0-4.8) k/uL PT (9.0-12.0) sec Chloride (98-107) mmol/L BUN (7-17) mg/dL Creatinine (0.52-1.04) mg/dL Glucose (74-99) mg/dL POC Glucose (mg/dL) 255 H 246 H (75-99) mg/dL Calcium (8.4-10.2) mg/dL Alkaline Phosphatase (38-126) U/L Total Protein (6.3-8.2) g/dL Albumin (3.5-5.0) g/dL Crossmatch 07/26/16 07/26/16 07/26/16 Range/Units 06:40 06:40 08:01 WBC (3.8-10.6) k/uL RBC (3.80-5.40) m/uL Hgb (11.4-16.0) gm/dL Hct (34.0-46.0) % RDW (11.5-15.5) % Neutrophils # (1.3-7.7) k/uL Lymphocytes # (1.0-4.8) k/uL PT 26.5 H (9.0-12.0) sec Chloride 109 H (98-107) mmol/L BUN 71 H (7-17) mg/dL Creatinine 1.42 H (0.52-1.04) mg/dL Glucose 206 H (74-99) mg/dL POC Glucose (mg/dL) 218 H (75-99) mg/dL Calcium 8.3 L (8.4-10.2) mg/dL Alkaline Phosphatase 37 L (38-126) U/L Total Protein 5.1 L (6.3-8.2) g/dL Albumin 2.5 L (3.5-5.0) g/dL Crossmatch 07/26/16 07/26/16 07/26/16 Range/Units 09:54 11:59 14:12 WBC (3.8-10.6) k/uL RBC (3.80-5.40) m/uL Hgb (11.4-16.0) gm/dL Hct (34.0-46.0) % RDW (11.5-15.5) % Neutrophils # (1.3-7.7) k/uL Lymphocytes # (1.0-4.8) k/uL PT (9.0-12.0) sec Chloride (98-107) mmol/L BUN (7-17) mg/dL Creatinine (0.52-1.04) mg/dL Glucose (74-99) mg/dL POC Glucose (mg/dL) 252 H 240 H (75-99) mg/dL Calcium (8.4-10.2) mg/dL Alkaline Phosphatase (38-126) U/L Total Protein (6.3-8.2) g/dL Albumin (3.5-5.0) g/dL Crossmatch See Detail 07/26/16 07/26/16 07/26/16 Range/Units 14:31 18:46 21:03 WBC (3.8-10.6) k/uL RBC (3.80-5.40) m/uL Hgb (11.4-16.0) gm/dL Hct (34.0-46.0) % RDW (11.5-15.5) % Neutrophils # (1.3-7.7) k/uL Lymphocytes # (1.0-4.8) k/uL PT (9.0-12.0) sec Chloride (98-107) mmol/L BUN (7-17) mg/dL Creatinine (0.52-1.04) mg/dL Glucose (74-99) mg/dL POC Glucose (mg/dL) 213 H 225 H 193 H (75-99) mg/dL Calcium (8.4-10.2) mg/dL Alkaline Phosphatase (38-126) U/L Total Protein (6.3-8.2) g/dL Albumin (3.5-5.0) g/dL Crossmatch Laboratory Results WBC 18.8 k/uL (3.8-10.6) H 07/26/16 06:40 RBC 2.52 m/uL (3.80-5.40) L 07/26/16 06:40 Hgb 7.7 gm/dL (11.4-16.0) L 07/26/16 06:40 Hct 24.6 % (34.0-46.0) L 07/26/16 06:40 MCV 97.7 fL (80.0-100.0) 07/26/16 06:40 MCH 30.4 pg (25.0-35.0) 07/26/16 06:40 MCHC 31.1 g/dL (31.0-37.0) 07/26/16 06:40 RDW 18.6 % (11.5-15.5) H 07/26/16 06:40 Plt Count 269 k/uL (150-450) 07/26/16 06:40 Neutrophils % 95 % 07/26/16 06:40 Lymphocytes % 2 % 07/26/16 06:40 Monocytes % 3 % 07/26/16 06:40 Eosinophils % 0 % 07/26/16 06:40 Basophils % 0 % 07/26/16 06:40 Neutrophils # 18.0 k/uL (1.3-7.7) H 07/26/16 06:40 Lymphocytes # 0.3 k/uL (1.0-4.8) L 07/26/16 06:40 Monocytes # 0.5 k/uL (0-1.0) 07/26/16 06:40 Eosinophils # 0.0 k/uL (0-0.7) 07/26/16 06:40 Basophils # 0.0 k/uL (0-0.2) 07/26/16 06:40 Hypochromasia Marked 07/26/16 06:40 Poikilocytosis Slight 07/18/16 07:30 Anisocytosis Slight 07/26/16 06:40 Macrocytosis Slight 07/26/16 06:40 PT 26.5 sec (9.0-12.0) H 07/26/16 06:40 INR 2.7 (<1.1) 07/26/16 06:40 APTT 23.0 sec (22.0-30.0) 07/13/16 15:10 Sodium 140 mmol/L (137-145) 07/26/16 06:40 Potassium 4.7 mmol/L (3.5-5.1) 07/26/16 06:40 Chloride 109 mmol/L (98-107) H 07/26/16 06:40 Carbon Dioxide 24 mmol/L (22-30) 07/26/16 06:40 Anion Gap 7 mmol/L 07/26/16 06:40 BUN 71 mg/dL (7-17) H 07/26/16 06:40 Creatinine 1.42 mg/dL (0.52-1.04) H 07/26/16 06:40 Est GFR (MDRD) Af Amer 43 (>60 ml/min/1.73 sqM) 07/26/16 06:40 Est GFR (MDRD) Non-Af 36 (>60 ml/min/1.73 sqM) 07/26/16 06:40 Glucose 206 mg/dL (74-99) H 07/26/16 06:40 POC Glucose (mg/dL) 193 mg/dL (75-99) H 07/26/16 21:03 POC Glu Sole Ruffer ID Dalila Alexandra 07/26/16 21:[address] Glu mg/dL 154 mg/dL 07/13/16 15:10 Hemoglobin A1c 7.0 % (4.2-6.1) H 07/13/16 15:10 Plasma Lactic Acid Good 1.3 mmol/L (0.7-2.0) 07/13/16 15:10 Uric Acid 7.3 mg/dL (3.7-7.4) 07/26/16 14:12 Calcium 8.3 mg/dL (8.4-10.2) L 07/26/16 06:40 Magnesium 1.9 mg/dL (1.6-2.3) 07/16/16 07:44 Iron 97 ug/dL (37-170) 07/16/16 07:44 TIBC 240 ug/dL (265-497) L 07/16/16 07:44 % Saturation 40.4 % (20-50) 07/16/16 07:44 Ferritin 108 ng/mL (11-264) 07/16/16 07:44 Total Bilirubin 0.3 mg/dL (0.2-1.3) 07/26/16 06:40 AST 20 U/L (14-36) 07/26/16 06:40 ALT 37 U/L (9-52) 07/26/16 06:40 Alkaline Phosphatase 37 U/L (38-126) L 07/26/16 06:40 NT-Pro-B Natriuret Pep 31534 pg/mL 07/13/16 15:10 Total Protein 5.1 g/dL (6.3-8.2) L 07/26/16 06:40 Albumin 2.5 g/dL (3.5-5.0) L 07/26/16 06:40 Urine Color Yellow 07/13/16 15:10 Urine Appearance Turbid (Clear) H 07/13/16 15:10 Urine pH 5.5 (5.0-8.0) 07/13/16 15:10 Ur Specific [place] 1.014 (1.001-1.035) 07/13/16 15:10 Urine Protein 2+ (Negative) H 07/13/16 15:10 Urine Glucose (UA) Negative (Negative) 07/13/16 15:10 Urine Ketones Negative (Negative) 07/13/16 15:10 Urine Blood Large (Negative) H 07/13/16 15:10 Urine Nitrite Negative (Negative) 07/13/16 15:10 Urine Bilirubin Negative (Negative) 07/13/16 15:10 Urine Urobilinogen <2.0 mg/dL (<2.0) 07/13/16 15:10 Ur Leukocyte Esterase Large (Negative) H 07/13/16 15:10 Urine RBC 80 /hpf (0-5) H 07/13/16 15:10 Urine WBC >182 /hpf (0-5) H 07/13/16 15:10 Urine WBC Clumps Few /hpf (None) H 07/13/16 15:10 Ur Squamous Epith Cells 4 /hpf (0-4) 07/13/16 15:10 Urine Bacteria Many /hpf (None) H 07/13/16 15:10 Urine Yeast (Budding) Many /hpf (None) H 07/13/16 15:10 Stool Occult Blood Negative (Negative) 07/16/16 19:00 Vancomycin Trough 26.5 ug/mL 07/25/16 06:10 Virus Source See Below 07/16/16 09:30 Viral Test See Below 07/16/16 09:30 Virus Analysis Interp See Below 07/16/16 09:30 Miscellaneous Test Pneumocytis DFA 07/16/16 09:30 Misc Test Result See comment 07/16/16 09:30 Blood Type A Positive 07/26/16 14:12 Blood Type Recheck No 07/26/16 14:12 Antibody Screen NEGATIVE 07/26/16 14:12 Crossmatch See Detail 07/26/16 14:12 Spec Expiration Date 07/29/2016 - 231107/26/16 14:12 Microbiology 07/17/16 11:50 Sputum Gram Stain - Final 07/17/16 11:50 Sputum Sputum Culture - Final Methicillin resist S. aureus Alicja albicans 07/16/16 09:30 Bronchial Washings - Left Fungal Culture - Preliminary Alicja albicans 07/16/16 09:30 Bronchial Washings - Left Gram Stain - Final 07/16/16 09:30 Bronchial Washings - Left Bronchial Washings Culture - Final Methicillin resist S. aureus Alicja albicans 07/16/16 09:30 Bronchial Washings - Left Acid Fast Bacilli Smear - Final 07/16/16 09:30 Bronchial Washings - Left Acid Fast Bacilli Culture - Preliminary 07/13/16 15:10 Blood Blood Culture - Final 07/13/16 15:10 Blood Blood Culture Gram Stain - Final 07/13/16 15:10 Blood Blood Culture - Final Staphylococcus epidermidis 07/13/16 15:10 Urine,Voided Urine Culture - Final Enterobacter cloacae Pseudomonas aeruginosa Assessment and Plan (1) Sepsis Narrative/Plan: 76-year-old woman presents hospital feeling very poorly. Having increasing shortness of breath cough sputum production without hemoptysis. Generalized malaise. Fevers of also occurred. On evidence of extensive leukocytosis. There is evidence of 1 blood culture with coag was negative staph. Other blood cultures are negative. Urine culture is positive with evidence of Enterobacter and Pseudomonas fortunately both susceptible to Levaquin. Prior cultures did show evidence of the bronchoscopy with MRSA. Again seen with the most recent bronchoscopy. Consequently antibiotic therapy with vancomycin and levofloxacin will be utilized. She is anticoagulant with Coumadin and this must be watched closely because of utilization of Levaquin. Cultures in process now. Bronchoscopy cultures have shown evidence of ongoing MRSA. We'll plan another 10 days of therapy with vancomycin and Levaquin if she goes to extended care tomorrow. Continue supportive care with oxygen, respiratory treatments and CPAP as needed. the alicja does not require therapy. Prognosis is poor, patient depressed with the loss of her . Status: Acute (2) Pneumonia Status: Acute (3) Leukocytosis Status: Acute (4) Peripheral arterial occlusive disease Status: Chronic (5) Diabetes mellitus type 2, uncontrolled, with complications Status: Acute
[2016-07-26] MEDS: LOSARTAN 50 MG TAB PO SCH (22:11)
[2016-07-26] MEDS: MONTELUKAST 10 MG TAB PO SCH (22:12)
[2016-07-26] MEDS: PRAVASTATIN SODIUM 20 MG TAB PO SCH (22:13)
[2016-07-26] MEDS: POLYETHYLENE GLYCOL 3350 17 GM POWD.PACK PO SCH (22:13)
[2016-07-26 23:02] LABS: Glucose,Whole Blood 189 mg/dL (75-99)
[2016-07-27 01:02] LABS: Glucose,Whole Blood 181 mg/dL (75-99)
[2016-07-27 04:03] LABS: Glucose,Whole Blood 163 mg/dL (75-99)
[2016-07-27] MEDS: INSULIN REGULAR 100 UNIT in SODIUM CHLORIDE 0.9% 100 ML IV SCH ×2 (04:50→23:44)
[2016-07-27 05:05] LABS: Glucose,Whole Blood 154 mg/dL (75-99)
[2016-07-27 07:35] LABS: Glucose,Whole Blood 196 mg/dL (75-99)
[2016-07-27] MEDS: IPRATROPIUM-ALBUTEROL 3 ML NEB INHALATION SCH ×4 (07:49→19:46)
[2016-07-27] MEDS: BUDESONIDE 1 MG/2 ML NEBU INHALATION SCH ×2 (07:49→19:46)
[2016-07-27] MEDS: INSULIN LISPRO (humaLOG) 300 UNIT/3 ML VIAL SQ SCH ×3 (08:25→18:24)
[2016-07-27] MEDS: METOPROLOL SUCCINATE (ER) 100 MG TAB.ER.24H PO SCH ×2 (08:38→21:37)
[2016-07-27] MEDS: HYDROcodone/APAP 10-325MG 1 EACH TAB PO PRN ×2 (08:38→16:04)
[2016-07-27] MEDS: ALPRAZolam 0.25 MG TAB PO SCH ×2 (08:38→21:37)
[2016-07-27] MEDS: guaiFENesin 600 MG TABLET.ER PO SCH ×2 (08:40→21:37)
[2016-07-27] MEDS: DOCUSATE 100 MG CAP PO SCH ×2 (08:40→21:37)
[2016-07-27] MEDS: NYSTATIN 100,000 UNIT/ML SUSP 500,000 UNIT/5 ML CUP PO SCH ×4 (08:40→21:38)
[2016-07-27] MEDS: FLUCONAZOLE ORAL SUSP 1,400 MG/35 ML BOTTLE PO SCH (08:40)
[2016-07-27] MEDS: FUROSEMIDE 40 MG TAB PO SCH ×2 (08:40→15:18)
[2016-07-27] MEDS: DIGOXIN 125 MCG TAB PO SCH (08:40)
[2016-07-27] MEDS: predniSONE 20 MG TAB PO SCH (08:41)
[2016-07-27] MEDS: FERROUS SULFATE 325 MG TAB PO SCH ×2 (08:41→21:37)
[2016-07-27] MEDS: PANTOPRAZOLE 40 MG TABLET PO SCH (08:42)
[2016-07-27 08:44] LABS: Anisocytosis Slight; Basophils % (A) 0 %; CH 28.6; CHCM 31.1; Eosinophils # (A) 0.1 k/uL (0-0.7); Eosinophils % (A) 1 %; HCT 28.1 % (34.0-46.0); HDW 3.47; HGB 8.8 gm/dL (11.4-16.0); Hypochromasia Moderate; Luc # (Auto) 0.06; Luc % (Auto) 0; Lymphocytes # (A) 0.3 k/uL (1.0-4.8); Lymphocytes % (A) 2 %; MCHC 31.2 g/dL (31.0-37.0); MCV 92.9 fL (80.0-100.0); Mean Platelet Volume 7.6; Monocytes # (A) 0.7 k/uL (0-1.0); Monocytes % (A) 3 %; Neutrophils # (A) 18.9 k/uL (1.3-7.7); Neutrophils % (A) 94 %; Poikilocytosis Slight; RBC 3.03 m/uL (3.80-5.40); RDW 19.3 % (11.5-15.5); WBC 20.1 k/uL (3.8-10.6); WBC (Perox) 20.19
[2016-07-27 08:52] LABS: INR 2.4 (<1.1); Prothrombin Time 23.3 sec (9.0-12.0)
[2016-07-27 08:58] LABS: Calcium 8.3 mg/dL (8.4-10.2); Potassium 4.7 mmol/L (3.5-5.1); Total Bilirubin 0.3 mg/dL (0.2-1.3); Total Protein 5.2 g/dL (6.3-8.2)
[2016-07-27 09:03] LABS: Glucose,Whole Blood 319 mg/dL (75-99)
--- NOTE | 2016-07-27 10:17 | PN ---
DATE OF SERVICE: 07/27/2016 Ms. Maria De Jesus Bui is a 76-year-old female, seen, evaluated and examined on the fourth floor. Clinically, the patient is doing well. Awake and alert. Breathing comfortably. Remains on 4 L oxygen though gets short of breath on activity and exertion. The patient is well anticoagulated with Coumadin. Still has intermittent pain in the foot, but severity has improved significantly now. Last set of vitals include blood pressure is 143/61, respiratory rate 16, pulse 72, temperature is 97.4, saturating at 98% on 4 L of oxygen. HEENT: Unremarkable. NECK: Supple. LUNGS: Good air entry bilaterally. HEART: Regular rate and rhythm. S1, S2 audible. ABDOMEN: Soft. NEUROLOGICAL EXAMINATION: Otherwise, awake and alert. LABS: Reviewed. White cell count 18,800, hemoglobin and hematocrit 7.7 and 24, platelet count 269,000. PT, INR is 26.5 and 2.7. Glucose is 206. Current medications reviewed as well. The Solu-Medrol is down to 40 mg q.12 now. Ankle x-ray performed on 07/26/16 reviewed, which reveals soft tissue swelling along with some arthritic changes. The foot x-ray performed 07/24/16 revealed no acute fracture. IMPRESSION: 1. Sepsis associated with urinary tract infection, polymicrobial Enterobacter and Pseudomonas. 2. Patient has multiple bronch, continued to show methicillin-resistant Staphylococcus aureus, has been on treatment with vancomycin and infectious disease service is adjusting. 3. Methicillin-resistant Staphylococcus aureus pneumonia. 4. Leukocytosis. 5. Peripheral arterial disease. 6. Uncontrolled diabetes and hyperglycemia with worsening with steroids. Now steroids are being tapered down. Insulin is being tapered down as well. PLAN AND RECOMMENDATION: As above. Continued support care. Follow clinical course closely. Increase activity as tolerated. Hopefully, will change the steroids to oral prednisone in the next 24 hours. Repeat chest x-ray tomorrow. Will follow.
[2016-07-27 11:01] LABS: Glucose,Whole Blood 213 mg/dL (75-99)
[2016-07-27 13:25] LABS: Glucose,Whole Blood 220 mg/dL (75-99)
[2016-07-27 15:05] LABS: Glucose,Whole Blood 182 mg/dL (75-99)
[2016-07-27] MEDS: LEVOFLOXACIN 750 MG TAB PO SCH (16:05)
--- NOTE | 2016-07-27 16:07 | P.PN ---
Subjective Principal diagnosis: Pneumonia with sepsis Patient is doing better today she is still complaining of cough and shortness of breath She is complaining of weakness with inability to stand or walk She was able to sit on the edge of the bed. Otherwise she denies any complaints at this time Objective - Vital Signs Vital signs: Vital Signs Temp 97.7 F 07/27/16 15:00 Pulse 73 07/27/16 15:57 Resp 16 07/27/16 15:57 BP 124/60 07/27/16 15:00 Pulse Ox 95 07/27/16 15:57 Intake & Output 07/26/16 07/27/16 07/27/16 18:59 06:59 18:59 Intake Total 70.300 341.850 971.791 Balance 70.300 341.850 971.791 Weight 125.5 kg Intake: IV 120 Normal Saline at 20ml/hr 120 Intake, IV Titration 70.300 31.850 56.791 Amount Insulin Regular 100 unit 70.300 31.850 56.791 In Sodium Chloride 0.9% 100 ml @ Titrate IV .Q0M [facility] Rx#:[id number] Oral 795 Blood Product 0 310 Rc As-1 Unit 0 310 [id number] Other: Voiding Method Bedpan # Voids 3 4 2 # Bowel Movements 1 - Exam In general patient is alert and oriented 3 in no apparent distress HEENT head normocephalic and atraumatic Neck is supple no JVD no goiter no lymphadenopathy Chest exam reveals bilateral coarse crackles no wheezing Cardiac exam reveals regular heart sounds no gallops no murmurs Abdomen is soft nontender no organomegaly Extremity exam reveals 2+ edema no cyanosis or clubbing - Labs CBC & Chem 7: 07/27/16 08:30 07/27/16 08:30 Labs: Abnormal Lab Results - Last 24 Hours (Table) 07/26/16 07/26/16 07/26/16 Range/Units 14:12 18:46 21:03 WBC (3.8-10.6) k/uL RBC (3.80-5.40) m/uL Hgb (11.4-16.0) gm/dL Hct (34.0-46.0) % RDW (11.5-15.5) % Neutrophils # (1.3-7.7) k/uL Lymphocytes # (1.0-4.8) k/uL PT (9.0-12.0) sec BUN (7-17) mg/dL Creatinine (0.52-1.04) mg/dL Glucose (74-99) mg/dL POC Glucose (mg/dL) 225 H 193 H (75-99) mg/dL Calcium (8.4-10.2) mg/dL Total Protein (6.3-8.2) g/dL Albumin (3.5-5.0) g/dL Crossmatch See Detail 07/26/16 07/27/16 07/27/16 Range/Units 23:00 01:01 04:02 WBC (3.8-10.6) k/uL RBC (3.80-5.40) m/uL Hgb (11.4-16.0) gm/dL Hct (34.0-46.0) % RDW (11.5-15.5) % Neutrophils # (1.3-7.7) k/uL Lymphocytes # (1.0-4.8) k/uL PT (9.0-12.0) sec BUN (7-17) mg/dL Creatinine (0.52-1.04) mg/dL Glucose (74-99) mg/dL POC Glucose (mg/dL) 189 H 181 H 163 H (75-99) mg/dL Calcium (8.4-10.2) mg/dL Total Protein (6.3-8.2) g/dL Albumin (3.5-5.0) g/dL Crossmatch 07/27/16 07/27/16 07/27/16 Range/Units 05:04 07:01 08:30 WBC (3.8-10.6) k/uL RBC (3.80-5.40) m/uL Hgb (11.4-16.0) gm/dL Hct (34.0-46.0) % RDW (11.5-15.5) % Neutrophils # (1.3-7.7) k/uL Lymphocytes # (1.0-4.8) k/uL PT 23.3 H (9.0-12.0) sec BUN (7-17) mg/dL Creatinine (0.52-1.04) mg/dL Glucose (74-99) mg/dL POC Glucose (mg/dL) 154 H 196 H (75-99) mg/dL Calcium (8.4-10.2) mg/dL Total Protein (6.3-8.2) g/dL Albumin (3.5-5.0) g/dL Crossmatch 07/27/16 07/27/16 07/27/16 Range/Units 08:30 08:30 09:00 WBC 20.1 H (3.8-10.6) k/uL RBC 3.03 L (3.80-5.40) m/uL Hgb 8.8 L (11.4-16.0) gm/dL Hct 28.1 L (34.0-46.0) % RDW 19.3 H (11.5-15.5) % Neutrophils # 18.9 H (1.3-7.7) k/uL Lymphocytes # 0.3 L (1.0-4.8) k/uL PT (9.0-12.0) sec BUN 73 H (7-17) mg/dL Creatinine 1.24 H (0.52-1.04) mg/dL Glucose 219 H (74-99) mg/dL POC Glucose (mg/dL) 319 H (75-99) mg/dL Calcium 8.3 L (8.4-10.2) mg/dL Total Protein 5.2 L (6.3-8.2) g/dL Albumin 2.6 L (3.5-5.0) g/dL Crossmatch 07/27/16 07/27/16 07/27/16 Range/Units 10:58 13:22 15:03 WBC (3.8-10.6) k/uL RBC (3.80-5.40) m/uL Hgb (11.4-16.0) gm/dL Hct (34.0-46.0) % RDW (11.5-15.5) % Neutrophils # (1.3-7.7) k/uL Lymphocytes # (1.0-4.8) k/uL PT (9.0-12.0) sec BUN (7-17) mg/dL Creatinine (0.52-1.04) mg/dL Glucose (74-99) mg/dL POC Glucose (mg/dL) 213 H 220 H 182 H (75-99) mg/dL Calcium (8.4-10.2) mg/dL Total Protein (6.3-8.2) g/dL Albumin (3.5-5.0) g/dL Crossmatch Assessment and Plan Plan: #1 bacterial pneumonia with sepsis present on admission: Known history of sputum positive culture for MRSA Continue with current IV antibiotics Followed by pulmonary service and infectious disease. #2 acute systolic congestive heart failure exacerbation: Elevated BNP level on admission. Patient receiving oral Lasix. #3 urinary tract infection : Urine culture Enterobacter cloacae and pseudomonas aeruginosa. Continue current antibiotics. #4 left groin surgical wound infection with known history of seroma. Evaluated by Dr. García. Continue current wound care #5 chronic atrial fibrillation. Continue with Coumadin therapy #6 recent left lower extremity arterial occlusion requiring surgical intervention by vascular surgery Dr. García #7 diabetes mellitus type 2 on insulin drip secondary to steroids #8 severe protein calorie malnutrition: Start protein supplement poor nutritional status was decreased albumin 2.6 will have a nutrition consult #9 iron deficiency anemia : With history of GI bleed and unable to proceed with colonoscopy due to multiple complications had EGD at [facility] a few months ago that was unremarkable. Check iron studies. Check stool for occult blood. Hemoglobin has dropped to 7.6. #10 acute exacerbation of chronic obstructive pulmonary disease continue steroids and bronchodilators #11 acute kidney injury: Creatinine is up to 1.64. Lasix held yesterday evening. Continue to monitor #12 bacteremia with one blood culture positive coagulase negative staph. At this time patient is followed by Dr. Wild for IV antibiotic management Patient was also started on IV Solu-Medrol for COPD exacerbation, now switched to oral prednisone patient is well known to Dr. Pittman who is following her case Will recheck labs in a.m. Will follow closely Prognosis is guarded due to multiple medical problems plan to transfer to snf on if stable
[2016-07-27 17:06] LABS: Glucose,Whole Blood 152 mg/dL (75-99)
[2016-07-27] MEDS: ALLOPURINOL 100 MG TAB PO SCH (17:24)
[2016-07-27] MEDS ORDERED: VANCOMYCIN 2,000 MG in SODIUM CHLORIDE 0.9% 500 ML IVPB SCH (18:00)
[2016-07-27] MEDS ORDERED: WARFARIN 2.5 MG TAB PO ONE (18:00)
[2016-07-27 19:31] LABS: Glucose,Whole Blood 179 mg/dL (75-99)
[2016-07-27 21:08] LABS: Glucose,Whole Blood 148 mg/dL (75-99)
[2016-07-27] MEDS: MONTELUKAST 10 MG TAB PO SCH (21:37)
[2016-07-27] MEDS: PRAVASTATIN SODIUM 20 MG TAB PO SCH (21:37)
[2016-07-27] MEDS: LOSARTAN 50 MG TAB PO SCH (21:37)
[2016-07-27] MEDS: POLYETHYLENE GLYCOL 3350 17 GM POWD.PACK PO SCH (21:37)
[2016-07-27 23:21] LABS: Glucose,Whole Blood 177 mg/dL (75-99)
[2016-07-28 02:59] LABS: Glucose,Whole Blood 185 mg/dL (75-99)
[2016-07-28 05:13] LABS: Glucose,Whole Blood 208 mg/dL (75-99)
[2016-07-28 06:53] LABS: Anisocytosis Slight; Basophils % (A) 0 %; CH 28.5; CHCM 30.4; Eosinophils # (A) 0.1 k/uL (0-0.7); Eosinophils % (A) 0 %; HCT 27.1 % (34.0-46.0); HDW 3.21; HGB 8.2 gm/dL (11.4-16.0); Hypochromasia Marked; Luc # (Auto) 0.05; Luc % (Auto) 0; Lymphocytes # (A) 0.3 k/uL (1.0-4.8); Lymphocytes % (A) 2 %; MCH 28.6 pg (25.0-35.0); MCHC 30.3 g/dL (31.0-37.0); MCV 94.4 fL (80.0-100.0); Macrocytosis Slight; Mean Platelet Volume 7.8; Monocytes # (A) 0.7 k/uL (0-1.0); Monocytes % (A) 4 %; Neutrophils # (A) 16.9 k/uL (1.3-7.7); Neutrophils % (A) 94 %; RBC 2.87 m/uL (3.80-5.40); RDW 19.4 % (11.5-15.5); WBC 17.9 k/uL (3.8-10.6); WBC (Perox) 18.55
[2016-07-28 07:01] LABS: INR 2.3 (<1.1); Prothrombin Time 22.2 sec (9.0-12.0)
[2016-07-28 07:06] LABS: Potassium 4.7 mmol/L (3.5-5.1); Total Bilirubin 0.3 mg/dL (0.2-1.3); Total Protein 4.8 g/dL (6.3-8.2)
[2016-07-28 07:28] LABS: Glucose,Whole Blood 222 mg/dL (75-99)
[2016-07-28] MEDS: IPRATROPIUM-ALBUTEROL 3 ML NEB INHALATION SCH ×4 (08:05→20:44)
[2016-07-28] MEDS: BUDESONIDE 1 MG/2 ML NEBU INHALATION SCH ×2 (08:05→20:44)
[2016-07-28] MEDS: INSULIN LISPRO (humaLOG) 300 UNIT/3 ML VIAL SQ SCH ×5 (08:27→21:34)
[2016-07-28] MEDS: METOPROLOL SUCCINATE (ER) 100 MG TAB.ER.24H PO SCH ×2 (08:28→21:24)
[2016-07-28] MEDS: NYSTATIN 100,000 UNIT/ML SUSP 500,000 UNIT/5 ML CUP PO SCH ×4 (08:28→21:23)
[2016-07-28] MEDS: HYDROcodone/APAP 10-325MG 1 EACH TAB PO PRN ×3 (08:28→21:22)
[2016-07-28] MEDS: guaiFENesin 600 MG TABLET.ER PO SCH ×2 (08:29→21:23)
[2016-07-28] MEDS: ALPRAZolam 0.25 MG TAB PO SCH ×2 (08:29→21:24)
[2016-07-28] MEDS: FERROUS SULFATE 325 MG TAB PO SCH ×2 (08:29→21:24)
[2016-07-28] MEDS: ALLOPURINOL 100 MG TAB PO SCH (08:29)
[2016-07-28] MEDS: DIGOXIN 125 MCG TAB PO SCH (08:30)
[2016-07-28] MEDS: PANTOPRAZOLE 40 MG TABLET PO SCH (08:30)
[2016-07-28] MEDS: FUROSEMIDE 40 MG TAB PO SCH ×2 (08:30→16:30)
[2016-07-28] MEDS: DOCUSATE 100 MG CAP PO SCH ×2 (08:30→21:24)
[2016-07-28] MEDS: FLUCONAZOLE ORAL SUSP 1,400 MG/35 ML BOTTLE PO SCH (08:30)
[2016-07-28] MEDS: predniSONE 20 MG TAB PO SCH (08:30)
[2016-07-28 09:05] LABS: Glucose,Whole Blood 192 mg/dL (75-99)
--- NOTE | 2016-07-28 09:37 | XR ---
EXAMINATION TYPE: XR chest 1V portable DATE OF EXAM: 07/28/2016 HISTORY: MRSA PNEUMONIA. REFERENCE: Previous study dated 07/16/2016. FINDINGS: A neural stimulator projects over the lower thoracic spine. A left basilic PICC line is in place. Its tip is in the superior vena cava. There is bibasilar atelectasis. The heart is mildly enlarged. There is a small left effusion. IMPRESSION: 1. BIBASILAR ATELECTASIS, WORSE ON THE LEFT THAN THE RIGHT. 2. CARDIOMEGALY. 3. I CANNOT EXCLUDE SMALL EFFUSIONS
[2016-07-28 11:23] LABS: Glucose,Whole Blood 173 mg/dL (75-99)
--- NOTE | 2016-07-28 13:07 | P.PN ---
Subjective Principal diagnosis: Pneumonia with sepsis Patient is doing better today she is still complaining of cough and shortness of breath She is complaining of weakness with inability to stand or walk She was able to sit on the edge of the bed. Otherwise she denies any complaints at this time Objective - Vital Signs Vital signs: Vital Signs Temp 97.5 F L 07/28/16 07:00 Pulse 76 07/28/16 13:02 Resp 16 07/28/16 07:00 BP 137/63 07/28/16 07:00 Pulse Ox 92 L 07/28/16 07:00 Intake & Output 07/27/16 07/28/16 07/28/16 18:59 06:59 18:59 Intake Total 980.258 43.535 22.317 Balance 980.258 43.535 22.317 Weight 125 kg Intake: IV 120 Normal Saline at 20ml/hr 120 Intake, IV Titration 65.258 43.535 22.317 Amount Insulin Regular 100 unit 65.258 43.535 22.317 In Sodium Chloride 0.9% 100 ml @ Titrate IV .Q0M [facility] Rx#:[id number] Oral 795 Other: Voiding Method Bedpan # Voids 1 4 1 # Bowel Movements 1 - Exam In general patient is alert and oriented 3 in no apparent distress HEENT head normocephalic and atraumatic Neck is supple no JVD no goiter no lymphadenopathy Chest exam reveals bilateral coarse crackles no wheezing Cardiac exam reveals regular heart sounds no gallops no murmurs Abdomen is soft nontender no organomegaly Extremity exam reveals 2+ edema no cyanosis or clubbing - Labs CBC & Chem 7: 07/28/16 06:45 07/28/16 06:45 Labs: Abnormal Lab Results - Last 24 Hours (Table) 07/27/16 07/27/16 07/27/16 Range/Units 13:22 15:03 17:05 WBC (3.8-10.6) k/uL RBC (3.80-5.40) m/uL Hgb (11.4-16.0) gm/dL Hct (34.0-46.0) % MCHC (31.0-37.0) g/dL RDW (11.5-15.5) % Neutrophils # (1.3-7.7) k/uL Lymphocytes # (1.0-4.8) k/uL PT (9.0-12.0) sec Chloride (98-107) mmol/L BUN (7-17) mg/dL Creatinine (0.52-1.04) mg/dL Glucose (74-99) mg/dL POC Glucose (mg/dL) 220 H 182 H 152 H (75-99) mg/dL Calcium (8.4-10.2) mg/dL AST (14-36) U/L Alkaline Phosphatase (38-126) U/L Total Protein (6.3-8.2) g/dL Albumin (3.5-5.0) g/dL 07/27/16 07/27/16 07/27/16 Range/Units 19:11 21:06 23:18 WBC (3.8-10.6) k/uL RBC (3.80-5.40) m/uL Hgb (11.4-16.0) gm/dL Hct (34.0-46.0) % MCHC (31.0-37.0) g/dL RDW (11.5-15.5) % Neutrophils # (1.3-7.7) k/uL Lymphocytes # (1.0-4.8) k/uL PT (9.0-12.0) sec Chloride (98-107) mmol/L BUN (7-17) mg/dL Creatinine (0.52-1.04) mg/dL Glucose (74-99) mg/dL POC Glucose (mg/dL) 179 H 148 H 177 H (75-99) mg/dL Calcium (8.4-10.2) mg/dL AST (14-36) U/L Alkaline Phosphatase (38-126) U/L Total Protein (6.3-8.2) g/dL Albumin (3.5-5.0) g/dL 07/28/16 07/28/16 07/28/16 Range/Units 02:39 05:10 06:45 WBC (3.8-10.6) k/uL RBC (3.80-5.40) m/uL Hgb (11.4-16.0) gm/dL Hct (34.0-46.0) % MCHC (31.0-37.0) g/dL RDW (11.5-15.5) % Neutrophils # (1.3-7.7) k/uL Lymphocytes # (1.0-4.8) k/uL PT 22.2 H (9.0-12.0) sec Chloride (98-107) mmol/L BUN (7-17) mg/dL Creatinine (0.52-1.04) mg/dL Glucose (74-99) mg/dL POC Glucose (mg/dL) 185 H 208 H (75-99) mg/dL Calcium (8.4-10.2) mg/dL AST (14-36) U/L Alkaline Phosphatase (38-126) U/L Total Protein (6.3-8.2) g/dL Albumin (3.5-5.0) g/dL 07/28/16 07/28/16 07/28/16 Range/Units 06:45 06:45 06:58 WBC 17.9 H (3.8-10.6) k/uL RBC 2.87 L (3.80-5.40) m/uL Hgb 8.2 L (11.4-16.0) gm/dL Hct 27.1 L (34.0-46.0) % MCHC 30.3 L (31.0-37.0) g/dL RDW 19.4 H (11.5-15.5) % Neutrophils # 16.9 H (1.3-7.7) k/uL Lymphocytes # 0.3 L (1.0-4.8) k/uL PT (9.0-12.0) sec Chloride 108 H (98-107) mmol/L BUN 76 H (7-17) mg/dL Creatinine 1.20 H (0.52-1.04) mg/dL Glucose 174 H (74-99) mg/dL POC Glucose (mg/dL) 222 H (75-99) mg/dL Calcium 8.0 L (8.4-10.2) mg/dL AST 13 L (14-36) U/L Alkaline Phosphatase 37 L (38-126) U/L Total Protein 4.8 L (6.3-8.2) g/dL Albumin 2.3 L (3.5-5.0) g/dL 07/28/16 07/28/16 Range/Units 09:00 11:09 WBC (3.8-10.6) k/uL RBC (3.80-5.40) m/uL Hgb (11.4-16.0) gm/dL Hct (34.0-46.0) % MCHC (31.0-37.0) g/dL RDW (11.5-15.5) % Neutrophils # (1.3-7.7) k/uL Lymphocytes # (1.0-4.8) k/uL PT (9.0-12.0) sec Chloride (98-107) mmol/L BUN (7-17) mg/dL Creatinine (0.52-1.04) mg/dL Glucose (74-99) mg/dL POC Glucose (mg/dL) 192 H 173 H (75-99) mg/dL Calcium (8.4-10.2) mg/dL AST (14-36) U/L Alkaline Phosphatase (38-126) U/L Total Protein (6.3-8.2) g/dL Albumin (3.5-5.0) g/dL Assessment and Plan Plan: #1 bacterial pneumonia with sepsis present on admission: Known history of sputum positive culture for MRSA Continue with current IV antibiotics Followed by pulmonary service and infectious disease. #2 acute systolic congestive heart failure exacerbation: Elevated BNP level on admission. Patient receiving oral Lasix. #3 urinary tract infection : Urine culture Enterobacter cloacae and pseudomonas aeruginosa. Continue current antibiotics. #4 left groin surgical wound infection with known history of seroma. Evaluated by Dr. García. Continue current wound care #5 chronic atrial fibrillation. Continue with Coumadin therapy #6 recent left lower extremity arterial occlusion requiring surgical intervention by vascular surgery Dr. García #7 diabetes mellitus type 2 on insulin drip secondary to steroids, at this time will discontinue insulin drip restart Levemir at 25 units twice daily restart Humalog at 7 units before each meal plus sliding scale will adjust insulin as needed #8 severe protein calorie malnutrition: Start protein supplement poor nutritional status was decreased albumin 2.6 will have a nutrition consult #9 iron deficiency anemia : With history of GI bleed and unable to proceed with colonoscopy due to multiple complications had EGD at [facility] a few months ago that was unremarkable. Check iron studies. Check stool for occult blood. Hemoglobin has dropped to 7.6. #10 acute exacerbation of chronic obstructive pulmonary disease continue steroids and bronchodilators #11 acute kidney injury: Creatinine is up to 1.64. Lasix held yesterday evening. Continue to monitor #12 bacteremia with one blood culture positive coagulase negative staph. At this time patient is followed by Dr. Wild for IV antibiotic management Patient was also started on IV Solu-Medrol for COPD exacerbation, now switched to oral prednisone patient is well known to Dr. Pittman who is following her case Will recheck labs in a.m. Will follow closely Prognosis is guarded due to multiple medical problems plan to transfer to residential on tomorrow if stable
[2016-07-28 13:18] LABS: Glucose,Whole Blood 111 mg/dL (75-99)
[2016-07-28 17:17] LABS: Glucose,Whole Blood 317 mg/dL (75-99)
[2016-07-28] MEDS ORDERED: WARFARIN 2.5 MG TAB PO ONE (18:00)
[2016-07-28] MEDS ORDERED: INSULIN DETEMIR 100 UNIT/ML 10 ML VIAL SQ SCH (21:00)
[2016-07-28] MEDS: POLYETHYLENE GLYCOL 3350 17 GM POWD.PACK PO SCH (21:23)
[2016-07-28] MEDS: MONTELUKAST 10 MG TAB PO SCH (21:24)
[2016-07-28] MEDS: LOSARTAN 50 MG TAB PO SCH (21:24)
[2016-07-28] MEDS: PRAVASTATIN SODIUM 20 MG TAB PO SCH (21:24)
[2016-07-28 21:37] LABS: Glucose,Whole Blood 462 mg/dL (75-99)
[2016-07-28 23:19] LABS: Glucose,Whole Blood 466 mg/dL (75-99)
[2016-07-29] MEDS ORDERED: INSULIN REGULAR BOLUS (FROM DRIP BAG) IV ONE (01:08)
[2016-07-29] MEDS ORDERED: INSULIN REGULAR 100 UNIT in SODIUM CHLORIDE 0.9% 100 ML IV SCH (01:15)
[2016-07-29 01:44] LABS: Glucose,Whole Blood 398 mg/dL (75-99)
[2016-07-29 02:19] LABS: Glucose,Whole Blood 420 mg/dL (75-99)
[2016-07-29 03:08] LABS: Glucose,Whole Blood 350 mg/dL (75-99)
[2016-07-29 03:52] LABS: Glucose,Whole Blood 284 mg/dL (75-99)
[2016-07-29 04:18] VITALS: RESP 18
[2016-07-29 04:30] LABS: Glucose,Whole Blood 223 mg/dL (75-99)
[2016-07-29 05:04] LABS: Glucose,Whole Blood 203 mg/dL (75-99)
[2016-07-29 06:23] LABS: Glucose,Whole Blood 144 mg/dL (75-99)
[2016-07-29] MEDS ORDERED: INSULIN LISPRO (humaLOG) 300 UNIT/3 ML VIAL SQ SCH ×2 (07:30)
[2016-07-29] MEDS: BUDESONIDE 1 MG/2 ML NEBU INHALATION SCH (07:46)
[2016-07-29] MEDS: IPRATROPIUM-ALBUTEROL 3 ML NEB INHALATION SCH ×2 (07:47→11:43)
[2016-07-29] MEDS: INSULIN LISPRO (humaLOG) 300 UNIT/3 ML VIAL SQ SCH ×2 (08:21→13:13)
[2016-07-29] MEDS: DIGOXIN 125 MCG TAB PO SCH (08:23)
[2016-07-29] MEDS: ALLOPURINOL 100 MG TAB PO SCH (08:23)
[2016-07-29] MEDS: FERROUS SULFATE 325 MG TAB PO SCH (08:24)
[2016-07-29] MEDS: FLUCONAZOLE ORAL SUSP 1,400 MG/35 ML BOTTLE PO SCH (08:24)
[2016-07-29] MEDS: DOCUSATE 100 MG CAP PO SCH (08:24)
[2016-07-29] MEDS: PANTOPRAZOLE 40 MG TABLET PO SCH (08:25)
[2016-07-29] MEDS: predniSONE 20 MG TAB PO SCH (08:25)
[2016-07-29] MEDS: FUROSEMIDE 40 MG TAB PO SCH (08:25)
[2016-07-29] MEDS: NYSTATIN 100,000 UNIT/ML SUSP 500,000 UNIT/5 ML CUP PO SCH ×2 (08:25→11:08)
[2016-07-29] MEDS: METOPROLOL SUCCINATE (ER) 100 MG TAB.ER.24H PO SCH (08:25)
[2016-07-29] MEDS: guaiFENesin 600 MG TABLET.ER PO SCH (08:25)
[2016-07-29 08:29] LABS: Glucose,Whole Blood 106 mg/dL (75-99)
[2016-07-29 08:31] VITALS: BP 130/44; TEMP 96.7
[2016-07-29] MEDS: ALPRAZolam 0.25 MG TAB PO SCH (08:31)
[2016-07-29 09:04] LABS: Glucose,Whole Blood 115 mg/dL (75-99)
[2016-07-29] MEDS ORDERED: INSULIN DETEMIR 100 UNIT/ML 10 ML VIAL SQ SCH (09:15)
[2016-07-29] MEDS: HYDROcodone/APAP 10-325MG 1 EACH TAB PO PRN (11:08)
[2016-07-29 11:09] LABS: Anisocytosis Slight; Basophils % (A) 0 %; CH 28.4; CHCM 30.1; Eosinophils # (A) 0.1 k/uL (0-0.7); Eosinophils % (A) 1 %; HCT 27.5 % (34.0-46.0); HDW 3.03; HGB 8.3 gm/dL (11.4-16.0); Hypochromasia Marked; Luc # (Auto) 0.14; Luc % (Auto) 1; Lymphocytes # (A) 0.7 k/uL (1.0-4.8); Lymphocytes % (A) 4 %; MCH 28.4 pg (25.0-35.0); MCV 94.7 fL (80.0-100.0); Macrocytosis Slight; Mean Platelet Volume 8.1; Monocytes # (A) 0.8 k/uL (0-1.0); Monocytes % (A) 4 %; Neutrophils # (A) 16.3 k/uL (1.3-7.7); Neutrophils % (A) 90 %; RBC 2.91 m/uL (3.80-5.40); WBC 18.1 k/uL (3.8-10.6); WBC (Perox) 18.52
[2016-07-29 11:20] LABS: Calcium 8.1 mg/dL (8.4-10.2); Potassium 4.8 mmol/L (3.5-5.1); Total Bilirubin 0.3 mg/dL (0.2-1.3); Total Protein 4.7 g/dL (6.3-8.2)
[2016-07-29 11:25] LABS: INR 2.8 (<1.1); Prothrombin Time 26.5 sec (9.0-12.0)
[2016-07-29 11:43] LABS: Glucose,Whole Blood 132 mg/dL (75-99)
[2016-07-29 11:53] VITALS: PULSE 73
--- NOTE | 2016-07-29 12:53 | P.DS ---
Providers Date of admission: 07/13/16 17:12 Expected date of discharge: 07/29/16 Attending physician: Geoffrey Veliz Consults: 07/14/16 17:09 Consult Physician Routine Consulting Provider: Felipe Pittman Consult Reason/Comments: pneumonia Do you want consulting provider notified?: Yes 07/14/16 17:10 Consult Physician Routine Consulting Provider: Mohan Wild Consult Reason/Comments: pneumonia, R groin wound Do you want consulting provider notified?: Yes 07/15/16 14:13 Consult Physician Routine Consulting Provider: Hoang García Consult Reason/Comments: Left groin seroma and blood clots Do you want consulting provider notified?: Yes 07/24/16 09:29 Consult Physician Urgent Consulting Provider: Hoang García Consult Reason/Comments: Sudden onset left foot swollen painful Do you want consulting provider notified?: Yes Primary care physician: Maria Luisa Bland Hospital Course: Discharge diagnosis #1 MRSA bacterial pneumonia with sepsis present on admission: bronchoscopy during this admission. Pulmonary infectious disease following. Bronchial culture growing MRSA with yeast and fungal hyphae. Patient is currently on vancomycin. Infectious disease recommends vancomycin 2000 mg IV every 48 hours dispensing and14 bags. The yeast in the sputum and bronchial culture did not require treatment per infectious disease #2 acute systolic congestive heart failure exacerbation: Elevated BNP level on admission. Patient receiving oral Lasix. #3 urinary tract infection : Urine culture Enterobacter cloacae and pseudomonas aeruginosa. Continue current antibiotics. Dr. Wild following. Continue Levaquin 750 mg by mouth every 48 hours dispensing 4 tablets per infectious disease recommendation #4 left groin surgical wound infection with known history of seroma. Evaluated by Dr. García. Continue current wound care #5 chronic atrial fibrillation : On Coumadin INR therapeutic at 2.8 #6 recent left lower extremity arterial occlusion requiring surgical intervention by vascular surgery Dr. García #7 diabetes mellitus type 2 on insulin drip secondary to steroids. Steroids have been tapered down anticipate improvement in sugars. We'll make further adjustments in insulin at that time. #8 severe protein calorie malnutrition: Start protein supplement poor nutritional status was decreased albumin 2.6 will have a nutrition consult #9 iron deficiency anemia and chronic anemia : With history of GI bleed and unable to proceed with colonoscopy due to multiple complications had EGD at [facility] a few months ago that was unremarkable. Iron normal at 97. Continue with her ferrous sulfate. Patient did receive a unit of blood during this admission. Hemoglobin 7.7. Stool for occult blood negative. Monitor daily CBC. Patient did require blood transfusion during this admission #10 acute exacerbation of chronic obstructive pulmonary disease continue steroids and bronchodilators. Pulmonary service tapered Solu-Medrol to 40 mg IV every 12 #11 acute kidney injury: BUN at discharge elevated 81 and creatinine 1.12. We' ll monitor BMP twice a week 3 weeks. Monitor closely well on vancomycin. #12 bacteremia with one blood culture positive coagulase negative staph repeat blood cultures negative 13 essential hypertension #14 one positive blood culture for Staphylococcus epidermidis otherwise repeat blood cultures are negative. Therefore this is likely contamination Hospital course This is a 76-year-old female who presented to the hospital worsening shortness of breath and productive cough. She started on IV antibiotics and IV steroids for pneumonia and COPD exacerbation. She did require bronchoscopy during this admission pulmonary service was watching closely. Bronchial wash grew MRSA with yeast and fungal hyphae. She is also followed by infectious disease. Started on IV vancomycin for the MRSA. She was also placed on Levaquin for a UTI. Urine culture had grown Enterobacter and pseudomonas aeruginosa. Infectious diseases recommending to continue the vancomycin IV every 48 hours dispensing 14 bags in the Levaquin 750 mg's by mouth every 48 hours dispensing 4 tablets. Patient's symptoms are showing improvement. She is able to be switched over to oral prednisone. She's been cleared by pulmonary and infectious disease for discharge. As stated above we will be checking routine labs CBC, BMP, PT/INR twice a week 3 weeks. Monitor closely. Make further adjustments as needed. Patient is medical stable for discharge. She'll be discharged back to [facility]. Patient Condition at Discharge: Stable Plan - Discharge Summary New Discharge Prescriptions: New Levofloxacin [Levaquin] 750 mg PO Q48H #4 tab Vancomycin 2,000 mg IVPB Q48H #14 bag Allopurinol [Zyloprim] 100 mg PO DAILY tab guaiFENesin [Mucinex] 1,200 mg PO Q12HR #14 tab predniSONE 10 mg PO DIRECTED #18 tab Warfarin Sodium [Coumadin] 2 mg PO DAILY #30 tablet Continue Pravastatin Sodium [Pravachol] 20 mg PO HS Montelukast Sodium [Singulair] 10 mg PO HS Metoprolol Succinate [Toprol XL] 200 mg PO BID Losartan Potassium [Cozaar] 50 mg PO HS Ipratropium-Albuterol Nebulize [Duoneb 0.5 mg-3 mg/3 ml Soln] 3 ml INHALATION RT-QID ampul.neb Digoxin [Lanoxin] 125 mcg PO DAILY tab Docusate [Colace] 100 mg PO BID cap Ferrous Sulfate [Iron (65 MG Elemental)] 325 mg PO BID tab Insulin Detemir [Levemir] 50 unit SQ DAILY vial Polyethylene Glycol 3350 [Miralax] 17 gm PO HS powd.pack Furosemide [Lasix] 40 mg PO BID Budesonide [Pulmicort] 1 mg INHALATION RT-BID Insulin Detemir [Levemir] 25 unit SQ HS INSULIN LISPRO (humaLOG) [humaLOG (formulary)] 8 unit SQ AC-SUPPER INSULIN LISPRO (humaLOG) [humaLOG (formulary)] 10 unit SQ AC-LUNCH INSULIN LISPRO (humaLOG) [humaLOG (formulary)] 10 unit SQ AC-BRKFST Milk Of Magnesia 1200mg/15ml 2,400 mg PO Q72H PRN PRN Reason: Constipation ALPRAZolam [Xanax] 0.25 mg PO Q12HR #60 HYDROcodone/APAP 10-325MG [[place] 10-325] 1 tab PO Q4HR PRN #60 tab PRN Reason: Pain Discharge Medication List Losartan Potassium [Cozaar] 50 mg PO HS 04/27/16 [History] Metoprolol Succinate [Toprol XL] 200 mg PO BID 04/27/16 [History] Montelukast Sodium [Singulair] 10 mg PO HS 04/27/16 [History] Pravastatin Sodium [Pravachol] 20 mg PO HS 04/27/16 [History] Ipratropium-Albuterol Nebulize [Duoneb 0.5 mg-3 mg/3 ml Soln] 3 ml INHALATION RT -QID ampul.neb 05/13/16 [Rx] Digoxin [Lanoxin] 125 mcg PO DAILY tab 06/18/16 [Rx] Docusate [Colace] 100 mg PO BID cap 06/18/16 [Rx] Ferrous Sulfate [Iron (65 MG Elemental)] 325 mg PO BID tab 06/18/16 [Rx] Insulin Detemir [Levemir] 50 unit SQ DAILY vial 06/18/16 [Rx] Polyethylene Glycol 3350 [Miralax] 17 gm PO HS powd.pack 06/18/16 [Rx] Budesonide [Pulmicort] 1 mg INHALATION RT-BID 07/13/16 [History] Furosemide [Lasix] 40 mg PO BID 07/13/16 [History] INSULIN LISPRO (humaLOG) [humaLOG (formulary)] 8 unit SQ AC-SUPPER 07/13/16 [ History] INSULIN LISPRO (humaLOG) [humaLOG (formulary)] 10 unit SQ AC-BRKFST 07/13/16 [ History] INSULIN LISPRO (humaLOG) [humaLOG (formulary)] 10 unit SQ AC-LUNCH 07/13/16 [ History] Insulin Detemir [Levemir] 25 unit SQ HS 07/13/16 [History] Milk Of Magnesia 1200mg/15ml 2,400 mg PO Q72H PRN 07/13/16 [History] Levofloxacin [Levaquin] 750 mg PO Q48H #4 tab 07/26/16 [Rx] Vancomycin 2,000 mg IVPB Q48H #14 bag 07/26/16 [Rx] ALPRAZolam [Xanax] 0.25 mg PO Q12HR #60 07/29/16 [Rx] Allopurinol [Zyloprim] 100 mg PO DAILY tab 07/29/16 [Rx] HYDROcodone/APAP 10-325MG [[place] 10-325] 1 tab PO Q4HR PRN #60 tab 07/29/16 [Rx] Warfarin Sodium [Coumadin] 2 mg PO DAILY #30 tablet 07/29/16 [Rx] guaiFENesin [Mucinex] 1,200 mg PO Q12HR #14 tab 07/29/16 [Rx] predniSONE 10 mg PO DIRECTED #18 tab 07/29/16 [Rx] Follow up Appointment(s)/Referral(s): Felipe Pittman MD [STAFF PHYSICIAN] - 1 Week Maria Luisa Bland MD [Primary Care Provider] - 1 Week Hoang García MD [STAFF PHYSICIAN] - 1 Week Ambulatory/Diagnostic Orders: Basic Metabolic Panel [LAB.AMB] Location: Determined By Patient Complete Blood Count w/diff [LAB.AMB] Location: Determined By Patient Vancomycin,Trough [LAB.AMB] Location: Determined By Patient Patient Instructions/Handouts: Heart Failure (DC), Type 2 Diabetes in Adults ( DC) Activity/Diet/Wound Care/Special Instructions: Diet: cardiac, diabetic Activity: as tolerated Discharge to [facility] Discharge Disposition: TRANSFER TO SNF/F
[2016-07-29] MEDS ORDERED: VANCOMYCIN TROUGH DUE 1 EACH MISC MISCELLANE ONE (17:00)
--- NOTE | 2016-07-29 19:58 | PN ---
DATE OF SERVICE: 07/28/2016 Patient seen, evaluated, examined. Clinically patient is doing well. Cough, congestion and shortness of breath are stable but still present. Overall generalized weakness is present. Patient is, however, undergoing physical therapy. She is able to sit upright in the bed, though. Her hemodynamic status is marginal but stable. Saturations at 2 L oxygen are 92%. Blood pressure 137/63, respiratory rate 16, pulse 76, temperature 97. HEENT EXAMINATION: Otherwise atraumatic, normocephalic. Pharynx is clear. Narrow pharyngeal opening is present. NECK: Supple without lymphadenopathy, jugular venous distention or carotid bruit. LUNGS: Bilateral good air entry. HEART: Regular rate, rhythm. S1, S2 audible. ABDOMEN: Soft. EXTREMITIES: Trace edema. NEUROLOGICAL EXAMINATION: Otherwise awake and alert. Labs reviewed. Medications reviewed as well. White cell count is 17,000, hemoglobin 8.2, hematocrit 27, platelet count of 226,000. BUN and creatinine are 76 and 1.02. Current medications reviewed as well. IMPRESSION: 1. Bilateral pneumonia related to methicillin-resistant Staphylococcus aureus, on broad-spectrum antibiotics. ID Service is following along with us. Respiratory status is almost coming back to baseline. 2. Congestive heart failure related to chronic systolic heart failure. Continue gentle diuresis, optimization of medical therapy. 3. Left groin wound infection and seroma with arterial disease. 4. Chronic atrial fibrillation; anticoagulation with Coumadin. 5. Type 2 diabetes mellitus with hyperglycemia related to steroids, which are being tapered down. PLAN: To continue to taper down the steroids. Continue breathing treatments. Continue antibiotics. Increase activity as tolerated. Will follow. Overall it appears that patient likely will be discharged. Will follow up in outpatient setting.
== END 2016-07-29 14:45 | DRG 853 ==
LOC: EC 14:54 → 4MS4W 17:12
PROVIDERS: ADMIT Internal Medicine; ATTEND Internal Medicine
PROC: 0B9F8ZX Drainage of Right Lower Lung Lobe, Via Natural or Artificial Opening Endoscopic, Diagnostic (ICD-10-PCS; 2016-07-16)
PROC: 30233N1 Transfusion of Nonautologous Red Blood Cells into Peripheral Vein, Percutaneous Approach (ICD-10-PCS; 2016-07-16)
PROC: 0B9J8ZX Drainage of Left Lower Lung Lobe, Via Natural or Artificial Opening Endoscopic, Diagnostic (ICD-10-PCS; principal; 2016-07-16 09:15)
DX: A41.02 Sepsis due to Methicillin resistant Staphylococcus aureus (principal); E43 Unspecified severe protein-calorie malnutrition; J96.21 Acute and chronic respiratory failure with hypoxia; J96.22 Acute and chronic respiratory failure with hypercapnia; J15.212 Pneumonia due to Methicillin resistant Staphylococcus aureus; I50.23 Acute on chronic systolic (congestive) heart failure; N17.9 Acute kidney failure, unspecified; J44.0 Chronic obstructive pulmonary disease with (acute) lower respiratory infection; I13.0 Hypertensive heart and chronic kidney disease with heart failure and stage 1 through stage 4 chronic kidney disease, or unspecified chronic kidney disease; J45.31 Mild persistent asthma with (acute) exacerbation; E11.65 Type 2 diabetes mellitus with hyperglycemia; E66.2 Morbid (severe) obesity with alveolar hypoventilation; J44.1 Chronic obstructive pulmonary disease with (acute) exacerbation; N39.0 Urinary tract infection, site not specified; T81.4XXA Infection following a procedure, initial encounter; E11.22 Type 2 diabetes mellitus with diabetic chronic kidney disease; I48.2 Chronic atrial fibrillation; D50.9 Iron deficiency anemia, unspecified; B95.2 Enterococcus as the cause of diseases classified elsewhere; B96.5 Pseudomonas (aeruginosa) (mallei) (pseudomallei) as the cause of diseases classified elsewhere; E78.5 Hyperlipidemia, unspecified; I73.9 Peripheral vascular disease, unspecified; N18.3 Chronic kidney disease, stage 3 (moderate); T38.0X5A Adverse effect of glucocorticoids and synthetic analogues, initial encounter; Z79.01 Long term (current) use of anticoagulants; Z79.4 Long term (current) use of insulin; Z79.899 Other long term (current) drug therapy; Z85.820 Personal history of malignant melanoma of skin; Z87.01 Personal history of pneumonia (recurrent); Z87.891 Personal history of nicotine dependence; Z99.81 Dependence on supplemental oxygen; Z88.0 Allergy status to penicillin; Z68.37 Body mass index [BMI] 37.0-37.9, adult
CPT/HCPCS: 31624; 36415; 71010; 71020; 80048; 80053; 80202; 81001; 82272; 82728; 83036; 83540; 83550; 83605; 83735; 83880; 84550; 85025; 85027; 85610; 85730; 86850; 86900; 86901; 86920; 87040; 87070; 87077; 87086; 87102; 87116; 87186; 87205; 87206; 87252; 87299; 87496; 87498; 87502; 87529; 87541; 87798; 88108; 88305; 93005; 94640; 94660; 94667; 94668; 94760; 96365; 96375; 99291

== ENCOUNTER 2016-08-04 16:47 | Inpatient (IN) | payer MEDICARE, BC ==
--- NOTE | 2016-08-04 17:19 | ED ---
General Adult HPI - General Chief complaint: Recheck/Abnormal Lab/Rx Stated complaint: Abnormal Labs Time Seen by Provider: 08/04/16 16:57 Source: patient, RN notes reviewed, old records reviewed Mode of arrival: EMS Limitations: physical limitation - History of Present Illness Initial comments: This is a pleasant 76-year-old female presenting to the emergency department with uncertainty why she was sent to the emergency department today. Patient reports that her nurse practitioner at [facility] told her that she had abnormal lab values, including an increased INR. Patient reports that she is on Coumadin for chronic A. fib. Patient reports that she has recently been discharged from the hospital with diagnosis of MRSA causing bilateral pneumonia , a surgical wound in her left groin from a previous blood clot removal procedure, anemia. Patient reports that she seemed to be doing better with her breathing since being at [facility]. Patient states that she does feel very weak however nothing different from her baseline. Patient reports that she also has some left foot pain over the past day. She denies any specific injury. She reports that she's been having this left foot pain off and on for the past month or so. Patient denies any recent fever or chills. She is currently being managed with IV vancomycin, prednisone, and Levaquin for urinary tract infection. - Related Data Home Medications Medication Instructions Recorded Confirmed Losartan Potassium [Cozaar] 50 mg PO HS 04/27/16 08/04/16 Metoprolol Succinate [Toprol XL] 200 mg PO BID 04/27/16 08/04/16 Montelukast Sodium [Singulair] 10 mg PO HS 04/27/16 08/04/16 Pravastatin Sodium [Pravachol] 20 mg PO HS 04/27/16 08/04/16 Budesonide [Pulmicort] 1 mg INHALATION RT-BID 07/13/16 08/04/16 Furosemide [Lasix] 40 mg PO DAILY 07/13/16 08/04/16 INSULIN LISPRO (humaLOG) [humaLOG 10 unit SQ AC-BRKFST 07/13/16 08/04/16 (formulary)] Insulin Detemir [Levemir] 10 unit SQ HS 07/13/16 08/04/16 INSULIN LISPRO (humaLOG) [HumaLOG] See Protocol SQ ACHS 08/04/16 08/04/16 Insulin Detemir [Levemir] 30 unit SQ QAM 08/04/16 08/04/16 Magnesium Hydroxide [Milk of 2,400 mg PO Q72H PRN 08/04/16 08/04/16 Magnesia Concentrate] Promethazine HCl 12.5 mg PO Q6H PRN 08/04/16 08/04/16 Vancomycin 1,250 mg IVPB HS 08/04/16 08/04/16 predniSONE See Taper PO DAILY 08/04/16 08/04/16 Previous Rx's Medication Instructions Recorded Ipratropium-Albuterol Nebulize 3 ml INHALATION RT-QID ampul.neb 05/13/16 [Duoneb 0.5 mg-3 mg/3 ml Soln] Digoxin [Lanoxin] 125 mcg PO DAILY tab 06/18/16 Docusate [Colace] 100 mg PO BID cap 06/18/16 Ferrous Sulfate [Iron (65 MG 325 mg PO BID tab 06/18/16 Elemental)] Polyethylene Glycol 3350 [Miralax] 17 gm PO HS powd.pack 06/18/16 Levofloxacin [Levaquin] 750 mg PO Q48H #4 tab 07/26/16 ALPRAZolam [Xanax] 0.25 mg PO Q12HR #60 07/29/16 Allopurinol [Zyloprim] 100 mg PO DAILY tab 07/29/16 HYDROcodone/APAP 10-325MG [[place] 1 tab PO Q4HR PRN #60 tab 07/29/16 10-325] Warfarin Sodium [Coumadin] 2 mg PO DAILY #30 tablet 07/29/16 guaiFENesin [Mucinex] 1,200 mg PO Q12HR #14 tab 07/29/16 Allergies Allergy/AdvReac Type Severity Reaction Status Date / Time Penicillins Allergy Rash/Hives Verified 08/04/16 16:49 Review of Systems ROS Statement: Those systems with pertinent positive or pertinent negative responses have been documented in the HPI. ROS Other: All systems not noted in ROS Statement are negative. Past Medical History Past Medical History: Atrial Fibrillation, Asthma, Heart Failure, CVA/TIA, Diabetes Mellitus, Deep Vein Thrombosis (DVT), GI Bleed, Hyperlipidemia, Hypertension, Pneumonia Additional Past Medical History / Comment(s): Pt was recently admitted 04/27/16 with L leg ischemia, aucte blood loss anemia-suspect lower GI bleed, acute on chronic CHF, pneumonia with sepsis, exacerbation COPD. Other hx; CVAs-if tired will have slight speech change and chokes easily, chronic CHF, IDDM type II, bilateral cataracts, chronic anemia, 2014 vented for 3 months. Was discharged on to the [facility]. Re-admitted to hospital with pneumonia and groin infection was d/c back to [facility] 06/18/2016. History of Any Multi-Drug Resistant Organisms: MRSA Date of last positivie culture/infection: 07/16/16 MDRO Source:: BRONCH WASH AND SPUTUM Past Surgical History: Back Surgery, Breast Surgery, Hysterectomy Additional Past Surgical History / Comment(s): 05/18/16 thrombectomy/ endartectomy L common femoral artery, thoracic surgery in which a drainage tube was placed in her R lung due to pneumothorax, cyst removed from breast, L hip pain stimulator, EGD 03/2016 at [facility], melanoma removals. Past Anesthesia/Blood Transfusion Reactions: No Reported Reaction Additional Past Anesthesia/Blood Transfusion Reaction / Comment(s): Pt received blood with last admission without reaction. Past Psychological History: No Psychological Hx Reported Additional Psychological History / Comment(s): Pt currently living at [facility]. She just started standing with rails and assist. She is very weak. Has become during previous hospital stay. Tobacco smoker until 3 years ago. No experience. No travel history. No animal exposures Smoking Status: Former smoker Past Alcohol Use History: None Reported Additional Past Alcohol Use History / Comment(s): Pt started smoking in 1 and quit in 2014 Past Drug Use History: None Reported - Past Family History Mother Family Medical History: Diabetes Mellitus Father Additional Family Medical History / Comment(s): Father had heart problems. General Exam - General Exam Comments Initial Comments: 76-year-old female. Patient is labored in her breathing, wearing oxygen. Limitations: physical limitation General appearance: alert, in no apparent distress Head exam: Present: atraumatic, normocephalic, normal inspection Eye exam: Present: normal appearance, PERRL, EOMI. Absent: scleral icterus, conjunctival injection, periorbital swelling ENT exam: Present: normal exam, mucous membranes moist Neck exam: Present: normal inspection. Absent: tenderness, meningismus, lymphadenopathy Respiratory exam: Present: normal lung sounds bilaterally, wheezes (Bilateral wheezing). Absent: respiratory distress, rales, rhonchi, stridor Cardiovascular Exam: Present: regular rate, normal rhythm, normal heart sounds. Absent: systolic murmur, diastolic murmur, rubs, gallop, clicks GI/Abdominal exam: Present: soft, normal bowel sounds. Absent: distended, tenderness, guarding, rebound, rigid Extremities exam: Present: normal inspection, full ROM, normal capillary refill , other (Foot swelling. Right foot is wrapped with an Martín wrap.). Absent: tenderness, pedal edema, joint swelling, calf tenderness Back exam: Present: normal inspection, full ROM Neurological exam: Present: alert, oriented X3, CN II-XII intact Psychiatric exam: Present: normal affect, normal mood Skin exam: Present: warm, dry, intact, pallor, other (Patient has evidence of left groin wound from previous procedure. This is being managed by Dr. García. ). Absent: normal color, rash Course Vital Signs 08/04/16 08/04/16 08/04/16 16:49 18:09 18:18 Temperature 98.3 F Pulse Rate 83 77 92 Respiratory 26 H 24 Rate Blood Pressure 149/86 138/69 O2 Sat by Pulse 99 96 Oximetry Medical Decision Making - Medical Decision Making This is a pleasant 76-year-old female presenting to the emergency department with uncertainty why she was sent to the emergency department today. Patient reports that her nurse practitioner at [facility] told her that she had abnormal lab values, including an increased INR. Patient reports that she has recently been discharged from the hospital with diagnosis of MRSA causing bilateral pneumonia, a surgical wound in her left groin from a previous blood clot removal procedure, anemia. Patient reports that she seemed to be doing better with her breathing since being at [facility]. Patient states that she does feel very weak however nothing different from her baseline. Patient reports that she also has some left foot pain over the past day. She denies any specific injury. She reports that she's been having this left foot pain off and on for the past month or so. Patient denies any recent fever or chills. She is currently being managed with IV vancomycin, prednisone, and Levaquin for urinary tract infection. Patient's lab work was reviewed, and has elevated INR of 7.2. Patient also has decreased hemoglobin of 6.9. Patient will be receiving 1 unit of blood and 10 mg of vitamin K. Patient will be admitted and continued on her antibiotic regimen and IV vancomycin for MRSA pneumonia and Levaquin for urinary tract infection. Patient's fecal occult is positive, we will consult GI. Discussed this case with Dr. Bray who discussed this with Dr. Parrish. - Lab Data Result diagrams: 08/04/16 17:10 08/04/16 17:10 Lab Results 08/04/16 08/04/16 08/04/16 Range/Units 17:10 17:10 17:10 WBC 8.9 (3.8-10.6) k/uL RBC 2.42 L (3.80-5.40) m/uL Hgb 6.9 L* (11.4-16.0) gm/dL Hct 23.2 L (34.0-46.0) % MCV 95.5 (80.0-100.0) fL MCH 28.6 (25.0-35.0) pg MCHC 29.9 L (31.0-37.0) g/dL RDW 18.2 H (11.5-15.5) % Plt Count 127 L (150-450) k/uL Neutrophils % 91 % Lymphocytes % 4 % Monocytes % 4 % Eosinophils % 0 % Basophils % 0 % Neutrophils # 8.1 H (1.3-7.7) k/uL Lymphocytes # 0.3 L (1.0-4.8) k/uL Monocytes # 0.3 (0-1.0) k/uL Eosinophils # 0.0 (0-0.7) k/uL Basophils # 0.0 (0-0.2) k/uL Hypochromasia Marked Anisocytosis Slight Macrocytosis Slight PT (9.0-12.0) sec INR (<1.1) APTT (22.0-30.0) sec Sodium 134 L (137-145) mmol/L Potassium 4.9 (3.5-5.1) mmol/L Chloride 105 (98-107) mmol/L Carbon Dioxide 23 (22-30) mmol/L Anion Gap 6 mmol/L BUN 46 H (7-17) mg/dL Creatinine 0.89 (0.52-1.04) mg/dL Est GFR (MDRD) Af Amer >60 (>60 ml/min/1.73 sqM) Est GFR (MDRD) Non-Af >60 (>60 ml/min/1.73 sqM) Glucose 100 H (74-99) mg/dL Plasma Lactic Acid Good (0.7-2.0) mmol/L Calcium 7.7 L (8.4-10.2) mg/dL Magnesium 2.1 (1.6-2.3) mg/dL Total Bilirubin 0.2 (0.2-1.3) mg/dL AST 17 (14-36) U/L ALT 28 (9-52) U/L Alkaline Phosphatase 43 (38-126) U/L Total Creatine Kinase <20 L (30-135) U/L CK-MB (CK-2) 0.8 (0.0-2.4) ng/mL CK-MB (CK-2) Rel Index 0.0 Troponin I 0.031 (0.000-0.034) ng/mL NT-Pro-B Natriuret Pep pg/mL Total Protein 4.4 L (6.3-8.2) g/dL Albumin 2.1 L (3.5-5.0) g/dL Urine Color Urine Appearance (Clear) Urine pH (5.0-8.0) Ur Specific [place] (1.001-1.035) Urine Protein (Negative) Urine Glucose (UA) (Negative) Urine Ketones (Negative) Urine Blood (Negative) Urine Nitrite (Negative) Urine Bilirubin (Negative) Urine Urobilinogen (<2.0) mg/dL Ur Leukocyte Esterase (Negative) Urine RBC (0-5) /hpf Urine WBC (0-5) /hpf Ur Squamous Epith Cells (0-4) /hpf Amorphous Sediment (None) /hpf Urine Bacteria (None) /hpf Urine Mucus (None) /hpf 08/04/16 08/04/16 08/04/16 Range/Units 17:10 17:10 17:10 WBC (3.8-10.6) k/uL RBC (3.80-5.40) m/uL Hgb (11.4-16.0) gm/dL Hct (34.0-46.0) % MCV (80.0-100.0) fL MCH (25.0-35.0) pg MCHC (31.0-37.0) g/dL RDW (11.5-15.5) % Plt Count (150-450) k/uL Neutrophils % % Lymphocytes % % Monocytes % % Eosinophils % % Basophils % % Neutrophils # (1.3-7.7) k/uL Lymphocytes # (1.0-4.8) k/uL Monocytes # (0-1.0) k/uL Eosinophils # (0-0.7) k/uL Basophils # (0-0.2) k/uL Hypochromasia Anisocytosis Macrocytosis PT 73.5 H (9.0-12.0) sec INR 7.2 H* (<1.1) APTT 55.9 H (22.0-30.0) sec Sodium (137-145) mmol/L Potassium (3.5-5.1) mmol/L Chloride (98-107) mmol/L Carbon Dioxide (22-30) mmol/L Anion Gap mmol/L BUN (7-17) mg/dL Creatinine (0.52-1.04) mg/dL Est GFR (MDRD) Af Amer (>60 ml/min/1.73 sqM) Est GFR (MDRD) Non-Af (>60 ml/min/1.73 sqM) Glucose (74-99) mg/dL Plasma Lactic Acid Good 1.6 (0.7-2.0) mmol/L Calcium (8.4-10.2) mg/dL Magnesium (1.6-2.3) mg/dL Total Bilirubin (0.2-1.3) mg/dL AST (14-36) U/L ALT (9-52) U/L Alkaline Phosphatase (38-126) U/L Total Creatine Kinase (30-135) U/L CK-MB (CK-2) (0.0-2.4) ng/mL CK-MB (CK-2) Rel Index Troponin I (0.000-0.034) ng/mL NT-Pro-B Natriuret Pep 6180 pg/mL Total Protein (6.3-8.2) g/dL Albumin (3.5-5.0) g/dL Urine Color Urine Appearance (Clear) Urine pH (5.0-8.0) Ur Specific [place] (1.001-1.035) Urine Protein (Negative) Urine Glucose (UA) (Negative) Urine Ketones (Negative) Urine Blood (Negative) Urine Nitrite (Negative) Urine Bilirubin (Negative) Urine Urobilinogen (<2.0) mg/dL Ur Leukocyte Esterase (Negative) Urine RBC (0-5) /hpf Urine WBC (0-5) /hpf Ur Squamous Epith Cells (0-4) /hpf Amorphous Sediment (None) /hpf Urine Bacteria (None) /hpf Urine Mucus (None) /hpf 08/04/16 Range/Units 17:25 WBC (3.8-10.6) k/uL RBC (3.80-5.40) m/uL Hgb (11.4-16.0) gm/dL Hct (34.0-46.0) % MCV (80.0-100.0) fL MCH (25.0-35.0) pg MCHC (31.0-37.0) g/dL RDW (11.5-15.5) % Plt Count (150-450) k/uL Neutrophils % % Lymphocytes % % Monocytes % % Eosinophils % % Basophils % % Neutrophils # (1.3-7.7) k/uL Lymphocytes # (1.0-4.8) k/uL Monocytes # (0-1.0) k/uL Eosinophils # (0-0.7) k/uL Basophils # (0-0.2) k/uL Hypochromasia Anisocytosis Macrocytosis PT (9.0-12.0) sec INR (<1.1) APTT (22.0-30.0) sec Sodium (137-145) mmol/L Potassium (3.5-5.1) mmol/L Chloride (98-107) mmol/L Carbon Dioxide (22-30) mmol/L Anion Gap mmol/L BUN (7-17) mg/dL Creatinine (0.52-1.04) mg/dL Est GFR (MDRD) Af Amer (>60 ml/min/1.73 sqM) Est GFR (MDRD) Non-Af (>60 ml/min/1.73 sqM) Glucose (74-99) mg/dL Plasma Lactic Acid Good (0.7-2.0) mmol/L Calcium (8.4-10.2) mg/dL Magnesium (1.6-2.3) mg/dL Total Bilirubin (0.2-1.3) mg/dL AST (14-36) U/L ALT (9-52) U/L Alkaline Phosphatase (38-126) U/L Total Creatine Kinase (30-135) U/L CK-MB (CK-2) (0.0-2.4) ng/mL CK-MB (CK-2) Rel Index Troponin I (0.000-0.034) ng/mL NT-Pro-B Natriuret Pep pg/mL Total Protein (6.3-8.2) g/dL Albumin (3.5-5.0) g/dL Urine Color Yellow Urine Appearance Cloudy H (Clear) Urine pH 5.0 (5.0-8.0) Ur Specific [place] 1.013 (1.001-1.035) Urine Protein 1+ H (Negative) Urine Glucose (UA) Negative (Negative) Urine Ketones Negative (Negative) Urine Blood Moderate H (Negative) Urine Nitrite Negative (Negative) Urine Bilirubin Negative (Negative) Urine Urobilinogen <2.0 (<2.0) mg/dL Ur Leukocyte Esterase Trace H (Negative) Urine RBC 42 H (0-5) /hpf Urine WBC 6 H (0-5) /hpf Ur Squamous Epith Cells 1 (0-4) /hpf Amorphous Sediment Rare H (None) /hpf Urine Bacteria Many H (None) /hpf Urine Mucus Rare H (None) /hpf 08/04/16 18:28 EKG shows atrial fibrillation. Mental rate of 73 bpm. NM interval 86 months seconds. QT QTc is 334/367 ms. Low voltage QRS. Unable to rule out an anterior Burt septal infarct. - Radiology Data Radiology results: report reviewed There is evidence of congestive heart failure with some patchy atelectasis in both lungs. Chest is slightly worse than last exam. This was read by Dr. Umaña. Disposition Clinical Impression: Chronic anemia, MRSA pneumonia, Diabetes mellitus type 2, uncontrolled, with complications, Elevated INR, Urinary tract infection, HTN (hypertension), COPD ( chronic obstructive pulmonary disease) Disposition: ADMITTED IP TO THIS HOSP Condition: Stable Time of Disposition: 18:20
[2016-08-04 17:33] LABS: Anisocytosis Slight; Basophils % (A) 0 %; CH 28.7; CHCM 30.1; Eosinophils % (A) 0 %; HCT 23.2 % (34.0-46.0); Hypochromasia Marked; Luc # (Auto) 0.12; Luc % (Auto) 1; Lymphocytes # (A) 0.3 k/uL (1.0-4.8); Lymphocytes % (A) 4 %; MCH 28.6 pg (25.0-35.0); MCHC 29.9 g/dL (31.0-37.0); MCV 95.5 fL (80.0-100.0); Macrocytosis Slight; Mean Platelet Volume 8.6; Monocytes # (A) 0.3 k/uL (0-1.0); Monocytes % (A) 4 %; Neutrophils # (A) 8.1 k/uL (1.3-7.7); Neutrophils % (A) 91 %; RBC 2.42 m/uL (3.80-5.40); RDW 18.2 % (11.5-15.5); WBC 8.9 k/uL (3.8-10.6)
[2016-08-04 17:41] LABS: Partial Thromboplastin Time 55.9 sec (22.0-30.0)
[2016-08-04 17:43] LABS: HGB 6.9 gm/dL (11.4-16.0)
[2016-08-04 17:45] LABS: ALT 28 U/L (9-52); AST 17 U/L (14-36); Alkaline Phosphatase 43 U/L (38-126); Anion Gap 6 mmol/L; Blood Urea Nitrogen 46 mg/dL (7-17); Calcium 7.7 mg/dL (8.4-10.2); Carbon Dioxide 23 mmol/L (22-30); Chloride 105 mmol/L (98-107); Glucose 100 mg/dL (74-99); Magnesium 2.1 mg/dL (1.6-2.3); Non-African American GFR(MDRD) >60 (>60 ml/min/1.73 sqM); Potassium 4.9 mmol/L (3.5-5.1); Prothrombin Time 73.5 sec (9.0-12.0); Sodium 134 mmol/L (137-145); Total Bilirubin 0.2 mg/dL (0.2-1.3); Total Protein 4.4 g/dL (6.3-8.2)
[2016-08-04 17:50] LABS: Amorphous Sediment,Urine Rare /hpf; Appearance,Urine Cloudy (Clear); Bacteria,Urine Many /hpf; Bilirubin,Urine Negative (Negative); Glucose,Urine (UA) Negative (Negative); Ketones,Urine Negative (Negative); Leukocyte Esterase,Urine Trace (Negative); Mucus,Urine Rare /hpf; Nitrite,Urine Negative (Negative); Particle Count 17303; Protein,Urine 1+ (Negative); RBC,Urine 42 /hpf (0-5); Specific Gravity,Urine 1.013 (1.001-1.035); Squamous Epithelial Cell,Urine 1 /hpf (0-4); UA Billing (MACRO vs. MICRO) MICRO; Urobilinogen,Urine <2.0 mg/dL (<2.0); WBC,Urine 6 /hpf (0-5)
[2016-08-04 17:53] LABS: INR 7.2 (<1.1)
[2016-08-04] MEDS ORDERED: PHYTONADIONE 10 MG in SODIUM CHLORIDE 0.9% 50 ML IVPB STA (17:59)
[2016-08-04] MEDS ORDERED: IPRATROPIUM-ALBUTEROL 3 ML NEB INHALATION STA (18:00)
--- NOTE | 2016-08-04 18:07 | XR ---
EXAMINATION TYPE: XR chest 2V DATE OF EXAM: 08/04/2016 COMPARISON: 07/28/2016 HISTORY: Fever TECHNIQUE: Frontal and lateral views of the chest are obtained. FINDINGS: There is some pulmonary vascular congestion. Heart is enlarged. There is a neurostimulator in the mid thoracic spine. There is patchy atelectasis in both lungs. Heart is enlarged. IMPRESSION: There is evidence of congestive heart failure with some patchy atelectasis in both lungs . Chest is slightly worse than last exam.
[2016-08-04 18:11] LABS: Creatine Kinase <20 U/L (30-135)
[2016-08-04 18:22] LABS: Creatine Kinase MB 0.8 ng/mL (0.0-2.4); Troponin I 0.031 ng/mL (0.000-0.034)
[2016-08-04] MEDS ORDERED: NALOXONE 0.4 MG/ML 1 ML VIAL IV PRN (18:31)
[2016-08-04] MEDS ORDERED: VANCOMYCIN 1,000 MG VIAL IVPB SCH (18:45)
[2016-08-04] MEDS: SODIUM CHLORIDE 0.9% 1,000 ML IV SCH (19:00)
[2016-08-04] MEDS ORDERED: IV VANCOMYCIN PER PHARMACY 1 EACH MISC MISCELLANE PRN (19:04)
[2016-08-04] MEDS ORDERED: PNEUMONIA PROTOCOL UTILIZED 1 EACH MISC PO PRN (19:06)
[2016-08-04] MEDS: HYDROmorphone 1 MG/ML 1 ML SYRINGE IV PRN (20:08)
[2016-08-04] MEDS: BUDESONIDE 1 MG/2 ML NEBU INHALATION SCH (21:49)
[2016-08-04] MEDS: MONTELUKAST 10 MG TAB PO SCH (23:35)
[2016-08-04] MEDS: FERROUS SULFATE 325 MG TAB PO SCH (23:35)
[2016-08-04] MEDS: LEVOFLOXACIN 750 MG TAB PO SCH (23:35)
[2016-08-04] MEDS: METOPROLOL SUCCINATE (ER) 100 MG TAB.ER.24H PO SCH (23:36)
[2016-08-04] MEDS: PRAVASTATIN SODIUM 20 MG TAB PO SCH (23:36)
[2016-08-04] MEDS: DOCUSATE 100 MG CAP PO SCH ×2 (23:36→23:42)
[2016-08-04] MEDS: ALPRAZolam 0.25 MG TAB PO SCH (23:36)
[2016-08-05] MEDS: AZTREONAM 2 GM in SODIUM CHLORIDE 0.9% 100 ML IVPB SCH ×2 (00:33→09:06)
[2016-08-05] MEDS: LOSARTAN 50 MG TAB PO SCH ×2 (00:33→20:15)
[2016-08-05] MEDS: FUROSEMIDE 40 MG TAB PO SCH ×2 (00:33→09:15)
[2016-08-05] MEDS: IPRATROPIUM-ALBUTEROL 3 ML NEB INHALATION PRN ×3 (00:57→11:35)
[2016-08-05 01:05] LABS: Glucose,Whole Blood 118 mg/dL (75-99)
[2016-08-05] MEDS: SODIUM CHLORIDE 0.9% 1,000 ML IV SCH ×2 (02:19→16:18)
[2016-08-05 06:02] LABS: Anisocytosis Slight; Basophils % (A) 0 %; CH 29.1; CHCM 31.2; Eosinophils % (A) 0 %; HCT 25.6 % (34.0-46.0); Hypochromasia Moderate; Luc # (Auto) 0.13; Luc % (Auto) 2; Lymphocytes # (A) 0.6 k/uL (1.0-4.8); Lymphocytes % (A) 7 %; MCH 29.1 pg (25.0-35.0); MCHC 31.1 g/dL (31.0-37.0); MCV 93.7 fL (80.0-100.0); Mean Platelet Volume 8.1; Monocytes # (A) 0.3 k/uL (0-1.0); Monocytes % (A) 3 %; Neutrophils # (A) 7.2 k/uL (1.3-7.7); Neutrophils % (A) 88 %; RBC 2.73 m/uL (3.80-5.40); RDW 17.8 % (11.5-15.5); WBC 8.2 k/uL (3.8-10.6); WBC (Perox) 8.67
[2016-08-05 06:03] LABS: Glucose,Whole Blood 93 mg/dL (75-99)
[2016-08-05 06:16] LABS: Anion Gap 7 mmol/L; Blood Urea Nitrogen 47 mg/dL (7-17); Calcium 7.9 mg/dL (8.4-10.2); Carbon Dioxide 23 mmol/L (22-30); Chloride 106 mmol/L (98-107); Glucose 80 mg/dL (74-99); Non-African American GFR(MDRD) >60 (>60 ml/min/1.73 sqM); Potassium 4.8 mmol/L (3.5-5.1); Sodium 136 mmol/L (137-145)
[2016-08-05] MEDS: INSULIN LISPRO (humaLOG) 300 UNIT/3 ML VIAL SQ SCH ×3 (06:26→17:30)
[2016-08-05 06:28] LABS: INR 1.4 (<1.1); Prothrombin Time 13.3 sec (9.0-12.0)
[2016-08-05] MEDS: BUDESONIDE 1 MG/2 ML NEBU INHALATION SCH ×2 (07:17→20:30)
[2016-08-05] MEDS: FERROUS SULFATE 325 MG TAB PO SCH ×2 (07:27→16:18)
[2016-08-05] MEDS: ALPRAZolam 0.25 MG TAB PO SCH ×2 (07:50→20:15)
[2016-08-05] MEDS: ALLOPURINOL 100 MG TAB PO SCH (07:50)
[2016-08-05] MEDS: DOCUSATE 100 MG CAP PO SCH ×2 (07:50→20:16)
[2016-08-05] MEDS: METOPROLOL SUCCINATE (ER) 100 MG TAB.ER.24H PO SCH ×2 (07:50→20:15)
[2016-08-05] MEDS: DIGOXIN 125 MCG TAB PO SCH (07:50)
[2016-08-05] MEDS: PANTOPRAZOLE 40 MG/10 ML VIAL IV SCH (07:51)
[2016-08-05] MEDS: Acetaminophen-Codeine 300-30mg TAB PO PRN ×2 (09:30→16:17)
[2016-08-05] MEDS: FUROSEMIDE 10 MG/ML 4 ML VIAL IV SCH ×2 (09:31→20:16)
--- NOTE | 2016-08-05 11:09 | P.CONS ---
History of Present Illness - Reason for Consult Consult date: 08/05/16 Anemia GI bleed Requesting physician: Elda Parrish - History of Present Illness 76-year-old female patient Dr. Bland with a past medical history of diabetes mellitus, nicotine cigarette dependency, atrial fibrillation, hyperlipidemia, hypertension, COPD O2 dependent, asthma, melanoma, and CVA/TIA. Consultation requested for anemia possible GI bleed. Patient was evaluated in April of this year for anemia possible GI bleed. She was evaluated at [facility] February 2016 in regards to anemia and underwent an EGD evaluation which was normal. Last colonoscopy 4-5 years ago. Hospitalization in April was quite prolonged secondary to development of A. fib with RVR and subsequent left lower extremity thrombus requiring thrombectomy. Multiple attempts were made during that time to proceed with a colonoscopy however patient's medical status was not optimized and she was unable to tolerate prep. Hemoccult testing was negative at that time. CBC ranged from 6.6-9.9. Received 5 units of blood. She was discharged on anticoagulation to [facility]. Colonoscopy was deferred to the outpatient setting. CT imaging on 2016 reported a large hematoma along the left lateral flank. Recently hospitalized about 3 weeks ago with MRSA bacterial pneumonia with sepsis underwent bronchoscopy as well as CHF exacerbation and UTI. She has received an additional 3 units of blood including one last night since May making it a total of 8 units of blood since April. Sent yesterday from [facility] upon review of abnormal PT/INR 7.2. Hemoccult stool was positive. Patient denies overt bleeding such as hematemesis hematochezia or melena. Hemoglobin on 07/29/2016 was 8.3. Yesterday was 6.9. Presently 8.0. MCV 94. Platelet 127. INR corrected presently 1.4. BUN 46. Creatinine 0.8. Denies abdominal pain. Short of breath this morning. Review of Systems Constitutional: Denies fever, chills, sweats, weight gain, or loss. HEENT: Negative for migraines, blurred vision or loss, earaches, drainage, tinnitus, oral mucosal lesions, dysphagia, or odynophagia. CARDIAC: Atrial fibrillation. Cigarette dependency. Hyperlipidemia. Hypertension. Denies palpitations. Chest discomfort see HPI. RESPIRATORY: Pneumonia MRSA. Asthma. COPD with home O2 dependent 3 L. shortness of breath see HPI, denies hemoptysis, cough, or sputum production. GI: See HPI for pertinent findings. : Negative for hematuria, urgency, frequency, polyuria, or dysuria. GYNc: Denies possibility of . Negative vaginal discharge. MUSCULOSKELETAL: Pain stimulator left hip. Negative for muscle aches, swelling , arthritis, and arthralgias. NEUROLOGIC: CVA-TIA.. ENDOCRINE: Negative for thyroid problems. Vascular: History Left lower extremity thrombus. SKIN: Melanoma 2. itching. PSYCHIATRIC: Negative history for depression and anxiety All systems: negative (See HPI) Past Medical History Past Medical History: Atrial Fibrillation, Asthma, Heart Failure, CVA/TIA, Diabetes Mellitus, Deep Vein Thrombosis (DVT), GI Bleed, Hyperlipidemia, Hypertension, Pneumonia Additional Past Medical History / Comment(s): Pt was recently admitted 04/27/16 with L leg ischemia, aucte blood loss anemia-suspect lower GI bleed, acute on chronic CHF, pneumonia with sepsis, exacerbation COPD. Other hx; CVAs-if tired will have slight speech change and chokes easily, chronic CHF, IDDM type II, bilateral cataracts, chronic anemia, 2015 vented for 3 months. Was discharged on to the [facility]. Re-admitted to hospital with pneumonia and groin infection was d/c back to [facility] 06/18/2016. History of Any Multi-Drug Resistant Organisms: MRSA Year Discovered:: 07/16/16 MDRO Source:: BRONCH WASH AND SPUTUM Past Surgical History: Back Surgery, Breast Surgery, Hysterectomy Additional Past Surgical History / Comment(s): 05/18/16 thrombectomy/ endartectomy L common femoral artery, thoracic surgery in which a drainage tube was placed in her R lung due to pneumothorax, cyst removed from breast, L hip pain stimulator, EGD 03/2016 at [facility], melanoma removals. Past Anesthesia/Blood Transfusion Reactions: No Reported Reaction Additional Past Anesthesia/Blood Transfusion Reaction / Comm: Pt received blood with last admission without reaction. Past Psychological History: No Psychological Hx Reported Additional Psychological History / Comment(s): Pt currently living at [facility]. She just started standing with rails and assist. She is very weak. Has become during previous hospital stay. Tobacco smoker until 3 years ago. No experience. No travel history. No animal exposures Smoking Status: Former smoker Past Alcohol Use History: None Reported Additional Past Alcohol Use History / Comment(s): Pt started smoking in 1961 and quit in 2014 Past Drug Use History: None Reported - Past Family History Mother Family Medical History: Diabetes Mellitus Father Additional Family Medical History / Comment(s): Father had heart problems. Medications and Allergies Home Medications Medication Instructions Recorded Confirmed Type Losartan Potassium [Cozaar] 50 mg PO HS 04/27/16 08/04/16 History Metoprolol Succinate [Toprol XL] 200 mg PO BID 04/27/16 08/04/16 History Montelukast Sodium [Singulair] 10 mg PO HS 04/27/16 08/04/16 History Pravastatin Sodium [Pravachol] 20 mg PO HS 04/27/16 08/04/16 History Budesonide [Pulmicort] 1 mg INHALATION RT-BID 07/13/16 08/04/16 History Furosemide [Lasix] 40 mg PO DAILY 07/13/16 08/04/16 History INSULIN LISPRO (humaLOG) [humaLOG 10 unit SQ AC-BRKFST 07/13/16 08/04/16 History (formulary)] Insulin Detemir [Levemir] 10 unit SQ HS 07/13/16 08/04/16 History INSULIN LISPRO (humaLOG) [HumaLOG] See Protocol SQ ACHS 08/04/16 08/04/16 History Insulin Detemir [Levemir] 30 unit SQ QAM 08/04/16 08/04/16 History Magnesium Hydroxide [Milk of 2,400 mg PO Q72H PRN 08/04/16 08/04/16 History Magnesia Concentrate] Promethazine HCl 12.5 mg PO Q6H PRN 08/04/16 08/04/16 History Vancomycin 1,250 mg IVPB HS 08/04/16 08/04/16 History predniSONE See Taper PO DAILY 08/04/16 08/04/16 History Allergies Allergy/AdvReac Type Severity Reaction Status Date / Time Penicillins Allergy Rash/Hives Verified 08/04/16 16:49 Physical Exam Vitals: Vital Signs Temp Pulse Pulse Resp BP BP Pulse Ox 08/05/16 07:45 98.0 F 91 18 174/71 99 08/05/16 07:35 88 08/05/16 07:17 92 08/05/16 04:00 97.2 F L 71 18 169/77 98 08/05/16 01:02 88 08/05/16 00:50 88 08/05/16 00:00 97.5 F L 70 18 129/58 98 08/04/16 23:30 97.5 F L 70 18 129/58 98 08/04/16 21:41 97.8 F 77 67 22 167/72 123/74 96 08/04/16 20:57 97.7 F 75 20 159/71 98 08/04/16 20:27 98.2 F 77 20 161/79 08/04/16 20:17 98.3 F 76 20 156/86 08/04/16 20:13 98.7 F 73 20 162/72 08/04/16 18:18 92 08/04/16 18:09 77 24 138/69 96 08/04/16 16:49 98.3 F 83 26 H 149/86 99 Intake and Output 08/04/16 08/05/16 08/05/16 22:59 06:59 14:59 Intake Total 0 310 380 Output Total 30 300 Balance -30 10 380 Intake: IV 200 Sodium Chloride 0.9% 1, 200 000 ml @ 100 mls/hr IV . Q10H SHARONDA Rx#:[id number] Oral 180 Blood Product 0 310 Rc As-1 Unit 0 310 [id number] Output: Urine 30 300 Uretheral (Urrutia) 30 Other: Voiding Method Bedpan Bedpan Diaper Diaper # Voids 2 Weight 117.934 kg 126 kg General appearance: The patient is alert, oriented, mildly short of breath during conversation. HET: Head is normocephalic and atraumatic. Pupils are equal and reactive. Oropharynx is clear without lesions. Neck: Supple without lymphadenopathy. Trachea midline. Heart: S1 S2. Regular rate and rhythm. Lungs: Bibasally crackles with congested cough. Abdomen: Soft, nontender, nondistended with bowel sounds. No peritoneal signs. No palpable organomegaly or masses. Extremities: Left groin wound clean with packing. Normal skin color and turgor. No cyanosis, rash, ulceration, clubbing, or edema. Radial and pedal pulses are 2/4 bilaterally. Neurological: No focal deficits. Strength and sensation are grossly intact. Results CBC & Chem 7: 08/05/16 05:40 08/05/16 05:40 Labs: Abnormal Lab Results - Last 24 Hours (Table) 08/04/16 08/04/16 08/04/16 Range/Units 17:10 17:10 17:10 RBC 2.42 L (3.80-5.40) m/uL Hgb 6.9 L* (11.4-16.0) gm/dL Hct 23.2 L (34.0-46.0) % MCHC 29.9 L (31.0-37.0) g/dL RDW 18.2 H (11.5-15.5) % Plt Count 127 L (150-450) k/uL Neutrophils # 8.1 H (1.3-7.7) k/uL Lymphocytes # 0.3 L (1.0-4.8) k/uL PT (9.0-12.0) sec INR (<1.1) APTT (22.0-30.0) sec Sodium 134 L (137-145) mmol/L BUN 46 H (7-17) mg/dL Glucose 100 H (74-99) mg/dL POC Glucose (mg/dL) (75-99) mg/dL Calcium 7.7 L (8.4-10.2) mg/dL Total Creatine Kinase <20 L (30-135) U/L Total Protein 4.4 L (6.3-8.2) g/dL Albumin 2.1 L (3.5-5.0) g/dL Urine Appearance (Clear) Urine Protein (Negative) Urine Blood (Negative) Ur Leukocyte Esterase (Negative) Urine RBC (0-5) /hpf Urine WBC (0-5) /hpf Amorphous Sediment (None) /hpf Urine Bacteria (None) /hpf Urine Mucus (None) /hpf Stool Occult Blood (Negative) Crossmatch 08/04/16 08/04/16 08/04/16 Range/Units 17:10 17:25 18:07 RBC (3.80-5.40) m/uL Hgb (11.4-16.0) gm/dL Hct (34.0-46.0) % MCHC (31.0-37.0) g/dL RDW (11.5-15.5) % Plt Count (150-450) k/uL Neutrophils # (1.3-7.7) k/uL Lymphocytes # (1.0-4.8) k/uL PT 73.5 H (9.0-12.0) sec INR 7.2 H* (<1.1) APTT 55.9 H (22.0-30.0) sec Sodium (137-145) mmol/L BUN (7-17) mg/dL Glucose (74-99) mg/dL POC Glucose (mg/dL) (75-99) mg/dL Calcium (8.4-10.2) mg/dL Total Creatine Kinase (30-135) U/L Total Protein (6.3-8.2) g/dL Albumin (3.5-5.0) g/dL Urine Appearance Cloudy H (Clear) Urine Protein 1+ H (Negative) Urine Blood Moderate H (Negative) Ur Leukocyte Esterase Trace H (Negative) Urine RBC 42 H (0-5) /hpf Urine WBC 6 H (0-5) /hpf Amorphous Sediment Rare H (None) /hpf Urine Bacteria Many H (None) /hpf Urine Mucus Rare H (None) /hpf Stool Occult Blood (Negative) Crossmatch See Detail 08/04/16 08/05/16 08/05/16 Range/Units 18:47 00:58 05:40 RBC 2.73 L (3.80-5.40) m/uL Hgb 8.0 L (11.4-16.0) gm/dL Hct 25.6 L (34.0-46.0) % MCHC (31.0-37.0) g/dL RDW 17.8 H (11.5-15.5) % Plt Count 109 L (150-450) k/uL Neutrophils # (1.3-7.7) k/uL Lymphocytes # 0.6 L (1.0-4.8) k/uL PT (9.0-12.0) sec INR (<1.1) APTT (22.0-30.0) sec Sodium (137-145) mmol/L BUN (7-17) mg/dL Glucose (74-99) mg/dL POC Glucose (mg/dL) 118 H (75-99) mg/dL Calcium (8.4-10.2) mg/dL Total Creatine Kinase (30-135) U/L Total Protein (6.3-8.2) g/dL Albumin (3.5-5.0) g/dL Urine Appearance (Clear) Urine Protein (Negative) Urine Blood (Negative) Ur Leukocyte Esterase (Negative) Urine RBC (0-5) /hpf Urine WBC (0-5) /hpf Amorphous Sediment (None) /hpf Urine Bacteria (None) /hpf Urine Mucus (None) /hpf Stool Occult Blood Positive H (Negative) Crossmatch 08/05/16 08/05/16 Range/Units 05:40 05:40 RBC (3.80-5.40) m/uL Hgb (11.4-16.0) gm/dL Hct (34.0-46.0) % MCHC (31.0-37.0) g/dL RDW (11.5-15.5) % Plt Count (150-450) k/uL Neutrophils # (1.3-7.7) k/uL Lymphocytes # (1.0-4.8) k/uL PT 13.3 H (9.0-12.0) sec INR (<1.1) APTT (22.0-30.0) sec Sodium 136 L (137-145) mmol/L BUN 47 H (7-17) mg/dL Glucose (74-99) mg/dL POC Glucose (mg/dL) (75-99) mg/dL Calcium 7.9 L (8.4-10.2) mg/dL Total Creatine Kinase (30-135) U/L Total Protein (6.3-8.2) g/dL Albumin (3.5-5.0) g/dL Urine Appearance (Clear) Urine Protein (Negative) Urine Blood (Negative) Ur Leukocyte Esterase (Negative) Urine RBC (0-5) /hpf Urine WBC (0-5) /hpf Amorphous Sediment (None) /hpf Urine Bacteria (None) /hpf Urine Mucus (None) /hpf Stool Occult Blood (Negative) Crossmatch Microbiology - Last 24 Hours (Table) 08/04/16 17:10 Gram Stain - Preliminary Abdomen Wound Culture - Preliminary 08/04/16 17:25 Urine Culture - Preliminary Urine,Catheterized Assessment and Plan (1) Chronic anemia Narrative/Plan: Acute on chronic with component of acute blood loss anemia with positive Hemoccult. EGD February 2016 negative. Attempts for colonoscopy April postponed secondary to complications of hospitalization and medical course. Status: Acute (2) Warfarin-induced coagulopathy Status: Acute (3) COPD (chronic obstructive pulmonary disease) Status: Chronic (4) Diabetes mellitus type 2, uncontrolled, with complications Status: Chronic (5) Elevated INR Status: Acute (6) Acute blood loss anemia Status: Acute (7) Chronic a-fib Status: Chronic (8) Ischemia of left lower extremity Status: Resolved (9) Morbid obesity with BMI of 40.0-44.9, adult Status: Chronic Plan: 1. Continue symptomatic and supportive care. Follow CBC closely. GI prophylaxis. At this time patient is hesitant about proceeding with colonoscopy evaluation and wants to discuss in more detail with primary. She is reporting shortness short of breath especially during conversation. 2. Blood transfusion as necessary. We'll be available for colonoscopy evaluation if agreeable with patient and primary as well as optimization of pulmonary status. Thank you for this kind referral and the opportunity to participate in the care of your patient. This consultation was discussed with Dr. Mccarthy. The impression and plan of care have been directed as dictated.
[2016-08-05 12:01] LABS: Glucose,Whole Blood 192 mg/dL (75-99)
[2016-08-05] MEDS ORDERED: MAGNESIUM HYDROXIDE 2,400 MG/10 ML CUP PO PRN (12:02)
[2016-08-05] MEDS ORDERED: PROMETHAZINE 25 MG TAB PO PRN (12:02)
[2016-08-05] MEDS: ENOXAPARIN 120 MG/0.8 ML SYRINGE SQ SCH ×2 (12:04→20:16)
[2016-08-05] MEDS: VANCOMYCIN 1,250 MG in SODIUM CHLORIDE 0.9% 250 ML IVPB SCH (12:04)
--- NOTE | 2016-08-05 12:26 | P.HPIM ---
History of Present Illness H&P Date: 08/05/16 Chief Complaint: Elevated INR This is a 76-year-old female with a known past medical history of chronic atrial fibrillation, CHF, diabetes mellitus type 2, anemia, COPD, left leg ischemia requiring thrombectomy. Patient was discharged from [facility] on 07/29/2016 at that time she was treated for MRSA pneumonia, UTI, COPD exacerbation and CHF exacerbation. Patient has been residing at [address] [place] [address]. She presents back to the hospital with an INR of 7.2. She had no active signs of bleeding. However hemoglobin was 6.9 and stool for occult blood was positive. She did receive 1 unit of blood hemoglobin is at 8.0. GI service was consulted. At this time there is no plan for colonoscopy due to patient's respiratory status as well as patient is hesitant to proceed with colonoscopy. She did not tolerate the prep the last time she tried to have a colonoscopy. She is short of breath. Chest x-ray shows evidence of congestive heart failure and patchy atelectasis. BNP is elevated at 6180. She's been placed on IV Lasix and cardiology has been consulted. EKG shows atrial fibrillation with a heart rate of 73. Patient denies any chest pain. She is still having a cough. She still maintained on IV vancomycin and Levaquin for her MRSA pneumonia and UTI. Patient denies any nausea or vomiting. Denies any blood in her stools or black stools. Admits to burning with urination. Patient on antibiotics for UTI Review of Systems Reason for to HPI otherwise unremarkable Past Medical History Past Medical History: Atrial Fibrillation, Asthma, Heart Failure, CVA/TIA, Diabetes Mellitus, Deep Vein Thrombosis (DVT), GI Bleed, Hyperlipidemia, Hypertension, Pneumonia Additional Past Medical History / Comment(s): Pt was recently admitted 04/27/16 with L leg ischemia, aucte blood loss anemia-suspect lower GI bleed, acute on chronic CHF, pneumonia with sepsis, exacerbation COPD. Other hx; CVAs-if tired will have slight speech change and chokes easily, chronic CHF, IDDM type II, bilateral cataracts, chronic anemia, 2015 vented for 3 months. Was discharged on to the [facility]. Re-admitted to hospital with pneumonia and groin infection was d/c back to [facility] 06/18/2016. History of Any Multi-Drug Resistant Organisms: MRSA Date of last positivie culture/infection: 07/16/16 MDRO Source:: BRONCH WASH AND SPUTUM Past Surgical History: Back Surgery, Breast Surgery, Hysterectomy Additional Past Surgical History / Comment(s): 05/18/16 thrombectomy/ endartectomy L common femoral artery, thoracic surgery in which a drainage tube was placed in her R lung due to pneumothorax, cyst removed from breast, L hip pain stimulator, EGD 03/2016 at [facility], melanoma removals. Past Anesthesia/Blood Transfusion Reactions: No Reported Reaction Additional Past Anesthesia/Blood Transfusion Reaction / Comment(s): Pt received blood with last admission without reaction. Past Psychological History: No Psychological Hx Reported Additional Psychological History / Comment(s): Pt currently living at [facility]. She just started standing with rails and assist. She is very weak. Has become during previous hospital stay. Tobacco smoker until 3 years ago. No experience. No travel history. No animal exposures Smoking Status: Former smoker Past Alcohol Use History: None Reported Additional Past Alcohol Use History / Comment(s): Pt started smoking in 196 and quit in 2014 Past Drug Use History: None Reported - Past Family History Mother Family Medical History: Diabetes Mellitus Father Additional Family Medical History / Comment(s): Father had heart problems. Medications and Allergies Home Medications Medication Instructions Recorded Confirmed Type Losartan Potassium [Cozaar] 50 mg PO HS 04/27/16 08/04/16 History Metoprolol Succinate [Toprol XL] 200 mg PO BID 04/27/16 08/04/16 History Montelukast Sodium [Singulair] 10 mg PO HS 04/27/16 08/04/16 History Pravastatin Sodium [Pravachol] 20 mg PO HS 04/27/16 08/04/16 History Budesonide [Pulmicort] 1 mg INHALATION RT-BID 07/13/16 08/04/16 History Furosemide [Lasix] 40 mg PO DAILY 07/13/16 08/04/16 History INSULIN LISPRO (humaLOG) [humaLOG 10 unit SQ AC-[id number] 07/13/16 08/04/16 History (formulary)] Insulin Detemir [Levemir] 10 unit SQ HS 07/13/16 08/04/16 History INSULIN LISPRO (humaLOG) [HumaLOG] See Protocol SQ ACHS 08/04/16 08/04/16 History Insulin Detemir [Levemir] 30 unit SQ QAM 08/04/16 08/04/16 History Magnesium Hydroxide [Milk of 2,400 mg PO Q72H PRN 08/04/16 08/04/16 History Magnesia Concentrate] Promethazine HCl 12.5 mg PO Q6H PRN 08/04/16 08/04/16 History Vancomycin 1,250 mg IVPB HS 08/04/16 08/04/16 History predniSONE See Taper PO DAILY 08/04/16 08/04/16 History Allergies Allergy/AdvReac Type Severity Reaction Status Date / Time Penicillins Allergy Rash/Hives Verified 08/04/16 16:49 Physical Exam Vitals: Vital Signs Temp Pulse Pulse Resp BP BP Pulse Ox 08/05/16 11:50 92 08/05/16 11:36 96 08/05/16 07:45 98.0 F 91 18 174/71 99 08/05/16 07:35 88 08/05/16 07:17 92 08/05/16 04:00 97.2 F L 71 18 169/77 98 08/05/16 01:02 88 08/05/16 00:50 88 08/05/16 00:00 97.5 F L 70 18 129/58 98 08/04/16 23:30 97.5 F L 70 18 129/58 98 08/04/16 21:41 97.8 F 77 67 22 167/72 123/74 96 08/04/16 20:57 97.7 F 75 20 159/71 98 08/04/16 20:27 98.2 F 77 20 161/79 08/04/16 20:17 98.3 F 76 20 156/86 08/04/16 20:13 98.7 F 73 20 162/72 08/04/16 18:18 92 08/04/16 18:09 77 24 138/69 96 08/04/16 16:49 98.3 F 83 26 H 149/86 99 Intake and Output 08/04/16 08/05/16 08/05/16 22:59 06:59 14:59 Intake Total 0 310 380 Output Total 30 300 Balance -30 10 380 Intake: IV 200 Sodium Chloride 0.9% 1, 200 000 ml @ 100 mls/hr IV . Q10H SHARONDA Rx#:[id number] Oral 180 Blood Product 0 310 Rc As-1 Unit 0 310 [id number] Output: Urine 30 300 Uretheral (Urrutia) 30 Other: Voiding Method Bedpan Bedpan Diaper Diaper # Voids 2 Weight 117.934 kg 126 kg Head normocephalic Neck supple Lungs crackles noted bilaterally with coarse breath sounds. Patient short of breath with talking. Heart regular rate and rhythm S1-S2, no rub or gallop Abdomen is soft nontender nondistended positive bowel sounds no hepatosplenomegaly Extremities left leg edema +1. Trace edema on right leg. Growing site clean dry and intact. She does have the dressing with some minimal blood noted. No evidence of cellulitis or acute infection. No drainage Neuro alert and orientated to 3 Results CBC & Chem 7: 08/05/16 05:40 08/05/16 05:40 Labs: Abnormal Lab Results - Last 24 Hours (Table) 08/04/16 08/04/16 08/04/16 Range/Units 17:10 17:10 17:10 RBC 2.42 L (3.80-5.40) m/uL Hgb 6.9 L* (11.4-16.0) gm/dL Hct 23.2 L (34.0-46.0) % MCHC 29.9 L (31.0-37.0) g/dL RDW 18.2 H (11.5-15.5) % Plt Count 127 L (150-450) k/uL Neutrophils # 8.1 H (1.3-7.7) k/uL Lymphocytes # 0.3 L (1.0-4.8) k/uL PT (9.0-12.0) sec INR (<1.1) APTT (22.0-30.0) sec Sodium 134 L (137-145) mmol/L BUN 46 H (7-17) mg/dL Glucose 100 H (74-99) mg/dL POC Glucose (mg/dL) (75-99) mg/dL Calcium 7.7 L (8.4-10.2) mg/dL Total Creatine Kinase <20 L (30-135) U/L Total Protein 4.4 L (6.3-8.2) g/dL Albumin 2.1 L (3.5-5.0) g/dL Urine Appearance (Clear) Urine Protein (Negative) Urine Blood (Negative) Ur Leukocyte Esterase (Negative) Urine RBC (0-5) /hpf Urine WBC (0-5) /hpf Amorphous Sediment (None) /hpf Urine Bacteria (None) /hpf Urine Mucus (None) /hpf Stool Occult Blood (Negative) Crossmatch 08/04/16 08/04/16 08/04/16 Range/Units 17:10 17:25 18:07 RBC (3.80-5.40) m/uL Hgb (11.4-16.0) gm/dL Hct (34.0-46.0) % MCHC (31.0-37.0) g/dL RDW (11.5-15.5) % Plt Count (150-450) k/uL Neutrophils # (1.3-7.7) k/uL Lymphocytes # (1.0-4.8) k/uL PT 73.5 H (9.0-12.0) sec INR 7.2 H* (<1.1) APTT 55.9 H (22.0-30.0) sec Sodium (137-145) mmol/L BUN (7-17) mg/dL Glucose (74-99) mg/dL POC Glucose (mg/dL) (75-99) mg/dL Calcium (8.4-10.2) mg/dL Total Creatine Kinase (30-135) U/L Total Protein (6.3-8.2) g/dL Albumin (3.5-5.0) g/dL Urine Appearance Cloudy H (Clear) Urine Protein 1+ H (Negative) Urine Blood Moderate H (Negative) Ur Leukocyte Esterase Trace H (Negative) Urine RBC 42 H (0-5) /hpf Urine WBC 6 H (0-5) /hpf Amorphous Sediment Rare H (None) /hpf Urine Bacteria Many H (None) /hpf Urine Mucus Rare H (None) /hpf Stool Occult Blood (Negative) Crossmatch See Detail 08/04/16 08/05/16 08/05/16 Range/Units 18:47 00:58 05:40 RBC 2.73 L (3.80-5.40) m/uL Hgb 8.0 L (11.4-16.0) gm/dL Hct 25.6 L (34.0-46.0) % MCHC (31.0-37.0) g/dL RDW 17.8 H (11.5-15.5) % Plt Count 109 L (150-450) k/uL Neutrophils # (1.3-7.7) k/uL Lymphocytes # 0.6 L (1.0-4.8) k/uL PT (9.0-12.0) sec INR (<1.1) APTT (22.0-30.0) sec Sodium (137-145) mmol/L BUN (7-17) mg/dL Glucose (74-99) mg/dL POC Glucose (mg/dL) 118 H (75-99) mg/dL Calcium (8.4-10.2) mg/dL Total Creatine Kinase (30-135) U/L Total Protein (6.3-8.2) g/dL Albumin (3.5-5.0) g/dL Urine Appearance (Clear) Urine Protein (Negative) Urine Blood (Negative) Ur Leukocyte Esterase (Negative) Urine RBC (0-5) /hpf Urine WBC (0-5) /hpf Amorphous Sediment (None) /hpf Urine Bacteria (None) /hpf Urine Mucus (None) /hpf Stool Occult Blood Positive H (Negative) Crossmatch 08/05/16 08/05/16 08/05/16 Range/Units 05:40 05:40 11:58 RBC (3.80-5.40) m/uL Hgb (11.4-16.0) gm/dL Hct (34.0-46.0) % MCHC (31.0-37.0) g/dL RDW (11.5-15.5) % Plt Count (150-450) k/uL Neutrophils # (1.3-7.7) k/uL Lymphocytes # (1.0-4.8) k/uL PT 13.3 H (9.0-12.0) sec INR (<1.1) APTT (22.0-30.0) sec Sodium 136 L (137-145) mmol/L BUN 47 H (7-17) mg/dL Glucose (74-99) mg/dL POC Glucose (mg/dL) 192 H (75-99) mg/dL Calcium 7.9 L (8.4-10.2) mg/dL Total Creatine Kinase (30-135) U/L Total Protein (6.3-8.2) g/dL Albumin (3.5-5.0) g/dL Urine Appearance (Clear) Urine Protein (Negative) Urine Blood (Negative) Ur Leukocyte Esterase (Negative) Urine RBC (0-5) /hpf Urine WBC (0-5) /hpf Amorphous Sediment (None) /hpf Urine Bacteria (None) /hpf Urine Mucus (None) /hpf Stool Occult Blood (Negative) Crossmatch Microbiology - Last 24 Hours (Table) 08/04/16 17:10 Gram Stain - Preliminary Abdomen Wound Culture - Preliminary 08/04/16 17:25 Urine Culture - Preliminary Urine,Catheterized Thrombosis Risk Factor Assmnt - Choose All That Apply Any of the Below Risk Factors Present?: Yes Each Factor Represents 1 point: Medical pt on bed rest, Obesity (BMI >25) Other Risk Factors: Yes Each Risk Factor Represents 3 Points: Age 75 years or older Thrombosis Risk Factor Assessment Total Risk Factor Score: 5 Thrombosis Risk Factor Assessment Level: High Risk Assessment and Plan Plan: 1. Acute on chronic anemia. Stool for occult blood positive. EGD in February 2016 was negative. Patient was unable to tolerate colonoscopy in April secondary to Patient's during her hospitalization. GI service was consulted to evaluate patient for possible colonoscopy. At this time there is no scheduled for colonoscopy due to patient's respiratory status. Patient is hesitant to proceed with procedure. Iron deficiency anemia continue with her ferrous sulfate 2. Acute blood loss anemia with stool positive occult blood. Likely related to the coagulopathy. Patient did require 1 unit of blood. Hemoglobin 8.0. Continue to monitor. Check CBC in a.m. 3. Acute on chronic systolic CHF exacerbation: Echo from April 2016 shows an EF of 40-45%. Patient had elevated BNP on admission and chest x-ray showing evidence of congestive heart failure with patchy atelectasis. We will start patient on IV Lasix 40 mg every 12 hours and consult cardiology 4. UTI: With recent urine culture growing Enterobacter Colace and Pseudomonas aeruginosa. Patient had been on Levaquin outpatient. Awaiting repeat urine culture. Continue with Levaquin 5. MRSA bacterial pneumonia has been maintained on IV vancomycin via PICC line at the correction. Vancomycin has been restarted. Continue to monitor 6. Chronic atrial fibrillation: Since patient is not proceeding with colonoscopy at this time. Will place patient on Lovenox 120 mg subcu every 12 hours to bridge until INR is therapeutic. Will give Coumadin 2 mg tonight. For an INR of 1.4 7. Coagulopathy on admission with an INR of 7.2. Patient did receive vitamin K. Monitor daily PT/INR's 8. Atelectasis noted on chest x-ray: Add incentive spirometer. also will resume patient's flutter valve 9. Essential hypertension: Elevated blood pressures. Resume blood pressure medications also she was started on IV Lasix. Continue to monitor 10. Ischemia of the left leg status post thrombectomy with Dr. García. Patient requiring anticoagulation 11. History of COPD. Appears stable. Only had 2 more days of prednisone taper. Patient is not wheezing. We'll add nebulizer treatments 4 times a day and as needed 12. Diabetes mellitus type 2: Patient had lower blood sugars on admission. Blood sugar this morning was only 80. We'll continue with sliding scale and monitor. GI prophylaxis Protonix and DVT prophylaxis Lovenox until INR is therapeutic Time with Patient: Greater than 30 (Greater than 50% of the total time spent in counseling and coordination of care.I performed an examination of the patient and discussed their management with the physician [employer] Hand. I have reviewed the Physician [employer]'s notes and agree with the documented findings and plan of care)
[2016-08-05 13:20] LABS: Hemoglobin A1C 6.4 % (4.2-6.1)
[2016-08-05] MEDS: IPRATROPIUM-ALBUTEROL 3 ML NEB INHALATION SCH ×2 (15:38→20:30)
--- NOTE | 2016-08-05 15:40 | XR ---
EXAMINATION TYPE: XR chest 2V DATE OF EXAM: 08/05/2016 COMPARISON: Prior chest x-ray 08/04/2016 HISTORY: Pneumonia TECHNIQUE: Frontal and lateral views of the chest are obtained. FINDINGS: Patient is rotated. Heart size may be accentuated due to technique is stable. Intrathoraci c stimulator lead is present. There is no evident pneumothorax or pleural effusion. Left-sided PICC l ine remains in place. Pleural parenchymal changes show a similar appearance. IMPRESSION: Similar findings to prior exam. Correlate for possible pulmonary venous hypertension and interstitial edema. Pneumonia not excluded. Follow-up is recommended.
[2016-08-05] MEDS: WARFARIN 2 MG TAB PO SCH (16:18)
[2016-08-05] MEDS: SPIRONOLACTONE 25 MG TAB PO SCH (16:18)
[2016-08-05 16:41] LABS: Glucose,Whole Blood 195 mg/dL (75-99)
--- NOTE | 2016-08-05 18:51 | CONS ---
DATE OF CONSULTATION: Mrs. Bui is a 76-year-old female who was transferred from retirement because of anemia and elevated INR. Patient has a history of persistent chronic atrial fibrillation, history of anemia, and prior GI bleeding, history of diabetes mellitus as well as prior embolic phenomena to lower extremity with thrombectomy. She was recently in the hospital with symptoms of exacerbation of congestive heart failure as well as MRSA pneumonia. She was in the retirement trying to be more active physically, but was noted to be anemic and her INR was elevated. She was referred to the emergency room. She is more short of breath this morning than she was yesterday. She denies any significant chest pain. She has no dizziness or palpitation. She has peripheral edema that she thinks is worse now. She has no recent syncope. She has no clear PND, orthopnea. She is limited in her physical activity, but denies any symptoms of chest pain. She has never been told that she has obstructive coronary artery disease. Her coronary risk factors are positive for history of hyperlipidemia as well as diabetes and hypertension. Her medications include: 1. Xanax. 2. Zyloprim. 3. Pulmicort. 4. Lanoxin. 5. Lasix 40 mg daily. 6. Insulin. 7. Cozaar 50 mg daily. 8. Toprol-XL 200 mg twice a day. 9. Miralax. 10. Pravastatin. 11. Vancomycin. 12. Coumadin. REVIEW OF SYSTEMS: RESPIRATORY SYSTEM: She has mild cough. She has dyspnea on exertion. No recent wheezing GI system: She has history of GI bleeding. Mild nausea. system: No dysuria or hematuria. Nervous system: She had a prior history of stroke. PHYSICAL EXAMINATION: She is a 76-year-old female, alert, oriented in mild dyspnea. Blood pressure 125/60 with a heart in the 80s. HEAD: Normocephalic. EYES: Sclerae anicteric. NECK: No bruit. Unable to evaluate jugular venous pressure. LUNGS: With mild decreased in breath sounds at the bases. HEART: Irregularly irregular, S1, S2, no S3 with a systolic murmur heard at the base, ejection fraction ( ) type, no diastolic murmur. No rub. ABDOMEN: Soft, nontender, obese. Positive bowel sounds. No organomegaly. EXTREMITIES: +2 to 3 edema bilaterally. Lab data revealed a hemoglobin of 6.9 and 8.0 after transfusion. Her initial INR was 7.2, down to 1.4. BUN and creatinine 47 and 0.9. Troponin 0.32, 0.033 and 0.031. Her NT-proBNP is 6180. Her EKG shows atrial fibrillation with nonspecific ST-T wave changes, cannot exclude anterior wall myocardial infarction. Her chest x-ray shows evidence of congestive heart failure. IMPRESSION: 1. Symptoms of congestive heart failure. The patient in the past had moderately impaired left ventricular systolic function by echocardiography done about 6 months ago. 2. Anemia with gastrointestinal bleeding. 3. Persistent atrial fibrillation was supratherapeutic with anticoagulation on presentation. The patient has a very high risk of recurring thromboembolic phenomena with the prior history of stroke as well history of embolic phenomena to her leg. 4. History of hypertension. 5. Hyperlipidemia. 6. Diabetes mellitus. 7. Obesity. 8. Recent Methicillin-resistant Staph aureus infection. RECOMMENDATIONS: From the cardiac standpoint, I will add to regimen Aldactone, will continue on the IV diuretics. I will obtain echocardiogram with Doppler to evaluate the left ventricular systolic function. Unfortunately the issue of anticoagulation is a vexing one. We will await the pattern of her hemoglobin to make further discussion in that regard. Thank you for this consult. We will follow with you.
[2016-08-05] MEDS: LEVOFLOXACIN 750 MG TAB PO SCH (20:15)
[2016-08-05] MEDS: MONTELUKAST 10 MG TAB PO SCH (20:15)
[2016-08-05] MEDS: PRAVASTATIN SODIUM 20 MG TAB PO SCH (20:15)
[2016-08-05] MEDS: guaiFENesin 600 MG TABLET.ER PO SCH (20:15)
[2016-08-05] MEDS: POLYETHYLENE GLYCOL 3350 17 GM POWD.PACK PO SCH (20:16)
[2016-08-05 21:30] LABS: Glucose,Whole Blood 183 mg/dL (75-99)
[2016-08-05] MEDS: ACETAMINOPHEN TAB 325 MG TAB PO PRN (22:23)
[2016-08-06 06:19] LABS: Glucose,Whole Blood 168 mg/dL (75-99)
[2016-08-06 07:03] LABS: Anisocytosis Slight; Basophils % (A) 0 %; CH 28.8; CHCM 30.7; Eosinophils % (A) 1 %; HCT 23.2 % (34.0-46.0); HDW 3.16; HGB 7.2 gm/dL (11.4-16.0); Hypochromasia Moderate; Luc # (Auto) 0.14; Luc % (Auto) 2; Lymphocytes # (A) 0.6 k/uL (1.0-4.8); Lymphocytes % (A) 9 %; MCH 29.1 pg (25.0-35.0); MCHC 30.9 g/dL (31.0-37.0); MCV 94.2 fL (80.0-100.0); Mean Platelet Volume 8.3; Monocytes # (A) 0.3 k/uL (0-1.0); Monocytes % (A) 4 %; Neutrophils # (A) 5.9 k/uL (1.3-7.7); Neutrophils % (A) 84 %; RBC 2.47 m/uL (3.80-5.40); RDW 17.9 % (11.5-15.5); WBC (Perox) 6.77
[2016-08-06] MEDS: INSULIN LISPRO (humaLOG) 300 UNIT/3 ML VIAL SQ SCH ×3 (07:06→17:07)
[2016-08-06] MEDS: FERROUS SULFATE 325 MG TAB PO SCH ×2 (07:06→17:07)
[2016-08-06 07:14] LABS: ALT 23 U/L (9-52); AST 11 U/L (14-36); Alkaline Phosphatase 46 U/L (38-126); Anion Gap 6 mmol/L; Blood Urea Nitrogen 44 mg/dL (7-17); Calcium 7.5 mg/dL (8.4-10.2); Carbon Dioxide 24 mmol/L (22-30); Chloride 105 mmol/L (98-107); Glucose 145 mg/dL (74-99); Non-African American GFR(MDRD) 53 (>60 ml/min/1.73 sqM); Potassium 4.4 mmol/L (3.5-5.1); Sodium 135 mmol/L (137-145); Total Bilirubin 0.4 mg/dL (0.2-1.3); Total Protein 4.1 g/dL (6.3-8.2)
[2016-08-06 07:16] LABS: INR 1.5 (<1.1); Prothrombin Time 14.6 sec (9.0-12.0)
[2016-08-06] MEDS: SODIUM CHLORIDE 0.9% 1,000 ML IV SCH ×2 (08:08→11:29)
[2016-08-06] MEDS: Acetaminophen-Codeine 300-30mg TAB PO PRN ×3 (08:12→20:12)
[2016-08-06] MEDS: ALLOPURINOL 100 MG TAB PO SCH (08:13)
[2016-08-06] MEDS: ALPRAZolam 0.25 MG TAB PO SCH ×2 (08:13→20:11)
[2016-08-06] MEDS: DIGOXIN 125 MCG TAB PO SCH (08:13)
[2016-08-06] MEDS: PANTOPRAZOLE 40 MG/10 ML VIAL IV SCH (08:13)
[2016-08-06] MEDS: DOCUSATE 100 MG CAP PO SCH ×2 (08:13→20:11)
[2016-08-06] MEDS: SPIRONOLACTONE 25 MG TAB PO SCH (08:13)
[2016-08-06] MEDS: guaiFENesin 600 MG TABLET.ER PO SCH ×2 (08:16→20:11)
[2016-08-06] MEDS: ENOXAPARIN 120 MG/0.8 ML SYRINGE SQ SCH ×2 (08:16→20:12)
[2016-08-06] MEDS: FUROSEMIDE 10 MG/ML 4 ML VIAL IV SCH ×2 (08:16→20:11)
[2016-08-06] MEDS: METOPROLOL SUCCINATE (ER) 100 MG TAB.ER.24H PO SCH ×2 (08:17→20:11)
[2016-08-06] MEDS: IPRATROPIUM-ALBUTEROL 3 ML NEB INHALATION SCH ×4 (08:33→19:43)
[2016-08-06] MEDS: BUDESONIDE 1 MG/2 ML NEBU INHALATION SCH ×2 (08:33→19:43)
--- NOTE | 2016-08-06 10:59 | P.PN ---
Subjective Principal diagnosis: 76-year-old female admitted with Coumadin coagulopathy positive Hemoccult testing with acute on chronic anemia. Reports improvement in breathing today. No reports of hematemesis hematochezia or melena. Hemoglobin 7.2. Family at bedside. Objective - Vital Signs Vital signs: Vital Signs Temp 98.1 F 08/06/16 08:00 Pulse 92 08/06/16 08:54 Resp 20 08/06/16 08:00 BP 168/71 08/06/16 08:00 Pulse Ox 92 L 08/06/16 08:00 Intake & Output 08/05/16 08/06/16 08/06/16 18:59 06:59 18:59 Intake Total 580 1278 Output Total 525 600 400 Balance 55 -600 878 Weight 123.5 kg Intake: IV 200 800 Sodium Chloride 0.9% 1, 200 800 000 ml @ 100 mls/hr IV . Q10H SHARONDA Rx#:[id number] Oral 380 478 Output: Urine 525 600 400 Other: Voiding Method Indwelling Catheter Indwelling Catheter Indwelling Catheter # Voids 2 - Exam General appearance: The patient is alert, oriented, in no acute distress. HET: Head is normocephalic and atraumatic. Pupils are equal and reactive. Oropharynx is clear without lesions. Neck: Supple without lymphadenopathy. Trachea midline. Heart: S1 S2. Regular rate and rhythm. Lungs: Mild expiratory wheezes slight diminishment right upper lobe as well as in bilateral bases. No crackles. Abdomen: Soft, nontender, nondistended with bowel sounds. No peritoneal signs. No palpable organomegaly or masses. Extremities: Trace edema right groin wound clean dressing. Neurological: No focal deficits. Strength and sensation are grossly intact. - Labs CBC & Chem 7: 08/06/16 06:30 08/06/16 06:30 Labs: Abnormal Lab Results - Last 24 Hours (Table) 08/05/16 08/05/16 08/05/16 Range/Units 05:40 11:58 16:38 RBC (3.80-5.40) m/uL Hgb (11.4-16.0) gm/dL Hct (34.0-46.0) % MCHC (31.0-37.0) g/dL RDW (11.5-15.5) % Plt Count (150-450) k/uL Lymphocytes # (1.0-4.8) k/uL PT (9.0-12.0) sec Sodium (137-145) mmol/L BUN (7-17) mg/dL Glucose (74-99) mg/dL POC Glucose (mg/dL) 192 H 195 H (75-99) mg/dL Hemoglobin A1c 6.4 H (4.2-6.1) % Calcium (8.4-10.2) mg/dL AST (14-36) U/L Total Protein (6.3-8.2) g/dL Albumin (3.5-5.0) g/dL 08/05/16 08/06/16 08/06/16 Range/Units 21:27 06:18 06:30 RBC (3.80-5.40) m/uL Hgb (11.4-16.0) gm/dL Hct (34.0-46.0) % MCHC (31.0-37.0) g/dL RDW (11.5-15.5) % Plt Count (150-450) k/uL Lymphocytes # (1.0-4.8) k/uL PT (9.0-12.0) sec Sodium 135 L (137-145) mmol/L BUN 44 H (7-17) mg/dL Glucose 145 H (74-99) mg/dL POC Glucose (mg/dL) 183 H 168 H (75-99) mg/dL Hemoglobin A1c (4.2-6.1) % Calcium 7.5 L (8.4-10.2) mg/dL AST 11 L (14-36) U/L Total Protein 4.1 L (6.3-8.2) g/dL Albumin 1.9 L (3.5-5.0) g/dL 08/06/16 08/06/16 Range/Units 06:30 06:30 RBC 2.47 L (3.80-5.40) m/uL Hgb 7.2 L (11.4-16.0) gm/dL Hct 23.2 L (34.0-46.0) % MCHC 30.9 L (31.0-37.0) g/dL RDW 17.9 H (11.5-15.5) % Plt Count 106 L (150-450) k/uL Lymphocytes # 0.6 L (1.0-4.8) k/uL PT 14.6 H (9.0-12.0) sec Sodium (137-145) mmol/L BUN (7-17) mg/dL Glucose (74-99) mg/dL POC Glucose (mg/dL) (75-99) mg/dL Hemoglobin A1c (4.2-6.1) % Calcium (8.4-10.2) mg/dL AST (14-36) U/L Total Protein (6.3-8.2) g/dL Albumin (3.5-5.0) g/dL Microbiology - Last 24 Hours (Table) 08/04/16 17:10 Blood Culture Gram Stain - Preliminary Blood Blood Culture - Preliminary Group D Enterococcus 08/04/16 17:25 Urine Culture - Final Urine,Catheterized 08/04/16 17:10 Gram Stain - Preliminary Abdomen Wound Culture - Preliminary Gram Neg Bacilli 08/04/16 17:10 Blood Culture - Final Blood Assessment and Plan (1) Chronic anemia Narrative/Plan: Acute on chronic with component of acute blood loss anemia with positive Hemoccult. EGD February 2016 negative. Attempts for colonoscopy April postponed secondary to complications of hospitalization and medical course. Status: Acute (2) Warfarin-induced coagulopathy Status: Acute (3) COPD (chronic obstructive pulmonary disease) Status: Chronic (4) Diabetes mellitus type 2, uncontrolled, with complications Status: Chronic (5) Elevated INR Status: Acute (6) Acute blood loss anemia Status: Acute (7) Chronic a-fib Status: Chronic (8) Ischemia of left lower extremity Status: Resolved (9) Morbid obesity with BMI of 40.0-44.9, adult Status: Chronic Plan: 1. Plan a care was discussed with Dr. Parrish patient and family at bedside this morning. Will proceed with colonoscopy in the next 2-3 days as long as her medical and pulmonary status remained stable/optimized. 2. Continue to hold anticoagulation. Will reevaluate tomorrow and make tentative plans for lower endoscopy based on clinical course. 3. Daily CBC. Assessment and plan a care discussed with Dr. Mccarthy.
[2016-08-06] MEDS ORDERED: VANCOMYCIN TROUGH DUE 1 EACH MISC MISCELLANE ONE (11:00)
[2016-08-06 11:47] LABS: Glucose,Whole Blood 190 mg/dL (75-99)
--- NOTE | 2016-08-06 12:02 | P.PN ---
Subjective Principal diagnosis: elevated INR, anemia, chf This is a pleasant 76-year-old female who was transferred from an extended care facility because of anemia and elevated INR. Patient has a history of chronic atrial fibrillation, anemia, prior GI bleeding, diabetes, embolic phenomena to lower extremity with thrombectomy. She was recently in the hospital with symptoms of exacerbation of congestive heart failure as well as MRSA pneumonia. She sent to an extended care facility for rehab and was noted to be anemic and her INR was elevated. She was sent to the emergency department. She is complaining of increasing shortness of breath as well, somewhat better today than yesterday. She denies any complaints of chest discomfort, dizziness or palpitations. She also had complaints of peripheral edema that had worsened, somewhat better today. She was seen by gastroenterology and likely planning colonoscopy to be done soon. INR this morning is 1.5 and hemoglobin 7.2. Objective - Vital Signs Vital signs: Vital Signs Temp 98.1 F 08/06/16 08:00 Pulse 75 08/06/16 11:20 Resp 20 08/06/16 11:20 BP 171/81 08/06/16 11:20 Pulse Ox 95 08/06/16 11:20 Intake & Output 08/05/16 08/06/16 08/06/16 18:59 06:59 18:59 Intake Total 580 1278 Output Total 525 600 400 Balance 55 -600 878 Weight 123.5 kg Intake: IV 200 800 Sodium Chloride 0.9% 1, 200 800 000 ml @ 100 mls/hr IV . Q10H SHARONDA Rx#:[id number] Oral 380 478 Output: Urine 525 600 400 Other: Voiding Method Indwelling Catheter Indwelling Catheter Indwelling Catheter # Voids 2 - Exam PHYSICAL EXAMINATION: HEENT: Head is atraumatic, normocephalic. Pupils equal, round. Neck is supple. Unable to evaluate for elevated jugular venous pressure. HEART EXAMINATION: Heart sounds irregularly irregular, S1 and S2 with a systolic murmur. CHEST EXAMINATION: Lungs reveal diminished air entry bilateral bases. No chest wall tenderness is noted on palpation or with deep breathing. ABDOMEN: Soft, obese, nontender. Bowel sounds are heard. No organomegaly noted. EXTREMITIES: With evidence of 2-3+ peripheral edema and no calf tenderness noted. NEUROLOGIC patient is awake, alert and oriented x3. . - Labs CBC & Chem 7: 08/06/16 06:30 08/06/16 06:30 Labs: Abnormal Lab Results - Last 24 Hours (Table) 08/05/16 08/05/16 08/05/16 Range/Units 05:40 11:58 16:38 RBC (3.80-5.40) m/uL Hgb (11.4-16.0) gm/dL Hct (34.0-46.0) % MCHC (31.0-37.0) g/dL RDW (11.5-15.5) % Plt Count (150-450) k/uL Lymphocytes # (1.0-4.8) k/uL PT (9.0-12.0) sec Sodium (137-145) mmol/L BUN (7-17) mg/dL Glucose (74-99) mg/dL POC Glucose (mg/dL) 192 H 195 H (75-99) mg/dL Hemoglobin A1c 6.4 H (4.2-6.1) % Calcium (8.4-10.2) mg/dL AST (14-36) U/L Total Protein (6.3-8.2) g/dL Albumin (3.5-5.0) g/dL 08/05/16 08/06/16 08/06/16 Range/Units 21:27 06:18 06:30 RBC (3.80-5.40) m/uL Hgb (11.4-16.0) gm/dL Hct (34.0-46.0) % MCHC (31.0-37.0) g/dL RDW (11.5-15.5) % Plt Count (150-450) k/uL Lymphocytes # (1.0-4.8) k/uL PT (9.0-12.0) sec Sodium 135 L (137-145) mmol/L BUN 44 H (7-17) mg/dL Glucose 145 H (74-99) mg/dL POC Glucose (mg/dL) 183 H 168 H (75-99) mg/dL Hemoglobin A1c (4.2-6.1) % Calcium 7.5 L (8.4-10.2) mg/dL AST 11 L (14-36) U/L Total Protein 4.1 L (6.3-8.2) g/dL Albumin 1.9 L (3.5-5.0) g/dL 08/06/16 08/06/16 08/06/16 Range/Units 06:30 06:30 11:45 RBC 2.47 L (3.80-5.40) m/uL Hgb 7.2 L (11.4-16.0) gm/dL Hct 23.2 L (34.0-46.0) % MCHC 30.9 L (31.0-37.0) g/dL RDW 17.9 H (11.5-15.5) % Plt Count 106 L (150-450) k/uL Lymphocytes # 0.6 L (1.0-4.8) k/uL PT 14.6 H (9.0-12.0) sec Sodium (137-145) mmol/L BUN (7-17) mg/dL Glucose (74-99) mg/dL POC Glucose (mg/dL) 190 H (75-99) mg/dL Hemoglobin A1c (4.2-6.1) % Calcium (8.4-10.2) mg/dL AST (14-36) U/L Total Protein (6.3-8.2) g/dL Albumin (3.5-5.0) g/dL Microbiology - Last 24 Hours (Table) 08/04/16 17:10 Blood Culture Gram Stain - Preliminary Blood Blood Culture - Preliminary Group D Enterococcus 08/04/16 17:25 Urine Culture - Final Urine,Catheterized 08/04/16 17:10 Gram Stain - Preliminary Abdomen Wound Culture - Preliminary Gram Neg Bacilli 08/04/16 17:10 Blood Culture - Final Blood Assessment and Plan Plan: Assessment and plan #1 acute and chronic systolic congestive heart failure #2 anemia with supratherapeutic INR and GI bleeding #3 chronic atrial fibrillation #4 hypertension #5 hyperlipidemia #6 diabetes mellitus #7 obesity #8 recent methicillin-resistant staph aureus infection From a cardiology perspective, medications were reviewed and we will continue the same. We will continue to monitor hemoglobin and renal function along with daily weights and intake and output. We will await results of colonoscopy and recommendations by Dr. Mccarthy. We'll continue to follow the patient provided further recommendations accordingly. TELEPHONIC RN note has been reviewed, I agree with a documented findings and plan of care. Patient was seen and examined.
[2016-08-06] MEDS: VANCOMYCIN 1,250 MG in SODIUM CHLORIDE 0.9% 250 ML IVPB SCH (12:51)
[2016-08-06] MEDS ORDERED: SODIUM CHLORIDE 0.9% 1,000 ML IV STA (15:09)
--- NOTE | 2016-08-06 15:16 | P.PN ---
Subjective Patient is a 76-year-old female with a known past medical history of chronic atrial fibrillation, CHF, diabetes mellitus type 2, anemia, COPD, left leg ischemia requiring thrombectomy. Patient was discharged from [facility] on 07/29/2016 at that time she was treated for MRSA pneumonia, UTI, COPD exacerbation and CHF exacerbation. Patient has been residing at [address] [place] [address]. She presents back to the hospital with an INR of 7.2. She had no active signs of bleeding. However hemoglobin was 6.9 and stool for occult blood was positive. She did receive 1 unit of blood hemoglobin is at 8.0. GI service was consulted. At this time there is no plan for colonoscopy due to patient's respiratory status as well as patient is hesitant to proceed with colonoscopy. She did not tolerate the prep the last time she tried to have a colonoscopy. She is short of breath. Chest x-ray shows evidence of congestive heart failure and patchy atelectasis. BNP is elevated at 6180. She's been placed on IV Lasix and cardiology has been consulted. EKG shows atrial fibrillation with a heart rate of 73. Patient denies any chest pain. She is still having a cough. She still maintained on IV vancomycin and Levaquin for her MRSA pneumonia and UTI. Patient denies any nausea or vomiting. Denies any blood in her stools or black stools. Admits to burning with urination. Patient on antibiotics for UTI Today patient is doing better she is still complaining of shortness of breath she had a bowel movement and there was no blood in her stools Hemoglobin is down to 7.2 INR is still subtherapeutic at 1.5 Objective - Vital Signs Vital signs: Vital Signs Temp 98.1 F 08/06/16 08:00 Pulse 82 08/06/16 12:19 Resp 20 08/06/16 11:20 BP 171/81 08/06/16 11:20 Pulse Ox 95 08/06/16 11:20 Intake & Output 08/05/16 08/06/16 08/06/16 18:59 06:59 18:59 Intake Total 580 1278 Output Total 525 600 400 Balance 55 -600 878 Weight 123.5 kg Intake: IV 200 800 Sodium Chloride 0.9% 1, 200 800 000 ml @ 100 mls/hr IV . Q10H SHARONDA Rx#:[id number] Oral 380 478 Output: Urine 525 600 400 Other: Voiding Method Indwelling Catheter Indwelling Catheter Indwelling Catheter # Voids 2 - Exam Patient is alert and oriented 3 in no apparent distress HEENT head normocephalic and atraumatic NECK is supple, no JVD no goiter and no adenopathy CHEST exam with scattered crackes in both lung olivares, no wheezing ABD is nontender no organomegaly Extremity exam reveals no edema no cyanosis or clubbing - Labs CBC & Chem 7: 08/06/16 06:30 08/06/16 06:30 Labs: Abnormal Lab Results - Last 24 Hours (Table) 08/05/16 08/05/16 08/06/16 Range/Units 16:38 21:27 06:18 RBC (3.80-5.40) m/uL Hgb (11.4-16.0) gm/dL Hct (34.0-46.0) % MCHC (31.0-37.0) g/dL RDW (11.5-15.5) % Plt Count (150-450) k/uL Lymphocytes # (1.0-4.8) k/uL PT (9.0-12.0) sec Sodium (137-145) mmol/L BUN (7-17) mg/dL Glucose (74-99) mg/dL POC Glucose (mg/dL) 195 H 183 H 168 H (75-99) mg/dL Calcium (8.4-10.2) mg/dL AST (14-36) U/L Total Protein (6.3-8.2) g/dL Albumin (3.5-5.0) g/dL 08/06/16 08/06/16 08/06/16 Range/Units 06:30 06:30 06:30 RBC 2.47 L (3.80-5.40) m/uL Hgb 7.2 L (11.4-16.0) gm/dL Hct 23.2 L (34.0-46.0) % MCHC 30.9 L (31.0-37.0) g/dL RDW 17.9 H (11.5-15.5) % Plt Count 106 L (150-450) k/uL Lymphocytes # 0.6 L (1.0-4.8) k/uL PT 14.6 H (9.0-12.0) sec Sodium 135 L (137-145) mmol/L BUN 44 H (7-17) mg/dL Glucose 145 H (74-99) mg/dL POC Glucose (mg/dL) (75-99) mg/dL Calcium 7.5 L (8.4-10.2) mg/dL AST 11 L (14-36) U/L Total Protein 4.1 L (6.3-8.2) g/dL Albumin 1.9 L (3.5-5.0) g/dL 08/06/16 Range/Units 11:45 RBC (3.80-5.40) m/uL Hgb (11.4-16.0) gm/dL Hct (34.0-46.0) % MCHC (31.0-37.0) g/dL RDW (11.5-15.5) % Plt Count (150-450) k/uL Lymphocytes # (1.0-4.8) k/uL PT (9.0-12.0) sec Sodium (137-145) mmol/L BUN (7-17) mg/dL Glucose (74-99) mg/dL POC Glucose (mg/dL) 190 H (75-99) mg/dL Calcium (8.4-10.2) mg/dL AST (14-36) U/L Total Protein (6.3-8.2) g/dL Albumin (3.5-5.0) g/dL Microbiology - Last 24 Hours (Table) 08/04/16 17:10 Blood Culture Gram Stain - Preliminary Blood Blood Culture - Preliminary Group D Enterococcus 08/04/16 17:25 Urine Culture - Final Urine,Catheterized 08/04/16 17:10 Gram Stain - Preliminary Abdomen Wound Culture - Preliminary Gram Neg Bacilli 08/04/16 17:10 Blood Culture - Final Blood Assessment and Plan Plan: 1. Acute on chronic anemia. Stool for occult blood positive. EGD in February 2016 was negative. Patient was unable to tolerate colonoscopy in April secondary to Patient's during her hospitalization. GI service was consulted to evaluate patient for possible colonoscopy. At this time there is no scheduled for colonoscopy due to patient's respiratory status. Patient is hesitant to proceed with procedure. Iron deficiency anemia continue with her ferrous sulfate 2. Acute blood loss anemia with stool positive occult blood. Likely related to the coagulopathy. Patient did require 1 unit of blood. Hemoglobin 8.0. Continue to monitor. Check CBC in a.m. 3. Acute on chronic systolic CHF exacerbation: Echo from April 2016 shows an EF of 40-45%. Patient had elevated BNP on admission and chest x-ray showing evidence of congestive heart failure with patchy atelectasis. We will start patient on IV Lasix 40 mg every 12 hours and consult cardiology 4. UTI: With recent urine culture growing Enterobacter Colace and Pseudomonas aeruginosa. Patient had been on Levaquin outpatient. Awaiting repeat urine culture. Continue with Levaquin 5. MRSA bacterial pneumonia has been maintained on IV vancomycin via PICC line at the correction. Vancomycin has been restarted. Continue to monitor 6. Chronic atrial fibrillation: Since patient is not proceeding with colonoscopy at this time. Will place patient on Lovenox 120 mg subcu every 12 hours to bridge until INR is therapeutic. Will give Coumadin 2 mg tonight. For an INR of 1.5 7. Coagulopathy on admission with an INR of 7.2. Patient did receive vitamin K. Monitor daily PT/INR's 8. Atelectasis noted on chest x-ray: Add incentive spirometer. also will resume patient's flutter valve 9. Essential hypertension: Elevated blood pressures. Resume blood pressure medications also she was started on IV Lasix. Continue to monitor 10. Ischemia of the left leg status post thrombectomy with Dr. García. Patient requiring anticoagulation 11. History of COPD. Appears stable. Only had 2 more days of prednisone taper. Patient is not wheezing. We'll add nebulizer treatments 4 times a day and as needed 12. Diabetes mellitus type 2: Patient had lower blood sugars on admission. Blood sugar this morning was only 80. We'll continue with sliding scale and monitor. GI prophylaxis Protonix and DVT prophylaxis Lovenox until INR is therapeutic At this time will decrease IV fluid to KVO Continue was Coumadin 2 mg today Recheck labs including INR in a.m. tomorrow Hemoglobin today is 7.2 Will monitor if it continues to decline will proceed was red blood cell transfusion
[2016-08-06] MEDS ORDERED: DAPTOmycin 750 MG in SODIUM CHLORIDE 0.9% 50 ML IV SCH (16:00)
[2016-08-06 16:32] LABS: Glucose,Whole Blood 215 mg/dL (75-99)
[2016-08-06] MEDS: WARFARIN 2 MG TAB PO SCH (17:07)
[2016-08-06 19:27] LABS: Anisocytosis Slight; Basophils % (A) 0 %; CH 29.1; CHCM 32.4; Eosinophils % (A) 0 %; HDW 3.31; HGB 7.5 gm/dL (11.4-16.0); Hypochromasia Slight; Luc # (Auto) 0.22; Luc % (Auto) 2; Lymphocytes # (A) 0.6 k/uL (1.0-4.8); Lymphocytes % (A) 7 %; MCH 29.5 pg (25.0-35.0); MCHC 32.7 g/dL (31.0-37.0); MCV 90.1 fL (80.0-100.0); Mean Platelet Volume 8.7; Monocytes # (A) 0.5 k/uL (0-1.0); Monocytes % (A) 5 %; Neutrophils # (A) 7.9 k/uL (1.3-7.7); Neutrophils % (A) 86 %; RBC 2.56 m/uL (3.80-5.40); RDW 17.6 % (11.5-15.5); WBC 9.2 k/uL (3.8-10.6); WBC (Perox) 9.42
--- NOTE | 2016-08-06 19:44 | CONS ---
DATE OF CONSULTATION: 08/06/2016 REASON FOR CONSULTATION: Bacteremia. HISTORY OF PRESENT ILLNESS: The patient is a 76-year-old female with a past medical history significant for atrial fibrillation and CHF. She was recently admitted at this facility and is being treated for MRSA pneumonia. She did have a positive sputum culture for MRSA and alicja on 07/17 and 07/16. Patient did get a PICC line and is currently getting vancomycin at [facility]. Patient was sent to the ER at [facility] on 08/04/2016 ( ) the patient was noticed to have an INR of 7.2. The patient did not have any episodes or active signs of bleeding; however, she was noted to have a hemoglobin of 6.9. Hemoccult blood was positive. Patient has been evaluated by GI Services and received one liter of blood. The patient had blood cultures drawn which are now growing a group B enterococcus. Patient is being maintained on vancomycin. ID was consulted for further recommendations regarding antibiotic therapy. Patient remains afebrile during this hospital stay. Her main symptom is being very weak and tired and complaining of shortness of breath. She also has a cough and is bringing up some sputum. She has some pain in the lower chest area. No significant abdominal pain or any diarrhea or burning or frequency of urine. Patient also has a wound in the left groin area, currently being treated with wet-to-dry dressing changes. REVIEW OF SYSTEMS: Positive for weakness but no fever recorded. EYES: No complaint. ENT: No complaint. RESPIRATORY: As per HPI. CARDIOVASCULAR: No complaint. GENITOURINARY: No complaint. GASTROINTESTINAL: No complaint. MUSCULOSKELETAL: No complaint. INTEGUMENTARY: As per HPI. PSYCHOLOGIC: No complaint. ENDOCRINE: No complaint. NEUROLOGIC: No complaint. Past medical history is significant for: 1. Atrial fibrillation. 2. Asthma. 3. Heart failure. 4. CVA, TIA. 5. Diabetes mellitus. 6. DVT. 7. GI bleed. 8. Hyperlipidemia. 9. Hypertension. 10. MRSA pneumonia. PAST SURGICAL HISTORY: 1. Back surgery. 2. Breast surgery. 3. Hysterectomy. 4. Thrombectomy/endarterectomy, left common femoral artery. 5. Melanoma resection. SOCIAL HISTORY: Remote history of smoking; quit back in 2014. Smoked from [address]. No drinking or any drug use. FAMILY HISTORY: Mother with history of diabetes. Father with history of heart problems. ALLERGIES: PENICILLIN. Medications currently include: 1. Tylenol. 2. DuoNeb. 3. Zyloprim. 4. Xanax. 5. Pulmicort. 6. Lanoxin. 7. Colace. 8. Lovenox. 9. Iron sulfate. 10. Mucinex. 11. Dilaudid. 12. Humalog. 13. Levofloxacin. 14. Toprol XL. 15. Singulair. 16. Narcan. 17. Protonix. 18. MiraLax. 19. Prednisone. 20. Aldactone. 21. Coumadin. On examination, her blood pressure is 138/63 with a pulse of 78, temperature 98. She is 95% on 3 L nasal cannula. General description is an elderly female lying in bed in no distress. No tachypnea or accessory muscle of respiration use. HEENT examination shows slight pallor; no scleral icterus. Oral mucous membrane is dry. NECK: Trachea is central. No thyromegaly. LUNGS: Unlabored breathing. Coarse breath sounds bilaterally. HEART: S1, S2. Regular rate and rhythm. ABDOMEN: Soft. No tenderness. No guarding or rigidity. EXTREMITIES: Trace edema of feet. SKIN EXAMINATION: No rash or mass palpable. EXAMINATION OF LEFT GROIN: Patient did have a wound with no significant surrounding swelling or redness or any drainage. Neurologically the patient is awake, alert. Mood and affect normal. LABS: Hemoglobin is 7.3, white count 7.0 with a BUN of 44, creatinine 1.01. Electrolytes have been normal. Urine not significantly positive. Stool for occult blood was positive. Vancomycin trough is 21.4. Blood cultures with group D enterococcus. Urine is no growth after 18 hours. DIAGNOSTIC IMPRESSION AND PLAN: Patient with group D enterococcus bacteremia. Patient is currently getting vancomycin through PICC line left arm for an MRSA pneumonia for more than 2 weeks now. The patient does have significantly positive urine with urine culture being negative. No significant abdominal pain. Concern for possible PICC line infection is on the top of the list. PLAN: 1. We will obtain blood cultures from the PICC line and peripherally. 2. Will discontinue the vancomycin. 3. Will start the patient on Zyvox with concern about possible VRE, and this should also cover the MRSA pneumonia. 4. To the left thigh wound, will pack the wound with Aquacel Silver dressing. 5. Will follow up on her clinical condition and cultures to further adjust medication if needed. Thank you for this consultation. Will follow this patient along with you.
[2016-08-06] MEDS: LEVOFLOXACIN 750 MG TAB PO SCH (20:11)
[2016-08-06] MEDS: MONTELUKAST 10 MG TAB PO SCH (20:11)
[2016-08-06] MEDS: POLYETHYLENE GLYCOL 3350 17 GM POWD.PACK PO SCH (20:12)
[2016-08-06 20:57] LABS: Glucose,Whole Blood 207 mg/dL (75-99)
[2016-08-06] MEDS: LINEZOLID 600 MG in DEXTROSE/WATER 1 300ML.BAG IVPB SCH (21:25)
[2016-08-07 06:12] LABS: Glucose,Whole Blood 297 mg/dL (75-99)
[2016-08-07] MEDS: IPRATROPIUM-ALBUTEROL 3 ML NEB INHALATION SCH ×4 (06:52→19:56)
[2016-08-07] MEDS: BUDESONIDE 1 MG/2 ML NEBU INHALATION SCH ×2 (06:52→19:54)
[2016-08-07] MEDS: FERROUS SULFATE 325 MG TAB PO SCH ×2 (06:57→17:21)
[2016-08-07] MEDS: INSULIN LISPRO (humaLOG) 300 UNIT/3 ML VIAL SQ SCH ×3 (06:57→17:21)
[2016-08-07] MEDS: ALPRAZolam 0.25 MG TAB PO SCH ×2 (08:49→20:50)
[2016-08-07] MEDS: ENOXAPARIN 120 MG/0.8 ML SYRINGE SQ SCH ×2 (08:49→20:50)
[2016-08-07] MEDS: METOPROLOL SUCCINATE (ER) 100 MG TAB.ER.24H PO SCH ×2 (08:49→20:50)
[2016-08-07] MEDS: FUROSEMIDE 10 MG/ML 4 ML VIAL IV SCH ×2 (08:49→20:50)
[2016-08-07] MEDS: SPIRONOLACTONE 25 MG TAB PO SCH (08:49)
[2016-08-07] MEDS: PANTOPRAZOLE 40 MG TABLET PO SCH (08:49)
[2016-08-07] MEDS: DOCUSATE 100 MG CAP PO SCH ×2 (08:49→20:51)
[2016-08-07] MEDS: DIGOXIN 125 MCG TAB PO SCH (08:50)
[2016-08-07] MEDS: ALLOPURINOL 100 MG TAB PO SCH (08:50)
[2016-08-07] MEDS: LINEZOLID 600 MG in DEXTROSE/WATER 1 300ML.BAG IVPB SCH ×2 (08:50→20:51)
[2016-08-07] MEDS: guaiFENesin 600 MG TABLET.ER PO SCH ×2 (08:50→20:50)
--- NOTE | 2016-08-07 10:10 | P.PN ---
Subjective 76-year-old female being seen and examined this morning sitting up in bed chief complaint this morning "nausea sensation no active emesis. Patient states has a poor appetite. Patient denies chest pain or shortness of breath. Patients being followed by multiple consulting physicians infectious disease, pulmonary GI and cardiology service. Currently INR pending. Due to a difficult time obtaining labs poor access Patient initially was admitted with Coumadin coagulopathy with a positive Hemoccult stool. Current there is no plan for colonoscopy due to patient's respiratory status and the patient is hesitant to proceed with a colonoscopy at this time Objective - Vital Signs Vital signs: Vital Signs Temp 98.2 F 08/07/16 08:53 Pulse 85 08/07/16 08:53 Resp 16 08/07/16 08:53 BP 151/67 08/07/16 08:53 Pulse Ox 97 08/07/16 08:53 Intake & Output 08/06/16 08/07/16 08/07/16 18:59 06:59 18:59 Intake Total 1758 1000 Output Total 2150 1300 Balance -392 -300 Weight 129.5 kg Intake: IV 800 800 Sodium Chloride 0.9% 1, 800 800 000 ml @ 100 mls/hr IV . Q10H SHARONDA Rx#:[id number] Oral 958 200 Output: Urine 2150 1300 Other: Voiding Method Indwelling Catheter Indwelling Catheter Indwelling Catheter # Bowel Movements 1 - Exam Physical exam 76-year-old female resting in bed sitting up does state that with a nausea sensation no active emesis currently when questioning states breathing feels improved Lungs diminished at the bases otherwise adequate air movement nasal cannula 2 L no cough noted no shortness of breath Heart S1-S2 audible irregular monitor atrial fibrillation rate in the 70s currently denying chest pain when questioning Abdomen obese indwelling Urrutia catheter in place soft no nausea no vomiting positive bowel tones not distended nontender Extremities dressing to the left groin dry left greater than the right edema persist pitting - Labs CBC & Chem 7: 08/06/16 18:52 08/06/16 06:30 Labs: Abnormal Lab Results - Last 24 Hours (Table) 08/06/16 08/06/16 08/06/16 Range/Units 11:45 16:31 18:52 RBC 2.56 L (3.80-5.40) m/uL Hgb 7.5 L (11.4-16.0) gm/dL Hct 23.0 L (34.0-46.0) % RDW 17.6 H (11.5-15.5) % Plt Count 115 L (150-450) k/uL Neutrophils # 7.9 H (1.3-7.7) k/uL Lymphocytes # 0.6 L (1.0-4.8) k/uL POC Glucose (mg/dL) 190 H 215 H (75-99) mg/dL 08/06/16 08/07/16 Range/Units 20:53 06:10 RBC (3.80-5.40) m/uL Hgb (11.4-16.0) gm/dL Hct (34.0-46.0) % RDW (11.5-15.5) % Plt Count (150-450) k/uL Neutrophils # (1.3-7.7) k/uL Lymphocytes # (1.0-4.8) k/uL POC Glucose (mg/dL) 207 H 297 H (75-99) mg/dL Microbiology - Last 24 Hours (Table) 08/06/16 13:33 Blood Culture - Final Blood 08/04/16 17:25 Urine Culture - Preliminary Urine,Catheterized Yeast species 08/04/16 17:10 Blood Culture Gram Stain - Final Blood Blood Culture - Final Enterococcus faecium VRE 08/04/16 17:10 Gram Stain - Final Abdomen Wound Culture - Final Pseudomonas aeruginosa Enterococcus faecium VRE Assessment and Plan Plan: 1. Acute on chronic anemia. Stool for occult blood positive. EGD in February 2016 was negative. Patient was unable to tolerate colonoscopy in April secondary to Patient's during her hospitalization. GI service was consulted to evaluate patient for possible colonoscopy. At this time there is no scheduled for colonoscopy due to patient's respiratory status. Patient is hesitant to proceed with procedure. Iron deficiency anemia continue with her ferrous sulfate 2. Acute blood loss anemia with stool positive occult blood. Likely related to the coagulopathy. Patient did require 1 unit of blood. Hemoglobin 8.0. Continue to monitor. Check CBC in a.m. 3. Acute on chronic systolic CHF exacerbation: Echo from April 2016 shows an EF of 40-45%. Patient had elevated BNP on admission and chest x-ray showing evidence of congestive heart failure with patchy atelectasis. We will start patient on IV Lasix 40 mg every 12 hours and consult cardiology 4. UTI: With recent urine culture growing Enterobacter Colace and Pseudomonas aeruginosa. Patient had been on Levaquin outpatient. Awaiting repeat urine culture. Continue with Levaquin 5. MRSA bacterial pneumonia has been maintained on IV vancomycin via PICC line at the senior care. Vancomycin has been restarted. Continue to monitor 6. Chronic atrial fibrillation: Since patient is not proceeding with colonoscopy at this time. Will place patient on Lovenox 120 mg subcu every 12 hours to bridge until INR is therapeutic. Will give Coumadin 2 mg tonight. Chronic debility limited mobility suspect due to comorbidities INR is pending this morning 7. Coagulopathy on admission with an INR of 7.2. Patient did receive vitamin K. Monitor daily PT/INR's 8. Atelectasis noted on chest x-ray: Add incentive spirometer. also will resume patient's flutter valve 9. Essential hypertension: Elevated blood pressures. Resume blood pressure medications also she was started on IV Lasix. Continue to monitor 10. Ischemia of the left leg status post thrombectomy with Dr. García. Patient requiring anticoagulation 11. History of COPD. Appears stable. Only had 2 more days of prednisone taper. Patient is not wheezing. We'll add nebulizer treatments 4 times a day and as needed 12. Diabetes mellitus type 2: Patient had lower blood sugars on admission. Blood sugar this morning was only 80. We'll continue with sliding scale and monitor. #13 chronic debility limited mobility suspect due to chronic illness #14 morbid obesity BMI 42 Continue with the GI prophylaxis protonic DVT prophylaxis Lovenox until the INR is therapeutic The above dictated assessment and findings were discussed with dr yuri Cramer and the plan of care have been dictated as directed. Muriel Goodman nurse practitioner acting as a scribe for dr welch Time with Patient: Greater than 30
[2016-08-07] MEDS: Acetaminophen-Codeine 300-30mg TAB PO PRN ×2 (10:42→17:26)
[2016-08-07 12:09] LABS: Glucose,Whole Blood 350 mg/dL (75-99)
[2016-08-07 12:37] LABS: Anisocytosis Slight; Basophils % (A) 0 %; CH 28.7; CHCM 31.4; Eosinophils % (A) 0 %; HCT 20.2 % (34.0-46.0); HDW 3.23; Hypochromasia Slight; Luc # (Auto) 0.17; Luc % (Auto) 2; Lymphocytes # (A) 0.6 k/uL (1.0-4.8); Lymphocytes % (A) 7 %; MCH 28.6 pg (25.0-35.0); MCHC 31.2 g/dL (31.0-37.0); MCV 91.7 fL (80.0-100.0); Mean Platelet Volume 8.4; Monocytes # (A) 0.4 k/uL (0-1.0); Monocytes % (A) 4 %; Neutrophils # (A) 7.5 k/uL (1.3-7.7); Neutrophils % (A) 86 %; RDW 17.5 % (11.5-15.5); WBC 8.7 k/uL (3.8-10.6); WBC (Perox) 8.88
[2016-08-07 12:41] LABS: HGB 6.3 gm/dL (11.4-16.0)
[2016-08-07 12:43] LABS: Prothrombin Time 39.4 sec (9.0-12.0)
[2016-08-07 13:16] LABS: ALT 22 U/L (9-52); AST 12 U/L (14-36); Alkaline Phosphatase 41 U/L (38-126); Anion Gap 8 mmol/L; Blood Urea Nitrogen 46 mg/dL (7-17); Calcium 7.2 mg/dL (8.4-10.2); Carbon Dioxide 22 mmol/L (22-30); Chloride 102 mmol/L (98-107); Glucose 308 mg/dL (74-99); Non-African American GFR(MDRD) 55 (>60 ml/min/1.73 sqM); Potassium 4.4 mmol/L (3.5-5.1); Sodium 132 mmol/L (137-145); Total Bilirubin 0.3 mg/dL (0.2-1.3)
--- NOTE | 2016-08-07 13:46 | P.PN ---
Subjective Principal diagnosis: elevated INR, anemia, chf This is a pleasant 76-year-old female who was transferred from an extended care facility because of anemia and elevated INR. Patient has a history of chronic atrial fibrillation, anemia, prior GI bleeding, diabetes, embolic phenomena to lower extremity with thrombectomy. She was recently in the hospital with symptoms of exacerbation of congestive heart failure as well as MRSA pneumonia. She sent to an extended care facility for rehab and was noted to be anemic and her INR was elevated. She was sent to the emergency department. She is complaining of increasing shortness of breath as well, somewhat better today than yesterday. She denies any complaints of chest discomfort, dizziness or palpitations. She also had complaints of peripheral edema that had worsened, somewhat better today. She was seen by gastroenterology and likely planning colonoscopy to be done soon. Examination today, he feels her breathing is quite improved. She continues to have edema however this is improved. She is on Lasix 40 mg IV push twice a day. Objective - Vital Signs Vital signs: Vital Signs Temp 98.2 F 08/07/16 08:53 Pulse 84 08/07/16 12:15 Resp 16 08/07/16 08:53 BP 151/67 08/07/16 08:53 Pulse Ox 97 08/07/16 08:53 Intake & Output 08/06/16 08/07/16 08/07/16 18:59 06:59 18:59 Intake Total 1758 1000 Output Total 2150 1300 Balance -392 -300 Weight 129.5 kg Intake: IV 800 800 Sodium Chloride 0.9% 1, 800 800 000 ml @ 100 mls/hr IV . Q10H COUNT INCLUDES THE [facility] Rx#:[id number] Oral 958 200 Output: Urine 2150 1300 Other: Voiding Method Indwelling Catheter Indwelling Catheter Indwelling Catheter # Bowel Movements 1 - Exam PHYSICAL EXAMINATION: HEENT: Head is atraumatic, normocephalic. Pupils equal, round. Neck is supple. Unable to evaluate for elevated jugular venous pressure. HEART EXAMINATION: Heart sounds irregularly irregular, S1 and S2 with a systolic murmur. CHEST EXAMINATION: Lungs reveal diminished air entry bilateral bases. No chest wall tenderness is noted on palpation or with deep breathing. ABDOMEN: Soft, obese, nontender. Bowel sounds are heard. No organomegaly noted. EXTREMITIES: With evidence of 2-3+ peripheral edema and no calf tenderness noted. NEUROLOGIC patient is awake, alert and oriented x3. . - Labs CBC & Chem 7: 08/07/16 12:00 08/07/16 12:00 Labs: Abnormal Lab Results - Last 24 Hours (Table) 08/06/16 08/06/16 08/06/16 Range/Units 16:31 18:52 20:53 RBC 2.56 L (3.80-5.40) m/uL Hgb 7.5 L (11.4-16.0) gm/dL Hct 23.0 L (34.0-46.0) % RDW 17.6 H (11.5-15.5) % Plt Count 115 L (150-450) k/uL Neutrophils # 7.9 H (1.3-7.7) k/uL Lymphocytes # 0.6 L (1.0-4.8) k/uL PT (9.0-12.0) sec Sodium (137-145) mmol/L BUN (7-17) mg/dL Glucose (74-99) mg/dL POC Glucose (mg/dL) 215 H 207 H (75-99) mg/dL Calcium (8.4-10.2) mg/dL AST (14-36) U/L Total Protein (6.3-8.2) g/dL Albumin (3.5-5.0) g/dL 08/07/16 08/07/16 08/07/16 Range/Units 06:10 12:00 12:00 RBC 2.20 L (3.80-5.40) m/uL Hgb 6.3 L* (11.4-16.0) gm/dL Hct 20.2 L (34.0-46.0) % RDW 17.5 H (11.5-15.5) % Plt Count 125 L (150-450) k/uL Neutrophils # (1.3-7.7) k/uL Lymphocytes # 0.6 L (1.0-4.8) k/uL PT (9.0-12.0) sec Sodium 132 L (137-145) mmol/L BUN 46 H (7-17) mg/dL Glucose 308 H (74-99) mg/dL POC Glucose (mg/dL) 297 H (75-99) mg/dL Calcium 7.2 L (8.4-10.2) mg/dL AST 12 L (14-36) U/L Total Protein 4.0 L (6.3-8.2) g/dL Albumin 1.8 L (3.5-5.0) g/dL 08/07/16 08/07/16 Range/Units 12:00 12:06 RBC (3.80-5.40) m/uL Hgb (11.4-16.0) gm/dL Hct (34.0-46.0) % RDW (11.5-15.5) % Plt Count (150-450) k/uL Neutrophils # (1.3-7.7) k/uL Lymphocytes # (1.0-4.8) k/uL PT 39.4 H (9.0-12.0) sec Sodium (137-145) mmol/L BUN (7-17) mg/dL Glucose (74-99) mg/dL POC Glucose (mg/dL) 350 H (75-99) mg/dL Calcium (8.4-10.2) mg/dL AST (14-36) U/L Total Protein (6.3-8.2) g/dL Albumin (3.5-5.0) g/dL Microbiology - Last 24 Hours (Table) 08/04/16 17:10 Gram Stain - Final Abdomen Wound Culture - Final Pseudomonas aeruginosa Enterococcus faecium VRE 08/04/16 17:10 Blood Culture Gram Stain - Final Blood Blood Culture - Final Enterococcus faecium VRE 08/06/16 13:33 Blood Culture Gram Stain - Preliminary Blood 08/06/16 13:33 Blood Culture - Final Blood 08/04/16 17:25 Urine Culture - Preliminary Urine,Catheterized Yeast species Assessment and Plan Plan: Assessment and plan #1 acute and chronic systolic congestive heart failure #2 anemia with supratherapeutic INR and GI bleeding #3 chronic atrial fibrillation #4 hypertension #5 hyperlipidemia #6 diabetes mellitus #7 obesity #8 recent methicillin-resistant staph aureus infection From a cardiology perspective, medications were reviewed and we will continue the same. We will continue to monitor hemoglobin and renal function along with daily weights and intake and output. We will await results of colonoscopy and recommendations by Dr. Mccarthy. We'll continue to follow the patient provided further recommendations accordingly. ASSOCIATE AUTOMATION ENGINEER note has been reviewed, I agree with a documented findings and plan of care. Patient was seen and examined.
[2016-08-07 17:35] LABS: Glucose,Whole Blood 341 mg/dL (75-99)
--- NOTE | 2016-08-07 18:52 | P.PN ---
Subjective Principal diagnosis: Weakness and shortness of breath 76-year-old female who has a history of extensive hospitalizations earlier this year. She is evidence of the extensive lung disease. 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 She has sleep apnea. During a recent hospital stay she had evidence of extensive illness including the large clot from the left leg that required endarterectomy with patch angioplasty. She has significant difficulties at that site. She had pneumonia and infection at the left leg site. MRSA pneumonia was noted. She was sent to rehab to receive her course of antibiotic therapy. Presents to Hospital feeling very poorly. On evidence of an elevated INR of 7.2. Hemoglobin was only 6.9. She was weak and short of breath. She is now had transfusion. In receiving antibiotic therapy. Infectious diseases consultation follow-up is being done because of VRE being isolated from her blood. Patient still feels very poorly. Her appetite is poor she's having difficulty eating because she so short of breath. Objective - Vital Signs Vital signs: Vital Signs Temp 97.6 F 08/07/16 16:23 Pulse 94 08/07/16 16:23 Resp 18 08/07/16 16:23 BP 140/69 08/07/16 16:23 Pulse Ox 98 08/07/16 16:23 Intake & Output 08/06/16 08/07/16 08/07/16 18:59 06:59 18:59 Intake Total 1758 1000 Output Total 2150 1300 Balance -392 -300 Weight 129.5 kg Intake: IV 800 800 Sodium Chloride 0.9% 1, 800 800 000 ml @ 100 mls/hr IV . [facility]H [facility] Rx#:[id number] Oral 958 200 Output: Urine 2150 1300 Other: Voiding Method Indwelling Catheter Indwelling Catheter Indwelling Catheter # Bowel Movements 1 - Exam 76-year-old woman who relates she is feeling short of breath and has difficulty eating because she short of breath. HEENT: Anicteric conjunctiva are pink and moist nasal mucosa grossly intact without significant lesions, there is no thrush. Worn dentition Neck: The neck is supple without significant lymphadenopathy or thyromegaly. Lungs: Symmetrical air entry is noted. Wheezes throughout the lung olivares is noted, Bibasilar crackles are heard no dullness is noted no egophony is appreciated. Heart: Regular rate and rhythm with an audible S1-S2, no S3 soft S4, There is no significant murmur click or rub, PMI was nondisplaced. Abdomen: Obese, Positive bowel sounds soft and nontender without palpable masses or organomegaly. There was no guarding or rebound. Extremities: The upper and lower extremity is have some generalized edema. However no open ulcerations are seen. The entry site for the thrombectomy is without bleeding drainage or evidence of infection or tenderness Neuro: Awake alert oriented to person place and time. There are no acute new gross focal sensory motor deficits. She has significant generalized weakness though - Labs CBC & Chem 7: 08/07/16 12:00 08/07/16 12:00 Labs: Abnormal Lab Results - Last 24 Hours (Table) 08/04/16 08/06/16 08/06/16 Range/Units 18:07 18:52 20:53 RBC 2.56 L (3.80-5.40) m/uL Hgb 7.5 L (11.4-16.0) gm/dL Hct 23.0 L (34.0-46.0) % RDW 17.6 H (11.5-15.5) % Plt Count 115 L (150-450) k/uL Neutrophils # 7.9 H (1.3-7.7) k/uL Lymphocytes # 0.6 L (1.0-4.8) k/uL PT (9.0-12.0) sec Sodium (137-145) mmol/L BUN (7-17) mg/dL Glucose (74-99) mg/dL POC Glucose (mg/dL) 207 H (75-99) mg/dL Calcium (8.4-10.2) mg/dL AST (14-36) U/L Total Protein (6.3-8.2) g/dL Albumin (3.5-5.0) g/dL Crossmatch See Detail 08/07/16 08/07/16 08/07/16 Range/Units 06:10 12:00 12:00 RBC 2.20 L (3.80-5.40) m/uL Hgb 6.3 L* (11.4-16.0) gm/dL Hct 20.2 L (34.0-46.0) % RDW 17.5 H (11.5-15.5) % Plt Count 125 L (150-450) k/uL Neutrophils # (1.3-7.7) k/uL Lymphocytes # 0.6 L (1.0-4.8) k/uL PT (9.0-12.0) sec Sodium 132 L (137-145) mmol/L BUN 46 H (7-17) mg/dL Glucose 308 H (74-99) mg/dL POC Glucose (mg/dL) 297 H (75-99) mg/dL Calcium 7.2 L (8.4-10.2) mg/dL AST 12 L (14-36) U/L Total Protein 4.0 L (6.3-8.2) g/dL Albumin 1.8 L (3.5-5.0) g/dL Crossmatch 08/07/16 08/07/16 08/07/16 Range/Units 12:00 12:06 17:17 RBC (3.80-5.40) m/uL Hgb (11.4-16.0) gm/dL Hct (34.0-46.0) % RDW (11.5-15.5) % Plt Count (150-450) k/uL Neutrophils # (1.3-7.7) k/uL Lymphocytes # (1.0-4.8) k/uL PT 39.4 H (9.0-12.0) sec Sodium (137-145) mmol/L BUN (7-17) mg/dL Glucose (74-99) mg/dL POC Glucose (mg/dL) 350 H 341 H (75-99) mg/dL Calcium (8.4-10.2) mg/dL AST (14-36) U/L Total Protein (6.3-8.2) g/dL Albumin (3.5-5.0) g/dL Crossmatch Microbiology - Last 24 Hours (Table) 08/06/16 13:45 Blood Culture - Preliminary Blood No Growth after 24 hours 08/04/16 17:10 Gram Stain - Final Abdomen Wound Culture - Final Pseudomonas aeruginosa Enterococcus faecium VRE 08/04/16 17:10 Blood Culture Gram Stain - Final Blood Blood Culture - Final Enterococcus faecium VRE 08/06/16 13:33 Blood Culture Gram Stain - Preliminary Blood 08/06/16 13:33 Blood Culture - Final Blood 08/04/16 17:25 Urine Culture - Preliminary Urine,Catheterized Yeast species Laboratory Results WBC 8.7 k/uL (3.8-10.6) 08/07/16 12:00 RBC 2.20 m/uL (3.80-5.40) L 08/07/16 12:00 Hgb 6.3 gm/dL (11.4-16.0) L* 08/07/16 12:00 Hct 20.2 % (34.0-46.0) L 08/07/16 12:00 MCV 91.7 fL (80.0-100.0) 08/07/16 12:00 MCH 28.6 pg (25.0-35.0) 08/07/16 12:00 MCHC 31.2 g/dL (31.0-37.0) 08/07/16 12:00 RDW 17.5 % (11.5-15.5) H 08/07/16 12:00 Plt Count 125 k/uL (150-450) L 08/07/16 12:00 Neutrophils % 86 % 08/07/16 12:00 Lymphocytes % 7 % 08/07/16 12:00 Monocytes % 4 % 08/07/16 12:00 Eosinophils % 0 % 08/07/16 12:00 Basophils % 0 % 08/07/16 12:00 Neutrophils # 7.5 k/uL (1.3-7.7) 08/07/16 12:00 Lymphocytes # 0.6 k/uL (1.0-4.8) L 08/07/16 12:00 Monocytes # 0.4 k/uL (0-1.0) 08/07/16 12:00 Eosinophils # 0.0 k/uL (0-0.7) 08/07/16 12:00 Basophils # 0.0 k/uL (0-0.2) 08/07/16 12:00 Hypochromasia Slight 08/07/16 12:00 Anisocytosis Slight 08/07/16 12:00 Macrocytosis Slight 08/04/16 17:10 PT 39.4 sec (9.0-12.0) H 08/07/16 12:00 INR 4.0 (<1.1) 08/07/16 12:00 APTT 55.9 sec (22.0-30.0) H 08/04/16 17:10 Sodium 132 mmol/L (137-145) L 08/07/16 12:00 Potassium 4.4 mmol/L (3.5-5.1) 08/07/16 12:00 Chloride 102 mmol/L (98-107) 08/07/16 12:00 Carbon Dioxide 22 mmol/L (22-30) 08/07/16 12:00 Anion Gap 8 mmol/L 08/07/16 12:00 BUN 46 mg/dL (7-17) H 08/07/16 12:00 Creatinine 0.98 mg/dL (0.52-1.04) 08/07/16 12:00 Est GFR (MDRD) Af Amer >60 (>60 ml/min/1.73 sqM) 08/07/16 12:00 Est GFR (MDRD) Non-Af 55 (>60 ml/min/1.73 sqM) 08/07/16 12:00 Glucose 308 mg/dL (74-99) H 08/07/16 12:00 POC Glucose (mg/dL) 341 mg/dL (75-99) H 08/07/16 17:17 POC Glu Office Workforce Planner ID Destini Rodgers 08/07/16 17:[address] Glu mg/dL 137 mg/dL 08/05/16 05:40 Hemoglobin A1c 6.4 % (4.2-6.1) H 08/05/16 05:40 Plasma Lactic Acid Good 1.6 mmol/L (0.7-2.0) 08/04/16 17:10 Calcium 7.2 mg/dL (8.4-10.2) L 08/07/16 12:00 Magnesium 2.1 mg/dL (1.6-2.3) 08/04/16 17:10 Total Bilirubin 0.3 mg/dL (0.2-1.3) 08/07/16 12:00 AST 12 U/L (14-36) L 08/07/16 12:00 ALT 22 U/L (9-52) 08/07/16 12:00 Alkaline Phosphatase 41 U/L (38-126) 08/07/16 12:00 Total Creatine Kinase <20 U/L (30-135) L 08/04/16 17:10 CK-MB (CK-2) 0.8 ng/mL (0.0-2.4) 08/04/16 17:10 CK-MB (CK-2) Rel Index 0.0 08/04/16 17:10 Troponin I 0.033 ng/mL (0.000-0.034) 08/05/16 05:40 NT-Pro-B Natriuret Pep 6180 pg/mL 08/04/16 17:10 Total Protein 4.0 g/dL (6.3-8.2) L 08/07/16 12:00 Albumin 1.8 g/dL (3.5-5.0) L 08/07/16 12:00 Urine Color Yellow 08/04/16 17:25 Urine Appearance Cloudy (Clear) H 08/04/16 17:25 Urine pH 5.0 (5.0-8.0) 08/04/16 17:25 Ur Specific [place] 1.013 (1.001-1.035) 08/04/16 17:25 Urine Protein 1+ (Negative) H 08/04/16 17:25 Urine Glucose (UA) Negative (Negative) 08/04/16 17:25 Urine Ketones Negative (Negative) 08/04/16 17:25 Urine Blood Moderate (Negative) H 08/04/16 17:25 Urine Nitrite Negative (Negative) 08/04/16 17:25 Urine Bilirubin Negative (Negative) 08/04/16 17:25 Urine Urobilinogen <2.0 mg/dL (<2.0) 08/04/16 17:25 Ur Leukocyte Esterase Trace (Negative) H 08/04/16 17:25 Urine RBC 42 /hpf (0-5) H 08/04/16 17:25 Urine WBC 6 /hpf (0-5) H 08/04/16 17:25 Ur Squamous Epith Cells 1 /hpf (0-4) 08/04/16 17:25 Amorphous Sediment Rare /hpf (None) H 08/04/16 17:25 Urine Bacteria Many /hpf (None) H 08/04/16 17:25 Urine Mucus Rare /hpf (None) H 08/04/16 17:25 Stool Occult Blood Positive (Negative) H 08/04/16 18:47 Vancomycin Trough 21.4 ug/mL 08/06/16 11:42 Random Vancomycin 23.9 ug/mL 08/04/16 17:10 Blood Type A Positive 08/04/16 18:07 Blood Type Recheck No 08/04/16 18:07 Antibody Screen NEGATIVE 08/04/16 18:07 Crossmatch See Detail 08/04/16 18:07 Spec Expiration Date 08/07/2016 - 230608/04/16 18:07 Microbiology 08/06/16 13:45 Blood Blood Culture - Preliminary No Growth after 24 hours 08/04/16 17:10 Abdomen Gram Stain - Final 08/04/16 17:10 Abdomen Wound Culture - Final Pseudomonas aeruginosa Enterococcus faecium VRE 08/04/16 17:10 Blood Blood Culture Gram Stain - Final 08/04/16 17:10 Blood Blood Culture - Final Enterococcus faecium VRE 08/06/16 13:33 Blood Blood Culture Gram Stain - Preliminary 08/06/16 13:33 Blood Blood Culture - Final 08/04/16 17:25 Urine,Catheterized Urine Culture - Preliminary Yeast species 08/04/16 17:10 Blood Blood Culture - Final Assessment and Plan (1) Warfarin-induced coagulopathy Status: Acute (2) Vancomycin resistant Enterococcal septicemia Narrative/Plan: 76-year-old female who has extensive COPD with multiple complications that include chronic atrial fibrillation, chronic anemia, a intestinal bleeding , diabetes and a recent MRSA pneumonia. Presents from the extended care facility with marked increased weakness shortness of breath and fatigue. Was found evidence of a gastrointestinal bleed, Coumadin coagulopathy and evidence of fever. There is no been evidence of vancomycin-resistant enterococci be nicely from her blood and several events. She is a PICC line in the left arm is noted. Concern is this is the source. Consequently when possible would like to have a new IV placed. Her PICC line removed. Since she's been treated with Zyvox that could be switched to oral and hopefully would not need long- term IV antibiotics at this time. Her coagulopathy is being treated. Ongoing attempts to improve her blood sugars. Her COPD is quite problematic given her significant anemia and worsening shortness of breath. Overall prognosis is very poor. Status: Acute
[2016-08-07] MEDS: LEVOFLOXACIN 750 MG TAB PO SCH (20:50)
[2016-08-07] MEDS: MONTELUKAST 10 MG TAB PO SCH (20:51)
[2016-08-07] MEDS: POLYETHYLENE GLYCOL 3350 17 GM POWD.PACK PO SCH (20:51)
[2016-08-07 21:00] LABS: Glucose,Whole Blood 334 mg/dL (75-99)
[2016-08-07] MEDS: INSULIN DETEMIR 100 UNIT/ML 10 ML VIAL SQ SCH (23:10)
[2016-08-07] MEDS: ONDANSETRON 4 MG/2 ML VIAL IVP PRN (23:57)
--- NOTE | 2016-08-08 00:40 | P.PN ---
Subjective Principal diagnosis: Anemia and GI bleeding The patient is a 76-year-old female with advanced COPD who presented with anemia and coagulopathy related to her Coumadin therapy as well as the finding of blood in her stools. The patient had an upper endoscopy in February of this year and a colonoscopy has been considered this admission to explain her presentation and symptoms, however, she has been too ill to tolerate such a procedure so far. The patient was awake having her meal when I saw her today and she indicated that she is not ready yet and that she continues to have shortness of breath even when she eats. No hematemesis or hematochezia. Objective - Vital Signs Vital signs: Vital Signs Temp 98.2 F 08/07/16 08:53 Pulse 84 08/07/16 12:15 Resp 16 08/07/16 08:53 BP 151/67 08/07/16 08:53 Pulse Ox 97 08/07/16 08:53 Intake & Output 08/06/16 08/07/16 08/07/16 18:59 06:59 18:59 Intake Total 1758 1000 Output Total 2150 1300 Balance -392 -300 Weight 129.5 kg Intake: IV 800 800 Sodium Chloride 0.9% 1, 800 800 000 ml @ 100 mls/hr IV . Q10H [facility] Rx#:[id number] Oral 958 200 Output: Urine 2150 1300 Other: Voiding Method Indwelling Catheter Indwelling Catheter Indwelling Catheter # Bowel Movements 1 - Exam General appearance: The patient is alert, oriented, in no acute distress. HET: Head is normocephalic and atraumatic. Pupils are equal and reactive. Oropharynx is clear without lesions. Neck: Supple without lymphadenopathy. Trachea midline. Heart: S1 S2. Regular rate and rhythm. Lungs: Mild expiratory wheezes slight diminishment right upper lobe as well as in bilateral bases. No crackles. Abdomen: Soft, nontender, nondistended with bowel sounds. No peritoneal signs. No palpable organomegaly or masses. Extremities: Trace edema right groin wound clean dressing. Neurological: No focal deficits. Strength and sensation are grossly intact. - Labs CBC & Chem 7: 08/07/16 12:00 08/07/16 12:00 Labs: Abnormal Lab Results - Last 24 Hours (Table) 08/06/16 08/06/16 08/06/16 Range/Units 16:31 18:52 20:53 RBC 2.56 L (3.80-5.40) m/uL Hgb 7.5 L (11.4-16.0) gm/dL Hct 23.0 L (34.0-46.0) % RDW 17.6 H (11.5-15.5) % Plt Count 115 L (150-450) k/uL Neutrophils # 7.9 H (1.3-7.7) k/uL Lymphocytes # 0.6 L (1.0-4.8) k/uL PT (9.0-12.0) sec Sodium (137-145) mmol/L BUN (7-17) mg/dL Glucose (74-99) mg/dL POC Glucose (mg/dL) 215 H 207 H (75-99) mg/dL Calcium (8.4-10.2) mg/dL AST (14-36) U/L Total Protein (6.3-8.2) g/dL Albumin (3.5-5.0) g/dL 08/07/16 08/07/16 08/07/16 Range/Units 06:10 12:00 12:00 RBC 2.20 L (3.80-5.40) m/uL Hgb 6.3 L* (11.4-16.0) gm/dL Hct 20.2 L (34.0-46.0) % RDW 17.5 H (11.5-15.5) % Plt Count 125 L (150-450) k/uL Neutrophils # (1.3-7.7) k/uL Lymphocytes # 0.6 L (1.0-4.8) k/uL PT (9.0-12.0) sec Sodium 132 L (137-145) mmol/L BUN 46 H (7-17) mg/dL Glucose 308 H (74-99) mg/dL POC Glucose (mg/dL) 297 H (75-99) mg/dL Calcium 7.2 L (8.4-10.2) mg/dL AST 12 L (14-36) U/L Total Protein 4.0 L (6.3-8.2) g/dL Albumin 1.8 L (3.5-5.0) g/dL 08/07/16 08/07/16 Range/Units 12:00 12:06 RBC (3.80-5.40) m/uL Hgb (11.4-16.0) gm/dL Hct (34.0-46.0) % RDW (11.5-15.5) % Plt Count (150-450) k/uL Neutrophils # (1.3-7.7) k/uL Lymphocytes # (1.0-4.8) k/uL PT 39.4 H (9.0-12.0) sec Sodium (137-145) mmol/L BUN (7-17) mg/dL Glucose (74-99) mg/dL POC Glucose (mg/dL) 350 H (75-99) mg/dL Calcium (8.4-10.2) mg/dL AST (14-36) U/L Total Protein (6.3-8.2) g/dL Albumin (3.5-5.0) g/dL Microbiology - Last 24 Hours (Table) 08/04/16 17:10 Gram Stain - Final Abdomen Wound Culture - Final Pseudomonas aeruginosa Enterococcus faecium VRE 08/04/16 17:10 Blood Culture Gram Stain - Final Blood Blood Culture - Final Enterococcus faecium VRE 08/06/16 13:33 Blood Culture Gram Stain - Preliminary Blood 08/06/16 13:33 Blood Culture - Final Blood 08/04/16 17:25 Urine Culture - Preliminary Urine,Catheterized Yeast species Assessment and Plan Plan: This 76-year-old female with advanced COPD and symptomatic anemia as well as coagulopathy and finding of blood in her stools, may require a colonoscopy when she is stable. Her last colonoscopy was 4 or 5 years ago and her last upper endoscopy was in February of this year. I have not scheduled her colonoscopy at this time and will monitor closely and would always weigh the risk-benefit because her age and her multiple medical problems and the surgical risk even if pathology is identified. I will discuss with you and follow with you closely with interest.
[2016-08-08 03:10] LABS: Prothrombin Time 55.3 sec (9.0-12.0)
[2016-08-08 03:18] LABS: INR 5.5 (<1.1)
[2016-08-08 03:20] LABS: ALT 29 U/L (9-52); AST 17 U/L (14-36); Alkaline Phosphatase 46 U/L (38-126); Anion Gap 8 mmol/L; Blood Urea Nitrogen 44 mg/dL (7-17); Calcium 7.3 mg/dL (8.4-10.2); Carbon Dioxide 21 mmol/L (22-30); Chloride 101 mmol/L (98-107); Glucose 344 mg/dL (74-99); Non-African American GFR(MDRD) 54 (>60 ml/min/1.73 sqM); Potassium 4.7 mmol/L (3.5-5.1); Sodium 130 mmol/L (137-145); Total Bilirubin 0.1 mg/dL (0.2-1.3); Total Protein 4.1 g/dL (6.3-8.2)
[2016-08-08] MEDS ORDERED: PHYTONADIONE ORAL 5 MG/5 ML ORAL.SYRG PO STA (03:32)
[2016-08-08 06:50] LABS: Anisocytosis Slight; Basophils % (A) 0 %; CH 29.3; CHCM 32.5; Eosinophils % (A) 0 %; HCT 23.8 % (34.0-46.0); HDW 3.53; Hypochromasia Slight; Luc # (Auto) 0.27; Luc % (Auto) 2; Lymphocytes # (A) 1.1 k/uL (1.0-4.8); Lymphocytes % (A) 9 %; MCH 29.6 pg (25.0-35.0); MCHC 32.6 g/dL (31.0-37.0); MCV 90.9 fL (80.0-100.0); Mean Platelet Volume 8.7; Monocytes # (A) 0.4 k/uL (0-1.0); Monocytes % (A) 4 %; Neutrophils # (A) 10.5 k/uL (1.3-7.7); Neutrophils % (A) 85 %; Poikilocytosis Slight; RBC 2.62 m/uL (3.80-5.40); RDW 17.2 % (11.5-15.5); WBC 12.3 k/uL (3.8-10.6); WBC (Perox) 12.42
[2016-08-08] MEDS: INSULIN LISPRO (humaLOG) 300 UNIT/3 ML VIAL SQ SCH ×3 (06:54→17:07)
[2016-08-08] MEDS: FERROUS SULFATE 325 MG TAB PO SCH ×2 (06:54→17:07)
[2016-08-08 06:58] LABS: Glucose,Whole Blood 375 mg/dL (75-99)
[2016-08-08 07:18] LABS: HGB 7.8 gm/dL (11.4-16.0)
[2016-08-08] MEDS: ENOXAPARIN 120 MG/0.8 ML SYRINGE SQ SCH (07:43)
[2016-08-08] MEDS: LINEZOLID 600 MG in DEXTROSE/WATER 1 300ML.BAG IVPB SCH ×2 (07:49→20:23)
[2016-08-08] MEDS: FUROSEMIDE 10 MG/ML 4 ML VIAL IV SCH ×2 (07:50→21:38)
[2016-08-08] MEDS: ALPRAZolam 0.25 MG TAB PO SCH ×2 (07:50→21:37)
[2016-08-08] MEDS: guaiFENesin 600 MG TABLET.ER PO SCH ×2 (07:50→21:37)
[2016-08-08] MEDS: Acetaminophen-Codeine 300-30mg TAB PO PRN ×2 (07:50→16:15)
[2016-08-08] MEDS: ALLOPURINOL 100 MG TAB PO SCH (07:52)
[2016-08-08] MEDS: DIGOXIN 125 MCG TAB PO SCH (07:52)
[2016-08-08] MEDS: INSULIN DETEMIR 100 UNIT/ML 10 ML VIAL SQ SCH ×2 (07:52→21:47)
[2016-08-08] MEDS: METOPROLOL SUCCINATE (ER) 100 MG TAB.ER.24H PO SCH ×2 (07:52→21:37)
[2016-08-08] MEDS: DOCUSATE 100 MG CAP PO SCH ×2 (07:53→21:37)
[2016-08-08] MEDS: PANTOPRAZOLE 40 MG TABLET PO SCH (07:54)
[2016-08-08] MEDS: SPIRONOLACTONE 25 MG TAB PO SCH (07:54)
[2016-08-08] MEDS: BUDESONIDE 1 MG/2 ML NEBU INHALATION SCH ×2 (08:57→20:20)
[2016-08-08] MEDS: IPRATROPIUM-ALBUTEROL 3 ML NEB INHALATION SCH ×4 (08:57→20:20)
--- NOTE | 2016-08-08 10:24 | P.PN ---
Subjective 76-year-old female being seen and examined this morning currently resting in bed. Nasal cannula at 3 L sats are 95% patient is afebrile patient states breathing feels slightly improved. Chief complaint this morning "tired out did note the hemoglobin this morning is 7.8 it was 6.3 at noon yesterday the INR at 3:00 in the morning was 5.5 Coumadin is being held patient on Lovenox 120 mg every 12 which is being held no stool documented Objective - Vital Signs Vital signs: Vital Signs Temp 98.8 F 08/08/16 08:00 Pulse 102 H 08/08/16 09:09 Resp 19 08/08/16 08:00 BP 135/80 08/08/16 08:00 Pulse Ox 94 L 08/08/16 08:59 Intake & Output 08/07/16 08/08/16 08/08/16 18:59 06:59 18:59 Intake Total 770 125 Output Total 800 Balance -30 125 Weight 126 kg Intake: Intake, IV Titration 150 Amount Linezolid 600 mg In 150 Dextrose/Water 1 300ml. bag @ 150 mls/hr IVPB Q12HR [facility] Rx#:[id number] Oral 125 Blood Product 620 Rc As-1 Unit 310 [id number] Output: Urine 800 Other: Voiding Method Indwelling Catheter Indwelling Catheter Indwelling Catheter - Exam Physical exam 76-year-old female resting in bed opens eyes to verbal stimuli chief complaint this morning feeling tired out Lungs anterior diminished at the bases otherwise adequate air movement on 3 L nasal cannula sats are greater than 94% no cough noted no wheezing heart S1-S1 S2 audible irregular monitor atrial fibrillation controlled ventricular response denying chest pain Abdomen obese soft nontender indwelling Urrutia catheter in place no reports of nausea vomiting Extremities dressing to the left inner groin dry decrease edema to the bilateral lower extremities - Labs CBC & Chem 7: 08/08/16 06:31 08/08/16 02:47 Labs: Abnormal Lab Results - Last 24 Hours (Table) 08/04/16 08/07/16 08/07/16 Range/Units 18:07 12:00 12:00 WBC (3.8-10.6) k/uL RBC 2.20 L (3.80-5.40) m/uL Hgb 6.3 L* (11.4-16.0) gm/dL Hct 20.2 L (34.0-46.0) % RDW 17.5 H (11.5-15.5) % Plt Count 125 L (150-450) k/uL Neutrophils # (1.3-7.7) k/uL Lymphocytes # 0.6 L (1.0-4.8) k/uL PT (9.0-12.0) sec INR (<1.1) Sodium 132 L (137-145) mmol/L Carbon Dioxide (22-30) mmol/L BUN 46 H (7-17) mg/dL Glucose 308 H (74-99) mg/dL POC Glucose (mg/dL) (75-99) mg/dL Calcium 7.2 L (8.4-10.2) mg/dL Total Bilirubin (0.2-1.3) mg/dL AST 12 L (14-36) U/L Total Protein 4.0 L (6.3-8.2) g/dL Albumin 1.8 L (3.5-5.0) g/dL Crossmatch See Detail 08/07/16 08/07/16 08/07/16 Range/Units 12:00 12:06 17:17 WBC (3.8-10.6) k/uL RBC (3.80-5.40) m/uL Hgb (11.4-16.0) gm/dL Hct (34.0-46.0) % RDW (11.5-15.5) % Plt Count (150-450) k/uL Neutrophils # (1.3-7.7) k/uL Lymphocytes # (1.0-4.8) k/uL PT 39.4 H (9.0-12.0) sec INR (<1.1) Sodium (137-145) mmol/L Carbon Dioxide (22-30) mmol/L BUN (7-17) mg/dL Glucose (74-99) mg/dL POC Glucose (mg/dL) 350 H 341 H (75-99) mg/dL Calcium (8.4-10.2) mg/dL Total Bilirubin (0.2-1.3) mg/dL AST (14-36) U/L Total Protein (6.3-8.2) g/dL Albumin (3.5-5.0) g/dL Crossmatch 08/07/16 08/08/16 08/08/16 Range/Units 20:58 00:35 02:47 WBC (3.8-10.6) k/uL RBC (3.80-5.40) m/uL Hgb (11.4-16.0) gm/dL Hct (34.0-46.0) % RDW (11.5-15.5) % Plt Count (150-450) k/uL Neutrophils # (1.3-7.7) k/uL Lymphocytes # (1.0-4.8) k/uL PT (9.0-12.0) sec INR (<1.1) Sodium 130 L (137-145) mmol/L Carbon Dioxide 21 L (22-30) mmol/L BUN 44 H (7-17) mg/dL Glucose 344 H (74-99) mg/dL POC Glucose (mg/dL) 334 H (75-99) mg/dL Calcium 7.3 L (8.4-10.2) mg/dL Total Bilirubin 0.1 L (0.2-1.3) mg/dL AST (14-36) U/L Total Protein 4.1 L (6.3-8.2) g/dL Albumin 1.9 L (3.5-5.0) g/dL Crossmatch See Detail 08/08/16 08/08/16 08/08/16 Range/Units 02:47 06:31 06:47 WBC 12.3 H (3.8-10.6) k/uL RBC 2.62 L (3.80-5.40) m/uL Hgb 7.8 L D (11.4-16.0) gm/dL Hct 23.8 L (34.0-46.0) % RDW 17.2 H (11.5-15.5) % Plt Count 141 L (150-450) k/uL Neutrophils # 10.5 H (1.3-7.7) k/uL Lymphocytes # (1.0-4.8) k/uL PT 55.3 H (9.0-12.0) sec INR 5.5 H* (<1.1) Sodium (137-145) mmol/L Carbon Dioxide (22-30) mmol/L BUN (7-17) mg/dL Glucose (74-99) mg/dL POC Glucose (mg/dL) 375 H (75-99) mg/dL Calcium (8.4-10.2) mg/dL Total Bilirubin (0.2-1.3) mg/dL AST (14-36) U/L Total Protein (6.3-8.2) g/dL Albumin (3.5-5.0) g/dL Crossmatch Microbiology - Last 24 Hours (Table) 08/04/16 17:25 Urine Culture - Final Urine,Catheterized Gabriela glabrata 08/06/16 13:33 Blood Culture Gram Stain - Preliminary Blood Blood Culture - Preliminary Group D Enterococcus 08/06/16 13:45 Blood Culture - Preliminary Blood No Growth after 24 hours 08/04/16 17:10 Gram Stain - Final Abdomen Wound Culture - Final Pseudomonas aeruginosa Enterococcus faecium VRE 08/04/16 17:10 Blood Culture Gram Stain - Final Blood Blood Culture - Final Enterococcus faecium VRE 08/06/16 13:33 Blood Culture - Final Blood Assessment and Plan Plan: 1. Acute on chronic anemia. Stool for occult blood positive. EGD in February 2016 was negative. Patient was unable to tolerate colonoscopy in April secondary to Patient's during her hospitalization. GI service was consulted to evaluate patient for possible colonoscopy. At this time there is no scheduled for colonoscopy due to patient's respiratory status. Patient is hesitant to proceed with procedure. Iron deficiency anemia continue with her ferrous sulfate 2. Acute blood loss anemia with stool positive occult blood. Likely related to the coagulopathy. Patient did require 1 unit of blood. Hemoglobin 8.0. Continue to monitor. Check CBC in a.m. 3. Acute on chronic systolic CHF exacerbation: Echo from April 2016 shows an EF of 40-45%. Patient had elevated BNP on admission and chest x-ray showing evidence of congestive heart failure with patchy atelectasis. We will start patient on IV Lasix 40 mg every 12 hours and consult cardiology 4. UTI: With recent urine culture growing Enterobacter Colace and Pseudomonas aeruginosa. Patient had been on Levaquin outpatient. Awaiting repeat urine culture. Continue with Levaquin 5. MRSA bacterial pneumonia has been maintained on IV vancomycin via PICC line at the correction. Continue antibiotics per infectious disease Continue to monitor 6. Chronic atrial fibrillation: Since patient is not proceeding with colonoscopy at this time.. Coumadin on hold INR 5.5 today. Chronic debility limited mobility suspect due to comorbidities INR is pending this morning 7. Coagulopathy on admission with an INR of 7.2. Patient did receive vitamin K. Monitor daily PT/INR's 8. Atelectasis noted on chest x-ray: Add incentive spirometer. also will resume patient's flutter valve 9. Essential hypertension: Elevated blood pressures. Resume blood pressure medications also she was started on IV Lasix. Continue to monitor 10. Ischemia of the left leg status post thrombectomy with Dr. García. Patient requiring anticoagulation 11. History of COPD. Appears stable. Only had 2 more days of prednisone taper. Patient is not wheezing. We'll add nebulizer treatments 4 times a day and as needed 12. Diabetes mellitus type 2: Patient had lower blood sugars on admission. Blood sugar this morning was only 80. We'll continue with sliding scale and monitor. #13 chronic debility limited mobility suspect due to chronic illness #14 morbid obesity BMI 42 Continue with the GI prophylaxis protonic DVT prophylaxis current Lovenox is on hold the INR is 5.5 The above dictated assessment and findings were discussed with dr yuri Cramer and the plan of care have been dictated as directed. Muriel Goodman nurse practitioner acting as a scribe for dr welch
[2016-08-08 11:51] LABS: Glucose,Whole Blood 316 mg/dL (75-99)
--- NOTE | 2016-08-08 16:00 | P.PN ---
Subjective Principal diagnosis: Weakness and shortness of breath 76-year-old female who has a history of extensive hospitalizations earlier this year. She is evidence of the extensive lung disease. 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 She has sleep apnea. During a recent hospital stay she had evidence of extensive illness including the large clot from the left leg that required endarterectomy with patch angioplasty. She has significant difficulties at that site. She had pneumonia and infection at the left leg site. MRSA pneumonia was noted. She was sent to rehab to receive her course of antibiotic therapy. Presents to Hospital feeling very poorly. On evidence of an elevated INR of 7.2. Hemoglobin was only 6.9. She was weak and short of breath. She is now had transfusion. In receiving antibiotic therapy. Infectious diseases consultation follow-up is being done because of VRE being isolated from her blood. Patient still feels very poorly. Her appetite is poor she's having difficulty eating because she so short of breath.Does feel slightly better today. Objective - Vital Signs Vital signs: Vital Signs Temp 98.0 F 08/08/16 11:34 Pulse 100 08/08/16 12:10 Resp 20 08/08/16 11:34 BP 130/78 08/08/16 11:34 Pulse Ox 95 08/08/16 11:34 Intake & Output 08/07/16 08/08/16 08/08/16 18:59 06:59 18:59 Intake Total 770 200 Output Total 800 Balance -30 200 Weight 126 kg Intake: Intake, IV Titration 150 Amount Linezolid 600 mg In 150 Dextrose/Water 1 300ml. bag @ 150 mls/hr IVPB Q12HR [facility] Rx#:[id number] Oral 200 Blood Product 620 Rc As-1 Unit 310 [id number] Output: Urine 800 Other: Voiding Method Indwelling Catheter Indwelling Catheter Indwelling Catheter - Exam 76-year-old woman who relates she is feeling short of breath and has difficulty eating because she short of breath. HEENT: Anicteric conjunctiva are pink and moist nasal mucosa grossly intact without significant lesions, there is no thrush. Worn dentition Neck: The neck is supple without significant lymphadenopathy or thyromegaly. Lungs: Symmetrical air entry is noted. Wheezes throughout the lung olivares is noted, Bibasilar crackles are heard no dullness is noted no egophony is appreciated. Heart: Regular rate and rhythm with an audible S1-S2, no S3 soft S4, There is no significant murmur click or rub, PMI was nondisplaced. Abdomen: Obese, Positive bowel sounds soft and nontender without palpable masses or organomegaly. There was no guarding or rebound. Extremities: The upper and lower extremity is have some generalized edema. However no open ulcerations are seen. The entry site for the thrombectomy is without bleeding drainage or evidence of infection or tenderness Neuro: Awake alert oriented to person place and time. There are no acute new gross focal sensory motor deficits. She has significant generalized weakness though - Labs CBC & Chem 7: 08/08/16 06:31 08/08/16 02:47 Labs: Abnormal Lab Results - Last 24 Hours (Table) 08/04/16 08/07/16 08/07/16 Range/Units 18:07 17:17 20:58 WBC (3.8-10.6) k/uL RBC (3.80-5.40) m/uL Hgb (11.4-16.0) gm/dL Hct (34.0-46.0) % RDW (11.5-15.5) % Plt Count (150-450) k/uL Neutrophils # (1.3-7.7) k/uL PT (9.0-12.0) sec INR (<1.1) Sodium (137-145) mmol/L Carbon Dioxide (22-30) mmol/L BUN (7-17) mg/dL Glucose (74-99) mg/dL POC Glucose (mg/dL) 341 H 334 H (75-99) mg/dL Calcium (8.4-10.2) mg/dL Total Bilirubin (0.2-1.3) mg/dL Total Protein (6.3-8.2) g/dL Albumin (3.5-5.0) g/dL Crossmatch See Detail 08/08/16 08/08/16 08/08/16 Range/Units 00:35 02:47 02:47 WBC (3.8-10.6) k/uL RBC (3.80-5.40) m/uL Hgb (11.4-16.0) gm/dL Hct (34.0-46.0) % RDW (11.5-15.5) % Plt Count (150-450) k/uL Neutrophils # (1.3-7.7) k/uL PT 55.3 H (9.0-12.0) sec INR 5.5 H* (<1.1) Sodium 130 L (137-145) mmol/L Carbon Dioxide 21 L (22-30) mmol/L BUN 44 H (7-17) mg/dL Glucose 344 H (74-99) mg/dL POC Glucose (mg/dL) (75-99) mg/dL Calcium 7.3 L (8.4-10.2) mg/dL Total Bilirubin 0.1 L (0.2-1.3) mg/dL Total Protein 4.1 L (6.3-8.2) g/dL Albumin 1.9 L (3.5-5.0) g/dL Crossmatch See Detail 08/08/16 08/08/16 08/08/16 Range/Units 06:31 06:47 11:48 WBC 12.3 H (3.8-10.6) k/uL RBC 2.62 L (3.80-5.40) m/uL Hgb 7.8 L D (11.4-16.0) gm/dL Hct 23.8 L (34.0-46.0) % RDW 17.2 H (11.5-15.5) % Plt Count 141 L (150-450) k/uL Neutrophils # 10.5 H (1.3-7.7) k/uL PT (9.0-12.0) sec INR (<1.1) Sodium (137-145) mmol/L Carbon Dioxide (22-30) mmol/L BUN (7-17) mg/dL Glucose (74-99) mg/dL POC Glucose (mg/dL) 375 H 316 H (75-99) mg/dL Calcium (8.4-10.2) mg/dL Total Bilirubin (0.2-1.3) mg/dL Total Protein (6.3-8.2) g/dL Albumin (3.5-5.0) g/dL Crossmatch Microbiology - Last 24 Hours (Table) 08/06/16 13:45 Blood Culture - Preliminary Blood No Growth after 48 hours 08/04/16 17:25 Urine Culture - Final Urine,Catheterized Gabriela glabrata 08/06/16 13:33 Blood Culture Gram Stain - Preliminary Blood Blood Culture - Preliminary Group D Enterococcus 08/04/16 17:10 Gram Stain - Final Abdomen Wound Culture - Final Pseudomonas aeruginosa Enterococcus faecium VRE 08/04/16 17:10 Blood Culture Gram Stain - Final Blood Blood Culture - Final Enterococcus faecium VRE Microbiology 08/06/16 13:45 Blood Blood Culture - Preliminary No Growth after 48 hours 08/04/16 17:25 Urine,Catheterized Urine Culture - Final Gabriela glabrata 08/06/16 13:33 Blood Blood Culture Gram Stain - Preliminary 08/06/16 13:33 Blood Blood Culture - Preliminary Group D Enterococcus 08/04/16 17:10 Abdomen Gram Stain - Final 08/04/16 17:10 Abdomen Wound Culture - Final Pseudomonas aeruginosa Enterococcus faecium VRE 08/04/16 17:10 Blood Blood Culture Gram Stain - Final 08/04/16 17:10 Blood Blood Culture - Final Enterococcus faecium VRE 08/06/16 13:33 Blood Blood Culture - Final 08/04/16 17:10 Blood Blood Culture - Final Assessment and Plan (1) Warfarin-induced coagulopathy Status: Acute (2) Vancomycin resistant Enterococcal septicemia Narrative/Plan: 76-year-old female who has extensive COPD with multiple complications that include chronic atrial fibrillation, chronic anemia, a intestinal bleeding , diabetes and a recent MRSA pneumonia. Presents from the extended care facility with marked increased weakness shortness of breath and fatigue. Was found evidence of a gastrointestinal bleed, Coumadin coagulopathy and evidence of fever. There is no been evidence of vancomycin-resistant enterococci be nicely from her blood and several events. She is a PICC line in the left arm is noted. Concern is this is the source. Consequently when possible would like to have a new IV placed. Her PICC line removed. Since she's been treated with Zyvox that could be switched to oral and hopefully would not need long- term IV antibiotics at this time. Her coagulopathy is being treated. Ongoing attempts to improve her blood sugars. Her COPD is quite problematic given her significant anemia and worsening shortness of breath. Overall prognosis is very poor. Blood cultures from 08/06 1 of 2 are still positive. Likely will be the same VRE as before. Continue Zyvox for now. Follow blood cultures requested in the morning. Request for PICC line removal peripheral IV placement. Status: Acute
--- NOTE | 2016-08-08 16:46 | PN ---
Mrs. South is a 76-year-old female with known history of chronic persistent atrial fibrillation, GI bleeding, history of embolic phenomena to lower extremity, diabetes mellitus. She is feeling better this morning. Her breathing is better. She denies any symptoms of chest discomfort. She denies any dizziness or palpitation. She is supine without significant dyspnea. She continues to be at this time on Lasix 40 mg IV q.8-12h, Aldactone 25 mg daily, metoprolol succinate 200 mg twice a day. PHYSICAL EXAMINATION: Blood pressure 135/80 with a heart rate in the 70s. LUNGS: Clear. HEART: Irregularly irregular. S1, S2, no S3, with systolic murmur. ABDOMEN: Soft, obese, nontender, with abdominal wall edema. EXTREMITIES: With 2+ edema bilaterally. Lab data revealed a hemoglobin of 7.8. Her BUN and creatinine of 44 to 1.1. Potassium 4.7. IMPRESSION: 1. Persistent chronic atrial fibrillation. Her INR remains elevated at 5.5. 2. Gastrointestinal bleeding. 3. Morbid obesity. 4. Embolic phenomena. RECOMMENDATIONS: Will continue on the IV Lasix at this point. I will hold her Lovenox as she remains with a very high INR. She has been losing weight. She still has a lot of extra fluids. [facility]
[2016-08-08 16:48] LABS: Glucose,Whole Blood 274 mg/dL (75-99)
[2016-08-08 20:55] LABS: Glucose,Whole Blood 253 mg/dL (75-99)
[2016-08-08] MEDS: POLYETHYLENE GLYCOL 3350 17 GM POWD.PACK PO SCH (21:36)
[2016-08-08] MEDS: MONTELUKAST 10 MG TAB PO SCH (21:37)
[2016-08-08] MEDS: LEVOFLOXACIN 750 MG TAB PO SCH (21:48)
[2016-08-09 06:00] LABS: Glucose,Whole Blood 197 mg/dL (75-99)
[2016-08-09 06:26] LABS: Anisocytosis Slight; Basophils % (A) 0 %; CH 29.4; CHCM 31.9; Eosinophils % (A) 0 %; HCT 23.6 % (34.0-46.0); HGB 7.6 gm/dL (11.4-16.0); Hypochromasia Slight; Luc # (Auto) 0.25; Luc % (Auto) 3; Lymphocytes % (A) 11 %; MCH 29.7 pg (25.0-35.0); MCV 92.9 fL (80.0-100.0); Mean Platelet Volume 8.3; Monocytes # (A) 0.5 k/uL (0-1.0); Monocytes % (A) 5 %; Neutrophils % (A) 82 %; Poikilocytosis Slight; RBC 2.54 m/uL (3.80-5.40); RDW 17.5 % (11.5-15.5); WBC 9.8 k/uL (3.8-10.6); WBC (Perox) 10.58
[2016-08-09 06:35] LABS: INR 2.3 (<1.1); Prothrombin Time 22.3 sec (9.0-12.0)
[2016-08-09 06:36] LABS: Calcium 7.7 mg/dL (8.4-10.2); Potassium 4.6 mmol/L (3.5-5.1); Total Bilirubin 0.2 mg/dL (0.2-1.3); Total Protein 4.4 g/dL (6.3-8.2)
[2016-08-09] MEDS: INSULIN LISPRO (humaLOG) 300 UNIT/3 ML VIAL SQ SCH ×3 (06:55→17:24)
[2016-08-09] MEDS: FERROUS SULFATE 325 MG TAB PO SCH ×2 (06:55→17:24)
[2016-08-09] MEDS: guaiFENesin 600 MG TABLET.ER PO SCH ×2 (08:11→21:29)
[2016-08-09] MEDS: DOCUSATE 100 MG CAP PO SCH ×2 (08:11→21:28)
[2016-08-09] MEDS: ALPRAZolam 0.25 MG TAB PO SCH ×2 (08:12→21:28)
[2016-08-09] MEDS: METOPROLOL SUCCINATE (ER) 100 MG TAB.ER.24H PO SCH ×2 (08:12→21:28)
[2016-08-09] MEDS: DIGOXIN 125 MCG TAB PO SCH (08:12)
[2016-08-09] MEDS: PANTOPRAZOLE 40 MG TABLET PO SCH (08:12)
[2016-08-09] MEDS: SPIRONOLACTONE 25 MG TAB PO SCH (08:12)
[2016-08-09] MEDS: FUROSEMIDE 10 MG/ML 4 ML VIAL IV SCH ×2 (08:12→18:53)
[2016-08-09] MEDS: LINEZOLID 600 MG in DEXTROSE/WATER 1 300ML.BAG IVPB SCH ×2 (08:12→21:30)
[2016-08-09] MEDS: ALLOPURINOL 100 MG TAB PO SCH (08:12)
[2016-08-09] MEDS: INSULIN DETEMIR 100 UNIT/ML 10 ML VIAL SQ SCH ×2 (08:12→21:30)
[2016-08-09] MEDS: BUDESONIDE 1 MG/2 ML NEBU INHALATION SCH ×2 (08:22→20:23)
[2016-08-09] MEDS: IPRATROPIUM-ALBUTEROL 3 ML NEB INHALATION SCH ×4 (08:22→20:23)
[2016-08-09] MEDS: Acetaminophen-Codeine 300-30mg TAB PO PRN (10:24)
[2016-08-09 11:53] LABS: Glucose,Whole Blood 194 mg/dL (75-99)
--- NOTE | 2016-08-09 11:57 | P.PN ---
Subjective Principal diagnosis: CHF This is a 76-year-old female with history of chronic persistent atrial fibrillation, GI bleeding, embolic phenomenon to her lower extremities, diabetes , hyperlipidemia, who was admitted to the hospital initially because of elevated INR. She resides at a retirement. Patient was also found to be in congestive cardiac failure and was initiated on IV Lasix. She was seen and examined today, overall she is diuresing well, her weight is down 1 kg today. Creatinine 1.0, INR 2.3, continues to be on IV Lasix. She has not yet been out of the bed. We will request physical therapy to evaluate and work with the patient. Continue IV Lasix at this time. Objective - Vital Signs Vital signs: Vital Signs Temp 98.4 F 08/09/16 08:25 Pulse 88 08/09/16 08:36 Resp 20 08/09/16 08:25 BP 114/71 08/09/16 08:25 Pulse Ox 98 08/09/16 08:25 Intake & Output 08/08/16 08/09/16 08/09/16 18:59 06:59 18:59 Intake Total 725 650 120 Output Total 250 500 Balance 475 150 120 Weight 125 kg Intake: Intake, IV Titration 150 350 Amount Linezolid 600 mg In 150 350 Dextrose/Water 1 300ml. bag @ 150 mls/hr IVPB Q12HR [facility] Rx#:[id number] Oral 575 300 120 Output: Urine 250 500 Other: Voiding Method Indwelling Catheter Indwelling Catheter Indwelling Catheter - Exam PHYSICAL EXAMINATION: HEENT: Head is atraumatic, normocephalic. Pupils equal, round. Neck is supple. There is no elevated jugular venous pressure. HEART EXAMINATION: Heart S1 and S2 irregularly irregular a systolic murmur is heard. CHEST EXAMINATION: Lungs are clear to auscultation and precussion. No chest wall tenderness is noted on palpation or with deep breathing. ABDOMEN: Soft, obese, nontender. Bowel sounds are heard. No organomegaly noted. Positive abdominal wall edema EXTREMITIES: 1+ peripheral pulses with 1+ evidence of peripheral edema and no calf tenderness noted. NEUROLOGIC patient is awake, alert and oriented -3. . - Labs CBC & Chem 7: 08/09/16 05:34 08/09/16 05:34 Labs: Abnormal Lab Results - Last 24 Hours (Table) 08/08/16 08/08/1608/09/17 Range/Units 16:45 20:54 05:34 RBC (3.80-5.40) m/uL Hgb (11.4-16.0) gm/dL Hct (34.0-46.0) % RDW (11.5-15.5) % Neutrophils # (1.3-7.7) k/uL PT (9.0-12.0) sec Sodium 130 L (137-145) mmol/L BUN 47 H (7-17) mg/dL Creatinine 1.10 H (0.52-1.04) mg/dL Glucose 171 H (74-99) mg/dL POC Glucose (mg/dL) 274 H 253 H (75-99) mg/dL Calcium 7.7 L (8.4-10.2) mg/dL Total Protein 4.4 L (6.3-8.2) g/dL Albumin 2.0 L (3.5-5.0) g/dL 08/09/16 08/09/16 08/09/16 Range/Units 05:34 05:34 05:58 RBC 2.54 L (3.80-5.40) m/uL Hgb 7.6 L (11.4-16.0) gm/dL Hct 23.6 L (34.0-46.0) % RDW 17.5 H (11.5-15.5) % Neutrophils # 8.0 H (1.3-7.7) k/uL PT 22.3 H (9.0-12.0) sec Sodium (137-145) mmol/L BUN (7-17) mg/dL Creatinine (0.52-1.04) mg/dL Glucose (74-99) mg/dL POC Glucose (mg/dL) 197 H (75-99) mg/dL Calcium (8.4-10.2) mg/dL Total Protein (6.3-8.2) g/dL Albumin (3.5-5.0) g/dL Microbiology - Last 24 Hours (Table) 08/06/16 13:33 Blood Culture Gram Stain - Final Blood Blood Culture - Final Enterococcus faecium VRE 08/06/16 13:45 Blood Culture - Preliminary Blood No Growth after 48 hours 08/04/16 17:25 Urine Culture - Final Urine,Catheterized Gabriela glabrata Assessment and Plan (1) Chronic a-fib Status: Acute (2) GI bleed Status: Acute (3) Morbid obesity Status: Acute (4) Embolic phenomenon secondary to atrial fibrillation Status: Acute (5) Elevated INR Status: Acute (6) Systolic CHF, acute on chronic Status: Acute Plan: From cardiology's perspective, we will recommend to continue current dose of IV Lasix. Continue to monitor intake and output along with daily weights and daily lytes BUN and creatinine. Recommend physical therapy consultation. DNP note has been reviewed, I agree with a documented findings and plan of care. Patient was seen and examined.
--- NOTE | 2016-08-09 12:19 | P.PN ---
Subjective This is a 76-year-old female with a known past medical history of chronic atrial fibrillation, CHF, diabetes mellitus type 2, anemia, COPD, left leg ischemia requiring thrombectomy. Patient was discharged from [facility] on 07/29/2016 at that time she was treated for MRSA pneumonia, UTI, COPD exacerbation and CHF exacerbation. Patient has been residing at [facility]. She presents back to the hospital with an INR of 7.2. She had no active signs of bleeding. However hemoglobin was 6.9 and stool for occult blood was positive. She did receive 1 unit of blood hemoglobin is at 8.0. Patient is followed by GI service. Hemoglobin 7.6 today. She did receive 1 unit of blood early yesterday morning. Her INR is now down to 2.3 after some vitamin K. She still having some shortness of breath and cough. She denies any chest pain. Denies any nausea or vomiting. She reports having formed stool no bleeding. Denies any burning with urination. Patient also has positive blood cultures currently on Zyvox and Levaquin. Infectious disease following. Objective - Vital Signs Vital signs: Vital Signs Temp 98.4 F 08/09/16 08:25 Pulse 88 08/09/16 08:36 Resp 20 08/09/16 08:25 BP 114/71 08/09/16 08:25 Pulse Ox 98 08/09/16 08:25 Intake & Output 08/08/16 08/09/16 08/09/16 18:59 06:59 18:59 Intake Total 725 650 120 Output Total 250 500 Balance 475 150 120 Weight 125 kg Intake: Intake, IV Titration 150 350 Amount Linezolid 600 mg In 150 350 Dextrose/Water 1 300ml. bag @ 150 mls/hr IVPB Q12HR [facility] Rx#:[id number] Oral 575 300 120 Output: Urine 250 500 Other: Voiding Method Indwelling Catheter Indwelling Catheter Indwelling Catheter - Exam Head normocephalic Neck supple Lungs coarse breath sounds bilaterally Heart regular rate and rhythm S1-S2, no rub or gallop Abdomen is soft nontender nondistended positive bowel sounds no hepatosplenomegaly Extremities edema present in arms and legs Neuro alert and orientated to 3 - Labs CBC & Chem 7: 08/09/16 05:34 08/09/16 05:34 Labs: Abnormal Lab Results - Last 24 Hours (Table) 08/08/16 08/08/16 08/09/16 Range/Units 16:45 20:54 05:34 RBC (3.80-5.40) m/uL Hgb (11.4-16.0) gm/dL Hct (34.0-46.0) % RDW (11.5-15.5) % Neutrophils # (1.3-7.7) k/uL PT (9.0-12.0) sec Sodium 130 L (137-145) mmol/L BUN 47 H (7-17) mg/dL Creatinine 1.10 H (0.52-1.04) mg/dL Glucose 171 H (74-99) mg/dL POC Glucose (mg/dL) 274 H 253 H (75-99) mg/dL Calcium 7.7 L (8.4-10.2) mg/dL Total Protein 4.4 L (6.3-8.2) g/dL Albumin 2.0 L (3.5-5.0) g/dL 08/09/16 08/09/16 08/09/16 Range/Units 05:34 05:34 05:58 RBC 2.54 L (3.80-5.40) m/uL Hgb 7.6 L (11.4-16.0) gm/dL Hct 23.6 L (34.0-46.0) % RDW 17.5 H (11.5-15.5) % Neutrophils # 8.0 H (1.3-7.7) k/uL PT 22.3 H (9.0-12.0) sec Sodium (137-145) mmol/L BUN (7-17) mg/dL Creatinine (0.52-1.04) mg/dL Glucose (74-99) mg/dL POC Glucose (mg/dL) 197 H (75-99) mg/dL Calcium (8.4-10.2) mg/dL Total Protein (6.3-8.2) g/dL Albumin (3.5-5.0) g/dL 08/09/16 Range/Units 11:50 RBC (3.80-5.40) m/uL Hgb (11.4-16.0) gm/dL Hct (34.0-46.0) % RDW (11.5-15.5) % Neutrophils # (1.3-7.7) k/uL PT (9.0-12.0) sec Sodium (137-145) mmol/L BUN (7-17) mg/dL Creatinine (0.52-1.04) mg/dL Glucose (74-99) mg/dL POC Glucose (mg/dL) 194 H (75-99) mg/dL Calcium (8.4-10.2) mg/dL Total Protein (6.3-8.2) g/dL Albumin (3.5-5.0) g/dL Microbiology - Last 24 Hours (Table) 08/06/16 13:33 Blood Culture Gram Stain - Final Blood Blood Culture - Final Enterococcus faecium VRE 08/06/16 13:45 Blood Culture - Preliminary Blood No Growth after 48 hours 08/04/16 17:25 Urine Culture - Final Urine,Catheterized Gabriela glabrata Assessment and Plan Plan: 1. Acute on chronic anemia. Stool for occult blood positive. EGD in February 2016 was negative. Patient was unable to tolerate colonoscopy in April secondary to Patient's during her hospitalization. GI service was consulted to evaluate patient for possible colonoscopy. At this time there is no scheduled for colonoscopy due to patient's respiratory status. Patient is hesitant to proceed with procedure. Iron deficiency anemia continue with her ferrous sulfate. Await further GI recommendations 2. Acute blood loss anemia with stool positive occult blood. Likely related to the coagulopathy. Patient did require blood transfusions. Hemoglobin is still low at 7.6 3. Acute on chronic systolic CHF exacerbation: Echo from April 2016 shows an EF of 40-45%. Patient had elevated BNP on admission and chest x-ray showing evidence of congestive heart failure with patchy atelectasis. Continue IV Lasix. Cardiology following. 4. UTI: With recent urine culture growing Enterobacter Colace and Pseudomonas aeruginosa. Patient had been on Levaquin outpatient. Repeat urine culture growing Gabriela glabrata. Per infectious disease does not require an antifungal treatment. Patient is asymptomatic. We'll discuss with infectious disease about stopping Levaquin 5. MRSA bacterial pneumonia has been maintained on IV vancomycin via [facility] line at the [facility]. Vancomycin has been restarted. Continue to monitor 6. Chronic atrial fibrillation: Since patient is not proceeding with colonoscopy at this time. INR 2.3. Monitor daily PT/INR's. Give Coumadin 1 mg tonight 7. Coagulopathy on admission with an INR of 7.2. Patient did receive vitamin K. Monitor daily PT/INR's 8. Atelectasis noted on chest x-ray: Add incentive spirometer. also will resume patient's flutter valve 9. Essential hypertension: Elevated blood pressures. Resume blood pressure medications also she was started on IV Lasix. Continue to monitor 10. Ischemia of the left leg status post thrombectomy with Dr. García. Patient requiring anticoagulation 11. History of COPD. Appears stable. Only had 2 more days of prednisone taper. Patient is not wheezing. We'll add nebulizer treatments 4 times a day and as needed 12. Diabetes mellitus type 2: Continue Levemir and sliding scale 13. Bacteremia: Blood cultures growing VRE. Infectious disease following. Concerns that PICC line is the source. Will have PICC line removed and culture tip. Continue to monitor blood cultures. Patient currently on Zyvox 14. Severe protein calorie malnutrition start Emy ye 15. Consult physical therapy GI prophylaxis Protonix and DVT prophylaxis on Coumadin I performed an examination of the patient and discussed their management with the physician Mosquito Sprayer. I have reviewed the Physician Mosquito Sprayer's notes and agree with the documented findings and plan of care
[2016-08-09] MEDS: HYDROmorphone 1 MG/ML 1 ML SYRINGE IV PRN (14:22)
[2016-08-09] MEDS ORDERED: ALBUMIN HUMAN 25% 50 ML in EMPTY BAG 1 BAG IVPB ONE (14:35)
[2016-08-09 17:01] LABS: Glucose,Whole Blood 184 mg/dL (75-99)
[2016-08-09] MEDS ORDERED: WARFARIN 1 MG TAB PO ONE (18:00)
[2016-08-09 21:16] LABS: Glucose,Whole Blood 162 mg/dL (75-99)
[2016-08-09] MEDS: MONTELUKAST 10 MG TAB PO SCH (21:28)
[2016-08-09] MEDS: POLYETHYLENE GLYCOL 3350 17 GM POWD.PACK PO SCH (21:31)
[2016-08-10] MEDS ORDERED: ALBUMIN HUMAN 25% 50 ML in EMPTY BAG 1 BAG IVPB ONE (00:43)
[2016-08-10] MEDS ORDERED: FUROSEMIDE 10 MG/ML 4 ML VIAL IV STA (00:45)
[2016-08-10] MEDS: Acetaminophen-Codeine 300-30mg TAB PO PRN (02:01)
[2016-08-10 05:55] LABS: Glucose,Whole Blood 180 mg/dL (75-99)
[2016-08-10] MEDS: INSULIN LISPRO (humaLOG) 300 UNIT/3 ML VIAL SQ SCH ×3 (06:40→18:56)
[2016-08-10] MEDS: FERROUS SULFATE 325 MG TAB PO SCH ×2 (06:40→16:34)
[2016-08-10] MEDS: IPRATROPIUM-ALBUTEROL 3 ML NEB INHALATION SCH ×4 (06:55→20:41)
[2016-08-10] MEDS: BUDESONIDE 1 MG/2 ML NEBU INHALATION SCH ×2 (06:55→20:40)
[2016-08-10] MEDS: ONDANSETRON 4 MG/2 ML VIAL IVP PRN ×2 (07:58→18:32)
[2016-08-10] MEDS: FUROSEMIDE 10 MG/ML 4 ML VIAL IV SCH ×2 (08:00→21:43)
[2016-08-10] MEDS: HYDROmorphone 1 MG/ML 1 ML SYRINGE IV PRN (08:00)
--- NOTE | 2016-08-10 08:15 | P.PN ---
Subjective Principal diagnosis: Anemia 76-year-old female admitted with Coumadin coagulopathy positive Hemoccult testing with acute on chronic anemia. VRE bacteremia. Increased nausea. Coumadin restarted last night. Denies hematemesis hematochezia or melena. Hemoglobin 7.6 yesterday. Denies abdominal pain. Objective - Vital Signs Vital signs: Vital Signs Temp 97.1 F L 08/10/16 04:00 Pulse 72 08/10/16 07:11 Resp 22 08/10/16 04:00 BP 123/58 08/10/16 04:00 Pulse Ox 97 08/10/16 07:11 Intake & Output 08/09/16 08/10/16 08/10/16 18:59 06:59 18:59 Intake Total 220 0 Output Total 900 800 Balance -680 -800 0 Weight 125.5 kg Intake: Oral 220 0 Output: Urine 900 800 Other: Voiding Method Indwelling Catheter Indwelling Catheter - Exam General appearance: The patient is alert, oriented, in no acute distress but visible with nausea holding emesis basin. HET: Head is normocephalic and atraumatic. Pupils are equal and reactive. Oropharynx is clear without lesions. Neck: Supple without lymphadenopathy. Trachea midline. Heart: S1 S2. Regular rate and rhythm. Lungs: Mild expiratory wheezes slight diminishment right upper lobe as well as in bilateral bases. Slight bibasilar crackles. Abdomen: Soft, nontender, nondistended with bowel sounds. No peritoneal signs. No palpable organomegaly or masses. Extremities: Trace edema right groin wound clean dressing. Neurological: No focal deficits. Strength and sensation are grossly intact. - Labs CBC & Chem 7: 08/09/16 05:34 08/09/16 05:34 Labs: Abnormal Lab Results - Last 24 Hours (Table) 08/09/16 08/09/16 08/09/16 Range/Units 11:50 16:56 21:13 POC Glucose (mg/dL) 194 H 184 H 162 H (75-99) mg/dL 08/10/16 Range/Units 05:52 POC Glucose (mg/dL) 180 H (75-99) mg/dL Microbiology - Last 24 Hours (Table) 08/06/16 13:33 Blood Culture Gram Stain - Final Blood Blood Culture - Final Enterococcus faecium VRE 08/09/16 14:05 Catheter Tip Culture - Preliminary Picc Line 08/06/16 13:45 Blood Culture - Preliminary Blood No Growth after 72 hours Assessment and Plan (1) Chronic anemia Narrative/Plan: Acute on chronic with component of acute blood loss anemia with positive Hemoccult. EGD February 2016 negative. Attempts for colonoscopy April postponed secondary to complications of hospitalization and medical course. Status: Acute (2) Warfarin-induced coagulopathy Status: Acute (3) COPD (chronic obstructive pulmonary disease) Status: Chronic (4) Diabetes mellitus type 2, uncontrolled, with complications Status: Chronic (5) Elevated INR Status: Acute (6) Acute blood loss anemia Status: Acute (7) Chronic a-fib Status: Chronic (8) Ischemia of left lower extremity Status: Resolved (9) Morbid obesity with BMI of 40.0-44.9, adult Status: Chronic (10) Bacteremia Status: Acute Plan: 1. No active bleeding however patient did receive a unit of blood over the weekend for hemoglobin of 6.3. Recent admission for MRSA pneumonia now with VRE bacteremia follow closely by ID. Plans for colonoscopy to evaluate ongoing anemia tentative based on optimization of her medical and pulmonary status. Continue supportive measures. Patient was started back on Coumadin yesterday. Colonoscopy can be pursued as an outpatient. Continue to monitor CBC closely and continue with iron supplementation. Assessment and plan of care discussed with Dr. Mccarthy
[2016-08-10] MEDS: LINEZOLID 600 MG in DEXTROSE/WATER 1 300ML.BAG IVPB SCH (10:46)
[2016-08-10] MEDS: PANTOPRAZOLE 40 MG TABLET PO SCH (10:55)
[2016-08-10] MEDS: guaiFENesin 600 MG TABLET.ER PO SCH ×2 (10:55→21:43)
[2016-08-10] MEDS: ALLOPURINOL 100 MG TAB PO SCH (10:55)
[2016-08-10] MEDS: DOCUSATE 100 MG CAP PO SCH ×2 (10:55→21:42)
[2016-08-10] MEDS: DIGOXIN 125 MCG TAB PO SCH (10:55)
[2016-08-10] MEDS: SPIRONOLACTONE 25 MG TAB PO SCH (10:55)
[2016-08-10] MEDS: METOPROLOL SUCCINATE (ER) 100 MG TAB.ER.24H PO SCH ×2 (10:55→21:44)
[2016-08-10] MEDS: ALPRAZolam 0.25 MG TAB PO SCH ×2 (10:59→21:44)
[2016-08-10] MEDS: INSULIN DETEMIR 100 UNIT/ML 10 ML VIAL SQ SCH ×2 (10:59→21:52)
[2016-08-10 11:54] LABS: Glucose,Whole Blood 170 mg/dL (75-99)
[2016-08-10 15:50] LABS: INR 2.3 (<1.1); Prothrombin Time 21.8 sec (9.0-12.0)
[2016-08-10 16:04] LABS: Anisocytosis Slight; Basophils % (A) 0 %; CH 29.8; CHCM 32.4; Eosinophils # (A) 0.1 k/uL (0-0.7); Eosinophils % (A) 1 %; HCT 22.5 % (34.0-46.0); HDW 3.48; HGB 7.1 gm/dL (11.4-16.0); Hypochromasia Slight; Luc # (Auto) 0.14; Luc % (Auto) 1; Lymphocytes % (A) 10 %; MCH 29.3 pg (25.0-35.0); MCHC 31.7 g/dL (31.0-37.0); MCV 92.5 fL (80.0-100.0); Mean Platelet Volume 10.3; Monocytes # (A) 0.5 k/uL (0-1.0); Monocytes % (A) 5 %; Neutrophils # (A) 8.2 k/uL (1.3-7.7); Neutrophils % (A) 83 %; Poikilocytosis Slight; RBC 2.43 m/uL (3.80-5.40); WBC 9.9 k/uL (3.8-10.6); WBC (Perox) 9.69
[2016-08-10 16:20] LABS: ALT 6 U/L (9-52); AST 31 U/L (14-36); Alkaline Phosphatase 53 U/L (38-126); Anion Gap 8 mmol/L; Blood Urea Nitrogen 45 mg/dL (7-17); Calcium 7.5 mg/dL (8.4-10.2); Carbon Dioxide 22 mmol/L (22-30); Chloride 101 mmol/L (98-107); Glucose 121 mg/dL (74-99); Non-African American GFR(MDRD) 53 (>60 ml/min/1.73 sqM); Potassium 4.6 mmol/L (3.5-5.1); Sodium 131 mmol/L (137-145); Total Bilirubin 0.5 mg/dL (0.2-1.3); Total Protein 4.5 g/dL (6.3-8.2)
--- NOTE | 2016-08-10 16:27 | P.PN ---
Subjective Principal diagnosis: CHF This is a 76-year-old female with history of chronic persistent atrial fibrillation, GI bleeding, embolic phenomenon to her lower extremities, diabetes , hyperlipidemia, who was admitted to the hospital initially because of elevated INR. [facility]. Patient was also found to be in congestive cardiac failure and was initiated on IV Lasix. She was seen and examined today, overall she is diuresing well. Creatinine 1.0, INR 2.3, continues to be on IV Lasix. Objective - Vital Signs Vital signs: Vital Signs Temp 96.8 F L 08/10/16 08:00 Pulse 66 08/10/16 16:10 Resp 18 08/10/16 12:00 BP 125/77 08/10/16 11:22 Pulse Ox 96 08/10/16 16:00 Intake & Output 08/09/16 08/10/16 08/10/16 18:59 06:59 18:59 Intake Total 220 400 Output Total 900 800 Balance -680 -800 400 Weight 125.5 kg 125.5 kg Intake: Intake, IV Titration 200 Amount Albumin Human 25% 50 ml 50 In Empty Bag 1 bag @ 100 mls/hr IVPB ONCE ONE Rx#: [id number] Linezolid 600 mg In 150 Dextrose/Water 1 300ml. bag @ 150 mls/hr IVPB Q12HR [facility] Rx#:[id number] Oral 220 200 Output: Urine 900 800 Other: Voiding Method Indwelling Catheter Indwelling Catheter Indwelling Catheter - Exam PHYSICAL EXAMINATION: HEENT: Head is atraumatic, normocephalic. Pupils equal, round. Neck is supple. There is no elevated jugular venous pressure. HEART EXAMINATION: Heart S1 and S2 irregularly irregular a systolic murmur is heard. CHEST EXAMINATION: Lungs are clear to auscultation and precussion. No chest wall tenderness is noted on palpation or with deep breathing. ABDOMEN: Soft, obese, nontender. Bowel sounds are heard. No organomegaly noted. EXTREMITIES: 1+ peripheral pulses with trace evidence of peripheral edema and no calf tenderness noted. NEUROLOGIC patient is awake, alert and oriented -3. . - Labs CBC & Chem 7: 08/10/16 15:50 08/10/16 15:50 Labs: Abnormal Lab Results - Last 24 Hours (Table) 08/09/16 08/09/16 08/10/16 Range/Units 16:56 21:13 05:52 RBC (3.80-5.40) m/uL Hgb (11.4-16.0) gm/dL Hct (34.0-46.0) % RDW (11.5-15.5) % Plt Count (150-450) k/uL Neutrophils # (1.3-7.7) k/uL PT (9.0-12.0) sec Sodium (137-145) mmol/L BUN (7-17) mg/dL Glucose (74-99) mg/dL POC Glucose (mg/dL) 184 H 162 H 180 H (75-99) mg/dL Calcium (8.4-10.2) mg/dL ALT (9-52) U/L Total Protein (6.3-8.2) g/dL Albumin (3.5-5.0) g/dL 08/10/16 08/10/16 08/10/16 Range/Units 11:50 15:30 15:50 RBC 2.43 L (3.80-5.40) m/uL Hgb 7.1 L (11.4-16.0) gm/dL Hct 22.5 L (34.0-46.0) % RDW 18.0 H (11.5-15.5) % Plt Count 76 L D (150-450) k/uL Neutrophils # 8.2 H (1.3-7.7) k/uL PT 21.8 H (9.0-12.0) sec Sodium (137-145) mmol/L BUN (7-17) mg/dL Glucose (74-99) mg/dL POC Glucose (mg/dL) 170 H (75-99) mg/dL Calcium (8.4-10.2) mg/dL ALT (9-52) U/L Total Protein (6.3-8.2) g/dL Albumin (3.5-5.0) g/dL 08/10/16 Range/Units 15:50 RBC (3.80-5.40) m/uL Hgb (11.4-16.0) gm/dL Hct (34.0-46.0) % RDW (11.5-15.5) % Plt Count (150-450) k/uL Neutrophils # (1.3-7.7) k/uL PT (9.0-12.0) sec Sodium 131 L (137-145) mmol/L BUN 45 H (7-17) mg/dL Glucose 121 H (74-99) mg/dL POC Glucose (mg/dL) (75-99) mg/dL Calcium 7.5 L (8.4-10.2) mg/dL ALT 6 L (9-52) U/L Total Protein 4.5 L (6.3-8.2) g/dL Albumin 2.1 L (3.5-5.0) g/dL Microbiology - Last 24 Hours (Table) 08/06/16 13:45 Blood Culture - Preliminary Blood No Growth after 96 hours 08/09/16 05:34 Blood Culture - Preliminary Blood No Growth after 24 hours 08/09/16 06:06 Blood Culture - Preliminary Blood No Growth after 24 hours 08/06/16 13:33 Blood Culture Gram Stain - Final Blood Blood Culture - Final Enterococcus faecium VRE 08/09/16 14:05 Catheter Tip Culture - Preliminary Picc Line Assessment and Plan (1) Chronic a-fib Status: Acute (2) GI bleed Status: Acute (3) Morbid obesity Status: Acute (4) Embolic phenomenon secondary to atrial fibrillation Status: Acute (5) Elevated INR Status: Acute (6) Systolic CHF, acute on chronic Status: Acute Plan: From cardiology's perspective, we will recommend to continue current dose of IV Lasix. Continue to monitor intake and output along with daily weights and daily lytes BUN and creatinine. DNP note has been reviewed, I agree with a documented findings and plan of care. Patient was seen and examined.
[2016-08-10 16:54] LABS: Glucose,Whole Blood 124 mg/dL (75-99)
--- NOTE | 2016-08-10 17:11 | P.PN ---
Subjective Patient is a 76-year-old female with a known past medical history of chronic atrial fibrillation, CHF, diabetes mellitus type 2, anemia, COPD, left leg ischemia requiring thrombectomy. Patient was discharged from [facility] on 07/29/2016 at that time she was treated for MRSA pneumonia, UTI, COPD exacerbation and CHF exacerbation. Patient has been residing at [address] [place] [address]. She presents back to the hospital with an INR of 7.2. She had no active signs of bleeding. However hemoglobin was 6.9 and stool for occult blood was positive. She did receive 1 unit of blood hemoglobin is at 8.0. GI service was consulted. At this time there is no plan for colonoscopy due to patient's respiratory status as well as patient is hesitant to proceed with colonoscopy. She did not tolerate the prep the last time she tried to have a colonoscopy. She is short of breath. Chest x-ray shows evidence of congestive heart failure and patchy atelectasis. BNP is elevated at 6180. She's been placed on IV Lasix and cardiology has been consulted. EKG shows atrial fibrillation with a heart rate of 73. Patient denies any chest pain. She is still having a cough. She still maintained on IV vancomycin and Levaquin for her MRSA pneumonia and UTI. Patient denies any nausea or vomiting. Denies any blood in her stools or black stools. Admits to burning with urination. Patient on antibiotics for UTI Today patient is doing better she is still complaining of shortness of breath she had a bowel movement and there was no blood in her stools Hemoglobin is down to 7.2 INR is still subtherapeutic at 1.5 Objective - Vital Signs Vital signs: Vital Signs Temp 96.8 F L 08/10/16 08:00 Pulse 66 08/10/16 16:10 Resp 18 08/10/16 12:00 BP 125/77 08/10/16 11:22 Pulse Ox 96 08/10/16 16:00 Intake & Output 08/09/16 08/10/16 08/10/16 18:59 06:59 18:59 Intake Total 220 400 Output Total 900 800 Balance -680 -800 400 Weight 125.5 kg 125.5 kg Intake: Intake, IV Titration 200 Amount Albumin Human 25% 50 ml 50 In Empty Bag 1 bag @ 100 mls/hr IVPB ONCE ONE Rx#: [id number] Linezolid 600 mg In 150 Dextrose/Water 1 300ml. bag @ 150 mls/hr IVPB Q12HR [facility] Rx#:[id number] Oral 220 200 Output: Urine 900 800 Other: Voiding Method Indwelling Catheter Indwelling Catheter Indwelling Catheter - Exam Patient is alert and oriented 3 in no apparent distress HEENT head normocephalic and atraumatic NECK is supple, no JVD no goiter and no adenopathy CHEST exam with scattered crackes in both lung olivares, no wheezing ABD is nontender no organomegaly Extremity exam reveals no edema no cyanosis or clubbing - Labs CBC & Chem 7: 08/10/16 15:50 08/10/16 15:50 Labs: Abnormal Lab Results - Last 24 Hours (Table) 08/09/16 08/10/16 08/10/16 Range/Units 21:13 05:52 11:50 RBC (3.80-5.40) m/uL Hgb (11.4-16.0) gm/dL Hct (34.0-46.0) % RDW (11.5-15.5) % Plt Count (150-450) k/uL Neutrophils # (1.3-7.7) k/uL PT (9.0-12.0) sec Sodium (137-145) mmol/L BUN (7-17) mg/dL Glucose (74-99) mg/dL POC Glucose (mg/dL) 162 H 180 H 170 H (75-99) mg/dL Calcium (8.4-10.2) mg/dL ALT (9-52) U/L Total Protein (6.3-8.2) g/dL Albumin (3.5-5.0) g/dL 08/10/16 08/10/16 08/10/16 Range/Units 15:30 15:50 15:50 RBC 2.43 L (3.80-5.40) m/uL Hgb 7.1 L (11.4-16.0) gm/dL Hct 22.5 L (34.0-46.0) % RDW 18.0 H (11.5-15.5) % Plt Count 76 L D (150-450) k/uL Neutrophils # 8.2 H (1.3-7.7) k/uL PT 21.8 H (9.0-12.0) sec Sodium 131 L (137-145) mmol/L BUN 45 H (7-17) mg/dL Glucose 121 H (74-99) mg/dL POC Glucose (mg/dL) (75-99) mg/dL Calcium 7.5 L (8.4-10.2) mg/dL ALT 6 L (9-52) U/L Total Protein 4.5 L (6.3-8.2) g/dL Albumin 2.1 L (3.5-5.0) g/dL 08/10/16 Range/Units 16:51 RBC (3.80-5.40) m/uL Hgb (11.4-16.0) gm/dL Hct (34.0-46.0) % RDW (11.5-15.5) % Plt Count (150-450) k/uL Neutrophils # (1.3-7.7) k/uL PT (9.0-12.0) sec Sodium (137-145) mmol/L BUN (7-17) mg/dL Glucose (74-99) mg/dL POC Glucose (mg/dL) 124 H (75-99) mg/dL Calcium (8.4-10.2) mg/dL ALT (9-52) U/L Total Protein (6.3-8.2) g/dL Albumin (3.5-5.0) g/dL Microbiology - Last 24 Hours (Table) 08/06/16 13:45 Blood Culture - Preliminary Blood No Growth after 96 hours 08/09/16 05:34 Blood Culture - Preliminary Blood No Growth after 24 hours 08/09/16 06:06 Blood Culture - Preliminary Blood No Growth after 24 hours 08/06/16 13:33 Blood Culture Gram Stain - Final Blood Blood Culture - Final Enterococcus faecium VRE 08/09/16 14:05 Catheter Tip Culture - Preliminary Picc Line Assessment and Plan Plan: 1. Acute on chronic anemia. Stool for occult blood positive. EGD in February 2016 was negative. Patient was unable to tolerate colonoscopy in April secondary to Patient's during her hospitalization. GI service was consulted to evaluate patient for possible colonoscopy. At this time there is no scheduled for colonoscopy due to patient's respiratory status. Patient is hesitant to proceed with procedure. Iron deficiency anemia continue with her ferrous sulfate 2. Acute blood loss anemia with stool positive occult blood. Likely related to the coagulopathy. Patient will be given 1 unit of blood. Hemoglobin 7.1. Continue to monitor. Check CBC in a.m. 3. Acute on chronic systolic CHF exacerbation: Echo from April 2016 shows an EF of 40-45%. Patient had elevated BNP on admission and chest x-ray showing evidence of congestive heart failure with patchy atelectasis. We will start patient on IV Lasix 40 mg every 12 hours and consult cardiology 4. UTI: With recent urine culture growing Enterobacter Colace and Pseudomonas aeruginosa. Patient had been on Levaquin outpatient. Awaiting repeat urine culture. Continue with Levaquin 5. MRSA bacterial pneumonia has been maintained [facility] Vancomycin has been restarted. Continue to monitor 6. Chronic atrial fibrillation: Since patient is not proceeding with colonoscopy at this time. Will place patient on Lovenox 120 mg subcu every 12 hours to bridge until INR is therapeutic. Will give Coumadin 2 mg tonight. For an INR of 1.5 7. Coagulopathy on admission with an INR of 7.2. Patient did receive vitamin K. Monitor daily PT/INR's 8. Atelectasis noted on chest x-ray: Add incentive spirometer. also will resume patient's flutter valve 9. Essential hypertension: Elevated blood pressures. Resume blood pressure medications also she was started on IV Lasix. Continue to monitor 10. Ischemia of the left leg status post thrombectomy with Dr. García. Patient requiring anticoagulation 11. History of COPD. Appears stable. Only had 2 more days of prednisone taper. Patient is not wheezing. We'll add nebulizer treatments 4 times a day and as needed 12. Diabetes mellitus type 2: Patient had lower blood sugars on admission. Blood sugar this morning was only 80. We'll continue with sliding scale and monitor. At this time will decrease IV fluid to KVO Continue was Coumadin 1 mg today Recheck labs including INR in a.m. tomorrow Hemoglobin today is 7.1 Will give 1 unit of red blood cell transfusion
[2016-08-10] MEDS ORDERED: WARFARIN 1 MG TAB PO ONE (18:00)
[2016-08-10] MEDS ORDERED: LEVOFLOXACIN 750 MG TAB PO SCH (21:00)
[2016-08-10 21:18] LABS: Glucose,Whole Blood 97 mg/dL (75-99)
[2016-08-10] MEDS: MONTELUKAST 10 MG TAB PO SCH (21:44)
[2016-08-10] MEDS: POLYETHYLENE GLYCOL 3350 17 GM POWD.PACK PO SCH (21:45)
--- NOTE | 2016-08-10 22:22 | P.PN ---
Subjective Principal diagnosis: Weakness and shortness of breath 76-year-old female who has a history of extensive hospitalizations earlier this year. She is evidence of the extensive lung disease. 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 She has sleep apnea. During a recent hospital stay she had evidence of extensive illness including the large clot from the left leg that required endarterectomy with patch angioplasty. She has significant difficulties at that site. She had pneumonia and infection at the left leg site. MRSA pneumonia was noted. She was sent to rehab to receive her course of antibiotic therapy. Presents to Hospital feeling very poorly. On evidence of an elevated INR of 7.2. Hemoglobin was only 6.9. She was weak and short of breath. She is now had transfusion. In receiving antibiotic therapy. Infectious diseases consultation follow-up is being done because of VRE being isolated from her blood. Feeling slightly better today. Slightly less short of breath. Still coughing up some sputum. Receiving some blood for her anemia. IV access in place with evidence of clearance of her bacteremia. Objective - Vital Signs Vital signs: Vital Signs Temp 96.9 F L 08/10/16 19:19 Pulse 76 08/10/16 20:51 Resp 18 08/10/16 19:19 BP 127/56 08/10/16 19:19 Pulse Ox 95 08/10/16 19:19 Intake & Output 08/10/16 08/10/16 08/11/16 06:59 18:59 06:59 Intake Total 400 Output Total 800 Balance -800 400 Weight 125.5 kg 125.5 kg Intake: Intake, IV Titration 200 Amount Albumin Human 25% 50 ml 50 In Empty Bag 1 bag @ 100 mls/hr IVPB ONCE ONE Rx#: [id number] Linezolid 600 mg In 150 Dextrose/Water 1 300ml. bag @ 150 mls/hr IVPB Q12HR [facility] Rx#:[id number] Oral 200 Blood Product 0 Rc As-1 Unit 0 [id number] Output: Urine 800 Other: Voiding Method Indwelling Catheter Indwelling Catheter - Exam 76-year-old woman who relates she is feeling short of breath and has difficulty eating because she short of breath. HEENT: Anicteric conjunctiva are pink and moist nasal mucosa grossly intact without significant lesions, there is no thrush. Worn dentition Neck: The neck is supple without significant lymphadenopathy or thyromegaly. Lungs: Symmetrical air entry is noted. Wheezes throughout the lung olivares is noted, Bibasilar crackles are heard no dullness is noted no egophony is appreciated. Heart: Regular rate and rhythm with an audible S1-S2, no S3 soft S4, There is no significant murmur click or rub, PMI was nondisplaced. Abdomen: Obese, Positive bowel sounds soft and nontender without palpable masses or organomegaly. There was no guarding or rebound. Extremities: The upper and lower extremity is have some generalized edema. However no open ulcerations are seen. The entry site for the thrombectomy is without bleeding drainage or evidence of infection or tenderness Neuro: Awake alert oriented to person place and time. There are no acute new gross focal sensory motor deficits. She has significant generalized weakness though - Labs CBC & Chem 7: 08/10/16 15:50 08/10/16 15:50 Labs: Abnormal Lab Results - Last 24 Hours (Table) 08/08/16 08/10/16 08/10/16 Range/Units 00:35 05:52 11:50 RBC (3.80-5.40) m/uL Hgb (11.4-16.0) gm/dL Hct (34.0-46.0) % RDW (11.5-15.5) % Plt Count (150-450) k/uL Neutrophils # (1.3-7.7) k/uL PT (9.0-12.0) sec Sodium (137-145) mmol/L BUN (7-17) mg/dL Glucose (74-99) mg/dL POC Glucose (mg/dL) 180 H 170 H (75-99) mg/dL Calcium (8.4-10.2) mg/dL ALT (9-52) U/L Total Protein (6.3-8.2) g/dL Albumin (3.5-5.0) g/dL Crossmatch See Detail 08/10/16 08/10/16 08/10/16 Range/Units 15:30 15:50 15:50 RBC 2.43 L (3.80-5.40) m/uL Hgb 7.1 L (11.4-16.0) gm/dL Hct 22.5 L (34.0-46.0) % RDW 18.0 H (11.5-15.5) % Plt Count 76 L D (150-450) k/uL Neutrophils # 8.2 H (1.3-7.7) k/uL PT 21.8 H (9.0-12.0) sec Sodium 131 L (137-145) mmol/L BUN 45 H (7-17) mg/dL Glucose 121 H (74-99) mg/dL POC Glucose (mg/dL) (75-99) mg/dL Calcium 7.5 L (8.4-10.2) mg/dL ALT 6 L (9-52) U/L Total Protein 4.5 L (6.3-8.2) g/dL Albumin 2.1 L (3.5-5.0) g/dL Crossmatch 08/10/16 Range/Units 16:51 RBC (3.80-5.40) m/uL Hgb (11.4-16.0) gm/dL Hct (34.0-46.0) % RDW (11.5-15.5) % Plt Count (150-450) k/uL Neutrophils # (1.3-7.7) k/uL PT (9.0-12.0) sec Sodium (137-145) mmol/L BUN (7-17) mg/dL Glucose (74-99) mg/dL POC Glucose (mg/dL) 124 H (75-99) mg/dL Calcium (8.4-10.2) mg/dL ALT (9-52) U/L Total Protein (6.3-8.2) g/dL Albumin (3.5-5.0) g/dL Crossmatch Microbiology - Last 24 Hours (Table) 08/06/16 13:45 Blood Culture - Preliminary Blood No Growth after 96 hours 08/09/16 05:34 Blood Culture - Preliminary Blood No Growth after 24 hours 08/09/16 06:06 Blood Culture - Preliminary Blood No Growth after 24 hours 08/06/16 13:33 Blood Culture Gram Stain - Final Blood Blood Culture - Final Enterococcus faecium VRE 08/09/16 14:05 Catheter Tip Culture - Preliminary Picc Line Laboratory Results WBC 9.9 k/uL (3.8-10.6) 08/10/16 15:50 RBC 2.43 m/uL (3.80-5.40) L 08/10/16 15:50 Hgb 7.1 gm/dL (11.4-16.0) L 08/10/16 15:50 Hct 22.5 % (34.0-46.0) L 08/10/16 15:50 MCV 92.5 fL (80.0-100.0) 08/10/16 15:50 MCH 29.3 pg (25.0-35.0) 08/10/16 15:50 MCHC 31.7 g/dL (31.0-37.0) 08/10/16 15:50 RDW 18.0 % (11.5-15.5) H 08/10/16 15:50 Plt Count 76 k/uL (150-450) L D 08/10/16 15:50 Neutrophils % 83 % 08/10/16 15:50 Lymphocytes % 10 % 08/10/16 15:50 Monocytes % 5 % 08/10/16 15:50 Eosinophils % 1 % 08/10/16 15:50 Basophils % 0 % 08/10/16 15:50 Neutrophils # 8.2 k/uL (1.3-7.7) H 08/10/16 15:50 Lymphocytes # 1.0 k/uL (1.0-4.8) 08/10/16 15:50 Monocytes # 0.5 k/uL (0-1.0) 08/10/16 15:50 Eosinophils # 0.1 k/uL (0-0.7) 08/10/16 15:50 Basophils # 0.0 k/uL (0-0.2) 08/10/16 15:50 Hypochromasia Slight 08/10/16 15:50 Poikilocytosis Slight 08/10/16 15:50 Anisocytosis Slight 08/10/16 15:50 Macrocytosis Slight 08/04/16 17:10 PT 21.8 sec (9.0-12.0) H 08/10/16 15:30 INR 2.3 (<1.1) 08/10/16 15:30 APTT 55.9 sec (22.0-30.0) H 08/04/16 17:10 Sodium 131 mmol/L (137-145) L 08/10/16 15:50 Potassium 4.6 mmol/L (3.5-5.1) 08/10/16 15:50 Chloride 101 mmol/L (98-107) 08/10/16 15:50 Carbon Dioxide 22 mmol/L (22-30) 08/10/16 15:50 Anion Gap 8 mmol/L 08/10/16 15:50 BUN 45 mg/dL (7-17) H 08/10/16 15:50 Creatinine 1.01 mg/dL (0.52-1.04) 08/10/16 15:50 Est GFR (MDRD) Af Amer >60 (>60 ml/min/1.73 sqM) 08/10/16 15:50 Est GFR (MDRD) Non-Af 53 (>60 ml/min/1.73 sqM) 08/10/16 15:50 Glucose 121 mg/dL (74-99) H 08/10/16 15:50 POC Glucose (mg/dL) 97 mg/dL (75-99) 08/10/16 21:08 POC Glu [employer] RAJESH [email or web address] 08/10/16 21:[address] Glu mg/dL 137 mg/dL 08/05/16 05:40 Hemoglobin A1c 6.4 % (4.2-6.1) H 08/05/16 05:40 Plasma Lactic Acid Good 1.4 mmol/L (0.7-2.0) 08/08/16 02:47 Calcium 7.5 mg/dL (8.4-10.2) L 08/10/16 15:50 Magnesium 2.1 mg/dL (1.6-2.3) 08/04/16 17:10 Total Bilirubin 0.5 mg/dL (0.2-1.3) 08/10/16 15:50 AST 31 U/L (14-36) 08/10/16 15:50 ALT 6 U/L (9-52) L 08/10/16 15:50 Alkaline Phosphatase 53 U/L (38-126) 08/10/16 15:50 Total Creatine Kinase <20 U/L (30-135) L 08/04/16 17:10 CK-MB (CK-2) 0.8 ng/mL (0.0-2.4) 08/04/16 17:10 CK-MB (CK-2) Rel Index 0.0 06/14/17 17:10 Troponin I 0.033 ng/mL (0.000-0.034) 08/05/16 05:40 NT-Pro-B Natriuret Pep 6180 pg/mL 08/04/16 17:10 Total Protein 4.5 g/dL (6.3-8.2) L 08/10/16 15:50 Albumin 2.1 g/dL (3.5-5.0) L 08/10/16 15:50 Urine Color Yellow 08/04/16 17:25 Urine Appearance Cloudy (Clear) H 08/04/16 17:25 Urine pH 5.0 (5.0-8.0) 08/04/16 17:25 Ur Specific [place] 1.013 (1.001-1.035) 08/04/16 17:25 Urine Protein 1+ (Negative) H 08/04/16 17:25 Urine Glucose (UA) Negative (Negative) 08/04/16 17:25 Urine Ketones Negative (Negative) 08/04/16 17:25 Urine Blood Moderate (Negative) H 08/04/16 17:25 Urine Nitrite Negative (Negative) 08/04/16 17:25 Urine Bilirubin Negative (Negative) 08/04/16 17:25 Urine Urobilinogen <2.0 mg/dL (<2.0) 08/04/16 17:25 Ur Leukocyte Esterase Trace (Negative) H 08/04/16 17:25 Urine RBC 42 /hpf (0-5) H 08/04/16 17:25 Urine WBC 6 /hpf (0-5) H 08/04/16 17:25 Ur Squamous Epith Cells 1 /hpf (0-4) 08/04/16 17:25 Amorphous Sediment Rare /hpf (None) H 08/04/16 17:25 Urine Bacteria Many /hpf (None) H 08/04/16 17:25 Urine Mucus Rare /hpf (None) H 08/04/16 17:25 Stool Occult Blood Positive (Negative) H 08/04/16 18:47 Vancomycin Trough 21.4 ug/mL 08/06/16 11:42 Random Vancomycin 23.9 ug/mL 08/04/16 17:10 Digoxin 1.4 ng/mL 08/08/16 02:47 Blood Type A Positive 08/08/16 00:35 Blood Type Recheck No 06/18/17 00:35 Antibody Screen NEGATIVE 08/08/16 00:35 Crossmatch See Detail 08/08/16 00:35 Spec Expiration Date 08/11/2016 - 233408/08/16 00:35 Microbiology 08/06/16 13:45 Blood Blood Culture - Preliminary No Growth after 96 hours 08/09/16 05:34 Blood Blood Culture - Preliminary No Growth after 24 hours 08/09/16 06:06 Blood Blood Culture - Preliminary No Growth after 24 hours 08/06/16 13:33 Blood Blood Culture Gram Stain - Final 08/06/16 13:33 Blood Blood Culture - Final Enterococcus faecium VRE 08/09/16 14:05 Picc Line Catheter Tip Culture - Preliminary 08/04/16 17:25 Urine,Catheterized Urine Culture - Final Gabriela glabrata 08/04/16 17:10 Abdomen Gram Stain - Final 08/04/16 17:10 Abdomen Wound Culture - Final Pseudomonas aeruginosa Enterococcus faecium VRE 08/04/16 17:10 Blood Blood Culture Gram Stain - Final 08/04/16 17:10 Blood Blood Culture - Final Enterococcus faecium VRE 08/06/16 13:33 Blood Blood Culture - Final 08/04/16 17:10 Blood Blood Culture - Final Assessment and Plan (1) Warfarin-induced coagulopathy Status: Acute (2) Vancomycin resistant Enterococcal septicemia Narrative/Plan: 76-year-old female who has extensive COPD with multiple complications that include chronic atrial fibrillation, chronic anemia, a intestinal bleeding , diabetes and a recent MRSA pneumonia. Presents from the extended care facility with marked increased weakness shortness of breath and fatigue. Was found evidence of a gastrointestinal bleed, Coumadin coagulopathy and evidence of fever. There is no been evidence of vancomycin-resistant enterococci be nicely from her blood and several events. She is a PICC line in the left arm is noted. Concern is this is the source. Consequently when possible would like to have a new IV placed. Her PICC line removed. Since she's been treated with Zyvox that could be switched to oral and hopefully would not need long- term IV antibiotics at this time. Her coagulopathy is being treated. Ongoing attempts to improve her blood sugars. Her COPD is quite problematic given her significant anemia and worsening shortness of breath. Overall prognosis is very poor. Blood cultures from 08/06 1 of 2 are still positive. Likely will be the same VRE as before. Continue Zyvox Has cleared her bacteremia. Doing well with the Zyvox. The 08/09 cultures are all negative. IV access in place. She does feel somewhat better. Anemias been an issue and is now receiving a transfusion tolerating it well. Status: Acute
[2016-08-11] MEDS ORDERED: FUROSEMIDE 10 MG/ML 4 ML VIAL IV STA ×2 (00:10→07:06)
[2016-08-11] MEDS: HYDROmorphone 1 MG/ML 1 ML SYRINGE IV PRN ×3 (00:27→13:06)
[2016-08-11] MEDS: LINEZOLID 600 MG in DEXTROSE/WATER 1 300ML.BAG IVPB SCH ×3 (00:53→21:34)
[2016-08-11 06:19] LABS: Glucose,Whole Blood 106 mg/dL (75-99)
[2016-08-11] MEDS: INSULIN LISPRO (humaLOG) 300 UNIT/3 ML VIAL SQ SCH ×3 (06:21→17:12)
[2016-08-11] MEDS: FERROUS SULFATE 325 MG TAB PO SCH ×2 (06:23→17:12)
[2016-08-11] MEDS: Acetaminophen-Codeine 300-30mg TAB PO PRN (06:30)
[2016-08-11] MEDS: FUROSEMIDE 10 MG/ML 4 ML VIAL IV SCH ×2 (06:32→21:18)
[2016-08-11] MEDS: BUDESONIDE 1 MG/2 ML NEBU INHALATION SCH ×2 (07:42→19:59)
[2016-08-11] MEDS: IPRATROPIUM-ALBUTEROL 3 ML NEB INHALATION SCH ×4 (07:43→19:59)
[2016-08-11] MEDS ORDERED: ALBUMIN HUMAN 25% 50 ML in EMPTY BAG 1 BAG IVPB ONE (08:00)
[2016-08-11] MEDS: guaiFENesin 600 MG TABLET.ER PO SCH ×2 (08:01→21:19)
[2016-08-11] MEDS: DOCUSATE 100 MG CAP PO SCH ×2 (08:01→21:19)
[2016-08-11] MEDS: PANTOPRAZOLE 40 MG TABLET PO SCH (08:01)
[2016-08-11] MEDS: ALPRAZolam 0.25 MG TAB PO SCH ×2 (08:01→21:18)
[2016-08-11] MEDS: ALLOPURINOL 100 MG TAB PO SCH (08:01)
[2016-08-11] MEDS: DIGOXIN 125 MCG TAB PO SCH (08:01)
[2016-08-11] MEDS: METOPROLOL SUCCINATE (ER) 100 MG TAB.ER.24H PO SCH ×2 (08:01→21:19)
[2016-08-11] MEDS: SPIRONOLACTONE 25 MG TAB PO SCH (08:02)
[2016-08-11] MEDS: INSULIN DETEMIR 100 UNIT/ML 10 ML VIAL SQ SCH ×2 (08:03→21:18)
[2016-08-11 09:11] LABS: INR 3.9 (<1.1); Prothrombin Time 38.1 sec (9.0-12.0)
[2016-08-11 09:15] LABS: Anisocytosis Slight; Basophils % (A) 0 %; CH 30.3; CHCM 32.6; Eosinophils % (A) 0 %; HCT 25.5 % (34.0-46.0); HDW 3.78; HGB 8.2 gm/dL (11.4-16.0); Hypochromasia Slight; Luc # (Auto) 0.14; Luc % (Auto) 1; Lymphocytes # (A) 0.7 k/uL (1.0-4.8); Lymphocytes % (A) 6 %; MCHC 32.1 g/dL (31.0-37.0); MCV 93.6 fL (80.0-100.0); Mean Platelet Volume 8.3; Monocytes # (A) 0.5 k/uL (0-1.0); Monocytes % (A) 5 %; Neutrophils # (A) 9.9 k/uL (1.3-7.7); Neutrophils % (A) 88 %; Poikilocytosis Slight; RBC 2.73 m/uL (3.80-5.40); RDW 17.5 % (11.5-15.5); WBC 11.2 k/uL (3.8-10.6); WBC (Perox) 11.12
[2016-08-11 09:44] LABS: Calcium 7.6 mg/dL (8.4-10.2); Total Bilirubin 0.5 mg/dL (0.2-1.3)
[2016-08-11 11:37] LABS: Calcium 7.6 mg/dL (8.4-10.2); Potassium 4.5 mmol/L (3.5-5.1); Total Bilirubin 0.5 mg/dL (0.2-1.3); Total Protein 4.8 g/dL (6.3-8.2)
[2016-08-11 11:43] LABS: Glucose,Whole Blood 223 mg/dL (75-99)
--- NOTE | 2016-08-11 12:48 | P.PN ---
Subjective Principal diagnosis: CHF This is a 76-year-old female with history of chronic persistent atrial fibrillation, GI bleeding, embolic phenomenon to her lower extremities, diabetes , hyperlipidemia, who was admitted to the hospital initially because of elevated INR. [facility] Patient was also found to be in congestive cardiac failure and was initiated on IV Lasix. She was seen and examined today, overall she is diuresing well. Weight is down 2 kg today. Creatinine 1.1, INR 3.9, continues to be on IV Lasix. Patient did have an episode earlier of brief shortness of breath. Overall the patient states she's feeling better today. Edema continues to improve. Objective - Vital Signs Vital signs: Vital Signs Temp 97 F L 08/11/16 11:50 Pulse 69 08/11/16 11:50 Resp 16 08/11/16 11:50 BP 141/65 08/11/16 11:50 Pulse Ox 92 L 08/11/16 11:50 Intake & Output 08/10/16 08/11/16 08/11/16 18:59 06:59 18:59 Intake Total 400 964 360 Output Total 600 Balance 400 364 360 Weight 125.5 kg 123.5 kg Intake: IV 344 0.9 40 Lasix 4 Linezolid 600 mg In 300 Dextrose/Water 1 300ml. bag @ 150 mls/hr IVPB Q12HR [facility] Rx#:[id number] Intake, IV Titration 200 Amount Albumin Human 25% 50 ml 50 In Empty Bag 1 bag @ 100 mls/hr IVPB ONCE ONE Rx#: [id number] Linezolid 600 mg In 150 Dextrose/Water 1 300ml. bag @ 150 mls/hr IVPB Q12HR [facility] Rx#:[id number] Oral 200 360 Blood Product 0 620 Rc As-1 Unit 0 310 [id number] Output: Urine 600 Other: Voiding Method Indwelling Catheter Indwelling Catheter Indwelling Catheter # Bowel Movements 1 - Exam PHYSICAL EXAMINATION: HEENT: Head is atraumatic, normocephalic. Pupils equal, round. Neck is supple. There is no elevated jugular venous pressure. HEART EXAMINATION: Heart S1 and S2 irregularly irregular a systolic murmur is heard. CHEST EXAMINATION: Lungs are clear to auscultation and precussion. No chest wall tenderness is noted on palpation or with deep breathing. ABDOMEN: Soft, obese, nontender. Bowel sounds are heard. No organomegaly noted. EXTREMITIES: 1+ peripheral pulses with trace evidence of peripheral edema and no calf tenderness noted. NEUROLOGIC patient is awake, alert and oriented -3. . - Labs CBC & Chem 7: 08/11/16 08:51 08/11/16 10:45 Labs: Abnormal Lab Results - Last 24 Hours (Table) 08/08/16 08/10/16 08/10/16 Range/Units 00:35 15:30 15:50 WBC (3.8-10.6) k/uL RBC 2.43 L (3.80-5.40) m/uL Hgb 7.1 L (11.4-16.0) gm/dL Hct 22.5 L (34.0-46.0) % RDW 18.0 H (11.5-15.5) % Plt Count 76 L D (150-450) k/uL Neutrophils # 8.2 H (1.3-7.7) k/uL Lymphocytes # (1.0-4.8) k/uL PT 21.8 H (9.0-12.0) sec Sodium (137-145) mmol/L BUN (7-17) mg/dL Creatinine (0.52-1.04) mg/dL Glucose (74-99) mg/dL POC Glucose (mg/dL) (75-99) mg/dL Calcium (8.4-10.2) mg/dL ALT (9-52) U/L Total Protein (6.3-8.2) g/dL Albumin (3.5-5.0) g/dL Crossmatch See Detail 08/10/16 08/10/16 08/11/16 Range/Units 15:50 16:51 06:17 WBC (3.8-10.6) k/uL RBC (3.80-5.40) m/uL Hgb (11.4-16.0) gm/dL Hct (34.0-46.0) % RDW (11.5-15.5) % Plt Count (150-450) k/uL Neutrophils # (1.3-7.7) k/uL Lymphocytes # (1.0-4.8) k/uL PT (9.0-12.0) sec Sodium 131 L (137-145) mmol/L BUN 45 H (7-17) mg/dL Creatinine (0.52-1.04) mg/dL Glucose 121 H (74-99) mg/dL POC Glucose (mg/dL) 124 H 106 H (75-99) mg/dL Calcium 7.5 L (8.4-10.2) mg/dL ALT 6 L (9-52) U/L Total Protein 4.5 L (6.3-8.2) g/dL Albumin 2.1 L (3.5-5.0) g/dL Crossmatch 08/11/16 08/11/16 08/11/16 Range/Units 08:51 08:51 08:51 WBC 11.2 H (3.8-10.6) k/uL RBC 2.73 L (3.80-5.40) m/uL Hgb 8.2 L (11.4-16.0) gm/dL Hct 25.5 L (34.0-46.0) % RDW 17.5 H (11.5-15.5) % Plt Count (150-450) k/uL Neutrophils # 9.9 H (1.3-7.7) k/uL Lymphocytes # 0.7 L (1.0-4.8) k/uL PT 38.1 H (9.0-12.0) sec Sodium (137-145) mmol/L BUN 41 H (7-17) mg/dL Creatinine 1.14 H (0.52-1.04) mg/dL Glucose (74-99) mg/dL POC Glucose (mg/dL) (75-99) mg/dL Calcium 7.6 L (8.4-10.2) mg/dL ALT (9-52) U/L Total Protein (6.3-8.2) g/dL Albumin (3.5-5.0) g/dL Crossmatch 08/11/16 08/11/16 Range/Units 10:45 11:40 WBC (3.8-10.6) k/uL RBC (3.80-5.40) m/uL Hgb (11.4-16.0) gm/dL Hct (34.0-46.0) % RDW (11.5-15.5) % Plt Count (150-450) k/uL Neutrophils # (1.3-7.7) k/uL Lymphocytes # (1.0-4.8) k/uL PT (9.0-12.0) sec Sodium 132 L (137-145) mmol/L BUN 43 H (7-17) mg/dL Creatinine 1.13 H (0.52-1.04) mg/dL Glucose 184 H (74-99) mg/dL POC Glucose (mg/dL) 223 H (75-99) mg/dL Calcium 7.6 L (8.4-10.2) mg/dL ALT (9-52) U/L Total Protein 4.8 L (6.3-8.2) g/dL Albumin 2.3 L (3.5-5.0) g/dL Crossmatch Microbiology - Last 24 Hours (Table) 08/09/16 05:34 Blood Culture - Preliminary Blood No Growth after 48 hours 08/09/16 06:06 Blood Culture - Preliminary Blood No Growth after 48 hours 08/06/16 13:45 Blood Culture - Preliminary Blood No Growth after 96 hours Assessment and Plan (1) Chronic a-fib Status: Acute (2) GI bleed Status: Acute (3) Morbid obesity Status: Acute (4) Embolic phenomenon secondary to atrial fibrillation Status: Acute (5) Elevated INR Status: Acute (6) Systolic CHF, acute on chronic Status: Acute Plan: From cardiology's perspective, we will recommend to continue current dose of IV Lasix. We will also repeat chest x-ray today. Continue to monitor intake and output along with daily weights and daily lytes BUN and creatinine. DNP note has been reviewed, I agree with a documented findings and plan of care. Patient was seen and examined.
--- NOTE | 2016-08-11 15:27 | XR ---
EXAMINATION TYPE: XR chest 1V DATE OF EXAM: 08/11/2016 COMPARISON: Prior chest x-ray 08/05/2016 HISTORY: Shortness of breath TECHNIQUE: Single frontal view of the chest is obtained. FINDINGS: Patient is rotated. The heart is enlarged. No evident pneumothorax. Patchy basilar density is present. There are overlying cardiac leads. Central vascularity and interstitium are somewhat pro minent. IMPRESSION: Correlate to exclude pulmonary venous hypertension and interstitial edema. There may be left lower lobe atelectasis versus pneumonia or edema and associated effusion. Follow-up to [facility]
[2016-08-11 16:45] LABS: Glucose,Whole Blood 220 mg/dL (75-99)
--- NOTE | 2016-08-11 18:12 | P.PN ---
Subjective Patient is a 76-year-old female with a known past medical history of chronic atrial fibrillation, CHF, diabetes mellitus type 2, anemia, COPD, left leg ischemia requiring thrombectomy. Patient was discharged from [facility] on 07/29/2016 at that time she was treated for MRSA pneumonia, UTI, COPD exacerbation and CHF exacerbation. Patient has been residing at [address] [place] [address]. She presents back to the hospital with an INR of 7.2. She had no active signs of bleeding. However hemoglobin was 6.9 and stool for occult blood was positive. She did receive 1 unit of blood hemoglobin is at 8.0. GI service was consulted. At this time there is no plan for colonoscopy due to patient's respiratory status as well as patient is hesitant to proceed with colonoscopy. She did not tolerate the prep the last time she tried to have a colonoscopy. She is short of breath. Chest x-ray shows evidence of congestive heart failure and patchy atelectasis. BNP is elevated at 6180. She's been placed on IV Lasix and cardiology has been consulted. EKG shows atrial fibrillation with a heart rate of 73. Patient denies any chest pain. She is still having a cough. She still maintained on IV vancomycin and Levaquin for her MRSA pneumonia and UTI. Patient denies any nausea or vomiting. Denies any blood in her stools or black stools. Admits to burning with urination. Patient on antibiotics for UTI Today patient is doing better she is still complaining of shortness of breath she had a bowel movement and there was no blood in her stools Hemoglobin is down to 7.2 INR is still subtherapeutic at 1.5 Objective - Vital Signs Vital signs: Vital Signs Temp 97.1 F L 08/11/16 16:00 Pulse 57 L 08/11/16 16:00 Resp 18 08/11/16 16:00 BP 129/58 08/11/16 16:00 Pulse Ox 99 08/11/16 16:00 Intake & Output 08/10/16 08/11/16 08/11/16 18:59 06:59 18:59 Intake Total 400 964 718 Output Total 600 800 Balance 400 364 -82 Weight 125.5 kg 123.5 kg Intake: IV 344 0.9 40 Lasix 4 Linezolid 600 mg In 300 Dextrose/Water 1 300ml. bag @ 150 mls/hr IVPB Q12HR [facility] Rx#:[id number] Intake, IV Titration 200 Amount Albumin Human 25% 50 ml 50 In Empty Bag 1 bag @ 100 mls/hr IVPB ONCE ONE Rx#: [id number] Linezolid 600 mg In 150 Dextrose/Water 1 300ml. bag @ 150 mls/hr IVPB Q12HR [facility] Rx#:[id number] Oral 200 718 Blood Product 0 620 Rc As-1 Unit 0 310 [id number] Output: Urine 600 800 Other: Voiding Method Indwelling Catheter Indwelling Catheter Indwelling Catheter # Bowel Movements 1 - Exam Patient is alert and oriented 3 in no apparent distress HEENT head normocephalic and atraumatic NECK is supple, no JVD no goiter and no adenopathy CHEST exam with scattered crackes in both lung olivares, no wheezing ABD is nontender no organomegaly Extremity exam reveals no edema no cyanosis or clubbing - Labs CBC & Chem 7: 08/11/16 08:51 08/11/16 10:45 Labs: Abnormal Lab Results - Last 24 Hours (Table) 08/08/16 08/11/16 08/11/16 Range/Units 00:35 06: 08:51 WBC 11.2 H (3.8-10.6) k/uL RBC 2.73 L (3.80-5.40) m/uL Hgb 8.2 L (11.4-16.0) gm/dL Hct 25.5 L (34.0-46.0) % RDW 17.5 H (11.5-15.5) % Neutrophils # 9.9 H (1.3-7.7) k/uL Lymphocytes # 0.7 L (1.0-4.8) k/uL PT (9.0-12.0) sec Sodium (137-145) mmol/L BUN (7-17) mg/dL Creatinine (0.52-1.04) mg/dL Glucose (74-99) mg/dL POC Glucose (mg/dL) 106 H (75-99) mg/dL Calcium (8.4-10.2) mg/dL Total Protein (6.3-8.2) g/dL Albumin (3.5-5.0) g/dL Crossmatch See Detail 08/11/16 08/11/16 08/11/16 Range/Units 08:51 08:51 10:45 WBC (3.8-10.6) k/uL RBC (3.80-5.40) m/uL Hgb (11.4-16.0) gm/dL Hct (34.0-46.0) % RDW (11.5-15.5) % Neutrophils # (1.3-7.7) k/uL Lymphocytes # (1.0-4.8) k/uL PT 38.1 H (9.0-12.0) sec Sodium 132 L (137-145) mmol/L BUN 41 H 43 H (7-17) mg/dL Creatinine 1.14 H 1.13 H (0.52-1.04) mg/dL Glucose 184 H (74-99) mg/dL POC Glucose (mg/dL) (75-99) mg/dL Calcium 7.6 L 7.6 L (8.4-10.2) mg/dL Total Protein 4.8 L (6.3-8.2) g/dL Albumin 2.3 L (3.5-5.0) g/dL Crossmatch 08/11/16 08/11/16 Range/Units 11:40 16:33 WBC (3.8-10.6) k/uL RBC (3.80-5.40) m/uL Hgb (11.4-16.0) gm/dL Hct (34.0-46.0) % RDW (11.5-15.5) % Neutrophils # (1.3-7.7) k/uL Lymphocytes # (1.0-4.8) k/uL PT (9.0-12.0) sec Sodium (137-145) mmol/L BUN (7-17) mg/dL Creatinine (0.52-1.04) mg/dL Glucose (74-99) mg/dL POC Glucose (mg/dL) 223 H 220 H (75-99) mg/dL Calcium (8.4-10.2) mg/dL Total Protein (6.3-8.2) g/dL Albumin (3.5-5.0) g/dL Crossmatch Microbiology - Last 24 Hours (Table) 08/06/16 13:45 Blood Culture - Preliminary Blood No Growth after 120 hours 08/09/16 14:05 Catheter Tip Culture - Final Picc Line Coagulase Negative Staph 08/09/16 05:34 Blood Culture - Preliminary Blood No Growth after 48 hours 08/09/16 06:06 Blood Culture - Preliminary Blood No Growth after 48 hours Assessment and Plan Plan: 1. Acute on chronic anemia. Stool for occult blood positive. EGD in February 2016 was negative. Patient was unable to tolerate colonoscopy in April secondary to Patient's during her hospitalization. GI service was consulted to evaluate patient for possible colonoscopy. At this time there is no scheduled for colonoscopy due to patient's respiratory status. Patient is hesitant to proceed with procedure. Iron deficiency anemia continue with her ferrous sulfate 2. Acute blood loss anemia with stool positive occult blood. Likely related to the coagulopathy. Patient will be given 1 unit of blood. Hemoglobin 7.1. Continue to monitor. Check CBC in a.m. 3. Acute on chronic systolic CHF exacerbation: Echo from April 2016 shows an EF of 40-45%. Patient had elevated BNP on admission and chest x-ray showing evidence of congestive heart failure with patchy atelectasis. We will start patient on IV Lasix 40 mg every 12 hours and consult cardiology 4. UTI: With recent urine culture growing Enterobacter Colace and Pseudomonas aeruginosa. Patient had been on Levaquin outpatient. Awaiting repeat urine culture. Continue with Levaquin 5. MRSA bacterial pneumonia has been maintained on IV vancomycin via [facility] line at the [facility]. Vancomycin has been restarted. Continue to monitor 6. Chronic atrial fibrillation: Since patient is not proceeding with colonoscopy at this time. Will place patient on Lovenox 120 mg subcu every 12 hours to bridge until INR is therapeutic. Will give Coumadin 2 mg tonight. For an INR of 1.5 7. Coagulopathy on admission with an INR of 7.2. Patient did receive vitamin K. Monitor daily PT/INR's 8. Atelectasis noted on chest x-ray: Add incentive spirometer. also will resume patient's flutter valve 9. Essential hypertension: Elevated blood pressures. Resume blood pressure medications also she was started on IV Lasix. Continue to monitor 10. Ischemia of the left leg status post thrombectomy with Dr. García. Patient requiring anticoagulation 11. History of COPD. Appears stable. Only had 2 more days of prednisone taper. Patient is not wheezing. We'll add nebulizer treatments 4 times a day and as needed 12. Diabetes mellitus type 2: Patient had lower blood sugars on admission. Blood sugar this morning was only 80. We'll continue with sliding scale and monitor. At this time will decrease IV fluid to KVO No Coumadin today due to elevated INR Recheck labs including INR in a.m. tomorrow Will monitor hemoglobin closely Case was discussed with patient and her 2 sons at bedside today for a prolonged meeting
--- NOTE | 2016-08-11 20:16 | P.PN ---
Subjective Principal diagnosis: Weakness and shortness of breath 76-year-old female who has a history of extensive hospitalizations earlier this year. She is evidence of the extensive lung disease. 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 She has sleep apnea. During a recent hospital stay she had evidence of extensive illness including the large clot from the left leg that required endarterectomy with patch angioplasty. She has significant difficulties at that site. She had pneumonia and infection at the left leg site. MRSA pneumonia was noted. She was sent to rehab to receive her course of antibiotic therapy. Presents to Hospital feeling very poorly. On evidence of an elevated INR of 7.2. Hemoglobin was only 6.9. She was weak and short of breath. She is now had transfusion. In receiving antibiotic therapy. Infectious diseases consultation follow-up is being done because of VRE being isolated from her blood. Feeling slightly better today. Slightly less short of breath. Still coughing up some sputum. Receiving some blood for her anemia. Peripheral IV access in place with evidence of clearance of her bacteremia. Very difficult morning was very short of breath. Had difficult with hypoxia. Continues to have a very wet sounding respiration. Is less distress this evening. Patient's daughter is present. She is a hospice nurse. Clarifies the family story that the father when he had liver cancer was placed in hospice but improved well for several months and was placed back in hospice only for 1 day before he . Daughter is aware that mother is not doing well and with all she's been through could be a very good hospice candidate Objective - Vital Signs Vital signs: Vital Signs Temp 97.1 F L 08/11/16 16:00 Pulse 70 08/11/16 20:00 Resp 18 08/11/16 16:00 BP 129/58 08/11/16 16:00 Pulse Ox 99 08/11/16 16:00 Intake & Output 08/11/16 08/11/16 08/12/16 06:59 18:59 06:59 Intake Total 964 718 Output Total 600 800 Balance 364 -82 Weight 123.5 kg Intake: IV 344 0.9 40 Lasix 4 Linezolid 600 mg In 300 Dextrose/Water 1 300ml. bag @ 150 mls/hr IVPB Q12HR [facility] Rx#:[id number] Oral 718 Blood Product 620 Rc As-1 Unit 310 [id number] Output: Urine 600 800 Other: Voiding Method Indwelling Catheter Indwelling Catheter # Bowel Movements 1 - Exam 76-year-old woman who relates she is feeling short of breath and has difficulty eating because she short of breath. HEENT: Anicteric conjunctiva are pink and moist nasal mucosa grossly intact without significant lesions, there is no thrush. Worn dentition Neck: The neck is supple without significant lymphadenopathy or thyromegaly. Lungs: Symmetrical air entry is noted. Anaprox there is a wet respiratory sound. She has coarse crackles in the lung olivares. Basilar dullness is noted. no egophony is appreciated. Heart: Regular rate and rhythm with an audible S1-S2, no S3 soft S4, There is no significant murmur click or rub, PMI was nondisplaced. Abdomen: Obese, Positive bowel sounds soft and nontender without palpable masses or organomegaly. There was no guarding or rebound. Extremities: The upper and lower extremity is have some generalized edema. However no open ulcerations are seen. The entry site for the thrombectomy is without bleeding drainage or evidence of infection or tenderness Neuro: Awake alert oriented to person place and time. There are no acute new gross focal sensory motor deficits. She has significant generalized weakness though - Labs CBC & Chem 7: 08/11/16 08:51 08/11/16 10:45 Labs: Abnormal Lab Results - Last 24 Hours (Table) 08/08/16 08/11/16 08/11/16 Range/Units 00:35 : 08:51 WBC 11.2 H (3.8-10.6) k/uL RBC 2.73 L (3.80-5.40) m/uL Hgb 8.2 L (11.4-16.0) gm/dL Hct 25.5 L (34.0-46.0) % RDW 17.5 H (11.5-15.5) % Neutrophils # 9.9 H (1.3-7.7) k/uL Lymphocytes # 0.7 L (1.0-4.8) k/uL PT (9.0-12.0) sec Sodium (137-145) mmol/L BUN (7-17) mg/dL Creatinine (0.52-1.04) mg/dL Glucose (74-99) mg/dL POC Glucose (mg/dL) 106 H (75-99) mg/dL Calcium (8.4-10.2) mg/dL Total Protein (6.3-8.2) g/dL Albumin (3.5-5.0) g/dL Crossmatch See Detail 08/11/16 08/11/16 08/11/16 Range/Units 08:51 08:51 10:45 WBC (3.8-10.6) k/uL RBC (3.80-5.40) m/uL Hgb (11.4-16.0) gm/dL Hct (34.0-46.0) % RDW (11.5-15.5) % Neutrophils # (1.3-7.7) k/uL Lymphocytes # (1.0-4.8) k/uL PT 38.1 H (9.0-12.0) sec Sodium 132 L (137-145) mmol/L BUN 41 H 43 H (7-17) mg/dL Creatinine 1.14 H 1.13 H (0.52-1.04) mg/dL Glucose 184 H (74-99) mg/dL POC Glucose (mg/dL) (75-99) mg/dL Calcium 7.6 L 7.6 L (8.4-10.2) mg/dL Total Protein 4.8 L (6.3-8.2) g/dL Albumin 2.3 L (3.5-5.0) g/dL Crossmatch 08/11/16 08/11/16 Range/Units 11:40 16:33 WBC (3.8-10.6) k/uL RBC (3.80-5.40) m/uL Hgb (11.4-16.0) gm/dL Hct (34.0-46.0) % RDW (11.5-15.5) % Neutrophils # (1.3-7.7) k/uL Lymphocytes # (1.0-4.8) k/uL PT (9.0-12.0) sec Sodium (137-145) mmol/L BUN (7-17) mg/dL Creatinine (0.52-1.04) mg/dL Glucose (74-99) mg/dL POC Glucose (mg/dL) 223 H 220 H (75-99) mg/dL Calcium (8.4-10.2) mg/dL Total Protein (6.3-8.2) g/dL Albumin (3.5-5.0) g/dL Crossmatch Microbiology - Last 24 Hours (Table) 08/06/16 13:45 Blood Culture - Preliminary Blood No Growth after 120 hours 08/09/16 14:05 Catheter Tip Culture - Final Picc Line Coagulase Negative Staph 08/09/16 05:34 Blood Culture - Preliminary Blood No Growth after 48 hours 08/09/16 06:06 Blood Culture - Preliminary Blood No Growth after 48 hours Laboratory Results WBC 11.2 k/uL (3.8-10.6) H 08/11/16 08:51 RBC 2.73 m/uL (3.80-5.40) L 08/11/16 08:51 Hgb 8.2 gm/dL (11.4-16.0) L 08/11/16 08:51 Hct 25.5 % (34.0-46.0) L 08/11/16 08:51 MCV 93.6 fL (80.0-100.0) 08/11/16 08:51 MCH 30.0 pg (25.0-35.0) 08/11/16 08:51 MCHC 32.1 g/dL (31.0-37.0) 08/11/16 08:51 RDW 17.5 % (11.5-15.5) H 08/11/16 08:51 Plt Count 166 k/uL (150-450) D 08/11/16 08:51 Neutrophils % 88 % 08/11/16 08:51 Lymphocytes % 6 % 08/11/16 08:51 Monocytes % 5 % 08/11/16 08:51 Eosinophils % 0 % 08/11/16 08:51 Basophils % 0 % 08/11/16 08:51 Neutrophils # 9.9 k/uL (1.3-7.7) H 08/11/16 08:51 Lymphocytes # 0.7 k/uL (1.0-4.8) L 08/11/16 08:51 Monocytes # 0.5 k/uL (0-1.0) 08/11/16 08:51 Eosinophils # 0.0 k/uL (0-0.7) 08/11/16 08:51 Basophils # 0.0 k/uL (0-0.2) 08/11/16 08:51 Hypochromasia Slight 08/11/16 08:51 Poikilocytosis Slight 08/11/16 08:51 Anisocytosis Slight 08/11/16 08:51 Macrocytosis Slight 08/04/16 17:10 PT 38.1 sec (9.0-12.0) H 08/11/16 08:51 INR 3.9 (<1.1) 08/11/16 08:51 APTT 55.9 sec (22.0-30.0) H 08/04/16 17:10 Sodium 132 mmol/L (137-145) L 08/11/16 10:45 Potassium 4.5 mmol/L (3.5-5.1) 08/11/16 10:45 Chloride 99 mmol/L (98-107) 08/11/16 10:45 Carbon Dioxide 23 mmol/L (22-30) 08/11/16 10:45 Anion Gap 10 mmol/L 08/11/16 10:45 BUN 43 mg/dL (7-17) H 08/11/16 10:45 Creatinine 1.13 mg/dL (0.52-1.04) H 08/11/16 10:45 Est GFR (MDRD) Af Amer 56 (>60 ml/min/1.73 sqM) 08/11/16 10:45 Est GFR (MDRD) Non-Af 47 (>60 ml/min/1.73 sqM) 08/11/16 10:45 Glucose 184 mg/dL (74-99) H 08/11/16 10:45 POC Glucose (mg/dL) 220 mg/dL (75-99) H 08/11/16 16:33 POC Glu [employer] Technician Shelley Ambriz 08/11/16 16:[address] Glu mg/dL 137 mg/dL 08/05/16 05:40 Hemoglobin A1c 6.4 % (4.2-6.1) H 08/05/16 05:40 Plasma Lactic Acid Good 1.4 mmol/L (0.7-2.0) 08/08/16 02:47 Calcium 7.6 mg/dL (8.4-10.2) L 08/11/16 10:45 Magnesium 2.1 mg/dL (1.6-2.3) 08/04/16 17:10 Total Bilirubin 0.5 mg/dL (0.2-1.3) 08/11/16 10:45 AST 17 U/L (14-36) 08/11/16 10:45 ALT 21 U/L (9-52) 08/11/16 10:45 Alkaline Phosphatase 51 U/L (38-126) 08/11/16 10:45 Total Creatine Kinase <20 U/L (30-135) L 08/04/16 17:10 CK-MB (CK-2) 0.8 ng/mL (0.0-2.4) 08/04/16 17:10 CK-MB (CK-2) Rel Index 0.0 08/04/16 17:10 Troponin I 0.033 ng/mL (0.000-0.034) 08/05/16 05:40 NT-Pro-B Natriuret Pep 6180 pg/mL 08/04/16 17:10 Total Protein 4.8 g/dL (6.3-8.2) L 08/11/16 10:45 Albumin 2.3 g/dL (3.5-5.0) L 08/11/16 10:45 Urine Color Yellow 08/04/16 17:25 Urine Appearance Cloudy (Clear) H 08/04/16 17:25 Urine pH 5.0 (5.0-8.0) 08/04/16 17:25 Ur Specific [place] 1.013 (1.001-1.035) 08/04/16 17:25 Urine Protein 1+ (Negative) H 08/04/16 17:25 Urine Glucose (UA) Negative (Negative) 08/04/16 17:25 Urine Ketones Negative (Negative) 08/04/16 17:25 Urine Blood Moderate (Negative) H 08/04/16 17:25 Urine Nitrite Negative (Negative) 08/04/16 17:25 Urine Bilirubin Negative (Negative) 08/04/16 17:25 Urine Urobilinogen <2.0 mg/dL (<2.0) 08/04/16 17:25 Ur Leukocyte Esterase Trace (Negative) H 08/04/16 17:25 Urine RBC 42 /hpf (0-5) H 08/04/16 17:25 Urine WBC 6 /hpf (0-5) H 08/04/16 17:25 Ur Squamous Epith Cells 1 /hpf (0-4) 08/04/16 17:25 Amorphous Sediment Rare /hpf (None) H 08/04/16 17:25 Urine Bacteria Many /hpf (None) H 08/04/16 17:25 Urine Mucus Rare /hpf (None) H 08/04/16 17:25 Stool Occult Blood Positive (Negative) H 08/04/16 18:47 Vancomycin Trough 21.4 ug/mL 08/06/16 11:42 Random Vancomycin 23.9 ug/mL 08/04/16 17:10 Digoxin 1.4 ng/mL 08/08/16 02:47 Blood Type A Positive 08/08/16 00:35 Blood Type Recheck No 08/08/16 00:35 Antibody Screen NEGATIVE 08/08/16 00:35 Crossmatch See Detail 08/08/16 00:35 Spec Expiration Date 08/11/2016 - 56908/08/16 00:35 Microbiology 08/06/16 13:45 Blood Blood Culture - Preliminary No Growth after 120 hours 08/09/16 14:05 Picc Line Catheter Tip Culture - Final Coagulase Negative Staph 08/09/16 05:34 Blood Blood Culture - Preliminary No Growth after 48 hours 08/09/16 06:06 Blood Blood Culture - Preliminary No Growth after 48 hours 08/06/16 13:33 Blood Blood Culture Gram Stain - Final 08/06/16 13:33 Blood Blood Culture - Final Enterococcus faecium VRE 08/04/16 17:25 Urine,Catheterized Urine Culture - Final Gabriela glabrata 08/04/16 17:10 Abdomen Gram Stain - Final 08/04/16 17:10 Abdomen Wound Culture - Final Pseudomonas aeruginosa Enterococcus faecium VRE 08/04/16 17:10 Blood Blood Culture Gram Stain - Final 08/04/16 17:10 Blood Blood Culture - Final Enterococcus faecium VRE 08/06/16 13:33 Blood Blood Culture - Final 08/04/16 17:10 Blood Blood Culture - Final Assessment and Plan (1) Warfarin-induced coagulopathy Status: Acute (2) Vancomycin resistant Enterococcal septicemia Narrative/Plan: 76-year-old female who has extensive COPD with multiple complications that include chronic atrial fibrillation, chronic anemia, a intestinal bleeding , diabetes and a recent MRSA pneumonia. Presents from the extended care facility with marked increased weakness shortness of breath and fatigue. Was found evidence of a gastrointestinal bleed, Coumadin coagulopathy and evidence of fever. There is no been evidence of vancomycin-resistant enterococci be nicely from her blood and several events. She is a PICC line in the left arm is noted. Concern is this is the source. Consequently when possible would like to have a new IV placed. Her PICC line removed. Since she's been treated with Zyvox that could be switched to oral and hopefully would not need long- term IV antibiotics at this time. Her coagulopathy is being treated. Ongoing attempts to improve her blood sugars. Her COPD is quite problematic given her significant anemia and worsening shortness of breath. Overall prognosis is very poor. Blood cultures from 08/06 1 of 2 are still positive. Likely will be the same VRE as before. Continue Zyvox Has cleared her bacteremia. Doing well with the Zyvox. The 08/09 cultures are all negative. IV access in place. She does feel somewhat better. Anemias been an issue and is now receiving a transfusion tolerating it well. Continues to have evidence of some gastrointestinal bleeding. Contemplation for endoscopy. Patient's pulmonary status is so poor at this point in time she would not tolerate endoscopy. Status: Acute
[2016-08-11 20:40] LABS: Glucose,Whole Blood 200 mg/dL (75-99)
[2016-08-11] MEDS: POLYETHYLENE GLYCOL 3350 17 GM POWD.PACK PO SCH (21:19)
[2016-08-11] MEDS: MONTELUKAST 10 MG TAB PO SCH (21:19)
[2016-08-12] MEDS: HYDROmorphone 1 MG/ML 1 ML SYRINGE IV PRN ×3 (04:47→22:26)
[2016-08-12 06:05] LABS: Glucose,Whole Blood 291 mg/dL (75-99)
[2016-08-12] MEDS: FERROUS SULFATE 325 MG TAB PO SCH ×2 (06:52→17:32)
[2016-08-12] MEDS: INSULIN LISPRO (humaLOG) 300 UNIT/3 ML VIAL SQ SCH ×3 (06:52→17:32)
[2016-08-12] MEDS: Acetaminophen-Codeine 300-30mg TAB PO PRN ×2 (06:59→18:57)
[2016-08-12 07:48] LABS: Calcium 7.6 mg/dL (8.4-10.2); Potassium 4.5 mmol/L (3.5-5.1); Total Bilirubin 0.4 mg/dL (0.2-1.3); Total Protein 4.7 g/dL (6.3-8.2)
[2016-08-12 08:08] LABS: INR 4.6 (<1.1)
[2016-08-12] MEDS: BUDESONIDE 1 MG/2 ML NEBU INHALATION SCH ×2 (08:09→20:49)
[2016-08-12] MEDS: IPRATROPIUM-ALBUTEROL 3 ML NEB INHALATION SCH ×4 (08:09→20:50)
[2016-08-12] MEDS: LINEZOLID 600 MG in DEXTROSE/WATER 1 300ML.BAG IVPB SCH ×2 (08:56→21:31)
[2016-08-12] MEDS: ALLOPURINOL 100 MG TAB PO SCH (09:00)
[2016-08-12] MEDS: guaiFENesin 600 MG TABLET.ER PO SCH ×2 (09:00→21:07)
[2016-08-12] MEDS: PANTOPRAZOLE 40 MG TABLET PO SCH (09:01)
[2016-08-12] MEDS: DOCUSATE 100 MG CAP PO SCH ×2 (09:01→21:07)
[2016-08-12] MEDS: INSULIN DETEMIR 100 UNIT/ML 10 ML VIAL SQ SCH ×2 (09:05→21:08)
[2016-08-12 09:18] LABS: Anisocytosis Slight; Basophils % (A) 0 %; CH 29.4; CHCM 31.9; Eosinophils % (A) 0 %; HCT 24.5 % (34.0-46.0); HDW 3.66; HGB 8.2 gm/dL (11.4-16.0); Hypochromasia Slight; Luc # (Auto) 0.12; Luc % (Auto) 1; Lymphocytes # (A) 0.7 k/uL (1.0-4.8); Lymphocytes % (A) 7 %; MCHC 33.3 g/dL (31.0-37.0); MCV 93.2 fL (80.0-100.0); Mean Platelet Volume 8.9; Monocytes # (A) 0.4 k/uL (0-1.0); Monocytes % (A) 4 %; Neutrophils # (A) 8.9 k/uL (1.3-7.7); Neutrophils % (A) 88 %; Poikilocytosis Slight; RBC 2.63 m/uL (3.80-5.40); RDW 17.9 % (11.5-15.5); WBC 10.1 k/uL (3.8-10.6); WBC (Perox) 10.45
[2016-08-12] MEDS: ALPRAZolam 0.25 MG TAB PO SCH ×2 (10:26→21:06)
[2016-08-12] MEDS: FUROSEMIDE 10 MG/ML 4 ML VIAL IV SCH ×2 (10:26→21:22)
[2016-08-12] MEDS: SPIRONOLACTONE 25 MG TAB PO SCH (10:26)
[2016-08-12 12:27] LABS: Glucose,Whole Blood 279 mg/dL (75-99)
[2016-08-12] MEDS ORDERED: PHYTONADIONE ORAL 5 MG/5 ML ORAL.SYRG PO STA (13:05)
--- NOTE | 2016-08-12 13:05 | P.PN ---
Subjective This is a 76-year-old female with a known past medical history of chronic atrial fibrillation, CHF, diabetes mellitus type 2, anemia, COPD, left leg ischemia requiring thrombectomy. Patient was discharged from [facility] on 07/29/2016 at that time she was treated for MRSA pneumonia, UTI, COPD exacerbation and CHF exacerbation. Patient has been residing at [facility]. She presents back to the hospital with an INR of 7.2. She had no active signs of bleeding. However hemoglobin was 6.9 and stool for occult blood was positive. She did receive 1 unit of blood hemoglobin is at 8.0. Patient is complaining of discomfort and swelling on the right arm IV site. Peripheral IV will be removed. Patient needs to be scheduled for PICC line placement. Patient is still having blood sugars in the 200s. Her insulin will be adjusted. Patient denies any chest pain or shortness of breath. Doesn't still having some cough. Denies any nausea or vomiting. Still complaining of some pain in that left leg. That does improve with pain medication. Denies any blood in her stools Objective - Vital Signs Vital signs: Vital Signs Temp 97.4 F L 08/12/16 11:18 Pulse 64 08/12/16 11:28 Resp 16 08/12/16 11:18 BP 103/47 08/12/16 11:18 Pulse Ox 98 08/12/16 11:18 Intake & Output 08/11/16 08/12/16 08/12/16 18:59 06:59 18:59 Intake Total 718 325 Output Total 800 400 Balance -82 -75 Weight 119.5 kg Intake: IV 325 0.9 25 Linezolid 600 mg In 300 Dextrose/Water 1 300ml. bag @ 150 mls/hr IVPB Q12HR [facility] Rx#:[id number] Oral 718 Output: Urine 800 400 Other: Voiding Method Indwelling Catheter Indwelling Catheter Indwelling Catheter - Exam Head normocephalic Neck supple Lungs coarse breath sounds bilaterally Heart regular rate and rhythm S1-S2, no rub or gallop Abdomen is soft nontender nondistended positive bowel sounds no hepatosplenomegaly Extremities edema present in arms and legs Neuro alert and orientated to 3 - Labs CBC & Chem 7: 08/12/16 06:39 08/12/16 06:39 Labs: Abnormal Lab Results - Last 24 Hours (Table) 08/11/16 08/11/16 08/12/16 Range/Units 16:33 20:38 06:04 RBC (3.80-5.40) m/uL Hgb (11.4-16.0) gm/dL Hct (34.0-46.0) % RDW (11.5-15.5) % Neutrophils # (1.3-7.7) k/uL Lymphocytes # (1.0-4.8) k/uL PT (9.0-12.0) sec Sodium (137-145) mmol/L BUN (7-17) mg/dL Creatinine (0.52-1.04) mg/dL Glucose (74-99) mg/dL POC Glucose (mg/dL) 220 H 200 H 291 H (75-99) mg/dL Calcium (8.4-10.2) mg/dL Total Protein (6.3-8.2) g/dL Albumin (3.5-5.0) g/dL 08/12/16 08/12/16 08/12/16 Range/Units 06:39 06:39 06:39 RBC 2.63 L (3.80-5.40) m/uL Hgb 8.2 L (11.4-16.0) gm/dL Hct 24.5 L (34.0-46.0) % RDW 17.9 H (11.5-15.5) % Neutrophils # 8.9 H (1.3-7.7) k/uL Lymphocytes # 0.7 L (1.0-4.8) k/uL PT 46.0 H (9.0-12.0) sec Sodium 130 L (137-145) mmol/L BUN 46 H (7-17) mg/dL Creatinine 1.11 H (0.52-1.04) mg/dL Glucose 229 H (74-99) mg/dL POC Glucose (mg/dL) (75-99) mg/dL Calcium 7.6 L (8.4-10.2) mg/dL Total Protein 4.7 L (6.3-8.2) g/dL Albumin 2.2 L (3.5-5.0) g/dL 08/12/16 Range/Units 11:51 RBC (3.80-5.40) m/uL Hgb (11.4-16.0) gm/dL Hct (34.0-46.0) % RDW (11.5-15.5) % Neutrophils # (1.3-7.7) k/uL Lymphocytes # (1.0-4.8) k/uL PT (9.0-12.0) sec Sodium (137-145) mmol/L BUN (7-17) mg/dL Creatinine (0.52-1.04) mg/dL Glucose (74-99) mg/dL POC Glucose (mg/dL) 279 H (75-99) mg/dL Calcium (8.4-10.2) mg/dL Total Protein (6.3-8.2) g/dL Albumin (3.5-5.0) g/dL Microbiology - Last 24 Hours (Table) 08/09/16 05:34 Blood Culture - Preliminary Blood No Growth after 72 hours 08/09/16 06:06 Blood Culture - Preliminary Blood No Growth after 72 hours 08/06/16 13:45 Blood Culture - Preliminary Blood No Growth after 120 hours 08/09/16 14:05 Catheter Tip Culture - Final Picc Line Coagulase Negative Staph Assessment and Plan Plan: 1. Acute on chronic anemia. Stool for occult blood positive. EGD in February 2016 was negative. Patient was unable to tolerate colonoscopy in April secondary to Patient's during her hospitalization. GI service was consulted to evaluate patient for possible colonoscopy. At this time there is no scheduled for colonoscopy due to patient's respiratory status. Patient is hesitant to proceed with procedure. Iron deficiency anemia continue with her ferrous sulfate. 2. Acute blood loss anemia with stool positive occult blood. Likely related to the coagulopathy. Patient did require blood transfusions. Hemoglobin 8.2 3. Acute on chronic systolic CHF exacerbation: Echo from April 2016 shows an EF of 40-45%. Patient had elevated BNP on admission and chest x-ray showing evidence of congestive heart failure with patchy atelectasis. Continue IV Lasix. Cardiology following. 4. UTI: With recent urine culture growing Enterobacter Colace and Pseudomonas aeruginosa. Patient had been on Levaquin outpatient. Repeat urine culture growing Gabriela glabrata. Per infectious disease does not require an antifungal treatment. Patient is asymptomatic. Infectious diseases discontinued the Levaquin 5. MRSA bacterial pneumonia completed vancomycin treatment 6. Chronic atrial fibrillation: Since patient is not proceeding with colonoscopy at this time. INR elevated at 4.6 7. Coagulopathy on admission with an INR of 7.2. Patient did receive vitamin K. Monitor daily PT/INR's 8. Atelectasis noted on chest x-ray: Add incentive spirometer. also will resume patient's flutter valve 9. Essential hypertension: Elevated blood pressures. Resume blood pressure medications also she was started on IV Lasix. Continue to monitor 10. Ischemia of the left leg status post thrombectomy with Dr. García. Patient requiring anticoagulation 11. History of COPD. Appears stable. Only had 2 more days of prednisone taper. Patient is not wheezing. We'll add nebulizer treatments 4 times a day and as needed 12. Diabetes mellitus type 2: Blood sugars are still elevated. Increase the Levemir to 32 units in the morning and continue 10 units at bedtime 13. Bacteremia: Blood cultures growing VRE. Infectious disease following. PICC line removed. PICC line culture tip growing quite is negative staph. Repeat blood cultures since PICC line removed have been negative. Patient currently on Zyvox. Infectious disease following 14. Severe protein calorie malnutrition start Glucerna shakes 15. Consult physical therapy 16. Bradycardia with cardiac pauses. Cardiology following and will await their further recommendations in regarding medication adjustments 17. Patient has no IV access and difficult IV start. Interventional radiology will be consulted for PICC line placement. However, she has coagulopathy problems with an INR 4.6. She'll receive vitamin K 2.5 mg by mouth 1 check PT/ INR in a.m. GI prophylaxis Protonix and DVT prophylaxis on Coumadin which is currently on hold due to elevated INR I performed an examination of the patient and discussed their management with the physician [employer]. I have reviewed the Physician [employer]'s notes and agree with the documented findings and plan of care
[2016-08-12] MEDS: METOPROLOL SUCCINATE (ER) 100 MG TAB.ER.24H PO SCH ×2 (14:27→21:08)
[2016-08-12] MEDS: DIGOXIN 125 MCG TAB PO SCH (14:27)
--- NOTE | 2016-08-12 15:50 | P.PN ---
Subjective Principal diagnosis: CHF This is a 76-year-old female with history of chronic persistent atrial fibrillation, GI bleeding, embolic phenomenon to her lower extremities, diabetes , hyperlipidemia, who was admitted to the hospital initially because of elevated INR. She resides at a long term. Patient was also found to be in congestive cardiac failure and was initiated on IV Lasix. She was seen and examined today, overall she is diuresing well. Weight is down 4 kg today. Creatinine 1.1, INR 4.6, continues to be on IV Lasix. was noted to have several episodes of pauses today up to 3.5 seconds. We will discontinue the Lanoxin and continue the beta mel. Coumadin continues to be on hold for an INR 4.6 Objective - Vital Signs Vital signs: Vital Signs Temp 97.4 F L 08/12/16 11:18 Pulse 64 08/12/16 11:28 Resp 16 08/12/16 11:18 BP 103/47 08/12/16 11:18 Pulse Ox 98 08/12/16 11:18 Intake & Output 08/11/16 08/12/16 08/12/16 18:59 06:59 18:59 Intake Total 718 325 Output Total 800 400 Balance -82 -75 Weight 119.5 kg Intake: IV 325 0.9 25 Linezolid 600 mg In 300 Dextrose/Water 1 300ml. bag @ 150 mls/hr IVPB Q12HR [facility] Rx#:[id number] Oral 718 Output: Urine 800 400 Other: Voiding Method Indwelling Catheter Indwelling Catheter Indwelling Catheter - Exam PHYSICAL EXAMINATION: HEENT: Head is atraumatic, normocephalic. Pupils equal, round. Neck is supple. There is no elevated jugular venous pressure. HEART EXAMINATION: Heart S1 and S2 irregularly irregular a systolic murmur is heard. CHEST EXAMINATION: Lungs are clear to auscultation and precussion. No chest wall tenderness is noted on palpation or with deep breathing. ABDOMEN: Soft, obese, nontender. Bowel sounds are heard. No organomegaly noted. EXTREMITIES: 1+ peripheral pulses with trace evidence of peripheral edema and no calf tenderness noted. NEUROLOGIC patient is awake, alert and oriented -3. . - Labs CBC & Chem 7: 08/12/16 06:39 08/12/16 06:39 Labs: Abnormal Lab Results - Last 24 Hours (Table) 08/11/16 08/11/16 08/12/16 Range/Units 16:33 20:38 06:04 RBC (3.80-5.40) m/uL Hgb (11.4-16.0) gm/dL Hct (34.0-46.0) % RDW (11.5-15.5) % Neutrophils # (1.3-7.7) k/uL Lymphocytes # (1.0-4.8) k/uL PT (9.0-12.0) sec Sodium (137-145) mmol/L BUN (7-17) mg/dL Creatinine (0.52-1.04) mg/dL Glucose (74-99) mg/dL POC Glucose (mg/dL) 220 H 200 H 291 H (75-99) mg/dL Calcium (8.4-10.2) mg/dL Total Protein (6.3-8.2) g/dL Albumin (3.5-5.0) g/dL 08/12/16 08/12/16 08/12/16 Range/Units 06:39 06:39 06:39 RBC 2.63 L (3.80-5.40) m/uL Hgb 8.2 L (11.4-16.0) gm/dL Hct 24.5 L (34.0-46.0) % RDW 17.9 H (11.5-15.5) % Neutrophils # 8.9 H (1.3-7.7) k/uL Lymphocytes # 0.7 L (1.0-4.8) k/uL PT 46.0 H (9.0-12.0) sec Sodium 130 L (137-145) mmol/L BUN 46 H (7-17) mg/dL Creatinine 1.11 H (0.52-1.04) mg/dL Glucose 229 H (74-99) mg/dL POC Glucose (mg/dL) (75-99) mg/dL Calcium 7.6 L (8.4-10.2) mg/dL Total Protein 4.7 L (6.3-8.2) g/dL Albumin 2.2 L (3.5-5.0) g/dL 08/12/16 Range/Units 11:51 RBC (3.80-5.40) m/uL Hgb (11.4-16.0) gm/dL Hct (34.0-46.0) % RDW (11.5-15.5) % Neutrophils # (1.3-7.7) k/uL Lymphocytes # (1.0-4.8) k/uL PT (9.0-12.0) sec Sodium (137-145) mmol/L BUN (7-17) mg/dL Creatinine (0.52-1.04) mg/dL Glucose (74-99) mg/dL POC Glucose (mg/dL) 279 H (75-99) mg/dL Calcium (8.4-10.2) mg/dL Total Protein (6.3-8.2) g/dL Albumin (3.5-5.0) g/dL Microbiology - Last 24 Hours (Table) 08/06/16 13:45 Blood Culture - Final Blood No Growth after 144 hours 08/09/16 05:34 Blood Culture - Preliminary Blood No Growth after 72 hours 08/09/16 06:06 Blood Culture - Preliminary Blood No Growth after 72 hours 08/09/16 14:05 Catheter Tip Culture - Final Picc Line Coagulase Negative Staph Assessment and Plan (1) Chronic a-fib Status: Acute (2) GI bleed Status: Acute (3) Morbid obesity Status: Acute (4) Embolic phenomenon secondary to atrial fibrillation Status: Acute (5) Elevated INR Status: Acute (6) Systolic CHF, acute on chronic Status: Acute Plan: From cardiology's perspective, we will recommend to continue current dose of IV Lasix. We are again at discontinue Lanoxin. Continue beta mel. Continue to hold Coumadin. DNP note has been reviewed, I agree with a documented findings and plan of care. Patient was seen and examined.
[2016-08-12 16:56] LABS: Glucose,Whole Blood 229 mg/dL (75-99)
[2016-08-12 21:08] LABS: Glucose,Whole Blood 242 mg/dL (75-99)
[2016-08-12] MEDS: MONTELUKAST 10 MG TAB PO SCH (21:08)
[2016-08-12] MEDS: POLYETHYLENE GLYCOL 3350 17 GM POWD.PACK PO SCH (21:08)
[2016-08-13 05:55] LABS: Glucose,Whole Blood 226 mg/dL (75-99)
[2016-08-13] MEDS: INSULIN LISPRO (humaLOG) 300 UNIT/3 ML VIAL SQ SCH ×4 (07:03→21:40)
[2016-08-13] MEDS: BUDESONIDE 1 MG/2 ML NEBU INHALATION SCH ×2 (07:04→19:45)
[2016-08-13] MEDS: IPRATROPIUM-ALBUTEROL 3 ML NEB INHALATION SCH ×4 (07:04→19:46)
[2016-08-13] MEDS: FERROUS SULFATE 325 MG TAB PO SCH ×2 (07:04→17:34)
[2016-08-13 07:05] LABS: Anisocytosis Slight; Basophils % (A) 0 %; CH 29.3; CHCM 30.8; Eosinophils % (A) 0 %; HGB 8.3 gm/dL (11.4-16.0); Hypochromasia Moderate; Luc # (Auto) 0.11; Luc % (Auto) 1; Lymphocytes # (A) 0.5 k/uL (1.0-4.8); Lymphocytes % (A) 6 %; MCH 30.6 pg (25.0-35.0); MCHC 31.9 g/dL (31.0-37.0); MCV 95.8 fL (80.0-100.0); Macrocytosis Slight; Mean Platelet Volume 7.7; Monocytes # (A) 0.4 k/uL (0-1.0); Monocytes % (A) 4 %; Neutrophils % (A) 88 %; Poikilocytosis Slight; RBC 2.71 m/uL (3.80-5.40); RDW 17.5 % (11.5-15.5); WBC 9.1 k/uL (3.8-10.6)
[2016-08-13 07:25] LABS: INR 2.9 (<1.1); Prothrombin Time 28.3 sec (9.0-12.0)
[2016-08-13 07:31] LABS: Calcium 7.7 mg/dL (8.4-10.2); Potassium 4.3 mmol/L (3.5-5.1); Total Bilirubin 0.2 mg/dL (0.2-1.3); Total Protein 4.6 g/dL (6.3-8.2)
[2016-08-13] MEDS ORDERED: INSULIN DETEMIR 100 UNIT/ML 10 ML VIAL SQ SCH (09:00)
[2016-08-13] MEDS: PANTOPRAZOLE 40 MG TABLET PO SCH (09:04)
[2016-08-13] MEDS: guaiFENesin 600 MG TABLET.ER PO SCH ×2 (09:05→21:39)
[2016-08-13] MEDS: ALLOPURINOL 100 MG TAB PO SCH (09:05)
[2016-08-13] MEDS: DOCUSATE 100 MG CAP PO SCH ×2 (09:05→21:38)
[2016-08-13] MEDS: FUROSEMIDE 10 MG/ML 4 ML VIAL IV SCH (09:05)
[2016-08-13] MEDS: METOPROLOL SUCCINATE (ER) 100 MG TAB.ER.24H PO SCH ×2 (09:05→21:39)
[2016-08-13] MEDS: SPIRONOLACTONE 25 MG TAB PO SCH (09:05)
[2016-08-13] MEDS: ALPRAZolam 0.25 MG TAB PO SCH ×2 (09:09→21:39)
[2016-08-13] MEDS: LINEZOLID 600 MG in DEXTROSE/WATER 1 300ML.BAG IVPB SCH ×2 (09:09→21:40)
[2016-08-13] MEDS: HYDROmorphone 1 MG/ML 1 ML SYRINGE IV PRN (09:25)
[2016-08-13 12:25] LABS: Glucose,Whole Blood 254 mg/dL (75-99)
[2016-08-13] MEDS ORDERED: ALBUMIN HUMAN 25% 50 ML in EMPTY BAG 1 BAG IVPB ONE (13:09)
--- NOTE | 2016-08-13 13:14 | P.PN ---
Subjective This is a 76-year-old female with a known past medical history of chronic atrial fibrillation, CHF, diabetes mellitus type 2, anemia, COPD, left leg ischemia requiring thrombectomy. Patient was discharged from [facility] on 07/29/2016 at that time she was treated for MRSA pneumonia, UTI, COPD exacerbation and CHF exacerbation. Patient has been residing at [facility]. She presents back to the hospital with an INR of 7.2. She had no active signs of bleeding. However hemoglobin was 6.9 and stool for occult blood was positive. She did receive 1 unit of blood hemoglobin is at 8.0. Peripheral IV removed yesterday from the right arm. IV restarted on the left hand. Interventional radiology initially consulted for PICC line placement. But since they're able to restart and peripheral IV. PICC line consult will be canceled. She received vitamin K. INR is 2.9. Patient still has cough. Still has pain in the left leg which does improve with pain medication. Remains on the IV Lasix and which cardiology is following. Her bradycardia with cardiac pulses resided after digoxin was discontinued by cardiology. Patient denies any chest pain or shortness of breath. Denies any nausea or vomiting. Reports having normal bowel movements. Denies difficulty urinating. Objective - Vital Signs Vital signs: Vital Signs Temp 97.8 F 08/13/16 08:00 Pulse 68 08/13/16 08:00 Resp 22 08/13/16 08:00 BP 118/75 08/13/16 08:00 Pulse Ox 95 08/13/16 08:00 Intake & Output 08/12/16 08/13/16 08/13/16 18:59 06:59 18:59 Intake Total 100 30 360 Output Total 825 Balance 100 -795 360 Weight 121.5 kg 121.5 kg Intake: IV 30 0.9 30 Oral 100 360 Output: Urine 825 Other: Voiding Method Indwelling Catheter Indwelling Catheter Indwelling Catheter - Exam Head normocephalic Neck supple Lungs coarse breath sounds upper airway Heart regular rate and rhythm S1-S2, no rub or gallop Abdomen is soft nontender nondistended positive bowel sounds no hepatosplenomegaly Extremities edema present in arms and legs Neuro alert and orientated to 3 - Labs CBC & Chem 7: 08/13/16 06:48 08/13/16 06:48 Labs: Abnormal Lab Results - Last 24 Hours (Table) 08/12/16 08/12/16 08/12/16 Range/Units 11:51 16:43 20:52 RBC (3.80-5.40) m/uL Hgb (11.4-16.0) gm/dL Hct (34.0-46.0) % RDW (11.5-15.5) % Neutrophils # (1.3-7.7) k/uL Lymphocytes # (1.0-4.8) k/uL PT (9.0-12.0) sec Sodium (137-145) mmol/L BUN (7-17) mg/dL Creatinine (0.52-1.04) mg/dL Glucose (74-99) mg/dL POC Glucose (mg/dL) 279 H 229 H 242 H (75-99) mg/dL Calcium (8.4-10.2) mg/dL AST (14-36) U/L Total Protein (6.3-8.2) g/dL Albumin (3.5-5.0) g/dL 08/13/16 08/13/16 08/13/16 Range/Units 05:53 06:48 06:48 RBC 2.71 L (3.80-5.40) m/uL Hgb 8.3 L (11.4-16.0) gm/dL Hct 26.0 L (34.0-46.0) % RDW 17.5 H (11.5-15.5) % Neutrophils # 8.0 H (1.3-7.7) k/uL Lymphocytes # 0.5 L (1.0-4.8) k/uL PT 28.3 H (9.0-12.0) sec Sodium (137-145) mmol/L BUN (7-17) mg/dL Creatinine (0.52-1.04) mg/dL Glucose (74-99) mg/dL POC Glucose (mg/dL) 226 H (75-99) mg/dL Calcium (8.4-10.2) mg/dL AST (14-36) U/L Total Protein (6.3-8.2) g/dL Albumin (3.5-5.0) g/dL 08/13/16 Range/Units 06:48 RBC (3.80-5.40) m/uL Hgb (11.4-16.0) gm/dL Hct (34.0-46.0) % RDW (11.5-15.5) % Neutrophils # (1.3-7.7) k/uL Lymphocytes # (1.0-4.8) k/uL PT (9.0-12.0) sec Sodium 129 L (137-145) mmol/L BUN 47 H (7-17) mg/dL Creatinine 1.20 H (0.52-1.04) mg/dL Glucose 210 H (74-99) mg/dL POC Glucose (mg/dL) (75-99) mg/dL Calcium 7.7 L (8.4-10.2) mg/dL AST 11 L (14-36) U/L Total Protein 4.6 L (6.3-8.2) g/dL Albumin 2.3 L (3.5-5.0) g/dL Microbiology - Last 24 Hours (Table) 08/09/16 05:34 Blood Culture - Preliminary Blood No Growth after 96 hours 08/09/16 06:06 Blood Culture - Preliminary Blood No Growth after 96 hours 08/06/16 13:45 Blood Culture - Final Blood No Growth after 144 hours Assessment and Plan Plan: 1. Acute on chronic anemia. Stool for occult blood positive. EGD in February 2016 was negative. Patient was unable to tolerate colonoscopy in April secondary to Patient's during her hospitalization. GI service was consulted to evaluate patient for possible colonoscopy. At this time there is no scheduled for colonoscopy due to patient's respiratory status. Patient is hesitant to proceed with procedure. Iron deficiency anemia continue with her ferrous sulfate. 2. Acute blood loss anemia with stool positive occult blood. Likely related to the coagulopathy. Patient did require blood transfusions. Hemoglobin 8.3 3. Acute on chronic systolic CHF exacerbation: Echo from April 2016 shows an EF of 40-45%. Patient had elevated BNP on admission and chest x-ray showing evidence of congestive heart failure with patchy atelectasis. Continue IV Lasix. Cardiology following. 4. UTI: With recent urine culture growing Enterobacter Colace and Pseudomonas aeruginosa. Patient had been on Levaquin outpatient. Repeat urine culture growing Gabriela glabrata. Per infectious disease does not require an antifungal treatment. Patient is asymptomatic. Infectious diseases discontinued the Levaquin 5. MRSA bacterial pneumonia completed vancomycin treatment 6. Chronic atrial fibrillation: Since patient is not proceeding with colonoscopy at this time. INR elevated at 2.9. Patient will receive Coumadin 1 mg tonight 7. Coagulopathy on admission with an INR of 7.2. Patient did receive vitamin K. Monitor daily PT/INR's 8. Atelectasis noted on chest x-ray: Add incentive spirometer. also will resume patient's flutter valve 9. Essential hypertension: Elevated blood pressures. Resume blood pressure medications also she was started on IV Lasix. Continue to monitor 10. Ischemia of the left leg status post thrombectomy with Dr. García. Patient requiring anticoagulation 11. History of COPD. Appears stable. Only had 2 more days of prednisone taper. Patient is not wheezing. We'll add nebulizer treatments 4 times a day and as needed 12. Diabetes mellitus type 2: Blood sugars are still elevated. Increase the Levemir to 35 units in the morning and continue 10 units at bedtime 13. Bacteremia: Blood cultures growing VRE. Infectious disease following. PICC line removed. PICC line culture tip growing quite is negative staph. Repeat blood cultures since PICC line removed have been negative. Patient currently on Zyvox. Infectious disease following 14. Severe protein calorie malnutrition start Glucerna shakes. Patient will be given a dose of IV albumin 15. Consult physical therapy 16. Bradycardia with cardiac pauses. Resolved after cardiology discontinued the digoxin 17. Hyponatremia: Sodium 129 likely related to diuretics. Continue to monitor repeat labs in a.m. GI prophylaxis Protonix and DVT prophylaxis on Coumadin I performed an examination of the patient and discussed their management with the physician [employer]. I have reviewed the Physician [employer]'s notes and agree with the documented findings and plan of care
--- NOTE | 2016-08-13 14:14 | P.PN ---
Subjective Principal diagnosis: CHF This is a 76-year-old female with history of chronic persistent atrial fibrillation, GI bleeding, embolic phenomenon to her lower extremities, diabetes , hyperlipidemia, who was admitted to the hospital initially because of elevated INR. She resides at a longterm. Patient was also found to be in congestive cardiac failure and was initiated on IV Lasix. She was seen and examined today, overall she is diuresing well. Creatinine 1.2, INR 2.9, continues to be on IV Lasix. Patient overall doing much better today. We will have the nurse give the patient sitting up straight in bed to take some deep coughs. Objective - Vital Signs Vital signs: Vital Signs Temp 97.8 F 08/13/16 12:00 Pulse 81 08/13/16 12:00 Resp 22 08/13/16 12:00 BP 112/53 08/13/16 12:00 Pulse Ox 97 08/13/16 12:00 Intake & Output 08/12/16 08/13/16 08/13/16 18:59 06:59 18:59 Intake Total 100 30 900 Output Total 825 450 Balance 100 -795 450 Weight 121.5 kg 121.5 kg Intake: IV 30 540 0.9 30 240 Linezolid 600 mg In 300 Dextrose/Water 1 300ml. bag @ 150 mls/hr IVPB Q12HR [facility] Rx#:[id number] Oral 100 360 Output: Urine 825 450 Uretheral (Urrutia) 450 Other: Voiding Method Indwelling Catheter Indwelling Catheter Indwelling Catheter - Exam PHYSICAL EXAMINATION: HEENT: Head is atraumatic, normocephalic. Pupils equal, round. Neck is supple. There is no elevated jugular venous pressure. HEART EXAMINATION: Heart S1 and S2 irregularly irregular a systolic murmur is heard. CHEST EXAMINATION: Lungs reveal coarse scattered rhonchi throughout ABDOMEN: Soft, obese, nontender. Bowel sounds are heard. No organomegaly noted. EXTREMITIES: 1+ peripheral pulses with trace evidence of peripheral edema and no calf tenderness noted. NEUROLOGIC patient is awake, alert and oriented -3. . - Labs CBC & Chem 7: 08/13/16 06:48 08/13/16 06:48 Labs: Abnormal Lab Results - Last 24 Hours (Table) 08/12/16 08/12/16 08/13/16 Range/Units 16:43 20:52 05:53 RBC (3.80-5.40) m/uL Hgb (11.4-16.0) gm/dL Hct (34.0-46.0) % RDW (11.5-15.5) % Neutrophils # (1.3-7.7) k/uL Lymphocytes # (1.0-4.8) k/uL PT (9.0-12.0) sec Sodium (137-145) mmol/L BUN (7-17) mg/dL Creatinine (0.52-1.04) mg/dL Glucose (74-99) mg/dL POC Glucose (mg/dL) 229 H 242 H 226 H (75-99) mg/dL Calcium (8.4-10.2) mg/dL AST (14-36) U/L Total Protein (6.3-8.2) g/dL Albumin (3.5-5.0) g/dL 08/13/16 08/13/16 08/13/16 Range/Units 06:48 06:48 06:48 RBC 2.71 L (3.80-5.40) m/uL Hgb 8.3 L (11.4-16.0) gm/dL Hct 26.0 L (34.0-46.0) % RDW 17.5 H (11.5-15.5) % Neutrophils # 8.0 H (1.3-7.7) k/uL Lymphocytes # 0.5 L (1.0-4.8) k/uL PT 28.3 H (9.0-12.0) sec Sodium 129 L (137-145) mmol/L BUN 47 H (7-17) mg/dL Creatinine 1.20 H (0.52-1.04) mg/dL Glucose 210 H (74-99) mg/dL POC Glucose (mg/dL) (75-99) mg/dL Calcium 7.7 L (8.4-10.2) mg/dL AST 11 L (14-36) U/L Total Protein 4.6 L (6.3-8.2) g/dL Albumin 2.3 L (3.5-5.0) g/dL 08/13/16 Range/Units 12:22 RBC (3.80-5.40) m/uL Hgb (11.4-16.0) gm/dL Hct (34.0-46.0) % RDW (11.5-15.5) % Neutrophils # (1.3-7.7) k/uL Lymphocytes # (1.0-4.8) k/uL PT (9.0-12.0) sec Sodium (137-145) mmol/L BUN (7-17) mg/dL Creatinine (0.52-1.04) mg/dL Glucose (74-99) mg/dL POC Glucose (mg/dL) 254 H (75-99) mg/dL Calcium (8.4-10.2) mg/dL AST (14-36) U/L Total Protein (6.3-8.2) g/dL Albumin (3.5-5.0) g/dL Microbiology - Last 24 Hours (Table) 08/09/16 05:34 Blood Culture - Preliminary Blood No Growth after 96 hours 08/09/16 06:06 Blood Culture - Preliminary Blood No Growth after 96 hours 08/06/16 13:45 Blood Culture - Final Blood No Growth after 144 hours Assessment and Plan (1) Chronic a-fib Status: Acute (2) GI bleed Status: Acute (3) Morbid obesity Status: Acute (4) Embolic phenomenon secondary to atrial fibrillation Status: Acute (5) Elevated INR Status: Acute (6) Systolic CHF, acute on chronic Status: Acute Plan: From cardiology's perspective, would discontinue the IV Lasix and start the patient on oral diuretics. We will also have the nurse set the patient up in bed and take deep breaths and coughs to clear up her secretions. Overall she is progressing very well. DNP note has been reviewed, I agree with a documented findings and plan of care. Patient was seen and examined.
[2016-08-13 17:26] LABS: Glucose,Whole Blood 225 mg/dL (75-99)
[2016-08-13] MEDS: FUROSEMIDE 40 MG TAB PO SCH (17:39)
[2016-08-13] MEDS ORDERED: WARFARIN 1 MG TAB PO ONE (18:00)
[2016-08-13 20:54] LABS: Glucose,Whole Blood 176 mg/dL (75-99)
[2016-08-13] MEDS: MONTELUKAST 10 MG TAB PO SCH (21:39)
[2016-08-13] MEDS: POLYETHYLENE GLYCOL 3350 17 GM POWD.PACK PO SCH (21:40)
[2016-08-13] MEDS: INSULIN DETEMIR 100 UNIT/ML 10 ML VIAL SQ SCH (21:40)
[2016-08-13] MEDS: ACETAMINOPHEN TAB 325 MG TAB PO PRN (21:45)
[2016-08-14] MEDS: HYDROmorphone 1 MG/ML 1 ML SYRINGE IV PRN ×2 (00:42→23:52)
[2016-08-14 04:00] LABS: Glucose,Whole Blood 136 mg/dL (75-99)
[2016-08-14 05:57] LABS: Glucose,Whole Blood 126 mg/dL (75-99)
[2016-08-14 06:41] LABS: Anisocytosis Slight; Basophils % (A) 0 %; CH 29.5; CHCM 30.5; Eosinophils % (A) 0 %; HCT 26.3 % (34.0-46.0); HDW 3.24; HGB 8.2 gm/dL (11.4-16.0); Hypochromasia Marked; Luc # (Auto) 0.16; Luc % (Auto) 1; Lymphocytes # (A) 0.7 k/uL (1.0-4.8); Lymphocytes % (A) 5 %; MCH 30.3 pg (25.0-35.0); MCHC 31.1 g/dL (31.0-37.0); MCV 97.4 fL (80.0-100.0); Macrocytosis Slight; Mean Platelet Volume 7.4; Monocytes # (A) 0.6 k/uL (0-1.0); Monocytes % (A) 4 %; Neutrophils # (A) 12.9 k/uL (1.3-7.7); Neutrophils % (A) 90 %; RDW 17.6 % (11.5-15.5); WBC 14.4 k/uL (3.8-10.6)
[2016-08-14] MEDS: INSULIN LISPRO (humaLOG) 300 UNIT/3 ML VIAL SQ SCH ×4 (06:46→21:26)
[2016-08-14] MEDS: FERROUS SULFATE 325 MG TAB PO SCH ×2 (06:46→15:47)
[2016-08-14 06:48] LABS: INR 1.7 (<1.1); Prothrombin Time 16.7 sec (9.0-12.0)
[2016-08-14 06:52] LABS: ALT 24 U/L (9-52); AST 14 U/L (14-36); Alkaline Phosphatase 52 U/L (38-126); Anion Gap 11 mmol/L; Blood Urea Nitrogen 46 mg/dL (7-17); Calcium 7.8 mg/dL (8.4-10.2); Carbon Dioxide 22 mmol/L (22-30); Chloride 98 mmol/L (98-107); Glucose 109 mg/dL (74-99); Non-African American GFR(MDRD) 51 (>60 ml/min/1.73 sqM); Potassium 4.2 mmol/L (3.5-5.1); Sodium 131 mmol/L (137-145); Total Bilirubin 0.4 mg/dL (0.2-1.3)
[2016-08-14] MEDS: BUDESONIDE 1 MG/2 ML NEBU INHALATION SCH ×2 (09:07→20:18)
[2016-08-14] MEDS: IPRATROPIUM-ALBUTEROL 3 ML NEB INHALATION SCH ×4 (09:07→20:18)
[2016-08-14] MEDS: ALPRAZolam 0.25 MG TAB PO SCH ×2 (09:18→21:41)
[2016-08-14] MEDS: INSULIN DETEMIR 100 UNIT/ML 10 ML VIAL SQ SCH ×2 (09:18→21:42)
[2016-08-14] MEDS: DOCUSATE 100 MG CAP PO SCH ×2 (09:18→21:41)
[2016-08-14] MEDS: METOPROLOL SUCCINATE (ER) 100 MG TAB.ER.24H PO SCH ×2 (09:18→21:34)
[2016-08-14] MEDS: ALLOPURINOL 100 MG TAB PO SCH (09:18)
[2016-08-14] MEDS: SPIRONOLACTONE 25 MG TAB PO SCH (09:18)
[2016-08-14] MEDS: LINEZOLID 600 MG TAB PO SCH ×2 (09:19→21:34)
[2016-08-14] MEDS: guaiFENesin 600 MG TABLET.ER PO SCH ×2 (09:19→21:38)
[2016-08-14] MEDS: FUROSEMIDE 40 MG TAB PO SCH ×2 (09:19→15:47)
--- NOTE | 2016-08-14 12:08 | P.PN ---
Subjective Patient is been seen by me today for weekend coverage. She is doing fairly well. She does not have any concerns. Objective - Vital Signs Vital signs: Vital Signs Temp 98.1 F 08/14/16 08:00 Pulse 90 08/14/16 09:28 Resp 16 08/14/16 08:00 BP 128/54 08/14/16 08:00 Pulse Ox 100 08/14/16 08:00 Intake & Output 08/13/16 08/14/16 08/14/16 18:59 06:59 18:59 Intake Total 1120 460 120 Output Total 650 800 Balance 470 -340 120 Weight 121.5 kg 120.5 kg Intake: IV 540 460 0.9 240 160 Linezolid 600 mg In 300 300 Dextrose/Water 1 300ml. bag @ 150 mls/hr IVPB Q12HR SHARONDA Rx#:[id number] Oral 580 120 Output: Urine 650 800 Uretheral (Urrutia) 650 400 Other: Voiding Method Indwelling Catheter Indwelling Catheter Indwelling Catheter - Exam General: The patient is awake and alert, in no distress Eye: there is normal conjunctiva bilaterally. Neck: The neck is supple, there is no JVD. Cardiovascular: Normal S1-S2, no S3-S4, no murmurs. Respiratory: Lungs are diminished with diffuse rhonchi all over the chest Gastrointestinal: Abdomen is soft, nontender Musculoskeletal: There is no pedal edema. Neurological:. Speech is normal. Skin: Skin is warm and dry - Labs CBC & Chem 7: 08/14/16 06:19 08/14/16 06:19 Labs: Abnormal Lab Results - Last 24 Hours (Table) 08/13/16 08/13/16 08/13/16 Range/Units 12:22 17:25 20:53 WBC (3.8-10.6) k/uL RBC (3.80-5.40) m/uL Hgb (11.4-16.0) gm/dL Hct (34.0-46.0) % RDW (11.5-15.5) % Neutrophils # (1.3-7.7) k/uL Lymphocytes # (1.0-4.8) k/uL PT (9.0-12.0) sec Sodium (137-145) mmol/L BUN (7-17) mg/dL Glucose (74-99) mg/dL POC Glucose (mg/dL) 254 H 225 H 176 H (75-99) mg/dL Calcium (8.4-10.2) mg/dL Total Protein (6.3-8.2) g/dL Albumin (3.5-5.0) g/dL 08/14/16 08/14/16 08/14/16 Range/Units 03:59 05:55 06:19 WBC 14.4 H (3.8-10.6) k/uL RBC 2.70 L (3.80-5.40) m/uL Hgb 8.2 L (11.4-16.0) gm/dL Hct 26.3 L (34.0-46.0) % RDW 17.6 H (11.5-15.5) % Neutrophils # 12.9 H (1.3-7.7) k/uL Lymphocytes # 0.7 L (1.0-4.8) k/uL PT (9.0-12.0) sec Sodium (137-145) mmol/L BUN (7-17) mg/dL Glucose (74-99) mg/dL POC Glucose (mg/dL) 136 H 126 H (75-99) mg/dL Calcium (8.4-10.2) mg/dL Total Protein (6.3-8.2) g/dL Albumin (3.5-5.0) g/dL 08/14/16 08/14/16 Range/Units 06:19 06:19 WBC (3.8-10.6) k/uL RBC (3.80-5.40) m/uL Hgb (11.4-16.0) gm/dL Hct (34.0-46.0) % RDW (11.5-15.5) % Neutrophils # (1.3-7.7) k/uL Lymphocytes # (1.0-4.8) k/uL PT 16.7 H (9.0-12.0) sec Sodium 131 L (137-145) mmol/L BUN 46 H (7-17) mg/dL Glucose 109 H (74-99) mg/dL POC Glucose (mg/dL) (75-99) mg/dL Calcium 7.8 L (8.4-10.2) mg/dL Total Protein 5.0 L (6.3-8.2) g/dL Albumin 2.4 L (3.5-5.0) g/dL Microbiology - Last 24 Hours (Table) 08/09/16 05:34 Blood Culture - Preliminary Blood No Growth after 120 hours 08/09/16 06:06 Blood Culture - Preliminary Blood No Growth after 120 hours Assessment and Plan Plan: 1. Acute on chronic anemia. Stool for occult blood positive. EGD in February 2016 was negative. Patient was unable to tolerate colonoscopy in April secondary to Patient's during her hospitalization. GI service was consulted to evaluate patient for possible colonoscopy. At this time there is no scheduled for colonoscopy due to patient's respiratory status. Patient is hesitant to proceed with procedure. Iron deficiency anemia continue with her ferrous sulfate. 2. Acute blood loss anemia with stool positive occult blood. Likely related to the coagulopathy. Patient did require blood transfusions. Hemoglobin 8.3 3. Acute on chronic systolic CHF exacerbation: Echo from April 2016 shows an EF of 40-45%. Patient had elevated BNP on admission and chest x-ray showing evidence of congestive heart failure with patchy atelectasis. Continue IV Lasix. Cardiology following. 4. UTI: With recent urine culture growing Enterobacter Colace and Pseudomonas aeruginosa. Patient had been on Levaquin outpatient. Repeat urine culture growing Gabriela glabrata. Per infectious disease does not require an antifungal treatment. Patient is asymptomatic. Infectious diseases discontinued the Levaquin 5. MRSA bacterial pneumonia completed vancomycin treatment 6. Chronic atrial fibrillation: Since patient is not proceeding with colonoscopy at this time. INR elevated at 2.9. Patient will receive Coumadin 1 mg tonight 7. Coagulopathy on admission with an INR of 7.2. Patient did receive vitamin K. Monitor daily PT/INR's 8. Atelectasis noted on chest x-ray: Add incentive spirometer. also will resume patient's flutter valve 9. Essential hypertension: Elevated blood pressures. Resume blood pressure medications also she was started on IV Lasix. Continue to monitor 10. Ischemia of the left leg status post thrombectomy with Dr. García. Patient requiring anticoagulation 11. History of COPD. Appears stable. Only had 2 more days of prednisone taper. Patient is not wheezing. We'll add nebulizer treatments 4 times a day and as needed 12. Diabetes mellitus type 2: Blood sugars are still elevated. Increase the Levemir to 35 units in the morning and continue 10 units at bedtime 13. Bacteremia: Blood cultures growing VRE. Infectious disease following. PICC line removed. PICC line culture tip growing quite is negative staph. Repeat blood cultures since PICC line removed have been negative. Patient currently on Zyvox. Infectious disease following 14. Severe protein calorie malnutrition start Glucerna shakes. Patient will be given a dose of IV albumin 15. Consult physical therapy Continue current management.
--- NOTE | 2016-08-14 12:08 | P.PN ---
Subjective Principal diagnosis: CHF This is a 76-year-old female with history of chronic persistent atrial fibrillation, GI bleeding, embolic phenomenon to her lower extremities, diabetes , hyperlipidemia, who was admitted to the hospital initially because of elevated INR. She resides at a snf. Patient was also found to be in congestive cardiac failure and was initiated on IV Lasix. She was seen and examined today, overall she is diuresing well. Creatinine 1.04, INR 1.7, on by mouth Lasix today. Objective - Vital Signs Vital signs: Vital Signs Temp 98.1 F 08/14/16 08:00 Pulse 90 08/14/16 09:28 Resp 16 08/14/16 08:00 BP 128/54 08/14/16 08:00 Pulse Ox 100 08/14/16 08:00 Intake & Output 08/13/16 08/14/16 08/14/16 18:59 06:59 18:59 Intake Total 1120 460 120 Output Total 650 800 Balance 470 -340 120 Weight 121.5 kg 120.5 kg Intake: IV 540 460 0.9 240 160 Linezolid 600 mg In 300 300 Dextrose/Water 1 300ml. bag @ 150 mls/hr IVPB Q12HR [facility] Rx#:[id number] Oral 580 120 Output: Urine 650 800 Uretheral (Urrutia) 650 400 Other: Voiding Method Indwelling Catheter Indwelling Catheter Indwelling Catheter - Exam PHYSICAL EXAMINATION: HEENT: Head is atraumatic, normocephalic. Pupils equal, round. Neck is supple. There is no elevated jugular venous pressure. HEART EXAMINATION: Heart S1 and S2 irregularly irregular a systolic murmur is heard. CHEST EXAMINATION: Lungs reveal coarse scattered rhonchi throughout ABDOMEN: Soft, obese, nontender. Bowel sounds are heard. No organomegaly noted. EXTREMITIES: 1+ peripheral pulses with trace evidence of peripheral edema and no calf tenderness noted. NEUROLOGIC patient is awake, alert and oriented -3. . - Labs CBC & Chem 7: 08/14/16 06:19 08/14/16 06:19 Labs: Abnormal Lab Results - Last 24 Hours (Table) 08/13/16 08/13/16 08/13/16 Range/Units 12:22 17:25 20:53 WBC (3.8-10.6) k/uL RBC (3.80-5.40) m/uL Hgb (11.4-16.0) gm/dL Hct (34.0-46.0) % RDW (11.5-15.5) % Neutrophils # (1.3-7.7) k/uL Lymphocytes # (1.0-4.8) k/uL PT (9.0-12.0) sec Sodium (137-145) mmol/L BUN (7-17) mg/dL Glucose (74-99) mg/dL POC Glucose (mg/dL) 254 H 225 H 176 H (75-99) mg/dL Calcium (8.4-10.2) mg/dL Total Protein (6.3-8.2) g/dL Albumin (3.5-5.0) g/dL 08/14/16 08/14/16 08/14/16 Range/Units 03:59 05:55 06:19 WBC 14.4 H (3.8-10.6) k/uL RBC 2.70 L (3.80-5.40) m/uL Hgb 8.2 L (11.4-16.0) gm/dL Hct 26.3 L (34.0-46.0) % RDW 17.6 H (11.5-15.5) % Neutrophils # 12.9 H (1.3-7.7) k/uL Lymphocytes # 0.7 L (1.0-4.8) k/uL PT (9.0-12.0) sec Sodium (137-145) mmol/L BUN (7-17) mg/dL Glucose (74-99) mg/dL POC Glucose (mg/dL) 136 H 126 H (75-99) mg/dL Calcium (8.4-10.2) mg/dL Total Protein (6.3-8.2) g/dL Albumin (3.5-5.0) g/dL 08/14/16 08/14/16 Range/Units 06:19 06:19 WBC (3.8-10.6) k/uL RBC (3.80-5.40) m/uL Hgb (11.4-16.0) gm/dL Hct (34.0-46.0) % RDW (11.5-15.5) % Neutrophils # (1.3-7.7) k/uL Lymphocytes # (1.0-4.8) k/uL PT 16.7 H (9.0-12.0) sec Sodium 131 L (137-145) mmol/L BUN 46 H (7-17) mg/dL Glucose 109 H (74-99) mg/dL POC Glucose (mg/dL) (75-99) mg/dL Calcium 7.8 L (8.4-10.2) mg/dL Total Protein 5.0 L (6.3-8.2) g/dL Albumin 2.4 L (3.5-5.0) g/dL Microbiology - Last 24 Hours (Table) 08/09/16 05:34 Blood Culture - Preliminary Blood No Growth after 120 hours 08/09/16 06:06 Blood Culture - Preliminary Blood No Growth after 120 hours Assessment and Plan (1) Chronic a-fib Status: Acute (2) GI bleed Status: Acute (3) Morbid obesity Status: Acute (4) Embolic phenomenon secondary to atrial fibrillation Status: Acute (5) Elevated INR Status: Acute (6) Systolic CHF, acute on chronic Status: Acute Plan: From cardiology's perspective, we will continue current medication. Arrangements are being made for possible transferred to rehab on Tuesday. DNP note has been reviewed, I agree with a documented findings and plan of care. Patient was seen and examined.
[2016-08-14 12:19] LABS: Glucose,Whole Blood 94 mg/dL (75-99)
[2016-08-14] MEDS: PANTOPRAZOLE 40 MG TABLET PO SCH (15:47)
[2016-08-14] MEDS: LOSARTAN 25 MG TAB PO SCH (15:47)
[2016-08-14 17:07] LABS: Glucose,Whole Blood 115 mg/dL (75-99)
[2016-08-14 20:48] LABS: Glucose,Whole Blood 115 mg/dL (75-99)
[2016-08-14] MEDS: POLYETHYLENE GLYCOL 3350 17 GM POWD.PACK PO SCH (21:29)
[2016-08-14] MEDS: ACETAMINOPHEN TAB 325 MG TAB PO PRN (21:38)
[2016-08-14] MEDS: MONTELUKAST 10 MG TAB PO SCH (21:41)
[2016-08-15 02:19] LABS: Glucose,Whole Blood 122 mg/dL (75-99)
[2016-08-15 06:24] LABS: Glucose,Whole Blood 105 mg/dL (75-99)
[2016-08-15 06:38] LABS: Anisocytosis Slight; CH 29.5; CHCM 31.4; HCT 25.1 % (34.0-46.0); HDW 3.27; HGB 8.1 gm/dL (11.4-16.0); Hypochromasia Slight; MCH 30.8 pg (25.0-35.0); MCHC 32.5 g/dL (31.0-37.0); MCV 94.7 fL (80.0-100.0); Macrocytosis Slight; Mean Platelet Volume 7.4; RBC 2.65 m/uL (3.80-5.40); WBC (Perox) 29.99
[2016-08-15 06:42] LABS: INR 1.9 (<1.1); Prothrombin Time 18.2 sec (9.0-12.0)
[2016-08-15 06:45] LABS: ALT 24 U/L (9-52); AST 18 U/L (14-36); Alkaline Phosphatase 69 U/L (38-126); Anion Gap 10 mmol/L; Blood Urea Nitrogen 44 mg/dL (7-17); Calcium 7.9 mg/dL (8.4-10.2); Carbon Dioxide 23 mmol/L (22-30); Chloride 100 mmol/L (98-107); Glucose 106 mg/dL (74-99); Non-African American GFR(MDRD) 51 (>60 ml/min/1.73 sqM); Sodium 133 mmol/L (137-145); Total Bilirubin 0.4 mg/dL (0.2-1.3); Total Protein 4.9 g/dL (6.3-8.2)
[2016-08-15 06:48] LABS: WBC 28.1 k/uL (3.8-10.6)
[2016-08-15 07:07] LABS: Add Differential Manual Differential
[2016-08-15 07:10] LABS: Band Neutrophils % 0.5 %; Manual Review Performed; Nucleated Red Blood Cells 0 /100 WBC (0-0); Total Cells Counted 200
[2016-08-15 07:11] LABS: Polychromasia Present
[2016-08-15] MEDS ORDERED: guaiFENesin 600 MG TABLET.ER PO ONE (09:00)
[2016-08-15] MEDS ORDERED: BUDESONIDE 1 MG/2 ML NEBU INHALATION ONE (09:00)
[2016-08-15] MEDS ORDERED: IPRATROPIUM-ALBUTEROL 3 ML NEB ONE (09:00)
[2016-08-15] MEDS ORDERED: SPIRONOLACTONE 25 MG TAB ONE (09:00)
[2016-08-15] MEDS ORDERED: METOPROLOL SUCCINATE (ER) 100 MG TAB.ER.24H PO ONE (09:00)
[2016-08-15] MEDS ORDERED: FERROUS SULFATE 325 MG TAB PO ONE (09:00)
[2016-08-15] MEDS ORDERED: ALLOPURINOL 100 MG TAB ONE (09:00)
[2016-08-15] MEDS ORDERED: DOCUSATE 100 MG CAP ONE (09:00)
[2016-08-15] MEDS ORDERED: LOSARTAN 25 MG TAB ONE (09:00)
[2016-08-15] MEDS ORDERED: ALPRAZolam 0.25 MG TAB ONE (09:00)
[2016-08-15] MEDS ORDERED: PANTOPRAZOLE 40 MG TABLET PO ONE (09:00)
[2016-08-15] MEDS ORDERED: FUROSEMIDE 40 MG TAB ONE (09:00)
[2016-08-15] MEDS ORDERED: LINEZOLID 600 MG TAB ONE (09:00)
[2016-08-15] MEDS: BUDESONIDE 1 MG/2 ML NEBU INHALATION SCH ×2 (11:11→20:03)
[2016-08-15] MEDS: IPRATROPIUM-ALBUTEROL 3 ML NEB INHALATION SCH ×4 (11:11→20:03)
[2016-08-15] MEDS: FERROUS SULFATE 325 MG TAB PO SCH ×2 (11:25→17:33)
[2016-08-15] MEDS: INSULIN LISPRO (humaLOG) 300 UNIT/3 ML VIAL SQ SCH ×4 (11:25→21:53)
[2016-08-15] MEDS: FUROSEMIDE 40 MG TAB PO SCH ×2 (11:26→17:34)
[2016-08-15] MEDS: INSULIN DETEMIR 100 UNIT/ML 10 ML VIAL SQ SCH ×2 (11:26→21:53)
[2016-08-15] MEDS: ALLOPURINOL 100 MG TAB PO SCH (11:26)
[2016-08-15] MEDS: DOCUSATE 100 MG CAP PO SCH ×2 (11:26→21:47)
[2016-08-15] MEDS: LINEZOLID 600 MG TAB PO SCH ×2 (11:26→21:53)
[2016-08-15] MEDS: guaiFENesin 600 MG TABLET.ER PO SCH ×2 (11:26→21:53)
[2016-08-15] MEDS: ALPRAZolam 0.25 MG TAB PO SCH ×2 (11:26→21:52)
[2016-08-15] MEDS: LOSARTAN 25 MG TAB PO SCH (11:26)
[2016-08-15] MEDS: PANTOPRAZOLE 40 MG TABLET PO SCH (11:27)
[2016-08-15] MEDS: SPIRONOLACTONE 25 MG TAB PO SCH (11:27)
[2016-08-15] MEDS: METOPROLOL SUCCINATE (ER) 100 MG TAB.ER.24H PO SCH ×2 (11:27→21:53)
[2016-08-15 11:44] LABS: Glucose,Whole Blood 124 mg/dL (75-99)
--- NOTE | 2016-08-15 12:12 | P.PN ---
Subjective Principal diagnosis: CHF This is a 76-year-old female with history of chronic persistent atrial fibrillation, GI bleeding, embolic phenomenon to her lower extremities, diabetes , hyperlipidemia, who was admitted to the hospital initially because of elevated INR. She resides at a senior care. Patient was also found to be in congestive cardiac failure and diuresed with IV Lasix. Currently on by mouth Lasix. WBC 28,000. Low-grade temperature on nights of 99.5. Objective - Vital Signs Vital signs: Vital Signs Temp 98.9 F 08/15/16 08:00 Pulse 94 08/15/16 11:25 Resp 18 08/15/16 08:00 BP 125/69 08/15/16 08:00 Pulse Ox 91 L 08/15/16 08:00 Intake & Output 08/14/16 08/15/16 08/15/16 18:59 06:59 18:59 Intake Total 830 160 180 Output Total 500 2050 Balance 330 -1890 180 Weight 120 kg Intake: IV 140 160 80 0.9 140 160 80 Oral 690 100 Output: Urine 500 2050 Other: Voiding Method Indwelling Catheter Indwelling Catheter Indwelling Catheter # Voids 2 # Bowel Movements 0 - Exam PHYSICAL EXAMINATION: HEENT: Head is atraumatic, normocephalic. Pupils equal, round. Neck is supple. There is no elevated jugular venous pressure. HEART EXAMINATION: Heart S1 and S2 irregularly irregular a systolic murmur is heard. CHEST EXAMINATION: Lungs reveal coarse scattered rhonchi throughout ABDOMEN: Soft, obese, nontender. Bowel sounds are heard. No organomegaly noted. EXTREMITIES: 1+ peripheral pulses with trace evidence of peripheral edema and no calf tenderness noted. NEUROLOGIC patient is awake, alert and oriented -3. . - Labs CBC & Chem 7: 08/15/16 06:18 08/15/16 06:18 Labs: Abnormal Lab Results - Last 24 Hours (Table) 08/14/16 08/14/16 08/15/16 Range/Units 16:54 20:45 02:16 WBC (3.8-10.6) k/uL RBC (3.80-5.40) m/uL Hgb (11.4-16.0) gm/dL Hct (34.0-46.0) % RDW (11.5-15.5) % Neutrophils # (Manual) (1.3-7.7) k/uL Lymphocytes # (Manual) (1.0-4.8) k/uL Monocytes # (Manual) (0-1.0) k/uL PT (9.0-12.0) sec Sodium (137-145) mmol/L BUN (7-17) mg/dL Creatinine (0.52-1.04) mg/dL Glucose (74-99) mg/dL POC Glucose (mg/dL) 115 H 115 H 122 H (75-99) mg/dL Calcium (8.4-10.2) mg/dL Total Protein (6.3-8.2) g/dL Albumin (3.5-5.0) g/dL 08/15/16 08/15/16 08/15/16 Range/Units 06:18 06:18 06:18 WBC 28.1 H* (3.8-10.6) k/uL RBC 2.65 L (3.80-5.40) m/uL Hgb 8.1 L (11.4-16.0) gm/dL Hct 25.1 L (34.0-46.0) % RDW 18.0 H (11.5-15.5) % Neutrophils # (Manual) 25.3 H (1.3-7.7) k/uL Lymphocytes # (Manual) 0.6 L (1.0-4.8) k/uL Monocytes # (Manual) 2.2 H (0-1.0) k/uL PT 18.2 H (9.0-12.0) sec Sodium 133 L (137-145) mmol/L BUN 44 H (7-17) mg/dL Creatinine 1.05 H (0.52-1.04) mg/dL Glucose 106 H (74-99) mg/dL POC Glucose (mg/dL) (75-99) mg/dL Calcium 7.9 L (8.4-10.2) mg/dL Total Protein 4.9 L (6.3-8.2) g/dL Albumin 2.3 L (3.5-5.0) g/dL 08/15/16 08/15/16 Range/Units 06:21 11:17 WBC (3.8-10.6) k/uL RBC (3.80-5.40) m/uL Hgb (11.4-16.0) gm/dL Hct (34.0-46.0) % RDW (11.5-15.5) % Neutrophils # (Manual) (1.3-7.7) k/uL Lymphocytes # (Manual) (1.0-4.8) k/uL Monocytes # (Manual) (0-1.0) k/uL PT (9.0-12.0) sec Sodium (137-145) mmol/L BUN (7-17) mg/dL Creatinine (0.52-1.04) mg/dL Glucose (74-99) mg/dL POC Glucose (mg/dL) 105 H 124 H (75-99) mg/dL Calcium (8.4-10.2) mg/dL Total Protein (6.3-8.2) g/dL Albumin (3.5-5.0) g/dL Microbiology - Last 24 Hours (Table) 08/09/16 05:34 Blood Culture - Final Blood No Growth after 144 hours 08/09/16 06:06 Blood Culture - Final Blood No Growth after 144 hours Assessment and Plan (1) Chronic a-fib Status: Acute (2) GI bleed Status: Acute (3) Morbid obesity Status: Acute (4) Embolic phenomenon secondary to atrial fibrillation Status: Acute (5) Elevated INR Status: Acute (6) Systolic CHF, acute on chronic Status: Acute Plan: From cardiology's perspective, we will continue current medication. Arrangements are being made for possible transferred to rehab on Tuesday. DNP note has been reviewed, I agree with a documented findings and plan of care. Patient was seen and examined.
--- NOTE | 2016-08-15 13:54 | P.PN ---
Subjective Patient is been seen by me today for weekend coverage. She is doing fairly well. She does not have any concerns. WBC count almost doubled compared to yesterday. No documented fevers. Objective - Vital Signs Vital signs: Vital Signs Temp 98.3 F 08/15/16 12:00 Pulse 84 08/15/16 12:00 Resp 18 08/15/16 12:00 BP 125/76 08/15/16 12:00 Pulse Ox 92 L 08/15/16 12:00 Intake & Output 08/14/16 08/15/16 08/15/16 18:59 06:59 18:59 Intake Total 830 160 280 Output Total 500 0 Balance 330 -1890 280 Weight 120 kg Intake: IV 140 160 80 0.9 140 160 80 Oral 690 200 Output: Urine 500 2049 Other: Voiding Method Indwelling Catheter Indwelling Catheter Indwelling Catheter # Voids 2 # Bowel Movements 0 - Exam General: The patient is awake and alert, in no distress Eye: there is normal conjunctiva bilaterally. Neck: The neck is supple, there is no JVD. Cardiovascular: Normal S1-S2, no S3-S4, no murmurs. Respiratory: Lungs are diminished with diffuse rhonchi all over the chest Gastrointestinal: Abdomen is soft, nontender Musculoskeletal: There is no pedal edema. Neurological:. Speech is normal. Skin: Skin is warm and dry - Labs CBC & Chem 7: 08/15/16 06:18 08/15/16 06:18 Labs: Abnormal Lab Results - Last 24 Hours (Table) 08/14/16 08/14/16 08/15/16 Range/Units 16:54 20:45 02:16 WBC (3.8-10.6) k/uL RBC (3.80-5.40) m/uL Hgb (11.4-16.0) gm/dL Hct (34.0-46.0) % RDW (11.5-15.5) % Neutrophils # (Manual) (1.3-7.7) k/uL Lymphocytes # (Manual) (1.0-4.8) k/uL Monocytes # (Manual) (0-1.0) k/uL PT (9.0-12.0) sec Sodium (137-145) mmol/L BUN (7-17) mg/dL Creatinine (0.52-1.04) mg/dL Glucose (74-99) mg/dL POC Glucose (mg/dL) 115 H 115 H 122 H (75-99) mg/dL Calcium (8.4-10.2) mg/dL Total Protein (6.3-8.2) g/dL Albumin (3.5-5.0) g/dL 08/15/16 08/15/16 08/15/16 Range/Units 06:18 06:18 06:18 WBC 28.1 H* (3.8-10.6) k/uL RBC 2.65 L (3.80-5.40) m/uL Hgb 8.1 L (11.4-16.0) gm/dL Hct 25.1 L (34.0-46.0) % RDW 18.0 H (11.5-15.5) % Neutrophils # (Manual) 25.3 H (1.3-7.7) k/uL Lymphocytes # (Manual) 0.6 L (1.0-4.8) k/uL Monocytes # (Manual) 2.2 H (0-1.0) k/uL PT 18.2 H (9.0-12.0) sec Sodium 133 L (137-145) mmol/L BUN 44 H (7-17) mg/dL Creatinine 1.05 H (0.52-1.04) mg/dL Glucose 106 H (74-99) mg/dL POC Glucose (mg/dL) (75-99) mg/dL Calcium 7.9 L (8.4-10.2) mg/dL Total Protein 4.9 L (6.3-8.2) g/dL Albumin 2.3 L (3.5-5.0) g/dL 08/15/16 08/15/16 Range/Units 06:21 11:17 WBC (3.8-10.6) k/uL RBC (3.80-5.40) m/uL Hgb (11.4-16.0) gm/dL Hct (34.0-46.0) % RDW (11.5-15.5) % Neutrophils # (Manual) (1.3-7.7) k/uL Lymphocytes # (Manual) (1.0-4.8) k/uL Monocytes # (Manual) (0-1.0) k/uL PT (9.0-12.0) sec Sodium (137-145) mmol/L BUN (7-17) mg/dL Creatinine (0.52-1.04) mg/dL Glucose (74-99) mg/dL POC Glucose (mg/dL) 105 H 124 H (75-99) mg/dL Calcium (8.4-10.2) mg/dL Total Protein (6.3-8.2) g/dL Albumin (3.5-5.0) g/dL Microbiology - Last 24 Hours (Table) 08/09/16 05:34 Blood Culture - Final Blood No Growth after 144 hours 08/09/16 06:06 Blood Culture - Final Blood No Growth after 144 hours Assessment and Plan Plan: 1. Acute on chronic anemia. Stool for occult blood positive. EGD in February 2016 was negative. Patient was unable to tolerate colonoscopy in April secondary to Patient's during her hospitalization. GI service was consulted to evaluate patient for possible colonoscopy. At this time there is no scheduled for colonoscopy due to patient's respiratory status. Patient is hesitant to proceed with procedure. Iron deficiency anemia continue with her ferrous sulfate. 2. Acute blood loss anemia with stool positive occult blood. Likely related to the coagulopathy. Patient did require blood transfusions. Hemoglobin 8.3 3. Acute on chronic systolic CHF exacerbation: Echo from April 2016 shows an EF of 40-45%. Patient had elevated BNP on admission and chest x-ray showing evidence of congestive heart failure with patchy atelectasis. Continue IV Lasix. Cardiology following. 4. UTI: With recent urine culture growing Enterobacter Colace and Pseudomonas aeruginosa. Patient had been on Levaquin outpatient. Repeat urine culture growing Gabriela glabrata. Per infectious disease does not require an antifungal treatment. Patient is asymptomatic. Infectious diseases discontinued the Levaquin 5. MRSA bacterial pneumonia completed vancomycin treatment 6. Chronic atrial fibrillation: Since patient is not proceeding with colonoscopy at this time. INR elevated at 2.9. Patient will receive Coumadin 1 mg tonight 7. Coagulopathy on admission with an INR of 7.2. Patient did receive vitamin K. Monitor daily PT/INR's 8. Atelectasis noted on chest x-ray: Add incentive spirometer. also will resume patient's flutter valve 9. Essential hypertension: Elevated blood pressures. Resume blood pressure medications also she was started on IV Lasix. Continue to monitor 10. Ischemia of the left leg status post thrombectomy with Dr. García. Patient requiring anticoagulation 11. History of COPD. Appears stable. Only had 2 more days of prednisone taper. Patient is not wheezing. We'll add nebulizer treatments 4 times a day and as needed 12. Diabetes mellitus type 2: Blood sugars are still elevated. Increase the Levemir to 35 units in the morning and continue 10 units at bedtime 13. Bacteremia: Blood cultures growing VRE. Infectious disease following. PICC line removed. PICC line culture tip growing quite is negative staph. Repeat blood cultures since PICC line removed have been negative. Patient currently on Zyvox. Infectious disease following 14. Severe protein calorie malnutrition start Glucerna shalionel. Patient will be given a dose of IV albumin 15. Consult physical therapy Continue current management. Patient daughter told me that they are considering hospice at home possibly tomorrow.
[2016-08-15 17:13] LABS: Glucose,Whole Blood 184 mg/dL (75-99)
[2016-08-15 21:13] LABS: Glucose,Whole Blood 207 mg/dL (75-99)
[2016-08-15] MEDS: POLYETHYLENE GLYCOL 3350 17 GM POWD.PACK PO SCH (21:47)
[2016-08-15] MEDS: ACETAMINOPHEN TAB 325 MG TAB PO PRN (21:52)
[2016-08-15] MEDS: MONTELUKAST 10 MG TAB PO SCH (21:52)
[2016-08-15 23:13] LABS: Anisocytosis Slight; Basophils # (A) 0.1 k/uL (0-0.2); Basophils % (A) 0 %; CH 29.8; CHCM 30.1; Eosinophils % (A) 0 %; HCT 28.6 % (34.0-46.0); HDW 3.14; HGB 8.4 gm/dL (11.4-16.0); Hypochromasia Marked; Luc # (Auto) 0.22; Luc % (Auto) 1; Lymphocytes # (A) 0.4 k/uL (1.0-4.8); Lymphocytes % (A) 1 %; MCH 29.2 pg (25.0-35.0); MCHC 29.2 g/dL (31.0-37.0); Macrocytosis Slight; Mean Platelet Volume 8.2; Monocytes # (A) 0.8 k/uL (0-1.0); Monocytes % (A) 3 %; Neutrophils # (A) 31.7 k/uL (1.3-7.7); RBC 2.86 m/uL (3.80-5.40); RDW 17.8 % (11.5-15.5); WBC (Perox) 34.79
[2016-08-15 23:30] LABS: Calcium 8.1 mg/dL (8.4-10.2); Potassium 4.3 mmol/L (3.5-5.1)
[2016-08-15] MEDS ORDERED: FUROSEMIDE 10 MG/ML 4 ML VIAL IV STA (23:46)
[2016-08-16 00:02] LABS: WBC 33.2 k/uL (3.8-10.6)
[2016-08-16 00:06] LABS: MCV 99.9 fL (80.0-100.0)
[2016-08-16 00:56] LABS: Neutrophils % (A) 95 %
[2016-08-16 05:59] LABS: Glucose,Whole Blood 164 mg/dL (75-99)
[2016-08-16 06:21] LABS: Anisocytosis Slight; Basophils % (A) 0 %; Eosinophils # (A) 0.1 k/uL (0-0.7); Eosinophils % (A) 0 %; HCT 25.2 % (34.0-46.0); HDW 3.25; HGB 7.9 gm/dL (11.4-16.0); Hypochromasia Marked; Luc # (Auto) 0.19; Luc % (Auto) 1; Lymphocytes # (A) 0.7 k/uL (1.0-4.8); Lymphocytes % (A) 2 %; MCH 30.7 pg (25.0-35.0); MCHC 31.5 g/dL (31.0-37.0); MCV 97.7 fL (80.0-100.0); Macrocytosis Slight; Mean Platelet Volume 7.8; Monocytes # (A) 0.7 k/uL (0-1.0); Monocytes % (A) 2 %; Neutrophils % (A) 95 %; RBC 2.58 m/uL (3.80-5.40); WBC (Perox) 31.38
[2016-08-16 06:25] LABS: INR 1.8 (<1.1); Prothrombin Time 17.8 sec (9.0-12.0)
[2016-08-16 06:29] LABS: WBC 29.6 k/uL (3.8-10.6)
[2016-08-16] MEDS: FERROUS SULFATE 325 MG TAB PO SCH (06:32)
[2016-08-16] MEDS: INSULIN LISPRO (humaLOG) 300 UNIT/3 ML VIAL SQ SCH ×2 (06:32→11:58)
[2016-08-16 06:37] LABS: Calcium 8.1 mg/dL (8.4-10.2); Potassium 4.3 mmol/L (3.5-5.1); Total Bilirubin 0.3 mg/dL (0.2-1.3); Total Protein 4.4 g/dL (6.3-8.2)
[2016-08-16] MEDS: IPRATROPIUM-ALBUTEROL 3 ML NEB INHALATION SCH ×3 (07:55→16:04)
[2016-08-16] MEDS: BUDESONIDE 1 MG/2 ML NEBU INHALATION SCH (07:55)
[2016-08-16 07:56] VITALS: TEMP 98
[2016-08-16] MEDS: DOCUSATE 100 MG CAP PO SCH (07:57)
[2016-08-16] MEDS: FUROSEMIDE 40 MG TAB PO SCH (07:57)
[2016-08-16] MEDS: SPIRONOLACTONE 25 MG TAB PO SCH (07:58)
[2016-08-16] MEDS: PANTOPRAZOLE 40 MG TABLET PO SCH (07:58)
[2016-08-16] MEDS: METOPROLOL SUCCINATE (ER) 100 MG TAB.ER.24H PO SCH (07:58)
[2016-08-16] MEDS: guaiFENesin 600 MG TABLET.ER PO SCH (07:59)
[2016-08-16] MEDS: ALLOPURINOL 100 MG TAB PO SCH (07:59)
[2016-08-16] MEDS: LOSARTAN 25 MG TAB PO SCH (07:59)
[2016-08-16] MEDS: LINEZOLID 600 MG TAB PO SCH (08:00)
[2016-08-16] MEDS: HYDROmorphone 1 MG/ML 1 ML SYRINGE IV PRN (08:00)
[2016-08-16] MEDS: Acetaminophen-Codeine 300-30mg TAB PO PRN (08:11)
[2016-08-16] MEDS: INSULIN DETEMIR 100 UNIT/ML 10 ML VIAL SQ SCH (08:12)
[2016-08-16] MEDS: ALPRAZolam 0.25 MG TAB PO SCH ×2 (08:14→15:11)
--- NOTE | 2016-08-16 09:20 | XR ---
EXAMINATION TYPE: XR chest 2V DATE OF EXAM: 08/16/2016 COMPARISON: Prior chest x-ray 08/11/2016 HISTORY: Possible aspiration, abnormal chest x-ray TECHNIQUE: Frontal and lateral views of the chest are obtained. FINDINGS: Bilateral airspace disease is present in the lower lobes has progressed in the right lower lobe. No evident pneumothorax. No definite effusion. Thoracic cord stimulation device is present at the midthoracic level. Heart is enlarged. Patient is rotated. There are overlying cardiac leads. IMPRESSION: Correlate for bilateral pneumonia. Progression prior exam, follow-up is recommended. Darcy pect cardiomegaly.
[2016-08-16 11:13] VITALS: BP 123/60; RESP 17
[2016-08-16 12:04] LABS: Glucose,Whole Blood 182 mg/dL (75-99)
[2016-08-16 12:09] VITALS: PULSE 101
--- NOTE | 2016-08-16 13:12 | P.DS ---
Providers Date of admission: 08/04/16 18:32 Expected date of discharge: 08/16/16 Attending physician: Elda Parrish Consults: 08/05/16 10:41 Consult Physician Routine Consulting Provider: Mark Contreras Consult Reason/Comments: CHF exacerbation Do you want consulting provider notified?: Yes 08/05/16 13:47 Consult Physician Stat Consulting Provider: Mohan Wild Consult Reason/Comments: positive blood cultures Do you want consulting provider notified?: Yes Primary care physician: Maria Luisa Bland Hospital Course: Discharge diagnosis 1. Acute on chronic anemia. Stool for occult blood positive. EGD in February 2016 was negative. Patient was unable to tolerate colonoscopy in April secondary to Patient's during her hospitalization. GI service was consulted to evaluate patient for possible colonoscopy. At this time there is no scheduled for colonoscopy due to patient's respiratory status. Patient is hesitant to proceed with procedure. Iron deficiency anemia continue with her ferrous sulfate. 2. Acute blood loss anemia with stool positive occult blood. Likely related to the coagulopathy. Patient did require blood transfusions. Hemoglobin 7.9 at discharge 3. Acute on chronic systolic CHF exacerbation: Echo from April 2016 shows an EF of 40-45%. Patient had elevated BNP on admission and chest x-ray showing evidence of congestive heart failure with patchy atelectasis. Cardiology following. Patient received IV Lasix. Currently on oral Lasix 4. UTI: With recent urine culture growing Enterobacter Colace and Pseudomonas aeruginosa. Patient had been on Levaquin outpatient. Repeat urine culture growing Gabriela glabrata. Per infectious disease does not require an antifungal treatment. Patient is asymptomatic. Infectious diseases discontinued the Levaquin 5. MRSA bacterial pneumonia completed vancomycin treatment 6. Chronic atrial fibrillation: Fluctuating INR. INR at discharge 1.8 7. Coagulopathy on admission with an INR of 7.2. Patient did receive vitamin K. Monitor daily PT/INR's 8. Atelectasis noted on chest x-ray: Add incentive spirometer. also will resume patient's flutter valve 9. Essential hypertension: Elevated blood pressures. Resume blood pressure medications also she was started on IV Lasix. Continue to monitor 10. Ischemia of the left leg status post thrombectomy with Dr. García. Patient requiring anticoagulation 11. History of COPD. Appears stable. Only had 2 more days of prednisone taper. Patient is not wheezing. We'll add nebulizer treatments 4 times a day and as needed 12. Diabetes mellitus type 2: Blood sugars are still elevated. Increase the Levemir to 35 units in the morning and continue 10 units at bedtime 13. Bacteremia: Blood cultures growing VRE. Infectious disease following. PICC line removed. PICC line culture tip growing quite is negative staph. Repeat blood cultures since PICC line removed have been negative. Patient currently on Zyvox. Infectious disease following 14. Severe protein calorie malnutrition start Glucerna shakes. Patient will be given a dose of IV albumin 15. Likely an aspiration pneumonia: Difficulty with swallowing questionable aspiration. Chest x-ray reports correlate for bilateral pneumonia. Patient did start having fevers last night of her 0.9. White count 29.6 and lactic acid elevated at 6.9 Hospital course This is a 76-year-old female with a known past medical history of chronic atrial fibrillation, CHF, diabetes mellitus type 2, anemia, COPD, left leg ischemia requiring thrombectomy. Patient was discharged from [facility] on 07/29/2016 at that time she was treated for MRSA pneumonia, UTI, COPD exacerbation and CHF exacerbation. Patient has been residing at [facility]. She presents back to the hospital with an INR of 7.2. She had no active signs of bleeding. However hemoglobin was 6.9 and stool for occult blood was positive. She did receive 1 unit of blood hemoglobin is at 8.0. Patient is been followed closely by both infectious disease and cardiology. She is treated for an acute CHF exacerbation as well as a bacteremia. Blood cultures had grown VRE. The source was felt to be the PICC line. This was removed and repeat blood cultures were negative. Patient is been maintained on Zyvox. She also switched over to Over to oral Lasix over the weekend by cardiology. However, patient's overall prognosis is very poor and guarded. Her symptoms again continued to worsen. Patient was also seen by GI service during this admission regards to her GI bleed. Again patient was not a good candidate to proceed with a colonoscopy due to her respiratory status from her congestive heart failure. She also requires anticoagulation due to ischemia of the left leg and had required thrombectomy in the past. As well as she has a history of atrial fibrillation. Patient did complete treatment for her MRSA bacterial pneumonia and her UTI. However, patient's symptoms did not show improvement. It appears yesterday she was having some difficulty with swallowing had a choking episode. Her white counts did shoot back up to 33.2 she was having low-grade fevers as 100.9. Again there were concerns about fluid overload and she required another extra dose of IV Lasix. Chest x-ray done this morning had shown bilateral pneumonia. Likely patient is now aspirating. Patient's symptoms continued to worsen even after treatment. Case was discussed with patient's daughter, the power of workers compensation attorney. She also discussed with the other siblings. And they have decided to proceed with comfort care for their mother. Therefore, patient will be discharged home with hospice. We will continue a lot of her current medications for symptomatic treatment. Please refer to discharge medication list. As well as will add the Roxanol, Ativan and scopolamine patch for the hospice meds. Patient will be discharged home with hospice. Please refer to chart for any further details Patient Condition at Discharge: Stable Plan - Discharge Summary New Discharge Prescriptions: New Furosemide [Lasix] 40 mg PO BID@0900,1600 #60 tab LORazepam [Ativan] 1 mg PO TID PRN #42 tab PRN Reason: Anxiety Losartan [Cozaar] 25 mg PO DAILY #30 tab Metoprolol Succinate (ER) [Toprol XL] 100 mg PO BID #60 tab MORPHINE ORAL SOLN 20mg/mL [Roxanol Oral Soln Conc 20MG/ML] 5 mg PO Q4H PRN # 60 ml PRN Reason: Pain Scopolamine [TransDerm Scop] 1 patch TRANSDERM Q72H #10 patch Spironolactone [Aldactone] 25 mg PO DAILY #30 tab Continue Montelukast Sodium [Singulair] 10 mg PO HS Ipratropium-Albuterol Nebulize [Duoneb 0.5 mg-3 mg/3 ml Soln] 3 ml INHALATION RT-QID ampul.neb Docusate [Colace] 100 mg PO BID cap Polyethylene Glycol 3350 [Miralax] 17 gm PO HS powd.pack Budesonide [Pulmicort] 1 mg INHALATION RT-BID Insulin Detemir [Levemir] 10 unit SQ HS Allopurinol [Zyloprim] 100 mg PO DAILY tab guaiFENesin [Mucinex] 1,200 mg PO Q12HR #14 tab Magnesium Hydroxide [Milk of Magnesia Concentrate] 2,400 mg PO Q72H PRN PRN Reason: Constipation INSULIN LISPRO (humaLOG) [humaLOG (formulary)] See Protocol SQ ACHS Insulin Detemir [Levemir] 30 unit SQ QAM Promethazine HCl 12.5 mg PO Q6H PRN PRN Reason: Nausea Discontinued Pravastatin Sodium [Pravachol] 20 mg PO HS Metoprolol Succinate [Toprol XL] 200 mg PO BID Losartan Potassium [Cozaar] 50 mg PO HS Digoxin [Lanoxin] 125 mcg PO DAILY tab Ferrous Sulfate [Iron (65 MG Elemental)] 325 mg PO BID tab Furosemide [Lasix] 40 mg PO DAILY INSULIN LISPRO (humaLOG) [humaLOG (formulary)] 10 unit SQ AC-BRKFST Levofloxacin [Levaquin] 750 mg PO Q48H #4 tab ALPRAZolam [Xanax] 0.25 mg PO Q12HR #60 HYDROcodone/APAP 10-325MG [[place] 10-325] 1 tab PO Q4HR PRN #60 tab PRN Reason: Pain Warfarin Sodium [Coumadin] 2 mg PO DAILY #30 tablet Vancomycin 1,250 mg IVPB HS predniSONE See Taper PO DAILY Discharge Medication List Montelukast Sodium [Singulair] 10 mg PO HS 04/27/16 [History] Ipratropium-Albuterol Nebulize [Duoneb 0.5 mg-3 mg/3 ml Soln] 3 ml INHALATION RT -QID ampul.neb 05/13/16 [Rx] Docusate [Colace] 100 mg PO BID cap 06/18/16 [Rx] Polyethylene Glycol 3350 [Miralax] 17 gm PO HS powd.pack 06/18/16 [Rx] Budesonide [Pulmicort] 1 mg INHALATION RT-BID 07/13/16 [History] Insulin Detemir [Levemir] 10 unit SQ HS 07/13/16 [History] Allopurinol [Zyloprim] 100 mg PO DAILY tab 07/29/16 [Rx] guaiFENesin [Mucinex] 1,200 mg PO Q12HR #14 tab 07/29/16 [Rx] INSULIN LISPRO (humaLOG) [humaLOG (formulary)] See Protocol SQ ACHS 08/04/16 [ History] Insulin Detemir [Levemir] 30 unit SQ QAM 08/04/16 [History] Magnesium Hydroxide [Milk of Magnesia Concentrate] 2,400 mg PO Q72H PRN [History] Promethazine HCl 12.5 mg PO Q6H PRN 08/04/16 [History] Furosemide [Lasix] 40 mg PO BID@0900,1600 #60 tab 08/16/16 [Rx] LORazepam [Ativan] 1 mg PO TID PRN #42 tab 08/16/16 [Rx] Losartan [Cozaar] 25 mg PO DAILY #30 tab 08/16/16 [Rx] MORPHINE ORAL SOLN 20mg/mL [Roxanol Oral Soln Conc 20MG/ML] 5 mg PO Q4H PRN #60 ml 08/16/16 [Rx] Metoprolol Succinate (ER) [Toprol XL] 100 mg PO BID #60 tab 08/16/16 [Rx] Scopolamine [TransDerm Scop] 1 patch TRANSDERM Q72H #10 patch 08/16/16 [Rx] Spironolactone [Aldactone] 25 mg PO DAILY #30 tab 08/16/16 [Rx] Follow up Appointment(s)/Referral(s): Maria Luisa Bland MD [Primary Care Provider] - 1 Week Activity/Diet/Wound Care/Special Instructions: Diet: diabetic, cardiac Patient discharged home with hospice Discharge Disposition: HOME WITH HOSPICE
[2016-08-16 14:52] VITALS: BMI 36.9
--- NOTE | 2016-08-16 15:41 | P.PN ---
Subjective Principal diagnosis: CHF This is a 76-year-old female with history of chronic persistent atrial fibrillation, GI bleeding, embolic phenomenon to her lower extremities, diabetes , hyperlipidemia, who was admitted to the hospital initially because of elevated INR. She resides at a long term. Patient was also found to be in congestive cardiac failure and diuresed with IV Lasix. Currently on by mouth Lasix. Being discharged to hospice today. Objective - Vital Signs Vital signs: Vital Signs Temp 98 F 08/16/16 07:55 Pulse 101 H 08/16/16 12:09 Resp 17 08/16/16 11:11 BP 123/60 08/16/16 11:11 Pulse Ox 93 L 08/16/16 11:11 Intake & Output 08/15/16 08/16/16 08/16/16 18:59 06:59 18:59 Intake Total 520 100 Output Total 700 Balance 520 -700 100 Weight 113.5 kg 113.5 kg Intake: IV 320 0.9 320 Oral 200 100 Output: Urine 700 Other: Voiding Method Indwelling Catheter Indwelling Catheter Indwelling Catheter # Bowel Movements 1 - Exam PHYSICAL EXAMINATION: HEENT: Head is atraumatic, normocephalic. Pupils equal, round. Neck is supple. There is no elevated jugular venous pressure. HEART EXAMINATION: Heart S1 and S2 irregularly irregular a systolic murmur is heard. CHEST EXAMINATION: Lungs reveal coarse scattered rhonchi throughout ABDOMEN: Soft, obese, nontender. Bowel sounds are heard. No organomegaly noted. EXTREMITIES: 1+ peripheral pulses with trace evidence of peripheral edema and no calf tenderness noted. NEUROLOGIC patient is awake, alert and oriented -3. . - Labs CBC & Chem 7: 08/16/16 05:59 08/16/16 05:59 Labs: Abnormal Lab Results - Last 24 Hours (Table) 08/15/16 08/15/16 08/15/16 Range/Units 17:10 20:59 22:57 WBC 33.2 H* (3.8-10.6) k/uL RBC 2.86 L (3.80-5.40) m/uL Hgb 8.4 L (11.4-16.0) gm/dL Hct 28.6 L (34.0-46.0) % MCHC 29.2 L (31.0-37.0) g/dL RDW 17.8 H (11.5-15.5) % Neutrophils # 31.7 H (1.3-7.7) k/uL Lymphocytes # 0.4 L (1.0-4.8) k/uL PT (9.0-12.0) sec Sodium (137-145) mmol/L Carbon Dioxide (22-30) mmol/L BUN (7-17) mg/dL Creatinine (0.52-1.04) mg/dL Glucose (74-99) mg/dL POC Glucose (mg/dL) 184 H 207 H (75-99) mg/dL Plasma Lactic Acid Good (0.7-2.0) mmol/L Calcium (8.4-10.2) mg/dL Total Protein (6.3-8.2) g/dL Albumin (3.5-5.0) g/dL 08/15/16 08/15/16 08/16/16 Range/Units 22:57 22:57 05:57 WBC (3.8-10.6) k/uL RBC (3.80-5.40) m/uL Hgb (11.4-16.0) gm/dL Hct (34.0-46.0) % MCHC (31.0-37.0) g/dL RDW (11.5-15.5) % Neutrophils # (1.3-7.7) k/uL Lymphocytes # (1.0-4.8) k/uL PT (9.0-12.0) sec Sodium 135 L (137-145) mmol/L Carbon Dioxide 18 L (22-30) mmol/L BUN 47 H (7-17) mg/dL Creatinine 1.20 H (0.52-1.04) mg/dL Glucose 180 H (74-99) mg/dL POC Glucose (mg/dL) 164 H (75-99) mg/dL Plasma Lactic Acid Good 6.4 H* (0.7-2.0) mmol/L Calcium 8.1 L (8.4-10.2) mg/dL Total Protein (6.3-8.2) g/dL Albumin (3.5-5.0) g/dL 08/16/16 08/16/16 08/16/16 Range/Units 05:59 05:59 05:59 WBC 29.6 H* (3.8-10.6) k/uL RBC 2.58 L (3.80-5.40) m/uL Hgb 7.9 L (11.4-16.0) gm/dL Hct 25.2 L (34.0-46.0) % MCHC (31.0-37.0) g/dL RDW 18.0 H (11.5-15.5) % Neutrophils # 28.0 H (1.3-7.7) k/uL Lymphocytes # 0.7 L (1.0-4.8) k/uL PT 17.8 H (9.0-12.0) sec Sodium 134 L (137-145) mmol/L Carbon Dioxide 19 L (22-30) mmol/L BUN 53 H (7-17) mg/dL Creatinine 1.20 H (0.52-1.04) mg/dL Glucose 148 H (74-99) mg/dL POC Glucose (mg/dL) (75-99) mg/dL Plasma Lactic Acid Good (0.7-2.0) mmol/L Calcium 8.1 L (8.4-10.2) mg/dL Total Protein 4.4 L (6.3-8.2) g/dL Albumin 2.1 L (3.5-5.0) g/dL 08/16/16 Range/Units 11:56 WBC (3.8-10.6) k/uL RBC (3.80-5.40) m/uL Hgb (11.4-16.0) gm/dL Hct (34.0-46.0) % MCHC (31.0-37.0) g/dL RDW (11.5-15.5) % Neutrophils # (1.3-7.7) k/uL Lymphocytes # (1.0-4.8) k/uL PT (9.0-12.0) sec Sodium (137-145) mmol/L Carbon Dioxide (22-30) mmol/L BUN (7-17) mg/dL Creatinine (0.52-1.04) mg/dL Glucose (74-99) mg/dL POC Glucose (mg/dL) 182 H (75-99) mg/dL Plasma Lactic Acid Good (0.7-2.0) mmol/L Calcium (8.4-10.2) mg/dL Total Protein (6.3-8.2) g/dL Albumin (3.5-5.0) g/dL Assessment and Plan (1) Chronic a-fib Status: Acute (2) GI bleed Status: Acute (3) Morbid obesity Status: Acute (4) Embolic phenomenon secondary to atrial fibrillation Status: Acute (5) Elevated INR Status: Acute (6) Systolic CHF, acute on chronic Status: Acute Plan: From cardiology's perspective, we will continue current medication. Arrangements are being made for possible transferred to hospice today.. DNP note has been reviewed, I agree with a documented findings and plan of care. Patient was seen and examined.
--- NOTE | 2016-08-17 14:58 | CDI ---
In responding to this query, please exercise your independent professional judgment. The [facility] Coding Staff and Clinical Documentation Specialists appreciate your assistance in clarifying documentation, maintaining compliance with coding guidelines, accurately documenting patients condition and capturing severity of illness. The fact that a question is asked does not imply that any particular answer is desired or expected. Communication forms are a method of clarifying documentation and are not made part of the Legal Health Record. Thank you in advance for your clarification. Last Revision, December [address] [facility] [facility] [place] [address] Documentation Clarification Form Date: 08/17/2016 2:47:00 PM From: Bethany Castrejon Admit Date: 08/04/2016 6:32:00 PM Patient Name: Maria De Jesus Bui Visit Number: [id number] Discharge Date: 08/16/16 Dr. Elda Parrish or Tia Gonzalez Documentation of Enterococcus faecium VRE sepsis was documented in the progress notes. Presenting symptoms: ABLA & iron deficiency anemia, ongoing MRSA pneumonia,Ac on chr diastolic CHF Clinical Indicators: Lab findings: on admission - neutrophils (H) 8.9, P- 90 & 92, RR - 26. Lactic acid 1.6 on admission and on 08/15 to 6.4. Blood cultures drawn on admission grew Enterocococcus faecium VRE. Treatment: Consults: IV antibiotics changed to Zyvox The patients principal diagnosis has not been clearly identified and requires clarification. In your professional opinion, can you please clarify which diagnosis, after study, accounted for the patients presenting symptoms and was the reason chiefly responsible for the admission? Acute blood loss anemia due to coagulopathy MRSA pneumonia with COPD Enterococcus faecium VRE sepsis Please document in your discharge summary in order to capture severity of illness and risk of mortality. Include clinical findings that support your diagnosis. FYI: Press F11 to launch patient chart. Place X here if this finding has no clinical significance, is not applicable or if you are not able to provide any additional documentation. WHIT Mansfield, CCS, [facility] Certified [employer] Fundraising Manager/Vacuum System Tester/Fundraising Manager II If you have any questions or concerns please contact Patricia Lamas, [employer] Machine Operator, Sophie Soriano @ [phone] [facility]
== END 2016-08-16 16:23 | disposition hospice, home (50) | DRG 811 ==
LOC: EC 16:47 → 6SEL 18:32
PROVIDERS: ADMIT Internal Medicine; ATTEND Internal Medicine
PROC: 30233N1 Transfusion of Nonautologous Red Blood Cells into Peripheral Vein, Percutaneous Approach (ICD-10-PCS; 2016-08-04)
PROC: 3E03328 Introduction of Oxazolidinones into Peripheral Vein, Percutaneous Approach (ICD-10-PCS; principal; 2016-08-06)
DX: D62 Acute posthemorrhagic anemia (principal); A41.81 Sepsis due to Enterococcus; J69.0 Pneumonitis due to inhalation of food and vomit; E43 Unspecified severe protein-calorie malnutrition; I50.23 Acute on chronic systolic (congestive) heart failure; E11.65 Type 2 diabetes mellitus with hyperglycemia; I48.1 Persistent atrial fibrillation; J15.212 Pneumonia due to Methicillin resistant Staphylococcus aureus; N39.0 Urinary tract infection, site not specified; E87.1 Hypo-osmolality and hyponatremia; J44.0 Chronic obstructive pulmonary disease with (acute) lower respiratory infection; J98.11 Atelectasis; Z68.41 Body mass index [BMI] 40.0-44.9, adult; K92.1 Melena; Z51.5 Encounter for palliative care; E66.01 Morbid (severe) obesity due to excess calories; I11.0 Hypertensive heart disease with heart failure; Z99.81 Dependence on supplemental oxygen; D50.0 Iron deficiency anemia secondary to blood loss (chronic); E78.5 Hyperlipidemia, unspecified; B96.5 Pseudomonas (aeruginosa) (mallei) (pseudomallei) as the cause of diseases classified elsewhere; B96.89 Other specified bacterial agents as the cause of diseases classified elsewhere; T45.515A Adverse effect of anticoagulants, initial encounter; I99.8 Other disorder of circulatory system; G47.30 Sleep apnea, unspecified; Z16.21 Resistance to vancomycin; Z87.891 Personal history of nicotine dependence; Z86.73 Personal history of transient ischemic attack (TIA), and cerebral infarction without residual deficits; Z85.820 Personal history of malignant melanoma of skin; Z79.51 Long term (current) use of inhaled steroids; Z79.52 Long term (current) use of systemic steroids; Z79.4 Long term (current) use of insulin; Z79.01 Long term (current) use of anticoagulants; Z79.899 Other long term (current) drug therapy; Z88.0 Allergy status to penicillin
CPT/HCPCS: 36415; 36430; 71010; 71020; 80048; 80053; 80162; 80202; 81001; 82272; 82550; 82553; 83036; 83605; 83735; 83880; 84484; 85025; 85610; 85730; 86850; 86900; 86901; 86920; 87040; 87070; 87077; 87086; 87186; 87205; 93005; 94640; 94660; 94667; 94760; 96361; 96365; 96375; 99285